=== PATIENT | male | born 1950 | race African-American/Black ===

== ENCOUNTER 2019-12-07 06:40 | Inpatient (IN) | payer OTHER ==
[2019-12-07] MEDS ORDERED: METOPROLOL TARTRATE 5 MG/5 ML INJ IV ONE ×2 (07:28→07:39)
[2019-12-07] MEDS ORDERED: NA CHLORIDE 0.9% 1,000 ML ONE (07:28)
[2019-12-07 07:43] LABS: Protime INR 1.02
[2019-12-07 07:48] LABS: Absolute Lymphocytes (CBC) 2.4 K/uL (0.7-4.9); Basophils % 1.2 % (0-1.3); Hematocrit 48.4 % (39.6-49.0); Lymphocytes % 32.2 % (15.3-44.8); MPV 10.1 fL (7.6-11.3); RBC Red Blood Cell Count 5.68 M/uL (4.33-5.43)
[2019-12-07] MEDS ORDERED: METOPROLOL TAR 50 MG TAB ONE (07:56)
[2019-12-07] MEDS ORDERED: ONDANSETRON 4 MG/2 ML VIAL ONE (07:57)
[2019-12-07] MEDS ORDERED: FENTANYL CITR 100 MCG/2 ML ONE (07:57)
[2019-12-07 08:00] LABS: Albumin 3.4 g/dL (3.4-5.0); Bilirubin Direct 0.1 mg/dL (0-0.2); Bilirubin Total 0.3 mg/dL (0.2-1.0); Magnesium 1.9 mg/dL (1.8-2.4); Potassium 3.7 mmol/L (3.5-5.1); Protein, Total 8.7 g/dL (6.4-8.2); Troponin (Emerg Dept Use Only) 0.26 ng/mL (0.0-0.045)
--- NOTE | 2019-12-07 08:48 | ER ---
Nurse's Notes [facility] Name: Julianna Kearns Age: 69 yrs Sex: Male : 1950 Arrival Date: 12/07/2019 Time: 06:43 Bed 6 Private MD: Bassam Donis E Diagnosis: Atrial fibrillation and flutter-atrial fibrilation with rapid ventricular response;Elevated troponin Presentation: 12/06 06:51 Chief complaint: Patient states: on and off, dull chest pain 10/10, since 3am with rv sweating. denies SOB, headache. took two adult Aspirins. Coronavirus screen: The patient has NOT traveled to a country currently being monitored by the [facility] within the last 14 days. Proceed with normal triage procedures. The patient has NOT had contact with any known and/or suspected case of coronavirus. Proceed with normal triage procedures. Ebola Screen: No symptoms or risks identified at this time. Initial Sepsis Screen: Does the patient meet any 2 criteria? No. Patient's initial sepsis screen is negative. Does the patient have a suspected source of infection? No. Patient's initial sepsis screen is negative. Risk Assessment: Do you want to hurt yourself or someone else? Patient reports no desire to harm self or others. 06:51 Method Of Arrival: Ambulatory rv 06:51 Acuity: VERONICA 3 rv 07:07 Onset of symptoms was December 06, 2019. rb1 Triage Assessment: 07:00 General: Appears in no apparent distress. comfortable, Behavior is calm, cooperative, bp appropriate for age. Pain: Denies pain. EENT: No deficits noted. Neuro: No deficits noted. Cardiovascular: Rhythm is atrial fibrillation with rapid ventricular response. Respiratory: No deficits noted. GI: No signs and/or symptoms were reported involving the gastrointestinal system. : No signs and/or symptoms were reported regarding the genitourinary system. Derm: No deficits noted. Musculoskeletal: No deficits noted. Historical: - Allergies: 06:54 PENICILLINS; rv - Home Meds: 07:42 carvedilol 25 mg oral tab 1 tab 2 times per day [Active]; empagliflozin oral 25 MG oral bp 0.5 tab once daily [Active]; glipizide 10 mg Oral tab 1 tab 2 times per day [Active]; Insulin Glargine 100 UNIT/ML Sub-Q 70 UNIT twice a day [Active]; losartan 50 mg oral tab 1 tab once daily [Active]; spironolactone 50 mg Oral tab 1 tab once daily [Active]; alprazolam 1 mg Oral Tb24 1 tab once daily [Active]; hydrochlorothiazide 25 mg Oral tab 1 tab once daily [Active]; rivaroxaban oral 20 MG oral 1 tab once daily [Active]; rosuvastatin 20 mg oral tab 0.5 tab once daily [Active]; - PMHx: 06:54 Hypertension; Atrial Fib; Diabetes - NIDDM; rv - PSHx: 06:54 None; rv - Immunization history:: Adult Immunizations up to date. - Social history:: Smoking status: Patient/guardian denies using tobacco, the patient reports quitting approximately 15 years ago. Screenin:00 Abuse screen: Denies threats or abuse. Denies injuries from another. Nutritional bp screening: No deficits noted. Tuberculosis screening: No symptoms or risk factors identified. Fall Risk None identified. Assessment: 07:00 General: SEE TRIAGE NOTE. Pain: Complains of pain in chest Pain does not radiate. Pain bp currently is 8 out of 10 on a pain scale. Pain began 1 day ago. 07:07 General: Appears in no apparent distress. comfortable, Behavior is calm, cooperative. rb1 Pain: Complains of pain in mid-sternal area Pain does not radiate. Pain currently is 8 out of 10 on a pain scale. Quality of pain is described as dull, Pain began 1 day ago. Neuro: Level of Consciousness is awake, alert, obeys commands, Oriented to person, place, time, situation. Neuro: Denies blurred vision dizziness, headache. Cardiovascular: Capillary refill < 3 seconds is brisk in bilateral fingers Rhythm is atrial fibrillation with rapid ventricular response. Respiratory: Airway is patent Respiratory effort is even, unlabored, Respiratory pattern is regular, symmetrical, Denies cough, shortness of breath. GI: No signs and/or symptoms were reported involving the gastrointestinal system. : No signs and/or symptoms were reported regarding the genitourinary system. Derm: Skin is dry, Skin is normal, Skin temperature is warm. 08:00 Reassessment: Patient appears in no apparent distress at this time. No changes from rb1 previously documented assessment. Family at the bedside. 09:00 Reassessment: Patient appears in no apparent distress at this time. Patient and/or rb1 family updated on plan of care and expected duration. Pain level reassessed. Patient is alert, oriented x 3, equal unlabored respirations, skin warm/dry/pink. Patient states feeling better. Patient states symptoms have improved. 09:08 Reassessment: Dr. Huston is at the pt. bedside. rb1 10:20 Reassessment: Tried to call report but was unable to at this time. They will call back rb1 for report when they find out what nurse is getting the pt. 10:50 Reassessment: Patient appears in no apparent distress at this time. Patient and/or rb1 family updated on plan of care and expected duration. Pain level reassessed. Patient is alert, oriented x 3, equal unlabored respirations, skin warm/dry/pink. Vital Signs: 06:55 BP 158 / 114; Pulse 140; Resp 19; Temp 97; Pulse Ox 100% ; Weight 96.16 kg; Height 6 rv ft. (182.88 cm); Pain 10/10; 07:30 BP 156 / 111; Pulse 141; Resp 20; Pulse Ox 99% ; bp 07:42 BP 154 / 94; Pulse 133; Resp 21; Pulse Ox 99% on R/A; rb1 08:00 BP 162 / 111; Pulse 130; Resp 20; Pulse Ox 99% on R/A; Pain 8/10; rb1 08:30 BP 126 / 90; Pulse 123; Resp 13; Pulse Ox 95% on R/A; rb1 09:00 BP 110 / 77; Pulse 128; Resp 18; Pulse Ox 96% on R/A; rb1 10:00 BP 133 / 94; Pulse 133; Resp 18; Pulse Ox 95% on R/A; rb1 10:43 BP 132 / 98; Pulse 130; Resp 18; Pulse Ox 95% on R/A; rb1 06:55 Body Mass Index 28.75 (96.16 kg, 182.88 cm) rv ED Course: 06:43 Patient arrived in ED. es 06:43 Bassam Donis MD is Private Physician. es 06:49 [facility] pm1 06:49 Teodoro Sommer MD is Attending Physician. pm1 06:53 Triage completed. rv 06:55 Arm band placed on Patient placed in the treatment room, on a stretcher, on cardiac rv monitor, on pulse oximetry, Patient notified of wait time. 06:56 EKG done, by ED staff, reviewed by Berry Almaraz NP. rv 07:00 Patient has correct armband on for positive identification. Bed in low position. Call bp light in reach. Side rails up X2. Adult w/ patient. quality assurance monitor final on. Pulse ox on. NIBP on. 07:21 Lydia Harding, RN is Primary Nurse. rb1 07:30 Inserted saline lock: 20 gauge in right forearm, using aseptic technique. Patient bp maintains SpO2 saturation greater than 95% on room air. 07:43 XRAY Chest (1 view) In Process Unspecified. EDMS 08:44 Inocencio Parkinson MD is Hospitalizing Provider. pm1 10:58 No provider procedures requiring assistance completed. Patient admitted, IV remains in rb1 place. Administered Medications: 07:31 Drug: NS 0.9% 1000 ml Route: IV; Rate: 1000 ml; Site: right wrist; rb1 08:43 Follow up: IV Status: Completed infusion rb1 07:31 Drug: Metoprolol 5 mg Route: IVP; Site: right wrist; rb1 07:36 Drug: Metoprolol 5 mg Route: IVP; Site: right wrist; rb1 07:42 Drug: Metoprolol 5 mg Route: IVP; Site: right wrist; rb1 08:24 Follow up: Response: No adverse reaction; decreased [id number]'s -140's rb1 07:55 Drug: Zofran (Ondansetron) 4 mg Route: IVP; Site: right wrist; rb1 08:10 Follow up: Response: No adverse reaction rb1 07:55 Drug: Metoprolol TARTRATE (Lopressor) 50 mg Route: PO; rb1 08:23 Follow up: Response: No adverse reaction rb1 08:00 Drug: fentaNYL (PF) 25 mcg Route: IVP; Site: right wrist; rb1 08:15 Follow up: Response: No adverse reaction; Pain is decreased; Pain 01/09 rb1 08:02 Not Given (provider changed order): fentaNYL (PF) 50 mcg IVP once; RASS on ADMIN: rb1 Combtv4, Very Agttd3, Agttd2, Rstlss1, AlertClm0, Drwsy-1, Lt Sdtn-2, Mod Sdtn-3, Dp Sdtn-4, UnArsble-5 08:22 Drug: fentaNYL (PF) 25 mcg Route: IVP; Site: right wrist; rb1 08:36 Follow up: Response: No adverse reaction; Pain is decreased rb1 Intake: Outcome: 08:48 Decision to Hospitalize by Provider. pm1 10:58 Patient left the ED. rb1 10:58 Admitted to Tele accompanied by tech, via stretcher, room 413, with chart, Report rb1 called to ERICA Acosta 10:58 Condition: stable 10:58 Instructed on the need for admit. Signatures: Dispatcher [employer] EDMS Alysia Delcid Rebecca, RN RN rb1 Berry Almaraz NP [employer] pm1 Stephen Silva RN RN bp Linden Rajan, RN RN rv Corrections: (The following items were deleted from the chart) 10:34 10:20 Reassessment: Tried to call report but was unable to at this time. rb1 rb1 11:16 11:13 Patient left the ED. rb1 rb1
--- NOTE | 2019-12-07 08:48 | EDPHYS ---
Physician Documentation [facility] Name: Julianna Kearns Age: 69 yrs Sex: Male : 1950 Arrival Date: 12/07/2019 Time: 06:43 Bed 6 Private MD: Bassam Donis E ED Physician Teodoro Sommer HPI: 12/06 07:44 This 69 yrs old Black Male presents to ER via Ambulatory with complaints of Chest Pain. pm1 07:44 The patient or guardian reports chest pain that is located primarily in the mid-sternal pm1 area. Onset: this morning, at 03:00. The pain radiates to back. Associated signs and symptoms: Pertinent positives: diaphoresis, Pertinent negatives: abdominal pain, cough, dizziness, nausea, palpitations, shortness of breath, vomiting. The chest pain is described as dull. Duration: The patient or guardian reports a single episode, that is still ongoing. Modifying factors: the symptoms are aggravated by exertion. Severity of pain: in the emergency department the pain is a 8 / 10. The patient has experienced similar episodes in the past, reports a history of "angina" that he attributes to cold weather and exertion that typically resolves with rest. His symptoms feel like his "angina" but it did not go away. Historical: - Allergies: 06:54 PENICILLINS; rv - Home Meds: 07:42 carvedilol 25 mg oral tab 1 tab 2 times per day [Active]; empagliflozin oral 25 MG oral bp 0.5 tab once daily [Active]; glipizide 10 mg Oral tab 1 tab 2 times per day [Active]; Insulin Glargine 100 UNIT/ML Sub-Q 70 UNIT twice a day [Active]; losartan 50 mg oral tab 1 tab once daily [Active]; spironolactone 50 mg Oral tab 1 tab once daily [Active]; alprazolam 1 mg Oral Tb24 1 tab once daily [Active]; hydrochlorothiazide 25 mg Oral tab 1 tab once daily [Active]; rivaroxaban oral 20 MG oral 1 tab once daily [Active]; rosuvastatin 20 mg oral tab 0.5 tab once daily [Active]; - PMHx: 06:54 Hypertension; Atrial Fib; Diabetes - NIDDM; rv - PSHx: 06:54 None; rv - Immunization history:: Adult Immunizations up to date. - Social history:: Smoking status: Patient/guardian denies using tobacco, the patient reports quitting approximately 15 years ago. ROS: 07:44 Constitutional: Negative for fever, chills, and weight loss. pm1 07:44 Respiratory: Negative for shortness of breath, cough, wheezing, and pleuritic chest pain, Abdomen/GI: Negative for abdominal pain, nausea, vomiting, diarrhea, and constipation. 07:44 MS/Extremity: Negative for injury and deformity, Skin: Negative for injury, rash, and discoloration. 07:44 Cardiovascular: Positive for chest pain, Negative for edema, palpitations. 07:44 Back: Positive for prior back pain that has resolved. 07:44 Neuro: Positive for headache, Negative for numbness, tingling, weakness. Exam: 07:44 Constitutional: This is a well developed, well nourished patient who is awake, alert, pm1 and in no acute distress. Head/Face: Normocephalic, atraumatic. Chest/axilla: Normal chest wall appearance and motion. Nontender with no deformity. No lesions are appreciated. Cardiovascular: Regular rate and rhythm with a normal S1 and S2. No gallops, murmurs, or rubs. No pulse deficits. Respiratory: Lungs have equal breath sounds bilaterally, clear to auscultation and percussion. No rales, rhonchi or wheezes noted. No increased work of breathing, no retractions or nasal flaring. Abdomen/GI: Soft, non-tender, with normal bowel sounds. No distension or tympany. No guarding or rebound. No evidence of tenderness throughout. Back: No spinal tenderness. No costovertebral tenderness. Full range of motion. Skin: Warm, dry with normal turgor. Normal color with no rashes, no lesions, and no evidence of cellulitis. MS/ Extremity: Pulses equal, no cyanosis. Neurovascular intact. Full, normal range of motion. 07:44 Neuro: Orientation: is normal, Mentation: is normal, Motor: is normal, moves all fours. Vital Signs: 06:55 BP 158 / 114; Pulse 140; Resp 19; Temp 97; Pulse Ox 100% ; Weight 96.16 kg; Height 6 rv ft. (182.88 cm); Pain 10/10; 07:30 BP 156 / 111; Pulse 141; Resp 20; Pulse Ox 99% ; bp 07:42 BP 154 / 94; Pulse 133; Resp 21; Pulse Ox 99% on R/A; rb1 08:00 BP 162 / 111; Pulse 130; Resp 20; Pulse Ox 99% on R/A; Pain 8/10; rb1 08:30 BP 126 / 90; Pulse 123; Resp 13; Pulse Ox 95% on R/A; rb1 09:00 BP 110 / 77; Pulse 128; Resp 18; Pulse Ox 96% on R/A; rb1 10:00 BP 133 / 94; Pulse 133; Resp 18; Pulse Ox 95% on R/A; rb1 10:43 BP 132 / 98; Pulse 130; Resp 18; Pulse Ox 95% on R/A; rb1 06:55 Body Mass Index 28.75 (96.16 kg, 182.88 cm) rv MDM: 06:49 Patient medically screened. pm1 07:49 Data reviewed: vital signs. pm1 07:49 ED course: Patient was not given ASA in the ER because he took it at home prior to pm1 arrival. Patient took 325 mg PO x 2. Patient forgot his night medications yesterday. 07:49 ED course: Patient took his own Xarelto 20 mg PO. pm1 08:09 ED course: Patient chest pain free after fentanyl. pm1 08:32 ED course: Patient currently chest pain free 0/10 after metoprolol and fentanyl given pm1 in the ER. Patient heart rate 110s to 120s with systolic blood pressure in the 130s. 08:37 Physician consultation: Inocencio Parkinson MD was called at 08:37, was contacted at 08:38, pm1 regarding admission, patient's condition, and will see patient. 08:40 Counseling: I had a detailed discussion with the patient and/or guardian regarding: the pm1 historical points, exam findings, and any diagnostic results supporting the discharge/admit diagnosis, lab results, radiology results, the need for further work-up and treatment in the hospital. 09:05 Physician consultation: Stas Huston MD in the emergency department to see patient at pm1 09:05. 12/06 06:50 Order name: Basic Metabolic Panel; Complete Time: 08:17 pm1 12/06 06:50 Order name: CBC with Diff; Complete Time: 08:17 pm1 03/07 06:50 Order name: LFT's; Complete Time: 08:17 pm1 12/06 06:50 Order name: Magnesium; Complete Time: 08:17 pm1 12/06 06:50 Order name: NT PRO-BNP; Complete Time: 08:17 pm1 12/06 06:50 Order name: PT-INR; Complete Time: 08:17 pm1 12/06 06:50 Order name: Troponin (emerg Dept Use Only); Complete Time: 08:17 pm1 12/06 06:50 Order name: XRAY Chest (1 view); Complete Time: 08:59 pm1 12/06 06:50 Order name: EKG; Complete Time: 06:51 pm1 12/06 06:50 Order name: Cardiac monitoring; Complete Time: 07:42 pm1 12/06 06:50 Order name: EKG - Nurse/Tech; Complete Time: 07:43 pm1 12/06 06:50 Order name: IV Saline Lock; Complete Time: 07:42 pm1 12/06 06:50 Order name: Labs collected and sent; Complete Time: 07:42 pm1 12/06 06:50 Order name: O2 Per Protocol; Complete Time: 07:42 pm1 12/06 06:50 Order name: O2 Sat Monitoring; Complete Time: 07:42 pm1 Administered Medications: 07:31 Drug: NS 0.9% 1000 ml Route: IV; Rate: 1000 ml; Site: right wrist; rb1 08:43 Follow up: IV Status: Completed infusion rb1 07:31 Drug: Metoprolol 5 mg Route: IVP; Site: right wrist; rb1 07:36 Drug: Metoprolol 5 mg Route: IVP; Site: right wrist; rb1 07:42 Drug: Metoprolol 5 mg Route: IVP; Site: right wrist; rb1 08:24 Follow up: Response: No adverse reaction; decreased [id number]'s -140's rb1 07:55 Drug: Zofran (Ondansetron) 4 mg Route: IVP; Site: right wrist; rb1 08:10 Follow up: Response: No adverse reaction rb1 07:55 Drug: Metoprolol TARTRATE (Lopressor) 50 mg Route: PO; rb1 08:23 Follow up: Response: No adverse reaction rb1 08:00 Drug: fentaNYL (PF) 25 mcg Route: IVP; Site: right wrist; rb1 08:15 Follow up: Response: No adverse reaction; Pain is decreased; Pain 01/09 rb1 08:02 Not Given (provider changed order): fentaNYL (PF) 50 mcg IVP once; RASS on ADMIN: rb1 Combtv4, Very Agttd3, Agttd2, Rstlss1, AlertClm0, Drwsy-1, Lt Sdtn-2, Mod Sdtn-3, Dp Sdtn-4, UnArsble-5 08:22 Drug: fentaNYL (PF) 25 mcg Route: IVP; Site: right wrist; rb1 08:36 Follow up: Response: No adverse reaction; Pain is decreased rb1 Disposition: 12/07/19 08:48 Hospitalization ordered by Inocencio Parkinson for Inpatient Admission. Preliminary diagnosis are Atrial fibrillation and flutter - atrial fibrilation with rapid ventricular response, Elevated troponin. - Bed requested for Telemetry/MedSurg (Inpatient). - Status is Inpatient Admission. rb1 - Condition is Fair. - Problem is new. - Symptoms have improved. Addendum: 12/22/2019 18:46 Co-signature as Attending Physician, Teodoro Sommer MD. p twan Signatures: Dispatcher [employer] EDMS Teodoro Sommer MD MD pkl Barber, Rebecca, ERICA RN rb1 Berry Almaraz, LUCIA MEDICAL EDITOR pm1 Stephen Silva, RN RN Brandy Elise Ronaldo, RN RN rv Corrections: (The following items were deleted from the chart) 12/06 10:00 08:48 Hospitalization Ordered by Inocencio Parkinson MD for Inpatient Admission. Preliminary eb diagnosis is Atrial fibrillation and flutter - atrial fibrilation with rapid ventricular response; Elevated troponin. Bed requested for Telemetry/MedSurg (Inpatient). Status is Inpatient Admission. Condition is Fair. Problem is new. Symptoms have improved. pm1 11:13 10:00 12/07/2019 08:48 Hospitalization Ordered by Inocencio Parkinson MD for Inpatient rb1 Admission. Preliminary diagnosis is Atrial fibrillation and flutter - atrial fibrilation with rapid ventricular response; Elevated troponin. Bed requested for Telemetry/MedSurg (Inpatient). Status is Inpatient Admission. Condition is Fair. Problem is new. Symptoms have improved. eb
--- NOTE | 2019-12-07 08:53 | RAD REPORT ---
EXAM DESCRIPTION: Laurynt Single View12/07/2019 7:44 am CLINICAL HISTORY: Chest pain COMPARISON: none FINDINGS: 15 millimeter nodular opacity overlies the left upper lobe. Remainder lungs appear clear. Heart is upper limits normal size. IMPRESSION: 15 millimeter nodular opacity overlying the left upper lobe probably calcified costal c artilage. However, pulmonary nodule has a similar appearance. It is recommended that the patient have an apical lordotic view for confirmation
[2019-12-07] MEDS ORDERED: SOTALOL HCL 80 MG TAB PO ONE (09:18)
[2019-12-07] MEDS ORDERED: NITROGLYCERIN 0.4 MG/TAB SL PRN (11:23)
[2019-12-07] MEDS ORDERED: D50W 25 GM/50 ML SYRINGE/VIAL IV PRN (11:23)
[2019-12-07] MEDS ORDERED: GLUCAGON 1 MG/VIAL IM PRN (11:23)
[2019-12-07] MEDS ORDERED: ACETAMINOPHEN 500 MG TAB PO PRN (11:23)
[2019-12-07] MEDS ORDERED: MORPHINE 4 MG/ML SYR IV PRN (11:23)
[2019-12-07 11:34] VITALS: BMI 28.7
[2019-12-07 12:30] LABS: Troponin I 2.94 ng/mL (0.0-0.045)
[2019-12-07] MEDS: INSULIN -REGULAR HUMAN 50 UNIT/0.5 ML ML SQ SCH ×3 (12:53→21:03)
--- NOTE | 2019-12-07 12:57 | CON ---
History Of Present Illness: Mr. Kearns is 69. This morning, he started to feel a pressure-like sens ation in his chest along with sweating and shortness of breath. He came to the ER and he has been fo und to be in AFib. He has been in AFib before, but maintained sinus rhythm most of the time. He nev er required a cardioversion. He was in AFib briefly and has been anticoagulated since it was discove red. Outpatient Medications: Coreg 25 b.i.d., empagliflozin 12.5 mg once daily, glipizide 10 mg twice a d ay, glargine insulin, losartan 50, spironolactone 50, alprazolam, hydrochlorothiazide, Xarelto 20 mg per day, and Crestor 10 mg a day. He has underlying diabetes, hypertension, dyslipidemia, and paroxysmal AFib. Physical Examination: General: He is alert, oriented, pleasant. He is not in distress. Vital Signs: Heart rate about 130, irregularly irregular. The QRS is wide, looks like it is probabl y a right bundle-branch block on the telemetry and EKG isn't available at the time of the exam. Bloo d pressure 158/114, heart rate 140, 96 kg, height 6 feet tall. He has received metoprolol. His pain is resolved. Impression: The patient's symptoms are due to atrial fibrillation. I am not certain yet if there is an acute coronary syndrome as well but looking at the EKG, I am not very suspicious. His initial tr oponin is 0.26. He may require a stress test or cardiac cath at some point in the near future that w e should continue the rivaroxaban, stop the Coreg and start giving him Betapace, I will recommend 120 mg twice a day and we will see if we can reestablish normal rhythm tomorrow, perhaps he can do an outpatient str ess test. BEBO/LORNE Voice ID: [id number] Report ID: [id number]
--- NOTE | 2019-12-07 14:06 | RAD REPORT ---
EXAM DESCRIPTION: RADChest Single View12/07/2019 12:57 pm CLINICAL HISTORY: Pulmonary nodule COMPARISON: Chest film earlier on the same date FINDINGS: Apical lordotic view of the chest obtained. Additionally frontal views obtained in inspira tion and expiration performed Previously described nodular opacity represents calcified costal cartilage
[2019-12-07] MEDS ORDERED: RIVAROXABAN 20 MG TABLET PO SCH (17:00)
[2019-12-07] MEDS: SOTALOL HCL 80 MG TAB PO SCH (17:46)
[2019-12-07] MEDS: HOME MED 1 EA UNK (Glipizide [Glipizide Er] 10 MG) PO SCH (21:00)
[2019-12-07] MEDS: INSULIN GLARGINE 100 UNITS/ML SQ SCH (21:03)
[2019-12-07] MEDS: ATORVASTATIN 40 MG TAB PO SCH (21:03)
--- NOTE | 2019-12-07 21:58 | HP ---
Date of Admission: 12/07/2019 Primary Care Physician: Dr. Donis. Consultants: Dr. Huston, Cardiology. Chief Complaint: Chest pain, palpitations. History Of Present Illness: Patient is a 69-year-old male with past medical history of hypertension; hyperlipidemia; diabetes; atrial fibrillation, on Xarelto, comes in with chest pain and palpitations since last night. Patient is unable to sleep, reported some nausea and diaphoresis along with his symptoms. His symptoms are constant, moderate, progressively worsening. Patient skipped his medications last night due to his acute illness. Otherwise , denies any fevers, chills, vomiting, or ill contacts. No cough or sputum production. In the ER, his heart rate was in the 140s. He was given metoprolol x3 and referred for admission. Aggravating symptoms include cold weather; however, at this time, did not improve with warming up. Patient's workup revealed elevated troponin level 0.26. His kidney function was elevated at 1.39. Chest x-ray was negative. He was then referred for admission. When seen in the ER, he was awake, alert, and oriented x3, not in any acute distress. Past Medical History: Hypertension; hyperlipidemia; diabetes mellitus type 2; non-insulin requiring; atrial fibrillation, on anticoagulation. Past Surgical History: None. Allergies: PENICILLIN CAUSES RASH AND HIVES. Social History: Patient denies any tobacco use. Does drink 3 cocktails a week. No illicit drug use. Patient is , has children, independent in his activities of daily living. He quit smoking about 15 years ago. Family History: Positive for MD, diabetes, and hypertension. Review of Systems: Ten-point system reviewed, negative except as per HPI. Physical Examination: Vital Signs: Blood pressure 158/114, pulse 140, respirations 19, temperature 97 , O2 100% on room air. GENERAL: Awake, alert, oriented x3. Some mild distress, ill-appearing elderly male. HEENT: Normocephalic, atraumatic. PERRLA. EOMI. Dry mucous membranes. Oropharynx is clear. Poor dentition. Conjunctivae anicteric. Neck: Supple. No JVD. Trachea midline. CV: S1, S2, irregularly irregular. Rapid rate. Peripheral pulses present. Respiratory: Moving air well bilaterally. No wheezing or stridor. No use of accessory muscles. Gastrointestinal: Abdomen is soft, nontender, nondistended. Positive bowel sounds. No guarding or rigidity. Extremities: No clubbing, cyanosis. Patient does have pedal edema. No calf tenderness. Neurologic: Cranial nerves 2 through 12 intact grossly. No focal neurological deficits. Speech is normal. Skin: No rashes. Normal skin turgor. Psychiatric: Mood is okay. Affect is full. Insight and judgment are good. Laboratory Data: INR 1.02. Sodium 138, potassium 3.7, chloride 103, CO2 of 25 , BUN 15, creatinine 1.39, glucose 245, calcium 9.5, magnesium 1.9. Troponin 0.26. WBC 7.4, H and H 15.4 48.4, platelets 216, neutrophils 54%. Chest x-ray shows 15 mm nodular opacity overlying the left upper lobe, probably calcified costal cartilage. However, pulmonary nodule has similar appearance. It was recommended patient has an apical lordotic view for confirmation. Assessment And Plan: 69-year-old male with: 1. Atrial fibrillation with rapid ventricular response. We will check TSH. Magnesium level is normal. Dr. Huston with Cardiology has been consulted. He recommends sotalol. We will continue anticoagulation with Xarelto. 2. Elevated troponin level, likely secondary to demand mismatch from atrial fibrillation with rapid ventricular response. Chest pain has subsided. Appreciate Cardiology input. We will continue home medications. 3. Essential hypertension. We will resume home medications as appropriate. 4. Mixed hyperlipidemia. Continue statin. 5. Diabetes mellitus type 2, non-insulin requiring. We will continue with sliding scale insulin and monitor blood glucose level. Plan: Admit patient to Med/Surg, place as observation. ADDENDUM: A/P: NSTEMI. SA/MODL Voice ID: [id number] SHANTANU
[2019-12-08] MEDS: SOTALOL HCL 80 MG TAB PO SCH ×2 (05:29→17:44)
[2019-12-08 05:40] LABS: Potassium 4.1 mmol/L (3.5-5.1); Thyroid Stimulating Hormone 1.57 uIU/mL (0.360-3.740)
[2019-12-08 05:49] LABS: Absolute Lymphocytes (CBC) 2.7 K/uL (0.7-4.9); Basophils % 0.8 % (0-1.3); Hematocrit 42.4 % (39.6-49.0); Lymphocytes % 34.1 % (15.3-44.8); MPV 10.5 fL (7.6-11.3); RBC Red Blood Cell Count 4.97 M/uL (4.33-5.43)
--- NOTE | 2019-12-08 06:29 | EKG ---
Test Date: 2019-12-07 Test Time: 06:56:03 Network Project Manager: NICOLA MEASUREMENT RESULTS: Intervals: Rate: 142 AL: QRSD: 94 QT: 286 QTc: 439 [place]: P: AL: QRS: -45 T: 122 INTERPRETIVE STATEMENTS: Atrial fibrillation with rapid ventricular response Left axis deviation Marked ST abnormality, possible lateral subendocardial injury Abnormal ECG Compared to ECG 01/26/2003 02:00:00 Left-axis deviation now present ST (T wave) deviation now present Sinus bradycardia no longer present T-wave abnormality no longer present Electronically Signed On 12-08-19 06:28:31 CDT by Stas Huston
[2019-12-08] MEDS: INSULIN -REGULAR HUMAN 50 UNIT/0.5 ML ML SQ SCH ×4 (07:30→21:00)
[2019-12-08] MEDS: EMPAGLIFLOZIN 12.5 MG PO SCH (08:50)
[2019-12-08] MEDS ORDERED: ALPRAZOLAM 1 MG PO SCH (09:00)
[2019-12-08] MEDS ORDERED: SPIRONOLACTONE 25 MG TABLET PO SCH (09:00)
[2019-12-08] MEDS ORDERED: HOME MED 1 EA UNK (Spironolactone [Spironolactone] 50 MG) PO SCH (09:00)
[2019-12-08] MEDS ORDERED: hydroCHLOROthiazide 25 MG TAB PO SCH (09:00)
[2019-12-08] MEDS: HOME MED 1 EA UNK (Glipizide [Glipizide Er] 10 MG) PO SCH ×2 (09:00→21:00)
[2019-12-08] MEDS ORDERED: LOSARTAN POTASSIUM 50 MG TABLET PO SCH (09:00)
[2019-12-08] MEDS: ASPIRIN EC 81 MG TAB PO SCH (09:06)
[2019-12-08] MEDS: INSULIN GLARGINE 100 UNITS/ML SQ SCH ×2 (09:08→22:18)
[2019-12-08] MEDS ORDERED: ENOXAPARIN 100 MG/ML SYR SQ SCH (10:12)
--- NOTE | 2019-12-08 12:49 | EKG ---
Test Date: 2019-12-07 Test Time: 21:44:01 Junior Database Administrator: RT MEASUREMENT RESULTS: Intervals: Rate: 63 RI: 176 QRSD: 88 QT: 456 QTc: 466 [place]: P: 58 RI: 176 QRS: -39 T: 125 INTERPRETIVE STATEMENTS: Normal sinus rhythm Possible Left atrial enlargement Left axis deviation T wave abnormality, consider lateral ischemia Prolonged QT Abnormal ECG Compared to ECG 12/07/2019 08:43:38 T-wave abnormality now present Prolonged QT interval now present Atrial fibrillation no longer present ST (T wave) deviation no longer present Possible ischemia still present Electronically Signed On 12-08-19 12:48:21 CDT by Stas Huston
--- NOTE | 2019-12-08 12:49 | EKG ---
Test Date: 2019-12-07 Test Time: 08:43:38 Baccarat Manager: CESAR MEASUREMENT RESULTS: Intervals: Rate: 118 ND: QRSD: 90 QT: 354 QTc: 496 [place]: P: ND: QRS: -40 T: 136 INTERPRETIVE STATEMENTS: Atrial fibrillation with rapid ventricular response Left axis deviation ST & T wave abnormality, consider lateral ischemia or digitalis effect Abnormal ECG Compared to ECG 12/07/2019 06:56:03 Possible ischemia now present ST (T wave) deviation still present Electronically Signed On 12-08-19 12:48:34 CDT by Stas Huston
--- NOTE | 2019-12-08 14:44 | PN ---
Date of Progress Note: 12/08/2019 Subjective: Patient seen and examined. Chart reviewed and case discussed with RN and Dr. Huston. Patient denies any chest pain. Heart rate is better controlled, back in sinus rhythm. Medications: List reviewed. Physical Examination: Vital Signs: Temperature 96.9, heart rate 64, blood pressure 161/90, respirations 17, O2 of 92% on room air. General: Awake, alert, oriented x3. Not in any acute distress. Elderly male, ill-appearing. CV: S1, S2. Normal sinus rhythm. Peripheral pulses present. Respiratory: Moving air well bilaterally. No wheezing or stridor. No use of accessory muscles. Gastrointestinal: Abdomen is soft, nontender, nondistended. Positive bowel sounds. Extremities: No clubbing, cyanosis. No edema. Neurologic: Cranial nerves 2 through 12 intact grossly. No focal neurological deficit. Laboratory Data: Sodium 139, potassium 4.1, chloride 108, CO2 of 26, BUN 20, creatinine 1.45, glucose 160, calcium 8.4. Troponin 18. TSH 1.57. WBC 7.8, H and H 13.5 and 42.4, platelets 182, neutrophils 50%. Assessment: 69-year-old male with: 1. Atrial fibrillation with rapid ventricular response. TSH is normal. Magnesium level checked. Patient is started on sotalol by Cardiology. Appreciate Dr. Huston' input. We will continue anticoagulation. Switch over to Lovenox. 2. Pdz-AJ-ktgfzvvca myocardial infarction. Plan is for cardiac catheterization in a.m. Continue with Lovenox for now. No chest pain. We will repeat EKG this morning. 3. Essential hypertension. We will adjust medications, somewhat uncontrolled in the 160s. 4. Mixed hyperlipidemia. Continue statin. 5. Diabetes mellitus type 2, non-insulin requiring. We will continue sliding scale insulin and monitor blood glucose levels. 6. Deep vein thrombosis prophylaxis addressed. Plan: Anticipate heart catheterization. /LORNE Voice ID: [id number] Report ID: [id number] SHANTANU
[2019-12-08] MEDS: NA CHLORIDE 0.9% 1,000 ML IV SCH (15:06)
[2019-12-08] MEDS: HYDRALAZINE HCL 10 MG TABLET PO SCH ×2 (15:06→21:25)
--- NOTE | 2019-12-08 17:17 | PN ---
Mr. Kearns no longer has any chest pain. He is in sinus rhythm. His troponins have gone up dramatic ally in the past. He has refused to have a cardiac cath. I recommended doing a cardiac cath and he agrees to proceed. He has definitely had a myocardial infarction, may be mostly a situation where th e lesion that does not bother him very much, was capable of causing myocardial necrosis because of he art rate being so high during atrial fib, not expected to find a totally occluded artery. I have rec ommended cardiac cath, possible stent. We will get no more Xarelto this hospitalization. He will ge t one most dose of Lovenox today at 6 a.m., late morning, noon to early afternoon tomorrow, will be o ff any anticoagulation long enough that we feel safe to do a cardiac cath and possible stent. We kush l give him Mucomyst because of his creatinine being 1.45. We will do an echocardiogram tomorrow. Av oid giving the large bolus of dye that we give when we do a left ventriculogram. BEBO/LORNE Voice ID: [id number] Report ID: [id number]
[2019-12-08] MEDS ORDERED: ENOXAPARIN 100 MG/ML SYR SQ ONE (18:00)
--- NOTE | 2019-12-08 18:35 | CON ---
Date of Consultation: 12/08/2019 Reason For Consultation: Elevated BUN and creatinine. 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 Primary workup showed elevation in BUN an d creatinine. For that reason, we have been consulted. Also primary workup showed elevation on the troponin. Patient planned for cardiac cath tomorrow. Patient denied taking any nonsteroidal, recent change in his blood pressure medication. According to him, no recent exposure for IV contrast. His medications at home include losartan and spironolactone with hydrochlorothiazide. Past Medical History: Includes: 1.Hypertension. 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 3.Atrial fibrillation. Surgical History: Negative. Allergies: PENICILLIN. Social History: Active drinking. Denies smoking. Denies drug abuse. Family History: Positive for coronary artery disease and diabetes. Review of Systems: Head and Neck: No red eye. No ear pain. GI: No nausea. No vomiting. : No polyuria, no dysuria, no hematuria. Neonatologist: Not applicable. Respiratory: No shortness of breath. Cardiovascular: Has palpitation. Has chest tightness. Endocrine: No polydipsia. Skin: No rash. Neuro: Has neuropathy. Musculoskeletal: No joint pain. Home Medications: Include rosuvastatin, Xarelto, hydrochlorothiazide, alprazolam, spironolactone, lo sartan, insulin, glipizide, Jardiance, and carvedilol. Current Medications In The Hospital: Include hydrochlorothiazide, insulin, losartan, spironolactone. Physical Examination: Vital Signs: When I saw the patient blood pressure 154/87, pulse of 62, afebrile. Chest: Clear to auscultation. Heart: S1, S2, irregular, tachy, Abdomen: Soft, nontender. Extremities: No edema. Neuro: Alert, oriented. No focal. Laboratory Data: WBC 7.8, H and H 13.5/42.4, platelet 182. Sodium 139, potassium 4.1, bicarb 26, BU N 20, creatinine 1.4. GFR of 85. Troponin 18. TSH 1.5. Assessment And Plan: 1.Acute kidney injury, unknown baseline. His creatinine back in 2016 was within normal limit. Poss ible secondary to cardiorenal superimposed with losartan, spironolactone, and prerenals with hydrochl orothiazide. Plan for cardiac cath. I had long discussion with the patient about risk, benefit, alt ernative with contrast exposure, especially with the presence of acute kidney injury. I explained to him unfortunately he needs given the troponin leak. Patient agreed on the plan. We will start the patient on IV hydration and we will monitor the patient closely. I am going to go ahead and disconti nue losartan, discontinue spironolactone and hydrochlorothiazide and we will monitor the patient. I am going to go ahead and send for protein creatinine, basic workup, and we will follow up the patient closely. 2.Hypertension with the presence of acute kidney injury and possible exposure to contrast. I am goi ng to discontinue ARB, spironolactone, and hydrochlorothiazide. Start the patient on hydration. I g oing to go ahead and continue beta abbey. Add hydralazine for better blood pressure control and we will follow up the patient. 3.Coronary artery disease, non-ST elevation myocardial infarction. Follow up with Cardiology. Tresa ent planned for cardiac cath as above. I do not see the need for Mucomyst as there is no data to sup port it. We will continue with normal saline hydration. OSVALDO Voice ID: [id number] Report ID: [id number]
--- NOTE | 2019-12-08 20:46 | RAD REPORT ---
EXAM DESCRIPTION: US - Renal Ultrasound-Complete - 12/08/2019 8:30 pm CLINICAL HISTORY: KAITLIN Flank pain COMPARISON: No comparisons FINDINGS: Both kidneys are normal in size, shape and echotexture. The right kidney measures 11.0 x 5.6 x 4.6 cm. No hydronephrosis, focal mass or perinephric fluid. The left kidney measures 10.4 x 5.7 x 5.3 cm. No hydronephrosis, focal mass or perinephric fluid. The urinary bladder is incompletely distended without gross abnormality seen. IMPRESSION: Unremarkable renal sonogram.
[2019-12-08] MEDS: ACETYLCYST 20% 800 MG/4 ML VIAL PO SCH (21:00)
[2019-12-08] MEDS: ATORVASTATIN 40 MG TAB PO SCH (21:25)
[2019-12-09] MEDS: SOTALOL HCL 80 MG TAB PO SCH ×2 (05:26→18:00)
[2019-12-09 05:41] LABS: Absolute Lymphocytes (CBC) 2.3 K/uL (0.7-4.9); Hematocrit 45.3 % (39.6-49.0); Lymphocytes % 22.1 % (15.3-44.8); MPV 9.8 fL (7.6-11.3); RBC Red Blood Cell Count 5.29 M/uL (4.33-5.43)
[2019-12-09 06:00] LABS: Albumin 3.3 g/dL (3.4-5.0); Magnesium 2.1 mg/dL (1.8-2.4); Phosphorus 2.9 mg/dL (2.5-4.9); Potassium 4.5 mmol/L (3.5-5.1)
[2019-12-09] MEDS: HYDRALAZINE HCL 20 MG/ML VIAL IV PRN ×2 (06:38→18:55)
[2019-12-09 07:20] LABS: Urine Appearance CLEAR; Urine Bilirubin NEGATIVE (NEG); Urine Blood NEGATIVE (NEG); Urine Color YELLOW; Urine Glucose 3+ (NEG); Urine Protein 2+ (NEG); Urine Specific Gravity 1.015 (1.005-1.030); Urine Urobilinogen 0.2 mg/dL (0.2-1.0)
[2019-12-09 07:22] LABS: Urine Microscopic Reflex ORDER UMIC
[2019-12-09 07:29] LABS: Urine Protein/Creatinine Ratio 1.94 ratio (<0.15)
[2019-12-09] MEDS: INSULIN -REGULAR HUMAN 50 UNIT/0.5 ML ML SQ SCH ×4 (07:30→21:00)
[2019-12-09 07:35] LABS: Urine Bacteria NONE SEEN /HPF (NONE SEEN); Urine Culture Reflex Order NOT NEEDED; Urine RBC <5 /HPF (NONE SEEN)
[2019-12-09] MEDS: ALPRAZOLAM 1 MG TABLET PO SCH (08:27)
[2019-12-09] MEDS: ASPIRIN EC 81 MG TAB PO SCH (08:28)
[2019-12-09] MEDS: INSULIN GLARGINE 100 UNITS/ML SQ SCH ×2 (08:28→21:00)
[2019-12-09] MEDS: HYDRALAZINE HCL 10 MG TABLET PO SCH ×3 (08:28→21:00)
[2019-12-09] MEDS: EMPAGLIFLOZIN 12.5 MG PO SCH (09:00)
[2019-12-09] MEDS: NA CHLORIDE 0.9% 1,000 ML IV SCH (10:00)
--- NOTE | 2019-12-09 10:42 | ECHO ---
HEIGHT: 6 ft 0 in WEIGHT: 213 lb 8 oz DATE OF STUDY: 12/09/[address]: Inocencio Parkinson MD 2-DIMENSIONAL: YES M.MODE: YES DOPPLER: YES COLOR FLOW: YES TDS: NO PORTABLE: NO DEFINITY: NO BUBBLE STUDY: NO DIAGNOSIS: CHEST PAIN CARDIAC HISTORY: CATHERIZATION: NO SURGERY: NO PROSTHETIC VALVE: NO PACEMAKER: NO MEASUREMENTS (cm) DIASTOLIC (NORMALS) SYSTOLIC (NORMALS) IVSd 1.2 (0.6-1.2) LA Diam 3.9 (1.9-4.0) LVEF 70% LVIDd 3.8 (3.5-5.7) LVIDs 2.4 (2.0-3.5) %FS 39% LVPWd 1.2 (0.6-1.2) Ao Diam 3.0 (2.0-3.7) 2 DIMENSIONAL ASSESSMENT: RIGHT ATRIUM: NORMAL LEFT ATRIUM: NORMAL RIGHT VENTRICLE: NORMAL LEFT VENTRICLE: LEFT VENTRICULAR HYPERTROPHY TRICUSPID VALVE: NORMAL MITRAL VALVE: MITRAL ANNULAR CALCIFICATION PULMONIC VALVE: NORMAL AORTIC VALVE: STENOSIS PERICARDIAL EFFUSION: NONE AORTIC ROOT: NORMAL LEFT VENTRICULAR WALL MOTION: NORMAL DOPPLER/COLOR FLOW: IMPAIRED LEFT VENTRICULAR RELAXATION. MILD AORTIC STENOSIS. PEAK/ MEAN GRADIENT 24/12. ESTIMATED AORTIC VALVE AREA 1.6 CENTIMETERS SQUARED. NO AORTIC REGURGITATION. COMMENTS: NORMAL LEFT VENTRICULAR EJECTION FRACTION. LEFT VENTRICULAR HYPERTROPHY. MITRAL ANNULAR CALCIFICATION. MILD AORTIC STENOSIS. TECHNOLOGIST: Joaquina MARQUEZ
[2019-12-09] MEDS: ACETYLCYST 20% 800 MG/4 ML VIAL PO SCH ×2 (11:39→21:00)
[2019-12-09] MEDS ORDERED: HEPA 1000U/500MLS 2,000 UNIT/1,000 ML BAG IV ONE (12:16)
[2019-12-09] MEDS ORDERED: MORPHINE 2 MG/ML SYR IV PRN (15:00)
[2019-12-09] MEDS ORDERED: HEPARIN 5000 UNIT/ML 1 ML VIAL ONE (15:16)
[2019-12-09] MEDS ORDERED: NA CHLORIDE 0.9% 50 ML ONE ×2 (15:17→16:34)
[2019-12-09] MEDS ORDERED: MIDAZOLAM HCL 2 MG/2 ML INJ ONE (15:17)
[2019-12-09] MEDS ORDERED: NICARDIPINE HCL 25 MG/10 ML IV ONE (15:17)
[2019-12-09] MEDS ORDERED: ATROPINE SULF 1 MG/10 ML SYR IV ONE (15:17)
[2019-12-09] MEDS ORDERED: NITROGLYCERIN 100 MCG/ML SYR (for cath lab use only) IV ONE (15:17)
[2019-12-09] MEDS ORDERED: FENTANYL CITR 100 MCG/2 ML ONE (15:17)
[2019-12-09] MEDS ORDERED: HYDRALAZINE HCL 20 MG/ML VIAL ONE ×3 (15:37→18:59)
[2019-12-09] MEDS ORDERED: ASPIRIN 81 MG CHEWABLE TABLET ONE (16:48)
[2019-12-09] MEDS ORDERED: PRASUGREL (EFFIENT) 10 MG TAB ONE (16:49)
[2019-12-09] MEDS: GLIPIZIDE S.A. 5 MG TAB PO SCH (17:00)
[2019-12-09] MEDS ORDERED: D50W 25 GM/50 ML SYRINGE/VIAL IV ONE (18:43)
[2019-12-09] MEDS ORDERED: ONDANSETRON 4 MG/2 ML VIAL ONE (18:46)
[2019-12-09] MEDS ORDERED: ATORVASTATIN 40 MG TAB PO SCH (21:00)
--- NOTE | 2019-12-09 21:47 | PN ---
Date of Progress Note: 12/09/2019 Subjective: Patient is seen and examined. Chart reviewed and case discussed with RN and Dr. Huston. Patient had cardiac catheterization today with 2 stents placed. Medications: List reviewed. Physical Examination: Vital Signs: Temperature 98.4, heart rate 72, blood pressure 179/90, respirations 18, O2 90% on room air. General: Awake, alert, oriented x3, not in any acute distress, elderly male. CV: S1, S2. Regular rate and rhythm. Peripheral pulses present. Respiratory: Moving air well bilaterally. No wheezing or stridor. Gastrointestinal: Abdomen is soft, nontender, nondistended. Positive bowel sounds. Extremities: No clubbing, cyanosis, or edema. Neurologic: Nonfocal. Laboratory Data: Sodium 138, potassium 4.5, chloride 105, CO2 of 31, BUN 18, creatinine 1.29, glucose 100, calcium 9.3, phosphorus 2.9, magnesium 2.1, albumin 3.3. WBC 10.2, H and H 14.6 and 45.3, platelets 209. Echocardiogram shows EF of 70%, left ventricular hypertrophy. Renal ultrasound shows unremarkable renal sonogram. Assessment: 69-year-old male with: 1. Non-ST segment elevation myocardial infarction, status post cardiac catheterization with stent x2. We will continue with chest pain guidelines, aspirin, statin, beta-abbey. Appreciate Dr. Huston' input. 2. Atrial fibrillation with rapid ventricular response, now back in sinus rhythm. Continue with Betapace and will resume anticoagulation with Xarelto. 3. Essential hypertension, stable. Medications adjusted. Use hydralazine p.r.n. 4. Mixed hyperlipidemia. Continue statin. 5. Diabetes mellitus type 2, non-insulin requiring. Continue sliding scale insulin. Monitor blood glucose levels. 6. Deep venous thrombosis prophylaxis addressed. 7. Hypertensive heart disease. 8. COPD chronic bronchitis. Patient was a long time smoker. Has never had PFTs before and no official diagnosis. Will need out pt pulmonology follow up. Will cont nebs. Plan: Likely discharged in a.m. if continues to improve and chest pain-free. SA/MODL Voice ID: [id number] Report ID: [id number] [facility]PITALMarbella
[2019-12-09] MEDS ORDERED: ACETYLCYST 6,000 MG/30 ML VIAL ONE (22:06)
[2019-12-09] MEDS ORDERED: SOTALOL HCL 80 MG TAB PO ONE (22:18)
--- NOTE | 2019-12-10 02:39 | PN ---
Date of Progress Note: 12/08/2019 Chief Complaint: Elevated BUN and creatinine. History Of Present Illness: Patient was found to have acute on chronic kidney injury. He has multiple medical problems including hypertension, questionable retinopathy, neuropathy, history of diabetes mellitus since 2009, atrial fibrillation, coronary artery disease. Patient was complaining of shortness of breath and palpitation history. He was found to have atrial fibrillation with rapid ventricular response. Patient was found to have elevated BUN and creatinine level. Patient has significant coronary artery disease. He underwent stent placement, angiogram for coronary artery disease. Patient will continue Mucomyst. Patient has history of acute kidney injury. Creatinine was 1.4 and BUN is 20. There is no previous records on files to assess previous baseline. Patient is on Losartan, spironolactone for history of hypokalemia and congestive heart failure, although he is also taking hydrochlorothiazide. Review of Systems: Denies PND or orthopnea. Physical Examination: Lungs: Clear to auscultation bilaterally. Heart: S1, S2. Abdomen: Soft, benign. Extremities: Minimal edema. Laboratory Data: BUN 28, creatinine is 1.4, potassium 4.1, sodium 139. Impression And Plan: 1. Hypertension. Angiotensin receptor abbey and spironolactone, hydrochlorothiazide are on hold due to acute kidney injury. Patient is undergoing cardiac workup. He will need Mucomyst and mild hydration. 2. Patient was found to have non-ST elevation myocardial infarction, is undergoing cardiac catheterization. Further recommendation from primary team and cardiology. I spent total 36 min including 25 min to coordinate care plan. STEPHANIE/LORNE Voice ID: [id number] Report ID: [id number] SHANTANU
--- NOTE | 2019-12-10 03:54 | OP ---
Surgeon: Stas Huston MD Identification: A 69-year-old man. Procedure: Left heart catheterization with coronary angiography. No left ventriculogram was done to reduce the dye load. As a result of the procedure, he received over 350 mL of contrast material. W e did percutaneous coronary intervention stents of the proximal circumflex, 90% lesion was reduced to 10%, in the proximal part of large OM, it had less than 10% residual stenosis. Procedure Findings: The patient has diffuse CAD. In the mid right coronary, there is a 60% to 70% s mooth stenosis, rather small vessel and we did not treat it because we spent so much time and used so much contrast to treat the other 2. It can be staged. The LAD and left main had calcification and plaquing, but no significant stenosis. The proximal circumflex had a 90% stenosis and the proximal o btuse marginal also had a 90% stenosis and after treatment, these had less than 10% residual stenosis . Procedure In Detail: The patient had evidence of a non-ST elevation [place] associated with atrial fibril lation. He came to the cath lab manager in sinus rhythm, fasting, sedated with Versed and fentanyl, prepared and draped in usual sterile fashion. Right radial approach was used. We anesthetized the skin over the right radial artery with lidocaine. Inserted a 21-gauge needle into the right radial artery, ca nnulated the artery with a 0.021 inch diameter guidewire and then placed a 5/6-Yoruba Terumo sheath. We flushed the sheath and gave a radial cocktail consisting of heparin, nitroglycerin, and nicardipi ne. A TIG catheter was guided into the ascending aorta and we did angiography with the TIG catheter, we avoided doing a left ventriculogram in order to minimize contrast. After this decision was made to stent the circumflex and OM, we used an exchange wire and exchanged for an XB 3.5 with side holes. This cannulated the ostium adequately. We crossed the lesion with a [place] wire and several times, the wire became dislodged and had to be replaced, but this was done without complications. A stent would not cross either lesion, so we pre-dilated the lesion in the circumflex trunk with 3.5 x 8 Rachael ge balloon in the more distal lesion in the obtuse marginal. We pre-dilated with a 3.0 x 12 Emerge b alloon, both to 14 atmospheres. We were then able to place a 3.0 x 12 Synergy stent, inflated to 14 atmospheres in the obtuse marginal and a 3.0 x 16 Synergy inflated to 16 atmospheres in the proximal circumflex, good stent apposition, good angiographic result. At the end of the procedure, we took a picture with wire removed. A very good angiographic result was obtained. There were no complication s. Estimated Blood Loss: 60 mL. Contrast Used: Over 350 mL. Poultry Barn Manager: Forest Kumar. BEBO/LORNE Voice ID: [id number] Report ID: [id number]
[2019-12-10 05:40] LABS: Absolute Lymphocytes (CBC) 2.1 K/uL (0.7-4.9); Basophils % 0.7 % (0-1.3); Hematocrit 42.8 % (39.6-49.0); MPV 9.7 fL (7.6-11.3); RBC Red Blood Cell Count 4.95 M/uL (4.33-5.43)
[2019-12-10] MEDS: SOTALOL HCL 80 MG TAB PO SCH ×2 (05:49→17:34)
[2019-12-10 05:54] LABS: Albumin 2.7 g/dL (3.4-5.0); Magnesium 2.4 mg/dL (1.8-2.4); Phosphorus 3.3 mg/dL (2.5-4.9); Potassium 3.9 mmol/L (3.5-5.1)
[2019-12-10] MEDS: INSULIN -REGULAR HUMAN 50 UNIT/0.5 ML ML SQ SCH ×3 (07:30→16:12)
[2019-12-10] MEDS: ASPIRIN EC 81 MG TAB PO SCH (08:22)
[2019-12-10] MEDS: ALPRAZOLAM 1 MG TABLET PO SCH (08:23)
[2019-12-10] MEDS: HYDRALAZINE HCL 10 MG TABLET PO SCH ×2 (08:23→13:38)
[2019-12-10] MEDS: EMPAGLIFLOZIN 12.5 MG PO SCH (08:25)
[2019-12-10] MEDS: INSULIN GLARGINE 100 UNITS/ML SQ SCH (08:25)
--- NOTE | 2019-12-10 08:55 | EKG ---
Test Date: 2019-12-08 Test Time: 08:19:14 Summer Sessions Director: WHITNEY Day MEASUREMENT RESULTS: Intervals: Rate: 66 [place]: 160 QRSD: 98 QT: 462 QTc: 484 [place]: P: 68 [place]: 160 QRS: -27 T: 139 INTERPRETIVE STATEMENTS: Normal sinus rhythm Possible Left atrial enlargement ST & T wave abnormality, consider lateral ischemia Prolonged QT Abnormal ECG Compared to ECG 12/07/2019 21:44:01 ST (T wave) deviation now present Left-axis deviation no longer present T-wave abnormality no longer present Possible ischemia still present Electronically Signed On 12-10-19 08:53:18 CDT by Raghav Muñoz
[2019-12-10] MEDS ORDERED: CLOPIDOGREL 75 MG TABLET PO SCH (09:00)
[2019-12-10] MEDS ORDERED: ACETYLCYST 6,000 MG/30 ML VIAL PO SCH (09:00)
[2019-12-10] MEDS ORDERED: LOSARTAN POTASSIUM 50 MG TABLET PO SCH (09:00)
[2019-12-10] MEDS ORDERED: ACETYLCYST 20% 800 MG/4 ML VIAL PO SCH (09:00)
[2019-12-10] MEDS: GLIPIZIDE S.A. 5 MG TAB PO SCH ×2 (09:44→17:34)
--- NOTE | 2019-12-10 10:27 | P.PN ---
Date of Service: 12/10/19 ADDENDUM COPD Patient requiring supplemental O2. Given recent cardiac stents, afib he will need continued O2 supplementation at home which can be titrated. Will have social media analyst set up for home oxygen prior to discharge
[2019-12-10] MEDS: NA CHLORIDE 0.9% 1,000 ML IV SCH (13:38)
--- NOTE | 2019-12-10 14:30 | PN ---
Date of Progress Note: 12/10/2019 Subjective: Mr. Kearns is a 69-year-old, who was admitted with non-ST elevation myocardial infarctio n, acute kidney injury, hypertension, atrial fibrillation. He is on Betapace 120 b.i.d. and in sinus rhythm. Remains hypertensive. Remains slightly hypoxic. There is a plan for him to go home on brant e oxygen. An echocardiogram showed mild aortic stenosis, left ventricular hypertrophy, decreased lef t ventricular compliance with normal ejection fraction. Yesterday, he had a circumflex stent by Dr. Huston. Plan: For him is to be on aspirin and Plavix for about 3 months, then get off the Plavix, and then g et him back on Xarelto. Continue the Betapace. Hopefully arrange for home oxygen. Consider further therapy for his blood pressure. He can go home today and we will see him in the office in the next 2 to 4 weeks. PRESLEY/LORNE Voice ID: [id number] Report ID: [id number]
[2019-12-10] MEDS ORDERED: FUROSEMIDE 20 MG/ 2ML VIAL IV ONE (15:00)
--- NOTE | 2019-12-10 15:08 | P.PN ---
Subjective Date of Service: 12/10/19 Chief Complaint: NSTEMI Subjective: Improving (Patient seen and examined. Chart reviewed and case discussed w RN and Dr. Muñoz. No acute events overnight.) Review of Systems 10-point ROS is otherwise unremarkable Physical Examination - Vital Signs Temperature: 97.8 F Blood Pressure: 122/68 Pulse: 55 Respirations: 14 Pulse Ox (%): 95 - Physical Exam General: Alert, In no apparent distress, Oriented x3 HEENT: Atraumatic, PERRLA, EOMI Neck: Supple Respiratory: Clear to auscultation bilaterally, Normal air movement Cardiovascular: Regular rate/rhythm, Normal S1 S2 Gastrointestinal: Normal bowel sounds, Soft and benign, Non-distended, No tenderness Musculoskeletal: No tenderness Integumentary: No rashes Neurological: Normal speech, Normal tone, Normal affect - Studies Medications List Reviewed: Yes Assessment And Plan - Plan Assessment: 69-year-old male with: 1. Non-ST segment elevation myocardial infarction, status post cardiac catheterization with stent x2. We will continue with chest pain guidelines, aspirin, statin, beta-abbey. Appreciate Dr. Huston' input. 2. Atrial fibrillation with rapid ventricular response, now back in sinus rhythm. Continue with Betapace and will resume anticoagulation with Xarelto. 3. Essential hypertension, stable. Medications adjusted. Use hydralazine p.r.n. 4. Mixed hyperlipidemia. Continue statin. 5. Diabetes mellitus type 2, non-insulin requiring. Continue sliding scale insulin. Monitor blood glucose levels. 6. Deep venous thrombosis prophylaxis addressed. 7. Hypertensive heart disease. 8. COPD chronic bronchitis. Patient requiring supplemental O2. Will need to continue home O2. Room air sat <88%. Patient was a long time smoker. Has never had PFTs. Will need out pt pulmonology follow up. Will cont nebs. Discharge Plan: Home - Code Status/Comfort Care Code Status Assessed: Yes
[2019-12-10 16:18] VITALS: O2SAT 98
[2019-12-10 16:21] VITALS: BP 143/72; TEMP 97.3
--- NOTE | 2019-12-10 23:01 | DS ---
Date of Discharge: 12/10/2019 Consultants: 1.Dr. Costa and Dr. Mitchell with Nephrology. 2.Dr. Huston with Cardiology. Procedures: Cardiac catheterization on 12/09/2019, with stents in the proximal circumflex and proxim al obtuse marginal. Admitting Diagnoses: 1.Atrial fibrillation with rapid ventricular response. 2.Non-ST segment elevation myocardial infarction. 3.Essential hypertension. 4.Mixed hyperlipidemia. 5.Diabetes mellitus type 2 [id number]-lulynhscm. Discharge Diagnoses: 1.Non-ST segment elevation myocardial infarction status post stent x2. 2.Atrial fibrillation with rapid ventricular response, improved. 3.Essential hypertension, stable. 4.Hyperlipidemia, on statin. 5.Diabetes mellitus type 2 dgj-xybsdjj-kfyewvoxg, stable. 6.Hypertensive heart disease. 7.Chronic obstructive pulmonary disease, chronic bronchitis. Hospital Course: Patient is a 69-year-old male with past medical history of hypertension, hyperlipid emia, diabetes, atrial fibrillation on Xarelto, came in with chest pain and palpitations. The patien t found to be in atrial fibrillation with RVR rate in the 140s. Metoprolol was given, however, did n ot improve. He did have cardiac enzyme leak of 0.26 and subsequent levels went up and he was thought to have NSTEMI. He was started on chest pain guidelines. Xarelto was held and he switched over to therapeutic Lovenox. He was taken for cardiac catheterization by Dr. Huston, who placed 2 stents as mentioned above. Patient's echocardiogram showed an ejection fraction of 70% and left ventricular hy pertrophy, mitral annular calcification, and mild aortic stenosis. Patient did have some elevation i n his kidney function especially secondary to contrast. His kidney function had to be monitored. He was seen by Nephrology, was given IV fluids. Kidney function remained stable around 1.44. Patient has been a long-term smoker. He likely has COPD, which has never been officially diagnosed. We genna mmend PFTs as an outpatient. Patient was requiring oxygen and will continue to need oxygen at home, especially given his recent cardiac stents. Patient will be set up with home O2 prior to discharge. Condition: Stable. Activity: As tolerated. Medications: As per medication reconciliation list. The patient to stop his Xarelto for the next 3 months. He is on aspirin and Plavix with his recent stents. Sotalol was increased to 120. Diet: Heart healthy diabetic diet. Activity: As tolerated. Followup: Follow up with the primary care physician in 2-3 days. Follow up with press supervisor, Dr. Alexandra fall in 2 weeks. Follow up with manager intensive care unit to establish care and have PFTs done, raulito Lott 2 weeks. Return to ER for worsening condition. Physical Examination: General: Awake, alert, and oriented x3, not in any acute distress. CV: S1, S2. Respiratory: Moving air well bilaterally. Abdomen: Abdomen is soft, nontender, nondistended. Positive bowel sounds. Extremities: No clubbing, cyanosis, or edema. Neurologic: Nonfocal. Total time spent discharging patient was 41 minutes. /LORNE Voice ID: [id number] Report ID: [id number]
--- NOTE | 2019-12-11 02:52 | PN ---
Date of Progress Note: 12/10/2019 Subjective: Patient was admitted with acute kidney injury, sepsis. Patient underwent also cardiac cath because of non-ST elevation CO. Physical Examination: Vital Signs: When I saw the patient, blood pressure 143/72, pulse of 59. Chest: Clear to auscultation. Heart: S1, S2. Regular. Abdomen: Soft, nontender. Extremities: No edema. Laboratory Data: Sodium 138, potassium 3.9, bicarb 29, BUN 18, creatinine 1.4, calcium 8.4, phosphorus 3.3, magnesium 2.4. Renal ultrasound showing normal size kidney, 08/11.4, P/C ratio 1.9. Assessment And Plan: 1. Chronic kidney disease with acute kidney injury secondary to cardiorenal : Status post cardiac cath in past 48 hours. Kidney function stabilized. Patient will discontinue IV fluid and we will give the patient single dose of Lasix and we will monitor. Patient cleared from the renal standpoint for discharge planning. To follow up in the office in 2 to 3 weeks. 2. Chronic kidney disease stage 3 secondary to cardiorenal normal volume, renal vascular disease, normal-sized kidney, proteinuric, nonnephrotic. I again discontinued IV fluid and we will continue to monitor the kidney function . 3. Diabetes as by primary. 4. Non-ST elevation myocardial infarction, status post cardiac cath. No effect on the kidney. We will follow up with Cardiology and primary. 5. Hypertension, controlled, optimal. Keep holding TESSA inhibitor for the time being. Patient is going to need to be challenged with TESSA inhibitor as out patient given the kidney disease and the proteinuria with presence of the diabetes. ROBERT/LORNE Voice ID: [id number] Report ID: [id number] SHANTANU
[2019-12-13 22:36] LABS: Vitamin D 1,25-Dihydroxy Total 54 pg/mL (18-72); Vitamin D,1,25-OH2, D2 21 pg/mL
== END 2019-12-10 18:09 | disposition home or self-care (01) | DRG 247 ==
LOC: ER 06:40 → ERHOLD 08:41 → OBSVTOIN 08:41 → INTOOBSV 08:41 → 4TH 10:46 → OBSVTOIN 15:24
PROVIDERS: ADMIT Family Medicine; ATTEND Family Medicine
PROC: 027034Z Dilation of Coronary Artery, One Artery with Drug-eluting Intraluminal Device, Percutaneous Approach (ICD-10-PCS; principal; 2019-12-09)
PROC: 4A023N7 Measurement of Cardiac Sampling and Pressure, Left Heart, Percutaneous Approach (ICD-10-PCS; 2019-12-09)
PROC: B215YZZ Fluoroscopy of Left Heart using Other Contrast (ICD-10-PCS; 2019-12-09)
DX: I21.4 Non-ST elevation (NSTEMI) myocardial infarction (principal); N17.9 Acute kidney failure, unspecified; I48.91 Unspecified atrial fibrillation; I25.10 Atherosclerotic heart disease of native coronary artery without angina pectoris; I13.10 Hypertensive heart and chronic kidney disease without heart failure, with stage 1 through stage 4 chronic kidney disease, or unspecified chronic kidney disease; E11.40 Type 2 diabetes mellitus with diabetic neuropathy, unspecified; E11.319 Type 2 diabetes mellitus with unspecified diabetic retinopathy without macular edema; E11.22 Type 2 diabetes mellitus with diabetic chronic kidney disease; N18.3 Chronic kidney disease, stage 3 (moderate); J42 Unspecified chronic bronchitis; E78.2 Mixed hyperlipidemia; I35.0 Nonrheumatic aortic (valve) stenosis
CPT/HCPCS: 36415; 71045; 76770; 80048; 80061; 80069; 80076; 81003; 81015; 82570; 82652; 82947; 83735; 83880; 83970; 84156; 84443; 84484; 85025; 85610; 93005; 93306; 93454; 94760; 96361; 96374; 96375; 99285; C1725; C1893; C9600; C9601; G0378; J0360; J0583; J1644; J1650; J1815; J1940; J2250; J2405; J3010; J7030

== ENCOUNTER 2020-03-19 12:04 | Observation (INO) | payer OTHER ==
[2020-03-17 17:06] LABS: Absolute Lymphocytes (CBC) 2.2 K/uL (0.7-4.9); Basophils % 1.3 % (0-1.3); MPV 9.8 fL (7.6-11.3); RBC Red Blood Cell Count 5.18 M/uL (4.33-5.43)
[2020-03-17 17:19] LABS: Protime INR 1.01
[2020-03-17 17:28] LABS: Potassium 4.3 mmol/L (3.5-5.1)
[2020-03-19] MEDS ORDERED: NA CHLORIDE 0.9% 500 ML ONE (12:30)
[2020-03-19] MEDS ORDERED: HEPA 1000U/500MLS 2,000 UNIT/1,000 ML BAG IV ONE (13:20)
[2020-03-19] MEDS ORDERED: HEPARIN 5000 UNIT/ML 1 ML VIAL ONE ×2 (14:55→14:56)
[2020-03-19] MEDS ORDERED: FENTANYL CITR 100 MCG/2 ML ONE (14:55)
[2020-03-19] MEDS ORDERED: MIDAZOLAM HCL 2 MG/2 ML INJ ONE (14:55)
[2020-03-19] MEDS ORDERED: NICARDIPINE HCL 25 MG/10 ML IV ONE (14:56)
[2020-03-19] MEDS ORDERED: ATROPINE SULF 1 MG/10 ML SYR IV ONE (14:56)
[2020-03-19] MEDS ORDERED: TICAGRELOR 90 MG TABLET PO ONE (15:36)
[2020-03-19] MEDS ORDERED: ONDANSETRON 4 MG/2 ML VIAL ONE (16:20)
[2020-03-19] MEDS ORDERED: ALBUTEROL INHALER 60 PUFF/8 GM IH PRN (19:23)
[2020-03-19] MEDS ORDERED: ONDANSETRON 4 MG/2 ML VIAL IV PRN (19:23)
[2020-03-19] MEDS ORDERED: ACETAMINOPHEN 500 MG TAB PO PRN (19:23)
[2020-03-19] MEDS ORDERED: NITROGLYCERIN 0.4 MG/TAB SL PRN (19:38)
[2020-03-19] MEDS ORDERED: D50W 25 GM/50 ML SYRINGE/VIAL IV PRN (19:41)
[2020-03-19] MEDS ORDERED: GLUCAGON 1 MG/VIAL IM PRN (19:41)
[2020-03-19 20:56] VITALS: BMI 27.8
[2020-03-19] MEDS: INSULIN -REGULAR HUMAN 50 UNIT/0.5 ML ML SQ SCH (21:00)
[2020-03-19] MEDS ORDERED: ATORVASTATIN 80 MG TAB PO SCH (21:00)
[2020-03-19] MEDS: SOTALOL HCL 80 MG TAB PO SCH (21:46)
[2020-03-19] MEDS: HYDRALAZINE HCL 10 MG TABLET PO SCH (21:46)
[2020-03-19] MEDS: TICAGRELOR 90 MG TABLET PO SCH (21:46)
--- NOTE | 2020-03-19 22:58 | OP ---
Date of Procedure: 03/19/2020 Surgeon: ASHLEY MONTESINOS Procedure Performed: 1.Selective coronary angiogram. 2.Percutaneous coronary intervention of severe first OM branch stenosis, lesion length is 25 mm, 95% stenosis. JAGJIT-3 flow before percutaneous coronary intervention . We used 2.75 x 28 mm Synergy drug -eluting stent, post dilated using 3.0 x 12 mm NC balloon, 0% residual stenosis, and JAGJIT-3 flow post percutaneous coronary intervention. 3.Percutaneous coronary intervention of severe 99% mid right coronary artery stenosis using a 2.5 x 60 mm Synergy drug-eluting stent, post dilated using 2.75 x 12 mm NC balloon. JAGJIT-3 flow before and after percutaneous coronary intervention and lesion length is 14 mm and 0% residual stenosis post pe rcutaneous coronary intervention. Complications: None. Access: Right radial artery 6-Albanian closed with TR band. Complications: None. Bleeding: Less than 5 mL. Sedation: The total sedation time was 55 minutes. Description Of Procedure: After risks, benefits, and alternatives were explained to the patient, he agreed to the procedure and signed the consent. Then, he was brought into the cardiac catheterizatio n laboratory, prepped and draped in usual sterile fashion and then we used a pediatric micropuncture kit to access right radial artery and then 6-Albanian slender sheath was inserted. Then we took a Tige r catheter into the aortic root over a J-wire and engaged the right coronary artery and the left main coronary artery and took standard views and found severe OM stenosis and severe mid RCA stenosis and decided for intervention. Intervention Details: We gave systemic heparin to assure ACT level above 250 throughout the procedur e and then we took a 6-Albanian 3.5 EBU guide into the aortic root over a J-wire, engaged the left main coronary artery and then we took a short run-through wire across the severe stenosis of the first OM branch and then we pre-dilated the lesion using a 2.5 NC balloon and then we took a 2.75 x 28 mm Syn ergy drug-eluting stent and inflated across the stenosis and this bed of the vessel. Then we took a 3.0 x 12 NC balloon post dilated the whole stent before the distal edge and the overlap si te with the old previous stent with 0% restenosis and JAGJIT-3 flow, and then we exchanged the EBU 3.5 to 6-Albanian JR4 guide, engaged the right coronary artery, took short run-through wire across the mid RCA stenosis and deployed a 2.5 x 60 mm Synergy drug-eluting stent, post dilated using 2.75 x 12 mm N C balloon with excellent results. Final picture showed good flow. No complications. No dissection. Findings: 1.Severe and long lesion of the first OM branch, status post PCI as above. 2.Severe mid RCA stenosis, 99%, status post PCI as above, successful PCIs. 3.Patent left circumflex stent and normal LAD artery. Indication For The Procedure: Unstable angina. Recommendations: 1.Patient was loaded with 180 mg of Brilinta on the table. Continue 90 mg q.12 hours along with asp irin 81 mg and high-dose statin. 2.We will admit the patient overnight in the hospital for observation and if no complications by daja chapman, patient will be released for followup in the office in 4 weeks. SR/MODL Voice ID: [id number] Report ID: [id number]
[2020-03-20] MEDS: SOTALOL HCL 80 MG TAB PO SCH (05:45)
[2020-03-20 06:40] LABS: Absolute Lymphocytes (CBC) 1.8 K/uL (0.7-4.9); Basophils % 0.6 % (0-1.3); Hematocrit 41.9 % (39.6-49.0); Lymphocytes % 22.2 % (15.3-44.8); MPV 9.2 fL (7.6-11.3); RBC Red Blood Cell Count 4.88 M/uL (4.33-5.43)
[2020-03-20 06:44] LABS: Potassium 4.2 mmol/L (3.5-5.1)
[2020-03-20] MEDS: HYDRALAZINE HCL 10 MG TABLET PO SCH (07:26)
[2020-03-20] MEDS: INSULIN -REGULAR HUMAN 50 UNIT/0.5 ML ML SQ SCH (07:30)
[2020-03-20 07:33] VITALS: O2SAT 97
--- NOTE | 2020-03-20 07:54 | DS ---
Date of Discharge: 03/20/2020 Reason For Admission: Coronary artery disease. Discharge Diagnosis: Coronary artery disease. He is status post heart catheterization by Dr. Alvarez on 03/19/2020. The patient underwent angioplasty of the OM and RCA, both successful. He had normal circumflex stent and normal LAD. His initial diagnosis for admission was unstable angina. Discharge Medications: Aspirin 81 mg daily, Lipitor 80 mg daily, Plavix 75 mg daily. He is on glipi zide 10 mg b.i.d., hydralazine 20 b.i.d., losartan 100 daily, metformin at 1000 daily, sotalol 120 b. i.d. and spironolactone 50 mg daily. Discharge Instructions: Resume normal activities in 48 hours. Follow an 1800-calorie diabetic diet and see us in the office in the next 2 weeks. Brief Hospital Course: Mr. Kearns is 70, has had a history of CAD, status post stents. He has diabe valentina. He has hypertension, dyslipidemia, atrial fibrillation that has been controlled on sotalol. He takes aspirin and Plavix for blood thinners, was admitted as an outpatient for unstable angina. Und erwent catheterization with intervention in the OM and RCA, did well overnight. No complaint. His r ight wrist entry site for the catheterization was intact without any hematoma. His telemetry reveale d sinus rhythm. We will send him home with the above-mentioned instructions. We will see him in the office in the next 2 to 4 weeks. PRESLEY/LORNE Voice ID: [id number] Report ID: [id number]
[2020-03-20] MEDS ORDERED: GLIMEPIRIDE 2 MG TABLET PO SCH (08:00)
[2020-03-20] MEDS ORDERED: INSULIN GLARGINE 100 UNITS/ML SQ SCH ×2 (08:00→17:00)
[2020-03-20] MEDS: TICAGRELOR 90 MG TABLET PO SCH (08:03)
[2020-03-20 08:31] VITALS: TEMP 97.6
[2020-03-20 08:42] VITALS: BP 155/76
[2020-03-20] MEDS ORDERED: ASPIRIN EC 81 MG TAB PO SCH (09:00)
[2020-03-20] MEDS ORDERED: DOCOSAHEXANOIC AC/EPA 1000 MG PO SCH (09:00)
[2020-03-20] MEDS ORDERED: ENOXAPARIN 40 MG/0.4 ML SQ SCH (09:00)
--- NOTE | 2020-03-20 09:00 | RAD REPORT ---
EXAM DESCRIPTION: RAD - Chest Single View - 03/20/2020 8:37 am CLINICAL HISTORY: Dyspnea COMPARISON: December 07, 2019 TECHNIQUE: AP portable chest image was obtained 03/20/2020 8:37 am . FINDINGS: No focal infiltrate, mass or failure finding. Lung markings are similar to comparison. Hea rt and vasculature are normal. No measurable pleural effusion and no pneumothorax. No acute bony abno rmality seen. No acute aortic findings suspected. IMPRESSION: No acute cardiopulmonary process. No significant interval change.
--- NOTE | 2020-03-20 09:12 | P.HP ---
Certification for Inpatient Patient admitted to: Observation With expected LOS: <2 Midnights Patient will require the following post-hospital care: None Practitioner: I am a practitioner with admitting privileges, knowledge of patient current condition, hospital course, and medical plan of care. Services: Services provided to patient in accordance with Admission requirements found in Title 42 Section 412.3 of the Code of Federal Regulations Patient History Date of Service: 03/19/20 Reason for admission: Status post cardiac catheterization with stent placement History of Present Illness: Patient is a 70-year-old gentleman who came to the hospital for cardiac catheterization. Patient required stent placement. Patient was admitted to the hospital for overnight stay. Clinically patient is doing well with no complaints. He did notice that whenever he went to the bathroom he felt a little short of breath. I'll go ahead and do a chest x-ray to make sure there is no abnormalities. Allergies Penicillins Adverse Reaction (Verified 03/17/20 15:42) Hives Home Medications: Empagliflozin [Jardiance] 12.5 mg PO DAILY 12/07/19 Glipizide [Glipizide ER] 10 mg PO BID 12/07/19 Spironolactone 50 mg PO DAILY 12/07/19 Atorvastatin Calcium [Lipitor] 80 mg PO BEDTIME #30 tab 12/10/19 Losartan Potassium [Cozaar*] 100 mg PO DAILY #30 tablet 12/10/19 Nitroglycerin [Nitrostat*] 0.4 mg SL UD PRN 30 Days #1 bottle 12/10/19 Sotalol HCl [Betapace*] 120 mg PO BID 6AM 6PM #60 tab 12/10/19 Docosahexanoic AC/Epa [Fish Oil 1,000 MG*] 1,000 mg PO DAILY 03/19/20 Hydralazine [Apresoline*] 20 mg PO BID 03/19/20 Metformin HCl 1,000 mg PO DAILY 03/19/20 Ticagrelor [Brilinta*] 90 mg PO BID #60 tablet 03/20/20 - Past Medical/Surgical History Has patient received pneumonia vaccine in the past: Yes Diabetic: Yes -: hypertension -: hyperlipidemia -: Atrial fibrillation -: IDDM -: [place] -: heart stents - Family History Brother Medical History: Heart disease, Hypertension - Social History Smoking Status: Former smoker Alcohol use: Yes CD- Drugs: No Caffeine use: Yes Place of Residence: Home Review of Systems 10-point ROS is otherwise unremarkable Physical Examination - Vital Signs Temperature: 97.6 F Blood Pressure: 155/76 Pulse: 47 Respirations: 16 Pulse Ox (%): 97 - Physical Exam General: Alert, In no apparent distress, Oriented x3 HEENT: Atraumatic, PERRLA, Mucous membr. moist/pink, EOMI, Sclerae nonicteric Neck: Supple, 2+ carotid pulse no bruit, No LAD, Without JVD or thyroid abnormality Respiratory: Clear to auscultation bilaterally, Normal air movement Cardiovascular: Regular rate/rhythm, Normal S1 S2, No murmurs Gastrointestinal: Normal bowel sounds, Soft and benign, Non-distended, No tenderness Musculoskeletal: No clubbing, No swelling, No tenderness Integumentary: No rashes Neurological: Normal gait, Normal speech, Normal strength at 5/5 x4 extr, Normal tone, Sensation intact, Cranial nerves 3-12 intact, Normal affect Lymphatics: No axilla or inguinal lymphadenopathy - Studies Laboratory Data (last 24 hrs) 03/20/20 05:42: Sodium 140, Potassium 4.2, BUN 13, Creatinine 1.17, Glucose 155 H 03/20/20 05:42: WBC 8.0 D, Hgb 13.3 L, Hct 41.9, Plt Count 278 Assessment & Plan - Problems (Diagnosis) (1) Coronary artery disease Current Visit: Yes Status: Acute (2) Afib Current Visit: No Status: Acute (3) Stented coronary artery Current Visit: No Status: Acute - Plan Plan: 1. Chest x-ray 2. EKG 3. Discharge in the morning when okay with Cardiology 4. Continue with cardiac medications Discharge Plan: Home Plan to discharge in: 24 Hours - Advance Directives Does patient have a Living Will: No Does patient have a Durable POA for Healthcare: No - Code Status/Comfort Care Code Status Assessed: Yes Code Status: Full Code Critical Care: No Time Spent Managing PTS Care (In Minutes): 45
--- NOTE | 2020-03-20 09:13 | P.DS ---
Discharge Date: 03/20/20 Disposition: ROUTINE DISCHARGE Discharge Condition: GOOD Reason for Admission: Status post cardiac catheterization with stent placement Consultations: Pony Worker - Problems (1) Coronary artery disease Current Visit: Yes Status: Acute (2) Afib Current Visit: No Status: Acute (3) Stented coronary artery Current Visit: No Status: Acute Brief History of Present Illness: Patient is a 70-year-old gentleman who came to the hospital for cardiac catheterization. Patient required stent placement. Patient was admitted to the hospital for overnight stay. Clinically patient is doing well with no complaints. He did notice that whenever he went to the bathroom he felt a little short of breath. I'll go ahead and do a chest x-ray to make sure there is no abnormalities. Hospital Course: Patient did well during hospital stay. EKG and chest x-ray are negative. Patient will discharge with outpatient follow-up Cardiology. Vital Signs/Physical Exam: Temp Pulse Resp BP Pulse Ox 97.6 F 47 L 16 155/76 H 97 03/20/20 09:12 03/20/20 09:12 03/20/20 09:12 03/20/20 09:12 03/20/20 09:12 General: Alert, In no apparent distress, Oriented x3 Laboratory Data at Discharge: WBC 8.0 K/uL (4.3-10.9) D 03/20/20 05:42 Hgb 13.3 g/dL (13.6-17.9) L 03/20/20 05:42 Hct 41.9 % (39.6-49.0) 03/20/20 05:42 Plt Count 278 K/uL (152-406) 03/20/20 05:42 PT 11.9 SECONDS (9.5-12.5) 03/17/20 16:24 INR 1.01 03/17/20 16:24 APTT 36.7 SECONDS (24.3-36.9) 03/17/20 16:24 Sodium 140 mmol/L (136-145) 03/20/20 05:42 Potassium 4.2 mmol/L (3.5-5.1) 03/20/20 05:42 BUN 13 mg/dL (7-18) 03/20/20 05:42 Creatinine 1.17 mg/dL (0.55-1.3) 03/20/20 05:42 Glucose 155 mg/dL (74-106) H 03/20/20 05:42 Home Medications: Empagliflozin [Jardiance] 12.5 mg PO DAILY 12/07/19 Glipizide [Glipizide ER] 10 mg PO BID 12/07/19 Spironolactone 50 mg PO DAILY 12/07/19 Atorvastatin Calcium [Lipitor] 80 mg PO BEDTIME #30 tab 12/10/19 Losartan Potassium [Cozaar*] 100 mg PO DAILY #30 tablet 12/10/19 Nitroglycerin [Nitrostat*] 0.4 mg SL UD PRN 30 Days #1 bottle 12/10/19 Sotalol HCl [Betapace*] 120 mg PO BID 6AM 6PM #60 tab 12/10/19 Docosahexanoic AC/Epa [Fish Oil 1,000 MG*] 1,000 mg PO DAILY 03/19/20 Hydralazine [Apresoline*] 20 mg PO BID 03/19/20 Metformin HCl 1,000 mg PO DAILY 03/19/20 Ticagrelor [Brilinta*] 90 mg PO BID #60 tablet 03/20/20 New Medications: Ticagrelor [Brilinta*] 90 mg PO BID #60 tablet Patient Discharge Instructions: Follow up with Cardiology as directed. Hold Metformin for one day. DC Plavix. New medication to replace Plavix will be Brilinta 90 mg BID. Diet: ADA Activity: Ad brian Followup: Raghav Muñoz MD [ACTIVE - CAN ADMIT] - (surfboard maker- follow up in 2-4 weeks. call to schedule an appointment ) Bassam Donis MD [Primary Care Provider] - 1-2 Weeks (call to schedule an appointment ) Time spent managing pt's care (in minutes): 20
== END 2020-03-20 09:15 | disposition home or self-care (01) ==
LOC: CCL 12:04 → 4TH 18:45
PROVIDERS: ADMIT Family Medicine; ATTEND Family Medicine
DX: I25.110 Atherosclerotic heart disease of native coronary artery with unstable angina pectoris (principal); E11.9 Type 2 diabetes mellitus without complications; E78.2 Mixed hyperlipidemia; I10 Essential (primary) hypertension; I48.91 Unspecified atrial fibrillation; I35.0 Nonrheumatic aortic (valve) stenosis; I25.2 Old myocardial infarction; Z11.59 Encounter for screening for other viral diseases; Z79.84 Long term (current) use of oral hypoglycemic drugs; Z79.82 Long term (current) use of aspirin; Z79.02 Long term (current) use of antithrombotics/antiplatelets; Z79.899 Other long term (current) drug therapy; Z95.5 Presence of coronary angioplasty implant and graft; Z87.891 Personal history of nicotine dependence
CPT/HCPCS: 85025 ×2; 80048 ×2; 36415 ×2; 85610; 82947 ×4; 85347 ×2; 85730; 71045; 93454; U0002; G0379; C1893; C1725; C9601; C9600; J1644 ×2; J1650; J2250; J3010; J7040; J2405; G0378 ×3; J1815

== ENCOUNTER 2020-07-22 17:04 | Emergency (ER) | payer OTHER ==
[2020-07-22 18:26] LABS: Absolute Lymphocytes (CBC) 2.5 K/uL (0.7-4.9); Hematocrit 40.9 % (39.6-49.0); Lymphocytes % 31.1 % (15.3-44.8); MPV 8.9 fL (7.6-11.3); RBC Red Blood Cell Count 4.89 M/uL (4.33-5.43)
[2020-07-22 18:45] LABS: ALT/SGPT 30 U/L (12-78); AST/SGOT 19 U/L (15-37); Albumin 3.4 g/dL (3.4-5.0); Alkaline Phosphatase 74 U/L (45-117); BUN Blood Urea Nitrogen 17 mg/dL (7-18); Bicarbonate 32 mmol/L (21-32); Bilirubin Direct < 0.1 mg/dL (0-0.2); Bilirubin Total 0.3 mg/dL (0.2-1.0); Glucose Level 151 mg/dL (74-106); Lipase 282 U/L (73-393); Potassium 3.8 mmol/L (3.5-5.1); Protein, Total 8.2 g/dL (6.4-8.2); Sodium Level 139 mmol/L (136-145)
--- NOTE | 2020-07-22 19:03 | RAD REPORT ---
EXAM DESCRIPTION: CT - Abdomen Pelvis W Contrast - 07/22/2020 6:41 pm CLINICAL HISTORY: Abdominal pain COMPARISON: none. TECHNIQUE: Computed axial tomography of the abdomen pelvis was obtained. 100 cc Isovue-300 was admin istered intravenously. Oral contrast was not requested which limits evaluation of bowel. All CT scans are performed using dose optimization technique as appropriate and may include automated exposure control or mA/KV adjustment according to patient size. FINDINGS: Several tiny low-density lesions are present within the liver which are too small to markus cterize by CT criteria. Spleen, pancreas, adrenal and kidneys appear unremarkable. There is no evidence of diverticulitis. Normal appendix. Prostate gland is mildly enlarged. Small umbilical hernia contains fat. Atherosclerosis. Small hiatal hernia IMPRESSION: Small umbilical hernia contains fat
--- NOTE | 2020-07-22 19:10 | EDPHYS ---
Physician Documentation [facility] Name: Julianna Kearns Age: 70 yrs Sex: Male : 1950 Arrival Date: 07/22/2020 Time: 17:06 Bed 4 Private MD: NORA Physician Porter Ramos HPI: 07/22 17:33 This 70 yrs old Black Male presents to ER via Ambulatory with complaints of Abdominal jmm Pain, Diarrhea. 17:33 The patient presents with abdominal pain in the right upper quadrant, right lower jmm quadrant. Onset: The symptoms/episode began/occurred today. The symptoms radiate to. Associated signs and symptoms: Pertinent positives: diarrhea. The symptoms are described as achy. Modifying factors: The symptoms are alleviated by nothing, the symptoms are aggravated by nothing. The patient has not experienced similar symptoms in the past. Historical: - Allergies: 17:40 PENICILLINS; iw - Home Meds: 17:40 alprazolam 1 mg Oral Tb24 1 tab once daily [Active]; carvedilol 25 mg Oral tab 1 tab 2 iw times per day [Active]; empagliflozin 25 mg Oral 0.5 tab once daily [Active]; glipizide 10 mg Oral tab 1 tab 2 times per day [Active]; hydrochlorothiazide 25 mg Oral tab 1 tab once daily [Active]; Insulin Glargine 100 unit/mL Sub-Q 70 unit twice a day [Active]; losartan 50 mg Oral tab 1 tab once daily [Active]; rivaroxaban 20 mg Oral 1 tab once daily [Active]; rosuvastatin 20 mg Oral tab 0.5 tab once daily [Active]; spironolactone 50 mg Oral tab 1 tab once daily [Active]; - PMHx: 17:40 Atrial Fib; Diabetes - NIDDM; Hypertension; iw - PSHx: 17:40 Heart stents; iw - Immunization history:: Adult Immunizations not up to date. - Social history:: Smoking status: Patient/guardian denies using tobacco, the patient reports quitting approximately 20 years ago. ROS: 17:33 Constitutional: Negative for fever, chills, and weight loss, Cardiovascular: Negative jmm for chest pain, palpitations, and edema, Respiratory: Negative for shortness of breath, cough, wheezing, and pleuritic chest pain. 17:33 Abdomen/GI: Positive for abdominal pain, diarrhea. 17:33 All other systems are negative. Exam: 17:33 Constitutional: This is a well developed, well nourished patient who is awake, alert, jmm and in no acute distress. Head/Face: atraumatic. Eyes: EOMI, no conjunctival erythema appreciated ENT: Moist Mucus Membranes Neck: Trachea midline, Supple Chest/axilla: Normal chest wall appearance and motion. Cardiovascular: Regular rate and rhythm. No edema appreciated Respiratory: Normal respirations, no respiratory distress appreciated 17:33 Abdomen/GI: Inspection: abdomen appears normal, Bowel sounds: normal, Palpation: soft, mild abdominal tenderness, in the right upper quadrant and right lower quadrant. 17:33 Back: ROM is normal. 17:33 Musculoskeletal/extremity: ROM: intact in all extremities. 17:33 Skin: Appearance: Color: normal in color. 17:33 Neuro: Orientation: is normal, Mentation: is normal, Memory: is normal. 17:33 Psych: Behavior/mood is pleasant, cooperative. Vital Signs: 17:36 BP 167 / 71; Pulse 57; Resp 16; Temp 97.8; Pulse Ox 97% on R/A; Weight 88.45 kg; Height iw 6 ft. 0 in. (182.88 cm); Pain 5/10; 18:15 BP 165 / 71; Pulse 56; Resp 16 S; Pulse Ox 100% on R/A; aa5 19:21 BP 136 / 81; Pulse 60; Resp 16; Temp 98; Pulse Ox 100% on R/A; rv 17:36 Body Mass Index 26.45 (88.45 kg, 182.88 cm) iw MDM: 17:33 Patient medically screened. elie 19:08 Data reviewed: vital signs, nurses notes. Counseling: I had a detailed discussion with lzi the patient and/or guardian regarding: the historical points, exam findings, and any diagnostic results supporting the discharge/admit diagnosis, lab results, radiology results, the need for outpatient follow up, to return to the emergency department if symptoms worsen or persist or if there are any questions or concerns that arise at home. ED course: Patient is alert and non toxic in appearance in the ED. Patient is advised to follow up with pcp and otherwise given strict return precautions. patient understood and agrees with the plan of care. . 07/22 17:34 Order name: Basic Metabolic Panel; Complete Time: 18:49 [facility] 07/22 17:34 Order name: CBC with Diff; Complete Time: 18:49 [facility] 07/22 17:34 Order name: Hepatic Function; Complete Time: 18:49 [facility] 07/22 17:34 Order name: Lipase; Complete Time: 18:49 [facility] 07/22 17:46 Order name: CT Abd/Pelvis - IV Contrast Only; Complete Time: 19:06 [facility] 07/22 19:05 Order name: CREATININE WHOLE BLOOD; Complete Time: 19:06 [facility] 07/22 17:34 Order name: IV Saline Lock; Complete Time: 18:17 [facility] 07/22 17:34 Order name: Labs collected and sent; Complete Time: 18:17 [facility] Administered Medications: No medications were administered Disposition: 07/23 10:53 Co-signature as Attending Physician, Porter Ramos MD I agree with the assessment and elie plan of care. Disposition: 07/22/20 19:09 Discharged to Home. Impression: Generalized abdominal pain, Diarrhea, unspecified. - Condition is Stable. - Discharge Instructions: Abdominal Pain, Adult, Food Choices to Help Relieve Diarrhea, Adult. - Medication Reconciliation Form, Thank You Letter, Antibiotic Education, Prescription Opioid Use form. - Follow up: Private Physician; When: 2 - 3 days; Reason: Recheck today's complaints, Continuance of care, Re-evaluation by your physician. Signatures: Dispatcher [employer] Porter Richey MD MD cha Mickail, Joel, PA PA [facility] Leslie Arvizu, ERICA MALDONADO iw Linden Rajan RN RN rv Corrections: (The following items were deleted from the chart) 07/22 19:06 19:06 The patient presents with abdominal pain [facility] 19:06 19:06 This 70 yrs old Black Male presents to ER via Ambulatory with complaints of [facility] Abdominal Pain, Diarrhea. [facility] : 19:09 07/22/2020 19:09 Discharged to Home. Impression: Generalized abdominal pain; rv Diarrhea, unspecified. Condition is Stable. Forms are Medication Reconciliation Form, Thank You Letter, Antibiotic Education, Prescription Opioid Use. Follow up: Private Physician; When: 2 - 3 days; Reason: Recheck today's complaints, Continuance of care, Re-evaluation by your physician. [facility]
--- NOTE | 2020-07-22 19:10 | ER ---
Nurse's Notes [facility] Name: Julianna Kearns Age: 70 yrs Sex: Male : 1950 Arrival Date: 07/22/2020 Time: 17:06 Bed 4 Private MD: Diagnosis: Generalized abdominal pain;Diarrhea, unspecified Presentation: 07/22 17:36 Chief complaint: Patient states: upper abd pain today and diarrhea X 1 week, was sent iw by Dr. Donis, wanted him to have a CT and blood work done. Coronavirus screen: At this time, the client does not indicate any symptoms associated with coronavirus-19. Ebola Screen: Patient negative for fever greater than or equal to 101.5 degrees Fahrenheit, and additional compatible Ebola Virus Disease symptoms Patient denies exposure to infectious person. Patient denies travel to an Ebola-affected area in the 21 days before illness onset. No symptoms or risks identified at this time. Initial Sepsis Screen: Does the patient meet any 2 criteria? No. Patient's initial sepsis screen is negative. Does the patient have a suspected source of infection? No. Patient's initial sepsis screen is negative. Risk Assessment: Do you want to hurt yourself or someone else? Patient reports no desire to harm self or others. Onset of symptoms was July 16, 2020. 17:36 Method Of Arrival: Ambulatory iw 17:36 Acuity: VERONICA 3 iw Historical: - Allergies: 17:40 PENICILLINS; iw - Home Meds: 17:40 alprazolam 1 mg Oral Tb24 1 tab once daily [Active]; carvedilol 25 mg Oral tab 1 tab 2 iw times per day [Active]; empagliflozin 25 mg Oral 0.5 tab once daily [Active]; glipizide 10 mg Oral tab 1 tab 2 times per day [Active]; hydrochlorothiazide 25 mg Oral tab 1 tab once daily [Active]; Insulin Glargine 100 unit/mL Sub-Q 70 unit twice a day [Active]; losartan 50 mg Oral tab 1 tab once daily [Active]; rivaroxaban 20 mg Oral 1 tab once daily [Active]; rosuvastatin 20 mg Oral tab 0.5 tab once daily [Active]; spironolactone 50 mg Oral tab 1 tab once daily [Active]; - PMHx: 17:40 Atrial Fib; Diabetes - NIDDM; Hypertension; iw - PSHx: 17:40 Heart stents; iw - Immunization history:: Adult Immunizations not up to date. - Social history:: Smoking status: Patient/guardian denies using tobacco, the patient reports quitting approximately 20 years ago. Screenin:45 Abuse screen: Denies threats or abuse. Nutritional screening: No deficits noted. aa5 Tuberculosis screening: No symptoms or risk factors identified. Fall Risk None identified. Assessment: 17:45 General: Appears comfortable, Behavior is calm, cooperative. Pain: Complains of pain in aa5 umbilical area, right upper quadrant and left upper quadrant Pain currently is 5 out of 10 on a pain scale. Quality of pain is described as sharp. Neuro: Level of Consciousness is awake, alert, obeys commands, Oriented to person, place, time, situation. Cardiovascular: Patient's skin is warm and dry. Respiratory: Airway is patent Respiratory effort is even, unlabored, Respiratory pattern is regular, symmetrical. GI: Abdomen is round Bowel sounds present X 4 quads. Abd is soft and non tender X 4 quads. Reports diarrhea, Patient currently denies bloody stool. : No signs and/or symptoms were reported regarding the genitourinary system. EENT: No signs and/or symptoms were reported regarding the EENT system. Derm: Skin is dry, Skin is normal, Skin temperature is warm. Musculoskeletal: Range of motion: intact in all extremities. 18:47 Reassessment: Pt back from CT scan. . Neuro: Level of Consciousness is awake, alert, aa5 obeys commands, Oriented to person, place, time, situation. Respiratory: Airway is patent Respiratory effort is even, unlabored, Respiratory pattern is regular, symmetrical. Derm: Skin is dry, Skin is normal, Skin temperature is warm. Vital Signs: 17:36 BP 167 / 71; Pulse 57; Resp 16; Temp 97.8; Pulse Ox 97% on R/A; Weight 88.45 kg; Height iw 6 ft. 0 in. (182.88 cm); Pain 5/10; 18:15 BP 165 / 71; Pulse 56; Resp 16 S; Pulse Ox 100% on R/A; aa5 19:21 BP 136 / 81; Pulse 60; Resp 16; Temp 98; Pulse Ox 100% on R/A; rv 17:36 Body Mass Index 26.45 (88.45 kg, 182.88 cm) ED Course: 17:06 Patient arrived in ED. as 17:30 Adrián Javier PA is PHCP. [facility] 17:30 Porter Ramos MD is Attending Physician. [facility] 17:37 Angelita Galeana, RN is Primary Nurse. aa5 17:38 Triage completed. iw 17:40 Arm band placed on. iw 17:45 Patient has correct armband on for positive identification. Placed in gown. Bed in low aa5 position. Call light in reach. Side rails up X2. 18:15 Initial lab(s) drawn, by me, sent to lab. Inserted saline lock: 20 gauge in right aa5 antecubital area, using aseptic technique. Blood collected. 18:42 CT Abd/Pelvis - IV Contrast Only In Process Unspecified. EDMS 18:58 Report given to ERICA Cheatham. aa5 19:21 No provider procedures requiring assistance completed. IV discontinued, intact, rv bleeding controlled, No redness/swelling at site. Pressure dressing applied. Administered Medications: No medications were administered Outcome: 19:09 Discharge ordered by . [facility] 19:21 Discharged to home ambulatory. rv 19:21 Condition: good 19:21 Discharge instructions given to patient, Instructed on discharge instructions, follow up and referral plans. Demonstrated understanding of instructions, follow-up care. 19:22 Patient left the ED. rv Signatures: Dispatcher [employer] EDMS Adrián Javier PA PA jmm Martinez, Amelia as Williams, Irene, RN RN Angelita Galeana, RN RN aa5 Linden Rajan RN RN rv
[2020-07-22 20:20] VITALS: O2SAT 100
[2020-07-22 20:23] VITALS: BP 136/81; TEMP 98
== END 2020-07-22 19:22 | disposition home or self-care (01) ==
LOC: ER 17:04
DX: R19.7 Diarrhea, unspecified (principal); I10 Essential (primary) hypertension; E11.9 Type 2 diabetes mellitus without complications; I48.91 Unspecified atrial fibrillation; Z79.4 Long term (current) use of insulin; Z88.0 Allergy status to penicillin; Z95.818 Presence of other cardiac implants and grafts
CPT/HCPCS: 85025; 80048; 36415; 82565; 80076; 83690; 74177; Q9967

== ENCOUNTER 2022-03-17 13:09 | Inpatient (IN) | payer OTHER ==
--- OUTSIDE RECORDS SUMMARY | 2022-03-17 13:12 | XMS REPORT | Continuity of Care Document ---
:1950 Author Organization [facility] t Address [address] [place] [address] [address] [place] [address] Care Team Providers Name Role Phone Bassam Donis Attending Clinician Unavailable Problems This patient has no known problems. Allergies, Adverse Reactions, Alerts This patient has no known allergies or adverse reactions. Medications This patient has no known medications. Procedures This patient has no known procedures. Encounters Start End Encounter Admission Attending Care Care Encounter Source Date/Time Date/Time Type Type Clinicians Facility Department ID 2021-10-27 Outpatient Donis, STLMLC STLMLC [id number] Common 12:15:25 Bassam [id number] [facility] 2021-10-27 Outpatient STLMLC STLMLC [id number] Common 12:07:45 [id number] [facility] 2020-12-03 2020-12-03 Outpatient STLMLC STLMLC [id number] Common 00:00:00 00:00:00 [facility] 2020-08-24 2020-08-24 Outpatient STLMLC STLMLC [id number] Common 00:00:00 00:00:00 [facility] Results This patient has no known results.
[2022-03-17] MEDS ORDERED: HYDRALAZINE HCL 20 MG/ML VIAL ONE ×2 (13:21→16:37)
[2022-03-17] MEDS ORDERED: FUROSEMIDE 40 MG/4 ML VIAL ONE (13:21)
[2022-03-17 13:51] LABS: Absolute Lymphocytes (CBC) 1.8 K/uL (0.7-4.9); Hematocrit 47.9 % (39.6-49.0); Lymphocytes % 34.4 % (15.3-44.8); MCV 84.9 fL (80-100); RBC Red Blood Cell Count 5.65 M/uL (4.33-5.43)
[2022-03-17 14:01] LABS: Protime INR 1.09
[2022-03-17 14:11] LABS: Albumin 2.6 g/dL (3.4-5.0); Bilirubin Direct 0.1 mg/dL (0-0.2); Bilirubin Total 0.4 mg/dL (0.2-1.0); Potassium 3.6 mmol/L (3.5-5.1); Protein, Total 6.8 g/dL (6.4-8.2)
[2022-03-17 14:18] LABS: Troponin High Sensitivity 119.4 pg/mL (<58.9)
--- NOTE | 2022-03-17 14:36 | RAD REPORT ---
EXAM DESCRIPTION: RAD - Chest Single View - 03/17/2022 2:09 pm CLINICAL HISTORY: SOB COMPARISON: Chest Single View dated 03/20/2020; Chest Single View dated 12/07/2019; Chest Single View d ated 12/07/2019 FINDINGS: Lines: None. Lungs: No evidence of edema or pneumonia. Pleural: No significant pleural effusions or pneumothorax. Cardiac: The heart size is within normal limits. Bones: No acute fractures. Other: IMPRESSION: No acute cardiopulmonary disease.
--- NOTE | 2022-03-17 15:03 | ER ---
Nurse's Notes [facility] Name: Julianna Kearns Age: 72 yrs Sex: Male : 1950 Arrival Date: 03/17/2022 Time: 13:13 Bed 4 Private MD: Diagnosis: Acute on chronic combined systolic (congestive) and diastolic (congestive) heart failure Presentation: 03/17 13:10 Chief complaint: EMS states: Toned out by [facility] faculty for high BP 200/100 and abnormal jl7 EKG, BP 214/120 on arrival, inverted P and T waves on EKG. Pt reports SOB x 2 weeks, stopped taking meds at that time and reports symptoms improved, leena lower extremity edema noted, 90% on RA, 94% on 2 lpm. 13:10 Method Of Arrival: EMS: [facility] 7 13:10 Coronavirus screen: At this time, the client does not indicate any symptoms associated jl7 with coronavirus-19. Ebola Screen: No symptoms or risks identified at this time. Initial Sepsis Screen: Does the patient meet any 2 criteria? No. Patient's initial sepsis screen is negative. Does the patient have a suspected source of infection? No. Patient's initial sepsis screen is negative. Risk Assessment: Do you want to hurt yourself or someone else? Patient reports no desire to harm self or others. Onset of symptoms was March 02, 2022. Care prior to arrival: Oxygen administered. via nasal cannula. 13:10 Acuity: VERONICA 3 jl7 Historical: - Allergies: 13:45 PENICILLINS; jl7 - Home Meds: 14:33 amlodipine 10 mg tab [Active]; atorvastatin 80 mg oral tab [Active]; clopidogrel 75 mg jl7 oral tab [Active]; empagliflozin 25 mg Oral 0.5 tab once daily [Active]; hydralazine 10 mg Oral tab [Active]; Insulin Glargine 100 unit/mL Sub-Q 70 unit twice a day [Active]; Victoza 2-Alex subcutaneous [Active]; losartan 100 mg oral tab 1 tab once daily [Active]; metformin 1,000 mg Oral tab [Active]; sotalol 120 mg Oral tab [Active]; furosemide 40 mg Oral tab [Active]; ticagrelor 90 mg oral tab [Active]; - PMHx: 13:45 Atrial Fib; Diabetes - NIDDM; Hypertension; jl7 14:33 Hypercholesterolemia; jl7 - Immunization history:: Adult Immunizations unknown. - Social history:: Smoking status: unknown. Screenin:30 Abuse screen: Denies threats or abuse. Denies injuries from another. Nutritional jl7 screening: No deficits noted. Tuberculosis screening: No symptoms or risk factors identified. Fall Risk IV access (20 points). Total Patel Fall Scale indicates No Risk (0-24 pts). Assessment: 13:30 General: Appears in no apparent distress. uncomfortable, Behavior is calm, cooperative, jl7 appropriate for age. Pain: Denies pain. Neuro: Level of Consciousness is awake, alert, obeys commands, Oriented to person, place, time, situation. Cardiovascular: Heart tones S1 S2 present Patient's skin is warm and dry. Rhythm is regular. Respiratory: Airway is patent Respiratory effort is even, unlabored, Respiratory pattern is regular, symmetrical. Derm: Skin is pink, warm \T\ dry. 14:30 Reassessment: Patient appears in no apparent distress at this time. No changes from jl7 previously documented assessment. Patient and/or family updated on plan of care and expected duration. Pain level reassessed. Patient is alert, oriented x 3, equal unlabored respirations, skin warm/dry/pink. 15:30 Reassessment: Patient appears in no apparent distress at this time. No changes from jl7 previously documented assessment. Patient and/or family updated on plan of care and expected duration. Pain level reassessed. Patient is alert, oriented x 3, equal unlabored respirations, skin warm/dry/pink. 16:30 Reassessment: Patient appears in no apparent distress at this time. No changes from jl7 previously documented assessment. Patient and/or family updated on plan of care and expected duration. Pain level reassessed. Patient is alert, oriented x 3, equal unlabored respirations, skin warm/dry/pink. Vital Signs: 13:10 BP 220 / 115; Pulse 76; Resp 20; Temp 97.9; Pulse Ox 94% on 2 lpm NC; jl7 14:40 BP 186 / 94; Pulse 73; Resp 15; Pulse Ox 96% ; jl7 15:00 BP 195 / 101; Pulse 76; Resp 20; Pulse Ox 95% ; jl7 16:39 BP 211 / 91; Pulse 75; Resp 19; Pulse Ox 93% ; jl7 17:00 BP 190 / 89; Pulse 91; Resp 18; Pulse Ox 93% on 2 lpm NC; jl7 17:30 BP 180 / 86; Pulse 90; Resp 15; Pulse Ox 92% on 2 lpm NC; jl7 18:05 BP 165 / 74; Pulse 90; Resp 19; Pulse Ox 92% on 2 lpm NC; jl7 ED Course: 13:13 Patient arrived in ED. em1 13:14 Adrián Javier PA is PHCP. jmm 13:14 Tayo Wade DO is Attending Physician. jmm 13:30 Patient has correct armband on for positive identification. Placed in gown. Bed in low jl7 position. Call light in reach. Side rails up X2. Client placed on continuous cardiac and pulse oximetry monitoring. NIBP monitoring applied. 13:30 Initial lab(s) drawn, by me, sent to lab. EKG done, by ED staff, reviewed by Adrián jl7 Yaya DIAZ COVID swab sent to lab. Inserted saline lock: 22 gauge in left hand, using aseptic technique. 13:31 Dell Vega, RN is Primary Nurse. jl7 13:45 Triage completed. jl7 14:12 XRAY Chest (1 view) In Process Unspecified. EDMS 14:40 Arm band placed on right wrist. jl7 15:01 Wilner Zhang is Hospitalizing Provider. jmm 18:05 No provider procedures requiring assistance completed. Patient admitted, IV remains in jl7 place. intact, No redness/swelling at site. Administered Medications: 13:25 Drug: hydrALAZINE 5 mg Route: IVP; Site: left hand; jl7 14:00 Follow up: Response: No adverse reaction; Blood pressure is lowered jl7 13:28 Drug: Lasix (furosemide) 40 mg Route: IVP; Site: left hand; jl7 18:06 Follow up: Response: No adverse reaction jl7 16:39 Drug: amLODIPine 10 mg Route: PO; jl7 18:06 Follow up: Response: No adverse reaction; Blood pressure is lowered jl7 16:39 Drug: hydrALAZINE 10 mg Route: IVP; Site: left hand; jl7 18:06 Follow up: Response: No adverse reaction; Blood pressure is lowered jl7 Medication: 16:30 VIS not applicable for this client. jl7 Intake: 16:47 PO: 0ml; IV: 0ml; Tubes: 0ml (); Total: 0ml. jl7 Output: 16:47 Urine: 4000ml (Voided); Total: 4000ml. jl7 Outcome: 15:02 Decision to Hospitalize by Provider. liz 18:05 Admitted to Tele accompanied by tech, via wheelchair, room 404, with oxygen, with jere7 chart, Report called to ERICA Carlos 18:05 Condition: stable 18:05 Discharge instructions given to patient, Instructed on the need for admit, Demonstrated understanding of instructions. 18:16 Patient left the ED. jl7 Signatures: Dispatcher [employer] EDMS Adrián Javier PA PA jmm Martinez, Eric em1 Dell Vega, RN RN jl7
--- NOTE | 2022-03-17 15:03 | EDPHYS ---
Physician Documentation [facility] Name: Julianna Kearns Age: 72 yrs Sex: Male : 1950 Arrival Date: 03/17/2022 Time: 13:13 Bed 4 Private MD: ED Physician Tayo Wade HPI: 03/17 13:14 This 72 yrs old Black Male presents to ER via EMS with complaints of sob. jmm 13:14 The patient has shortness of breath at rest. Onset: The symptoms/episode began/occurred jmm gradually. Duration: The symptoms are continuous, and are steadily getting worse. The patient's shortness of breath is aggravated by nothing, is alleviated by nothing. Associated signs and symptoms: Pertinent negatives: chest pain. Krista is a 72 year old male with a history of atrial fibrillation, dm, htn that presents to the ED with complaints of progressively worsening shortness of breath over the past 2 weeks. Patient states his medications were causing shortness of breath. Patient was sating around 90-91%% on RA according to EMS. . Historical: - Allergies: 13:45 PENICILLINS; jl7 - Home Meds: 14:33 amlodipine 10 mg tab [Active]; atorvastatin 80 mg oral tab [Active]; clopidogrel 75 mg jl7 oral tab [Active]; empagliflozin 25 mg Oral 0.5 tab once daily [Active]; hydralazine 10 mg Oral tab [Active]; Insulin Glargine 100 unit/mL Sub-Q 70 unit twice a day [Active]; Victoza 2-Alex subcutaneous [Active]; losartan 100 mg oral tab 1 tab once daily [Active]; metformin 1,000 mg Oral tab [Active]; sotalol 120 mg Oral tab [Active]; furosemide 40 mg Oral tab [Active]; ticagrelor 90 mg oral tab [Active]; - PMHx: 13:45 Atrial Fib; Diabetes - NIDDM; Hypertension; jl7 14:33 Hypercholesterolemia; jl7 - Immunization history:: Adult Immunizations unknown. - Social history:: Smoking status: unknown. ROS: 13:14 Constitutional: Negative for fever, chills, and weight loss, Cardiovascular: Negative jmm for chest pain, palpitations, and edema. 13:14 Abdomen/GI: Negative for abdominal pain, nausea, vomiting, diarrhea, and constipation, Back: Negative for injury and pain. 13:14 Respiratory: Positive for shortness of breath. 13:14 All other systems are negative. Exam: 13:14 Constitutional: This is a well developed, well nourished patient who is awake, alert, jmm and in no acute distress. Head/Face: atraumatic. Eyes: EOMI, no conjunctival erythema appreciated ENT: Moist Mucus Membranes Neck: Trachea midline, Supple Chest/axilla: Normal chest wall appearance and motion. 13:14 Abdomen/GI: Non distended, soft Back: Normal ROM Skin: General appearance color normal 13:14 Cardiovascular: Rate: normal, Rhythm: regular. 13:14 Respiratory: the patient does not display signs of respiratory distress, Respirations: normal, Breath sounds: are clear throughout. 13:14 Musculoskeletal/extremity: edema noted bilaterally. 13:14 Skin: Appearance: Color: normal in color. 13:14 Neuro: Orientation: is normal, Mentation: is normal, Memory: is normal. 13:14 Psych: Behavior/mood is pleasant, cooperative. Vital Signs: 13:10 BP 220 / 115; Pulse 76; Resp 20; Temp 97.9; Pulse Ox 94% on 2 lpm NC; jl7 14:40 BP 186 / 94; Pulse 73; Resp 15; Pulse Ox 96% ; jl7 15:00 BP 195 / 101; Pulse 76; Resp 20; Pulse Ox 95% ; jl7 16:39 BP 211 / 91; Pulse 75; Resp 19; Pulse Ox 93% ; jl7 17:00 BP 190 / 89; Pulse 91; Resp 18; Pulse Ox 93% on 2 lpm NC; jl7 17:30 BP 180 / 86; Pulse 90; Resp 15; Pulse Ox 92% on 2 lpm NC; jl7 18:05 BP 165 / 74; Pulse 90; Resp 19; Pulse Ox 92% on 2 lpm NC; 7 MDM: 13:14 Patient medically screened. [facility] 15:00 Data reviewed: vital signs, nurses notes. Counseling: I had a detailed discussion with [facility] the patient and/or guardian regarding: the historical points, exam findings, and any diagnostic results supporting the discharge/admit diagnosis, lab results, radiology results, the need for further work-up and treatment in the hospital. 03/17 13:16 Order name: Basic Metabolic Panel; Complete Time: 14:22 [facility] 03/17 13:16 Order name: CBC with Diff; Complete Time: 13:58 [facility] 03/17 13:16 Order name: LFT's; Complete Time: 14:22 [facility] 03/17 13:16 Order name: Magnesium; Complete Time: 14:22 [facility] 03/17 13:16 Order name: NT PRO-BNP; Complete Time: 14:22 [facility] 03/17 13:16 Order name: PT-INR; Complete Time: 14:02 [facility] 03/17 13:16 Order name: Troponin HS; Complete Time: 14:22 [facility] 03/17 13:16 Order name: XRAY Chest (1 view); Complete Time: 14:38 [facility] 03/17 13:16 Order name: EKG; Complete Time: 13:17 [facility] 03/17 13:18 Order name: SARS-COV-2 RT PCR (Document "Date of Onset" if Symptomatic); Complete Time: [facility] 15:02 03/17 13:16 Order name: Cardiac monitoring; Complete Time: 13:53 [facility] 03/17 13:16 Order name: EKG - Nurse/Tech; Complete Time: 13:53 [facility] 03/17 13:16 Order name: IV Saline Lock; Complete Time: 13:53 [facility] 03/17 13:16 Order name: Labs collected and sent; Complete Time: 13:53 [facility] 03/17 13:16 Order name: O2 Per Protocol; Complete Time: 13:53 [facility] 03/17 13:16 Order name: O2 Sat Monitoring; Complete Time: 13:52 jmm Administered Medications: 13:25 Drug: hydrALAZINE 5 mg Route: IVP; Site: left hand; jl7 14:00 Follow up: Response: No adverse reaction; Blood pressure is lowered jl7 13:28 Drug: Lasix (furosemide) 40 mg Route: IVP; Site: left hand; jl7 18:06 Follow up: Response: No adverse reaction jl7 16:39 Drug: amLODIPine 10 mg Route: PO; jl7 18:06 Follow up: Response: No adverse reaction; Blood pressure is lowered jl7 16:39 Drug: hydrALAZINE 10 mg Route: IVP; Site: left hand; jl7 18:06 Follow up: Response: No adverse reaction; Blood pressure is lowered jl7 Disposition: 19:55 Co-signature as Attending Physician, Tayo MAY was immediately available on-site ms3 in the Emergency Department for consultation in the care of the patient.. 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 liz hill 17:53 15:02 [facility] iw
[2022-03-17] MEDS ORDERED: AMLODIPINE 10 MG TAB ONE (16:37)
--- NOTE | 2022-03-17 16:56 | P.HP ---
Certification for Inpatient Patient admitted to: Inpatient With expected LOS: >2 Midnights Practitioner: I am a practitioner with admitting privileges, knowledge of patient current condition, hospital course, and medical plan of care. Services: Services provided to patient in accordance with Admission requirements found in Title 42 Section 412.3 of the Code of Federal Regulations Patient History Date of Service: 03/17/22 Reason for admission: Shortness of breath History of Present Illness: 72-year-old -Filipino gentleman with a history of coronary artery disease, congestive heart failure, diabetes mellitus type 2 presented to the emergency department due to progressive shortness of breath. Patient reported shortness of breath which has been present over the past 2-week. He stopped taking his home medications because he felt the medications were causing him his symptoms. He went to see his PCP today where patient was noted to be hypertensive and EKG demonstrating nonspecific ST-T changes. Patient was referred to the emergency department for evaluation. Here in the ED systolic blood pressure up to 220 recorded. Patient noted to be dyspneic at rest. Chest x-ray demonstrated no acute pulmonary disease. He has significant peripheral edema. Patient given IV hydralazine and IV Lasix in the ED. he diuresed well with the IV Lasix and states he feels better. Systolic blood pressure still in the 200s during my examination. Patient diagnosed with acute CHF and admitted for further management. Allergies Penicillins Adverse Reaction (Verified 03/17/20 15:42) Hives Home Medications: Empagliflozin [Jardiance] 12.5 mg PO DAILY 12/07/19 Glipizide [Glipizide ER] 10 mg PO BID 12/07/19 Spironolactone 50 mg PO DAILY 12/07/19 Atorvastatin Calcium [Lipitor] 80 mg PO BEDTIME #30 tab 12/10/19 Losartan Potassium [Cozaar*] 100 mg PO DAILY #30 tablet 12/10/19 Nitroglycerin [Nitrostat*] 0.4 mg SL UD PRN 30 Days #1 bottle 12/10/19 Sotalol HCl [Betapace*] 120 mg PO BID 6AM 6PM #60 tab 12/10/19 Docosahexanoic AC/Epa [Fish Oil 1,000 MG*] 1,000 mg PO DAILY 03/19/20 Hydralazine [Apresoline*] 20 mg PO BID 03/19/20 Metformin HCl 1,000 mg PO DAILY 03/19/20 Ticagrelor [Brilinta*] 90 mg PO BID #60 tablet 03/20/20 - Past Medical/Surgical History Diabetic: Yes -: hypertension -: hyperlipidemia -: Atrial fibrillation -: IDDM -: [place] -: heart stents - Family History Brother -: Heart disease, Hypertension - Social History Smoking Status: Former smoker Alcohol use: Yes CD- Drugs: No Caffeine use: Yes Review of Systems Other: Patient endorsed cough productive of whitish sputum. He also reported orthopnea and has to sleep in a sitting position. He denied any chest pain or palpitation. He denied any fever. Except as documented, all other systems reviewed and negative. Physical Examination - Physical Exam General: Alert, In no apparent distress, Oriented x3 HEENT: Mucous membr. moist/pink, Sclerae nonicteric Neck: Supple, JVD not distended Respiratory: Normal air movement, Crackles/rales (Mild bibasilar Rales) Cardiovascular: Regular rate/rhythm, Normal S1 S2, Edema (Bilateral lower extremities) Gastrointestinal: Normal bowel sounds, Soft and benign, Non-distended, No tenderness Musculoskeletal: No tenderness, Swelling (Bilateral legs) Integumentary: No rashes, No erythema, No cyanosis Neurological: Normal speech, Normal strength at 5/5 x4 extr, Cranial nerves 3-12 intact Lymphatics: No axilla or inguinal lymphadenopathy - Studies Laboratory Data (last 24 hrs) 03/17/22 13:26: PT 12.0, INR 1.09 03/17/22 13:26: WBC 5.1, Hgb 15.2, Hct 47.9, Plt Count 236 03/17/22 13:26: Sodium 139, Potassium 3.6, BUN 21 H, Creatinine 1.79 H, Glucose 118 H, Magnesium 2.0, Total Bilirubin 0.4, AST 15, ALT 43, Alkaline Phosphatase 66 Assessment and Plan - Problems (Diagnosis) (1) Acute CHF Current Visit: Yes Status: Acute (2) Malignant hypertension Current Visit: Yes Status: Acute (3) Abnormal EKG Current Visit: Yes Status: Acute (4) Afib Current Visit: No Status: Acute (5) Coronary artery disease Current Visit: No Status: Acute - Plan Patient with uncontrolled BP likely secondary to noncompliance. Abnormal EKG with nonspecific ST-T changes. Admit to the medical floor. Aggressively treat blood pressure. We will resume his home dose amlodipine, hydralazine IV as needed. IV Lasix for diuresis Obtain echocardiogram. Last echocardiogram on file was in 2019. Trend troponin. Aspirin Monitor intake and output. Insulin sliding scale for glucose management. Check lipid profile, hemoglobin A1c. Reconcile and continue other home medications. - Advance Directives Does patient have a Living Will: No Does patient have a Durable POA for Healthcare: No
[2022-03-17] MEDS ORDERED: ALBUTEROL 2.5 MG/3 ML NEB SOL NEB PRN (18:38)
[2022-03-17] MEDS: HEPARIN 5000 UNIT/ML 1 ML VIAL SQ SCH (19:15)
[2022-03-17] MEDS: HYDRALAZINE HCL 20 MG/ML VIAL IV PRN (19:52)
[2022-03-17] MEDS: INSULIN -REGULAR HUMAN 50 UNIT/0.5 ML ML SQ SCH (20:36)
[2022-03-18 01:03] VITALS: BMI 27.2
[2022-03-18] MEDS: HEPARIN 5000 UNIT/ML 1 ML VIAL SQ SCH ×3 (01:47→16:35)
[2022-03-18 04:34] LABS: Absolute Lymphocytes (CBC) 1.4 K/uL (0.7-4.9); Hematocrit 49.5 % (39.6-49.0); Lymphocytes % 17.4 % (15.3-44.8); MCV 85.9 fL (80-100); RBC Red Blood Cell Count 5.77 M/uL (4.33-5.43)
[2022-03-18 04:44] LABS: Magnesium 1.8 mg/dL (1.8-2.4); Phosphorus 2.7 mg/dL (2.5-4.9); Potassium 3.8 mmol/L (3.5-5.1)
[2022-03-18] MEDS ORDERED: MAGNESIUM SULFATE 1 gm IVPB 1 GM/100 ML BAG IV ONE (04:58)
[2022-03-18] MEDS ORDERED: POTASSIUM CL SA 10 MEQ TAB PO ONE (04:59)
[2022-03-18] MEDS: INSULIN -REGULAR HUMAN 50 UNIT/0.5 ML ML SQ SCH ×4 (07:30→21:00)
[2022-03-18] MEDS: FUROSEMIDE 40 MG/4 ML VIAL IV SCH ×3 (08:08→17:00)
[2022-03-18] MEDS: HYDRALAZINE HCL 20 MG/ML VIAL IV PRN ×2 (08:09→16:35)
[2022-03-18] MEDS: ASPIRIN EC 81 MG TAB PO SCH (08:09)
[2022-03-18] MEDS: cloNIDine HCL 0.1 MG TAB PO ONE ×2 (17:46→17:52)
[2022-03-18] MEDS: FUROSEMIDE 40 MG TABLET PO ONE ×2 (17:46→17:53)
--- NOTE | 2022-03-18 19:01 | P.PN ---
Subjective Date of Service: 03/18/22 Chief Complaint: Shortness of breath Patient states he feels much better today. Currently tolerating room air. He is also ambulating without shortness of breath. Physical Examination - Vital Signs Temperature: 97 F Blood Pressure: 198/95 Pulse: 91 Respirations: 18 Pulse Ox (%): 92 - Physical Exam General: Alert, In no apparent distress, Oriented x3 HEENT: Mucous membr. moist/pink Neck: JVD not distended Respiratory: Crackles/rales (Mild bibasilar crackles) Cardiovascular: Regular rate/rhythm, Normal S1 S2, Edema (Bilateral lower extremity edema improved.) Gastrointestinal: Normal bowel sounds, Soft and benign, Non-distended, No tenderness Musculoskeletal: No swelling, No tenderness Integumentary: No rashes, No erythema, No cyanosis Neurological: Normal strength at 5/5 x4 extr Assessment And Plan - Current Problems (Diagnosis) (1) Acute CHF Current Visit: Yes Status: Acute (2) Malignant hypertension Current Visit: Yes Status: Acute (3) Abnormal EKG Current Visit: Yes Status: Acute (4) Afib Current Visit: No Status: Acute (5) Coronary artery disease Current Visit: No Status: Acute (6) Chronic kidney disease, stage III (moderate) Current Visit: Yes Status: Acute (7) History of [place] (myocardial infarction) Current Visit: Yes Status: Acute - Plan Patient with uncontrolled BP likely secondary to noncompliance. Abnormal EKG with nonspecific ST-T changes. Troponin mildly elevated but trended up. Shortness of breath improved Continue IV Lasix for diuresis Continue home antihypertensives. IV hydralazine as needed for BP spikes Cardiology consult Continue medication for CAD-aspirin, Brilinta, Lipitor Monitor intake and output. Insulin sliding scale for glucose management.
[2022-03-18] MEDS ORDERED: INSULIN GLARGINE 100 UNIT/ML SQ SCH (21:00)
[2022-03-18] MEDS ORDERED: ATORVASTATIN 40 MG TAB PO SCH (21:00)
[2022-03-18] MEDS: LOSARTAN POTASSIUM 50 MG TABLET PO SCH (21:41)
[2022-03-18] MEDS: SOTALOL HCL 80 MG TAB PO SCH (21:42)
[2022-03-18] MEDS: FUROSEMIDE 40 MG TABLET PO SCH (21:43)
[2022-03-18] MEDS: HYDRALAZINE HCL 10 MG TABLET PO SCH (21:43)
[2022-03-18] MEDS: TICAGRELOR 90 MG TABLET PO SCH (21:51)
[2022-03-19] MEDS: HEPARIN 5000 UNIT/ML 1 ML VIAL SQ SCH ×2 (01:21→09:12)
[2022-03-19 01:24] VITALS: O2SAT 98
[2022-03-19 04:36] LABS: Magnesium 1.9 mg/dL (1.8-2.4); Potassium 3.3 mmol/L (3.5-5.1)
[2022-03-19] MEDS: SOTALOL HCL 80 MG TAB PO SCH (06:00)
[2022-03-19] MEDS: INSULIN -REGULAR HUMAN 50 UNIT/0.5 ML ML SQ SCH ×2 (07:30→11:30)
[2022-03-19] MEDS: FUROSEMIDE 40 MG/4 ML VIAL IV SCH (08:17)
[2022-03-19 08:26] VITALS: BP 152/82; TEMP 97
--- NOTE | 2022-03-19 08:59 | EKG ---
Test Date: 2022-03-17 Test Time: 13:18:31 Audio Visual Equipment Rental Clerk: ATUL MEASUREMENT RESULTS: Intervals: Rate: 75 WA: 160 QRSD: 98 QT: 448 QTc: 500 [place]: P: 70 WA: 160 QRS: -42 T: 76 INTERPRETIVE STATEMENTS: Normal sinus rhythm Possible Left atrial enlargement Left axis deviation T wave abnormality, consider anterior ischemia Prolonged QT Abnormal ECG Compared to ECG 12/08/2019 08:19:14 Left-axis deviation now present T-wave abnormality now present ST (T wave) deviation no longer present Possible ischemia still present Electronically Signed On 03-19-22 08:55:38 CDT by Raghav Muñoz
[2022-03-19] MEDS ORDERED: MULTIVITAMIN TAB PO SCH (09:00)
[2022-03-19] MEDS ORDERED: HOME MED 1 EA UNK (Empagliflozin [Jardiance] 25 MG Tablet) PO SCH (09:00)
[2022-03-19] MEDS ORDERED: AMLODIPINE 10 MG TAB PO SCH (09:00)
[2022-03-19] MEDS ORDERED: POTASSIUM 25 MEQ EFFERV TAB PO ONE (09:00)
[2022-03-19] MEDS ORDERED: VITAMIN D 1000 UNIT TAB PO SCH (09:00)
[2022-03-19] MEDS ORDERED: INSULIN GLARGINE 100 UNIT/ML SQ SCH (09:00)
[2022-03-19] MEDS ORDERED: DOCOSAHEXANOIC AC/EPA 1000 MG PO SCH (09:00)
[2022-03-19] MEDS: HYDRALAZINE HCL 10 MG TABLET PO SCH (09:11)
[2022-03-19] MEDS: ASPIRIN EC 81 MG TAB PO SCH (09:11)
[2022-03-19] MEDS: LOSARTAN POTASSIUM 50 MG TABLET PO SCH (09:12)
[2022-03-19] MEDS: FUROSEMIDE 40 MG TABLET PO SCH (09:12)
[2022-03-19] MEDS: TICAGRELOR 90 MG TABLET PO SCH (09:18)
--- NOTE | 2022-03-19 11:00 | CON ---
Date of Consultation: 03/19/2022 Reason For Consultation: Congestive heart failure and elevated troponin. History Of Present Illness: Mr. Kearns is a 72-year-old black male with history of coronary artery d isease. He underwent a stent of his OM and RCA [place] [address] Alvarez. He has a history of mild aort ic stenosis, atrial fibrillation, diabetes, hypertension, and dyslipidemia. Has not really followed up in the clinic and they appeared to be rather noncompliant. He comes in with shortness of breath. A chest x-ray showed mild congestive heart failure. BNP was 9443. He denied any chest pain, but a troponin of 152. His creatinine is 1.63. His potassium was 3.3. He denied nausea, vomiting, diapho resis, PND, orthopnea, but did have pedal edema shortness of breath. Denied any fever or chills. He is feeling much better today after diuresis. Past Medical History: As stated above. Allergies: TO PENICILLIN. Review of Systems: Negative. Social History: Negative. Family History: Negative. Medications: At home include Norvasc, Lipitor, Plavix, insulin, Jardiance, Lasix, hydralazine, Victo za, losartan, metformin, and sotalol. Physical Examination: General: He was in sinus bradycardia. HEENT: Negative. Neck: Supple. No bruit, lymphadenopathy, JVD, or thyromegaly. Chest: Clear to auscultation and percussion. Cardiac exam: Revealed a regular rhythm and rate with an aortic stenosis murmur. Abdomen: Benign. Extremities: Revealed no clubbing, cyanosis, or edema. Diagnostic Data: As stated earlier. Impression And Plan: 1.Acute on chronic diastolic congestive heart failure. 2.Mild aortic stenosis. 3.Coronary artery disease, status post stent of the OM and RCA in 2019. 4.Diabetes. 5.Atrial fibrillation, rate controlled in sinus rhythm, on sotalol. 6.Diabetes. 7.Dyslipidemia. 8.Hypertension, well controlled. 9.Hypokalemia, needs to be addressed. 10.Insufficiency. 11.Elevated troponin secondary to demand ischemia. I think Mr. Kearns is on very appropriate medication as far as his illnesses are concerned. He has d iuresed well. He feels well. He needs to go home, but we will make sure we will call him soon and h ave him come to the office in the near future. He needs to have an outpatient Lexiscan, repeat echoc ardiogram, and a carotid Doppler down the road. PRESLEY/LORNE Voice ID: [id number] Report ID: [id number]
--- NOTE | 2022-03-19 11:21 | P.DS ---
Admission Date: 03/17/22 Discharge Date: 03/19/22 Disposition: ROUTINE DISCHARGE Reason for Admission: Shortness of breath - Problems (1) Acute CHF Status: Acute (2) Malignant hypertension Status: Acute (3) Abnormal EKG Status: Acute (4) Afib Status: Acute (5) Coronary artery disease Status: Acute (6) Chronic kidney disease, stage III (moderate) Status: Acute (7) History of [place] (myocardial infarction) Status: Acute Brief History of Present Illness: 72-year-old -[place] Islander gentleman with a history of coronary artery disease, congestive heart failure, diabetes mellitus type 2 presented to the emergency department due to progressive shortness of breath. Patient reported shortness of breath which has been present over the past 2-week. He stopped taking his home medications because he felt the medications were causing him his symptoms. He went to see his PCP today where patient was noted to be hypertensive and EKG demonstrating nonspecific ST-T changes. Patient was referred to the emergency department for evaluation. Here in the ED systolic blood pressure up to 220 recorded. Patient noted to be dyspneic at rest. Chest x-ray demonstrated no acute pulmonary disease. He has significant peripheral edema. Patient given IV hydralazine and IV Lasix in the ED. He diuresed well with the IV Lasix and stated he was feeling better. Systolic blood pressure still in the 200s during my examination. Patient diagnosed with acute CHF and admitted for further management. Hospital Course: Patient admitted to the medical floor and treated with IV Lasix for CHF exacerbation. His blood pressure was severely elevated with systolic in the 200s. His home antihypertensives were resumed. Patient treated with IV hy dralazine as needed for BP spikes. His blood pressure improved, his shortness of breath resolved and lower extremity edema also improved. His troponin was mildly elevated. He has history of significant coronary to disease status post cardiac stents. His home medications which includes dual antiplatelet therapy were continued during the hospital stay. Patient seen by cardiology-Dr. Muñoz and deemed stable for discharge. Of note, patient was noncompliant with his home medications including Lasix. His home medications are prescribed on discharge. Vital Signs/Physical Exam: Temp Pulse Resp BP Pulse Ox 97.0 F 48 L 16 152/82 H 96 03/19/22 08:00 03/19/22 08:00 03/19/22 08:00 03/19/22 08:00 03/19/22 08:00 General: Alert, In no apparent distress, Oriented x3 HEENT: Mucous membr. moist/pink Neck: JVD not distended Respiratory: Clear to auscultation bilaterally, Normal air movement Cardiovascular: Regular rate/rhythm, Normal S1 S2, Edema (Lower extremity edema significantly improved.) Gastrointestinal: Normal bowel sounds, Soft and benign, Non-distended, No tenderness Integumentary: No rashes, No cyanosis Neurological: Normal strength at 5/5 x4 extr Laboratory Data at Discharge: WBC 8.2 K/uL (4.3-10.9) D 03/18/22 04:11 Hgb 16.1 g/dL (13.6-17.9) 03/18/22 04:11 Hct 49.5 % (39.6-49.0) H 03/18/22 04:11 Plt Count 231 K/uL (152-406) 03/18/22 04:11 PT 12.0 SECONDS (9.5-12.5) 03/17/22 13:26 INR 1.09 03/17/22 13:26 Sodium 137 mmol/L (136-145) 03/19/22 04:02 Potassium 3.3 mmol/L (3.5-5.1) L 03/19/22 04:02 BUN 17 mg/dL (7-18) 03/19/22 04:02 Creatinine 1.63 mg/dL (0.55-1.3) H 03/19/22 04:02 Glucose 143 mg/dL (74-106) H 03/19/22 04:02 Phosphorus 2.7 mg/dL (2.5-4.9) 03/18/22 04:11 Magnesium 1.9 mg/dL (1.8-2.4) 03/19/22 04:02 Total Bilirubin 0.4 mg/dL (0.2-1.0) 03/17/22 13:26 AST 15 U/L (15-37) 03/17/22 13:26 ALT 43 U/L (12-78) 03/17/22 13:26 Alkaline Phosphatase 66 U/L (45-117) 03/17/22 13:26 Home Medications: Clopidogrel Bisulfate [Plavix*] 75 mg PO DAILY 03/18/22 Amlodipine [Norvasc*] 10 mg PO DAILY #30 tab 03/19/22 Aspirin [Aspirin EC 81 MG] 81 mg PO DAILY #30 tablet. 03/19/22 Atorvastatin Calcium [Lipitor] 80 mg PO BEDTIME #30 tab 03/19/22 Cholecalciferol (Vitamin D3) [Vitamin D3] 50 mcg PO DAILY 30 Days #30 capsule 03/19/22 Docosahexanoic AC/Epa [Fish Oil 1,000 MG*] 1,000 mg PO DAILY #30 cap 03/19/22 Empagliflozin [Jardiance] 25 mg PO DAILY 30 Days #30 tablet 03/19/22 Folic Acid/Multivit-Min/Lutein [Multi-Vitamin Gummies] 1 each PO DAILY #30 tab.chew 03/19/22 Furosemide [Lasix*] 40 mg PO BIDL 30 Days #60 tab 03/19/22 Hydralazine [Apresoline*] 20 mg PO TID #90 tab 03/19/22 Insulin Glargine,Hum.rec.anlog [Lantus] 25 unit SQ BEDTIME #10 ml 03/19/22 Insulin Glargine,Hum.rec.anlog [Lantus] 70 unit SQ DAILY #10 ml 03/19/22 Losartan Potassium [Cozaar*] 100 mg PO DAILY #60 tablet 03/19/22 Metformin HCl 1,000 mg PO DAILY 30 Days #30 tablet 03/19/22 Sotalol HCl [Betapace*] 120 mg PO BID 6AM 6PM #60 tab 03/19/22 New Medications: Hydralazine [Apresoline*] 20 mg PO TID #90 tab Aspirin [Aspirin EC 81 MG] 81 mg PO DAILY #30 tablet. Sotalol HCl [Betapace*] 120 mg PO BID 6AM 6PM #60 tab Losartan Potassium [Cozaar*] 100 mg PO DAILY #60 tablet Docosahexanoic AC/Epa [Fish Oil 1,000 MG*] 1,000 mg PO DAILY #30 cap Empagliflozin [Jardiance] 25 mg PO DAILY 30 Days #30 tablet Insulin Glargine,Hum.rec.anlog [Lantus] 70 unit SQ DAILY #10 ml Insulin Glargine,Hum.rec.anlog [Lantus] 25 unit SQ BEDTIME #10 ml Furosemide [Lasix*] 40 mg PO BIDL 30 Days #60 tab Atorvastatin Calcium [Lipitor] 80 mg PO BEDTIME #30 tab Metformin HCl 1,000 mg PO DAILY 30 Days #30 tablet Folic Acid/Multivit-Min/Lutein [Multi-Vitamin Gummies] 1 each PO DAILY #30 tab.chew Amlodipine [Norvasc*] 10 mg PO DAILY #30 tab Cholecalciferol (Vitamin D3) [Vitamin D3] 50 mcg PO DAILY 30 Days #30 capsule Diet: ADA Activity: Ad brian Followup: Bassam Donis MD [Primary Care Provider] - Raghav Muñoz MD [ACTIVE - CAN ADMIT] - 1 Week Time spent managing pt's care (in minutes): 38
== END 2022-03-19 12:03 | disposition home or self-care (01) | DRG 291 ==
LOC: ER 13:09 → ERHOLD 16:44 → 4TH 18:13
PROVIDERS: ADMIT Internal Medicine; ATTEND Internal Medicine
DX: I13.0 Hypertensive heart and chronic kidney disease with heart failure and stage 1 through stage 4 chronic kidney disease, or unspecified chronic kidney disease (principal); I50.33 Acute on chronic diastolic (congestive) heart failure; I16.1 Hypertensive emergency; I24.8 Other forms of acute ischemic heart disease; N18.30 Chronic kidney disease, stage 3 unspecified; I25.10 Atherosclerotic heart disease of native coronary artery without angina pectoris; E78.5 Hyperlipidemia, unspecified; E87.6 Hypokalemia; E11.22 Type 2 diabetes mellitus with diabetic chronic kidney disease; R94.31 Abnormal electrocardiogram [ECG] [EKG]; I25.2 Old myocardial infarction; Z91.14 Patient's other noncompliance with medication regimen; Z88.0 Allergy status to penicillin; Z95.5 Presence of coronary angioplasty implant and graft; Z20.822 Contact with and (suspected) exposure to COVID-19
CPT/HCPCS: 36415; 71045; 80048; 80076; 82947; 83735; 83880; 84100; 84484; 85025; 85610; 93005; 94760; 96374; 96375; 99285; J0360; J1644; J1815; J1940; J3475; U0003

== ENCOUNTER 2022-04-26 08:12 | Day surgery (SDC) | payer OTHER ==
[2022-04-22 09:38] LABS: Absolute Lymphocytes (CBC) 1.2 K/uL (0.7-4.9); Hematocrit 45.5 % (39.6-49.0); Lymphocytes % 22.6 % (15.3-44.8); MPV 8.4 fL (7.6-11.3); RBC Red Blood Cell Count 5.48 M/uL (4.33-5.43)
[2022-04-22 09:42] LABS: Protime INR 1.04
[2022-04-22 09:45] LABS: SARS-CoV-2 Antigen Rapid Res Negative (Negative)
[2022-04-22 09:50] LABS: Potassium 3.9 mmol/L (3.5-5.1)
[2022-04-26] MEDS ORDERED: NA CHLORIDE 0.9% 500 ML ONE (08:42)
[2022-04-26] MEDS ORDERED: HYDRALAZINE HCL 20 MG/ML VIAL ONE ×2 (08:42→08:50)
[2022-04-26] MEDS ORDERED: FENTANYL CITR 100 MCG/2 ML ONE (08:49)
[2022-04-26] MEDS ORDERED: ATROPINE SULF 1 MG/10 ML SYR IV ONE (08:50)
[2022-04-26] MEDS ORDERED: NA CHLORIDE 0.9% 0 ML IV ONE (08:50)
[2022-04-26] MEDS ORDERED: MIDAZOLAM HCL 2 MG/2 ML INJ ONE (08:50)
[2022-04-26] MEDS ORDERED: LIDOCAINE 1% MPF 5 ML VIAL ONE (09:19)
[2022-04-26] MEDS ORDERED: NA CHLORIDE 0.9% 100 ML IV ONE (09:36)
[2022-04-26 11:55] VITALS: BP 171/76; O2SAT 91
--- NOTE | 2022-04-26 17:11 | OP ---
Surgeon: Raghav Muñoz MD Inspector General: Ms. Salma Shook. Admitted on today, 04/26/2022 to the paint laboratory technician as an outpatient. He underwent left heart catheterizat ion, right heart catheterization, cardiac output measurement, oxygen saturation measurement, selectiv e coronary artery injection, and common femoral artery injection. Indication: Pulmonary hypertension, aortic stenosis, coronary artery disease, abnormal stress test. Mr. Mayfield is 72. Procedure In Detail: He was brought to the paint laboratory technician as an outpatient, prepped and draped in sterile fashion. Given Versed and fentanyl for sedation. A 6-Malian sheath was introduced in the right comm on femoral artery. A 7-Malian sheath introduced in the right common femoral vein using Seldinger vickie hnique and 10 cc of Xylocaine. Left heart catheterization was performed using Vasyl catheter. He had mild RCA plaquing. The circumflex was patent. He had some LAD stent open with some minimal plaq uing throughout. The left main was normal. Common femoral artery angiogram was normal. Angio-Seal was used to close the case. Following the left heart catheterization, a [place]-Abdiaziz catheter was intro duced in the right common femoral vein via common femoral vein sheath. The [place]-Abdiaziz catheter was ad vanced in the right atrium, right ventricle. Pulmonary artery pressures, RV pressure, and right atri um were measured. His PA pressure and RV pressure were over 200 systolic. His right atrial pressure was about 20. Cardiac output averaged about 6 L a minute. O2 saturations are pending. I would lik e to note I tried to cross the valve with a Warner catheter and JR4 catheter, but I was unable to cros s the valve. The patient tolerated the procedure well. There were no complications. Blood loss was 5 cc. Total conscious sedation was 60 minutes. Final Impression: Severe pulmonary hypertension, mild coronary artery disease, diastolic congestive heart failure, aortic stenosis. The patient will need the pulmonary hypertension treated, probably with sildenafil. I will refer him to Pulmonology and he will need a transesophageal echo to evaluate the aortic valve better. He can go home after 2 hours of bedrest today and I will see him in about 2 weeks. PRESLEY/LORNE Voice ID: [id number] Report ID: [id number]
== END 2022-04-26 12:00 | disposition home or self-care (01) ==
LOC: CCL 08:12
DX: I35.0 Nonrheumatic aortic (valve) stenosis (principal); I27.20 Pulmonary hypertension, unspecified; I25.10 Atherosclerotic heart disease of native coronary artery without angina pectoris; I11.0 Hypertensive heart disease with heart failure; I50.30 Unspecified diastolic (congestive) heart failure; I48.0 Paroxysmal atrial fibrillation; I65.23 Occlusion and stenosis of bilateral carotid arteries; E78.2 Mixed hyperlipidemia; E11.9 Type 2 diabetes mellitus without complications; Z95.5 Presence of coronary angioplasty implant and graft; Z79.02 Long term (current) use of antithrombotics/antiplatelets; Z79.82 Long term (current) use of aspirin; Z79.84 Long term (current) use of oral hypoglycemic drugs; Z79.899 Other long term (current) drug therapy; Z88.0 Allergy status to penicillin; Z20.822 Contact with and (suspected) exposure to COVID-19
CPT/HCPCS: 85025; 80048; 36415; 85610; 82947 ×2; 85730; 93456; 87811; C1893; C1760; G0269; J0360 ×2; J2250; J3010; J7040; J0583

== ENCOUNTER 2022-06-08 21:29 | Inpatient (IN) | payer OTHER ==
--- OUTSIDE RECORDS SUMMARY | 2022-06-08 21:32 | XMS REPORT | Continuity of Care Document ---
:1950 Author Organization [facility] t Address [address] [place] [address] Care Team Providers Name Role Phone Bassam Donis Attending Clinician Unavailable Jose Reinoso Attending Clinician Unavailable Chad Alvarez Attending Clinician Unavailable Physician, No Primary or Family Admitting Clinician Unavaila [facility] Payers Payer Name Policy Type Policy Number Effective Date Expiration Date S ource Problems This patient has no known problems. Allergies, Adverse Reactions, Alerts Allergy Allergy Status Severity Reaction(s) Onset Inactive Treating Comm ents Source Name Type Date Date Clinician Penicill DA Active SV HIVES [facility] ins 8 Clear 00:00: Jeronimo [address] [place] [address] Medications This patient has no known medications. Procedures This patient has no known procedures. Encounters Start End Encounter Admission Attending Care Care Encounter Source Date/Time Date/Time Type Type Clinicians Facility Department ID 2021-10-27 [facility] [id number] Common 12:15:25 Bassam [id number] [facility] 2021-10-27 [facility] [id number] Common 12:07:45 [id number] [facility] 2022-05-31 2022-05-31 Outpatient SPEEDY Dial [facility] [id number] [facility] 08:52:00 08:52:00 Jose 47 [facility] 2022-05-112022-05-11 Outpatient SPEEDY Rae [facility] [id number] [facility] 10:11:00 10:11:00 Chad 67 [facility] 2022-05-11 2022-05-11 Outpatient SPEEDY Rae [id number] [facility] 10:11:00 10:11:00 Chad [id number] [facility] 2020-12-03 2020-12-03 [facility] [id number] Common 00:00:00 00:00:00 [facility] 2020-08-24 2020-08-24 Outpatient [facility]C [facility] [id number] Common 00:00:00 00:00:00 [facility] Results Test Description Test Time Test Comments Results Result Comments Source COVID 19 Asymptomatic [facility] AG 2022-05-31 10:17:00 Test Item Value Reference Range Interpretation Comme nts COVID 19 Asymptomatic IH AG Negative Negative A negative result is presumptive and (test code = COVNONPUIAG) sh ould be confirmedwith an FDA authorized mole cular assay, if necessary forpa tient management.A positive result does not rule out co-infections w ithother pathogens.This test detects both viable (live) a nd non-viable,SARS -CoV, and SARS-CoV-2. Test performanc e depends on theamount of vi michael (antigen) in the sample.This valentina t has not been FDA cleared or appr pao; the test hasbeen authori zed by FDA under an Emergency Use A uthorization(EUA) for use by laborato raheem certified under the CLIA thatme et the requirements to perform mode rate, high or waivedcomplexit y tests. 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 Standard prospective cardiac- gated CAC scoring protocol was used for image acquisition. Following intravenous contrast administration, ECGgated CTA was performed. 3D rendering (Not supervised by radiologist): MIP and/or 3D reconstructed images were created by the technologist. Radiation optimization: All CT scans at this facility use at l east one of these dose optimization techniques: automated exposure control; mA and/or kV adjustmentper patient size (includes targeted exams where dose is matched to clinical indication); or iterative reconstruction. Contrast material: ISOVUE 370; Contrast volume: 100 ml; Contrast route: INTRAVENOUS(IV); Pharmacological intervention: None. COMPARISON: No relevant prior studies available. FINDINGS:CARDIAC CTA/THORACIC CTA: AORTIC VALVE: There is a trileaflet aortic valve. There is severe calcification involving the aortic valve leaflets. The total calcium score of the aortic valve is 1658. THORACIC AORTA: There is mild atherosclerosis of the thoracic aorta. There is a left sided aortic arch. There is no evidence of aortic dissection. Aortic arch vessels are patent. THORACIC AORTIC MEASUREMENTS: Thoracic aortic measurements are obtained at 30 percent phase of the R-R interval. Aortic annulus 26.6 x 21 mm, area of 4.18 cm2 and perimeter of 73.9 mm. SOV 34.5 x 36.1 x 32.6 mm STJ 28.8 x 28.9 mm At the level of the pulmonary artery bifurcation, the ascending aorta measures 31.8 x 33.6 mm. The distance from the annulus to the RCA ostium is 22.9 mm. The distance from the annulus to the LM ostium is 15.1 mm. CORONARY ARTERIES: Normal origin of the coronary arteries. There is coronary atherosclerosis however the study was not tailored for the assessment of the coronaries. CARDIAC CHAMBERS: Mild cardiomegaly. No LA or LV thrombus. Mild PAGE 1 Signed Report (CONTINUED) Name: ALBERT SANCHEZ [facility] : 1950 Age/S: 72 / M [address] [place] [address] Unit #: [id number] Loc: [place] [address] Phys: Jose Reinoso [facility] Acct: [id number] Dis Date: Status: REG CLI PHONE #: [phone] Exam Date: 05/31/2022 1012 FAX #: [phone] Reason: EXAMS: CPT CODE: [id number] CTA HEART W CN ART/GRAFTS 06111 (Continued) mitral annular calcification. PERICARDIUM: No evidence of pericardial effusion.MEDIASTINUM: Mild enlargement of mediastinal lymph nodes in the right paratracheal region, left paratracheal region, left AP window, bilateral hilar and infracarinal stations, the largest in the rightparatracheal region measuring up to 18 mm. LUNGS AND PLEURA: There are small bilateral pleural effusions with mild adjacent atelectasis. There is mild interlobular septal thickening bilaterally with mild ground-glass changes consistent with mild edema. BONES AND SOFT TISSUES: There are no bony lytic or blastic lesions. IMPRESSION: Severe calcification of the aortic valve compatible with aortic stenosis. The total calcium score of the aortic valve is 1658. Aortic annulus 26.6 x 21 mm, area of 4.18 cm2 and perimeter of 73.9 mm. Mild pulmonary edema and small bilateral pleural effusions with mild adjacent atelectasis. Mild enlargement mediastinal lymph nodes, measuring up to 18 mm in the right paratracheal region. In the presence of edema, these are most likely congestive in nature . Follow-up CT chest with IV contrast is suggested in 6 months to reassess. CTA ABDOMEN AND PELVIS ABDOMINAL AORTA: There is mild atherosclerosis involving the abdominal aorta and moderate atherosclerosis involving theiliofemoral branches. The celiac artery, superior mesenteric artery, and inferior mesenteric artery are patent. There is 1 right and 1 left renal arteries. MINIMAL LUMINAL DIAMETERS OF ABDOMINAL AORTA AND BRANCHES: The minimal luminal diameter of the aorta is 18 x 17 mm in the infrarenal segment. The RIGHT common iliac, external iliac and common femoral arteries are patent, measuring 6 mm or greater.The LEFT common iliac, external iliac and common femoral arteries are patent, measuring 6 mm or greater. ABDOMEN and PELVIS: The liver, gallbladder, biliary ducts, pancreas, spleen, kidneys are unremarkable. Mild thickening of the bilateral adrenal glands, consistent with mild hyperplasia. The stomach, small bowel and colon are unremarkable. The appendix is normal. There is no intra-abdominal or retroperitoneal adenopathy. Mild wall thickening of the underdistended bladder. Prostate gland and seminal vesicles within normal limits. BONES AND SOFT TISSUES: There are no bony lytic or blastic lesions. PAGE 2 Signed Report (CONTINUED) Name: ALBERT SANCHEZ [facility] : 1950 Age/S: 72 / M [address] [place] [address] Blvd Unit #: [id number] Loc: [place] [address] Phys: Jose Reinoso Acct: [id number] Dis Date: Status: REG CLI PHONE #: [phone] Exam Date: 05/31/2022 1012 FAX #: [phone] Reason: EXAMS: CPT CODE: [id number] CTA HEART W CN ART/GRAFTS 06806 (Continued) Small uncomplicated fat containing umbilical hernia. IMPRESSION: Mild atherosclerosis of the abdominal aorta which is widely patent with a minimal luminal diameter of 18 x 17 mm in the infrarenal segment. Moderate atherosclerosis of the bilateral iliofemoral branches. The bilateral common iliac, external iliac and common femoral arteries are patent, measuring 6 mm or greater. Mild wall thickening of the underdistended bladder. This could simply be the result of underdistention however a mild cystitis is not excluded. Clinical correlation and correlation with urinalysis recommended. at 1723 Reported and signed by: Wood Duran M.D. CC: Jose Reinoso Technologist:Berry Hearn RT(R)(CT) CTDI: DLP: Trnscb Date/Time: 05/31/2022 (1722) [email or web address] Orig Print D/T: S: 05/31/2022 (1722) PAGE 3 Signed Report- CTA ABD PEL W [id number] 00:00:00[facility] : 1950 Sex: M Name: ALBERT SANCHEZ [facility] : 1950 Age/S: 72 / M [address] [place] [address] Blvd Unit #: [id number] Loc: [place] [address] Phys: Jose Reinoso Acct: [id number] Dis Date: Status: REG CLI PHONE #: [phone] Exam Date: 05/31/2022 1012 FAX #: [phone] Reason: 135.0, SEVERE AORTIC STENOSIS. EXAMS: CPT CODE: [id number] CTA ABD PEL W CONT 21872 PROCEDURE INFORMATION: Exam: CTA Heart And Coronary Arteries With Contrast Exam date and time: 05/31/2022 10:09 AM Age: 72 years old Clinical indication: Other: Aortic stenosis TECHNIQUE: Imaging protocol: CT angiography of the heart, coronary arteries, and bypass grafts (when present) with contrast including 3D image postprocessing. Standard prospective cardiac-gated CAC scoring protocol was used for image acquisition. Following intravenous contrast administration, ECG gated CTA was performed. 3D rendering (Not supervised by radiologist): MIP and/or 3D reconstructed images were created by the technologist. Radiation optimization: All CT scansat this facility use at least one of these dose optimization techniques: automated exposure control;mA and/or kV adjustment per patient size (includes targeted exams where dose is matched to clinical indication); or iterative reconstruction. Contrast material: ISOVUE 370; Contrast volume: 100 ml; Contrast route: INTRAVENOUS (IV); Pharmacological intervention: None. COMPARISON: No relevant prior studies available. FINDINGS: CARDIAC CTA/THORACIC CTA: AORTIC VALVE: There is a trileaflet aortic valve.There is severe calcification involving the aortic valve leaflets. The total calcium score of the aortic valve is 1658. THORACIC AORTA: There is mild atherosclerosis of the thoracic aorta. There is a left sided aortic arch. There is no evidence of aortic dissection. Aortic arch vessels are patent. THORACIC AORTIC MEASUREMENTS: Thoracic aortic measurements are obtained at 30 percent phase of the R-R in terval. Aortic annulus 26.6 x 21 mm, area of 4.18 cm2 and perimeter of 73.9 mm. SOV 34.5 x 36.1 x 32.6 mm STJ 28.8 x 28.9 mm At the level of the pulmonary artery bifurcation, the ascending aorta measures 31.8 x 33.6 mm. The distance from the annulus to the RCA ostium is 22.9 mm. The distance from the annulus to the LM ostium is 15.1 mm. CORONARY ARTERIES: Normal origin of the coronary arteries. Thereis coronary atherosclerosis however the study was not tailored for the assessment of the coronaries.CARDIAC CHAMBERS: Mild cardiomegaly. No LA or LV thrombus. Mild PAGE 1 Signed Report (CONTINUED) Name: ALBERT SANCHEZ [facility] : 1950 Age/S: 72 / M [address] [place] [address] Unit #: [id number] Loc: [place] [address] Phys: Jose Reinoso [facility] Acct: [id number] Dis Date: Status: REG CLI PHONE #: [phone] Exam Date: 05/31/2022 1012 FAX #: [phone] Reason: 135.0, SEVERE AORTIC STENOSIS. EXAMS: CPT CODE: [id number] CTA ABD PEL W CONT 03081 (Continued) mitral annular calcification.PERICARDIUM: No evidence of pericardial effusion. MEDIASTINUM: Mild enlargement of mediastinal lymphnodes in the right paratracheal region, left paratracheal region, left AP window, bilateral hilar and infracarinal stations, the largest in the right paratracheal region measuring up to 18 mm. LUNGS AND PLEURA: There are small bilateral pleural effusions with mild adjacent atelectasis. There is mild interlobular septal thickening bilaterally with mild ground-glass changes consistent with mild edema. BONES AND SOFT TISSUES: There are no bony lytic or blastic lesions. IMPRESSION: Severe calcification of the aortic valve compatible with aortic stenosis. The total calcium score of the aortic valve is 1658. Aortic annulus 26.6 x 21 mm, area of 4.18 cm2 and perimeter of 73.9 mm. Mild pulmonary edema andsmall bilateral pleural effusions with mild adjacent atelectasis. Mild enlargement mediastinal lymphnodes, measuring up to 18 mm in the right paratracheal region. In the presence of edema, these are most likely congestive in nature . Follow-up CT chest with IV contrast is suggested in 6 months to reassess. CTA ABDOMEN AND PELVIS ABDOMINAL AORTA: There is mild atherosclerosis involving the abdominal aorta and moderate atherosclerosis involving the iliofemoral branches. The celiac artery, superior mesenteric artery, and inferior mesenteric artery are patent. There is 1 right and 1 left renal arteries. MINIMAL LUMINAL DIAMETERS OF ABDOMINAL AORTA AND BRANCHES: The minimal luminal diameter of the aorta is 18 x 17 mm in the infrarenal segment. The RIGHT common iliac, external iliac and common femoralarteries are patent, measuring 6 mm or greater. The LEFT common iliac, external iliac and common femo ral arteries are patent, measuring 6 mm or greater. ABDOMEN and PELVIS: The liver, gallbladder, biliary ducts, pancreas, spleen, kidneys are unremarkable. Mild thickening of the bilateral adrenal glands, consistent with mild hyperplasia. The stomach, small bowel and colon are unremarkable. The appendix is normal. There is no intra-abdominal or retroperitoneal adenopathy. Mild wall thickening of the underdistended bladder. Prostate gland and seminal vesicles within normal limits. BONES AND SOFT TISSUES: There are no bony lytic or blastic lesions. PAGE 2 Signed Report (CONTINUED) Name: ALBERT SANCHEZ [facility] : 1950 Age/S: 72 / M [address] [place] [address] Blvd Unit #: [id number] Loc: [place] [address] Phys: Jose Reinoso REGENERATOR OPERATOR Acct: [id number] Dis Date: Status: REG CLI PHONE #: [phone] Exam Date: 05/31/2022 1012 FAX #: [phone] Reason: 135.0, SEVERE AORTIC STENOSIS. EXAMS: CPT CODE: [id number] CTA ABD PEL W CONT 55395 (Continued) Small uncomplicated fat containing umbilical hernia. IMPRESSION: Mild atherosclerosis of the abdominal aorta which is widely patent with a minimal luminal diameter of 18 x 17 mm in the infrarenal segment. Moderate atherosclerosis of the bilateral iliofemoral branches. The bilateral common iliac, external iliac and common femoral arteries are patent, measuring 6 mm or greater. Mild wall thickening of the underdistended bladder. This could simply be the result of underdistention however a mild cystitis is not excluded. Clinical correlation and correlation with urinalysis recommended. at 1723 Reported and signed by: Wood Duran M.D. CC: Jose Reinoso Technologist:Berry Hearn RT(R)(CT) CTDI: DLP: Trnscb Date/Time: 05/31/2022 (172) [email or web address] Orig Print D/T: S: 05/31/2022 (1794) PAGE 3 Signed Report- CT ANGIO [id number] 00:00:00[facility] : 1950 Sex: M Name: ALBERT SANCHEZ [facility] [employer] : 1950 Age/S: 72 / M [address] [place] [address] Unit #: [id number] Loc: [place] [address] Phys: Jose Reinoso [facility] Acct: [id number] Dis Date: Status: REG CLI PHONE #: [phone] Exam Date: 05/31/2022 1012 FAX #: [phone] Reason: 135.0 , SEVERE AORTIC STENOSIS. EXAMS: CPT CODE: [id number] CT ANGIO CHEST 41074 PROCEDURE INFORMATION: Exam: CTA Heart And Coronary Arteries With Contrast Exam date and time: 05/31/2022 10:09 AM Age: 72 years old Clinical indication: Other: Aortic stenosis TECHNIQUE: Imaging protocol: CT angiography of the heart, coronary arteries, and bypass grafts (when present) with contrast including 3D image postprocessing. Standard prospec tive cardiac-gated CAC scoring protocol was used for image acquisition. Following intravenous contrast administration, ECG gated CTA was performed. 3D rendering (Not supervised by radiologist): MIP and/or 3D reconstructed images were created by the technologist. Radiation optimization: [facility] use at least one of these dose optimization techniques: automated exposure control; mAand/or kV adjustment per patient size (includes targeted exams where dose is matched to clinical indication); or iterative reconstruction. Contrast material: ISOVUE 370; Contrast volume: 100 ml; Contra st route: INTRAVENOUS (IV); Pharmacological intervention: None. COMPARISON: No relevant prior studies available. FINDINGS: CARDIAC CTA/THORACIC CTA: AORTIC VALVE: There is a trileaflet aortic valve. There is severe calcification involving the aortic valve leaflets. The total calcium score of the aortic valve is 1658. THORACIC AORTA: There is mild atherosclerosis of the thoracic aorta. There is a leftsided aortic arch. There is no evidence of aortic dissection. Aortic arch vessels are patent. THORACIC AORTIC MEASUREMENTS: Thoracic aortic measurements are obtained at 30 percent phase of the R-R interval. Aortic annulus 26.6 x 21 mm, area of 4.18 cm2 and perimeter of 73.9 mm. SOV 34.5 x 36.1 x 32.6mm STJ 28.8 x 28.9 mm At the level of the pulmonary artery bifurcation, the ascending aorta wjmsetni13.8 x 33.6 mm. The distance from the annulus to the RCA ostium is 22.9 mm. The distance from the annulus to the LM ostium is 15.1 mm. CORONARY ARTERIES: Normal origin of the coronary arteries. There is coronary atherosclerosis however the study was not tailored for the assessment of the coronaries. CARDIAC CHAMBERS: Mild cardiomegaly. No LA or LV thrombus. Mild PAGE 1 Signed Report (CONTINUED) Name:ALBERT SANCHEZ [facility] Dagmar Jeronimo : 1950 Age/S: 72 / M [address] [place] [address] Blvd Unit #: [id number] Loc: [place] [address] Phys: Jose Reinoso REGENERATOR OPERATOR Acct: [id number] Dis Date: Status: REG CLI PHONE #: [phone] Exam Date: 05/31/2022 1012 FAX #: [phone] Reason: 135.0 , SEVERE AORTIC STENOSIS. EXAMS: CPT CODE: [id number] CT ANGIO CHEST 27496 (Continued) mitral annular calcification. PERICARDIUM: No evidence of pericardial effusion. MEDIASTINUM: Mild enlargement of mediastinal lymph nodesin the right paratracheal region, left paratracheal region, left AP window, bilateral hilar and infracarinal stations, the largest in the right paratracheal region measuring up to 18 mm. LUNGS AND PLEURA: There are small bilateral pleural effusions with mild adjacent atelectasis. There is mild interlobular septal thickening bilaterally with mild ground-glass changes consistent with mild edema. BONES AND SOFT TISSUES: There are no bony lytic or blastic lesions. IMPRESSION: Severe calcification of theaortic valve compatible with aortic stenosis. The total calcium score of the aortic valve is 1658. Aortic annulus 26.6 x 21 mm, area of 4.18 cm2 and perimeter of 73.9 mm. Mild pulmonary edema and smallbilateral pleural effusions with mild adjacent atelectasis. Mild enlargement mediastinal lymph nodes, measuring up to 18 mm in the right paratracheal region. In the presence of edema, these are most likely congestive in nature . Follow-up CT chest with IV contrast is suggested in 6 months to reassess.CTA ABDOMEN AND PELVIS ABDOMINAL AORTA: There is mild atherosclerosis involving the abdominal aorta and moderate atherosclerosis involving the iliofemoral branches. The celiac artery, superior mesenteric artery, and inferior mesenteric artery are patent. There is 1 right and 1 left renal arteries. MINIMAL LUMINAL DIAMETERS OF ABDOMINAL AORTA AND BRANCHES: The minimal luminal diameter of the aorta is 18 x 17 mm in the infrarenal segment. The RIGHT common iliac, external iliac and common femoral arteries are patent, measuring 6 mm or greater. The LEFT common iliac, external iliac and common femoral arteries are patent, measuring 6 mm or greater. ABDOMEN and PELVIS: The liver, gallbladder, biliary ducts, pancreas, spleen, kidneys are unremarkable. Mild thickening of the bilateral adrenal glands, consistent with mild hyperplasia. The stomach, small bowel and colon are unremarkable. The appendix is normal. There is no intra-abdominal or retroperitoneal adenopathy. Mild wall thickening of the underdistended bladder. Prostate gland and seminal vesicles within normal limits. BONES AND SOFT TISSUES: There are no bony lytic or blastic lesions. PAGE 2 Signed Report (CONTINUED) Name: ALBERT SANCHEZ [facility] : 1950 Age/S: 72 / [place] [address] [place] [address] Unit #: [id number] Loc: [place] [address] Phys: Jose Reinoso Acct: [id number] Dis Date: Status: REG CLI PHONE #: [phone] Exam Date: 05/31/2022 1012 FAX #: [phone] Reason: 135.0 , SEVERE AORTIC STENOSIS. EXAMS: CPT CODE:[id number] CT ANGIO CHEST 70778 (Continued) Small uncomplicated fat containing umbilical hernia. IMPRESSION: Mild atherosclerosis of the abdominal aorta which is widely patent with a minimal luminal diameter of 18 x 17 mm in the infrarenal segment. Moderate atherosclerosis of the bilateral iliofemoral branches. The bilateral common iliac, external iliac and common femoral arteries are patent, measuring 6 mm or greater. Mild wall thickening of the underdistended bladder. This could simply be the result of underdistention however a mild cystitis is not excluded. Clinical correlation and correlation with urinalysis recommended. at 1723 Reported and signed by: Wood Duran M.D. 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 [facility] BASIC METABOLIC [id number] 16:24:00 Test Item Value Reference Range Interpretation Comments SODIUM (test code = NA) 138 mEq/L 134-147 N POTASSIUM (test code = 3.6 mEq/L 3.4-5.0 N K) CHLORIDE (test code = 105 mEq/L 100-108 N CL) CARBON DIOXIDE (test 27 mEq/l 21-33 N code = CO2) ANION GAP (test code = 10 0-20 N GAP) GLUCOSE (test code = 177 mg/dL 70-110 H GLU) BLOOD UREA NITROGEN 14 mg/dL 7-18 N (test code = BUN) GLOMERULAR FILTRATION 39.6 70-80 L Units of measure = RATE (test code = GFR) ml/mi n/1.73 m2 CREATININE (test code = 1.7 mg/dL 0.6-1.3 H CREAT) CALCIUM (test code = 8.9 mg/dL 8.0-10.5 N CA) PROTHROMBIN [id number] 16:19:00 Test Item Value Reference Range Interpretation Comments PROTHROMBIN TIME 13.0 SECONDS 9.3-12.9 H PATIENT (test code = PTP) INTERNATIONAL NORMAL 1.2 0.8-1.2 N TARGET INR BY RATIO (test code = INDICATIO N Indication INR) INR1. Prophylax is of venous thrombos is 2.0 - 3.0 (orthoped ic surgery), Proph ylaxis of venous throm bosis (other than hig h-risk surgery), Treat ment of Deep Vein Thrombosis/Pulm onary Embolism, Preve ntion of systemic emb olism - Tissue heart va lves, Acute Myocardia l Infarction (to prevent systemic emboli sm), Valvular heart disease, Atrial Fibrillation, Bileaflet mecha nical valve in aortic position.2. Mec hanical prosthetic valv es (high risk), 2. 5 - 3.5 Presence of Lup us Anticoagulant o r Antiphospholipi d Antibodies, Pre vention of systemic emb olism - Acute Myocardia l Infarction (to prevent recurrent infar ct). CBC W/AUTO [id number] 16:09:00 Test Item Value Reference Range Interpretation Comments WHITE BLOOD CELL (test code = 6.3 x10 3/uL 4.5-11.0 N WBC) RED BLOOD CELL (test code = 5.98 x10 6/uL 4.00-5.60 H RBC) HEMOGLOBIN (test code = HGB) 16.0 g/dL 12.5-16.9 N HEMATOCRIT (test code = HCT) 50.7 % 37.5-50.7 N MEAN CELL VOLUME (test code = 84.8 fL 81.0-99.0 N MCV) MEAN CELL HGB (test code = MCH) 26.8 pg 27.0-33.0 L MEAN CELL HGB CONCETRATION 31.6 g/dL 33.0-37.0 L (test code = MCHC) RED CELL DISTRIBUTION WIDTH CV 16.5 % 11.5-14.5 H (test code = RDW) RED CELL DISTRIBUTION WIDTH SD 49.6 fL 37.0-54.0 N (test code = RDW-SD) PLATELET COUNT (test code = 347 x10 3/uL 150-400 N PLT) MEAN PLATELET VOLUME (test code 11.0 fL 7.0-9.0 H = MPV) NEUTROPHIL % (test code = NT%) 63.5 % 56.0-77.0 N IMMATURE GRANULOCYTE % (test 0.2 % 0.0-2.0 N code = IG%) LYMPHOCYTE % (test code = LY%) 25.9 % 14.0-32.0 N MONOCYTE % (test code = MO%) 7.7 % 4.8-9.0 N EOSINOPHIL % (test code = EO%) 1.6 % 0.3-3.7 N BASOPHIL % (test code = BA%) 1.1 % 0.0-2.0 N NUCLEATED RBC % (test code = 0.0 % 0-0 N NRBC%) NEUTROPHIL # (test code = NT#) 3.98 x10 3/uL 2.0-7.6 N IMMATURE GRANULOCYTE # (test 0.01 x10 3/uL 0.00-0.03 N code = IG#) LYMPHOCYTE # (test code = LY#) 1.62 x10 3/uL 1.0-3.8 N MONOCYTE # (test code = MO#) 0.48 x10 3/uL 0.1-0.8 N EOSINOPHIL # (test code = EO#) 0.10 x10 3/uL 0.0-0.2 N BASOPHIL # (test code = BA#) 0.07 x10 3/uL 0.0-0.2 N NUCLEATED RBC # (test code = 0.00 x10 3/uL 0.0-0.1 N NRBC#) MANUAL DIFF REQUIRED (test code NO = MDIFF)
--- NOTE | 2022-06-08 22:21 | RAD REPORT ---
EXAM DESCRIPTION: RAD - Chest Single View - 06/08/2022 10:13 pm CLINICAL HISTORY: DYSPNEA Chest pain. COMPARISON: Chest Single View dated 03/17/2022; Chest Single View dated 03/20/2020; Chest Single View dated 12/07/2019; Chest Single View dated 12/07/2019 FINDINGS: Portable technique limits examination quality. Moderate bilateral pulmonary opacities are present likely representing pulmonary edema. The heart is moderately enlarged in size. Small bilateral pleural effusions. IMPRESSION: Moderate CHF versus volume overload pattern.
--- NOTE | 2022-06-08 22:30 | EDPHYS ---
Physician Documentation [facility] Name: Julianna Kearns Age: 72 yrs Sex: Male : 1950 Arrival Date: 06/08/2022 Time: 21:32 Bed 17 Private MD: Bassam Donis E ED Physician Edouard Farley HPI: 06/08 22:04 This 72 yrs old Black Male presents to ER via Wheelchair with complaints of sob. rn 22:04 The patient has shortness of breath at rest, with light activity. Onset: The rn symptoms/episode began/occurred today. Duration: The symptoms are continuous. The patient's shortness of breath is aggravated by exertion, light activity, talking, walking, is alleviated by rest. Associated signs and symptoms: Pertinent negatives: chest pain, non-productive cough, fever, hemoptysis. Severity of symptoms: At their worst the symptoms were moderate in the emergency department the symptoms are unchanged. The patient has experienced similar episodes in the past. The patient has been recently seen by a physician:. Pt reports sob, over last week, worse tonight, no chest pain, + swelling of lower extremities, does not feel ill. states not compliant with diuretics as he should be. Sees Dr. Muñoz. . Historical: - Allergies: 21:44 PENICILLINS; ha1 - Home Meds: 06/09 00:00 alprazolam 1 mg Oral Tb24 1 tab once daily [Active]; carvedilol 25 mg Oral tab 1 tab 2 kd3 times per day [Active]; clopidogrel 75 mg Oral tab [Active]; furosemide 40 mg Oral tab [Active]; hydralazine 10 mg Oral tab [Active]; empagliflozin 25 mg Oral 0.5 tab once daily [Active]; Insulin Glargine 100 unit/mL Sub-Q 70 unit twice a day [Active]; glipizide 10 mg Oral tab 1 tab 2 times per day [Active]; losartan 100 mg Oral tab 1 tab once daily [Active]; atorvastatin 80 mg Oral tab [Active]; hydrochlorothiazide 25 mg Oral tab 1 tab once daily [Active]; metformin 1,000 mg Oral tab [Active]; rivaroxaban 20 mg Oral 1 tab once daily [Active]; sotalol 120 mg Oral tab [Active]; spironolactone 50 mg Oral tab 1 tab once daily [Active]; rosuvastatin 20 mg Oral tab 0.5 tab once daily [Active]; amlodipine 10 mg tab [Active]; ticagrelor 90 mg Oral tab [Active]; Victoza 2-Alex subcutaneous [Active]; - PMHx: 06/08 21:44 Atrial Fib; Diabetes - NIDDM; Hypercholesterolemia; Hypertension; ha1 - Immunization history:: Adult Immunizations up to date. - Social history:: Smoking status: Patient/guardian denies using tobacco, but has a distant history of tobacco abuse. - Family history:: not pertinent. - Hospitalizations: : The patient was recently seen at [facility]. ROS: 22:04 Constitutional: Negative for fever, chills, and weight loss, Eyes: Negative for injury, rn pain, redness, and discharge, Neck: Negative for injury, pain, and swelling, Cardiovascular: + edema, negative for chest pain Respiratory: + dyspnea Abdomen/GI: Negative for abdominal pain, nausea, vomiting, diarrhea, and constipation, MS/Extremity: Negative for injury and deformity, Skin: Negative for injury, rash, and discoloration, Neuro: Negative for headache, weakness, numbness, tingling, and seizure. Exam: 22:04 Constitutional: This is a well developed, well nourished patient who is awake, alert, rn + mild tachypnea Head/Face: Normocephalic, atraumatic. Cardiovascular: Regular rate and rhythm. Respiratory: + mild tachypnea, no wheezing, + diminished breath sounds at bilateral bases. Abdomen/GI: Soft, non-tender Skin: Warm, dry, no cyanosis MS/ Extremity: Pulses equal, no cyanosis. 2+ pitting edema bilateral lower ext. Neuro: Awake and alert, GCS 15 23:48 ECG was reviewed by the Attending Physician. rn Vital Signs: 21:38 BP 199 / 136; Pulse 95; Resp 21; Pulse Ox 96% on R/A; ha1 21:48 Weight 93.89 kg; ha1 21:48 Temp 98.7(O); ha1 22:15 BP 230 / 116; Pulse 88; Resp 24 S; Pulse Ox 95% on R/A; ha1 23:16 BP 215 / 126; Pulse 94; Resp 30; Pulse Ox 96% ; kd3 23:59 BP 201 / 106; Pulse 95; Resp 26; Pulse Ox 97% on R/A; kd3 06/09 00:44 BP 190 / 90; Pulse 83; Pulse Ox 100% on BiPAP; kd3 00:46 Pulse Ox 100% on BiPAP; kd3 00:46 BP 216 / 105; Pulse 95; Pulse Ox 100% on BiPAP; kd3 01:17 BP 212 / 110; ha1 01:27 BP 196 / 106; kd3 02:08 BP 191 / 100; ha1 03:21 BP 185 / 98; Pulse 80; Resp 26 A; Pulse Ox 100% on BiPAP; ha1 MDM: 06/08 21:34 Patient medically screened. rn 22:28 Differential diagnosis: CHF exacerbation, Myocardial Infarction pneumonia, rn Pneumothorax. Data reviewed: vital signs, nurses notes, old medical records, lab test result(s), EKG, radiologic studies, plain films, and as a result, I will admit patient. Counseling: I had a detailed discussion with the patient and/or guardian regarding: the historical points, exam findings, and any diagnostic results supporting the discharge/admit diagnosis, lab results, radiology results, the need for further work-up and treatment in the hospital. Response to treatment: the patient's symptoms have mildly improved after treatment, and as a result, I will admit patient. Admission orders: after a detailed discussion of the patient's condition and case, the admit orders are written by me. 06/08 21:34 Order name: BMP; Complete Time: 00:06/08 21:34 Order name: Blood Culture Adult (2) rn 06/08 21:34 Order name: CBC with Diff; Complete Time: 00:06/08 21:34 Order name: Hepatic Function; Complete Time: 00:12 06/08 21:34 Order name: Magnesium; Complete Time: 00:06/08 21:34 Order name: NT PRO-BNP; Complete Time: 00:06/08 21:34 Order name: PT-INR; Complete Time: 00:06/08 21:34 Order name: Ptt, Activated; Complete Time: 00:12 06/08 21:34 Order name: Troponin HS; Complete Time: 00:12 06/08 21:34 Order name: SARS RAPID; Complete Time: 00:12 06/08 23:53 Order name: ABG; Complete Time: 00:12 kd3 06/09 04:34 Order name: Urinalysis; Complete Time: 05:18 EDMS 06/09 05:35 Order name: Creatine Phosphokinase EDMS 06/09 05:35 Order name: CKMB Creatine Kinase MB EDMS 06/08 21:34 Order name: XRAY CXR (1 view); Complete Time: 22:24 rn 06/08 21:34 Order name: EKG; Complete Time: 21:35 rn 06/08 21:34 Order name: Cardiac monitoring; Complete Time: 22:35 rn 06/08 21:34 Order name: EKG - Nurse/Tech; Complete Time: 23:05 rn 06/08 21:34 Order name: IV Saline Lock; Complete Time: 23:05 rn 06/08 21:34 Order name: Labs collected and sent; Complete Time: 23:05 rn 06/08 21:34 Order name: O2 Per Protocol; Complete Time: 22:35 rn 06/08 23:46 Order name: BIPAP rn 06/09 05:35 Order name: Troponin High Sensitivity EDMS 06/09 08:31 Order name: Glucose, Ancillary Testing EDMS 06/09 10:16 Order name: Glucose, Ancillary Testing EDMS 06/09 12:40 Order name: Glucose, Ancillary Testing EDMS 06/08 21:34 Order name: O2 Sat Monitoring; Complete Time: 22:35 rn EC:48 Rate is 87 beats/min. Rhythm is regular. QRS [place] is Normal. TN interval is normal. QRS rn interval is normal. QT interval is prolonged at 500 msec. No Q waves. T waves are Normal. No ST changes noted. Clinical impression: NSR w/ Non-specific ST/T Changes. Interpreted by me. Reviewed by me. Administered Medications: 23:24 Drug: Lasix (furosemide) 60 mg Route: IVP; Site: right antecubital; 06/09 00:45 Follow up: Response: No adverse reaction kd3 06/08 23:24 Drug: hydrALAZINE 10 mg Route: IVP; Site: right antecubital; ha1 06/09 00:45 Follow up: Response: No adverse reaction; Blood pressure is lowered kd3 00:46 CANCELLED (Physician Discretion): Labetalol 10 mg IV at bolus once sb3 01:16 Drug: Labetalol 20 mg Route: IV; Rate: 10 mg/min; Infused Over: 2 mins; Site: right ha1 antecubital; 02:08 Follow up: BP 191 / 100; Response: No adverse reaction; Blood pressure is lowered; IV ha1 Status: Completed infusion; IV Intake: 50ml Disposition Summary: 06/08/22 22:29 Hospitalization Ordered Hospitalization Status: Inpatient Admission rn Provider: Joel Garrett rn Condition: Stable rn Problem: an acute exacerbation rn Symptoms: have improved rn Bed/Room Type: Standard rn Location: Telemetry/MedSurg (Inpatient)(06/09/22 12:00) bd Room Assignment: [facility](06/09/22 12:00) bd Diagnosis - Unspecified combined systolic (congestive) and diastolic (congestive) heart failure rn - Acute pulmonary edema rn - Hypoxemia rn Forms: - Medication Reconciliation Form rn - SBAR form rn Signatures: Dispatcher [employer] EDMS Destinee Sy Roman, MD MD rn Garcia, Cindy, RN RN cg Doucette, Kyli RN RN Kirsten Flores PA PA sb3 Kasia Price RN RN ha1 Corrections: (The following items were deleted from the chart) 00:46 00:46 Labetalol 10 mg IV at bolus once ordered. sb3 sb3 01:06/08 22:29 Telemetry/MedSurg (Inpatient) rn cg 06/09 01:01 06/08 22:29 rn cg 06/09 12:00 01:01 [facility] ER HOLD cg bd 12:00 01:01 ERHOLD- cg bd
--- NOTE | 2022-06-08 22:30 | ER ---
Nurse's Notes [facility] Name: Julianna Kearns Age: 72 yrs Sex: Male : 1950 Arrival Date: 06/08/2022 Time: 21:32 Bed 17 Private MD: Bassam Donis E Diagnosis: Unspecified combined systolic (congestive) and diastolic (congestive) heart failure;Acute pulmonary edema;Hypoxemia Presentation: 06/08 21:38 Chief complaint: Patient states: i have been feeling short of breath and my oxygen is ha1 low. I was trying to wait until i went to the doctor but i just cant breath tonight. I have an issue with my heart valve that is scheduled to be fixed. Ebola Screen: No symptoms or risks identified at this time. Initial Sepsis Screen: Does the patient meet any 2 criteria? No. Patient's initial sepsis screen is negative. Does the patient have a suspected source of infection? No. Patient's initial sepsis screen is negative. Risk Assessment: Do you want to hurt yourself or someone else? Patient reports no desire to harm self or others. Onset of symptoms was June 08, 2022. 21:38 Method Of Arrival: Wheelchair ha1 21:38 Acuity: VERONICA 3 ha1 21:42 Coronavirus screen: Vaccine status: Patient reports receiving the 2nd dose of the covid ha1 vaccine. Triage Assessment: 21:44 General: Appears uncomfortable, Behavior is calm, cooperative. Pain: Denies pain. ha1 Historical: - Allergies: 21:44 PENICILLINS; ha1 - Home Meds: 06/09 00:00 alprazolam 1 mg Oral Tb24 1 tab once daily [Active]; carvedilol 25 mg Oral tab 1 tab 2 kd3 times per day [Active]; clopidogrel 75 mg Oral tab [Active]; furosemide 40 mg Oral tab [Active]; hydralazine 10 mg Oral tab [Active]; empagliflozin 25 mg Oral 0.5 tab once daily [Active]; Insulin Glargine 100 unit/mL Sub-Q 70 unit twice a day [Active]; glipizide 10 mg Oral tab 1 tab 2 times per day [Active]; losartan 100 mg Oral tab 1 tab once daily [Active]; atorvastatin 80 mg Oral tab [Active]; hydrochlorothiazide 25 mg Oral tab 1 tab once daily [Active]; metformin 1,000 mg Oral tab [Active]; rivaroxaban 20 mg Oral 1 tab once daily [Active]; sotalol 120 mg Oral tab [Active]; spironolactone 50 mg Oral tab 1 tab once daily [Active]; rosuvastatin 20 mg Oral tab 0.5 tab once daily [Active]; amlodipine 10 mg tab [Active]; ticagrelor 90 mg Oral tab [Active]; Victoza 2-Alex subcutaneous [Active]; - PMHx: 06/08 21:44 Atrial Fib; Diabetes - NIDDM; Hypercholesterolemia; Hypertension; ha1 - Immunization history:: Adult Immunizations up to date. - Social history:: Smoking status: Patient/guardian denies using tobacco, but has a distant history of tobacco abuse. - Family history:: not pertinent. - Hospitalizations: : The patient was recently seen at [facility]. Screenin:48 Abuse screen: Denies threats or abuse. Denies injuries from another. Nutritional ha1 screening: No deficits noted. Tuberculosis screening: No symptoms or risk factors identified. 23:59 Fall Risk None identified. kd3 Assessment: 21:44 General: Appears uncomfortable. Neuro: Level of Consciousness is awake, alert, obeys kd3 commands, Oriented to person, place, time, situation. Respiratory: Airway is patent Trachea midline Respiratory effort is labored. 21:46 Respiratory: Airway is patent Trachea midline Respiratory effort is shallow. ha1 22:10 General: Appears uncomfortable, Behavior is calm, cooperative. kd3 23:56 Reassessment: No changes from previously documented assessment. Patient and/or family kd3 updated on plan of care and expected duration. Pain level reassessed. pt continuing to have increased work of breathing. marinating sat around 95. RT called to bedside for assessment and placement on bipap. 06/09 00:13 General: Mrs. Kearns phone number. [phone]. kd3 02:10 Reassessment: Patient and/or family updated on plan of care and expected duration. Pain ha1 level reassessed. watching TV. 03:00 Reassessment: No changes from previously documented assessment. Patient and/or family ha1 updated on plan of care and expected duration. Pain level reassessed. Patient is alert, oriented x 3, equal unlabored respirations, skin warm/dry/pink. Vital Signs: 06/08 21:38 BP 199 / 136; Pulse 95; Resp 21; Pulse Ox 96% on R/A; ha1 21:48 Weight 93.89 kg; ha1 21:48 Temp 98.7(O); ha1 22:15 BP 230 / 116; Pulse 88; Resp 24 S; Pulse Ox 95% on R/A; ha1 23:16 BP 215 / 126; Pulse 94; Resp 30; Pulse Ox 96% ; kd3 23:59 BP 201 / 106; Pulse 95; Resp 26; Pulse Ox 97% on R/A; kd3 06/09 00:44 BP 190 / 90; Pulse 83; Pulse Ox 100% on BiPAP; kd3 00:46 Pulse Ox 100% on BiPAP; kd3 00:46 BP 216 / 105; Pulse 95; Pulse Ox 100% on BiPAP; kd3 01:17 BP 212 / 110; ha1 01:27 BP 196 / 106; kd3 02:08 BP 191 / 100; ha1 03:21 BP 185 / 98; Pulse 80; Resp 26 A; Pulse Ox 100% on BiPAP; ha1 ED Course: 06/08 21:32 Patient arrived in ED. mr 21:32 Bsasam Donis MD is Private Physician. mr 21:34 Edouard Farley MD is Attending Physician. rn 21:42 Triage completed. ha1 21:44 Arm band placed on left wrist. ha1 21:47 Kasia Price RN is Primary Nurse. ha1 22:15 XRAY CXR (1 view) In Process Unspecified. EDMS 22:28 Joel Garrett MD is Hospitalizing Provider. rn 22:50 Inserted saline lock: 20 gauge in right antecubital area, using aseptic technique. ha1 23:04 SARS RAPID Sent. ha1 23:05 BMP Sent. ha1 23:05 CBC with Diff Sent. ha1 23:05 Blood Culture Adult (2) Sent. ha1 23:05 Hepatic Function Sent. ha1 23:05 Magnesium Sent. ha1 23:06 NT PRO-BNP Sent. ha1 23:06 PT-INR Sent. ha1 23:06 Ptt, Activated Sent. ha1 23:06 Troponin HS Sent. ha1 23:59 No provider procedures requiring assistance completed. kd3 06/09 03:49 Patient has correct armband on for positive identification. kd3 03:49 Patient admitted, IV remains in place. kd3 Administered Medications: 06/08 23:24 Drug: Lasix (furosemide) 60 mg Route: IVP; Site: right antecubital; ha1 06/09 00:45 Follow up: Response: No adverse reaction kd3 06/08 23:24 Drug: hydrALAZINE 10 mg Route: IVP; Site: right antecubital; ha1 06/09 00:45 Follow up: Response: No adverse reaction; Blood pressure is lowered kd3 00:46 CANCELLED (Physician Discretion): Labetalol 10 mg IV at bolus once sb3 01:16 Drug: Labetalol 20 mg Route: IV; Rate: 10 mg/min; Infused Over: 2 mins; Site: right ha1 antecubital; 02:08 Follow up: BP 191 / 100; Response: No adverse reaction; Blood pressure is lowered; IV ha1 Status: Completed infusion; IV Intake: 50ml Medication: 00:00 VIS not applicable for this client. kd3 Intake: 02:08 IV: 50ml; Total: 50ml. ha1 Output: 00:53 Urine: 1500ml (Voided); Total: 1500ml. ha1 02:45 Urine: 650ml (Voided); Total: 2150ml. ha1 Outcome: 06/08 22:29 Decision to Hospitalize by Provider. rn 06/09 03:48 Admitted to ER Hold. Please see [facility] for further documentation. kd3 Condition: stable Discharge instructions given to patient, Instructed on follow up and referral plans. the need for admit, Demonstrated understanding of instructions. 15:00 Patient left the ED. iw Signatures: Dispatcher [employer] Marva Christie Irene, Edouard Yancey RN, MD MD rn Doucette, Kyli, RN RN kd3 Kasia Price RN RN ha1 Brown, Sophia PA sb3
[2022-06-08] MEDS ORDERED: FUROSEMIDE 20 MG/ 2ML VIAL ONE (23:20)
[2022-06-08] MEDS ORDERED: FUROSEMIDE 40 MG/4 ML VIAL ONE (23:20)
[2022-06-08] MEDS ORDERED: HYDRALAZINE HCL 20 MG/ML VIAL ONE (23:20)
[2022-06-08 23:46] LABS: Absolute Lymphocytes (CBC) 1.5 K/uL (0.7-4.9); Hematocrit 47.7 % (39.6-49.0); Lymphocytes % 27.2 % (15.3-44.8); MCV 83.6 fL (80-100); MPV 8.6 fL (7.6-11.3)
[2022-06-08 23:57] LABS: Albumin 2.1 g/dL (3.4-5.0); Bilirubin Direct 0.1 mg/dL (0-0.2); Bilirubin Total 0.3 mg/dL (0.2-1.0); Magnesium 1.8 mg/dL (1.8-2.4); Potassium 3.4 mmol/L (3.5-5.1); Protein, Total 6.7 g/dL (6.4-8.2)
[2022-06-09 00:03] LABS: Troponin High Sensitivity 96.3 pg/mL (<58.9)
[2022-06-09 00:03] LABS: SARS-CoV-2 Antigen Rapid Res Negative (Negative)
[2022-06-09 00:08] LABS: Protime INR 1.09
[2022-06-09 00:11] LABS: Arterial Blood Carboxyhemoglob 1.5 % (0-1.5); Blood Gas Oxyhemoglobin 94.6 % (94-97); Blood O2 Saturation 97.1 % (92-98.5)
--- NOTE | 2022-06-09 00:44 | P.HP ---
Certification for Inpatient Patient admitted to: Inpatient With expected LOS: >2 Midnights Patient will require the following post-hospital care: None Practitioner: I am a practitioner with admitting privileges, knowledge of patient current condition, hospital course, and medical plan of care. Services: Services provided to patient in accordance with Admission requirements found in Title 42 Section 412.3 of the Code of Federal Regulations Patient History Date of Service: 06/09/22 Primary Care Provider: Jewels Reason for admission: CHF Exacerbation History of Present Illness: Patient is a 72-year-old male with history of CAD, CHF, and insulin dependent diabetes who presented to the ED with complaints of worsening shortness of breath x 1 week. He reports that he has been taking his medications as prescribed, but states he is not good about taking his lasix. In the ED, systolic blood pressure up to 220 recorded. Patient noted to be dyspneic at rest. Chest x-ray demonstrated moderate CHF vs volume overload. Labs significant for Cr 1.8, trop HS 96.3, BNP 68593. Patient given IV hydralazine, IV Lasix, and put on bipap in the ED. He diuresed well with the IV Lasix and stated he was feeling better with bipap. Systolic blood pressure still running high. Patient admitted for management of CHF exacerbation. Allergies Penicillins Adverse Reaction (Verified 03/17/20 15:42) Hives Home medications list reviewed: Yes Home Medications: Clopidogrel Bisulfate [Plavix*] 75 mg PO DAILY 03/18/22 Amlodipine [Norvasc*] 10 mg PO DAILY #30 tab 03/19/22 Aspirin [Aspirin EC 81 MG] 81 mg PO DAILY #30 tablet. 03/19/22 Atorvastatin Calcium [Lipitor] 80 mg PO BEDTIME #30 tab 03/19/22 Cholecalciferol (Vitamin D3) [Vitamin D3] 50 mcg PO DAILY 30 Days #30 capsule 03/19/22 Docosahexanoic AC/Epa [Fish Oil 1,000 MG*] 1,000 mg PO DAILY #30 cap 03/19/22 Empagliflozin [Jardiance] 25 mg PO DAILY 30 Days #30 tablet 03/19/22 Folic Acid/Multivit-Min/Lutein [Multi-Vitamin Gummies] 1 each PO DAILY #30 tab.chew 03/19/22 Furosemide [Lasix*] 40 mg PO BIDL 30 Days #60 tab 03/19/22 Hydralazine [Apresoline*] 20 mg PO TID #90 tab 03/19/22 Insulin Glargine,Hum.rec.anlog [Lantus] 25 unit SQ BEDTIME #10 ml 03/19/22 Insulin Glargine,Hum.rec.anlog [Lantus] 70 unit SQ DAILY #10 ml 03/19/22 Losartan Potassium [Cozaar*] 100 mg PO DAILY #60 tablet 03/19/22 Metformin HCl 1,000 mg PO DAILY 30 Days #30 tablet 03/19/22 Sotalol HCl [Betapace*] 120 mg PO BID 6AM 6PM #60 tab 03/19/22 - Past Medical/Surgical History Diabetic: Yes -: hypertension -: hyperlipidemia -: Atrial fibrillation -: IDDM -: NH -: heart stents Psychosocial/ Personal History: Patient is . - Family History Brother -: Heart disease, Hypertension - Social History Smoking Status: Former smoker Alcohol use: Yes CD- Drugs: No Caffeine use: No Place of Residence: Home Review of Systems Respiratory: Shortness of Breath Cardiovascular: Orthopnea, Edema Physical Examination - Physical Exam General: Alert, In no apparent distress HEENT: Atraumatic, PERRLA, EOMI, Sclerae nonicteric Neck: Supple, 2+ carotid pulse no bruit, No LAD, Without JVD or thyroid abnormality Respiratory: Crackles/rales Cardiovascular: Regular rate/rhythm, Normal S1 S2, Edema Gastrointestinal: Normal bowel sounds, No tenderness Musculoskeletal: No tenderness Integumentary: No rashes Neurological: Normal speech, Normal strength at 5/5 x4 extr, Normal tone, Normal affect - Studies Laboratory Data (last 24 hrs) 06/08/22 22:56: PT 12.0, INR 1.09, APTT 36.2 06/08/22 22:56: WBC 5.70, Hgb 15.6, Hct 47.7, Plt Count 260 06/08/22 22:56: Sodium 141, Potassium 3.4 L, BUN 19 H, Creatinine 1.80 H, Glucose 188 H, Magnesium 1.8, Total Bilirubin 0.3, AST 11 L, ALT 17, Alkaline Phosphatase 66 Assessment and Plan - Problems (Diagnosis) (1) CHF (congestive heart failure) Current Visit: Yes Status: Acute Qualifiers: Heart failure type: diastolic Heart failure chronicity: acute on chronic Qualified Code(s): I50.33 - Acute on chronic diastolic (congestive) heart failure (2) Malignant hypertension Current Visit: Yes Status: Acute (3) Type 2 diabetes mellitus Current Visit: Yes Status: Chronic Qualifiers: Diabetes mellitus termite control representative insulin use: with termite control representative use Diabetes mellitus complication status: with hyperglycemia Qualified Code(s): E11.65 - Type 2 diabetes mellitus with hyperglycemia; Z79.4 - 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 vs. transplanted heart: [place] heart Associated angina: without angina Qualified Code(s): I25.10 - Atherosclerotic heart disease of [place] coronary artery without angina pectoris - Plan -Patient with uncontrolled BP likely secondary to noncompliance -Bipap as needed -Aggressively treat blood pressure. Hydralazine IV as needed. -Patient had cardiac cath on 04/26/22 with a recommendation of echo to evaluate the aortic valve better. Do not see any recent echo on file. Ordered. -Cardiology consult. IV Lasix for diuresis -Initial troponin elevated, but has been higher on previous admissions. Will trend -Aspirin daily -Monitor intake and output. daily weight. fluid restriction -Insulin sliding scale for glucose management. -Check lipid profile, hemoglobin A1c. -Reconcile and continue other home medications -Lovenox for VTE prophylaxis -Full code Discharge Plan: Home Plan to discharge in: Greater than 2 days - Advance Directives Does patient have a Living Will: No Does patient have a Durable POA for Healthcare: Yes - Code Status/Comfort Care Code Status Assessed: Yes (Full) Critical Care: No Time Spent Managing Pts Care (In Minutes): 50
[2022-06-09] MEDS ORDERED: LABETALOL 20 MG/4ML SYRINGE IV ONE (01:06)
[2022-06-09] MEDS ORDERED: NA CHLORIDE 0.9% 50 ML ONE (01:10)
[2022-06-09] MEDS ORDERED: ALBUTEROL 2.5 MG/3 ML NEB SOL NEB PRN (03:52)
[2022-06-09] MEDS ORDERED: ONDANSETRON 4 MG/2 ML VIAL IV PRN (03:52)
[2022-06-09] MEDS ORDERED: ACETAMINOPHEN 500 MG TAB PO PRN (03:52)
[2022-06-09 04:02] VITALS: BMI 33.4
[2022-06-09] MEDS: HYDRALAZINE HCL 20 MG/ML VIAL IV PRN ×2 (04:16→15:16)
[2022-06-09] MEDS ORDERED: HYDRALAZINE HCL 20 MG/ML VIAL ONE ×2 (04:30→08:56)
[2022-06-09 04:34] LABS: Specific Gravity < 1.005 (1.005-1.030); Urine Bacteria <20 /HPF (<20); Urine Bilirubin NEGATIVE (Negative); Urine Blood Negative (Negative); Urine Clarity Clear (Clear); Urine Color Colorless (Yellow); Urine Glucose NEGATIVE (Negative); Urine Protein 2+ (Negative); Urine RBC <5 /HPF (None Seen); Urine Urobilinogen Normal (Normal)
[2022-06-09 05:33] LABS: CKMB Creatine Kinase MB 2.9 ng/mL (1.0-3.6)
[2022-06-09 05:35] LABS: Troponin High Sensitivity 95.4 pg/mL (<58.9)
[2022-06-09] MEDS ORDERED: FUROSEMIDE 20 MG/ 2ML VIAL ONE (08:56)
[2022-06-09] MEDS ORDERED: INSULIN -REGULAR HUMAN 50 UNIT/0.5 ML ML ONE ×2 (08:57→13:15)
[2022-06-09] MEDS ORDERED: ENOXAPARIN 40 MG/0.4 ML SQ ONE (08:58)
[2022-06-09] MEDS: INSULIN -REGULAR HUMAN 50 UNIT/0.5 ML ML SQ SCH ×4 (09:00→20:23)
[2022-06-09] MEDS: ENOXAPARIN 40 MG/0.4 ML SQ SCH (09:02)
[2022-06-09] MEDS: FUROSEMIDE 40 MG/4 ML VIAL IV SCH ×2 (09:09→15:16)
[2022-06-09] MEDS ORDERED: FUROSEMIDE 40 MG/4 ML VIAL ONE (09:16)
--- NOTE | 2022-06-09 10:51 | EKG ---
Test Date: 2022-06-08 Test Time: 22:58:03 Director Of Catering: KEMAL MEASUREMENT RESULTS: Intervals: Rate: 87 MS: 164 QRSD: 100 QT: 416 QTc: 500 [place]: P: 69 MS: 164 QRS: -21 T: 24 INTERPRETIVE STATEMENTS: Normal sinus rhythm Possible Left atrial enlargement Prolonged QT Abnormal ECG Compared to ECG 03/17/2022 13:18:31 Left-axis deviation no longer present T-wave abnormality no longer present Possible ischemia no longer present Electronically Signed On 06-09-22 10:49:55 CDT by Raghav Muñoz
[2022-06-09] MEDS ORDERED: PNEUMOCOCCAL VACCINE 0.5 ML IMVAC ONE (11:00)
--- NOTE | 2022-06-09 12:54 | CON ---
Date of Consultation: 06/09/2022 Reason For Consultation: Congestive heart failure. History Of Present Illness: Mr. Kearns is 72. He is very well known to us from previous office visi ts and admissions. He has a history of coronary artery disease, severe aortic stenosis paroxysmal at rial fibrillation, cerebrovascular disease, pulmonary hypertension, diabetes, hypertension, dyslipide luli, tobacco use. He recently had a heart catheterization in April 2022 showing patent left main, pat ent circumflex, patent LAD with a patent LAD stent. He had severe aortic stenosis with severe pulmon yessica hypertension, greater than 100 mmHg. He does have an ejection fraction of 35% to 40%. There was a plan for him to have a TAVR, this is still in progress. He came in with congestive heart failure. Past Medical History: As stated above. Allergies: PENICILLIN. Review of Systems: Negative. Social History: Negative. Family History: Negative. Medications At Home: Supposed to be aspirin, Lipitor, Avapro, Brilinta, Fish Oil, hydralazine Jardia nce, Lasix, losartan, sotalol, spironolactone, Victoza. Physical Examination: Vital Signs: Stable. He was in a sinus rhythm. Blood pressure was 150/80. He was afebrile. O2 sa turation was 99% on CPAP and BiPAP. His pO2 was 89, pCO2 of 36, pH 7.47. HEENT: Negative. Neck: Supple with no bruit, lymphadenopathy, JVD, or thyromegaly. Chest: Reveals rales in both bases. Cardiac: Revealed aortic stenosis. Positive S4 gallops. Regular rhythm and rate. His abdomen was benign. Extremities: Revealed 2+ edema to the knee. Skin: Dry and intact. Neurologic: He was nonfocal. Pulses were present distally bilaterally. Diagnostic Data: ABG is listed earlier. His creatinine is 1.80. His white count is normal. Hemogl obin is normal. His troponin is 95.4. Glucose is 188. His BNP was 12,000. Impression And Plan: 1.Acute on chronic systolic congestive heart failure. 2.Severe aortic stenosis. 3.Coronary artery disease. Recent catheterization showed patent stent in the left anterior descendi ng with minimal disease otherwise. 4.Severe pulmonary hypertension. 5.Paroxysmal atrial fibrillation. 6.Cerebrovascular disease. 7.Diabetes. 8.Renal insufficiency. 9.Hypertension. 10.Dyslipidemia. 11.Tobacco use. 12.Chronic obstructive pulmonary disease. I think we need to continue his home medication, increase his Lasix dose, and make arrangements for h is valve to be fixed in the very near future as an outpatient. We will continue to follow him. PRESLEY/LORNE Voice ID: [id number] Report ID: [id number]
[2022-06-09] MEDS ORDERED: HYDRALAZINE HCL 25 MG TABLET ONE (13:08)
[2022-06-09] MEDS ORDERED: AMLODIPINE 10 MG TAB ONE (13:08)
[2022-06-09] MEDS: AMLODIPINE 10 MG TAB PO SCH (13:23)
[2022-06-09] MEDS ORDERED: HYDRALAZINE HCL 25 MG TABLET PO SCH ×2 (14:00→16:00)
--- NOTE | 2022-06-09 14:45 | ECHO ---
HEIGHT: 5 ft 6 in WEIGHT: 206 lb 15.872 oz DATE OF STUDY: 06/09/[address]: Kirsten Briggs 2-DIMENSIONAL: YES M.MODE: YES DOPPLER: YES COLOR FLOW: YES TDS: NO PORTABLE: YES DEFINITY: NO BUBBLE STUDY: NO DIAGNOSIS: CONGESTIVE HEART FAILURE CARDIAC HISTORY: CATHERIZATION:YES SURGERY: NO PROSTHETIC VALVE: NO PACEMAKER: NO MEASUREMENTS (cm) DIASTOLIC (NORMALS) SYSTOLIC (NORMALS) IVSd 1.4 (0.6-1.2) LA Diam 4.1 (1.9-4.0) LVEF 4% LVIDd 4.3 (3.5-5.7) LVIDs 3.7 (2.0-3.5) %FS 15% LVPWd 1.4 (0.6-1.2) Ao Diam 2.7 (2.0-3.7) 2 DIMENSIONAL ASSESSMENT: RIGHT ATRIUM: NORMAL LEFT ATRIUM: ENLARGED RIGHT VENTRICLE: NORMAL LEFT VENTRICLE: MODERATE LEFT VENTRICULAR HYPERTROPHY TRICUSPID VALVE: MITRAL VALVE: PULMONIC VALVE: NORMAL AORTIC VALVE: CALCIFIED PERICARDIAL EFFUSION: NONE AORTIC ROOT: NORMAL LEFT VENTRICULAR WALL MOTION: MILD GLOBAL HYPOKINESIS. DOPPLER/COLOR FLOW: SEE ABOVE. COMMENTS: MILDLY DEPRESSED LEFT VENTRICULAR EJECTION FRACTION 40-45%. MILD GLOBAL HYPOKINESIS. HEAVILY CALCIFIED AORTIC VALVE WITH LIKELY SEVERE AORTIC STENOSIS AND MILD AORTIC REGURGITATION NEEDS FURTHER EVALUATION. SEVERE PULMONARY HYPERTENSION WITH RIGHT VENTRICULAR SYSTOLIC PRESSURE OF 60-65 mmHg. MODERATE TRICUSPID REGURGITATION. MILD MITRAL REGURGITATION. TECHNOLOGIST: Joaquina MARQUEZ
--- NOTE | 2022-06-09 15:32 | P.PN ---
Date of Service: 06/09/22 Patient seen and examined. He states his shortness of breath is much better. Blood pressure remains severely elevated. He denies any chest pain. He has marked leg edema. Diagnosis: Malignant hypertension Acute on chronic systolic heart failure Severe pulmonary hypertension. Plan: Continue IV Lasix. Aggressive blood pressure control. Hydralazine increased to 50 mg 3 times daily, added amlodipine. Will consider transfer to ICU for nicardipine drip if systolic blood pressure remain elevated above 200 with these measures. Cardiology input appreciated. Monitor intake and output.
[2022-06-09] MEDS: HYDRALAZINE HCL 25 MG TABLET PO SCH (20:07)
[2022-06-09] MEDS ORDERED: POTASSIUM 25 MEQ EFFERV TAB PO ONE (21:48)
[2022-06-10] MEDS: HYDRALAZINE HCL 20 MG/ML VIAL IV PRN ×2 (01:48→04:51)
[2022-06-10 05:49] LABS: Hematocrit 53.8 % (39.6-49.0); RBC Red Blood Cell Count 6.32 M/uL (4.33-5.43)
[2022-06-10 05:50] LABS: Absolute Lymphocytes (CBC) 1.2 K/uL (0.7-4.9); Lymphocytes % 15.1 % (15.3-44.8); MPV 8.9 fL (7.6-11.3)
[2022-06-10 06:02] LABS: Magnesium 1.8 mg/dL (1.8-2.4); Potassium 3.5 mmol/L (3.5-5.1)
[2022-06-10] MEDS ORDERED: MAGNESIUM SULFATE 1 gm IVPB 1 GM/100 ML BAG IV ONE ×2 (06:19→09:00)
[2022-06-10] MEDS ORDERED: POTASSIUM 25 MEQ EFFERV TAB PO ONE ×2 (06:19→09:00)
[2022-06-10] MEDS: ENOXAPARIN 40 MG/0.4 ML SQ SCH (08:40)
[2022-06-10] MEDS: FUROSEMIDE 40 MG/4 ML VIAL IV SCH ×2 (08:40→17:00)
[2022-06-10] MEDS: HYDRALAZINE HCL 25 MG TABLET PO SCH ×2 (08:40→15:44)
[2022-06-10] MEDS: INSULIN -REGULAR HUMAN 50 UNIT/0.5 ML ML SQ SCH ×3 (08:40→16:30)
[2022-06-10] MEDS: AMLODIPINE 10 MG TAB PO SCH (08:40)
[2022-06-10] MEDS ORDERED: DOXAZOSIN 2 MG TAB PO SCH (09:00)
[2022-06-10 09:23] VITALS: O2SAT 94
--- NOTE | 2022-06-10 13:37 | P.DS ---
Admission Date: 06/09/22 Discharge Date: 06/10/22 Primary Care Provider: Jewels Disposition: DC HOME/HOME HEALTH CARE Discharge Condition: FAIR Reason for Admission: CHF Exacerbation - Problems (1) Malignant hypertension Current Visit: Yes Status: Acute (2) Afib Current Visit: Yes Status: Chronic Qualifiers: Atrial fibrillation type: unspecified Qualified Code(s): I48.91 - Unspecified atrial fibrillation (3) Chronic kidney disease, stage III (moderate) Current Visit: Yes Status: Chronic Qualifiers: Chronic kidney disease stage 3 subtype: stage 3b (GFR 30-44) Qualified Code(s): N18.32 - Chronic kidney disease, stage 3b (4) Acute on chronic systolic heart failure Current Visit: Yes Status: Acute (5) Aortic stenosis Current Visit: Yes Status: Acute Brief History of Present Illness: Patient is a 72-year-old male with history of CAD, CHF, and insulin dependent diabetes who presented to the ED with complaints of worsening shortness of breath x 1 week. He reports that he has been taking his medications as prescribed, but states he is not good about taking his lasix. In the ED, systolic blood pressure up to 220 recorded. Patient noted to be dyspneic at rest. Chest x-ray demonstrated moderate CHF vs volume overload. Labs significant for Cr 1.8, trop HS 96.3, BNP 16388. Patient given IV hydralazine, IV Lasix, and put on bipap in the ED. He diuresed well with the IV Lasix and stated he was feeling better with bipap. Systolic blood pressure still running high. Patient admitted for management of CHF exacerbation. Hospital Course: Patient admitted to the medical floor and treated with IV Lasix. He was subsequently weaned off BiPAP and tolerated room air. His blood pressure was elevated with systolic in the 200s. His hydralazine dose was increased to 50 mg 3 times daily, continue the amlodipine 10 mg daily and added Cardura. Blood pressure improved with these measures. Patient is currently asymptomatic. He has significant lower extremity edema likely related to pulmonary hypertension. Vitals are currently stable, patient requesting to go home. He is discharged with a refill for his Lasix and other antihypertensives. He reported that he sometimes skips his medications. I explained and emphasized the need for him to be compliant with his Lasix and the antihypertensives to keep his blood pressure under control. Troponin was mildly elevated but trended flat. This is likely secondary to demand ischemia. Patient seen in consultation by cardiology who is assisting with arrangement for TAVR as outpatient. Vital Signs/Physical Exam: Temp Pulse Resp BP Pulse Ox 97.1 F 89 16 125/63 90 L 06/10/22 12:00 06/10/22 12:00 06/10/22 12:00 06/10/22 12:00 06/10/22 12:00 General: Alert, In no apparent distress, Oriented x3 HEENT: Mucous membr. moist/pink Neck: JVD not distended Respiratory: Clear to auscultation bilaterally, Normal air movement Cardiovascular: Regular rate/rhythm, Normal S1 S2, Edema (Bilateral legs) Gastrointestinal: Soft and benign, Non-distended, No tenderness Musculoskeletal: Swelling (Bilateral feet) Integumentary: No rashes, No cyanosis Neurological: Normal strength at 5/5 x4 extr Laboratory Data at Discharge: WBC 8.20 K/uL (4.3-10.9) D 06/10/22 05:13 Hgb 17.4 g/dL (13.6-17.9) 06/10/22 05:13 Hct 53.8 % (39.6-49.0) H 06/10/22 05:13 Plt Count 304 K/uL (152-406) 06/10/22 05:13 PT 12.0 SECONDS (9.5-12.5) 06/08/22 22:56 INR 1.09 06/08/22 22:56 APTT 36.2 SECONDS (24.3-36.9) 06/08/22 22:56 Sodium 140 mmol/L (136-145) 06/10/22 05:13 Potassium 3.5 mmol/L (3.5-5.1) 06/10/22 05:13 BUN 19 mg/dL (7-18) H 06/10/22 05:13 Creatinine 1.72 mg/dL (0.55-1.3) H 06/10/22 05:13 Glucose 162 mg/dL (74-106) H 06/10/22 05:13 Magnesium 1.8 mg/dL (1.8-2.4) 06/10/22 05:13 Total Bilirubin 0.3 mg/dL (0.2-1.0) 06/08/22 22:56 AST 11 U/L (15-37) L 06/08/22 22:56 ALT 17 U/L (12-78) 06/08/22 22:56 Alkaline Phosphatase 66 U/L (45-117) 06/08/22 22:56 Triglycerides 101 mg/dL (<150) 06/10/22 05:13 Cholesterol 237 mg/dL (<200) H 06/10/22 05:13 HDL Cholesterol 76 mg/dL (40-60) H 06/10/22 05:13 Cholesterol/HDL Ratio 3.12 06/10/22 05:13 Home Medications: Docosahexanoic AC/Epa [Fish Oil 1,000 MG*] 1,000 mg PO DAILY #30 cap 03/19/22 Amlodipine [Norvasc*] 10 mg PO DAILY #30 tab 06/10/22 Aspirin [Aspirin EC 81 MG] 81 mg PO DAILY #30 tablet. 06/10/22 Atorvastatin Calcium [Lipitor] 80 mg PO BEDTIME #30 tab 06/10/22 Clopidogrel Bisulfate [Plavix*] 75 mg PO DAILY #30 tab 06/10/22 Empagliflozin [Jardiance] 25 mg PO DAILY 30 Days #30 tablet 06/10/22 Furosemide [Lasix*] 40 mg PO BIDL 30 Days #60 tab 06/10/22 Hydralazine [Apresoline*] 25 mg PO TID #90 tab 06/10/22 Insulin Glargine,Hum.rec.anlog [Lantus] 25 unit SQ BEDTIME #10 ml 06/10/22 Insulin Glargine,Hum.rec.anlog [Lantus] 70 unit SQ DAILY #10 ml 06/10/22 Losartan Potassium [Cozaar*] 100 mg PO DAILY #60 tablet 06/10/22 Metformin HCl 1,000 mg PO DAILY 30 Days #30 tablet 06/10/22 Sotalol HCl [Betapace*] 120 mg PO BID 6AM 6PM #60 tab 06/10/22 New Medications: Hydralazine [Apresoline*] 25 mg PO TID #90 tab Aspirin [Aspirin EC 81 MG] 81 mg PO DAILY #30 tablet. Sotalol HCl [Betapace*] 120 mg PO BID 6AM 6PM #60 tab Losartan Potassium [Cozaar*] 100 mg PO DAILY #60 tablet Empagliflozin [Jardiance] 25 mg PO DAILY 30 Days #30 tablet Insulin Glargine,Hum.rec.anlog [Lantus] 70 unit SQ DAILY #10 ml Insulin Glargine,Hum.rec.anlog [Lantus] 25 unit SQ BEDTIME #10 ml Furosemide [Lasix*] 40 mg PO BIDL 30 Days #60 tab Atorvastatin Calcium [Lipitor] 80 mg PO BEDTIME #30 tab Metformin HCl 1,000 mg PO DAILY 30 Days #30 tablet Amlodipine [Norvasc*] 10 mg PO DAILY #30 tab Clopidogrel Bisulfate [Plavix*] 75 mg PO DAILY #30 tab Diet: ADA Activity: Ad brian Followup: Bassam Donis MD [Primary Care Provider] - 1 Week Time spent managing pt's care (in minutes): 38
--- NOTE | 2022-06-10 15:00 | P.CNS ---
Date of Consult: 06/10/22 Reason for Consult: Renal failure Primary Care Provider: Jewels Chief Complaint: CHF Exacerbation History of Present Illness: 72AAM w/ PMHx of CKD3a, baseline SCr 1.3 (GFR 57) as of September 2020, CHF, CAD, & DM2 who p/w 1 wk hx of progressive SOB, found to be in accelerated Htn w/ initial SBP 220 mmHg, admitted for acute on chronic CHF, & referred to Nephrology for renal failure. SCr was 1.8 on adm, at 1.72 today. Urinalysis showed 2+ proteinuria but no hematuria or pyuria. The rest of urine studies are pending. Allergies Penicillins Adverse Reaction (Verified 03/17/20 15:42) Hives Home Medications: Docosahexanoic AC/Epa [Fish Oil 1,000 MG*] 1,000 mg PO DAILY #30 cap 03/19/22 Amlodipine [Norvasc*] 10 mg PO DAILY #30 tab 06/10/22 Aspirin [Aspirin EC 81 MG] 81 mg PO DAILY #30 tablet.dr 06/10/22 Atorvastatin Calcium [Lipitor] 80 mg PO BEDTIME #30 tab 06/10/22 Clopidogrel Bisulfate [Plavix*] 75 mg PO DAILY #30 tab 06/10/22 Empagliflozin [Jardiance] 25 mg PO DAILY 30 Days #30 tablet 06/10/22 Furosemide [Lasix*] 40 mg PO BIDL 30 Days #60 tab 06/10/22 Hydralazine [Apresoline*] 25 mg PO TID #90 tab 06/10/22 Insulin Glargine,Hum.rec.anlog [Lantus] 25 unit SQ BEDTIME #10 ml 06/10/22 Insulin Glargine,Hum.rec.anlog [Lantus] 70 unit SQ DAILY #10 ml 06/10/22 Losartan Potassium [Cozaar*] 100 mg PO DAILY #60 tablet 06/10/22 Metformin HCl 1,000 mg PO DAILY 30 Days #30 tablet 06/10/22 Sotalol HCl [Betapace*] 120 mg PO BID 6AM 6PM #60 tab 06/10/22 - Past Medical/Surgical History Diabetic: Yes -: hypertension -: hyperlipidemia -: Atrial fibrillation -: IDDM -: ID -: heart stents Psychosocial/ Personal History: Patient is . - Family History Brother Medical History: Heart disease, Hypertension - Social History Smoking Status: Former smoker Alcohol use: Yes CD- Drugs: No Caffeine use: No Place of Residence: Home Review of Systems General: Unremarkable Eyes: Unremarkable ENT: Unremarkable Respiratory: Shortness of Breath, SOB with Excertion Cardiovascular: Unremarkable Gastrointestinal: Unremarkable Genitourinary: Unremarkable Musculoskeletal: Pedal edema Integumentary: Unremarkable Neurological: Unremarkable Lymphatics: Unremarkable Physical Examination Temp Pulse Resp BP Pulse Ox 97.1 F 89 16 125/63 90 L 06/10/22 12:00 06/10/22 12:00 06/10/22 12:00 06/10/22 12:00 06/10/22 12:00 General: Other (Appears as his stated age) HEENT: Atraumatic, Normocephalic Neck: Supple, JVD not distended Respiratory: Other (Symmetric chest expansion) Cardiovascular: No rubs, No murmurs Gastrointestinal: Soft and benign, No rebound Musculoskeletal: Swelling Integumentary: No warmth Neurological: Normal speech, Normal tone Lymphatics: No axilla or inguinal lymphadenopathy Urinary: Other (No bladder distention) External genitalia: Deferred Rectal: Deferred Conclusions/Impression: # KAITLIN vs KAITLIN on CKD 2/2 accelerated Htn +/- diuretic use SCr 1.8 on adm, at 1.7 today Urinalysis showed 2+ proteinuria but no hematuria or pyuria F/u random urine chem, UPCR, CPK, iPTH, 25OHD, renal US [place] po fluid intake Monitor renal panel # Proteinuric CKD3a likely 2/2 DM/Htn Baseline SCr 1.3 (GFR 57) as of September 2020 Monitor renal panel, f/u random UPCR # Accelerated Htn BP now better controlled Cont current med regimen # Acute on chronic CHF Hx of CAD, afib, aortic stenosis Cont Lasix 40 mg IV bid, transition to po in 1-2 days Cont other cardioprudent meds Strictly low Na diet Do NOT limit free water intake unless he develops hypoNa < 130 meq/L For TAVR at some point # DM2 Mngt per primary team
[2022-06-10 16:03] VITALS: BP 166/85; TEMP 96.8
--- NOTE | 2022-06-10 23:37 | PN ---
Date of Progress Note: 06/10/2022 Subjective: Seen by bedside. Feeling better. Continues to have some shortness of breath on exertio n and lower extremity edema. Review of Systems: No chest pain. No resting shortness of breath. Has dyspnea on exertion and lower extremity edema. No nausea, vomiting, or diarrhea. No abdominal pain. No dysuria, polyuria, or urinary urgency. No skin rash. All other systems reviewed and are negative. Physical Examination: Vital Signs: Temperature is 97.1, pulse 81, breathing at 16, blood pressure 125/63, saturating 94% r oom air. General: Pleasant elderly male, in no distress. Head and Neck: Pupils are equal and reactive to light. Intact eye movements. No JVD. No cervical lymphadenopathy. Neck is supple. Thyroid is not enlarged. Lungs: There are faint crackles at the bases. No accessory muscle use. Heart: Irregular. No extra sounds. Abdomen: Soft, nontender. Bowel sounds positive. No organomegaly. No masses or hernia. No rigidi ty or rebound. Extremities: No clubbing or cyanosis. Intact pulses, but there is a 2+ pitting edema. Neurologic: Alert, awake, oriented x3. No acute focal deficits appreciated. Investigation: Increased creatinine of 1.72, BUN is 19; it is improving compared to yesterday. Trop onin levels are 96 and 95. Assessment And Recommendation: 1.Acute on chronic systolic heart failure exacerbation. I agree with diuresis. Carefully monitor B UN and creatinine. 2.Elevated troponin. The patient noted to have normal coronary arteries, has heart catheterization done recently. This is demand ischemia. 3.Aortic valve stenosis is likely to be severe. We will plan for dobutamine echocardiogram on him n ext week, which will be done as an outpatient to further assess the need for aortic valve replacement. SR/MODL Voice ID: [id number] Report ID: [id number]
== END 2022-06-10 19:26 | disposition home health service (06) | DRG 291 ==
LOC: ER 21:29 → ERHOLD 06-09 00:37 → 4TH 06-09 14:02
PROVIDERS: ADMIT Internal Medicine; ATTEND Internal Medicine
PROC: 5A09357 Assistance with Respiratory Ventilation, Less than 24 Consecutive Hours, Continuous Positive Airway Pressure (ICD-10-PCS; principal; 2022-06-09)
DX: I13.0 Hypertensive heart and chronic kidney disease with heart failure and stage 1 through stage 4 chronic kidney disease, or unspecified chronic kidney disease (principal); J96.01 Acute respiratory failure with hypoxia; I50.23 Acute on chronic systolic (congestive) heart failure; I24.8 Other forms of acute ischemic heart disease; N17.9 Acute kidney failure, unspecified; N18.32 Chronic kidney disease, stage 3b; E11.22 Type 2 diabetes mellitus with diabetic chronic kidney disease; E11.65 Type 2 diabetes mellitus with hyperglycemia; I27.20 Pulmonary hypertension, unspecified; I35.0 Nonrheumatic aortic (valve) stenosis; I48.0 Paroxysmal atrial fibrillation; I25.10 Atherosclerotic heart disease of native coronary artery without angina pectoris; E78.5 Hyperlipidemia, unspecified; J44.9 Chronic obstructive pulmonary disease, unspecified; I67.9 Cerebrovascular disease, unspecified; I25.2 Old myocardial infarction; Z91.14 Patient's other noncompliance with medication regimen; Z20.822 Contact with and (suspected) exposure to COVID-19; Z87.891 Personal history of nicotine dependence; Z88.0 Allergy status to penicillin; Z79.02 Long term (current) use of antithrombotics/antiplatelets; Z79.82 Long term (current) use of aspirin; Z79.4 Long term (current) use of insulin; Z79.84 Long term (current) use of oral hypoglycemic drugs; Z95.5 Presence of coronary angioplasty implant and graft; Z79.899 Other long term (current) drug therapy; Z82.49 Family history of ischemic heart disease and other diseases of the circulatory system
CPT/HCPCS: 36415; 71045; 80048; 80061; 80076; 81001; 82550; 82553; 82805; 82947; 83036; 83735; 83880; 84132; 84484; 85025; 85610; 85730; 87040; 87811; 93005; 93306; 94003; 94660; 94760; 96365; 96375; 99285; J0360; J1650; J1815; J1940; J3475

== ENCOUNTER 2022-07-17 17:48 | Inpatient (IN) | payer OTHER ==
--- OUTSIDE RECORDS SUMMARY | 2022-07-17 17:57 | XMS REPORT | Continuity of Care Document ---
:1950 Author Organization [facility] t Address [facility] [address] [place] [address] Care Team Providers Name Role Phone Bassam Donis Attending Clinician Unavailable Jose Reinoso Attending Clinician Unavailable Chad Alvarez Attending Clinician Unavailable Physician, No Primary or Family Admitting Clinician Unavaila ble Payers Payer Name Policy Type Policy Number Effective Date Expiration Date S ource UNITED [id number] Common HEALTHCARE [facility] Problems Condition Condition Condition Status Onset Resolution Last Treating Co mments Source Name Details Category Date Date Treatment Clinician Date [id number] 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 - [facility] n) of [facility] [id number] Prostate Problem Active Com mon nodule [facility] [id number] Urge Problem Active Common incontinen Spirit ce [facility] [id number] Lower Problem Active Common urinary [facility] tract - CH[facility] symptoms [facility] Allergies, Adverse Reactions, Alerts Allergy Allergy Status Severity Reaction(s) Onset Inactive Treating Comm ents Source Name Type Date Date Clinician Penicill DA Active SV HIVES [facility] ins 05 Clear 00:00: Gonsales 00 [facility] Social History Social Habit Start Date Stop Date Quantity Comments Source Sex Assigned At Com mon [facility] History of Tobacco Use Co mmon [facility] Medications Ordered Filled Start Stop Current Ordering Indication Dosage Frequency Signature Comments Components Source Medication Medication Date Date Medication? Clinician (SIG) Name Name Castillore 5 VESIcare 5 2019-10- No 1{table QD VESIcare 5 MG MG 10-24 t} MG 00:00: 00:00 00 :00 VESIcare 5 VESIcare 5 2019-10- No 1{table QD VESIcare 5 MG MG 10-24 t} MG 00:00: 00:00 00 :00 Sotalol HCl Sotalol HCl No 1{table BID Sotalol 120 MG 120 MG t} HCl 120 MG Metformin Metformin No 1{table BID Metformin HCl 1000 MG HCl 1000 MG t_with_ HCl 1000 meals} MG Lasix 40 MG Lasix 40 MG No 1{table QD Lasix 40 t} MG glipizide glipizide No glipizide Loratadine Loratadine No 1{table QD Loratadine 10 MG 10 MG t} 10 MG Losartan Losartan No 1{table QD Losartan Potassium Potassium t} Potassium 100 MG 100 MG 100 MG HydrALAZINE HydrALAZINE No 1{table QID HydrALAZIN HCl 10 MG HCl 10 MG t_with_ E HCl 10 food} MG Plavix 75 Plavix 75 No 1{table QD Plavix 75 MG MG t} MG Lipitor 80 Lipitor 80 No 1{table QD Lipitor 80 MG MG t} MG Fish Oil Fish Oil No 1{capsu QD Fish Oil 1000 MG 1000 MG le} 1000 MG Sotalol HCl Sotalol HCl No 1{table BID Sotalol 120 MG 120 MG t} HCl 120 MG glipizide glipizide No glipizide Lasix 40 MG Lasix 40 MG No 1{table QD Lasix 40 t} MG Loratadine Loratadine No 1{table QD Loratadine 10 MG 10 MG t} 10 MG Lipitor 80 Lipitor 80 No 1{table QD Lipitor 80 MG MG t} MG Metformin Metformin No 1{table BID Metformin HCl 1000 MG HCl 1000 MG t_with_ HCl 1000 meals} MG HydrALAZINE HydrALAZINE No 1{table QID HydrALAZIN HCl 10 MG HCl 10 MG t_with_ E HCl 10 food} MG Plavix 75 Plavix 75 No 1{table QD Plavix 75 MG MG t} MG Losartan Losartan No 1{table QD Losartan Potassium Potassium t} Potassium 100 MG 100 MG 100 MG Fish Oil Fish Oil No 1{capsu QD Fish Oil 1000 MG 1000 MG le} 1000 MG Vital Signs Vital Name Observation Time Observation Value Comments Source height 2020-12-03 11:15:00 70 [in_i] Common [facility] weight 2020-12-03 11:15:00 197 [lb_av] [facility] temperature 2020-12-03 11:15:00 97.6 [degF] Common [facility] bmi 2020-12-03 11:15:00 28.26 kg/m2 [facility] oximetry 2020-12-03 11:15:00 97 % [facility] blood pressure 2020-12-03 11:15:00 139 mm[Hg] Common [facility] - systolic [facility] blood pressure 2020-12-03 11:15:00 64 mm[Hg] Common [facility] - diastolic [facility] height 2020-08-24 14:00:00 70 [in_i] Common [facility] weight 2020-08-24 14:00:00 199.6 [lb_av] [facility] temperature 2020-08-24 14:00:00 98.4 [degF] [facility] bmi 2020-08-24 14:00:00 28.64 kg/m2 [facility] oximetry 2020-08-24 14:00:00 96 % [facility] blood pressure 2020-08-24 14:00:00 197 mm[Hg] Common [facility] - systolic [facility] blood pressure 2020-08-24 14:00:00 86 mm[Hg] Common [facility] - diastolic [facility] Procedures This patient has no known procedures. Encounters Start End Encounter Admission Attending Care Care Encounter Source Date/Time Date/Time Type Type Clinicians Facility Department ID 2021-10-27 Outpatient Donis, [facility] [id number] Common 12:15:25 Bassam Fischer [facility] 2021-10-27 Outpatient [facility] [id number] Common 12:07:45 [id number] Spirit - [facility] 2022-05-31 2022-05-31 Outpatient SPEEDY Dial [facility] [id number] [facility] 08:52:00 08:52:00 Olanike 47 [facility] 2022-05-11 2022-05-11 Outpatient SPEEDY Rae [facility] [id number] [facility] 10:11:00 10:11:00 Chad 67 [facility] 2022-05-11 2022-05-11 Outpatient SPEEDY Rae [facility] [id number] [facility] 10:11:00 10:11:00 Chad [id number] [facility] 2020-12-03 2020-12-03 OFFICE [facility] [id number] Co mmon 00:00:00 00:00:00 VISIT [facility] PT - CHI LEVEL 2 [facility] 2020-08-24 2020-08-24 OFFICE [facility] [id number] Co mmon 00:00:00 00:00:00 VISIT NEW [facility] it PT LEVEL 4 - [facility] Results Test Description Test Time Test Comments [...] y tests. - CTA HEART W CN [id number] 00:00:00 [facility] GONSALESName: ALBERT SANCHEZ : 1950 Sex: M Name: ALBERT SANCHEZ [facility] Dagmar Gonsales : 1950 Age/S: 72 / M [address] [place] [address] Blvd Unit #: [id number] Loc: [place] [address] Phys: Jose Reinoso [employer] Acct: [id number] Dis Date: Status: REG CLI PHONE #: [phone] Exam Date: 05/31/2022 1012 FAX #: [phone] Reason: EXAMS: CPT CODE: [id number] HEART W CN ART/GRAFTS 15414 PROCEDURE INFORMATION: Exam: CTA Heart And Coronary [...] (Not supervised by radiologist): MIP and/or 3D reconstructedimages were created by the technologist. Radiation optimization: All CT scans at this facility use at least one of these dose optimization techniques: automated exposure control; mA and/or kV adjustment per patient size (includes [...] x 32.6 mm STJ 28.8 x 28.9 mmAt the level of the pulmonary artery bifurcation, the ascending aorta measures 31.8 x 33.6 mm. The distance from the annulus to the RCA ostium is 22.9 mm. The distance from the annulus to the LM ostiumis 15.1 mm. CORONARY ARTERIES: Normal origin of the coronary arteries. There is coronary atherosclero sis however the study was not tailored for the assessment of the coronaries. CARDIAC CHAMBERS: Mildcardiomegaly. No LA or LV thrombus. Mild PAGE 1 Signed Report (CONTINUED) Name: ALBERT SANCHEZ [facility] : 1950 Age/S: 72 / M [address] [place] [address] Blvd Unit #: [id number] Loc: [place] [address] Phys: Jose Reinoso [facility] Acct: [id number] Dis Date: Status: REG CLI PHONE #: [phone] Exam Date: 05/31/2022 1012 FAX #: [phone] Reason: EXAMS: CPT CODE: [id number] CTA HEART W CN ART/GRAFTS 19249 (Continued) mitral annular calcification. PERICARDIUM: No evidence [...] SOFT TISSUES: There are no bony lytic orblastic lesions. IMPRESSION: Severe calcification of the aortic valve compatible with aortic stenosis. The total calcium score of the aortic valve is 1658. Aortic annulus 26.6 x 21 mm, area of 4.18 cm2and perimeter of 73.9 mm. Mild pulmonary edema [...] adrenal glands, consistent with mild hyperplasia. The stomach,small bowel and colon are unremarkable. The appendix is normal. There is no intra-abdominal or retroperitoneal adenopathy. Mild wall thickening of the underdistended bladder. Prostate gland and seminal vesicles within normal limits. BONES AND SOFT TISSUES: There are no bony lytic or blastic lesions. PAGE 2 Signed Report (CONTINUED) Name: ALBERT SANCHEZ [facility] : 1950 Age/S: 72 / M [address] [place] [address] Unit #: [id number] Loc: [place] [address] Phys: Jose Reinoso [facility] Acct: [id number] Dis Date: Status: REG CLI PHONE #: [phone] Exam Date: 05/31/2022 1012 FAX #: [phone]: EXAMS: CPT CODE: [id number] CTA HEART W CN ART/GRAFTS 98164 (Continued) Small uncomplicated fat containing umbilical hernia. [...] Hearn, RT(R)(CT) CTDI: DLP: Trnscb Date/Time: 05/31/2022 (1722) [email or web address] Orig Print D/T: S: 05/31/2022 (1722) PAGE 3 Signed Report- CTA ABD PEL W CONT 2022-05-31 00:00:00 [facility] 1950 Sex: M Name: ALBERT SANCHEZ [facility] : 1950 Age/S: 72 / M [address] [place] [address] Blvd Unit #: [id number] Loc: [place] [address] Phys: Jose Reinoso Acct: [id number] Dis Date: Status: REG CLI PHONE #: [phone] Exam Date: 05/31/2022 1012 FAX #: [phone] Reason: 135.0, SEVERE AORTIC STENOSIS. EXAMS: CPT CODE: [id number] CTA ABD PEL W CONT 48459 PROCEDURE INFORMATION: Exam: CTA Heart And Coronary [...] performed. 3D rendering (Not supervised by radiologist): MIPand/or 3D reconstructed images were created by the technologist. Radiation optimization: All CT scans at this facility use at least one of these dose optimization techniques: automated exposure control; mA and/or kV adjustment per patient size (includes targeted exams where dose is matched to clinicalindication); or iterative reconstruction. Contrast material: ISOVUE 370; [...] at 30 percent phase of the R-R i nterval. Aortic annulus 26.6 x 21 mm, area [...] 1 Signed Report (CONTINUED) Name: ALBERT SANCHEZ [facility] [place] : 1950 Age/S: 72 / M [address] [place] [address] Unit #: [id number] Loc: [facility] [place] [address] Phys: Jose Reinoso [facility] Acct: [id number] Dis Date: Status: MITZY PRUITT #: [phone] Exam Date: 05/31/2022 1012 FAX #: [phone] Reason: 135.0, SEVERE AORTIC STENOSIS. EXAMS: CPT CODE: [id number] CTA ABD PEL W CONT 43436 (Continued) mitral annular calcification. PERICARDIUM: No evidence of pericardial effusion. MEDIASTINUM: Mild enlargement of mediastinal lymph nodes in [...] total calcium score of the aortic valve [id number]. Aortic annulus 26.6 x 21 mm, area [...] involving the iliofemoral branches. The celiac artery, superiormesenteric artery, and inferior mesenteric artery are patent. [...] LEFT common iliac, external iliac and common f emoral arteries are patent, measuring 6 mm or [...] 2 Signed Report (CONTINUED) Name: ALBERT SANCHEZ [facility] Dagmar Gonsales : 1950 Age/S: 72 / M [address] [place] [address] Blvd Unit #: [id number] Loc: [place] [address] Phys: Jose Reinoso Acct: [id number] Dis Date: Status: REG CLI PHONE #: [phone] Exam Date: 05/31/2022 1012 FAX #: [phone] Reason: 135.0, SEVERE AORTIC STENOSIS. EXAMS: CPT CODE: [id number] CTA ABD PEL W CONT 97896 (Continued) Small uncomplicated fat containing umbilical hernia. IMPRESSION: Mild atherosclerosis of the abdominal aorta which is widely patent with a minimal luminal diameter of 18 x 17 mm in the infrarenal segment. Moderate atherosclerosis of the bilateraliliofemoral branches. The bilateral common iliac, external iliac and common femoral arteries are patent, measuring 6 mm or greater. Mild wall thickening of the underdistended bladder. This could simplybe the result of underdistention however a mild cystitis is not excluded. Clinical correlation and correlation with urinalysis recommended. [id number] Reported and signed by: Wood Duran M.D. CC: Jose Reinoso Technologist:RT Tripp(R)(CT) CTDI: DLP: Trnscb Date/Time: 05/31/2022 (172) [email or web address] Orig Print D/T: S: 05/31/2022(6129) PAGE 3 Signed Report- CT ANGIO [id number] 00:00:00[facility] ALBERT [facility]ANC[facility] : 1950 Sex: M Name: ALBERT SANCHEZ [facility] Dagmar Gonsales : 1950 Age/S: 72 / M [address] [place] [address] Blvd Unit #: [id number] Loc: [place] [address] Phys: Jose Reinoso [employer] Acct: [id number] Dis Date: Status: REG CLI PHONE #: [phone] Exam Date: 05/31/2022 1012 FAX #: [phone] Reason: 135.0 , SEVERE AORTIC STENOSIS. EXAMS: CPT CODE: [id number] CT ANGIO CHEST 24609 PROCEDURE INFORMATION: Exam: CTA Heart And Coronary [...] CT scans at this facility use at least one of these dose optimization techniques: automated exposure control; mA and/or kV adjustment per patient size (includes [...] at 30 percent phase of the R-R inter silvino. Aortic annulus 26.6 x 21 mm, area [...] Normal origin of the coronary arteries. There iscoronary atherosclerosis however the study was not tailored for the assessment of the coronaries. CARDIAC CHAMBERS: Mild cardiomegaly. No LA or LV thrombus. Mild PAGE 1 Signed Report (CONTINUED) Name: ALBERT SANCHEZ [facility] : 1950 Age/S: 72 / M [address] [place] [address] Unit #: [id number] Loc: [place] [address] Phys: Jose Reinoso [facility] Acct: [id number] Dis Date: Status: REG CLI PHONE#: [phone] Exam Date: 05/31/2022 1012 FAX #: [phone] Reason: 135.0 , SEVERE AORTIC STENOSIS. EXAMS: CPT CODE: [id number] CT ANGIO CHEST 18569 (Continued) mitral annular calcification. PERICARDIUM: No evidence of pericardial effusion. MEDIASTINUM: Mild enlargement of mediastinal lymph nodes in [...] score of the aortic valve is 1658. Ao rtic annulus 26.6 x 21 mm, area of [...] 2 Signed Report (CONTINUED) Name: ALBERT SANCHEZ [facility] : 1950 Age/S: 72 / M [address] [place] [address] Blvd Unit #: [id number] Loc: [place] [id number] Phys: Jose Reinoso [facility] Acct: [id number] Dis Date: Status: REG CLI PHONE #: [phone] Exam Date: 05/31/2022 1012 FAX #: [phone] Reason: 135.0 , SEVERE AORTIC STENOSIS. EXAMS: CPT CODE: [id number] CT ANGIO CHEST 64279 (Continued) Small uncomplicated fat containing umbilical hernia. 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 CBC W/AUTO [id number] 16:09:00 Test Item Value Reference Range Interpretation [...]
[2022-07-17 18:31] LABS: Arterial Blood Carboxyhemoglob 1.5 % (0-1.5); Blood Gas Oxyhemoglobin 94.6 % (94-97)
[2022-07-17 18:39] LABS: Absolute Lymphocytes (CBC) 0.8 K/uL (0.7-4.9); Hematocrit 45.9 % (39.6-49.0); Lymphocytes % 10.1 % (15.3-44.8); MCV 84.9 fL (80-100); MPV 8.3 fL (7.6-11.3); RBC Red Blood Cell Count 5.41 M/uL (4.33-5.43)
[2022-07-17] MEDS ORDERED: FUROSEMIDE 20 MG/ 2ML VIAL ONE ×2 (18:39→19:48)
[2022-07-17 18:40] LABS: Protime INR 1.2
[2022-07-17 18:53] LABS: Albumin 2.6 g/dL (3.4-5.0); Bilirubin Direct 0.3 mg/dL (0-0.2); Bilirubin Total 0.6 mg/dL (0.2-1.0); Potassium 4.3 mmol/L (3.5-5.1); Protein, Total 8.2 g/dL (6.4-8.2); Troponin High Sensitivity 36.4 pg/mL (<58.9)
--- NOTE | 2022-07-17 19:46 | P.HP ---
Certification for Inpatient Patient admitted to: Inpatient With expected LOS: >2 Midnights Patient will require the following post-hospital care: None Practitioner: I am a practitioner with admitting privileges, knowledge of patient current condition, hospital course, and medical plan of care. Services: Services provided to patient in accordance with Admission requirements found in Title 42 Section 412.3 of the Code of Federal Regulations Patient History Date of Service: 07/17/22 Reason for admission: Shortness of Breath History of Present Illness: Mr. Julianna Kearns is a pleasant 72 year old male who has a past medical history of coronary artery disease s/p PCI, chronic atrial fibrillation not on anticoagulation, chronic congestive heart failure, type II diabetes mellitus, and hypertension who presents to the [facility] Emergency Department for shortness of breath. He reports that, earlier today, he has been experiencing progressively worsening shortness of breath. He denies any associated chest pain or palpitations, but has been experiencing a dry cough. He reports that his symptoms are worse with exertion and improve with rest. He denies any recent changes in his medications. He has not tried taking anything for his symptoms. On review of systems, he denies any fevers, chills, headaches, dizziness, syncope, weakness, chest pain, palpitations, wheezing, abdominal pain, nausea/vomiting, diarrhea, constipation, hematochezia, melena, dysuria, hematuria, myalgia, or any other symptoms. He presented to the Emergency Department for further evaluation. Upon presentation, his vital signs were notable for a respiratory rate of 28 breaths/min and an SpO2 of 64% on room air. His laboratory studies were notable for a creatinine of 1.83, a glucose of 219, and an NT-Pro BNP of 10,716. Blood cultures x 2 were obtained. Chest x-ray revealed, "multifocal interstitial airspace opacities most likely representing edema rather than pneumonia." In the Emergency Department, he was given furosemide. He was admitted to the General Internal Medicine service for further evaluation. Allergies Penicillins Adverse Reaction (Verified 03/17/20 15:42) Hives Home medications list reviewed: Yes (He was able to verify all medications except diabetes meds.) Home Medications: Amlodipine [Norvasc*] 10 mg PO DAILY #30 tab 06/10/22 Aspirin [Aspirin EC 81 MG] 81 mg PO DAILY #30 tablet. 06/10/22 Atorvastatin Calcium [Lipitor] 80 mg PO BEDTIME #30 tab 06/10/22 Clopidogrel Bisulfate [Plavix*] 75 mg PO DAILY #30 tab 06/10/22 Empagliflozin [Jardiance] 25 mg PO DAILY 30 Days #30 tablet 06/10/22 Furosemide [Lasix*] 40 mg PO BIDL 30 Days #60 tab 06/10/22 Hydralazine [Apresoline*] 25 mg PO TID #90 tab 06/10/22 Insulin Glargine,Hum.rec.anlog [Lantus] 25 unit SQ BEDTIME #10 ml 06/10/22 Insulin Glargine,Hum.rec.anlog [Lantus] 70 unit SQ DAILY #10 ml 06/10/22 Losartan Potassium [Cozaar*] 100 mg PO DAILY #60 tablet 06/10/22 Metformin HCl 1,000 mg PO DAILY 30 Days #30 tablet 06/10/22 Sotalol HCl [Betapace*] 120 mg PO BID 6AM 6PM #60 tab 06/10/22 Doxazosin [Cardura] 2 mg PO BEDTIME 07/17/22 Ferrous Sulfate [Iron] 325 mg PO DAILY 07/17/22 Pantoprazole Sodium [Protonix] 40 mg PO DAILY 07/17/22 - Past Medical/Surgical History Diabetic: Yes -: hypertension -: hyperlipidemia -: Atrial fibrillation -: IDDM -: NV -: heart stents Psychosocial/ Personal History: Patient is . - Family History Brother -: Heart disease, Hypertension - Social History Alcohol use: Yes CD- Drugs: No Caffeine use: No Review of Systems General: Malaise Eyes: Unremarkable ENT: Unremarkable Respiratory: Cough, Dry, Shortness of Breath Cardiovascular: Unremarkable Gastrointestinal: Unremarkable Genitourinary: Unremarkable Musculoskeletal: Unremarkable Integumentary: Unremarkable Neurological: Unremarkable Lymphatics: Unremarkable Physical Examination - Vital Signs Temperature: 99.3 F Blood Pressure: 179/99 Pulse: 82 Respirations: 28 Pulse Ox (%): 94 (BiPAP) - Physical Exam General: Alert, Oriented x3, Mild distress HEENT: Atraumatic, PERRLA, Mucous membr. moist/pink, EOMI, Sclerae nonicteric Neck: Supple, JVD distended Respiratory: Diminished, Crackles/rales (on BiPAP), Other Cardiovascular: Regular rate/rhythm, Normal S1 S2, No gallops, No rubs, Edema (2-3+ pitting edema), Systolic murmur Gastrointestinal: Normal bowel sounds, Soft and benign, Non-distended, No tenderness, No rebound, No guarding Musculoskeletal: No clubbing Integumentary: No rashes Neurological: Normal speech, Cranial nerves 3-12 intact, Normal affect - Studies Laboratory Data (last 24 hrs) 07/17/22 18:21: PT 13.2 H, INR 1.20, APTT 37.2 H 07/17/22 18:21: WBC 7.60, Hgb 14.4, Hct 45.9, Plt Count 340 07/17/22 18:21: Sodium 137, Potassium 4.3, BUN 23 H, Creatinine 1.83 H, Glucose 219 H, Magnesium 2.0, Total Bilirubin 0.6, AST 12 L, ALT 20, Alkaline Phosphatase 75 Microbiology Data (last 24 hrs): 07/17/22 18:19 Nasopharnyx Influenza Type A Antigen Screen - Final 07/17/22 18:19 Nasopharnyx Influenza Type B Antigen Screen - Final Assessment and Plan - Plan # Acute Hypoxic Respiratory Failure - likely secondary to Pulmonary Edema and Influenza A Infection On arrival, his SpO2 was 64 % on room air. Currently, he is on BiPAP, with improvement of his SpO2 readings to 94 %. - Evaluation thus far: - D-Dimer = pending - If positive, obtain V/Q scan to evaluate for pulmonary embolism - Procalcitonin = pending - Influenza Swab = positive for Influenza A - ABG = pH 7.33, PCO2 46.8, PO2 106.0 (on BiPAP) - Chest x-ray = "multifocal interstitial airspace opacities most likely representing edema rather than pneumonia" - Management plan: - Consulted Pulmonary Medicine - recommendations appreciated - Consulted Respiratory Therapy - Supplemental oxygen to maintain SpO2 > 92% - Currently on BiPAP - Started renally-dosed oseltamivir - PRN benzonatate, guaifenesin # Acute on Chronic Decompensated Systolic Congestive Heart Failure # Moderate Aortic Stenosis - Consult Cardiology - recommendations appreciated - Ordered transthoracic echocardiogram - Diuresis with IV furosemide - Daily weights - Strict I/O # Severe Viral Sepsis likely secondary to Influenza A Infection He meets sepsis criteria based on HR > 90 bpm and RR > 20 breaths/min, and the suspected source is viral. Severe sepsis is suspected due to concern for tissue hypoperfusion/organ dysfunction based on acute respiratory failure requiring BiPAP. - Sepsis order set was initiated - Initial Lactate was 1.3 - Blood cultures drawn before - Broad spectrum antibiotics not started due to no source of bacterial infection: no leukocytosis, procalcitonin pending - In regards to fluids: - 30 mL/kg of IV fluids was not administered given SBP > 90, MAP > 65, lactic acid < 4 # Chronic Atrial Fibrillation with Rapid Ventricular Response His [id number] = 5 (CHF=1, HTN=1, DM=1, CAD=1, Age 65-74=1), which warrants anticoagulation. Unclear why he is not on anticoagulation - appreciate Cardiology recommendations. - Continue home sotalol - Start enoxaparin 1 mg/kg q12hr # Hyperglycemia in Type II Diabetes Mellitus - Hgb A1c ordered - Resume home medications once verified # Coronary Artery Disease s/p PCI - Continue home aspirin, clopidogrel, atorvastatin, sotalol, losartan # Hypertension - Continue home losartan, hydralazine, amlodipine, sotalol, doxazosin # Chronic Kidney Disease Stage III - Creatinine = 1.83 (near baseline) - IV diuretics as mentioned above - Monitor creatinine and urine output - Renally dose medications Modesto Gotti M.D. Discharge Plan: Home Plan to discharge in: Greater than 2 days - Advance Directives Does patient have a Living Will: No Does patient have a Durable POA for Healthcare: Yes - Code Status/Comfort Care Code Status Assessed: Yes Code Status: Full Code
--- NOTE | 2022-07-17 19:54 | ER ---
Nurse's Notes [facility] Name: Julianna Kearns Age: 72 yrs Sex: Male : 1950 Arrival Date: 07/17/2022 Time: 17:49 Bed 4 Private MD: Bassam Donis E Diagnosis: Influenza due to identified novel influenza A virus;Unspecified combined systolic (congestive) and diastolic (congestive) heart failure;Hypoxia Presentation: 07/17 17:56 Chief complaint: Patient states: short of breath all damn day. i started using my tw2 oxygen today. my feet are swelling. Coronavirus screen: At this time, the client does not indicate any symptoms associated with coronavirus-19. Ebola Screen: Patient denies travel to an Ebola-affected area in the 21 days before illness onset. Initial Sepsis Screen: Does the patient meet any 2 criteria? RR > 20 per min. No. Patient's initial sepsis screen is negative. Does the patient have a suspected source of infection? No. Patient's initial sepsis screen is negative. Risk Assessment: Do you want to hurt yourself or someone else? Patient reports no desire to harm self or others. Note provider Samantha Easton<LOCKSTITCH SHOULDER JOINER in triage at this time. Note pt 64% on RA, pt placed on o2 at 6L nc. up to 88%. Onset of symptoms was July 17, 2022. 17:56 Acuity: VERONICA 2 tw2 17:56 Method Of Arrival: Wheelchair tw2 Triage Assessment: 17:59 General: Appears ill, Behavior is calm, cooperative, appropriate for age. Pain: Denies tw2 pain. Respiratory: Reports shortness of breath at rest on exertion since this morning Onset: The symptoms/episode began/occurred this morning, the patient has severe shortness of breath. Historical: - Allergies: 17:59 PENICILLINS; tw2 - PMHx: 17:59 Atrial Fib; Diabetes - NIDDM; Hypercholesterolemia; Hypertension; tw2 - Immunization history:: Client reports receiving the 2nd dose of the Covid vaccine. - Social history:: Smoking status: . Screenin:37 Abuse screen: Denies threats or abuse. Denies injuries from another. Nutritional mb8 screening: No deficits noted. Tuberculosis screening: No symptoms or risk factors identified. Fall Risk None identified. Assessment: 18:37 Cardiovascular: Rhythm is sinus rhythm. Respiratory: Reports shortness of breath mb8 labored breathing Airway is patent Respiratory effort is labored, 19:02 General: OUTREACH COUNSELOR Rustam reports to hold drawing 2nd blood culture at this time. mb8 19:52 General: Appears unkempt, Behavior is calm, cooperative, appropriate for age, patient tw5 was unable to get to urinal, urinated on self. Nursing staff cleaned up patient. Patient states " I am just feeling really weak.". Neuro: Level of Consciousness is awake, alert, obeys commands, Oriented to person, place, time, situation. Vital Signs: 17:56 BP 98 / 81; Pulse 87; Resp 17; Temp 99.3(TE); Pulse Ox 64% on R/A; Weight 102.97 kg tw2 (R); Height 6 ft. 0 in. (182.88 cm); 18:48 BP 178 / 78; Pulse 86; Resp 23; Pulse Ox 96% on BiPAP; mb8 19:52 BP 179 / 99; Pulse 82; Resp 28; Pulse Ox 96% on 50% BiPAP; tw5 17:56 Body Mass Index 30.79 (102.97 kg, 182.88 cm) tw2 17:56 pt placed on 6L NC up to 87% tw2 ED Course: 16:22 No provider procedures requiring assistance completed. Inserted saline lock: 20 gauge mb8 in right antecubital area, using aseptic technique. Blood collected. O2 via bipap 14/7. 17:49 Patient arrived in ED. am2 17:49 Bassam Donis MD is Private Physician. am2 17:50 Malika Easton FNP-Barb [facility]. kb 17:50 Porter Ramos MD is Attending Physician. kb 17:59 Triage completed. tw2 17:59 Arm band placed on. tw2 18:01 Andrew Acharya, ERICA is Primary Nurse. mb8 18:23 XRAY Chest (1 view) In Process Unspecified. EDMS 18:37 Patient has correct armband on for positive identification. Placed in gown. Bed in low mb8 position. Call light in reach. Side rails up X2. Client placed on continuous cardiac and pulse oximetry monitoring. NIBP monitoring applied. traffic monitor specialist on. 19:04 BIPAP Sent. tw5 19:52 Mayorga cath inserted, using sterile technique, 18 Fr., by id, balloon inflated, urine tw5 specimen collected. 19:53 Modesto Gotti MD is Hospitalizing Provider. kb 20:07 Blood Culture Adult (2) Sent. tw5 Administered Medications: 18:41 Drug: Lasix (furosemide) 20 mg Route: IVP; Site: right antecubital; mb8 19:48 Not Given (Physician Discretion): Tamiflu (oseltamivir) Suspension 30 mg PO once tw5 20:07 Drug: Lasix (furosemide) 20 mg Route: IVP; Site: right antecubital; tw5 Medication: 18:37 VIS not applicable for this client. mb8 Outcome: 19:53 Decision to Hospitalize by Provider. kb 20:38 Admitted to Med/surg Report called to Attempted to call report. was told that the tw5 patient didn't have orders. Called house sup they stated the patient does in fact have order and let the floor know. They should be ready to accept report now. 20:46 Admitted to Med/surg Report called to Attempted to call report. Placed on hold for 6 tw5 min. 21:11 Condition: improved tw5 21:11 Instructed on the need for admit. 21:12 Admitted to Med/surg Report called to Attempted to call report to Ivory at the tw5 extension provided 1432, no answer 21:25 Admitted to Med/surg Report called to Unable to reach nurse. Called floor and let them tw5 know I would be giving bedside report 21:32 Patient left the ED. tw5 Signatures: Dispatcher [employer] EDPR Malika Easton, BRIE-C LOCKSTITCH SHOULDER JOINER-Yudith Cam RN RN tw2 Emerald Han [facility] Elisabeth Westfall tw5 Andrew Acharya RN RN mb8 Corrections: (The following items were deleted from the chart) 20:47 20:38 Admitted to Med/surg tw5 tw5
--- NOTE | 2022-07-17 19:54 | EDPHYS ---
Physician Documentation [facility] Name: Julianna Kearns Age: 72 yrs Sex: Male : 1950 Arrival Date: 07/17/2022 Time: 17:49 Bed 4 Private MD: Bassam Donis E ED Physician Porter Ramos HPI: 07/17 20:11 This 72 yrs old Black Male presents to ER via Wheelchair with complaints of Breathing kb Difficulty. 20:11 The patient has shortness of breath at rest, and the patient has a history of CHF. kb Onset: The symptoms/episode began/occurred this morning. Duration: The symptoms are continuous. The patient's shortness of breath is aggravated by exertion, light activity. Associated signs and symptoms: Pertinent positives: non-productive cough. Severity of symptoms: At their worst the symptoms were moderate in the emergency department the symptoms are unchanged. The patient has experienced similar episodes in the past, a few times. The patient has not recently seen a physician. Historical: - Allergies: 17:59 PENICILLINS; tw2 - PMHx: 17:59 Atrial Fib; Diabetes - NIDDM; Hypercholesterolemia; Hypertension; tw2 - Immunization history:: Client reports receiving the 2nd dose of the Covid vaccine. - Social history:: Smoking status: . ROS: 20:10 Constitutional: Negative for fever, chills, and weight loss. kb 20:10 Respiratory: Positive for cough, dyspnea on exertion, shortness of breath. 20:10 All other systems are negative. Exam: 20:10 Constitutional: This is a well developed, well nourished patient who is awake, alert, kb and in no acute distress. Head/Face: Normocephalic, atraumatic. ENT: Moist Mucous membranes Abdomen/GI: Soft, non-tender. No distention Skin: Warm, dry with normal turgor. Normal color. MS/ Extremity: Pulses equal, no cyanosis. Neurovascular intact. Full, normal range of motion. Neuro: Awake and alert, GCS 15, oriented to person, place, time, and situation. Moves all extremities. Normal gait. 20:10 Cardiovascular: Rate: normal, Edema: 2+ edema to level of left foot and right foot. 20:10 Respiratory: moderate respiratory distress is noted, Respirations: labored breathing, that is moderate, Breath sounds: decreased breath sounds, that are mild, that are moderate, are located in both bases. 20:16 ECG was reviewed by the Attending Physician. kb Vital Signs: 17:56 BP 98 / 81; Pulse 87; Resp 17; Temp 99.3(TE); Pulse Ox 64% on R/A; Weight 102.97 kg tw2 (R); Height 6 ft. 0 in. (182.88 cm); 18:48 BP 178 / 78; Pulse 86; Resp 23; Pulse Ox 96% on BiPAP; mb8 19:52 BP 179 / 99; Pulse 82; Resp 28; Pulse Ox 96% on 50% BiPAP; tw5 17:56 Body Mass Index 30.79 (102.97 kg, 182.88 cm) tw2 17:56 pt placed on 6L NC up to 87% tw2 MDM: 17:58 Patient medically screened. kb 19:22 Data reviewed: vital signs, nurses notes. Data interpreted: Pulse oximetry: on room air kb is 63 %. Interpretation: hypoxia. Plan: O2 by Mask applied. ED course: Pt 97% on bipap and comfortable . 19:22 Counseling: I had a detailed discussion with the patient and/or guardian regarding: the kb historical points, exam findings, and any diagnostic results supporting the discharge/admit diagnosis, lab results, radiology results, the need for further work-up and treatment in the hospital. Physician consultation: Modesto Gotti MD was contacted at 19:23, regarding admission, to the telemetry unit. patient's condition, and will see patient in ED. 07/17 17:58 Order name: Basic Metabolic Panel; Complete Time: 19:00 kb 07/17 17:58 Order name: CBC with Diff; Complete Time: 18:44 kb 07/17 17:58 Order name: LFT's; Complete Time: 19:00 kb 07/17 17:58 Order name: Magnesium; Complete Time: 19:00 kb 07/17 17:58 Order name: NT PRO-BNP; Complete Time: 19:00 kb 07/17 17:58 Order name: Troponin HS; Complete Time: 19:00 kb 07/17 17:58 Order name: ABG; Complete Time: 18:32 kb 07/17 18:15 Order name: Blood Culture Adult (2) kb 07/17 18:15 Order name: Lactate; Complete Time: 19:00 kb 07/17 18:15 Order name: Protime (+inr); Complete Time: 18:44 kb 07/17 18:15 Order name: Ptt, Activated; Complete Time: 18:44 kb 07/17 18:15 Order name: Flu; Complete Time: 19:00 kb 07/17 18:15 Order name: COVID-19 SARS RT PCR (Document "Date of Onset" if Symptomatic); Complete kb Time: 19:05 07/17 19:47 Order name: CBC with Automated Diff EDMS 07/17 17:58 Order name: XRAY Chest (1 view); Complete Time: 21:17 kb 07/17 17:58 Order name: BIPAP kb 07/17 19:47 Order name: CBC with Automated Diff EDMS 07/17 19:47 Order name: CBC with Automated Diff EDMS 07/17 19:47 Order name: CBC with Automated Diff EDMS 07/17 19:47 Order name: Comprehensive Metabolic Panel EDMS 07/17 19:47 Order name: Comprehensive Metabolic Panel EDMS 07/17 19:47 Order name: Comprehensive Metabolic Panel EDMS 07/17 19:47 Order name: Comprehensive Metabolic Panel EDMS 07/17 19:47 Order name: Magnesium EDMS 07/17 19:47 Order name: Magnesium EDMS 07/17 19:47 Order name: Phosphorus EDMS 07/17 19:47 Order name: Phosphorus EDMS 07/17 19:54 Order name: Urine Culture tw5 07/17 17:58 Order name: EKG; Complete Time: 17:59 kb 07/17 17:58 Order name: Cardiac monitoring; Complete Time: 18:36 kb 07/17 17:58 Order name: EKG - Nurse/Tech; Complete Time: 18:36 kb 07/17 17:58 Order name: IV Saline Lock; Complete Time: 18:36 kb 07/17 17:58 Order name: Labs collected and sent; Complete Time: 18:36 kb 07/17 17:58 Order name: O2 Per Protocol; Complete Time: 18:36 kb 07/17 17:58 Order name: O2 Sat Monitoring; Complete Time: 18:36 kb 07/17 18:15 Order name: IV Saline Lock - Large Bore; Complete Time: 18:36 kb 07/17 18:15 Order name: Vital Signs; Complete Time: 18:36 kb 07/17 19:47 Order name: CONS Physician Consult EDMS 07/17 19:47 Order name: NPO EDMS EC:16 Rate is 86 beats/min. Rhythm is regular. Right axis deviation noted. GA interval is kb normal at 180 msec. QRS interval is normal at 88 msec. QT interval is normal at 471 msec. Administered Medications: 18:41 Drug: Lasix (furosemide) 20 mg Route: IVP; Site: right antecubital; mb8 19:48 Not Given (Physician Discretion): Tamiflu (oseltamivir) Suspension 30 mg PO once tw5 20:07 Drug: Lasix (furosemide) 20 mg Route: IVP; Site: right antecubital; tw5 Disposition Summary: 07/17/22 19:53 Hospitalization Ordered Hospitalization Status: Inpatient Admission kb Provider: Modesto Gotti Location: Telemetry/MedSurg (Inpatient) kb Condition: Fair kb Problem: an acute exacerbation kb Symptoms: are unchanged kb Bed/Room Type: Standard Room Assignment: 418(07/17/22 20:02) Diagnosis - Influenza due to identified novel influenza A virus kb - Unspecified combined systolic (congestive) and diastolic (congestive) heart failure kb - Hypoxia kb Forms: - Medication Reconciliation Form kb - SBAR form kb Signatures: Dispatcher [employer] EDMA Malika Easton FNP-C FNP-Mary Small RN RN Yudith Salas RN RN tw2 Elisabeth Westfall tw5 Andrew Acharya RN RN mb8 Corrections: (The following items were deleted from the chart) 18:48 18:15 Accucheck ordered. kb mb8 20:02 19:53 kb
--- NOTE | 2022-07-17 21:00 | RAD REPORT ---
EXAM DESCRIPTION: RAD - Chest Single View - 07/17/2022 8:49 pm CLINICAL HISTORY: DYSPNEA COMPARISON: Chest Single View dated 06/08/2022; Chest Single View dated 03/17/2022; Chest Single View d ated 03/20/2020; Chest Single View dated 12/07/2019 FINDINGS: Lines: None. Lungs: Bilateral multifocal interstitial and airspace disease. Pleural: No significant pleural effusions or pneumothorax. Cardiac: Cardiomegaly. Mediastinum: Within normal limits. Bones: No acute fractures. Other: None IMPRESSION: Multifocal interstitial airspace opacities most likely representing edema rather than pn eumonia.
[2022-07-17] MEDS ORDERED: BENZONATATE 100 MG CAP PO PRN (22:59)
[2022-07-17] MEDS ORDERED: guaiFENesin 100 MG/5 ML UCUP PO PRN (22:59)
[2022-07-17] MEDS: OSELTAMIVIR 30 MG CAP PO SCH (23:00)
[2022-07-17] MEDS: HYDRALAZINE HCL 25 MG TABLET PO SCH (23:15)
[2022-07-17] MEDS: ATORVASTATIN 40 MG TAB PO SCH (23:15)
[2022-07-18] MEDS: ENOXAPARIN 100 MG/ML SYR SQ SCH ×3 (00:53→21:37)
[2022-07-18] MEDS ORDERED: HYDRALAZINE HCL 20 MG/ML VIAL IV ONE (01:27)
[2022-07-18 05:06] LABS: Absolute Lymphocytes (CBC) 0.6 K/uL (0.7-4.9); Lymphocytes % 6.6 % (15.3-44.8); MCV 84.5 fL (80-100); MPV 8.2 fL (7.6-11.3); RBC Red Blood Cell Count 5.09 M/uL (4.33-5.43)
[2022-07-18 05:18] LABS: Albumin 2.4 g/dL (3.4-5.0); Magnesium 2.1 mg/dL (1.8-2.4); Phosphorus 2.9 mg/dL (2.5-4.9); Potassium 4.2 mmol/L (3.5-5.1); Protein, Total 7.8 g/dL (6.4-8.2)
[2022-07-18] MEDS: SOTALOL HCL 80 MG TAB PO SCH ×2 (06:00→17:00)
[2022-07-18] MEDS: CLOPIDOGREL 75 MG TABLET PO SCH (09:00)
[2022-07-18] MEDS ORDERED: FUROSEMIDE 40 MG/4 ML VIAL IV SCH (09:00)
[2022-07-18] MEDS: AMLODIPINE 10 MG TAB PO SCH (09:00)
[2022-07-18] MEDS: LOSARTAN POTASSIUM 50 MG TABLET PO SCH (09:00)
[2022-07-18] MEDS: OSELTAMIVIR 30 MG CAP PO SCH ×2 (09:00→21:37)
[2022-07-18] MEDS: ASPIRIN EC 81 MG TAB PO SCH (09:00)
[2022-07-18] MEDS ORDERED: HEPARIN 5000 UNIT/ML 1 ML VIAL SQ SCH (09:00)
[2022-07-18] MEDS: HYDRALAZINE HCL 25 MG TABLET PO SCH ×3 (09:00→21:37)
--- NOTE | 2022-07-18 12:22 | P.CNS ---
Date of Consult: 07/18/22 Reason for Consult: Respiratory failure Chief Complaint: Shortness of Breath History of Present Illness: Patient is 72 years of age history of coronary artery disease congestive heart failure diabetes hypertension presented to the emergency room complaining of acute on chronic shortness of breath he has been short of breath for quite a number of weeks lower extremity edema denies any fever or chills interstitial changes on chest x-ray he is quite short of breath requiring BiPAP Allergies Penicillins Adverse Reaction (Verified 03/17/20 15:42) Hives Home Medications: Amlodipine [Norvasc*] 10 mg PO DAILY #30 tab 06/10/22 Aspirin [Aspirin EC 81 MG] 81 mg PO DAILY #30 tablet.dr 06/10/22 Atorvastatin Calcium [Lipitor] 80 mg PO BEDTIME #30 tab 06/10/22 Clopidogrel Bisulfate [Plavix*] 75 mg PO DAILY #30 tab 06/10/22 Empagliflozin [Jardiance] 25 mg PO DAILY 30 Days #30 tablet 06/10/22 Furosemide [Lasix*] 40 mg PO BIDL 30 Days #60 tab 06/10/22 Hydralazine [Apresoline*] 25 mg PO TID #90 tab 06/10/22 Insulin Glargine,Hum.rec.anlog [Lantus] 25 unit SQ BEDTIME #10 ml 06/10/22 Insulin Glargine,Hum.rec.anlog [Lantus] 70 unit SQ DAILY #10 ml 06/10/22 Losartan Potassium [Cozaar*] 100 mg PO DAILY #60 tablet 06/10/22 Metformin HCl 1,000 mg PO DAILY 30 Days #30 tablet 06/10/22 Sotalol HCl [Betapace*] 120 mg PO BID 6AM 6PM #60 tab 06/10/22 Doxazosin [Cardura] 2 mg PO BEDTIME 07/17/22 Ferrous Sulfate [Iron] 325 mg PO DAILY 07/17/22 Pantoprazole Sodium [Protonix] 40 mg PO DAILY 07/17/22 - Past Medical/Surgical History Diabetic: Yes -: hypertension -: hyperlipidemia -: Atrial fibrillation -: IDDM -: ID -: heart stents Psychosocial/ Personal History: Patient is . - Family History Brother Medical History: Heart disease, Hypertension - Social History Smoking Status: Former smoker Alcohol use: Yes CD- Drugs: No Caffeine use: No Place of Residence: Home Review of Systems 10-point ROS is otherwise unremarkable General: Weakness Respiratory: Shortness of Breath Physical Examination Temp Pulse Resp BP Pulse Ox 98.2 F 79 18 162/89 H 96 07/18/22 08:00 07/18/22 09:09 07/18/22 08:00 07/18/22 09:09 07/18/22 08:00 General: Alert, Oriented x3, Moderate distress Respiratory: Crackles/rales Cardiovascular: Regular rate/rhythm, Normal S1 S2, Edema (3+) Gastrointestinal: Normal bowel sounds, Soft and benign Integumentary: No rashes, No breakdown Laboratory Data (last 24 hrs) 07/17/22 18:21: PT 13.2 H, INR 1.20, APTT 37.2 H 07/17/22 18:21: WBC 7.60, Hgb 14.4, Hct 45.9, Plt Count 340 07/17/22 18:21: Sodium 137, Potassium 4.3, BUN 23 H, Creatinine 1.83 H, Glucose 219 H, Magnesium 2.0, Total Bilirubin 0.6, AST 12 L, ALT 20, Alkaline Phosphata se 75 - Problems (1) Acute CHF Current Visit: No Status: Acute Plan: Patient is 72 years of age admitted with acute on chronic dyspnea he is a history of CHF coronary artery disease. Agree with IV Lasix may need higher doses to 20 mg 3 times a day check urinary sodium to assess adequacy of diuresis doubt pulmonary embolism although his D-dimer was elevated patient has a history of A. fib is not on any anticoagulation continue with anticoagulation right now is not stable to undergo VQ scan positive for influenza A blood gases show hypoxemia with mild hypercarbia Qualifiers: Heart failure type: systolic Qualified Code(s): I50.21 - Acute systolic (congestive) heart failure
[2022-07-18] MEDS: METOLAZONE 2.5 MG TABLET PO SCH (13:35)
[2022-07-18] MEDS: FUROSEMIDE 40 MG/4 ML VIAL IV SCH ×2 (13:37→21:37)
--- NOTE | 2022-07-18 16:08 | EKG ---
Test Date: 2022-07-17 Test Time: 18:29:28 Packaging Coordinator: MEASUREMENT RESULTS: Intervals: Rate: 86 RI: 180 QRSD: 88 QT: 394 QTc: 471 [place]: P: 72 RI: 180 QRS: 113 T: 34 INTERPRETIVE STATEMENTS: Sinus rhythm with premature ventricular complexes or fusion complexes Possible Left atrial enlargement Right axis deviation Abnormal ECG Compared to ECG 06/08/2022 22:58:03 Fusion complex(es) now present Ventricular premature complex(es) now present Right-axis deviation now present Prolonged QT interval no longer present Electronically Signed On 07-18-22 16:07:13 CDT by Chad Alvarez
--- NOTE | 2022-07-18 18:55 | CON ---
Date of Consultation: 07/18/2022 Reason For Consultation: Shortness of breath. History Of Present Illness: This is a 72-year-old male with past medical history of moderate aortic valve stenosis, hypertension, dyslipidemia, and chronic systolic heart failure, diabetes, atrial fibr illation, presented to the emergency room with shortness of breath. He has history of coronary arter y disease, status post PCI in the past. Shortness of breath has been progressive along with some ort hopnea. He has been experiencing cough and low energy level, and he has also some body aches and was tested positive for influenza. The patient at the time of evaluation was stable, in no distress. Past Medical History: As outlined above in HPI. Medications: Refer to reconciliation sheet for detailed list. Allergies: PENICILLIN. Family History: No premature coronary artery disease or cancer. Social History: Does not smoke or drink. Does not use any drugs. Review of Systems: All systems reviewed and they were negative except for what mentioned in HPI. Physical Examination: Vital Signs: Reviewed. Head and Neck: Pupils are equal, reactive to light. Intact eye movements. No JVD. No cervical lym phadenopathy. Neck is supple. Thyroid is not enlarged. Lungs: Decreased breathing sounds with rhonchi bilaterally. No accessory muscle use or muscle retra ction. Heart: Irregular. No extra sounds. Abdomen: Soft, nontender. Bowel sounds positive. No organomegaly. No masses or hernia. No rigidi ty or rebound. Extremities: No clubbing or cyanosis. Intact pulses. Skin: No rash. Neurologic: Alert, awake. No acute focal deficits appreciated. Investigations: Labs were reviewed. Assessment And Recommendations: 1.Acute hypoxic respiratory failure likely due to influenza A and component of congestive heart fail ure. Continue current management with oxygen therapy and BiPAP as needed and IV diuretics. See zena hennessy. 2.Acute on chronic systolic heart failure exacerbation. Continue IV Lasix. Monitor BUN, creatinine , electrolytes. Troponin trend was negative. 3.Acute on chronic kidney failure, probably due to fluid overload. Continue Lasix at 40 mg IV t.i.d . and monitor BUN, creatinine, electrolytes. 4.Influenza A, management as per hospitalist. 5.Atrial fibrillation. Rate is controlled. Continue sotalol. This patient will need some form of anticoagulation; however, due to the fact that he has taken Plavix, might consider the appendage clos ure on him in the near future. /LORNE Voice ID: [id number] Report ID: [id number]
[2022-07-18] MEDS: ATORVASTATIN 40 MG TAB PO SCH (21:37)
--- NOTE | 2022-07-18 23:05 | P.PN ---
Date of Service: 07/18/22 Subjective: no acute events overnight feels slightly improved on BIPAP no new symptoms ROS: 10 point ROS as noted above, otherwise negative Physical Exam: Gen: NAD, AOx3 HEENT: normal conjunctiva, sclera anicteric CV: regular rate & rhythm, 2+ edema Pulm: mildly labored on BIPAP, diminished, b/l rales Abd: soft, non-tender, non-distended Skin: no rashes, no lesions Neuro: normal speech, normal affect, moves all extremities vitals reviewed Problem List Acute Hypoxic Respiratory Failure - likely secondary to Pulmonary Edema and Influenza A Infection 64% on RA on arrival to ED, placed on BIPAP elevated d-dimer, no CTA due to renal function, VQ scan ordered requiring too much O2 support to perform VQ scan at this time pulm edema on CXR flu+ pulm consulted wean O2 tamiflu, tessalon perles Acute on Chronic Decompensated Systolic Congestive Heart Failure Moderate Aortic Stenosis cardiology consulted continue IV lasix echo ordered Severe Viral Sepsis likely secondary to Influenza A Infection on presentation, documented to have severe sepsis improving f/u cultures antibiotics held Chronic Atrial Fibrillation with RVR CHADSVASc 5 started on therapeutic lovenox on admission continue home sotalol IDDM2 - f/u A1c, confirm home meds, accucheks, SSI Coronary Artery Disease s/p PCI - Continue home aspirin, clopidogrel, atorvastatin, sotalol, losartan Hypertension - Continue home losartan, hydralazine, amlodipine, sotalol, doxazosin CKD3 -Cr: 1.83, ~baseline -IV lasix -monitor I/Os VTE: lovenox 1mg/kg BID Code: full Dispo: home, few days Time Spent Managing Pts Care (In Minutes): 35
[2022-07-19 04:50] LABS: Absolute Lymphocytes (CBC) 0.8 K/uL (0.7-4.9); Hematocrit 41.4 % (39.6-49.0); Lymphocytes % 7.6 % (15.3-44.8); MCV 84.7 fL (80-100); MPV 8.5 fL (7.6-11.3); RBC Red Blood Cell Count 4.89 M/uL (4.33-5.43)
[2022-07-19 05:07] LABS: Albumin 2.2 g/dL (3.4-5.0); Bilirubin Total 1.7 mg/dL (0.2-1.0); Potassium 3.8 mmol/L (3.5-5.1); Protein, Total 7.3 g/dL (6.4-8.2)
[2022-07-19] MEDS: SOTALOL HCL 80 MG TAB PO SCH ×2 (05:36→17:07)
[2022-07-19] MEDS ORDERED: HYDRALAZINE HCL 20 MG/ML VIAL IV PRN (08:03)
[2022-07-19] MEDS: ENOXAPARIN 100 MG/ML SYR SQ SCH (08:45)
[2022-07-19] MEDS: METOLAZONE 2.5 MG TABLET PO SCH (08:45)
[2022-07-19] MEDS: FUROSEMIDE 40 MG/4 ML VIAL IV SCH ×3 (08:46→21:53)
[2022-07-19] MEDS: HYDRALAZINE HCL 25 MG TABLET PO SCH ×3 (08:46→21:53)
[2022-07-19] MEDS: CLOPIDOGREL 75 MG TABLET PO SCH (08:46)
[2022-07-19] MEDS: LOSARTAN POTASSIUM 50 MG TABLET PO SCH (08:46)
[2022-07-19] MEDS: ASPIRIN EC 81 MG TAB PO SCH (08:46)
[2022-07-19] MEDS: AMLODIPINE 10 MG TAB PO SCH (08:46)
[2022-07-19] MEDS: OSELTAMIVIR 30 MG CAP PO SCH ×2 (08:46→21:00)
--- NOTE | 2022-07-19 08:50 | RAD REPORT ---
EXAM DESCRIPTION: RAD - Chest Single View - 07/19/2022 6:35 am CLINICAL HISTORY: CHF Chest pain. COMPARISON: Chest Single View dated 07/17/2022; Chest Single View dated 06/08/2022; Chest Single View dated 03/17/2022; Chest Single View dated 03/20/2020 FINDINGS: Portable technique limits examination quality. Moderate bilateral pulmonary opacities are present, unchanged. Heart is moderately enlarged in size. Or small pleural effusion present on the right. No displaced fractures.Aortic atherosclerosis. IMPRESSION: Moderate CHF versus volume overload pattern without significant change.
--- NOTE | 2022-07-19 12:18 | P.PN ---
Subjective Date of Service: 07/19/22 Chief Complaint: Respiratory failure Subjective: Improving (Improving despite being in negative fluid balance is still very short of breath requiring BiPAP lower extremity edema) Review of Systems General: Weakness Respiratory: Cough, Shortness of Breath Physical Examination - Vital Signs Temperature: 97.2 F Blood Pressure: 169/81 Pulse: 66 Respirations: 17 Pulse Ox (%): 92 - Physical Exam General: Alert, Oriented x3, Moderate distress Respiratory: Clear to auscultation bilaterally, Diminished Cardiovascular: Regular rate/rhythm, Normal S1 S2, Edema (3+ edema) Gastrointestinal: Normal bowel sounds, Soft and benign - Studies Microbiology Data (last 24 hrs): 07/17/22 19:30 Blood - Blood Anaerobic Blood Culture - Final Assessment And Plan - Current Problems (Diagnosis) (1) Acute CHF Current Visit: No Status: Acute Plan: Patient admitted with respiratory failure continue with aggressive diuresis echocardiogram is pending renal function is slightly worse has had about -4 L so far is at risk for thromboembolism continue with empiric anticoagulation with Eliquis DC Lovenox oxygenation satisfactory Qualifiers: Heart failure type: systolic Qualified Code(s): I50.21 - Acute systolic (congestive) heart failure
--- NOTE | 2022-07-19 17:24 | P.PN ---
Subjective Date of Service: 07/19/22 Chief Complaint: Respiratory failure Patient was seen on BiPAP. No recorded fever. Physical Examination - Vital Signs Temperature: 98.4 F Blood Pressure: 172/81 Pulse: 73 Respirations: 18 Pulse Ox (%): 94 - Studies Microbiology Data (last 24 hrs): 07/17/22 19:30 Blood - Blood Anaerobic Blood Culture - Final Assessment And Plan - Plan Physical Exam: Gen: Mild respiratory distress, AOx3 HEENT: BiPAP. CV: regular rate & rhythm, 2+ edema Pulm: mildly labored on BIPAP, b/l rales Abd: soft, non-tender, non-distended Skin: no rashes, no lesions Neuro: No focal motor deficit. Diagnosis Acute Hypoxic Respiratory Failure - likely secondary to Pulmonary Edema and Influenza A Infection Patient is tolerating BiPAP and high flow oxygen. elevated d-dimer, no CTA due to renal function, VQ scan ordered but patient unstable to do the test. Continue IV Lasix Pulmonary input appreciated wean O2 Acute on Chronic systolic heart failure/Moderate Aortic Stenosis continue IV lasix echo ordered Severe Viral Sepsis likely secondary to Influenza A Infection on presentation, documented to have severe sepsis Blood cultures; no growth to date Continue Tamiflu. Oral Levaquin. Chronic Atrial Fibrillation with RVR CHADSVASc 5 started on therapeutic lovenox on admission. Therapeutic Lovenox should also cover possible PE until ruled out by VQ scan continue home sotalol. IDDM2 - accucheks, SSI Coronary Artery Disease s/p PCI - Continue home aspirin, clopidogrel, atorvastatin, sotalol, losartan Hypertension - Continue home losartan, hydralazine, amlodipine, sotalol, doxazosin CKD3 -Cr: 1.83, stable at baseline -Continue IV lasix
[2022-07-19] MEDS: ATORVASTATIN 40 MG TAB PO SCH (21:53)
[2022-07-19] MEDS: APIXABAN 5 MG TABLET PO SCH (21:53)
--- NOTE | 2022-07-19 22:19 | PN ---
Date of Progress Note: 07/19/2022 Subjective: Seen at bedside. Continues to be short of breath, but with improvement. Review of Systems: Positive for shortness of breath and cough, low-grade fever. No nausea, vomiting, diarrhea. No abdo carmelo pain. No dysuria, polyuria, or urinary urgency. All other systems reviewed are negative. Physical Examination: Vital Signs: Reviewed. Head and Neck: Pupils are equal, reactive to light. Intact eye movements. No JVD. No cervical dulce nopathy. Neck: Supple. Thyroid is not enlarged. Lungs: Clear to auscultation bilaterally. No rhonchi, wheezing, or crackles. No accessory muscle u se. Heart: Regular. No extra sounds. Abdomen: Soft, nontender. Bowel sounds positive. No organomegaly. No masses or hernia. No rigidi ty or rebound. Extremities: No clubbing or cyanosis. Intact pulses. Edema, it is a 2 to 3+. Neuro: Alert, awake, oriented x3. No acute focal deficits appreciated. Investigations: BUN is 29, creatinine 1.8. Hemoglobin is 13.2. Assessment And Recommendation: 1.Acute on chronic systolic congestive heart failure exacerbation. Patient is being diuresed with L asix. I recommend to decrease the frequency to twice a day and carefully monitor BUN, creatinine, el ectrolytes. 2.Atrial fibrillation is controlled. Continue current management including Eliquis. 3.Hypertension. Blood pressure is elevated. Should improve further with diuresis. 4.Aortic valve stenosis, moderate in severity, and this is being monitored. SR/MODL Voice ID: [id number] Report ID: [id number]
[2022-07-20 03:50] LABS: Hematocrit 39.3 % (39.6-49.0); Lymphocytes % 11.4 % (15.3-44.8); MCV 83.5 fL (80-100); MPV 8.4 fL (7.6-11.3); RBC Red Blood Cell Count 4.71 M/uL (4.33-5.43)
[2022-07-20 04:09] LABS: Bilirubin Total 1.3 mg/dL (0.2-1.0); Potassium 3.1 mmol/L (3.5-5.1)
[2022-07-20] MEDS: SOTALOL HCL 80 MG TAB PO SCH ×2 (05:14→17:26)
[2022-07-20] MEDS ORDERED: POTASSIUM 25 MEQ EFFERV TAB PO ONE (06:00)
[2022-07-20] MEDS: METOLAZONE 2.5 MG TABLET PO SCH (08:33)
[2022-07-20] MEDS: AMLODIPINE 10 MG TAB PO SCH (08:34)
[2022-07-20] MEDS: OSELTAMIVIR 30 MG CAP PO SCH ×2 (08:34→22:29)
[2022-07-20] MEDS: HYDRALAZINE HCL 25 MG TABLET PO SCH ×3 (08:34→22:30)
[2022-07-20] MEDS: LOSARTAN POTASSIUM 50 MG TABLET PO SCH (08:34)
[2022-07-20] MEDS: CLOPIDOGREL 75 MG TABLET PO SCH (08:34)
[2022-07-20] MEDS: APIXABAN 5 MG TABLET PO SCH ×2 (08:34→22:30)
[2022-07-20] MEDS: ASPIRIN EC 81 MG TAB PO SCH (08:35)
[2022-07-20] MEDS: FUROSEMIDE 40 MG/4 ML VIAL IV SCH ×3 (08:35→22:30)
[2022-07-20] MEDS ORDERED: DIPHENOX/ATROP SULF 1 TAB PO PRN (10:16)
--- NOTE | 2022-07-20 15:10 | PN ---
Date of Progress Note: 07/20/2022 Subjective: Seen by bedside, clinically is better. Review of Systems: No chest pain. Has shortness of breath and mild orthopnea and cough. Lower extremity edema. No maritza sea, vomiting, diarrhea. No abdominal pain. No dysuria, polyuria, or urinary urgency. No skin rash . All other systems reviewed are negative. Physical Examination: Vital Signs: Reviewed. Head and Neck: Pupils are equal, reactive to light. Intact eye movements. Mild JVD elevation. Lungs: Clear to auscultation bilaterally. No rhonchi, wheezing, or crackles. No accessory muscle u se. Heart: Irregularly irregular with aortic systolic murmur. Abdomen: Soft, nontender. Bowel sounds positive. No organomegaly. No masses or hernia. No rigidi ty or rebound. Extremities: 1 to 2+ pedal edema bilaterally. No clubbing, cyanosis. Intact pulses. Skin: No rashes. Neurologic: Alert, awake. No acute focal deficits appreciated. Investigations: BUN is 32, creatinine is 1.75. Hemoglobin is 12.8. Assessment And Recommendations: 1.Acute on chronic systolic heart failure exacerbation, improving very well. Decrease Lasix to twic e a day and carefully monitor BUN, creatinine, electrolytes. Patient will require more diuresis on a slower pace. 2.Acute on chronic kidney failure, probably in part due to the fluid overload condition. He is improving with diuresis. 3.Influenza A possible pneumonia, clinically improving. SR/MODL Voice ID: [id number] Report ID: [id number]
--- NOTE | 2022-07-20 15:15 | P.PN ---
Subjective Date of Service: 07/20/22 Chief Complaint: Respiratory failure Patient states he feels better today. He is currently tolerating oxygen by nasal cannula. Lower extremity edema has improved. Physical Examination - Vital Signs Temperature: 97.0 F Blood Pressure: 147/67 Pulse: 107 Respirations: 16 Pulse Ox (%): 96 Assessment And Plan - Plan Physical Exam: Gen: NAD, AOx3 HEENT: BiPAP. CV: regular rate & rhythm, 2+ edema Pulm: mildly labored on BIPAP, b/l rales Abd: soft, non-tender, non-distended Skin: no rashes, no lesions Neuro: No focal motor deficit. Diagnosis Acute Hypoxic Respiratory Failure - likely secondary to Pulmonary Edema and Influenza A Infection Patient is tolerating oxygen by nasal cannula today. elevated d-dimer, no CTA due to renal function, VQ scan ordered but patient was unstable to do the test. We will attempt VQ scan tomorrow as his respiratory status continues to improve Continue IV Lasix Pulmonary is following. wean O2 Acute on Chronic systolic heart failure/Moderate Aortic Stenosis continue IV lasix echo ordered Severe Viral Sepsis likely secondary to Influenza A Infection on presentation, documented to have severe sepsis Blood cultures; no growth to date Continue Tamiflu. Oral Levaquin. Chronic Atrial Fibrillation with RVR CHADSVASc 5 started on therapeutic lovenox on admission. Therapeutic Lovenox should also cover possible PE until ruled out by VQ scan continue home sotalol. IDDM2 - accucheks, SSI Coronary Artery Disease s/p PCI - Continue home aspirin, clopidogrel, atorvastatin, sotalol, losartan Hypertension - Continue home losartan, hydralazine, amlodipine, sotalol, doxazosin CKD3 -Cr: 1.83, stable at baseline -Continue IV lasix
[2022-07-20] MEDS ORDERED: POTASSIUM CL SA 10 MEQ TAB PO ONE (21:00)
[2022-07-20] MEDS: ATORVASTATIN 40 MG TAB PO SCH (22:30)
[2022-07-21] MEDS: SOTALOL HCL 80 MG TAB PO SCH ×2 (05:15→16:59)
[2022-07-21 06:12] LABS: Absolute Lymphocytes (CBC) 0.8 K/uL (0.7-4.9); Hematocrit 42.1 % (39.6-49.0); MCV 83.8 fL (80-100); MPV 8.5 fL (7.6-11.3); RBC Red Blood Cell Count 5.03 M/uL (4.33-5.43)
[2022-07-21 06:31] LABS: Potassium 3.4 mmol/L (3.5-5.1)
[2022-07-21] MEDS ORDERED: POTASSIUM CL SA 10 MEQ TAB PO ONE (08:00)
[2022-07-21] MEDS: APIXABAN 5 MG TABLET PO SCH (09:06)
[2022-07-21] MEDS: HYDRALAZINE HCL 25 MG TABLET PO SCH ×3 (09:06→21:53)
[2022-07-21] MEDS: LOSARTAN POTASSIUM 50 MG TABLET PO SCH (09:07)
[2022-07-21] MEDS: AMLODIPINE 10 MG TAB PO SCH (09:07)
[2022-07-21] MEDS: CLOPIDOGREL 75 MG TABLET PO SCH (09:08)
[2022-07-21] MEDS: ASPIRIN EC 81 MG TAB PO SCH (09:08)
[2022-07-21] MEDS: FUROSEMIDE 40 MG/4 ML VIAL IV SCH ×3 (09:08→21:53)
[2022-07-21] MEDS: OSELTAMIVIR 30 MG CAP PO SCH ×2 (09:09→21:53)
[2022-07-21] MEDS: METOLAZONE 2.5 MG TABLET PO SCH (09:09)
--- NOTE | 2022-07-21 14:24 | RAD REPORT ---
EXAM DESCRIPTION: NM - Vent Perfusion VQ Scan - 07/21/2022 1:53 pm CLINICAL HISTORY: Shortness of breath COMPARISON: Chest x-ray July 21, 2022 TECHNIQUE: Ventilation sequences were not performed as the patient is on high flow oxygen. 7.1 millicuries Technetium-99 MAA was administered intravenously. Anterior, posterior, lateral and ob lique views of the lungs were taken. FINDINGS: Lungs demonstrate mildly inhomogeneous radiotracer activity. No significant peripheral areas diminished radiotracer activity visualized within the lungs. IMPRESSION: The patient has a low probability for a pulmonary embolus
--- NOTE | 2022-07-21 14:35 | RAD REPORT ---
EXAM DESCRIPTION: Mary Single View07/21/2022 1:55 pm CLINICAL HISTORY: Shortness of breath COMPARISON: July 19, 2022 FINDINGS: Bilateral pulmonary opacities have partially resolved. Heart remains enlarged. There may be small pleural effusions
--- NOTE | 2022-07-21 17:02 | P.PN ---
Subjective Date of Service: 07/21/22 Chief Complaint: Respiratory failure Patient currently tolerating 9 Liters of oxygen by nasal cannula. He has no new complaint. Physical Examination - Vital Signs Temperature: 97.6 F Blood Pressure: 156/68 Pulse: 67 Respirations: 16 Pulse Ox (%): 98 Assessment And Plan - Plan Physical Exam: Gen: NAD, AOx3 CV: regular rate & rhythm, 2+ edema Pulm: mildly labored on BIPAP, b/l rales Abd: soft, non-tender, non-distended Skin: no rashes, no lesions Neuro: No focal motor deficit. Diagnosis Acute Hypoxic Respiratory Failure - likely secondary to Pulmonary Edema and Influenza A Infection Patient is tolerating oxygen by nasal cannula today. elevated d-dimer, no CTA due to renal function. VQ scan reported low probability for PE Continue IV Lasix Pulmonary is following. wean O2 Acute on Chronic systolic heart failure/Moderate Aortic Stenosis continue IV lasix echo ordered Severe Viral Sepsis likely secondary to Influenza A Infection on presentation, documented to have severe sepsis Blood cultures; no growth to date Continue Tamiflu. Oral Levaquin. Chronic Atrial Fibrillation with RVR CHADSVASc 5 Transition therapeutic Lovenox to oral Eliquis. continue home sotalol. IDDM2 - accucheks, SSI Coronary Artery Disease s/p PCI - Continue home aspirin, clopidogrel, atorvast atin, sotalol, losartan Hypertension - Continue home dose losartan, hydralazine, amlodipine, sotalol, doxazosin CKD3 -Cr: 1.83, stable at baseline -Continue IV lasix and monitor renal function.
[2022-07-21] MEDS: ATORVASTATIN 40 MG TAB PO SCH (21:53)
[2022-07-21] MEDS: APIXABAN 2.5 MG TABLET PO SCH (21:54)
--- NOTE | 2022-07-21 23:21 | PN ---
Date of Progress Note: 07/21/2022 Subjective: Seen by bedside. He continues to improve. Review of Systems: No chest pain, shortness of breath, orthopnea, or cough. No nausea, vomiting, or diarrhea. No abdom inal pain. No dysuria, polyuria, or urgency. All other systems reviewed and are negative. Objective: Vital Signs: Temperature is 97.6, pulse 67, breathing at 16, blood pressure is 158/60, s aturating 98%. General: A pleasant elderly male, in no distress. Head And Neck: Pupils are equal and reactive to light. Intact eye movements. No JVD. No cervical lymphadenopathy. Neck: Supple. Thyroid is not enlarged. Lungs: Clear to auscultation bilaterally. No rhonchi, wheezing, or crackles. No accessory muscle u se. Heart: Irregular. No extra sounds. Abdomen: Soft, nontender. Bowel sounds positive. No organomegaly. No masses or hernia. No rigidi ty or rebound. Extremities: No clubbing or cyanosis. Intact pulses. Skin: No rash. Neurologic: Alert, awake, and oriented x3. No acute focal deficits appreciated. Lymph Nodes: No cervical or axillary adenopathy. Investigations: BUN is 37 and creatinine 1.84. Assessment And Recommendations: 1.[id number]-vowifzq systolic heart failure exacerbation. I will switch to Lasix to twice a day; howev er, we will use 80 mg as his creatinine is elevated and continue metolazone and carefully monitor BUN , creatinine, and electrolytes for another day of IV diuresis and monitor clinically. 2.Chronic kidney disease. Recommend to consult Nephrology. 3.Influenza A. Clinically stable from that perspective. SR/MODL Voice ID: [id number] Report ID: [id number]
[2022-07-22 05:54] LABS: Albumin 2.4 g/dL (3.4-5.0); Phosphorus 2.8 mg/dL (2.5-4.9); Potassium 3.5 mmol/L (3.5-5.1)
[2022-07-22] MEDS: SOTALOL HCL 80 MG TAB PO SCH ×2 (06:38→18:05)
[2022-07-22] MEDS ORDERED: POTASSIUM CL SA 10 MEQ TAB PO ONE ×2 (07:02→17:26)
[2022-07-22] MEDS: APIXABAN 2.5 MG TABLET PO SCH ×2 (10:01→21:52)
[2022-07-22] MEDS: HYDRALAZINE HCL 25 MG TABLET PO SCH ×3 (10:01→21:52)
[2022-07-22] MEDS: ASPIRIN EC 81 MG TAB PO SCH (10:01)
[2022-07-22] MEDS: LOSARTAN POTASSIUM 50 MG TABLET PO SCH (10:01)
[2022-07-22] MEDS: CLOPIDOGREL 75 MG TABLET PO SCH (10:02)
[2022-07-22] MEDS: FUROSEMIDE 40 MG/4 ML VIAL IV SCH ×2 (10:02→15:00)
[2022-07-22] MEDS: AMLODIPINE 10 MG TAB PO SCH (10:02)
[2022-07-22] MEDS: METOLAZONE 2.5 MG TABLET PO SCH (10:03)
[2022-07-22] MEDS: OSELTAMIVIR 30 MG CAP PO SCH ×2 (10:03→21:52)
--- NOTE | 2022-07-22 16:53 | P.PN ---
Subjective Date of Service: 07/22/22 Chief Complaint: Respiratory failure Patient is requiring 10 L oxygen by nasal cannula Per report patient slid from his bed and fell, landing on his buttocks. No injuries sustained. Physical Examination - Vital Signs Temperature: 97.2 F Blood Pressure: 188/84 Pulse: 67 Respirations: 18 Pulse Ox (%): 94 Assessment And Plan - Plan Physical Exam: Gen: NAD, AOx3 CV: regular rate & rhythm, 2+ edema Pulm: mildly labored on BIPAP, b/l rales Abd: soft, non-tender, non-distended Skin: no rashes, no lesions Neuro: No focal motor deficit. Diagnosis Acute Hypoxic Respiratory Failure - likely secondary to Pulmonary Edema and I nfluenza A Infection Patient is tolerating 10 L oxygen by nasal cannula. elevated d-dimer, no CTA due to renal function. VQ scan reported low probability for PE Continue IV Lasix Pulmonary seen patient and following wean O2 as tolerated. Acute on Chronic systolic heart failure/Moderate Aortic Stenosis continue IV lasix Severe Viral Sepsis likely secondary to Influenza A Infection on presentation, documented to have severe sepsis Blood cultures; no growth to date Continue Tamiflu. Oral Levaquin. Chronic Atrial Fibrillation with RVR CHADSVASc 5 Continue oral Eliquis continue home dose sotalol. IDDM2 - accucheks, SSI Coronary Artery Disease s/p PCI - Continue home aspirin, clopidogrel, atorvastatin, sotalol, losartan Hypertension - Continue home dose losartan, hydralazine, amlodipine, sotalol, doxazosin CKD3 -Serum creatinine is trending up -Continue IV lasix and monitor renal function. -Nephrology consult. Fall -No injuries sustained. -PT evaluation.
--- NOTE | 2022-07-22 17:49 | P.CNS ---
Date of Consult: 07/22/22 Reason for Consult: CKD, diuretic management Requesting Physician: keith lambert Chief Complaint: Respiratory failure History of Present Illness: Pt is a 72 yo AAM who has a past medical history of CAD, chronic unspecified atrial fibrillation, chronic unspecified congestive heart failure per the records, moderate , type II diabetes mellitus, chronic hypertension and CKD Stage III who presented several days for shortness of breath which had been progressively worsening. Symptoms were worse with exertion. He was found to have positive influenza status, the interstitial infiltrates were felt to reflect PNA and cardiogenic pulm edema and he has been on IV lasix and metolazone diuresis for the past few days. Pt reports improvement in dyspnea and swelling. He however has been mostly in bed or at the side of the bed and has not been moving around much. Renal service has been consulted for assessment of his renal insufficiency in the context of diuretic escalation. Allergies Penicillins Adverse Reaction (Verified 03/17/20 15:42) Hives Home Medications: Amlodipine [Norvasc*] 10 mg PO DAILY #30 tab 06/10/22 Aspirin [Aspirin EC 81 MG] 81 mg PO DAILY #30 tablet. 06/10/22 Atorvastatin Calcium [Lipitor] 80 mg PO BEDTIME #30 tab 06/10/22 Clopidogrel Bisulfate [Plavix*] 75 mg PO DAILY #30 tab 06/10/22 Empagliflozin [Jardiance] 25 mg PO DAILY 30 Days #30 tablet 06/10/22 Furosemide [Lasix*] 40 mg PO BIDL 30 Days #60 tab 06/10/22 Hydralazine [Apresoline*] 25 mg PO TID #90 tab 06/10/22 Insulin Glargine,Hum.rec.anlog [Lantus] 25 unit SQ BEDTIME #10 ml 06/10/22 Insulin Glargine,Hum.rec.anlog [Lantus] 70 unit SQ DAILY #10 ml 06/10/22 Losartan Potassium [Cozaar*] 100 mg PO DAILY #60 tablet 06/10/22 Metformin HCl 1,000 mg PO DAILY 30 Days #30 tablet 06/10/22 Sotalol HCl [Betapace*] 120 mg PO BID 6AM 6PM #60 tab 06/10/22 Doxazosin [Cardura] 2 mg PO BEDTIME 07/17/22 Ferrous Sulfate [Iron] 325 mg PO DAILY 07/17/22 Pantoprazole Sodium [Protonix] 40 mg PO DAILY 07/17/22 - Past Medical/Surgical History Diabetic: Yes -: hypertension -: hyperlipidemia -: Atrial fibrillation -: IDDM -: IN -: heart stents Psychosocial/ Personal History: Patient is . - Family History Brother Medical History: Heart disease, Hypertension - Social History Smoking Status: Former smoker Alcohol use: Yes CD- Drugs: No Caffeine use: No Place of Residence: Home Review of Systems General: Weakness Eyes: Unremarkable ENT: Unremarkable Respiratory: Cough, Shortness of Breath, SOB with Excertion Cardiovascular: As per HPI Gastrointestinal: Unremarkable Genitourinary: Other ([place] present) Musculoskeletal: Pedal edema Integumentary: Unremarkable Neurological: Weakness, Unremarkable Physical Examination Temp Pulse Resp BP Pulse Ox 97.2 F 67 18 188/84 H 94 07/22/22 16:56 07/22/22 16:56 07/22/22 16:56 07/22/22 16:56 07/22/22 16:56 General: Alert, In no apparent distress, Cooperative HEENT: Atraumatic, Normocephalic, EOMI Neck: Supple Respiratory: Other (B/l air entry, no rhonchi or wheezes) Cardiovascular: Other (Non tachy, systolic cardiac murmur, irregular) Gastrointestinal: Soft and benign, No tenderness Musculoskeletal: Other (Peripheral edema improved, shins are non tender) Integumentary: Other (Wrinking of skin, xerosis) Neurological: Normal tone, Normal affect Conclusions/Impression: 1. Abnormal results of kidney functions studies 2. Stage 1 KAITLIN 3. CKD Stage III underlying 4. Acute on chronic systolic CHF 5. Influenza pneumonia 6. Acute pulm edema 7. , non rheumatic 8. Accelerated HTN -Cr level has trended up mildly from baseline levels, pt has been on IV Lasix with Metolazone for several days with clinical and radiographic improvement, recommend de-escalating diuretics and switching back to PO lasix and monitoring for any further pre-renal signs developing reginald if Metolazone continued. -BP remains accelerated, titrate hydralazine for continued afterload reduction, may also benefit from addition of nitrate for combined benefits. -Continue ARB at this time. -Monitor lytes closely, will dose additional PO KCl, check Mg level. -Check UA and spot urine study, prior remote studies revealed macroalbuminuria then. Thank you for this referral, Ryan Maloney MD, [facility]
[2022-07-22 19:46] LABS: Specific Gravity < 1.005 (1.005-1.030); Urine Bacteria <20 /HPF (<20); Urine Bilirubin NEGATIVE (Negative); Urine Blood Negative (Negative); Urine Clarity Clear (Clear); Urine Color Colorless (Yellow); Urine Glucose NEGATIVE (Negative); Urine Protein NEGATIVE (Negative); Urine Urobilinogen Normal (Normal); Urine pH 6.5 (5.0-7.0)
[2022-07-22 19:57] LABS: UR CREAT < 18.0 mg/dL (20-370); UR MICROALBUMIN < 0.5 mg/dL (< 1.9)
--- NOTE | 2022-07-22 20:50 | PN ---
Date of Progress Note: 07/22/2022 Subjective: Seen by bedside, clinically improving. His lower extremity edema is significantly seamus r. His breathing is better. Review of Systems: No chest pain, shortness of breath, orthopnea, or cough. No nausea, vomiting, or diarrhea. All othe r systems reviewed and are negative. Physical Examination: Vital Signs: Reviewed. Temperature 97.9, pulse 65, breathing at 18, blood pressure 153/72, saturati ng 94% on room air. General: Pleasant elderly male, in no apparent distress. Head and Neck: Pupils are equal and reactive to light. Intact eye movements. No JVD. No cervical lymphadenopathy. Neck: Supple. Thyroid is not enlarged. Lungs: Clear to auscultation bilaterally. No rhonchi, wheezing, or crackles. No accessory muscle u se. Heart: Irregular with the aortic systolic ejection murmur. Abdomen: Soft, nontender. Bowel sounds positive. No organomegaly. No masses or hernia. No rigidi ty or rebound. Extremities: The edema is significantly better, but still 1+. Neurologic: Alert, awake, oriented x3. No acute focal deficits appreciated. Investigations: BUN is 38, creatinine 1.99. Assessment And Recommendations: 1.Acute on chronic systolic heart failure exacerbation, improving with diuresis. Continue one more IV diuretics and switch to oral and plan for discharge within next 24 hours. Carefully monitor BUN, creatinine and electrolytes. 2.Influenza A. Patient is improving. 3.Atrial fibrillation, on Betapace. Continue current management. His heart rate is controlled and continue apixaban 2.5 mg twice a day. SR/MODL Voice ID: [id number] Report ID: [id number]
[2022-07-22] MEDS: ATORVASTATIN 40 MG TAB PO SCH (21:52)
[2022-07-23 04:59] LABS: Albumin 2.3 g/dL (3.4-5.0); Potassium 3.3 mmol/L (3.5-5.1)
[2022-07-23 05:33] LABS: Magnesium 1.8 mg/dL (1.8-2.4); Phosphorus 2.7 mg/dL (2.5-4.9)
[2022-07-23] MEDS: SOTALOL HCL 80 MG TAB PO SCH ×2 (06:06→16:50)
[2022-07-23] MEDS: APIXABAN 2.5 MG TABLET PO SCH ×2 (08:17→21:07)
[2022-07-23] MEDS: ASPIRIN EC 81 MG TAB PO SCH (08:17)
[2022-07-23] MEDS: CLOPIDOGREL 75 MG TABLET PO SCH (08:17)
[2022-07-23] MEDS: LOSARTAN POTASSIUM 50 MG TABLET PO SCH (08:17)
[2022-07-23] MEDS: FUROSEMIDE 40 MG TABLET PO SCH ×2 (08:18→16:49)
[2022-07-23] MEDS: HYDRALAZINE HCL 25 MG TABLET PO SCH ×3 (08:18→21:06)
[2022-07-23] MEDS: AMLODIPINE 10 MG TAB PO SCH (08:18)
[2022-07-23] MEDS: METOLAZONE 2.5 MG TABLET PO SCH (08:19)
[2022-07-23] MEDS ORDERED: FUROSEMIDE 40 MG/4 ML VIAL IV SCH (09:00)
[2022-07-23] MEDS ORDERED: POTASSIUM 25 MEQ EFFERV TAB PO ONE (09:00)
[2022-07-23] MEDS ORDERED: POTASSIUM CL SA 10 MEQ TAB PO ONE (09:24)
[2022-07-23] MEDS: SPIRONOLACTONE 25 MG TABLET PO SCH (13:23)
--- NOTE | 2022-07-23 16:12 | P.PN ---
Subjective Date of Service: 07/23/22 Chief Complaint: Respiratory failure Patient has no new complaints Patient is requiring up to 9 L oxygen by nasal cannula. Its been difficulty to wean down the oxygen. Physical Examination - Vital Signs Temperature: 97.6 F Blood Pressure: 152/72 Pulse: 58 Respirations: 18 Pulse Ox (%): 94 - Studies Microbiology Data (last 24 hrs): 07/17/22 19:30 Blood - Blood Aerobic Blood Culture - Final No growth in 5 days. 07/17/22 19:30 Blood - Blood Anaerobic Blood Culture - Final 07/17/22 18:21 Blood - Blood Aerobic Blood Culture - Final No growth in 5 days. 07/17/22 18:21 Blood - Blood Anaerobic Blood Culture - Final No growth in 5 days. Assessment And Plan - Plan Physical Exam: Gen: NAD, AOx3 CV: regular rate & rhythm, bilateral lower extremity edema improved. Pulm: Mild bibasilar rales. Abd: soft, non-tender, non-distended Skin: no rashes, no lesions Neuro: No focal motor deficit. Diagnosis Acute Hypoxic Respiratory Failure - likely secondary to Pulmonary Edema and Influenza A Infection Patient is currently on 9 L oxygen by nasal cannula. It's been difficult to wean down to oxygen elevated d-dimer, no CTA due to renal function. VQ scan reported low probability for PE Continue IV Lasix Pulmonary seen patient and following Continue to wean O2 as tolerated. Acute on Chronic systolic heart failure/Moderate Aortic Stenosis continue IV lasix Severe Viral Sepsis likely secondary to Influenza A Infection on presentation, documented to have severe sepsis Blood cultures; no growth to date Continue Tamiflu. Oral Levaquin. Chronic Atrial Fibrillation with RVR CHADSVASc 5 Continue oral Eliquis continue home dose sotalol. IDDM2 - accucheks, SSI Coronary Artery Disease s/p PCI - Continue home aspirin, clopidogrel, ator vastatin, sotalol, losartan Hypertension - Continue home dose losartan, hydralazine, amlodipine, sotalol, doxazosin CKD3 -Serum creatinine has been stable -Continue IV lasix and monitor renal function. -Nephrology input appreciated Fall -No injuries sustained. -PT evaluation. Disposition: Home once we are able to wean oxygen to 4 L or less.
--- NOTE | 2022-07-23 16:59 | PN ---
Date of Progress Note: 07/23/2022 Subjective: Seen by bedside. Clinically doing much better. His fluid status is significantly impro angie. Review of Systems: No chest pain. No shortness of breath, orthopnea, cough. No nausea, vomiting, diarrhea. His lower extremity edema is much better. All other systems reviewed and they were negative. Physical Examination: Vital Signs: Temperature is 97.6, pulse 58, breathing at 18, blood pressure is 152/72, saturating 94 % on room air. General: Pleasant elderly male, no apparent distress. Head and Neck: Pupils are equal, reactive to light. Intact eye movements. No JVD. No cervical lym phadenopathy. Neck is supple. Thyroid is not enlarged. Lungs: Clear to auscultation bilaterally. No rhonchi, wheezing, or crackles. No accessory muscle u se. Heart: Irregular with aortic systolic ejection murmur. Abdomen: Soft, nontender. Bowel sounds positive. No organomegaly. No masses or hernia. No rigidi ty or rebound. Extremities: No clubbing or cyanosis. Intact pulses. There is mild edema. Skin: No rash. Neurologic: Alert, awake. No acute focal deficits appreciated. Investigations: Labs were reviewed. Assessment And Recommendations: 1.Acute on chronic systolic heart failure exacerbation. Doing much better. Switching Lasix to oral . From Cardiology standpoint, this patient appears to be euvolemic. Continue current management wit h low salt diet. 2.Moderate aortic valve stenosis. This issue will be monitored with echo periodically. 3.Acute on chronic renal failure and that has improved with diuresis. Cardiology will sign off on this patient and will follow him up as an outpatient. SR/MODL Voice ID: [id number] Report ID: [id number]
[2022-07-23] MEDS: ATORVASTATIN 40 MG TAB PO SCH (21:06)
[2022-07-24 04:05] LABS: Albumin 2.2 g/dL (3.4-5.0); Phosphorus 2.9 mg/dL (2.5-4.9); Potassium 3.3 mmol/L (3.5-5.1)
[2022-07-24] MEDS: SOTALOL HCL 80 MG TAB PO SCH ×2 (06:52→17:41)
[2022-07-24] MEDS: METOLAZONE 2.5 MG TABLET PO SCH (08:56)
[2022-07-24] MEDS: LOSARTAN POTASSIUM 50 MG TABLET PO SCH (08:56)
[2022-07-24] MEDS: SPIRONOLACTONE 25 MG TABLET PO SCH (08:56)
[2022-07-24] MEDS: APIXABAN 2.5 MG TABLET PO SCH ×2 (08:57→21:06)
[2022-07-24] MEDS: HYDRALAZINE HCL 25 MG TABLET PO SCH ×3 (08:57→21:06)
[2022-07-24] MEDS: CLOPIDOGREL 75 MG TABLET PO SCH (08:57)
[2022-07-24] MEDS: ASPIRIN EC 81 MG TAB PO SCH (08:57)
[2022-07-24] MEDS: AMLODIPINE 10 MG TAB PO SCH (08:57)
[2022-07-24] MEDS: FUROSEMIDE 40 MG TABLET PO SCH ×2 (08:57→17:41)
[2022-07-24] MEDS ORDERED: POTASSIUM CL SA 10 MEQ TAB PO ONE (09:00)
--- NOTE | 2022-07-24 13:37 | P.PN ---
Subjective Date of Service: 07/24/22 Chief Complaint: Respiratory failure Patient denies any new His oxygen has been weaned down to 4 L with SaO2 greater than 90% Physical Examination - Vital Signs Temperature: 97.6 F Blood Pressure: 143/68 Pulse: 58 Respirations: 16 Pulse Ox (%): 92 Assessment And Plan - Plan Physical Exam: Gen: NAD, AOx3 CV: regular rate & rhythm, bilateral lower extremity edema improved. Pulm: Mild bibasilar rales. Abd: soft, non-tender, non-distended Skin: no rashes, no lesions Neuro: No focal motor deficit. Diagnosis Acute Hypoxic Respiratory Failure - likely secondary to Pulmonary Edema and Influenza A Infection Patient is currently on 4 L oxygen by nasal cannula. elevated d-dimer, no CTA due to renal function. VQ scan reported low probability for PE IV Lasix transitioned to oral Pulmonary seen patient and following Continue to wean O2 as tolerated. Acute on Chronic systolic heart failure/Moderate Aortic Stenosis continue lasix Severe Viral Sepsis likely secondary to Influenza A Infection on presentation, documented to have severe sepsis Blood cultures; no growth to date Completed Tamiflu. Completed antibiotic Chronic Atrial Fibrillation with RVR CHADSVASc 5 Continue oral Eliquis continue home dose sotalol. IDDM2 - accucheks, SSI Coronary Artery Disease s/p PCI - Continue home aspirin, clopidogrel, atorvastatin, sotalol, losartan Hypertension - Continue home dose losartan, hydralazine, amlodipine, sotalol, doxazosin CKD3 -Serum creatinine has been stable -Continue to monitor renal function. -Nephrology is following Fall -No injuries sustained. -PT evaluation. Disposition: Home with home health.
[2022-07-24] MEDS: ATORVASTATIN 40 MG TAB PO SCH (21:06)
--- NOTE | 2022-07-24 22:11 | PN ---
Date of Progress Note: 07/24/2022 Subjective: Seen by bedside, doing well. No orthopnea. No shortness of breath. No nausea, vomitin g, or diarrhea. All other systems reviewed and are negative. Physical Examination: Vital Signs: Reviewed. Head And Neck: Pupils are equal and reactive to light. Intact eye movements. No JVD. No cervical lymphadenopathy. Neck: Supple. Thyroid is not enlarged. Lungs: Clear to auscultation bilaterally. No rhonchi, wheezing, or crackles. No accessory muscle u se. Heart: Regular. No extra sound with aortic systolic ejection murmur. Abdomen: Soft, nontender. Bowel sounds positive. No organomegaly. No masses or hernia. No rigidi ty or rebound. Extremities: No clubbing or cyanosis. Intact pulses. No edema. Neurologic: Alert, awake, and oriented x3. No acute focal deficits appreciated. Investigations: Reviewed. Assessment And Recommendation: 1.Ukxri-mp-tysbpcq systolic heart failure exacerbation. He appears to be euvolemic now, on oral Las ix. Continue current management. 2.Gcbgqcba-wf-khzxcg aortic stenosis and this is being monitored closely with echo. 3.Chronic kidney disease and he is around his baseline. From Cardiology standpoint, patient can be released and follow up as an outpatient. SR/MODL Voice ID: [id number] Report ID: [id number]
[2022-07-25 04:28] LABS: Potassium 3.6 mmol/L (3.5-5.1)
[2022-07-25 05:37] VITALS: BMI 26.4
[2022-07-25] MEDS: SOTALOL HCL 80 MG TAB PO SCH ×2 (06:00→06:36)
[2022-07-25] MEDS: FUROSEMIDE 40 MG TABLET PO SCH (08:21)
[2022-07-25] MEDS: ASPIRIN EC 81 MG TAB PO SCH (08:21)
[2022-07-25] MEDS: CLOPIDOGREL 75 MG TABLET PO SCH (08:21)
[2022-07-25] MEDS: METOLAZONE 2.5 MG TABLET PO SCH (08:21)
[2022-07-25] MEDS: AMLODIPINE 10 MG TAB PO SCH (08:21)
[2022-07-25] MEDS: SPIRONOLACTONE 25 MG TABLET PO SCH (08:22)
[2022-07-25] MEDS: HYDRALAZINE HCL 25 MG TABLET PO SCH (08:22)
[2022-07-25] MEDS: APIXABAN 2.5 MG TABLET PO SCH (08:22)
[2022-07-25] MEDS: LOSARTAN POTASSIUM 50 MG TABLET PO SCH (08:22)
[2022-07-25 08:23] VITALS: BP 145/70
[2022-07-25 08:27] VITALS: O2SAT 90
[2022-07-25 08:29] VITALS: TEMP 98.4
[2022-07-25] MEDS ORDERED: POTASSIUM CL SA 10 MEQ TAB PO ONE ×2 (08:44→09:00)
--- NOTE | 2022-07-25 08:52 | P.PN ---
Date of Service: 07/25/22 Vital Signs Temp Pulse Resp BP Pulse Ox 98.4 F 56 16 145/70 H 90 L 07/25/22 08:00 07/25/22 08:21 07/25/22 08:00 07/25/22 08:21 07/25/22 08:00 Medications Amlodipine Besylate (Amlodipine 10 Mg Tab) 10 mg PO DAILY [facility] Last Admin: 07/25/22 08:21 Dose: 10 mg Apixaban (Apixaban 2.5 Mg Tablet) 2.5 mg PO BID [facility] Last Admin: 07/25/22 08:22 Dose: 2.5 mg Aspirin (Aspirin Ec 81 Mg Tab) 81 mg PO DAILY [facility] Last Admin: 07/25/22 08:21 Dose: 81 mg Atorvastatin Calcium (Atorvastatin 40 Mg Tab) 80 mg PO BEDTIME [facility] Last Admin: 07/24/22 21:06 Dose: 80 mg Benzonatate (Benzonatate 100 Mg Cap) 100 mg PO TID PRN PRN Reason: COUGH Clopidogrel Bisulfate (Clopidogrel 75 Mg Tablet) 75 mg PO DAILY [facility] Last Admin: 07/25/22 08:21 Dose: 75 mg Diphenoxylate HCl/Atropine (Diphenox/Atrop Sulf 1 Tab) 1 tab PO QID PRN PRN Reason: DIARRHEA Last Admin: 07/20/22 11:46 Dose: 1 tab Furosemide (Furosemide 40 Mg Tablet) 40 mg PO BIDL [facility] Last Admin: 07/25/22 08:21 Dose: 40 mg Guaifenesin (Guaifenesin 100 Mg/5 Ml Ucup) 100 mg PO QID PRN PRN Reason: COUGH Last Admin: 07/21/22 21:56 Dose: 100 mg Hydralazine HCl (Hydralazine Hcl 20 Mg/Ml Vial) 10 mg IV Q6HP PRN PRN Reason: SBP>160 MMHG OR DBP>100 MMHG Hydralazine HCl (Hydralazine Hcl 25 Mg Tablet) 100 mg PO TID [facility] Last Admin: 07/25/22 08:22 Dose: 100 mg Losartan Potassium (Losartan Potassium 50 Mg Tablet) 100 mg PO DAILY [facility] Last Admin: 07/25/22 08:22 Dose: 100 mg Metolazone (Metolazone 2.5 Mg Tablet) 2.5 mg PO DAILY [facility] Last Admin: 07/25/22 08:21 Dose: 2.5 mg Potassium Chloride (Potassium Cl Sa 10 Meq Tab) 20 meq PO 1X ONE Stop: 07/25/22 09:01 Last Admin: 07/25/22 08:22 Dose: 20 meq Sodium Chloride (Flush Normal Saline 10 Ml) 10 ml IV BID [facility] Last Admin: 07/25/22 08:22 Dose: 10 ml Sotalol HCl (Sotalol Hcl 80 Mg Tab) 120 mg PO BID 6AM 6PM [facility] Last Admin: 07/25/22 06:00 Dose: Not Given Spironolactone (Spironolactone 25 Mg Tablet) 25 mg PO DAILY [facility] Last Admin: 07/25/22 08:22 Dose: 25 mg Microbiology Results 07/17/22 19:30 Blood - Blood Aerobic Blood Culture - Final No growth in 5 days. 07/17/22 19:30 Blood - Blood Anaerobic Blood Culture - Final 07/17/22 18:21 Blood - Blood Aerobic Blood Culture - Final No growth in 5 days. 07/17/22 18:21 Blood - Blood Anaerobic Blood Culture - Final No growth in 5 days. 07/17/22 18:19 Nasopharnyx Influenza Type A Antigen Screen - Final 07/17/22 18:19 Nasopharnyx Influenza Type B Antigen Screen - Final Assessment/ Plan: Nephrology Feeling better and wants to go home No dyspnea at rest but on Oxygen No chest pain No acute events overnight Vitals, medications, blood work and imaging reviewed in the chart. NAD. NCAT. MMM. Neck supple. CTA. RRR. Abd ND. No C/C/E. No rash. AAO. Normal speech. Stage I KAITLIN due to diuresis, improved CKD IIIb -No NSAIDs Hyponatremia, improving -Maintain nutrition -Continue Lasix Hypokalemia -Replete as ordered -Continue spironolactone HTN with CKD/ CHF -Continue Losartan & Amlodipine -Continue Hydralazine Systolic CHF, A/C Aortic stenosis -Continue Lasix and Spironolactone -Follow up with cardiology -Daily weight Hypoalbuminemia -Encourage nutrition -Consider protein supplementation Case reviewed with Dr. Zhang
--- NOTE | 2022-07-25 19:00 | P.DS ---
Admission Date: 07/17/22 Discharge Date: 07/25/22 Disposition: DC HOME/HOME HEALTH CARE Discharge Condition: FAIR Reason for Admission: Respiratory failure Brief History of Present Illness: Mr. Julianna Kearns is a 72 year old male who has a past medical history of coronary artery disease s/p PCI, chronic atrial fibrillation not on anticoagulation, chronic congestive heart failure, type II diabetes mellitus, and hypertension who presented to the [facility] Emergency Department for shortness of breath. He reports he was experiencing progressively worsening shortness of breath. He denied any associated chest pain or palpitations. He denied any recent changes in his medications. Upon presentation, his vital signs were notable for a respiratory rate of 28 breaths/min and an SpO2 of 64% on room air. His laboratory studies were notable for a creatinine of 1.83, a glucose of 219, and an NT-Pro BNP of 10,716. Blood cultures x 2 were obtained. Chest x-ray revealed multifocal interstitial airspace opacities most likely representing edema rather than pneumonia. Patient tested positive for influenza A. He was given IV Lasix and admitted for further management. Hospital Course: Patient admitted to the medical floor and the following medical problems were addressed: Acute Hypoxic Respiratory Failure - likely secondary to Pulmonary Edema and Influenza A Infection He was initially requiring BiPAP therapy and later transitioned to 10 L oxygen by nasal cannula. Patient was treated with IV Lasix for the pulmonary edema, Tamiflu for influenza A. He clinically improved with treatment and oxygen weaned down to 4 L. elevated d-dimer, CTA thorax not done due to impaired renal function. VQ scan reported low probability for PE IV Lasix was transitioned to oral Lasix progressive improvement in his edema Pulmonary saw patient and assisted with management Acute on Chronic systolic heart failure/Moderate Aortic Stenosis Treated with Lasix Severe Viral Sepsis likely secondary to Influenza A Infection Patient documented to have severe sepsis on presentation. Blood cultures; no growth to date He completed Tamiflu. He also completed antibiotic therapy for possible pneumonia. Chronic Atrial Fibrillation with RVR CHADSVASc 5 Patient started on oral Ofacvyn-kqb-nkvo given his impaired renal function continued home dose sotalol. IDDM2 - accucheks, SSI Coronary Artery Disease s/p PCI - Continued home aspirin, clopidogrel, atorvastatin, sotalol, losartan Hypertension - Continued home dose losartan, hydralazine, amlodipine, sotalol, doxazosin CKD3 -Serum creatinine was stable with diuresis -Nephrology saw patient and assisted with management. Fall -Patient had a fall, slid from the edge of the bed. -No injuries sustained. -PT evaluated patient, patient is needing assistance with ambulation. -Home health for PT. Vital Signs/Physical Exam: Temp Pulse Resp BP Pulse Ox 98.4 F 56 16 145/70 H 90 L 07/25/22 08:00 07/25/22 08:21 07/25/22 08:00 07/25/22 08:21 07/25/22 08:00 General: Alert, In no apparent distress, Oriented x3 HEENT: Mucous membr. moist/pink Neck: JVD not distended Respiratory: Clear to auscultation bilaterally, Normal air movement Cardiovascular: Edema (Trace pedal edema), Irregular heart rate/rhythm Gastrointestinal: Soft and benign, Non-distended, No tenderness Neurological: Other (No focal motor deficit) Laboratory Data at Discharge: WBC 7.00 K/uL (4.3-10.9) 07/21/22 05:27 Hgb 13.4 g/dL (13.6-17.9) L 07/21/22 05:27 Hct 42.1 % (39.6-49.0) 07/21/22 05:27 Plt Count 337 K/uL (152-406) 07/21/22 05:27 PT 13.2 SECONDS (9.5-12.5) H 07/17/22 18:21 INR 1.20 07/17/22 18:21 APTT 37.2 SECONDS (24.3-36.9) H 07/17/22 18:21 Sodium 134 mmol/L (136-145) L 07/25/22 03:36 Potassium 3.6 mmol/L (3.5-5.1) 07/25/22 03:36 BUN 29 mg/dL (7-18) H 07/25/22 03:36 Creatinine 1.65 mg/dL (0.55-1.3) H 07/25/22 03:36 Glucose 196 mg/dL (74-106) H 07/25/22 03:36 Phosphorus 2.9 mg/dL (2.5-4.9) 07/24/22 03:07 Magnesium 1.8 mg/dL (1.8-2.4) 07/23/22 03:09 Total Bilirubin 1.3 mg/dL (0.2-1.0) H 07/20/22 03:36 AST 9 U/L (15-37) L 07/20/22 03:36 ALT 12 U/L (12-78) 07/20/22 03:36 Alkaline Phosphatase 54 U/L (45-117) 07/20/22 03:36 Home Medications: Amlodipine [Norvasc*] 10 mg PO DAILY #30 tab 06/10/22 Atorvastatin Calcium [Lipitor] 80 mg PO BEDTIME #30 tab 06/10/22 Clopidogrel Bisulfate [Plavix*] 75 mg PO DAILY #30 tab 06/10/22 Empagliflozin [Jardiance] 25 mg PO DAILY 30 Days #30 tablet 06/10/22 Hydralazine [Apresoline*] 25 mg PO TID #90 tab 06/10/22 Losartan Potassium [Cozaar*] 100 mg PO DAILY #60 tablet 06/10/22 Sotalol HCl [Betapace*] 120 mg PO BID 6AM 6PM #60 tab 06/10/22 Ferrous Sulfate [Iron] 325 mg PO DAILY 07/17/22 Pantoprazole Sodium [Protonix] 40 mg PO DAILY 07/17/22 Apixaban [Eliquis *] 2.5 mg PO BID #60 tab 07/24/22 Benzonatate [Tessalon Perle*] 100 mg PO TID PRN #30 cap 07/24/22 Furosemide [Lasix*] 40 mg PO BIDL 30 Days #60 tab 07/24/22 Insulin Glargine,Hum.rec.anlog [Lantus Solostar] 25 unit SQ DAILY #15 ml 07/24/22 Spironolactone [Aldactone*] 25 mg PO DAILY #30 tab 07/24/22 guaiFENesin [Robitussin 100MG/5ML*] 5 ml PO QID PRN #237 ml 07/24/22 metOLazone [Zaroxolyn*] 2.5 mg PO DAILY #30 tab 07/24/22 New Medications: Spironolactone [Aldactone*] 25 mg PO DAILY #30 tab Apixaban [Eliquis *] 2.5 mg PO BID #60 tab Insulin Glargine,Hum.rec.anlog [Lantus Solostar] 25 unit SQ DAILY #15 ml Furosemide [Lasix*] 40 mg PO BIDL 30 Days #60 tab guaiFENesin [Robitussin 100MG/5ML*] 5 ml PO QID PRN #237 ml PRN Reason: Cough Benzonatate [Tessalon Perle*] 100 mg PO TID PRN #30 cap PRN Reason: Cough metOLazone [Zaroxolyn*] 2.5 mg PO DAILY #30 tab Diet: ADA Activity: Fall precautions Followup: Michael Christine DO [ACTIVE - CAN ADMIT] - 1-2 Weeks (Call for appointment.) Bassam Donis MD [Primary Care Provider] - 1-2 Weeks (Call for appointment. ) Chad Alvarez MD [ACTIVE - CAN ADMIT] - 1 Week (Call for appointment.) Time spent managing pt's care (in minutes): 38
== END 2022-07-25 11:34 | disposition home health service (06) | DRG 871 ==
LOC: ER 17:48 → ERHOLD 19:41 → 4TH 20:12
PROVIDERS: ADMIT Internal Medicine; ATTEND Internal Medicine
PROC: 5A09557 Assistance with Respiratory Ventilation, Greater than 96 Consecutive Hours, Continuous Positive Airway Pressure (ICD-10-PCS; principal; 2022-07-18)
DX: A41.89 Other specified sepsis (principal); I50.23 Acute on chronic systolic (congestive) heart failure; J96.01 Acute respiratory failure with hypoxia; J18.9 Pneumonia, unspecified organism; I48.20 Chronic atrial fibrillation, unspecified; I13.0 Hypertensive heart and chronic kidney disease with heart failure and stage 1 through stage 4 chronic kidney disease, or unspecified chronic kidney disease; N17.9 Acute kidney failure, unspecified; E87.1 Hypo-osmolality and hyponatremia; J09.X2 Influenza due to identified novel influenza A virus with other respiratory manifestations; N18.32 Chronic kidney disease, stage 3b; E11.22 Type 2 diabetes mellitus with diabetic chronic kidney disease; E11.65 Type 2 diabetes mellitus with hyperglycemia; I35.0 Nonrheumatic aortic (valve) stenosis; E88.09 Other disorders of plasma-protein metabolism, not elsewhere classified; E87.6 Hypokalemia; I25.10 Atherosclerotic heart disease of native coronary artery without angina pectoris; I25.2 Old myocardial infarction; R65.20 Severe sepsis without septic shock; Z88.0 Allergy status to penicillin; Z79.4 Long term (current) use of insulin; Z79.02 Long term (current) use of antithrombotics/antiplatelets; Z98.61 Coronary angioplasty status; Z79.84 Long term (current) use of oral hypoglycemic drugs; Z79.82 Long term (current) use of aspirin; Z87.891 Personal history of nicotine dependence; Z79.899 Other long term (current) drug therapy; Z20.822 Contact with and (suspected) exposure to COVID-19
CPT/HCPCS: 36415; 51702; 71045; 78582; 80048; 80053; 80061; 80069; 80076; 81001; 82043; 82570; 82607; 82746; 82805; 83036; 83540; 83605; 83735; 83880; 84100; 84132; 84145; 84153; 84154; 84300; 84439; 84443; 84466; 84480; 84484; 85025; 85379; 85610; 85730; 87040; 87086; 87088; 87804; 93005; 94660; 94760; 96374; 97161; 99285; A9540; J0360; J1650; J1940; U0003

== ENCOUNTER 2022-11-18 17:13 | Emergency (ER) | payer OTHER ==
--- OUTSIDE RECORDS SUMMARY | 2022-11-18 17:17 | XMS REPORT | Continuity of Care Document ---
:1950 Author Organization [facility] t Address [facility] [place] [address] Care Team Providers Name Role Phone Bassam Donis Attending Clinician Unavailable Jose Reinoso Attending Clinician Unavailable Chad Alvarez Attending Clinician Unavailable Physician, No Primary or Family Admitting Clinician Unavaila ble Payers Payer Name Policy Type Policy Number Effective Date Expiration Date S ource UNITED [id number] Common HEALTHCARE [facility] Problems Condition Condition Condition Status Onset Resolution Last Treating Co mments Source Name Details Category Date Date Treatment Clinician Date [id number] 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 - [facility] n) of [facility] [id number] Prostate Problem Active Com mon nodule [facility] [id number] Urge Problem Active Common incontinen Spirit ce [facility] [id number] Lower Problem Active Common urinary [facility] tract - [facility] symptoms [facility] Allergies, Adverse Reactions, Alerts Allergy Allergy Status Severity Reaction(s) Onset Inactive Treating Comm ents Source Name Type Date Date Clinician Penicill DA Active SV HIVES [facility] ins 05-06 Clear 00:00: Gonsales 00 [facility] Social History Social Habit Start Date Stop Date Quantity Comments Source Sex Assigned At Com mon [facility] History of Tobacco Use Co mmon [facility] Medications Ordered Filled Start Stop Current Ordering [...] height 2020-12-03 11:15:00 70 [in_i] Common [facility] weight 2020-12-03 11:15:00 197 [lb_av] [facility] temperature 2020-12-03 11:15:00 97.6 [degF] Common [facility] bmi 2020-12-03 11:15:00 28.26 kg/m2 [facility] oximetry 2020-12-03 11:15:00 97 % [facility] blood pressure 2020-12-03 11:15:00 139 mm[Hg] Common [facility] - systolic [facility] blood pressure 2020-12-03 11:15:00 64 mm[Hg] Common [facility] - diastolic [facility] height 2020-08-24 14:00:00 70 [in_i] Common [facility] weight 2020-08-24 14:00:00 199.6 [lb_av] [facility] temperature 2020-08-24 14:00:00 98.4 [degF] [facility] bmi 2020-08-24 14:00:00 28.64 kg/m2 [facility] oximetry 2020-08-24 14:00:00 96 % [facility] blood pressure 2020-08-24 14:00:00 197 mm[Hg] Common [facility] - systolic [facility] blood pressure 2020-08-24 14:00:00 86 mm[Hg] Common [facility] - diastolic [facility] Procedures This patient has no known procedures. Encounters Start End Encounter Admission Attending Care Care Encounter Source Date/Time Date/Time Type Type Clinicians Facility Department ID 2021-10-27 Outpatient Donis, STLMLC [facility] [id number] Common 12:15:25 Bassam Fischer [facility] 2021-10-27 Outpatient STLMLC [facility] [id number] Common 12:07:45 [id number] Spirit - [facility] 2022-05-31 2022-05-31 Outpatient SPEEDY Dial [facility] [id number] [facility] 08:52:00 08:52:00 Olanike 47 [facility] 2022-05-11 2022-05-11 Outpatient SPEEDY Rae [facility] [id number] [facility] 10:11:00 10:11:00 Chad 67 [facility] 2022-05-11 2022-05-11 Outpatient SPEEDY Rae [facility] [id number] [facility] 10:11:00 10:11:00 Chad [id number] [facility] 2020-12-03 2020-12-03 OFFICE [facility] [id number] Co mmon 00:00:00 00:00:00 VISIT [facility] PT - CHI LEVEL 2 [facility] 2020-08-24 2020-08-24 OFFICE [facility] [id number] Co mmon 00:00:00 00:00:00 VISIT NEW [facility] it PT LEVEL 4 - [facility] Results Test Description Test Time Test Comments [...] y tests. - CTA HEART W CN ART/[id number] 00:00:00 [facility] [place] GONSALESName: ALBERT SANCHEZ : 1950 Sex: M Name: ALBERT SANCHEZ [facility] Dagmar Gonsales : 1950 Age/S: 72 / M [address] [place] [address] Blvd Unit #: [id number] Loc: [place] [address] Phys: Jose Reinoso RATOPRINTER Acct: [id number] Dis Date: Status: REG CLI PHONE #: [phone] Exam Date: 05/31/2022 1012 FAX #: [phone] Reason: EXAMS: CPT CODE: [id number] HEART W CN ART/GRAFTS 48253 PROCEDURE INFORMATION: Exam: CTA Heart And Coronary [...] 1 Signed Report (CONTINUED) Name: ALBERT SANCHEZ [facility] : 1950 Age/S: 72 / M [address] [place] [address] Blvd Unit #: [id number] Loc: [place] [address] Phys: Jose Reinoso [facility] Acct: [id number] Dis Date: Status: REG CLI PHONE #: [phone] Exam Date: 05/31/2022 1012 FAX #: [phone] Reason: EXAMS: CPT CODE: [id number] CTA HEART W CN ART/GRAFTS 81031 (Continued) mitral annular calcification. PERICARDIUM: No evidence [...] 2 Signed Report (CONTINUED) Name: ALBERT SANCHEZ [facility] : 1950 Age/S: 72 / M [address] [place] [address] Unit #: [id number] Loc: [place] [address] Phys: Jose Reinoso [facility] Acct: [id number] Dis Date: Status: REG CLI PHONE #: [phone] Exam Date: 05/31/2022 1012 FAX #: [phone]: EXAMS: CPT CODE: [id number] CTA HEART W CN ART/GRAFTS 01107 (Continued) Small uncomplicated fat containing umbilical hernia. [...] CTA ABD PEL W CONT 2022-05-31 00:00:00 [facility] : 1950 Sex: M Name: ALBERT SANCHEZ [facility] : 1950 Age/S: 72 / M [address] [place] [address] Blvd Unit #: [id number] Loc: [place] [address] Phys: Jose Reinoso Acct: [id number] Dis Date: Status: REG CLI PHONE #: [phone] Exam Date: 05/31/2022 1012 FAX #: [phone] Reason: 135.0, SEVERE AORTIC STENOSIS. EXAMS: CPT CODE: [id number] CTA ABD PEL W CONT 42049 PROCEDURE INFORMATION: Exam: CTA Heart And Coronary [...] 1 Signed Report (CONTINUED) Name: ALBERT SANCHEZ [facility] [place] : 1950 Age/S: 72 / M [address] [place] [address] Unit #: [id number] Loc: [facility] MARCEL [address] Phys: Jose Reinoso [facility] Acct: [id number] Dis Date: Status: MITZY PRUITT #: [phone] Exam Date: 05/31/2022 1012 FAX #: [phone] Reason: 135.0, SEVERE AORTIC STENOSIS. EXAMS: CPT CODE: [id number] CTA ABD PEL W CONT 08771 (Continued) mitral annular calcification. PERICARDIUM: No evidence [...] total calcium score of the aortic valve [id number]. Aortic annulus 26.6 x 21 mm, area [...] 2 Signed Report (CONTINUED) Name: ALBERT SANCHEZ [facility] Dagmar Gonsales : 1950 Age/S: 72 / M [address] [place] [address] Blvd Unit #: [id number] Loc: [place] [address] Phys: Jose Reinoso Acct: [id number] Dis Date: Status: REG CLI PHONE #: [phone] Exam Date: 05/31/2022 1012 FAX #: [phone] Reason: 135.0, SEVERE AORTIC STENOSIS. EXAMS: CPT CODE: [id number] CTA ABD PEL W CONT 91596 (Continued) Small uncomplicated fat containing umbilical hernia. [...] Clinical correlation and correlation with urinalysis recommended. [id number] Reported and signed by: Wood Duran M.D. CC: Jose Reinoso Technologist:RT Tripp(R)(CT) CTDI: DLP: Trnscb Date/Time: 05/31/2022 (172) [email or web address] Orig Print D/T: S: 05/31/2022(7447) PAGE 3 Signed Report- CT ANGIO [id number] 00:00:00[facility] DRUName: ALBERT SANCHEZ : 1950 Sex: M Name: ALBERT SANCHEZ [facility] Dagmar Gonsales : 1950 Age/S: 72 / M [address] [place] [address] Blvd Unit #: [id number] Loc: [place] [address] Phys: Jose Reinoso RATOPRINTER Acct: [id number] Dis Date: Status: REG CLI PHONE #: [phone] Exam Date: 05/31/2022 1012 FAX #: [phone] Reason: 135.0 , SEVERE AORTIC STENOSIS. EXAMS: CPT CODE: [id number] CT ANGIO CHEST 27449 PROCEDURE INFORMATION: Exam: CTA Heart And Coronary [...] 1 Signed Report (CONTINUED) Name: ALBERT SANCHEZ [facility] : 1950 Age/S: 72 / M [address] [place] [address] Unit #: [id number] Loc: [place] [address] Phys: Jose Reinoso [facility] Acct: [id number] Dis Date: Status: REG CLI PHONE#: [phone] Exam Date: 05/31/2022 1012 FAX #: [phone] Reason: 135.0 , SEVERE AORTIC STENOSIS. EXAMS: CPT CODE: [id number] CT ANGIO CHEST 42431 (Continued) mitral annular calcification. PERICARDIUM: No evidence [...] 2 Signed Report (CONTINUED) Name: ALBERT SANCHEZ [facility] : 1950 Age/S: 72 / M [address] [place] [address] Blvd Unit #: [id number] Loc: Dennis [id number] Phys: Jose Reinoso [facility] Acct: [id number] Dis Date: Status: REG CLI PHONE #: [phone] Exam Date: 05/31/2022 1012 FAX #: [phone] Reason: 135.0 , SEVERE AORTIC STENOSIS. EXAMS: CPT CODE: [id number] CT ANGIO CHEST 03032 (Continued) Small uncomplicated fat containing umbilical hernia. 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 CBC W/AUTO [id number] 16:09:00 Test Item Value Reference Range Interpretation [...]
[2022-11-18] MEDS ORDERED: HYDRALAZINE HCL 20 MG/ML VIAL ONE (17:42)
[2022-11-18] MEDS ORDERED: HYDRALAZINE HCL 10 MG TABLET ONE (18:15)
--- NOTE | 2022-11-18 19:16 | ER ---
Nurse's Notes [facility] Name: Julianna Kearns Age: 72 yrs Sex: Male : 1950 Arrival Date: 11/18/2022 Time: 17:14 Bed 19 Private MD: Diagnosis: Essential (primary) hypertension Presentation: 11/18 17:16 Chief complaint: EMS states: patient is coming from [place], he was seen there and his blood kr3 pressure was high. Our most recent BP 227/110. The patient has no complaints at this time. Patient is prescribed amlodipine, hydralazine and losartan but was only taking hydralazine due to confusion of what he was supposed to take. Coronavirus screen: Vaccine status: Patient reports receiving the 2nd dose of the covid vaccine. Ebola Screen: Patient denies travel to an Ebola-affected area in the 21 days before illness onset. Initial Sepsis Screen: Does the patient meet any 2 criteria? No. Patient's initial sepsis screen is negative. Does the patient have a suspected source of infection? No. Patient's initial sepsis screen is negative. Risk Assessment: Do you want to hurt yourself or someone else? Patient reports no desire to harm self or others. Onset of symptoms was November 18, 2022. 17:16 Method Of Arrival: EMS kr3 17:16 Acuity: VERONICA 3 kr3 Triage Assessment: 17:23 General: Appears in no apparent distress. comfortable, Behavior is calm, cooperative, kr3 appropriate for age. Pain: Denies pain. Historical: - Allergies: 17:22 PENICILLINS; kr3 - PMHx: 17:22 Atrial Fib; Diabetes - NIDDM; Hypercholesterolemia; Hypertension; kr3 - Social history:: Smoking status: Patient/guardian denies using tobacco, the patient reports quitting approximately 20 years ago. Screenin:30 [facility] ED Fall Risk Assessment (Adult) History of falling in the last 3 months, kr3 including since admission No falls in past 3 months (0 pts) Confusion or Disorientation No (0 pts) Intoxicated or Sedated No (0 pts) Impaired Gait No (0 pts) Mobility Assist Device Used No (0 pt) Altered Elimination No (0 pt) Score/Fall Risk Level 0 - 2 = Low Risk Oriented to surroundings, Maintained a safe environment, Educated pt \T\ family on fall prevention, incl call for assistance when getting out of bed, Assessed \T\ reinforced patient's understanding of fall precautions, Hourly rounding (assess needs \T\ fall precautionary measures) done. 19:30 Abuse screen: Denies threats or abuse. Nutritional screening: No deficits noted. kr3 Tuberculosis screening: No symptoms or risk factors identified. Assessment: 18:15 Reassessment: Patient appears in no apparent distress at this time. Patient and/or kr3 family updated on plan of care and expected duration. Pain level reassessed. Patient is alert, oriented x 3, equal unlabored respirations, skin warm/dry/pink. 19:15 Reassessment: Patient appears in no apparent distress at this time. Patient and/or kr3 family updated on plan of care and expected duration. Pain level reassessed. Patient is alert, oriented x 3, equal unlabored respirations, skin warm/dry/pink. Vital Signs: 17:16 BP 204 / 123; Pulse 94; Resp 22; Temp 97.7(TE); Pulse Ox 94% on R/A; Weight 97.52 kg; kr3 Height 6 ft. 0 in. (182.88 cm); Pain 0/10; 18:15 BP 222 / 116; Pulse 92; Resp 22; Pulse Ox 94% on R/A; kr3 19:27 BP 184 / 112; Pulse 92; Resp 20; Pulse Ox 95% on R/A; kr3 17:16 Body Mass Index 29.16 (97.52 kg, 182.88 cm) kr3 ED Course: 17:14 Patient arrived in ED. kb 17:14 [facility] East[facility]C [facility]. kb 17:14 Shakir Crouch MD is Attending Physician. kb 17:15 Emma Tate, ERICA is Primary Nurse. kr3 17:22 Triage completed. kr3 17:24 Arm band placed on right wrist. Patient placed in an exam room, on a stretcher. kr3 17:30 Bed in low position. Call light in reach. Side rails up X 1. kr3 18:25 Missed attempt(s): 22 gauge in left antecubital area. kr3 18:25 Missed attempt(s): 22 gauge in right antecubital area. kr3 19:30 Patient did not have IV access during this emergency room visit. kr3 21:31 No provider procedures requiring assistance completed. kr3 Administered Medications: 18:05 Drug: hydrALAZINE 20 mg Route: PO; kr3 21:32 Follow up: Response: No adverse reaction kr3 18:09 Not Given (Other Intervention Used): hydrALAZINE 10 mg IVP once kb Medication: 21:32 VIS not applicable for this client. kr3 Outcome: 19:15 Discharge ordered by . kb 19:30 Discharged to home via wheelchair. kr3 19:30 Discharge instructions given to patient, Instructed on discharge instructions, follow up and referral plans. medication usage, Demonstrated understanding of instructions, follow-up care, medications, Prescriptions given X 2. 19:33 Patient left the ED. kr3 21:31 Condition: stable kr3 Signatures: Malika Easton, PROCESS MECHANIC-C PROCESS MECHANIC-Emma La, RN RN kr3
--- NOTE | 2022-11-18 19:16 | EDPHYS ---
Physician Documentation [facility] Name: Julianna Kearns Age: 72 yrs Sex: Male : 1950 Arrival Date: 11/18/2022 Time: 17:14 Bed 19 Private MD: ED Physician Shakir Crouch HPI: 11/18 18:11 This 72 yrs old Black Male presents to ER via EMS with complaints of hypertension. kb 18:11 The patient has elevated blood pressure and discovered this at a physician's office, kb and sent to the emergency department for evaluation. Onset: The symptoms/episode began/occurred today. Modifying factors: The symptoms are aggravated by discontinuation of meds, The symptoms are alleviated by prescription meds. Associated signs and symptoms: The patient has no apparent associated signs or symptoms, Pertinent negatives: chest pain, dizziness, dyspnea, headache, lightheadedness, nausea, visual changes, vomiting, weakness. Severity of symptoms: At its worst the blood pressure was 214 mm Hg, in the emergency department the blood pressure is unchanged. The patient has experienced similar episodes in the past, chronically. The patient has been recently seen by a physician:. Historical: - Allergies: 17:22 PENICILLINS; kr3 - PMHx: 17:22 Atrial Fib; Diabetes - NIDDM; Hypercholesterolemia; Hypertension; kr3 - Social history:: Smoking status: Patient/guardian denies using tobacco, the patient reports quitting approximately 20 years ago. ROS: 18:01 Constitutional: Negative for fever, chills, and weight loss. kb 18:01 All other systems are negative. Exam: 18:01 Constitutional: This is a well developed, well nourished patient who is awake, alert, kb and in no acute distress. Head/Face: Normocephalic, atraumatic. ENT: Moist Mucous membranes Cardiovascular: Regular rate and rhythm with a normal S1 and S2. No gallops, murmurs, or rubs. No pulse deficits. Respiratory: Respirations even and unlabored. No increased work of breathing. Talking in full sentences Abdomen/GI: Soft, non-tender. No distention Skin: Warm, dry with normal turgor. Normal color. MS/ Extremity: Pulses equal, no cyanosis. Neurovascular intact. Full, normal range of motion. Neuro: Awake and alert, GCS 15, oriented to person, place, time, and situation. Moves all extremities. Normal gait. Psych: Awake, alert, with orientation to person, place and time. Behavior, mood, and affect are within normal limits. 19:16 ECG was reviewed by the Attending Physician. roni Vital Signs: 17:16 BP 204 / 123; Pulse 94; Resp 22; Temp 97.7(TE); Pulse Ox 94% on R/A; Weight 97.52 kg; kr3 Height 6 ft. 0 in. (182.88 cm); Pain 0/10; 18:15 BP 222 / 116; Pulse 92; Resp 22; Pulse Ox 94% on R/A; kr3 19:27 BP 184 / 112; Pulse 92; Resp 20; Pulse Ox 95% on R/A; kr3 17:16 Body Mass Index 29.16 (97.52 kg, 182.88 cm) kr3 MDM: 17:14 Patient medically screened. kb 18:01 Differential diagnosis: hypertensive crisis, Uncontrolled hypertension. Data reviewed: kb vital signs, nurses notes. Consideration of Admission/Observation Escalation of care including admission/observation considered. Historians other than the Patient: EMS: [facility]. Care significantly affected by the following chronic conditions: Diabetes, Hypertension, Chronic Obstructive Pulmonary Disease. ED course: Patient is a 72-year-old male with a history of A-fib, diabetes, hypertension, COPD, high cholesterol who presents with hypertension that was discovered at the [facility]. Patient states he went to the [facility] to have some forms filled out and they checked his blood pressure and found it to be high. Patient denies any symptoms including chest pain, headache, dizziness, visual disturbances. Patient states he feels just fine. With Hx EMS reports oxygen saturation of 88% on room air upon their arrival to the [facility]. Patient denies any shortness of breath and reports normal oxygen saturation to be around 94%. Oxygen saturation here is 92 to 94% on room air, respirations even and unlabored, lungs clear throughout. Patient reports he takes hydralazine 20 mg 3 times a day as prescribed but has been out of his Norvasc and losartan for some time.. 18:09 ED course: IV attempted x2 by nursing staff that were unsuccessful. Patient would like to try his normal oral dose of hydralazine before being stuck again.. 19:13 Counseling: I had a detailed discussion with the patient and/or guardian regarding: the kb historical points, exam findings, and any diagnostic results supporting the discharge/admit diagnosis, the need for outpatient follow up, a family practitioner, to return to the emergency department if symptoms worsen or persist or if there are any questions or concerns that arise at home. ED course: Discussed case with Dr. Crouch who agrees with giving patient his oral antihypertensives and refilling the medications the patient is out of. Patient has asymptomatic hypertension and can be discharged home.. 11/18 17:17 Order name: EKG; Complete Time: 17:18 kb 11/18 17:17 Order name: EKG - Nurse/Tech; Complete Time: 18:25 kb EC:16 Rate is 92 beats/min. Rhythm is regular. QRS [place] is Normal. OR interval is normal at kb 162 msec. QRS interval is normal at 96 msec. QT interval is prolonged at 516 msec. Administered Medications: 18:05 Drug: hydrALAZINE 20 mg Route: PO; kr3 21:32 Follow up: Response: No adverse reaction kr3 18:09 Not Given (Other Intervention Used): hydrALAZINE 10 mg IVP once kb Disposition: 11/19 14:33 Co-signature as Attending Physician, Shkair Crouch MD I reviewed the patient's care rt provided by the Advanced Practice Provider and agree with the diagnosis and treatment plan. Disposition Summary: 11/18/22 19:15 Discharge Ordered Location: Home kb Condition: Stable kb Diagnosis - Essential (primary) hypertension kb Followup: kb - With: Emergency Department - When: As needed - Reason: Worsening of condition Followup: kb - With: Private Physician - When: 2 - 3 days - Reason: Recheck today's complaints, Continuance of care, Re-evaluation by your physician Discharge Instructions: - Discharge Summary Sheet kb - Hypertension, Adult, [id number] kb - Managing Your Hypertension kb Forms: - Medication Reconciliation Form kb - Thank You Letter kb - Antibiotic Education kb - Prescription Opioid Use kb Prescriptions: - losartan 100 mg Oral tablet - take 1 tablet by ORAL route once daily; 30 tablet; Refills: 0, Product kb Selection Permitted - Norvasc 10 mg Oral Tablet - take 1 tablet by ORAL route once daily; 30 tablet; Refills: 0, Product kb Selection Permitted Signatures: Dispatcher [employer] Malika Smith FNP-C FNP-Emma La, RN RN kr3 Shakir Crouch MD MD rt Corrections: (The following items were deleted from the chart) 11/18 18:25 17:17 IV Saline Lock ordered. kb kr3
[2022-11-18 19:38] VITALS: TEMP 97.7
[2022-11-18 19:41] VITALS: BP 184/112; O2SAT 95
--- NOTE | 2022-11-21 12:44 | EKG ---
Test Date: 2022-11-18 Test Time: 18:19:55 Grinding Supervisor: LENORA MEASUREMENT RESULTS: Intervals: Rate: 92 RI: 162 QRSD: 96 QT: 418 QTc: 516 [place]: P: 75 RI: 162 QRS: -52 T: 96 INTERPRETIVE STATEMENTS: Normal sinus rhythm Possible Left atrial enlargement Left anterior fascicular block Nonspecific ST and T wave abnormality Prolonged QT Abnormal ECG Compared to ECG 11/18/2022 18:19:17 Ventricular premature complex(es) no longer present Possible ischemia no longer present ST (T wave) deviation still present Electronically Signed On 11-21-22 12:38:10 TEXTILE STYLIST by Chad Alvarez
--- NOTE | 2022-11-21 12:45 | EKG ---
Test Date: 2022-11-18 Test Time: 18:19:17 Mobile Qa Tester: LENORA MEASUREMENT RESULTS: Intervals: Rate: 92 MT: 156 QRSD: 98 QT: 420 QTc: 519 [place]: P: 74 MT: 156 QRS: -52 T: 121 INTERPRETIVE STATEMENTS: Sinus rhythm with occasional premature ventricular complexes Possible Left atrial enlargement Left anterior fascicular block ST & T wave abnormality, consider lateral ischemia Prolonged QT Abnormal ECG Compared to ECG 07/17/2022 18:29:28 Left anterior fascicular block now present ST (T wave) deviation now present Possible ischemia now present Prolonged QT interval now present Fusion complex(es) no longer present Right-axis deviation no longer present Electronically Signed On 11-21-22 12:38:13 SERVICE LINE LAYER by Chad Alvarez
== END 2022-11-18 19:33 | disposition home or self-care (01) ==
LOC: ER 17:13
DX: I10 Essential (primary) hypertension (principal); E11.9 Type 2 diabetes mellitus without complications; I48.91 Unspecified atrial fibrillation; Z88.0 Allergy status to penicillin
CPT/HCPCS: 99283; J0360; 93005

== ENCOUNTER 2022-11-28 11:22 | Emergency (ER) | payer OTHER ==
--- OUTSIDE RECORDS SUMMARY | 2022-11-28 11:26 | XMS REPORT | Continuity of Care Document ---
:1950 Author Organization [facility] t Address [address] [facility] [address] [place] [address] Care Team Providers Name Role Phone Bassam Donis Attending Clinician Unavailable Jose Reinoso Attending Clinician Unavailable Chad Alvarez Attending Clinician Unavailable Physician, No Primary or Family Admitting Clinician Unavaila ble Payers Payer Name Policy Type Policy Number Effective Date Expiration Date S ource [place] [id number] Common HEALTHCARE [facility] Problems Condition Condition Condition Status Onset Resolution Last Treating Co mments Source Name Details Category Date Date Treatment Clinician Date [id number] 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 - [facility] n) of [facility] [id number] Prostate Problem Active Com mon nodule [facility] [id number] Urge Problem Active Common incontinen Spirit ce [facility] [id number] Lower Problem Active Common urinary [facility] Allergies, Adverse Reactions, Alerts Allergy Allergy Status Severity Reaction(s) Onset Inactive Treating Comm ents Source Name Type Date Date Clinician Penicill DA Active SV HIVES [facility] ins 05-06 Clear 00:00: Gonsales [address] [facility] Social History Social Habit Start Date Stop Date Quantity Comments Source Sex Assigned At Com mon [facility] History of Tobacco Use Co mmon [facility] Medications Ordered Filled Start Stop Current Ordering Indication Dosage Frequency Signature Comments Components Source Medication Medication Date Date Medication? Clinician (SIG) Name Name Jacqueline OLIVEROSIcare 5 2019-10- No 1{table QD VESIcare 5 [...] Source height 2020-12-03 11:15:00 70 [in_i] Common [facility] weight 2020-12-03 11:15:00 197 [lb_av] [facility] temperature 2020-12-03 11:15:00 97.6 [degF] [facility] bmi 2020-12-03 11:15:00 28.26 kg/m2 [facility] oximetry 2020-12-03 11:15:00 97 % [facility] blood pressure 2020-12-03 11:15:00 139 mm[Hg] Common [facility] - systolic [facility] blood pressure 2020-12-03 11:15:00 64 mm[Hg] Common [facility] - diastolic [facility] height 2020-08-24 14:00:00 70 [in_i] Common [facility] weight 2020-08-24 14:00:00 199.6 [lb_av] [facility] temperature 2020-08-24 14:00:00 98.4 [degF] [facility] bmi 2020-08-24 14:00:00 28.64 kg/m2 [facility] oximetry 2020-08-24 14:00:00 96 % [facility] blood pressure 2020-08-24 14:00:00 197 mm[Hg] Common [facility] - systolic [facility] blood pressure 2020-08-24 14:00:00 86 mm[Hg] Common [facility] - diastolic [facility] Procedures This patient has no known procedures. Encounters Start End Encounter Admission Attending Care Care Encounter Source Date/Time Date/Time Type Type Clinicians Facility Department ID 2021-10-27 Outpatient Donis, STLMLC [facility] [id number] Common 12:15:25 Bassam [id number] [facility] 2021-10-27 Outpatient STLMLC [facility] [id number] Common 12:07:45 [id number] [facility] - [facility] 2022-05-31 2022-05-31 Outpatient SPEEDY Dial [facility] [id number] [facility] 08:52:00 08:52:00 Olanijill 47 [facility] 2022-05-11 2022-05-11 Outpatient SPEEDY Rae [facility] [id number] [facility] 10:11:00 10:11:00 Chad 67 [facility] 2022-05-11 2022-05-11 Outpatient SPEEDY Rae [facility] [id number] [facility] 10:11:00 10:11:00 Chad [id number] [facility] 2020-12-03 2020-12-03 OFFICE STLC [facility] [id number] Co mmon 00:00:00 00:00:00 VISIT Spirit ESTAB PT - CHI LEVEL 2 [facility] 2020-08-24 2020-08-24 OFFICE STLC STLC [id number] Co mmon 00:00:00 00:00:00 VISIT NEW [facility] it PT LEVEL 4 - CHI [facility] Results Test Description Test Time [...] y tests. - CTA HEART W CN ART/[id number] 00:00:00 [facility] GONSALESName: ALBERT SANCHEZ : 1950 Sex: M Name: ALEBRT SANCHEZ [facility] Dagmar Gonsales : 1950 Age/S: 72 / M [address] [place] [address] Blvd Unit #: [id number] Loc: [place] [address] Phys: ChrisstephanieJose brennan [facility] Acct: [id number] Dis Date: Status: REG CLI PHONE #: [phone] Exam Date: 05/31/2022 1012 FAX #: [phone] Reason: EXAMS: CPT CODE: [id number] CTA HEART W CN ART/GRAFTS 70352 PROCEDURE INFORMATION: Exam: CTA Heart And Coronary [...] percent phase of the R-R interval. Aortic ytufgxc18.6 x 21 mm, area of 4.18 cm2 [...] of the coronary arteries. There is coronary atheroscler osis however the study was not tailored for the assessment of the coronaries. CARDIAC CHAMBERS: Mildcardiomegaly. No LA or LV thrombus. Mild PAGE 1 Signed Report (CONTINUED) Name: ALBERT SANCHEZ [facility] : 1950 Age/S: 72 / M [address] [place] [address] Blvd Unit #: [id number] Loc: [place] [address] Phys: Jose Reinoso [facility] Acct: [id number] Dis Date: Status: REG CLI PHONE #: [phone] Exam Date: 05/31/2022 1012 FAX #: [phone] Reason: EXAMS: CPT CODE: [id number] CTA HEART W CN ART/GRAFTS 83189 (Continued) mitral annular calcification. PERICARDIUM: No evidence [...] AND SOFT TISSUES: There are no bony lyticor blastic lesions. IMPRESSION: Severe calcification of the [...] artery, superior mesenteric artery, and inferior mesenteric arteryare patent. There is 1 right and 1 left renal arteries. MINIMAL LUMINAL DIAMETERS OF ABDOMINAL AORTAAND BRANCHES: The minimal luminal diameter of the aorta is 18 x 17 mm in the infrarenal segment. TheRIGHT common iliac, external iliac and common femoral [...] 2 Signed Report (CONTINUED) Name: ALBERT SANCHEZ [facility] : 1950 Age/S: 72 / M [address] [place] [address] Unit #: [id number] Loc: [place] [address] Phys: Jose Reinoso [facility] Acct: [id number] Dis Date: Status: REG CLI PHONE #: [phone] Exam Date: 05/31/2022 1012 FAX #: [phone] Reason: EXAMS: CPT CODE: [id number] CTA HEART W CN ART/GRAFTS 88971 (Continued) Small uncomplicatedfat containing umbilical hernia. IMPRESSION: Mild atherosclerosis of [...] RT(R)(CT) CTDI: DLP: Trnscb Date/Time: 05/31/2022 (1722) [email or web address] Orig Print D/T: S: 05/31/2022 (1722) PAGE 3 Signed Report- CTA ABD PEL W CONT 2022-05-31 [facility]:00[facility] 1950 Sex: M Name: ALBERT SANCHEZ [facility] : 1950 Age/S: 72 / M [address] [place] [address] Blvd Unit #: [id number] Loc: [place] [address] Phys: Jose Reinoso Acct: [id number] Dis Date: Status: REG CLI PHONE #: [phone] Exam Date: 05/31/2022 1012 FAX #: [phone] Reason: 135.0, SEVERE AORTIC STENOSIS. EXAMS: CPT CODE: [id number] CTA ABD PEL W CONT 59363 PROCEDURE INFORMATION: Exam: CTA Heart And Coronary [...] ostium is 22.9 mm. The distance from theannulus to the LM ostium is 15.1 mm. CORONARY ARTERIES: Normal origin of the coronary arteries. There is coronary atherosclerosis however the study was not tailored for the assessment of the coronaries. CARDIAC CHAMBERS: Mild cardiomegaly. No LA or LV thrombus. Mild PAGE 1 Signed Report (CONTINUED) Name: ALBERT SANCHEZ [facility] [place] : 1950 Age/S: 72 / M [address] [place] [address] Unit #: [id number] Loc: [place] [address] Phys: Jose Reinoso [facility] Acct: [id number] Dis Date: Status: REG CLIPHONE #: [phone] Exam Date: 05/31/2022 1012 FAX #: [phone] Reason: 135.0, SEVERE AORTIC STENOSIS. EXAMS: CPT CODE: [id number] CTA ABD PEL W CONT 74213 (Continued) mitral annular calcification. PERICARDIUM: No evidence [...] with mild ground-glass changes consistent with mild edema.BONES AND SOFT TISSUES: There are no bony lytic or blastic lesions. IMPRESSION: Severe calcificationof the aortic valve compatible with aortic stenosis. [...] AORTA: There is mild atherosclerosis involving the abdominalaorta and moderate atherosclerosis involving the iliofemoral branches. [...] LEFT common iliac, external iliac and common fem oral arteries are patent, measuring 6 mm or [...] lesions. PAGE 2 Signed Report (CONTINUED) Name: QUIN SANCHEZ : 1950 Age/S: 72 / M [address] [place] [address] Blvd Unit #: [id number] Loc: [place] [address] Phys: Jose Reinoso Acct: [id number] Dis Date: Status: REG CLI PHONE #: [phone] Exam Date: 05/31/2022 1012 FAX #: [phone] Reason: 135.0, SEVERE AORTIC STENOSIS. EXAMS: CPT CODE: [id number] CTA ABD PEL W CONT 13193 (Continued) Small uncomplicated fat containing umbilical hernia. [...] 05/31/2022 (172) [email or web address] Orig Print D/T: S: 05/31/2022 (172) PAGE 3 Signed Report- CT ANGIO [id number] 00:00:00[facility] DRU[facility] ALBERT SANCHE[facility] : 1950 Sex: M Name: ALBERT SANCHEZ [facility] Dagmar Gonsales : 1950 Age/S: 72 / M [address] [place] [address] Blvd Unit #: [id number] Loc: [place] [address] Phys: Jose Reinoso [facility] Acct: [id number] Dis Date: Status: REG CLI PHONE #: [phone] Exam Date: 05/31/2022 1012 FAX #: [phone] Reason: 135.0 , SEVERE AORTIC STENOSIS. EXAMS: CPT CODE: [id number] CT ANGIO CHEST 82294 PROCEDURE INFORMATION: Exam: CTA Heart And Coronary [...] leaflets. The total calcium score of the aorticvalve is 1658. THORACIC AORTA: There is mild [...] 1 Signed Report (CONTINUED) Name: ALBERT SANCHEZ [facility] : 1950 Age/S: 72 / M [address] [place] [address] Unit #: [id number] Loc: [place] [address] Phys: Jose Reinoso [facility] Acct: [id number] Dis Date: Status: REG CLI PHONE #: [phone] Exam Date: 05/31/2022 1012 FAX #: [phone] Reason: 135.0 , SEVERE AORTIC STENOSIS. EXAMS: CPT CODE: [id number] CT ANGIO CHEST 93693 (Continued) mitral annular calcification. PERICARDIUM: No evidence [...] score of the aortic valve is 1658. Aor tic annulus 26.6 x 21 mm, area of 4.18 cm2 and perimeter of 73.9 mm. Mild pulmonary edema and small bilateral pleural effusions with mild adjacent atelectasis. Mild enlargement mediastinal lymph nodes,measuring up to 18 mm in the right [...] 2 Signed Report (CONTINUED) Name: ALBERT SANCHEZ [facility] : 1950 Age/S: 72 / M [address] [place] [address] Blvd Unit #: [id number] Loc: Dennis [id number] Phys: ChrisstephaniemikaJose [facility] Acct: [id number] Dis Date: Status: REG CLI PHONE #: [phone] Exam Date: 05/31/2022 1012 FAX #: [phone] Reason: 135.0 , SEVERE AORTIC STENOSIS. EXAMS: CPT CODE: [id number] CT ANGIO CHEST 51311 (Continued) Small uncomplicated fat containing umbilical hernia. IMPRESSION: Mild atherosclerosis of the abdominal aorta which is widely patent with a minimal luminal diameter of 18 x 17 mm in the infrarenal segment. Moderate atherosclerosis of the bilateral iliofemoralbranches. 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 CBC W/AUTO [id number] 16:09:00 Test Item Value Reference Range Interpretation [...]
--- NOTE | 2022-11-28 13:28 | ER ---
Nurse's Notes [facility] Name: Julianna Kearns Age: 72 yrs Sex: Male : 1950 Arrival Date: 11/28/2022 Time: 11:29 Bed 25 Private MD: Shawn Granados Diagnosis: Chronic venous hypertension (idiopathic) with ulcer of bilateral lower extremity;Type 2 diabetes mellitus with hyperglycemia;Edema, unspecified Presentation: 11/28 12:04 Chief complaint: Patient states: has a chronic wound on RLE ,came back this weekend. iw Coronavirus screen: At this time, the client does not indicate any symptoms associated with coronavirus-19. Ebola Screen: Patient negative for fever greater than or equal to 101.5 degrees Fahrenheit, and additional compatible Ebola Virus Disease symptoms Patient denies exposure to infectious person. Patient denies travel to an Ebola-affected area in the 21 days before illness onset. No symptoms or risks identified at this time. Initial Sepsis Screen: Does the patient meet any 2 criteria? No. Patient's initial sepsis screen is negative. Does the patient have a suspected source of infection? No. Patient's initial sepsis screen is negative. Risk Assessment: Do you want to hurt yourself or someone else? Patient reports no desire to harm self or others. Onset of symptoms was November 28, 2022. 12:04 Method Of Arrival: Ambulatory iw 12:04 Acuity: VERONICA 3 iw Historical: - Allergies: 12:05 PENICILLINS; iw - PMHx: 12:05 Atrial Fib; Hypercholesterolemia; Diabetes - NIDDM; Hypertension; iw 12:29 caridac stent; iw - Immunization history:: Client reports receiving the 2nd dose of the Covid vaccine. - Social history:: Smoking status: Patient denies any tobacco usage or history of. Screenin:30 [facility] ED Fall Risk Assessment (Adult) History of falling in the last 3 months, mb9 including since admission No falls in past 3 months (0 pts) Confusion or Disorientation No (0 pts) Intoxicated or Sedated No (0 pts) Impaired Gait No (0 pts) Mobility Assist Device Used No (0 pt) Altered Elimination No (0 pt) Score/Fall Risk Level 0 - 2 = Low Risk Oriented to surroundings, Maintained a safe environment, Educated pt \T\ family on fall prevention, incl call for assistance when getting out of bed. Abuse screen: Denies threats or abuse. Nutritional screening: No deficits noted. Tuberculosis screening: No symptoms or risk factors identified. Assessment: 12:03 Reassessment: pt brought back to ER room. mb9 12:29 General: Appears in no apparent distress. Pain: Complains of pain in right leg Quality mb9 of pain is described as throbbing, Aggravated by increased activity, repositioning, weight bearing. Neuro: Level of Consciousness is awake, alert, obeys commands, Oriented to person, place, time, situation, Appropriate for age. Cardiovascular: Capillary refill < 3 seconds is brisk. Respiratory: Airway is patent Respiratory effort is even, unlabored, Respiratory pattern is regular, symmetrical. GI: No signs and/or symptoms were reported involving the gastrointestinal system. : No signs and/or symptoms were reported regarding the genitourinary system. EENT: No signs and/or symptoms were reported regarding the EENT system. Derm:. Derm: Skin has lesions on RLE and LLE. clear drainage from lesions noted. Musculoskeletal: Range of motion: intact in all extremities. 13:22 Reassessment: Wound care nurse at bedside. mb9 Vital Signs: 12:05 BP 174 / 93; Pulse 89; Resp 16; Temp 98.1(O); Pulse Ox 98% ; Weight 97.07 kg; Height 6 iw ft. 0 in. (182.88 cm); 13:30 BP 168 / 92; Pulse 78; Resp 20; Pulse Ox 100% on R/A; mb9 12:05 Body Mass Index 29.02 (97.07 kg, 182.88 cm) ED Course: 11:29 Patient arrived in ED. am2 11:29 Shawn Granados MD is Private Physician. am2 11:31 Porter Ramos MD is Attending Physician. elie 12:03 Marva Byers, ERICA is Primary Nurse. mb9 12:05 Triage completed. iw 12:05 Arm band placed on. iw 12:31 Placed in gown. Bed in low position. Call light in reach. Side rails up X 1. Client mb9 placed on continuous cardiac and pulse oximetry monitoring. NIBP monitoring applied. hall monitor on. 12:31 No provider procedures requiring assistance completed. mb9 13:25 Shawn Granados MD is Referral Physician. elie 13:31 Patient did not have IV access during this emergency room visit. mb9 Administered Medications: 13:28 Not Given (Duplicate Order): Santyl (collagenase) Ointment 250 unit/g 1 application [facility] Topical once 13:30 Drug: Bactroban (mupirocin) Ointment 2 % 1 application Route: Topical; Site: affected mb9 area; 13:30 Follow up: Response: No adverse reaction mb9 Medication: 12:31 VIS not applicable for this client. mb9 Outcome: 13:27 Discharge ordered by . elie 13:43 Discharged to home ambulatory. mb9 13:43 Condition: stable 13:43 Discharge instructions given to patient, Instructed on discharge instructions, follow up and referral plans. Demonstrated understanding of instructions, follow-up care, medications, Prescriptions given X 1. 13:43 Patient left the ED. mb9 Signatures: Porter Ramos MD MD cha Williams, Irene, RN Emerald White Mary Beth RN RN mb9 Corrections: (The following items were deleted from the chart) 13:30 12:29 Derm: Skin has lesions on RLE. clear drainage from lesions noted mb9 mb9
--- NOTE | 2022-11-28 13:28 | EDPHYS ---
Physician Documentation [facility] Name: Julianna Kearns Age: 72 yrs Sex: Male : 1950 Arrival Date: 11/28/2022 Time: 11:29 Bed 25 Private MD: Shawn Granados ED Physician Porter Ramos HPI: 11/28 13:07 This 72 yrs old Black Male presents to ER via Ambulatory with complaints of Wound Check elie - on legs. 13:07 Patient presents to ED for recheck of: cellulitis. The affected area is on the right elie leg and left leg. Previous treatment: Previous recheck: the patient's last recheck was 7 day(s) ago. Progress: The patient reports decreased drainage, pain. The patient has experienced a previous episode, last month. Historical: - Allergies: 12:05 PENICILLINS; iw - PMHx: 12:05 Atrial Fib; Hypercholesterolemia; Diabetes - NIDDM; Hypertension; iw 12:29 caridac stent; iw - Immunization history:: Client reports receiving the 2nd dose of the Covid vaccine. - Social history:: Smoking status: Patient denies any tobacco usage or history of. ROS: 13:08 Constitutional: Negative for fever, chills, and weight loss, Eyes: Negative for injury, elie pain, redness, and discharge, ENT: Negative for injury, pain, and discharge, Neck: Negative for injury, pain, and swelling, Cardiovascular: Negative for chest pain, palpitations, and edema, Respiratory: Negative for shortness of breath, cough, wheezing, and pleuritic chest pain, Abdomen/GI: Negative for abdominal pain, nausea, vomiting, diarrhea, and constipation, Back: Negative for injury and pain, : Negative for injury, bleeding, discharge, and swelling, Skin: Negative for injury, rash, and discoloration, Neuro: Negative for headache, weakness, numbness, tingling, and seizure, Psych: Negative for depression, anxiety, suicide ideation, homicidal ideation, and hallucinations, Allergy/Immunology: Negative for hives, rash, and allergies, Endocrine: Negative for neck swelling, polydipsia, polyuria, polyphagia, and marked weight changes, Hematologic/Lymphatic: Negative for swollen nodes, abnormal bleeding, and unusual bruising. 13:08 MS/extremity: Positive for erythema, pain, swelling, of the right leg and left leg. Exam: 13:08 Constitutional: This is a well developed, well nourished patient who is awake, alert, elie and in no acute distress. Head/Face: Normocephalic, atraumatic. Eyes: Pupils equal round and reactive to light, extra-ocular motions intact. Lids and lashes normal. Conjunctiva and sclera are non-icteric and not injected. Cornea within normal limits. Periorbital areas with no swelling, redness, or edema. ENT: Nares patent. No nasal discharge, no septal abnormalities noted. Tympanic membranes are normal and external auditory canals are clear. Oropharynx with no redness, swelling, or masses, exudates, or evidence of obstruction, uvula midline. Mucous membranes moist. Neck: Trachea midline, no thyromegaly or masses palpated, and no cervical lymphadenopathy. Supple, full range of motion without nuchal rigidity, or vertebral point tenderness. No Meningismus. Chest/axilla: Normal chest wall appearance and motion. Nontender with no deformity. No lesions are appreciated. Cardiovascular: Regular rate and rhythm with a normal S1 and S2. No gallops, murmurs, or rubs. Normal PMI, no JVD. No pulse deficits. Respiratory: Lungs have equal breath sounds bilaterally, clear to auscultation and percussion. No rales, rhonchi or wheezes noted. No increased work of breathing, no retractions or nasal flaring. Abdomen/GI: Soft, non-tender, with normal bowel sounds. No distension or tympany. No guarding or rebound. No evidence of tenderness throughout. Back: No spinal tenderness. No costovertebral tenderness. Full range of motion. Male : Normal genitalia with no discharge or lesions. Skin: Warm, dry with normal turgor. Normal color with no rashes, no lesions, and no evidence of cellulitis. Neuro: Awake and alert, GCS 15, oriented to person, place, time, and situation. Cranial nerves II-XII grossly intact. Motor strength 5/5 in all extremities. Sensory grossly intact. Cerebellar exam normal. Normal gait. Psych: Awake, alert, with orientation to person, place and time. Behavior, mood, and affect are within normal limits. 13:08 Musculoskeletal/extremity: Extremities: grossly normal except: noted in the left leg and right leg: pain, swelling, tenderness, ROM: full active range of motion, full passive range of motion, Circulation is intact in all extremities. Sensation intact. Compartment Syndrome exam of affected extremity: is normal. Weight bearing: able to fully bear weight, without difficulty, DVT Exam: negative Homans' sign noted on exam, no appreciated bluish discoloration, no erythema, pain, swelling, tenderness, increased warmth. Vital Signs: 12:05 BP 174 / 93; Pulse 89; Resp 16; Temp 98.1(O); Pulse Ox 98% ; Weight 97.07 kg; Height 6 iw ft. 0 in. (182.88 cm); 13:30 BP 168 / 92; Pulse 78; Resp 20; Pulse Ox 100% on R/A; mb9 12:05 Body Mass Index 29.02 (97.07 kg, 182.88 cm) iw MDM: 11:31 Patient medically screened. [facility] 13:10 Differential diagnosis: cellulitis, contusion, abrasion, tendonitis. Data reviewed: [facility] vital signs, nurses notes. Consideration of Admission/Observation Escalation of care including admission/observation considered. Test considered but Not performed: Labs: NO LABS,NO CBC, NO COMP . Care significantly affected by the following chronic conditions: Diabetes, Hypertension, Obesity, ATRIAL FIB. 13:24 I considered the following discharge prescriptions or medication management in the [facility] emergency department Medications were administered in the Emergency Department. See MAR. Historians other than the Patient: Spouse/Significant Other: , INFORMED. 11/28 13:07 Order name: [facility]. Order: WOUND CARE; Complete Time: 13:22 [facility] 11/28 13:09 Order name: [facility] EDMS Administered Medications: 13:28 Not Given (Duplicate Order): Santyl (collagenase) Ointment 250 unit/g 1 application elie Topical once 13:30 Drug: Bactroban (mupirocin) Ointment 2 % 1 application Route: Topical; Site: affected mb9 area; 13:30 Follow up: Response: No adverse reaction mb9 Disposition Summary: 11/28/22 13:27 Discharge Ordered Location: Home elie Problem: new elie Symptoms: have improved elie Condition: Stable elie Diagnosis - Chronic venous hypertension (idiopathic) with ulcer of bilateral lower extremity elie - Type 2 diabetes mellitus with hyperglycemia elie - Edema, unspecified elie Followup: elie - With: Shawn Granados MD - When: 1 - 2 days - Reason: Recheck today's complaints, Continuance of care, Re-evaluation by your physician Discharge Instructions: - Discharge Summary Sheet elie - Type 2 Diabetes Mellitus, Diagnosis, Adult elie - Hyperglycemia elie - Diabetes Mellitus and Nutrition, Adult elie - Hyperglycemia, [id number] elie Forms: - Medication Reconciliation Form elie - Thank You Letter elie - Antibiotic Education elie - Prescription Opioid Use elie Prescriptions: - Centany 2 % Topical ointment - apply 1 application by TOPICAL route 3 times per day; 60 gram; Refills: 0, elie Product Selection Permitted Signatures: Dispatcher [employer] Porter Richey MD MD cha Williams, Irene, RN Marva Fierro RN RN mb9
[2022-11-28] MEDS ORDERED: MUPIROCIN 2% OINT 22GM TUBE TOP ONE (13:33)
[2022-11-28 13:47] VITALS: TEMP 98.1
[2022-11-28 13:48] VITALS: BP 168/92; O2SAT 100
== END 2022-11-28 13:43 | disposition home or self-care (01) ==
LOC: ER 11:22
DX: I87.313 Chronic venous hypertension (idiopathic) with ulcer of bilateral lower extremity (principal); E11.65 Type 2 diabetes mellitus with hyperglycemia; R60.9 Edema, unspecified; I10 Essential (primary) hypertension; I48.91 Unspecified atrial fibrillation; Z95.818 Presence of other cardiac implants and grafts; Z88.5 Allergy status to narcotic agent
CPT/HCPCS: 99284

== ENCOUNTER 2023-01-24 08:50 | Inpatient (IN) | payer OTHER ==
--- OUTSIDE RECORDS SUMMARY | 2023-01-24 08:53 | XMS REPORT | Continuity of Care Document ---
:1950 Author Organization [facility] t Address [address] [facility] [address] [place] [address] Care Team Providers Name Role Phone Bassam Donis Attending Clinician Unavailable Jose Reinoso Attending Clinician Unavailable Chad Alvarez Attending Clinician Unavailable Physician, No Primary or Family Admitting Clinician Unavaila ble Payers Payer Name Policy Type Policy Number Effective Date Expiration Date S [place] [id number] [facility] Problems Condition Condition Condition Status Onset Resolution Last Treating Co mments Source Name Details Category Date Date Treatment Clinician Date [id number] 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 - [facility] n) of [facility] [id number] Prostate Problem Active Com mon nodule [facility] [id number] Urge Problem Active Common incontinen Spirit ce [facility] [id number] Lower Problem Active Common urinary [facility] tract - [facility] symptoms [facility] Allergies, Adverse Reactions, Alerts Allergy Allergy Status Severity Reaction(s) Onset Inactive Treating Comm ents Source Name Type Date Date Clinician Penicill DA Active SV HIVES [facility] ins 05-06 Clear 00:00: Gonsales 00 [facility] Social History Social Habit Start Date Stop Date Quantity Comments Source Sex Assigned At Com mon [facility] History of Tobacco Use Co mmon [facility] Medications Ordered Filled Start Stop Current [...] Source height 2020-12-03 11:15:00 70 [in_i] Common [facility] weight 2020-12-03 11:15:00 197 [lb_av] [facility] temperature 2020-12-03 11:15:00 97.6 [degF] [facility] bmi 2020-12-03 11:15:00 28.26 kg/m2 [facility] oximetry 2020-12-03 11:15:00 97 % [facility] blood pressure 2020-12-03 11:15:00 139 mm[Hg] Common [facility] - systolic [facility] blood pressure 2020-12-03 11:15:00 64 mm[Hg] Common [facility] - diastolic [facility] height 2020-08-24 14:00:00 70 [in_i] Common [facility] weight 2020-08-24 14:00:00 199.6 [lb_av] [facility] temperature 2020-08-24 14:00:00 98.4 [degF] [facility] bmi 2020-08-24 14:00:00 28.64 kg/m2 [facility] oximetry 2020-08-24 14:00:00 96 % [facility] blood pressure 2020-08-24 14:00:00 197 mm[Hg] Common [facility] - systolic [facility] blood pressure 2020-08-24 14:00:00 86 mm[Hg] Common [facility] - diastolic [facility] Procedures This patient has no known procedures. Encounters Start End Encounter Admission Attending Care Care Encounter Source Date/Time Date/Time Type Type Clinicians Facility Department ID 2021-10-27 Outpatient Donis, [facility] [id number] Common 12:15:[id number] [facility] 2021-10-27 Outpatient STLMLC [facility] [id number] Common 12:07:45 [id number] Spirit - [facility] 2022-05-31 2022-05-31 Outpatient SPEEDY Dial [facility] [id number] [facility] 08:52:00 08:52:00 Olanijill 47 [facility] 2022-05-11 2022-05-11 Outpatient SPEEDY Rae [facility] [id number] [facility] 10:11:00 10:11:00 Chad 67 [facility] 2022-05-11 2022-05-[address] [facility] [id number] [facility] 10:11:00 10:11:00 Chad [id number] [facility] 2020-12-03 2020-12-03 OFFICE [facility] [id number] Co mmon 00:00:00 00:00:00 VISIT Spirit ESTAB PT - CHI LEVEL 2 [facility] 2020-08-24 2020-08-24 OFFICE [facility] [id number] Co mmon 00:00:00 00:00:00 VISIT NEW [facility] it PT LEVEL 4 - CHI [facility] Results Test Description Test Time Test Comments [...] y tests. 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 Aortic mgtwecj06.6 x 21 mm, area of 4.18 cm2 [...] 1 Signed Report (CONTINUED) Name: ALBERT SANCHEZ [facility] : 1950 Age/S: 72 / M [address] [place] [address] Blvd Unit #: [id number] Loc: [place] [address] Phys: Jose Reinoso [facility] Acct: [id number] Dis Date: Status: REG CLI PHONE #: [phone] Exam Date: 05/31/2022 1012 FAX #: [phone] Reason: EXAMS: CPT CODE: [id number] CTA HEART W CN ART/GRAFTS 50599 (Continued) mitral annular calcification. PERICARDIUM: No evidence [...] 2 Signed Report (CONTINUED) Name: ALBERT SANCHEZ [facility] : 1950 Age/S: 72 / M [address] [place] [address] Unit #: [id number] Loc: [place] [address] Phys: Jose Reinoso [facility] Acct: [id number] Dis Date: Status: REG CLI PHONE #: [phone] Exam Date: 05/31/2022 1012 FAX #: [phone] Reason: EXAMS: CPT CODE: [id number] CTA HEART W CN ART/GRAFTS 63260 (Continued) Small uncomplicatedfat containing umbilical hernia. IMPRESSION: [...] CTA ABD PEL W CONT 2022-05-31 00:00:00 [facility] : 1950 Sex: M Name: ALBERT SANCHEZ [facility] : 1950 Age/S: 72 / M [address] [place] [address] Blvd Unit #: [id number] Loc: [place] [address] Phys: Jose Reinoso Acct: [id number] Dis Date: Status: REG CLI PHONE #: [phone] Exam Date: 05/31/2022 1012 FAX #: [phone] Reason: 135.0, SEVERE AORTIC STENOSIS. EXAMS: CPT CODE: [id number] CTA ABD PEL W CONT 33832 PROCEDURE INFORMATION: Exam: CTA Heart And Coronary [...] 1 Signed Report (CONTINUED) Name: ALBERT SANCHEZ [facility] [place] : 1950 Age/S: 72 / M [address] [place] [address] Unit #: [id number] Loc: [place] [address] Phys: Jose Reinoso [facility] Acct: [id number] Dis Date: Status: REG CLIPHONE #: [phone] Exam Date: 05/31/2022 1012 FAX #: [phone] Reason: 135.0, SEVERE AORTIC STENOSIS. EXAMS: CPT CODE: [id number] CTA ABD PEL W CONT 50937 (Continued) mitral annular calcification. PERICARDIUM: No evidence [...] SANCHEZ : 1950 Age/S: 72 / M [address] [place] [address] Blvd Unit #: [id number] Loc: [place] [address] Phys: Jose Reinoso Acct: [id number] Dis Date: Status: REG CLI PHONE #: [phone] Exam Date: 05/31/2022 1012 FAX #: [phone] Reason: 135.0, SEVERE AORTIC STENOSIS. EXAMS: CPT CODE: [id number] CTA ABD PEL W CONT 12142 (Continued) Small uncomplicated fat containing umbilical hernia. [...] (172) PAGE 3 Signed Report- CT ANGIO [id number] 00:00[facility]00[facility] : 1950 Sex: M Name: ALBERT SANCHEZ [facility] Dagmar Gonsales : 1950 Age/S: 72 / M [address] [place] [address] Blvd Unit #: [id number] Loc: [place] [address] Phys: Jose Reinoso [facility] Acct: [id number] Dis Date: Status: REG CLI PHONE #: [phone] Exam Date: 05/31/2022 1012 FAX #: [phone] Reason: 135.0 , SEVERE AORTIC STENOSIS. EXAMS: CPT CODE: [id number] CT ANGIO CHEST 31406 PROCEDURE INFORMATION: Exam: CTA Heart And Coronary [...] 1 Signed Report (CONTINUED) Name: ALBERT SANCHEZ [facility] : 1950 Age/S: 72 / M [address] [place] [address] Unit #: [id number] Loc: [place] [address] Phys: Jose Reinoso [facility] Acct: [id number] Dis Date: Status: REG CLI PHONE #: [phone] Exam Date: 05/31/2022 1012 FAX #: [phone] Reason: 135.0 , SEVERE AORTIC STENOSIS. EXAMS: CPT CODE: [id number] CT ANGIO CHEST 29335 (Continued) mitral annular calcification. PERICARDIUM: No evidence [...] 2 Signed Report (CONTINUED) Name: ALBERT SANCHEZ [facility] : 1950 Age/S: 72 / M [address] [place] [address] Blvd Unit #: [id number] Loc: Dennis [id number] Phys: ChrisstephaniemikaJose [facility] Acct: [id number] Dis Date: Status: REG CLI PHONE #: [phone] Exam Date: 05/31/2022 1012 FAX #: [phone] Reason: 135.0 , SEVERE AORTIC STENOSIS. EXAMS: CPT CODE: [id number] CT ANGIO CHEST 59276 (Continued) Small uncomplicated fat containing umbilical hernia. 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 CBC W/AUTO [id number] 16:09:00 Test Item Value Reference Range Interpretation [...]
[2023-01-24] MEDS ORDERED: IPRATROPIUM BROM 0.5MG/2.5ML ONE ×2 (09:17→19:55)
[2023-01-24] MEDS ORDERED: ALBUTEROL 2.5 MG/3 ML NEB SOL ONE ×2 (09:17→19:54)
[2023-01-24] MEDS ORDERED: FUROSEMIDE 40 MG/4 ML VIAL ONE (09:17)
--- NOTE | 2023-01-24 10:08 | RAD REPORT ---
[facility]57 [facility] CLINICAL HISTORY: Cough;Dyspnea COMPARISON: Chest Single View dated 07/21/2022; Chest Single View dated 07/19/2022; Chest Single Vie w dated 07/17/2022; Chest Single View dated 06/08/2022 TECHNIQUE: Portable AP view of the chest. FINDINGS: Patchy bilateral airspace opacities most pronounced in the left lung base are stable. Decr eased inspiratory effort limits evaluation. No pneumothorax or effusion. Stable cardiomegaly. Mediast inal contours are unchanged. IMPRESSION: Stable bilateral patchy airspace opacities. Stable cardiomegaly.
[2023-01-24 10:38] LABS: SARS-CoV-2 Antigen Rapid Res Negative (Negative)
[2023-01-24] MEDS ORDERED: NA CHLORIDE 0.9% 250 ML ONE (10:42)
[2023-01-24] MEDS ORDERED: AZITHROMYCIN 500 MG INJ IVPB ONE (10:42)
[2023-01-24] MEDS ORDERED: CEFTRIAXONE 1000 MG/VIAL ONE (11:02)
[2023-01-24 11:11] LABS: Absolute Lymphocytes (CBC) 1.4 K/uL (0.7-4.9); Hematocrit 50.6 % (39.6-49.0); Lymphocytes % 20.8 % (15.3-44.8); MCV 85.1 fL (80-100); RBC Red Blood Cell Count 5.95 M/uL (4.33-5.43)
[2023-01-24] MEDS ORDERED: HYDRALAZINE HCL 20 MG/ML VIAL ONE (11:30)
[2023-01-24 12:15] LABS: Protime INR 1.15
[2023-01-24] MEDS ORDERED: cloNIDine HCL 0.1 MG TAB ONE (12:29)
[2023-01-24 13:27] LABS: Magnesium 1.6 mg/dL (1.6-2.4); Potassium 2.8 mEq/L (3.5-5.1)
[2023-01-24 13:31] LABS: Troponin High Sensitivity 143.7 pg/mL (<58.9)
--- NOTE | 2023-01-24 13:38 | ER ---
Nurse's Notes [facility] Name: Julianna Kearns Age: 72 yrs Sex: Male : 1950 Arrival Date: 01/24/2023 Time: 08:50 Bed 2 Private MD: Diagnosis: Other pneumonia, unspecified organism;Elevated Troponin;Influenza due to identified novel influenza A virus with pneumonia Presentation: 01/24 08:52 Chief complaint: sent here by Dr. Donis office, accompanied by PURIFYING PLANT OPERATOR, with O2 via 2 L NC. aa5 PURIFYING PLANT OPERATOR states "he has a history of COPD and CHF and his O2 sat was 86% RA up to 90% via 2 L NC now, he is fluid overloaded". Pt reports SOB on exertion, leg swelling noted. 08:52 Coronavirus screen: shortness of breath. Ebola Screen: Patient denies travel to an [facility] Ebola-affected area in the 21 days before illness onset. Risk Assessment: Do you want to hurt yourself or someone else? Patient reports no desire to harm self or others. Onset of symptoms was December 2022. 08:52 Acuity: VERONICA 2 aa5 08:52 Method Of Arrival: Wheelchair aa Historical: - Allergies: 08:54 PENICILLINS; ld1 - Home Meds: 09:01 Lasix 20 mg Oral tablet 2 times per day [Active]; Xarelto oral [Active]; ld1 - PMHx: 08:54 Atrial Fib; Diabetes - NIDDM; Hypertension; caridac stent; Hypercholesterolemia; ld1 - Immunization history:: Adult Immunizations up to date. - Social history:: Smoking status: Patient denies any tobacco usage or history of. Patient/guardian denies using alcohol. Screenin:01 [facility] ED Fall Risk Assessment (Adult) History of falling in the last 3 months, ld1 including since admission No falls in past 3 months (0 pts). Abuse screen: Denies threats or abuse. Denies injuries from another. Nutritional screening: No deficits noted. Tuberculosis screening: No symptoms or risk factors identified. Assessment: 08:59 General: Appears in no apparent distress. comfortable, Behavior is calm, cooperative, ld1 appropriate for age. Pain: Denies pain. Neuro: Level of Consciousness is awake, alert, obeys commands, Oriented to person, place, time, situation. Cardiovascular: Capillary refill < 3 seconds Patient's skin is warm and dry. Cardiovascular: Reports shortness of breath. Respiratory: Reports shortness of breath at rest on exertion Airway is patent Respiratory effort is even, unlabored, Breath sounds are clear bilaterally. GI: Abdomen is round non-distended. : No signs and/or symptoms were reported regarding the genitourinary system. EENT: No signs and/or symptoms were reported regarding the EENT system. Derm: No signs and/or symptoms reported regarding the dermatologic system. Musculoskeletal: No signs and/or symptoms reported regarding the musculoskeletal system. 11:07 Reassessment: Patient appears in no apparent distress at this time. No changes from ld1 previously documented assessment. Patient and/or family updated on plan of care and expected duration. Pain level reassessed. 11:34 Reassessment: notified lab for recollect of green top. iw 12:30 Reassessment: Patient appears in no apparent distress at this time. No changes from ld1 previously documented assessment. Patient and/or family updated on plan of care and expected duration. Pain level reassessed. 14:00 Reassessment: Patient appears in no apparent distress at this time. No changes from ld1 previously documented assessment. Patient and/or family updated on plan of care and expected duration. Pain level reassessed. 16:00 Reassessment: Patient appears in no apparent distress at this time. No changes from ld1 previously documented assessment. Patient denies pain at this time. 18:05 Reassessment: Pt transported to [facility]. ld1 18:55 Reassessment: Unsuccessful attempt to call report, nurse unavailable "shift change", nj1 recommended to call back in 15-20 min. 19:30 Reassessment: Unsuccessful attempt to call report at this time, "nurse unavailable, nj1 doing shift report", will all back for report. Vital Signs: 08:52 Pulse 93; Resp 20 S; Pulse Ox 93% on 2 lpm NC; aa5 09:01 BP 196 / 111; Pulse 88; Resp 19; Temp 98.5(O); Pulse Ox 96% on 3 lpm NC; Weight 100 kg; ld1 Height 5 ft. 10 in. ; Pain 0/10; 10:26 BP 194 / 93; Pulse 88; Resp 21; Pulse Ox 95% on 3 lpm NC; ld1 11:48 BP 179 / 127; Pulse 103; Resp 23; cm9 12:19 BP 185 / 94; Pulse 105; Resp 18; Pulse Ox 94% on R/A; ld1 16:28 BP 175 / 97; Pulse 89; Resp 20; Temp 98.2; Pulse Ox 100% on 4 lpm NC; cm9 16:40 BP 174 / 92; Pulse 84; Resp 18; Pulse Ox 95% on 4 lpm NC; ld1 18:04 BP 179 / 86; Pulse 88; Resp 18; Pulse Ox 95% on 4 lpm NC; ld1 19:30 BP 173 / 92; Pulse 87; Resp 18; Pulse Ox 99% on 4 lpm NC; nj1 20:42 BP 173 / 87; Pulse 97; Resp 19; Temp 99(O); Pulse Ox 93% on 4 lpm NC; nj1 09:01 Body Mass Index 31.63 (100.00 kg, 177.8 cm) ld1 09:01 Pain Scale: Adult ld1 ED Course: 08:52 Patient arrived in ED. ld1 08:52 Arm band placed on Patient placed in an exam room, on a stretcher. aa5 08:56 Tayo Wade DO is Attending Physician. ms3 08:59 Triage completed. aa5 08:59 Ritika Canales FNP is PHCP. jh7 08:59 Margarita Wade, RN is Primary Nurse. ld1 09:01 Patient has correct armband on for positive identification. Placed in gown. Bed in low ld1 position. Call light in reach. Side rails up X2. children's attendant on. Pulse ox on. NIBP on. Door closed. Noise minimized. Warm blanket given. 09:01 No provider procedures requiring assistance completed. ld1 09:40 Flu Sent. ld1 09:40 SARS RAPID Sent. ld1 09:58 XRAY Chest (1 view) In Process Unspecified. EDMS 10:25 Missed attempt(s): 20 gauge in left antecubital area. ld1 10:56 Inserted saline lock: 24 gauge in left hand, using aseptic technique. iw 10:59 Basic Metabolic Panel Sent. iw 10:59 CBC with Diff Sent. iw 10:59 Magnesium Sent. iw 10:59 NT PRO-BNP Sent. iw 10:59 Lactate w/ 2H reflex if indic. Sent. iw 13:36 Modesto Gotti MD is Hospitalizing Provider. 7 14:00 Bath given. Cleaned of incontinence. Linen changed. cm9 Administered Medications: 09:40 Drug: DuoNeb Nebulize (3:1) (2.5 mg - 0.5 mg) 3 ml Route: Nebulizer; ld1 10:02 Follow up: Response: No adverse reaction ld1 11:40 Drug: AZITHromycin IVPB 500 mg Route: IVPB; Infused Over: 1 hrs; Site: left hand; cm9 12:55 Follow up: IV Status: Completed infusion cm9 11:40 Drug: Rocephin IV 1 grams Route: IV; Rate: 1 calculated rate; Site: left hand; cm9 11:42 Drug: Furosemide IVP 40 mg Route: IVP; Site: left hand; cm9 11:42 Drug: hydrALAZINE IVP 10 mg Route: IVP; Site: left hand; cm9 12:36 Drug: cloNIDine PO 0.1 mg Route: PO; cm9 13:39 Drug: Potassium PO Effervescent Tablet 50 mEq Route: PO; ld1 Outcome: 13:37 Decision to Hospitalize by Provider. [facility] 20:45 Admitted to Tele accompanied by tech, via stretcher, room 232, Report called to nurse lexi Aparicio 20:45 Condition: stable 20:45 Instructed on the need for admit. 21:23 Patient left the ED. lexi Signatures: Dispatcher [employer] Leslie Bolton, RN Angelita Mann RN RN aa5 Tayo Wade, DO DO ms3 Margarita Wade RN RN ld1 Ritika Canales, SLUMBER ROOM ATTENDANT SLUMBER ROOM ATTENDANT 7 Marcy Leos RN ERICA nj1 Nicole Shepherd, ERICA RN cm9
--- NOTE | 2023-01-24 13:38 | EDPHYS ---
Physician Documentation [facility] Name: Julianna Kearns Age: 72 yrs Sex: Male : 1950 Arrival Date: 01/24/2023 Time: 08:50 Bed 2 Private MD: ED Physician Tayo Wade HPI: 01/24 08:54 This 72 yrs old Black Male presents to ER via Wheelchair with complaints of Cough, jh7 Shortness Of Breath. 08:54 The patient has shortness of breath at rest. Onset: The symptoms/episode began/occurred jh7 5 day(s) ago. Associated signs and symptoms: Pertinent positives: non-productive cough, Pertinent negatives: chest pain, dizziness, fever, nausea, vomiting. 72-year-old male sent from Dr. Donis office for low oxygen saturation. The patient's PA states that the patient presented to her office for a progressive cough over the past 5 days. She reports that he was 86% on room air. He has a history of COPD, CHF, atrial fibrillation, and diabetes. Reports that he has been admitted multiple times for pneumonia. His reports that he is on Lasix 40 mg twice daily but often skips his medication, because he does not like the urinary frequency.. Historical: - Allergies: 08:54 PENICILLINS; ld1 - Home Meds: 09:01 Lasix 20 mg Oral tablet 2 times per day [Active]; Xarelto oral [Active]; ld1 - PMHx: 08:54 Atrial Fib; Diabetes - NIDDM; Hypertension; caridac stent; Hypercholesterolemia; ld1 - Immunization history:: Adult Immunizations up to date. - Social history:: Smoking status: Patient denies any tobacco usage or history of. Patient/guardian denies using alcohol. ROS: 08:54 Eyes: Negative for injury, pain, redness, and discharge, Neck: Negative for injury, jh7 pain, and swelling, Abdomen/GI: Negative for abdominal pain, nausea, vomiting, diarrhea, and constipation, Back: Negative for injury and pain, MS/Extremity: Negative for injury and deformity, Skin: Negative for injury, rash, and discoloration, Neuro: Negative for headache, weakness, numbness, tingling, and seizure. 08:54 Cardiovascular: Positive for edema, Negative for chest pain, palpitations. 08:54 Respiratory: Positive for cough, shortness of breath. 08:54 All other systems are negative. Exam: 08:54 Constitutional: This is a well developed, well nourished patient who is awake, alert, jh7 and in no acute distress. Head/Face: Normocephalic, atraumatic. 08:54 Neck: Trachea midline, no thyromegaly or masses palpated, and no cervical lymphadenopathy. Supple, full range of motion without nuchal rigidity, or vertebral point tenderness. No Meningismus. Abdomen/GI: Soft, non-tender, with normal bowel sounds. No distension or tympany. No guarding or rebound. No evidence of tenderness throughout. Back: No spinal tenderness. No costovertebral tenderness. Full range of motion. MS/ Extremity: Pulses equal, no cyanosis. Neurovascular intact. Full, normal range of motion. Neuro: Awake and alert, GCS 15, oriented to person, place, time, and situation. Motor function and sensation intact. 08:54 Cardiovascular: Edema: 3+ edema to level of left midcalf, left ankle, right midcalf and right ankle. 08:54 Respiratory: the patient does not display signs of respiratory distress, mild respiratory distress is noted, Respirations: normal, Breath sounds: decreased breath sounds, that are mild, are scattered. Vital Signs: 08:52 Pulse 93; Resp 20 S; Pulse Ox 93% on 2 lpm NC; aa5 09:01 BP 196 / 111; Pulse 88; Resp 19; Temp 98.5(O); Pulse Ox 96% on 3 lpm NC; Weight 100 kg; ld1 Height 5 ft. 10 in. ; Pain 0/10; 10:26 BP 194 / 93; Pulse 88; Resp 21; Pulse Ox 95% on 3 lpm NC; ld1 11:48 BP 179 / 127; Pulse 103; Resp 23; cm9 12:19 BP 185 / 94; Pulse 105; Resp 18; Pulse Ox 94% on R/A; ld1 16:28 BP 175 / 97; Pulse 89; Resp 20; Temp 98.2; Pulse Ox 100% on 4 lpm NC; cm9 16:40 BP 174 / 92; Pulse 84; Resp 18; Pulse Ox 95% on 4 lpm NC; ld1 18:04 BP 179 / 86; Pulse 88; Resp 18; Pulse Ox 95% on 4 lpm NC; ld1 19:30 BP 173 / 92; Pulse 87; Resp 18; Pulse Ox 99% on 4 lpm NC; nj1 20:42 BP 173 / 87; Pulse 97; Resp 19; Temp 99(O); Pulse Ox 93% on 4 lpm NC; nj1 09:01 Body Mass Index 31.63 (100.00 kg, 177.8 cm) ld1 09:01 Pain Scale: Adult ld1 MDM: 08:59 Patient medically screened. [facility] 11:31 ED course: Called lab to inquire about delayed results of the lab work. Labs states [facility] that the CBC will not be resulted, but they called for recollect on green top at 1114.. 13:35 Differential diagnosis: Bronchitis CHF exacerbation, Chronic Obstructive Pulmonary 7 Disease pneumonia, pulmonary edema, Sepsis. Antibiotic administration: Rocephin and Zithromax given. Data interpreted: research compliance specialist: Pulse oximetry: on 3L(s) per nasal canula, is 94 %. Interpretation: acceptable. Data reviewed: vital signs, nurses notes, lab test result(s), EKG, radiologic studies, plain films. Consideration of Admission/Observation Patient was admitted/placed on observation. Management of patient was discussed with the following: Hospitalist: LUCIA Loja for Dr. Gotti. I considered the following discharge prescriptions or medication management in the emergency department Medications were administered in the Emergency Department. See MAR. Independent interpretation of the following test(s) in the Emergency Department EKG: See my EKG interpretation above. Historians other than the Patient: Spouse/Significant Other: . Care significantly affected by the following chronic conditions: Diabetes, Hypertension. Counseling: I had a detailed discussion with the patient and/or guardian regarding: the historical points, exam findings, and any diagnostic results supporting the discharge/admit diagnosis, the need for further work-up and treatment in the hospital. Response to treatment: the patient's symptoms have markedly improved after treatment. 01/24 09:00 Order name: Basic Metabolic Panel; Complete Time: 13:32 [facility] 01/24 09:00 Order name: CBC with Diff; Complete Time: 11:31 [facility] 01/24 09:00 Order name: Magnesium; Complete Time: 13:32 [facility] 01/24 09:00 Order name: NT PRO-BNP; Complete Time: 13:32 [facility] 01/24 09:00 Order name: PT-INR; Complete Time: 12:28 [facility] 01/24 09:00 Order name: Troponin HS; Complete Time: 13:32 [facility] 01/24 09:00 Order name: SARS RAPID; Complete Time: 10:41 [facility] 01/24 09:00 Order name: Flu; Complete Time: 10:48 [facility] 01/24 09:00 Order name: Lactate w/ 2H reflex if indic.; Complete Time: 11:40 [facility] 01/24 17:55 Order name: Troponin High Sensitivity [facility] 01/24 17:55 Order name: Troponin High Sensitivity [facility] 01/24 17:55 Order name: Troponin High Sensitivity [facility] 01/24 19:46 Order name: Creatine Phosphokinase [facility] 01/24 19:46 Order name: T4 Free [facility] 01/24 19:46 Order name: Magnesium [facility] 01/24 19:46 Order name: Thyroid Stimulating Hormone [facility] 01/24 20:08 Order name: Lactate Sepsis 2 HR Follow-up [facility] 01/24 09:00 Order name: XRAY Chest (1 view); Complete Time: 10:12 [facility] 01/24 15:44 Order name: VQ scan (Nuclear Medicine) [facility] 01/24 18:46 Order name: NM; Complete Time: 19:15 [facility] 01/24 09:00 Order name: EKG; Complete Time: 09:01 [facility] 01/24 09:00 Order name: Cardiac monitoring; Complete Time: 09:04 [facility] 01/24 09:00 Order name: EKG - Nurse/Tech; Complete Time: 09:04 [facility] 01/24 09:00 Order name: IV Saline Lock; Complete Time: 10:59 [facility] 01/24 09:00 Order name: Labs collected and sent; Complete Time: 10:59 [facility] 01/24 09:00 Order name: O2 Per Protocol; Complete Time: 09:04 [facility] 01/24 09:00 Order name: O2 Sat Monitoring; Complete Time: 09:04 [facility] EC:14 Rate is 88 beats/min. Rhythm is regular. VT interval is normal at 156 msec. QRS jh7 interval is normal at 98 msec. QT interval is normal at 404 msec. No Q waves. Clinical impression: NSR w/ Non-specific ST/T Changes. Administered Medications: 09:40 Drug: DuoNeb Nebulize (3:1) (2.5 mg - 0.5 mg) 3 ml Route: Nebulizer; ld1 10:02 Follow up: Response: No adverse reaction ld1 11:40 Drug: AZITHromycin IVPB 500 mg Route: IVPB; Infused Over: 1 hrs; Site: left hand; cm9 12:55 Follow up: IV Status: Completed infusion cm9 11:40 Drug: Rocephin IV 1 grams Route: IV; Rate: 1 calculated rate; Site: left hand; cm9 11:42 Drug: Furosemide IVP 40 mg Route: IVP; Site: left hand; cm9 11:42 Drug: hydrALAZINE IVP 10 mg Route: IVP; Site: left hand; cm9 12:36 Drug: cloNIDine PO 0.1 mg Route: PO; cm9 13:39 Drug: Potassium PO Effervescent Tablet 50 mEq Route: PO; ld1 Disposition: 08:59 PA/TERRAZZO INSTALLER's history reviewed, patient interviewed, and examined. HPI: 72-year-old male with ms3 atrial fibrillation, diabetes, hypertension, coronary artery disease presents from Dr. Euceda's office for hypoxia and shortness of breath. Patient states he has not been taking his Lasix as prescribed due to the fact that his hips hurt and he does not want to have to get up to go to the bathroom. My personal exam of patient reveals: On exam patient is alert, no apparent distress, nontoxic-appearing. Heart rate is regular, rhythm is regular. Lungs are clear to auscultation bilaterally. Pedal edema is present bilateral lower extremities. Skin is dry and without rashes. 14:58 Co-signature as Attending Physician, Tayo Wade DO. ms3 Disposition Summary: 01/24/23 13:37 Hospitalization Ordered Hospitalization Status: Inpatient Admission [facility] Provider: Modesto Gotti [facility] Location: Telemetry/MedSurg (Inpatient) [facility] Condition: Stable [facility] Problem: new [facility] Symptoms: are unchanged [facility] Bed/Room Type: Standard [facility] Room Assignment: 232(01/24/23 18:41) kj1 Diagnosis - Other pneumonia, unspecified organism [facility] - Elevated Troponin [facility] - Influenza due to identified novel influenza A virus with pneumonia [facility] Forms: - Medication Reconciliation Form [facility] - SBAR form [facility] Signatures: Dispatcher [employer] EDKarlos Moe, BRIE-C CHIEF CONSTRUCTION INSPECTOR-Cla1 Shwetha Easton kj1 Tayo Wade, DO BELLA ms3 Margarita Wade RN RN ld1 Ritika Canaels FNP [facility] Nicole Shepherd RN RN cm9 Corrections: (The following items were deleted from the chart) 18:41 13:37 delmi kj1
[2023-01-24] MEDS ORDERED: POTASSIUM 25 MEQ EFFERV TAB ONE (13:42)
[2023-01-24] MEDS ORDERED: ACETAMINOPHEN 325 MG TABLET PO PRN (17:59)
[2023-01-24] MEDS ORDERED: ONDANSETRON 4 MG/2 ML VIAL IV PRN (18:01)
[2023-01-24] MEDS ORDERED: ENOXAPARIN 40 MG/0.4 ML SQ SCH (18:04)
--- NOTE | 2023-01-24 18:24 | P.HP ---
Certification for Inpatient Patient admitted to: Inpatient With expected LOS: >2 Midnights Patient will require the following post-hospital care: None Practitioner: I am a practitioner with admitting privileges, knowledge of patient current condition, hospital course, and medical plan of care. Services: Services provided to patient in accordance with Admission requirements found in Title 42 Section 412.3 of the Code of Federal Regulations Patient History Date of Service: 01/24/23 Reason for admission: SOB, Cough History of Present Illness: Patient is a 72-year-old male with a past medical history significant for DM 2, hypertension, CHF, COPD, atrial fibrillation, CAD with stent, hyperlipidemia who presents with complaint of shortness of breath and cough that has been ongoing for the past 1 week. Patient reported associated signs and symptoms of sore throat, fatigue, weakness, chest tightness, generalized edema and generalized malaise. Patient has not been fully compliant with his home Lasix medication. Patient denies any other signs and symptoms. Symptoms are aggravated by exertion and relieved by nothing. Patient followed up with his PCP who referred him to the hospital due to hypoxia. Patient was brought to the hospital for medical evaluation. Of note, patient is noted to with bilateral lower extremity wounds. Allergies Penicillins Adverse Reaction (Verified 03/17/20 15:42) Hives Home Medications: Amlodipine [Norvasc*] 10 mg PO DAILY #30 tab 06/10/22 Atorvastatin Calcium [Lipitor] 80 mg PO BEDTIME #30 tab 06/10/22 Clopidogrel Bisulfate [Plavix*] 75 mg PO DAILY #30 tab 06/10/22 Empagliflozin [Jardiance] 25 mg PO DAILY 30 Days #30 tablet 06/10/22 Hydralazine [Apresoline*] 25 mg PO TID #90 tab 06/10/22 Losartan Potassium [Cozaar*] 100 mg PO DAILY #60 tablet 06/10/22 Sotalol HCl [Betapace*] 120 mg PO BID 6AM 6PM #60 tab 06/10/22 Ferrous Sulfate [Iron] 325 mg PO DAILY 07/17/22 Pantoprazole Sodium [Protonix] 40 mg PO DAILY 07/17/22 Apixaban [Eliquis *] 2.5 mg PO BID #60 tab 07/24/22 Benzonatate [Tessalon Perle*] 100 mg PO TID PRN #30 cap 07/24/22 Furosemide [Lasix*] 40 mg PO BIDL 30 Days #60 tab 07/24/22 Insulin Glargine,Hum.rec.anlog [Lantus Solostar] 25 unit SQ DAILY #15 ml 07/24/22 Spironolactone [Aldactone*] 25 mg PO DAILY #30 tab 07/24/22 guaiFENesin [Robitussin 100MG/5ML*] 5 ml PO QID PRN #237 ml 07/24/22 metOLazone [Zaroxolyn*] 2.5 mg PO DAILY #30 tab 07/24/22 - Past Medical/Surgical History Diabetic: Yes -: hypertension -: hyperlipidemia -: Atrial fibrillation -: IDDM -: AR -: heart stents Psychosocial/ Personal History: Patient is . - Family History Brother -: Heart disease, Hypertension - Social History Smoking Status: Former smoker Alcohol use: Yes CD- Drugs: No Caffeine use: No Place of Residence: Home Review of Systems General: Weakness, Malaise Eyes: Unremarkable ENT: Throat Pain Respiratory: Cough, Shortness of Breath, SOB with Excertion, Other (Chest tightness) Cardiovascular: Edema Gastrointestinal: Distention Genitourinary: Unremarkable Musculoskeletal: Pedal edema, Other (Generalized edema) Integumentary: Other (Bilateral lower extremity wounds) Neurological: Weakness Lymphatics: Unremarkable Physical Examination - Physical Exam General: Alert, Oriented x3, Cooperative, Mild distress HEENT: Atraumatic, PERRLA, Mucous membr. moist/pink, EOMI, Sclerae nonicteric Neck: Supple, 2+ carotid pulse no bruit, No LAD, Without JVD or thyroid abnormality Respiratory: Diminished, Expiratory wheezes Cardiovascular: Edema, Irregular heart rate/rhythm Capillary refill: <2 Seconds Gastrointestinal: Normal bowel sounds, No tenderness, Distended Musculoskeletal: No tenderness, Swelling Integumentary: Other (Bilateral extremity wounds) Neurological: Normal speech, Normal tone, Normal affect Lymphatics: No axilla or inguinal lymphadenopathy - Studies Laboratory Data (last 24 hrs) 01/24/23 12:47: Sodium 139, Potassium 2.8 L, BUN 26 H, Creatinine 1.96 H, Glucose 94, Magnesium 1.6 01/24/23 10:54: PT 12.7 H, INR 1.15 01/24/23 10:54: WBC 6.60, Hgb 15.9, Hct 50.6 H, Plt Count 315 Microbiology Data (last 24 hrs): 01/24/23 09:25 Nasopharnyx Influenza Type A Antigen Screen - Final 01/24/23 09:25 Nasopharnyx Influenza Type B Antigen Screen - Final Assessment and Plan - Plan --Pneumonia. Patient placed on antibiotics, neb treatment with albuterol\Atrovent. Continue O2 therapy. --Influenza A. Patient placed on Tamiflu. Continue droplet and contact precautions. --Acute on chronic COPD exacerbation. Continue current treatment regimen. --Acute respiratory failure. Likely secondary to pneumonia, COPD exacerbation and influenza A. Patient's O2 sat was 86% on room air at PCPs office. Continue current treatment regimen. --Acute on chronic systolic CHF exacerbation. Continue diuresis with Lasix. Daily weight. Cardiology consulted. Continue home medications. Further m anagement per job training supervisor. DM2. BS monitoring with sliding scale insulin. --Elevated troponin. Likely secondary to demand ischemia. Cardiology on board. Telemetry to monitor for any significant arrhythmia. We await further recommendation from job training supervisor. --Atrial fibrillation. Continue Eliquis. Telemetry to monitor for any malignant arrhythmia. --Hyperlipidemia. Continue statin. --History of AR\CAD with stent. Continue aspirin, Plavix, Eliquis and statin --GERD. Continue Protonix --ANNEMARIE. Continue ferrous sulfate -- Hypertension. Poorly controlled. Continue home medications and labetalol as needed. --Hypokalemia. Replete as needed. --KAITLIN on CKD 3B. Likely secondary to cardiorenal syndrome. We will continue IV Lasix. We will continue to monitor renal functions. --Bilateral lower extremity wound. Wound care consult initiated. Continue supportive care. ---DVT prophylaxis with Eliquis. Discharge Plan: Home Plan to discharge in: Greater than 2 days - Advance Directives Does patient have a Living Will: No Does patient have a Durable POA for Healthcare: Yes - Code Status/Comfort Care Code Status Assessed: Yes Physician Review: Patient Assessed, Agree with Above Assessment and Plan Critical Care: No
--- NOTE | 2023-01-24 18:45 | RAD REPORT ---
EXAM DESCRIPTION: NM - Vent Perfusion VQ Scan - 01/24/2023 6:37 pm CLINICAL HISTORY: DYSPNEA COMPARISON: Vent Perfusion VQ Scan dated 07/21/2022 TECHNIQUE: 16.7mCi Xe-133 gas inhaled and 6.5mCi Tc-MAA IV. Planar ventilation scan was performed in posterior projection after Xe-133 gas inhalation (wash-in, e quilibrium, and wash-out phases) followed by perfusion scan with Tc-MAA IV in multiple projections. Examination is correlated with recent chest radiograph. FINDINGS: Normal ventilation with appropriate wash-out and no significant air-trapping. No mismatched segmental perfusion defect. IMPRESSION: Low probability of acute pulmonary embolism.
[2023-01-24 19:45] LABS: Magnesium 1.6 mg/dL (1.6-2.4); Thyroid Stimulating Hormone 1.99 uIU/mL (0.358-3.740)
[2023-01-24] MEDS: ALBUTEROL 2.5 MG/3 ML NEB SOL NEB SCH (19:50)
[2023-01-24] MEDS: IPRATROPIUM BROM 0.5MG/2.5ML NEB SCH (19:50)
[2023-01-24] MEDS: OSELTAMIVIR 30 MG CAP PO SCH (21:00)
[2023-01-24] MEDS ORDERED: OSELTAMIVIR 30 MG CAP PO SCH (21:00)
[2023-01-24] MEDS ORDERED: GLUCAGON 1 MG/VIAL IM PRN (21:42)
[2023-01-24] MEDS ORDERED: D50W 25 GM/50 ML SYRINGE IV PRN (21:42)
[2023-01-24] MEDS ORDERED: D10W 125 ML IV PRN (21:49)
[2023-01-24 22:04] VITALS: BMI 28.3
[2023-01-24] MEDS: APIXABAN 2.5 MG TABLET PO SCH (22:42)
[2023-01-25] MEDS: IPRATROPIUM BROM 0.5MG/2.5ML NEB SCH ×4 (01:45→20:00)
[2023-01-25] MEDS: ALBUTEROL 2.5 MG/3 ML NEB SOL NEB SCH ×4 (01:45→20:30)
[2023-01-25 03:29] LABS: Absolute Lymphocytes (CBC) 1.4 K/uL (0.7-4.9); Hematocrit 45.6 % (39.6-49.0); Lymphocytes % 16.9 % (15.3-44.8); MCV 84.5 fL (80-100); MPV 8.2 fL (7.6-11.3)
[2023-01-25 04:05] LABS: Potassium 3.5 mEq/L (3.5-5.1)
[2023-01-25] MEDS: LABETALOL 20 MG/4ML SYRINGE IV PRN (06:08)
[2023-01-25] MEDS: INSULIN -REGULAR HUMAN 50 UNIT/0.5 ML ML SQ SCH ×4 (07:30→21:00)
[2023-01-25 07:36] LABS: Specific Gravity 1.017 (1.005-1.030); Urine Bilirubin NEGATIVE (Negative); Urine Blood 1+ (Negative); Urine Clarity Clear (Clear); Urine Color Light-Yellow (Yellow); Urine Glucose NEGATIVE (Negative); Urine Protein 4+ (Over) (Negative); Urine Urobilinogen Normal (Normal)
[2023-01-25] MEDS ORDERED: POTASSIUM 25 MEQ EFFERV TAB PO ONE (09:00)
[2023-01-25] MEDS: ASPIRIN 81 MG CHEWABLE TABLET PO SCH (09:14)
[2023-01-25] MEDS: OSELTAMIVIR 30 MG CAP PO SCH ×2 (09:14→22:13)
[2023-01-25] MEDS: APIXABAN 2.5 MG TABLET PO SCH ×2 (09:14→22:13)
[2023-01-25] MEDS: CEFTRIAXONE 1,000 MG in NA CHLORIDE 0.9% 50 ML IVPB SCH (09:15)
[2023-01-25] MEDS: AZITHROMYCIN IV 500 MG in NA CHLORIDE 0.9% 250 ML IVPB SCH (09:15)
[2023-01-25] MEDS: FUROSEMIDE 40 MG/4 ML VIAL IV SCH ×2 (09:15→17:04)
--- NOTE | 2023-01-25 11:55 | CON ---
Date of Consultation: 01/25/2023 Reason For Consultation: Elevated BUN and creatinine, fluid management. 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 The patient started to have increased leg swelling and shortness of breath. For that reason, reported to the primary care. Primary care sent him to the hospital. The patient also complaining from fatigue and weakness. The patient has orthopnea, 2 pillows. According to the patient, the patient has been taking his Lasix, but not as he should and he does not remember the dosage. Upon arrival to the hospital, the patient found to have over volume, hypoxemic with anasarca and elevation in BUN and creatinine. For that reason, we have been consulted. Past Medical History: Includes; 1. Diabetes complicated with neuropathy, nephropathy, and retinopathy. 2. Hypertension. 3. Hyperlipidemia. 4. AFib. 5. CAD. 6. Status post PTCA complicated with congestive heart failure. Past Surgical History: Includes PTCA. Family History: Positive for CAD and hypertension. Social History: Ex-smoker. Occasional alcohol. Denied drugs abuse. Home Medications: Include; 1. Amlodipine. 2. Atorvastatin. 3. Plavix. 4. Jardiance. 5. Hydralazine. 6. Losartan. 7. Sotalol. 8. Pantoprazole. 9. Eliquis. 10. Lasix b.i.d. 40. 11. Spironolactone. Review of Systems: Head and Neck: No red eye. No ear pain. GI: No nausea. No vomiting. : No polyuria. No dysuria. No hematuria. Form Maker Plaster: Not applicable. Respiratory: Has shortness of breath. Has leg swelling. Cardiovascular: Has leg swelling. Has orthopnea. Endocrine: No polydipsia. Skin: No rash. Neuro: Has neuropathy. Musculoskeletal: Has generalized fatigue. Physical Examination: Vital Signs: When I saw the patient; blood pressure of 181/98, pulse of 93, afebrile. Chest: Crackles bilateral base. Heart: S1, S2. Regular. Systolic murmur. Abdomen: Soft, nontender. Extremity: +1 edema. Neuro: Alert. No focality. Laboratory Data: Chest x-ray, cardiomegaly with congestion bilateral compared to old chest x-ray looked worsen. The patient had V/Q scan pending. Echocardiogram shows aortic valve stenosis. WBC 8.1, H and H 14.3/45.6. Sodium 142, potassium 3.5, bicarb 31, BUN 25, creatinine 2, GFR of 33, calcium of 9. BNP 14,422. Troponin elevated. Reviewing the record for the patient back in November 2022; creatinine 1.9 and GFR of 37. Assessment And Plan: 1. Acute kidney injury on chronic kidney disease, mostly secondary to cardiorenal, over volume. I am going to go ahead and increase his Lasix to b.i.d. 40 mg and we will monitor the patient, hold losartan. I am going to go ahead and send for basic workup and we will follow up the patient. 2. Hypertension, poorly controlled. We will utilize blood pressure for more diuresis. I am going to go ahead and start the patient on carvedilol, nitroglycerin. Continue Lasix. Keep holding losartan. 3. Bronchitis, chronic obstructive pulmonary disease exacerbation. Continue current treatment. Follow up with primary. 4. Congestive heart failure exacerbation. We will optimize fluid status of the patient. Time spent examining the patient [id number], reviewing data, lab and radiology, placing order, discussing the case with the patient, discussing the case with the prepared foods production team member including hospitalist more than 65 minutes. OSVALDO Voice ID: [id number] Report ID: [id number] SHANTANU
[2023-01-25] MEDS: NITROGLYCERIN 0.2 MG/HR (5 MG) PATCH TD SCH (12:17)
--- NOTE | 2023-01-25 13:36 | RAD REPORT ---
EXAM DESCRIPTION: US - Renal Ultrasound-Complete - 01/25/2023 1:30 pm CLINICAL HISTORY: KAITLIN COMPARISON: Abdomen Exam Complete dated 07/29/2020 FINDINGS: Both kidneys are normal in size, shape and echotexture. The right kidney measures 9.8 cm. No hydronephrosis, focal mass or perinephric fluid. The left kidney measures 10.3 cm. 16 mm anechoic lesion in the lower pole left kidney consistent with a small either renal cortical renal sinus cyst. This is of no clinical significance. The urinary bladder is incompletely distended without gross abnormality seen. IMPRESSION: No evidence of hydronephrosis. Simple left renal cyst.
--- NOTE | 2023-01-25 14:43 | P.PN ---
Subjective Date of Service: 01/25/23 Chief Complaint: SOB, Cough No acute events overnight. He reports that his shortness of breath is slightly better today compared to yesterday. He remains on 3.5 L of oxygen. He denies any chest pain or palpitations. Review of Systems 10-point ROS is otherwise unremarkable Respiratory: Cough, Shortness of Breath Physical Examination - Vital Signs Temperature: 98.1 F Blood Pressure: 175/99 Pulse: 80 Respirations: 17 Pulse Ox (%): 90 - Physical Exam General: Alert, In no apparent distress, Oriented x3 HEENT: Atraumatic, Mucous membr. moist/pink, Sclerae nonicteric Neck: JVD not distended Respiratory: Diminished, Rhonchi/gurgles (faint, scattered) Cardiovascular: No edema, Regular rate/rhythm, No gallops, No rubs, No murmurs Gastrointestinal: Normal bowel sounds, Soft and benign, Non-distended, No tenderness, No rebound, No guarding Musculoskeletal: No clubbing Integumentary: No rashes Neurological: Normal speech, Normal affect - Studies Microbiology Data (last 24 hrs): 01/24/23 09:25 Nasopharnyx Influenza Type A Antigen Screen - Final 01/24/23 09:25 Nasopharnyx Influenza Type B Antigen Screen - Final Assessment And Plan - Plan # Acute Hypoxic Respiratory Failure - likely secondary to Acute on Chronic Congestive Heart Failure with Unknown Ejection Fraction and Influenza A Infection # Hypertensive Urgency # Moderate-Severe Aortic Stenosis At PCP's office, SpO2 was 86 % on room air. - Evaluation thus far: - Procalcitonin = <0.05 - unlikely to be bacterial pneumonia - will obtain CT chest - NT-Pro BNP = 14,183 - Influenza A = positive - VBG = pending - Chest x-ray = "stable bilateral patchy airspace opacities. Stable cardiomegaly." - V/Q scan = "low probability of acute pulmonary embolism." - Management plan: - Consulted Cardiology and spoke with Dr. Muñoz - recommendations appreciated - Ordered transthoracic echocardiogram - Diuresis with IV furosemide - Continue oseltamivir - Continue home carvedilol, hydralazine - Consulted Respiratory Therapy - Supplemental oxygen to maintain SpO2 > 92% - Continue ceftriaxone + azithromycin pending CT chest - Encouraged incentive spirometry - Daily weights - Strict I/O - Cardiac diet, 1.5 L fluid restriction, 2 g Na restriction # Severe Viral Sepsis likely secondary to Influenza A Infection - POA He met sepsis criteria based on HR > 90 bpm and RR > 20 breaths/min, and the suspected source is influenza A. Severe sepsis is suspected due to concern for tissue hypoperfusion/organ dysfunction based on lactic acid > 2 mmol/L. - Sepsis order set was initiated - Lactate trend: 2.2 -> 1.8 - Blood cultures drawn before antibiotics were given - Broad spectrum antimicrobials started: Ceftriaxone + Azithromycin + Oseltamivir - In regards to fluids: - 30 mL/kg of IV fluids was not administered given SBP > 90, MAP > 65, lactic acid < 4 # Suspected Type II Non-ST Segment Elevation Myocardial Infarction (Demand Ischemia) due to above # Coronary Artery Disease s/p PCI # Dyslipidemia - Evaluation thus far: - EKG: without reported STEMI criteria, trend - Serial troponin: 143.7 -> 155.0 -> 126.6 - Ordered transthoracic echocardiogram - Management plan: - Consulted Cardiology and spoke with Dr. Muñoz - recommendations appreciated - He believes troponin leak is secondary to demand ischemia - Continue home aspirin, carvedilol - Started atorvastatin - Hold TESSA-inhibitor/ARB given decreased renal function # KDIGO Stage I Acute Kidney Injury on Chronic Kidney Disease Stage III # Simple Left Renal Cyst - Consulted Nephrology - recommendations appreciated - Creatinine =1.96 -> 2.08 (baseline creatinine ~1.6-1.7) - Renal US = "no evidence of hydronephrosis. Simple left renal cyst." - Urinalysis = 4+ protein - IV diuretics as mentioned above - Monitor creatinine and urine output - Renally dose medications # Chronic Atrial Fibrillation - Continue home carvedilol, apixaban # Bilateral Lower Extremity Wounds - Consulted wound care # Gastroesophageal Reflux Disease - Continue home pantoprazole Modesto Gotti M.D.
--- NOTE | 2023-01-25 16:18 | RAD REPORT ---
EXAM DESCRIPTION: CT - Thorax Wo Con - 01/25/2023 3:33 pm CLINICAL HISTORY: Cough/abnormal chest x-ray COMPARISON: January 24, 2023 chest x-ray TECHNIQUE: Computed axial tomography of the chest was obtained. Contrast was not requested. All CT scans are performed using dose optimization technique as appropriate and may include automated exposure control or mA/KV adjustment according to patient size. FINDINGS: The evaluation of mediastinum, chase and vessels is limited secondary to lack of IV contras t administration. Mild bilateral interstitial lung opacities Mild bilateral hilar and mediastinal lymphadenopathy. Small bilateral pleural effusions. No pericardial effusion Cardiomegaly. Coronary arterial calcifications IMPRESSION: These findings probably indicate mild CHF Mild bilateral hilar mediastinal lymphadenopathy nonspecific but probably reactive in nature. Follow up CT in 3 months recommended for re-evaluation
--- NOTE | 2023-01-25 16:49 | EKG ---
Test Date: 2023-01-24 Test Time: 09:09:03 Bottle Caser: AKIKO MEASUREMENT RESULTS: Intervals: Rate: 86 WY: 162 QRSD: 92 QT: 408 QTc: 488 [place]: P: 74 WY: 162 QRS: -62 T: 78 INTERPRETIVE STATEMENTS: Sinus rhythm with occasional premature ventricular complexes Left axis deviation Nonspecific ST and T wave abnormality Prolonged QT Abnormal ECG Compared to ECG 01/24/2023 09:07:22 No significant changes Electronically Signed On 01-25-23 16:47:27 CDT by Chad Alvarez
--- NOTE | 2023-01-25 16:49 | EKG ---
Test Date: 2023-01-24 Test Time: 09:07:22 Medical Office Manager: AKIKO MEASUREMENT RESULTS: Intervals: Rate: 88 NM: 156 QRSD: 98 QT: 404 QTc: 488 [place]: P: 69 NM: 156 QRS: -48 T: 110 INTERPRETIVE STATEMENTS: Sinus rhythm with occasional premature ventricular complexes Left axis deviation Nonspecific ST and T wave abnormality Prolonged QT Abnormal ECG Compared to ECG 11/18/2022 18:19:55 Ventricular premature complex(es) now present Left-axis deviation now present Left anterior fascicular block no longer present ST (T wave) deviation still present Electronically Signed On 01-25-23 16:47:30 CDT by Chad Alvarez
--- NOTE | 2023-01-25 20:04 | CON ---
Date of Consultation: 01/25/2023 Reason For Consultation: Elevated troponin and congestive heart failure. History Of Present Illness: Mr. Kearns is a 72-year-old black male, very well known to us from [facility] office visits and admissions. He has wmhwduwm-qk-mrurwy aortic stenosis. He has pulmonary hyper tension. He has renal insufficiency. Catheterization in April of last year showed minimal coronary a rtery disease. He has diastolic dysfunction. He has a history of wound infection, paroxysmal atrial fibrillation, COPD, dyslipidemia, hypertension, diabetes. Came in with congestive heart failure, PN D, orthopnea, pedal edema. Denied any palpitation or syncope. Denied any fever or chills. His trop onin was 126. His creatinine is 2.08. His BNP was 14,000. Past Medical History: As stated above. Allergies: HE IS ALLERGIC TO PENICILLIN. Medications: His present medications include Lasix, Eliquis, inhalers, antibiotics, insulin, and Las ix. Review of Systems: Negative. Social History: Negative. Family History: Negative. Physical Examination: Vital Signs: Stable. He was in atrial fibrillation, rate controlled. HEENT: Negative. Neck: Supple with no bruit. Chest: Reveals rales both bases. Cardiac: Revealed aortic stenosis, murmur with S4 gallop. Abdomen: Benign. Extremities: Revealed no clubbing, cyanosis, or edema. Diagnostic Data: As stated earlier. Impression And Plan: 1.Acute on chronic diastolic congestive heart failure. 2.Qklihezk-lq-gihesh aortic stenosis. 3.Chronic obstructive pulmonary disease. 4.Paroxysmal atrial fibrillation, on Eliquis. 5.Diabetes, well controlled. 6.Wound infection secondary to diabetes. 7.Dyslipidemia, well controlled. 8.Hypertension, well controlled. 9.Diabetes. I will for now continue aggressive diuresis at home. We should consider a low-dose bet a-abbey. He is not a good candidate for TESSA inhibitor or ARBs. Nephrology consultation may be jody sonable. We will continue to follow. PRESLEY/LORNE Voice ID: [id number] Report ID: [id number]
[2023-01-25] MEDS: HYDRALAZINE HCL 25 MG TABLET PO SCH (22:13)
[2023-01-25] MEDS: carvediloL 6.25 MG TAB PO SCH (22:13)
[2023-01-25] MEDS: ATORVASTATIN 40 MG TAB PO SCH (22:13)
[2023-01-26] MEDS: IPRATROPIUM BROM 0.5MG/2.5ML NEB SCH ×4 (02:00→19:50)
[2023-01-26] MEDS: ALBUTEROL 2.5 MG/3 ML NEB SOL NEB SCH ×4 (02:20→19:50)
[2023-01-26 03:59] LABS: Albumin 1.6 g/dL (3.4-5.0); Magnesium 1.8 mg/dL (1.6-2.4); Uric Acid 9.9 mg/dL (3.5-7.2)
[2023-01-26 04:14] LABS: Thyroid Stimulating Hormone 4.69 uIU/mL (0.358-3.740)
[2023-01-26] MEDS: INSULIN -REGULAR HUMAN 50 UNIT/0.5 ML ML SQ SCH ×4 (07:30→20:16)
[2023-01-26] MEDS: ASPIRIN 81 MG CHEWABLE TABLET PO SCH (09:09)
[2023-01-26] MEDS: APIXABAN 2.5 MG TABLET PO SCH ×2 (09:09→20:07)
[2023-01-26] MEDS: OSELTAMIVIR 30 MG CAP PO SCH (09:09)
[2023-01-26] MEDS: HYDRALAZINE HCL 25 MG TABLET PO SCH ×3 (09:09→20:08)
[2023-01-26] MEDS: carvediloL 6.25 MG TAB PO SCH (09:09)
[2023-01-26] MEDS: FUROSEMIDE 40 MG/4 ML VIAL IV SCH ×3 (09:10→20:08)
[2023-01-26] MEDS: CEFTRIAXONE 1,000 MG in NA CHLORIDE 0.9% 50 ML IVPB SCH (09:11)
[2023-01-26] MEDS: AZITHROMYCIN IV 500 MG in NA CHLORIDE 0.9% 250 ML IVPB SCH (09:12)
[2023-01-26] MEDS: NITROGLYCERIN 0.2 MG/HR (5 MG) PATCH TD SCH (10:27)
--- NOTE | 2023-01-26 11:34 | RAD REPORT ---
EXAM DESCRIPTION: RAD - Chest Single View - 01/26/2023 11:26 am CLINICAL HISTORY: overload Chest pain. COMPARISON: Chest Single View dated 01/24/2023; Chest Single View dated 07/21/2022; Chest Single View dated 07/19/2022; Chest Single View dated 07/17/2022; Thorax Wo Con dated 01/25/2023 FINDINGS: Portable technique limits examination quality. Mild interstitial pulmonary edema seen. The heart is moderately enlarged. Trace pleural fluid. IMPRESSION: Mild CHF versus volume overload.
--- NOTE | 2023-01-26 13:34 | PN ---
Date of Progress Note: 01/26/2023 Subjective: The patient came to the hospital with acute kidney injury and anasarca. With shortness of breath, the patient was started on aggressive diuresis. The patient's kidney function has decline d. Physical Examination: Vital Signs: When I saw the patient; blood pressure 172/92, pulse of 72, afebrile. The patient had good urine output of 500. Chest: Cardiomegaly with congestion, bilateral, looked to me slightly better than before. Heart: S1, S2. Systolic murmur. Abdomen: Soft, nontender. Extremity: +2 edema, more prominent on the left side. Neurological: Alert, oriented x3. No focal. Laboratory Data: Chest x-ray; cardiomegaly with congestion, bilateral, more prominent on the right, looked slightly better. Hemoglobin 14.3. Sodium 135, potassium 4, bicarb 29, BUN 38, creatinine ivania nding up 2.5, calcium 8.2, phosphorus 4, magnesium 1.8. Uric acid 9.9. TSH 4.6. PTH 458. Renal ul trasound; 9.8/10.3, no hydronephrosis, simple renal cyst on the left side. Assessment And Plan: 1.Acute kidney injury on chronic kidney disease, still on the over volume side, worsening on the kid mauricio function. I am going to go ahead and increase the Lasix to t.i.d. to establish better volume con trol for the patient and we will continue to monitor the patient. 2.Hypertension, poorly controlled. We will try to utilize blood pressure, increase Lasix to t.i.d., increase carvedilol to 12.5 to establish better volume control, and we will go ahead and increase hy dralazine to t.i.d. and we will follow up. 3.Anasarca secondary to cardiorenal. Hypothyroidism has been ruled out. We still waiting for PC ra ethan. Given the worsening in kidney function, I am going to go ahead and send for full serology as th e patient not used to have nephrotic range proteinuria even though that he has diabetes which can exp yue it. 4.Congestive heart failure with exacerbation. We will try to optimize the fluid status for the patient. 5.Secondary hyperparathyroidism. Start the patient on calcitriol. MA/JENIL Voice ID: [id number] Report ID: [id number]
[2023-01-26] MEDS: levoFLOXacin 750 MG TAB PO SCH (13:49)
[2023-01-26] MEDS: CALCITROL 0.25 MCG CAP PO SCH (13:50)
[2023-01-26] MEDS: carvediloL 12.5 MG TAB PO SCH (20:07)
[2023-01-26] MEDS: ATORVASTATIN 40 MG TAB PO SCH (20:07)
--- NOTE | 2023-01-26 20:11 | P.PN ---
Subjective Date of Service: 01/26/23 Chief Complaint: SOB, Cough No acute events overnight. He reports that his shortness of breath is much improved. Despite improvement in his respiratory symptoms, his creatinine continues to up-trend. He denies any chest pain or palpitations. Review of Systems 10-point ROS is otherwise unremarkable Physical Examination - Vital Signs Temperature: 97.4 F Blood Pressure: 171/94 Pulse: 80 Respirations: 16 Pulse Ox (%): 92 Assessment And Plan - Plan - Physical Exam General: Alert, In no apparent distress, Oriented x3 HEENT: Atraumatic, Mucous membr. moist/pink, Sclerae nonicteric Neck: JVD not distended Respiratory: Diminished, Rhonchi/gurgles (faint, scattered) Cardiovascular: No edema, Regular rate/rhythm, systolic murmur Gastrointestinal: Normal bowel sounds, Soft, Non-distended, No tenderness Musculoskeletal: No clubbing Integumentary: No rashes Neurological: Normal speech, Normal affect # Acute Hypoxic Respiratory Failure - likely secondary to Acute on Chronic Congestive Heart Failure with Unknown Ejection Fraction and Influenza A Infection # Hypertensive Urgency # Moderate-Severe Aortic Stenosis At PCP's office, SpO2 was 86 % on room air. - Evaluation thus far: - Procalcitonin = <0.05 - unlikely to be bacterial pneumonia - CT chest = "these findings probably indicate mild CHF. Mild bilateral hilar mediastinal lymphadenopathy nonspecific but probably reactive in nature. Follow up CT in 3 months recommended for re-evaluation" - NT-Pro BNP = 14,183 - Influenza A = positive - VBG = pending - Chest x-ray = "stable bilateral patchy airspace opacities. Stable cardiomegaly." - V/Q scan = "low probability of acute pulmonary embolism." - Management plan: - Consulted Cardiology and spoke with Dr. Muñoz - recommendations appreciated - Transthoracic echocardiogram pending - Diuresis with IV furosemide - Continue oseltamivir - Continue home carvedilol, hydralazine - Consulted Respiratory Therapy - Supplemental oxygen to maintain SpO2 > 92% - Continue ceftriaxone + azithromycin pending CT chest - Encouraged incentive spirometry - Daily weights - Strict I/O - Cardiac diet, 1.5 L fluid restriction, 2 g Na restriction # Severe Viral Sepsis likely secondary to Influenza A Infection - POA He met sepsis criteria based on HR > 90 bpm and RR > 20 breaths/min, and the suspected source is influenza A. Severe sepsis is suspected due to concern for tissue hypoperfusion/organ dysfunction based on lactic acid > 2 mmol/L. - Sepsis order set was initiated - Lactate trend: 2.2 -> 1.8 - Blood cultures drawn before antibiotics were given - Broad spectrum antimicrobials started: Ceftriaxone + Azithromycin + Oseltamivir - In regards to fluids: - 30 mL/kg of IV fluids was not administered given SBP > 90, MAP > 65, lactic acid < 4 # Suspected Type II Non-ST Segment Elevation Myocardial Infarction (Demand Ischemia) due to above # Coronary Artery Disease s/p PCI # Dyslipidemia - Evaluation thus far: - EKG: without reported STEMI criteria, trend - Serial troponin: 143.7 -> 155.0 -> 126.6 - Ordered transthoracic echocardiogram - Management plan: - Consulted Cardiology and spoke with Dr. Muñoz - recommendations appreciated - He believes troponin leak is secondary to demand ischemia - Continue home aspirin, carvedilol - Started atorvastatin - Hold TESSA-inhibitor/ARB given decreased renal function # KDIGO Stage I Acute Kidney Injury on Chronic Kidney Disease Stage III # Simple Left Renal Cyst - Consulted Nephrology and spoke with Dr. Mitchell - recommendations appreciated - Creatinine = 1.96 -> 2.08 -> 2.57 (baseline creatinine ~1.6-1.7) - Renal US = "no evidence of hydronephrosis. Simple left renal cyst." - Urinalysis = 4+ protein - IV diuretics as mentioned above - Monitor creatinine and urine output - Renally dose medications # Chronic Atrial Fibrillation - Continue home carvedilol, apixaban # Bilateral Lower Extremity Wounds - Consulted wound care # Gastroesophageal Reflux Disease - Continue home pantoprazole Modesto Gotti M.D.
--- NOTE | 2023-01-26 21:40 | PN ---
Date of Progress Note: 01/26/2023 Patient came in with the acute on chronic diastolic congestive heart failure, moderate to severe aort ic stenosis. Patient had been receiving Lasix. He is on Eliquis, aspirin, inhalers, antibiotics. C reatinine has gone up to 2.57. We will need to keep an eye on that. Nephrology consultation is genna mmended. We will watch his I's and O's, creatinine, and weight. He is definitely feeling better, re gardless. Case to be discussed further with Dr. Gotti. No change in therapy for now. NB/MODL Voice ID: [id number] Report ID: [id number]
[2023-01-27] MEDS: IPRATROPIUM BROM 0.5MG/2.5ML NEB SCH ×4 (01:45→21:00)
[2023-01-27] MEDS: ALBUTEROL 2.5 MG/3 ML NEB SOL NEB SCH ×4 (01:45→21:00)
[2023-01-27] MEDS: LABETALOL 20 MG/4ML SYRINGE IV PRN ×2 (05:08→22:25)
[2023-01-27 07:21] LABS: Albumin 1.8 g/dL (3.4-5.0); Magnesium 1.9 mg/dL (1.6-2.4); Potassium 3.9 mEq/L (3.5-5.1)
[2023-01-27 08:36] LABS: Rheumatoid Factor POS (NEG); Rheumatoid Factor Titer 1:4 (32 RF IU/mL)
[2023-01-27] MEDS: ASPIRIN 81 MG CHEWABLE TABLET PO SCH (08:39)
[2023-01-27] MEDS: INSULIN -REGULAR HUMAN 50 UNIT/0.5 ML ML SQ SCH ×4 (08:39→21:00)
[2023-01-27] MEDS: HYDRALAZINE HCL 25 MG TABLET PO SCH ×3 (08:39→21:23)
[2023-01-27] MEDS: carvediloL 12.5 MG TAB PO SCH ×2 (08:39→21:23)
[2023-01-27] MEDS: OSELTAMIVIR 30 MG CAP PO SCH (08:40)
[2023-01-27] MEDS: NITROGLYCERIN 0.2 MG/HR (5 MG) PATCH TD SCH (08:40)
[2023-01-27] MEDS: MUPIROCIN 2% OINT 22GM TUBE TOP SCH (08:40)
[2023-01-27] MEDS: FUROSEMIDE 40 MG/4 ML VIAL IV SCH ×3 (08:41→21:23)
[2023-01-27] MEDS: APIXABAN 2.5 MG TABLET PO SCH ×2 (10:57→21:23)
--- NOTE | 2023-01-27 12:40 | P.PN ---
Subjective Date of Service: 01/27/23 Chief Complaint: SOB, Cough Subjective: No new changes Physical Examination - Vital Signs Temperature: 98.0 F Blood Pressure: 175/91 Pulse: 74 Respirations: 18 Pulse Ox (%): 92 - Physical Exam General: Other (appears as his stated age) HEENT: Atraumatic, Normocephalic Neck: Supple, JVD not distended Respiratory: Other (symmetric chest expansion) Cardiovascular: No rubs, No murmurs Gastrointestinal: Soft and benign, No guarding Musculoskeletal: No clubbing Integumentary: No warmth Neurological: Normal tone Urinary: Other (no bladder distention) External genitalia: Deferred Rectal: Deferred Assessment And Plan - Plan 1. Acute kidney injury 2/2 CRS1, on chronic kidney disease. SCr improved to 2.4. Cont lasix. monitor input and output and renal panel. 2. Hypertension. BP above goal. BP meds adjusted. 3. Anasarca secondary to cardiorenal. continue Lasix. Follow up random UPCR. Follow-up proteinuria workup. 4. Aortic stenosis. TTE on and showed moderate to severe aortic stenosis. 5. Secondary hyperparathyroidism. On calcitriol. Physician Review: Patient Assessed, Agree with Above Assessment and Plan
--- NOTE | 2023-01-27 19:54 | P.PN ---
Subjective Date of Service: 01/27/23 Chief Complaint: SOB, Cough No acute events overnight. He reports that he feels well and would like to be discharged home. His creatinine is stable, but remains elevated. Per Nephrology, he would likely benefit from additional diuresis prior to discharge. Mr. Kearns is in agreement with this plan. He denies any chest pain, shortness of breath, or palpitations. Review of Systems 10-point ROS is otherwise unremarkable Cardiovascular: Edema Physical Examination - Vital Signs Temperature: 98.1 F Blood Pressure: 174/94 Pulse: 72 Respirations: 20 Pulse Ox (%): 92 Assessment And Plan - Plan - Physical Exam General: Alert, In no apparent distress, Oriented x3 HEENT: Atraumatic, Mucous membr. moist/pink, Sclerae nonicteric Neck: JVD not distended Respiratory: Diminished, Rales (faint, scattered) Cardiovascular: 1+ bilateral lower extremity edema, Regular rate/rhythm, syst olic murmur Gastrointestinal: Normal bowel sounds, Soft, Non-distended, No tenderness Musculoskeletal: No clubbing Integumentary: No rashes Neurological: Normal speech, Normal affect # Acute Hypoxic Respiratory Failure - likely secondary to Acute on Chronic Congestive Heart Failure with Unknown Ejection Fraction and Influenza A Infection # Hypertensive Urgency # Moderate-Severe Aortic Stenosis At PCP's office, SpO2 was 86 % on room air. - Evaluation thus far: - Procalcitonin = <0.05 - unlikely to be bacterial pneumonia - CT chest = "these findings probably indicate mild CHF. Mild bilateral hilar mediastinal lymphadenopathy nonspecific but probably reactive in nature. Follow up CT in 3 months recommended for re-evaluation" - NT-Pro BNP = 14,183 - Influenza A = positive - VBG = pending - Chest x-ray = "stable bilateral patchy airspace opacities. Stable c ardiomegaly." - V/Q scan = "low probability of acute pulmonary embolism." - Management plan: - Consulted Cardiology and spoke with Dr. Muñoz - recommendations appreciated - Transthoracic echocardiogram pending - Diuresis with IV furosemide - Continue oseltamivir - Continue home carvedilol, hydralazine - Consulted Respiratory Therapy - Supplemental oxygen to maintain SpO2 > 92% - Continue ceftriaxone + azithromycin pending CT chest - Encouraged incentive spirometry - Daily weights - Strict I/O - Cardiac diet, 1.5 L fluid restriction, 2 g Na restriction # Severe Viral Sepsis likely secondary to Influenza A Infection - POA He met sepsis criteria based on HR > 90 bpm and RR > 20 breaths/min, and the suspected source is influenza A. Severe sepsis is suspected due to concern for tissue hypoperfusion/organ dysfunction based on lactic acid > 2 mmol/L. - Sepsis order set was initiated - Lactate trend: 2.2 -> 1.8 - Blood cultures drawn before antibiotics were given - Broad spectrum antimicrobials started: Ceftriaxone + Azithromycin + Oseltamivir - In regards to fluids: - 30 mL/kg of IV fluids was not administered given SBP > 90, MAP > 65, lactic acid < 4 # Suspected Type II Non-ST Segment Elevation Myocardial Infarction (Demand Ischemia) due to above # Coronary Artery Disease s/p PCI # Dyslipidemia - Evaluation thus far: - EKG: without reported STEMI criteria, trend - Serial troponin: 143.7 -> 155.0 -> 126.6 - Ordered transthoracic echocardiogram - Management plan: - Consulted Cardiology and spoke with Dr. Muñoz - recommendations appreciated - He believes troponin leak is secondary to demand ischemia - Continue home aspirin, carvedilol - Started atorvastatin - Hold TESSA-inhibitor/ARB given decreased renal function # KDIGO Stage I Acute Kidney Injury on Chronic Kidney Disease Stage III # Simple Left Renal Cyst - Consulted Nephrology - recommendations appreciated - Creatinine = 1.96 -> 2.08 -> 2.57 -> 2.41 (baseline creatinine ~1.6-1.7) - Renal US = "no evidence of hydronephrosis. Simple left renal cyst." - Urinalysis = 4+ protein - IV diuretics as mentioned above - Monitor creatinine and urine output - Renally dose medications # Chronic Atrial Fibrillation - Continue home carvedilol, apixaban # Bilateral Lower Extremity Wounds - Consulted wound care # Gastroesophageal Reflux Disease - Continue home pantoprazole Modesto Gotti M.D.
[2023-01-27] MEDS: ATORVASTATIN 40 MG TAB PO SCH (21:23)
--- NOTE | 2023-01-28 00:01 | PN ---
Date of Progress Note: 01/27/2023 Mr. Kearns has a very slow progress as far as his CHF is concerned. He has diastolic congestive hear t failure. He has [id number] aortic stenosis, normal ejection fraction. The problem is mil ncing his kidney function and his cardiac function and his compliance with medication. He should be on Lasix. He should be on a low-dose beta-abbey, avoiding TESSA inhibitors and ARB. case was discussed with Dr. Gotti. We will continue to follow him peripherally. PRESLEY/LORNE Voice ID: [id number] Report ID: [id number]
[2023-01-28] MEDS: ALBUTEROL 2.5 MG/3 ML NEB SOL NEB SCH ×4 (02:00→20:31)
[2023-01-28] MEDS: IPRATROPIUM BROM 0.5MG/2.5ML NEB SCH ×4 (02:00→20:31)
[2023-01-28] MEDS: LABETALOL 20 MG/4ML SYRINGE IV PRN (04:26)
[2023-01-28 07:12] LABS: Albumin 1.7 g/dL (3.4-5.0); Magnesium 1.8 mg/dL (1.6-2.4); Phosphorus 4.2 mg/dL (2.5-4.9); Potassium 3.8 mEq/L (3.5-5.1)
[2023-01-28] MEDS ORDERED: MAGNESIUM SULFATE 1 gm IVPB 1 GM/100 ML BAG IV ONE (08:38)
[2023-01-28] MEDS ORDERED: POTASSIUM 25 MEQ EFFERV TAB PO ONE (08:39)
[2023-01-28] MEDS: OSELTAMIVIR 30 MG CAP PO SCH (09:05)
[2023-01-28] MEDS: NITROGLYCERIN 0.2 MG/HR (5 MG) PATCH TD SCH (09:05)
[2023-01-28] MEDS: INSULIN -REGULAR HUMAN 50 UNIT/0.5 ML ML SQ SCH ×4 (09:06→22:12)
[2023-01-28] MEDS: FUROSEMIDE 40 MG/4 ML VIAL IV SCH ×3 (09:08→22:11)
[2023-01-28] MEDS: ASPIRIN 81 MG CHEWABLE TABLET PO SCH (09:08)
[2023-01-28] MEDS: HYDRALAZINE HCL 25 MG TABLET PO SCH ×3 (09:08→22:09)
[2023-01-28] MEDS: carvediloL 12.5 MG TAB PO SCH ×2 (09:08→22:10)
[2023-01-28] MEDS: APIXABAN 2.5 MG TABLET PO SCH ×2 (09:08→22:10)
[2023-01-28] MEDS: MUPIROCIN 2% OINT 22GM TUBE TOP SCH (09:09)
[2023-01-28] MEDS: CALCITROL 0.25 MCG CAP PO SCH (13:55)
[2023-01-28] MEDS: levoFLOXacin 750 MG TAB PO SCH (13:55)
[2023-01-28] MEDS ORDERED: BENZONATATE 100 MG CAP PO PRN (14:08)
--- NOTE | 2023-01-28 14:08 | P.PN ---
Subjective Date of Service: 01/29/23 Chief Complaint: SOB, Cough Subjective Pt with CKD basline cr 1.9, CHF , DM , admitted for SOB , treated for influenza today Bp elevated , will increase hydralazine cr stable wll consider to reduce lasix and add aldactone Physical exam General: Awake, NAD HEENT: Atraumatic, Normocephalic Neck: Supple, no elevated JVD Respiratory: CTAB Cardiovascular: No rubs, No murmurs Gastrointestinal: Soft and benign, Non-distended Musculoskeletal: No clubbing Integumentary: No warmth # Acute kidney injury on CKD 2/2 CRS1, SCr improved to 2.4. Cont lasix. monitor input and output and renal panel. US : no hydronephosis F/U serology W/U #hypokalemia will add aldactone #Diabetic CKD baseline cr 1.9 # Hypertension. BP above goal. will increase hydralazine # Anasarca secondary to cardiorenal. continue Lasix. Follow up random UPCR. Follow-up proteinuria workup. will add aldactone # Aortic stenosis. TTE on and showed moderate to severe aortic stenosis. 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 #Infleunza on Tamiflu Physical Examination - Vital Signs Temperature: 98.1 F Blood Pressure: 163/87 Pulse: 75 Respirations: 20 Pulse Ox (%): 90 Assessment And Plan Physician Review: Patient Assessed, Agree with Above Assessment and Plan
--- NOTE | 2023-01-28 19:19 | PN ---
Date of Progress Note: 01/28/2023 Subjective: Seen by bedside. Continues to cough and has shortness of breath, but with improvement. No fever. No palpitations. No orthopnea. All other systems were reviewed and they were negative. Physical Examination: Vital Signs: Reviewed. Head and Neck: Pupils are equal, reactive to light. Intact eye movements. No JVD. No cervical lym phadenopathy. Neck is supple. Thyroid is not enlarged. Lungs: Decreased breathing sounds with rhonchi bilaterally. No accessory muscle use or muscle retra ction. Heart: Irregular. No extra sounds. On the cardiac exam, there is aortic systolic ejection murmur s uggestive of aortic valve stenosis. Abdomen: Soft, nontender. Bowel sounds positive. No organomegaly. No masses or hernia. No rigidi ty or rebound. Extremities: Edema bilaterally. No clubbing or cyanosis. Intact pulses. Skin: No rash. Neurologic: Alert, awake, oriented x3. No acute focal deficits appreciated. Lymph Nodes: No cervical or axillary lymphadenopathy. Investigations: BUN 44, creatinine is 2.39. Assessment And Recommendations: 1.Acute hypoxic respiratory failure likely due to congestive heart failure exacerbation triggered by influenza and pneumonia. Continue supportive care. From the heart failure perspective, he appears to be stable. The ejection fraction is borderline at 45%. So, at this moment, I would agree with Tea arreaga. Carefully monitor BUN, creatinine, electrolytes and patient is being followed by Nephrology as well. 2.Moderate to severe aortic valve stenosis. By echo criteria, the aortic valve is not severe yet. This is being monitored on an outpatient basis. I will monitor the patient with you. /LORNE Voice ID: [id number] Report ID: [id number]
--- NOTE | 2023-01-28 21:05 | P.PN ---
Subjective Date of Service: 01/28/23 Chief Complaint: SOB, Cough No acute events overnight. He appears to be well clinically and he remains eager for discharge. His creatinine remains relatively unchanged. Per Nephrology, would like to monitor his creatinine for one additional day prior to discharge. Otherwise, he reports no concerns this morning. He denies any chest pain, shortness of breath, or palpitations. Review of Systems 10-point ROS is otherwise unremarkable Physical Examination - Vital Signs Temperature: 97.4 F Blood Pressure: 175/90 Pulse: 76 Respirations: 18 Pulse Ox (%): 94 Assessment And Plan - Plan - Physical Exam General: Alert, In no apparent distress, Oriented x3 HEENT: Atraumatic, Mucous membr. moist/pink, Sclerae nonicteric Neck: JVD not distended Respiratory: Diminished, Clear to auscultation bilaterally Cardiovascular: 1+ bilateral lower extremity edema, Regular rate/rhythm, systolic murmur Gastrointestinal: Normal bowel sounds, Soft, Non-distended, No tenderness Musculoskeletal: No clubbing Integumentary: No rashes Neurological: Normal speech, Normal affect # Acute Hypoxic Respiratory Failure - likely secondary to Acute on Chronic Congestive Heart Failure with Unknown Ejection Fraction and Influenza A Infection # Hypertensive Urgency # Moderate-Severe Aortic Stenosis At PCP's office, SpO2 was 86 % on room air. - Evaluation thus far: - Procalcitonin = <0.05 - unlikely to be bacterial pneumonia - CT chest = "these findings probably indicate mild CHF. Mild bilateral hilar mediastinal lymphadenopathy nonspecific but probably reactive in nature. Follow up CT in 3 months recommended for re-evaluation" - NT-Pro BNP = 14,183 - Influenza A = positive - VBG = pending - Chest x-ray = "stable bilateral patchy airspace opacities. Stable cardiomegaly." - V/Q scan = "low probability of acute pulmonary embolism." - CT chest = "These findings probably indicate mild CHF. Mild bilateral hilar mediastinal lymphadenopathy nonspecific but probably reactive in nature. Follow up CT in 3 months recommended for re-evaluation" - Management plan: - Consulted Cardiology and spoke with Dr. Muñoz - recommendations appreciated - Transthoracic echocardiogram pending - Diuresis with IV furosemide - Continue oseltamivir - Continue home carvedilol, hydralazine - Consulted Respiratory Therapy - Supplemental oxygen to maintain SpO2 > 92% - Continue ceftriaxone + azithromycin pending CT chest - Encouraged incentive spirometry - Daily weights - Strict I/O - Cardiac diet, 1.5 L fluid restriction, 2 g Na restriction # Severe Viral Sepsis likely secondary to Influenza A Infection - POA He met sepsis criteria based on HR > 90 bpm and RR > 20 breaths/min, and the suspected source is influenza A. Severe sepsis is suspected due to concern for tissue hypoperfusion/organ dysfunction based on lactic acid > 2 mmol/L. - Sepsis order set was initiated - Lactate trend: 2.2 -> 1.8 - Blood cultures drawn before antibiotics were given - Broad spectrum antimicrobials started: Ceftriaxone + Azithromycin + Oseltamivir - In regards to fluids: - 30 mL/kg of IV fluids was not administered given SBP > 90, MAP > 65, lactic acid < 4 # Suspected Type II Non-ST Segment Elevation Myocardial Infarction (Demand Ischemia) due to above # Coronary Artery Disease s/p PCI # Dyslipidemia - Evaluation thus far: - EKG: without reported STEMI criteria, trend - Serial troponin: 143.7 -> 155.0 -> 126.6 - Ordered transthoracic echocardiogram - Management plan: - Consulted Cardiology and spoke with Dr. Muñoz - recommendations appreciated - He believes troponin leak is secondary to demand ischemia - Continue home aspirin, carvedilol - Started atorvastatin - Hold TESSA-inhibitor/ARB given decreased renal function # KDIGO Stage I Acute Kidney Injury on Chronic Kidney Disease Stage III # Simple Left Renal Cyst - Consulted Nephrology - recommendations appreciated - Creatinine = 1.96 -> 2.08 -> 2.57 -> 2.41 -> 2.39 (baseline creatinine ~1.6- 1.7) - Renal US = "no evidence of hydronephrosis. Simple left renal cyst." - Urinalysis = 4+ protein - IV diuretics as mentioned above - Monitor creatinine and urine output - Renally dose medications # Chronic Atrial Fibrillation - Continue home carvedilol, apixaban # Bilateral Lower Extremity Wounds - Consulted wound care # Gastroesophageal Reflux Disease - Continue home pantoprazole # Bilateral Hilar Mediastinal Lymphadenopathy - Noted on CT chest - Follow-up with PCP for surveillance imaging and further evaluation Modesto Gotti M.D.
[2023-01-28] MEDS: ATORVASTATIN 40 MG TAB PO SCH (22:12)
[2023-01-28] MEDS: SPIRONOLACTONE 25 MG TABLET PO SCH (22:13)
[2023-01-28 23:08] LABS: UR PROTEIN 437.9 mg/dL (<11.9); Urine Protein/Creatinine Ratio 8.94 ratio (<0.15)
[2023-01-29] MEDS: LABETALOL 20 MG/4ML SYRINGE IV PRN (00:57)
[2023-01-29] MEDS: IPRATROPIUM BROM 0.5MG/2.5ML NEB SCH (02:00)
[2023-01-29] MEDS: ALBUTEROL 2.5 MG/3 ML NEB SOL NEB SCH (02:05)
[2023-01-29 06:31] LABS: Albumin 1.9 g/dL (3.4-5.0); Phosphorus 4.2 mg/dL (2.5-4.9); Potassium 3.9 mEq/L (3.5-5.1)
[2023-01-29] MEDS: INSULIN -REGULAR HUMAN 50 UNIT/0.5 ML ML SQ SCH (07:30)
--- NOTE | 2023-01-29 07:34 | P.DS ---
Admission Date: 01/24/23 Discharge Date: 01/29/23 Disposition: DC HOME/HOME HEALTH CARE Discharge Condition: GOOD Reason for Admission: SOB, Cough Consultations: 1. Cardiology 2. Nephrology Hospital Course: DIAGNOSES: # Acute Hypoxic Respiratory Failure - likely secondary to Acute on Chronic Congestive Heart Failure with Unknown Ejection Fraction and Influenza A Infection # Severe Viral Sepsis likely secondary to Influenza A Infection - POA # KDIGO Stage I Acute Kidney Injury on Chronic Kidney Disease Stage III # Suspected Type II Non-ST Segment Elevation Myocardial Infarction (Demand Ischemia) due to above # Hypertensive Urgency # Moderate-Severe Aortic Stenosis # Coronary Artery Disease s/p PCI # Dyslipidemia # Chronic Atrial Fibrillation # Bilateral Lower Extremity Wounds # Gastroesophageal Reflux Disease # Bilateral Hilar Mediastinal Lymphadenopathy # Simple Left Renal Cyst HOSPITAL COURSE: Mr. Julianna Kearns is a pleasant 72-year-old male with a past medical history significant for coronary artery disease s/p PCI, moderatesevere aortic stenosis, dyslipidemia, chronic atrial fibrillation, gastroesophageal reflux disease, and hypertension who was admitted to the [facility] on 01/24/2023 for cough and shortness of breath. He was admitted to the Medicine service. Upon further evaluation, he was found to have an SpO2 of 86 % on room air. He tested positive for Influenza A. His chest x-ray revealed, "stable bilateral patchy airspace opacities. Stable cardiomegaly." His V/Q scan revealed, "low probability of acute pulmonary embolism." His CT chest revealed, "these findings probably indicate mild CHF. Mild bilateral hilar mediastinal lymphadenopathy nonspecific but probably reactive in nature. Follow up CT in 3 months recommended for re-evaluation." He was treated with renally-dosed oseltamivir and IV diuretics. Over the course of his hospitalization, his symptoms improved significantly. He maintained adequate SpO2 readings on room air, but he mentions that he does have home oxygen set up already to be used as needed. He stated that he felt well this morning and would like to be discharged home. His hospitalization was complicated by an acute kidney injury on chronic kidney disease. Nephrology was consulted and he was evaluated by Dr. Mixon. His creatinine has stabilized and Dr. Mixon has cleared him for discharge with furosemide 80 mg PO BID and spironolactone 25 mg PO BID. He will have him follow-up in clinic for further evaluation. His troponin trend was 143.7 -> 155.0 -> 126.6. Cardiology was consulted and he was evaluated by Dr. Muñoz. He felt that this was secondary to demand ischemia. He has cleared him for discharge with outpatient follow-up from a cardiac standpoint. For his chronic bilateral lower extremity wounds, he states that this is followed by [facility]. On 01/29/2023, he was seen on morning rounds and deemed medically stable for discharge. He was discharged with instructions to schedule follow-up appointments with his PCP (Dr. Donis), with Cardiology (Dr. Muñoz), and with Nephrology (Dr. Mixon). He was provided prescriptions for atorvastatin, benzonatate, nitroglycerin patch, carvedilol, apixaban, hydralazine, furosemide, and spironolactone. He was given the opportunity to ask questions and reported no further questions. Furthermore, all questions were answered to the best of my ability. A copy of this discharge summary will be sent to the above providers to facilitate continuity of care. Today, I personally spent 35 minutes on his case, of which greater than 50% of the time was spent in patient education, counseling, and coordination of care as described above. - Physical Exam General: Alert, In no apparent distress, Oriented x3 HEENT: Atraumatic, Mucous membr. moist/pink, Sclerae nonicteric Neck: JVD not distended Respiratory: Diminished, Clear to auscultation bilaterally Cardiovascular: 1+ bilateral lower extremity edema, Regular rate/rhythm, sys tolic murmur Gastrointestinal: Normal bowel sounds, Soft, Non-distended, No tenderness Musculoskeletal: No clubbing Integumentary: No rashes Neurological: Normal speech, Normal affect Vital Signs/Physical Exam: Temp Pulse Resp BP Pulse Ox 98.1 F 73 18 160/95 H 92 01/29/23 04:00 01/29/23 04:00 01/29/23 04:00 01/29/23 04:00 01/29/23 04:00 Laboratory Data at Discharge: WBC 8.10 thou/uL (4.3-10.9) 01/25/23 03:09 Hgb 14.3 g/dL (13.6-17.9) D 01/25/23 03:09 Hct 45.6 % (39.6-49.0) 01/25/23 03:09 Plt Count 285 thou/uL (152-406) 01/25/23 03:09 PT 12.7 SECONDS (9.5-12.5) H 01/24/23 10:54 INR 1.15 01/24/23 10:54 Sodium 133 mEq/L (136-145) L 01/29/23 05:47 Potassium 3.9 mEq/L (3.5-5.1) 01/29/23 05:47 BUN 46 mg/dL (7-18) H 01/29/23 05:47 Creatinine 2.46 mg/dL (0.70-1.30) H 01/29/23 05:47 Glucose 170 mg/dL (74-106) H 01/29/23 05:47 Uric Acid 9.9 mg/dL (3.5-7.2) H 01/26/23 02:33 Phosphorus 4.2 mg/dL (2.5-4.9) 01/29/23 05:47 Magnesium 2.0 mg/dL (1.6-2.4) 01/29/23 05:47 Home Medications: Apixaban [Eliquis *] 2.5 mg PO BID #60 tab 01/29/23 Aspirin Chewable [Aspirin Chewable*] 81 mg PO DAILY tab.chew 01/29/23 Atorvastatin Calcium [Lipitor] 40 mg PO BEDTIME #30 tab 01/29/23 Benzonatate [Tessalon Perle*] 100 mg PO TID PRN 7 Days #20 cap 01/29/23 Furosemide [Lasix] 80 mg PO BIDL #60 tab 01/29/23 Hydralazine HCl 50 mg PO TID #90 tab 01/29/23 Nitroglycerin Patch [Transderm-Nitro 0.2MG/Hr Patch*] 5 mg TD DAILY #30 patch 01/29/23 Spironolactone [Aldactone*] 25 mg PO BID #60 tab 01/29/23 carvediloL [Coreg*] 12.5 mg PO BID #60 tab 01/29/23 New Medications: Spironolactone [Aldactone*] 25 mg PO BID #60 tab carvediloL [Coreg*] 12.5 mg PO BID #60 tab Apixaban [Eliquis *] 2.5 mg PO BID #60 tab Hydralazine HCl 50 mg PO TID #90 tab Furosemide [Lasix] 80 mg PO BIDL #60 tab Atorvastatin Calcium [Lipitor] 40 mg PO BEDTIME #30 tab Benzonatate [Tessalon Perle*] 100 mg PO TID PRN 7 Days #20 cap PRN Reason: Cough Nitroglycerin Patch [Transderm-Nitro 0.2MG/Hr Patch*] 5 mg TD DAILY #30 patch Physician Discharge Instructions: 1. Please call and schedule a follow-up appointment with your PCP (Dr. Donis) in 3-5 days - Please have him repeat a CT scan of your chest in about 3 months to re-evaluate the swollen lymph nodes in your chest 2. Please call and schedule a follow-up appointment with Nephrology (Dr. Mixon) in 3-5 days - You have a cyst on your kidney - please discuss at your next appointment - Please have him adjust your medication doses and refill them as needed 3. Please call and schedule a follow-up appointment with Cardiology (Dr. Muñoz) in 5-7 days Diet: AHA Activity: Ad brian Followup: Raghav Muñoz MD [ACTIVE - CAN ADMIT] - Bassam Donis MD [Primary Care Provider] - Álvaro Mixon MD [ACTIVE - CAN ADMIT] - Time spent managing pt's care (in minutes): 35
[2023-01-29] MEDS ORDERED: ALBUTEROL 2.5 MG/3 ML NEB SOL NEB PRN (08:00)
[2023-01-29] MEDS ORDERED: IPRATROPIUM BROM 0.5MG/2.5ML NEB PRN (08:00)
[2023-01-29] MEDS ORDERED: POTASSIUM CL SA 10 MEQ TAB PO ONE (09:00)
[2023-01-29] MEDS: FUROSEMIDE 40 MG/4 ML VIAL IV SCH (09:19)
[2023-01-29] MEDS: SPIRONOLACTONE 25 MG TABLET PO SCH (09:19)
[2023-01-29] MEDS: HYDRALAZINE HCL 25 MG TABLET PO SCH (09:19)
[2023-01-29] MEDS: ASPIRIN 81 MG CHEWABLE TABLET PO SCH (09:19)
[2023-01-29] MEDS: carvediloL 12.5 MG TAB PO SCH (09:20)
[2023-01-29] MEDS: NITROGLYCERIN 0.2 MG/HR (5 MG) PATCH TD SCH (09:20)
[2023-01-29] MEDS: OSELTAMIVIR 30 MG CAP PO SCH (09:20)
[2023-01-29] MEDS: APIXABAN 2.5 MG TABLET PO SCH (09:20)
[2023-01-29] MEDS: MUPIROCIN 2% OINT 22GM TUBE TOP SCH (09:21)
[2023-01-29 11:41] VITALS: O2SAT 90
[2023-01-29 13:08] VITALS: BP 163/87; TEMP 98.1
[2023-02-01 14:35] LABS: Albumin, (SPE) 2.1 g/dL (3.8-4.8); Alpha-1-Globulins 0.4 g/dL (0.2-0.3); Gamma Globulins 1.4 g/dL (0.8-1.7); INTERPRETATION REPORT
== END 2023-01-29 11:41 | disposition home health service (06) | DRG 871 ==
LOC: ER 08:50 → ERHOLD 17:57 → 2ND 20:07
PROVIDERS: ADMIT Internal Medicine; ATTEND Internal Medicine
DX: A41.89 Other specified sepsis (principal); I21.A1 Myocardial infarction type 2; I50.23 Acute on chronic systolic (congestive) heart failure; J09.X1 Influenza due to identified novel influenza A virus with pneumonia; J96.01 Acute respiratory failure with hypoxia; I13.0 Hypertensive heart and chronic kidney disease with heart failure and stage 1 through stage 4 chronic kidney disease, or unspecified chronic kidney disease; J44.0 Chronic obstructive pulmonary disease with (acute) lower respiratory infection; J44.1 Chronic obstructive pulmonary disease with (acute) exacerbation; N17.9 Acute kidney failure, unspecified; N25.81 Secondary hyperparathyroidism of renal origin; R65.20 Severe sepsis without septic shock; N18.32 Chronic kidney disease, stage 3b; E11.22 Type 2 diabetes mellitus with diabetic chronic kidney disease; E11.40 Type 2 diabetes mellitus with diabetic neuropathy, unspecified; D63.1 Anemia in chronic kidney disease; D50.9 Iron deficiency anemia, unspecified; K21.9 Gastro-esophageal reflux disease without esophagitis; I16.0 Hypertensive urgency; I35.0 Nonrheumatic aortic (valve) stenosis; I48.0 Paroxysmal atrial fibrillation; N28.1 Cyst of kidney, acquired; E87.6 Hypokalemia; I27.20 Pulmonary hypertension, unspecified; E78.00 Pure hypercholesterolemia, unspecified; I25.10 Atherosclerotic heart disease of native coronary artery without angina pectoris; T50.1X6A Underdosing of loop [high-ceiling] diuretics, initial encounter; I25.2 Old myocardial infarction; R59.1 Generalized enlarged lymph nodes; R77.8 Other specified abnormalities of plasma proteins; Z88.0 Allergy status to penicillin; Z95.5 Presence of coronary angioplasty implant and graft; Z79.4 Long term (current) use of insulin; Z79.02 Long term (current) use of antithrombotics/antiplatelets; Z79.01 Long term (current) use of anticoagulants; Z91.128 Patient's intentional underdosing of medication regimen for other reason; Z79.899 Other long term (current) drug therapy; Z87.891 Personal history of nicotine dependence; Z91.148 Patient's other noncompliance with medication regimen for other reason; Z20.822 Contact with and (suspected) exposure to COVID-19
CPT/HCPCS: 36415; 71045; 71250; 76770; 78582; 80048; 80069; 81003; 82550; 82570; 82947; 83520; 83605; 83735; 83880; 83935; 83970; 84132; 84145; 84156; 84165; 84300; 84439; 84443; 84484; 84550; 85025; 85610; 86021; 86038; 86160; 86225; 86430; 87070; 87077; 87186; 87205; 87804; 87811; 93005; 94010; 94640; 96365; 96375; 99285; A9540; A9558; J0360; J0696; J1815; J1940; J3475; J7050; J7613; J7644

== ENCOUNTER 2023-03-16 10:54 | Inpatient (IN) | payer OTHER ==
--- OUTSIDE RECORDS SUMMARY | 2023-03-16 11:02 | XMS REPORT | Continuity of Care Document ---
:[address] [facility] t Address [address] [place] [id number] Care Team Providers Name Role Phone BASSAM DONIS Primary Care Physician Unavailable Bassam Donis Attending Clinician Unavailable Carlyn MALDONADO, Jose Lazo Attending Clinician Unavailable Romel Yu Attending Clinician Starla Tafoya MD Attending Clinician Kenia Yin MD Attending Clinician KENIA YIN Attending Clinician Unavailable Jose Reinoso Attending Clinician Unavailable Chad Valadez Attending Clinician Unavailable Starla Tafoya MD Admitting Clinician STARLA TAFOYA Admitting Clinician Unavailable Physician, No Primary or Family Admitting Clinician Unavaila ble Payers Payer Name Policy Type Policy Number Effective Date Expiration Date [place] [address] [id number] [facility] Problems Condition Condition Condition Status Onset Resolution Last Treating Co mments Source Name Details Category Date Date Treatment Clinician Date Nausea and Nausea and Disease Active U nivers vomiting vomiting 6-07 ity of in adult in adult 00:00: [address] MULLER MULLER Disease Active Univers (dyspnea (dyspnea 07 ity of on on 00:00: [place] exertion) exertion) 00 Medi rafael Branch Coronary Coronary Disease Active Unive rs artery artery 6 ity of disease disease 00:00: [place] involving involving 00 Medi rafael [place] Branch coronary coronary artery of artery of [place] heart with heart with angina angina pectoris pectoris Dyslipidem Dyslipidem Disease Active U ronald ia ia 6 ity of 00:00: [place] [facility] Uncontroll Uncontroll Disease Active U ronald ed ed 607 ity of hypertensi hypertensi 00:[place] 00 [place] Chronic Chronic Disease Active Univers heart heart 03-08 ity of failure failure 00:00: [place] with with 00 Medical preserved preserved Bran ch ejection ejection fraction fraction PAF PAF Disease Active Univers (paroxysma (paroxysma 03-08 it y of l atrial l atrial 00:00: [place] fibrillati fibrillati 00 Me dical on) on) Branch Type 2 Type 2 Disease Active Univers diabetes diabetes 03-08 ity of mellitus mellitus 00:00: [place] with other with other 00 Me dical specified specified Bran ch complicati complicati on on Elevated Elevated Disease Active Unive rs troponin I troponin I 03-08 it y of level level 00:00: [place] 00 Medical Branch Angina of Angina of Disease Active Uni vers effort effort 5-19 ity of 00:00: [place] 00 Medical Branch [id number] 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 - [facility] n) of [facility] [id number] Prostate Problem Active Com mon nodule Spirit - [facility] [id number] Urge Problem Active Common incontinen Spirit ce - [facility] [id number] Lower Problem Active Common urinary Spirit tract - [facility] symptoms [facility] Allergies, Adverse Reactions, Alerts Allergy Allergy Status Severity Reaction(s) Onset Inactive Treating Comm ents Source Name Type Date Date Clinician Penicill DA Active SV HIVES [facility] ins 8-05 Clear 00:00: [address] Penicill Propensi Active Rash Univer s ins ty to 5-19 ity of adverse 00:00: [place] reaction 00 Medical s Branch PENICILL Drug Active Rash 2016-0 Univers INS Class 5-19 ity of 00:00: [place] 00 Medical Branch Social History Social Habit Start Date Stop Date Quantity Comments Source History of tobacco Passive smoker Un iversity of use [place] [facility] History SDOH University o f Alcohol Std Drinks [place] [facility] History SDOH University o f Alcohol Binge [place] Medic al Branch History SDOH Social Unive rsity of Connections Get [place] Med ical Together Branch History SDOH Social Unive rsity of Connections Tenriism [place] [facility] History SDOH Social Unive rsity of Connections [place] [facility] Membership Branch History SDOH Social Unive rsity of Connections [place] Medical Meetings Branch Tobacco use and 2023-03-08 2023-03-08 Smokeless Universit y of exposure 00:00:00 00:00:00 tobacco non-user [facility] dical Branch Alcohol intake 2023-03-08 2023-03-08 3 /d University of 00:00:00 00:00:00 [place] [facility] History SDOH 2023-03-08 2023-03-08 1 University o f Alcohol Frequency 00:00:00 00:00:00 [place] M edical Branch History SDOH Social 2023-03-08 2023-03-08 5 Unive rsity of Connections Phone 00:00:00 00:00:00 [facility] edical Branch History SDOH Social 2023-03-08 2023-03-08 3 Unive rsity of Connections Living 00:00:00 00:00:00 [place] [facility] History SDOH 2023-03-08 2023-03-08 5 University o f Financial 00:00:00 00:00:00 [place] [facility] History SDOH Food 2023-03-08 2023-03-08 1 Univers ity of Worry 00:00:00 00:00:00 [place] [facility] History SDOH Food 2023-03-08 2023-03-08 1 Univers ity of Scarcity 00:00:00 00:00:00 [place] [facility] History SDOH 2023-03-08 2023-03-08 2 University o f Transport Med 00:00:00 00:00:00 [place] Medic al Branch History SDOH 2023-03-08 2023-03-08 2 University o f Transport Non-Med 00:00:00 00:00:00 [place] M edical Branch History SDOH 2023-03-08 2023-03-08 2 University o f Housing Unable to 00:00:00 00:00:00 [place] M edical Pay Branch History SDOH 2023-03-08 2023-03-08 1 University o f Housing Places 00:00:00 00:00:00 [facility] rafael Lived Branch History SDOH 2023-03-08 2023-03-08 2 University o f Housing Homeless 00:00:00 00:00:00 [place] dical Last Year Branch Tobacco Comment 2023-03-08 2023-03-08 quit smoking 20 Univ ersity of 00:00:00 00:00:00 yrs ago [place] [facility] Sex Ass[birth year] At [birth year] Universit y of 00:00:00 00:00:00 [place] [facility] Smoking Status Start Date Stop Date Source Ex-smoker 2023-03-08 00:00:00 2023-03-08 00:00:00 [facility] of [place] [facility] Medications Ordered Filled Start Stop Current Ordering Indication Dosage Frequency Signature Comments Components Source Medication Medication Date Date Medication? Clinician (SIG) Name Name insulin Yes [id number] 15U inject 15 U nivers glargine 6-09 Units ity of 100 unit/mL 00:00: [place] injection 00 skin in [facility] morning. insulin Yes [id number] 15U inject 15 U nivers glargine 6-09 Units ity of 100 unit/mL 00:00: [place] the [place] injection 00 skin in [facility] morning. amLODIPine 2022- Yes [id number] 10mg Take 1 Univers 10 mg 03-1010 tablet by ity of tablet 00:00: 04:59 mouth in [place] 00 :00 the [facility] Branch for 30 days. metoprolol 2022- Yes [id number] 50mg Take 1 Univers succinate 03-10-10 tablet by ity of XL 50 mg 24 00:00: 04:59 [place] hr tablet 00 :00 the [facility] Branch for 30 days. amLODIPine 2022- Yes [id number] 10mg Take 1 Univers 10 mg 6-09 07-10 tablet by ity of tablet 00:00: 04:59 mouth in [place] 00 :00 the Medical morning Branch for 30 days. metoprolol 2022-0 2022- Yes [id number] 50mg Take 1 Univers succinate 6 07-10 tablet by ity of XL 50 mg 24 00:00: 04:59 mouth in [place] hr tablet 00 :00 the Medical morning Branch for 30 days. glimepiride 2022-0 Yes 4mg Take 4 mg U nivers (AMARYL) 4 6-08 by mouth ity o f mg tablet 19:56: daily with [place] 26 breakfast. Medical Branch ALPRAZolam 0 Yes 1mg Take 1 mg Un tono (XANAX) 1 6-08 by mouth 3 ity of mg tablet 19:56: (three) [place] 26 times Medical daily. Branch omega-3 0 Yes 1g Take 1 g Univer s fatty 6-08 by mouth ity of acids-vitam 19:56: daily. [place] in E (FISH 26 Medical OIL) 1,000 Branch mg capsule glimepiride 0 Yes 4mg Take 4 mg U nivers (AMARYL) 4 6-08 by mouth ity o f mg tablet 19:56: daily [place] 26 breakfast. Medical Branch ALPRAZolam 0 Yes 1mg Take 1 mg Un tono (XANAX) 1 6-08 by mouth 3 ity of mg tablet 19:56: (three) [place] 26 times Medical daily. Branch omega-3 0 Yes 1g Take 1 g Univer s fatty 6-08 by mouth ity of acids-vitam 19:56: daily. [place] in E (FISH 26 Medical OIL) 1,000 Branch mg capsule rosuvastati 0 2022- No 10mg Take 10 mg Univers n (CRESTOR) 03-09-08 by mouth ity of 10 mg 15:36: 00:00 at [place] tablet 42 :00 bedtime. Medical Branch metoprolol 2022-0 2022- No 50mg Take 50 mg Univers succinate 03-09 06-08 by mouth ity o f XL (TOPROL 15:36: 00:00 daily. [place] XL) 50 mg 42 :00 Medical 24 hr Branch tablet hydrochloro 2022-0 2022- No 25mg Take 25 mg Univers thiazide 03-09 by mouth ity of (ESIDRIX) 15:36: 00:00 daily. [place] 25 mg 42 :00 Medical tablet Branch canaglifloz 2022- No Take by [place] tono in 03-09 mouth. ity of (INVOKANA) 15:36: 00:00 [place] 300 mg 42 :00 Medical tablet Branch metFORMIN 2022- No 1000mg Take 1,000 Univers (GLUCOPHAGE 03-09 mg by ity of ) 1,000 mg 15:36: 00:00 mouth 2 [place] as tablet 42 :00 (two) Medical times Branch daily with meals. Amlodipine- 2022- No Take by [place] power Olmesartan 03-09 mouth. ity of (SKYLAR) 15:36: 00:00 [place] 10-40 mg 42 :00 Medical per tablet Branch INSULIN 2022- No inject Univers DETEMIR 03-09 under the ity of (LEVEMIR 15:36: 00:00 skin. [place] FLEXTOUCH 42 :00 Medical SC) Branch aspirin 81 2022- No 81mg Take 81 mg Univers mg EC 03-09 by mouth ity of tablet 15:36: 00:00 daily. [place] 42 :00 Medical Branch rosuvastati Yes 10mg 10 mg, Univ ers n (CRESTOR) 03-09 Oral, QHS, it y of tablet 10 02:00: [place] dose [place] mg 00 on Mon03/08/23 at Branch 2100, Until Discontinu ed, Routine aspirin 81 2022- Yes [id number] 81mg Take 1 Univers mg EC 03-09 tablet by ity of tablet 00:00: 04:59 mouth in [place] 00 :00 the Medical morning Branch for 30 days. hydroCHLORO 2022- Yes [id number] 25mg Take 1 Univers thiazide 25 03-09 tablet by it y of mg tablet 00:00: 04:59 mouth in [place] 00 :00 the Medical morning Branch for 30 days. metFORMIN 2022- Yes [id number] 1000mg Take 1 Univers 1,000 mg 03-09 tablet by ity o f tablet 00:00: 04:59 mouth in [place] 00 :00 the Medical morning Branch and 1 tablet in the evening. Take with meals. Do all this for 30 days. rosuvastati 2022- Yes [id number] 10mg Take 1 Univers n 10 mg 03-09 tablet by ity of tablet 00:00: 04:59 mouth at [place] 00 :00 bedtime Medical for 30 Branch days. aspirin 81 2022- Yes [id number] 81mg Take 1 Univers mg EC 03-09 tablet by ity of tablet 00:00: 04:59 mouth in [place] 00 :00 the Medical morning Branch for 30 days. hydroCHLORO 2022- Yes [id number] 25mg Take 1 Univers thiazide 25 03-09 tablet by it y of mg tablet 00:00: 04:59 mouth in [place] 00 :00 the Medical morning Branch for 30 days. metFORMIN 2022- Yes [id number] 1000mg Take 1 Univers 1,000 mg 03-09 tablet by ity o f tablet 00:00: 04:59 mouth in [place] 00 :00 the Medical morning Branch and 1 tablet in the evening. Take with meals. Do all this for 30 days. rosuvastati 2022- Yes [id number] 10mg Take 1 Univers n 10 mg 03-09 tablet by ity of tablet 00:00: 04:59 mouth at [place] 00 :00 bedtime Medical for 30 Branch days. sulfur 2022- No [id number] 5mL 5 mL, Unive rs hexafluorid 03-08 Intravenou i ty of e microsphr 15:45: 15:45 s, ONCE, 1 [place] (LUMASON) 00 :00 dose, On Medica l injection 5 Mon03/08/23 Br anch mL at 1045, Routine
produce service team member approving Restricted medication : RONALD AVILA Saline Yes [id number] 6mL 6 mL, Univer s Bubble 03-08 Injection, ity of Study 15:41: SEE-INSTRU [place] 23 CTIONS, Medical Starting Branch on Mon03/08/23 at 1041, Until Discontinu ed, Routine insulin 2023-0 Yes 15U 15 Units, Unive rs glargine 03-08 Subcutaneo ity o f (LANTUS 14:15: us, DAILY, [place] U-100) 00 First dose Medical injection on Mon Branch 15 Units 03/08/23 at 0915, Until Discontinu ed, Routine amLODIPine Yes 10mg 10 mg, Unive rs (NORVASC) 03-08 Oral, ity of tablet 10 14:15: DAILY, [place] mg 00 First dose Medical on Mon03/08/23 at 0915, Until Discontinu ed, Routine metoprolol Yes 50mg 50 mg, Unive rs succinate 03-08 Oral, ity of XL (TOPROL 14:15: DAILY, [place] XL) tablet 00 First dose Med ical 50 mg on Mon03/08/23 at 0915, Until Discontinu ed, Routine hydroCHLORO Yes 25mg 25 mg, Univ ers thiazide 03-08 Oral, ity of (ESIDRIX) 14:15: DAILY, [place] tablet 25 00 First dose Medi rafael mg on Mon03/08/23 at 0915, Until Discontinu ed, Routine aspirin EC Yes 81mg 81 mg, Unive rs tablet 81 03-08 Oral, ity of mg 14:15: DAILY, [place] 00 First dose Medical on Mon03/08/23 at 0915, Until Discontinu ed, Routine ALPRAZolam Yes 1mg 1 mg, Univer s (XANAX) 03-08 Oral, ity of tablet 1 mg 14:04: TIDPRN, [place] 36 Starting Medical on Mon03/08/23 at 0904, Until Discontinu ed, Routine, Anxiety Sliding 0 Yes Subcutaneo Univ ers Scale 6-07 us, TID ity of Insulin - 13:00: MEALS+HS, [place] Lispro 00 First dose Medical (HumaLOG) on Mon03/08/23 at 0800, Until Discontinu ed, Routine heparin 2022-0 Yes 5000U 5,000 Univers (porcine) 03-08 Units, ity of injection 11:00: Subcutaneo [place] 5,000 Units 00 us, Q8H, Medi rafael First dose Branch on Mon03/08/23 at 0600, Until Discontinu ed, Routine hydralAZINE 2022-0 Yes 10mg 10 mg, Univ ers (APRESOLINE 03-08 Slow IV ity o f ) injection 09:38: Push, [place] 10 mg 44 Q4HPRN, Medical Starting Branch on Mon03/08/23 at 0438, Until Discontinu ed, Routine, DBP=>10 0; SBP=>180 glucagon 2022-0 Yes 1mg 1 mg, Univers (GLUCAGEN 03-08 Intramuscu ity of DIAGNOSTIC 09:36: lar, PRN, [place] KIT) 45 Starting Medical injection 1 on Mon Branch mg 03/08/23 at 0436, Until Discontinu ed, RENETTA, Blood Glucose < or = 70 mg/dL and patient is NPO, unable to swallow or has mental changes. dextrose 50 2022-0 Yes 25mL 25 mL, Univ ers % in water 03-08 Slow IV ity of (D50W) 09:36: Push, PRN, [place] injection 45 Starting Medica l 25 mL on Mon Branch 03/08/23 at 0436, Until Discontinu ed, RENETTA, Blood Glucose < or = 70 mg/dL and patient is NPO, unable to swallow or has mental status changes. ondansetron 2022-0 Yes 4mg 4 mg, Slow Univers (ZOFRAN 03-08 IV Push, ity of (PF)) 09:36: Q6HPRN, [place] injection 4 24 Starting Medi rafael mg on Mon Branch 03/08/23 at 0436, Until Discontinu ed, Routine, Nausea and Vomiting (N/V) HYDROcodone 2022-0 2022- Yes 1{tbl} 1 tablet, Univers -acetaminop 03-08 06-09 Oral, ity of hen (NORCO 09:36: 09:35 Q6HPRN, [place] 5) 5-325 mg 16 :16 Starting Medi rafael tablet 1 on Mon Branch tablet 03/08/23 at 0436, Until 03/10/23 at 0435, Routine, Pain (scale 4-6) acetaminoph 2022-0 Yes 650mg 650 mg, Un tono en 03-08 Oral, ity of (TYLENOL) 09:36: Q6HPRN, [place] tablet 650 10 Starting Medic al mg on Mon Branch 03/08/23 at 0436, Until Discontinu ed, Routine, Pain (scale 1-3), Temp > 38 C ondansetron 2022- No 4mg 4 mg, Slow Univers (ZOFRAN 03-08 06- IV Push, ity of (PF)) 05:45: 05:40 ONCE, 1 [place] injection 4 00 :00 dose, On Medi rafael mg Mon03/08/23 Branch at 0045, RENETTA VESIcare 5 VESIcare 5 2019-10- No 1{table [...] Name Observation Time Observation Value Comments Source Systolic blood 2023-03-10 00:08:00 163 mm[Hg] Univer sity of [facility] Diastolic blood 2023-03-10 00:08:00 90 mm[Hg] Unive rsity [facility] Heart rate 2023-03-10 00:08:00 70 /min [facility] Body temperature 2023-03-10 00:08:00 35.17 Teresa [facility] Respiratory rate 2023-03-10 00:08:00 16 /min [facility] Oxygen saturation in 2023-03-10 00:08:00 90 /min [facility] blood by [facility] Pulse oximetry Branch Body weight 2023-03-09 08:37:00 102.967 kg [facility] BMI 2023-03-09 08:37:00 30.79 kg/m2 [facility] Body height 2023-03-08 09:35:00 182.9 cm [facility] height 2020-12-03 11:15:00 70 [in_i] [facility] weight 2020-12-03 11:15:00 197 [lb_av] [facility] temperature 2020-12-03 11:15:00 97.6 [degF] [facility] bmi 2020-12-03 11:15:00 28.26 kg/m2 [facility] oximetry 2020-12-03 11:15:00 97 % [facility] blood pressure 2020-12-03 11:15:00 139 mm[Hg] [facility] - systolic [facility] blood pressure 2020-12-03 11:15:00 64 mm[Hg] Common [facility] - diastolic [facility] height 2020-08-24 14:00:00 70 [in_i] [facility] weight 2020-08-24 14:00:00 199.6 [lb_av] Common [facility] temperature 2020-08-24 14:00:00 98.4 [degF] Common [facility] bmi 2020-08-24 14:00:00 28.64 kg/m2 [facility] oximetry 2020-08-24 14:00:00 96 % [facility] blood pressure 2020-08-24 14:00:00 197 mm[Hg] Common [facility] - systolic [facility] blood pressure 2020-08-24 14:00:00 86 mm[Hg] Common [facility] - diastolic [facility] Procedures Procedure Date / Time Performing Clinician Source Performed POCT GLUCOSE (AUTOMATED) 2023-03-09 21:33:00 Starla Tafoya [facility] POCT GLUCOSE (AUTOMATED) 2023-03-09 16:39:00 [facility] POCT GLUCOSE (AUTOMATED) 2023-03-09 12:45:00 Starla Tafoya [facility] PHOSPHORUS 2023-03-09 09:02:00 Kenia Yin [facility] MAGNESIUM 2023-03-09 09:02:00 Michelet [facility] TROPONIN I 2023-03-09 09:02:00 [facility]EL 2023-03-09 09:02:00 Kenia Yin [facility] ([id number]) (ALB,T.PRO,BILI Medical Branch T,BU/BC,ALT,AST,ALK PHOS) BASIC METABOLIC PANEL 2023-03-09 09:02:00 [facility] ([facility], K, CL, CO2, Medical Branch GLUCOSE, BUN, CREATININE, CA) CBC WITH DIFF 2023-03-09 09:02:00 Jagdish Martin [facility] N-TERMINAL PRO-BNP 2023-03-09 09:02:00 Kenia Yin [facility] POCT GLUCOSE (AUTOMATED) 2023-03-09 02:08:00 [facility] 2023-03-08 22:51:00 Mic[facility]let [facility] GLYCOSYLATED HEMOGLOBIN 2023-03-08 22:51:00 Jagdish Martin [facility] (A1C) [facility] POCT GLUCOSE (AUTOMATED) 2023-03-08 21:22:00 Mic[facility] POCT GLUCOSE (AUTOMATED) 2023-03-08 16:16:00 [facility] TRANSTHORACIC ECHO (TTE) 2023-03-08 14:29:00 Starla Tafoya [facility] COMPLETE W/ CONTRAST Medical [facility] POCT GLUCOSE (AUTOMATED) 2023-03-08 12:39:00 Mic[facility] PHOSPHORUS 2023-03-08 11:24:00 Mic[facility]let [facility] TROPONIN I 2023-03-08 11:24:00 [facility] N-TERMINAL PRO-BNP 2023-03-08 11:24:00 Candi Patel [facility] XR CHEST 1 VW 2023-03-08 06:27:00 Temi Holloway [facility] HB ECG ROUTINE & RHYTHM 2023-03-08 05:39:37 Temi Holloway [facility] LIPASE 2023-03-08 05:39:00 Temi Holloway [facility] TROPONIN I 2023-03-08 05:39:00 Temi Holloway [facility] THYROID STIMULATING 2023-03-08 05:39:00 Starla Tafoya [facility] HORMONE [facility] Branch COMP. METABOLIC PANEL 2023-03-08 05:39:00 Temi Holloway [facility] ([id number]) Medical Branch LIPID PANEL 2023-03-08 05:39:00 Starla Tafoya [facility] ([id number])(TOTAL Medical Branch CHOLESTEROL, TRIGLYCERIDES, HDL) CBC WITH DIFF 2023-03-08 05:39:00 Temi Holloway [facility] GLYCOSYLATED HEMOGLOBIN 2023-03-08 05:39:00 Starla Tafoya [facility] (A1C) Medical Branch Encounters Start End Encounter Admission Attending Care Care Encounter Source Date/Time Date/Time Type Type Clinicians Facility Department ID 2021-10-27 Outpatient Donis, STLMLC [facility] [id number] Common 12:15:25 Bassam [id number] [facility] 2021-10-27 Outpatient [facility] [id number] Common 12:07:45 [id number] [facility] 2023-03-10 2023-03-10 Transition CHRISTOPHER Alcocer [id number] Univers 00:00:00 00:00:00 of Care Jose WHITE [id number] ity of MIHIR [id number] [facility] [id number] [facility] 403 Branch 2023-03-08 2023-03-09 Emergency Romel Montez [facility] [id number] Univers 00:29:00 19:46:00 Starla Tafoya [id number] ity of Kenia Yin 4.2.7.2.686 [facility] [id number] [facility] 081 Branch 2023-03-08 2023-03-09 Outpatient Inocente YIN NDROBERTO LEONEL [id number] Univers 00:29:00 19:46:00 KENIA loyola [facility] 2022-05-31 2022-05-31 Outpatient SPEEDY Dial [facility] [id number] [facility] 08:52:00 08:52:00 Jose Reyes [facility] 2022-05-11 2022-05-11 Outpatient MAGDALENE Valadez, SPEEDY [facility] [id number] [facility] 10:11:00 10:11:00 Chad 67 [facility] 2022-05-11 2022-05-11 Outpatient MAGDALENE Valadez, SPEEDY HEBERTCL [id number] [facility] 10:11:00 10:11:00 Chad [id number] [facility] 2020-12-03 2020-12-03 OFFICE STLMLC STLMLC [id number] Co mmon 00:00:00 00:00:00 VISIT Spirit ESTAB PT - CHI LEVEL 2 [facility] 2020-08-24 2020-08-24 OFFICE STLMLC STLMLC [id number] Co mmon 00:00:00 00:00:00 VISIT VISHNU Borges it PT LEVEL 4 - [facility] Results Test Description Test Time Test Comments Results Result Comments Source POCT GLUCOSE (AUTOMATED) 2023-03-09 21:35:08 Test Item Value Reference Range Interpretation Comme nts POCT GLU (test code = 0420752386) 149 mg/dL 70-110 H Lab Interpretation (test code = 08782-3) Abnormal [facility] GLUCOSE (AUTOMATED)2023-03-09 16:43:52 Test Item Value Reference Range Interpretation Comments POCT GLU (test code = 0332134856) 138 mg/dL 70-110 H Lab Interpretation (test code = Abnormal 61252-5) [facility] GLUCOSE (AUTOMATED)2023-03-09 12:55:44 Test Item Value Reference Range Interpretation Comments POCT GLU (test code = 3865414861) 126 mg/dL 70-110 H Lab Interpretation (test code = Abnormal 54627-3) [facility] GLUCOSE (AUTOMATED)2023-03-09 02:09:42 Test Item Value Reference Range Interpretation Comments POCT GLU (test code = 9589327317) 115 mg/dL 70-110 H Lab Interpretation (test code = Abnormal 60048-9) [facility] GLUCOSE (AUTOMATED)2023-03-08 21:32:42 Test Item Value Reference Range Interpretation Comments POCT GLU (test code = 5905889838) 266 mg/dL 70-110 H Lab Interpretation (test code = Abnormal 29168-8) [facility] GLUCOSE (AUTOMATED)2023-03-08 16:26:44 Test Item Value Reference Range Interpretation Comments POCT GLU (test code = 1419699437) 195 mg/dL 70-110 H Lab Interpretation (test code = Abnormal 73300-4) [facility] GLUCOSE (AUTOMATED)2023-03-08 12:40:58 Test Item Value Reference Range Interpretation Comments POCT GLU (test code = 6752502943) 179 mg/dL 70-110 H Lab Interpretation (test code = Abnormal 50435-2) [facility]SH)2023-03-08 11:56:52 Test Item Value Reference Range Interpretation Comments TSH (test code = 5.09 See_Comment H Biotin has been [id number]) reported to cau se a negative bias, interpret resul ts relative to vinh tee's use of biotin. [Automated mess age] The system GetPromotd generated this result transmitted ref erence range: 0.45 - 4 .70 mIU/L. The refe rence range was not u sed to interpret this result as normal/abnor mal. Lab Interpretation (test Abnormal code = 01586-3) [facility] Center[facility] Hemoglobin (A1C)2023-03-08 11:27:39 Test Item Value Reference Range Interpretation Comments HGB A1C (test code = 9.3 % 4.0-5.7 H 4548-4) TRINIDAD (test code = TRINIDAD) Reference RangesNormal: <5.7%Prediabetes: 5.7 - 6.4%Diabetes: > 6.5% Lab Interpretation (test Abnormal code = 82855-5) [facility] (Total Cholesterol, Triglycerides, HDL)2023-03-08 11:14:15 Test Item Value Reference Range Interpretation Comments CHOL (test code = 8473197822) 166 mg/dL 120-200 HDL (test code = 5467365403) 51 mg/dL >=40 HDLC RATIO (test code = 9803398891) 3.3 <=5.0 TRIG (test code = 3814756622) 83 mg/dL 30-170 LDL CHOL (test code = 05778-5) 98 mg/dL <=160 VLDL (test code = 6792633112) 17 mg/dL 5-60 Lab Interpretation (test code = Normal 89719-4) [facility] [id number] 06:21:21 Test Item Value Reference Range Interpretation Comments TROPONIN I (test code = 0.075 ng/mL <=0.034 H 7624685103) TRINIDAD (test code = TRINIDAD) Reference (Normal) Range (defined by the 99th percentile reference limit): <= 0.034 ng/mL Note: Cardiac troponin begins to rise 3-4 hours after the onset of ischemia. Repeat in 4-6 hours if the sample was drawn within 3-4 hours of the onset of the symptom and found normal. Diagnosis of myocardial injury is made with acute changes in cTn concentrations with at least one serial sample above the 99th percentile upper reference limit (URL), taken together with the patient's clinical presentation. Biotin has been reported to cause a negative bias, interpret results relative to patient's use of biotin. Lab Interpretation Abnormal (test code = 20784-1) [facility] CenterCOMP. METABOLIC PANEL (08441)2023-03-08 06:10:20 Test Item Value Reference Range Interpretation Comments NA (test code = 135 mmol/L 135-145 7896285224) K (test code = 4.3 mmol/L 3.5-5.0 0620210353) CL (test code = 104 mmol/L 98-108 8588946729) CO2 TOTAL (test code = 26 mmol/L 23-31 7053401888) AGAP (test code = 5 2-16 4318520610) BUN (test code = 27 mg/dL 7-23 H 3305598345) GLUCOSE (test code = 243 mg/dL 70-110 H 7355677320) CREATININE (test code = 2.15 mg/dL 0.60-1.25 H 9358807860) TOTAL BILI (test code = 0.8 mg/dL 0.1-1.1 5089556531) CALCIUM (test code = 8.2 mg/dL 8.6-10.6 L 5322894666) T PROTEIN (test code = 6.0 g/dL 6.3-8.2 L 1273134166) ALBUMIN (test code = 2.5 g/dL 3.5-5.0 L 2062708074) ALK PHOS (test code = 60 U/L 34-122 4919383822) ALTv (test code = 17 U/L 5-50 1742-6) AST(SGOT) (test code = 26 U/L 13-40 8424854394) eGFR (test code = 30.1 mL/min/1.73m2 0789211145) TRINIDAD (test code = TRINIDAD) Association of Glomerular Filtration Rate (GFR) and Staging of Kidney Disease* + --+ --+ ------+| GFR (mL/min/1.73 m2) ?| With Kidney Damage ?| ?Without Kidney Damage+ --------+ --------+ +| ?>90 ?| ?Stage one ?| ? Normal ?+ ---+ ---+ -------+| ?60-89 ?| ?Stage two ?| ? Decreased GFR ? + --+ --+ ------+| ?30-59 ?| ?Stage three ?| ? Stage three ? + --+ --+ ------+| ?15-29 ?| ?Stage four ? | ? Stage four ?+ ---+ ---+ -------+| ?<15 (or dialysis) ? ?| ?Stage five ? | ? Stage five ?+ ---+ ---+ -------+ *Each stage assumes the associated GFR level has been in effect for at least three months. ?Stages 1 to 5, with or without kidney disease, indicate chronic kidney disease. Notes: Determination of stages one and two (with eGFR >59mL/min/1.73 m2) requires estimation of kidney damage for at least three months as defined by structural or functional abnormalities of the kidney, manifested by either:Pathological abnormalities or Markers of kidney damage (including abnormalities in the composition of the blood or urine or abnormalities in imaging tests). Lab Interpretation Abnormal (test code = 30838-1) [facility] CenterLIPASE, [id number] 06:09:44 Test Item Value Reference Range Interpretation Comments LIPASE (test code = 2147810221) 101 U/L 0-220 Lab Interpretation (test code = Normal 95132-7) [facility] CenterCB WITH [id number] 05:51:59 Test Item Value Reference Range Interpretation Comments WBC (test code = 5.65 See_Comment [Automated 6607-2) message] The sy stem which generated this result transmitted reference range : 4.20 - 10.70 10*3/?L. The reference range was not used to interpret this result as normal/abnormal . RBC (test code = 5.73 See_Comment H [Automated 789-8) message] The sy stem which generated this result transmitted reference range : 4.26 - 5.52 10*6/?L. The reference range was not used to interpret this result as normal/abnormal . HGB (test code = 15.5 g/dL 12.2-16.4 718-7) HCT (test code = 48.6 % 38.4-49.3 4544-3) MCV (test code = 84.8 fL 81.7-95.6 787-2) MCH (test code = 27.1 pg 26.1-32.7 785-6) MCHC (test code = 31.9 g/dL 31.2-35.0 786-4) RDW-SD (test code = 56.7 fL 38.5-51.6 H 59576-1) RDW-CV (test code = 19.4 % 12.1-15.4 H 788-0) PLT (test code = 232 See_Comment [Automated 777-3) message] The sy stem which generated this result transmitted reference range : 150 - 328 10*3/ ?L. The reference r michael was not used to interpret this result as normal/abnormal . MPV (test code = 10.5 fL 9.8-13.0 20075-7) NRBC/100 WBC (test 0.0 See_Comment [Automat ed code = 9360766020) message] The system which generated this result transmitted reference range : 0.0 - 10.0 /100 WBCs. The refer ence range was not u sed to interpret th is result as normal/abnormal . NRBC x10^3 (test code See_Comment [Auto mated = 3486778858) message] The s ystem which generated this result transmitted reference range : 10*3/?L. The reference range was not used to interpret this result as normal/abnormal . GRAN MAT (NEUT) % 68.1 % (test code = 770-8) IMM GRAN % (test code 0.20 % = 6334780528) LYMPH % (test code = 20.0 % 736-9) MONO % (test code = 9.2 % 5905-5) EOS % (test code = 1.6 % 713-8) BASO % (test code = 0.9 % 706-2) GRAN MAT x10^3(ANC) 3.85 10*3/uL 1.99-6.95 (test code = 7313454646) IMM GRAN x10^3 (test 0.00-0.06 code = 0144647183) LYMPH x10^3 (test code 1.13 10*3/uL 1.09-3.23 = 731-0) MONO x10^3 (test code 0.52 10*3/uL 0.36-1.02 = 742-7) EOS x10^3 (test code = 0.09 10*3/uL 0.06-0.53 711-2) BASO x10^3 (test code 0.05 10*3/uL 0.01-0.09 = 704-7) Lab Interpretation Abnormal (test code = 85595-0) [facility] CenterCOVID 19 Asymptomatic IH [id number] 10:17:00 Test Item Value Reference Range Interpretation Comments COVID 19 Asymptomatic Negative Negative A nega tive result is IH AG (test code = presumpti ve and should COVNONPUIAG) be confirmedwit h an FDA authorized mole cular assay, if neces jeramy forpatient susana gement.A positive result does not rule out co-inf ections withother patho gens.This test detects lesley th viable (live) and non-viable,SARS -CoV, and SARS-CoV-2. Valentina t performance dep ends on theamount of vi michael (antigen) in th e sample.This valentina t has not been FDA cleare d or approved; the t est hasbeen authori zed by FDA under an Em ergency Use Authorizati on(EUA) for use by labo ratories certified under the CLIA thatmeet the requirements to perform moderate, high or waivedcomplexit y tests. - CTA HEART W CN ART/[id number] 00:00:00 [facility] KADIE GONSALESName: ALBERT MARQUEZ : 1950 Sex: M Name: ALBERT MARQUEZ [facility] Kadie Gonsales : 1950 Age/S: 72 / M [address] [place] [address] Blvd Unit #: [id number] Loc: [place] [address] Phys: Jose Reinoso Acct: [id number] Dis Date: Status: REG CLI PHONE #: [phone] Exam Date: 05/31/2022 1012 FAX #: [phone] Reason: EXAMS: CPT CODE: [id number] HEART W CN ART/GRAFTS 57811 PROCEDURE INFORMATION: Exam: CTA Heart And Coronary Arteries With Contrast Exam date and time: 05/31/2022 10:09 AM Age: 72 years old Clinical indication: Other: Aortic stenosis TECHNIQUE: Imaging protocol: CT angiography of the heart, coronary arteries, and bypass grafts (when present) with contrast including 3D image postprocessing. Standard prospective cardiac-gatedCAC scoring protocol was used for image acquisition. Following intravenous contrast administration, ECG gated CTA was performed. 3D rendering (Not supervised by radiologist): MIP and/or 3D reconstructed images were created by the technologist. Radiation optimization: All CT scans at this facility use a t least one of these dose optimization techniques: [...] aorta. There is a left sided aortic arch.There is no evidence of aortic dissection. Aortic [...] ascending aorta measures 31.8 x 33.6 mm. Thedistance from the annulus to the RCA ostium is 22.9 mm. The distance from the annulus to the LM ostium is 15.1 mm. CORONARY ARTERIES: Normal origin of the coronary arteries. There is coronary atheroscle rosis however the study was not tailored for the assessment of the coronaries. CARDIAC CHAMBERS: Mild cardiomegaly. No LA or LV thrombus. Mild PAGE 1 Signed Report (CONTINUED) Name: ALBERT MARQUEZ [facility] : 1950 Age/S: 72 / M [address] [place] [address] Blvd Unit #: [id number] Loc: [place] [address] Phys: Jose Reinoso [facility] Acct: [id number] Dis Date: Status: REG CLI PHONE #: [phone] Exam Date: 05/31/2022 1012 FAX #: [phone] Reason: EXAMS: CPT CODE: [id number] CTA HEART W CN ART/GRAFTS 64281 (Continued) mitral annular calcification. PERICARDIUM: No evidence [...] is normal. There is no intra-abdominal or retro peritoneal adenopathy. Mild wall thickening of the underdistended bladder. Prostate gland and seminal vesicles within normal limits. BONES AND SOFT TISSUES: There are no bony lytic or blastic lesions. PAGE 2 Signed Report (CONTINUED) Name: ALBERT MARQUEZ [facility] : 1950 Age/S: 72 / M 48 [address] [facility] [address] Unit #: [id number] Loc: [place] [address] Phys: Jose Reinoso [facility] Acct: [id number] Dis Date: Status: REG CLI PHONE #: [phone] Exam Date: 05/31/2022 1012 FAX #: [phone] Reason: EXAMS: CPT CODE: [id number] CTA HEART W CN ART/GRAFTS 19241 (Continued) Small uncomplicated fat containing umbilical hernia. IMPRESSION: Mild atherosclerosis of the abdominal aorta which is widely patent with a minimal luminal diameter of 18 x 17 mm in the infrarenal segment. Moderate atherosclerosis of the bilateral iliofemoral branches. The bilateral common iliac, external iliac and common femoral arteries are patent, measuring 6 mm or greater. Mild wall thickening of the underdistendedbladder. This could simply be the result of underdistention however a mild cystitis is not excluded.Clinical correlation and correlation with urinalysis recommended. at 1723 Reported and signed by: Wood Duran M.D. CC: Jose BAIRD AgbaleTechnologist:Berry Hearn, RT(R)(CT) CTDI: DLP: Trnscb Date/Time: 05/31/2022 (1722) [email or web address] Orig Print D/T: S: 05/31/2022 (1722) PAGE 3 Signed Report- CTA ABD PEL W [id number] 00:00:00 [facility] 1950 Sex: M Name: ALBERT MARQUEZ [facility] : 1950 Age/S: 72 / M [address] [place] [address] Bl Unit #: [id number] Loc: [place] [address] Phys: Jose Reinoso Acct: [id number] Dis Date: Status: REG CLI PHONE #: [phone] Exam Date: 05/31/2022 1012 FAX #: [phone] Reason: 135.0, SEVERE AORTIC STENOSIS. EXAMS: CPT CODE: [id number] CTA ABD PEL W CONT 27096 PROCEDURE INFORMATION: Exam: CTA Heart And Coronary [...] atherosclerosis of the thoracic aorta. There is aleft sided aortic arch. There is no evidence [...] PAGE 1 Signed Report (CONTINUED) Name: ALBERT MARQUEZ [facility] : 1950 Age/S: 72 / M [address] [place] [address] Blvd Unit #: [id number] Loc: [place] [address] Phys: Jose Reinoso [facility] Acct: [id number] Dis Date: Status: REG RAMESHHONE #: [phone] Exam Date: 05/31/2022 1012 FAX #: [phone] Reason: 135.0, SEVERE AORTIC STENOSIS. EXAMS: CPT CODE: [id number] CTA ABD PEL W CONT 82314 (Continued) mitral annular calcification. PERICARDIUM: No evidence [...] LEFT common iliac, external iliac and common fe moral arteries are patent, measuring 6 mm or [...] PAGE 2 Signed Report (CONTINUED) Name: [facility] : 1950 Age/S: 72 / M [address] [place] [address] Unit #: [id number] Loc: [place] [address] Phys: Jose Reinoso Acct: [id number] Dis Date: Status: REG CLI PHONE #: [phone] Exam Date: 05/31/2022 1012 FAX #: [phone] Reason: 135.0, SEVERE AORTIC STENOSIS. EXAMS: CPT CODE: [id number] CTA ABD PEL W CONT 65935 (Continued) Small uncomplicated fat containing umbilical hernia. [...] RT(R)(CT) CTDI: DLP: Trnscb Date/Time: 05/31/2022 (172) Whitney.[email or web address] Orig Print D/T: S: 05/31/2022 (1728) PAGE 3 Signed Report- CT ANGIO [id number] 00:00:00[facility] KADIE GONSALESName: ALBERT MARQUEZ : 1950 Sex: M Name: ALBERT MARQUEZ [facility] [place] : 1950 Age/S: 72 / M [address] [place] [address] Blvd Unit #: [id number] Loc: [place] [address] Phys: Jose Reinoso [employer] Acct: [id number] Dis Date: Status: REG CLI PHONE #: [phone] Exam Date: 05/31/2022 1012 FAX #: [phone] Reason: 135.0 , SEVERE AORTIC STENOSIS. EXAMS: CPT CODE: [id number] CT ANGIO CHEST 15957 PROCEDURE INFORMATION: Exam: CTA Heart And Coronary [...] Pharmacological intervention: None. COMPARISON: No relevant prior studiesavailable. FINDINGS: CARDIAC CTA/THORACIC CTA: AORTIC VALVE: There [...] origin of the coronary arteries. There is c oronary atherosclerosis however the study was not tailored for the assessment of the coronaries. CARDIAC CHAMBERS: Mild cardiomegaly. No LA or LV thrombus. Mild PAGE 1 Signed Report (CONTINUED) Name: ALBERT MARQUEZ [facility] : 1950 Age/S: 72 / M [address] [place] [address] Blvd Unit #: [id number] Loc: [place] [address] Phys: ChrisstephaniemikaJose INTERNATIONAL MARKETING MANAGER Acct: [id number] Dis Date: Status: REG CLI PHONE #: [phone] Exam Date: 05/31/2022 1012 FAX #: [phone] Reason: 135.0 , SEVERE AORTIC STENOSIS. EXAMS: CPT CODE: [id number] CT ANGIO CHEST 28670 (Continued) mitral annular calcification. PERICARDIUM: No evidence [...] score of the aortic valve is 1658. A ortic annulus 26.6 x 21 mm, area of [...] LEFT common iliac, external iliac and common femoralarteries are patent, measuring 6 mm or greater. ABDOMEN and PELVIS: The liver, gallbladder, biliary ducts, pancreas, spleen, kidneys are unremarkable. Mild thickening of the bilateral adrenal glands, consistent with mild hyperplasia. The stomach, small bowel and colon are unremarkable. The appendix isnormal. There is no intra-abdominal or retroperitoneal adenopathy. Mild wall thickening of the underdistended bladder. Prostate gland and seminal vesicles within normal limits. BONES AND SOFT TISSUES:There are no bony lytic or blastic lesions. PAGE 2 Signed Report (CONTINUED) Name: ALBERT MARQUEZ [facility] : 1950 Age/S: 72 / M [address] [place] [address] Blvd Unit #: [id number] Loc: [place] [address] Phys: Jose Reinoso [facility] Acct: [id number] Dis Date: Status: REG CLI PHONE #: [phone] Exam Date: 05/31/2022 1012 FAX #: [phone] Reason: 135.0 , SEVERE AORTIC STENOSIS. EXAMS: CPT CODE: [id number] CT ANGIO CHEST 77779 (Continued) Small uncomplicated fat containing umbilical hernia. IM PRESSION: Mild atherosclerosis of the abdominal aorta which [...] (1722) [email or web address] Orig Print D/T: S: 05/31/2022 (4135) PAGE 3 Signed ReportGLUCOSE [id number] 09:36:00 Test Item Value Reference Range Interpretation Comments GLUCOSE BEDSIDE (test 137 MG/DL 70-110 H Perfor med by certified code = GLUBED) hydrotel operator at [facility] BASIC METABOLIC [id number] 16:24:00 Test Item Value Reference Range Interpretation [...] = 8.9 mg/dL 8.0-10.5 N CA) PROTHROMBIN [id number] 16:19:00 Test Item Value Reference Range Interpretation [...] (to prevent recurrent infar ct). CBC W/AUTO [id number] 16:09:00 Test Item Value Reference Range Interpretation [...] DIFF REQUIRED (test code NO = MDIFF) Notes Date/Time Note Provider Source 2022-06-02 08:57:00-00:00 [id number] [place] [address] patient name: albert marquez admit date: 05/31/22 account no: [id number] room no: age: 72 report type: pulmonary function report sex: m admitting physician: attending physician:jose reinoso study date: full pulmonary function test interpretation spirometry: fvc is 41% of predicted. fev1 is 33% of predicted, no response to bronchodilator. ratio is 59. total lung capacity 77%. rv is 129%. diffusion c apacity is 19%. full pulmonary function test: severe copd, gold stage iii. dictated by: dorothy baer md wt: pft:jacques/carol/nts dd: 06/02/2022 08:57:29 dt: 06/02/2022 09:52:31 conf#: [id number]/did#: [id number] authenticated by dorothy baer md on 06/06/2022 08:17:48 am electronically signed by dorothy baer md on 02/20 at 0817 patient name: albert marquez 147 2022-05-11 15:06:00-00:00 [facility] ([facility]) clinical note report#:[id number] report status: signed date:05/11/22 time: 1506 patient: albert marquez unit #: [id number] room/bed: : 48 age: 72 sex: m attend: jerod valadez md adm dt: 05/11/22 author: emma coates p * all edits or amendments must be made on the [employer] document * clinical note note: 72-year-old -[place] male with past [facility] history of hypertension, hyperlipidemia, diabetes (on insulin), cad statu s post pci/stenting, atrial fibrillation, who has been experiencing worsenin g shortness of breath and dizziness. he has been admit arelis to the hospital today for chris and found to have severe aortic stenosis. i am making arrangements for mr. marquez to see dr molina in clinic next week as dr molina is in the or and patient does not want to wait. electronically signed by emma coates on 05/12/22 at 1522 electronically signed by juan miguel molina md on 05/24/22 at 0953 rpt #:[id number] end of report 2022-05-11 15:06:00-00:00 [facility] ([facility]) Clinical Note REPORT#:[id number] REPORT STATUS: Signed DATE:05/11/22 TIME: 1506 PATIENT: ALBERT MARQUEZ UNIT #: [id number] ROOM/BED: : 48 AGE: 72 SEX: M ATTEND: Jerod Valadez MD ADM AUTHOR: Emma Coates P * ALL edits or amendments must be made on the [employer] document * Clinical Note Note: 72-year-old -[place]ien male with past [facility] history of hypertension, hyperlipidemia, diabetes (on insulin), CAD statu s post PCI/stenting, atrial fibrillation, who has been experiencing worsenin g shortness of breath and dizziness. He has been admit arelis to the hospital today for CHRIS and found to have severe aortic stenosis. I am making arrangements for Albert Urmila to see Dr Molina in clinic next week as Dr Molina is in the OR and patient does not want to wait. at 1522 RPT #:[id number] END OF REPORT"
[2023-03-16 12:21] LABS: Absolute Lymphocytes (CBC) 1.2 K/uL (0.7-4.9); Hematocrit 48.4 % (39.6-49.0); MPV 8.4 fL (7.6-11.3)
--- NOTE | 2023-03-16 12:29 | RAD REPORT ---
EXAM DESCRIPTION: RADChest Single View03/16/2023 11:54 am CLINICAL HISTORY: DYSPNEA COMPARISON: Chest Single View dated 01/26/2023; Chest Single View dated 01/24/2023; Chest Single View dated 07/21/2022; Chest Single View dated 07/19/2022 TECHNIQUE: Portable AP view of the chest. FINDINGS: Patchy central lung opacities, progressive since the prior exam, particularly at the left mid lung and right lower lungs. No pneumothorax or effusion. The heart is again mildly enlarged. Med iastinal contours are unchanged. IMPRESSION: Progressive patchy opacities, could reflect developing edema or pneumonia.
[2023-03-16 12:32] LABS: Protime INR 1.13
[2023-03-16 12:38] LABS: ALT/SGPT 17 U/L (16-61); AST/SGOT 17 U/L (15-37); Albumin 1.9 g/dL (3.4-5.0); Alkaline Phosphatase 68 U/L (45-117); BUN Blood Urea Nitrogen 28 mg/dL (7-18); Bicarbonate 29 mEq/L (21-32); Bilirubin Total 0.2 mg/dL (0.2-1.0); Glomerular Filtration Rate 29 ml/min (=/>90); Glucose Level 182 mg/dL (74-106); NT PRO-BNP 16473 pg/mL (<450); Potassium 4.7 mEq/L (3.5-5.1); Protein, Total 6.9 g/dL (6.4-8.2); Sodium Level 136 mEq/L (136-145)
[2023-03-16 12:41] LABS: Bilirubin Direct < 0.1 mg/dL (0-0.2); Bilirubin Indirect, Calculated ND mg/dL (0.2-0.8)
[2023-03-16 12:42] LABS: Troponin High Sensitivity 88.6 pg/mL (<58.9)
[2023-03-16] MEDS ORDERED: FUROSEMIDE 40 MG/4 ML VIAL ONE ×2 (13:01→17:21)
--- NOTE | 2023-03-16 13:05 | EDPHYS ---
Physician Documentation [facility] Name: Julianna Kearns Age: 73 yrs Sex: Male : 1950 Arrival Date: 03/16/2023 Time: 10:54 Bed 17 Private MD: ED Physician Kei Cantrell HPI: 03/16 11:18 This 73 yrs old Black Male presents to ER via Wheelchair with complaints of Heart sp3 failure. 11:18 73-year-old male with history of atrial fibrillation, congestive heart failure status sp3 post multiple cardiac stents, diabetes, hyperlipidemia, presents to the ED referred from Dr. Donis office for admission for CHF exacerbation. Patient has been noncompliant on his medications and therefore is in a fluid overloaded state. He denies any chest pain, headache, fever, URI symptoms, abdominal pain, nausea, vomiting, diarrhea, back pain, unilateral swelling, or any other signs or symptoms on ROS at this time.. Historical: - Allergies: 11:00 PENICILLINS; cm10 - PMHx: 11:00 Atrial Fib; caridac stent; Diabetes - NIDDM; Hypercholesterolemia; Hypertension; cm10 - Immunization history:: Client reports receiving the 2nd dose of the Covid vaccine. - Social history:: Smoking status: Patient denies any tobacco usage or history of. ROS: 11:22 Constitutional: Negative for fever, chills, and weight loss, Eyes: Negative for injury, sp3 pain, redness, and discharge, ENT: Negative for injury, pain, and discharge, Neck: Negative for injury, pain, and swelling, Abdomen/GI: Negative for abdominal pain, nausea, vomiting, diarrhea, and constipation, Back: Negative for injury and pain, MS/Extremity: Negative for injury and deformity, Skin: Negative for injury, rash, and discoloration, Neuro: Negative for headache, weakness, numbness, tingling, and seizure, Psych: Negative for depression, anxiety, suicide ideation, homicidal ideation, and hallucinations, Allergy/Immunology: Negative for hives, rash, and allergies. 11:22 All other systems are negative. Exam: 11:22 Constitutional: This is a well developed, well nourished patient who is awake, alert, sp3 and in no acute distress. Head/Face: Normocephalic, atraumatic. Eyes: Pupils equal round and reactive to light, extra-ocular motions intact. Lids and lashes normal. Conjunctiva and sclera are non-icteric and not injected. Cornea within normal limits. Periorbital areas with no swelling, redness, or edema. Neck: Trachea midline, no thyromegaly or masses palpated, and no cervical lymphadenopathy. Supple, full range of motion without nuchal rigidity, or vertebral point tenderness. No Meningismus. Chest/axilla: Normal chest wall appearance and motion. Nontender with no deformity. No lesions are appreciated. Cardiovascular: Regular rate and rhythm with a normal S1 and S2. No gallops, murmurs, or rubs. Normal PMI, no JVD. No pulse deficits. Abdomen/GI: Soft, non-tender, with normal bowel sounds. No distension or tympany. No guarding or rebound. No evidence of tenderness throughout. Back: No spinal tenderness. No costovertebral tenderness. Full range of motion. Neuro: Awake and alert, GCS 15, oriented to person, place, time, and situation. Cranial nerves II-XII grossly intact. Motor strength 5/5 in all extremities. Sensory grossly intact. Cerebellar exam normal. Normal gait. Psych: Awake, alert, with orientation to person, place and time. Behavior, mood, and affect are within normal limits. 11:22 Respiratory: Patient with bibasilar Rales and pitting edema bilaterally.. 11:23 ECG was reviewed by the Attending Physician. sp3 12:38 ECG was reviewed by the Attending Physician. EKG demonstrates normal sinus rhythm at 77 sp3 bpm with normal intervals, normal QRS, normal axis, nonspecific ST/T changes without evidence of acute ischemia. Vital Signs: 11:00 BP 116 / 80; Pulse 74; Resp 24; Temp 97.2; Pulse Ox 92% on R/A; Weight 97.98 kg; Height cm10 6 ft. 0 in. ; 12:23 BP 153 / 90; Pulse 76; Resp 18; Temp 98.2; Pulse Ox 92% on R/A; ml4 14:23 BP 149 / 84; Pulse 92; Resp 18; Pulse Ox 100% on R/A; ld1 14:38 BP 149 / 84; Pulse 81; Resp 18; Pulse Ox 99% on R/A; Pain 0/10; ml4 15:23 BP 159 / 95; Pulse 85; Resp 18; Pulse Ox 100% on R/A; ld1 11:00 Body Mass Index 29.29 (97.98 kg, 182.88 cm) cm10 14:38 Pain Scale: Adult ml4 Edith Coma Score: 12:12 Eye Response: spontaneous(4). Motor Response: obeys commands(6). Verbal Response: ml4 oriented(5). Total: 15. MDM: 11:08 Patient medically screened. sp3 11:23 Data reviewed: vital signs, nurses notes, old medical records, lab test result(s), EKG, sp3 radiologic studies. 11:23 ED course: 73-year-old male with multiple medical problems and prior CHF exacerbation sp3 now presents again for fluid overload status referred by PCP. We will start Lasix and obtain initial work-up in the ED and admit patient to hospitalist service for continued care and CHF resolution. Etiology of his CHF is noncompliance of medications and I do not believe patient is having an acute cardiac event that is contributing to this as a primary factor.. 13:03 ED course: BNP at 16,000 and troponin at 88.6 mild elevation however creatinine is at sp3 2.3. Lasix has been given and we will admit to hospitalist service with cardiology consultation at their discretion.. 03/16 11:07 Order name: Basic Metabolic Panel; Complete Time: 12:44 sp3 03/16 11:07 Order name: CBC with Diff sp3 03/16 11:07 Order name: LFT's; Complete Time: 12:44 sp3 03/16 11:07 Order name: Magnesium; Complete Time: 12:44 sp3 03/16 11:07 Order name: NT PRO-BNP; Complete Time: 12:44 sp3 03/16 11:07 Order name: PT-INR; Complete Time: 12:39 sp3 03/16 11:07 Order name: Troponin HS; Complete Time: 12:44 sp3 03/16 13:08 Order name: CBC Smear Scan EDMS 03/16 16:44 Order name: CBC with Automated Diff EDMS 03/16 16:44 Order name: CBC with Automated Diff EDMS 03/16 16:44 Order name: Comprehensive Metabolic Panel EDMS 03/16 16:44 Order name: Comprehensive Metabolic Panel EDMS 03/16 16:44 Order name: Magnesium EDMS 03/16 16:44 Order name: Magnesium EDMS 03/16 16:44 Order name: NT PRO-BNP EDMS 03/16 16:44 Order name: NT PRO-BNP EDMS 03/16 16:44 Order name: Phosphorus EDMS 03/16 16:44 Order name: Phosphorus EDMS 03/16 16:44 Order name: Troponin High Sensitivity EDMS 03/16 16:44 Order name: Troponin High Sensitivity EDMS 03/16 16:44 Order name: Troponin High Sensitivity EDMS 03/16 16:44 Order name: Troponin High Sensitivity EDMS 03/16 11:07 Order name: XRAY Chest (1 view); Complete Time: 12:39 sp3 03/16 16:44 Order name: Echo with Doppler EDMS 03/16 16:44 Order name: Echo with Doppler EDMS 03/16 11:07 Order name: EKG; Complete Time: 11:08 sp3 03/16 13:25 Order name: Diet Heart Healthy; Complete Time: 13:26 ml4 03/16 16:44 Order name: CONS Physician Consult EDMS 03/16 11:07 Order name: Cardiac monitoring; Complete Time: 12:12 sp3 03/16 11:07 Order name: EKG - Nurse/Tech; Complete Time: 12:12 sp3 03/16 11:07 Order name: IV Saline Lock; Complete Time: 12:12 sp3 03/16 11:07 Order name: Labs collected and sent; Complete Time: 12:12 sp3 03/16 11:07 Order name: O2 Per Protocol; Complete Time: 11:36 sp3 03/16 11:07 Order name: O2 Sat Monitoring; Complete Time: 11:36 sp3 Administered Medications: 12:54 Drug: Furosemide IVP 40 mg Route: IVP; Site: right forearm; ml4 Disposition Summary: 03/16/23 13:04 Hospitalization Ordered Hospitalization Status: Inpatient Admission sp3 Provider: Joel Garrett3 [facility] sp3 Condition: Stable sp3 Problem: an acute exacerbation sp3 Symptoms: have worsened sp3 Bed/Room Type: Standard sp3 Room Assignment: 430(03/16/23 17:34) aa5 Diagnosis - CHF exacerbation, dyspnea, pedal edema sp3 Forms: - Medication Reconciliation Form sp3 - SBAR form sp3 Signatures: Dispatcher [employer] EDMS Ange Kebede, VETERINARY MEAT INSPECTOR-C VETERINARY MEAT INSPECTOR-Csnw Angelita Galeana, RN RN aa5 Kei Cantrell MD MD sp3 Charmaine Olmedo RN RN cm10 ERICA EldridgeIII, ERICA Medrano RN ml4 Corrections: (The following items were deleted from the chart) 17:34 13:04 sp3 aa5
--- NOTE | 2023-03-16 13:05 | ER ---
Nurse's Notes [facility] Name: Julianna Kearns Age: 73 yrs Sex: Male : 1950 Arrival Date: 03/16/2023 Time: 10:54 Bed 17 Private MD: Diagnosis: CHF exacerbation, dyspnea, pedal edema Presentation: 03/16 11:00 Chief complaint: Patient states: Came straight from Dr. Donis office for heart failure. cm10 SOB, CP, weaker than normal L side for past few months. Coronavirus screen: Vaccine status: Patient reports receiving the 2nd dose of the covid vaccine. Client denies travel out of the [place] in the last 14 days. difficulty breathing, fatigue, shortness of breath. Ebola Screen: Patient denies travel to an Ebola-affected area in the 21 days before illness onset. Initial Sepsis Screen: Does the patient meet any 2 criteria? RR > 20 per min. No. Patient's initial sepsis screen is negative. Does the patient have a suspected source of infection? Yes: Productive cough/pneumonia. Risk Assessment: Do you want to hurt yourself or someone else? Patient reports no desire to harm self or others. Onset of symptoms was December 31, 2022. 11:00 Method Of Arrival: Wheelchair cm10 11:00 Acuity: VERONICA 2 cm10 Triage Assessment: 11:02 General: Appears uncomfortable, ill, Behavior is calm, cooperative, appropriate for cm10 age. Pain: Complains of pain in legs Quality of pain is described as aching, pressure. Neuro: Reports weakness. Cardiovascular: Reports chest pain, fatigue, shortness of breath. Respiratory: Reports shortness of breath on exertion labored breathing. Musculoskeletal: Reports B leg swelling. Historical: - Allergies: 11:00 PENICILLINS; cm10 - PMHx: 11:00 Atrial Fib; caridac stent; Diabetes - NIDDM; Hypercholesterolemia; Hypertension; cm10 - Immunization history:: Client reports receiving the 2nd dose of the Covid vaccine. - Social history:: Smoking status: Patient denies any tobacco usage or history of. Screenin:22 [facility] ED Fall Risk Assessment (Adult) History of falling in the last 3 months, ml4 including since admission. [facility] ED Fall Risk Assessment (Adult) Confusion or Disorientation No (0 pts) Intoxicated or Sedated No (0 pts) Impaired Gait No (0 pts) Mobility Assist Device Used No (0 pt) Altered Elimination No (0 pt) Score/Fall Risk Level 0 - 2 = Low Risk Oriented to surroundings, Maintained a safe environment, Educated pt \T\ family on fall prevention, incl call for assistance when getting out of bed. Abuse screen: Denies threats or abuse. Nutritional screening: No deficits noted. Tuberculosis screening: No symptoms or risk factors identified. Assessment: 12:10 General: Appears in no apparent distress. comfortable, Behavior is calm, cooperative, ml4 appropriate for age, Reports fatigue for Denies fever, feeling ill, chills. Pain: Denies pain. Neuro: Reports weakness generalized Denies blurred vision dizziness, numbness headache. Cardiovascular: Reports fatigue, Denies chest pain. Respiratory: No deficits noted. 14:40 Reassessment: Patient appears in no apparent distress at this time. Patient denies pain ml4 at this time. 16:34 Reassessment: Patient appears in no apparent distress at this time. No changes from ml4 previously documented assessment. Vital Signs: 11:00 BP 116 / 80; Pulse 74; Resp 24; Temp 97.2; Pulse Ox 92% on R/A; Weight 97.98 kg; Height cm10 6 ft. 0 in. ; 12:23 BP 153 / 90; Pulse 76; Resp 18; Temp 98.2; Pulse Ox 92% on R/A; ml4 14:23 BP 149 / 84; Pulse 92; Resp 18; Pulse Ox 100% on R/A; ld1 14:38 BP 149 / 84; Pulse 81; Resp 18; Pulse Ox 99% on R/A; Pain 0/10; ml4 15:23 BP 159 / 95; Pulse 85; Resp 18; Pulse Ox 100% on R/A; ld1 11:00 Body Mass Index 29.29 (97.98 kg, 182.88 cm) cm10 14:38 Pain Scale: Adult ml4 Edith Coma Score: 12:12 Eye Response: spontaneous(4). Motor Response: obeys commands(6). Verbal Response: ml4 oriented(5). Total: 15. ED Course: 10:55 Arm band placed on Patient placed in an exam room, on a stretcher. cm10 10:58 Patient arrived in ED. im 11:02 Triage completed. cm10 11:04 Margarita Wade, ERICA is Primary Nurse. ld1 11:06 Kei Cantrell MD is Attending Physician. sp3 11:56 XRAY Chest (1 view) In Process Unspecified. EDMS 12:10 No provider procedures requiring assistance completed. Inserted saline lock: 20 gauge ml4 in right forearm, using aseptic technique. 12:13 LFT's Sent. ml4 12:13 CBC with Diff Sent. ml4 12:13 Basic Metabolic Panel Sent. ml4 12:13 Magnesium Sent. ml4 12:13 NT PRO-BNP Sent. ml4 12:13 PT-INR Sent. ml4 12:13 Troponin HS Sent. ml4 12:22 No apparent distress. Awaiting lab results. ml4 12:22 Patient has correct armband on for positive identification. Bed in low position. Call ml4 light in reach. Side rails up X2. Adult w/ patient. 12:22 Flushed. ml4 13:04 Joel Garrett MD is Hospitalizing Provider. sp3 16:34 Client placed on continuous cardiac and pulse oximetry monitoring. NIBP monitoring ml4 applied. compliance monitor on. Lights dimmed. PO fluids given. Patient is placed in psych hold. 16:36 No apparent distress. Resting quietly. Awaiting bed assignment. Patient requests ml4 liquids. 17:30 Patient has correct armband on for positive identification. Placed in gown. Bed in low ml4 position. Call light in reach. Side rails up X2. Client placed on continuous cardiac and pulse oximetry monitoring. NIBP monitoring applied. compliance monitor on. Door closed. Diet tray given. Diet: Patient given a heart healthy meal tray. 18:01 Patient admitted, IV remains in place. ld1 Administered Medications: 12:54 Drug: Furosemide IVP 40 mg Route: IVP; Site: right forearm; ml4 Medication: 12:22 VIS not applicable for this client. ml4 Output: 16:33 Urine: 500ml (Voided); Total: 500ml. ml4 Outcome: 13:04 Decision to Hospitalize by Provider. sp3 18:00 Admitted to Med/surg accompanied by cinda, via wheelchair, room 430, with chart, Report ld1 called to ERICA Jasso 18:00 Condition: stable 18:00 Instructed on the need for admit. 18:49 Patient left the ED. ld1 Signatures: Dispatcher [employer] EDMS Margarita Wade RN RN ld1 Kei Cantrell MD MD sp3 Reena Lopez Clarissa, RN RN cm10 ERICA EldridgeIII, Mitchell, RN RN ml4 Corrections: (The following items were deleted from the chart) 12:16 12:10 Inserted saline lock: 20 gauge in right forearm, using aseptic technique. ml4 cm10
[2023-03-16 13:25] LABS: Blood Morphology Comment NOTED (NOT SEEN); Platelet Estimate ADEQ; White Blood Cell Scan OK (OK)
[2023-03-16 13:26] LABS: Anisocytosis SLIGHT
[2023-03-16] MEDS ORDERED: ONDANSETRON 4 MG/2 ML VIAL IV PRN (16:39)
[2023-03-16] MEDS ORDERED: ACETAMINOPHEN 500 MG TAB PO PRN (16:39)
[2023-03-16] MEDS: ENOXAPARIN 40 MG/0.4 ML SQ SCH (17:00)
[2023-03-16] MEDS: FUROSEMIDE 40 MG/4 ML VIAL IV SCH (17:00)
[2023-03-16 17:08] VITALS: BMI 30.1
[2023-03-16] MEDS ORDERED: HYDRALAZINE HCL 20 MG/ML VIAL ONE (17:20)
[2023-03-16] MEDS ORDERED: ENOXAPARIN 40 MG/0.4 ML SQ ONE (17:21)
[2023-03-16] MEDS: HYDRALAZINE HCL 20 MG/ML VIAL IV PRN (17:27)
--- NOTE | 2023-03-16 18:00 | P.HP ---
Certification for Inpatient Patient admitted to: Inpatient With expected LOS: >2 Midnights Patient will require the following post-hospital care: None Practitioner: I am a practitioner with admitting privileges, knowledge of patient current condition, hospital course, and medical plan of care. Services: Services provided to patient in accordance with Admission requirements found in Title 42 Section 412.3 of the Code of Federal Regulations Patient History Date of Service: 03/16/23 Reason for admission: Acute CHF exacerbation History of Present Illness: Patient is a 73-year-old gentleman who came to the hospital with difficulty breathing. Patient has a history of congestive heart failure and was recently found to have moderate to severe aortic stenosis. Patient states that he has had some respiratory distress over the last couple of months. He was in the hospital 2 months ago and treated aggressively with IV Lasix. He said his symptoms got better but his blood pressure has been labile. He comes into the emergency room with elevated blood pressure. Patient was given IV hydralazine. Patient will also be diuresed. We will gently diurese in the setting of his aortic stenosis. Get cardiology consultation. Placed him on nitro and low-dose beta-abbey therapy. At this time, patient will be admitted to the hospital for further treatment. Patient does have elevated JVP. We will continue to monitor patient closely over the next 24 to 48 hours. Hopefully we can get patient diuresed extensively and he should be able to go home in 2 to 3 days. Patient will need inpatient hospitalization. Allergies Penicillins Adverse Reaction (Verified 01/24/23 22:00) Hives Home Medications: Apixaban [Eliquis *] 2.5 mg PO BID #60 tab 01/29/23 Aspirin Chewable [Aspirin Chewable*] 81 mg PO DAILY tab.chew 01/29/23 Atorvastatin Calcium [Lipitor] 40 mg PO BEDTIME #30 tab 01/29/23 Benzonatate [Tessalon Perle*] 100 mg PO TID PRN 7 Days #20 cap 01/29/23 Furosemide [Lasix] 80 mg PO BIDL #60 tab 01/29/23 Hydralazine HCl 50 mg PO TID #90 tab 01/29/23 Nitroglycerin Patch [Transderm-Nitro 0.2MG/Hr Patch*] 5 mg TD DAILY #30 patch 01/29/23 Spironolactone [Aldactone*] 25 mg PO BID #60 tab 01/29/23 carvediloL [Coreg*] 12.5 mg PO BID #60 tab 01/29/23 levoFLOXacin [Levaquin*] 500 mg PO Q48H 14 Days #7 tab 02/07/23 - Past Medical/Surgical History Has patient received pneumonia vaccine in the past: Yes Diabetic: Yes -: hypertension -: hyperlipidemia -: Atrial fibrillation -: IDDM -: Coronary artery disease -: Aortic stenosis -: Cardiac Catheterization with stent placement -: Right leg surgery Psychosocial/ Personal History: Patient is . - Family History Brother Medical History: Heart disease, Hypertension - Social History Smoking Status: Never smoker Alcohol use: No CD- Drugs: No Review of Systems 10-point ROS is otherwise unremarkable Physical Examination - Vital Signs Temperature: 98 F Blood Pressure: 196/100 Pulse: 89 Respirations: 18 Pulse Ox (%): 94 - Physical Exam General: Alert, In no apparent distress, Oriented x3 HEENT: Atraumatic, PERRLA, Mucous membr. moist/pink, EOMI, Sclerae nonicteric Neck: Supple, 2+ carotid pulse no bruit, JVD distended Respiratory: Diminished, Crackles/rales Cardiovascular: Regular rate/rhythm, Normal S1 S2, Systolic murmur Gastrointestinal: Normal bowel sounds, Soft and benign, Non-distended, No tenderness Musculoskeletal: No clubbing, No tenderness, Swelling Integumentary: No rashes, Tenderness/swelling Neurological: Normal gait, Normal speech, Normal tone, Sensation intact, Cranial nerves 3-12 intact, Normal affect, Abnormal strength Lymphatics: No axilla or inguinal lymphadenopathy - Studies Laboratory Data (last 24 hrs) 03/16/23 12:10: PT 12.4, INR 1.13 03/16/23 12:10: WBC 6.00, Hgb 14.8, Hct 48.4, Plt Count 278 03/16/23 12:10: Sodium 136, Potassium 4.7, BUN 28 H, Creatinine 2.32 H, Glucose 182 H, Magnesium 2.0, Total Bilirubin 0.2, AST 17, ALT 17, Alkaline Phosphatase 68 Assessment & Plan - Problems (Diagnosis) (1) Acute on chronic diastolic heart failure Current Visit: No Status: Acute (2) Acute on chronic systolic heart failure Current Visit: No Status: Acute (3) Aortic stenosis Current Visit: No Status: Acute (4) CHF (congestive heart failure) Current Visit: No Status: Acute Qualifiers: (5) Malignant hypertension Current Visit: No Status: Acute (6) Stented coronary artery Current Visit: No Status: Acute (7) Afib Current Visit: No Status: Chronic Qualifiers: (8) Chronic kidney disease, stage III (moderate) Current Visit: No Status: Chronic Qualifiers: (9) Coronary artery disease Current Visit: No Status: Chronic Qualifiers: - Plan PLAN: 1. Echocardiogram 2. Continue with physical therapy 3. Continue with beta-abbey therapy 4. Cardiology and nephrology consultation 5. Gentle diuresis/hydralazine + nitro 6. Strict I's and O's 7. Repeat CXR 8. Daily weights 9. Education regarding diet and treatment of congestive heart failure Discharge Plan: Home Plan to discharge in: Greater than 2 days - Advance Directives Does patient have a Living Will: No Does patient have a Durable POA for Healthcare: No - Code Status/Comfort Care Code Status Assessed: Yes Code Status: Full Code Critical Care: No Time Spent Managing PTS Care (In Minutes): 45
[2023-03-16] MEDS ORDERED: FUROSEMIDE 20 MG/ 2ML VIAL IV ONE (20:00)
[2023-03-16] MEDS: ENSURE HIGH PROTEIN 237 ML CAN PO SCH (21:00)
[2023-03-16] MEDS ORDERED: HOME MED 1 EA UNK (Hydralazine Hcl [Hydralazine Hcl] 50 MG Tablet) PO SCH ×2 (21:00)
[2023-03-16] MEDS: carvediloL 12.5 MG TAB PO SCH (21:15)
[2023-03-16] MEDS: HYDRALAZINE HCL 25 MG TABLET PO SCH (21:15)
[2023-03-16] MEDS: POTASSIUM 25 MEQ EFFERV TAB PO SCH (21:15)
[2023-03-16] MEDS: ISOSORBIDE DINIT 20 MG TAB PO SCH (21:15)
[2023-03-16] MEDS: ATORVASTATIN 40 MG TAB PO SCH (21:15)
[2023-03-16] MEDS: SPIRONOLACTONE 25 MG TABLET PO SCH (21:20)
[2023-03-17 06:15] LABS: Absolute Lymphocytes (CBC) 1.3 K/uL (0.7-4.9); Hematocrit 45.7 % (39.6-49.0); Lymphocytes % 22.4 % (15.3-44.8); MCV 85.3 fL (80-100); MPV 8.3 fL (7.6-11.3); RBC Red Blood Cell Count 5.36 M/uL (4.33-5.43)
[2023-03-17] MEDS ORDERED: ALBUMIN HUMAN 25% 100 ML IV ONE (07:29)
[2023-03-17 07:50] LABS: Albumin 1.8 g/dL (3.4-5.0); Bilirubin Total 0.5 mg/dL (0.2-1.0); Magnesium 1.9 mg/dL (1.6-2.4); Protein, Total 6.2 g/dL (6.4-8.2)
[2023-03-17 07:56] LABS: Troponin High Sensitivity 81.4 pg/mL (<58.9)
[2023-03-17] MEDS: ENOXAPARIN 40 MG/0.4 ML SQ SCH (08:57)
[2023-03-17] MEDS: FUROSEMIDE 40 MG/4 ML VIAL IV SCH ×2 (08:57→17:11)
[2023-03-17] MEDS: ISOSORBIDE DINIT 20 MG TAB PO SCH ×3 (08:57→20:14)
[2023-03-17] MEDS: SPIRONOLACTONE 25 MG TABLET PO SCH ×2 (08:58→20:14)
[2023-03-17] MEDS: HYDRALAZINE HCL 25 MG TABLET PO SCH ×3 (08:58→20:14)
[2023-03-17] MEDS: ENSURE HIGH PROTEIN 237 ML CAN PO SCH ×3 (08:58→20:14)
[2023-03-17] MEDS: ASPIRIN 81 MG CHEWABLE TABLET PO SCH (08:58)
[2023-03-17] MEDS: carvediloL 12.5 MG TAB PO SCH ×2 (08:58→20:14)
[2023-03-17] MEDS: POTASSIUM 25 MEQ EFFERV TAB PO SCH ×2 (08:58→20:14)
[2023-03-17] MEDS ORDERED: VALSARTAN 80 MG TAB PO SCH (09:00)
--- NOTE | 2023-03-17 19:50 | P.CNS ---
Date of Consult: 03/17/23 Reason for Consult: failure Requesting Physician: oJel Garrett Chief Complaint: Acute CHF exacerbation History of Present Illness: 73M w/ PMHx of CKD3b presumed to be 2/2 Htn nephrosclerosis, baseline serum creatinine 1.7-2.0 (GFR 35-42) as of December 2022, Htn, HLD, afib, congestive heart failure, moderate to severe aortic stenosis, & DM2, who p/w progressive SOB, admitted for CHF exacerbation & accelerated hypertension. patient is receiving antidepressant medications and diuretics. he is referred to nephrology for KAITLIN. Serum creatinine 2.3 on admission, today at 2.2. Urine studies pending. Renal ultrasound in December 2022 unremarkable. Allergies Penicillins Adverse Reaction (Verified 01/24/23 22:00) Hives Home Medications: Apixaban [Eliquis *] 2.5 mg PO BID #60 tab 01/29/23 Aspirin Chewable [Aspirin Chewable*] 81 mg PO DAILY tab.chew 01/29/23 Atorvastatin Calcium [Lipitor] 40 mg PO BEDTIME #30 tab 01/29/23 Benzonatate [Tessalon Perle*] 100 mg PO TID PRN 7 Days #20 cap 01/29/23 Furosemide [Lasix] 80 mg PO BIDL #60 tab 01/29/23 Hydralazine HCl 50 mg PO TID #90 tab 01/29/23 Nitroglycerin Patch [Transderm-Nitro 0.2MG/Hr Patch*] 5 mg TD DAILY #30 patch 01/29/23 Spironolactone [Aldactone*] 25 mg PO BID #60 tab 01/29/23 carvediloL [Coreg*] 12.5 mg PO BID #60 tab 01/29/23 levoFLOXacin [Levaquin*] 500 mg PO Q48H 14 Days #7 tab 02/07/23 - Past Medical/Surgical History Diabetic: Yes -: hypertension -: hyperlipidemia -: Atrial fibrillation -: IDDM -: Coronary artery disease -: Aortic stenosis -: Cardiac Catheterization with stent placement -: Right leg surgery Psychosocial/ Personal History: Patient is . - Family History Brother Medical History: Heart disease, Hypertension - Social History Smoking Status: Former smoker Alcohol use: No CD- Drugs: No Caffeine use: Yes Review of Systems General: Weakness Eyes: Unremarkable ENT: Unremarkable Respiratory: Shortness of Breath, SOB with Excertion Cardiovascular: Unremarkable Gastrointestinal: Unremarkable Genitourinary: Unremarkable Musculoskeletal: Unremarkable Integumentary: Unremarkable Neurological: Unremarkable Lymphatics: Unremarkable Physical Examination Temp Pulse Resp BP Pulse Ox 97.5 F 81 14 155/86 H 94 03/17/23 16:00 03/17/23 17:11 03/17/23 16:00 03/17/23 17:11 03/17/23 16:00 General: Other (appears as his stated age) HEENT: Atraumatic, Normocephalic Neck: Supple, JVD distended Respiratory: Other (symmetric chest expansion) Cardiovascular: No rubs, No murmurs Gastrointestinal: Soft and benign, No guarding Musculoskeletal: No clubbing Integumentary: No warmth Neurological: Normal tone Lymphatics: No axilla or inguinal lymphadenopathy Urinary: Other (no bladder distention) External genitalia: Deferred Rectal: Deferred Conclusions/Impression: # KAITLIN 2/2 accelerated Htn +/- prerenal state Serum creatinine 2.3 on admission, today at 2.2 Urine studies pending. Renal ultrasound in December 2022 unremarkable. [place] by mouth fluid intake BP control # CKD3b presumed to be 2/2 Htn nephrosclerosis Baseline serum creatinine 1.7-2.0 (GFR 35-42) as of December 2022 monitor renal panel # Acute on chronic diastolic heart failure, moderate to severe aortic stenosis Hx of afib, CAD TTE on 12/2022 showed moderate to severe aortic stenosis Continue Lasix 40 mg IV twice a day Continue other cardioprudent medications Do not limit by mouth fluid intake unless he develops hyponatremia less than 130 meq per liter Strict low-sodium diet less than 2 g per day Weigh daily accurately # Accelerated Htn BP meds adjusted # HLD Statin # DM 2 Management per primary team # Secondary hyperparathyroidism Previously taking calcitriol Follow-up serum intact PTH and 25 hydroxy vitamin D level
[2023-03-17] MEDS: ATORVASTATIN 40 MG TAB PO SCH (20:14)
[2023-03-17] MEDS ORDERED: METOPROLOL TAR 50 MG TAB PO SCH (21:00)
[2023-03-18 00:46] VITALS: O2SAT 90
[2023-03-18] MEDS: HYDRALAZINE HCL 20 MG/ML VIAL IV PRN (04:46)
[2023-03-18] MEDS: POTASSIUM 25 MEQ EFFERV TAB PO SCH (08:28)
[2023-03-18] MEDS: HYDRALAZINE HCL 25 MG TABLET PO SCH (08:29)
[2023-03-18] MEDS: ENSURE HIGH PROTEIN 237 ML CAN PO SCH (08:29)
[2023-03-18] MEDS: SPIRONOLACTONE 25 MG TABLET PO SCH (08:30)
[2023-03-18] MEDS: ISOSORBIDE DINIT 20 MG TAB PO SCH (08:30)
[2023-03-18] MEDS: FUROSEMIDE 40 MG/4 ML VIAL IV SCH (08:31)
[2023-03-18] MEDS: ASPIRIN 81 MG CHEWABLE TABLET PO SCH (08:31)
[2023-03-18] MEDS: carvediloL 12.5 MG TAB PO SCH (08:31)
[2023-03-18] MEDS: ENOXAPARIN 40 MG/0.4 ML SQ SCH (08:32)
[2023-03-18 12:28] VITALS: BP 166/86; TEMP 97.1
[2023-03-18 13:30] LABS: Specific Gravity 1.008 (1.005-1.030); Urine Bacteria None Seen /HPF (<20); Urine Bilirubin NEGATIVE (Negative); Urine Blood Negative (Negative); Urine Clarity Clear (Clear); Urine Color Colorless (Yellow); Urine Glucose 1+ (Negative); Urine Protein 2+ (Negative); Urine RBC <5 /HPF (None Seen); Urine Urobilinogen Normal (Normal)
[2023-03-18 14:18] LABS: UR PROTEIN 185.6 mg/dL (<11.9); Urine Protein/Creatinine Ratio 5.8 ratio (<0.15)
--- NOTE | 2023-03-18 22:05 | PN ---
Date of Progress Note: 03/18/2023 Chief Complaint: Acute congestive heart failure exacerbation, cardiorenal syndrome. History Of Present Illness: The patient is a 73-year-old man with history of underlying CKD 3B, pres umed to be secondary to hypertension and hypertensive kidney disease with nephrosclerosis. Baseline serum creatinine level was previously ranging from 1.7 to 2.0 and GFR from 35 to 42. The patient has history of hypertension, hyperlipidemia, atrial fibrillation, congestive heart failure, moderate-to- severe aortic stenosis, diabetes mellitus, and he presented with progressively worse shortness of angy ath. He is admitted for CHF exacerbation and accelerated hypertension. Patient is receiving antidep ressant medication and diuretic. He is referred to safety and health manager for acute kidney injury. Serum crea tinine level on admission was 2.3 and was slightly improved yesterday to 2.2. Review of Systems: Denies chest pain, palpitation. Physical Examination: Lungs: Clear to auscultation bilaterally. Heart: S1, S2. Abdomen: Soft. Extremities: Edema present in both legs, overall improved. Impression And Plan: 1.Acute kidney injury secondary to accelerated hypertension, prerenal state cardiorenal syndrome. S yaquelin creatinine on admission was 2.3, elevated from previous baseline. Chronic kidney disease stage 3B due to hypertensive kidney disease with nephrosclerosis. Monitor electrolytes daily when patient is on diuretic for heart failure, acute on chronic diastolic heart failure, [id number] aortic stenosis, history of atrial fibrillation, coronary artery disease. Patient will follow up with Card iology for aortic stenosis. Continue to monitor blood pressure closely and adjust medication. 2.Diabetes mellitus per primary team. Patient will continue insulin. 3.Secondary hyperparathyroidism. Followup intact PTH and 25-hydroxy vitamin D level is pending. EB/MODL Voice ID: [id number] Report ID: [id number]
--- NOTE | 2023-03-20 17:59 | EKG ---
Test Date: 2023-03-16 Test Time: 12:18:53 Pattern Assembler: Diane DIEZ MEASUREMENT RESULTS: Intervals: Rate: 77 MO: 170 QRSD: 90 QT: 394 QTc: 445 [place]: P: 84 MO: 170 QRS: 128 T: 24 INTERPRETIVE STATEMENTS: Normal sinus rhythm Biatrial enlargement Abnormal ECG Compared to ECG 01/24/2023 09:09:03 Atrial abnormality now present Ventricular premature complex(es) no longer present Left-axis deviation no longer present ST (T wave) deviation no longer present Prolonged QT interval no longer present Electronically Signed On 03-20-23 17:53:08 CDT by Chad Alvarez
== END 2023-03-18 14:06 | disposition home or self-care (01) | DRG 291 ==
LOC: ER 10:54 → ERHOLD 16:40 → 4TH 17:36
PROVIDERS: ADMIT Hospitalist; ATTEND Hospitalist
DX: I13.0 Hypertensive heart and chronic kidney disease with heart failure and stage 1 through stage 4 chronic kidney disease, or unspecified chronic kidney disease (principal); I50.33 Acute on chronic diastolic (congestive) heart failure; N17.9 Acute kidney failure, unspecified; N25.81 Secondary hyperparathyroidism of renal origin; N18.32 Chronic kidney disease, stage 3b; E11.22 Type 2 diabetes mellitus with diabetic chronic kidney disease; E78.5 Hyperlipidemia, unspecified; I48.91 Unspecified atrial fibrillation; I35.0 Nonrheumatic aortic (valve) stenosis; I25.10 Atherosclerotic heart disease of native coronary artery without angina pectoris; Z79.01 Long term (current) use of anticoagulants; Z79.82 Long term (current) use of aspirin; Z79.899 Other long term (current) drug therapy; Z88.0 Allergy status to penicillin; Z95.5 Presence of coronary angioplasty implant and graft; Z87.891 Personal history of nicotine dependence; Z82.49 Family history of ischemic heart disease and other diseases of the circulatory system
CPT/HCPCS: 36415; 71045; 80048; 80053; 80076; 81001; 82043; 82570; 83735; 83880; 83935; 84100; 84132; 84156; 84300; 84484; 85025; 85610; 93005; 96374; 99285; J0360; J1650; J1940; P9047

== ENCOUNTER 2023-04-22 11:21 | Inpatient (IN) | payer OTHER ==
--- OUTSIDE RECORDS SUMMARY | 2023-04-22 11:25 | XMS REPORT | Continuity of Care Document ---
:[address] [facility] [place], [place] t Address [address] [place] [id number] Care Team Providers Name Role Phone KAPIL DONIS Primary Care Physician Unavailable Kapil Donis Attending Clinician Unavailable Carlyn RN, Jose Lazo Attending Clinician Unavailable Romel Yu Attending Clinician Starla Tafoya MD Attending Clinician Kel Yin MD Attending Clinician KEL YIN Attending Clinician Unavailable Brissa Reinoso Attending Clinician Unavailable Chad Valadez Attending Clinician Unavailable Starla Tafoya MD Admitting Clinician STARLA TAFOYA Admitting Clinician Unavailable Physician, No Primary or Family Admitting Clinician Unavaila ble Payers Payer Name Policy Type Policy Number Effective Date Expiration Date S ource UNITED [id number] [facility] Problems Condition Condition Condition Status Onset Resolution Last Treating Co mments Source Name Details Category Date Date Treatment Clinician Date Nausea and Nausea and Disease Active U nivers vomiting vomiting 6-07 ity of in adult in adult 00:00: [place] 00 Medical Branch MULLER MULLER Disease Active Univers (dyspnea (dyspnea 607 ity of on on 00:00: [place] exertion) exertion) 00 Medi rafael Branch Coronary Coronary Disease Active Unive rs artery artery 6 ity of disease disease 00:00: [place] involving involving 00 Medi rafael [place] Branch coronary coronary artery of artery of [place] heart with heart with angina angina pectoris pectoris Dyslipidem Dyslipidem Disease Active U nivers ia ia 6 ity of 00:00: [place] 00 Medical Branch 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 6 ity of hypertensi hypertensi [place] Chronic Chronic Disease Active Univers heart heart 6 ity of failure failure 00:00: [place] with with 00 Medical preserved preserved Bran ch ejection ejection fraction fraction PAF PAF Disease Active Univers (paroxysma (paroxysma 03-08 it y of l atrial l atrial 00:00: [place] fibrillati fibrillati 00 Me dical on) on) Branch Type 2 Type 2 Disease Active Univers diabetes diabetes 03-08 ity of mellitus mellitus 00:00: [place] with other with other 00 Me dical specified specified Bran ch complicati complicati on on Elevated Elevated Disease Active Unive rs troponin I troponin I 607 it y of level level 00:00: [place] Medical Branch Angina of Angina of Disease Active Uni vers effort effort 5-19 ity of 00:00: [place] 00 Medical Branch [id number] 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..] History SDOH Social Unive rsity of Connections [facility] Med ical Together Branch History SDOH Social Unive rsity of Connections [facility] [place] [facility] History SDOH Social Unive rsity of Connections [place] [facility] Membership Branch History SDOH Social Unive rsity of Connections [place] Medical Meetings Branch Tobacco use and 2023-03-08 2023-03-08 Smokeless Universit y of exposure 00:00:00 00:00:00 tobacco non-user [facility] dical Branch Alcohol intake 2023-03-08 2023-03-08 3 /d University of 00:00:00 00:00:00 [place] [facility] History SDOH 2023-03-08 2023-03-08 1 University o f Alcohol Frequency 00:00:00 00:00:00 [place] M edical Branch History SDOH Social 2023-03-08 2023-03-08 5 Unive rsity of Connections Phone 00:00:00 00:00:00 [place] M edical Branch History SDOH Social 2023-03-08 2023-03-08 3 Unive rsity of Connections Living 00:00:00 00:00:00 [place] [facility] History SDOH 2023-03-08 2023-03-08 5 [...] University o f Transport Non-Med 00:00:00 00:00:00 [place] M edical Branch History SDOH 2023-03-08 2023-03-08 2 University o f Housing Unable to 00:00:00 00:00:00 [place] M edical Pay Branch History SDOH 2023-03-08 2023-03-08 1 University o f Housing Places 00:00:00 00:00:00 [facility] rafael Lived Branch History SDOH 2023-03-08 2023-03-08 2 University o f Housing Homeless 00:00:00 00:00:00 [facility] dical Last Year Branch Tobacco Comment 2023-03-08 2023-03-08 quit smoking 20 Univ ersity of 00:00:00 00:00:00 yrs ago [facility] Sex Ass[birth year] At [birth year] Universit y of 00:00:00 00:00:00 [facility] Smoking Status Start Date Stop Date Source Ex-smoker 2023-03-08 00:00:00 2023-03-08 00:00:00 Universi ty of [facility] Medications Ordered Filled Start Stop Current Ordering Indication Dosage Frequency Signature Comments Components Source Medication Medication Date Date Medication? Clinician (SIG) Name Name insulin Yes [id number] 15U inject 15 U nivers glargine 6-09 Units ity of 100 unit/mL 00:00: [place] injection 00 skin in [facility] morning. insulin Yes [id number] 15U inject 15 U nivers glargine 6-09 Units ity of 100 unit/mL 00:00: [place] injection 00 skin in [facility] morning. amLODIPine 2022- Yes [id number] 10mg Take 1 Univers 10 mg 03-1010 tablet by ity of tablet 00:00: 04:59 mouth in [place] 00 :00 the [facility] Branch for 30 days. metoprolol 2022- Yes [id number] 50mg Take 1 Univers succinate 03-1010 tablet by ity of XL 50 mg 24 00:00: 04:59 [place] hr tablet 00 :00 the [facility] Branch for 30 days. amLODIPine 2022- Yes [id number] 10mg Take 1 Univers 10 mg 03-10-10 tablet by ity of tablet 00:00: 04:59 mouth in [place] 00 :00 the Medical morning Branch for 30 days. metoprolol 2022- Yes [id number] 50mg Take 1 Univers succinate 03-10-10 tablet by ity of XL 50 mg 24 00:00: 04:59 mouth in [place] hr tablet 00 :00 the Medical morning Branch for 30 days. glimepiride 0 Yes 4mg Take 4 mg [...] Medical OIL) 1,000 Branch mg capsule rosuvastati 2022- No 10mg Take 10 mg Univers n (CRESTOR) 03-09-08 by mouth ity of 10 mg 15:36: 00:00 at [place] tablet 42 :00 bedtime. Medical Branch metoprolol 0 2022- No 50mg Take 50 mg Univers succinate 03-09-08 by mouth ity o f XL (TOPROL 15:36: 00:00 daily. [place] XL) 50 mg 42 :00 Medical 24 hr Branch tablet hydrochloro 2022- No 25mg Take 25 mg Univers thiazide 03-09 by mouth ity of (ESIDRIX) 15:36: 00:00 daily. [place] 25 mg 42 :00 Medical tablet Branch canaglifloz 2022- No Take by Un tono in 03-09 mouth. ity of (INVOKANA) 15:36: 00:00 [place] 300 mg 42 :00 Medical tablet Branch metFORMIN 2022- No 1000mg Take 1,000 Univers (GLUCOPHAGE 03-09 mg by ity of ) 1,000 mg 15:36: 00:00 mouth 2 [place] tablet 42 :00 (two) Medical times Branch daily with meals. Amlodipine- 2022- No Take by Un tono Olmesartan 03-09 mouth. ity of (SKYLAR) 15:36: 00:00 [place] 10-40 mg 42 :00 Medical per tablet Branch INSULIN 2022- No inject Univers DETEMIR 03-09 under the ity of (LEVEMIR 15:36: 00:00 skin. [place] FLEXTOUCH 42 :00 Medical SC) Branch aspirin 81 2022- No 81mg Take 81 mg Univers mg EC 03-09 by mouth ity of tablet 15:36: 00:00 daily. [place] 42 :00 Medical Branch rosuvastati Yes 10mg 10 mg, Univ ers n (CRESTOR) 03-09 Oral, QHS, it y of tablet 10 02:00: [place] mg 00 on Mon03/08/23 at Branch 2100, Until Discontinu ed, Routine aspirin 81 2022- Yes [id number] 81mg Take 1 Univers mg EC 03-09 tablet by ity of tablet 00:00: 04:59 mouth in [place] 00 :00 the Medical morning Branch for 30 days. hydroCHLORO 2022- Yes [id number] 25mg Take 1 Univers thiazide 25 03-09 tablet by it y of mg tablet 00:00: 04:59 mouth in [place] 00 :00 the Medical morning Branch for 30 days. metFORMIN 2022- Yes [id number] 1000mg Take 1 Univers 1,000 mg 03-09 tablet by ity o f tablet 00:00: 04:59 mouth in [place] 00 :00 the Medical morning Branch and 1 tablet in the evening. Take with meals. Do all this for 30 days. rosuvastati 2022- Yes [id number] 10mg Take 1 Univers n 10 mg 03-09 tablet by ity of tablet 00:00: 04:59 mouth at [place] 00 :00 bedtime Medical for 30 Branch days. aspirin 81 2022- Yes [id number] 81mg Take 1 Univers mg EC 03-09 tablet by ity of tablet 00:00: 04:59 mouth in [place] 00 :00 the Medical morning Branch for 30 days. hydroCHLORO 2022- Yes [id number] 25mg Take 1 Univers thiazide 25 03-09 tablet by it y of mg tablet 00:00: 04:59 mouth in [place] 00 :00 the Medical morning Branch for 30 days. metFORMIN 2022- Yes [id number] 1000mg Take 1 Univers 1,000 mg 03-09 tablet by ity o f tablet 00:00: 04:59 mouth in [place] 00 :00 the Medical morning Branch and 1 tablet in the evening. Take with meals. Do all this for 30 days. rosuvastati 2022- Yes [id number] 10mg Take 1 Univers n 10 mg 03-09 tablet by ity of tablet 00:00: 04:59 mouth at [place] 00 :00 bedtime Medical for 30 Branch days. sulfur 2022- No [id number] 5mL 5 mL, Unive rs hexafluorid 03-08 Intravenou i ty of e microsphr 15:45: 15:45 s, ONCE, 1 [place] (LUMASON) 00 :00 dose, On Medica l injection 5 Mon03/08/23 Br anch mL at 1045, Routine
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 member approving Restricted medication : RONALD AVILA Saline Yes [id number] 6mL 6 mL, Univer s Bubble 03-08 Injection, ity of Study 15:41: SEE-INSTRU [place] 23 CTIONS, Medical Starting Branch on Mon03/08/23 at 1041, Until Discontinu ed, Routine insulin 2022-0 Yes 15U 15 Units, Unive rs glargine 03-08 Subcutaneo ity o f (LANTUS 14:15: us, DAILY, [place] U-100) 00 First dose Medical injection on Mon Branch 15 Units 03/08/23 at 0915, Until Discontinu ed, Routine amLODIPine 2022-0 Yes 10mg 10 mg, Unive rs (NORVASC) 03-08 Oral, ity of tablet 10 14:15: DAILY, [place] mg 00 First dose Medical on Mon Branch 03/08/23 at 0915, Until Discontinu ed, Routine metoprolol 0 Yes 50mg 50 mg, Unive rs succinate 03-08 Oral, ity of XL (TOPROL 14:15: DAILY, [place] XL) tablet 00 First dose Med ical 50 mg on Mon Branch 03/08/23 at 0915, Until Discontinu ed, Routine hydroCHLORO 0 Yes 25mg 25 mg, Univ ers thiazide 03-08 Oral, ity of (ESIDRIX) 14:15: DAILY, [place] tablet 25 00 First dose Medi rafael mg on Mon Branch 03/08/23 at 0915, Until Discontinu ed, Routine aspirin EC 0 Yes 81mg 81 mg, Unive rs tablet 81 03-08 Oral, ity of mg 14:15: DAILY, [place] 00 First dose Medical on Mon Branch 03/08/23 at 0915, Until Discontinu ed, Routine ALPRAZolam 0 Yes 1mg 1 mg, Univer s (XANAX) 03-08 Oral, ity of tablet 1 mg 14:04: TIDPRN, [place] 36 Starting Medical on Mon Branch 03/08/23 at 0904, Until Discontinu ed, Routine, Anxiety Sliding 2022-0 Yes Subcutaneo Univ ers Scale 03-08 us, TID ity of Insulin - 13:00: MEALS+HS, [place] Lispro 00 First dose Medical (HumaLOG) on Mon Branch 03/08/23 at 0800, Until Discontinu ed, Routine heparin 2022-0 Yes 5000U 5,000 Univers (porcine) 03-08 Units, ity of injection 11:00: Subcutaneo [place] 5,000 Units 00 us, Q8H, Medi rafael First dose Branch on Mon03/08/23 at 0600, Until Discontinu ed, Routine hydralAZINE 0 Yes 10mg 10 mg, Univ ers (APRESOLINE [...] swallow or has mental changes. dextrose 50 0 Yes 25mL 25 mL, Univ ers % in water 03-08 Slow IV ity of (D50W) 09:36: Push, PRN, [place] injection 45 Starting Medica l 25 mL on Mon Branch 03/08/23 at 0436, Until Discontinu ed, RENETTA, Blood Glucose < or = 70 mg/dL and patient is NPO, unable to swallow or has mental status changes. ondansetron Yes 4mg 4 mg, Slow Univers (ZOFRAN 03-08 IV Push, ity of (PF)) 09:36: Q6HPRN, [place] injection 4 24 Starting Medi rafael mg on Mon Branch 03/08/23 at 0436, Until Discontinu ed, Routine, Nausea and Vomiting (N/V) HYDROcodone 2022-0 202- Yes 1{tbl} 1 tablet, Univers -acetaminop 03-08 06-09 Oral, ity of hen (NORCO 09:36: 09:35 Q6HPRN, [place] 5) 5-325 mg 16 :16 Starting Medi rafael tablet 1 on Mon Branch tablet 03/08/23 at 0436, Until Mon03/10/23 at 0435, Routine, Pain (scale 4-6) acetaminoph 2022-0 Yes 650mg 650 mg, Un tono en 03-08 Oral, ity of (TYLENOL) 09:36: Q6HPRN, [place] tablet 650 10 Starting Medic al mg on Wed Branch 03/08/23 at 0436, Until Discontinu ed, Routine, Pain (scale 1-3), Temp > 38 C ondansetron 2022- No 4mg 4 mg, Slow Univers (ZOFRAN 03-08- IV Push, ity of (PF)) 05:45: 05:40 [...] blood 2023-03-10 00:08:00 163 mm[Hg] Univer sity [facility] Diastolic blood 2023-03-10 00:08:00 90 [facility]Hg[facility] 2023-03-10 00:08:00 70 /min [facility] Body temperature 2023-03-10 00:08:00 35.17 Teresa [facility] Respiratory rate 2023-03-10 00:08:00 16 /min [facility] Oxygen saturation in 2023-03-10 00:08:00 90 /min [facility] blood by [facility] Pulse oximetry [place] Body weight 2023-03-09 08:37:00 102.967 kg [facility] BMI 2023-03-09 08:37:00 30.79 kg/m2 [facility] Body height 2023-03-08 09:35:00 182.9 cm [facility] height 2020-12-03 11:15:00 70 [in_i] Common [facility] weight 2020-12-03 11:15:00 197 [lb_av] [facility] temperature 2020-12-03 11:15:00 97.6 [degF] Common [facility] bmi 2020-12-03 11:15:00 28.26 kg/m2 [facility] oximetry 2020-12-03 11:15:00 97 % Common [facility] blood pressure 2020-12-03 11:15:00 139 mm[Hg] Common [facility] - systolic [facility] blood pressure 2020-12-03 11:15:00 64 mm[Hg] [facility] - diastolic [facility] height 2020-08-24 14:00:00 70 [in_i] [facility] weight 2020-08-24 14:00:00 199.6 [lb_av] [facility] temperature 2020-08-24 14:00:00 98.4 [degF] [facility] bmi 2020-08-24 14:00:00 28.64 kg/m2 [facility] oximetry 2020-08-24 14:00:00 96 % [facility] blood pressure 2020-08-24 14:00:00 197 mm[Hg] [facility] - systolic [facility] blood pressure 2020-08-24 14:00:00 86 mm[Hg] Common [facility] diastolic [facility] Procedures Procedure Date / Time Performing Clinician Source Performed POCT GLUCOSE (AUTOMATED) 2023-03-09 21:33:00 Starla Tafoya [facility] POCT GLUCOSE (AUTOMATED) 2023-03-09 16:39:00 Starla Tafoya [facility] POCT GLUCOSE (AUTOMATED) 2023-03-09 12:45:00 Starla Tafoya [facility] PHOSPHORUS 2023-03-09 09:02:00 Kel Yin [facility] MAGNESIUM 2023-03-09 09:02:00 [facility] 2023-03-09 09:02:00 Marito [facility] HEPATIC FUNCTION PANEL 2023-03-09 09:02:00 Kel Yin [facility] ([id number]) (ALB,T.PRO,BILI Medical Branch T,BU/BC,ALT,AST,ALK PHOS) BASIC METABOLIC PANEL 2023-03-09 09:02:00 Starla Tafoya [facility] (NA, K, CL, CO2, Medical Branch GLUCOSE, BUN, CREATININE, CA) CBC WITH DIFF 2023-03-09 09:02:00 aJgdish Martin [facility] N-TERMINAL PRO-BNP 2023-03-09 09:02:00 Kel Yin [facility] POCT GLUCOSE (AUTOMATED) 2023-03-09 02:08:00 Starla Tafoya [facility] TROPONIN I 2023-03-08 22:51:00 Michelet [facility] GLYCOSYLATED HEMOGLOBIN 2023-03-08 22:51:00 Jagdish Martin [facility] (A1C) [facility] POCT GLUCOSE (AUTOMATED) 2023-03-08 21:22:00 Starla Tafoya [facility] POCT GLUCOSE (AUTOMATED) 2023-03-08 16:16:00 Starla Tafoya [facility] TRANSTHORACIC ECHO (TTE) 2023-03-08 14:29:00 Starla Tafoya [facility] COMPLETE W/ CONTRAST Medical [facility] POCT GLUCOSE (AUTOMATED) 2023-03-08 12:39:00 Starla Tafoya [facility] PHOSPHORUS 2023-03-08 11:24:00 Michelet [facility] TROPONIN I 2023-03-08 11:24:00 Michelet [facility] N-TERMINAL PRO-BNP 2023-03-08 11:24:00 Candi Patel [facility] XR CHEST 1 VW 2023-03-08 06:27:00 Temi Holloway [facility] HB ECG ROUTINE & RHYTHM 2023-03-08 05:39:37 Temi Holloway [facility] LIPASE 2023-03-08 05:39:00 Temi Holloway [facility] TROPONIN I 2023-03-08 05:39:00 Temi Holloway [facility] THYROID STIMULATING 2023-03-08 05:39:00 Starla Tafoya [facility] HORMONE [facility] Branch COMP. METABOLIC PANEL 2023-03-08 05:39:00 Temi Holloway [facility] ([id number]) Medical [place] LIPID PANEL 2023-03-08 05:39:00 Starla Tafoya [facility] ([id number])(TOTAL Medical Branch CHOLESTEROL, TRIGLYCERIDES, HDL) CBC WITH DIFF 2023-03-08 05:39:00 Temi Holloway [facility] GLYCOSYLATED HEMOGLOBIN 2023-03-08 05:39:00 [facility] (A1C) Medical [place] Encounters Start End Encounter Admission Attending Care Care Encounter Source Date/Time Date/Time Type Type Clinicians Facility Department ID 2021-10-27 [facility] [id number] Common 12:15:25 Kapil [id number] [facility] 2021-10-27 Outpatient [facility] [id number] Common 12:07:45 [id number] [facility] 2023-03-10 2023-03-10 Transition CHRISTOPHER Alcocer [id number] Univers 00:00:00 00:00:00 of Care Jose WHITE 350.1.13.10 ity of MIHIR 4.2.7.2.686 [facility] [id number] [facility] 403 Branch 2023-03-08 2023-03-09 Emergency Romel Montez [facility] [id number] Univers 00:29:00 19:46:00 Starla Tafoya 350.1.13.10 ity of Kel Yin 4.2.7.2.686 [facility] [id number] [facility] 081 Branch 2023-03-08 2023-03-09 Outpatient Inocente YIN NMROBERTO [facility] [id number] Univers 00:29:00 19:46:00 KEL [facility] 2022-05-31 2022-05-31 Outpatient SPEEDY Dial [facility] [id number] [facility] 08:52:00 08:52:00 Brissa Reyes [facility] 2022-05-11 2022-05-11 Outpatient SPEEDY Rae [facility] [id number] [facility] 10:11:00 10:11:00 Chad 67 [facility] 2022-05-11 2022-05-11 Outpatient SPEEDY RaeCL [id number] [facility] 10:11:00 10:11:00 Chad [id number] [facility] 2020-12-03 2020-12-03 OFFICE STLMLC STLMLC [id number] Co mmon 00:00:00 00:00:00 VISIT Spirit ESTAB PT - [facility]I LEVEL 2 [facility] 2020-08-24 2020-08-24 OFFICE STLMLC STLMLC [id number] Co mmon 00:00:00 00:00:00 VISIT NEW Spir it PT LEVEL 4 - [facility] Results Test Description Test Time Test Comments Results Result Comments Source POCT GLUCOSE (AUTOMATED) 2023-03-09 21:35:08 Test Item Value Reference Range Interpretation Comme nts POCT GLU (test code = 3664459317) 149 mg/dL 70-110 H Lab Interpretation (test code = 88654-0) Abnormal [facility] GLUCOSE (AUTOMATED)2023-03-09 16:43:52 Test Item Value Reference Range Interpretation Comments POCT GLU (test code = 3269346087) 138 mg/dL 70-110 H Lab Interpretation (test code = Abnormal 23169-0) [facility] GLUCOSE (AUTOMATED)2023-03-09 12:55:44 Test Item Value Reference Range Interpretation Comments POCT GLU (test code = 3673313143) 126 mg/dL 70-110 H Lab Interpretation (test code = Abnormal 01298-6) [facility] GLUCOSE (AUTOMATED)2023-03-09 02:09:42 Test Item Value Reference Range Interpretation Comments POCT GLU (test code = 2425376131) 115 mg/dL 70-110 H Lab Interpretation (test code = Abnormal 64930-7) [facility] GLUCOSE (AUTOMATED)2023-03-08 21:32:42 Test Item Value Reference Range Interpretation Comments POCT GLU (test code = 4980524377) 266 mg/dL 70-110 H Lab Interpretation (test code = Abnormal 54614-0) [facility] GLUCOSE (AUTOMATED)2023-03-08 16:26:44 Test Item Value Reference Range Interpretation Comments POCT GLU (test code = 9772616555) 195 mg/dL 70-110 H Lab Interpretation (test code = Abnormal 34853-1) [facility] GLUCOSE (AUTOMATED)2023-03-08 12:40:58 Test Item Value Reference Range Interpretation Comments POCT GLU (test code = 6717798511) 179 mg/dL 70-110 H Lab Interpretation (test code = Abnormal 43266-5) [facility] Stimulating Hormone (TSH)2023-03-08 11:56:52 Test Item Value Reference Range Interpretation Comments TSH (test code = 5.09 See_Comment H Biotin has been [id number]) reported to cau se a negative bias, interpret resul ts relative to pat randal's use of biotin. [Automated mess age] The system WeShow generated this result transmitted ref erence range: 0.45 - 4 .70 mIU/L. The refe rence range was not u sed to interpret this result as normal/abnor mal. Lab Interpretation (test Abnormal code = 03524-5) [facility]cosylated Hemoglobin (A1C)2023-03-08 11:27:39 Test Item Value Reference Range Interpretation Comments HGB A1C (test code = 9.3 % 4.0-5.7 H 4548-4) TRINIDAD (test code = TRINIDAD) Reference RangesNormal: <5.7%Prediabetes: 5.7 - 6.4%Diabetes: > 6.5% Lab Interpretation (test Abnormal code = 36510-1) [facility] (Total Cholesterol, Triglycerides, HDL)2023-03-08 11:14:15 Test Item Value Reference Range Interpretation Comments CHOL (test code = 6105633018) 166 mg/dL 120-200 HDL (test code = 7069841755) 51 mg/dL >=40 HDLC RATIO (test code = 6805762948) 3.3 <=5.0 TRIG (test code = 1528873209) 83 mg/dL 30-170 LDL CHOL (test code = 15869-9) 98 mg/dL <=160 VLDL (test code = 3538117004) 17 mg/dL 5-60 Lab Interpretation (test code = Normal 20719-9) [facility] [id number] 06:21:21 Test Item Value Reference Range Interpretation Comments TROPONIN I (test code = 0.075 ng/mL <=0.034 H 4980521484) TRINIDAD (test code = TRINIDAD) Reference (Normal) [...] biotin. Lab Interpretation Abnormal (test code = 60209-4) [facility]ney[facility]. METABOLIC PANEL (36934)2023-03-08 06:10:20 Test Item Value Reference Range Interpretation Comments NA (test code = 135 mmol/L 135-145 9757352424) K (test code = 4.3 mmol/L 3.5-5.0 6885491266) CL (test code = 104 mmol/L 98-108 0655884337) CO2 TOTAL (test code = 26 mmol/L 23-31 6470206313) AGAP (test code = 5 2-16 1109611860) BUN (test code = 27 mg/dL 7-23 H 5313160798) GLUCOSE (test code = 243 mg/dL 70-110 H 2270047726) CREATININE (test code = 2.15 mg/dL 0.60-1.25 H 5597613225) TOTAL BILI (test code = 0.8 mg/dL 0.1-1.9 4438652595) CALCIUM (test code = 8.2 mg/dL 8.6-10.6 L 1249425182) T PROTEIN (test code = 6.0 g/dL 6.3-8.2 L 6887238707) ALBUMIN (test code = 2.5 g/dL 3.5-5.0 L 2785161399) ALK PHOS (test code = 60 U/L 34-122 8124484317) ALTv (test code = 17 U/L 5-50 1742-6) AST(SGOT) (test code = 26 U/L 13-40 4534066996) eGFR (test code = 30.1 mL/min/1.73m2 4975996214) TRINIDAD (test code = TRINIDAD) Association of [...] tests). Lab Interpretation Abnormal (test code = 55418-8) [facility]neyLIP[facility], [id number] 06:09:44 Test Item Value Reference Range Interpretation Comments LIPASE (test code = 4178390833) 101 U/L 0-220 Lab Interpretation (test code = Normal 79836-3) [facility] WITH [id number] 05:51:59 Test Item Value Reference Range Interpretation Comments WBC (test code = 5.65 See_Comment [Automated 6690-2) message] The sy stem which generated this [...] (test code = 56.7 fL 38.5-51.6 H 89014-3) RDW-CV (test code = 19.4 % 12.1-15.4 H 788-0) PLT (test code = 232 See_Comment [Automated 777-3) message] The sy stem which generated this result transmitted reference range : 150 - 328 10*3/ ?L. The reference r michael was not used to interpret this result as normal/abnormal . MPV (test code = 10.5 fL 9.8-13.0 23333-2) NRBC/100 WBC (test 0.0 See_Comment [Automat ed code = [id number]) message] The system which generated this result transmitted reference range : 0.0 - 10.0 /100 WBCs. The refer ence range was not u sed to interpret th is result as normal/abnormal . NRBC x10^3 (test code See_Comment [Auto mated = [id number]) message] The s ystem which generated this result transmitted reference range : 10*3/?L. The reference range was not used to interpret this result as normal/abnormal . GRAN MAT (NEUT) % 68.1 % (test code = 770-8) IMM GRAN % (test code 0.20 % = 2538417090) LYMPH % (test code = 20.0 % 736-9) MONO % (test code = 9.2 % 5905-5) EOS % (test code = 1.6 % 713-8) BASO % (test code = 0.9 % 706-2) GRAN MAT x10^3(ANC) 3.85 10*3/uL 1.99-6.95 (test code = 4131221137) IMM GRAN x10^3 (test 0.00-0.06 code = 0987193391) LYMPH x10^3 (test code 1.13 10*3/uL 1.09-3.23 = 731-0) MONO x10^3 (test code 0.52 10*3/uL 0.36-1.02 = 742-7) EOS x10^3 (test code = 0.09 10*3/uL 0.06-0.53 711-2) BASO x10^3 (test code 0.05 10*3/uL 0.01-0.09 = 704-7) Lab Interpretation Abnormal (test code = 80251-1) [facility] [id number] 10:17:00 Test Item Value Reference Range Interpretation [...] y tests. - CTA HEART W CN ART/[id number] 00:00:00 [facility] DAGMAR GONSALESName: ALBERT MARQUEZ : 1950 Sex: M Name: ALBERT MARQUEZ [facility] Dagmar Gonsales : 1950 Age/S: 72 / M [address] [place] [address] Blvd Unit #: [id number] Loc: [place] [address] Phys: Brissa Reinoso [employer] Acct: [id number] Dis Date: Status: REG CLI PHONE #: [phone] Exam Date: 05/31/2022 1012 FAX #: [phone] Reason: EXAMS: CPT CODE: [id number] HEART W CN ART/GRAFTS 72138 PROCEDURE INFORMATION: Exam: CTA Heart And Coronary [...] percent phase of the R-R interval. Aortic eerlbju12.6 x 21 mm, area of 4.18 cm2 [...] 1 Signed Report (CONTINUED) Name: ALBERT MARQUEZ [facility] : 1950 Age/S: 72 / M [address] [place] [address] Blvd Unit #: [id number] Loc: Dennis [id number] Phys: Brissa Reinoso [facility] Acct: [id number] Dis Date: Status: REG CLI PHONE #: [phone] Exam Date: 05/31/2022 1012 FAX #: [phone] Reason: EXAMS: CPT CODE: [id number] CTA HEART W CN ART/GRAFTS 38497 (Continued) mitral annular calcification. PERICARDIUM: No evidence [...] 2 Signed Report (CONTINUED) Name: ALBERT MARQUEZ [facility] : 1950 Age/S: 72 / M[address] [facility] [address] Unit #: [id number] Loc: [place] [address] Phys: Brissa Reinoso [employer] Acct: [id number] Dis Date: Status: REG CLI PHONE #: [phone] Exam Date: 05/31/2022 1012 FAX #: [phone] Reason: EXAMS: CPT CODE: [id number] CTA HEART W CN ART/GRAFTS 66865 (Continued) Small uncomplicated fat containing umbilical hernia. [...] and signed by: Wood Duran M.D. CC: Brissa Reinoso Technologist:Berry Hearn, RT(R)(CT) CTDI: DLP: Trnscb Date/Time: 05/31/2022 (1722) [email or web address] O rig Print D/T: S: 05/31/2022 (1722) PAGE 3 Signed Report- CTA ABD PEL W CONT 2022-05-31 00:00:00 [facility] : 1950 Sex: M Name: ALBERT MARQUEZ [facility] : 1950 Age/S: 72 / M [address] [place] [address] Unit #: [id number] Loc: [place] [address] Phys: Brissa Reinoso Acct: [id number] Dis Date: Status: REG CLI PHONE #: [phone] Exam Date: 05/31/2022 1012 FAX #: [phone] Reason: 135.0, SEVERE AORTIC STENOSIS. EXAMS: CPT CODE: [id number] CTA ABD PEL W CONT 96157 PROCEDURE INFORMATION: Exam: CTA Heart And Coronary [...] at 30 percent phase of the R-R int erval. Aortic annulus 26.6 x 21 mm, area [...] 1 Signed Report (CONTINUED) Name: ALBERT MARQUEZ [facility] : 1950 Age/S: 72 / M [address] [place] [address] Blvd Unit #: [id number] Loc: MARCEL [place] [address] Phys: Brissa Reinoso [facility] Acct: [id number] Dis Date: Status: REG CLI PHONE #: [phone] Exam Date: 05/31/2022 1012 FAX #: [phone] Reason: 135.0, SEVERE AORTIC STENOSIS. EXAMS: CPT CODE: [id number] CTA ABD PEL W CONT 65338 (Continued) mitral annular calcification. PERICARDIUM: No evidence [...] lytic or blastic lesions. IMPRESSION: Severe calcification ofthe aortic valve compatible with aortic stenosis. The [...] is 1 right and 1 left renal arteries.MINIMAL LUMINAL DIAMETERS OF ABDOMINAL AORTA AND BRANCHES: The minimal luminal diameter of the aortais 18 x 17 mm in the infrarenal [...] small bowel and colon are unremarkable. The appendixis normal. There is no intra-abdominal or retroperitoneal adenopathy. Mild wall thickening of the underdistended bladder. Prostate gland and seminal vesicles within normal limits. BONES AND SOFT TISSUES: There are no bony lytic or blastic lesions. PAGE 2 Signed Report (CONTINUED) Name: ALBERT MARQUEZ [facility] Dagmar Gonsales : 1950 Age/S: 72 / M [address] [place] [address] Unit #: [id number] Loc: MARCEL [place] [address] Phys: Brissa Reinoso Acct: [id number] Dis Date: Status: REG CLI PHONE #: [phone] Exam Date: 05/31/2022 1012 FAX #: [phone] Reason: 135.0, SEVERE AORTIC STENOSIS. EXAMS: CPT CODE: [id number] CTA ABD PEL W CONT 72054 (Continued) Small uncomplicated fat containing umbilical hernia. [...] and signed by: Wood Duran M.D. CC: Brissa Reinoso Technologist:Berry Hearn,RT(R)(CT) CTDI: DLP: Trnscb Date/Time: 05/31/2022 (1723) Whitney.[email or web address] Orig Print D/T: S: 05/31/2022 (1724) PAGE 3 Signed Report- CT ANGIO [id number] 00:00:00[facility] DAGMAR GONSALESName: ALBERT MARQUEZ : 1950 Sex: M Name: LABERT MARQUEZ [facility] [place] : 1950 Age/S: 72 / M [address] [place] [address] Blvd Unit #: [id number] Loc: MARCEL [place] [address] Phys: Brissa Reinoso [employer] Acct: [id number] Dis Date: Status: REG CLI PHONE #: [phone] Exam Date: 05/31/2022 1012 FAX #: [phone] Reason: 135.0 , SEVERE AORTIC STENOSIS. EXAMS: CPT CODE: [id number] CT ANGIO CHEST 03990 PROCEDURE INFORMATION: Exam: CTA Heart And Coronary [...] the technologist. Radiation optimization: [facility] [...] at 30 percent phase of the R-R interv al. Aortic annulus 26.6 x 21 mm, area [...] Mild PAGE 1 Signed Report (CONTINUED) Name:ALBERT MARQUEZ [facility] : 1950 Age/S: 72 / M [address] [place] [address] Blvd Unit #: [id number] Loc: [place] [address] Phys: Brissa Reinoso [employer] Acct: [id number] Dis Date: Status: REG CLI PHONE #: [phone] Exam Date: 05/31/2022 1012 FAX #: [phone] Reason: 135.0 , SEVERE AORTIC STENOSIS. EXAMS: CPT CODE: [id number] CT ANGIO CHEST 74467 (Continued) mitral annular calcification. PERICARDIUM: No evidence [...] score of the aortic valve is 1658. Aort ic annulus 26.6 x 21 mm, area of [...] 2 Signed Report (CONTINUED) Name: ALBERT MARQUEZ [facility] : 1950 Age/S: 72 / M [address] [place] [address] Blvd Unit #: [id number] Loc: [place] [address] Phys: Brissa Reinoso Acct: [id number] Dis Date: Status: REG CLI PHONE #: [phone] Exam Date: 05/31/2022 1012 FAX #: [phone] Reason: 135.0 , SEVERE AORTIC STENOSIS. EXAMS: CPT CODE:[id number] CT ANGIO CHEST 20216 (Continued) Small uncomplicated fat containing umbilical hernia. IMPR ESSION: Mild atherosclerosis of the abdominal aorta which [...] and signed by: Wood Duran M.D. 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 CBC W/AUTO [id number] 16:09:00 Test Item Value Reference Range Interpretation [...] Notes Date/Time Note Provider Source 2022-06-02 08:57:00-00:00 [id number] [place] [address] patient name: albert marquez admit date: 05/31/22 account no: [id number] room no: age: 72 report type: pulmonary function report sex: m admitting physician: attending physician:brissa reinoso study date: full pulmonary function test interpretation spirometry: fvc is 41% of predicted. fev1 is 33% of predicted, no response to bronchodilator. ratio is 59. total lung capacity 77%. rv is 129%. diffusion c apacity is 19%. full pulmonary function test: severe copd, gold stage iii. dictated by: dorothy baer md wt: pft:jacques/carol/nts dd: 06/02/2022 08:57:29 dt: 06/02/2022 09:52:31 conf#: [id number]/did#: [id number] authenticated by dorothy baer md on 06/06/2022 08:17:48 am electronically signed by dorothy baer md on 02/20 at 0817 patient name: albert marquez 147 2022-05-11 15:06:00-00:00 [facility] ([facility]) clinical note report#:[id number] report status: signed date:05/11/22 time: 1506 patient: albert marquez unit #: [id number] room/bed: : 48 age: 72 sex: m attend: jerod valadez md adm dt: 05/11/22 author: ian coates p * all edits or amendments must be made on the [employer] document * clinical note note: 72-year-old -[place] male with past [facility] history of hypertension, hyperlipidemia, diabetes (on insulin), [...] not want to wait. electronically signed by ian coates on 05/12/22 at 1522 electronically signed by juan miguel molina md on 05/24/22 at 0953 rpt #:[id number] end of report 2022-05-11 15:[facility] REPORT#:[id number] REPORT STATUS: Signed DATE:05/11/22 TIME: 1506 PATIENT: ALBERT MARQUEZ UNIT #: [id number] ROOM/BED: : 48 AGE: 72 SEX: M ATTEND: Jerod Valadez MD ADM AUTHOR: Ian Coates P * ALL edits or amendments must be made on the [employer] document * Clinical Note Note: 72-year-old -[place] male with past [facility] history of hypertension, hyperlipidemia, diabetes (on insulin), [...] not want to wait. at 1522 RPT #:[id number] END OF REPORT"
--- NOTE | 2023-04-22 12:41 | RAD REPORT ---
EXAM DESCRIPTION: CT - Head Brain Wo Cont - 04/22/2023 12:29 pm CLINICAL HISTORY: Syncope COMPARISON: None TECHNIQUE: Computed axial tomography of the head was obtained. IV contrast was not requested. All CT scans are performed using dose optimization technique as appropriate and may include automated exposure control or mA/KV adjustment according to patient size. FINDINGS: An intracranial bleed is not seen Mild to moderate prominence of ventricles probably secondary to cerebral atrophy No extra-axial fluid collection is noted. Moderate low-density areas within periventricular, deep and subcortical white matter likely represent ischemic changes secondary to small vessel disease. Fluid within the sinuses/ mastoids is not seen. IMPRESSION: No acute intracranial abnormality is seen If patient's symptoms persist MRI of the brain would be recommended
--- NOTE | 2023-04-22 13:23 | RAD REPORT ---
EXAM DESCRIPTION: USExtrem Venous W Compress Bil04/22/2023 12:45 pm CLINICAL HISTORY: Leg swelling COMPARISON: none FINDINGS: The common femoral, superficial femoral, greater saphenous, popliteal and posterior tibial veins bilaterally are compressible and demonstrate augmentation. Doppler demonstrates good flow. Grayscale, color and spectral analysis performed on all vessels IMPRESSION: No evidence of deep venous thrombosis involving either lower extremity.
--- NOTE | 2023-04-22 13:27 | RAD REPORT ---
EXAM DESCRIPTION: Mary Single View04/22/2023 12:47 pm CLINICAL HISTORY: Syncope COMPARISON: March 2023 FINDINGS: Mild bilateral pulmonary opacities. Heart is mildly to moderately enlarged IMPRESSION: These findings may indicate mild CHF
[2023-04-22 14:58] LABS: Lymphocytes % 18.3 % (15.3-44.8)
[2023-04-22 15:17] LABS: Albumin 2.8 g/dL (3.4-5.0); Bilirubin Total 0.5 mg/dL (0.2-1.0); Protein, Total 8.7 g/dL (6.4-8.2)
[2023-04-22 15:20] LABS: Absolute Lymphocytes (CBC) 1.4 K/uL (0.7-4.9); Hematocrit 55.2 % (39.6-49.0); MCV 85.1 fL (80-100); MPV 8.5 fL (7.6-11.3); Potassium 4.6 mEq/L (3.5-5.1); RBC Red Blood Cell Count 6.49 M/uL (4.33-5.43)
[2023-04-22 15:22] LABS: Troponin High Sensitivity 217.3 pg/mL (<58.9)
[2023-04-22] MEDS ORDERED: HYDRALAZINE HCL 20 MG/ML VIAL ONE (16:15)
[2023-04-22] MEDS ORDERED: ASPIRIN 325 MG TAB ONE (16:15)
[2023-04-22 17:33] LABS: Specific Gravity 1.009 (1.005-1.030); Urine Bacteria None Seen /HPF (<20); Urine Bilirubin NEGATIVE (Negative); Urine Blood Negative (Negative); Urine Clarity Clear (Clear); Urine Color Colorless (Yellow); Urine Glucose NEGATIVE (Negative); Urine Protein 3+ (Negative); Urine RBC <5 /HPF (None Seen); Urine Urobilinogen Normal (Normal)
--- NOTE | 2023-04-22 17:38 | ER ---
Nurse's Notes [facility] Name: Julianna Kearns Age: 73 yrs Sex: Male : 1950 Arrival Date: 04/22/2023 Time: 11:21 Bed 14 Private MD: Diagnosis: Syncope;Hypertensive urgency Presentation: 04/22 11:44 Chief complaint: Patient states: EMS toned out to patient home for syncopal episode - ld1 sitting outside in chair. called EMS. Upon arrival to pt home, ems reports patient "coming around and alert.". Coronavirus screen: At this time, the client does not indicate any symptoms associated with coronavirus-19. Ebola Screen: No symptoms or risks identified at this time. Initial Sepsis Screen: Does the patient meet any 2 criteria? No. Patient's initial sepsis screen is negative. Does the patient have a suspected source of infection? No. Patient's initial sepsis screen is negative. Risk Assessment: Do you want to hurt yourself or someone else? Patient reports no desire to harm self or others. Onset of symptoms was April 22, 2023. 11:44 Method Of Arrival: EMS: [facility] ld1 11:44 Acuity: VERONICA 3 ld1 Triage Assessment: 11:52 General: Appears in no apparent distress. comfortable, Behavior is calm, cooperative, ld1 appropriate for age. Pain: Complains of pain in right leg and left leg Pain does not radiate. Pain currently is 8 out of 10 on a pain scale. Quality of pain is described as throbbing. EENT: No signs and/or symptoms were reported regarding the EENT system. Neuro: Level of Consciousness is awake, alert, obeys commands, Oriented to person, place, time, situation, Reports a syncopal episode weakness. Cardiovascular: Capillary refill < 3 seconds Patient's skin is warm and dry. Rhythm is sinus rhythm. Respiratory: Airway is patent Respiratory effort is even, unlabored. GI: Abdomen is flat, non-distended. : No signs and/or symptoms were reported regarding the genitourinary system. Derm: No signs and/or symptoms reported regarding the dermatologic system. Musculoskeletal: No signs and/or symptoms reported regarding the musculoskeletal system. Historical: - Allergies: 11:48 PENICILLINS; ld1 - Home Meds: 11:48 furosemide 40 mg Oral tablet 2 times per day [Active]; isosorbide dinitrate 20 mg Oral ld1 tablet 3 times per day [Active]; metformin 1,000 mg Oral Tablet, ER Gastric Retention 24 hr every evening [Active]; losartan 50 mg oral tablet 2 times per day [Active]; atorvastatin 40 mg oral tablet once [Active]; ferrous sulfate 325 mg (65 mg iron) Oral tablet once [Active]; - PMHx: 11:48 caridac stent; Atrial Fib; Diabetes - NIDDM; Hypercholesterolemia; Hypertension; ld1 - Immunization history:: Adult Immunizations up to date, Client reports receiving the 2nd dose of the Covid vaccine. - Social history:: Smoking status: Patient denies any tobacco usage or history of. Screenin:53 [facility] ED Fall Risk Assessment (Adult) History of falling in the last 3 months, ld1 including since admission No falls in past 3 months (0 pts). Abuse screen: Denies threats or abuse. Denies injuries from another. Nutritional screening: No deficits noted. Tuberculosis screening: No symptoms or risk factors identified. Assessment: 11:53 Reassessment: See triage assessment. Neuro: Level of Consciousness is awake, alert, ld1 obeys commands, Oriented to person, place, time, situation. Cardiovascular: Capillary refill < 3 seconds Patient's skin is warm and dry. Rhythm is sinus rhythm. 14:31 Reassessment: Patient appears in no apparent distress at this time. No changes from ld1 previously documented assessment. Patient and/or family updated on plan of care and expected duration. Pain level reassessed. Patient is alert, oriented x 3, equal unlabored respirations, skin warm/dry/pink. 15:46 Reassessment: Changed pt of soiled linens. Son at bedside. ss 15:48 Reassessment: Notified ERP of VS. See [facility] for orders. ld1 16:12 Reassessment: Patient appears in no apparent distress at this time. No changes from ld1 previously documented assessment. Patient and/or family updated on plan of care and expected duration. Pain level reassessed. Patient is alert, oriented x 3, equal unlabored respirations, skin warm/dry/pink. Patient denies pain at this time. 19:36 Reassessment: attempted to call report - Nursing staff not ready. ld1 Vital Signs: 11:44 BP 175 / 91; Pulse 84; Resp 13; Temp 97.8(O); Pulse Ox 95% ; Weight 90 kg; Height 5 ft. ld1 10 in. ; Pain 0/10; 11:53 BP 176 / 91; Pulse 85; Resp 19; Pulse Ox 94% on R/A; ld1 14:36 BP 192 / 102; Pulse 113; Resp 18; Pulse Ox 94% on R/A; ld1 15:47 BP 202 / 117; Pulse 117; Resp 18; Pulse Ox 91% on R/A; ld1 17:24 BP 116 / 103; Pulse 122; Resp 18; Pulse Ox 94% on R/A; ld1 11:44 Body Mass Index 28.47 (90.00 kg, 177.8 cm) ld1 11:44 Pain Scale: Adult ld1 ED Course: 11:30 Patient arrived in ED. eb 11:40 Krystin Garrett is Attending Physician. sk4 11:44 Margarita Wade, ERICA is Primary Nurse. ld1 11:45 Patient has correct armband on for positive identification. Bed in low position. Call mm9 light in reach. Side rails up X2. Warm blanket given. Client placed on continuous cardiac and pulse oximetry monitoring. NIBP monitoring applied. compliance monitor on. Pulse ox on. NIBP on. 11:45 Initial lab(s) drawn, by me, sent to lab. Maintain EMS IV. Dressing intact. Good blood mm9 return noted. Site clean \\T\\ dry. 11:48 Triage completed. ld1 11:52 Arm band placed on right wrist. ld1 11:53 No provider procedures requiring assistance completed. ld1 12:31 CT Head Brain wo Cont In Process Unspecified. EDMS 12:46 US Extremity Venous W Compression Mac In Process Unspecified. EDMS 12:49 Chest Single View XRAY In Process Unspecified. EDMS 14:44 Lab(s) recollected, by me, sent to lab. zm 17:35 Quentin Farley MD is Hospitalizing Provider. sk4 18:45 UAM Sent. zm 18:45 UDS Sent. zm 18:51 FALL PRECAUTION. zm 20:16 Patient admitted, IV remains in place. ld1 21:02 Provided Education on: need for admission. sg5 Administered Medications: 16:11 Drug: Aspirin PO 325 mg Route: PO; ld1 16:11 Drug: hydrALAZINE IVP 10 mg Route: IVP; Site: left hand; ld1 18:40 Drug: Metoprolol IVP 5 mg Route: IVP; Site: left hand; sg5 Medication: 20:16 VIS not applicable for this client. ld1 Outcome: 17:37 Decision to Hospitalize by Provider. sk4 20:15 Admitted to Med/surg accompanied by tech, room 402, Report called to ERICA English ld1 20:15 Condition: stable 20:15 Instructed on the need for admit. 21:03 Patient left the ED. sg5 Signatures: Dispatcher [employer] EDMS Yaa Johns, RN RN Brandy Marinelli Lauren RN RN ld1 Honorio, Sue Garsia Sajid 4 Deena Malone RN RN sg5
--- NOTE | 2023-04-22 17:38 | EDPHYS ---
Physician Documentation [facility] Name: Julianna Kearns Age: 73 yrs Sex: Male : 1950 Arrival Date: 04/22/2023 Time: 11:21 Bed 14 Private MD: ED Physician Krystin Garrett HPI: 04/22 12:09 This 73 yrs old Black Male presents to ER via EMS with complaints of Syncope. sk4 12:09 PER EMS PT WAS ACTING FINE THIS MORNING PER FAMILY .THEY GAVE HIM HIS BP MED. NOTICED sk4 HE HAD PASSED OUT. BP WAS 80S UPON ARRIVAL. EMS GAVE APPROX 200CC FLUID, BP UP TO AROUND 120 NOW AND PT AWAKE. PT DENIES CHEST PAIN, SOA, MELENDEZ, ABD PAIN, VOMITING, DIARRHEA, DYSURIA. DOES HAVE BILAT LEG SWELLING AND HE SAYS THIS IS WORSE THAN NORMAL, MORE SWOLLEN/PAINFUL. . Historical: - Allergies: 11:48 PENICILLINS; ld1 - Home Meds: 11:48 furosemide 40 mg Oral tablet 2 times per day [Active]; isosorbide dinitrate 20 mg Oral ld1 tablet 3 times per day [Active]; metformin 1,000 mg Oral Tablet, ER Gastric Retention 24 hr every evening [Active]; losartan 50 mg oral tablet 2 times per day [Active]; atorvastatin 40 mg oral tablet once [Active]; ferrous sulfate 325 mg (65 mg iron) Oral tablet once [Active]; - PMHx: 11:48 caridac stent; Atrial Fib; Diabetes - NIDDM; Hypercholesterolemia; Hypertension; ld1 - Immunization history:: Adult Immunizations up to date, Client reports receiving the 2nd dose of the Covid vaccine. - Social history:: Smoking status: Patient denies any tobacco usage or history of. ROS: 12:09 Constitutional: Negative for fever, chills, and weight loss. sk4 Exam: 12:09 Constitutional: This is a well developed, well nourished patient who is awake, alert, sk4 and in no acute distress. Head/Face: Normocephalic, atraumatic. Chest/axilla: Normal chest wall appearance and motion. Nontender with no deformity. No lesions are appreciated. Cardiovascular: Regular rate and rhythm with a normal S1 and S2. No gallops, murmurs, or rubs. Normal PMI, no JVD. No pulse deficits. Respiratory: Lungs have equal breath sounds bilaterally, clear to auscultation and percussion. No rales, rhonchi or wheezes noted. No increased work of breathing, no retractions or nasal flaring. Abdomen/GI: Soft, non-tender, with normal bowel sounds. No distension or tympany. No guarding or rebound. No evidence of tenderness throughout. MS/ Extremity: Pulses equal, no cyanosis. Neurovascular intact. BILAT SWELLING/WARMTH. SOME OPEN WOUNDS. NO DRAINAGE. NO BLISTERS/FLUCTUANCE. Vital Signs: 11:44 BP 175 / 91; Pulse 84; Resp 13; Temp 97.8(O); Pulse Ox 95% ; Weight 90 kg; Height 5 ft. ld1 10 in. ; Pain 0/10; 11:53 BP 176 / 91; Pulse 85; Resp 19; Pulse Ox 94% on R/A; ld1 14:36 BP 192 / 102; Pulse 113; Resp 18; Pulse Ox 94% on R/A; ld1 15:47 BP 202 / 117; Pulse 117; Resp 18; Pulse Ox 91% on R/A; ld1 17:24 BP 116 / 103; Pulse 122; Resp 18; Pulse Ox 94% on R/A; ld1 11:44 Body Mass Index 28.47 (90.00 kg, 177.8 cm) ld1 11:44 Pain Scale: Adult ld1 MDM: 11:40 Patient medically screened. 4 12:09 Data reviewed: vital signs, nurses notes, lab test result(s), EKG, radiologic studies. 4 17:38 Differential Diagnosis: cerebrovascular accident, transient ischemic attack. [facility] Consideration of Admission/Observation Patient was admitted/placed on observation. Management of patient was discussed with the following: Hospitalist: admission. Response to treatment: the patient's symptoms have markedly improved after treatment. ED course: bp went up to 220 systolic. hydralazine 10mg iv given. bp improved to 180 systolic. admitted to hospitalist. no chest pain, soa, melendez, vision change. family adn pt updated: State overall legs are significantly better than normal. pt has no complaints. asa given on bASIS OF elevated cardiac enzyme. . 04/22 11:58 Order name: CBC with Diff; Complete Time: 15: [facility] 04/22 11:58 Order name: CMP; Complete Time: 15:51 04/22 11:58 Order name: Lactate w/ 2H reflex if indic.; Complete Time: 15:22 [facility] 04/22 11:58 Order name: Urinalysis w/ reflexes; Complete Time: 17:38 04/22 11:58 Order name: Troponin High Sensitivity; Complete Time: 15:51 04/22 18:21 Order name: BNP 04/22 18:21 Order name: Magnesium 04/22 18:21 Order name: AMMONIA 04/22 18:21 Order name: UDS; Complete Time: 19:52 md04/22 18:21 Order name: ETOH Level; Complete Time: 19:52 md04/22 18:22 Order name: CPK 04/22 18:23 Order name: UAM; Complete Time: 19:08 md04/22 11:59 Order name: CT Head Brain wo Cont; Complete Time: 14:28 [facility] 04/22 11:59 Order name: Chest Single View XRAY; Complete Time: 14:28 [facility] 04/22 12:00 Order name: US Extremity Venous W Compression Mac; Complete Time: 14:28 04/22 11:59 Order name: EKG; Complete Time: 12:00 [facility] 04/22 16:11 Order name: Diet Heart Healthy; Complete Time: 16:12 04/22 11:58 Order name: IV Saline Lock; Complete Time: 12:04 [facility] 04/22 11:58 Order name: Labs collected and sent; Complete Time: 12:04 [facility] 04/22 12:25 Order name: Labs - recollect needed: recollect labs hemolyzed; Complete Time: 14:45 eb 04/22 18:22 Order name: Misc. Order: fall precautions; Complete Time: 18:34 md04/22 19:19 Order name: Misc. Order: RECOLLECT LIGHT GREEN TOP; Complete Time: 19:51 eb Administered Medications: 16:11 Drug: Aspirin PO 325 mg Route: PO; ld1 16:11 Drug: hydrALAZINE IVP 10 mg Route: IVP; Site: left hand; ld1 18:40 Drug: Metoprolol IVP 5 mg Route: IVP; Site: left hand; sg5 Disposition Summary: 04/22/23 17:37 Hospitalization Ordered Hospitalization Status: Observation sk4 Provider: Quentin Farley 4 Location: Telemetry/MedSurg (observation) sk4 Condition: Stable sk4 Problem: new sk4 Symptoms: have improved sk4 Bed/Room Type: Standard [facility] Room Assignment: 402(04/22/23 19:39) eb1 Diagnosis - Syncope sk4 - Hypertensive urgency sk4 Forms: - Medication Reconciliation Form sk4 - SBAR form sk4 Signatures: Dispatcher [employer] EDMS Karlos Khan, SALESPERSON [employer]ACH[employer]-C SALESPERSON [employer]-Cla1 Mary Márquze, RN RN Brandy Marinelli Emily, RN RN eb1 Margarita Wade RN RN 1 Krystin Garrett 4 Deena Malone RN RN sg5 Corrections: (The following items were deleted from the chart) 19:31 17:37 sk4 19:39 19:31 423 eb1
[2023-04-22] MEDS ORDERED: METOPROLOL TARTRATE 5 MG/5 ML INJ IV ONE (18:46)
[2023-04-22 19:06] LABS: Specific Gravity 1.009 (1.005-1.030); Urine Bacteria None Seen /HPF (<20); Urine Bilirubin NEGATIVE (Negative); Urine Blood Negative (Negative); Urine Clarity Clear (Clear); Urine Color Colorless (Yellow); Urine Glucose NEGATIVE (Negative); Urine Protein 3+ (Negative); Urine RBC None Seen /HPF (None Seen); Urine Urobilinogen Normal (Normal)
[2023-04-22 19:12] LABS: Barbiturates NEGATIVE (NEGATIVE); Benzodiazepines NEGATIVE (NEGATIVE); Cocaine NEGATIVE (NEGATIVE); METHAMPHETAM NEGATIVE (NEGATIVE); Methadone NEGATIVE (NEGATIVE); Opiates NEGATIVE (NEGATIVE); Phencyclidine NEGATIVE (NEGATIVE); THC Cannibis NEGATIVE (NEGATIVE)
--- NOTE | 2023-04-22 20:10 | P.HP ---
Certification for Inpatient Patient admitted to: Inpatient With expected LOS: >2 Midnights Patient will require the following post-hospital care: None Practitioner: I am a practitioner with admitting privileges, knowledge of patient current condition, hospital course, and medical plan of care. Services: Services provided to patient in accordance with Admission requirements found in Title 42 Section 412.3 of the Code of Federal Regulations Patient History Date of Service: 04/22/23 Reason for admission: Syncope, NSTEMI History of Present Illness: 73-year-old male with history of CKD 3, atrial fibrillation on chronic anticoagulation, chronic diastolic congestive heart failure, hypertension, hyperlipidemia, insulin-dependent diabetes presents to the emergency department for near syncope, hypotension. His reports that after receiving his daily medications he went outside to sit in a chair, she was having difficulty arousing him and when he did respond his eyes were glassy and he was slow to respond, she says it looks like he was about to pass out. EMS was called patient was found to be hypotensive the blood pressure in the 70s systolic he was given a small bout of IV fluids, his blood pressure improved and he was brought to the hospital. His reports ever since he was in the hospital last month discharged on 03/18/2023 he has had intermittent issues with cognition, confusion. They both relate this to one of his medications but they are not sure which one I think is causing it. He was evaluated in the emergency department and his labs were significant for initial high-sensitivity troponin 217.3 creatinine 2.12 GFR 32 glucose 137 sodium 135 UDS EtOH screen negative CT head was negative for acute findings no DVTs bilateral lower extremities chest x-ray shows mild CHF he does have edema of the lower extremities, he does report being compliant with his home medications it appears that he is on Lasix 80 mg p.o. twice daily at home as well as spironolactone 25 mg twice daily and Eliquis 2.5 mg twice daily. ED provider wishes to admit for near syncope, NSTEMI. Allergies Penicillins Adverse Reaction (Verified 01/24/23 22:00) Hives Home Medications: Apixaban [Eliquis *] 2.5 mg PO BID #60 tab 01/29/23 Aspirin Chewable [Aspirin Chewable*] 81 mg PO DAILY tab.chew 01/29/23 Atorvastatin Calcium [Lipitor] 40 mg PO BEDTIME #30 tab 01/29/23 Benzonatate [Tessalon Perle*] 100 mg PO TID PRN 7 Days #20 cap 01/29/23 Furosemide [Lasix*] 80 mg PO BIDL #60 tab 01/29/23 Hydralazine HCl 50 mg PO TID #90 tab 01/29/23 Nitroglycerin Patch [Transderm-Nitro 0.2MG/Hr Patch*] 5 mg TD DAILY #30 patch 01/29/23 Spironolactone [Aldactone*] 25 mg PO BID #60 tab 01/29/23 carvediloL [Coreg*] 12.5 mg PO BID #60 tab 01/29/23 levoFLOXacin [Levaquin*] 500 mg PO Q48H 14 Days #7 tab 02/07/23 Ensure High Protein 273 ml PO TID #90 can 03/18/23 Isosorbide Dinit [Isordil*] 20 mg PO TID #90 tab 03/18/23 - Past Medical/Surgical History Diabetic: Yes -: hypertension -: hyperlipidemia -: Atrial fibrillation -: IDDM -: Coronary artery disease -: Aortic stenosis -: CHF -: Cardiac Catheterization with stent placement -: Right leg surgery Psychosocial/ Personal History: Patient is . - Family History Brother -: Heart disease, Hypertension - Social History Alcohol use: No CD- Drugs: No Caffeine use: Yes Place of Residence: Home Review of Systems 10-point ROS is otherwise unremarkable Respiratory: Shortness of Breath Cardiovascular: Edema Physical Examination - Physical Exam General: Alert, In no apparent distress, Other (Oriented x2-3, initially did not know the year but was able to get a right on second attempt) HEENT: Atraumatic, PERRLA, Mucous membr. moist/pink, EOMI, Sclerae nonicteric Neck: Supple, 2+ carotid pulse no bruit, No LAD, Without JVD or thyroid abnormality Respiratory: Clear to auscultation bilaterally, Normal air movement Cardiovascular: Normal S1 S2, Edema (2+ pitting edema bilateral lower extremities), Irregular heart rate/rhythm (A-fib, rate controlled) Capillary refill: <2 Seconds Gastrointestinal: Normal bowel sounds, No tenderness Musculoskeletal: No tenderness Integumentary: No rashes Neurological: Normal speech, Normal strength at 5/5 x4 extr, Normal tone, Normal affect - Studies Laboratory Data (last 24 hrs) 04/22/23 14:40: Sodium 135 L, Potassium 4.6, BUN 37 H, Creatinine 2.12 H, Glucose 137 H, Total Bilirubin 0.5, AST 28, ALT 25, Alkaline Phosphatase 59 04/22/23 14:40: WBC 7.60, Hgb 17.1, Hct 55.2 H, Plt Count 213 Assessment and Plan - Plan Assessment: Near syncope Acute on chronic diastolic congestive heart failure Atrial fibrillation on chronic anticoagulation Diabetes mellitus type 2insulin-dependent CKD 3 hypertension Hyperlipidemia CAD with previous PCI Bilateral lower extremity wounds Plan: Near syncope Unclear etiology, family and patient believe this is medication related. Will perform med rec. Patient did not have loss of consciousness CT head was negative for acute findings he does appear to be overloaded at this time, in the field patient was reportedly hypotensive with initial pressure in the 70s, this resolved after small amount of IV fluids. Will order orthostatic vital signs, obtain echocardiogram, cardiology consult. Trend troponins. Acute on chronic diastolic congestive heart failure Continue with IV diuresis, echocardiogram, cardiology consult. Continue other home medications. Atrial fibrillation on chronic anticoagulation Continue carvedilol, Eliquis, monitor on telemetry. Diabetes mellitus type 2insulin-dependent ACHS Accu-Chek, sliding scale insulin. CKD 3 Continue diuresis, consult nephrology if there is significant worsening. hypertension Hyperlipidemia CAD with previous PCI Continue home medications Bilateral lower extremity wounds Wound healing consult. DVT PPX: Continue Eliquis Code status: Full code Discharge Plan: Home Plan to discharge in: Greater than 2 days - Advance Directives Does patient have a Living Will: No Does patient have a Durable POA for Healthcare: No - Code Status/Comfort Care Code Status Assessed: Yes (Full code) Critical Care: No Time Spent Managing Pts Care (In Minutes): 70
[2023-04-22 20:30] LABS: Magnesium 1.6 mg/dL (1.6-2.4)
[2023-04-22] MEDS ORDERED: ACETAMINOPHEN 500 MG TAB PO PRN (21:23)
[2023-04-22] MEDS: INSULIN -REGULAR HUMAN 50 UNIT/0.5 ML ML SQ SCH (21:23)
[2023-04-22] MEDS: APIXABAN 2.5 MG TABLET PO SCH (21:56)
[2023-04-22 22:53] VITALS: BMI 28.4
[2023-04-23 04:34] LABS: Absolute Lymphocytes (CBC) 1.3 K/uL (0.7-4.9); Lymphocytes % 19.4 % (15.3-44.8); MPV 8.4 fL (7.6-11.3); RBC Red Blood Cell Count 5.42 M/uL (4.33-5.43)
[2023-04-23] MEDS: carvediloL 12.5 MG TAB PO SCH ×2 (04:42→18:22)
[2023-04-23 04:59] LABS: Potassium 4.1 mEq/L (3.5-5.1); Thyroid Stimulating Hormone 1.09 uIU/mL (0.358-3.740)
--- NOTE | 2023-04-23 06:56 | P.PN ---
Date of Service: 04/23/23 Subjective: Feeling better today, back to usual self Doesn't recall events prior to loss of consciousness no new / worsening problems denies any other symptoms ROS: 10 point ROS as noted above, otherwise negative Physical Exam: GEN: Alert, orientedx2, NAD HEENT: Normal conjunctiva, sclera anicteric CV: Regular rate and rhythm, trace edema Pulm: Nonlabored respirations on room air ABD: Soft, nontender, nondistended Integumentary: b/l superfical wounds to legs Neuro: Normal speech, normal affect vitals reviewed Problem List: Near syncope Acute on chronic diastolic CHF Atrial fibrillation on chronic anticoagulation IDDM2 CKD 3 Hypertension Hyperlipidemia CAD with previous PCI Bilateral lower extremity wounds Near syncope Unclear etiology, family and patient believe this is medication related. Patient did not have loss of consciousness in the field patient was reportedly hypotensive with initial pressure in the 70s, resolved with some IVF CT head(04/22): negative for acute findings he does appear to be overloaded at this time Venous Doppler (04/22): no DVT troponins elevated x3, BNP elevated monitor on telemetry cardiology consulted - no further cardiac ischemic workup while inpatient; had recent echo in office as well check orthostatic vitals Acute on chronic diastolic CHF CKD 3 in ED, reportedly over-volume, on floor does not appear overloaded monitor closely Cardiology consulted Continue other home medications. Atrial fibrillation on chronic anticoagulation Continue carvedilol, Eliquis IDDM2 ACHS Accu-Chek, SSI Hypertension Hyperlipidemia CAD with previous PCI Continue home medications Bilateral lower extremity wounds Wound healing consult - sees Dr. Granados 04/23 - Patient feels they look better today compared to the past VTE: Home Eliquis Code: Full Dispo: Home 1-2 days
[2023-04-23] MEDS: INSULIN -REGULAR HUMAN 50 UNIT/0.5 ML ML SQ SCH ×4 (07:30→21:00)
[2023-04-23] MEDS: ISOSORBIDE DINIT 20 MG TAB PO SCH ×3 (10:30→22:00)
[2023-04-23] MEDS: SPIRONOLACTONE 25 MG TABLET PO SCH ×2 (10:30→18:21)
[2023-04-23] MEDS: ASPIRIN 81 MG CHEWABLE TABLET PO SCH (10:30)
[2023-04-23] MEDS: BENZONATATE 100 MG CAP PO SCH ×3 (10:31→22:00)
[2023-04-23] MEDS: APIXABAN 2.5 MG TABLET PO SCH ×2 (10:31→22:00)
[2023-04-23] MEDS: HYDRALAZINE HCL 25 MG TABLET PO SCH ×3 (10:31→22:00)
[2023-04-23] MEDS: FUROSEMIDE 40 MG/4 ML VIAL IV SCH ×2 (10:31→18:22)
[2023-04-23] MEDS: ENSURE HIGH PROTEIN 237 ML CAN PO SCH ×3 (10:33→21:00)
[2023-04-23] MEDS: ATORVASTATIN 40 MG TAB PO SCH (22:00)
[2023-04-24 04:20] VITALS: O2SAT 98
[2023-04-24] MEDS: carvediloL 12.5 MG TAB PO SCH ×2 (05:57→17:07)
--- NOTE | 2023-04-24 06:57 | P.PN ---
Date of Service: 04/24/23 Subjective: feeling back to normal self, mild confusion no new / worsening problems denies any other symptoms BP improving ROS: 10 point ROS as noted above, otherwise negative Physical Exam: GEN: Alert, orientedx3, NAD HEENT: Normal conjunctiva, sclera anicteric CV: Regular rate and rhythm, trace edema Pulm: Nonlabored respirations on room air ABD: Soft, nontender, nondistended Integumentary: b/l superfical wounds to legs Neuro: Normal speech, normal affect vitals reviewed Problem List: Near syncope Acute on chronic diastolic CHF Atrial fibrillation on chronic anticoagulation IDDM2 CKD 3 Hypertension Hyperlipidemia CAD with previous PCI Bilateral lower extremity wounds Near syncope Unclear etiology, family and patient believe this is medication related. Patient did not have loss of consciousness in the field patient was reportedly hypotensive with initial pressure in the 70s, resolved with some IVF CT head(04/22): negative for acute findings he does appear to be overloaded at this time Venous Doppler (04/22): no DVT troponins elevated x3, BNP elevated monitor on telemetry cardiology consulted - no further cardiac ischemic workup while inpatient; had recent echo in office as well check orthostatic vitals PT consult adjust anti-hypertensives, monitor Acute on chronic diastolic CHF CKD 3 in ED, reportedly over-volume, on floor does not appear overloaded monitor closely Cardiology consulted Continue other home medications. cont PO lasix Atrial fibrillation on chronic anticoagulation Continue carvedilol, Eliquis IDDM2 ACHS Accu-Chek, SSI Hypertension Hyperlipidemia CAD with previous PCI Continue home medications Bilateral lower extremity wounds Wound healing consult - sees Dr. Granados - goes to clinic once/week on wednesdays - Patient feels they look better today compared to the past VTE: Home Eliquis Code: Full Dispo: Home ~1 day pending further improvement
[2023-04-24 07:10] LABS: Absolute Lymphocytes (CBC) 1.3 K/uL (0.7-4.9); Hematocrit 46.6 % (39.6-49.0); Lymphocytes % 17.6 % (15.3-44.8); MPV 8.3 fL (7.6-11.3); RBC Red Blood Cell Count 5.48 M/uL (4.33-5.43)
[2023-04-24 07:27] LABS: Potassium 4.5 mEq/L (3.5-5.1)
[2023-04-24] MEDS: INSULIN -REGULAR HUMAN 50 UNIT/0.5 ML ML SQ SCH ×4 (07:30→21:00)
[2023-04-24] MEDS: HYDRALAZINE HCL 25 MG TABLET PO SCH ×3 (09:23→21:13)
[2023-04-24] MEDS: SPIRONOLACTONE 25 MG TABLET PO SCH ×2 (09:23→17:07)
[2023-04-24] MEDS: FUROSEMIDE 40 MG TABLET PO SCH ×2 (09:23→17:07)
[2023-04-24] MEDS: ISOSORBIDE DINIT 20 MG TAB PO SCH ×3 (09:23→21:13)
[2023-04-24] MEDS: BENZONATATE 100 MG CAP PO SCH ×3 (09:23→21:00)
[2023-04-24] MEDS: APIXABAN 2.5 MG TABLET PO SCH ×2 (09:23→21:12)
[2023-04-24] MEDS: ASPIRIN 81 MG CHEWABLE TABLET PO SCH (09:23)
[2023-04-24] MEDS: ENSURE HIGH PROTEIN 237 ML CAN PO SCH ×3 (09:24→21:00)
[2023-04-24] MEDS: ATORVASTATIN 40 MG TAB PO SCH (21:12)
[2023-04-25] MEDS: carvediloL 12.5 MG TAB PO SCH (06:00)
[2023-04-25] MEDS: INSULIN -REGULAR HUMAN 50 UNIT/0.5 ML ML SQ SCH ×2 (07:30→12:29)
[2023-04-25] MEDS: HYDRALAZINE HCL 25 MG TABLET PO SCH (08:46)
[2023-04-25] MEDS: ENSURE HIGH PROTEIN 237 ML CAN PO SCH (08:46)
[2023-04-25] MEDS: BENZONATATE 100 MG CAP PO SCH (08:47)
[2023-04-25] MEDS: ASPIRIN 81 MG CHEWABLE TABLET PO SCH (08:47)
[2023-04-25] MEDS: ISOSORBIDE DINIT 20 MG TAB PO SCH (08:47)
[2023-04-25] MEDS: FUROSEMIDE 40 MG TABLET PO SCH (08:47)
[2023-04-25] MEDS: SPIRONOLACTONE 25 MG TABLET PO SCH (08:47)
[2023-04-25] MEDS: APIXABAN 2.5 MG TABLET PO SCH (08:47)
[2023-04-25] MEDS ORDERED: MUPIROCIN 2% OINT 22GM TUBE TOP SCH (09:00)
[2023-04-25 11:56] LABS: Absolute Lymphocytes (CBC) 1.2 K/uL (0.7-4.9); Hematocrit 47.2 % (39.6-49.0); Lymphocytes % 18.6 % (15.3-44.8); MPV 8.5 fL (7.6-11.3); RBC Red Blood Cell Count 5.55 M/uL (4.33-5.43)
[2023-04-25 12:06] LABS: Potassium 4.4 mEq/L (3.5-5.1)
[2023-04-25 12:20] VITALS: BP 133/67; TEMP 97.4
--- NOTE | 2023-04-25 13:10 | P.DS ---
Admission Date: 04/22/23 Discharge Date: 04/25/23 Disposition: DC HOME/HOME HEALTH CARE Discharge Condition: FAIR Reason for Admission: Syncope, NSTEMI Brief History of Present Illness: 73-year-old male with history of CKD 3, atrial fibrillation on chronic anticoagulation, chronic diastolic congestive heart failure, hypertension, hyperlipidemia, insulin-dependent diabetes presents to the emergency department for near syncope, hypotension. His reports that after receiving his daily medications he went outside to sit in a chair, she was having difficulty arousing him and when he did respond his eyes were glassy and he was slow to respond, she says it looks like he was about to pass out. EMS was called patient was found to be hypotensive the blood pressure in the 70s systolic he was given a small bout of IV fluids, his blood pressure improved and he was brought to the hospital. He was evaluated in the emergency department and his labs were significant for initial high-sensitivity troponin 217.3 creatinine 2.12 GFR 32 glucose 137 sodium 135 UDS EtOH screen negative CT head was negative for acute findings. Chest x-ray shows mild CHF he does have edema of the lower extremities. Patient was admitted for further management. Hospital Course: Diagnosis Near syncope Acute on chronic diastolic CHF Atrial fibrillation on chronic anticoagulation IDDM2 CKD 3 Hypertension Hyperlipidemia CAD with previous PCI Bilateral lower extremity wounds Aortic stenosis Near syncope/Aortic stenosis Unclear etiology, family and patient believe this is medication related-likely diuretics. Patient did not have loss of consciousness in the field patient was reportedly hypotensive with initial pressure in the 70s. Patient was hypertensive on arrival to the ED after IV normal saline administration. CT head(04/22): negative for acute findings. Venous Doppler (04/22): no DVT troponins elevated x3 mildly elevated but trended flat. Elevated troponin likely secondary to demand ischemia. BNP was elevated cardiology consulted - no further cardiac ischemic workup while inpatient; had recent echo in office as well Patient was evaluated by PT. He ambulated with PT. Patient was mostly hypertensive during the hospital stay. Current systolic blood pressure prior to discharge was 133. Follow up with cardiology as outpatient. Acute on chronic diastolic CHF CKD 3 in ED, reportedly over-volume. He currently appears compensated for CHF. Continued home medications including Lasix. Atrial fibrillation on chronic anticoagulation Continued carvedilol, Eliquis IDDM2 Managed with insulin sliding scale. Hypertension Hyperlipidemia CAD with previous PCI Continued home medications Bilateral lower extremity wounds He sees Dr. Granados - goes to clinic once/week on wednesdays. Vital Signs/Physical Exam: Temp Pulse Resp BP Pulse Ox 97.4 F 72 26 H 133/67 96 04/25/23 12:00 04/25/23 12:00 04/25/23 12:00 04/25/23 12:00 04/25/23 12:00 General: Alert, In no apparent distress, Oriented x3 HEENT: Mucous membr. moist/pink Neck: Supple, JVD not distended Respiratory: Clear to auscultation bilaterally, Normal air movement Cardiovascular: Normal S1 S2, Edema, Irregular heart rate/rhythm Gastrointestinal: Soft and benign, Non-distended, No tenderness Musculoskeletal: No swelling Integumentary: No cyanosis Neurological: Normal strength at 5/5 x4 extr Laboratory Data at Discharge: WBC 6.30 thou/uL (4.3-10.9) 04/25/23 11:45 Hgb 14.7 g/dL (13.6-17.9) 04/25/23 11:45 Hct 47.2 % (39.6-49.0) 04/25/23 11:45 Plt Count 268 thou/uL (152-406) 04/25/23 11:45 Sodium 137 mEq/L (136-145) 04/25/23 11:45 Potassium 4.4 mEq/L (3.5-5.1) 04/25/23 11:45 BUN 41 mg/dL (7-18) H 04/25/23 11:45 Creatinine 1.94 mg/dL (0.70-1.30) H 04/25/23 11:45 Glucose 199 mg/dL (74-106) H 04/25/23 11:45 Magnesium 1.6 mg/dL (1.6-2.4) 04/22/23 19:55 Total Bilirubin 0.5 mg/dL (0.2-1.0) 04/22/23 14:40 AST 28 U/L (15-37) 04/22/23 14:40 ALT 25 U/L (16-61) 04/22/23 14:40 Alkaline Phosphatase 59 U/L (45-117) 04/22/23 14:40 Home Medications: Apixaban [Eliquis *] 2.5 mg PO BID #60 tab 01/29/23 Aspirin Chewable [Aspirin Chewable*] 81 mg PO DAILY tab.chew 01/29/23 Atorvastatin Calcium [Lipitor] 40 mg PO BEDTIME #30 tab 01/29/23 Furosemide [Lasix*] 80 mg PO BIDL #60 tab 01/29/23 Hydralazine HCl 50 mg PO TID #90 tab 01/29/23 Spironolactone [Aldactone*] 25 mg PO BID #60 tab 01/29/23 carvediloL [Coreg*] 12.5 mg PO BID #60 tab 01/29/23 Ensure High Protein 273 ml PO TID #90 can 03/18/23 Isosorbide Dinit [Isordil*] 20 mg PO TID #90 tab 03/18/23 Benzonatate [Tessalon Perle*] 100 mg PO TID 04/22/23 Mupirocin Oint [Bactroban 2% Ointment*] 1 appl TOP DAILY #1 tube 04/25/23 New Medications: Mupirocin Oint [Bactroban 2% Ointment*] 1 appl TOP DAILY #1 tube Physician Discharge Instructions: Please check your blood pressure every day and keep a log to be reviewed by Dr. Mitchell. Diet: AHA Activity: Fall precautions Followup: NONE,NONE [Primary Care Provider] - Selena Mitchell MD [ACTIVE - CAN ADMIT] - 1 Week (Please follow up with Dr. Mitchell next week in the office.) Time spent managing pt's care (in minutes): 35
--- NOTE | 2023-04-25 15:02 | EKG ---
Test Date: 2023-04-22 Test Time: 12:02:13 Shift Leader: Jim DAVIS MEASUREMENT RESULTS: Intervals: Rate: 87 [place]: 168 QRSD: 90 QT: 396 QTc: 476 [place]: P: 75 [place]: 168 QRS: -51 T: 25 INTERPRETIVE STATEMENTS: Normal sinus rhythm Left anterior fascicular block Abnormal ECG Compared to ECG 03/16/2023 12:18:53 Left anterior fascicular block now present Atrial abnormality no longer present Electronically Signed On 04-25-23 14:57:46 CDT by Chad Alvarez
--- NOTE | 2023-04-26 18:45 | CON ---
Date of Consultation: 04/24/2023 Reason For Consultation: Near syncope. History Of Present Illness: A 73-year-old male with history of chronic heart failure, systolic and d iastolic. Has atrial fibrillation, chronic kidney disease, moderate aortic valve stenosis, hypertens ion, dyslipidemia, and diabetes. He has been on aggressive diuresis as an outpatient basis and he is maintaining good euvolemic condition; however, he stood up suddenly and felt dizzy and collapsed for a brief time, few seconds. His blood pressure was in the low 70s and he had a small bolus of IV flu ids and blood pressure went back up and he is feeling well. No other complaints. Past Medical History: As outlined above in the HPI. Medications: Refer to reconciliation sheet for detailed list. Allergies: PENICILLIN. Family History: No premature coronary artery disease or cancer. Social History: He does not smoke or drink. Does not use any drugs. Review of Systems: All systems reviewed and they were negative except what mentioned in HPI. Physical Examination: Vital Signs: Reviewed. Head and Neck: Pupils are equal, reactive to light. Intact eye movements. No JVD. No cervical lym phadenopathy. Neck is supple. Thyroid is not enlarged. Lungs: Clear to auscultation bilaterally. No rhonchi, wheezing, or crackles. No accessory muscle u se. Heart: Irregularly irregular with aortic ejection systolic murmur. Abdomen: Soft, nontender. Bowel sounds positive. No organomegaly. No masses or hernia. No rigidi ty or rebound. Extremities: Trace edema bilaterally. No clubbing or cyanosis. Intact pulses. Skin: No rash. Neurologic: Alert, awake, oriented x3. No acute focal deficits appreciated. Investigations: BUN 39, creatinine is 1.86, and his hemoglobin was 14.8. Assessment And Recommendations: 1.Near syncope likely due to hypotension from over diuresis. Hold off on the diuretics for 1 day an d then resume at a lower dose for the next 24 hours and monitor on telemetry. No need for echo as he had 1 done recently on outpatient basis. 2.Elevated troponin. He had coronary angiogram recently that did not show any significant stenosis. Likely, this is demand. Monitor. No further cardiac workup or testing is needed. 3.Aortic valve stenosis. It is moderate per recent echo and was checked. We will continue to monit or. 4.Chronic kidney disease and this is stable. SR/MODL Voice ID: [id number] Report ID: [id number]
--- NOTE | 2023-04-26 19:21 | PN ---
Date of Progress Note: 04/25/2023 Subjective: Seen by bedside. Doing clinically well. No dizziness. He is active, moving around. N o shortness of breath. Review of Systems: No chest pain, shortness of breath, orthopnea, cough. No nausea, vomiting, diarrhea. All other syst ems reviewed and they were negative. Physical Examination: Vital Signs: Reviewed. Head and Neck: Pupils are equal, reactive to light. Intact eye movements. No JVD. No cervical lym phadenopathy. Neck is supple. Thyroid is not enlarged. Lungs: Clear to auscultation bilaterally. No rhonchi, wheezing, or crackles. No accessory muscle u se. Heart: Irregular with aortic systolic ejection murmur. Abdomen: Soft, nontender. Bowel sounds positive. No organomegaly. No masses or hernia. No rigidi ty or rebound. Extremities: Trace edema bilaterally. No clubbing or cyanosis. Intact pulses. Skin: No rash. Neurologic: Alert, awake, oriented x3. No acute focal deficits appreciated. Investigations: BUN 41, creatinine 1.94. Assessment And Recommendations: 1.Near syncope due to hypotension, now blood pressure is stable. No further adjustment of medicatio ns. From Cardiology standpoint, he can be released to follow up as an outpatient. 2.Congestive heart failure. He is euvolemic, NYHA Class II at this moment. Continue current manage ment. Strict low-salt diet is encouraged. 3.Aortic valve stenosis. It is moderate and is being monitored on an outpatient basis. SR/MODL Voice ID: [id number] Report ID: [id number]
== END 2023-04-25 14:45 | disposition home health service (06) | DRG 306 ==
LOC: ER 11:21 → ERHOLD 18:41 → 4TH 19:39
PROVIDERS: ADMIT Hospitalist; ATTEND Internal Medicine
DX: I35.0 Nonrheumatic aortic (valve) stenosis (principal); I50.33 Acute on chronic diastolic (congestive) heart failure; I13.0 Hypertensive heart and chronic kidney disease with heart failure and stage 1 through stage 4 chronic kidney disease, or unspecified chronic kidney disease; I24.8 Other forms of acute ischemic heart disease; I16.0 Hypertensive urgency; N18.30 Chronic kidney disease, stage 3 unspecified; E11.22 Type 2 diabetes mellitus with diabetic chronic kidney disease; I48.91 Unspecified atrial fibrillation; E78.00 Pure hypercholesterolemia, unspecified; I25.10 Atherosclerotic heart disease of native coronary artery without angina pectoris; Z79.4 Long term (current) use of insulin; Z88.0 Allergy status to penicillin; Z95.5 Presence of coronary angioplasty implant and graft; Z79.01 Long term (current) use of anticoagulants; Z79.84 Long term (current) use of oral hypoglycemic drugs; Z79.82 Long term (current) use of aspirin; Z79.899 Other long term (current) drug therapy
CPT/HCPCS: 36415; 70450; 71045; 80048; 80053; 80307; 81001; 82077; 82140; 82550; 82947; 83036; 83605; 83735; 83880; 84439; 84443; 84484; 85025; 93005; 93970; 96374; 96375; 97116; 97161; 97530; 99285; J0360; J1815; J1940

== ENCOUNTER 2023-05-06 11:50 | Emergency (ER) | payer OTHER ==
--- OUTSIDE RECORDS SUMMARY | 2023-05-06 11:54 | XMS REPORT | Continuity of Care Document ---
:1950 Author Organization [facility] t Address [address] [facility] [place] [address] Care Team Providers Name Role Phone KAPIL DONIS Primary Care Physician Unavailable Kapil Donis Attending Clinician Unavailable Carlyn MALDONADO, Jose [...] Policy Number Effective Date Expiration Date [place] [address] [id number] [facility] Problems Condition Condition Condition Status Onset Resolution Last Treating Co mments Source Name Details Category Date Date Treatment Clinician Date Nausea and Nausea and Disease Active U nivers vomiting vomiting 6-07 ity of in adult in adult 00:00: [address] MULLER MULLER Disease Active Univers (dyspnea (dyspnea 07 ity of on on 00:00: [place] exertion) exertion) 00 Medi rafael Branch Coronary Coronary Disease Active Unive rs artery artery 03-08 ity of disease disease 00:00: [place] involving involving 00 Medi [place] coronary coronary artery of artery of [place] heart with heart with angina angina pectoris pectoris Dyslipidem Dyslipidem Disease Active U sergioers ia ia 6 ity of 00:00: [place] [...] ity of 00:00: [place] 00 Medical Branch [id number] 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 - [facility]I n) of [facility] [id number] Prostate Problem Active Com mon nodule Spirit - [facility] [id number] Urge Problem Active Common incontinen Spirit ce - [facility] [id number] Lower Problem Active Common urinary Spirit tract - CHI symptoms (LUTS) [facility] Allergies, Adverse Reactions, Alerts Allergy Allergy Status Severity Reaction(s) Onset Inactive Treating Comm ents Source Name Type Date Date Clinician Penicill DA Active SV HIVES [facility] ins 8-05 Clear 00:00: Gonsales [address] [place] [address] Penicill Propensi Active Rash Univer s ins [...] SDOH Social Unive rsity of Connections Get [place] Med ical Together Branch History SDOH Social Unive rsity of Connections Zoroastrian [place] [facility] History SDOH Social Unive rsity of Connections [place] [facility] Membership Branch History SDOH Social Unive rsity of Connections [place] [facility] Meetings Branch Tobacco use and 2023-03-08 2023-03-08 Smokeless Universit y of exposure 00:00:00 00:00:00 tobacco non-user [facility] dical Branch Alcohol intake 2023-03-08 2023-03-08 3 /d University of 00:00:00 00:00:00 [place] [facility] History SDOH 2023-03-08 2023-03-08 1 University o f Alcohol Frequency 00:00:00 00:00:00 [facility] edical Branch History SDOH Social 2023-03-08 2023-03-08 5 Unive rsity of Connections Phone 00:00:00 00:00:00 [facility] edical Branch History SDOH Social 2023-03-08 2023-03-08 3 Unive rsity of Connections Living 00:00:00 00:00:00 [place] [facility] History SDOH 2023-03-08 2023-03-08 5 [...] University o f Transport Non-Med 00:00:00 00:00:00 [place] M edical Branch History SDOH 2023-03-08 2023-03-08 2 University o f Housing Unable to 00:00:00 00:00:00 [place] M edical Pay Branch History SDOH 2023-03-08 2023-03-08 1 University o f Housing Places 00:00:00 00:00:00 [facility] rafael Lived Branch History SDOH 2023-03-08 2023-03-08 2 University o f Housing Homeless 00:00:00 00:00:00 [place] dical Last Year Branch Tobacco Comment 2023-03-08 2023-03-08 quit smoking 20 Univ ersity of 00:00:00 00:00:00 yrs ago [facility] Sex Ass[birth year] At [birth year] [facility] y of 00:00:00 00:00:00 [facility] Smoking Status Start Date Stop Date Source Ex-smoker 2023-03-08 00:00:00 2023-03-08 00:00:00 [facility] Medications Ordered Filled Start Stop Current Ordering Indication Dosage Frequency Signature Comments Components Source Medication Medication Date Date Medication? Clinician (SIG) Name Name insulin Yes [id number] 15U inject 15 U nivers glargine 6-09 Units ity of 100 unit/mL 00:00: [place] injection 00 skin in [facility] morning. insulin Yes [id number] 15U inject 15 U nivers glargine 6-09 Units ity of 100 unit/mL 00:00: [place] injection 00 skin in [facility] morning. amLODIPine 2022- Yes [id number] 10mg Take 1 Univers 10 mg 03-1010 tablet by ity of tablet 00:00: 04:59 mouth in [place] 00 :00 the [facility] for 30 days. metoprolol 2022- Yes [id number] 50mg Take 1 Univers succinate 03-10-10 tablet by ity of XL 50 mg 24 00:00: 04:59 mouth in [place] hr tablet 00 :00 the [facility] for 30 days. amLODIPine 2022- Yes [id number] 10mg Take 1 Univers 10 mg 03-10 tablet by ity of tablet 00:00: 04:59 mouth in [place] 00 :00 the Medical morning Branch for 30 days. metoprolol 2022-0 2022- Yes [id number] 50mg Take 1 Univers succinate 6 07-10 [...] mouth ity of (ESIDRIX) 15:36: 00:00 daily. [place] 25 mg 42 :00 Medical tablet Branch [...] 03-09 mouth. ity of (SKYLAR) 15:36: 00:00 [place] 10-40 mg 42 :00 Medical per tablet Branch INSULIN 2022- No inject Univers DETEMIR 03-09 under the ity of (LEVEMIR 15:36: 00:00 skin. [place] FLEXTOUCH 42 :00 Medical SC) Branch aspirin 81 2022- No 81mg Take 81 mg Univers mg EC 03-09 by mouth ity of tablet 15:36: 00:00 daily. [place] 42 :00 Medical Branch rosuvastati Yes 10mg 10 mg, Univ ers n (CRESTOR) 03-09 Oral, QHS, it y of tablet 10 02:00: [place] mg 00 on Mon03/08/23 at Branch 2100, Until Discontinu ed, Routine aspirin 81 2022- Yes [id number] 81mg Take 1 Univers mg EC 03-09 tablet by ity of tablet 00:00: 04:59 mouth in [place] 00 :00 the Medical morning Branch for 30 days. hydroCHLORO 2022- Yes [id number] 25mg Take 1 Univers thiazide 25 03-09 tablet by it y of mg tablet 00:00: 04:59 mouth in [place] 00 :00 the Medical morning Branch for 30 days. metFORMIN 2022- Yes [id number] 1000mg Take 1 Univers 1,000 mg 03-09 tablet by ity o f tablet 00:00: 04:59 mouth in [place] 00 :00 the Medical morning Branch and 1 tablet in the evening. Take with meals. Do all this for 30 days. rosuvastati 2022- Yes [id number] 10mg Take 1 Univers n 10 mg 03-09 tablet by ity of tablet 00:00: 04:59 mouth at [place] 00 :00 bedtime Medical for 30 Branch days. aspirin 81 2022- Yes [id number] 81mg Take 1 Univers mg EC 03-09 tablet by ity of tablet 00:00: 04:59 mouth in [place] 00 :00 the Medical morning Branch for 30 days. hydroCHLORO 2022- Yes [id number] 25mg Take 1 Univers thiazide 25 03-09 tablet by it y of mg tablet 00:00: 04:59 mouth in [place] 00 :00 the Medical morning Branch for 30 days. metFORMIN 2022- Yes [id number] 1000mg Take 1 Univers 1,000 mg 03-09 tablet by ity o f tablet 00:00: 04:59 mouth in [place] 00 :00 the Medical morning Branch and 1 tablet in the evening. Take with meals. Do all this for 30 days. rosuvastati 2022- Yes [id number] 10mg Take 1 Univers n 10 mg 03-09 tablet by ity of tablet 00:00: 04:59 mouth at [place] 00 :00 bedtime Medical for 30 Branch days. sulfur 2022- No [id number] 5mL 5 mL, Unive rs hexafluorid 03-08 Intravenou i ty of e microsphr 15:45: 15:45 s, ONCE, 1 [place] (LUMASON) 00 :00 dose, On Medica l injection 5 Mon03/08/23 Br anch mL at 1045, Routine
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 approving Restricted medication : RONALD AVILA Saline Yes [id number] 6mL 6 mL, Univer s Bubble 03-08 Injection, ity of Study 15:41: SEE-INSTRU [place] [address] CTIONS, Medical Starting Branch on Mon03/08/23 at 1041, Until Discontinu ed, Routine insulin 2023-0 Yes 15U 15 Units, Unive rs glargine 07 Subcutaneo ity o f (LANTUS 14:15: us, [...] Oral, ity of XL (TOPROL 14:15: DAILY, [place] XL) tablet 00 First dose Med ical 50 mg on Mon03/08/23 at 0915, Until Discontinu ed, Routine hydroCHLORO Yes 25mg 25 mg, Univ ers thiazide 03-08 Oral, ity of (ESIDRIX) 14:15: DAILY, [place] tablet 25 00 First dose Medi rafael [...] 0904, Until Discontinu ed, Routine, Anxiety Sliding Yes Subcutaneo Univ ers Scale 07 us, TID ity of Insulin - 13:00: MEALS+HS, [place] as Lispro 00 First dose Medical (HumaLOG) on Mon03/08/23 at 0800, Until Discontinu ed, Routine heparin 2022-0 Yes 5000U 5,000 Univers (porcine) 03-08 Units, ity of injection 11:00: Subcutaneo [place] 5,000 Units 00 us, Q8H, Medi rafael First dose Branch on 6/7/23 at 0600, Until Discontinu ed, Routine hydralAZINE [...] IV Push, ity of (PF)) 09:36: Q6HPRN, [place] injection 4 24 Starting Medi rafael mg on Mon Branch 03/08/23 at 0436, Until Discontinu ed, Routine, Nausea and Vomiting (N/V) HYDROcodone 2022-0 2022- Yes 1{tbl} 1 tablet, Univers -acetaminop 03-08-09 Oral, ity of hen (NORCO 09:36: 09:35 Q6HPRN, [place] as 5) 5-325 mg 16 :16 Starting Medi rafael tablet 1 on Mon Branch tablet 03/08/23 at 0436, Until 03/10/23 at 0435, Routine, Pain (scale 4-6) acetaminoph 2022-0 Yes 650mg 650 mg, Un tono en 03-08 Oral, ity of (TYLENOL) 09:36: Q6HPRN, [place] tablet 650 10 Starting Medic al mg on Mon Branch 03/08/23 at 0436, Until Discontinu ed, Routine, Pain (scale 1-3), Temp > 38 C ondansetron 2022- No 4mg 4 mg, Slow Univers (ZOFRAN 03-08 06 IV Push, ity of (PF)) 05:45: 05:40 [...] blood 2023-03-10 00:08:00 163 mm[Hg] Univer sity [facility] Diastolic blood 2023-03-10 00:08:00 90 [facility]Hg[facility] 2023-03-10 00:08:00 70 /min [facility] Body temperature 2023-03-10 00:08:00 35.17 Teresa [facility] Respiratory rate 2023-03-10 00:08:00 16 /min [facility] Oxygen saturation in 2023-03-10 00:08:00 90 /min [facility] blood by [facility] Pulse oximetry Branch Body weight 2023-03-09 08:37:00 102.967 kg [facility] BMI 2023-03-09 08:37:00 30.79 kg/m2 [facility] Body height 2023-03-08 09:35:00 182.9 cm [facility] height 2020-12-03 11:15:00 70 [in_i] [facility] weight 2020-12-03 11:15:00 197 [lb_av] [facility] temperature 2020-12-03 11:15:00 97.6 [degF] [facility] bmi 2020-12-03 11:15:00 28.26 kg/m2 [facility] oximetry 2020-12-03 11:15:00 97 % [facility] blood pressure 2020-12-03 11:15:00 139 mm[Hg] Common [facility] - systolic [facility] blood pressure 2020-12-03 11:15:00 64 mm[Hg] Common [facility] - diastolic [facility] height 2020-08-24 14:00:00 70 [in_i] [facility] weight 2020-08-24 14:00:00 199.6 [lb_av] Common [facility] temperature 2020-08-24 14:00:00 98.4 [degF] Common S [facility] bmi 2020-08-24 14:00:00 28.64 kg/m2 [facility] oximetry 2020-08-24 14:00:00 96 % [facility] blood pressure 2020-08-24 14:00:00 197 mm[Hg] Common [facility] - systolic [facility] blood pressure 2020-08-24 14:00:00 86 mm[Hg] Common [facility] - diastolic [facility] Procedures Procedure Date / Time Performing Clinician Source Performed POCT GLUCOSE (AUTOMATED) 2023-03-09 21:33:00 Starla Tafoya [facility] POCT GLUCOSE (AUTOMATED) 2023-03-09 16:39:00 Michelet [facility] [place] [facility] POCT GLUCOSE (AUTOMATED) 2023-03-09 12:45:00 Starla Tafoya [facility] PHOSPHORUS 2023-03-09 09:02:00 Kel Yin [facility] MAGNESIUM 2023-03-09 09:02:00 Michelet [facility] TROPONIN I 2023-03-09 09:02:00 [facility] HE[facility] FUNCTION PANEL 2023-03-09 09:02:00 Kel Yin [facility] ([id number]) (ALB,T.PRO,BILI Medical Branch T,BU/BC,ALT,AST,ALK PHOS) BASIC METABOLIC PANEL 2023-03-09 09:02:00 [facility] ([facility], K, CL, CO2, Medical Branch GLUCOSE, BUN, CREATININE, CA) CBC WITH DIFF 2023-03-09 09:02:00 Jagdish Martin [facility] N-TERMINAL PRO-BNP 2023-03-09 09:02:00 Kel Yin [facility] POCT GLUCOSE (AUTOMATED) 2023-03-09 02:08:00 Starla Tafoya [facility] TROPONIN I 2023-03-08 22:51:00 Michelet [facility] GLYCOSYLATED HEMOGLOBIN 2023-03-08 22:51:00 Jagdish mckeon [facility] (A1C) [facility] POCT GLUCOSE (AUTOMATED) 2023-03-08 21:22:00 Michelet [facility] [place] [facility] POCT GLUCOSE (AUTOMATED) 2023-03-08 16:16:00 Michelet [facility] [place] [facility] TRANSTHORACIC ECHO (TTE) 2023-03-08 14:29:00 Starla Tafoya [facility] COMPLETE W/ CONTRAST Medical [facility] POCT GLUCOSE (AUTOMATED) 2023-03-08 12:39:00 Micehlet [facility] [place] [facility] PHOSPHORUS 2023-03-08 11:24:00 Michelet [facility] TROPONIN I 2023-03-08 11:24:00 Michelet [facility] N-TERMINAL PRO-BNP 2023-03-08 11:24:[address] [facility] XR CHEST 1 VW 2023-03-08 06:27:00 Temi Holloway [facility] HB ECG ROUTINE & RHYTHM 2023-03-08 05:39:37 Temi Holloway [facility] LIPASE 2023-03-08 05:39:00 Temi Holloway [facility] TROPONIN I 2023-03-08 05:39:00 Temi Holloway [facility] THYROID STIMULATING 2023-03-08 05:39:00 Starla Tafoya [facility] HORMONE [facility] Branch COMP. METABOLIC PANEL 2023-03-08 05:39:00 Temi Holloway [facility] ([id number]) Medical Branch LIPID PANEL 2023-03-08 05:39:00 Starla Tafoya [facility] ([id number])(TOTAL Medical Branch CHOLESTEROL, TRIGLYCERIDES, HDL) CBC WITH DIFF 2023-03-08 05:39:00 Temi Holloway [facility] GLYCOSYLATED HEMOGLOBIN 2023-03-08 05:39:00 Starla Tafoya [facility] (A1C) Medical Branch Encounters Start End Encounter Admission Attending Care Care Encounter Source Date/Time Date/Time Type Type Clinicians Facility Department ID 2021-10-27 Outpatient Donis, STLMLC [facility] [id number] Common 12:15:25 Kapil [id number] [facility] 2021-10-27 Outpatient [facility] [id number] Common 12:07:45 [id number] [facility] 2023-03-10 2023-03-10 Transition CHRISTOPHER Alcocer [id number] Univers 00:00:00 00:00:00 of Care Jose WHITE 350.1.13.10 ity of CHRIS 4.2.7.2.686 [facility] [id number] [facility] 403 Branch 2023-03-08 2023-03-09 Emergency Romel Montez [facility] 1.2. [id number] Univers 00:29:00 19:46:00 Starla Tafoya 350.1.13.10 ity of Kel Yin 4.2.7.2.686 [facility] [id number] [facility] 081 Branch 2023-03-08 2023-03-09 Outpatient Inocente YIN WVROBERTO LEONEL [id number] Univers 00:29:00 19:46:00 KEL [facility] 2022-05-31 2022-05-31 Outpatient SPEEDY Dial [facility] [id number] [facility] 08:52:00 08:52:00 Brissa Reyes [facility] 2022-05-11 2022-05-11 Outpatient MAGDALENE Valadez, SPEEDY [facility] [id number] [facility] 10:11:00 10:11:00 Chad 67 [facility] 2022-05-11 2022-05-11 Outpatient SPEEDY RaeCL [id number] [facility] 10:11:00 10:11:00 Chad [id number] [facility] 2020-12-03 2020-12-03 OFFICE STLMLC STLMLC [id number] Co mmon 00:00:00 00:00:00 VISIT Spirit ESTAB PT - CHI LEVEL 2 [facility] 2020-08-24 2020-08-24 OFFICE STLMLC STLMLC [id number] Co mmon 00:00:00 00:00:00 VISIT VISHNU Borges it PT LEVEL 4 - [facility] Results Test Description Test Time Test Comments Results Result Comments Source POCT GLUCOSE (AUTOMATED) 2023-03-09 21:35:08 Test Item Value Reference Range Interpretation Comme nts POCT GLU (test code = 8213432778) 149 mg/dL 70-110 H Lab Interpretation (test code = 17796-6) Abnormal [facility] GLUCOSE (AUTOMATED)2023-03-09 16:43:52 Test Item Value Reference Range Interpretation Comments POCT GLU (test code = 3303576928) 138 mg/dL 70-110 H Lab Interpretation (test code = Abnormal 70711-4) [facility] GLUCOSE (AUTOMATED)2023-03-09 12:55:44 Test Item Value Reference Range Interpretation Comments POCT GLU (test code = 5506524314) 126 mg/dL 70-110 H Lab Interpretation (test code = Abnormal 75436-3) [facility] GLUCOSE (AUTOMATED)2023-03-09 02:09:42 Test Item Value Reference Range Interpretation Comments POCT GLU (test code = 9596191398) 115 mg/dL 70-110 H Lab Interpretation (test code = Abnormal 06957-4) [facility] GLUCOSE (AUTOMATED)2023-03-08 21:32:42 Test Item Value Reference Range Interpretation Comments POCT GLU (test code = 1151802305) 266 mg/dL 70-110 H Lab Interpretation (test code = Abnormal 84639-4) [facility] GLUCOSE (AUTOMATED)2023-03-08 16:26:44 Test Item Value Reference Range Interpretation Comments POCT GLU (test code = 3602928618) 195 mg/dL 70-110 H Lab Interpretation (test code = Abnormal 02164-0) [facility] GLUCOSE (AUTOMATED)2023-03-08 12:40:58 Test Item Value Reference Range Interpretation Comments POCT GLU (test code = 0014067757) 179 mg/dL 70-110 H Lab Interpretation (test code = Abnormal 40795-7) [facility] (TSH)2023-03-08 11:56:52 Test Item Value Reference Range Interpretation Comments TSH (test code = 5.09 See_Comment H Biotin has been 9376607584) reported to cau se a negative bias, interpret resul ts relative to vinh tee's use of biotin. [Automated mess age] The system [employer] generated this result transmitted ref erence range: 0.45 - 4 .70 mIU/L. The refe rence range was not u sed to interpret this result as normal/abnor mal. Lab Interpretation (test Abnormal code = 82715-4) [facility] Hemoglobin (A1C)2023-03-08 11:27:39 Test Item Value Reference Range Interpretation Comments HGB A1C (test code = 9.3 % 4.0-5.7 H 4548-4) TRINIDAD (test code = TRINIDAD) Reference RangesNormal: <5.7%Prediabetes: 5.7 - 6.4%Diabetes: > 6.5% Lab Interpretation (test Abnormal code = 30334-6) [facility] Center[facility] (Total Cholesterol, Triglycerides, HDL)2023-03-08 11:14:15 Test Item Value Reference Range Interpretation Comments CHOL (test code = 2464962154) 166 mg/dL 120-200 HDL (test code = 4915576202) 51 mg/dL >=40 HDLC RATIO (test code = 8052635081) 3.3 <=5.0 TRIG (test code = 8865427768) 83 mg/dL 30-170 LDL CHOL (test code = 45652-4) 98 mg/dL <=160 VLDL (test code = 8596175975) 17 mg/dL 5-60 Lab Interpretation (test code = Normal 58834-8) [facility] [id number] 06:21:21 Test Item Value Reference Range Interpretation Comments TROPONIN I (test code = 0.075 ng/mL <=0.034 H 1057204064) TRINIDAD (test code = TRINIDAD) Reference (Normal) [...] biotin. Lab Interpretation Abnormal (test code = 14206-2) [facility]OLIC PANEL (52481)2023-03-08 06:10:20 Test Item Value Reference Range Interpretation Comments NA (test code = 135 mmol/L 135-145 4835848760) K (test code = 4.3 mmol/L 3.5-5.0 5641612687) CL (test code = 104 mmol/L 98-108 4180364646) CO2 TOTAL (test code = 26 mmol/L 23-31 7347505746) AGAP (test code = 5 2-16 5675188595) BUN (test code = 27 mg/dL 7-23 H 6203328692) GLUCOSE (test code = 243 mg/dL 70-110 H 9040507965) CREATININE (test code = 2.15 mg/dL 0.60-1.25 H 2663882181) TOTAL BILI (test code = 0.8 mg/dL 0.1-1.3 8300405726) CALCIUM (test code = 8.2 mg/dL 8.6-10.6 L 1187732406) T PROTEIN (test code = 6.0 g/dL 6.3-8.2 L 5545435851) ALBUMIN (test code = 2.5 g/dL 3.5-5.0 L 7556987780) ALK PHOS (test code = 60 U/L 34-122 0945805204) ALTv (test code = 17 U/L 5-50 1742-6) AST(SGOT) (test code = 26 U/L 13-40 2627017934) eGFR (test code = 30.1 mL/min/1.73m2 0613243423) TRINIDAD (test code = TRINIDAD) Association of [...] tests). Lab Interpretation Abnormal (test code = 85337-3) [facility] CenterLIP[facility], [id number] 06:09:44 Test Item Value Reference Range Interpretation Comments LIPASE (test code = 5391310573) 101 U/L 0-220 Lab Interpretation (test code = Normal 72146-1) [facility] CenterCB WITH [id number] 05:51:59 Test Item Value Reference Range Interpretation Comments WBC (test code = 5.65 See_Comment [Automated 8703-2) message] The sy stem which generated this [...] (test code = 56.7 fL 38.5-51.6 H 67242-5) RDW-CV (test code = 19.4 % 12.1-15.4 H 788-0) PLT (test code = 232 See_Comment [Automated 777-3) message] The sy stem which generated this result transmitted reference range : 150 - 328 10*3/ ?L. The reference r michael was not used to interpret this result as normal/abnormal . MPV (test code = 10.5 fL 9.8-13.0 95745-2) NRBC/100 WBC (test 0.0 See_Comment [Automat ed code = 4327859811) message] The system which generated this result transmitted reference range : 0.0 - 10.0 /100 WBCs. The refer ence range was not u sed to interpret th is result as normal/abnormal . NRBC x10^3 (test code See_Comment [Auto mated = 3666018189) message] The s ystem which generated this result transmitted reference range : 10*3/?L. The reference range was not used to interpret this result as normal/abnormal . GRAN MAT (NEUT) % 68.1 % (test code = 770-8) IMM GRAN % (test code 0.20 % = 6232497439) LYMPH % (test code = 20.0 % 736-9) MONO % (test code = 9.2 % 5905-5) EOS % (test code = 1.6 % 713-8) BASO % (test code = 0.9 % 706-2) GRAN MAT x10^3(ANC) 3.85 10*3/uL 1.99-6.95 (test code = 5053552882) IMM GRAN x10^3 (test 0.00-0.06 code = 6667669726) LYMPH x10^3 (test code 1.13 10*3/uL 1.09-3.23 = 731-0) MONO x10^3 (test code 0.52 10*3/uL 0.36-1.02 = 742-7) EOS x10^3 (test code = 0.09 10*3/uL 0.06-0.53 711-2) BASO x10^3 (test code 0.05 10*3/uL 0.01-0.09 = 704-7) Lab Interpretation Abnormal (test code = 87687-3) [facility] CenterCOVID [facility] Asymptomatic IH [id number] 10:17:00 Test Item Value Reference Range Interpretation [...] y tests. - CTA HEART W CN ART/[id number] 00:00:00 [facility] DAGMAR GONSALESName: ALBERT MARQUEZ : 1950 Sex: M Name: ALBERT MARQUEZ [facility] Dagmar Gonsales : 1950 Age/S: 72 / M [address] [place] [address] Blvd Unit #: [id number] Loc: [facility] AMRCEL [address] Phys: Brissa Reinoso Acct: [id number] Dis Date: Status: REG CLI PHONE #: [phone] Exam Date: 05/31/2022 1012 FAX #: [phone] Reason: EXAMS: CPT CODE: [id number] CTA HEART W CN ART/GRAFTS 26852 PROCEDURE INFORMATION: Exam: CTA Heart And Coronary Arteries With Contrast Exam date and time: 05/31/2022 10:09 AM Age: 72 years old Clinical indication: Other: Aortic stenosis TECHNIQUE: Imaging protocol: CT angiography of the heart, coronary arteries, and bypass grafts(when present) with contrast including 3D image postprocessing. [...] 1 Signed Report (CONTINUED) Name: ALBERT MARQUEZ [facility] : 1950 Age/S: 72 / M [address] [place] [address] Blvd Unit #: [id number] Loc: [place] [address] Phys: Brissa Reinoso [facility] Acct: [id number] Dis Date: Status: REG CLI PHONE #: [phone] Exam Date: 05/31/2022 1012 FAX #: [phone] Reason: EXAMS: CPT CODE: [id number] CTA HEART W CN ART/GRAFTS 03561 (Continued) mitral annular calcification. PERICARDIUM: No evidence [...] of the underdistended bladder. Prostate gland and seminalvesicles within normal limits. BONES AND SOFT TISSUES: There are no bony lytic or blastic lesions. PAGE 2 Signed Report (CONTINUED) Name: ALBERT MARQUEZ [facility] : 1950 Age/S: 72 / M [address] [place] [address] Unit #: [id number] Loc: [place] [address] Phys: Brissa Reinoso [employer]IE [employer] TECHNICIAN Acct: [id number] Dis Date: Status: REG CLI PHONE #: [phone] Exam Date: 05/31/2022 1012 FAX #: [phone] Reason: EXAMS: CPT CODE: [id number] CTA HEART W CN ART/GRAFTS 34672 (Continued) Small uncomplicatedfat containing umbilical hernia. IMPRESSION: Mild atherosclerosis of the abdominal aorta which is widely patent with a minimal luminal diameter of 18 x 17 mm in the infrarenal segment. Moderate atheros clerosis of the bilateral iliofemoral branches. The bilateral common iliac, external iliac and common femoral arteries are patent, measuring 6 mm or greater. Mild wall thickening of the underdistendedbladder. This could simply be the result of underdistention however a mild cystitis is not excluded. Clinical correlation and correlation with urinalysis recommended. at 1723 Reported and signed by: Wood Duran M.D. CC: Brissa BAIRD AgbaleTechnologist:Berry Hearn, RT(R)(CT) CTDI: DLP: Trnscb Date/Time: 05/31/2022 (1722) [email or web address] Orig Print D/T: S: 05/31/2022 (1722) PAGE 3 Signed Report- CTA ABD PEL W [id number] 00:00:00[facility] : 1950 Sex: M Name: ALEBRT MARQUEZ [facility] : 1950 Age/S: 72 / M [address] [place] [address] Unit #: [id number] Loc: [place] [address] Phys: Brissa Reinoso Acct: [id number] Dis Date: Status: REG CLI PHONE #: [phone] Exam Date: 05/31/2022 1012 FAX #: [phone] Reason: 135.0, SEVERE AORTIC STENOSIS. 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 EXAMS: CPT CODE: [id number] CTA ABD PEL W CONT 56874 (Continued) mitral annular calcification. PERICARDIUM: No evidence [...] unremarkable. Mild thickening of the bilateral adrenal glands,consistent with mild hyperplasia. The stomach, small bowel and colon are unremarkable. The appendix i s normal. There is no intra-abdominal or retroperitoneal adenopathy. Mild wall thickening of the underdistended bladder. Prostate gland and seminal vesicles within normal limits. BONES AND SOFT TISSUES: There are no bony lytic or blastic lesions. PAGE 2 Signed Report (CONTINUED) Name: ALBERT MARQUEZ [facility] Dagmar Gonsales : 1950 Age/S: 72 / M [address] [place] [address] Blvd Unit #: [id number] Loc: [place] [address] Phys: Brissa Reinoso Acct: [id number] Dis Date: Status: REG CLI PHONE #: [phone] Exam Date: 05/31/2022 1012 FAX #: [phone] Reason: 135.0, SEVERE AORTIC STENOSIS. EXAMS: CPT CODE: [id number] CTA ABD PEL W CONT 52669 (Continued) Small uncomplicated fat containing umbilical hernia. IMPRESSION: Mild atherosclerosis of the abdominal aorta which is widely patent with a minimal luminal diameter of 18 x 17 mm in the infrarenal segment. Moderate atherosclerosis of the bilateral iliofemoral branches. The bilateral common iliac, external iliac and common femoral arteries are patent,measuring 6 mm or greater. Mild wall thickening of the underdistended bladder. This could simply be the result of underdistention however a mild cystitis is not excluded. Clinical correlation and correlation with urinalysis recommended. at 1723 Reported and signed by: Wood Duran M.D. CC: Brissa Reinoso Technologist:Berry Hearn RT(R)(CT) CTDI: DLP: Trnscb Date/Time: 05/31/2022 (1723) [email or web address] Orig Print D/T: S: 05/31/2022 (9351) PAGE 3 Signed Report- CT ANGIO [id number] 00:00:00[facility] DAGMAR GONSALESName: ALBERT MARQUEZ : 1950 Sex: M Name: ALBERT MARQUEZ [facility] [place] : 1950 Age/S: 72 / M [address] [place] [address] Blvd Unit #: [id number] Loc: [place] [address] Phys: Brissa Reinoso DIE CAST TECHNICIAN Acct: [id number] Dis Date: Status: REG CLI PHONE #: [phone] Exam Date: 05/31/2022 1012 FAX #: [phone] Reason: 135.0 , SEVERE AORTIC STENOSIS. EXAMS: CPT CODE: [id number] CT ANGIO CHEST 35068 PROCEDURE INFORMATION: Exam: CTA Heart And Coronary [...] 1 Signed Report (CONTINUED) Name: ALBERT MARQUEZ [facility] : 1950 Age/S: 72 / M [address] [place] [address] Blvd Unit #: [id number] Loc: [place] [address] Phys: Liu Reinosofayjill [facility] Acct: [id number] Dis Date: Status: REG CLI PHONE #: [phone] Exam Date: 05/31/2022 1012 FAX #: [phone] Reason: 135.0 , SEVERE AORTIC STENOSIS. EXAMS: CPT CODE: [id number] CT ANGIO CHEST 05294 (Continued) mitral annular calcification. PERICARDIUM: No evidence [...] mild ground-glass changes consistent with mild edema. BONESAND SOFT TISSUES: There are no bony lytic [...] There is mild atherosclerosis involving the abdominal aortaand moderate atherosclerosis involving the iliofemoral branches. The celiac artery, superior mesenteric artery, and inferior mesenteric artery are patent. There is 1 right and 1 left renal arteries. MINIMAL LUMINAL DIAMETERS OF ABDOMINAL AORTA AND BRANCHES: The minimal luminal diameter of the aorta is18 x 17 mm in the infrarenal segment. [...] 2 Signed Report (CONTINUED) Name: ALBERT MARQUEZ [facility] : 1950 Age/S: 72 / M [address] [place] [address] Blvd Unit #: [id number] Loc: [place] Phys: Brissa Reinoso Acct: [id number] Dis Date: Status: REG CLI PHONE #: [phone] Exam Date: 05/31/2022 1012 FAX #: [phone] Reason: 135.0 , SEVERE AORTIC STENOSIS. EXAMS: CPT CODE: [id number] CT ANGIO CHEST 76215 (Continued) Small uncomplicated fat containing umbilical hernia. 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 CBC W/AUTO [id number] 16:09:00 Test Item Value Reference Range Interpretation [...] Notes Date/Time Note Provider Source 2022-06-02 08:57:00-00:00 [id number] [place] [address] patient name: albert marquez admit date: 05/31/22 account no: [id number] room no: age: 72 report type: pulmonary [...] dd: 06/02/2022 08:57:29 dt: 06/02/2022 09:52:31 conf#: [id number]/did#: [id number] authenticated by dorothy baer md on 06/06/2022 08:17:48 am electronically signed by dorothy baer md on 02/20 at 0817 patient name: albert marquez 147 2022-05-11 15:06:00-00:00 [facility] ([facility]) clinical note report#:[id number] report status: signed date:05/11/22 time: 1506 patient: albert marquez unit #: [id number] room/bed: : 48 age: 72 sex: m attend: fazal valadez md adm dt: 05/11/22 author: ian coates p * all edits or amendments must be made on the [employer] document * clinical note note: 72-year-old -cymro male with past [facility] history of hypertension, hyperlipidemia, diabetes (on insulin), [...] molina md on 05/24/22 at 0953 rpt #:[id number] end of report 2022-05-11 15:06:00-00:00 [facility] Clinical [facility] REPORT#:[id number] REPORT STATUS: Signed DATE:05/11/22 TIME: 1506 PATIENT: ALBERT MARQUEZ UNIT #: [id number] ROOM/BED: : 48 AGE: 72 SEX: M ATTEND: Pillo Valadez MD ADM AUTHOR: Ian Coates P * ALL edits or amendments must be made on the [employer] document * Clinical Note Note: 72-year-old -[place] male with past [facility] history of hypertension, hyperlipidemia, diabetes (on insulin), CAD statu s post PCI/stenting, atrial fibrillation, who has been experiencing worsenin g shortness of breath and dizziness. He has been admit arelis to the hospital today for CHRIS and found to have severe aortic stenosis. I am making arrangements for Mr. Marquez to see Dr Molina in clinic next week as Dr Molina is in the OR and patient does not want to wait. at 1522 RPT #:[id number] END OF REPORT"
--- NOTE | 2023-05-06 12:38 | RAD REPORT ---
EXAM DESCRIPTION: CT - Head Brain Wo Cont - 05/06/2023 12:20 pm CLINICAL HISTORY: CONFUSED Headache, drowsiness COMPARISON: <Comparisons> TECHNIQUE: All CT scans are performed using dose optimization technique as appropriate and may inclu de automated exposure control or mA/KV adjustment according to patient size. FINDINGS: No intracranial hemorrhage, hydrocephalus or extra-axial fluid collection.Moderate general ized brain atrophy is present with moderate periventricular and deep white matter chronic microvascul ar ischemic changes.No areas of brain edema or evidence of midline shift. The paranasal sinuses and mastoids are essentially clear. The calvarium is intact. IMPRESSION: No acute intracranial abnormality.
--- NOTE | 2023-05-06 12:44 | RAD REPORT ---
EXAM DESCRIPTION: RAD - Chest Single View - 05/06/2023 12:36 pm CLINICAL HISTORY: SOB Chest pain. COMPARISON: <Comparisons> FINDINGS: Portable technique limits examination quality. Mild pulmonary edema suspected. The heart is mildly enlarged. No displaced fractures. IMPRESSION: Mild CHF.
[2023-05-06 13:00] LABS: Absolute Lymphocytes (CBC) 1.1 K/uL (0.7-4.9); Hematocrit 47.1 % (39.6-49.0); Lymphocytes % 19.4 % (15.3-44.8); MCV 84.2 fL (80-100); MPV 8.2 fL (7.6-11.3); RBC Red Blood Cell Count 5.59 M/uL (4.33-5.43)
[2023-05-06 13:06] LABS: Protime INR 1.05
[2023-05-06 13:18] LABS: Albumin 2.9 g/dL (3.4-5.0); Bilirubin Direct 0.1 mg/dL (0-0.2); Bilirubin Indirect, Calculated 0.3 mg/dL (0.2-0.8); Bilirubin Total 0.4 mg/dL (0.2-1.0); Magnesium 1.9 mg/dL (1.6-2.4); Potassium 4.4 mEq/L (3.5-5.1); Protein, Total 8.4 g/dL (6.4-8.2); Troponin High Sensitivity 45.4 pg/mL (<58.9)
--- NOTE | 2023-05-06 13:28 | EDPHYS ---
Physician Documentation [facility] Name: Julianna Kearns Age: 73 yrs Sex: Male : 1950 Arrival Date: 05/06/2023 Time: 11:50 Bed 6 Private MD: ED Physician Braulio Ritchie HPI: 05/06 13:32 This 73 yrs old Black Male presents to ER via EMS with complaints of Blood Pressure cp3 Problem. 13:16 The patient is a 73-year-old male with a history of A-fib, diabetes, cp3 hypercholesterolemia, hypertension, lymphedema, chronic lower extremity wounds who presents to the ED after becoming confused while sitting out on the patio for an hour or so. The patient endorses he did take his blood pressure medicine between 7 AM and 10 AM. The patient's noted the patient to be a little bit disoriented. The patient endorses he was outside for less than 1 hour and feels back to baseline. The patient denies fever, chills, nausea, vomiting, chest pain, shortness of breath.. Historical: - Allergies: 11:55 PENICILLINS; aa5 - Home Meds: 12:26 atorvastatin 40 mg Oral tablet once [Active]; ferrous sulfate 325 mg (65 mg iron) Oral aa5 tablet once [Active]; benzonatate 100 mg oral capsule [Active]; metformin 1,000 mg Oral Tablet, ER Gastric Retention 24 hr every evening [Active]; isosorbide dinitrate 20 mg Oral tablet 3 times per day [Active]; furosemide 40 mg Oral tablet 2 times per day [Active]; hydralazine 100 mg Oral tablet [Active]; carvedilol 25 mg oral tablet [Active]; Aspirin Oral [Active]; - PMHx: 11:55 Atrial Fib; Diabetes - NIDDM; Hypercholesterolemia; Hypertension; CHF; aa5 - PSHx: 11:55 Cardiac stent; aa5 - Immunization history:: Adult Immunizations unknown. - Social history:: Smoking status: Patient denies any tobacco usage or history of. - Family history:: not pertinent. ROS: 13:20 Constitutional: Negative for fever, chills, and weight loss, Eyes: Negative for injury, cp3 pain, redness, and discharge, ENT: Negative for injury, pain, and discharge, Neck: Negative for injury, pain, and swelling, Cardiovascular: Negative for chest pain, palpitations, and edema, Respiratory: Negative for shortness of breath, cough, wheezing, and pleuritic chest pain, Abdomen/GI: Negative for abdominal pain, nausea, vomiting, diarrhea, and constipation, Back: Negative for injury and pain, : Negative for injury, bleeding, discharge, and swelling, MS/Extremity: Negative for injury and deformity. 13:20 Neuro: Negative for headache, weakness, numbness, tingling, and seizure, Psych: Negative for depression, anxiety, suicide ideation, homicidal ideation, and hallucinations, Allergy/Immunology: Negative for hives, rash, and allergies, Endocrine: Negative for neck swelling, polydipsia, polyuria, polyphagia, and marked weight changes, Hematologic/Lymphatic: Negative for swollen nodes, abnormal bleeding, and unusual bruising. 13:20 Skin: Positive for Chronic lower extremity wounds that are at baseline per patient. Exam: 13:20 Constitutional: This is a well developed, well nourished patient who is awake, alert, cp3 and in no acute distress. Head/Face: Normocephalic, atraumatic. Eyes: Pupils equal round and reactive to light, extra-ocular motions intact. Lids and lashes normal. Conjunctiva and sclera are non-icteric and not injected. Cornea within normal limits. Periorbital areas with no swelling, redness, or edema. ENT: Nares patent. No nasal discharge, no septal abnormalities noted. Tympanic membranes are normal and external auditory canals are clear. Oropharynx with no redness, swelling, or masses, exudates, or evidence of obstruction, uvula midline. Mucous membranes moist. Neck: Trachea midline, no thyromegaly or masses palpated, and no cervical lymphadenopathy. Supple, full range of motion without nuchal rigidity, or vertebral point tenderness. No Meningismus. Chest/axilla: Normal chest wall appearance and motion. Nontender with no deformity. No lesions are appreciated. Cardiovascular: Regular rate and rhythm with a normal S1 and S2. No gallops, murmurs, or rubs. Normal PMI, no JVD. No pulse deficits. Respiratory: Lungs have equal breath sounds bilaterally, clear to auscultation and percussion. No rales, rhonchi or wheezes noted. No increased work of breathing, no retractions or nasal flaring. Abdomen/GI: Soft, non-tender, with normal bowel sounds. No distension or tympany. No guarding or rebound. No evidence of tenderness throughout. Back: No spinal tenderness. No costovertebral tenderness. Full range of motion. 13:20 MS/ Extremity: Pulses equal, no cyanosis. Neurovascular intact. Full, normal range of motion. Neuro: Awake and alert, GCS 15, oriented to person, place, time, and situation. Cranial nerves II-XII grossly intact. Motor strength 5/5 in all extremities. Sensory grossly intact. Cerebellar exam normal. Normal gait. Psych: Awake, alert, with orientation to person, place and time. Behavior, mood, and affect are within normal limits. 13:20 Skin: Patient with chronic venous stasis to bilateral lower extremities with 2+ edema. Patient endorses the skin excoriations on bilateral anterior lower extremities are at baseline. No evidence of acute cellulitis, erythema, redness, abscess. Distal pulses intact and limbs warm cap refill less than 2. Vital Signs: 11:50 BP 126 / 64; Pulse 67; Resp 18 S; Temp 98.3(O); Pulse Ox 97% on R/A; Weight 86.64 kg aa5 (M); 12:53 BP 126 / 62; Pulse 70; Resp 14 S; Pulse Ox 97% on R/A; Pain 0/10; aa5 14:00 BP 155 / 84; Pulse 72; Resp 18 S; Pulse Ox 99% on R/A; aa5 15:00 BP 158 / 67; Pulse 72; Resp 18 S; Pulse Ox 98% on R/A; aa5 12:53 Pain Scale: Adult aa5 MDM: 12:38 Patient medically screened. cp3 13:20 Differential Diagnosis altered mental status, The differential diagnosis includes cp3 syncope, vasovagal sympathy syncope, dehydration, acute coronary syndrome, NSTEMI, electrolyte abnormality, infection. Data reviewed: vital signs, nurses notes, EMS record, EKG, radiologic studies. Consideration of Admission/Observation Escalation of care including admission/observation considered. Hospitalization considered. Patient with resolution and hypotension since arrival in the ED and is without complaint at this time and feels back to baseline.. Independent interpretation of the following test(s) in the Emergency Department X-Ray: My interpretation is Chest x-ray interpreted by me-mild interstitial edema otherwise negative. Historians other than the Patient: EMS: Advised patient on patio and given 250 cc of normal saline with resolution of hypotension. External Records Reviewed: PDMP reviewed. Care significantly affected by the following chronic conditions: Diabetes, Hypertension, A-fib. Special discussion: I have referred the patient to see his PCP for further evaluation of high blood pressure. I discussed with the patient/guardian in detail that at this point there is no indication for admission to the hospital. It is understood, however, that if the symptoms persist or worsen the patient needs to return immediately for re-evaluation. ED course: EKG interpreted by me: At 12:06 PM patient with normal sinus rhythm, left axis deviation, QT of 500 QTc of 524 she will need to be monitored. 13:30 ED course: External records reviewed: Patient with elevated BUN and creatinine with a cp3 baseline creatinine around 2-2.5 on previous lab reports. 13:31 Counseling: I had a detailed discussion with the patient and/or guardian regarding: the cp3 historical points, exam findings, and any diagnostic results supporting the discharge/admit diagnosis, lab results, radiology results, the need for outpatient follow up. 05/06 11:55 Order name: Basic Metabolic Panel; Complete Time: 13:29 cp3 05/06 11:55 Order name: CBC with Diff; Complete Time: 13:12 cp3 05/06 11:55 Order name: Hepatic Function; Complete Time: 13:29 cp3 05/06 11:55 Order name: Magnesium; Complete Time: 13:29 cp3 05/06 11:55 Order name: Protime (+inr); Complete Time: 13:29 cp3 05/06 11:55 Order name: Ptt, Activated; Complete Time: 13:29 cp3 05/06 11:55 Order name: Troponin High Sensitivity; Complete Time: 13:29 cp3 05/06 11:55 Order name: CT Head Brain wo Cont; Complete Time: 12:49 cp3 05/06 11:55 Order name: Chest Single View XRAY; Complete Time: 12:49 cp3 05/06 11:55 Order name: EKG; Complete Time: 11:56 cp3 05/06 11:55 Order name: Cardiac monitoring; Complete Time: 12:18 cp3 05/06 11:55 Order name: EKG - Nurse/Tech; Complete Time: 12:14 cp3 05/06 11:55 Order name: IV Saline Lock; Complete Time: 12:18 cp3 05/06 11:55 Order name: Labs collected and sent; Complete Time: 12:53 cp3 05/06 11:55 Order name: NPO; Complete Time: 12:18 cp3 05/06 11:55 Order name: O2 Per Protocol; Complete Time: 12:18 cp3 05/06 11:55 Order name: O2 Sat Monitoring; Complete Time: 12:18 cp3 Administered Medications: No medications were administered Disposition Summary: 05/06/23 13:28 Discharge Ordered Location: Home cp3 Condition: Stable cp3 Diagnosis - Orthostatic hypotension cp3 - Chronic systolic (congestive) heart failure cp3 Followup: cp3 - With: Private Physician - When: - Reason: If symptoms return Discharge Instructions: - Discharge Summary Sheet cp3 - Near-Syncope cp3 - Orthostatic Hypotension cp3 - Heart Failure, Self-Care cp3 Forms: - Medication Reconciliation Form cp3 - Thank You Letter cp3 - Antibiotic Education cp3 - Prescription Opioid Use cp3 - Patient Portal Instructions cp3 Signatures: Dispatcher [employer] Braulio Christie MD MD cp3 Angelita Galeana RN RN aa5 Corrections: (The following items were deleted from the chart) 14:30 11:55 Orthostatics ordered. cp3 aa5
--- NOTE | 2023-05-06 13:28 | ER ---
Nurse's Notes [facility] Name: Julianna Kearns Age: 73 yrs Sex: Male : 1950 Arrival Date: 05/06/2023 Time: 11:50 Bed 6 Private MD: Diagnosis: Orthostatic hypotension;Chronic systolic (congestive) heart failure Presentation: 05/06 11:50 Chief complaint: EMS states: received 911 from pt's for "pt not acting right", aa5 report pt has had similar episodes and cause was low blood pressure. EMS reports initial BP was 88/43, O2 sat 92% RA, O2 via 2 L NC administered and 100 cc NS bolus administered en route. 11:50 Coronavirus screen: At this time, the client does not indicate any symptoms associated aa5 with coronavirus-19. Ebola Screen: Patient denies travel to an Ebola-affected area in the 21 days before illness onset. Initial Sepsis Screen: Does the patient meet any 2 criteria? No. Patient's initial sepsis screen is negative. Does the patient have a suspected source of infection? Yes:. Risk Assessment: Do you want to hurt yourself or someone else? Patient reports no desire to harm self or others. Onset of symptoms was May 2023. 11:50 Acuity: VERONICA 3 aa5 11:50 Method Of Arrival: EMS: [facility] aa5 11:50 Care prior to arrival: IV initiated. Glucose check: 201. aa5 Historical: - Allergies: 11:55 PENICILLINS; aa5 - Home Meds: 12:26 atorvastatin 40 mg Oral tablet once [Active]; ferrous sulfate 325 mg (65 mg iron) Oral aa5 tablet once [Active]; benzonatate 100 mg oral capsule [Active]; metformin 1,000 mg Oral Tablet, ER Gastric Retention 24 hr every evening [Active]; isosorbide dinitrate 20 mg Oral tablet 3 times per day [Active]; furosemide 40 mg Oral tablet 2 times per day [Active]; hydralazine 100 mg Oral tablet [Active]; carvedilol 25 mg oral tablet [Active]; Aspirin Oral [Active]; - PMHx: 11:55 Atrial Fib; Diabetes - NIDDM; Hypercholesterolemia; Hypertension; CHF; aa5 - PSHx: 11:55 Cardiac stent; aa5 - Immunization history:: Adult Immunizations unknown. - Social history:: Smoking status: Patient denies any tobacco usage or history of. - Family history:: not pertinent. Screenin:53 [facility] ED Fall Risk Assessment (Adult) History of falling in the last 3 months, aa5 including since admission No falls in past 3 months (0 pts) Confusion or Disorientation Yes (5 pts) Intoxicated or Sedated No (0 pts) Impaired Gait No (0 pts) Mobility Assist Device Used No (0 pt) Altered Elimination No (0 pt) Score/Fall Risk Level 3 or more points = High Risk Oriented to surroundings, Maintained a safe environment, Educated pt \\T\\ family on fall prevention, incl call for assistance when getting out of bed. Abuse screen: Denies threats or abuse. Nutritional screening: No deficits noted. Tuberculosis screening: No symptoms or risk factors identified. Assessment: 11:50 General: Appears comfortable, Behavior is calm, cooperative. Pain: Denies pain. Neuro: aa5 Level of Consciousness is awake, alert, obeys commands, Oriented to person, place, situation. Cardiovascular: Heart tones S1 S2 present Rhythm is regular. Respiratory: Airway is patent Respiratory effort is even, unlabored, Respiratory pattern is regular, symmetrical, Breath sounds are diminished bilaterally. GI: Abdomen is round non-distended, Bowel sounds present X 4 quads. Abd is soft and non tender X 4 quads. : No signs and/or symptoms were reported regarding the genitourinary system. EENT: No signs and/or symptoms were reported regarding the EENT system. Derm: Skin is dry, Skin is normal, Skin temperature is warm. Musculoskeletal: multiple small open wounds noted to leena lower extremities, leena lower extremity swelling noted, pt reports is baseline. 12:30 Reassessment: Pt back from radiology. . aa5 13:00 Reassessment: Pt sleeping, equal and unlabored respirations. . aa5 14:30 Reassessment: Pt states to call his for ride home. Attempted to reach pt's aa5 via phone and left voice mail at this time. . 15:19 Reassessment: Attempted to contact pt's again, left 2nd voice mail. No other [facility] emergency contacts listed on demographics and pt does not know daughter's phone number. . 16:00 Reassessment: Pt's brother and [id number]-rxa at bedside. . aa5 16:00 Neuro: Level of Consciousness is awake, alert, obeys commands, Oriented to person, aa5 place, situation. Respiratory: Airway is patent Respiratory effort is even, unlabored, Respiratory pattern is regular, symmetrical. Derm: Skin is dry, Skin is normal, Skin temperature is warm. Vital Signs: 11:50 BP 126 / 64; Pulse 67; Resp 18 S; Temp 98.3(O); Pulse Ox 97% on R/A; Weight 86.64 kg aa5 (M); 12:53 BP 126 / 62; Pulse 70; Resp 14 S; Pulse Ox 97% on R/A; Pain 0/10; aa5 14:00 BP 155 / 84; Pulse 72; Resp 18 S; Pulse Ox 99% on R/A; aa5 15:00 BP 158 / 67; Pulse 72; Resp 18 S; Pulse Ox 98% on R/A; aa5 12:53 Pain Scale: Adult aa5 ED Course: 11:50 Arm band placed on. aa5 11:53 Patient arrived in ED. eb 11:54 Braulio Ritchie MD is Attending Physician. cp3 11:54 Angelita Galeana, ERICA is Primary Nurse. aa5 11:59 Triage completed. aa5 12:14 Patient has correct armband on for positive identification. Placed in gown. Bed in low mm9 position. Call light in reach. Side rails up X2. Warm blanket given. Client placed on continuous cardiac and pulse oximetry monitoring. NIBP monitoring applied. pvc monitor on. Pulse ox on. NIBP on. 12:14 EKG done, by ED staff, reviewed by Braulio Ritchie MD. mm9 12:22 CT Head Brain wo Cont In Process Unspecified. EDMS 12:38 Chest Single View XRAY In Process Unspecified. EDMS 12:45 Initial lab(s) drawn, by me, sent to lab. aa5 16:00 IV discontinued, intact, bleeding controlled, No redness/swelling at site. Pressure aa5 dressing applied. 16:00 No provider procedures requiring assistance completed. aa5 Administered Medications: No medications were administered Medication: 16:00 VIS not applicable for this client. aa5 Outcome: 13:28 Discharge ordered by . cp3 16:00 Discharged to home via wheelchair, with family. aa5 16:00 Condition: stable 16:00 Discharge instructions given to patient, family, Instructed on discharge instructions, follow up and referral plans. Demonstrated understanding of instructions, follow-up care. 16:16 Patient left the ED. aa5 Signatures: Dispatcher [employer] Braulio Christie MD MD cp3 Angelita Galeana RN RN aa5 Brandy Marinelli Maria mm9 Corrections: (The following items were deleted from the chart) 12:00 11:50 BP 126 / 64; Pulse 67bpm; Resp 18bpm; Spontaneous; Pulse Ox 97% RA; Temp 98.3F aa5 Oral; aa5 14:09 11:50 Respiratory: Airway is patent Respiratory effort is even, unlabored, Respiratory aa5 pattern is regular, symmetrical, Breath sounds are clear bilaterally. aa5 15:34 15:19 Reassessment: Attempted to contact pt's again, left 2nd voice mail. No other aa5 emergency contacts listed on demographics and pt does not know daughter's phone number. . aa5
[2023-05-06 16:20] VITALS: TEMP 98.3
[2023-05-06 16:24] VITALS: BP 158/67; O2SAT 98
--- NOTE | 2023-05-08 13:06 | EKG ---
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
== END 2023-05-06 16:16 | disposition home or self-care (01) ==
LOC: ER 11:50
DX: I95.1 Orthostatic hypotension (principal); I50.22 Chronic systolic (congestive) heart failure; I48.91 Unspecified atrial fibrillation; E11.9 Type 2 diabetes mellitus without complications; I10 Essential (primary) hypertension; Z95.818 Presence of other cardiac implants and grafts; Z79.82 Long term (current) use of aspirin; Z88.0 Allergy status to penicillin
CPT/HCPCS: 36415; 70450; 71045; 80048; 80076; 83735; 84484; 85025; 85610; 85730; 93005; 99284

== ENCOUNTER 2023-07-08 11:46 | Emergency (ER) | payer OTHER ==
--- OUTSIDE RECORDS SUMMARY | 2023-07-08 11:49 | XMS REPORT | Continuity of Care Document ---
:1950 Author Organization [facility] t Address [address] [place] [id number] Care Team Providers Name Role Phone KAPIL DONIS Primary Care Physician Unavailable Kapil Donis Attending Clinician Unavailable Carlyn RN, Jose Lazo Attending Clinician Unavailable Romel Yu Attending Clinician Starla Tafoya MD Attending Clinician Kel Yin MD Attending Clinician KEL YIN Attending Clinician Unavailable Jose Reinoso Attending Clinician Unavailable Chad Alvarez Attending Clinician Unavailable Starla Tafoya MD Admitting Clinician STARLA TAFOYA Admitting Clinician Unavailable Physician, No Primary or Family Admitting Clinician Unavaila ble Payers Payer Name Policy Type Policy Number Effective Date Expiration Date S ource UNITED [id number] [facility] Problems Condition Condition Condition Status [...] 00:00: [place] involving involving 00 Medi [place]ael [place] [facility] 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 [...] diabetes 03-08 ity of mellitus mellitus 00:00: [place] with other with other 00 Me dical specified specified Bran ch complicati complicati on on Elevated Elevated Disease Active Unive rs troponin I troponin I 607 it y of level level 00:00: [place] [facility] Angina of Angina of Disease Active Uni vers effort effort 5-19 ity of 00:00: [place] 00 Medical Branch [id number] 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 - [facility]I n) of [facility] [id number] Prostate Problem Active Com mon nodule Spirit - [facility] [id number] Urge Problem Active Common incontinen Spirit ce - [facility] [id number] Lower Problem Active Common urinary Spirit tract - CHI symptoms St (LUTS) [facility] Allergies, Adverse Reactions, Alerts Allergy Allergy Status Severity Reaction(s) Onset Inactive Treating Comm ents Source Name Type Date Date Clinician Penicill DA Active SV HIVES [facility] ins 8-05 Clear 00:00: [address] Penicill Propensi Active Rash 2016-0 Univer [...] History SDOH Social Unive rsity of Connections [facility] Med ical Together Branch History SDOH Social Unive rsity of Connections [facility] [place] [facility] History SDOH Social Unive rsity of Connections [place] [facility] Membership Branch History SDOH Social Unive rsity of Connections [place] [facility] Meetings Branch Tobacco use and 2023-03-08 2023-03-08 Smokeless Universit y of exposure 00:00:00 00:00:00 tobacco non-user [facility] dical Branch Alcohol intake 2023-03-08 2023-03-08 [...] University o f Transport Non-Med 00:00:00 00:00:00 [place] M edical Branch History SDOH 2023-03-08 2023-03-08 2 University o f Housing Unable to 00:00:00 00:00:00 [place] M edical Pay Branch History SDOH 2023-03-08 2023-03-08 1 University o f Housing Places 00:00:00 00:00:00 [facility] rafael Lived Branch History SDOH 2023-03-08 2023-03-08 2 University o f Housing Homeless 00:00:00 00:00:00 [facility] dical Last Year Branch Tobacco Comment 2023-03-08 2023-03-08 quit smoking 20 Univ ersity of 00:00:00 00:00:00 yrs ago [facility] Sex Assigned At [birth year] Universit y of 00:00:00 00:00:00 [facility] Smoking Status Start Date Stop Date Source Ex-smoker 2023-03-08 00:00:00 2023-03-08 00:00:00 Universi ty of [facility] Medications Ordered Filled Start Stop Current Ordering Indication Dosage Frequency Signature Comments Components Source Medication Medication Date Date Medication? Clinician (SIG) Name Name insulin Yes [id number] 15U inject 15 U nivers glargine 6-09 Units ity of 100 unit/mL 00:00: [place] injection 00 skin in [facility] morning. insulin Yes [id number] 15U inject 15 U nivers glargine 6-09 Units ity of 100 unit/mL 00:00: [place] injection 00 skin in [facility] morning. amLODIPine 2022- No [id number] 10mg Take 1 Univers 10 mg 03-1010 tablet by ity of tablet 00:00: 04:59 mouth in [place] 00 :00 the [facility] Branch for 30 days. metoprolol 2022- No [id number] 50mg Take 1 Univers succinate 03-1010 tablet by ity of XL 50 mg 24 00:00: 04:59 [place] hr tablet 00 :00 the [facility] Branch for 30 days. amLODIPine 2022- No [id number] 10mg Take 1 Univers 10 mg 03-10-10 tablet by ity of tablet 00:00: 04:59 mouth in [place] 00 :00 the Medical morning Branch for 30 days. metoprolol 2022- No [id number] 50mg Take 1 Univers succinate 03-10-10 tablet [...] tablet 42 :00 bedtime. Medical Branch metoprolol 2022- No 50mg Take 50 mg Univers succinate 03-09-08 by mouth ity o f XL (TOPROL 15:36: 00:00 daily. [place] XL) 50 mg 42 :00 Medical 24 hr Branch tablet hydrochloro 2022- No 25mg Take 25 mg Univers thiazide 03-09 by mouth ity of (ESIDRIX) 15:36: 00:00 daily. [place] 25 mg 42 :00 Medical tablet Branch canaglifloz 2022- No Take by Un tono in 03-09 mouth. ity of (INVOKANA) 15:36: 00:00 [place] 300 mg 42 :00 Medical tablet Branch metFORMIN 2022- No 1000mg Take 1,000 Univers (GLUCOPHAGE 03-09 mg by ity of ) 1,000 mg 15:36: 00:00 mouth 2 [place] tablet 42 :00 (two) Medical times [place] daily with meals. Amlodipine- 2022- No Take by Un tono Olmesartan 03-09 mouth. ity of (SKYLAR) 15:36: 00:00 [place] 10-40 mg 42 :00 Medical per tablet Branch INSULIN 2022- No inject Univers DETEMIR 03-09 under the ity of (LEVEMIR 15:36: 00:00 skin. [place] FLEXTOUCH 42 :00 Medical SC) Branch aspirin 81 2022- No 81mg Take 81 mg Univers mg EC 03-09 by mouth ity of tablet 15:36: 00:00 daily. [place] 42 :00 Medical Branch rosuvastati Yes 10mg 10 mg, Univ ers n (CRESTOR) 03-09 Oral, QHS, it y of tablet 10 02:00: [place] mg 00 on Mon03/08/23 at Branch 2100, Until Discontinu ed, Routine aspirin 81 2022- No [id number] 81mg Take 1 Univers mg EC 03-09 tablet by ity of tablet 00:00: 04:59 mouth in [place] 00 :00 the Medical morning Branch for 30 days. hydroCHLORO 2022- No [id number] 25mg Take 1 Univers thiazide 25 03-09 tablet by it y of mg tablet 00:00: 04:59 mouth in [place] 00 :00 the Medical morning Branch for 30 days. metFORMIN 2022- No [id number] 1000mg Take 1 Univers 1,000 mg 03-09 tablet by ity o f tablet 00:00: 04:59 mouth in [place] 00 :00 the Medical morning Branch and 1 tablet in the evening. Take with meals. Do all this for 30 days. rosuvastati 2022- No [id number] 10mg Take 1 Univers n 10 mg 03-09 tablet by ity of tablet 00:00: 04:59 mouth at [place] 00 :00 bedtime Medical for 30 Branch days. aspirin 81 2022- No [id number] 81mg Take 1 Univers mg EC 03-09 tablet by ity of tablet 00:00: 04:59 mouth in [place] 00 :00 the Medical morning Branch for 30 days. hydroCHLORO 2022- No [id number] 25mg Take 1 Univers thiazide 25 03-09 tablet by it y of mg tablet 00:00: 04:59 mouth in [place] 00 :00 the Medical morning Branch for 30 days. metFORMIN 2022- No [id number] 1000mg Take 1 Univers 1,000 mg 03-09 tablet by ity o f tablet 00:00: 04:59 mouth in [place] 00 :00 the Medical morning Branch and 1 tablet in the evening. Take with meals. Do all this for 30 days. rosuvastati 2022- No [id number] 10mg Take 1 Univers n 10 mg 03-09 tablet by ity of tablet 00:00: 04:59 mouth at [place] 00 :00 bedtime Medical for 30 Branch days. sulfur 2022- No [id number] 5mL 5 mL, Unive rs hexafluorid 03-08 Intravenou i ty of e microsphr 15:45: 15:45 s, ONCE, 1 [place] (LUMASON) 00 :00 dose, On Medica l injection 5 Mon03/08/23 Br anch mL at 1045, Routine
vulcan crewmember approving Restricted medication : RONALD AVILA Saline Yes [id number] 6mL 6 mL, Univer s Bubble 03-08 Injection, ity of Study 15:41: SEE-INSTRU [place] 23 CTIONS, Medical Starting Branch on Mon03/08/23 [...] Oral, ity of XL (TOPROL 14:15: DAILY, [place] XL) tablet 00 First dose Med ical [...] swallow or has mental status changes. ondansetron 0 Yes 4mg 4 mg, Slow Univers (ZOFRAN 03-08 IV Push, ity of (PF)) 09:36: Q6HPRN, [place] injection 4 24 Starting Medi rafael mg on Mon Branch 03/08/23 at 0436, Until Discontinu ed, Routine, Nausea and Vomiting (N/V) HYDROcodone 2022-0 202- No 1{tbl} 1 tablet, Univers -acetaminop 03-08 06-09 [...] blood 2023-03-10 00:08:00 163 mm[Hg] Univer sity [facility] Diastolic blood 2023-03-10 00:08:00 90 mm[facility]Hg[facility] 2023-03-10 00:08:00 70 /min [facility] Body temperature 2023-03-10 00:08:00 35.17 Teresa [facility] Respiratory rate 2023-03-10 00:08:00 16 /min [facility] Oxygen saturation in 2023-03-10 00:08:00 90 /min [facility] blood by [facility] Pulse oximetry [place] Body weight 2023-03-09 08:37:00 102.967 kg [facility] BMI 2023-03-09 08:37:00 30.79 kg/m2 [facility] Body height 2023-03-08 09:35:00 182.9 cm [facility] height 2020-12-03 11:15:00 70 [in_i] Common [facility] weight 2020-12-03 11:15:00 197 [lb_av] [facility] temperature 2020-12-03 11:15:00 97.6 [degF] Common [facility] bmi 2020-12-03 11:15:00 28.26 kg/m2 [facility] oximetry 2020-12-03 11:15:00 97 % Common [facility] blood pressure 2020-12-03 11:15:00 139 mm[Hg] Common Spirit - systolic [facility] blood pressure 2020-12-03 11:15:00 64 mm[Hg] [facility] - diastolic [facility] height 2020-08-24 14:00:00 70 [in_i] [facility] weight 2020-08-24 14:00:00 199.6 [lb_av] [facility] temperature 2020-08-24 14:00:00 98.4 [degF] [facility] bmi 2020-08-24 14:00:00 28.64 kg/m2 [facility] oximetry 2020-08-24 14:00:00 96 % [facility] blood pressure 2020-08-24 14:00:00 197 mm[Hg] [facility] - systolic [facility] blood pressure 2020-08-24 14:00:00 86 mm[Hg] Common [facility] diastolic [facility] Procedures Procedure Date / Time Performing Clinician Source Performed POCT GLUCOSE (AUTOMATED) 2023-03-09 21:33:00 Starla Tafoya [facility] POCT GLUCOSE (AUTOMATED) 2023-03-09 16:39:00 Starla Tafoya [facility] POCT GLUCOSE (AUTOMATED) 2023-03-09 12:45:00 Starla Tafoya [facility] PHOSPHORUS 2023-03-09 09:02:00 Kel Yin [facility] MAGNESIUM 2023-03-09 09:02:00 [facility] 2023-03-09 09:02:00 Marito [facility] HEPATIC FUNCTION PANEL 2023-03-09 09:02:00 Kel Yin [facility] ([id number]) (ALB,T.PRO,BILI Medical Branch T,BU/BC,ALT,AST,ALK PHOS) BASIC METABOLIC PANEL 2023-03-09 09:02:00 Starla Tafoya [facility] (NA, K, CL, CO2, Medical Branch GLUCOSE, BUN, CREATININE, CA) CBC WITH DIFF 2023-03-09 09:02:00 Jagdish Martin [facility] N-TERMINAL PRO-BNP 2023-03-09 09:02:00 Kel Yin [facility] POCT GLUCOSE (AUTOMATED) 2023-03-09 02:08:00 Starla Tafoya [facility] TROPONIN I 2023-03-08 22:51:00 Michelet [facility] GLYCOSYLATED HEMOGLOBIN 2023-03-08 22:51:00 Jagdish Martin [facility] (A1C) [facility] POCT GLUCOSE (AUTOMATED) 2023-03-08 21:22:00 Starla Tafoya [facility] POCT GLUCOSE (AUTOMATED) 2023-03-08 16:16:00 Starla Tafoya [facility] TRANSTHORACIC ECHO (TTE) 2023-03-08 14:29:00 Starla Tafoya [facility] COMPLETE W/ CONTRAST Medical [facility] POCT GLUCOSE (AUTOMATED) 2023-03-08 12:39:00 Starla Tafoya [facility] PHOSPHORUS 2023-03-08 11:24:00 Michelet [facility] TROPONIN I 2023-03-08 11:24:00 Michelet [facility] N-TERMINAL PRO-BNP 2023-03-08 11:24:00 Candi Patel [facility] XR CHEST 1 VW 2023-03-08 06:27:00 Temi Holloway [facility] HB ECG ROUTINE & RHYTHM 2023-03-08 05:39:37 Temi Holloway [facility] LIPASE 2023-03-08 05:39:00 Temi Holloway [facility] TROPONIN I 2023-03-08 05:39:00 Temi Holloway [facility] THYROID STIMULATING 2023-03-08 05:39:00 Starla Tafoya [facility] HORMONE [facility] Branch COMP. METABOLIC PANEL 2023-03-08 05:39:00 Temi Holloway [facility] ([id number]) Medical [place] LIPID PANEL 2023-03-08 05:39:00 Starla Tafoya [facility] ([id number])(TOTAL Medical Branch CHOLESTEROL, TRIGLYCERIDES, HDL) CBC WITH DIFF 2023-03-08 05:39:00 Temi Holloway [facility] [place] [facility] GLYCOSYLATED HEMOGLOBIN 2023-03-08 05:39:00 [facility] (A1C) Medical [place] Encounters Start End Encounter Admission Attending Care Care Encounter Source Date/Time Date/Time Type Type Clinicians Facility Department ID 2021-10-27 [facility] [id number] Common 12:15:25 Kapil [id number] [facility] 2021-10-27 Outpatient [facility] [id number] Common 12:07:45 [id number] [facility] 2023-03-10 2023-03-10 Transition CHRISTOPHER Alcocer [id number] Univers 00:00:00 00:00:00 of Care Jose WHITE 350.1.13.10 ity of MIHIR 4.2.7.2.686 [facility] [id number] [facility] 403 Branch 2023-03-08 2023-03-09 Emergency Romel Montez [facility] 1.2. [id number] Univers 00:29:00 19:46:00 Starla Tafoya 350.1.13.10 ity of Kel Yin 4.2.7.2.686 [facility] [id number] [facility] 081 Branch 2023-03-08 2023-03-09 Outpatient Inocente YIN [facility] [id number] Univers 00:29:00 19:46:00 KEL loyola [facility] 2022-05-31 2022-05-31 Outpatient SPEEDY Dial [facility] [id number] [facility] 08:52:00 08:52:00 Jose Reyes [facility] 2022-05-11 2022-05-11 Outpatient SPEEDY Rae [facility] [id number] [facility] 10:11:00 10:11:00 Chad 67 [facility] 2022-05-11 2022-05-11 Outpatient SPEEDY RaeCL [id number] [facility] 10:11:00 10:11:00 Chad [id number] [facility] 2020-12-03 2020-12-03 OFFICE STLMLC STLMLC [id number] Co mmon 00:00:00 00:00:00 VISIT Spirit ESTAB PT - CHI LEVEL 2 [facility] 2020-08-24 2020-08-24 OFFICE STLMLC STLMLC [id number] Co mmon 00:00:00 00:00:00 VISIT NEW Spir it PT LEVEL 4 - CHI [facility] Results Test Description Test Time Test Comments Results Result Comments Source POCT GLUCOSE (AUTOMATED) 2023-03-09 21:35:08 Test Item Value Reference Range Interpretation Comme nts POCT GLU (test code = 5670602337) 149 mg/dL 70-110 H Lab Interpretation (test code = 79572-3) Abnormal [facility] GLUCOSE (AUTOMATED)2023-03-09 16:43:52 Test Item Value Reference Range Interpretation Comments POCT GLU (test code = 5272827649) 138 mg/dL 70-110 H Lab Interpretation (test code = Abnormal 39241-7) [facility] GLUCOSE (AUTOMATED)2023-03-09 12:55:44 Test Item Value Reference Range Interpretation Comments POCT GLU (test code = 0375097743) 126 mg/dL 70-110 H Lab Interpretation (test code = Abnormal 89045-2) [facility] GLUCOSE (AUTOMATED)2023-03-09 02:09:42 Test Item Value Reference Range Interpretation Comments POCT GLU (test code = 5495547329) 115 mg/dL 70-110 H Lab Interpretation (test code = Abnormal 66321-1) [facility] GLUCOSE (AUTOMATED)2023-03-08 21:32:42 Test Item Value Reference Range Interpretation Comments POCT GLU (test code = 6248701057) 266 mg/dL 70-110 H Lab Interpretation (test code = Abnormal 35926-2) [facility] GLUCOSE (AUTOMATED)2023-03-08 16:26:44 Test Item Value Reference Range Interpretation Comments POCT GLU (test code = 3169876099) 195 mg/dL 70-110 H Lab Interpretation (test code = Abnormal 19407-4) [facility] GLUCOSE (AUTOMATED)2023-03-08 12:40:58 Test Item Value Reference Range Interpretation Comments POCT GLU (test code = 6651175174) 179 mg/dL 70-110 H Lab Interpretation (test code = Abnormal 43750-9) [facility] Hospital[facility] Stimulating Hormone (TSH)2023-03-08 11:56:52 Test Item Value Reference Range Interpretation Comments TSH (test code = 5.09 See_Comment H Biotin has been 4237198966) reported to cau se a negative bias, interpret resul ts relative to pat randal's use of biotin. [Automated mess age] The system PSafe generated this result transmitted ref erence range: 0.45 - 4 .70 mIU/L. The refe rence range was not u sed to interpret this result as normal/abnor mal. Lab Interpretation (test Abnormal code = 67679-7) [facility] Hospital[facility]cosylated Hemoglobin (A1C)2023-03-08 11:27:39 Test Item Value Reference Range Interpretation Comments HGB A1C (test code = 9.3 % 4.0-5.7 H 4548-4) TRINIDAD (test code = TRINIDAD) Reference RangesNormal: <5.7%Prediabetes: 5.7 - 6.4%Diabetes: > 6.5% Lab Interpretation (test Abnormal code = 56301-3) [facility] [place] [facility] (Total Cholesterol, Triglycerides, HDL)2023-03-08 11:14:15 Test Item Value Reference Range Interpretation Comments CHOL (test code = 6677456229) 166 mg/dL 120-200 HDL (test code = 4092718806) 51 mg/dL >=40 HDLC RATIO (test code = 4256543518) 3.3 <=5.0 TRIG (test code = 7684881809) 83 mg/dL 30-170 LDL CHOL (test code = 53761-7) 98 mg/dL <=160 VLDL (test code = 6055478959) 17 mg/dL 5-60 Lab Interpretation (test code = Normal 85308-4) [facility] [place] [facility] Hospital[facility] [id number] 06:21:21 Test Item Value Reference Range Interpretation Comments TROPONIN I (test code = 0.075 ng/mL <=0.034 H 0463872538) TRINIDAD (test code = TRINIDAD) Reference (Normal) [...] biotin. Lab Interpretation Abnormal (test code = 78488-2) [facility] Hospital[facility]. METABOLIC PANEL (67886)2023-03-08 06:10:20 Test Item Value Reference Range Interpretation Comments NA (test code = 135 mmol/L 135-145 0789052842) K (test code = 4.3 mmol/L 3.5-5.0 2223695499) CL (test code = 104 mmol/L 98-108 4991733664) CO2 TOTAL (test code = 26 mmol/L 23-31 3783813339) AGAP (test code = 5 2-16 6017861259) BUN (test code = 27 mg/dL 7-23 H 4526056535) GLUCOSE (test code = 243 mg/dL 70-110 H 4023022549) CREATININE (test code = 2.15 mg/dL 0.60-1.25 H 3832886728) TOTAL BILI (test code = 0.8 mg/dL 0.1-1.4 4198041367) CALCIUM (test code = 8.2 mg/dL 8.6-10.6 L 3889279252) T PROTEIN (test code = 6.0 g/dL 6.3-8.2 L 6816506597) ALBUMIN (test code = 2.5 g/dL 3.5-5.0 L 0554370601) ALK PHOS (test code = 60 U/L 34-122 4520221181) ALTv (test code = 17 U/L 5-50 1742-6) AST(SGOT) (test code = 26 U/L 13-40 3531240682) eGFR (test code = 30.1 mL/min/1.73m2 1365569160) TRINIDAD (test code = TRINIDAD) Association of [...] tests). Lab Interpretation Abnormal (test code = 24169-8) [facility] [place] [facility] HospitalLIP[facility], [id number] 06:09:44 Test Item Value Reference Range Interpretation Comments LIPASE (test code = 7417575635) 101 U/L 0-220 Lab Interpretation (test code = Normal 55176-1) [facility] HospitalCB WITH [id number] 05:51:59 Test Item Value Reference Range Interpretation [...] (test code = 56.7 fL 38.5-51.6 H 50910-0) RDW-CV (test code = 19.4 % 12.1-15.4 H 788-0) PLT (test code = 232 See_Comment [Automated 777-3) message] The sy stem which generated this result transmitted reference range : 150 - 328 10*3/ ?L. The reference r michael was not used to interpret this result as normal/abnormal . MPV (test code = 10.5 fL 9.8-13.0 71755-3) NRBC/100 WBC (test 0.0 See_Comment [Automat ed code = 9237060037) message] The system which generated this result transmitted reference range : 0.0 - 10.0 /100 WBCs. The refer ence range was not u sed to interpret th is result as normal/abnormal . NRBC x10^3 (test code See_Comment [Auto mated = 3660493753) message] The s ystem which generated this result transmitted reference range : 10*3/?L. The reference range was not used to interpret this result as normal/abnormal . GRAN MAT (NEUT) % 68.1 % (test code = 770-8) IMM GRAN % (test code 0.20 % = 9934723754) LYMPH % (test code = 20.0 % 736-9) MONO % (test code = 9.2 % 5905-5) EOS % (test code = 1.6 % 713-8) BASO % (test code = 0.9 % 706-2) GRAN MAT x10^3(ANC) 3.85 10*3/uL 1.99-6.95 (test code = 1815196864) IMM GRAN x10^3 (test 0.00-0.06 code = 9036503688) LYMPH x10^3 (test code 1.13 10*3/uL 1.09-3.23 = 731-0) MONO x10^3 (test code 0.52 10*3/uL 0.36-1.02 = 742-7) EOS x10^3 (test code = 0.09 10*3/uL 0.06-0.53 711-2) BASO x10^3 (test code 0.05 10*3/uL 0.01-0.09 = 704-7) Lab Interpretation Abnormal (test code = 89020-6) [facility] [place] [facility] HospitalCOVID [facility] Asymptomatic IH [id number] 10:17:00 Test Item Value Reference Range Interpretation [...] y tests. - CTA HEART W CN [id number] 00:00:00 [facility] DAGMAR GONSALESName: ALBERT SANCHEZ : 1950 Sex: M Name: ALBERT SANCHEZ [facility] Dagmar Gonsales : 1950 Age/S: 72 / M [address] [place] [address] Blvd Unit #: [id number] Loc: [place] [address] Phys: Jose Reinoso [employer]ING TRAIN[employer] Acct: [id number] Dis Date: Status: REG CLI PHONE #: [phone] Exam Date: 05/31/2022 1012 FAX #: [phone] Reason: EXAMS: CPT CODE: [id number] CTA HEART W CN ART/GRAFTS 94438 PROCEDURE INFORMATION: Exam: CTA Heart And Coronary [...] 1 Signed Report (CONTINUED) Name: ALBERT SANCHEZ [facility] : 1950 Age/S: 72 / M [address] [place] [address] Blvd Unit #: [id number] Loc: [place] [address] Phys: Jose Reinoso [facility] Acct: [id number] Dis Date: Status: REG CLI PHONE #: [phone] Exam Date: 05/31/2022 1012 FAX #: [phone] Reason: EXAMS: CPT CODE: [id number] CTA HEART W CN ART/GRAFTS 45348 (Continued) mitral annular calcification. PERICARDIUM: No evidence [...] 2 Signed Report (CONTINUED) Name: ALBERT SANCHEZ [facility] : 1950 Age/S: 72 / M [address] [place] [address] Unit #: [id number] Loc: [place] [address] Phys: Jose Reinoso [employer]OXING TRAINER Acct: [id number] Dis Date: Status: REG CLI PHONE #: [phone] Exam Date: 05/31/2022 1012 FAX #: [phone] R riky: EXAMS: CPT CODE: [id number] CTA HEART W CN ART/GRAFTS 06715 (Continued) Small uncomplicated fat containing umbilical hernia. IMPRESSION: Mild atherosclerosis of the abdominal aorta which is widely patent with a minimal luminal diameter of 18 x 17 mm in the infrarenal segment. Moderate atheroscle rosis of the bilateral iliofemoral branches. The bilateral common iliac, external iliac and common femoral arteries are patent, measuring 6 mm or greater. Mild wall thickening of the underdistended bladder. This could simply be the result of underdistention however a mild cystitis is not excluded. Clin ical correlation and correlation with urinalysis recommended. at 1723 Reported and signed by: Wood Duran M.D. CC: Jose Reinoso Technologist:Berry Hearn, RT(R)(CT) CTDI: DLP: Trnscb Date/Time: 05/31/2022 (1722) t.[email or web address] Orig Print D/T: S: 05/31/2022 (1722) PAGE 3 Signed Report- CTA ABD PEL W [id number] 00:00:00 [facility] : 1950 Sex: M Name: ALBERT SANCHEZ [facility] : 1950 Age/S: 72 / M [address] [place] [address] Blvd Unit #: [id number] Loc: [place] [address] Phys: Jose Reinoso Acct: [id number] Dis Date: Status: REG CLI PHONE #: [phone] Exam Date: 05/31/2022 1012 FAX #: [phone] Reason: 135.0, SEVERE AORTIC STENOSIS. EXAMS: CPT CODE: [id number] CTA ABD PEL W CONT 26996 PROCEDURE INFORMATION: Exam: CTA Heart And Coronary [...] Mild PAGE 1 Signed Report (CONTINUED) Name: ABLERT SANCHEZ [facility] : 1950 Age/S: 72 / M [address] [place] [address] Blvd Unit #: [id number] Loc: [place] [address] Phys: Jose Reinoso BOXING TRAINER Acct: [id number] Dis Date: Status: REG CLI PHONE #: [phone] Exam Date: 05/31/2022 1012 FAX #: [phone] Reason: 135.0, SEVERE AORTIC STENOSIS. EXAMS: CPT CODE: [id number] CTA ABD PEL W CONT 30493 (Continued) mitral annular calcification. PERICARDIUM: No evidence [...] 2 Signed Report (CONTINUED) Name: ALBERT SANCHEZ [facility] Dagmar [place]ons[place] : 1950 Age/S: 72 / M [address] [place] [address] Unit #: [id number] Loc: [place] [address] Phys: Jose Reinoso Acct: [id number] Dis Date: Status: REG CLI PHONE #: [phone] Exam Date: 05/31/2022 1012 FAX #: [phone] Reason: 135.0, SEVERE AORTIC STENOSIS. EXAMS: CPT CODE: [id number] CTA ABD PEL W CONT 34057 (Continued) Small uncomplicated fat containing umbilical hernia. [...] (1724) PAGE 3 Signed Report- CT ANGIO [id number] 00:00:00[facility] DAGMAR GONSALESName: ALBERT SANCHEZ : 1950 Sex: M Name: ALBERT SANCHEZ [facility] [place] : 1950 Age/S: 72 / M [address] [place] [address] Blvd Unit #: [id number] Loc: [place] [address] Phys: Jose Reinoso BOXING TRAINER Acct: [id number] Dis Date: Status: REG CLI PHONE #: [phone] Exam Date: 05/31/2022 1012 FAX #: [phone] Reason: 135.0 , SEVERE AORTIC STENOSIS. EXAMS: CPT CODE: [id number] CT ANGIO CHEST 33713 PROCEDURE INFORMATION: Exam: CTA Heart And Coronary [...] 1 Signed Report (CONTINUED) Name: ALBERT SANCHEZ [facility] : 1950 Age/S: 72 / M [address] [place] [address] Blvd Unit #: [id number] Loc: [place] [address] Phys: Jose Reinoso [facility] Acct: [id number] Dis Date: Status: REG CLI PHONE#: [phone] Exam Date: 05/31/2022 1012 FAX #: [phone] Reason: 135.0 , SEVERE AORTIC STENOSIS. EXAMS: CPT CODE: [id number] CT ANGIO CHEST 93776 (Continued) mitral annular calcification. PERICARDIUM: No evidence of pericardial effusion. MEDIASTINUM: Mild enlargement of mediastinal lymph nodes inthe right paratracheal region, left paratracheal region, left AP window, bilateral hilar and infracarinal stations, the largest in the right paratracheal region measuring up to 18 mm. LUNGS AND PLEURA:There are small bilateral pleural effusions with mild adjacent atelectasis. There is mild interlobular septal thickening bilaterally with mild ground-glass changes consistent with mild edema. BONES ANDSOFT TISSUES: There are no bony lytic or blastic lesions. IMPRESSION: Severe calcification of the aortic valve compatible with aortic stenosis. The total calcium score of the aortic valve is 1658. Aortic annulus 26.6 x 21 mm, area of 4.18 cm2 and perimeter of 73.9 mm. Mild pulmonary edema and small bilateral pleural effusions with mild adjacent atelectasis. Mild enlargement mediastinal lymph nodes, me asuring up to 18 mm in the right paratracheal region. In the presence of edema, these are most likely congestive in nature . Follow-up CT chest with IV contrast is suggested in 6 months to reassess. CTA ABDOMEN AND PELVIS ABDOMINAL AORTA: There is mild atherosclerosis involving the abdominal aorta andmoderate atherosclerosis involving the iliofemoral branches. The celiac [...] PAGE 2 Signed Report (CONTINUED) Name: ALBERT SANCHZE [facility] : 1950 Age/S: 72 / M [address] [place] [address] Blvd Unit #: [id number] Loc: [place] [address] Phys: Jose Reinoso [facility] Acct: [id number] Dis Date: Status: REG CLI PHONE #: [phone] ExamDate: 05/31/2022 1012 FAX #: [phone] Reason: 135.0 , SEVERE AORTIC STENOSIS. EXAMS: CPT CODE: [id number] CT ANGIO CHEST 17254 (Continued) Small uncomplicated fat containing umbilical hernia. 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 CBC W/AUTO [id number] 16:09:00 Test Item Value Reference Range Interpretation [...] MANUAL DIFF REQUIRED (test code NO = MDIFF)"
--- NOTE | 2023-07-08 12:14 | RAD REPORT ---
EXAM DESCRIPTION: RAD - Chest Single View - 07/08/2023 12:09 pm CLINICAL HISTORY: hypotension Chest pain. COMPARISON: Chest Single View dated 06/07/2023; Chest Single View dated 05/06/2023; Chest Single View da arelis 04/22/2023; Chest Single View dated 03/16/2023 FINDINGS: Portable technique limits examination quality. The lungs are grossly clear. The heart is mildly enlarged in size. No displaced fractures. IMPRESSION: No acute intrathoracic process suspected.
[2023-07-08 14:11] LABS: Absolute Lymphocytes (CBC) 1.4 K/uL (0.7-4.9); Hematocrit 46.5 % (39.6-49.0); Lymphocytes % 21.5 % (15.3-44.8); MCV 85.5 fL (80-100); MPV 8.8 fL (7.6-11.3); Platelets 187 thou/uL (152-406); RBC Red Blood Cell Count 5.44 M/uL (4.33-5.43)
[2023-07-08 14:12] LABS: Albumin 2.7 g/dL (3.4-5.0); Bilirubin Direct 0.1 mg/dL (0-0.2); Bilirubin Indirect, Calculated 0.4 mg/dL (0.2-0.8); Bilirubin Total 0.5 mg/dL (0.2-1.0); Potassium 4.5 mEq/L (3.5-5.1); Protein, Total 7.4 g/dL (6.4-8.2); Troponin High Sensitivity 53.3 pg/mL (<58.9)
--- NOTE | 2023-07-08 14:24 | ER ---
Nurse's Notes [facility] Name: Julianna Kearns Age: 73 yrs Sex: Male : 1950 Arrival Date: 07/08/2023 Time: 11:46 Bed 4 Private MD: Diagnosis: Hypotension, resolved Presentation: 07/08 11:52 Chief complaint: EMS states: EMS called by pt's , upon EMS arrival pt was found to ph be slow to respond, initial BP 78 systolic, after placed in supine position BP improved to 170s systolic and pt became more responsive, hx of HTN, states that he may have taken an extra hydralazine on accident. Coronavirus screen: Vaccine status: Patient reports being unvaccinated. Ebola Screen: No symptoms or risks identified at this time. Initial Sepsis Screen: Does the patient meet any 2 criteria? No. Patient's initial sepsis screen is negative. Does the patient have a suspected source of infection? No. Patient's initial sepsis screen is negative. Risk Assessment: Do you want to hurt yourself or someone else? Patient reports no desire to harm self or others. Onset of symptoms was July 08, 2023. 11:52 Method Of Arrival: EMS: [facility] 11:52 Acuity: VERONICA 3 ph Triage Assessment: 11:59 General: Appears in no apparent distress. Behavior is calm, cooperative. Pain: ph Complains of pain in left upper quadrant and left lower quadrant. Neuro: Level of Consciousness is awake, alert, obeys commands, Oriented to person, place, time, situation. Cardiovascular: Capillary refill < 3 seconds in bilateral fingers Patient's skin is warm and dry. Edema is 4+ to left midcalf, left ankle, left foot, right midcalf, right ankle and right foot pitting to left midcalf, left ankle, left foot, right midcalf, right ankle and right foot. Respiratory: Airway is patent Respiratory effort is even, unlabored. GI:. Derm: Wound noted medial aspect of left calf Wound is quarter sized, bright red, ulcer. Historical: - Allergies: 11:58 PENICILLINS; ph - PMHx: 11:58 Atrial Fib; caridac stent; CHF; Diabetes - NIDDM; Hypercholesterolemia; Hypertension; ph - PSHx: 11:58 cardiac stent; ph - Immunization history:: Adult Immunizations unknown. - Social history:: Smoking status: unknown. - Family history:: not pertinent. Screenin:01 [facility] ED Fall Risk Assessment (Adult) History of falling in the last 3 months, ph including since admission No falls in past 3 months (0 pts) Confusion or Disorientation No (0 pts) Intoxicated or Sedated No (0 pts) Impaired Gait Yes (1 pt) Mobility Assist Device Used Yes (1 pt) Altered Elimination No (0 pt) Score/Fall Risk Level 0 - 2 = Low Risk Oriented to surroundings, Maintained a safe environment, Provided non-skid footwear, Hourly rounding (assess needs \T\ fall precautionary measures) done. Abuse screen: Denies threats or abuse. Denies injuries from another. Nutritional screening: No deficits noted. Tuberculosis screening: No symptoms or risk factors identified. Assessment: 12:20 Reassessment: No changes from previously documented assessment. Patient and/or family ll1 updated on plan of care and expected duration. Pain level reassessed. Patient is alert, oriented x 3, equal unlabored respirations, skin warm/dry/pink. 12:50 Reassessment: No changes from previously documented assessment. Charge Nurse at BS ll1 trying to get blood. 14:09 Reassessment: No changes from previously documented assessment. Patient and/or family ll1 updated on plan of care and expected duration. Pain level reassessed. Patient is alert, oriented x 3, equal unlabored respirations, skin warm/dry/pink. Vital Signs: 11:52 BP 175 / 78; Pulse 63; Resp 18; Temp 97; Pulse Ox 95% on R/A; ph 14:09 BP 189 / 89; Pulse 68; Pulse Ox 97% ; ll1 15:04 BP 189 / 87; Pulse 69; Resp 17; Temp 97.5; Pulse Ox 98% ; ph ED Course: 11:52 Patient arrived in ED. ph 11:52 Shakir Crouch MD is Attending Physician. rt 11:57 Triage completed. 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 12:02 Patient has correct armband on for positive identification. Bed in low position. Call ph light in reach. Side rails up X2. Client placed on continuous cardiac and pulse oximetry monitoring. NIBP monitoring applied. Door closed. Noise minimized. Warm blanket given. Pillow given. 12:11 XRAY Chest (1 view) In Process Unspecified. EDMS 12:20 Adelso Jasso, RN is Primary Nurse. ll1 12:20 Missed attempt(s): 22 gauge in right antecubital area. Bleeding controlled, band aid ll1 applied, catheter tip intact. 12:20 EKG done, by ED staff, reviewed by Shakir Crouch MD. em1 12:37 Inserted saline lock: 22 gauge in left antecubital area, using aseptic technique. ph 15:05 No provider procedures requiring assistance completed. IV discontinued, intact, ph bleeding controlled, No redness/swelling at site. Pressure dressing applied. Administered Medications: No medications were administered Medication: 12:01 VIS not applicable for this client. ph Outcome: 14:24 Discharge ordered by . rt 15:05 Discharged to home via wheelchair, with significant other, ph 15:05 Condition: good 15:05 Discharge instructions given to patient, Instructed on discharge instructions, follow up and referral plans. Demonstrated understanding of instructions, follow-up care, 15:05 Patient left the ED. ph Signatures: Dispatcher [employer] EDMS Steve Olmedo em1 Tova Donald RN RN ph Adelso Jasso, ERICA RN ll1 Shakir Crouch MD MD rt
--- NOTE | 2023-07-08 14:24 | EDPHYS ---
Physician Documentation [facility] Name: Julianna Kearns Age: 73 yrs Sex: Male : 1950 Arrival Date: 07/08/2023 Time: 11:46 Bed 4 Private MD: ED Physician Shakir Crouch HPI: 07/08 14:02 This 73 yrs old Black Male presents to ER via EMS with complaints of Blood Pressure rt Problem - low. 14:02 Patient presents to the ED with reported hypotension. Patient reportedly had a blood rt pressure in the 70s. Patient states that he may have taken an extra hydralazine pill. He denies other acute complaints, other symptoms. Symptoms are moderate severity, no other aggravating or alleviating factors. Historical: - Allergies: 11:58 PENICILLINS; ph - PMHx: 11:58 Atrial Fib; caridac stent; CHF; Diabetes - NIDDM; Hypercholesterolemia; Hypertension; ph - PSHx: 11:58 cardiac stent; ph - Immunization history:: Adult Immunizations unknown. - Social history:: Smoking status: unknown. - Family history:: not pertinent. ROS: 14:02 Constitutional: Negative for fever, chills, and weight loss, Cardiovascular: Negative rt for chest pain, palpitations, and edema, Respiratory: Negative for shortness of breath, cough, wheezing, and pleuritic chest pain, Abdomen/GI: Negative for abdominal pain, nausea, vomiting, diarrhea, and constipation, MS/Extremity: Negative for injury and deformity, Skin: Negative for injury, rash, and discoloration, Neuro: Negative for headache, weakness, numbness, tingling, and seizure, Psych: Negative for depression, anxiety, suicide ideation, homicidal ideation, and hallucinations, Exam: 14:02 Constitutional: This is a well developed, well nourished patient who is awake, alert, rt and in no acute distress. Head/Face: Normocephalic, atraumatic. Neck: Trachea midline, no thyromegaly or masses palpated, and no cervical lymphadenopathy. Supple, full range of motion without nuchal rigidity, or vertebral point tenderness. No Meningismus. Chest/axilla: Normal chest wall appearance and motion. Nontender with no deformity. No lesions are appreciated. Cardiovascular: Regular rate and rhythm with a normal S1 and S2. No gallops, murmurs, or rubs. Normal PMI, no JVD. No pulse deficits. Respiratory: Lungs have equal breath sounds bilaterally, clear to auscultation and percussion. No rales, rhonchi or wheezes noted. No increased work of breathing, no retractions or nasal flaring. Abdomen/GI: Soft, non-tender, with normal bowel sounds. No distension or tympany. No guarding or rebound. No evidence of tenderness throughout. Skin: Warm, dry with normal turgor. Normal color with no rashes, no lesions, and no evidence of cellulitis. MS/ Extremity: Pulses equal, no cyanosis. Neurovascular intact. Full, normal range of motion. Neuro: Awake and alert, GCS 15, oriented to person, place, time, and situation. Cranial nerves II-XII grossly intact. Motor strength 5/5 in all extremities. Sensory grossly intact. Cerebellar exam normal. Normal gait. Psych: Awake, alert, with orientation to person, place and time. Behavior, mood, and affect are within normal limits. 14:02 ECG was reviewed by the Attending Physician. Vital Signs: 11:52 BP 175 / 78; Pulse 63; Resp 18; Temp 97; Pulse Ox 95% on R/A; ph 14:09 BP 189 / 89; Pulse 68; Pulse Ox 97% ; ll1 15:04 BP 189 / 87; Pulse 69; Resp 17; Temp 97.5; Pulse Ox 98% ; ph MDM: 11:53 Patient medically screened. rt 14:24 Differential Diagnosis Accidental overdose, electrolyte disturbance, acute coronary rt syndrome, dehydration. Data reviewed: vital signs, nurses notes, lab test result(s), EKG, radiologic studies. Consideration of Admission/Observation Escalation of care including admission/observation considered. Patient normotensive, asymptomatic in the ED, symptoms of hypotension previously likely due to extra antihypertensive, was observed for period of time in the ED, shows no hypotension. Labs are baseline for the patient, EKG is benign. Stable for outpatient care, return precautions discussed.. Independent interpretation of the following test(s) in the Emergency Department X-Ray: My interpretation is No consolidation seen on interpretation of x-ray images. Counseling: I had a detailed discussion with the patient and/or guardian regarding the historical points, exam findings, and any diagnostic results supporting the discharge/admit diagnosis, lab results, radiology results, the need for outpatient follow up, to return to the emergency department if symptoms worsen or persist or if there are any questions or concerns that arise at home. 07/08 11:53 Order name: Basic Metabolic Panel; Complete Time: 14:16 rt 07/08 11:53 Order name: CBC with Diff; Complete Time: 14:18 rt 07/08 11:53 Order name: LFT's; Complete Time: 14:16 rt 07/08 11:53 Order name: Magnesium; Complete Time: 14:16 rt 07/08 11:53 Order name: NT PRO-BNP; Complete Time: 14:16 rt 07/08 11:53 Order name: Troponin HS; Complete Time: 14:16 rt 07/08 11:53 Order name: XRAY Chest (1 view); Complete Time: 12:17 rt 07/08 11:53 Order name: EKG; Complete Time: 11:54 rt 07/08 11:53 Order name: Cardiac monitoring; Complete Time: 12:27 rt 07/08 11:53 Order name: EKG - Nurse/Tech; Complete Time: 12:20 rt 07/08 11:53 Order name: IV Saline Lock; Complete Time: 13:28 rt 07/08 11:53 Order name: Labs collected and sent; Complete Time: 14:16 rt 07/08 11:53 Order name: O2 Per Protocol; Complete Time: 12:02 rt 07/08 11:53 Order name: O2 Sat Monitoring; Complete Time: 12:02 rt EC:02 Rate is 62 beats/min. Rhythm is regular, Normal Sinus Rhythm with No ectopy. Left axis rt deviation noted. NM interval is normal. QRS interval is normal. QT interval is normal. No Q waves. T waves are Normal. No ST changes noted. Interpreted by me. Administered Medications: No medications were administered Disposition Summary: 07/08/23 14:24 Discharge Ordered Notes: Location: Home rt Problem: new rt Symptoms: have improved rt Condition: Stable rt Diagnosis - Hypotension, resolved rt Followup: rt - With: Private Physician - When: 2 - 3 days - Reason: Discharge Instructions: - Discharge Summary Sheet rt - Hypotension rt Forms: - Medication Reconciliation Form rt - Thank You Letter rt - Antibiotic Education rt - Prescription Opioid Use rt - Patient Portal Instructions rt - Leadership Thank You Letter rt Signatures: Dispatcher [employer] Tova Carnes, ERICA RN ph Shakir Crouch MD MD rt
[2023-07-08 15:31] VITALS: BP 189/87; TEMP 97.5; O2SAT 98
--- NOTE | 2023-07-10 12:20 | EKG ---
Test Date: 2023-07-08 Test Time: 12:08:32 Pipe Inspector: GRISELDA MEASUREMENT RESULTS: Intervals: Rate: 62 MT: 176 QRSD: 92 QT: 472 QTc: 479 [place]: P: 75 MT: 176 QRS: -46 T: -55 INTERPRETIVE STATEMENTS: Normal sinus rhythm Left axis deviation Nonspecific ST and T wave abnormality Prolonged QT Abnormal ECG Compared to ECG 06/07/2023 13:48:12 Sinus bradycardia no longer present ST (T wave) deviation still present Electronically Signed On 07-10-23 12:15:56 CDT by Chad Alvarez
== END 2023-07-08 15:05 | disposition home or self-care (01) ==
LOC: ER 11:46
DX: I95.9 Hypotension, unspecified (principal); E11.9 Type 2 diabetes mellitus without complications; E78.00 Pure hypercholesterolemia, unspecified; I48.91 Unspecified atrial fibrillation; I50.9 Heart failure, unspecified; Z95.5 Presence of coronary angioplasty implant and graft; Z88.0 Allergy status to penicillin
CPT/HCPCS: 36415; 71045; 80048; 80076; 83735; 83880; 84484; 85025; 93005; 99284

== ENCOUNTER 2023-07-12 14:50 | Emergency (ER) | payer OTHER ==
--- OUTSIDE RECORDS SUMMARY | 2023-07-12 14:54 | XMS REPORT | Continuity of Care Document ---
:1950 Author Organization [facility] t Address [address] [place] [address] Care Team Providers Name Role Phone Bassam Donis Attending Clinician Unavailable Jose Reinoso Attending Clinician Unavailable Chad Alvarez Attending Clinician Unavailable Physician, No Primary or Family Admitting Clinician Unavaila ble Payers Payer Name Policy Type Policy Number Effective Date Expiration Date S [place]ce [place] [address] [id number] Common [facility] Problems Condition Condition Condition Status Onset Resolution Last Treating Co mments Source Name Details Category Date Date Treatment Clinician Date [id number] 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 - [facility] n) of [facility] [id number] Prostate Problem Active Com mon nodule [facility] [id number] Urge Problem Active Common incontinen Spirit ce [facility] [id number] Lower Problem Active Common urinary [facility] Allergies, Adverse Reactions, Alerts Allergy Allergy Status Severity Reaction(s) Onset Inactive Treating Comm ents Source Name Type Date Date Clinician Penicill DA Active SV HIVES [facility] ins 05-06 Clear 00:00: Gonsales 00 [facility] Social History Social Habit Start Date Stop Date Quantity Comments Source Sex Assigned At Com mon [facility] History of Tobacco Use Co mmon [facility] Medications Ordered Filled Start Stop Current [...] Source height 2020-12-03 11:15:00 70 [in_i] Common [facility] weight 2020-12-03 11:15:00 197 [lb_av] [facility] temperature 2020-12-03 11:15:00 97.6 [degF] [facility] bmi 2020-12-03 11:15:00 28.26 kg/m2 [facility] oximetry 2020-12-03 11:15:00 97 % [facility] blood pressure 2020-12-03 11:15:00 139 mm[Hg] Common [facility] - systolic [facility] blood pressure 2020-12-03 11:15:00 64 mm[Hg] Common Spirit - diastolic [facility] height 2020-08-24 14:00:00 70 [in_i] Common [facility] weight 2020-08-24 14:00:00 199.6 [lb_av] [facility] temperature 2020-08-24 14:00:00 98.4 [degF] [facility] bmi 2020-08-24 14:00:00 28.64 kg/m2 [facility] oximetry 2020-08-24 14:00:00 96 % [facility] blood pressure 2020-08-24 14:00:00 197 mm[Hg] Common Spirit - systolic [facility] blood pressure 2020-08-24 14:00:00 86 mm[Hg] Common [facility] - diastolic [facility] Procedures This patient has no known procedures. Encounters Start End Encounter Admission Attending Care Care Encounter Source Date/Time Date/Time Type Type Clinicians Facility Department ID 2021-10-27 Outpatient Donis, [facility] [id number] Common 12:15:25 Bassam [id number] [facility] 2021-10-27 Outpatient STLMLC [facility] [id number] Common 12:07:45 [id number] Spirit - CHI [facility] 2022-05-31 2022-05-31 Outpatient SPEEDY Dial [facility] [id number] [facility] 08:52:00 08:52:00 Olanijill 47 [facility] 2022-05-11 2022-05-11 [facility] [id number] [facility] 10:11:00 10:11:00 Chad 67 [facility] 2022-05-11 2022-05-11 Outpatient SPEEDY Rae [facility] [id number] [facility] 10:11:00 10:11:00 Chad [id number] [facility] 2020-12-03 2020-12-03 OFFICE STLC [facility] [id number] Co mmon 00:00:00 00:00:00 VISIT Spirit ESTAB PT - CHI LEVEL 2 [facility] 2020-08-24 2020-08-24 OFFICE STLC [facility] [id number] Co mmon 00:00:00 00:00:[address] [facility] it PT LEVEL 4 - CHI [facility] Results Test Description Test Time Test [...] y tests. - CTA HEART W CN ART/[id number] 00:00:00 [facility] GONSALESName: ALBERT SANCHEZ : 1950 Sex: M Name: ALBERT SANCHEZ [facility] Dagmar Gonsales : 1950 Age/S: 72 / M [address] [place] [address] Blvd Unit #: [id number] Loc: [place] [address] Phys: ChrisstephanieJose brennan [employer] Acct: [id number] Dis Date: Status: REG CLI PHONE #: [phone] Exam Date: 05/31/2022 1012 FAX #: [phone] Reason: EXAMS: CPT CODE: [id number] CTA HEART W CN ART/GRAFTS 07434 PROCEDURE INFORMATION: Exam: CTA Heart And Coronary [...] percent phase of the R-R interval. Aortic zfoukhu08.6 x 21 mm, area of 4.18 cm2 [...] 1 Signed Report (CONTINUED) Name: ALBERT SANCHEZ [facility] : 1950 Age/S: 72 / M [address] [place] [address] Blvd Unit #: [id number] Loc: [place] [address] Phys: Jose Reinoso [facility] Acct: [id number] Dis Date: Status: REG CLI PHONE #: [phone] Exam Date: 05/31/2022 1012 FAX #: [phone] Reason: EXAMS: CPT CODE: [id number] CTA HEART W CN ART/GRAFTS 97952 (Continued) mitral annular calcification. PERICARDIUM: No evidence [...] 2 Signed Report (CONTINUED) Name: ALBERT SANCHEZ [facility] : 1950 Age/S: 72 / M [address] [place] [address] Unit #: [id number] Loc: [place] [address] Phys: Jose Reinoso [facility] Acct: [id number] Dis Date: Status: REG CLI PHONE #: [phone] Exam Date: 05/31/2022 1012 FAX #: [phone] Reason: EXAMS: CPT CODE: [id number] CTA HEART W CN ART/GRAFTS 24025 (Continued) Small uncomplicatedfat containing umbilical hernia. IMPRESSION: [...] CTA ABD PEL W CONT 2022-05-31 00:00:00 [facility] 1950 Sex: M Name: ALBERT SANCHEZ [facility] : 1950 Age/S: 72 / M [address] [place] [address] Blvd Unit #: [id number] Loc: [place] [address] Phys: Jose Reinoso Acct: [id number] Dis Date: Status: REG CLI PHONE #: [phone] Exam Date: 05/31/2022 1012 FAX #: [phone] Reason: 135.0, SEVERE AORTIC STENOSIS. EXAMS: CPT CODE: [id number] CTA ABD PEL W CONT 69830 PROCEDURE INFORMATION: Exam: CTA Heart And Coronary [...] 1 Signed Report (CONTINUED) Name: ALBERT SANCHEZ [facility] [place] : 1950 Age/S: 72 / M [address] [place] [address] Unit #: [id number] Loc: [place] [address] Phys: Jose Reinoso [facility] Acct: [id number] Dis Date: Status: REG CLIPHONE #: [phone] Exam Date: 05/31/2022 1012 FAX #: [phone] Reason: 135.0, SEVERE AORTIC STENOSIS. EXAMS: CPT CODE: [id number] CTA ABD PEL W CONT 98273 (Continued) mitral annular calcification. PERICARDIUM: No evidence [...] SANCHEZ : 1950 Age/S: 72 / M [address] [place] [address] Blvd Unit #: [id number] Loc: [place] [address] Phys: Jose Reinoso Acct: [id number] Dis Date: Status: REG CLI PHONE #: [phone] Exam Date: 05/31/2022 1012 FAX #: [phone] Reason: 135.0, SEVERE AORTIC STENOSIS. EXAMS: CPT CODE: [id number] CTA ABD PEL W CONT 44278 (Continued) Small uncomplicated fat containing umbilical hernia. [...] (172) PAGE 3 Signed Report- CT ANGIO [id number] 00:00:00[facility] DRUName: ALBERT SANCHEZ : 1950 Sex: M Name: ALBERT SANCHEZ [facility] Dagmar Gonsales : 1950 Age/S: 72 / M [address] [place] [address] Blvd Unit #: [id number] Loc: [place] [address] Phys: Jose Reinoso [facility] Acct: [id number] Dis Date: Status: REG CLI PHONE #: [phone] Exam Date: 05/31/2022 1012 FAX #: [phone] Reason: 135.0 , SEVERE AORTIC STENOSIS. EXAMS: CPT CODE: [id number] CT ANGIO CHEST 71803 PROCEDURE INFORMATION: Exam: CTA Heart And Coronary [...] 1 Signed Report (CONTINUED) Name: ALBERT SANCHEZ [facility] : 1950 Age/S: 72 / M [address] [place] [address] Unit #: [id number] Loc: [place] [address] Phys: Jose Reinoso [facility] Acct: [id number] Dis Date: Status: REG CLI PHONE #: [phone] Exam Date: 05/31/2022 1012 FAX #: [phone] Reason: 135.0 , SEVERE AORTIC STENOSIS. EXAMS: CPT CODE: [id number] CT ANGIO CHEST 23045 (Continued) mitral annular calcification. PERICARDIUM: No evidence [...] 2 Signed Report (CONTINUED) Name: ALBERT SANCHEZ [facility] : 1950 Age/S: 72 / M [address] [place] [address] Blvd Unit #: [id number] Loc: Dennis [id number] Phys: ChrisstephaniemikaJose [facility] Acct: [id number] Dis Date: Status: REG CLI PHONE #: [phone] Exam Date: 05/31/2022 1012 FAX #: [phone] Reason: 135.0 , SEVERE AORTIC STENOSIS. EXAMS: CPT CODE: [id number] CT ANGIO CHEST 47405 (Continued) Small uncomplicated fat containing umbilical hernia. 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 CBC W/AUTO [id number] 16:09:00 Test Item Value Reference Range Interpretation [...]
[2023-07-12] MEDS ORDERED: HYDRALAZINE HCL 20 MG/ML VIAL ONE (15:42)
--- NOTE | 2023-07-12 16:06 | RAD REPORT ---
EXAM DESCRIPTION: RAD - Chest Single View - 07/12/2023 3:53 pm CLINICAL HISTORY: HTN Chest pain. COMPARISON: Chest Single View dated 07/08/2023; Chest Single View dated 06/07/2023; Chest Single View d ated 05/06/2023; Chest Single View dated 04/22/2023 FINDINGS: Portable technique limits examination quality. The lungs are grossly clear. The heart is moderately enlarged in size. No displaced fractures. IMPRESSION: No acute intrathoracic process suspected.
[2023-07-12 16:49] LABS: Lymphocytes % 31.2 % (15.3-44.8); MCV 84.8 fL (80-100); MPV 8.7 fL (7.6-11.3); Platelets 219 thou/uL (152-406); RBC Red Blood Cell Count 5.67 M/uL (4.33-5.43)
[2023-07-12 16:59] LABS: Magnesium 1.9 mg/dL (1.6-2.4); Potassium 4.5 mEq/L (3.5-5.1); Troponin High Sensitivity 44.7 pg/mL (<58.9)
--- NOTE | 2023-07-12 17:16 | EDPHYS ---
Physician Documentation [facility] Name: Julianna Kearns Age: 73 yrs Sex: Male : 1950 Arrival Date: 07/12/2023 Time: 14:50 Bed 6 Private MD: ED Physician Tayo Wade HPI: 07/12 15:25 This 73 yrs old Black Male presents to ER via Wheelchair with complaints of High Blood ms3 Pressure. 15:25 73-year-old male with past medical history of atrial fibrillation, cardiac stent, ms3 congestive heart failure, diabetes, hyperlipidemia, hypertension presents from Dr. Granados's office for high blood pressure. Patient states his blood pressure was low over the weekend. Patient states he has taken his blood pressure medications losartan and carvedilol. Patient denies pain at this time. Patient denies any alleviating or inciting factors. Historical: - Allergies: 15:11 PENICILLINS; ap3 - PMHx: 15:11 Atrial Fib; caridac stent; CHF; CHF; Diabetes - NIDDM; Hypercholesterolemia; ap3 Hypertension; - PSHx: 15:11 cardiac stent; ap3 - Immunization history:: Client reports having NOT received the Covid vaccine. - Social history:: Smoking status: Patient denies any tobacco usage or history of. ROS: 15:25 Constitutional: Negative for fever, and chills. ENT: Negative for injury, pain, and ms3 discharge, Neck: Negative for injury, pain, and swelling, Cardiovascular: Negative for chest pain, and palpitations. Respiratory: Negative for shortness of breath, cough, wheezing, and pleuritic chest pain, Abdomen/GI: Negative for abdominal pain, nausea, vomiting, diarrhea, and constipation, MS/Extremity: Negative for injury and deformity, Skin: Negative for injury, rash, and discoloration, 15:25 All other systems are negative, Exam: 15:25 Constitutional: This is a well developed, well nourished patient who is awake, alert, ms3 and in no acute distress. Head/Face: Normocephalic, atraumatic. Neck: Trachea midline, no cervical lymphadenopathy. Supple, full range of motion without nuchal rigidity, or vertebral point tenderness. No Meningismus. Chest/axilla: Normal chest wall appearance and motion. Nontender with no deformity. Cardiovascular: Regular rate and rhythm with a normal S1 and S2. No gallops, murmurs, or rubs. Normal PMI, no JVD. No pulse deficits. Respiratory: Lungs have equal breath sounds bilaterally, clear to auscultation and percussion. No rales, rhonchi or wheezes noted. No increased work of breathing, no retractions or nasal flaring. Abdomen/GI: Soft, non-tender, with normal bowel sounds. No distension or tympany. No guarding or rebound. No evidence of tenderness throughout. Skin: Warm, dry with normal turgor. Normal color with no rashes, no lesions, and no evidence of cellulitis. MS/ Extremity: Pulses equal, no cyanosis. Neurovascular intact. Full, normal range of motion. 16:57 ECG was reviewed by the Attending Physician. ms3 Vital Signs: 15:09 BP 210 / 92; Pulse 73; Resp 19; Temp 98.7; Pulse Ox 93% on R/A; Weight 85.73 kg; Pain ap3 3/10; 15:48 BP 235 / 70; Pulse 80; Resp 19; Pulse Ox 95% on R/A; tm6 16:32 BP 233 / 121; Pulse 82; Resp 17; Pulse Ox 94% on R/A; tm6 17:00 BP 176 / 76; Pulse 90; Pulse Ox 96% on R/A; tm6 17:03 BP 184 / 82; tm6 15:09 Pain Scale: Adult ap3 MDM: 15:25 Differential diagnosis: hypertensive crisis, [place] vs [place]. ms3 15:27 Patient medically screened. ms3 17:17 Data reviewed: vital signs, nurses notes, lab test result(s), EKG, radiologic studies, ms3 and as a result, I will discharge patient. I considered the following discharge prescriptions or medication management in the emergency department Medications were administered in the Emergency Department. See MAR. Independent interpretation of the following test(s) in the Emergency Department EKG: See my EKG interpretation above X-Ray: My interpretation is CXR Image reviewed by me does not reveal pulmonary edema. Historians other than the Patient: Spouse/Significant Other: Patient's . Counseling: I had a detailed discussion with the patient and/or guardian regarding the historical points, exam findings, and any diagnostic results supporting the discharge/admit diagnosis, lab results, radiology results, the need for outpatient follow up, to return to the emergency department if symptoms worsen or persist or if there are any questions or concerns that arise at home. Counseling: I had a detailed discussion with the patient and/or guardian regarding. Special discussion: I discussed with the patient/guardian in detail that at this point there is no indication for admission to the hospital. It is understood, however, that if the symptoms persist or worsen the patient needs to return immediately for re-evaluation. ED course: Discussed labs, chest x-ray, EKG findings with patient. Patient to follow-up with his primary care physician in 2 to 3 days for blood pressure medication readjustment. Patient understands and agrees with plan. All questions were answered. Return precautions discussed include headache, shortness of breath, chest pain, worsening symptoms, or any other concerns. On reevaluation patient is alert and oriented x4, no apparent distress, nontoxic-appearing, ambulatory in emergency department, speaking full sentences. 07/12 15:27 Order name: Basic Metabolic Panel; Complete Time: 17:10 ms3 07/12 15:27 Order name: CBC with Diff; Complete Time: 16:58 ms3 07/12 15:27 Order name: Magnesium; Complete Time: 17:10 ms3 07/12 15:27 Order name: Troponin HS; Complete Time: 17:10 ms3 07/12 15:27 Order name: XRAY Chest (1 view); Complete Time: 16:23 ms3 07/12 15:27 Order name: EKG; Complete Time: 15:27 ms3 07/12 15:27 Order name: Cardiac monitoring; Complete Time: 15:46 ms3 07/12 15:27 Order name: EKG - Nurse/Tech; Complete Time: 15:46 ms3 07/12 15:27 Order name: IV Saline Lock; Complete Time: 16:36 ms3 07/12 15:27 Order name: Labs collected and sent; Complete Time: 16:36 ms3 07/12 15:27 Order name: O2 Per Protocol; Complete Time: 15:29 ms3 07/12 15:27 Order name: O2 Sat Monitoring; Complete Time: 15:29 ms3 EC:57 Rate is 78 beats/min. Rhythm is irregularly irregular. Right axis deviation noted. QRS ms3 interval is normal. Clinical impression: Atrial Flutter. Interpreted by me. Reviewed by me. Administered Medications: 16:35 Drug: hydrALAZINE IVP 10 mg IVP once Route: IVP; Site: left upper arm; ld1 17:03 Follow up: BP 184 / 82 tm6 Disposition Summary: 07/12/23 17:16 Discharge Ordered Notes: Location: Home ms3 Condition: Stable ms3 Diagnosis - Essential (primary) hypertension ms3 - Chronic kidney disease, unspecified ms3 Followup: ms3 - With: Shawn Granados MD - When: 1 - 2 days - Reason: Recheck today's complaints Discharge Instructions: - Discharge Summary Sheet ms3 - Hypertension, Adult ms3 Forms: - Medication Reconciliation Form ms3 - Thank You Letter ms3 - Antibiotic Education ms3 - Prescription Opioid Use ms3 - Patient Portal Instructions ms3 - Leadership Thank You Letter ms3 Signatures: Dispatcher [employer] Emerald Gaitan RN RN ap3 Tayo Wade DO DO ms3 Margarita Wade RN RN ld1 Iman Krueger RN tm6
--- NOTE | 2023-07-12 17:16 | ER ---
Nurse's Notes [facility] Name: Julianna Kearns Age: 73 yrs Sex: Male : 1950 Arrival Date: 07/12/2023 Time: 14:50 Bed 6 Private MD: Diagnosis: Essential (primary) hypertension;Chronic kidney disease, unspecified Presentation: 07/12 15:09 Chief complaint: Spouse and/or significant other states: the patient was sent by Dr. christa Granados for high blood pressure during his check up today. Patient reports a mild headache at this time, but no other symptoms. Coronavirus screen: At this time, the client does not indicate any symptoms associated with coronavirus-19. Ebola Screen: No symptoms or risks identified at this time. Initial Sepsis Screen: Does the patient meet any 2 criteria? No. Patient's initial sepsis screen is negative. Does the patient have a suspected source of infection? No. Patient's initial sepsis screen is negative. Risk Assessment: Do you want to hurt yourself or someone else? Patient reports no desire to harm self or others. Onset of symptoms was July 12, 2023. 15:09 Method Of Arrival: Wheelchair ap3 15:09 Acuity: VERONICA 2 ap3 Triage Assessment: 15:11 General: Appears in no apparent distress. Behavior is calm, cooperative, appropriate ap3 for age. Pain: Complains of pain in headache Pain currently is 3 out of 10 on a pain scale. Pain began gradually. Neuro: Level of Consciousness is awake, alert, obeys commands, Oriented to person, place, time, situation, Appropriate for age Reports headache. Cardiovascular: Patient's skin is warm and dry. Respiratory: Airway is patent Respiratory effort is even, unlabored, Respiratory pattern is regular, symmetrical. Historical: - Allergies: 15:11 PENICILLINS; ap3 - PMHx: 15:11 Atrial Fib; caridac stent; CHF; CHF; Diabetes - NIDDM; Hypercholesterolemia; ap3 Hypertension; - PSHx: 15:11 cardiac stent; ap3 - Immunization history:: Client reports having NOT received the Covid vaccine. - Social history:: Smoking status: Patient denies any tobacco usage or history of. Screenin:12 Abuse screen: Denies threats or abuse. Nutritional screening: No deficits noted. ap3 Tuberculosis screening: No symptoms or risk factors identified. 15:48 [facility] ED Fall Risk Assessment (Adult) History of falling in the last 3 months, tm6 including since admission No falls in past 3 months (0 pts). Assessment: 15:47 General: Appears in no apparent distress. comfortable, Behavior is calm, cooperative, tm6 appropriate for age. Pain: Denies pain. Neuro: Level of Consciousness is awake, alert, obeys commands, Oriented to person, place, time, situation, Appropriate for age. Cardiovascular: Capillary refill < 3 seconds. Respiratory: Airway is patent Respiratory effort is even, unlabored, Respiratory pattern is regular. 15:48 GI: No signs and/or symptoms were reported involving the gastrointestinal system. : tm6 No signs and/or symptoms were reported regarding the genitourinary system. EENT: No signs and/or symptoms were reported regarding the EENT system. Derm: No signs and/or symptoms reported regarding the dermatologic system. Musculoskeletal: No signs and/or symptoms reported regarding the musculoskeletal system. 17:24 Reassessment: Patient appears in no apparent distress at this time. No changes from ld1 previously documented assessment. Patient and/or family updated on plan of care and expected duration. Pain level reassessed. Patient is alert, oriented x 3, equal unlabored respirations, skin warm/dry/pink. Vital Signs: 15:09 BP 210 / 92; Pulse 73; Resp 19; Temp 98.7; Pulse Ox 93% on R/A; Weight 85.73 kg; Pain ap3 3/10; 15:48 BP 235 / 70; Pulse 80; Resp 19; Pulse Ox 95% on R/A; tm6 16:32 BP 233 / 121; Pulse 82; Resp 17; Pulse Ox 94% on R/A; tm6 17:00 BP 176 / 76; Pulse 90; Pulse Ox 96% on R/A; tm6 17:03 BP 184 / 82; tm6 15:09 Pain Scale: Adult ap3 ED Course: 14:52 Patient arrived in ED. rg4 15:11 Triage completed. ap3 15:12 Arm band placed on right wrist. ap3 15:20 Tayo Wade DO is Attending Physician. ms3 15:48 No apparent distress. tm6 15:48 Patient has correct armband on for positive identification. Bed in low position. Call tm6 light in reach. Side rails up X2. Provided Education on: . 15:55 XRAY Chest (1 view) In Process Unspecified. EDMS 16:30 Inserted saline lock: 20 gauge in left antecubital area, using aseptic technique. nj1 ,using aseptic technique. Ultrasound guided. Catheter tip well visualized within vasculature during placement. Blood collected. 17:15 Shawn Granados MD is Referral Physician. ms3 17:46 IV discontinued, intact, bleeding controlled. ld1 17:46 No provider procedures requiring assistance completed. ld1 Administered Medications: 16:35 Drug: hydrALAZINE IVP 10 mg IVP once Route: IVP; Site: left upper arm; ld1 17:03 Follow up: BP 184 / 82 tm6 Medication: 17:47 VIS not applicable for this client. ld1 Outcome: 17:16 Discharge ordered by . ms3 17:45 Discharged to home via wheelchair, ld1 17:45 Condition: stable 17:45 Discharge instructions given to patient, Instructed on discharge instructions, follow up and referral plans. medication usage, Demonstrated understanding of instructions, follow-up care, medications, 17:47 Patient left the ED. ld1 Signatures: Dispatcher [employer] EDMS Madelin Márquez rg4 Emerald Newman RN RN ap3 Tayo Wade, DO ms3 Margarita Wade RN RN ld1 Marcy Leos, RN ERICA nj1 Iman Krueger RN RN tm6 Corrections: (The following items were deleted from the chart) 16:38 16:30 Inserted saline lock: 20 gauge in left antecubital area, using aseptic technique. nj1 ,using aseptic technique. Ultrasound guided. Catheter tip well visualized within vasculature during placement. nj1
[2023-07-12 18:31] VITALS: TEMP 98.7
[2023-07-12 18:43] VITALS: O2SAT 96
[2023-07-12 18:44] VITALS: BP 184/82
--- NOTE | 2023-07-13 12:28 | EKG ---
Test Date: 2023-07-12 Test Time: 15:29:40 Salesperson Furniture: CHANDA MEASUREMENT RESULTS: Intervals: Rate: 78 DE: QRSD: 88 QT: 376 QTc: 428 Leland: P: 95 DE: QRS: 230 T: 34 INTERPRETIVE STATEMENTS: Sinus rhythm with premature ventricular or aberrantly conducted complexes Right superior axis deviation ST & T wave abnormality, consider inferior ischemia Abnormal ECG Compared to ECG 07/08/2023 12:08:32 Ventricular premature complex(es) now present Right superior axis now present Possible ischemia now present Left-axis deviation no longer present Prolonged QT interval no longer present ST (T wave) deviation still present Electronically Signed On 07-13-23 12:27:48 CDT by Chad Alvarez
== END 2023-07-12 17:47 | disposition home or self-care (01) ==
LOC: ER 14:50
DX: I13.0 Hypertensive heart and chronic kidney disease with heart failure and stage 1 through stage 4 chronic kidney disease, or unspecified chronic kidney disease (principal); I48.91 Unspecified atrial fibrillation; Z88.0 Allergy status to penicillin; Z95.818 Presence of other cardiac implants and grafts
CPT/HCPCS: 85025; 80048; 36415; 83735; 84484; 71045; J0360; 93005

== ENCOUNTER 2023-07-19 13:58 | Emergency (ER) | payer OTHER ==
--- OUTSIDE RECORDS SUMMARY | 2023-07-19 14:02 | XMS REPORT | Continuity of Care Document ---
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 [...] diabetes 03-08 ity of mellitus mellitus 00:00: [place] with other with other 00 Me dical specified specified Bran ch complicati complicati on on Elevated Elevated Disease Active Unive rs troponin I troponin I 607 it y of level level 00:00: [place] Medical Branch Angina of Angina of Disease Active Uni vers effort effort 5-19 ity of 00:00: [place] 00 Medical Branch [id number] 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] SDOH Social Unive rsity of Connections [facility] Med ical Together Branch History SDOH Social Unive rsity of Connections [facility] [place] [facility] History SDOH Social Unive rsity of Connections [place] Medical Membership Branch History SDOH Social Unive rsity of Connections [place] Medical Meetings Branch Tobacco use and 2023-03-08 2023-03-08 Smokeless Universit y of exposure 00:00:00 00:00:00 tobacco non-user [facility] dical Branch Alcohol intake 2023-03-08 2023-03-08 3 [...] University o f Housing Places 00:00:00 00:00:00 [facility] rafael Lived Branch History SDOH 2023-03-08 2023-03-08 2 University o f Housing Homeless 00:00:00 00:00:00 [facility] dical Last Year Branch Tobacco Comment 2023-03-08 2023-03-08 quit smoking 20 Univ ersity of 00:00:00 00:00:00 yrs ago [facility] Sex Assigned At [birth year] Universit y of 00:00:00 00:00:00 [facility] Smoking Status Start Date Stop Date Source Ex-smoker 2023-03-08 00:00:00 2023-03-08 00:00:00 Universi ty of [facility] Medications Ordered Filled Start Stop Current Ordering Indication Dosage Frequency Signature Comments Components Source Medication Medication Date Date Medication? Clinician (SIG) Name Name insulin Yes [id number] 15U inject 15 U nivers glargine 6-09 Units ity of 100 unit/mL 00:00[place] skin [place] [facility] morning. insulin Yes [id number] 15U inject 15 U nivers glargine 6-09 Units ity of 100 unit/mL 00:00: [place] injection 00 skin in [facility] morning. amLODIPine 2022- No [id number] 10mg Take 1 Univers 10 mg 03-1010 tablet by ity of tablet 00:00: 04:59 mouth in [place] 00 :00 the [facility] Branch for 30 days. metoprolol 2022- No [id number] 50mg Take 1 Univers succinate 03-1010 tablet by ity of XL 50 mg 24 00:00: 04:59 [place] hr tablet 00 :00 the [facility] for 30 days. amLODIPine 2022- No [id number] 10mg Take 1 Univers 10 mg 03-10-10 tablet by ity of tablet 00:00: 04:59 mouth in [place] 00 :00 the Medical morning Branch for 30 days. metoprolol 2022- No [id number] 50mg Take 1 Univers succinate 03-10-10 tablet [...] as tablet 42 :00 (two) Medical times [place] daily with meals. Amlodipine- 2022- No Take [...] Discontinu ed, Routine aspirin 81 2022- No [id number] 81mg Take 1 Univers mg EC 03-09 tablet by ity of tablet 00:00: 04:59 mouth in [place] 00 :00 the Medical morning Branch for 30 days. hydroCHLORO 2022- No [id number] 25mg Take 1 Univers thiazide 25 03-09 tablet by it y of mg tablet 00:00: 04:59 mouth in [place] 00 :00 the Medical morning Branch for 30 days. metFORMIN 2022- No [id number] 1000mg Take 1 Univers 1,000 mg 03-09 tablet by ity o f tablet 00:00: 04:59 mouth in [place] 00 :00 the Medical morning Branch and 1 tablet in the evening. Take with meals. Do all this for 30 days. rosuvastati 2022- No [id number] 10mg Take 1 Univers n 10 mg 03-09 tablet by ity of tablet 00:00: 04:59 mouth at [place] 00 :00 bedtime Medical for 30 Branch days. aspirin 81 2022- No [id number] 81mg Take 1 Univers mg EC 03-09 tablet by ity of tablet 00:00: 04:59 mouth in [place] 00 :00 the Medical morning Branch for 30 days. hydroCHLORO 2022- No [id number] 25mg Take 1 Univers thiazide 25 03-09 tablet by it y of mg tablet 00:00: 04:59 mouth in [place] 00 :00 the Medical morning Branch for 30 days. metFORMIN 2022- No [id number] 1000mg Take 1 Univers 1,000 mg 03-09 tablet by ity o f tablet 00:00: 04:59 mouth in [place] 00 :00 the Medical morning Branch and 1 tablet in the evening. Take with meals. Do all this for 30 days. rosuvastati 2022- No [id number] 10mg Take 1 Univers n 10 mg 03-09 tablet by ity of tablet 00:00: 04:59 mouth at [place] 00 :00 bedtime Medical for 30 Branch days. sulfur 2022- No [id number] 5mL 5 mL, Unive rs hexafluorid 03-08 Intravenou i ty of e microsphr 15:45: 15:45 s, ONCE, 1 [place] (LUMASON) 00 :00 dose, On Medica l injection 5 Mon03/08/23 Br anch mL at 1045, Routine
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 Pulse oximetry [place] Body weight 2023-03-09 08:37:00 102.967 kg [facility] BMI 2023-03-09 08:37:00 30.79 kg/m2 [facility] Body height 2023-03-08 09:35:00 182.9 cm [facility] height 2020-12-03 11:15:00 70 [in_i] [facility] weight 2020-12-03 11:15:00 197 [lb_av] [facility] temperature 2020-12-03 11:15:00 97.6 [degF] [facility] bmi 2020-12-03 11:15:00 28.26 kg/m2 [facility] oximetry 2020-12-03 11:15:00 97 % [facility] blood pressure 2020-12-03 11:15:00 139 mm[Hg] Common Spirit - systolic [facility] blood pressure 2020-12-03 11:15:00 64 mm[Hg] [facility] - diastolic [facility] height 2020-08-24 14:00:00 70 [in_i] [facility] weight 2020-08-24 14:00:00 199.6 [lb_av] [facility] temperature 2020-08-24 14:00:00 98.4 [degF] [facility] bmi 2020-08-24 14:00:00 28.64 kg/m2 [facility] oximetry 2020-08-24 14:00:00 96 % [facility] blood pressure 2020-08-24 14:00:00 197 mm[Hg] [facility] - systolic [facility] blood pressure 2020-08-24 14:00:00 86 mm[Hg] Common [facility] diastolic [facility] Procedures Procedure Date / Time Performing Clinician Source Performed POCT GLUCOSE (AUTOMATED) 2023-03-09 21:33:00 Starla [facility] POCT GLUCOSE (AUTOMATED) 2023-03-09 16:39:00 Starla [facility] POCT GLUCOSE (AUTOMATED) 2023-03-09 12:45:00 Starla [facility] PHOSPHORUS 2023-03-09 09:02:00 Kel Yin [facility] MAGNESIUM 2023-03-09 09:02:00 [facility] 2023-03-09 09:02:00 [facility] HEPATIC FUNCTION PANEL 2023-03-09 09:02:00 Kel Yin [facility] ([id number]) (ALB,T.PRO,BILI Medical Branch T,BU/BC,ALT,AST,ALK PHOS) BASIC METABOLIC PANEL 2023-03-09 09:02:00 Starla Tafoya [facility] (NA, K, CL, CO2, Medical Branch GLUCOSE, BUN, CREATININE, CA) CBC WITH DIFF 2023-03-09 09:02:00 Jagdish Martin [facility] N-TERMINAL PRO-BNP 2023-03-09 09:02:00 Kel Yin [facility] POCT GLUCOSE (AUTOMATED) 2023-03-09 02:08:00 Starla [facility] TROPONIN I 2023-03-08 22:51:[address] [facility] GLYCOSYLATED HEMOGLOBIN 2023-03-08 22:51:00 Jagdish Martin [facility] (A1C) [facility] POCT GLUCOSE (AUTOMATED) 2023-03-08 21:22:00 Starla [facility] POCT GLUCOSE (AUTOMATED) 2023-03-08 16:16:00 Starla [facility] TRANSTHORACIC ECHO (TTE) 2023-03-08 14:29:00 Starla Tafoya [facility] COMPLETE W/ CONTRAST Medical [facility] POCT GLUCOSE (AUTOMATED) 2023-03-08 12:39:00 Starla [facility] PHOSPHORUS 2023-03-08 11:24:[address] [facility] TROPONIN I 2023-03-08 11:24:[address] [facility] N-TERMINAL PRO-BNP 2023-03-08 11:24:00 Candi Patel [facility] XR CHEST 1 VW 2023-03-08 06:27:00 Temi Holloway [facility] [place] HB ECG ROUTINE & RHYTHM 2023-03-08 05:39:37 Temi Holloway [facility] LIPASE 2023-03-08 05:39:00 Temi Holloway [facility] [place] TROPONIN I 2023-03-08 05:39:00 Temi Holloway [facility] [place] THYROID STIMULATING 2023-03-08 05:39:00 Starla Tafoya [facility] HORMONE [facility] Branch COMP. METABOLIC PANEL 2023-03-08 05:39:00 Temi Holloway [facility] ([id number]) Medical [place] LIPID PANEL 2023-03-08 05:39:00 Starla Tafoya [facility] ([id number])(TOTAL Medical Branch CHOLESTEROL, TRIGLYCERIDES, HDL) CBC WITH DIFF 2023-03-08 05:39:00 Temi Holloway [facility] [place] GLYCOSYLATED HEMOGLOBIN 2023-03-08 05:39:00 [facility] (A1C) Medical [place] Encounters Start End Encounter Admission Attending Care Care Encounter Source Date/Time Date/Time Type Type Clinicians Facility Department ID 2021-10-27 [facility] [id number] Common 12:15:25 Kapil [id number] 2021-10-27 Outpatient [facility] [id number] Common 12:07:45 15231 [facility] 2023-03-10 2023-03-10 Transition CHRISTOPHER Alcocer [id number] Univers 00:00:00 00:00:00 of Care Jose WHITE 350.1.13.10 ity of MIHIR 4.2.7.2.686 [facility] [id number] [facility] 403 Branch 2023-03-08 2023-03-09 Emergency Romel Montez [facility] 1.2. 840.114 [id number] Univers 00:29:00 19:46:00 Starla Tafoya 350.1.13.10 ity of Kel Yin 4.2.7.2.686 [facility] [id number] [facility] 081 Branch 2023-03-08 2023-03-09 Outpatient [facility] [id number] Univers 00:29:00 19:46:00 KEL [facility] 2022-05-31 2022-05-31 Outpatient SPEEDY Dial [facility] [id number] [facility] 08:52:00 08:52:00 Jose Reyes [facility] 2022-05-11 2022-05-11 Outpatient SPEEDY Rae [facility] [id number] [facility] 10:11:00 10:11:00 Chad 67 [facility] 2022-05-11 2022-05-11 Outpatient SPEEDY RaeCL [id number] 0-2 [facility] 10:11:00 10:11:00 Chad [id number] [facility] 2020-12-03 2020-12-03 OFFICE STLMLC STLMLC [id number] Co mmon 00:00:00 00:00:00 VISIT Spirit ESTAB PT - CHI LEVEL 2 [facility] 2020-08-24 2020-08-24 OFFICE STLMLC STLMLC [id number] Co mmon 00:00:00 00:00:00 VISIT NEW Spir it PT LEVEL 4 - [facility] Results Test Description Test Time Test Comments Results Result Comments Source POCT GLUCOSE (AUTOMATED) 2023-03-09 21:35:08 Test Item Value Reference Range Interpretation Comme nts POCT GLU (test code = 7430659921) 149 mg/dL 70-110 H Lab Interpretation (test code = 19285-6) Abnormal [facility] GLUCOSE (AUTOMATED)2023-03-09 16:43:52 Test Item Value Reference Range Interpretation Comments POCT GLU (test code = 6315388765) 138 mg/dL 70-110 H Lab Interpretation (test code = Abnormal 24255-6) [facility] GLUCOSE (AUTOMATED)2023-03-09 12:55:44 Test Item Value Reference Range Interpretation Comments POCT GLU (test code = 7867200291) 126 mg/dL 70-110 H Lab Interpretation (test code = Abnormal 59997-9) [facility] GLUCOSE (AUTOMATED)2023-03-09 02:09:42 Test Item Value Reference Range Interpretation Comments POCT GLU (test code = 7469400586) 115 mg/dL 70-110 H Lab Interpretation (test code = Abnormal 85765-0) [facility] GLUCOSE (AUTOMATED)2023-03-08 21:32:42 Test Item Value Reference Range Interpretation Comments POCT GLU (test code = 2670622109) 266 mg/dL 70-110 H Lab Interpretation (test code = Abnormal 98420-5) [facility] GLUCOSE (AUTOMATED)2023-03-08 16:26:44 Test Item Value Reference Range Interpretation Comments POCT GLU (test code = 9067908584) 195 mg/dL 70-110 H Lab Interpretation (test code = Abnormal 18168-6) [facility] GLUCOSE (AUTOMATED)2023-03-08 12:40:58 Test Item Value Reference Range Interpretation Comments POCT GLU (test code = 1488992157) 179 mg/dL 70-110 H Lab Interpretation (test code = Abnormal 41871-2) [facility]TSH)2023-03-08 11:56:52 Test Item Value Reference Range Interpretation Comments TSH (test code = 5.09 See_Comment H Biotin has been 8769348928) reported to cau se a negative bias, interpret resul ts relative to pat randal's use of biotin. [Automated mess age] The system POLYBONA generated this result transmitted ref erence range: 0.45 - 4 .70 mIU/L. The refe rence range was not u sed to interpret this result as normal/abnor mal. Lab Interpretation (test Abnormal code = 71957-6) [facility] Hem[facility] (A1C)2023-03-08 11:27:39 Test Item Value Reference Range Interpretation Comments HGB A1C (test code = 9.3 % 4.0-5.7 H 4548-4) TRINIDAD (test code = TRINIDAD) Reference RangesNormal: <5.7%Prediabetes: 5.7 - 6.4%Diabetes: > 6.5% Lab Interpretation (test Abnormal code = 35052-5) [facility] (Total Cholesterol, Triglycerides, HDL)2023-03-08 11:14:15 Test Item Value Reference Range Interpretation Comments CHOL (test code = 7506230129) 166 mg/dL 120-200 HDL (test code = 1708790206) 51 mg/dL >=40 HDLC RATIO (test code = 4743233892) 3.3 <=5.0 TRIG (test code = 6138935189) 83 mg/dL 30-170 LDL CHOL (test code = 52643-1) 98 mg/dL <=160 VLDL (test code = 0132020802) 17 mg/dL 5-60 Lab Interpretation (test code = Normal 15540-2) [facility] [id number] 06:21:21 Test Item Value Reference Range Interpretation Comments TROPONIN I (test code = 0.075 ng/mL <=0.034 H 4470238889) TRINIDAD (test code = TRINIDAD) Reference (Normal) [...] biotin. Lab Interpretation Abnormal (test code = 54119-3) [facility] METABOLIC PANEL (04691)2023-03-08 06:10:20 Test Item Value Reference Range Interpretation Comments NA (test code = 135 mmol/L 135-145 8968275066) K (test code = 4.3 mmol/L 3.5-5.0 5568025158) CL (test code = 104 mmol/L 98-108 1387431403) CO2 TOTAL (test code = 26 mmol/L 23-31 0574930306) AGAP (test code = 5 2-16 8106766340) BUN (test code = 27 mg/dL 7-23 H 6619591543) GLUCOSE (test code = 243 mg/dL 70-110 H 1029650656) CREATININE (test code = 2.15 mg/dL 0.60-1.25 H 5772045993) TOTAL BILI (test code = 0.8 mg/dL 0.1-1.7 9450466735) CALCIUM (test code = 8.2 mg/dL 8.6-10.6 L 0173198444) T PROTEIN (test code = 6.0 g/dL 6.3-8.2 L 9053800792) ALBUMIN (test code = 2.5 g/dL 3.5-5.0 L 2571276734) ALK PHOS (test code = 60 U/L 34-122 5789706588) ALTv (test code = 17 U/L 5-50 1742-6) AST(SGOT) (test code = 26 U/L 13-40 7791130464) eGFR (test code = 30.1 mL/min/1.73m2 2345140377) TRINIDAD (test code = TRINIDAD) Association of [...] tests). Lab Interpretation Abnormal (test code = 33401-5) [facility], [id number] 06:09:44 Test Item Value Reference Range Interpretation Comments LIPASE (test code = 4736382319) 101 U/L 0-220 Lab Interpretation (test code = Normal 63757-0) [facility] WITH [id number] 05:51:59 Test Item Value Reference Range Interpretation [...] (test code = 56.7 fL 38.5-51.6 H 23943-2) RDW-CV (test code = 19.4 % 12.1-15.4 H 788-0) PLT (test code = 232 See_Comment [Automated 777-3) message] The sy stem which generated this result transmitted reference range : 150 - 328 10*3/ ?L. The reference r michael was not used to interpret this result as normal/abnormal . MPV (test code = 10.5 fL 9.8-13.0 10460-6) NRBC/100 WBC (test 0.0 See_Comment [Automat ed code = 7084723057) message] The system which generated this result transmitted reference range : 0.0 - 10.0 /100 WBCs. The refer ence range was not u sed to interpret th is result as normal/abnormal . NRBC x10^3 (test code See_Comment [Auto mated = 9313048071) message] The s ystem which generated this result transmitted reference range : 10*3/?L. The reference range was not used to interpret this result as normal/abnormal . GRAN MAT (NEUT) % 68.1 % (test code = 770-8) IMM GRAN % (test code 0.20 % = 9456463595) LYMPH % (test code = 20.0 % 736-9) MONO % (test code = 9.2 % 5905-5) EOS % (test code = 1.6 % 713-8) BASO % (test code = 0.9 % 706-2) GRAN MAT x10^3(ANC) 3.85 10*3/uL 1.99-6.95 (test code = 7106934918) IMM GRAN x10^3 (test 0.00-0.06 code = 5198137899) LYMPH x10^3 (test code 1.13 10*3/uL 1.09-3.23 = 731-0) MONO x10^3 (test code 0.52 10*3/uL 0.36-1.02 = 742-7) EOS x10^3 (test code = 0.09 10*3/uL 0.06-0.53 711-2) BASO x10^3 (test code 0.05 10*3/uL 0.01-0.09 = 704-7) Lab Interpretation Abnormal (test code = 21824-2) [facility] Asymptomatic IH [id number] 10:17:00 Test Item Value Reference Range Interpretation [...] y tests. - CTA HEART W CN [id number] 00:00:00 [facility] DAGMAR GONSALESName: ALBERT SANCHEZ : 1950 Sex: M Name: ALBERT SANCHEZ [facility] Dagmar Gonsales : 1950 Age/S: 72 / M [address] [place] [address] Blvd Unit #: [id number] Loc: [place] [address] Phys: Jose Reinoso HEEL SORTER Acct: [id number] Dis Date: Status: REG CLI PHONE #: [phone] Exam Date: 05/31/2022 1012 FAX #: [phone] Reason: EXAMS: CPT CODE: [id number] CTA HEART W CN ART/GRAFTS 85879 PROCEDURE INFORMATION: Exam: CTA Heart And Coronary [...] 1 Signed Report (CONTINUED) Name: ALBERT SANCHEZ [facility] : 1950 Age/S: 72 / M [address] [place] [address] Blvd Unit #: [id number] Loc: [place] [address] Phys: Jose Reinoso [facility] Acct: [id number] Dis Date: Status: REG CLI PHONE #: [phone] Exam Date: 05/31/2022 1012 FAX #: [phone] Reason: EXAMS: CPT CODE: [id number] CTA HEART W CN ART/GRAFTS 57454 (Continued) mitral annular calcification. PERICARDIUM: No evidence [...] 2 Signed Report (CONTINUED) Name: ALBERT SANCHEZ [facility] : 1950 Age/S: 72 / M [address] [place] [address] Unit #: [id number] Loc: [place] [address] Phys: Jose Reinoso HEEL SORTER Acct: [id number] Dis Date: Status: REG CLI PHONE #: [phone] Exam Date: 05/31/2022 1012 FAX #: [phone] R riky: EXAMS: CPT CODE: [id number] CTA HEART W CN ART/GRAFTS 18502 (Continued) Small uncomplicated fat containing umbilical hernia. [...] 3 Signed Report- CTA ABD PEL W [id number] 00:00:00 [facility] : 1950 Sex: M Name: ALBERT SANCHEZ [facility] : 1950 Age/S: 72 / M [address] [place] [address] Blvd Unit #: [id number] Loc: [place] [address] Phys: Jose Reinoso Acct: [id number] Dis Date: Status: REG CLI PHONE #: [phone] Exam Date: 05/31/2022 1012 FAX #: [phone] Reason: 135.0, SEVERE AORTIC STENOSIS. EXAMS: CPT CODE: [id number] CTA ABD PEL W CONT 65085 PROCEDURE INFORMATION: Exam: CTA Heart And Coronary [...] 1 Signed Report (CONTINUED) Name: ALBERT SANCHEZ [facility] : 1950 Age/S: 72 / M [address] [place] [address] Blvd Unit #: [id number] Loc: [place] [address] Phys: Jose Reinoso HEEL SORTER Acct: [id number] Dis Date: Status: REG CLI PHONE #: [phone] Exam Date: 05/31/2022 1012 FAX #: [phone] Reason: 135.0, SEVERE AORTIC STENOSIS. EXAMS: CPT CODE: [id number] CTA ABD PEL W CONT 66907 (Continued) mitral annular calcification. PERICARDIUM: No evidence [...] 2 Signed Report (CONTINUED) Name: ALBERT SANCHEZ [facility] Dagmar Gonsales : 1950 Age/S: 72 / M [address] [place] [address] Unit #: [id number] Loc: [place] [address] Phys: Jose Reinoso Acct: [id number] Dis Date: Status: REG CLI PHONE #: [phone] Exam Date: 05/31/2022 1012 FAX #: [phone] Reason: 135.0, SEVERE AORTIC STENOSIS. EXAMS: CPT CODE: [id number] CTA ABD PEL W CONT 67082 (Continued) Small uncomplicated fat containing umbilical hernia. [...] (1724) PAGE 3 Signed Report- CT ANGIO [id number] 00:00:00[facility] DAGMAR GONSALESName: ALBERT SANCHEZ : 1950 Sex: M Name: ALBERT SANCHEZ [facility] [place] : 1950 Age/S: 72 / M [address] [place] [address] Blvd Unit #: [id number] Loc: [place] [address] Phys: Jose Reinoso HEEL SORTER Acct: [id number] Dis Date: Status: REG CLI PHONE #: [phone] Exam Date: 05/31/2022 1012 FAX #: [phone] Reason: 135.0 , SEVERE AORTIC STENOSIS. EXAMS: CPT CODE: [id number] CT ANGIO CHEST 73787 PROCEDURE INFORMATION: Exam: CTA Heart And Coronary [...] 1 Signed Report (CONTINUED) Name: ALBERT SANCHEZ [facility] : 1950 Age/S: 72 / M [address] [place] [address] Blvd Unit #: [id number] Loc: [place] [address] Phys: Jose Reinoso [facility] Acct: [id number] Dis Date: Status: REG CLI PHONE#: [phone] Exam Date: 05/31/2022 1012 FAX #: [phone] Reason: 135.0 , SEVERE AORTIC STENOSIS. EXAMS: CPT CODE: [id number] CT ANGIO CHEST 49186 (Continued) mitral annular calcification. PERICARDIUM: No evidence [...] 2 Signed Report (CONTINUED) Name: ALBERT SANCHEZ [facility] : 1950 Age/S: 72 / M [address] [place] [address] Blvd Unit #: [id number] Loc: [place] [address] Phys: Jose Reinoso [facility] Acct: [id number] Dis Date: Status: REG CLI PHONE #: [phone] ExamDate: 05/31/2022 1012 FAX #: [phone] Reason: 135.0 , SEVERE AORTIC STENOSIS. EXAMS: CPT CODE: [id number] CT ANGIO CHEST 07775 (Continued) Small uncomplicated fat containing umbilical hernia. 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 CBC W/AUTO [id number] 16:09:00 Test Item Value Reference Range Interpretation [...]
[2023-07-19] MEDS ORDERED: cloNIDine HCL 0.1 MG TAB ONE (14:49)
--- NOTE | 2023-07-19 15:59 | EDPHYS ---
Physician Documentation [facility] Name: Julianna Kearns Age: 73 yrs Sex: Male : 1950 Arrival Date: 07/19/2023 Time: 13:58 Bed 5 Private MD: ED Physician Kei Cantrell HPI: 07/19 15:01 73-year-old male with history of atrial fibrillation, CHF, diabetes, CAD including sp3 stent placement, hypertension now presents to the ED referred from wound care clinic by Dr. Granados for incidental finding of hypertension. Patient is completely asymptomatic denies headache, chest pain, shortness of breath, back pain, or any other signs or symptoms related to his hypertension at this time. He states that his blood pressure at home has been running in the 200 range. 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 Alvarez. He states he would not of come to the ER had not been referred by the wound care clinic. He denies any other symptoms at this time and ROS is otherwise negative.. Historical: - Allergies: 14:17 PENICILLINS; mb9 - PMHx: 14:17 Atrial Fib; caridac stent; CHF; Diabetes - NIDDM; Hypercholesterolemia; Hypertension; mb9 - PSHx: 14:17 cardiac stent; mb9 - Immunization history:: Adult Immunizations up to date. - Social history:: Smoking status: Patient denies any tobacco usage or history of. ROS: 15:02 Constitutional: Negative for fever, chills, and weight loss, Eyes: Negative for injury, sp3 pain, redness, and discharge, ENT: Negative for injury, pain, and discharge, Neck: Negative for injury, pain, and swelling, Cardiovascular: Negative for chest pain, palpitations, and edema, Respiratory: Negative for shortness of breath, cough, wheezing, and pleuritic chest pain, Abdomen/GI: Negative for abdominal pain, nausea, vomiting, diarrhea, and constipation, Back: Negative for injury and pain, MS/Extremity: Negative for injury and deformity, Skin: Negative for injury, rash, and discoloration, Neuro: Negative for headache, weakness, numbness, tingling, and seizure, Psych: Negative for depression, anxiety, suicide ideation, homicidal ideation, and hallucinations, Allergy/Immunology: Negative for hives, rash, and allergies, Endocrine: Negative for neck swelling, polydipsia, polyuria, polyphagia, and marked weight changes, Hematologic/Lymphatic: Negative for swollen nodes, abnormal bleeding, and unusual bruising, 15:02 All other systems are negative, Exam: 15:02 Constitutional: This is a well developed, well nourished patient who is awake, alert, sp3 and in no acute distress. Head/Face: Normocephalic, atraumatic. Eyes: Pupils equal round and reactive to light, extra-ocular motions intact. Lids and lashes normal. Conjunctiva and sclera are non-icteric and not injected. Cornea within normal limits. Periorbital areas with no swelling, redness, or edema. Neck: Trachea midline, no thyromegaly or masses palpated, and no cervical lymphadenopathy. Supple, full range of motion without nuchal rigidity, or vertebral point tenderness. No Meningismus. Chest/axilla: Normal chest wall appearance and motion. Nontender with no deformity. No lesions are appreciated. Cardiovascular: Regular rate and rhythm with a normal S1 and S2. No gallops, murmurs, or rubs. Normal PMI, no JVD. No pulse deficits. Respiratory: Lungs have equal breath sounds bilaterally, clear to auscultation and percussion. No rales, rhonchi or wheezes noted. No increased work of breathing, no retractions or nasal flaring. Abdomen/GI: Soft, non-tender, with normal bowel sounds. No distension or tympany. No guarding or rebound. No evidence of tenderness throughout. Back: No spinal tenderness. No costovertebral tenderness. Full range of motion. Skin: Warm, dry with normal turgor. Normal color with no rashes, no lesions, and no evidence of cellulitis. MS/ Extremity: Pulses equal, no cyanosis. Neurovascular intact. Full, normal range of motion. Neuro: Awake and alert, GCS 15, oriented to person, place, time, and situation. Cranial nerves II-XII grossly intact. Motor strength 5/5 in all extremities. Sensory grossly intact. Cerebellar exam normal. Normal gait. Psych: Awake, alert, with orientation to person, place and time. Behavior, mood, and affect are within normal limits. 15:03 ECG was reviewed by the Attending Physician. EKG demonstrates normal sinus rhythm at 74 sp3 bpm with normal intervals, normal QRS, leftward axis, nonspecific diffuse ST/T changes without evidence of acute ischemia. Vital Signs: 14:16 BP 217 / 84; Pulse 73; Resp 16; Temp 97.5; Pulse Ox 96% ; Weight 85.73 kg; Height 6 ft. mb9 0 in. ; Pain 0/10; 14:20 BP 216 / 99; Pulse 80; Resp 18; Pulse Ox 97% ; ko1 14:21 BP 208 / 77; mb9 14:30 BP 211 / 91; Pulse 71; Resp 18; Temp 98; Pulse Ox 97% on R/A; ko1 15:23 BP 220 / 95; Pulse 75; Resp 16; Pulse Ox 97% ; ko1 15:37 BP 219 / 100; Pulse 74; Resp 18; Pulse Ox 99% ; ko1 14:16 Body Mass Index 25.63 (85.73 kg, 182.88 cm) mb9 14:16 Pain Scale: Adult mb9 MDM: 14:18 Patient medically screened. sp3 15:02 Data reviewed: vital signs, nurses notes, old medical records, EKG. sp3 15:04 ED course: 73-year-old male with incidental hypertension finding. Patient has no other sp3 signs of hypertensive urgency and we will administer clonidine p.o. and recheck blood pressure with subsequent discharge home to his cardiology and primary care follow-up for further control.. 15:58 ED course: Blood pressure remains in the 200 range. We will discharge him home at this sp3 time as per patient request. Patient remains asymptomatic with no evidence of hypertensive urgency including no headache, no chest pain, no shortness of breath, anginal equivalent or other symptoms at this time.. 07/19 14:34 Order name: EKG; Complete Time: 14:34 sp3 07/19 14:34 Order name: EKG - Nurse/Tech; Complete Time: 14:48 sp3 07/19 14:34 Order name: Recheck Blood Pressure; Complete Time: 14:49 sp3 Administered Medications: 14:35 Drug: cloNIDine PO 0.2 mg PO once Route: PO; ko1 Disposition Summary: 07/19/23 15:59 Discharge Ordered Notes: Location: Home sp3 Condition: Stable sp3 Diagnosis - Hypertension, asymptomatic sp3 Followup: sp3 - With: Private Physician - When: Upon discharge from the Emergency Department - Reason: Recheck today's complaints, Continuance of care Discharge Instructions: - Discharge Summary Sheet sp3 - Hypertension, Adult sp3 Forms: - Medication Reconciliation Form sp3 - Thank You Letter sp3 - Antibiotic Education sp3 - Prescription Opioid Use sp3 - Patient Portal Instructions sp3 - Leadership Thank You Letter sp3 Signatures: Kei Cantrell MD MD sp3 Olivia Catherine RN RN ko1 Marva Byers RN RN mb9
--- NOTE | 2023-07-19 15:59 | ER ---
Nurse's Notes [facility] Name: Julianna Kearns Age: 73 yrs Sex: Male : 1950 Arrival Date: 07/19/2023 Time: 13:58 Bed 5 Private MD: Diagnosis: Hypertension, asymptomatic Presentation: 07/19 14:16 Chief complaint: Patient states: "I was at Dr. Cervantes office today and my BP was mb9 235/107. He sent me here. I don't have any pain or symptoms. I've been taking my BP medication as prescribed but don't know the name of it. They usually give me Hydralazine when it's high and it will bring it down". Coronavirus screen: At this time, the client does not indicate any symptoms associated with coronavirus-19. Ebola Screen: No symptoms or risks identified at this time. Initial Sepsis Screen: Does the patient meet any 2 criteria? No. Patient's initial sepsis screen is negative. Does the patient have a suspected source of infection? No. Patient's initial sepsis screen is negative. Risk Assessment: Do you want to hurt yourself or someone else? Patient reports no desire to harm self or others. Onset of symptoms was July 19, 2023. 14:16 Method Of Arrival: Wheelchair mb9 14:16 Acuity: VERONICA 3 mb9 Triage Assessment: 14:19 General: Appears in no apparent distress. Behavior is calm, cooperative. Pain: Denies mb9 pain. EENT: No signs and/or symptoms were reported regarding the EENT system. Neuro: Galdamez Agitation-Sedation Scale (RASS): 0 - Alert and Calm Level of Consciousness is awake, alert, obeys commands, Oriented to person, place, time, situation, Appropriate for age. Cardiovascular: Denies chest pain, Patient's skin is warm and dry. Respiratory: Airway is patent Respiratory effort is even, unlabored, Respiratory pattern is regular, symmetrical. GI: No signs and/or symptoms were reported involving the gastrointestinal system. : No signs and/or symptoms were reported regarding the genitourinary system. Derm: Skin is pink, warm \\T\\ dry. Musculoskeletal: Range of motion: intact in all extremities. Historical: - Allergies: 14:17 PENICILLINS; mb9 - PMHx: 14:17 Atrial Fib; caridac stent; CHF; Diabetes - NIDDM; Hypercholesterolemia; Hypertension; mb9 - PSHx: 14:17 cardiac stent; mb9 - Immunization history:: Adult Immunizations up to date. - Social history:: Smoking status: Patient denies any tobacco usage or history of. Screenin:30 [facility] ED Fall Risk Assessment (Adult) History of falling in the last 3 months, ko1 including since admission No falls in past 3 months (0 pts) Confusion or Disorientation No (0 pts) Intoxicated or Sedated No (0 pts) Impaired Gait Yes (1 pt) Mobility Assist Device Used Yes (1 pt) Altered Elimination No (0 pt) Score/Fall Risk Level 0 - 2 = Low Risk Oriented to surroundings, Maintained a safe environment, Educated pt \\T\\ family on fall prevention, incl call for assistance when getting out of bed, Assessed \\T\\ reinforced patient's understanding of fall precautions, Provided non-skid footwear, Hourly rounding (assess needs \\T\\ fall precautionary measures) done, Used ambulatory aids as needed (educated on \\T\\ assisted with), Used gait belt as appropriate. Abuse screen: Denies threats or abuse. Denies injuries from another. Nutritional screening: No deficits noted. Tuberculosis screening: No symptoms or risk factors identified. Assessment: 14:20 Neuro: No deficits noted. Cardiovascular: high blood pressure. Respiratory: No deficits ko1 noted. GI: No deficits noted. : No deficits noted. EENT: No deficits noted. Derm: No deficits noted. Musculoskeletal: No deficits noted. Vital Signs: 14:16 BP 217 / 84; Pulse 73; Resp 16; Temp 97.5; Pulse Ox 96% ; Weight 85.73 kg; Height 6 ft. mb9 0 in. ; Pain 0/10; 14:20 BP 216 / 99; Pulse 80; Resp 18; Pulse Ox 97% ; ko1 14:21 BP 208 / 77; mb9 14:30 BP 211 / 91; Pulse 71; Resp 18; Temp 98; Pulse Ox 97% on R/A; ko1 15:23 BP 220 / 95; Pulse 75; Resp 16; Pulse Ox 97% ; ko1 15:37 BP 219 / 100; Pulse 74; Resp 18; Pulse Ox 99% ; ko1 14:16 Body Mass Index 25.63 (85.73 kg, 182.88 cm) mb9 14:16 Pain Scale: Adult mb9 ED Course: 14:01 Patient arrived in ED. mg5 14:05 Kei Cantrell MD is Attending Physician. sp3 14:17 Triage completed. mb9 14:19 Arm band placed on. mb9 14:24 Olivia Catherine, RN is Primary Nurse. ko1 14:30 Patient has correct armband on for positive identification. Bed in low position. Call ko1 light in reach. Side rails up X2. Pulse ox on. NIBP on. Door closed. Noise minimized. Lights dimmed. Warm blanket given. 16:10 Provided Education on: na. ko1 16:10 No provider procedures requiring assistance completed. Patient did not have IV access ko1 during this emergency room visit. Administered Medications: 14:35 Drug: cloNIDine PO 0.2 mg PO once Route: PO; ko1 Medication: 16:10 VIS not applicable for this client. ko1 Outcome: 15:59 Discharge ordered by . sp3 16:10 Discharged to home via wheelchair, with family, ko1 16:10 Condition: improved 16:10 Discharge instructions given to patient, family, Instructed on discharge instructions, follow up and referral plans. medication usage, Demonstrated understanding of instructions, follow-up care, 16:19 Patient left the ED. ko1 Signatures: Kei Cantrell MD MD sp3 Olivia Catherine, RN RN ko1 Marva Byers RN RN mb9 Gisela Calles mg5 Corrections: (The following items were deleted from the chart) 14:20 14:16 Chief complaint: Patient states: "I was at Dr. Cervantes office today and my BP was mb9 235/107. He sent me here. I don't have any pain or symptoms. I've been taking my BP medication as prescribed." mb9 14:21 14:16 Acuity: VERONICA 2 mb9 mb9
[2023-07-19 18:54] VITALS: TEMP 98
[2023-07-19 18:57] VITALS: BP 219/100; O2SAT 99
--- NOTE | 2023-07-20 13:38 | EKG ---
Test Date: 2023-07-19 Test Time: 14:44:21 Progressive Care Manager: GERMÁN MEASUREMENT RESULTS: Intervals: Rate: 74 GA: 166 QRSD: 88 QT: 384 QTc: 426 [place]: P: 76 GA: 166 QRS: -34 T: 124 INTERPRETIVE STATEMENTS: Normal sinus rhythm Possible Left atrial enlargement Left axis deviation Abnormal QRS-T angle, consider primary T wave abnormality Abnormal ECG Compared to ECG 07/12/2023 15:29:40 Left-axis deviation now present T-wave abnormality now present Ventricular premature complex(es) no longer present Right superior axis no longer present ST (T wave) deviation no longer present Possible ischemia no longer present Electronically Signed On 07-20-23 13:36:50 CDT by Chad Alvarez
== END 2023-07-19 16:19 | disposition home or self-care (01) ==
LOC: ER 13:58
DX: I10 Essential (primary) hypertension (principal); I50.9 Heart failure, unspecified; I48.91 Unspecified atrial fibrillation; E11.9 Type 2 diabetes mellitus without complications; Z88.0 Allergy status to penicillin; Z95.818 Presence of other cardiac implants and grafts
CPT/HCPCS: 93005

== ENCOUNTER → 2023-11-20 | Emergency (ER) | payer OTHER ==
[~2023-11-20] MED LIST: ALBUTEROL 2.5 MG/3 ML NEB SOL ONE; ASPIRIN 81 MG CHEWABLE TABLET ONE; INSULIN REGULAR (HUMAN) 100 UNIT/ML ONE; NA CHLORIDE 0.9% 250 ML ONE; SOD POLYSTYREN SUL 15 GM/60 ML UCUP ONE
--- OUTSIDE RECORDS SUMMARY | 2023-11-20 09:12 | XMS REPORT | Continuity of Care Document ---
Author Name Unknown Address [address] [facility] [place] [address] [facility] Address [address] [facility] [address] [place] [address] Care Team Providers Care Marketing Systems Manager Name Role Phone KAPIL DONIS Primary Care Physician UnavailKapil Landaverde Attending Clinician Unavailable Michael Orozco Attending Clinician Loc Alcocer RN, Jose Lzao Attending Clinician Unavail able Romel Yu Attending Clinician [phone] Starla Tafoya MD Attending Clinician [phone] Kel Yin MD Attending Clinician [phone] KEL YIN Attending Clinician Unavailable Brissa Reinoso Attending Clinician Unavaila Chad Ospina Attending Clinician Unavailable Physician, No Primary or Family Admitting Clinic joe Unavailable Starla Tafoya MD Admitting Clinician [phone] STARLA TAFOYA Admitting Clinician Unavailable Payers Payer Name Policy Type Policy Number Effective Date Expirati on Date Source [place] [id number] [facility] Problems Condition Name Condition Details Condition Category Status Onset Date Resolution Date Last Treatment Date Treating Clinician Comments Source Nausea and vomiting in adult Nausea and vomiting in adult Disease Active 03-08 00:00: 00 [facility] MULLER (dyspnea on exertion) MULLER (dyspnea on exertion) Disease Active 03-08 00:00: 00 [facility] Coronary artery disease involving [place] coronary artery of [place] heart with angina pectoris Coronary artery disease involving [place] coronary artery of [place] heart with angina pectoris Disease Active 03-08 00:00: 00 [facility] Dyslipidem ia Dyslipidem ia Disease Active 03-08 00:00: 00 [facility] Uncontroll ed hypertensi on Uncontroll ed hypertensi on Disease Active 03-08 00:00: 00 [facility] Chronic heart failure with preserved ejection fraction Chronic heart failure with preserved ejection fraction Disease Active 03-08 00:00: 00 [facility] PAF (paroxysma l atrial fibrillati on) PAF (paroxysma l atrial fibrillati on) Disease Active 03-08 00:00: 00 [facility] Type 2 diabetes mellitus with other specified complicati on Type 2 diabetes mellitus with other specified complicati on Disease Active 03-08 00:00: 00 [facility] Elevated troponin I level Elevated troponin I level Disease Active 03-08 00:00: 00 [facility] Angina of effort Angina of effort Disease Active 02-17 00:00: 00 [facility] [id number] ED (erectile dysfunctio n) of organic origin Problem Active [facility] [id number] Prostate nodule Problem Active [facility] [id number] Urge incontinen ce Problem Active [facility] [id number] Lower urinary tract symptoms (LUTS) Problem Active [facility] Allergies, Adverse Reactions, Alerts Allergy Name Allergy Type Status Severity Reaction(s) Onset Date Inactive Date Treating Clinician Comments Source Penicill ins DA Active SV HIVES 05-06 00:00: 00 [facility] Penicill ins Propensi ty to adverse reaction s Active Rash 2015-0 - 00:00: 00 [facility] PENICILL INS Drug Class Active Rash 0 -19 00:00: 00 [facility] Social History Social Habit Start Date Stop Date Quantity Comments Source History of tobacco use Passive smoker [facility] History SDOH Alcohol Std Drinks [facility] History SDOH Alcohol Binge [facility] History SDOH Social Connections Get Together [facility] History SDOH Social Connections Jainism [facility] History SDOH Social Connections Membership [facility] History SDOH Social Connections Meetings [facility] Tobacco use and exposure 2023-03-08 00:00:00 2023-03-08 00:00:00 Smokeless tobacco non-user [facility] Alcohol intake 2023-03-08 00:00:00 2023-03-08 00:00:00 3 /d [facility] History SDOH Alcohol Frequency 2023-03-08 00:00:00 2023-03-08 00:00:00 1 [facility] History SDOH Social Connections Phone 2023-03-08 00:00:00 2023-03-08 00:00:00 5 [facility] History SDOH Social Connections Living 2023-03-08 00:00:00 2023-03-08 00:00:00 3 [facility] History SDOH Financial 2023-03-08 00:00:00 2023-03-08 00:00:00 5 [facility] History SDOH Food Worry 2023-03-08 00:00:00 2023-03-08 00:00:00 1 [facility] History SDOH Food Scarcity 2023-03-08 00:00:00 2023-03-08 00:00:00 1 [facility] History SDOH Transport Med 2023-03-08 00:00:00 2023-03-08 00:00:00 2 [facility] History SDOH Transport Non-Med 2023-03-08 00:00:00 2023-03-08 00:00:00 2 [facility] History SDOH Housing Unable to Pay 2023-03-08 00:00:2023-03-08 00:00:00 2 [facility] History SDOH Housing Places Lived 2023-03-08 00:00:00 2023-03-08 00:00:00 1 [facility] History SDOH Housing Homeless Last Year 2023-03-08 00:00:00 2023-03-08 00:00:00 2 [facility] Tobacco Comment 2023-03-08 00:00:00 2023-03-08 00:00:00 quit smoking 20 yrs ago [facility] Sex Assigned At 1950 00:00:00 1950 00:00:00 [facility] Smoking Status Start Date Stop Date Source Ex-smoker 2023-03-08 00:00:00 2023-03-08 00:00:00 [facility] Medications Ordered Medication Name Filled Medication Name Start Date Stop Date Current Medication? Ordering Clinician Indication Dosage Frequency Signature (SIG) Comments Components Source insulin glargine 100 unit/mL injection 03-10 00:00: 00 Yes [id number] 15U inject 15 Units under the skin in the morning. [facility] insulin glargine 100 unit/mL injection 03-10 00:00: 00 Yes [id number] 15U inject 15 Units under the skin in the morning. [facility] amLODIPine 10 mg tablet 03-10 00:00: 00 04-10 04:59 :00 No [id number] 10mg Take 1 tablet by mouth in the morning for 30 days. [facility] metoprolol succinate XL 50 mg 24 hr tablet 03-10 00:00: 00 04-10 04:59 :00 No [id number] 50mg Take 1 tablet by mouth in the morning for 30 days. [facility] amLODIPine 10 mg tablet 03-10 00:00: 00 04-10 04:59 :00 No [id number] 10mg Take 1 tablet by mouth in the morning for 30 days. [facility] metoprolol succinate XL 50 mg 24 hr tablet 03-10 00:00: 00 04-10 04:59 :00 No [id number] 50mg Take 1 tablet by mouth in the morning for 30 days. [facility] glimepiride (AMARYL) 4 mg tablet 03-09 19:56: 26 Yes 4mg Take 4 mg by mouth daily with breakfast. [facility] ALPRAZolam (XANAX) 1 mg tablet 03-09 19:56: 26 Yes 1mg Take 1 mg by mouth 3 (three) times daily. [facility] omega-3 fatty acids-vitam in E (FISH OIL) 1,000 mg capsule 03-09 19:56: 26 Yes 1g Take 1 g by mouth daily. [facility] glimepiride (AMARYL) 4 mg tablet 03-09 19:56: 26 Yes 4mg Take 4 mg by mouth daily with breakfast. [facility] ALPRAZolam (XANAX) 1 mg tablet 03-09 19:56: 26 Yes 1mg Take 1 mg by mouth 3 (three) times daily. [facility] omega-3 fatty acids-vitam in E (FISH OIL) 1,000 mg capsule 03-09 19:56: 26 Yes 1g Take 1 g by mouth daily. [facility] rosuvastati n (CRESTOR) 10 mg tablet 03-09 15:36: 42 03-09 00:00 :00 No 10mg Take 10 mg by mouth at bedtime. [facility] metoprolol succinate XL (TOPROL XL) 50 mg 24 hr tablet 03-09 15:36: 42 03-09 00:00 :00 No 50mg Take 50 mg by mouth daily. [facility] hydrochloro thiazide (ESIDRIX) 25 mg tablet 03-09 15:36: 42 03-09 00:00 :00 No 25mg Take 25 mg by mouth daily. [facility] canaglifloz in (INVOKANA) 300 mg tablet 03-09 15:36: 42 03-09 00:00 :00 No Take by mouth. [facility] metFORMIN (GLUCOPHAGE ) 1,000 mg tablet 03-09 15:36: 42 03-09 00:00 :00 No 1000mg Take 1,000 mg by mouth 2 (two) times daily with meals. [facility] Amlodipine- Olmesartan (SKYLAR) 10-40 mg per tablet 03-09 15:36: 42 03-09 00:00 :00 No Take by mouth. [facility] INSULIN DETEMIR (LEVEMIR FLEXTOUCH SC) 03-09 15:36: 42 03-09 00:00 :00 No inject under the skin. [facility] aspirin 81 mg EC tablet 03-09 15:36: 42 03-09 00:00 :00 No 81mg Take 81 mg by mouth daily. [facility] rosuvastati n (CRESTOR) tablet 10 mg 03-09 02:00: 00 Yes 10mg 10 mg, Oral, QHS, First dose on Mon03/08/23 at 2100, Until Discontinu ed, Routine [facility] aspirin 81 mg EC tablet 03-09 00:00: 00 04-09 04:59 :00 No [id number] 81mg Take 1 tablet by mouth in the morning for 30 days. [facility] hydroCHLORO thiazide 25 mg tablet 03-09 00:00: 00 04-09 04:59 :00 No [id number] 25mg Take 1 tablet by mouth in the morning for 30 days. [facility] metFORMIN 1,000 mg tablet 03-09 00:00: 00 04-09 04:59 :00 No [id number] 1000mg Take 1 tablet by mouth in the morning and 1 tablet in the evening. Take with meals. Do all this for 30 days. [facility] rosuvastati n 10 mg tablet 03-09 00:00: 00 04-09 04:59 :00 No [id number] 10mg Take 1 tablet by mouth at bedtime for 30 days. [facility] aspirin 81 mg EC tablet 03-09 00:00: 00 04-09 04:59 :00 No [id number] 81mg Take 1 tablet by mouth in the morning for 30 days. [facility] hydroCHLORO thiazide 25 mg tablet 03-09 00:00: 00 04-09 04:59 :00 No [id number] 25mg Take 1 tablet by mouth in the morning for 30 days. [facility] metFORMIN 1,000 mg tablet 03-09 00:00: 00 04-09 04:59 :00 No [id number] 1000mg Take 1 tablet by mouth in the morning and 1 tablet in the evening. Take with meals. Do all this for 30 days. [facility] rosuvastati n 10 mg tablet 03-09 00:00: 00 04-09 04:59 :00 No [id number] 10mg Take 1 tablet by mouth at bedtime for 30 days. [facility] sulfur hexafluorid e microsphr (LUMASON) injection 5 mL 03-08 15:45: 00 03-08 15:45 :00 No [id number] 5mL 5 mL, Intravenou s, ONCE, 1 dose, On Mon03/08/23 at 1045, Routine
grocery team member approving Restricted medication : RONALD AVILA [facility] Saline Bubble Study 03-08 15:41: 23 Yes [id number] 6mL 6 mL, Injection, SEE-INSTRU CTIONS, Starting on Mon03/08/23 at 1041, Until Discontinu ed, Routine [facility] insulin glargine (LANTUS U-100) injection 15 Units 03-08 14:15: 00 Yes 15U 15 Units, Subcutaneo us, DAILY, First dose on Mon03/08/23 at 0915, Until Discontinu ed, Routine [facility] amLODIPine (NORVASC) tablet 10 mg 03-08 14:15: 00 Yes 10mg 10 mg, Oral, DAILY, First dose on Mon03/08/23 at 0915, Until Discontinu ed, Routine [facility] metoprolol succinate XL (TOPROL XL) tablet 50 mg 03-08 14:15: 00 Yes 50mg 50 mg, Oral, DAILY, First dose on Mon03/08/23 at 0915, Until Discontinu ed, Routine [facility] hydroCHLORO thiazide (ESIDRIX) tablet 25 mg 03-08 14:15: 00 Yes 25mg 25 mg, Oral, DAILY, First dose on Mon03/08/23 at 0915, Until Discontinu ed, Routine [facility] aspirin EC tablet 81 mg 03-08 14:15: 00 Yes 81mg 81 mg, Oral, DAILY, First dose on Mon03/08/23 at 0915, Until Discontinu ed, Routine [facility] ALPRAZolam (XANAX) tablet 1 mg 03-08 14:04: 36 Yes 1mg 1 mg, Oral, TIDPRN, Starting on Mon03/08/23 at 0904, Until Discontinu ed, Routine, Anxiety [facility] Sliding Scale Insulin - Lispro (HumaLOG) 03-08 13:00: 00 Yes Subcutaneo us, TID MEALS+HS, First dose on Mon03/08/23 at 0800, Until Discontinu ed, Routine [facility] heparin (porcine) injection 5,000 Units 03-08 11:00: 00 Yes 5000U 5,000 Units, Subcutaneo us, Q8H, First dose on Mon03/08/23 at 0600, Until Discontinu ed, Routine [facility] hydralAZINE (APRESOLINE ) injection 10 mg 03-08 09:38: 44 Yes 10mg 10 mg, Slow IV Push, Q4HPRN, Starting on Mon03/08/23 at 0438, Until Discontinu ed, Routine, DBP=>100; SBP=>180 [facility] glucagon (GLUCAGEN DIAGNOSTIC KIT) injection 1 mg 03-08 09:36: 45 Yes 1mg 1 mg, Intramuscu lar, PRN, Starting on Mon03/08/23 at 0436, Until Discontinu ed, RENETTA, Blood Glucose < or = 70 mg/dL and patient is NPO, unable to swallow or has mental changes. [facility] dextrose 50 % in water (D50W) injection 25 mL 03-08 09:36: 45 Yes 25mL 25 mL, Slow IV Push, PRN, Starting on Mon03/08/23 at 0436, Until Discontinu ed, RENETTA, Blood Glucose < or = 70 mg/dL and patient is NPO, unable to swallow or has mental status changes. [facility] ondansetron (ZOFRAN (PF)) injection 4 mg 03-08 09:36: 24 Yes 4mg 4 mg, Slow IV Push, Q6HPRN, Starting on Mon03/08/23 at 0436, Until Discontinu ed, Routine, Nausea and Vomiting (N/V) [facility] HYDROcodone -acetaminop hen (NORCO 5) 5-325 mg tablet 1 tablet 03-08 09:36: 16 03-10 09:35 :16 No 1{tbl} 1 tablet, Oral, Q6HPRN, Starting on Mon03/08/23 at 0436, Until Mon03/10/23 at 0435, Routine, Pain (scale 4-6) [facility] acetaminoph en (TYLENOL) tablet 650 mg 03-08 09:36: 10 Yes 650mg 650 mg, Oral, Q6HPRN, Starting on Mon03/08/23 at 0436, Until Discontinu ed, Routine, Pain (scale 1-3), Temp > 38 C [facility] ondansetron (ZOFRAN (PF)) injection 4 mg 03-08 05:45: 00 03-08 05:40 :00 No 4mg 4 mg, Slow IV Push, ONCE, 1 dose, On Mon03/08/23 at 0045, RENETTA [facility] VESIcare 5 MG VESIcare 5 MG 2019-10 00:00: 00 11-28 00:00 :00 No 1{table t} QD VESIcare 5 MG VESIcare 5 MG VESIcare 5 MG 2019-10 00:00: 00 12-22 00:00 :00 No 1{table t} QD VESIcare 5 MG Sotalol HCl 120 MG Sotalol HCl 120 MG No 1{table t} BID Sotalol HCl 120 MG Metformin HCl 1000 MG Metformin HCl 1000 MG No 1{table t_with_ meals} BID Metformin HCl 1000 MG Lasix 40 MG Lasix 40 MG No 1{table t} QD Lasix 40 MG glipizide glipizide No glipizide Loratadine 10 MG Loratadine 10 MG No 1{table t} QD Loratadine 10 MG Losartan Potassium 100 MG Losartan Potassium 100 MG No 1{table t} QD Losartan Potassium 100 MG HydrALAZINE HCl 10 MG HydrALAZINE HCl 10 MG No 1{table t_with_ food} QID HydrALAZIN E HCl 10 MG Plavix 75 MG Plavix 75 MG No 1{table t} QD Plavix 75 MG Lipitor 80 MG Lipitor 80 MG No 1{table t} QD Lipitor 80 MG Fish Oil 1000 MG Fish Oil 1000 MG No 1{capsu le} QD Fish Oil 1000 MG Sotalol HCl 120 MG Sotalol HCl 120 MG No 1{table t} BID Sotalol HCl 120 MG glipizide glipizide No glipizide Lasix 40 MG Lasix 40 MG No 1{table t} QD Lasix 40 MG Loratadine 10 MG Loratadine 10 MG No 1{table t} QD Loratadine 10 MG Lipitor 80 MG Lipitor 80 MG No 1{table t} QD Lipitor 80 MG Metformin HCl 1000 MG Metformin HCl 1000 MG No 1{table t_with_ meals} BID Metformin HCl 1000 MG HydrALAZINE HCl 10 MG HydrALAZINE HCl 10 MG No 1{table t_with_ food} QID HydrALAZIN E HCl 10 MG Plavix 75 MG Plavix 75 MG No 1{table t} QD Plavix 75 MG Losartan Potassium 100 MG Losartan Potassium 100 MG No 1{table t} QD Losartan Potassium 100 MG Fish Oil 1000 MG Fish Oil 1000 MG No 1{capsu le} QD Fish Oil 1000 MG Vital Signs Vital Name Observation Time Observation Value Comments S ource Systolic blood pressure 2023-03-10 00:08:00 163 mm[Hg] [facility] Diastolic blood pressure 2023-03-10 00:08:00 90 mm[Hg] [facility] hospital Heart rate 2023-03-10 00:08:00 70 /min [facility] Body temperature 2023-03-10 00:08:00 35.17 Teresa [facility] Respiratory rate 2023-03-10 00:08:00 16 /min [facility] Oxygen saturation in Arterial blood by Pulse oximetry 2023-03-10 00:08:00 90 /min [facility] Body weight 2023-03-09 08:37:00 102.967 kg [facility] BMI 2023-03-09 08:37:00 30.79 kg/m2 [facility] Body height 2023-03-08 09:35:00 182.9 cm [facility] height 2020-12-03 11:15:00 70 [in_i] [facility] weight 2020-12-03 11:15:00 197 [lb_av] [facility] temperature 2020-12-03 11:15:00 97.6 [degF] [facility] bmi 2020-12-03 11:15:00 28.26 kg/m2 [facility] oximetry 2020-12-03 11:15:00 97 % [facility] blood pressure systolic 2020-12-03 11:15:00 139 mm[Hg] [facility] blood pressure diastolic 2020-12-03 11:15:00 64 mm[Hg] [facility] height 2020-08-24 14:00:00 70 [in_i] [facility] weight 2020-08-24 14:00:00 199.6 [lb_av] Co mmon [facility] temperature 2020-08-24 14:00:00 98.4 [degF] Com mon [facility] bmi 2020-08-24 14:00:00 28.64 kg/m2 [facility] oximetry 2020-08-24 14:00:00 96 % [facility] blood pressure systolic 2020-08-24 14:00:00 197 mm[Hg] [facility] blood pressure diastolic 2020-08-24 14:00:00 86 mm[Hg] [facility] Procedures Procedure Date / Time Performed Performing Clinician Source POCT GLUCOSE (AUTOMATED) 2023-03-09 21:33:00 Janiya Tafoya [facility] POCT GLUCOSE (AUTOMATED) 2023-03-09 16:39:00 Janiya Tafoya [facility] POCT GLUCOSE (AUTOMATED) 2023-03-09 12:45:00 Janiya Tafoya [facility] PHOSPHORUS 2023-03-09 09:02:00 [facility] MAGNESIUM 2023-03-09 09:02:00 Starla Tafoya [facility] TROPONIN I 2023-03-09 09:02:00 Kel Yin [facility] HEPATIC FUNCTION PANEL ([id number]) (ALB,T.PRO,BILI T,BU/BC,ALT,AST,ALK PHOS) 2023-03-09 09:02:00 Kel Yin [facility] BASIC METABOLIC PANEL (NA, K, CL, CO2, GLUCOSE, BUN, CREATININE, CA) 2023-03-09 09:02:00 tSarla Tafoya [facility] CBC WITH DIFF 2023-03-09 09:02:00 Jagdish Martin [facility] N-TERMINAL PRO-BNP 2023-03-09 09:02:00 Kel Yin [facility] POCT GLUCOSE (AUTOMATED) 2023-03-09 02:08:00 Janiya Tafoya [facility] TROPONIN I 2023-03-08 22:51:00 Starla Tafoya [facility] GLYCOSYLATED HEMOGLOBIN (A1C) 2023-03-08 22:51:00 Jagdish Martin [facility] POCT GLUCOSE (AUTOMATED) 2023-03-08 21:22:00 Janiya Tafoya [facility] POCT GLUCOSE (AUTOMATED) 2023-03-08 16:16:00 Janiya Tafoya [facility] TRANSTHORACIC ECHO (TTE) COMPLETE W/ CONTRAST 2023-03-08 14:29:00 Starla Tafoya [facility] POCT GLUCOSE (AUTOMATED) 2023-03-08 12:39:00 Janiya Tafoya [facility] PHOSPHORUS 2023-03-08 11:24:00 Starla Tafoya [facility] TROPONIN I 2023-03-08 11:24:00 Michelet [facility] N-TERMINAL PRO-BNP 2023-03-08 11:24:00 Candi Patel [facility] XR CHEST 1 VW 2023-03-08 06:27:00 Temi Holloway [facility] HB ECG ROUTINE & RHYTHM STRIP 2023-03-08 05:39:37 Temi Holloway [facility] LIPASE 2023-03-08 05:39:00 Temi Holloway [facility] TROPONIN I 2023-03-08 05:39:00 [facility] 2023-03-08 05:39:00 Starla Tafoya [facility] COMP. METABOLIC PANEL ([id number]) 2023-03-08 05:39:00 Temi Holloway [facility] LIPID PANEL ([id number])(TOTAL CHOLESTEROL, TRIGLYCERIDES, HDL) 2023-03-08 05:39:00 Starla Tafoya [facility] CBC WITH DIFF 2023-03-08 05:39:00 Temi Holloway [facility] GLYCOSYLATED HEMOGLOBIN (A1C) 2023-03-08 05:39:00 [facility] Start Date/Time End Date/Time Encounter Type Admission Type Attending [facility] Care Facility Care Department Encounter ID Source 2021-10-27 12:15:25 Outpatient Kapil Donis [facility] [id number] [facility] 2021-10-27 12:07:45 [facility] [id number] [facility] 2023-08-08 10:16:00 2023-08-08 10:16:00 Outpatient MAGDALENE PittMichael johnson [facility] EKG [id number] [facility] 2023-03-10 00:00:00 2023-03-10 00:00:00 Transition of Care Jose Alcocer [facility] [id number] [facility] 2023-03-08 00:29:00 2023-03-09 19:46:00 Emergency Romel Montez Jelani Abdullah, [place] [facility] [id number] [facility] 2023-03-08 00:29:00 2023-03-09 19:46:00 Outpatient KEL ALVAREZ [facility] [id number] [facility] 2022-05-31 08:52:00 2022-05-31 08:52:00 Outpatient Brissa Dial [facility] [id number] [facility] 2022-05-11 10:11:00 2022-05-11 10:11:00 Outpatient Chad Rae [facility] [id number] [facility] 2022-05-11 10:11:00 2022-05-11 10:11:00 Outpatient Chad Rae [facility] [id number] [facility] 2020-12-03 00:00:00 2020-12-03 00:00:00 OFFICE VISIT ESTAB PT LEVEL 2 [facility] [id number] [facility] 2020-08-24 00:00:00 2020-08-24 00:00:00 OFFICE VISIT NEW PT LEVEL 4 [facility] [id number] [facility] Results Test Description Test Time Test Comments Results Result Co mments Source [facility] GLUCOSE (AUTOMATED)2023-03-09 16:43:52* Test Item Value Reference Range Interpretation Comme nts POCT GLU (test code = 1405559587) 138 mg/dL 70-110 H Lab Interpretation (test cod e = 40989-5) Abnormal [facility] GLUCOSE (AUTOMATED)2023-03-09 12:55:44* Test Item Value Reference Range Interpretation Comme nts POCT GLU (test code = 4481517522) 126 mg/dL 70-110 H Lab Interpretation (test cod e = 05758-1) Abnormal [facility] GLUCOSE (AUTOMATED)2023-03-09 02:09:42* Test Item Value Reference Range Interpretation Comme nts POCT GLU (test code = 9437683420) 115 mg/dL 70-110 H Lab Interpretation (test cod e = 30347-5) Abnormal [facility] GLUCOSE (AUTOMATED)2023-03-08 21:32:42* Test Item Value Reference Range Interpretation Comme nts POCT GLU (test code = 3696499211) 266 mg/dL 70-110 H Lab Interpretation (test cod e = 40574-8) Abnormal [facility] GLUCOSE (AUTOMATED)2023-03-08 16:26:44* Test Item Value Reference Range Interpretation Comme nts POCT GLU (test code = 7585097863) 195 mg/dL 70-110 H Lab Interpretation (test cod e = 96830-1) Abnormal [facility] GLUCOSE (AUTOMATED)2023-03-08 12:40:58* Test Item Value Reference Range Interpretation Comme nts POCT GLU (test code = 9056542555) 179 mg/dL 70-110 H Lab Interpretation (test cod e = 45125-7) [facility]2023-03-08 11:56:52* Test Item Value Reference Range Interpretation Comme nts TSH (test code = 3853646134) 5.09 See_Comment H Biotin has been reported to cause a negative bias, interpret results relative to patient's use of biotin. [Automated message] The system which generated this result transmitted reference range: 0.45 - 4.70 mIU/L. The reference range was not used to interpret this result as normal/abnormal. Lab Interpretation (test code = 17338-1) [facility]normal [facility]2023-03-08 11:27:39* Test Item Value Reference Range Interpretation Comme nts HGB A1C (test code = 4548-4) 9.3 % 4.0-5.7 H TRINIDAD (test code = TRINIDAD) Reference RangesNormal: <5.7%Prediabetes: 5.7 - 6.4%Diabetes: > 6.5% Lab Interpretation (test code = 05138-8) Abnormal [facility] (Total Cholesterol, Triglycerides, HDL)2023-03-08 11:14:15* Test Item Value Reference Range Interpretation Comme nts CHOL (test code = 8736397251) 166 mg/dL 120-200 HDL (test code = 0035665097) 51 mg/dL >=40 HDLC RATIO (test code = 1978203966) 3.3 <=5.0 TRIG (test code = 9701930226) 83 mg/dL 30-170 LDL CHOL (test code = 00327-5) 98 mg/dL <=160 VLDL (test code = 5267237209) 17 mg/dL 5-60 Lab Interpretation (test cod e = 51958-0) [id number] 06:21:21* Test Item Value Reference Range Interpretation Comme nts TROPONIN I (test code = 6402141091) 0.075 ng/mL <=0.034 H TRINIDAD (test code = TRINIDAD) Reference (Normal) [...] to patient's use of biotin. Lab Interpretation (test code = 66706-6) [facility]normal [facility]OL[facility] PANEL (33943)2023-03-08 06:10:20* Test Item Value Reference Range Interpretation Comme nts NA (test code = 9950954109) 135 mmol/L 135-145 K (test code = 1079473881) 4.3 mmol/L 3.5-5.0 CL (test code = 6062712603) 104 mmol/L 98-108 CO2 TOTAL (test code = 3126650645) 26 mmol/L 23-31 AGAP (test code = 6932753470) 5 2-16 BUN (test code = 4542370866) 27 mg/dL 7-23 H GLUCOSE (test code = 6155713009) 243 mg/dL 70-110 H CREATININE (test code = 4596328637) 2.15 mg/dL 0.60-1.25 H TOTAL BILI (test code = 4442336930) 0.8 mg/dL 0.1-1.1 CALCIUM (test code = 6913664630) 8.2 mg/dL 8.6-10.6 L T PROTEIN (test code = 1475105851) 6.0 g/dL 6.3-8.2 L ALBUMIN (test code = 0794111174) 2.5 g/dL 3.5-5.0 L ALK PHOS (test code = 1408751208) 60 U/L 34-122 ALTv (test code = 1742-6) 17 U/L 5-50 AST(SGOT) (test code = 9115266626) 26 U/L 13-40 eGFR (test code = 5849815414) 30.1 mL/min/1.73m2 TRINIDAD (test code = TRINIDAD) Association of [...] or abnormalities in imaging tests). Lab Interpretation (test code = 90399-6) [facility]normal [facility] CenterLIPASE, [id number] 06:09:44* Test Item Value Reference Range Interpretation Comme nts LIPASE (test code = 8757376896) 101 U/L 0-220 Lab Interpretation (test cod e = 69540-4) Normal [facility] CenterCB WITH RMGE0818-06-96 05:51:59* Test Item Value Reference Range Interpretation Comme nts WBC (test code = 6690-2) 5.65 See_Comment [Automated [employer]] The system which generated this result transmitted reference range: 4.20 - 10.70 10*3/?L. The reference range was not used to interpret this result as normal/abnormal. RBC (test code = 789-8) 5.73 See_Comment H [Automated [facility] [employer]] The system which generated this result transmitted reference range: 4.26 - 5.52 10*6/?L. The reference range was not used to interpret this result as normal/abnormal. HGB (test code = 718-7) 15.5 g/dL 12.2-16.4 HCT (test code = 4544-3) 48.6 % 38.4-49.3 MCV (test code = 787-2) 84.8 fL 81.7-95.6 MCH (test code = 785-6) 27.1 pg 26.1-32.7 MCHC (test code = 786-4) 31.9 g/dL 31.2-35.0 RDW-SD (test code = 24432-8) 56.7 fL 38.5-51.6 H RDW-CV (test code = 788-0) 19.4 % 12.1-15.4 H PLT (test code = 777-3) 232 See_Comment [Automated messa ge] The system which generated this result transmitted reference range: 150 - 328 10*3/?L. The reference range was not used to interpret this result as normal/abnormal. MPV (test code = 10571-8) 10.5 fL 9.8-13.0 NRBC/100 WBC (test code = 4566014513) 0.0 See_Comment [Automated [employer]] The system which generated this result transmitted reference range: 0.0 - 10.0 /100 WBCs. The reference range was not used to interpret this result as normal/abnormal. NRBC x10^3 (test code = 6960788023) See_Comment [Automated messa ge] The system which generated this result transmitted reference range: 10*3/?L. The reference range was not used to interpret this result as normal/abnormal. GRAN MAT (NEUT) % (test code = 770-8) 68.1 % IMM GRAN % (test code = 9735308000) 0.20 % LYMPH % (test code = 736-9) 20.0 % MONO % (test code = 5905-5) 9.2 % EOS % (test code = 713-8) 1.6 % BASO % (test code = 706-2) 0.9 % GRAN MAT x10^3(ANC) (test code = 6201778909) 3.85 10*3/uL 1.99-6.95 IMM GRAN x10^3 (test code = 4851017518) 0.00-0.06 LYMPH x10^3 (test code = 731-0) 1.13 10*3/uL 1.09-3.23 MONO x10^3 (test code = 742-7) 0.52 10*3/uL 0.36-1.02 EOS x10^3 (test code = 711-2) 0.09 10*3/uL 0.06-0.53 BASO x10^3 (test code = 704-7) 0.05 10*3/uL 0.01-0.09 Lab Interpretation (test code = 10966-2) [facility]normal [facility] CenterCOVID [facility] Asymptomatic I[facility] [id number] 10:17:00 * Test Item Value Reference Range Interpretation Comme nts COVID 19 Asymptomatic IH AG (test code = COVNONPUIAG) Negative Negative A negative resul t is presumptive and should be confirmedwith an FDA authorized molecular assay, if necessary forpatient management.A positive result does not rule out co-infections withother pathogens.This test detects both viable (live) and non-viable,SARS-CoV, and SARS-CoV-2. Test performance depends on theamount of virus (antigen) in the sample.This test has not been FDA cleared or approved; the test hasbeen authorized by FDA under an Emergency Use Authorization(EUA) for use by laboratories certified under the CLIA thatmeet the requirements to perform moderate, high or waivedcomplexity tests. - CTA HEART W CN ART/VCNEXU7997-57-99 00:00:[address] [facility] KADIE TACOMAName: ALBERT MARQUEZ : 1950 Sex: M Name: ALBERT MARQUEZ [facility] [place] : 1950 Age/S: 72 / M [address] [place] [address] Unit #: [id number] Loc: [place] [address] Phys: Brissa Reinoso [facility] Acct: [id number] Dis Date: Status: REG CLIPHONE #: [phone] Exam Date: 05/31/2022 1012 FAX #: [phone] Reason: EXAMS: CPT CODE: [id number] CTA HEART W CN ART/GRAFTS 69281 PROCEDURE INFORMATION: Exam: CTA Heart And Coronary [...] dose optimization techniques: automated exposure control; mA and/orkV adjustment per patient size (includes targeted exams where dose is matched to clinical indication); or iterative reconstruction. Contrast material: ISOVUE 370; Contrast volume: 100 ml; Contrast route: INTRAVENOUS (IV); Pharmacological intervention: None. COMPARISON: No relevant prior studies katie ilable. FINDINGS: CARDIAC CTA/THORACIC CTA: AORTIC VALVE: There is a trileaflet aortic valve. Thereis severe calcification involving the aortic valve leaflets. [...] 1 Signed Report (CONTINUED) Name: ALBERT MARQUEZ [facility] [place] : 1950 Age/S: 72 / M [address] [place] [address] Blvd Unit #: [id number] Loc: [place] [address] Phys: Brissa Reinoso [employer] Acct: [id number] Dis Date: Status: REG CLI PHONE #: [phone] Exam Date: 05/31/2022 1012 FAX #: [phone] Reason: EXAMS: CPT CODE: [id number] CTA HEART W CN ART/GRAFTS 44366 (Continued) mitral annular calcification. PERICARDIUM: No evidence of pericardial effusion. MEDIASTINUM: Mild enlargement of mediastinal lymph nodes in the right paratracheal region, left paratracheal region, left AP window, bilateral hilar and infracarinal stations, the largest in the right paratracheal region measuring up to 18 mm. LUNGS AND PLEURA: There are small bilateral pleural effusions with mild adjacent atelectasis. There is mild interlobularseptal thickening bilaterally with mild ground-glass changes consistent [...] 2 Signed Report (CONTINUED) Name: ALBERT MARQUEZ [facility] : 1950 Age/S: 72 / M [address] [place] [address] Blvd Unit #: [id number] Loc: [place] [address] Phys: Brissa Reinoso Acct: [id number] Dis Date: Status: REG CLI PHONE #:[phone] Exam Date: 05/31/2022 1012 FAX #: [phone] Reason: EXAMS: CPT CODE: [id number] CTAHEART W CN ART/GRAFTS 10438 (Continued) Small uncomplicated fat containing umbilical hernia. [...] (1722) YassineKS43 Orig Print D/T: S: 05/31/2022 (172) PAGE 3 Signed Report- CTA ABD PEL W CONT 2022-05-31 00:00:00 EMILEE CANTON KISHAN GONSALESName: ALBERT MARQUEZ : 1950 Sex: M Name: [facility] G[facility] : 1950 Age/S: 72 / M [address] [place] [address] Blvd Unit #: [id number] Loc: [place]ARCEL [address] Phys: Brissa Reinoso [facility] Acct: [id number] Dis Date: Status: REG CLIPHONE #: [phone] Exam Date: 05/31/2022 1012 FAX #: [phone] Reason: 135.0, SEVERE AORTIC STENOSIS. EXAMS: CPT CODE: [id number] CTA ABD PEL W CONT 75843 PROCEDURE INFORMATION: Exam: CTA HeartAnd Coronary Arteries With Contrast Exam date and [...] were created by the technologist. Radiation optimization: A ll CT scans at this facility use at [...] of 4.18 cm2 and perimeter of 73.9 mm.SOV 34.5 x 36.1 x 32.6 mm STJ 28.8 x 28.9 mm At the level of the pulmonary artery bifurcation, the ascending aorta measures 31.8 x 33.6 mm. The distance from the annulus to the RCA ostium is 22.9 mm.The distance from the annulus to the LM ostium is 15.1 mm. CORONARY ARTERIES: Normal origin of the coronary arteries. There is coronary atherosclerosis however the study was not tailored for the assessment of the coronaries. CARDIAC CHAMBERS: Mild cardiomegaly. No LA or LV thrombus. Mild PAGE 1 Signed Report (CONTINUED) Name: ALBERT MARQUEZ [facility] : 1950 Age/S: 72 / M [address] [place] [address] Blvd Unit #: [id number] Loc: [place] [address] Phys: Brissa Reinoso [facility] Acct: [id number] D is Date: Status: REG CLI PHONE #: [phone] Exam Date: 05/31/2022 1012 FAX #: [phone] Reason: 135.0, SEVERE AORTIC STENOSIS. EXAMS: CPT CODE: [id number] CTA ABD PEL W CONT 55033 (Continued) mitral annular calcification. PERICARDIUM: No evidence [...] There are no bony lytic or blastic lesions.IMPRESSION: Severe calcification of the aortic valve compatible with aortic stenosis. The total calcium score of the aortic valve is 1658. Aortic annulus 26.6 x 21 mm, area of 4.18 cm2 and perimeterof 73.9 mm. Mild pulmonary edema and small [...] 2 Signed Report (CONTINUED) Name: ALBERT MARQUEZ [facility] : 1950 Age/S: 72 / M [address] [place] [address] Unit #: [id number] Loc: [place] [address] Phys: Brissa Reinoso [facility] Acct: [id number] Dis Date: Status: REG CLI PHONE #: [phone] Exam Date: 05/31/2022 1012 FAX #: [phone] Reason: 135.0, SEVERE AORTIC STENOSIS. EXAMS: CPT CODE: [id number] CTA ABD PEL W CONT 86831 (Continued) Small uncomplicated fat containing umbilical hernia. IMPRESSION: Mild atherosclerosis of the abdominal aorta which is widely patent with a minimal luminal diameter of 18 x 17 mm in the infrarenal segment. Moderate atherosclerosis of the bilateral iliofemoral branches. The bilateral commoniliac, external iliac and common femoral arteries are patent, measuring 6 mm or greater. Mild wallthickening of the underdistended bladder. This could simply be the result of underdistention however a mild cystitis is not excluded. Clinical correlation and correlation with urinalysis recommended. at 1723 Reported and signed by: Wood Duran M.D. CC: Brissa Reinoso Technologist:Berry Hearn, RT(R)(CT) CTDI: DLP: Trnscb Date/Time: 05/31/2022 (1723) [id number] Orig Print D/T: S: 05/31/2022 (696) PAGE 3 Signed Report- CT ANGIO [id number] 00:00[facility]00[facility] : 1950 Sex: M Name: ALBERT MARQUEZ [facility] : 1950 Age/S: 72 / M [address] [place] [address] Blvd Unit #: [id number] Loc: [place] [address] Phys: Brissa Reinoso Acct: [id number] Dis Date: Status: REG FRANCHESKANE #: [phone] Exam Date: 05/31/2022 1012 FAX #: [phone] Reason: 135.0 , SEVERE AORTIC STENOSIS. EXAMS: CPT CODE: [id number] CT ANGIO CHEST 97002 PROCEDURE INFORMATION: Exam: CTA Heart And Coronary Arteries With Contrast Exam date and time: 05/31/2022 10:09 AM Age: 72 years old Clinicalindication: Other: Aortic stenosis TECHNIQUE: Imaging protocol: CT [...] CTA/THORACIC CTA: AORTIC VALVE: There is a trileafletaortic valve. There is severe calcification involving the [...] 1 Signed Report (CONTINUED) Name: ALBERT MARQUEZ [facility] : 1950 Age/S: 72 / M [address] Unit #: [id number] Loc: [place] [address] Phys: Brissa Reinoso [employer] Acct: [id number] Dis Date: Status: REG CLI PHONE #: [phone] Exam Date: 05/31/2022 1012 FAX #: [phone] Reason: 135.0 , SEVERE AORTIC STENOSIS. EXAMS: CPT CODE: [id number] CT ANGIO CHEST 06789 (Continued) mitral annular calcification. PERICARDIUM: No evidence [...] interlobular septal thickening bilaterally with mild ground-glass changesconsistent with mild edema. BONES AND SOFT TISSUES: There are no bony lytic or blastic lesions. IMPR ESSION: Severe calcification of the aortic valve compatible with aortic stenosis. The total calciumscore of the aortic valve is 1658. Aortic [...] MINIMAL LUMINAL DIAMETERS OF ABDOMINAL AORTA AND BRANCHES:The minimal luminal diameter of the aorta is 18 x 17 mm in the infrarenal segment. The RIGHT commoniliac, external iliac and common femoral arteries are [...] 2 Signed Report (CONTINUED) Name: ALBERT MARQUEZ [facility] : 1950 Age/S: 72 / M [address] [place] [address] Blvd Unit #: [id number] Loc: [place] [address] Phys: Brissa Reinoso Acct: [id number] Dis Date: Status: REG CLI PHONE #: [phone] Exam Date: 05/31/2022 1012 FAX #: [phone] Reason: 135.0 , SEVERE AORTIC STENOSIS. EXAMS: CPT CODE: [id number] CT ANGIO CHEST 75539 (Continued) Small uncomplicated fat containing umbilical hernia. [...] Clinical correlation and correlation with urinalysis recommended. Electr onically Signed by April Duran on 05/31/2022 at 1723 Reported and signed by: Wood Duran M.D. CC: Brissa Reinoso Technologist:Berry Hearn RT(R)(CT) CTDI: DLP: Trnscb Date/Time: 05/31/2022 (172) [email or web address] Orig Print D/T: S: 05/31/2022 (1724) PAGE 3 Signed ReportGLUCOSE NEDTMQC8531-25-87 09:36:00 * Test Item Value Reference Range Interpretation Comme nts GLUCOSE BEDSIDE (test code = GLUBED) 137 MG/DL 70-110 H Performed by cer lisa handle machine operator at [facility] BASIC METABOLIC [id number] 16:24:00* Test Item Value Reference Range Interpretation Comme nts SODIUM (test code = NA) 138 mEq/L 134-147 N POTASSIUM (test code = K) 3.6 mEq/L 3.4-5.0 N CHLORIDE (test code = CL) 105 mEq/L 100-108 N CARBON DIOXIDE (test code = CO2) 27 mEq/l 21-33 N ANION GAP (test code = GAP) 10 0-20 N GLUCOSE (test code = GLU) 177 mg/dL 70-110 H BLOOD UREA NITROGEN (test code = BUN) 14 mg/dL 7-18 N GLOMERULAR FILTRATION RATE (test code = GFR) 39.6 70-80 L Units of measure = ml/min/1.73 m2 CREATININE (test code = CREAT) 1.7 mg/dL 0.6-1.3 H CALCIUM (test code = CA) 8.9 mg/dL 8.0-10.5 N PROTHROMBIN [id number] 16:19:00* Test Item Value Reference Range Interpretation Comme nts PROTHROMBIN TIME PATIENT (test code = PTP) 13.0 SECONDS 9.3-12.9 H INTERNATIONAL NORMAL RATIO (test code = INR) 1.2 0.8-1.2 N TARGET INR BY INDICATION Indication INR1. Prophylaxis of venous thrombosis 2.0 - 3.0 (orthopedic surgery), Prophylaxis of venous thrombosis (other than high-risk surgery), Treatment of Deep Vein Thrombosis/Pulmonary Embolism, Prevention of systemic embolism - Tissue heart valves, Acute Myocardial Infarction (to prevent systemic embolism), Valvular heart disease, Atrial Fibrillation, Bileaflet mechanical valve in aortic position.2. Mechanical prosthetic valves (high risk), 2.5 - 3.5 Presence of Lupus Anticoagulant or Antiphospholipid Antibodies, Prevention of systemic embolism - Acute Myocardial Infarction (to prevent recurrent infarct). CBC W/AUTO [id number] 16:09:00* Test Item Value Reference Range Interpretation Comme nts WHITE BLOOD CELL (test code = WBC) 6.3 x10 3/uL 4.5-11.0 N RED BLOOD CELL (test code = RBC) 5.98 x10 6/uL 4.00-5.60 H HEMOGLOBIN (test code = HGB) 16.0 g/dL 12.5-16.9 N HEMATOCRIT (test code = HCT) 50.7 % 37.5-50.7 N MEAN CELL VOLUME (test code = MCV) 84.8 fL 81.0-99.0 N MEAN CELL HGB (test code = MCH) 26.8 pg 27.0-33.0 L MEAN CELL HGB CONCETRATION (test code = MCHC) 31.6 g/dL 33.0-37.0 L RED CELL DISTRIBUTION WIDTH CV (test code = RDW) 16.5 % 11.5-14.5 H RED CELL DISTRIBUTION WIDTH SD (test code = RDW-SD) 49.6 fL 37.0-54.0 N PLATELET COUNT (test code = PLT) 347 x10 3/uL 150-400 N MEAN PLATELET VOLUME (test c ode = MPV) 11.0 fL 7.0-9.0 H NEUTROPHIL % (test code = NT%) 63.5 % 56.0-77.0 N IMMATURE GRANULOCYTE % (test code = IG%) 0.2 % 0.0-2.0 N LYMPHOCYTE % (test code = LY%) 25.9 % 14.0-32.0 N MONOCYTE % (test code = MO%) 7.7 % 4.8-9.0 N EOSINOPHIL % (test code = EO%) 1.6 % 0.3-3.7 N BASOPHIL % (test code = BA%) 1.1 % 0.0-2.0 N NUCLEATED RBC % (test code = NRBC%) 0.0 % 0-0 N NEUTROPHIL # (test code = NT#) 3.98 x10 3/uL 2.0-7.6 N IMMATURE GRANULOCYTE # (test code = IG#) 0.01 x10 3/uL 0.00-0.03 N LYMPHOCYTE # (test code = LY#) 1.62 x10 3/uL 1.0-3.8 N MONOCYTE # (test code = MO#) 0.48 x10 3/uL 0.1-0.8 N EOSINOPHIL # (test code = EO#) 0.10 x10 3/uL 0.0-0.2 N BASOPHIL # (test code = BA#) 0.07 x10 3/uL 0.0-0.2 N NUCLEATED RBC # (test code = NRBC#) 0.00 x10 3/uL 0.0-0.1 N MANUAL DIFF REQUIRED (test c ode = MDIFF) NO Notes Date/Time Note Provider Source 2023-08-08 15:06:00 [id number] Nq2toG1DHFnbBQdjxfHIwx/UzZp2e adnxje/IJI7JW3u0JqutWqT+ad67630-60-78O32:06:41202 7-0003 [facility] [address] [place] [address] PATIENT NAME: ALBERT MARQUEZ ADMIT DATE: 08/08/23ACCOUNT NO: [id number] ROOM NO: AGE: 73 REPORT TYPE: eECHOCARDIOGRAM REPORT SEX: M ADMITTING PHYSICIAN: ATTENDING PHYSICIAN: Michael Orozco DO *[facility] [place], [place] [address]Kzcjt Transthoracic Echocardiogram Patient: Maurisio Marqueztudy Date: 08/08/2023 BP: [id number] 1950 Age: 73 Height: 72 in / 182.9 cmAccession#: [id number] Gender: M Weight: 188.6 lb / 85.7 kgBMI/BSA: 25.6 kg/m 2 / 2.08 m 2 *Ordering Physician: * Michael Orozco *Interpreting Physician: * Osmany Griffith MD*Magazine Repairer: * Rachael Melo Indications: CAD. Atrial Fibrillation. Study data: Transthoracic echocardiogram. Procedure: Transthoracicechocardiography was performed. Image quality was adequate. Vngfeyul1J, complete spectral Doppler, and color Doppler. Location: Echolaboratory. Patient status: Outpatient. Study status: Routine. Findings Left ventricle: The cavity size is normal. Wall thickness is mildly tomoderately increased. Systolic function is normal. The estimatedejection fraction is 60-64%. Wall motion is normal; there are noregional wall motion abnormalities. Doppler parameters are consistentwith abnormal left ventricular relaxation (grade 1 diastolicdysfunction).Right ventricle: The cavity size is normal. Systolic function is PATIENT NAME: ALBERT MARQUEZ normal.Left atrium: The atrium is normal in size.Right atrium: The atrium is normal in size.Aorta: Aortic root: The aortic root is normal in size.Aortic valve: The valve is trileaflet. The leaflets are moderatelycalcified. The findings are consistent with moderate stenosis. Thereis moderate regurgitation.Mitral valve: The annulus is calcified. The leaflets are mildlythickened. The findings are consistent with mild stenosis. There istrivial regurgitation.Tricuspid valve: The valve is structurally normal. There is mildregurgitation.Pulmonic valve: The valve is structurally normal. There is trivialregurgitation.Pericardium: There is no pericardial effusion.Pulmonary arteries:The main pulmonary artery is normal-sized.Systemic veins:Inferior vena cava: The vessel is normal in size. Measurements Left ventricle Value 05/11/2022 Ref VENESSA, LAX 4.9 cm 4.2 - 5.8 ESD, LAX 3.3 cm 2.5 - 4.0 ESD/bsa, LAX 1.6 cm/m 2 1.3 - 2.1 FS, LAX 33 % 25 - 43 PW, ED 1.3 cm 0.6 - 1.0 IVS/PW, ED 0.95 ----- EF 61 % 52 - 72 IVRT 117 ms ----- LVOT Value 05/11/2022 Ref Diam, S 2.02 cm ----- Area 3.2 cm 2 ----- Peak kiana, S 1.19 m/sec ----- Mean kiana, S 0.69 m/sec ----- VTI, S 25.3 cm ----- Peak grad, S 6 mm Hg ----- Mean grad, S 2 mm Hg ----- SV 81 ml ----- SV/bsa 39 ml/m 2 ----- Ventricular septum Value 05/11/2022 Ref IVS, ED 1.3 cm 0.6 - 1.0 PATIENT NAME: RANDA MARQUEZAngela Right ventricle Value 05/11/2022 Ref TAPSE, MM 2.6 cm 1.7 - 3.1 Pressure, S 38 mm Hg ----- Left atrium Value 05/11/2022 Ref Vol/bsa, ES, 30 ml/m 2 12 - 1-p A4C 37 Vol/bsa, ES, 32 ml/m 2 16 - A/L 34 AP dim, ES 3.8 cm 3.0 - MM 4.0 LA/Ao root 1.18 ----- ratio, MM Aortic valve Value 05/11/2022 Ref KATIE, plan 0.95 cm 2 0.84 ----- KATIE/bsa, 0.46 cm 2/m 2 0.39 ----- plan Leaflet sep, 1.08 cm ----- MM Peak v, S 2.73 m/sec ----- Mean v, S 1.68 m/sec ----- VTI, S 58.6 cm ----- Mean grad, S 13.1 mm Hg ----- Peak grad, S 29.8 mm Hg ----- LVOT/AV, VTI 0.43 ----- ratio KATIE, VTI 1.39 cm 2 ----- LVOT/AV, 0.43 ----- Vpeak ratio KATIE, Vmax 1.40 cm 2 ----- AR peak v 4.42 m/sec ----- AR decel 256 cm/s 2 ----- AR decel 1726 ms ----- time AR PHT 500 ms ----- AR peak grad 78 mm Hg ----- Mitral valve Value 05/11/2022 Ref Peak E 1.12 m/sec ----- Peak A 1.34 m/sec ----- Mean v, D 0.7 m/sec ----- VTI leaflet 39.7 cm ----- coapt Decel time 261 ms ----- PHT 66 ms ----- Mean grad, D 2.5 mm Hg ----- Peak grad, D 10.6 mm Hg ----- Peak E/A 0.83 ----- ratio MVA, PHT 3.3 cm 2 ----- Pulmonic valve Value 05/11/2022 Ref PATIENT NAME: ALBERT MARQUEZ AZ peak v 0.99 m/sec ----- AZ peak grad 4 mm Hg ----- Tricuspid valve Value 05/11/2022 Ref TR peak v 2.87 m/sec <=2.8 Peak RV-RA 33 mm Hg ----- grad, S Aortic root Value 05/11/2022 Ref Root diam, 3.21 cm ----- ED MM Pulmonary artery Value 05/11/2022 Ref Pressure, S 35.6 mm Hg ----- Systemic veins Value 05/11/2022 Ref Estimated 5 mm Hg ----- CVP Pulmonary veins Value 05/11/2022 Ref A rev 114 ms ----- duration Conclusions Summary: 1. Left ventricle: The cavity size is normal. Wall thickness is mildly to moderately increased. Systolic function is normal. The estimated ejection fraction is 60-64%. Wall motion is normal; there are no regional wall motion abnormalities. Doppler parameters are consistent with abnormal left ventricular relaxation (grade 1 diastolic dysfunction).2. Right ventricle: The RV pressure during systole by Doppler is 38 mm Hg.3. Aortic valve: The findings are consistent with moderate stenosis. There is moderate regurgitation. The mean systolic gradient is 13.1 mm Hg. The peak systolic gradient is 29.8 mm Hg. The regurgitation pressure half-time is 500 ms.4. Mitral valve: The annulus is calcified. The leaflets are mildly thickened. The findings are consistent with mild stenosis. Prepared and electronically signed by Osmany Griffith MD08/08/2023 15:05 at 1506 PATIENT NAME: ALBERT MARQUEZ :06:0 0L.[id number] for patient hwuwULIZWVAMOKPRVB4905-94-01V95:06:40 [facility] 2022-06-02 08:57:00 [id number] WiLZ2SYBQ4DiU8XRilxl3eV7s8B5e NXxYuLJBVdESTj52El84Lal4TaJ4685-69-85F60:57:35488 1-0026 [place] [address] patient name: albert marquez admit date: 05/31/22account no: [id number] room no: age: 72 report type: pulmonary function report sex: m admitting physician: attending physician:brissa reinoso study date: full pulmonary function test interpretation spirometry: fvc is 41% of predicted. fev1 is 33% of predicted, no response tobronchodilator. ratio is 59. total lung capacity 77%. rv is 129%. diffusion capacity is 19%. full pulmonary function test: severe copd, gold stage iii. dictated by: dorothy baer md wt: pft:g.cps/dahma/ntsdd: 06/02/2022 08:57:29dt: 06/02/2022 09:52:31conf#: [id number]/did#: [id number] authenticated by dorothy baer md on 06/06/2022 08:17:48 am electronically signed by dorothy baer md on 06/06/22 at 0817 patient name: albert marquez xlqz1262-19-55Q41:52:00G.[id number] ble for patient xcujTBYATICTDTRQLV9923-55-95B93:18:29 [facility] 2022-05-11 15:06:00 [id number] 0rsUx6pxiLdPEOPk6cQdpcElfuc0H 3Es6MujWXFJyRF++9eGsMT7CUES1210-64-70P07:06:00 [facility])clinical notereport#:[id number] report status: signeddate:05/11/22 time: 1506 patient: albert marquez unit #: [id number]#: [id number] room/bed:: 48 age: 72 sex: m attend: [facility] dt: 05/11/22 author: ian coates traveling buyer * all edits or amendments must be made on the electronic/computer document * clinical notenote:72-year-old -kyrgyz male with past medical history of hypertension, hyperlipidemia, diabetes (on insulin), cad status post pci/stenting, atrial fibrillation, who has been experiencing worsening shortness of breath and dizziness. he has been admitted to the hospital today for chris and found to havesevere aortic stenosis. i am making arrangements for mr. marquez to see dr molina in clinic next week as dr molina is in the or and patient does not wantto wait. electronically signed by ian coates np on 05/12/22 at 1522electronically signed by juan miguel molina md on 05/24/22 at 0953 rpt #:[id number] of reportCLClinical [id number]:06:[id number] able for patient [id number]:53:35 HCACL 2022-05-11 15:06:00 [id number]:06: 00 [facility] ([facility])Clinical NoteREPORT#:[id number] REPORT STATUS: SignedDATE:05/11/22 TIME: 1506 PATIENT: ALBERT MARQUEZ UNIT #: [id number]#: [id number] ROOM/BED:: 48 AGE: 72 SEX: M ATTEND: Chad Valadez MDADM AUTHOR: Ian Coates MILL CRANE OPERATOR * ALL edits or amendments must be made on the electronic/computer document * Clinical NoteNote:72-year-old -[place] male with past medical history of hypertension, hyperlipidemia, diabetes (on insulin), CAD status post PCI/stenting, atrial fibrillation, who has been experiencing worsening shortness of breath and dizziness. He has been admitted to the hospital today for CHRIS and found to havesevere aortic stenosis. I am making arrangements for Mr. Marquez to see Dr Molina in clinic next week as Dr Molina is in the OR and patient does not wantto wait. at 1522 RPT #:[id number] OF REPORTCLClinical [id number]:[id number] able for patient [id number]:23:17 [facility]"
--- NOTE | 2023-11-20 09:46 | RAD REPORT ---
EXAM DESCRIPTION: CT - Head Brain Wo Cont - 11/20/2023 9:32 am CLINICAL HISTORY: Fall with head injury. Weakness COMPARISON: 2022 TECHNIQUE: Computed axial tomography of the head was obtained. IV contrast was not requested. All CT scans are performed using dose optimization technique as appropriate and may include automated exposure control or mA/KV adjustment according to patient size. FINDINGS: An intracranial bleed is not seen The ventricles are normal in caliber No extra-axial fluid collection is noted. Moderate low-density areas within periventricular, deep and subcortical white matter likely represent ischemic changes secondary to small vessel disease. Right maxillary sinusitis IMPRESSION: No acute intracranial abnormality is seen If patient's symptoms persist MRI of the brain would be recommended
--- NOTE | 2023-11-20 10:07 | RAD REPORT ---
EXAM DESCRIPTION: Mary Single View11/20/2023 9:52 am CLINICAL HISTORY: Chest pain COMPARISON: 2022 FINDINGS: The lungs appear clear of acute infiltrate. The heart is mildly to moderately enlarged IMPRESSION: No acute abnormalities displayed
--- NOTE | 2023-11-20 10:48 | RAD REPORT ---
EXAM DESCRIPTION: USExtrem Venous W Compress Bil11/20/2023 10:32 am CLINICAL HISTORY: Leg swelling COMPARISON: none FINDINGS: The common femoral, superficial femoral, greater saphenous, popliteal and posterior tibial veins bilaterally are compressible and demonstrate augmentation. Doppler demonstrates good flow. Grayscale, color and spectral analysis performed on all vessels IMPRESSION: No evidence of deep venous thrombosis involving either lower extremity.
[2023-11-20 11:38] LABS: Absolute Lymphocytes (CBC) 0.6 K/uL (0.7-4.9); Hematocrit 49.9 % (39.6-49.0); Lymphocytes % 5.8 % (15.3-44.8); MCV 86.9 fL (80-100); Platelets 405 thou/uL (152-406); RBC Red Blood Cell Count 5.75 M/uL (4.33-5.43)
[2023-11-20 11:44] LABS: Protime INR 1.22
[2023-11-20 11:59] LABS: Albumin 2.6 g/dL (3.4-5.0); Bilirubin Direct 0.2 mg/dL (0-0.2); Bilirubin Indirect, Calculated 0.3 mg/dL (0.2-0.8); Bilirubin Total 0.5 mg/dL (0.2-1.0); Magnesium 2.8 mg/dL (1.6-2.4); Potassium 5.3 mEq/L (3.5-5.1); Protein, Total 9.5 g/dL (6.4-8.2)
[2023-11-20 12:20] LABS: Blood Morphology Comment NOT SEEN (NOT SEEN); Platelet Estimate ADEQ; White Blood Cell Scan OK (OK)
--- NOTE | 2023-11-20 12:40 | ER ---
Nurse's Notes [facility] [place] Name: Julianna Kearns Age: 73 yrs Sex: Male : 1950 Arrival Date: 11/20/2023 Time: 09:07 Bed 2 Private MD: Diagnosis: Weakness;Unspecified kidney failure;Hyperkalemia;Unspecified combined systolic (congestive) and diastolic (congestive) heart failure Presentation: 11/20 09:06 Chief complaint: EMS states: BILAT WOUNDS TO LOWER LEGS ON ANTIBIOTICS, CIPRO X 2 DAYS, db PT PICKING AT WOUNDS. NON COMPLIANT WITH MEDICATIONS. GOES TO WOUND CARE EVERY WEEK. GLUCOSE 260. FELL TWICE TODAY EMS CALLED TO PT RESIDENCE FOR LIFT ASSIST. Coronavirus screen: Client denies travel out of the [place] in the last 14 days. At this time, the client does not indicate any symptoms associated with coronavirus-19. Ebola Screen: Patient negative for fever greater than or equal to 101.5 degrees Fahrenheit, and additional compatible Ebola Virus Disease symptoms Patient denies exposure to infectious person. Patient denies travel to an Ebola-affected area in the 21 days before illness onset. No symptoms or risks identified at this time. Initial Sepsis Screen: Does the patient meet any 2 criteria? HR > 90 bpm. Does the patient have a suspected source of infection? No. Patient's initial sepsis screen is negative. Risk Assessment: Do you want to hurt yourself or someone else? Patient reports no desire to harm self or others. Onset of symptoms was November 20, 2023. Care prior to arrival: Glucose check: 260. 09:06 Method Of Arrival: EMS: [facility] db 09:06 Acuity: VERONICA 2 db Triage Assessment: 09:06 General: Appears in no apparent distress. comfortable, Behavior is calm, cooperative. db Pain: Complains of pain in right leg and left leg. Neuro: Level of Consciousness is awake, alert, obeys commands, Oriented to person, place. Respiratory: Airway is patent Respiratory effort is even, unlabored, Respiratory pattern is regular. Derm: Skin SWOLLEN Skin is red, Wound noted right leg and left leg Reports pain. Historical: - Allergies: 09:11 PENICILLINS; ph - PMHx: 09:11 Atrial Fib; caridac stent; CHF; Diabetes - NIDDM; Hypercholesterolemia; Hypertension; ph - PSHx: 09:11 cardiac stent; ph - Immunization history:: Adult Immunizations unknown. - Social history:: Smoking status: Patient denies any tobacco usage or history of. Screenin:12 [facility] ED Fall Risk Assessment (Adult) History of falling in the last 3 months, ph including since admission Yes- fall prone (multiple falls) (3 pts) Confusion or Disorientation No (0 pts) Intoxicated or Sedated No (0 pts) Impaired Gait Yes (1 pt) Mobility Assist Device Used Yes (1 pt) Altered Elimination No (0 pt) Score/Fall Risk Level 3 or more points = High Risk Oriented to surroundings, Maintained a safe environment, Provided non-skid footwear, Hourly rounding (assess needs \T\ fall precautionary measures) done, Used ambulatory aids as needed (educated on \T\ assisted with). Abuse screen: Denies threats or abuse. Denies injuries from another. Nutritional screening: No deficits noted. Tuberculosis screening: No symptoms or risk factors identified. Assessment: 09:16 Reassessment: SEE TRIAGE OR INITIAL ASSESSMENT. db 10:15 Reassessment: Patient appears in no apparent distress at this time. Patient and/or db family updated on plan of care and expected duration. Pain level reassessed. Patient is alert, oriented x 3, equal unlabored respirations, skin warm/dry/pink. FAMILY AT BEDSIDE. 11:15 Reassessment: Patient appears in no apparent distress at this time. Patient and/or db family updated on plan of care and expected duration. Pain level reassessed. Patient is alert, oriented x 3, equal unlabored respirations, skin warm/dry/pink. WOUND CARE TO BILATERAL LOWER LEGS PER PROVIDER ORDER. General: Appears in no apparent distress. comfortable, Behavior is calm, cooperative. 13:55 Reassessment: No changes from previously documented assessment. Patient and/or family ll1 updated on plan of care and expected duration. Pain level reassessed. 14:00 Reassessment: Patient appears in no apparent distress at this time. Patient and/or db family updated on plan of care and expected duration. Pain level reassessed. Patient is alert, oriented x 3, equal unlabored respirations, skin warm/dry/pink. 15:56 Reassessment: Patient appears in no apparent distress at this time. Patient and/or db family updated on plan of care and expected duration. Pain level reassessed. Patient is alert, oriented x 3, equal unlabored respirations, skin warm/dry/pink. REPORT GIVEN TO [facility] RECEIVING FACILITY RN. Neuro: Level of Consciousness is awake, alert, obeys commands, Oriented to person, place, time. 17:44 Reassessment: Patient appears in no apparent distress at this time. Patient and/or db family updated on plan of care and expected duration. Pain level reassessed. Patient is alert, oriented x 3, equal unlabored respirations, skin warm/dry/pink. AT BEDSIDE. 18:05 Reassessment: Patient appears in no apparent distress at this time. Patient and/or db family updated on plan of care and expected duration. Pain level reassessed. Patient is alert, oriented x 3, equal unlabored respirations, skin warm/dry/pink. EMS ARRIVED FOR PATIENT TRANSPORT. Vital Signs: 09:06 BP 179 / 88; Pulse 101; Resp 18; Temp 97.3(TE); Pulse Ox 95% on R/A; Weight 78.02 kg; db Height 6 ft. 0 in. ; 10:00 BP 156 / 84; Pulse 94; Resp 18; Pulse Ox 96% on R/A; db 11:00 BP 99 / 86; Pulse 96; Resp 16; Pulse Ox 96% on R/A; db 13:00 BP 153 / 81; Pulse 102; Resp 19; Pulse Ox 95% on R/A; ll1 14:30 BP 156 / 112; Pulse 113; Resp 20; Pulse Ox 95% ; db 15:30 BP 112 / 80; Pulse 112; Resp 16; Pulse Ox 97% ; db 16:30 BP 167 / 95; Pulse 113; Resp 18; Pulse Ox 95% ; db 18:00 BP 148 / 85; Pulse 112; Resp 20; Pulse Ox 95% on 2 lpm NC; db 09:06 Body Mass Index 23.33 (78.02 kg, 182.88 cm) db ED Course: 09:09 Patient arrived in ED. ph 09:09 Porter Anand PA is PHCP. cp 09:09 Shakir Crouch MD is Attending Physician. cp 09:11 Poonam Felix, RN is Primary Nurse. db 09:11 Arm band placed on Patient placed in an exam room, in a wheelchair, on pulse oximetry. ph 09:13 Porter Ramos MD is Attending Physician. cp 09:15 Triage completed. db 09:34 CT Head Brain wo Cont In Process Unspecified. EDMS 09:50 Inserted Missed attempt(s): 22 gauge in left hand. Bleeding controlled, band aid db applied, catheter tip intact. 09:54 XRAY Chest (1 view) In Process Unspecified. EDMS 09:56 EKG done, by ED staff, reviewed by Porter DIAZ. em1 10:34 US Extremity Venous W Compression Mac In Process Unspecified. EDMS 11:05 Dressings: Kerlix 4X4s. db 11:30 Inserted saline lock: 22 gauge in left forearm, using aseptic technique. Blood db collected. 12:55 initiated transfer to [facility], faxed chart to transfer center as requested by chantel Rodriguez. 13:10 Bed in low position. Call light in reach. Side rails up X2. as6 13:10 Mayorga cath inserted, using sterile technique, 16 Fr., by sc, balloon inflated, to as6 gravity drainage, returned clear yellow urine. Patient tolerated well. 13:34 US Rp Exam Complete In Process Unspecified. EDMS 14:00 Urinalysis W/Microscopic Sent. ll1 15:30 pt accepted in transfer to [facility] to ER by dr Polk admin approval given by Mary Pitts. 18:05 Provided Education on: TRANSFER. Client placed on continuous cardiac and pulse oximetry db monitoring. NIBP monitoring applied. Warm blanket given. 18:05 No provider procedures requiring assistance completed. Patient transferred, IV remains db in place. Administered Medications: 13:50 Drug: NS 0.9% IV 250 ml IV at 250 ml/hr once Route: IV; Rate: 250 ml/hr; Site: left ll1 antecubital; 18:10 Follow up: Response: No adverse reaction db 13:51 Drug: Albuterol Inhalation 2.5 mg Inhalation every 20 minutes x3 Route: Inhalation; ll1 13:51 Drug: Insulin Regular Human Sub-Q 10 units Sub-Q once {Co-Signature: bp (Stephen Silva ll1 RN).} Route: Sub-Q; Site: right upper abdomen; 18:10 Follow up: Response: No adverse reaction db 13:55 Drug: Albuterol Inhalation 2.5 mg Inhalation every 20 minutes x3 Route: Inhalation; ll1 14:00 Drug: Albuterol Inhalation 2.5 mg Inhalation every 20 minutes x3 Route: Inhalation; ll1 15:18 Drug: Kayexalate PO 30 grams PO once Route: PO; db 18:10 Follow up: Response: No adverse reaction db 15:18 Drug: Aspirin PO Chewable Tablet 324 mg PO once; 81 mg tablets x 4 Route: PO; db 18:10 Follow up: Response: No adverse reaction db Medication: 12:53 VIS not applicable for this client. db Point of Care Testing: Blood Glucose: 18:09 Blood Glucose: 232 mg/dL; db Ranges: Outcome: 12:39 ER care complete, transfer ordered by . cp 18:05 Transferred by ground EMS to [facility] Transfer form completed. db 18:05 Condition: stable 18:05 Instructed on the need for transfer, 18:18 Patient left the ED. ll1 Signatures: Dispatcher [employer] EDMS Destinee Sy Eric em1 Tova Donald RN RN ph Porter Anand PA PA Adelso Mendoza RN RN ll1 Danny Mei RN RN as6 Poonam Felix RN RN db Stephen Silva RN bp
--- NOTE | 2023-11-20 12:40 | EDPHYS ---
Physician Documentation [facility] Name: Julianna Kearns Age: 73 yrs Sex: Male : 1950 Arrival Date: 11/20/2023 Time: 09:07 Bed 2 Private MD: ED Physician Porter Ramos HPI: 11/20 09:20 This 73 yrs old Black Male presents to ER via EMS with complaints of Wound Check - cp Repeated Falls. 09:20 Details of fall: The patient fell from a supine position, out of bed. cp 09:20 Onset: The symptoms/episode began/occurred this morning. Associated injuries: The cp patient sustained no obvious injury. Patient brought to ED by EMS after they were called to home for lift assist. Patient reports falling from bed this morning and being unable to get up from ground due to increasing weakness. EMS observed chronic wounds to lower legs that were actively bleeding and so recommended transport to ED for evaluation. Historical: - Allergies: 09:11 PENICILLINS; ph - PMHx: :11 Atrial Fib; caridac stent; CHF; Diabetes - NIDDM; Hypercholesterolemia; Hypertension; ph - PSHx: 09:11 cardiac stent; ph - Immunization history:: Adult Immunizations unknown. - Social history:: Smoking status: Patient denies any tobacco usage or history of. ROS: 09:25 Constitutional: Negative for body aches, chills, fever, poor PO intake, cp 09:25 Eyes: Negative for injury, pain, redness, and discharge, cp 09:25 ENT: Negative for ear pain, sore throat, difficulty swallowing, difficulty handling secretions, :25 Neck: Negative for pain with movement, pain at rest, stiffness, :25 Cardiovascular: Positive for edema, Negative for chest pain, :25 Respiratory: Negative for cough, shortness of breath, wheezing, 09:25 Abdomen/GI: Negative for abdominal pain, vomiting, diarrhea, constipation, black/tarry stool, rectal bleeding, 09:25 Back: Negative for pain at rest, pain with movement, :25 Skin: Positive for chronic wounds to lower legs, :25 Neuro: Positive for weakness, Negative for altered mental status, headache, loss of consciousness, syncope, 09:25 All other systems are negative, Exam: :30 Constitutional: The patient appears in no acute distress, alert, awake, cp non-diaphoretic, non-toxic, well developed, well nourished, 09:30 Head/Face: Normocephalic, atraumatic. cp 09:30 Eyes: Periorbital structures: appear normal, Pupils: equal, round, and reactive to light and accomodation, Extraocular movements: intact throughout, Conjunctiva: normal, no exudate, no injection, Sclera: no appreciated abnormality, Lids and lashes: appear normal, bilaterally, 09:30 ENT: External ear(s): are unremarkable, Nose: is normal, Mouth: Lips: dry, Oral mucosa: moist, Posterior pharynx: Airway: no evidence of obstruction, patent, 09:30 Neck: C-spine: vertebral tenderness, is not appreciated, crepitus, is not appreciated, ROM/movement: is normal, is supple, without pain, no range of motions limitations, 09:30 Chest/axilla: Inspection: normal, Palpation: is normal, no crepitus, no tenderness, 09:30 Cardiovascular: Rate: tachycardic, Rhythm: regular, Edema: pedal edema, that is moderate, ankle edema, that is moderate, JVD: is not appreciated, 09:30 Respiratory: the patient does not display signs of respiratory distress, Respirations: normal, no use of accessory muscles, no retractions, labored breathing, is not present, Breath sounds: decreased breath sounds, that are mild, throughout, stridor, is not appreciated, 09:30 Abdomen/GI: Inspection: abdomen appears normal, Palpation: abdomen is soft and non-tender, in all quadrants, 09:30 Back: pain, is absent, ROM is normal, vertebral tenderness, is not appreciated, 09:30 Skin: multiple large superficial wounds noted to lower legs with mild active bleeding. 09:30 Neuro: Orientation: to person, place \T\ time. Mentation: able to follow commands, slow to respond, Motor: no focal deficits, Sensation: no obvious gross deficits, :52 ECG was reviewed by the Attending Physician. cp Vital Signs: 09:06 BP 179 / 88; Pulse 101; Resp 18; Temp 97.3(TE); Pulse Ox 95% on R/A; Weight 78.02 kg; db Height 6 ft. 0 in. ; 10:00 BP 156 / 84; Pulse 94; Resp 18; Pulse Ox 96% on R/A; db 11:00 BP 99 / 86; Pulse 96; Resp 16; Pulse Ox 96% on R/A; db 13:00 BP 153 / 81; Pulse 102; Resp 19; Pulse Ox 95% on R/A; ll1 14:30 BP 156 / 112; Pulse 113; Resp 20; Pulse Ox 95% ; db 15:30 BP 112 / 80; Pulse 112; Resp 16; Pulse Ox 97% ; db 16:30 BP 167 / 95; Pulse 113; Resp 18; Pulse Ox 95% ; db 18:00 BP 148 / 85; Pulse 112; Resp 20; Pulse Ox 95% on 2 lpm NC; db 09:06 Body Mass Index 23.33 (78.02 kg, 182.88 cm) db MDM: 09:09 Patient medically screened. cp 11:00 Differential diagnosis: sepsis, acute CO, acute kidney failure. cp 13:00 Data reviewed: vital signs, nurses notes, lab test result(s), EKG, radiologic studies, cp CT scan, plain films, and as a result, I will transfer patient. 13:00 Care significantly affected by the following chronic conditions: Diabetes, cp Hypertension, Congestive Heart Failure. Counseling: I had a detailed discussion with the patient and/or guardian regarding the historical points, exam findings, and any diagnostic results supporting the discharge/admit diagnosis, lab results, radiology results, patient and family request transfer to [facility] for care. 16:15 ED course: patient accepted to [facility] without physician consult. cp 11/20 09:17 Order name: Basic Metabolic Panel; Complete Time: 12:27 cp 11/20 12:27 Interpretation: Normal except: K 5.3; CL 108; GLUC 277; BUN 64; CRE 4.04; GFR 15; CA cp 10.3. 11/20 09:17 Order name: CBC with Diff; Complete Time: 12:27 cp 11/20 12:27 Interpretation: Normal except: RBC 5.75; HCT 49.9; RDW 17.4; SHADIA% 85.1; LYM% 5.8; NEUT cp A 8.9; LYMA 0.6. 11/20 09:17 Order name: LFT's; Complete Time: 12:27 cp 11/20 12:28 Interpretation: Normal except: AST 12; TP 9.5; ALB 2.6; GLOB 6.9; A/G 0.4. 11/20 09:17 Order name: Magnesium; Complete Time: 12:27 11/20 16:07 Interpretation: Reviewed. 11/20 09:17 Order name: NT PRO-BNP; Complete Time: 12:27 11/20 12:28 Interpretation: Normal except: NT PRO-BNP 6861. 11/20 09:17 Order name: PT-INR; Complete Time: 12:27 11/20 09:17 Order name: Troponin HS; Complete Time: 12:27 11/20 09:17 Order name: Lactate w/ 2H reflex if indic.; Complete Time: 12:27 11/20 09:17 Order name: Urinalysis W/Microscopic; Complete Time: 16:06 11/20 16:07 Interpretation: Normal except: [facility] Extremely Turbid; UGLUC 4+ (Over); UBLD 1+; UPROT cp 2+; URBC 5-10. 11/20 12:21 Order name: CBC Smear Scan; Complete Time: 12:27 EDND 11/20 13:55 Order name: Glucose, Ancillary Testing; Complete Time: 14:05 EDND 11/20 09:17 Order name: XRAY Chest (1 view); Complete Time: 10:41 11/20 10:41 Interpretation: Report review. 11/20 09:17 Order name: US Extremity Venous W Compression Mac; Complete Time: 11:37 11/20 11:37 Interpretation: Report reviewed. 11/20 09:21 Order name: CT Head Brain wo Cont; Complete Time: 10:41 11/20 10:41 Interpretation: Report reviewed. 11/20 12:40 Order name: US Rp Exam Complete; Complete Time: 16:06 11/20 16:07 Interpretation: Report reviewed. 11/20 09:17 Order name: EKG; Complete Time: 09:18 11/20 09:17 Order name: Cardiac monitoring; Complete Time: 11:11 11/20 09:17 Order name: EKG - Nurse/Tech; Complete Time: 09:56 11/20 09:17 Order name: IV Saline Lock; Complete Time: 11:30 11/20 09:17 Order name: Labs collected and sent; Complete Time: 11:30 11/20 09:17 Order name: O2 Per Protocol; Complete Time: 11:12 cp 11/20 09:17 Order name: O2 Sat Monitoring; Complete Time: 11:12 cp 11/20 10:46 Order name: Wound dressing: please clean and dress wounds; Complete Time: 12:49 cp 11/20 12:40 Order name: Mayorga; Complete Time: 13:10 cp EC:52 Rate is 96 beats/min. Rhythm is regular. ID interval is normal. QRS interval is normal. cp QT interval is normal. Interpreted by me. Reviewed by me. Administered Medications: 13:50 Drug: NS 0.9% IV 250 ml IV at 250 ml/hr once Route: IV; Rate: 250 ml/hr; Site: left ll1 antecubital; 18:10 Follow up: Response: No adverse reaction db 13:51 Drug: Albuterol Inhalation 2.5 mg Inhalation every 20 minutes x3 Route: Inhalation; 1 13:51 Drug: Insulin Regular Human Sub-Q 10 units Sub-Q once {Co-Signature: bp (Stephen Silva ll1 RN).} Route: Sub-Q; Site: right upper abdomen; 18:10 Follow up: Response: No adverse reaction db 13:55 Drug: Albuterol Inhalation 2.5 mg Inhalation every 20 minutes x3 Route: Inhalation; ll1 14:00 Drug: Albuterol Inhalation 2.5 mg Inhalation every 20 minutes x3 Route: Inhalation; ll1 15:18 Drug: Kayexalate PO 30 grams PO once Route: PO; db 18:10 Follow up: Response: No adverse reaction db 15:18 Drug: Aspirin PO Chewable Tablet 324 mg PO once; 81 mg tablets x 4 Route: PO; db 18:10 Follow up: Response: No adverse reaction db Point of Care Testing: Blood Glucose: 18:09 Blood Glucose: 232 mg/dL; db Ranges: Critical Glucose Levels:Adult <50 mg/dl or >400 mg/dl <40 mg/dl or >180 mg/dl Disposition Summary: 11/20/23 12:39 Transfer Ordered Notes: Transfer Location: [facility] cp Reason: Higher level of care cp Condition: Stable cp Problem: new cp Symptoms: have improved cp Accepting Physician: DR Bruce Roberts(11/20/23 18:18) ll1 Diagnosis - Weakness cp - Unspecified kidney failure cp - Hyperkalemia cp - Unspecified combined systolic (congestive) and diastolic (congestive) heart failure cp Forms: - Medication Reconciliation Form cp - SBAR form cp Signatures: Dispatcher [employer] Tova Carnes RN RN Porter Henry PA PA cp Adelso Jasso RN RN ll1 Poonam Felix RN RN db Stephen Silva RN bp Corrections: (The following items were deleted from the chart) 15:17 12:39 Doctor cp cp 18:18 15:17 DR Bruce Roberts cp ll1 11/21 12:52 11/20 13:00 Counseling: I had a detailed discussion with the patient and/or guardian cp regarding the historical points, exam findings, and any diagnostic results supporting the discharge/admit diagnosis, lab results, radiology results, cp
--- NOTE | 2023-11-20 14:24 | RAD REPORT ---
EXAM DESCRIPTION: US - Renal Ultrasound-Complete - 11/20/2023 1:36 pm CLINICAL HISTORY: kidney failure COMPARISON: Renal Ultrasound-Complete dated 01/25/2023 TECHNIQUE: Sonographic grayscale and color flow images of the kidneys and bladder were obtained. FINDINGS: Both kidneys are normal in size, shape, and echotexture. The right kidney measures 9.7 cm in length. No hydronephrosis, or focal mass. Echogenic focus near th e renal pelvis measuring up to 1 cm. Evaluation is limited due to over shadowing ribs. The left kidney measures 8.1 cm in length. No hydro nephrosis, focal mass, or echogenic calculi. The urinary bladder is without gross abnormality seen. IMPRESSION: Suspected right renal pelvis nonobstructed 1 cm calculus. No other acute findings.
[2023-11-20 14:38] LABS: Specific Gravity 1.021 (1.005-1.030); Urine Bilirubin NEGATIVE (Negative); Urine Blood 1+ (Negative); Urine Clarity Extremely Turbid (Clear); Urine Color Light-Yellow (Yellow); Urine Glucose 4+ (Over) (Negative); Urine Protein 2+ (Negative); Urine Urobilinogen Normal (Normal); Urine pH 5.5 (5.0-7.0)
[2023-11-20 14:43] LABS: Urine Bacteria None Seen /HPF (<20); Urine Mucus Slight /HPF (None Seen)
[2023-11-20 18:39] VITALS: BP 167/95; O2SAT 95
== END ==
LOC: ER 09:07
DX: R53.1 Weakness (principal); N19 Unspecified kidney failure; E87.5 Hyperkalemia; I50.40 Unspecified combined systolic (congestive) and diastolic (congestive) heart failure; E11.9 Type 2 diabetes mellitus without complications; I10 Essential (primary) hypertension; I48.91 Unspecified atrial fibrillation; Z95.818 Presence of other cardiac implants and grafts
CPT/HCPCS: 85025; 81001; 80048; 36415; 83735; 85610; 82947 ×2; 80076; 83605; 84484; 83880; 70450; 71045; 93970; 76770; J1815; J7613; J7050; 93005

== ENCOUNTER 2024-01-09 13:35 | Inpatient (IN) | payer OTHER ==
--- OUTSIDE RECORDS SUMMARY | 2024-01-09 13:40 | XMS REPORT | Continuity of Care Document ---
Author Name Unknown Address [address] [facility]. [address] [facility] Address [address] [facility]. 1 495 [place] [address] Care Team Providers Care Chief Radiology Name Role Phone KAPIL DONIS Primary Care Physician UnavailKapil Landaverde Attending Clinician Unavailable Michael Orozco Attending Clinician Loc Alcocer RN, Jose Lazo Attending Clinician Unavail able Romel Yu Attending Clinician [phone] Starla Tafoya MD Attending Clinician [phone] Kel Yin MD Attending Clinician [phone] KEL YIN Attending Clinician Unavailable Brissa Reinoso Attending Clinician Unavaila Chad Ospina Attending Clinician Unavailable Physician, No Primary or Family Admitting Clinic joe Unavailable Starla Tafoya MD Admitting Clinician [phone] STARLA TAFOYA Admitting Clinician Unavailable Payers Payer Name Policy Type Policy Number Effective Date Expirati on Date Source [place] [address] [id number] [facility] Problems Condition Name Condition Details Condition Category Status Onset Date Resolution Date Last Treatment Date Treating Clinician Comments Source Nausea and vomiting in adult Nausea and vomiting in adult Disease Active 03-08 00:00: 00 [facility] MULLER (dyspnea on exertion) MULLER (dyspnea on exertion) Disease Active 03-08 00:00: 00 [facility] 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 Disease Active 03-08 00:00: 00 [facility] Dyslipidem ia Dyslipidem ia Disease Active 03-08 00:00: 00 [facility] Uncontroll ed hypertensi on Uncontroll ed hypertensi on Disease Active 03-08 00:00: 00 [facility] Chronic heart failure with preserved ejection fraction Chronic heart failure with preserved ejection fraction Disease Active 03-08 00:00: 00 [facility] PAF (paroxysma l atrial fibrillati on) PAF (paroxysma l atrial fibrillati on) Disease Active 03-08 00:00: 00 [facility] Type 2 diabetes mellitus with other specified complicati on Type 2 diabetes mellitus with other specified complicati on Disease Active 03-08 00:00: 00 [facility] Elevated troponin I level Elevated troponin I level Disease Active 03-08 00:00: 00 [facility] Angina of effort Angina of effort Disease Active 02-17 00:00: 00 [facility] [id number] ED (erectile dysfunctio n) of organic origin Problem Active [facility] [id number] Prostate nodule Problem Active [facility] [id number] Urge incontinen ce Problem Active [facility] [id number] Lower urinary tract symptoms (LUTS) Problem Active [facility] Allergies, Adverse Reactions, Alerts Allergy Name Allergy Type Status Severity Reaction(s) Onset Date Inactive Date Treating Clinician Comments Source Penicill ins DA Active SV HIVES 8-05 00:00: 00 EMILEE miller [facility] Penicill ins Propensi ty to adverse reaction s Active Rash 02-17 00:00: 00 [facility] PENICILL INS Drug Class Active Rash 02-17 00:00: 00 [facility] Social History Social Habit Start Date Stop Date Quantity Comments Source History of tobacco use Passive smoker [facility] History SDOH Alcohol Std Drinks [facility] History SDOH Alcohol Binge [facility] History SDOH Social Connections Get Together [facility] History SDOH Social Connections Yazidism [facility] History SDOH Social Connections Membership [facility] History SDNM Social Connections Meetings [facility] Tobacco use and exposure 2023-03-08 00:00:00 2023-03-08 00:00:00 Smokeless tobacco non-user [facility] Alcohol intake 2023-03-08 00:00:00 2023-03-08 00:00:00 3 /d [facility] History SDOH Alcohol Frequency 2023-03-08 00:00:00 2023-03-08 00:00:00 1 [facility] History SDOH Social Connections Phone 2023-03-08 00:00:00 2023-03-08 00:00:00 5 [facility] History SDOH Social Connections Living 2023-03-08 00:00:00 2023-03-08 00:00:00 3 [facility] History SDOH Financial 2023-03-08 00:00:00 2023-03-08 00:00:00 5 [facility] History SDOH Food Worry 2023-03-08 00:00:00 2023-03-08 00:00:00 1 [facility] History SDOH Food Scarcity 2023-03-08 00:00:00 2023-03-08 00:00:00 1 [facility] History SDOH Transport Med 2023-03-08 00:00:00 2023-03-08 00:00:00 2 [facility] History SDOH Transport Non-Med 2023-03-08 00:00:00 2023-03-08 00:00:00 2 [facility] History SDOH Housing Unable to Pay 2023-03-08 00:00:00 2023-03-08 00:00:00 2 [facility] History SDOH Housing Places Lived 2023-03-08 00:00:00 2023-03-08 00:00:00 1 [facility] History SDOH Housing Homeless Last Year 2023-03-08 00:00:00 2023-03-08 00:00:00 2 [facility] Tobacco Comment 2023-03-08 00:00:00 2023-03-08 00:00:00 quit smoking 20 yrs ago [facility] Sex Assigned At 1950 00:00:00 1950 00:00:00 [facility] Smoking Status Start Date Stop Date Source Ex-smoker 2023-03-08 00:00:00 2023-03-08 [facility] Ordered Medication Name Filled Medication Name Start Date Stop Date Current Medication? Ordering Clinician Indication Dosage Frequency Signature (SIG) Comments Components Source insulin glargine 100 unit/mL injection 03-10 00:00: 00 Yes [id number] 15U inject 15 Units under the skin in the morning. [facility] amLODIPine 10 mg tablet 03-10 00:00: 00 04-10 04:59 :00 No [id number] 10mg Take 1 tablet by mouth in the morning for 30 days. [facility] metoprolol succinate XL 50 mg 24 hr tablet 03-10 00:00: 00 04-10 04:59 :00 No [id number] 50mg Take 1 tablet by mouth in the morning for 30 days. [facility] glimepiride (AMARYL) 4 mg tablet 03-09 19:56: 26 Yes 4mg Take 4 mg by mouth daily with breakfast. [facility] ALPRAZolam (XANAX) 1 mg tablet 03-09 19:56: 26 Yes 1mg Take 1 mg by mouth 3 (three) times daily. [facility] omega-3 fatty acids-vitam in E (FISH OIL) 1,000 mg capsule 03-09 19:56: 26 Yes 1g Take 1 g by mouth daily. [facility] rosuvastati n (CRESTOR) 10 mg tablet 03-09 15:36: 42 03-09 00:00 :00 No 10mg Take 10 mg by mouth at bedtime. [facility] metoprolol succinate XL (TOPROL XL) 50 mg 24 hr tablet 03-09 15:36: 42 03-09 00:00 :00 No 50mg Take 50 mg by mouth daily. [facility] hydrochloro thiazide (ESIDRIX) 25 mg tablet 03-09 15:36: 42 03-09 00:00 :00 No 25mg Take 25 mg by mouth daily. [facility] canaglifloz in (INVOKANA) 300 mg tablet 03-09 15:36: 42 03-09 00:00 :00 No Take by mouth. [facility] metFORMIN (GLUCOPHAGE ) 1,000 mg tablet 03-09 15:36: 42 03-09 00:00 :00 No 1000mg Take 1,000 mg by mouth 2 (two) times daily with meals. [facility] Amlodipine- Olmesartan (SKYLAR) 10-40 mg per tablet 03-09 15:36: 42 03-09 00:00 :00 No Take by mouth. [facility] INSULIN DETEMIR (LEVEMIR FLEXTOUCH SC) 03-09 15:36: 42 03-09 00:00 :00 No inject under the skin. [facility] aspirin 81 mg EC tablet 03-09 15:36: 42 03-09 00:00 :00 No 81mg Take 81 mg by mouth daily. [facility] rosuvastati n (CRESTOR) tablet 10 mg 03-09 02:00: 00 Yes 10mg 10 mg, Oral, QHS, First dose on Mon03/08/23 at 2100, Until Discontinu ed, Routine [facility] aspirin 81 mg EC tablet 03-09 00:00: 00 04-09 04:59 :00 No [id number] 81mg Take 1 tablet by mouth in the morning for 30 days. [facility] hydroCHLORO thiazide 25 mg tablet 03-09 00:00: 00 04-09 04:59 :00 No [id number] 25mg Take 1 tablet by mouth in the morning for 30 days. [facility] metFORMIN 1,000 mg tablet 03-09 00:00: 00 04-09 04:59 :00 No [id number] 1000mg Take 1 tablet by mouth in the morning and 1 tablet in the evening. Take with meals. Do all this for 30 days. [facility] rosuvastati n 10 mg tablet 03-09 00:00: 00 04-09 04:59 :00 No [id number] 10mg Take 1 tablet by mouth at bedtime for 30 days. [facility] sulfur hexafluorid e microsphr (LUMASON) injection 5 mL 03-08 15:45: 00 03-08 15:45 :00 No [id number] 5mL 5 mL, Intravenou s, ONCE, 1 dose, On Mon03/08/23 at 1045, Routine
city council member approving Restricted medication : RONALD AVILA [facility] Saline Bubble Study 03-08 15:41: 23 Yes [id number] 6mL 6 mL, Injection, SEE-INSTRU CTIONS, Starting on Mon03/08/23 at 1041, Until Discontinu ed, Routine [facility] insulin glargine (LANTUS U-100) injection 15 Units 03-08 14:15: 00 Yes 15U 15 Units, Subcutaneo us, DAILY, First dose on Mon03/08/23 at 0915, Until Discontinu ed, Routine [facility] amLODIPine (NORVASC) tablet 10 mg 03-08 14:15: 00 Yes 10mg 10 mg, Oral, DAILY, First dose on Mon03/08/23 at 0915, Until Discontinu ed, Routine [facility] metoprolol succinate XL (TOPROL XL) tablet 50 mg 03-08 14:15: 00 Yes 50mg 50 mg, Oral, DAILY, First dose on Mon03/08/23 at 0915, Until Discontinu ed, Routine [facility] hydroCHLORO thiazide (ESIDRIX) tablet 25 mg 03-08 14:15: 00 Yes 25mg 25 mg, Oral, DAILY, First dose on Mon03/08/23 at 0915, Until Discontinu ed, Routine [facility] aspirin EC tablet 81 mg 03-08 14:15: 00 Yes 81mg 81 mg, Oral, DAILY, First dose on Mon03/08/23 at 0915, Until Discontinu ed, Routine [facility] ALPRAZolam (XANAX) tablet 1 mg 03-08 14:04: 36 Yes 1mg 1 mg, Oral, TIDPRN, Starting on Mon03/08/23 at 0904, Until Discontinu ed, Routine, Anxiety [facility] Sliding Scale Insulin - Lispro (HumaLOG) 03-08 13:00: 00 Yes Subcutaneo us, TID MEALS+HS, First dose on Mon03/08/23 at 0800, Until Discontinu ed, Routine [facility] heparin (porcine) injection 5,000 Units 03-08 11:00: 00 Yes 5000U 5,000 Units, Subcutaneo us, Q8H, First dose on Mon03/08/23 at 0600, Until Discontinu ed, Routine [facility] hydralAZINE (APRESOLINE ) injection 10 mg 03-08 09:38: 44 Yes 10mg 10 mg, Slow IV Push, Q4HPRN, Starting on Mon03/08/23 at 0438, Until Discontinu ed, Routine, DBP=>100; SBP=>180 [facility] glucagon (GLUCAGEN DIAGNOSTIC KIT) injection 1 mg 03-08 09:36: 45 Yes 1mg 1 mg, Intramuscu lar, PRN, Starting on Mon03/08/23 at 0436, Until Discontinu ed, RENETTA, Blood Glucose < or = 70 mg/dL and patient is NPO, unable to swallow or has mental changes. [facility] dextrose 50 % in water (D50W) injection 25 mL 03-08 09:36: 45 Yes 25mL 25 mL, Slow IV Push, PRN, Starting on Mon03/08/23 at 0436, Until Discontinu ed, RENETTA, Blood Glucose < or = 70 mg/dL and patient is NPO, unable to swallow or has mental status changes. [facility] ondansetron (ZOFRAN (PF)) injection 4 mg 03-08 09:36: 24 Yes 4mg 4 mg, Slow IV Push, Q6HPRN, Starting on Mon03/08/23 at 0436, Until Discontinu ed, Routine, Nausea and Vomiting (N/V) [facility] HYDROcodone -acetaminop hen (NORCO 5) 5-325 mg tablet 1 tablet 03-08 09:36: 16 03-10 09:35 :16 No 1{tbl} 1 tablet, Oral, Q6HPRN, Starting on Mon03/08/23 at 0436, Until Mon03/10/23 at 0435, Routine, Pain (scale 4-6) [facility] acetaminoph en (TYLENOL) tablet 650 mg 03-08 09:36: 10 Yes 650mg 650 mg, Oral, Q6HPRN, Starting on Mon03/08/23 at 0436, Until Discontinu ed, Routine, Pain (scale 1-3), Temp > 38 C [facility] ondansetron (ZOFRAN (PF)) injection 4 mg 03-08 05:45: 00 03-08 05:40 :00 No 4mg 4 mg, Slow IV Push, ONCE, 1 dose, On Mon03/08/23 at 0045, RENETAT [facility] VESIcare 5 MG VESIcare 5 MG [...] Systolic blood pressure 2023-03-10 00:08:00 163 mm[Hg] [facility] Diastolic blood pressure 2023-03-10 00:08:00 90 mm[Hg] [facility] Heart rate 2023-03-10 00:08:00 70 /min [facility] Body temperature 2023-03-10 00:08:00 35.17 Teresa [facility] Respiratory rate 2023-03-10 00:08:00 16 /min [facility] Oxygen saturation in Arterial blood by Pulse oximetry 2023-03-10 00:08:00 90 /min [facility] Body weight 2023-03-09 08:37:00 102.967 kg [facility] BMI 2023-03-09 08:37:00 30.79 kg/m2 [facility] Body height 2023-03-08 09:35:00 182.9 cm [facility] height 2020-12-03 11:15:00 70 [in_i] Commo n [facility] weight 2020-12-03 11:15:00 197 [lb_av] Comm on [facility] temperature 2020-12-03 11:15:00 97.6 [degF] Com mon [facility] bmi 2020-12-03 11:15:00 28.26 kg/m2 Comm on [facility] oximetry 2020-12-03 11:15:00 97 % Commo n [facility] blood pressure systolic 2020-12-03 11:15:00 139 mm[Hg] [facility] blood pressure diastolic 2020-12-03 11:15:00 64 mm[Hg] Common [facility] height 2020-08-24 14:00:00 70 [in_i] Commo n [facility] weight 2020-08-24 14:00:00 199.6 [lb_av] Co mmon [facility] temperature 2020-08-24 14:00:00 98.4 [degF] Com mon [facility] bmi 2020-08-24 14:00:00 28.64 kg/m2 Comm on [facility] oximetry 2020-08-24 14:00:00 96 % Commo n [facility] blood pressure systolic 2020-08-24 14:00:00 197 mm[Hg] Common [facility] blood pressure diastolic 2020-08-24 14:00:00 86 mm[Hg] [facility] Procedures Procedure Date / Time Performed Performing Clinician Source POCT GLUCOSE (AUTOMATED) 2023-03-09 21:33:00 Janiya Tafoya [facility] POCT GLUCOSE (AUTOMATED) 2023-03-09 16:39:00 Janiya Tafoya [facility] POCT GLUCOSE (AUTOMATED) 2023-03-09 12:45:00 Janiya Tafoya [facility] PHOSPHORUS 2023-03-09 09:02:00 Kel Yin [facility] MAGNESIUM 2023-03-09 09:02:00 Starla Tafoya [facility] TROPONIN I 2023-03-09 09:02:00 Kel Yin [facility] HEPATIC FUNCTION PANEL ([id number]) (ALB,T.PRO,BILI T,BU/BC,ALT,AST,ALK PHOS) 2023-03-09 09:02:00 Kel Yin [facility] BASIC METABOLIC PANEL (NA, K, CL, CO2, GLUCOSE, BUN, CREATININE, CA) 2023-03-09 09:02:00 Starla Tafoya [facility] CBC WITH DIFF 2023-03-09 09:02:00 Jagdish Martin [facility] N-TERMINAL PRO-BNP 2023-03-09 09:02:00 Kel Yin [facility] POCT GLUCOSE (AUTOMATED) 2023-03-09 02:08:00 Janiya Tafoya fay [facility] TROPONIN I 2023-03-08 22:51:00 Michelet [facility] GLYCOSYLATED HEMOGLOBIN (A1C) 2023-03-08 22:51:00 Jagdish Martin [facility] POCT GLUCOSE (AUTOMATED) 2023-03-08 21:22:00 Janiya Tafoya [facility] POCT GLUCOSE (AUTOMATED) 2023-03-08 16:16:00 Janiya Tafoya fay [facility] TRANSTHORACIC ECHO (TTE) COMPLETE W/ CONTRAST 2023-03-08 14:29:[facility] 2023-03-08 12:39:00 Janiya Tafoya [facility] PHOSPHORUS 2023-03-08 11:24:[facility] 2023-03-08 11:24:00 Michelet [facility] N-TERMINAL PRO-BNP 2023-03-08 11:24:00 Candi Patel [facility] XR CHEST 1 VW 2023-03-08 06:27:00 Temi Holloway [facility] HB ECG ROUTINE & RHYTHM STRIP 2023-03-08 05:39:37 Temi Holloway [facility] LIPASE 2023-03-08 05:39:00 Temi Holloway [facility] TROPONIN I 2023-03-08 05:39:00 Temi Holloway [facility] THYROID STIMULATING HORMONE 2023-03-08 05:39:00 Starla Tafoya [facility] COMP. METABOLIC PANEL (78422) 2023-03-08 05:39:00 Temi Holloway [facility] LIPID PANEL (78663)(TOTAL CHOLESTEROL, TRIGLYCERIDES, HDL) 2023-03-08 05:39:00 Starla Tafoya [facility] CBC WITH DIFF 2023-03-08 05:39:00 Temi Holloway [facility] GLYCOSYLATED HEMOGLOBIN (A1C) 2023-03-08 05:39:00 Michelet [facility] Encounters Start Date/Time End Date/Time Encounter Type Admission Type Attending [facility] Care Facility Care Department Encounter ID Source 2021-10-27 12:15:25 Outpatient Donis, Kapil [facility] [id number] [facility] 2021-10-27 12:07:45 Outpatient [facility] [id number] [facility] 2023-08-08 10:16:00 2023-08-08 10:16:00 Outpatient MAGDALENE Pittelizabeth Michael [facility] EKG [id number] [facility] 2023-03-10 00:00:00 2023-03-10 00:00:00 Transition of Care Jose Alcocer [id number] [facility] 2023-03-08 00:29:00 2023-03-09 19:46:00 Emergency Romel Montez Jelani Abdullah, Yaman [facility] [id number] [facility] 2023-03-08 00:29:00 2023-03-09 19:46:00 Outpatient KEL ALVAREZ [facility] [id number] [facility] 2022-05-31 08:52:00 2022-05-31 08:52:00 Outpatient Brissa Dial [facility] [id number] [facility] 2022-05-11 10:11:00 2022-05-11 10:11:00 [facility] [id number] [facility] 2022-05-11 10:11:00 2022-05-11 10:11:00 Outpatient Chad Rae [facility] [id number] [facility] 2020-12-03 00:00:00 2020-12-03 00:00:00 OFFICE VISIT ESTAB PT LEVEL 2 [facility] [id number] [facility] 2020-08-24 00:00:00 2020-08-24 00:00:00 OFFICE VISIT NEW PT LEVEL 4 [facility] ST[facility] [id number] [facility] Results Test Description Test Time Test Comments Results Result Co mments Source [facility] GLUCOSE (AUTOMATED)2023-03-09 16:43:52* Test Item Value Reference Range Interpretation Comme nts POCT GLU (test code = 8170306239) 138 mg/dL 70-110 H Lab Interpretation (test cod e = 90518-6) Abnormal [facility] GLUCOSE (AUTOMATED)2023-03-09 12:55:44* Test Item Value Reference Range Interpretation Comme nts POCT GLU (test code = 3467949147) 126 mg/dL 70-110 H Lab Interpretation (test cod e = 71739-2) Abnormal [facility] GLUCOSE (AUTOMATED)2023-03-09 02:09:42* Test Item Value Reference Range Interpretation Comme nts POCT GLU (test code = 4334325861) 115 mg/dL 70-110 H Lab Interpretation (test cod e = 65015-3) Abnormal [facility] GLUCOSE (AUTOMATED)2023-03-08 21:32:42* Test Item Value Reference Range Interpretation Comme [facility] POCT GLU (test code = 5844632018) 266 mg/dL 70-110 H Lab Interpretation (test cod e = 34323-4) Abnormal [facility] GLUCOSE (AUTOMATED)2023-03-08 16:26:44* Test Item Value Reference Range Interpretation Comme [facility] POCT GLU (test code = 7517345782) 195 mg/dL 70-110 H Lab Interpretation (test cod e = 21775-8) Abnormal [facility] GLUCOSE (AUTOMATED)2023-03-08 12:40:58* Test Item Value Reference Range Interpretation Comme [facility] POCT GLU (test code = 8880175962) 179 mg/dL 70-110 H Lab Interpretation (test cod e = 07396-3) Abnormal [facility]TSH)2023-03-08 11:56:52* Test Item Value Reference Range Interpretation Comme [facility] TSH (test code = 2460469414) 5.09 See_Comment H Biotin has been reported to cause a negative bias, interpret results relative to patient's use of biotin. [Automated message] The system which generated this result transmitted reference range: 0.45 - 4.70 mIU/L. The reference range was not used to interpret this result as normal/abnormal. Lab Interpretation (test code = 96041-2) Abnormal [facility] (A1C)2023-03-08 11:27:39* Test Item Value Reference Range Interpretation Comme [facility] HGB A1C (test code = 4548-4) 9.3 % 4.0-5.7 H TRINIDAD (test code = TRINIDAD) Reference RangesNormal: <5.7%Prediabetes: 5.7 - 6.4%Diabetes: > 6.5% Lab Interpretation (test code = 76366-9) Abnormal [facility] (Total Cholesterol, Triglycerides, HDL)2023-03-08 11:14:15* Test Item Value Reference Range Interpretation Comme nts CHOL (test code = 3180427404) 166 mg/dL 120-200 HDL (test code = 3874068381) 51 mg/dL >=40 HDLC RATIO (test code = 4042533635) 3.3 <=5.0 TRIG (test code = 0349588060) 83 mg/dL 30-170 LDL CHOL (test code = 21221-3) 98 mg/dL <=160 VLDL (test code = 6703708880) 17 mg/dL 5-60 Lab Interpretation (test cod e = 56591-1) Normal [facility] [id number] 06:21:21* Test Item Value Reference Range Interpretation Comme nts TROPONIN I (test code = 5165753142) 0.075 ng/mL <=0.034 H TRINIDAD (test code [...] of biotin. Lab Interpretation (test code = 40775-2) Abnormal [facility]. METABOLIC PANEL (80948)2023-03-08 06:10:20* Test Item Value Reference Range Interpretation Comme nts NA (test code = 6132745898) 135 mmol/L 135-145 K (test code = 0055225029) 4.3 mmol/L 3.5-5.0 CL (test code = 2734383550) 104 mmol/L 98-108 CO2 TOTAL (test code = 1621998114) 26 mmol/L 23-31 AGAP (test code = 2357629229) 5 2-16 BUN (test code = 9375984624) 27 mg/dL 7-23 H GLUCOSE (test code = 0964999737) 243 mg/dL 70-110 H CREATININE (test code = 5556426889) 2.15 mg/dL 0.60-1.25 H TOTAL BILI (test code = 5445022815) 0.8 mg/dL 0.1-1.1 CALCIUM (test code = 9992477584) 8.2 mg/dL 8.6-10.6 L T PROTEIN (test code = 6079330784) 6.0 g/dL 6.3-8.2 L ALBUMIN (test code = 5946326413) 2.5 g/dL 3.5-5.0 L ALK PHOS (test code = 2026226572) 60 U/L 34-122 ALTv (test code = 1742-6) 17 U/L 5-50 AST(SGOT) (test code = 2066887227) 26 U/L 13-40 eGFR (test code = 4852102274) 30.1 mL/min/1.73m2 TRINIDAD (test code = TRINIDAD) [...] imaging tests). Lab Interpretation (test code = 37947-8) Abnormal [facility] [id number] 06:09:44* Test Item Value Reference Range Interpretation Comme nts LIPASE (test code = 1165885598) 101 U/L 0-220 Lab Interpretation (test cod e = 75632-6) Normal [facility] WITH [id number] 05:51:59* Test Item Value Reference Range Interpretation Comme nts WBC (test code = 6690-2) 5.65 See_Comment [Automated messa ge] The system which generated this result transmitted reference range: 4.20 - 10.70 10*3/?L. The reference range was not used to interpret this result as normal/abnormal. RBC (test code = 789-8) 5.73 See_Comment H [Automated messa ge] The system which generated [...] 31.9 g/dL 31.2-35.0 RDW-SD (test code = 01220-4) 56.7 fL 38.5-51.6 H RDW-CV (test code = 788-0) 19.4 % 12.1-15.4 H PLT (test code = 777-3) 232 See_Comment [Automated messa ge] The system which generated this result transmitted reference range: 150 - 328 10*3/?L. The reference range was not used to interpret this result as normal/abnormal. MPV (test code = 54206-2) 10.5 fL 9.8-13.0 NRBC/100 WBC (test code = 9333477682) 0.0 See_Comment [Automated [employer] ssage] The system which generated this result transmitted reference range: 0.0 - 10.0 /100 WBCs. The reference range was not used to interpret this result as normal/abnormal. NRBC x10^3 (test code = 9278511096) See_Comment [Automated messa ge] The system which generated this result transmitted reference range: 10*3/?L. The reference range was not used to interpret this result as normal/abnormal. GRAN MAT (NEUT) % (test code = 770-8) 68.1 % IMM GRAN % (test code = 1427844444) 0.20 % LYMPH % (test code = 736-9) 20.0 % MONO % (test code = 5905-5) 9.2 % EOS % (test code = 713-8) 1.6 % BASO % (test code = 706-2) 0.9 % GRAN MAT x10^3(ANC) (test code = 3524632964) 3.85 10*3/uL 1.99-6.95 IMM GRAN x10^3 (test code = 7364443964) 0.00-0.06 LYMPH x10^3 (test code = 731-0) 1.13 10*3/uL 1.09-3.23 MONO x10^3 (test code = 742-7) 0.52 10*3/uL 0.36-1.02 EOS x10^3 (test code = 711-2) 0.09 10*3/uL 0.06-0.53 BASO x10^3 (test code = 704-7) 0.05 10*3/uL 0.01-0.09 Lab Interpretation (test code = 54258-8) [facility] [id number] 10:17:00 * Test Item Value Reference Range [...] waivedcomplexity tests. - CTA HEART W CN ART/BHPMRG2564-58-38 00:00:00 [facility] : 1950 Sex: M Name: ALBERT MARQUEZ [facility] Dagmar Jeronimo : 1950 Age/S: 72 / M [address] [place] [address] Blvd Unit #: [id number] Loc: MARCEL [place] [address] Phys: Brissa Reinoso [facility] Acct: [id number] Dis Date: Status: REG CLIPHONE #: [phone] Exam Date: 05/31/2022 1012 FAX #: [phone] Reason: EXAMS: CPT CODE: [id number] CTA HEART W CN ART/GRAFTS 41941 PROCEDURE INFORMATION: Exam: CTA Heart And Coronary [...] intervention: None. COMPARISON: No relevant prior studies avail able. FINDINGS: CARDIAC CTA/THORACIC CTA: AORTIC VALVE: There is a trileaflet aortic valve. There is severe calcification involving the aortic valve leaflets. The total calcium score of the aortic valve is 1658. THORACIC AORTA: There is mild atherosclerosis of the thoracic aorta. There is a left sided aortic arch. There is no evidence of aortic dissection. Aortic arch vessels are patent. THORACICAORTIC MEASUREMENTS: Thoracic aortic measurements are obtained at [...] Report (CONTINUED) Name: ALBERT MARQUEZ [facility] : 1950 Age/S: 72 / M [address] [place], [place] [address]vd Unit #: [id number] Loc: M[place]EL [place] [address] Phys: Brissa Reinoso [facility] Acct: [id number] Dis Date: Status: REG CLI PHONE #: [phone] Exam Date: 05/31/2022 1012 FAX #: [phone] Reason: EXAMS: CPT CODE: [id number] CTA HEART W CN ART/GRAFTS 01280 (Continued) mitral annular calcification. PERICARDIUM: No evidence [...] changes consistent with mild edema. BONES AND SOFTTISSUES: There are no bony lytic or blastic lesions. IMPRESSION: Severe calcification of the aorticvalve compatible with aortic stenosis. The total calcium [...] Report (CONTINUED) Name: ALBERT MARQUEZ [facility] : 1950 Age/S: 72 / M [address] [place] [address] Blvd Unit #: [id number] Loc: MARCEL [place] [address] Phys: Brissa Reinoso [facility] Acct: [id number] Dis Date: Status: REG CLI PHONE #: [phone] Exam Date: 05/31/2022 1012 FAX #: [phone] Reason: EXAMS: CPT CODE: [id number] CTA HEART W CN ART/GRAFTS 24563 (Continued) Small uncomplicated fat containing umbilical hernia. IMPRESSION: Mild atherosclerosis of the abdominal aorta which is widely patent with a minimal luminal diameterof 18 x 17 mm in the infrarenal segment. Moderate atherosclerosis of the bilateral iliofemoral branches. The bilateral common iliac, external iliac and common femoral arteries are patent, measuring 6 mm or greater. Mild wall thickening of the underdistended bladder. This could simply be the resultof underdistention however a mild cystitis is not excluded. Clinical correlation and correlation with urinalysis recommended. at 1723 Reported and signed by: Wood Duran M.D. CC: Brissa Reinoso Technologist:Berry Hearn, RT(R)(CT) CTDI: DLP: Trnscb Date/Time: 05/31/2022 (1722) YassineKS43 Orig Print D/T: S: 05/31/2022 (1722) PAGE 3 Signed Report- CTA ABD PEL W CONT 2022-05-31 00:00:00 [facility] : 1950 Sex: M Name: ALBERT MARQUEZ [facility] [place] : 1950 Age/S: 72 / M [address] [place] [address] Blvd Unit #: [id number] Loc: MARCEL [place] [address] Phys: Brissa Reinoso Acct: [id number] Dis Date: Status: MITZY RAMESHJESSICA #: [phone] Exam Date: 05/31/2022 1012 FAX #: [phone] Reason: 135.0, SEVERE AORTIC STENOSIS. EXAMS: CPT CODE: [id number] CTA ABD PEL W CONT 81461 PROCEDURE INFORMATION: Exam: CTA Heart And Coronary [...] Report (CONTINUED) Name: ALBERT MARQUEZ [facility] : 1950 Age/S: 72 / M [address] [facility] Unit #: [id number] Loc: MARCEL [place] [address] Phys: Brissa Reinoso [facility] Acct: [id number] D is Date: Status: REG CLI PHONE #: [phone] Exam Date: 05/31/2022 1012 FAX #: [phone] Reason: 135.0, SEVERE AORTIC STENOSIS. EXAMS: CPT CODE: [id number] CTA ABD PEL W CONT 41811 (Continued) mitral annular calcification. PERICARDIUM: No evidence of pericardial effusion. MEDIASTINUM: Mild enlargement of mediastinal lymph nodes in the right paratracheal region, left paratracheal region, left AP window, bilateral hilar and infracarinal stations, the largest in the right paratracheal regionmeasuring up to 18 mm. LUNGS AND PLEURA: [...] in nature . Follow-up CT chest with IVcontrast is suggested in 6 months to reassess. [...] 2 Signed Report (CONTINUED) Name: ALBERT MARQUEZ [facility] Dagmar Jeronimo : 1950 Age/S: 72 / M [address] [place] [address] Blvd Unit #: [id number] Loc: [place] [address] Phys: Brissa Reinoso Acct: [id number] Dis Date: Status: REG CLI PHONE #: [phone] Exam Date: 05/31/2022 1012 FAX #: [phone] Reason: 135.0, SEVERE AORTIC STENOSIS. EXAMS: CPT CODE: [id number] CTA ABD PEL W CONT 83583 (Continued) Small uncomplicated fat containing umbilical hernia. IMPRESSION: Mild atherosclerosis of theabdominal aorta which is widely patent with a [...] Clinical correlation and correlation with urinalysis recommended. E lectronically Signed by April Duran on 05/31/2022 at 1723 Reported and signed by: Wood Duran M.D. CC: Brissa Reinoso Technologist:Berry Hearn RT(R)(CT) CTDI: DLP: Trnscb Date/Time: 05/31/2022 (172) tMORALES.KS43 Orig Print D/T: S: 05/31/2022 (1724) PAGE 3 Signed Report- CT ANGIO [id number] 00:00[facility]00[facility] : 1950 Sex: M Name: ALBERT MARQUEZ [facility] [place] : 1950 Age/S: 72 / M [address] [place] [address] Blvd Unit #: [id number] Loc: MARCEL [place] [address] Phys: Brissa Reinoso [facility] Acct: [id number] Dis Date: Status: REG CLIPHONE #: [phone] Exam Date: 05/31/2022 1012 FAX #: [phone] Reason: 135.0 , SEVERE AORTICSTENOSIS. EXAMS: CPT CODE: [id number] CT ANGIO CHEST 04636 PROCEDURE INFORMATION: Exam: CTA Heart And Coronary [...] were created by the technologist. Radiation optimization: AllCT scans at this facility use at least one of these dose optimization techniques: automated exposure control; mA and/or kV adjustment per patient size (includes targeted exams where dose is matched to clinical indication); or iterative reconstruction. Contrast material: ISOVUE 370; Contrast volume:100 ml; Contrast route: INTRAVENOUS (IV); Pharmacological intervention: [...] Report (CONTINUED) Name: ALBERT MARQUEZ [facility] : 1950 Age/S: 72 / M [address] [place] [address] Blvd Unit #: [id number] Loc: [place] [address] Phys: Brissa Reinoso [facility] Acct: [id number] Dis Date: Status: REG CLI PHONE #: [phone] Exam Date: 05/31/2022 1012 FAX #: [phone] Reason: 135.0 , SEVERE AORTIC STENOSIS. EXAMS: CPT CODE: [id number] CT ANGIO CHEST 28396 (Continued) mitral annular calcification. PERICARDIUM: No evidence of pericardial effusion. MEDIASTINUM: Mild enlargement of mediastinal lymph nodes in the right paratracheal region, left paratracheal region, left APwindow, bilateral hilar and infracarinal stations, the largest in the right paratracheal region measuring up to 18 mm. LUNGS AND PLEURA: There are small bilateral pleural effusions with mild adjacentatelectasis. There is mild interlobular septal thickening bilaterally [...] 18 mm in the right paratracheal region. Inthe presence of edema, these are most likely [...] Report (CONTINUED) Name: ALBERT MARQUEZ [facility] : 1950 Age/S: 72 / M [address] [place] [address] Unit #: [id number] Loc: [place] [address] Phys: KemarLiufayjill [facility] Acct: [id number] Dis Date: Status: REG CLI PHONE #: [phone] Exam Date: 05/31/2022 1012 FAX #: [phone] Reason: 135.0 , SEVERE AORTIC STENOSIS. EXAMS: CPT CODE: [id number] CT ANGIO CHEST 47354 (Continued) Small uncomplicated fat containing umbilical hernia. [...] Clinical correlation and correlation with urinalysis recommended. Electroni morelia Signed by April Duran on 05/31/2022 at 1723 Reported and signed by: Wood Duran M.D. CC: Brissa Reinoso Technologist:Berry Hearn, RT(R)(CT) CTDI: DLP: Trnscb Date/Time: 05/31/2022 (1723) [email or web address] Orig Print D/T: S: 05/31/2022 (6624) PAGE 3 Signed ReportGLUCOSE [id number] 09:36:00 * Test Item Value Reference Range Interpretation Comme nts GLUCOSE BEDSIDE (test code = GLUBED) 137 MG/DL 70-110 H Performed by cer lisa joggle press operator at [facility] BASIC METABOLIC [id number] 16:24:00* Test Item Value Reference Range Interpretation [...] = CA) 8.9 mg/dL 8.0-10.5 N PROTHROMBIN [id number] 16:19:00* Test Item Value Reference Range Interpretation [...] Infarction (to prevent recurrent infarct). CBC W/AUTO LJSY3065-64-63 16:09:00* Test Item Value Reference Range Interpretation [...] Notes Date/Time Note Provider Source 2023-08-08 15:06:00 [id number] Of8yjG3EHUipYWmbgcJOma/UzZp2e adnxje/NZE8HG7c7HadkFuF+kf32633-97-73Q22:06:01849 7-[address] [address] PATIENT NAME: ALBERT MARQUEZ ADMIT DATE: 08/08/23ACCOUNT NO: [id number] ROOM NO: AGE: 73 REPORT TYPE: eECHOCARDIOGRAM REPORT SEX: M ADMITTING PHYSICIAN: ATTENDING PHYSICIAN: Michael Orozco DO *[facility]*[address] [place] [address]Qsjqa Transthoracic Echocardiogram Patient: Mauirsio Marqueztudy Date: 08/08/2023 BP: [id number] 1950 Age: 73 Height: 72 in / 182.9 cmAccession#: [id number] Gender: M Weight: 188.6 lb / 85.7 kgBMI/BSA: 25.6 kg/m 2 / 2.08 m 2 *Ordering Physician: * Michael OrozcoInterpreting Physician: * Osmany Griffith MD*Platform Software Engineer: * Rachael Melo Indications: CAD. Atrial Fibrillation. Study data: Transthoracic echocardiogram. Procedure: Transthoracicechocardiography was performed. Image quality was adequate. Itwgkegy2O, complete spectral Doppler, and color Doppler. Location: [...] 1.3 cm 0.6 - 1.0 PATIENT NAME: ALBETR MARQUEZ Right ventricle Value 05/11/2022 Ref TAPSE, MM [...] Hg ----- LVOT/AV, VTI 0.43 ----- ratio KAITE, VTI 1.39 cm 2 ----- LVOT/AV, 0.43 [...] Value 05/11/2022 Ref PATIENT NAME: ALBERT MARQUEZ CA peak v 0.99 m/sec ----- CA peak grad 4 mm Hg ----- Tricuspid [...] at 1506 PATIENT NAME: ALBERT MARQUEZ :06:0 0L.[id number] for patient wayoTAFJAMYIFACZVJ3258-64-20U47:06:40 [facility] 2022-06-02 08:57:00 [id number] YvMM0GJFU5AdD5JVnkli1wU3g5T2w KOdUzKDRAqPPVv93Jp98Lck6ObI9420-45-47T25:57:35584 1-0026 [place] [address] patient name: albert marquez admit date: 05/31/22account no: [id number] room no: age: 72 report type: pulmonary [...] iii. dictated by: dorothy baer md wt: pft:gfermin/arianaa/ntsdd: 06/02/2022 08:57:29dt: 06/02/2022 09:52:31conf#: [id number]/did#: [id number] authenticated by dorothy baer md on 06/06/2022 08:17:48 am electronically signed by dorothy baer md on 06/06/22 at 0817 patient name: albert marquez emrz9106-72-84Y32:52:00G.HCV19007817-5817WNVwqhtf ble for patient kwxuBPTOITBVVITARF3805-67-00Z92:18:29 [facility] 2022-05-11 15:06:00 [id number] 3kbEi7mphXwJVAAo9bHaezIoqvz2F 1Ps3RwdBSQJgZL++6zItKR2OEQN6427-58-85G51:06:00 [facility] ([facility])clinical notereport#:[id number] report status: signeddate:05/11/22 time: 1506 patient: albert marquez unit #: [id number]#: [id number] room/bed:: 48 age: 72 sex: m attend: chad valadez erin dt: 05/11/22 author: ian coates interior surface insulation worker * all edits or amendments must be made on the electronic/computer document * clinical notenote:72-year-old -azerbaijani male with past medical history of hypertension, [...] molina md on 05/24/22 at 0953 rpt #:[id number] of reportCLClinical vmdn3712-31-69T78:06:00G.TAJU21811383-7994DJRhdoa able for patient mlweICFJOYRBENEGVS1005-69-65G49:53:35 [facility] 2022-05-11 15:06:00 [id number] YgkgbE26Fg7S9UBuW5gaQqok1Skz8 FwiVr2ytbh4JTfxVTo6nrVnAbwHd6OfO8201-64-51O55:06: 00 [facility] ([facility])Clinical NoteREPORT#:[id number] REPORT STATUS: SignedDATE:05/11/22 TIME: 1506 PATIENT: ALBERT MARQUEZ UNIT #: [id number]#: [id number] ROOM/BED:: 48 AGE: 72 SEX: M ATTEND: Chad Valadez [facility] AUTHOR: Ian Coates NP * ALL edits or amendments must be made on the electronic/computer document * Clinical NoteNote:72-year-old -Djib[place]ian male with past medical history of hypertension, [...] does not wantto wait. at 1522 RPT #:[id number] OF REPORTCLClinical uian7236-85-35P84:06:00G.BGXO58983211-6596ITSwaab able for patient thlmOAIIFIXNGJCDIQ0778-16-64I38:23:17 HCACL"
[2024-01-09 14:14] LABS: Absolute Basophils 0.1 K/uL (0-0.5); Absolute Eosinophils 0.4 K/uL (0-0.5); Absolute Lymphocytes (CBC) 1.5 K/uL (0.7-4.9); Absolute Monocytes 0.8 K/uL (0.1-1.3); Absolute Neutrophil 5.2 K/uL (1.8-8.0); Basophils % 1.1 % (0-1.3); Eosinophils % 5.3 % (0-4.4); Hematocrit 43.8 % (39.6-49.0); Hemoglobin 13.8 g/dL (13.6-17.9); Lymphocytes % 18.9 % (15.3-44.8); MCH 27.1 pg (27.0-35.0); MCHC 31.5 g/dL (32.0-36.0); MCV 85.9 fL (80-100); MPV 8.1 fL (7.6-11.3); Monocytes % 9.5 % (3.3-12.3); Neutrophils % 65.2 % (41.7-73.7); Platelets 289 thou/uL (152-406); Red Cell Distribution Width 18.5 % (12.1-15.2)
--- NOTE | 2024-01-09 14:17 | RAD REPORT ---
EXAM DESCRIPTION: RAD - Chest Single View - 01/09/2024 2:09 pm CLINICAL HISTORY: MALAISE Chest pain. COMPARISON: <Comparisons> FINDINGS: Portable technique limits examination quality. Mild bilateral pulmonary opacities are present which may represent pulmonary edema or pneumonia/ atyp ical infection. The heart is mildly enlarged size. No displaced fractures.
--- NOTE | 2024-01-09 14:26 | RAD REPORT ---
EXAM DESCRIPTION: CT - Head Brain Wo Cont - 01/09/2024 2:15 pm CLINICAL HISTORY: DIZZINESS Headache, drowsiness COMPARISON: <Comparisons> TECHNIQUE: All CT scans are performed using dose optimization technique as appropriate and may inclu de automated exposure control or mA/KV adjustment according to patient size. FINDINGS: No intracranial hemorrhage, hydrocephalus or extra-axial fluid collection.Moderate general ized brain atrophy is present with moderate periventricular and deep white matter chronic microvascul ar ischemic changes.No areas of brain edema or evidence of midline shift. Mild mucosal thickening inferior right maxillary antrum. The paranasal sinuses and mastoids are other stewart clear. The calvarium is intact. IMPRESSION: No acute intracranial abnormality.
[2024-01-09 14:38] LABS: Albumin 2.7 g/dL (3.4-5.0); Albumin/Globulin Ratio 0.5 (1.1-1.8); Anion Gap 9.2 mEq/L (5.0-15.0); Bilirubin Total 0.4 mg/dL (0.2-1.0); Globulin 5.7 g/dL (2.3-3.5); Potassium 5.2 mEq/L (3.5-5.1); Protein, Total 8.4 g/dL (6.4-8.2)
[2024-01-09 14:39] LABS: PT Prothrombin Time 11.9 SECONDS (9.5-12.5); PTT, Activated Partial Thromb 37.9 SECONDS (24.3-36.9); Protime INR 1.08
[2024-01-09] MEDS ORDERED: VANCOMYCIN 1 GM/VIAL ONE (15:20)
[2024-01-09] MEDS ORDERED: NA CHLORIDE 0.9% 250 ML ONE (15:21)
[2024-01-09] MEDS ORDERED: HYDRALAZINE HCL 20 MG/ML VIAL ONE (16:05)
[2024-01-09 16:41] LABS: Specific Gravity 1.011 (1.005-1.030); Sqamous Epithelial None Seen /HPF (None Seen); Urine Bacteria None Seen /HPF (<20); Urine Bilirubin NEGATIVE (Negative); Urine Blood Negative (Negative); Urine Clarity Clear (Clear); Urine Color Colorless (Yellow); Urine Culture Reflex Order NOT NEEDED; Urine Glucose 4+ (Over) (Negative); Urine Ketones NEGATIVE (Negative); Urine Microscopic Reflex YN ORDER UMIC; Urine Nitrite NEGATIVE (Negative); Urine Protein 2+ (Negative); Urine RBC <5 /HPF (None Seen); Urine Urobilinogen Normal (Normal); Urine WBC <5 /HPF (<5); Urine pH 6.5 (5.0-7.0)
[2024-01-09] MEDS ORDERED: DOXYCYCLINE 100 MG CAP PO ONE (17:11)
[2024-01-09] MEDS ORDERED: HYDRALAZINE HCL 25 MG TABLET ONE (17:11)
[2024-01-09 17:54] LABS: Albumin 2.7 g/dL (3.4-5.0); Albumin/Globulin Ratio 0.5 (1.1-1.8); Bilirubin Direct 0.1 mg/dL (0-0.2); Bilirubin Indirect, Calculated 0.3 mg/dL (0.2-0.8); Bilirubin Total 0.4 mg/dL (0.2-1.0); Globulin 5.6 g/dL (2.3-3.5); Protein, Total 8.3 g/dL (6.4-8.2); Troponin High Sensitivity 48.9 pg/mL (<58.9)
--- NOTE | 2024-01-09 18:40 | EDPHYS ---
Physician Documentation [facility] Name: Julianna Kearns Age: 73 yrs Sex: Male : 1950 Arrival Date: 01/09/2024 Time: 13:35 Bed 6 Private MD: ED Physician Salvador Blanchard HPI: 01/08 15:58 This 73 yrs old Black Male presents to ER via EMS with complaints of General Weakness. ci 15:58 Patient is a 73-year-old male with PMH A-fib, CAD s/p PCI, CHF, diabetes, hypertension ci who presents to the ED with generalized weakness. Patient was going to make a sandwich and got very weak and dizzy and sat down. Upon EMS arrival patient was minimally responsive, BP 70/40 received 600 mL IV fluids, BP improved on arrival.. Historical: - Allergies: 14:19 PENICILLINS; ko1 - PMHx: 14:19 Atrial Fib; caridac stent; CHF; Hypercholesterolemia; Diabetes - NIDDM; Hypertension; ko1 - PSHx: 14:19 cardiac stent; ko1 - Immunization history:: Adult Immunizations unknown. - Infectious Disease History:: Denies. - Social history:: Smoking status: Patient denies any tobacco usage or history of. - History obtained from: EMS. ROS: 15:58 Constitutional: Positive for fatigue, ci 15:58 Neuro: Positive for dizziness, Exam: 15:58 Constitutional: This is a well developed, well nourished patient who is awake, alert, ci and in no acute distress. Head/Face: Normocephalic, atraumatic. Eyes: Pupils equal round and reactive to light, extra-ocular motions intact. Lids and lashes normal. Conjunctiva and sclera are non-icteric and not injected. Cornea within normal limits. Periorbital areas with no swelling, redness, or edema. ENT: Nares patent. No nasal discharge, no septal abnormalities noted. Tympanic membranes are normal and external auditory canals are clear. Oropharynx with no redness, swelling, or masses, exudates, or evidence of obstruction, uvula midline. Mucous membranes moist. Neck: Trachea midline, no thyromegaly or masses palpated, and no cervical lymphadenopathy. Supple, full range of motion without nuchal rigidity, or vertebral point tenderness. No Meningismus. Chest/axilla: Normal chest wall appearance and motion. Nontender with no deformity. No lesions are appreciated. Cardiovascular: Regular rate and rhythm with a normal S1 and S2. No gallops, murmurs, or rubs. Normal PMI, no JVD. No pulse deficits. Respiratory: Lungs have equal breath sounds bilaterally, clear to auscultation and percussion. No rales, rhonchi or wheezes noted. No increased work of breathing, no retractions or nasal flaring. Abdomen/GI: Soft, non-tender, with normal bowel sounds. No distension or tympany. No guarding or rebound. No evidence of tenderness throughout. Back: No spinal tenderness. No costovertebral tenderness. Full range of motion. Skin: Warm, dry with normal turgor. Normal color with no rashes, no lesions. Bilateral lower extremity wounds MS/ Extremity: Pulses equal, no cyanosis. Neurovascular intact. Full, normal range of motion. Neuro: Awake and alert, GCS 15, oriented to person, place, time, and situation. Cranial nerves II-XII grossly intact. Motor strength 5/5 in all extremities. Sensory grossly intact. Cerebellar exam normal. Normal gait. Vital Signs: 13:40 BP 184 / 84; Pulse 88; Resp 16; Temp 98; Pulse Ox 99% on R/A; ko1 14:00 BP 192 / 90; Pulse 89; Resp 16; Pulse Ox 96% on R/A; ko1 15:00 BP 172 / 73; Pulse 87; Resp 15; Pulse Ox 98% ; ko1 16:00 BP 142 / 84; Pulse 101; Resp 16; Pulse Ox 97% ; ko1 17:13 BP 147 / 73; Pulse 93; Resp 16; Pulse Ox 98% ; ko1 18:20 BP 150 / 76; Pulse 98; Resp 15; Pulse Ox 97% ; ko1 19:00 BP 143 / 97; Pulse 114; Resp 17 S; Pulse Ox 96% on R/A; jw7 20:00 BP 142 / 93; Pulse 114; Resp 16 S; Pulse Ox 96% on R/A; jw7 20:28 Weight 82.1 kg; Height 6 ft. 0 in. ; vc1 21:00 BP 162 / 81; Pulse 108; Resp 16 S; Pulse Ox 95% on R/A; jw7 20:28 Body Mass Index 24.55 (82.10 kg, 182.88 cm) vc1 MDM: 13:40 Patient medically screened. ci 18:40 Differential Diagnosis Syncope, sepsis, ACS, CHF exacerbation, pneumonia, UTI. Data ci reviewed: vital signs, nurses notes, old medical records, Patient was seen in the ED on 11/20/2023. proBNP at that time was 6861, creatinine 4.04. 18:42 Historians other than the Patient: Spouse/Significant Other: Patient is noncompliant ci with his 80 mg of Lasix and his hydralazine. Care significantly affected by the following chronic conditions: Diabetes, Hypertension, Congestive Heart Failure. 01/08 13:43 Order name: CBC with Diff; Complete Time: 14:42 ci 01/08 13:43 Order name: CMP; Complete Time: 14:42 ci 01/08 13:43 Order name: Lactate w/ 2H reflex if indic.; Complete Time: 14:42 ci 01/08 13:43 Order name: Protime (+inr); Complete Time: 14:42 ci 01/08 13:43 Order name: Ptt, Activated; Complete Time: 14:42 ci 01/08 13:43 Order name: Urinalysis w/ reflexes; Complete Time: 16:48 ci 01/08 13:43 Order name: Blood Culture Adult (2) ci 01/08 17:17 Order name: LFT's; Complete Time: 17:59 ci 01/08 17:17 Order name: NT PRO-BNP; Complete Time: 17:59 ci 01/08 17:59 Interpretation: Abnormal: NT PRO-BNP 2408. ci 01/08 17:17 Order name: Troponin HS; Complete Time: 17:59 ci 01/08 17:20 Order name: Add On-Lab ci 01/08 17:53 Order name: Lactate Sepsis 2 HR Follow-up; Complete Time: 17:59 EDMS 01/08 19:27 Order name: CBC with Automated Diff EDMS 01/08 19:27 Order name: CBC with Automated Diff EDMS 01/08 19:27 Order name: Comprehensive Metabolic Panel EDMS 01/08 19:27 Order name: Comprehensive Metabolic Panel EDMS 01/08 19:37 Order name: Magnesium EDMS 01/08 19:37 Order name: Magnesium EDMS 01/08 19:37 Order name: Magnesium EDMS 01/08 19:37 Order name: Magnesium EDMS 01/08 13:43 Order name: Chest Single View XRAY; Complete Time: 14:42 ci 01/08 13:43 Order name: CT Head Brain wo Cont; Complete Time: 14:42 ci 01/08 19:27 Order name: CONS Physician Consult EDMS 01/08 19:27 Order name: CONS Physician Consult EDMS 01/08 13:43 Order name: Accucheck; Complete Time: 14:07 ci 01/08 13:43 Order name: Cardiac monitoring; Complete Time: 13:57 ci 01/08 13:43 Order name: EKG - Nurse/Tech; Complete Time: 13:57 ci 01/08 13:43 Order name: IV Saline Lock - Large Bore; Complete Time: 14:07 ci 01/08 13:43 Order name: Labs collected and sent; Complete Time: 14:07 ci 01/08 13:43 Order name: O2 Per Protocol; Complete Time: 13:57 ci 01/08 13:43 Order name: O2 Sat Monitoring; Complete Time: 13:57 ci 01/08 13:43 Order name: Vital Signs; Complete Time: 13:57 ci Administered Medications: 15:03 Drug: vancoMYCIN IVPB 1 grams IVPB once over 2 hrs Route: IVPB; Infused Over: 2 hrs; ko1 Site: right antecubital; 17:05 Follow up: Response: No adverse reaction; IV Status: Completed infusion; IV Intake: ko1 250ml 16:13 Drug: hydrALAZINE IVP 10 mg IVP once Route: IVP; Site: right antecubital; kc6 16:45 Follow up: Response: No adverse reaction; Blood pressure is lowered ko1 17:13 Drug: Doxycycline PO 100 mg PO once Route: PO; ko1 01/09 01:42 Follow up: Response: No adverse reaction jw7 01/08 17:13 Drug: HydrALAZINE PO 25 mg PO once Route: PO; ko1 01/09 01:42 Follow up: Response: No adverse reaction; Marked relief of symptoms; Blood pressure is jw7 lowered Disposition Summary: 01/09/24 18:40 Hospitalization Ordered Notes: Hospitalization Status: Inpatient Admission ci Provider: Manasa Albarado Location: Telemetry/MedSurg (Inpatient) ci Condition: Stable ci Problem: an acute exacerbation ci Symptoms: are unchanged ci Bed/Room Type: Standard ci Room Assignment: 423(01/09/24 19:43) ty Diagnosis - Acute systolic (congestive) heart failure ci - Muscle weakness (generalized) ci - Syncope Near ci Forms: - Medication Reconciliation Form ci - SBAR form ci - Leadership Thank You Letter ci Signatures: Dispatcher [employer] EDAngela Stallings RN RN kc6 Olivia Catherine RN RN ko1 Salvador Blanchard ci Audi Davalos Jodi RN jw7 Corrections: (The following items were deleted from the chart) 01/08 13:44 13:44 Head Brain Wo Cont+CT.RAD.BRZ ordered. EDMS EDMS 17:18 17:18 HEPATIC FUNCTION+C.LAB.BRZ ordered. EDMS EDMS 17:18 17:18 PROBNP+C.LAB.BRZ ordered. EDMS EDMS 17:18 17:18 Troponin High Sensitivity+C.LAB.BRZ ordered. EDMS EDMS 18:43 18:40 Data reviewed: vital signs, nurses notes, old medical records, ci ci 19:43 18:40 ci ty
--- NOTE | 2024-01-09 18:40 | ER ---
Nurse's Notes [facility] Name: Julianna Kearns Age: 73 yrs Sex: Male : 1950 Arrival Date: 01/09/2024 Time: 13:35 Bed 6 Private MD: Diagnosis: Acute systolic (congestive) heart failure;Muscle weakness (generalized);Syncope Near Presentation: 01/08 13:40 Chief complaint: EMS states: patients called due to patient feeling weak. EMS ko1 stated SBP 70's. Gave 650 NS, now bp is 170's/70's. Coronavirus screen: At this time, the client does not indicate any symptoms associated with coronavirus-19. Ebola Screen: No symptoms or risks identified at this time. Initial Sepsis Screen: Does the patient meet any 2 criteria? No. Patient's initial sepsis screen is negative. Does the patient have a suspected source of infection? No. Patient's initial sepsis screen is negative. Risk Assessment: Do you want to hurt yourself or someone else? Patient reports no desire to harm self or others. Onset of symptoms was January 09, 2024. Care prior to arrival: IV initiated. 20 GA, in the right antecubital area. 13:40 Method Of Arrival: EMS: [facility] ko1 13:40 Acuity: VERONICA 3 ko1 Triage Assessment: 14:19 General: Appears in no apparent distress. Behavior is calm, cooperative, appropriate ko1 for age. Pain: Complains of pain in bilateral feet. Historical: - Allergies: 14:19 PENICILLINS; ko1 - PMHx: 14:19 Atrial Fib; caridac stent; CHF; Hypercholesterolemia; Diabetes - NIDDM; Hypertension; ko1 - PSHx: 14:19 cardiac stent; ko1 - Immunization history:: Adult Immunizations unknown. - Infectious Disease History:: Denies. - Social history:: Smoking status: Patient denies any tobacco usage or history of. - History obtained from: EMS. Screenin:00 [facility] ED Fall Risk Assessment (Adult) History of falling in the last 3 months, ko1 including since admission No falls in past 3 months (0 pts). Abuse screen: Denies threats or abuse. Denies injuries from another. Nutritional screening: No deficits noted. Tuberculosis screening: No symptoms or risk factors identified. Assessment: 14:00 General: Appears in no apparent distress. ill, Behavior is calm, cooperative, ko1 appropriate for age. Pain: Complains of pain in right foot and left foot. Neuro: No deficits noted. Cardiovascular: No deficits noted. Respiratory: No deficits noted. GI: No deficits noted. : No deficits noted. EENT: No deficits noted. Derm: No deficits noted. Musculoskeletal: No deficits noted. 19:00 General: Appears in no apparent distress. uncomfortable, Behavior is calm, cooperative. jw7 19:00 Pain: Denies pain. Neuro: Level of Consciousness is awake, alert, obeys commands, jw7 Oriented to person, place, time, situation. Cardiovascular: Capillary refill < 3 seconds Clubbing of nail beds is absent JVD is absent Patient's skin is warm and dry. Respiratory: Airway is patent Trachea midline Respiratory effort is even, unlabored, Respiratory pattern is regular, symmetrical, Breath sounds are clear bilaterally. GI: Abdomen is round non-distended, Bowel sounds present X 4 quads. Abd is soft and non tender X 4 quads. : No deficits noted. No signs and/or symptoms were reported regarding the genitourinary system. EENT: No deficits noted. No signs and/or symptoms were reported regarding the EENT system. Derm: Skin Skin is dry, Skin is normal, Skin temperature is warm. Musculoskeletal: Circulation, motion, and sensation intact. Range of motion: limited in left ankle and right ankle. 20:00 Reassessment: Patient appears in no apparent distress at this time. No changes from jw7 previously documented assessment. Patient and/or family updated on plan of care and expected duration. Pain level reassessed. Patient is alert, oriented x 3, equal unlabored respirations, skin warm/dry/pink. 21:00 Reassessment: Patient appears in no apparent distress at this time. No changes from jw7 previously documented assessment. Patient and/or family updated on plan of care and expected duration. Pain level reassessed. Patient is alert, oriented x 3, equal unlabored respirations, skin warm/dry/pink. Vital Signs: 13:40 BP 184 / 84; Pulse 88; Resp 16; Temp 98; Pulse Ox 99% on R/A; ko1 14:00 BP 192 / 90; Pulse 89; Resp 16; Pulse Ox 96% on R/A; ko1 15:00 BP 172 / 73; Pulse 87; Resp 15; Pulse Ox 98% ; ko1 16:00 BP 142 / 84; Pulse 101; Resp 16; Pulse Ox 97% ; ko1 17:13 BP 147 / 73; Pulse 93; Resp 16; Pulse Ox 98% ; ko1 18:20 BP 150 / 76; Pulse 98; Resp 15; Pulse Ox 97% ; ko1 19:00 BP 143 / 97; Pulse 114; Resp 17 S; Pulse Ox 96% on R/A; jw7 20:00 BP 142 / 93; Pulse 114; Resp 16 S; Pulse Ox 96% on R/A; jw7 20:28 Weight 82.1 kg; Height 6 ft. 0 in. ; vc1 21:00 BP 162 / 81; Pulse 108; Resp 16 S; Pulse Ox 95% on R/A; jw7 20:28 Body Mass Index 24.55 (82.10 kg, 182.88 cm) vc1 ED Course: 13:36 Patient arrived in ED. ko1 13:36 Salvador Blanchard is Attending Physician. ec2 13:46 Olivia Catherine, RN is Primary Nurse. ko1 14:00 Initial lab(s) drawn, by me, sent to lab. Maintain EMS IV. Dressing intact. Good blood ko1 return noted. Site clean \T\ dry. Gauge \T\ site: 20 right AC. 14:00 Patient has correct armband on for positive identification. Allergy band placed. Bed in ko1 low position. Call light in reach. Side rails up X2. Client placed on continuous cardiac and pulse oximetry monitoring. NIBP monitoring applied. software validation engineer on. Door closed. Noise minimized. Lights dimmed. Warm blanket given. Pillow given. 14:07 CBC with Diff Sent. ko1 14:07 CMP Sent. ko1 14:07 Lactate w/ 2H reflex if indic. Sent. ko1 14:07 Protime (+inr) Sent. ko1 14:07 Ptt, Activated Sent. ko1 14:11 Chest Single View XRAY In Process Unspecified. EDMS 14:15 CT Head Brain wo Cont In Process Unspecified. EDMS 14:19 Triage completed. ko1 14:19 Arm band placed on right wrist. Patient placed in an exam room, on a stretcher, on ko1 systems software designer, on pulse oximetry, Patient notified of wait time. 14:46 Blood Culture Adult (2) Sent. ko1 17:27 Add On-Lab Sent. ko1 18:20 Diet tray given. PO fluids given. Assisted with urinal. ko1 18:37 Manasa Albarado MD is Hospitalizing Provider. ci 19:00 Report received from ERICA Baker. jw7 19:00 Provided Education on: Use of Call Light. jw7 19:45 Door closed. Noise minimized. Lights dimmed. Warm blanket given. jw7 19:45 Diet: Patient given snack. Tolerated well. jw7 19:46 Primary Nurse role handed off by Olivia Catherine RN as6 20:45 Wound care: to cellulitis located on left foot and right foot was cleaned with soap and jw7 water, irrigated with normal saline, dressed with Kerlix, ABD pads, TESSA Bandage, Patient tolerated well. 20:45 Cleaned of incontinence. Linen changed. jw7 20:45 One-on-one care X 15 minutes. jw7 20:50 Report faxed to 4th floor. Deena confirmed that fax was received at [phone]. cm10 21:30 No provider procedures requiring assistance completed. jw7 21:30 Patient admitted, IV remains in place. jw7 Administered Medications: 15:03 Drug: vancoMYCIN IVPB 1 grams IVPB once over 2 hrs Route: IVPB; Infused Over: 2 hrs; ko1 Site: right antecubital; 17:05 Follow up: Response: No adverse reaction; IV Status: Completed infusion; IV Intake: ko1 250ml 16:13 Drug: hydrALAZINE IVP 10 mg IVP once Route: IVP; Site: right antecubital; kc6 16:45 Follow up: Response: No adverse reaction; Blood pressure is lowered ko1 17:13 Drug: Doxycycline PO 100 mg PO once Route: PO; ko1 01/09 01:42 Follow up: Response: No adverse reaction jw7 01/08 17:13 Drug: HydrALAZINE PO 25 mg PO once Route: PO; ko1 01/09 01:42 Follow up: Response: No adverse reaction; Marked relief of symptoms; Blood pressure is jw7 lowered Medication: 01/08 14:00 VIS not applicable for this client. ko1 Intake: 17:05 IV: 250ml; Total: 250ml. ko1 Outcome: 18:40 Decision to Hospitalize by Provider. ci 21:20 Admitted to Tele accompanied by tech, via stretcher, raquel 21:20 Condition: stable 21:20 Instructed on the need for admit, Demonstrated understanding of instructions, 21:31 Patient left the ED. vc1 Signatures: Dispatcher [employer] Danny Reyna RN RN as6 Shaylee New RN RN vc1 Sue Merino RN RN jw7 Angela Garcia RN RN [id number] Olivai Catherine RN RN ko1 Charmaine Olmedo RN RN cm10 Kelvin Kumar MD MD ec2 Salvador Blanchard ci
[2024-01-09] MEDS ORDERED: MORPHINE 2 MG/ML SYR IV PRN (19:21)
[2024-01-09] MEDS ORDERED: ACETAMINOPHEN 500 MG TAB PO PRN (19:21)
[2024-01-09] MEDS ORDERED: ONDANSETRON 4 MG/2 ML VIAL IV PRN (19:21)
[2024-01-09] MEDS ORDERED: ALBUTEROL 2.5 MG/3 ML NEB SOL NEB PRN (19:21)
--- NOTE | 2024-01-09 19:31 | P.HP ---
Certification for Inpatient With expected LOS: >2 Midnights Patient will require the following post-hospital care: Home Health Services Practitioner: I am a practitioner with admitting privileges, knowledge of patient current condition, hospital course, and medical plan of care. Services: Services provided to patient in accordance with Admission requirements found in Title 42 Section 412.3 of the Code of Federal Regulations Patient History Date of Service: 01/09/24 Reason for admission: Near syncope History of Present Illness: 73-year-old male with past medical history of HTN/DM/CAD status post PCI/systolic CHF/A-fib on chronic anticoagulation/chronic lymphedema with multiple advised bilateral lower extremity woundsfollow-up with wound clinic, developed sudden onset feeling of dizziness while ambulating today to the kitchen to get something to eat. Patient states he felt sudden weakness and has Safe to the floor. He is not sure if he actually passed out. On arrival of EMS patient was noted with low blood pressure with systolic in the 70s over 40s, he received 1 L bolus with improvement in his blood pressure. On arrival in the ED he was rather hypertensive with blood pressure 9180s systolic requiring dose of IV hydralazine as well as IV Lasix. His blood pressures in the 140s now. Patient denies any nausea vomiting or diarrhea. He denies any recent medication changes. He denies any fever or chills. Workup in the ED shows normal WBC and hemoglobin, BMP shows creatinine of 2.3 about baseline, potassium of 5.0. Lactic acid was mildly elevated at 2.3. Head CT was negative. proBNP was elevated at greater than 2100. EKG shows normal normal sinus rhythm with no ST segment changes Chest x-ray shows pulmonary edema versus pneumonia. Patient has been admitted for presumed pneumonia/lower extremity cellulitis with near syncope. Allergies Penicillins Adverse Reaction (Verified 01/24/23 22:00) Hives Home Medications: Apixaban [Eliquis *] 2.5 mg PO BID #60 tab 01/29/23 Aspirin Chewable [Aspirin Chewable*] 81 mg PO DAILY tab.chew 01/29/23 Atorvastatin Calcium [Lipitor] 40 mg PO BEDTIME #30 tab 01/29/23 Furosemide [Lasix*] 80 mg PO BIDL #60 tab 01/29/23 Hydralazine HCl 50 mg PO TID #90 tab 01/29/23 Spironolactone [Aldactone*] 25 mg PO BID #60 tab 01/29/23 carvediloL [Coreg*] 12.5 mg PO BID #60 tab 01/29/23 Ensure High Protein 273 ml PO TID #90 can 03/18/23 Isosorbide Dinit [Isordil*] 20 mg PO TID #90 tab 03/18/23 Benzonatate [Tessalon Perle*] 100 mg PO TID 04/22/23 Mupirocin Oint [Bactroban 2% Ointment*] 1 appl TOP DAILY #1 tube 04/25/23 - Past Medical/Surgical History Diabetic: Yes -: hypertension -: hyperlipidemia -: Atrial fibrillation -: IDDM -: Coronary artery disease -: Aortic stenosis -: CHF -: Cardiac Catheterization with stent placement -: Right leg surgery Psychosocial/ Personal History: Patient is . - Family History Brother -: Heart disease, Hypertension - Social History Smoking Status: Never smoker Alcohol use: No CD- Drugs: No Caffeine use: Yes Review of Systems 10-point ROS is otherwise unremarkable Physical Examination - Physical Exam General: Alert, In no apparent distress, Oriented x3, Cooperative HEENT: Atraumatic, Normocephalic Neck: Supple, 2+ carotid pulse no bruit, JVD not distended Respiratory: Clear to auscultation bilaterally, Normal air movement Cardiovascular: Regular rate/rhythm, Normal S1 S2, Other (AICD insitu), Edema Gastrointestinal: Normal bowel sounds, Soft and benign, Non-distended, No rebound, No guarding Musculoskeletal: Swelling (lymphedema b/l with dsg over multiple superficial ulcers, no erythema ) Integumentary: Diabetic ulcer, Pressure ulcer Neurological: Normal speech, Normal strength at 5/5 x4 extr, Sensation intact, Cranial nerves 3-12 intact - Studies Laboratory Data (last 24 hrs) 01/09/24 01/09/24 01/09/24 14:05 14:05 14:05 WBC Hgb Hct Plt Count PT 11.9 INR 1.08 APTT 37.9 H Sodium 135 L Potassium 5.2 H BUN 36 H Creatinine 2.37 H Glucose 186 H Total Bilirubin 0.4 0.4 AST 21 17 ALT 15 L 16 Alkaline Phosphatase 76 75 01/09/24 14:05 WBC 8.00 Hgb 13.8 Hct 43.8 Plt Count 289 PT INR APTT Sodium Potassium BUN Creatinine Glucose Total Bilirubin AST ALT Alkaline Phosphatase Assessment and Plan - Plan Impression Near syncopemay be due to infectious etiology, rule out cardiac arrhythmia History of A-fib Hypertension DM Acute pulmonary edema versus bilateral pneumonia Extremity ulcers with possible superimposed cellulitis Chronic anticoagulation History of CAD Plan Will admit to inpatient Place in child monitor for arrhythmia Given elevated proBNP, start low-dose Lasix Avoid overdiuresis Creatinine elevated but stable, follow with nephrology Started empirical antibiotics with cefepime for both presumed pneumonia as well as lower extremity cellulitis Insulin sliding scale with Accu-Cheks Continue Eliquis Will consult wound care/ID following extremity wounds Advance directive full code Dispositionpossible hospital stay for 48 to 72 hours - Advance Directives Does patient have a Living Will: No Does patient have a Durable POA for Healthcare: No
[2024-01-09] MEDS ORDERED: HYDRALAZINE HCL 20 MG/ML VIAL IV PRN (19:34)
[2024-01-09] MEDS: INSULIN REGULAR (HUMAN) 100 UNIT/ML SQ SCH (21:00)
[2024-01-09] MEDS: ENSURE HIGH PROTEIN 237 ML CAN PO SCH (21:00)
[2024-01-09] MEDS: FUROSEMIDE 40 MG/4 ML VIAL ONE (22:36)
[2024-01-09] MEDS: ATORVASTATIN 40 MG TAB PO SCH (23:04)
[2024-01-09] MEDS: SPIRONOLACTONE 25 MG TABLET PO SCH (23:04)
[2024-01-09] MEDS: APIXABAN 2.5 MG TABLET PO SCH (23:05)
[2024-01-09] MEDS: HYDRALAZINE HCL 25 MG TABLET PO SCH (23:05)
[2024-01-09] MEDS: carvediloL 12.5 MG TAB PO SCH (23:05)
[2024-01-09] MEDS: ISOSORBIDE DINIT 20 MG TAB PO SCH (23:05)
[2024-01-09] MEDS: FAMOTIDINE 20 MG TAB PO ONE (23:05)
[2024-01-09] MEDS: FUROSEMIDE 40 MG/4 ML VIAL IV ONE (23:06)
[2024-01-09] MEDS: CEFEPIME 1 GM in NA CHLORIDE 0.9% 100 ML IV SCH (23:06)
[2024-01-10 00:50] VITALS: BMI 24.5
[2024-01-10 04:56] LABS: Absolute Basophils 0.1 K/uL (0-0.5); Absolute Eosinophils 0.2 K/uL (0-0.5); Absolute Monocytes 1.1 K/uL (0.1-1.3); Absolute Neutrophil 11.1 K/uL (1.8-8.0); Basophils % 0.6 % (0-1.3); Eosinophils % 1.3 % (0-4.4); Hematocrit 40.4 % (39.6-49.0); Hemoglobin 12.9 g/dL (13.6-17.9); Lymphocytes % 7.6 % (15.3-44.8); MCH 26.9 pg (27.0-35.0); MCHC 31.9 g/dL (32.0-36.0); MCV 84.4 fL (80-100); MPV 8.4 fL (7.6-11.3); Monocytes % 7.9 % (3.3-12.3); Neutrophils % 82.6 % (41.7-73.7); Nucleated Red Blood Cells % 0.1 % (0-0); Platelets 314 thou/uL (152-406); RBC Red Blood Cell Count 4.79 M/uL (4.33-5.43); Red Cell Distribution Width 18.3 % (12.1-15.2)
[2024-01-10 05:11] LABS: Albumin 2.5 g/dL (3.4-5.0); Albumin/Globulin Ratio 0.5 (1.1-1.8); Bilirubin Total 0.6 mg/dL (0.2-1.0); Protein, Total 7.5 g/dL (6.4-8.2)
[2024-01-10] MEDS: FUROSEMIDE 40 MG TABLET PO SCH (09:01)
[2024-01-10] MEDS: ASPIRIN 81 MG CHEWABLE TABLET PO SCH (09:02)
--- NOTE | 2024-01-10 09:24 | P.CNS ---
Date of Consult: 01/10/24 Reason for Consult: Lower extremity cellulitis Chief Complaint: Near syncope History of Present Illness: Patient is a 73 yo male with a PMH as listed below who presented to the ED following a syncopal episode. CT head negative for acute findings. Lactic acid 2.3, WBC elevated. Blood cultures obtained, started on empiric antibiotics. Infectious disease consulted for bilateral lower extremity cellulitis. Allergies Penicillins Adverse Reaction (Verified 01/24/23 22:00) Hives Home medications list reviewed: Yes Home Medications: Apixaban [Eliquis *] 2.5 mg PO BID #60 tab 01/29/23 Aspirin Chewable [Aspirin Chewable*] 81 mg PO DAILY tab.chew 01/29/23 Atorvastatin Calcium [Lipitor] 40 mg PO BEDTIME #30 tab 01/29/23 Furosemide [Lasix*] 80 mg PO BIDL #60 tab 01/29/23 Hydralazine HCl 50 mg PO TID #90 tab 01/29/23 Spironolactone [Aldactone*] 25 mg PO BID #60 tab 01/29/23 carvediloL [Coreg*] 12.5 mg PO BID #60 tab 01/29/23 Ensure High Protein 273 ml PO TID #90 can 03/18/23 Isosorbide Dinit [Isordil*] 20 mg PO TID #90 tab 03/18/23 Benzonatate [Tessalon Perle*] 100 mg PO TID 04/22/23 Mupirocin Oint [Bactroban 2% Ointment*] 1 appl TOP DAILY #1 tube 04/25/23 - Past Medical/Surgical History Diabetic: Yes -: hypertension -: hyperlipidemia -: Atrial fibrillation -: IDDM -: Coronary artery disease -: Aortic stenosis -: CHF -: Cardiac Catheterization with stent placement -: Right leg surgery Psychosocial/ Personal History: Patient is . - Family History Brother Medical History: Heart disease, Hypertension - Social History Smoking Status: Unknown if ever smoked Alcohol use: No CD- Drugs: No Caffeine use: Yes Place of Residence: Home Review of Systems 10-point ROS is otherwise unremarkable Integumentary: As per HPI Physical Examination Temp Pulse Resp BP Pulse Ox 98.2 F 81 16 140/66 91 01/10/24 08:00 01/10/24 09:01 01/10/24 08:00 01/10/24 09:01 01/10/24 08:00 General: Alert, In no apparent distress, Oriented x3 HEENT: Atraumatic, Normocephalic Respiratory: Clear to auscultation bilaterally, Normal air movement Cardiovascular: Regular rate/rhythm Gastrointestinal: Normal bowel sounds, Soft and benign, Non-distended Integumentary: Venous stasis ulcer (BLE) Neurological: Normal speech Laboratory Data -Reviewed Microbiology data -Reviewed Imagings Data: - Reviewed Conclusions/Impression: Problem list Cellulitis, bilateral lower extremities venous stasis ulcers CKD CAD s/p PCI Systolic CHF Atrial Fibrillation Cellulitis, bilateral lower extremities venous stasis ulcers -WBC 13.4 -lactic acid 2.3 on admission, now 1.8 -Blood cultures 01/08: Pending -Currently on cefepime. Received dose of vancomycin in ED - patient was recently prescribed ciprofloxacin PO and topical mupirocin ointment on 11/09 for lower extremity cellulitis. Recommendations -Cellulitis: continue cefepime and vancomycin for now. -Follow-up with blood culture results -Continue wound care per wound care team. Patient was seeing Dr. Granados as outpatient in wound care clinic. -Monitor CBC, BMP Vanco troughs -Nutritional supplementation Case discussed with Daniel Abreu
[2024-01-10] MEDS ORDERED: PNEUMOCOCCAL VACCINE 0.5 ML IMVAC ONE (12:00)
--- NOTE | 2024-01-10 12:36 | EKG ---
Test Date: 2024-01-09 Test Time: 13:55:33 Senior [employer] So[employer] Developer: CADY MEASUREMENT RESULTS: Intervals: Rate: 84 [place]: 160 QRSD: 84 QT: 408 QTc: 482 [place]: P: 73 NJ: 160 QRS: -25 T: 31 INTERPRETIVE STATEMENTS: Normal sinus rhythm Possible Left atrial enlargement Prolonged QT Abnormal ECG Compared to ECG 11/20/2023 09:46:19 Prolonged QT interval now present Left anterior fascicular block no longer present ST (T wave) deviation no longer present Electronically Signed On 01-10-24 12:33:34 CDT by Chad Alvarez
--- NOTE | 2024-01-10 14:00 | P.PN ---
Date of Service: 01/10/24 Subjective: Reports episode of syncope before coming to hospital No acute events overnight Denies any complaints currently ROS: 10 point ROS as noted above, otherwise negative Physical exam GEN: Alert, oriented, NAD HEENT: Normal conjunctiva, sclera anicteric CV: Regular rate and rhythm, no edema Pulm: Nonlabored respirations on room air ABD: Soft, nontender, nondistended MSK: No joint tenderness Integumentary: No rashes, chronic appearing wounds to lower extremities with questionable surrounding cellulitis Neuro: Normal speech, normal affect Vitals reviewed Problem List Syncope History of atrial fibrillation on chronic anticoagulation CKD 3 Hypertension Diabetes mellitus type 2insulin-dependent Chronic diastolic congestive heart failure Chronic ulceration of bilateral lower extremities History of CAD Plan Syncope Monitor on telemetry, trend troponins Echocardiogram 01/19/2023 shows moderate to severe aortic valve stenosis Repeat echocardiogram, cardiology consult ordered Denies chest pain, palpitations. Had not recently changed positions prior to syncope Chronic diastolic congestive heart failure Does not appear grossly overloaded Chest x-ray with pulmonary edema versus pneumonia Given additional dose of IV Lasix in ED, continue oral Lasix Continue empiric antibiotics for possible pneumonia versus cellulitis with vancomycin/cefepime per ID History of atrial fibrillation on chronic anticoagulation Home medications continued including Eliquis CKD 3 Nephrology consulted giving underlying CKD Hypertension Continue home medications Diabetes mellitus type 2insulin-dependent ACHS Accu-Chek, sliding scale insulin Chronic ulceration of bilateral lower extremities ID consulted Continue antibiotics Wound to the consult Follows outpatient wound healing center with Dr. Granados History of CAD Home medications continued VTE: Continue Eliquis Code: Full code Dispo: 1 to 2 days Time Spent Managing Pts Care (In Minutes): 35
--- NOTE | 2024-01-10 21:06 | CON ---
Date of Consultation: 01/10/2024 Reason For Consultation: Syncope. History Of Present Illness: A 73-year-old male, history of diabetes, hypertension, coronary artery d isease, CHF, aortic valve stenosis, atrial fibrillation, lymphedema, presented with sudden feeling of dizziness and collapsed. checked his blood pressure, was in the 70s systolic. Blood pressure improved after pulses and he is asymptomatic. Denies having any chest pain or shortness of breath. Past Medical History: As outlined above in HPI. Medications: Refer reconciliation sheet for detailed list. Allergies: PENICILLIN. Family History: No premature coronary artery disease or cancer. Social History: Does not smoke or drink. Does not use any drugs. Review of Systems: All systems reviewed and they were negative except as mentioned in the HPI. Physical Examination: Vital Signs: Reviewed. Head and Neck: Pupils are equal, reactive to light. Intact eye movements. No JVD. No cervical lym phadenopathy. Neck is supple. Thyroid is not enlarged. Lungs: Clear to auscultation bilaterally. No rhonchi, wheezing, or crackles. No accessory muscle u se. Heart: Regular with aortic ejection systolic murmur. Abdomen: Soft, nontender. Bowel sounds positive. No organomegaly. No masses or hernia. No rigidi ty or rebound. Extremities: No clubbing, cyanosis. Positive edema. Neurologic: Alert, awake, oriented x3. No acute focal deficits appreciated. Lymph Nodes: No cervical or axillary lymphadenopathy. Investigations: Chest x-ray showed infiltrates bilaterally, could be pneumonia. White blood cell co unt is 13.4 and hemoglobin is 12.9. Troponin 70 and the creatinine is 2.29. His creatinine normally is around 1.8. Assessment/recommendation: 1.Syncope due to hypotension. I believe it is overmedication and polypharmacy. I would definitely discontinue the isosorbide dinitrate and also monitor. If his blood pressure continues to be low, th en I will discontinue the hydralazine. 2.Bilateral infiltrates of lungs, possible pneumonia, on antibiotics. I do not see signs of congest jose r heart failure clinically. 3.Dyslipidemia. Denies statin. 4.Atrial fibrillation. If condition is controlled, continue carvedilol and Eliquis. SR/MODL Voice ID: [id number] Report ID: [id number]
[2024-01-10] MEDS: FAMOTIDINE 20 MG TAB PO SCH (21:14)
[2024-01-11 07:28] LABS: Hematocrit 44.4 % (39.6-49.0); MCHC 31.5 g/dL (32.0-36.0); MCV 85.7 fL (80-100); MPV 8.6 fL (7.6-11.3); Platelets 339 thou/uL (152-406); RBC Red Blood Cell Count 5.18 M/uL (4.33-5.43); Red Cell Distribution Width 18.9 % (12.1-15.2)
[2024-01-11 07:40] LABS: Anion Gap 9.8 mEq/L (5.0-15.0); Magnesium 2.4 mg/dL (1.6-2.4); Potassium 4.8 mEq/L (3.5-5.1)
--- NOTE | 2024-01-11 08:22 | CON ---
Date of Consultation: 01/10/2024 Chief Complaint: Abnormal renal function test. History Of Present Illness: The patient presented to the hospital after he sustained syncope. He is a 73-year-old man with history of diabetes mellitus, diabetic kidney disease, chronic kidney stage 3 , baseline creatinine level 2. The patient follows up with his finished carpet inspector at [facility] in [place]. Recently, he was seen by his finished carpet inspector and had blood work done to assess kidney function and was told the kidney function was stable. The patient has history of congestive heart failure, aortic va lve stenosis, coronary artery disease, atrial fibrillation, history of lymphedema. [facility] he was not feeling well and was complaining of dizziness and collapse. checke d his blood pressure and systolic blood pressure was in the 70s. Blood pressure improved and he curr ently is asymptomatic. He denies chest pain and he denies palpitation, shortness of breath. Past Medical History: Diabetes mellitus, hypertension, coronary artery disease, congestive heart mirna lure, aortic valve stenosis, atrial fibrillation, Past Surgical History: Cardiac catheterization with . Social History: Denies tobacco, alcohol, illicit drugs. Physical Examination: General: The patient is awake, alert, follows commands. Eyes: Anicteric sclerae. EOMI. Ears, Nose, Mouth, and Throat: Oral mucosa moist. No pallor. Neck: Supple. No bruits. Lungs: Diminished breath sounds at bases. Heart: S1, S2. Abdomen: Soft. Extremities: . Vital Signs: Blood pressure , respiratory rate 16. Impression And Plan: 1.Chronic kidney disease dropping. The patient currently is clinically stable. He is un dergoing workup for sepsis. The patient received 1 dose of vancomycin in the emergency ro om, prior the culture was taken. The patient was seen by Infectious Disease and . Recomme nd to check renal ultrasound in this particular patient. The patient has history of BPH, although he denies lower urinary tract . 2.Hypertension. Continue blood pressure medication and monitor blood pressure log. the patient to avoid high potassium diet. The patient is taking furosemide for volume control and conges tive heart failure. hydralazine and Lasix. Monitor electrolytes. EB/MODL Voice ID: [id number] Report ID: [id number]
--- NOTE | 2024-01-11 08:48 | P.PN ---
Infectious Disease Progress Note Chief Complaint: Near syncope Subjective: In no apparent distress. Denies any new or worsening complaints. No cough, shortness of breath, congestion, chest pain. Physical Examination Temp Pulse Resp BP Pulse Ox 97.4 F 98 H 20 170/80 H 92 01/11/24 04:00 01/11/24 04:00 01/11/24 04:00 01/11/24 04:00 01/11/24 04:00 General: Alert, In no apparent distress, Oriented x3 HEENT: Atraumatic, Normocephalic Respiratory: Clear to auscultation bilaterally, Normal air movement. Unlabored respirations on room air. Cardiovascular: Regular rate/rhythm. Gastrointestinal: Normal bowel sounds, Soft and benign, Non-distended Integumentary: Venous stasis ulcer BLE, chronic. Neurological: Normal speech Laboratory Data -Reviewed Microbiology data -Reviewed Imagings Data: - Reviewed Medications List: Reviewed Assessment and Plan Problem list Syncope venous stasis ulcers CKD CAD s/p PCI Systolic CHF Atrial Fibrillation BLE Venous Stasis Ulcers, chronic - patient was recently prescribed ciprofloxacin PO and topical mupirocin ointment on 11/09 for lower extremity cellulitis. -Blood cultures 01/08: no growth to date -Currently on cefepime. Received dose of vancomycin in ED - afebrile Recommendations -venous stasis ulcers: apply silvadene topical BID, wrap with kerlix then apply TESSA wrap. - pneumonia/possible cellulitis: Consider switch to Cefpodoxime PO and Doxycycline PO BID. complete a total of 7 days antibiotic therapy. - Patient was seeing Dr. Granados as outpatient in wound care clinic. Follow up in wound care clinic as outpatient. -Monitor CBC, BMP -Nutritional supplementation Case discussed with Daniel Abreu
[2024-01-11] MEDS: HYDRALAZINE HCL 25 MG TABLET PO SCH (09:03)
[2024-01-11] MEDS: FUROSEMIDE 40 MG TABLET PO SCH (09:04)
[2024-01-11] MEDS: SPIRONOLACTONE 25 MG TABLET PO SCH (09:04)
[2024-01-11] MEDS: carvediloL 25 MG TAB PO SCH (09:04)
--- NOTE | 2024-01-11 09:36 | RAD REPORT ---
EXAM DESCRIPTION: US - Abdomen Pelvis Scan US - 01/11/2024 9:08 am CLINICAL HISTORY: eval renal artery stenosis, rell/ckd COMPARISON: Chest Abd Pelvis Wo Con dated 06/07/2023 FINDINGS: The bilateral kidneys are normal in size, the right measuring 8.2 cm and the left measurin g 9.3 cm Aortic velocity: 64 cm/second Right proximal renal artery: 69 cm/second Right mid renal artery: 59 cm/second Right distal renal artery: 57 cm/second Right renal arcuate artery resistive index: 1.1 Right renal artery / aorta ratio: 0.9 Left proximal renal artery: 83 cm/second Left mid renal artery: 94 cm/second Left distal renal artery: 60 cm/second Left renal arcuate artery resistive index: 1.5 Left renal artery/aorta ratio: 1.0 Normal waveforms demonstrated within the bilateral renal arteries. IMPRESSION: No evidence of hemodynamically significant stenosis within the bilateral renal arteries.
[2024-01-11] MEDS: SILVER SULFADIAZINE 1% 50 GM TOP SCH (10:22)
[2024-01-11] MEDS ORDERED: ALBUTEROL 2.5 MG/3 ML NEB SOL NEB PRN (11:57)
[2024-01-11 12:01] VITALS: O2SAT 98
[2024-01-11] MEDS: NA CHLORIDE 0.9% 1,000 ML IV SCH (12:21)
--- NOTE | 2024-01-11 13:38 | P.PN ---
Date of Service: 01/11/24 Subjective: Feeling good today no acute events overnight Anxious to get home ROS: 10 point ROS as noted above, otherwise negative Physical exam GEN: Alert, oriented, NAD HEENT: Normal conjunctiva, sclera anicteric CV: Regular rate and rhythm, no edema Pulm: Nonlabored respirations on room air ABD: Soft, nontender, nondistended MSK: No joint tenderness Integumentary: No rashes, chronic appearing wounds to lower extremities with questionable surrounding cellulitis Neuro: Normal speech, normal affect Vitals reviewed Problem List Syncope History of atrial fibrillation on chronic anticoagulation KAITLIN on CKD 3 Hypertension Diabetes mellitus type 2insulin-dependent Chronic diastolic congestive heart failure Chronic ulceration of bilateral lower extremities History of CAD Plan Syncope Monitor on telemetry, trend troponins Echocardiogram 01/19/2023 shows moderate to severe aortic valve stenosis Cardiology evaluated patient rec. DC isorbide, avoid hypotension Denies chest pain, palpitations. Had not recently changed positions prior to syncope Chronic diastolic congestive heart failure Does not appear grossly overloaded Chest x-ray with pulmonary edema versus pneumonia Continue empiric antibiotics for possible pneumonia versus cellulitis with vancomycin/cefepime per ID Nephrology DC'd lasix given kaitlin, on gentle IVF for today History of atrial fibrillation on chronic anticoagulation Home medications continued including Eliquis KAITLIN on CKD 3 Nephrology consulted giving underlying CKD CR elevated today 2.78 Nephrology adjusted meds/fluids Repeat chemistry in the AM Renal artery US performed 01/10 negative for JESSICA Hypertension Continue home medications Diabetes mellitus type 2insulin-dependent ACHS Accu-Chek, sliding scale insulin Chronic ulceration of bilateral lower extremities ID consulted Continue antibiotics Wound to the consult Follows outpatient wound healing center with Dr. Granados History of CAD Home medications continued VTE: Continue Eliquis Code: Full code Dispo: 1 to 2 days Time Spent Managing Pts Care (In Minutes): 35
--- NOTE | 2024-01-11 16:17 | PN ---
Date of Progress Note: 01/11/2024 Subjective: The patient was admitted to the hospital with acute kidney injury. The patient has ruma estive heart failure and lymphoma. The patient upon arrival to the hospital, blood pressure was on t he lower side on the 70. The patient currently on room air. Patient was placed on spironolactone an d Lasix. Objective: Vital Signs: When I saw the patient, blood pressure 124/64, pulse of 79, afebrile. The patient had good urine output of 1800. Chest: Clear to auscultation. Heart: S1, S2. Systolic murmur. Abdomen: Soft, nontender. Extremity: Trace edema. Neurologic: Alert. No focality. Imaging: Renal ultrasound, no obstruction, with small size kidney, bilateral. Patient known to have advanced chronic kidney disease with creatinine around the 2. Laboratory Data: Hemoglobin 14.0, sodium 134, potassium 4.8, bicarb 25, BUN 48, creatinine 1.8, calc ium 9.5, magnesium 2.4. Urinalysis: +2 protein. Current Medications: Include Lasix b.i.d. 40, carvedilol 25, hydralazine 100 t.i.d., Tylenol, Pepcid , spironolactone. Assessment And Plan: 1.Acute kidney injury secondary to prerenal, poor perfusion, acute tubular necrosis, looked to me sl ightly on the dry side. Patient is still on room air. I am going to go ahead and discontinue Lasix, discontinue spironolactone, and we will follow up the patient. Start the patient on gentle hydratio n and we will follow up the patient. I am going to go ahead and send for uric acid and CK and PTH to confirm the chronicity of the disease. 2.Hypertension, controlled, optimal with the presence of acute kidney injury. I am going to hold La six and spironolactone. Avoid TESSA inhibitor or ARB and we will continue to monitor. 3.Congestive heart failure, currently patient on room air. Discontinue diuresis. We will monitor. 4.Edema, mostly secondary to cardiorenal. Again patient at room air. Discontinue diuresis. With t he presence of acute kidney injury, I am going to send for PC ratio and TSH and we will follow up. ROBERT/LORNE Voice ID: [id number] Report ID: [id number]
--- NOTE | 2024-01-11 21:42 | PN ---
Date of Progress Note: 01/11/2024 Subjective: Seen by bedside. No new complaints. Review of Systems: No chest pain, shortness of breath, orthopnea, or cough. No nausea, vomiting, or diarrhea. All othe r systems were reviewed and they were negative. Objective: Vital Signs: Reviewed. Head and Neck: Pupils are equal, reactive to light. Intact eye movements. No JVD. No cervical lym phadenopathy. Neck is supple. Thyroid is not enlarged. Lungs: Clear to auscultation bilaterally. No rhonchi, wheezing, or crackles. No accessory muscle u se. Heart: Irregular. No extra sounds. Abdomen: Soft, nontender. Bowel sounds positive. No organomegaly. No masses or hernia. No rigidi ty or rebound. Extremities: No clubbing or cyanosis. Neurologic: Alert, awake, oriented x3. No acute focal deficits appreciated. Investigations: BUN 48, creatinine 2.78, and hemoglobin is 14. Assessment And Recommendations: 1.Acute renal failure due to dehydration. Lasix was discontinued and gentle hydration is being done and monitor carefully BUN, creatinine, electrolytes and the patient is being evaluated by Nephrology . 2.Syncope due to hypotension due to multiple medications that lowers the blood pressure and probably was dehydrated. Symptoms have resolved. 3.Atrial fibrillation. This condition is controlled. Continue current management. Cardiology will sign off on this case. SR/MODL Voice ID: [id number] Report ID: [id number]
[2024-01-12 07:25] LABS: Hemoglobin 13.2 g/dL (13.6-17.9); MCH 26.7 pg (27.0-35.0); MCHC 31.4 g/dL (32.0-36.0); MPV 8.4 fL (7.6-11.3); Platelets 322 thou/uL (152-406); RBC Red Blood Cell Count 4.94 M/uL (4.33-5.43); Red Cell Distribution Width 18.3 % (12.1-15.2)
[2024-01-12 07:53] LABS: Albumin 2.4 g/dL (3.4-5.0); Anion Gap 8.8 mEq/L (5.0-15.0); Magnesium 2.3 mg/dL (1.6-2.4); Phosphorus 3.4 mg/dL (2.5-4.9); Potassium 4.8 mEq/L (3.5-5.1); Thyroid Stimulating Hormone 3.32 uIU/mL (0.358-3.740); Uric Acid 8.8 mg/dL (3.5-7.2)
[2024-01-12] MEDS: DOXYCYCLINE 100 MG CAP PO SCH (09:34)
[2024-01-12 11:55] VITALS: BP 138/63; TEMP 98.3
--- NOTE | 2024-01-12 13:31 | P.DS ---
Admission Date: 01/09/24 Discharge Date: 01/12/24 Disposition: DC HOME/HOME HEALTH CARE Discharge Condition: GOOD Reason for Admission: Near syncope Consultations: NephrologyDr. Mitchell CardiologyDr. Alvarez Brief History of Present Illness: 73-year-old male with past medical history of HTN/DM/CAD status post PCI/systolic CHF/A-fib on chronic anticoagulation/chronic lymphedema with multiple advised bilateral lower extremity woundsfollow-up with wound clinic, developed sudden onset feeling of dizziness while ambulating today to the kitchen to get something to eat. Patient states he felt sudden weakness and has Safe to the floor. He is not sure if he actually passed out. On arrival of EMS patient was noted with low blood pressure with systolic in the 70s over 40s, he received 1 L bolus with improvement in his blood pressure. On arrival in the ED he was rather hypertensive with blood pressure 9180s systolic requiring dose of IV hydralazine as well as IV Lasix. His blood pressures in the 140s now. Patient denies any nausea vomiting or diarrhea. He denies any recent medication changes. He denies any fever or chills. Workup in the ED shows normal WBC and hemoglobin, BMP shows creatinine of 2.3 about baseline, potassium of 5.0. Lactic acid was mildly elevated at 2.3. Head CT was negative. proBNP was elevated at greater than 2100. EKG shows normal normal sinus rhythm with no ST segment changes Chest x-ray shows pulmonary edema versus pneumonia. Patient has been admitted for presumed pneumonia/lower extremity cellulitis with near syncope. Hospital Course: Problem List Syncope History of atrial fibrillation on chronic anticoagulation KAITLIN on CKD 3 Hypertension Diabetes mellitus type 2insulin-dependent Chronic diastolic congestive heart failure Chronic ulceration of bilateral lower extremities History of CAD Patient was admitted to the hospital for a syncopal episode at home. He was found to have low blood pressure in the field which responded to IV fluids. On his chest x-ray there is some concern for possible pneumonia and he does have a chronic wounds to his lower extremities so there was some concern for infection. Patient was admitted his troponin was mildly elevated peaking at 70.4. Patient was seen by cardiology who believes his episode is related to hypotension and medication related, he had no further episodes of syncope/near syncope, he denied any chest pain at any point in time and had no arrhythmias noted on telemetry during his hospitalization .His creatinine did trend up initially to 2.78 but is stable/slightly decreased today at 2.67-day of discharge. Baseline creatinine is around 2.3 At discharge he should continue taking the following medications as prescribed previously: Carvedilol 25 mg by mouth twice daily Hydralazine 100 mg p.o. 3 times daily Eliquis 2.5 mg by mouth twice daily Rosuvastatin 10 mg at bedtime Your Lasix/furosemide which you currently take 40 mg by mouth twice daily you should reduce to 40 mg mouth once daily for now. If you notice any increased swelling in your lower extremities, significant weight gain or increasing shortness of breath please go back to taking it twice daily and contact your primary care doctor. You should discontinue/stop your blood pressure medications losartan and spironolactone given your current kidney function as well as isosorbide dinitrate if you are still taking this medication. You will also be getting a prescription sent to your pharmacy for antibiotics for the possible pneumonia/cellulitis lower extremity Cefpodoxime 200 mg mouth daily for 5 days Doxycycline 100 mg by mouth twice daily for 5 days Please follow-up with your primary care doctor and other consultants for further adjustment of your medications Please follow-up with your primary care doctor 1 to 2 weeks Please follow-up with nephrologyDr. Mitchell in 1 to 2 weeks Follow-up with cardiologyDr. Alvarez in 1 to 2 weeks Vital Signs/Physical Exam: Temp Pulse Resp BP Pulse Ox 98.3 F 71 15 138/63 91 01/12/24 11:43 01/12/24 11:43 01/12/24 11:43 01/12/24 11:43 01/12/24 11:43 General: Alert, In no apparent distress, Oriented x3 HEENT: Atraumatic, PERRLA Neck: Supple, JVD not distended Respiratory: Clear to auscultation bilaterally, Normal air movement Cardiovascular: Regular rate/rhythm, Normal S1 S2 Gastrointestinal: Normal bowel sounds Musculoskeletal: No tenderness Integumentary: No rashes Neurological: Normal speech, Normal tone Laboratory Data at Discharge: WBC 8.60 thou/uL (4.3-10.9) 01/12/24 07:09 Hgb 13.2 g/dL (13.6-17.9) L 01/12/24 07:09 Hct 42.0 % (39.6-49.0) 01/12/24 07:09 Plt Count 322 thou/uL (152-406) 01/12/24 07:09 PT 11.9 SECONDS (9.5-12.5) 01/09/24 14:05 INR 1.08 01/09/24 14:05 APTT 37.9 SECONDS (24.3-36.9) H 01/09/24 14:05 Sodium 136 mEq/L (136-145) 01/12/24 07:09 Potassium 4.8 mEq/L (3.5-5.1) 01/12/24 07:09 BUN 56 mg/dL (7-18) H 01/12/24 07:09 Creatinine 2.67 mg/dL (0.70-1.30) H 01/12/24 07:09 Glucose 159 mg/dL (74-106) H 01/12/24 07:09 Uric Acid 8.8 mg/dL (3.5-7.2) H 01/12/24 07:09 Phosphorus 3.4 mg/dL (2.5-4.9) 01/12/24 07:09 Magnesium 2.3 mg/dL (1.6-2.4) 01/12/24 07:09 Total Bilirubin 0.6 mg/dL (0.2-1.0) 01/10/24 04:06 AST 11 U/L (15-37) L 01/10/24 04:06 ALT 13 U/L (16-61) L 01/10/24 04:06 Alkaline Phosphatase 73 U/L (45-117) 01/10/24 04:06 Home Medications: Apixaban [Eliquis *] 2.5 mg PO BID #60 tab 01/29/23 Aspirin Chewable [Aspirin Chewable*] 81 mg PO DAILY tab.chew 01/29/23 Atorvastatin Calcium [Lipitor] 40 mg PO BEDTIME #30 tab 01/29/23 Ensure High Protein 273 ml PO TID #90 can 03/18/23 Benzonatate [Tessalon Perle*] 100 mg PO TID 04/22/23 Mupirocin Oint [Bactroban 2% Ointment*] 1 appl TOP DAILY #1 tube 04/25/23 Cefpodoxime Proxetil [Vantin] 200 mg PO DAILY #5 tab 01/12/24 Doxycycline Hyclate 100 mg PO BID #10 cap 01/12/24 Famotidine [Pepcid*] 20 mg PO BEDTIME tab 01/12/24 Hydralazine [Apresoline*] 100 mg PO TID tab 01/12/24 carvediloL [Coreg*] 25 mg PO BIDWM tab 01/12/24 New Medications: Doxycycline Hyclate 100 mg PO BID #10 cap Cefpodoxime Proxetil [Vantin] 200 mg PO DAILY #5 tab Physician Discharge Instructions: Patient was admitted to the hospital for a syncopal episode at home. He was found to have low blood pressure in the field which responded to IV fluids. On his chest x-ray there is some concern for possible pneumonia and he does have a chronic wounds to his lower extremities so there was some concern for infection. Patient was admitted his troponin was mildly elevated peaking at 70.4. Patient was seen by cardiology who believes his episode is related to hypotension and medication related, he had no further episodes of syncope/near syncope, he denied any chest pain at any point in time and had no arrhythmias noted on telemetry during his hospitalization .His creatinine did trend up initially to 2.78 but is stable/slightly decreased today at 2.67-day of discharge. Baseline creatinine is around 2.3 At discharge he should continue taking the following medications as prescribed previously: Carvedilol 25 mg by mouth twice daily Hydralazine 100 mg p.o. 3 times daily Eliquis 2.5 mg by mouth twice daily Rosuvastatin 10 mg at bedtime Your Lasix/furosemide which you currently take 40 mg by mouth twice daily you should reduce to 40 mg mouth once daily for now. If you notice any increased swelling in your lower extremities, significant weight gain or increasing shortness of breath please go back to taking it twice daily and contact your primary care doctor. You should discontinue/stop your blood pressure medications losartan and spironolactone given your current kidney function as well as isosorbide dinitrate if you are still taking this medication. You will also be getting a prescription sent to your pharmacy for antibiotics for the possible pneumonia/cellulitis lower extremity Cefpodoxime 200 mg mouth daily for 5 days Doxycycline 100 mg by mouth twice daily for 5 days Please follow-up with your primary care doctor and other consultants for further adjustment of your medications Please follow-up with your primary care doctor 1 to 2 weeks Please follow-up with nephrologyDrAlbert Mitchell in 1 to 2 weeks Follow-up with cardiologyDrAlbert Alvarez in 1 to 2 weeks Diet: Renal Activity: Fall precautions Followup: Selena Mitchell MD [ACTIVE - CAN ADMIT] - 1-2 Weeks Bassam Donis MD [Primary Care Provider] - 1-2 Weeks Chad Alvarez MD [ACTIVE - CAN ADMIT] - 1-2 Weeks Time spent managing pt's care (in minutes): 30
== END 2024-01-12 12:44 | disposition home health service (06) | DRG 193 ==
LOC: ER 13:35 → ERHOLD 19:21 → 4TH 21:24
PROVIDERS: ADMIT Internal Medicine; ATTEND Hospitalist
DX: J18.9 Pneumonia, unspecified organism (principal); N17.0 Acute kidney failure with tubular necrosis; L03.116 Cellulitis of left lower limb; I13.0 Hypertensive heart and chronic kidney disease with heart failure and stage 1 through stage 4 chronic kidney disease, or unspecified chronic kidney disease; I50.32 Chronic diastolic (congestive) heart failure; L97.919 Non-pressure chronic ulcer of unspecified part of right lower leg with unspecified severity; L97.929 Non-pressure chronic ulcer of unspecified part of left lower leg with unspecified severity; L03.115 Cellulitis of right lower limb; N18.30 Chronic kidney disease, stage 3 unspecified; E11.22 Type 2 diabetes mellitus with diabetic chronic kidney disease; I95.2 Hypotension due to drugs; T50.915A Adverse effect of multiple unspecified drugs, medicaments and biological substances, initial encounter; I35.0 Nonrheumatic aortic (valve) stenosis; E86.0 Dehydration; I48.91 Unspecified atrial fibrillation; I87.8 Other specified disorders of veins; E78.00 Pure hypercholesterolemia, unspecified; I83.009 Varicose veins of unspecified lower extremity with ulcer of unspecified site; I25.10 Atherosclerotic heart disease of native coronary artery without angina pectoris; Z88.0 Allergy status to penicillin; Z95.5 Presence of coronary angioplasty implant and graft; Z79.01 Long term (current) use of anticoagulants; Z79.82 Long term (current) use of aspirin; Z79.899 Other long term (current) drug therapy; Z91.148 Patient's other noncompliance with medication regimen for other reason
CPT/HCPCS: 36415; 70450; 71045; 80048; 80053; 80069; 80076; 81001; 82947; 83605; 83735; 83880; 83970; 84443; 84484; 84550; 85025; 85027; 85610; 85730; 87040; 93005; 93975; 96365; 96366; 96375; 99285; J0360; J0692; J1815; J1940; J7030; J7050

== ENCOUNTER 2024-01-30 08:36 | Observation (INO) | payer OTHER ==
--- OUTSIDE RECORDS SUMMARY | 2024-01-30 08:40 | XMS REPORT | Continuity of Care Document ---
Author Name Unknown Address [address] [facility]. [address] [facility] Address [address] [facility] 1 [address] [place] [address] Care Team Providers Care Appellate Court Clerk Name Role Phone KAPIL DONIS Primary Care Physician UnavailKapil Landaverde Attending Clinician Unavailable Michael Orozco Attending Clinician Loc Alcocer RN, Jose Lazo Attending Clinician Unavail Romel Martinez Attending Clinician [phone] Starla Tafoya MD Attending Clinician [phone] Kel Yin MD Attending Clinician [phone] KEL YIN Attending Clinician Unavailable Brissa Reinoso Attending Clinician Unavaila Chad Ospina Attending Clinician Unavailable Physician, No Primary or Family Admitting Clinic joe Unavailable Starla Tafoya MD Admitting Clinician [phone] STARLA TAFOYA Admitting Clinician Unavailable Payers Payer Name Policy Type Policy Number Effective Date Expirati on Date Source [place] [id number] [facility] Problems Condition Name Condition Details Condition Category Status Onset Date Resolution Date Last Treatment Date Treating Clinician Comments Source Nausea and vomiting in adult Nausea and vomiting in adult Disease Active 03-08 00:00: 00 [facility] MULLER (dyspnea on exertion) MULLER (dyspnea on exertion) Disease Active 03-08 00:00: 00 [facility] Coronary artery disease involving [place] coronary artery of [place] heart with angina pectoris Coronary artery disease involving [place] coronary artery of [place] heart with angina pectoris Disease Active 03-08 00:00: 00 [facility] Dyslipidem ia Dyslipidem ia Disease Active 03-08 00:00: 00 [facility] Uncontroll ed hypertensi on Uncontroll ed hypertensi on Disease Active 03-08 00:00: 00 [facility] Chronic heart failure with preserved ejection fraction Chronic heart failure with preserved ejection fraction Disease Active 03-08 00:00: 00 [facility] PAF (paroxysma l atrial fibrillati on) PAF (paroxysma l atrial fibrillati on) Disease Active 03-08 00:00: 00 [facility] Type 2 diabetes mellitus with other specified complicati on Type 2 diabetes mellitus with other specified complicati on Disease Active 03-08 00:00: 00 [facility] Elevated troponin I level Elevated troponin I level Disease Active 03-08 00:00: 00 [facility] Angina of effort Angina of effort Disease Active 02-17 00:00: 00 [facility] [id number] ED (erectile dysfunctio n) of organic origin Problem Active [facility] [id number] Prostate nodule Problem Active [facility] [id number] Urge incontinen ce Problem Active [facility] [id number] Lower urinary tract symptoms (LUTS) Problem Active [facility] Allergies, Adverse Reactions, Alerts Allergy Name Allergy Type Status Severity Reaction(s) Onset Date Inactive Date Treating Clinician Comments Source Penicill ins DA Active SV HIVES 8-05 00:00: 00 EMILEE miller [facility] Penicill ins Propensi ty to adverse reaction s Active Rash 02-17 00:00: 00 [facility] PENICILL INS Drug Class Active Rash 02-17 00:00: 00 [facility] Social History Social Habit Start Date Stop Date Quantity Comments Source History of tobacco use Passive smoker [facility] History SDOH Alcohol Std Drinks [facility] History SDOH Alcohol Binge [facility] History SDOH Social Connections Get Together [facility] History SDOH Social Connections Zoroastrianism [facility] History SDOH Social Connections Membership [facility] History SDOH Social Connections Meetings [facility] Tobacco use and exposure 2023-03-08 00:00:00 2023-03-08 00:00:00 Smokeless tobacco non-user [facility] Alcohol intake 2023-03-08 00:00:00 2023-03-08 00:00:00 3 /d [facility] History SDOH Alcohol Frequency 2023-03-08 00:00:00 2023-03-08 00:00:00 1 [facility] History SDOH Social Connections Phone 2023-03-08 00:00:00 2023-03-08 00:00:00 5 [facility] History SDOH Social Connections Living 2023-03-08 00:00:00 2023-03-08 00:00:00 3 [facility] History SDOH Financial 2023-03-08 00:00:00 2023-03-08 00:00:00 5 [facility] History SDOH Food Worry 2023-03-08 00:00:00 2023-03-08 00:00:00 1 [facility] History SDOH Food Scarcity 2023-03-08 00:00:00 2023-03-08 00:00:00 1 [facility] History SDOH Transport Med 2023-03-08 00:00:00 2023-03-08 00:00:00 2 [facility] History SDOH Transport Non-Med 2023-03-08 00:00:00 2023-03-08 00:00:00 2 [facility] History SDOH Housing Unable to Pay 2023-03-08 00:00:00 2023-03-08 00:00:00 2 [facility] History SDOH Housing Places Lived 2023-03-08 00:00:00 2023-03-08 00:00:00 1 [facility] History SDOH Housing Homeless Last Year 2023-03-08 00:00:00 2023-03-08 00:00:00 2 [facility] Tobacco Comment 2023-03-08 00:00:00 2023-03-08 00:00:00 quit smoking 20 yrs ago [facility] Sex Assigned At 1950 00:00:00 1950 00:00:00 [facility] Smoking Status Start Date Stop Date Source Ex-smoker 2023-03-08 00:00:00 2023-03-08 [facility] Ordered Medication Name Filled Medication Name Start Date Stop Date Current Medication? Ordering Clinician Indication Dosage Frequency Signature (SIG) Comments Components Source insulin glargine 100 unit/mL injection 03-10 00:00: 00 Yes [id number] 15U inject 15 Units under the skin in the morning. [facility] amLODIPine 10 mg tablet 03-10 00:00: 00 04-10 04:59 :00 No [id number] 10mg Take 1 tablet by mouth in the morning for 30 days. [facility] metoprolol succinate XL 50 mg 24 hr tablet 03-10 00:00: 00 04-10 04:59 :00 No [id number] 50mg Take 1 tablet by mouth in the morning for 30 days. [facility] glimepiride (AMARYL) 4 mg tablet 03-09 19:56: 26 Yes 4mg Take 4 mg by mouth daily with breakfast. [facility] ALPRAZolam (XANAX) 1 mg tablet 03-09 19:56: 26 Yes 1mg Take 1 mg by mouth 3 (three) times daily. [facility] omega-3 fatty acids-vitam in E (FISH OIL) 1,000 mg capsule 03-09 19:56: 26 Yes 1g Take 1 g by mouth daily. [facility] rosuvastati n (CRESTOR) 10 mg tablet 03-09 15:36: 42 03-09 00:00 :00 No 10mg Take 10 mg by mouth at bedtime. [facility] metoprolol succinate XL (TOPROL XL) 50 mg 24 hr tablet 03-09 15:36: 42 03-09 00:00 :00 No 50mg Take 50 mg by mouth daily. [facility] hydrochloro thiazide (ESIDRIX) 25 mg tablet 03-09 15:36: 42 03-09 00:00 :00 No 25mg Take 25 mg by mouth daily. [facility] canaglifloz in (INVOKANA) 300 mg tablet 03-09 15:36: 42 03-09 00:00 :00 No Take by mouth. [facility] metFORMIN (GLUCOPHAGE ) 1,000 mg tablet 03-09 15:36: 42 03-09 00:00 :00 No 1000mg Take 1,000 mg by mouth 2 (two) times daily with meals. [facility] Amlodipine- Olmesartan (SKYLAR) 10-40 mg per tablet 03-09 15:36: 42 03-09 00:00 :00 No Take by mouth. [facility] INSULIN DETEMIR (LEVEMIR FLEXTOUCH SC) 03-09 15:36: 42 03-09 00:00 :00 No inject under the skin. [facility] aspirin 81 mg EC tablet 03-09 15:36: 42 03-09 00:00 :00 No 81mg Take 81 mg by mouth daily. [facility] rosuvastati n (CRESTOR) tablet 10 mg 03-09 02:00: 00 Yes 10mg 10 mg, Oral, QHS, First dose on Mon03/08/23 at 2100, Until Discontinu ed, Routine [facility] aspirin 81 mg EC tablet 03-09 00:00: 00 04-09 04:59 :00 No [id number] 81mg Take 1 tablet by mouth in the morning for 30 days. [facility] hydroCHLORO thiazide 25 mg tablet 03-09 00:00: 00 04-09 04:59 :00 No [id number] 25mg Take 1 tablet by mouth in the morning for 30 days. [facility] metFORMIN 1,000 mg tablet 03-09 00:00: 00 04-09 04:59 :00 No [id number] 1000mg Take 1 tablet by mouth in the morning and 1 tablet in the evening. Take with meals. Do all this for 30 days. [facility] rosuvastati n 10 mg tablet 03-09 00:00: 00 04-09 04:59 :00 No [id number] 10mg Take 1 tablet by mouth at bedtime for 30 days. [facility] sulfur hexafluorid e microsphr (LUMASON) injection 5 mL 03-08 15:45: 00 03-08 15:45 :00 No [id number] 5mL 5 mL, Intravenou s, ONCE, 1 dose, On Mon03/08/23 at 1045, Routine
member of technical staff approving Restricted medication : RONALD AVILA [facility] Saline Bubble Study 03-08 15:41: 23 Yes [id number] 6mL 6 mL, Injection, SEE-INSTRU CTIONS, Starting on Mon03/08/23 at 1041, Until Discontinu ed, Routine [facility] insulin glargine (LANTUS U-100) injection 15 Units 03-08 14:15: 00 Yes 15U 15 Units, Subcutaneo us, DAILY, First dose on Mon03/08/23 at 0915, Until Discontinu ed, Routine [facility] amLODIPine (NORVASC) tablet 10 mg 03-08 14:15: 00 Yes 10mg 10 mg, Oral, DAILY, First dose on Mon03/08/23 at 0915, Until Discontinu ed, Routine [facility] metoprolol succinate XL (TOPROL XL) tablet 50 mg 03-08 14:15: 00 Yes 50mg 50 mg, Oral, DAILY, First dose on Mon03/08/23 at 0915, Until Discontinu ed, Routine [facility] hydroCHLORO thiazide (ESIDRIX) tablet 25 mg 03-08 14:15: 00 Yes 25mg 25 mg, Oral, DAILY, First dose on Mon03/08/23 at 0915, Until Discontinu ed, Routine [facility] aspirin EC tablet 81 mg 03-08 14:15: 00 Yes 81mg 81 mg, Oral, DAILY, First dose on Mon03/08/23 at 0915, Until Discontinu ed, Routine [facility] ALPRAZolam (XANAX) tablet 1 mg 03-08 14:04: 36 Yes 1mg 1 mg, Oral, TIDPRN, Starting on Mon03/08/23 at 0904, Until Discontinu ed, Routine, Anxiety [facility] Sliding Scale Insulin - Lispro (HumaLOG) 03-08 13:00: 00 Yes Subcutaneo us, TID MEALS+HS, First dose on Mon03/08/23 at 0800, Until Discontinu ed, Routine [facility] heparin (porcine) injection 5,000 Units 03-08 11:00: 00 Yes 5000U 5,000 Units, Subcutaneo us, Q8H, First dose on Mon03/08/23 at 0600, Until Discontinu ed, Routine [facility] hydralAZINE (APRESOLINE ) injection 10 mg 03-08 09:38: 44 Yes 10mg 10 mg, Slow IV Push, Q4HPRN, Starting on Mon03/08/23 at 0438, Until Discontinu ed, Routine, DBP=>100; SBP=>180 [facility] glucagon (GLUCAGEN DIAGNOSTIC KIT) injection 1 mg 03-08 09:36: 45 Yes 1mg 1 mg, Intramuscu lar, PRN, Starting on Mon03/08/23 at 0436, Until Discontinu ed, RENETTA, Blood Glucose < or = 70 mg/dL and patient is NPO, unable to swallow or has mental changes. [facility] dextrose 50 % in water (D50W) injection 25 mL 03-08 09:36: 45 Yes 25mL 25 mL, Slow IV Push, PRN, Starting on Mon03/08/23 at 0436, Until Discontinu ed, RENETTA, Blood Glucose < or = 70 mg/dL and patient is NPO, unable to swallow or has mental status changes. [facility] ondansetron (ZOFRAN (PF)) injection 4 mg 03-08 09:36: 24 Yes 4mg 4 mg, Slow IV Push, Q6HPRN, Starting on Mon03/08/23 at 0436, Until Discontinu ed, Routine, Nausea and Vomiting (N/V) [facility] HYDROcodone -acetaminop hen (NORCO 5) 5-325 mg tablet 1 tablet 03-08 09:36: 16 03-10 09:35 :16 No 1{tbl} 1 tablet, Oral, Q6HPRN, Starting on Mon03/08/23 at 0436, Until Mon03/10/23 at 0435, Routine, Pain (scale 4-6) [facility] acetaminoph en (TYLENOL) tablet 650 mg 03-08 09:36: 10 Yes 650mg 650 mg, Oral, Q6HPRN, Starting on Mon03/08/23 at 0436, Until Discontinu ed, Routine, Pain (scale 1-3), Temp > 38 C [facility] ondansetron (ZOFRAN (PF)) injection 4 mg 03-08 05:45: 00 03-08 05:40 :00 No 4mg 4 mg, Slow IV Push, ONCE, 1 dose, On Mon03/08/23 at 0045, RENETTA [facility] VESIcare 5 MG VESIcare 5 MG [...] Systolic blood pressure 2023-03-10 00:08:00 163 mm[Hg] [facility] Diastolic blood pressure 2023-03-10 00:08:00 90 mm[Hg] [facility] Heart rate 2023-03-10 00:08:00 70 /min [facility] Body temperature 2023-03-10 00:08:00 35.17 Teresa [facility] Respiratory rate 2023-03-10 00:08:00 16 /min [facility] Oxygen saturation in Arterial blood by Pulse oximetry 2023-03-10 00:08:00 90 /min [facility] Body weight 2023-03-09 08:37:00 102.967 kg [facility] BMI 2023-03-09 08:37:00 30.79 kg/m2 [facility] Body height 2023-03-08 09:35:00 182.9 cm [facility] height 2020-12-03 11:15:00 70 [in_i] Commo n [facility] weight 2020-12-03 11:15:00 197 [lb_av] Comm on [facility] temperature 2020-12-03 11:15:00 97.6 [degF] Com mon [facility] bmi 2020-12-03 11:15:00 28.26 kg/m2 Comm on [facility] oximetry 2020-12-03 11:15:00 97 % Commo n [facility] blood pressure systolic 2020-12-03 11:15:00 139 mm[Hg] [facility] blood pressure diastolic 2020-12-03 11:15:00 64 mm[Hg] Common [facility] height 2020-08-24 14:00:00 70 [in_i] Commo n [facility] weight 2020-08-24 14:00:00 199.6 [lb_av] Co mmon [facility] temperature 2020-08-24 14:00:00 98.4 [degF] Com mon [facility] bmi 2020-08-24 14:00:00 28.64 kg/m2 Comm on [facility] oximetry 2020-08-24 14:00:00 96 % Commo n [facility] blood pressure systolic 2020-08-24 14:00:00 197 mm[Hg] Common [facility] blood pressure diastolic 2020-08-24 14:00:00 86 mm[Hg] [facility] Procedures Procedure Date / Time Performed Performing Clinician Source POCT GLUCOSE (AUTOMATED) 2023-03-09 21:33:00 Janiya Tafoya [facility] POCT GLUCOSE (AUTOMATED) 2023-03-09 16:39:00 Janiya Tafoya [facility] POCT GLUCOSE (AUTOMATED) 2023-03-09 12:45:00 Janiya Tafoya [facility] PHOSPHORUS 2023-03-09 09:02:00 [facility] MAGNESIUM 2023-03-09 09:02:00 Starla Tafoya [facility] TROPONIN I 2023-03-09 09:02:00 Kel Yin [facility] HEPATIC FUNCTION PANEL ([id number]) (ALB,T.PRO,BILI T,BU/BC,ALT,AST,ALK PHOS) 2023-03-09 09:02:00 Kel Yin [facility] BASIC METABOLIC PANEL (NA, K, CL, CO2, GLUCOSE, BUN, CREATININE, CA) 2023-03-09 09:02:00 Starla Tafoya [facility] CBC WITH DIFF 2023-03-09 09:02:00 Jagdish Martin [facility] N-TERMINAL PRO-BNP 2023-03-09 09:02:00 Kel Yin [facility] POCT GLUCOSE (AUTOMATED) 2023-03-09 02:08:00 Janiya Tafoya fay [facility] TROPONIN I 2023-03-08 22:51:00 Michelet [facility] GLYCOSYLATED HEMOGLOBIN (A1C) 2023-03-08 22:51:00 Jagdish Martin [facility] POCT GLUCOSE (AUTOMATED) 2023-03-08 21:22:00 Janiya Tafoya [facility] POCT GLUCOSE (AUTOMATED) 2023-03-08 16:16:00 Janiya Tafoya fay [facility] TRANSTHORACIC ECHO (TTE) COMPLETE W/ CONTRAST 2023-03-08 14:29:00 [facility] 2023-03-08 12:39:00 Janiya Tafoya [facility] PHOSPHORUS 2023-03-08 11:24:[address] [facility] TROPONIN I 2023-03-08 11:24:00 Michelet [facility] N-TERMINAL PRO-BNP 2023-03-08 11:24:00 Candi Patel [facility] XR CHEST 1 VW 2023-03-08 06:27:00 Temi Holloway [facility] HB ECG ROUTINE & RHYTHM STRIP 2023-03-08 05:39:37 Temi Holloway [facility] LIPASE 2023-03-08 05:39:00 Temi Holloway [facility] TROPONIN I 2023-03-08 05:39:00 Temi Holloway [facility] THYROID STIMULATING HORMONE 2023-03-08 05:39:00 Starla Tafoya [facility] COMP. METABOLIC PANEL (09082) 2023-03-08 05:39:00 Temi Holloway [facility] LIPID PANEL (14380)(TOTAL CHOLESTEROL, TRIGLYCERIDES, HDL) 2023-03-08 05:39:00 Starla Tafoya [facility] CBC WITH DIFF 2023-03-08 05:39:00 Temi Holloway [facility] GLYCOSYLATED HEMOGLOBIN (A1C) 2023-03-08 05:39:00 [facility] Start Date/Time End Date/Time Encounter Type Admission Type Attending [facility] Care Facility Care Department Encounter ID Source 2021-10-27 12:15:25 Outpatient Donis, Kapil [facility] [id number] [facility] 2021-10-27 12:07:45 Outpatient [facility] [id number] Common [facility] 2023-08-08 10:16:00 2023-08-08 10:16:00 Outpatient MAGDALENE Pittelizabeth Michael [facility] EKG [id number] [facility] 2023-03-10 00:00:00 2023-03-10 00:00:00 Transition of Care Jose Alcocer [address] 1..[id number] [facility] 2023-03-08 00:29:00 2023-03-09 19:46:00 Emergency Romel Montez Jelani Abdullah, Yaman [facility] ..[id number] [facility] 2023-03-08 00:29:00 2023-03-09 19:46:00 Outpatient KEL ALVAREZ [facility] [id number] [facility] 2022-05-31 08:52:00 2022-05-31 08:52:00 Outpatient Brissa Dial [facility] [id number] [facility] 2022-05-11 10:11:00 2022-05-11 10:11:00 Outpatient Chad Rae [facility] [id number] [facility] 2022-05-11 10:11:00 2022-05-11 10:11:00 Outpatient Chad Rae [facility] [id number] [facility] 2020-12-03 00:00:00 2020-12-03 00:00:00 OFFICE VISIT ESTAB PT LEVEL 2 [facility] [id number] [facility] 2020-08-24 00:00:00 2020-08-24 00:00:00 OFFICE VISIT NEW PT LEVEL 4 [facility]LMLC STLMLC [id number] [facility] Results Test Description Test Time Test Comments Results Result Co mments Source [facility] GLUCOSE (AUTOMATED)2023-03-09 16:43:52* Test Item Value Reference Range Interpretation Comme nts POCT GLU (test code = 2022398073) 138 mg/dL 70-110 H Lab Interpretation (test cod e = 20977-0) Abnormal [facility] GLUCOSE (AUTOMATED)2023-03-09 12:55:44* Test Item Value Reference Range Interpretation Comme nts POCT GLU (test code = 7188214569) 126 mg/dL 70-110 H Lab Interpretation (test cod e = 57716-2) Abnormal [facility] GLUCOSE (AUTOMATED)2023-03-09 02:09:42* Test Item Value Reference Range Interpretation Comme nts POCT GLU (test code = 2523142019) 115 mg/dL 70-110 H Lab Interpretation (test cod e = 63746-0) Abnormal [facility] GLUCOSE (AUTOMATED)2023-03-08 21:32:42* Test Item Value Reference Range Interpretation Comme nts POCT GLU (test code = 5161914144) 266 mg/dL 70-110 H Lab Interpretation (test cod e = 11550-8) Abnormal [facility] GLUCOSE (AUTOMATED)2023-03-08 16:26:44* Test Item Value Reference Range Interpretation Comme nts POCT GLU (test code = 6454115211) 195 mg/dL 70-110 H Lab Interpretation (test cod e = 60326-2) Abnormal [facility] GLUCOSE (AUTOMATED)2023-03-08 12:40:58* Test Item Value Reference Range Interpretation [facility]me [facility]U (test code = 8324033045) 179 mg/dL 70-110 H Lab Interpretation (test cod e = 66275-3) [facility]normal [facility]TSH)2023-03-08 11:56:52* Test Item Value Reference Range Interpretation Comme nts TSH (test code = 5672676168) 5.09 See_Comment H Biotin has been reported to cause a negative bias, interpret results relative to patient's use of biotin. [Automated message] The system which generated this result transmitted reference range: 0.45 - 4.70 mIU/L. The reference range was not used to interpret this result as normal/abnormal. Lab Interpretation (test code = 27321-6) [facility]normal [facility]A1C)2023-03-08 11:27:39* Test Item Value Reference Range Interpretation Comme [facility] HGB A1C (test code = 4548-4) 9.3 % 4.0-5.7 H TRINIDAD (test code = TRINIDAD) Reference RangesNormal: <5.7%Prediabetes: 5.7 - 6.4%Diabetes: > 6.5% Lab Interpretation (test code = 47074-7) Abnormal [facility] (Total Cholesterol, Triglycerides, HDL)2023-03-08 11:14:15* Test Item Value Reference Range Interpretation Comme nts CHOL (test code = 9243964973) 166 mg/dL 120-200 HDL (test code = 1812853809) 51 mg/dL >=40 HDLC RATIO (test code = 1049301990) 3.3 <=5.0 TRIG (test code = 5219925869) 83 mg/dL 30-170 LDL CHOL (test code = 30019-5) 98 mg/dL <=160 VLDL (test code = 2970338634) 17 mg/dL 5-60 Lab Interpretation (test cod e = 63526-5) Normal [facility] [id number] 06:21:21* Test Item Value Reference Range Interpretation Comme nts TROPONIN I (test code = 7792671216) 0.075 ng/mL <=0.034 H TRINIDAD (test code [...] of biotin. Lab Interpretation (test code = 38265-5) Abnormal [facility]. METABOLIC PANEL (29538)2023-03-08 06:10:20* Test Item Value Reference Range Interpretation Comme nts NA (test code = 8867674876) 135 mmol/L 135-145 K (test code = 6246617930) 4.3 mmol/L 3.5-5.0 CL (test code = 4421286505) 104 mmol/L 98-108 CO2 TOTAL (test code = 1316945854) 26 mmol/L 23-31 AGAP (test code = 3176320829) 5 2-16 BUN (test code = 3004784869) 27 mg/dL 7-23 H GLUCOSE (test code = 1110072324) 243 mg/dL 70-110 H CREATININE (test code = 3307163484) 2.15 mg/dL 0.60-1.25 H TOTAL BILI (test code = 0567711537) 0.8 mg/dL 0.1-1.1 CALCIUM (test code = 0342475407) 8.2 mg/dL 8.6-10.6 L T PROTEIN (test code = 1723482096) 6.0 g/dL 6.3-8.2 L ALBUMIN (test code = 7214299797) 2.5 g/dL 3.5-5.0 L ALK PHOS (test code = 8626447285) 60 U/L 34-122 ALTv (test code = 1742-6) 17 U/L 5-50 AST(SGOT) (test code = 5840656939) 26 U/L 13-40 eGFR (test code = 4263032664) 30.1 mL/min/1.73m2 TRINIDAD (test code = TRINIDAD) [...] imaging tests). Lab Interpretation (test code = 44157-4) [facility]normal [facility] [id number] 06:09:44* Test Item Value Reference Range Interpretation Comme nts LIPASE (test code = 7573239367) 101 U/L 0-220 Lab Interpretation (test cod e = 78537-7) Normal [facility] WITH [id number] 05:51:59* Test Item Value Reference Range Interpretation [...] 31.9 g/dL 31.2-35.0 RDW-SD (test code = 11336-6) 56.7 fL 38.5-51.6 H RDW-CV (test code = 788-0) 19.4 % 12.1-15.4 H PLT (test code = 777-3) 232 See_Comment [Automated messa ge] The system which generated this result transmitted reference range: 150 - 328 10*3/?L. The reference range was not used to interpret this result as normal/abnormal. MPV (test code = 87803-4) 10.5 fL 9.8-13.0 NRBC/100 WBC (test code = 2855840714) 0.0 See_Comment [Automated [email or web address] ssage] The system which generated this result transmitted reference range: 0.0 - 10.0 /100 WBCs. The reference range was not used to interpret this result as normal/abnormal. NRBC x10^3 (test code = 8464341747) See_Comment [Automated messa ge] The system which generated this result transmitted reference range: 10*3/?L. The reference range was not used to interpret this result as normal/abnormal. GRAN MAT (NEUT) % (test code = 770-8) 68.1 % IMM GRAN % (test code = 1278709933) 0.20 % LYMPH % (test code = 736-9) 20.0 % MONO % (test code = 5905-5) 9.2 % EOS % (test code = 713-8) 1.6 % BASO % (test code = 706-2) 0.9 % GRAN MAT x10^3(ANC) (test code = 2680891592) 3.85 10*3/uL 1.99-6.95 IMM GRAN x10^3 (test code = 3601404092) 0.00-0.06 LYMPH x10^3 (test code = 731-0) 1.13 10*3/uL 1.09-3.23 MONO x10^3 (test code = 742-7) 0.52 10*3/uL 0.36-1.02 EOS x10^3 (test code = 711-2) 0.09 10*3/uL 0.06-0.53 BASO x10^3 (test code = 704-7) 0.05 10*3/uL 0.01-0.09 Lab Interpretation (test code = 22390-7) [facility] [id number] 10:17:00 * Test Item Value Reference Range [...] waivedcomplexity tests. - CTA HEART W CN ART/EBLSUI8200-79-07 00:00:00 [facility] : 1950 Sex: M Name: ALBERT MARQUEZ [facility] Dagmar Jeronimo : 1950 Age/S: 72 / M [address] [place] [address] Blvd Unit #: [id number] Loc: [place] [address] Phys: Brissa Reinoso [facility] Acct: [id number] Dis Date: Status: REG [place] #: [phone] Exam Date: 05/31/2022 1012 FAX #: [phone] Reason: EXAMS: CPT CODE: [id number] CTA HEART W CN ART/GRAFTS 18803 PROCEDURE INFORMATION: Exam: CTA Heart And Coronary [...] 1 Signed Report (CONTINUED) Name: ALBERT MARQUEZ [facility] : 1950 Age/S: 72 / M [address] [place] [address] Unit #: [id number] Loc: [place] [address] Phys: Brissa Reinoso [facility] Acct: [id number] Dis Date: Status: REG CLI PHONE #: [phone] Exam Date: 05/31/2022 1012 FAX #: [phone] Reason: EXAMS: CPT CODE: [id number] CTA HEART W CN ART/GRAFTS 33805 (Continued) mitral annular calcification. PERICARDIUM: No evidence [...] 2 Signed Report (CONTINUED) Name: ALBERT MARQUEZ [facility] : 1950 Age/S: 72 / M [address] [place] [address] Blvd Unit #: [id number] Loc: [place] [address] Phys: Brissa Reinoso [employer] Acct: [id number] Dis Date: Status: REG CLI PHONE #: [phone] Exam Date: 05/31/2022 1012 FAX #: [phone] Reason: EXAMS: CPT CODE: [id number] CTA HEART W CN ART/GRAFTS 41625 (Continued) Small uncomplicated fat containing umbilical hernia. [...] CTA ABD PEL W CONT 2022-05-31 00:00:00 [facility] : 1950 Sex: M Name: ALBERT MARQUEZ [facility] [place] : 1950 Age/S: 72 / M [address] [place] [address] Blvd Unit #: [id number] Loc: [place] [address] Phys: Brissa Reinoso Acct: [id number] Dis Date: Status: MITZY PRUITT #: [phone] Exam Date: 05/31/2022 1012 FAX #: [phone] Reason: 135.0, SEVERE AORTIC STENOSIS. EXAMS: CPT CODE: [id number] CTA ABD PEL W CONT 84030 PROCEDURE INFORMATION: Exam: CTA Heart And Coronary [...] 1 Signed Report (CONTINUED) Name: ALBERT MARQUEZ [facility] : 1950 Age/S: 72 / M [address] [facility] Unit #: [id number] Loc: [place] [address] Phys: Brissa Reinoso [facility] Acct: [id number] D is Date: Status: REG CLI PHONE #: [phone] Exam Date: 05/31/2022 1012 FAX #: [phone] Reason: 135.0, SEVERE AORTIC STENOSIS. EXAMS: CPT CODE: [id number] CTA ABD PEL W CONT 75679 (Continued) mitral annular calcification. PERICARDIUM: No evidence [...] 2 Signed Report (CONTINUED) Name: ALBERT MARQUEZ [facility] Dagmar Jeronimo : 1950 Age/S: 72 / M [address] [place] [address] Bl Unit #: [id number] Loc: [place] [address] Phys: Brissa Reinoso Acct: [id number] Dis Date: Status: REG CLI PHONE #: [phone] Exam Date: 05/31/2022 1012 FAX #: [phone] Reason: 135.0, SEVERE AORTIC STENOSIS. EXAMS: CPT CODE: [id number] CTA ABD PEL W CONT 44081 (Continued) Small uncomplicated fat containing umbilical hernia. [...] RT(R)(CT) CTDI: DLP: Trnscb Date/Time: 05/31/2022 (1723) tMORALES.KS43 Orig Print D/T: S: 05/31/2022 (1724) PAGE 3 Signed Report- CT ANGIO [id number] 00:00:00[facility] : 1950 Sex: M Name: ALBERT MARQUEZ [facility] Dagmar Jeronimo : 1950 Age/S: 72 / M [address] [place] [address] Blvd Unit #: [id number] Loc: [place] [address] Phys: Brissa Reinoso [employer] Acct: [id number] Dis Date: Status: REG CLIPHONE #: [phone] Exam Date: 05/31/2022 1012 FAX #: [phone] Reason: 135.0 , SEVERE AORTICSTENOSIS. EXAMS: CPT CODE: [id number] CT ANGIO CHEST 69351 PROCEDURE INFORMATION: Exam: CTA Heart And Coronary [...] 1 Signed Report (CONTINUED) Name: ALBERT MARQUEZ [facility] : 1950 Age/S: 72 / M [address] [place] [address] Blvd Unit #: [id number] Loc: [place] [address] Phys: Brissa Reinoso [facility] Acct: [id number] Dis Date: Status: REG CLI PHONE #: [phone] Exam Date: 05/31/2022 1012 FAX #: [phone] Reason: 135.0 , SEVERE AORTIC STENOSIS. EXAMS: CPT CODE: [id number] CT ANGIO CHEST 70644 (Continued) mitral annular calcification. PERICARDIUM: No evidence [...] 2 Signed Report (CONTINUED) Name: ALBERT MARQUEZ [facility] : 1950 Age/S: 72 / M [address] [place] [address] Unit #: [id number] Loc: [place] [address] Phys: ChrisstephaniemikaBrissa [employer] SALESPERSON Acct: [id number] Dis Date: Status: REG CLI PHONE #: [phone] Exam Date: 05/31/2022 1012 FAX #: [phone] Reason: 135.0 , SEVERE AORTIC STENOSIS. EXAMS: CPT CODE: [id number] CT ANGIO CHEST 90780 (Continued) Small uncomplicated fat containing umbilical hernia. [...] (1723) tAMARJITRAlbertKS43 Orig Print D/T: S: 05/31/2022 (8944) PAGE 3 Signed ReportGLUCOSE XJBILJF7915-44-52 09:36:00 * Test Item Value Reference Range Interpretation Comme nts GLUCOSE BEDSIDE (test code = GLUBED) 137 MG/DL 70-110 H Performed by cer lisa washroom operator at [facility] BASIC METABOLIC HNRHN8033-00-18 16:24:00* Test Item Value Reference Range Interpretation [...] = CA) 8.9 mg/dL 8.0-10.5 N PROTHROMBIN YMFJ3679-37-05 16:19:00* Test Item Value Reference Range Interpretation [...] Infarction (to prevent recurrent infarct). CBC W/AUTO [id number] 16:09:00* Test Item Value Reference Range Interpretation [...] Notes Date/Time Note Provider Source 2023-08-08 15:06:00 [id number] Nf0tdQ9SBBecRXfvhoFEcc/UzZp2e adnxje/IUA6SJ6i4UchcPmV+jt05324-64-81V21:06:88659 7-[address] [address] PATIENT NAME: ALBERT MARQUEZ ADMIT DATE: 08/08/23ACCOUNT NO: [id number] ROOM NO: AGE: 73 REPORT TYPE: eECHOCARDIOGRAM REPORT SEX: M ADMITTING PHYSICIAN: ATTENDING PHYSICIAN: Michael Orozco DO *[facility]*[address] [place] [address]Ccloo Transthoracic Echocardiogram Patient: Maurisio Marqueztudy Date: 08/08/2023 BP: [id number] 1950 Age: 73 Height: 72 in / 182.9 cmAccession#: [id number] Gender: M Weight: 188.6 lb / 85.7 kgBMI/BSA: 25.6 kg/m 2 / 2.08 m 2 *Ordering Physician: * Michael OrozcoInterpreting Physician: * Osmany Griffith MD*Case Consultant: * Rachael Melo Indications: CAD. Atrial Fibrillation. Study data: Transthoracic echocardiogram. Procedure: Transthoracicechocardiography was performed. Image quality was adequate. Ffgnyafr8N, complete spectral Doppler, and color Doppler. Location: [...] 1.3 cm 0.6 - 1.0 PATIENT NAME: ALBERT MARQUEZ Right ventricle Value 05/11/2022 Ref TAPSE, [...] Value 05/11/2022 Ref PATIENT NAME: ALBERT MARQUEZ LA peak v 0.99 m/sec ----- LA peak grad 4 mm Hg ----- Tricuspid [...] at 1506 PATIENT NAME: ALBERT MARQUEZ :06:0 0L.[id number] for patient ztzrEGADSGNGXTOVPA1801-36-88Z85:06:40 [facility] 2022-06-02 08:57:00 [id number] ZdQY5ETVF6VvY9RBoomh9oY5w8E0i ZDeSrBAIVnLQSd18Yy53Uan9RvY5884-15-23Q44:57:16815 1-[address] [address] patient name: alebrt marquez admit date: 05/31/22account no: [id number] room no: age: 72 report type: pulmonary [...] md wt: pft:gfermin/arianaa/ntsdd: 06/02/2022 08:57:29dt: 06/02/2022 09:52:31conf#: [id number]/did#: [id number] authenticated by dorothy baer md on 06/06/2022 08:17:48 am electronically signed by dorothy baer md on 06/06/22 at 0817 patient name: albert marquez pgll6219-87-79L15:52:00G.AIH63013964-2756UPNzzfkm ble for patient apwzKBDLDKGITQTWDQ0088-94-95K30:18:29 [facility] 2022-05-11 15:06:00 [id number] 5chWz6iqeSrWXLXr4gLhyhQuxst2M 8Di1YydLNJKpPE++7yMsZP8XIFU1797-89-12S14:06:00 [facility] ([facility])clinical notereport#:[id number] report status: signeddate:05/11/22 time: 1506 patient: albert marquez unit #: [id number]#: [id number] room/bed:: 48 age: 72 sex: m attend: chad valadez erin dt: 05/11/22 author: ian coates chemical preparer * all edits or amendments must be made on the electronic/computer document * clinical notenote:72-year-old -bolivian male with past medical history of hypertension, [...] molina md on 05/24/22 at 0953 rpt #:[id number] of reportCLClinical iqmp3671-83-13N57:06:00G.JZZG31401030-2092YOBishu able for patient nslkIEUMOMLRQNGKHJ2116-33-31Z04:53:35 [facility] 2022-05-11 15:06:00 [id number] ItvevM28Lz7Y6FOgL4oqGbdr3Dab1 PfxEx8imxb7QDylEAh8hlEhKwqWq3LpS0606-80-72O60:06: 00 [facility] ([facility])Clinical NoteREPORT#:[id number] REPORT STATUS: SignedDATE:05/11/22 TIME: 1506 PATIENT: ALBERT MARQUEZ UNIT #: [id number]#: [id number] ROOM/BED:: 48 AGE: 72 SEX: M ATTEND: Chad Valadez [facility] AUTHOR: Ian Coates NP * ALL edits or amendments must be made on the electronic/computer document * Clinical NoteNote:72-year-old -Lao male with past medical history of hypertension, [...] does not wantto wait. at 1522 RPT #:[id number] OF REPORTCLClinical xobp4828-53-78I60:06:00G.[id number] able for patient twxxUHLXKFWFJYCZOY5579-56-48A24:23:17 HCACL"
--- NOTE | 2024-01-30 09:22 | RAD REPORT ---
EXAM DESCRIPTION: Mary Single View01/30/2024 9:11 am CLINICAL HISTORY: Hypotension COMPARISON: January 09, 2024 FINDINGS: The lungs appear clear of acute infiltrate. The heart is borderline enlarged IMPRESSION: No acute abnormalities displayed
[2024-01-30 09:25] LABS: Absolute Basophils 0.1 K/uL (0-0.5); Absolute Neutrophil 7.1 K/uL (1.8-8.0); MCV 84.5 fL (80-100); MPV 8.3 fL (7.6-11.3); Nucleated Red Blood Cells % 0.1 % (0-0)
[2024-01-30 09:30] LABS: PT Prothrombin Time 12.5 SECONDS (9.5-12.5); PTT, Activated Partial Thromb 41.3 SECONDS (24.3-36.9); Protime INR 1.14
[2024-01-30 10:04] LABS: Absolute Eosinophils 0.9 K/uL (0-0.5); Absolute Monocytes 0.8 K/uL (0.1-1.3); Basophils % 0.9 % (0-1.3); Hematocrit 48.9 % (39.6-49.0); Hemoglobin 15.4 g/dL (13.6-17.9); Lymphocytes % 10.5 % (15.3-44.8); MCH 26.5 pg (27.0-35.0); MCHC 31.4 g/dL (32.0-36.0); Monocytes % 7.6 % (3.3-12.3); Platelets 408 thou/uL (152-406); RBC Red Blood Cell Count 5.79 M/uL (4.33-5.43); Red Cell Distribution Width 17.9 % (12.1-15.2)
[2024-01-30 10:24] LABS: Albumin/Globulin Ratio 0.4 (1.1-1.8); Anion Gap 10.6 mEq/L (5.0-15.0); Bilirubin Total 0.4 mg/dL (0.2-1.0); Globulin 6.8 g/dL (2.3-3.5); Potassium 5.6 mEq/L (3.5-5.1); Protein, Total 9.8 g/dL (6.4-8.2)
[2024-01-30 10:26] LABS: Troponin High Sensitivity 63.1 pg/mL (<58.9)
[2024-01-30 12:35] LABS: Specific Gravity 1.017 (1.005-1.030); Sqamous Epithelial <5 /HPF (None Seen); Urine Bacteria None Seen /HPF (<20); Urine Bilirubin NEGATIVE (Negative); Urine Blood Negative (Negative); Urine Clarity Clear (Clear); Urine Color Light-Yellow (Yellow); Urine Culture Reflex Order NOT NEEDED; Urine Glucose 4+ (Over) (Negative); Urine Ketones NEGATIVE (Negative); Urine Microscopic Reflex YN ORDER UMIC; Urine Mucus Slight /HPF (None Seen); Urine Nitrite NEGATIVE (Negative); Urine Protein 2+ (Negative); Urine RBC <5 /HPF (None Seen); Urine Urobilinogen Normal (Normal); Urine WBC <5 /HPF (<5); Urine Yeast (Budding) Trace /HPF (None Seen); Urine pH 5.5 (5.0-7.0)
--- NOTE | 2024-01-30 12:54 | EDPHYS ---
Physician Documentation [facility] Name: Julianna Kearns Age: 73 yrs Sex: Male : 1950 Arrival Date: 01/30/2024 Time: 08:36 Bed 7 Private MD: ED Physician Edouard Farley HPI: 01/29 08:46 This 73 yrs old Black Male presents to ER via Unassigned with complaints of low blood rn pressure. 08:46 EMS reports called out to the house, patient was slumped over in chair with rn hypotension, blood pressure was 80s systolic. No intervention by EMS and blood pressure improved. No syncope. Patient reports woke up feeling fine, went to go get coffee and felt lightheaded. Denies chest pain or shortness of breath. Patient does report recently admitted for similar problem last week. Denies changes in lower extremity wounds. Onset: The symptoms/episode began/occurred just prior to arrival. Severity of symptoms: At their worst the symptoms were moderate in the emergency department the symptoms have improved. The patient has experienced a previous episode. The patient has not recently seen a physician. Historical: - Allergies: 08:46 PENICILLINS; ld1 - PMHx: 08:46 Atrial Fib; caridac stent; CHF; Diabetes - NIDDM; Hypercholesterolemia; Hypertension; ld1 - PSHx: 08:46 cardiac stent; ld1 - Immunization history:: Adult Immunizations up to date. - Infectious Disease History:: Denies. - Social history:: Smoking status: Patient denies any tobacco usage or history of. Patient/guardian denies using alcohol. - Family history:: not pertinent. - Hospitalizations: : No recent hospitalization is reported. ROS: 08:46 Constitutional: Negative for fever, chills, and weight loss, Cardiovascular: Negative rn for chest pain, palpitations, and edema, Respiratory: Negative for shortness of breath, cough, wheezing, and pleuritic chest pain, Abdomen/GI: Negative for abdominal pain, nausea, vomiting, diarrhea, and constipation, MS/Extremity: Negative for injury and deformity, Skin: Positive for chronic wounds bilateral lower extremities Neuro: Positive for generalized weakness and malaise Exam: 08:46 Constitutional: This is a well developed, well nourished patient who is awake, alert, rn and in no acute distress. Head/Face: Normocephalic, atraumatic. ENT: Dry mucous membranes Cardiovascular: Regular rate, irregular rhythm. No pulse deficits. Respiratory: No increased work of breathing, no retractions or nasal flaring. Abdomen/GI: Soft, nontender MS/ Extremity: No cyanosis. Equal circumference. 1+ edema bilateral lower extremities. Chronic wounds to lower extremities that do not appear infected Neuro: Awake and alert, GCS 15, oriented to person, place, time, and situation. Cranial nerves II-XII grossly intact. Motor strength 4/5 in all extremities. Sensory grossly intact. 10:26 ECG was reviewed by the Attending Physician. rn Vital Signs: 08:45 BP 154 / 87; Pulse 89; Resp 18; Temp 97.8(TE); Pulse Ox 96% on R/A; Weight 82.1 kg; ld1 Height 5 ft. 11 in. ; Pain 0/10; 09:40 Pulse 86; Resp 18; Pulse Ox 97% on R/A; ld1 11:01 Pulse 98; Resp 18; Pulse Ox 96% on R/A; ld1 13:00 BP 172 / 77; Pulse 104; Resp 16; Pulse Ox 99% on R/A; me1 14:00 BP 167 / 74; Pulse 99; Resp 16; Pulse Ox 99% on R/A; me1 08:45 Body Mass Index 25.24 (82.10 kg, 180.34 cm) ld1 08:45 Pain Scale: Adult ld1 MDM: 08:42 Patient medically screened. rn 12:52 Differential Diagnosis Hypotension, dehydration, acute on chronic renal failure, lead burner helper side effect, infection. Data reviewed: vital signs, nurses notes, lab test result(s), EKG, radiologic studies, plain films, and as a result, I will admit patient. Consideration of Admission/Observation Patient was admitted/placed on observation. Escalation of care including admission/observation considered. Counseling: I had a detailed discussion with the patient and/or guardian regarding the historical points, exam findings, and any diagnostic results supporting the discharge/admit diagnosis, lab results, radiology results, the need for further work-up and treatment in the hospital. Response to treatment: the patient's symptoms have mildly improved after treatment, and as a result, I will admit patient. ED course: Patient with elevated BNP and troponin, likely secondary to CHF. Elevated lactic acid, no source of infection identified. Patient does not meet severe sepsis criteria. Repeat lactic acid improved. No indications for antibiotics at this time. Mild elevation of potassium as well as creatinine. Admitted to hospitalist service for further care. Patient feels better and blood pressure has improved as well as lactic acid trending in right direction. 01/29 08:43 Order name: Blood Culture Adult (2) rn 01/29 08:43 Order name: CBC with Diff; Complete Time: 10:26 rn 01/29 08:43 Order name: CMP; Complete Time: 10:54 rn 01/29 08:43 Order name: Lactate w/ 2H reflex if indic.; Complete Time: 10: rn 01/29 08:43 Order name: Protime (+inr); Complete Time: 09:33 rn 01/29 08:43 Order name: Ptt, Activated; Complete Time: 09:33 rn 01/29 08:43 Order name: Urinalysis w/ reflexes; Complete Time: 12:42 rn 01/29 08:43 Order name: BNP; Complete Time: 10:54 rn 01/29 08:44 Order name: Troponin High Sensitivity; Complete Time: 10:54 rn 01/29 09:41 Order name: Lactate w/ 2H reflex if indic.; Complete Time: 12:49 ld1 01/29 08:43 Order name: Chest Single View XRAY; Complete Time: 09:33 rn 01/29 13:22 Order name: CONS Physician Consult EDMS 01/29 08:43 Order name: Accucheck; Complete Time: 09: rn 01/29 08:43 Order name: Cardiac monitoring; Complete Time: 09: rn 01/29 08:43 Order name: EKG - Nurse/Tech; Complete Time: 09: rn 01/29 08:43 Order name: IV Saline Lock - Large Bore; Complete Time: 09: rn 01/29 08:43 Order name: Labs collected and sent; Complete Time: 09: rn 01/29 08:43 Order name: O2 Per Protocol; Complete Time: 08:45 rn 01/29 08:43 Order name: O2 Sat Monitoring; Complete Time: 08:45 rn 01/29 08:43 Order name: Vital Signs; Complete Time: 08:45 rn 01/29 09:32 Order name: Labs - recollect needed: recollect green and lavender; Complete Time: 09:55 bd EC:26 Rate is 86 beats/min. Rhythm is regular. QRS [place] is Normal. OR interval is normal. QRS rn interval is normal. No Q waves. T waves are Normal. No ST changes noted. Clinical impression: NSR w/ Non-specific ST/T Changes. Interpreted by me. Reviewed by me. Administered Medications: No medications were administered Disposition Summary: 01/30/24 12:54 Hospitalization Ordered Notes: Hospitalization Status: Observation rn Provider: Joel Garrett rn Condition: Stable rn Problem: new rn Symptoms: have improved rn Bed/Room Type: Standard rn Location: Telemetry/MedSurg (observation)(01/30/24 15:26) bd Room Assignment: 224(01/30/24 15:26) bd Diagnosis - Hypotension, unspecified rn - Unspecified combined systolic (congestive) and diastolic (congestive) heart failure rn - Hyperkalemia rn - Dehydration rn Forms: - Medication Reconciliation Form rn - SBAR form rn - Leadership Thank You Letter rn Signatures: Dispatcher [employer] EDAK Destinee Sy Edouard Farley MD MD rn Sims, Lauren, RN RN ld1 Corrections: (The following items were deleted from the chart) 08:44 08:44 BLOOD CULTURE*+BA.LAB.BRZ ordered. EDAK EDMS 08:44 08:44 CBC+H.LAB.BRZ ordered. EDAK EDMS 08:44 08:44 COMPREHENSIVE METABOLIC PANEL+C.LAB.BRZ ordered. EDAK EDMS 08:44 08:44 LACTATE+C.LAB.BRZ ordered. EDAK EDMS 08:44 08:44 PROTIME (+INR)+COAG.LAB.BRZ ordered. EDAK EDMS 08:44 08:44 PTT, ACTIVATED+COAG.LAB.BRZ ordered. EDAK EDMS 08:44 08:44 Urinalysis+U.LAB.BRZ ordered. EDAK EDMS 08:44 08:44 PROBNP+C.LAB.BRZ ordered. EDAK EDMS 08:44 08:44 Chest Single View+RAD.RAD.BRZ ordered. EDAK EDMS 08:44 08:44 Troponin High Sensitivity+C.LAB.BRZ ordered. EDAK EDAK 13:52 12:54 Telemetry/MedSurg (observation) rn bd 13:52 12:54 rn bd 15: 13:52 BR ER HOLD bd bd 15 13:52 ERHOLD- bd bd
--- NOTE | 2024-01-30 12:54 | ER ---
Nurse's Notes [facility] Name: Julianna Kearns Age: 73 yrs Sex: Male : 1950 Arrival Date: 01/30/2024 Time: 08:36 Bed 7 Private MD: Diagnosis: Hypotension, unspecified;Unspecified combined systolic (congestive) and diastolic (congestive) heart failure;Hyperkalemia;Dehydration Presentation: 01/29 08:45 Chief complaint: EMS states: Toned out to patient home for low BP. Upon arrival to ER ld1 pt BP 154/87. Coronavirus screen: At this time, the client does not indicate any symptoms associated with coronavirus-19. Ebola Screen: No symptoms or risks identified at this time. Initial Sepsis Screen: Does the patient meet any 2 criteria? No. Patient's initial sepsis screen is negative. Does the patient have a suspected source of infection? No. Patient's initial sepsis screen is negative. Risk Assessment: Do you want to hurt yourself or someone else? Patient reports no desire to harm self or others. Onset of symptoms was January 30, 2024. 08:45 Method Of Arrival: EMS: [facility] ld1 08:45 Acuity: VERONICA 3 ld1 Triage Assessment: 08:46 General: Appears in no apparent distress. comfortable, Behavior is calm, cooperative, ld1 appropriate for age. Pain: Denies pain. EENT: No signs and/or symptoms were reported regarding the EENT system. Neuro: Level of Consciousness is awake, alert, obeys commands, Oriented to person, place, time, situation, Appropriate for age. Cardiovascular: Capillary refill < 3 seconds Patient's skin is warm and dry. Respiratory: Airway is patent Respiratory effort is even, unlabored. GI: Abdomen is round non-distended. : No signs and/or symptoms were reported regarding the genitourinary system. Derm: No signs and/or symptoms reported regarding the dermatologic system. Musculoskeletal: No signs and/or symptoms reported regarding the musculoskeletal system. Historical: - Allergies: 08:46 PENICILLINS; ld1 - PMHx: 08:46 Atrial Fib; caridac stent; CHF; Diabetes - NIDDM; Hypercholesterolemia; Hypertension; ld1 - PSHx: 08:46 cardiac stent; ld1 - Immunization history:: Adult Immunizations up to date. - Infectious Disease History:: Denies. - Social history:: Smoking status: Patient denies any tobacco usage or history of. Patient/guardian denies using alcohol. - Family history:: not pertinent. - Hospitalizations: : No recent hospitalization is reported. Screenin:47 [facility] ED Fall Risk Assessment (Adult) History of falling in the last 3 months, ld1 including since admission No falls in past 3 months (0 pts). Abuse screen: Denies threats or abuse. Denies injuries from another. Nutritional screening: No deficits noted. Tuberculosis screening: No symptoms or risk factors identified. Assessment: 08:47 Reassessment: See triage assessment. ld1 Vital Signs: 08:45 BP 154 / 87; Pulse 89; Resp 18; Temp 97.8(TE); Pulse Ox 96% on R/A; Weight 82.1 kg; ld1 Height 5 ft. 11 in. ; Pain 0/10; 09:40 Pulse 86; Resp 18; Pulse Ox 97% on R/A; ld1 11:01 Pulse 98; Resp 18; Pulse Ox 96% on R/A; ld1 13:00 BP 172 / 77; Pulse 104; Resp 16; Pulse Ox 99% on R/A; me1 14:00 BP 167 / 74; Pulse 99; Resp 16; Pulse Ox 99% on R/A; me1 08:45 Body Mass Index 25.24 (82.10 kg, 180.34 cm) ld1 08:45 Pain Scale: Adult ld1 ED Course: 08:42 Patient arrived in ED. rn 08:42 Edouard Farley MD is Attending Physician. rn 08:46 Triage completed. ld1 08:46 Arm band placed on right wrist. ld1 08:47 Patient has correct armband on for positive identification. Placed in gown. Bed in low ld1 position. Call light in reach. Side rails up X2. nuclear monitoring technician on. Pulse ox on. NIBP on. Door closed. Noise minimized. Warm blanket given. 08:47 No provider procedures requiring assistance completed. Missed attempt(s): 20 gauge in ld1 right antecubital area. 09:01 Margarita aWde, RN is Primary Nurse. ld1 09:01 Blood Culture Adult (2) Sent. ld1 09:01 Lactate w/ 2H reflex if indic. Sent. ld1 09:13 Chest Single View XRAY In Process Unspecified. EDMS 12:53 Joel Garrett MD is Hospitalizing Provider. rn 16:16 IV discontinued, intact, bleeding controlled, No redness/swelling at site. Pressure me1 dressing applied. 16:17 Provided Education on: POC. Verbalized understanding. . me1 Administered Medications: No medications were administered Medication: 08:47 VIS not applicable for this client. ld1 Outcome: 12:54 Decision to Hospitalize by Provider. rn 16:17 Condition: stable me1 16:17 Admitted to Med/surg accompanied by tech, via stretcher, room 224, with chart, Report me1 called to faxed to second floor. 16:17 Instructed on the need for admit, 16:18 Patient left the ED. me1 Signatures: Dispatcher [employer] EDMS Edouard Farley MD MD rn Sims, Lauren, RN RN ld1 Hayley Jacobo RN RN me1
--- NOTE | 2024-01-30 13:02 | P.HP ---
Patient History Date of Service: 01/30/24 Allergies Penicillins Adverse Reaction (Verified 01/24/23 22:00) Hives Home Medications: Apixaban [Eliquis *] 2.5 mg PO BID #60 tab 01/29/23 Aspirin Chewable [Aspirin Chewable*] 81 mg PO DAILY tab.chew 01/29/23 Atorvastatin Calcium [Lipitor] 40 mg PO BEDTIME #30 tab 01/29/23 Ensure High Protein 273 ml PO TID #90 can 03/18/23 Benzonatate [Tessalon Perle*] 100 mg PO TID 04/22/23 Mupirocin Oint [Bactroban 2% Ointment*] 1 appl TOP DAILY #1 tube 04/25/23 Cefpodoxime Proxetil [Vantin] 200 mg PO DAILY #5 tab 01/12/24 Doxycycline Hyclate 100 mg PO BID #10 cap 01/12/24 Famotidine [Pepcid*] 20 mg PO BEDTIME tab 01/12/24 Hydralazine [Apresoline*] 100 mg PO TID tab 01/12/24 carvediloL [Coreg*] 25 mg PO BIDWM tab 01/12/24 - Past Medical/Surgical History Diabetic: Yes -: hypertension -: hyperlipidemia -: Atrial fibrillation -: IDDM -: Coronary artery disease -: Aortic stenosis -: CHF -: Cardiac Catheterization with stent placement -: Right leg surgery Psychosocial/ Personal History: Patient is . - Family History Brother -: Heart disease, Hypertension - Social History Alcohol use: No CD- Drugs: No Caffeine use: Yes Physical Examination - Studies Laboratory Data (last 24 hrs) 01/30/24 01/30/24 01/30/24 09:55 09:55 09:10 WBC 9.90 Hgb 15.4 Hct 48.9 Plt Count 408 H PT 12.5 INR 1.14 APTT 41.3 H Sodium 132 L Potassium 5.6 H BUN 51 H Creatinine 2.88 H Glucose 187 H Total Bilirubin 0.4 AST 14 L ALT 17 Alkaline Phosphatase 84 Assessment and Plan - Advance Directives Does patient have a Living Will: No Does patient have a Durable POA for Healthcare: No
--- NOTE | 2024-01-30 13:11 | P.HP ---
Certification for Inpatient Patient admitted to: Inpatient Practitioner: I am a practitioner with admitting privileges, knowledge of patient current condition, hospital course, and medical plan of care. Services: Services provided to patient in accordance with Admission requirements found in Title 42 Section 412.3 of the Code of Federal Regulations Patient History Date of Service: 01/30/24 Reason for admission: Hypotension, History of Present Illness: 73-year-old black male with past medical history dementia, Atrial Fib; caridac stent; CHF; Diabetes - NIDDM; Hypercholesterolemia; Hypertension presented to the emergency room with decreased responsiveness. HPI reports patient was slumped in chair. Systolic blood pressure in the 80s, patient reports associated lightheadedness, no reported shortness of breath or chest pain. Symptoms began prior to arrival. He reports similar episodes. Blood pressure stable on arrival to the ER 5 BP 154 / 87; Pulse 89; Resp 18; Temp 97.8(TE); Pulse Ox 96% on R/A; Weight 82.1 kg; Height 5 ft. 11 in laboratory evaluation lactic acidosis, lactic 2.1, hyperkalemia potassium 5.6, CKD with KAITLIN, elevated creatinine 2.88 BUN 51, elevated troponin 63.1, elevated BNP 1856, chest x-ray FINDINGS: The lungs appear clear of acute infiltrate. The heart is borderline enlarged IMPRESSION: No acute abnormalities displayed plan to admit for acute on chronic heart failure, elevated troponin, hypotension, acute kidney injury with CKD, hyperkalemia plan to admit for acute on chronic heart failure, NSTEMI, elevated troponin, acute kidney injury, CKD, hypotension, Allergies Penicillins Adverse Reaction (Verified 01/24/23 22:00) Hives Home Medications: Apixaban [Eliquis *] 2.5 mg PO BID #60 tab 01/29/23 Aspirin Chewable [Aspirin Chewable*] 81 mg PO DAILY tab.chew 01/29/23 Atorvastatin Calcium [Lipitor] 40 mg PO BEDTIME #30 tab 01/29/23 Ensure High Protein 273 ml PO TID #90 can 03/18/23 Benzonatate [Tessalon Perle*] 100 mg PO TID 04/22/23 Mupirocin Oint [Bactroban 2% Ointment*] 1 appl TOP DAILY #1 tube 04/25/23 Cefpodoxime Proxetil [Vantin] 200 mg PO DAILY #5 tab 01/12/24 Doxycycline Hyclate 100 mg PO BID #10 cap 01/12/24 Famotidine [Pepcid*] 20 mg PO BEDTIME tab 01/12/24 Hydralazine [Apresoline*] 100 mg PO TID tab 01/12/24 carvediloL [Coreg*] 25 mg PO BIDWM tab 01/12/24 - Past Medical/Surgical History Diabetic: Yes -: hypertension -: hyperlipidemia -: Atrial fibrillation -: IDDM -: Coronary artery disease -: Aortic stenosis -: CHF -: Cardiac Catheterization with stent placement -: Right leg surgery Psychosocial/ Personal History: Patient is . - Family History Brother -: Heart disease, Hypertension - Social History Alcohol use: No CD- Drugs: No Caffeine use: Yes Review of Systems Per HPI Physical Examination - Physical Exam General: Alert, In no apparent distress, Oriented x3 HEENT: Atraumatic, Normocephalic Neck: Supple, JVD not distended Respiratory: Normal air movement, Crackles/rales Cardiovascular: Normal pulses, Regular rate/rhythm Capillary refill: <2 Seconds Gastrointestinal: Normal bowel sounds, Soft and benign Musculoskeletal: Other (Generalized weakness) Integumentary: No erythema, No warmth, Other (Dry skin) Neurological: Normal speech, Normal strength at 5/5 x4 extr - Studies Laboratory Data (last 24 hrs) 01/30/24 01/30/24 01/30/24 09:55 09:55 09:10 WBC 9.90 Hgb 15.4 Hct 48.9 Plt Count 408 H PT 12.5 INR 1.14 APTT 41.3 H Sodium 132 L Potassium 5.6 H BUN 51 H Creatinine 2.88 H Glucose 187 H Total Bilirubin 0.4 AST 14 L ALT 17 Alkaline Phosphatase 84 Assessment and Plan - Plan Assessment plan Acute on chronic heart failure Elevated troponin A-fib RVR Hypotension Cardiology consult, telemetry Trend troponin, trend BNP evated troponin 63.1, elevated BNP 1856, chest x-ray FINDINGS: The lungs appear clear of acute infiltrate. The heart is borderline enlarged IMPRESSION: No acute abnormalities displayed EKG 86 beats/min. Rhythm is regular. QRS [place] is Normal. [place] interval is normal. QRS rn interval is normal. No Q waves. T waves abnormality. No ST changes noted. Clinical impression: NSR w/ Non-specific ST/T Changes Lactic acidosis Trend lactic acidosis, lactic 2.1 repeat 1.7 Hyperkalemia amp of bicarb x 1 Amp D50 x 1, with 10 units of insulin Neph consulted Acute kidney injury unknown baseline Avoid nephrotoxic's, hyperkalemia potassium 5.6 elevated creatinine 2.88 BUN 51 Nephrology consult dementia CAD with history of PCI caridac stent Diabetes - NIDDM; Sliding scale insulin, Accu-Cheks Code full code DVT heparin subcu Diet cardiac Disposition Home independent prior Discharge Plan: Home - Advance Directives Does patient have a Living Will: No Does patient have a Durable POA for Healthcare: No - Code Status/Comfort Care Code Status: Full Code Critical Care: No Time Spent Managing Pts Care (In Minutes): 55
[2024-01-30] MEDS ORDERED: ACETAMINOPHEN 500 MG TAB PO PRN (13:20)
[2024-01-30] MEDS ORDERED: ONDANSETRON 4 MG/2 ML VIAL IV PRN (13:20)
[2024-01-30 15:44] VITALS: BMI 24.4
[2024-01-30] MEDS ORDERED: GLUCAGON 1 MG/VIAL IM PRN (16:13)
[2024-01-30] MEDS ORDERED: D10W 250 ML BAG IV PRN (16:21)
[2024-01-30] MEDS: HEPARIN 5000 UNIT/ML 1 ML VIAL SQ SCH (16:46)
[2024-01-30] MEDS: INSULIN REGULAR (HUMAN) 100 UNIT/ML IV ONE (16:50)
[2024-01-30] MEDS: D10W 250 ML BAG IV ONE (16:50)
[2024-01-30] MEDS: SODIUM BICARB 50 MEQ/50ML VIAL IV ONE (16:50)
[2024-01-30] MEDS: INSULIN REGULAR (HUMAN) 100 UNIT/ML SQ SCH (18:11)
--- NOTE | 2024-01-30 19:27 | CON ---
Date of Consultation: 01/30/2024 Reason For Consultation: Hypotension and history of heart failure. History Of Present Illness: A 73-year-old male, history of dementia, atrial fibrillation, coronary a rtery disease, CHF, diabetes, aortic valve stenosis, dyslipidemia, and hypertension, presented to [facility] room with decreased level of consciousness. Systolic blood pressure was in the low 80s and he was lightheaded. Denies having any chest pain or shortness of breath. Upon evaluation in the [facility] room, his vitals were better, heart rate is normal and blood pressure is normal and the patient wants to go home, has no symptoms. Past Medical History: As outlined above in the HPI. Medications: Refer to reconciliation sheet for detailed list. Allergies: PENICILLIN. Family History: No premature coronary artery disease or cancer. Social History: Does not smoke or drink. Does not use any drugs. Review of Systems: All systems reviewed and they were negative except as mentioned in the HPI. Physical Examination: Vital Signs: Reviewed. Head and Neck: Pupils are equal, reactive to light. Intact eye movements. No JVD. No cervical lym phadenopathy. Neck is supple. Thyroid is not enlarged. Lungs: Clear to auscultation bilaterally. No rhonchi, wheezing, or crackles. No accessory muscle u se. Heart: Irregular. No extra sounds. Abdomen: Soft, nontender. Bowel sounds positive. No organomegaly. No masses or hernia. No rigidi ty or rebound. Extremities: No edema, clubbing, cyanosis. Intact pulses. Skin: No rash or nodule. Neurologic: Alert, awake, oriented x3. No acute focal deficits appreciated. Lymph Nodes: No cervical or axillary lymphadenopathy. Investigations: His urinalysis is negative. Hemoglobin is 15.4 and his BUN is 51, creatinine 2.88, and troponin 63 and his creatinine is higher than his baseline. Assessment/recommendation: 1.Hypertension, is probably over-diuresis. The blood pressure is back up. Recommend to decrease th e dose of diuretics slightly and monitor. If continues to be stable, then he can be released to [facility] up as an outpatient. 2.Congestive heart failure. He appears to be euvolemic. Continue current therapy. 3.Coronary artery disease. No chest pain. Continue current therapy. SR/MODL Voice ID: [id number] Report ID: [id number]
--- NOTE | 2024-01-31 06:26 | P.PN ---
Subjective Date of Service: 01/31/24 Chief Complaint: Hypotension, No reported chest pain overnight, confused overnight O2 room air 94% - Physical Exam General: Alert, In no apparent distress, Oriented x3 HEENT: Atraumatic, Normocephalic Neck: Supple, JVD not distended Respiratory: Normal air movement, Crackles/rales Cardiovascular: Normal pulses, Regular rate/rhythm Capillary refill: <2 Seconds Gastrointestinal: Normal bowel sounds, Soft and benign Musculoskeletal: Other (Generalized weakness) Integumentary: No erythema, No warmth, Other (Dry skin) Neurological: Normal speech, Normal strength at 5/5 x4 extr Review of Systems per HPI Physical Examination - Vital Signs Temperature: 97.1 F Blood Pressure: 151/70 Pulse: 95 Respirations: 18 Pulse Ox (%): 94 - Studies Laboratory Data (last 24 hrs) 01/30/24 01/30/24 01/30/24 09:55 09:55 09:10 WBC 9.90 Hgb 15.4 Hct 48.9 Plt Count 408 H PT 12.5 INR 1.14 APTT 41.3 H Sodium 132 L Potassium 5.6 H BUN 51 H Creatinine 2.88 H Glucose 187 H Total Bilirubin 0.4 AST 14 L ALT 17 Alkaline Phosphatase 84 Assessment And Plan - Plan Assessment plan Acute on chronic heart failure Elevated troponin A-fib RVR Hypotension Cardiology consult, telemetry Trend troponin, trend BNP evated troponin 63.1, 82.8 elevated BNP 1856, chest x-ray FINDINGS: The lungs appear clear of acute infiltrate. The heart is borderline enlarged IMPRESSION: No acute abnormalities displayed EKG 86 beats/min. Rhythm is regular. QRS [place] is Normal. [place] interval is normal. QRS rn interval is normal. No Q waves. T waves abnormality. No ST changes noted. Clinical impression: NSR w/ Non-specific ST/T Changes Lactic acidosis Trend lactic acidosis, lactic 2.1 repeat 1.7 Hyperkalemia amp of bicarb x 1 Amp D50 x 1, with 10 units of insulin Neph consulted Acute kidney injury unknown baseline Avoid nephrotoxic's, hyperkalemia potassium 5.6 elevated creatinine 2.88 BUN 51 Nephrology consult dementia CAD with history of PCI caridac stent Diabetes - NIDDM; Sliding scale insulin, Accu-Cheks Code full code DVT heparin subcu Diet cardiac Disposition Home independent prior Discharge Plan: Home - Code Status/Comfort Care Code Status: Full Code Critical Care: No Time Spent Managing PTS Care (In Minutes): 35
[2024-01-31 09:45] VITALS: O2SAT 94
--- NOTE | 2024-01-31 11:03 | P.PN ---
Subjective Date of Service: 01/31/24 Chief Complaint: Hypotension, Subjective: No new changes Review of Systems 10-point ROS is otherwise unremarkable Physical Examination - Vital Signs Temperature: 97.5 F Blood Pressure: 157/83 Pulse: 91 Respirations: 15 Pulse Ox (%): 94 - Physical Exam General: Alert, Oriented x3 HEENT: Atraumatic Neck: Supple Respiratory: Clear to auscultation bilaterally Cardiovascular: Normal S1 S2, Edema Gastrointestinal: Normal bowel sounds - Studies Microbiology Data (last 24 hrs): 01/30/24 09:10 Blood - Blood Anaerobic Blood Culture - Final 01/30/24 12:13 Blood - Blood Anaerobic Blood Culture - Final Assessment And Plan - Current Problems (Diagnosis) (1) CHF (congestive heart failure) Current Visit: No Status: Acute Plan: Patient looks euvolemic on exam Continue Coreg 25 mg po BID Continue Hydralazine 100 mg po BID Continue home Bumex of 2 mg daily D/C Metoprolol Qualifiers: (2) Afib Current Visit: No Status: Chronic Plan: Continue Eliquis and Coreg. Qualifiers: (3) Coronary artery disease Current Visit: No Status: Chronic Plan: stable, troponin negative Continue medication as above Continue Lipitor. Qualifiers:
--- NOTE | 2024-01-31 13:11 | EKG ---
Test Date: 2024-01-30 Test Time: 08:57:26 Drug Counselor: Jim DAVIS MEASUREMENT RESULTS: Intervals: Rate: 86 NH: 126 QRSD: 86 QT: 388 QTc: 464 [place]: P: NH: 126 QRS: -18 T: 110 INTERPRETIVE STATEMENTS: Normal sinus rhythm T wave abnormality, consider lateral ischemia Prolonged QT Abnormal ECG Compared to ECG 01/09/2024 13:55:33 T-wave abnormality now present Possible ischemia now present Electronically Signed On 01-31-24 13:06:33 CDT by Chad Alvarez
[2024-01-31 13:31] VITALS: BP 156/77; TEMP 97.4
--- NOTE | 2024-01-31 14:26 | P.DS ---
Admission Date: 01/30/24 Discharge Date: 02/01/24 Disposition: DC HOME/HOME HEALTH CARE Discharge Condition: GOOD Reason for Admission: Hypotension, Brief History of Present Illness: 73-year-old black male with past medical history dementia, Atrial Fib; caridac stent; CHF; Diabetes - NIDDM; Hypercholesterolemia; Hypertension presented to the emergency room with decreased responsiveness. HPI reports patient was slumped in chair. Systolic blood pressure in the 80s, patient reports associated lightheadedness, no reported shortness of breath or chest pain. Symptoms began prior to arrival. He reports similar episodes. Blood pressure stable on arrival to the ER 5 BP 154 / 87; Pulse 89; Resp 18; Temp 97.8(TE); Pulse Ox 96% on R/A; Weight 82.1 kg; Height 5 ft. 11 in laboratory evaluation lactic acidosis, lactic 2.1, hyperkalemia potassium 5.6, CKD with KAITLIN, elevated creatinine 2.88 BUN 51, elevated troponin 63.1, elevated BNP 1856, chest x-ray FINDINGS: The lungs appear clear of acute infiltrate. The heart is borderline en larged IMPRESSION: No acute abnormalities displayed plan to admit for acute on chronic heart failure, elevated troponin, hypotension, acute kidney injury with CKD, hyperkalemia plan to admit for acute on chronic heart failure, NSTEMI, elevated troponin, acute kidney injury, CKD, hypotension, - Physical Exam General: Alert, In no apparent distress, Oriented x3 HEENT: Atraumatic, Normocephalic Neck: Supple, JVD not distended Respiratory: Normal air movement, Crackles/rales Cardiovascular: Normal pulses, Regular rate/rhythm Capillary refill: <2 Seconds Gastrointestinal: Normal bowel sounds, Soft and benign Musculoskeletal: Other (Generalized weakness) Integumentary: No erythema, No warmth, Other (Dry skin) Neurological: Normal speech, Normal strength at 5/5 x4 extr Hospital Course: 73-year-old black male with past medical history dementia, Atrial Fib; caridac stent; CHF; Diabetes - NIDDM; Hypercholesterolemia; Hypertension presented to the emergency room with decreased responsiveness. Was more responsive in the emergency room. Was noted to have hypotensive, shortness of breath, Was noted to have acute on chronic heart failure, A-fib. Hyperkalemia. Dementia. He was evaluated by cardiology. Condition improved with diuretics. Oxygen, antihypertensives were adjusted by cardiology Patient tolerating diet, stable for discharge to home with follow-up appointment with primary care physician. Follow-up with cardiology after discharge PROBLEM: Hypotension-hypertensive medications were adjusted by [id number] with cardiology after discharge Shortness of breath-diuretics administered for acute heart failure Atrial fibrillation continue Coreg and Eliquis per cardiology Lactic acidosis-blood cultures were negative Dementia, fall precaution Rad/Lab/Micro: Serial troponins negative chest x-ray FINDINGS: The lungs appear clear of acute infiltrate. The heart is borderline enlarged IMPRESSION: No acute abnormalities displayed EKG 86 beats/min. Rhythm is regular. QRS [place] is Normal. [place] interval is normal. QRS rn interval is normal. No Q waves. T waves abnormality. No ST changes noted. Clinical impression: NSR w/ Non-specific ST/T Changes Follow-up with cardiology after discharge Continue home medicines as previously prescribed GOAL: Clear understanding of disease process INSTRUCTIONS: Physician Discharge Instructions: -Follow-up with PCP in 1 to 2 weeks -Please call Dr. Garrett at [phone] if any questions regarding hospital stay -Please call nursing station at [phone] if any nursing or medication questions -Return to the emergency room if symptoms worsen Diet: ADA, low sodium Activity: Fall precautions Vital Signs/Physical Exam: Temp Pulse Resp BP Pulse Ox 97.4 F 97 H 16 156/77 H 95 01/31/24 12:00 01/31/24 12:00 01/31/24 12:00 01/31/24 12:00 01/31/24 12:00 Laboratory Data at Discharge: WBC Cancelled 01/31/24 05:00 Hgb Cancelled 01/31/24 05:00 Hct Cancelled 01/31/24 05:00 Plt Count Cancelled 01/31/24 05:00 PT 12.5 SECONDS (9.5-12.5) 01/30/24 09:10 INR 1.14 01/30/24 09:10 APTT 41.3 SECONDS (24.3-36.9) H 01/30/24 09:10 Sodium Cancelled 01/31/24 05:00 Potassium Cancelled 01/31/24 05:00 BUN Cancelled 01/31/24 05:00 Creatinine Cancelled 01/31/24 05:00 Glucose Cancelled 01/31/24 05:00 Magnesium Cancelled 01/31/24 05:00 Total Bilirubin 0.4 mg/dL (0.2-1.0) 01/30/24 09:55 AST 14 U/L (15-37) L 01/30/24 09:55 ALT 17 U/L (16-61) 01/30/24 09:55 Alkaline Phosphatase 84 U/L (45-117) 01/30/24 09:55 Home Medications: carvediloL [Coreg*] 25 mg PO BIDWM tab 01/12/24 Apixaban [Eliquis *] 2.5 mg PO BID 01/30/24 Ascorbic Acid [Vitamin C] 500 mg PO DAILY 01/30/24 Aspirin [Aspirin EC] 81 mg PO DAILY 01/30/24 Atorvastatin Calcium [Lipitor*] 40 mg PO BEDTIME 01/30/24 Cyanocobalamin (Vitamin B-12) [Vitamin B12] 1,000 mcg PO DAILY 01/30/24 Empagliflozin [Jardiance] 10 mg PO DAILY 01/30/24 Ensure High Protein 273 ml PO BID 01/30/24 Ferrous Sulfate 325 mg PO DAILY 01/30/24 Hydralazine [Apresoline*] 100 mg PO BID 01/30/24 Sennosides [Senna] 8.6 mg PO DAILY 01/30/24 Bumetanide [Bumex*] See Rx Instructions .ROUTE .COMPLEX #90 tab 01/31/24 Na Bicarb Tab [Sodium Bicarb 325 MG] 650 mg PO BID #120 tab 01/31/24 New Medications: Bumetanide [Bumex*] See Rx Instructions .ROUTE .COMPLEX #90 tab Na Bicarb Tab [Sodium Bicarb 325 MG] 650 mg PO BID #120 tab Physician Discharge Instructions: -DC IV and DC home -Follow-up with PCP in 1 to 2 weeks -Follow-up with Cardiology and NEPHROLOGY in 1 to 2 weeks -Please call Dr. Garrett at [phone] if any questions regarding hospital stay -Please call nursing station at [phone] if any nursing or medication questions -Return to the emergency room if symptoms worsen Diet: AHA Activity: Fall precautions Followup: Selena Mitchell MD [ACTIVE - CAN ADMIT] - Bassam Donis MD [Primary Care Provider] - Faraz Duque MD [ACTIVE - CAN ADMIT] - Time spent managing pt's care (in minutes): 55
--- NOTE | 2024-01-31 17:01 | CON ---
Date of Consultation: 01/31/2024 Consulting Physician: Dr. Duncan. Reason For Consultation: Elevated BUN and creatinine, fluid management. 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 The patient's baseline creatinine 2.6, GFR of 24 as early January 2024. The patient came to the hospital feeling dizzy and light headed. Upon ar [facility] to the hospital, the patient found to have hyperkalemia with potassium 5.6 and elevation in BUN and creatinine, creatinine 2.9 and low blood pressure. Blood pressure down to the 80 for that reaso n, was admitted. The patient was started on IV hydration. Kidney function has been improved. The p atient feeling better. Past Medical History: 1.Hypertension. 2.Hyperlipidemia. 3.Diabetes complicated with neuropathy, retinopathy and nephropathy. 4.Chronic kidney disease stage 4, baseline creatinine 2.6, GFR 24. 5.CAD with congestive heart failure. 6.Atrial fibrillation, on anticoagulation. Home Medications: Include Eliquis, aspirin, atorvastatin, Ensure, mupirocin, doxycycline, Pepcid, hy dralazine, Bumex 2 mg daily. Past Surgical History: Include cardiac cath, right leg surgery. Family History: Positive for CAD and hypertension. Social History: Denied smoking. Denied drinking. Denied drugs abuse. Review of Systems: Head and Neck: No red eye. No ear pain. GI: No nausea, no vomiting. : No polyuria, no dysuria, no hematuria. Nuclear Medicine Pet Ct Technologist: Not applicable respiratory, no shortness of breath. The patient lying flat. Cardiovascular: Has presyncope. Neuro: Has neuropathy, has presyncope. Musculoskeletal: Generalized fatigue. Physical Examination: General: When I saw the patient the patient lying in bed, flat. Vital Signs: Blood pressure 157/83, pulse of 91, afebrile. Chest: Clear to auscultation. Heart: S1, S2 regular. Abdomen: Soft, nontender. Extremities: No edema. Neuro: Alert, no focality. Laboratory Data: Hemoglobin 15.4. Sodium 132, potassium 5.6, bicarb 21, BUN 51, creatinine 2.8. Ca lcium 9.6, GFR 22. BNP 1800. Urinalysis specific gravity 1017. Current Medications: The patient on include heparin, Tylenol, Zofran, insulin. Assessment And Plan: Acute kidney injury on advanced chronic kidney disease secondary to prerenal, d ehydration. 1.I agree with holding metoprolol. I agree with holding Lasix. We will resume the Bumex on lower d ose alternating 2 and 1 of the Bumex and we will follow up. The patient cleared from the Renal stand point for discharge planning. 2.Hyperkalemia secondary to renal failure. We will follow up lab today. 3.Hypertension with low blood pressure. Agree with holding metoprolol to avoid . Decreas ed Bumex and we will follow up with Cardiology. 4.Coronary artery disease with congestive heart failure, currently on the dry side. We will follow up with Cardiology. 5.Congestive heart failure, currently on the dry side. We will decrease Bumex. ROBERT/LORNE Voice ID: [id number] Report ID: [id number]
== END 2024-01-31 13:57 | disposition home health service (06) ==
LOC: ER 08:36 → ERHOLD 13:19 → INTOOBSV 13:19 → 2ND 15:27
PROVIDERS: ADMIT Hospitalist; ATTEND Hospitalist
DX: I50.43 Acute on chronic combined systolic (congestive) and diastolic (congestive) heart failure (principal); I48.11 Longstanding persistent atrial fibrillation; I25.10 Atherosclerotic heart disease of native coronary artery without angina pectoris; N17.9 Acute kidney failure, unspecified; E87.20 Acidosis, unspecified; R79.89 Other specified abnormal findings of blood chemistry; E87.5 Hyperkalemia; E86.0 Dehydration; F03.90 Unspecified dementia, unspecified severity, without behavioral disturbance, psychotic disturbance, mood disturbance, and anxiety; E11.9 Type 2 diabetes mellitus without complications; E78.00 Pure hypercholesterolemia, unspecified; I10 Essential (primary) hypertension; Z95.5 Presence of coronary angioplasty implant and graft; Z79.01 Long term (current) use of anticoagulants
CPT/HCPCS: 93005; 87040 ×2; 85025; 81001; 36415; 85610; 82947 ×5; 83605 ×2; 85730; 84484 ×3; 80053; 83880; 71045; 94760 ×3; 99285; J1815 ×3; J1644 ×3; G0378 ×4

== ENCOUNTER 2024-05-07 11:59 | Inpatient (IN) | payer OTHER ==
--- OUTSIDE RECORDS SUMMARY | 2024-05-07 12:02 | XMS REPORT | Continuity of Care Document ---
Author Name Unknown Address [address] [facility]. [address] [facility] Address [address] [facility] 1 495 [place] [address] Care Team Providers Care Rehabilitation Aide/Scheduler Name Role Phone KAPIL DONIS Primary Care Physician UnavailKapil Landaverde Attending Clinician Unavailable Michael Orozco Attending Clinician Loc Alcocer RN, Jose Lazo Attending Clinician Unavail Romel Martinez Attending Clinician [phone] Starla Tafoya MD Attending Clinician [phone] Kel Yin MD Attending Clinician [phone] KEL YIN Attending Clinician Unavailable Brissa Reinoso Attending Clinician Unavaila Chad Ospina Attending Clinician Unavailable Physician, No Primary or Family Admitting Clinic joe Unavailable Starla Tafoya MD Admitting Clinician [phone] STARLA TAFOYA Admitting Clinician Unavailable Payers Payer Name Policy Type Policy Number Effective Date Expirati on Date Source [place] [id number] [facility] Problems Condition Name Condition Details Condition Category Status Onset Date Resolution Date Last Treatment Date Treating Clinician Comments Source Nausea and vomiting in adult Nausea and vomiting in adult Disease Active 03-08 00:00: 00 [facility] MULLER (dyspnea on exertion) MULLER (dyspnea on exertion) Disease Active 03-08 00:00: 00 [facility] Coronary artery disease involving [place] coronary artery of [place] heart with angina pectoris Coronary artery disease involving [place] coronary artery of [place] heart with angina pectoris Disease Active 03-08 00:00: 00 [facility] Dyslipidem ia Dyslipidem ia Disease Active 03-08 00:00: 00 [facility] Uncontroll ed hypertensi on Uncontroll ed hypertensi on Disease Active 03-08 00:00: 00 [facility] Chronic heart failure with preserved ejection fraction Chronic heart failure with preserved ejection fraction Disease Active 03-08 00:00: 00 [facility] PAF (paroxysma l atrial fibrillati on) PAF (paroxysma l atrial fibrillati on) Disease Active 03-08 00:00: 00 [facility] Type 2 diabetes mellitus with other specified complicati on Type 2 diabetes mellitus with other specified complicati on Disease Active 03-08 00:00: 00 [facility] Elevated troponin I level Elevated troponin I level Disease Active 03-08 00:00: 00 [facility] Angina of effort Angina of effort Disease Active 02-17 00:00: 00 [facility] [id number] ED (erectile dysfunctio n) of organic origin Problem Active [facility] [id number] Prostate nodule Problem Active [facility] [id number] Urge incontinen ce Problem Active [facility] [id number] Lower urinary tract symptoms (LUTS) Problem Active [facility] Allergies, Adverse Reactions, Alerts Allergy Name Allergy Type Status Severity Reaction(s) Onset Date Inactive Date Treating Clinician Comments Source Penicill ins DA Active SV HIVES 8-05 00:00: 00 EMILEE miller [facility] Penicill ins Propensi ty to adverse reaction s Active Rash 02-17 00:00: 00 [facility] PENICILL INS Drug Class Active Rash 02-17 00:00: 00 [facility] Social History Social Habit Start Date Stop Date Quantity Comments Source History of tobacco use Passive smoker [facility] History SDOH Alcohol Std Drinks [facility] History SDOH Alcohol Binge [facility] History SDOH Social Connections Get Together [facility] History SDOH Social Connections Hinduism [facility] History SDOH Social Connections Membership [facility] History SDOH Social Connections Meetings [facility] Tobacco use and exposure 2023-03-08 00:00:00 2023-03-08 00:00:00 Smokeless tobacco non-user [facility] Alcohol intake 2023-03-08 00:00:00 2023-03-08 00:00:00 3 /d [facility] History SDOH Alcohol Frequency 2023-03-08 00:00:00 2023-03-08 00:00:00 1 [facility] History SDOH Social Connections Phone 2023-03-08 00:00:00 2023-03-08 00:00:00 5 [facility] History SDOH Social Connections Living 2023-03-08 00:00:00 2023-03-08 00:00:00 3 [facility] History SDOH Financial 2023-03-08 00:00:00 2023-03-08 00:00:00 5 [facility] History SDOH Food Worry 2023-03-08 00:00:00 2023-03-08 00:00:00 1 [facility] History SDOH Food Scarcity 2023-03-08 00:00:00 2023-03-08 00:00:00 1 [facility] History SDOH Transport Med 2023-03-08 00:00:00 2023-03-08 00:00:00 2 [facility] History SDOH Transport Non-Med 2023-03-08 00:00:00 2023-03-08 00:00:00 2 [facility] History SDOH Housing Unable to Pay 2023-03-08 00:00:00 2023-03-08 00:00:00 2 [facility] History SDOH Housing Places Lived 2023-03-08 00:00:00 2023-03-08 00:00:00 1 [facility] History SDOH Housing Homeless Last Year 2023-03-08 00:00:00 2023-03-08 00:00:00 2 [facility] Tobacco Comment 2023-03-08 00:00:00 2023-03-08 00:00:00 quit smoking 20 yrs ago [facility] Sex Assigned At 1950 00:00:00 1950 00:00:00 [facility] Smoking Status Start Date Stop Date Source Ex-smoker 2023-03-08 00:00:00 2023-03-08 [facility] Ordered Medication Name Filled Medication Name Start Date Stop Date Current Medication? Ordering Clinician Indication Dosage Frequency Signature (SIG) Comments Components Source insulin glargine 100 unit/mL injection 03-10 00:00: 00 Yes [id number] 15U inject 15 Units under the skin in the morning. [facility] amLODIPine 10 mg tablet 03-10 00:00: 00 04-10 04:59 :00 No [id number] 10mg Take 1 tablet by mouth in the morning for 30 days. [facility] metoprolol succinate XL 50 mg 24 hr tablet 03-10 00:00: 00 04-10 04:59 :00 No [id number] 50mg Take 1 tablet by mouth in the morning for 30 days. [facility] glimepiride (AMARYL) 4 mg tablet 03-09 19:56: 26 Yes 4mg Take 4 mg by mouth daily with breakfast. [facility] ALPRAZolam (XANAX) 1 mg tablet 03-09 19:56: 26 Yes 1mg Take 1 mg by mouth 3 (three) times daily. [facility] omega-3 fatty acids-vitam in E (FISH OIL) 1,000 mg capsule 03-09 19:56: 26 Yes 1g Take 1 g by mouth daily. [facility] rosuvastati n (CRESTOR) 10 mg tablet 03-09 15:36: 42 03-09 00:00 :00 No 10mg Take 10 mg by mouth at bedtime. [facility] metoprolol succinate XL (TOPROL XL) 50 mg 24 hr tablet 03-09 15:36: 42 03-09 00:00 :00 No 50mg Take 50 mg by mouth daily. [facility] hydrochloro thiazide (ESIDRIX) 25 mg tablet 03-09 15:36: 42 03-09 00:00 :00 No 25mg Take 25 mg by mouth daily. [facility] canaglifloz in (INVOKANA) 300 mg tablet 03-09 15:36: 42 03-09 00:00 :00 No Take by mouth. [facility] metFORMIN (GLUCOPHAGE ) 1,000 mg tablet 03-09 15:36: 42 03-09 00:00 :00 No 1000mg Take 1,000 mg by mouth 2 (two) times daily with meals. [facility] Amlodipine- Olmesartan (SKYLAR) 10-40 mg per tablet 03-09 15:36: 42 03-09 00:00 :00 No Take by mouth. [facility] INSULIN DETEMIR (LEVEMIR FLEXTOUCH SC) 03-09 15:36: 42 03-09 00:00 :00 No inject under the skin. [facility] aspirin 81 mg EC tablet 03-09 15:36: 42 03-09 00:00 :00 No 81mg Take 81 mg by mouth daily. [facility] rosuvastati n (CRESTOR) tablet 10 mg 03-09 02:00: 00 Yes 10mg 10 mg, Oral, QHS, First dose on Mon03/08/23 at 2100, Until Discontinu ed, Routine [facility] aspirin 81 mg EC tablet 03-09 00:00: 00 04-09 04:59 :00 No [id number] 81mg Take 1 tablet by mouth in the morning for 30 days. [facility] hydroCHLORO thiazide 25 mg tablet 03-09 00:00: 00 04-09 04:59 :00 No [id number] 25mg Take 1 tablet by mouth in the morning for 30 days. [facility] metFORMIN 1,000 mg tablet 03-09 00:00: 00 04-09 04:59 :00 No [id number] 1000mg Take 1 tablet by mouth in the morning and 1 tablet in the evening. Take with meals. Do all this for 30 days. [facility] rosuvastati n 10 mg tablet 03-09 00:00: 00 04-09 04:59 :00 No [id number] 10mg Take 1 tablet by mouth at bedtime for 30 days. [facility] sulfur hexafluorid e microsphr (LUMASON) injection 5 mL 03-08 15:45: 00 03-08 15:45 :00 No [id number] 5mL 5 mL, Intravenou s, ONCE, 1 dose, On Mon03/08/23 at 1045, Routine
produce team member approving Restricted medication : RONALD AVILA [facility] Saline Bubble Study 03-08 15:41: 23 Yes [id number] 6mL 6 mL, Injection, SEE-INSTRU CTIONS, Starting on Mon03/08/23 at 1041, Until Discontinu ed, Routine [facility] insulin glargine (LANTUS U-100) injection 15 Units 03-08 14:15: 00 Yes 15U 15 Units, Subcutaneo us, DAILY, First dose on Mon03/08/23 at 0915, Until Discontinu ed, Routine [facility] amLODIPine (NORVASC) tablet 10 mg 03-08 14:15: 00 Yes 10mg 10 mg, Oral, DAILY, First dose on Mon03/08/23 at 0915, Until Discontinu ed, Routine [facility] metoprolol succinate XL (TOPROL XL) tablet 50 mg 03-08 14:15: 00 Yes 50mg 50 mg, Oral, DAILY, First dose on Mon03/08/23 at 0915, Until Discontinu ed, Routine [facility] hydroCHLORO thiazide (ESIDRIX) tablet 25 mg 03-08 14:15: 00 Yes 25mg 25 mg, Oral, DAILY, First dose on Mon03/08/23 at 0915, Until Discontinu ed, Routine [facility] aspirin EC tablet 81 mg 03-08 14:15: 00 Yes 81mg 81 mg, Oral, DAILY, First dose on Mon03/08/23 at 0915, Until Discontinu ed, Routine [facility] ALPRAZolam (XANAX) tablet 1 mg 03-08 14:04: 36 Yes 1mg 1 mg, Oral, TIDPRN, Starting on Mon03/08/23 at 0904, Until Discontinu ed, Routine, Anxiety [facility] Sliding Scale Insulin - Lispro (HumaLOG) 03-08 13:00: 00 Yes Subcutaneo us, TID MEALS+HS, First dose on Mon03/08/23 at 0800, Until Discontinu ed, Routine [facility] heparin (porcine) injection 5,000 Units 03-08 11:00: 00 Yes 5000U 5,000 Units, Subcutaneo us, Q8H, First dose on Mon03/08/23 at 0600, Until Discontinu ed, Routine [facility] hydralAZINE (APRESOLINE ) injection 10 mg 03-08 09:38: 44 Yes 10mg 10 mg, Slow IV Push, Q4HPRN, Starting on Mon03/08/23 at 0438, Until Discontinu ed, Routine, DBP=>100; SBP=>180 [facility] glucagon (GLUCAGEN DIAGNOSTIC KIT) injection 1 mg 03-08 09:36: 45 Yes 1mg 1 mg, Intramuscu lar, PRN, Starting on Mon03/08/23 at 0436, Until Discontinu ed, RENETTA, Blood Glucose < or = 70 mg/dL and patient is NPO, unable to swallow or has mental changes. [facility] dextrose 50 % in water (D50W) injection 25 mL 03-08 09:36: 45 Yes 25mL 25 mL, Slow IV Push, PRN, Starting on Mon03/08/23 at 0436, Until Discontinu ed, RENETTA, Blood Glucose < or = 70 mg/dL and patient is NPO, unable to swallow or has mental status changes. [facility] ondansetron (ZOFRAN (PF)) injection 4 mg 03-08 09:36: 24 Yes 4mg 4 mg, Slow IV Push, Q6HPRN, Starting on Mon03/08/23 at 0436, Until Discontinu ed, Routine, Nausea and Vomiting (N/V) [facility] HYDROcodone -acetaminop hen (NORCO 5) 5-325 mg tablet 1 tablet 03-08 09:36: 16 03-10 09:35 :16 No 1{tbl} 1 tablet, Oral, Q6HPRN, Starting on Mon03/08/23 at 0436, Until Mon03/10/23 at 0435, Routine, Pain (scale 4-6) [facility] acetaminoph en (TYLENOL) tablet 650 mg 03-08 09:36: 10 Yes 650mg 650 mg, Oral, Q6HPRN, Starting on Mon03/08/23 at 0436, Until Discontinu ed, Routine, Pain (scale 1-3), Temp > 38 C [facility] ondansetron (ZOFRAN (PF)) injection 4 mg 03-08 05:45: 00 03-08 05:40 :00 No 4mg 4 mg, Slow IV Push, ONCE, 1 dose, On Mon03/08/23 at 0045, RENETTA [facility] VESIcare 5 MG VESIcare 5 MG 2019-10 [...] Systolic blood pressure 2023-03-10 00:08:00 163 mm[Hg] [facility] Diastolic blood pressure 2023-03-10 00:08:00 90 mm[Hg] [facility] Heart rate 2023-03-10 00:08:00 70 /min [facility] Body temperature 2023-03-10 00:08:00 35.17 Teresa [facility] Respiratory rate 2023-03-10 00:08:00 16 /min [facility] Oxygen saturation in Arterial blood by Pulse oximetry 2023-03-10 00:08:00 90 /min [facility] Body weight 2023-03-09 08:37:00 102.967 kg [facility] BMI 2023-03-09 08:37:00 30.79 kg/m2 [facility] Body height 2023-03-08 09:35:00 182.9 cm [facility] height 2020-12-03 11:15:00 70 [in_i] Commo n [facility] weight 2020-12-03 11:15:00 197 [lb_av] Comm on [facility] temperature 2020-12-03 11:15:00 97.6 [degF] Com mon [facility] bmi 2020-12-03 11:15:00 28.26 kg/m2 Comm on [facility] oximetry 2020-12-03 11:15:00 97 % Commo n [facility] blood pressure systolic 2020-12-03 11:15:00 139 mm[Hg] Common [facility] blood pressure diastolic 2020-12-03 11:15:00 64 mm[Hg] Common [facility] height 2020-08-24 14:00:00 70 [in_i] Commo n [facility] weight 2020-08-24 14:00:00 199.6 [lb_av] Co mmon [facility] temperature 2020-08-24 14:00:00 98.4 [degF] Com mon [facility] bmi 2020-08-24 14:00:00 28.64 kg/m2 Comm on [facility] oximetry 2020-08-24 14:00:00 96 % Commo n [facility] blood pressure systolic 2020-08-24 14:00:00 197 mm[Hg] Common [facility] blood pressure diastolic 2020-08-24 14:00:00 86 mm[Hg] [facility] Procedures Procedure Date / Time Performed Performing Clinician Source POCT GLUCOSE (AUTOMATED) 2023-03-09 21:33:00 Janiya Tafoya [facility] POCT GLUCOSE (AUTOMATED) 2023-03-09 16:39:00 Janiya Tafoya [facility] POCT GLUCOSE (AUTOMATED) 2023-03-09 12:45:00 Janiya Tafoya [facility] PHOSPHORUS 2023-03-09 09:02:00 Kel [facility]in [facility] MAGNESIUM 2023-03-09 09:02:00 Starla Taf[facility] TROPONIN I 2023-03-09 09:02:00 Kel Yin [facility] HEPATIC FUNCTION PANEL (55863) (ALB,T.PRO,BILI T,BU/BC,ALT,AST,ALK PHOS) 2023-03-09 09:02:00 Kel Yin [facility] BASIC METABOLIC PANEL (NA, K, CL, CO2, GLUCOSE, BUN, CREATININE, CA) 2023-03-09 09:02:00 Starla Tafoya [facility] CBC WITH DIFF 2023-03-09 09:02:00 Jagdish [facility] N-TERMINAL PRO-BNP 2023-03-09 09:02:00 Kel Yin [facility] POCT GLUCOSE (AUTOMATED) 2023-03-09 02:08:00 Janiya Tafoya fay [facility] TROPONIN I 2023-03-08 22:51:00 Michelet [facility] GLYCOSYLATED HEMOGLOBIN (A1C) 2023-03-08 22:51:00 Jagdish Martin [facility] POCT GLUCOSE (AUTOMATED) 2023-03-08 21:22:00 Janiya Tafoya [facility] POCT GLUCOSE (AUTOMATED) 2023-03-08 16:16:00 Janiya Tafoya fay [facility] TRANSTHORACIC ECHO (TTE) COMPLETE W/ CONTRAST 2023-03-08 14:29:00 [facility]) 2023-03-08 12:39:00 Janiya Tafoya [facility] PHOSPHORUS 2023-03-08 11:24:00 Starla Tafoya [facility] TROPONIN I 2023-03-08 11:24:00 Michelet [facility] N-TERMINAL PRO-BNP 2023-03-08 11:24:00 Candi Patel [facility] XR CHEST 1 VW 2023-03-08 06:27:00 Temi Holloway [facility] HB ECG ROUTINE & RHYTHM STRIP 2023-03-08 05:39:37 Temi Holloway [facility] LIPASE 2023-03-08 05:39:00 Temi Holloway [facility] TROPONIN I 2023-03-08 05:39:00 Temi Holloway [facility] THYROID STIMULATING HORMONE 2023-03-08 05:39:00 Starla Tafoya [facility] COMP. METABOLIC PANEL (19405) 2023-03-08 05:39:00 Temi Holloway [facility] LIPID PANEL (61547)(TOTAL CHOLESTEROL, TRIGLYCERIDES, HDL) 2023-03-08 05:39:00 Starla Tafoya [facility] CBC WITH DIFF 2023-03-08 05:39:00 Temi Holloway [facility] GLYCOSYLATED HEMOGLOBIN (A1C) 2023-03-08 05:39:00 [facility] Start Date/Time End Date/Time Encounter Type Admission Type Attending [facility] Care Facility Care Department Encounter ID Source 2021-10-27 12:15:25 Outpatient Donis, Kapil [facility] [id number] [facility] 2021-10-27 12:07:45 Outpatient [facility] [id number] [facility] 2023-08-08 10:16:00 2023-08-08 10:16:00 Outpatient MAGDALENE Pittelizabeth Michael [facility] EKG [id number] [facility] 2023-03-10 00:00:00 2023-03-10 00:00:00 Transition of Care Jose Alcocer [address] 1..[id number] [facility] 2023-03-08 00:29:00 2023-03-09 19:46:00 Emergency Romel Montez Jelani Abdullah, Yaman [facility] ..[id number] [facility] 2023-03-08 00:29:00 2023-03-09 19:46:00 Outpatient KEL ALVAREZ [facility] [id number] [facility] 2022-05-31 08:52:00 2022-05-31 08:52:00 Outpatient Brissa Dial [facility] [id number] [facility] 2022-05-11 10:11:00 2022-05-11 10:11:00 Outpatient Chad Rae [facility] [id number] [facility] 2022-05-11 10:11:00 2022-05-11 10:11:00 Outpatient Chad Rae [facility] [id number] [facility] 2020-12-03 00:00:00 2020-12-03 00:00:00 OFFICE VISIT ESTAB PT LEVEL 2 STLMLC STLMLC [id number] [facility] 2020-08-24 00:00:00 2020-08-24 00:00:00 OFFICE VISIT NEW PT LEVEL 4 STLMLC STLMLC [id number] [facility] Results Test Description Test Time Test Comments Results Result Co mments Source [facility] GLU[facility]SE (AUTOMATED)2023-03-09 16:43:52* Test Item Value Reference Range Interpretation Comme nts POCT GLU (test code = 7269959965) 138 mg/dL 70-110 H Lab Interpretation (test cod e = 63413-0) [facility] GLUCOSE (AUTOMATED)2023-03-09 12:55:44* Test Item Value Reference Range Interpretation Comme nts POCT GLU (test code = 3204972481) 126 mg/dL 70-110 H Lab Interpretation (test cod e = 50462-8) [facility]normal [facility] GLUCOSE (AUTOMATED)2023-03-09 02:09:42* Test Item Value Reference Range Interpretation Comme nts POCT GLU (test code = 9360744312) 115 mg/dL 70-110 H Lab Interpretation (test cod e = 42709-5) Abnormal [facility] GLUCOSE (AUTOMATED)2023-03-08 21:32:42* Test Item Value Reference Range Interpretation Comme nts POCT GLU (test code = 1476704908) 266 mg/dL 70-110 H Lab Interpretation (test cod e = 37266-1) Abnormal [facility] GLUCOSE (AUTOMATED)2023-03-08 16:26:44* Test Item Value Reference Range Interpretation Comme nts POCT GLU (test code = 9389193801) 195 mg/dL 70-110 H Lab Interpretation (test cod e = 38291-5) Abnormal [facility] GLUCOSE (AUTOMATED)2023-03-08 12:40:58* Test Item Value Reference Range Interpretation Comme [facility] POCT GLU (test code = 0301578212) 179 mg/dL 70-110 H Lab Interpretation (test cod e = 87617-9) Abnormal [facility] (TSH)2023-03-08 11:56:52* Test Item Value Reference Range Interpretation Comme nts TSH (test code = 1218333720) 5.09 See_Comment H Biotin has been reported to cause a negative bias, interpret results relative to patient's use of biotin. [Automated message] The system which generated this result transmitted reference range: 0.45 - 4.70 mIU/L. The reference range was not used to interpret this result as normal/abnormal. Lab Interpretation (test code = 45597-1) Abnormal [facility] Hem[facility] (A1C)2023-03-08 11:27:39* Test Item Value Reference Range Interpretation Comme [facility] HGB A1C (test code = 4548-4) 9.3 % 4.0-5.7 H TRINIDAD (test code = TRINIDAD) Reference RangesNormal: <5.7%Prediabetes: 5.7 - 6.4%Diabetes: > 6.5% Lab Interpretation (test code = 91285-2) Abnormal [facility] (Total Cholesterol, Triglycerides, HDL)2023-03-08 11:14:15* Test Item Value Reference Range Interpretation Comme nts CHOL (test code = 6592760367) 166 mg/dL 120-200 HDL (test code = 1927926206) 51 mg/dL >=40 HDLC RATIO (test code = 0896862224) 3.3 <=5.0 TRIG (test code = 0074496314) 83 mg/dL 30-170 LDL CHOL (test code = 61125-0) 98 mg/dL <=160 VLDL (test code = 3203885059) 17 mg/dL 5-60 Lab Interpretation (test cod e = 36196-3) Normal [facility] [id number] 06:21:21* Test Item Value Reference Range Interpretation Comme nts TROPONIN I (test code = 8746406159) 0.075 ng/mL <=0.034 H TRINIDAD (test code [...] of biotin. Lab Interpretation (test code = 92208-0) Abnormal [facility]. METABOLIC PANEL (16660)2023-03-08 06:10:20* Test Item Value Reference Range Interpretation Comme nts NA (test code = 7410685225) 135 mmol/L 135-145 K (test code = 7499554844) 4.3 mmol/L 3.5-5.0 CL (test code = 5857706497) 104 mmol/L 98-108 CO2 TOTAL (test code = 6462294131) 26 mmol/L 23-31 AGAP (test code = 8849209165) 5 2-16 BUN (test code = 6243476898) 27 mg/dL 7-23 H GLUCOSE (test code = 2946408864) 243 mg/dL 70-110 H CREATININE (test code = 9460156568) 2.15 mg/dL 0.60-1.25 H TOTAL BILI (test code = 6476169990) 0.8 mg/dL 0.1-1.1 CALCIUM (test code = 9381258434) 8.2 mg/dL 8.6-10.6 L T PROTEIN (test code = 2974925712) 6.0 g/dL 6.3-8.2 L ALBUMIN (test code = 0632696851) 2.5 g/dL 3.5-5.0 L ALK PHOS (test code = 2643270338) 60 U/L 34-122 ALTv (test code = 1742-6) 17 U/L 5-50 AST(SGOT) (test code = 0327630914) 26 U/L 13-40 eGFR (test code = 8299683377) 30.1 mL/min/1.73m2 TRINIDAD (test code = TRINIDAD) [...] imaging tests). Lab Interpretation (test code = 48194-9) Abnormal [facility], [id number] 06:09:44* Test Item Value Reference Range Interpretation Comme nts LIPASE (test code = 8452592428) 101 U/L 0-220 Lab Interpretation (test cod e = 69624-8) Normal [facility] WITH [id number] 05:51:59* Test Item Value Reference Range Interpretation [...] 31.9 g/dL 31.2-35.0 RDW-SD (test code = 93223-7) 56.7 fL 38.5-51.6 H RDW-CV (test code = 788-0) 19.4 % 12.1-15.4 H PLT (test code = 777-3) 232 See_Comment [Automated messa ge] The system which generated this result transmitted reference range: 150 - 328 10*3/?L. The reference range was not used to interpret this result as normal/abnormal. MPV (test code = 39266-9) 10.5 fL 9.8-13.0 NRBC/100 WBC (test code = [id number]) 0.0 See_Comment [Automated [employer] ssage] The system which generated this result transmitted reference range: 0.0 - 10.0 /100 WBCs. The reference range was not used to interpret this result as normal/abnormal. NRBC x10^3 (test code = 8655680872) See_Comment [Automated messa ge] The system which generated this result transmitted reference range: 10*3/?L. The reference range was not used to interpret this result as normal/abnormal. GRAN MAT (NEUT) % (test code = 770-8) 68.1 % IMM GRAN % (test code = 2154128317) 0.20 % LYMPH % (test code = 736-9) 20.0 % MONO % (test code = 5905-5) 9.2 % EOS % (test code = 713-8) 1.6 % BASO % (test code = 706-2) 0.9 % GRAN MAT x10^3(ANC) (test code = 0746849924) 3.85 10*3/uL 1.99-6.95 IMM GRAN x10^3 (test code = 2094013974) 0.00-0.06 LYMPH x10^3 (test code = 731-0) 1.13 10*3/uL 1.09-3.23 MONO x10^3 (test code = 742-7) 0.52 10*3/uL 0.36-1.02 EOS x10^3 (test code = 711-2) 0.09 10*3/uL 0.06-0.53 BASO x10^3 (test code = 704-7) 0.05 10*3/uL 0.01-0.09 Lab Interpretation (test code = 99124-9) [facility]normal [facility] As[facility] IH [id number] 10:17:00 * Test Item Value Reference Range [...] waivedcomplexity tests. - CTA HEART W CN ART/[id number] 00:00:00 [facility] : 1950 Sex: M Name: ALBERT MARQUEZ [facility] Dagmar Jeronimo : 1950 Age/S: 72 / M [address] [place] [address] Blvd Unit #: [id number] Loc: [place] [address] Phys: Brissa Reinoso [facility] Acct: [id number] Dis Date: Status: REG [place] #: [phone] Exam Date: 05/31/2022 1012 FAX #: [phone] Reason: EXAMS: CPT CODE: [id number] CTA HEART W CN ART/GRAFTS 19735 PROCEDURE INFORMATION: Exam: CTA Heart And Coronary [...] 1 Signed Report (CONTINUED) Name: ALBERT MARQUEZ [facility] : 1950 Age/S: 72 / M [address] [place] [address] Unit #: [id number] Loc: [place] [address] Phys: Brissa Reinoso [facility] Acct: [id number] Dis Date: Status: REG CLI PHONE #: [phone] Exam Date: 05/31/2022 1012 FAX #: [phone] Reason: EXAMS: CPT CODE: [id number] CTA HEART W CN ART/GRAFTS 89419 (Continued) mitral annular calcification. 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 [...] PEL W CONT 2022-05-31 00:00:00 [facility] : 1950 Sex: M Name: ALBERT MARQUEZ [facility] [place] : 1950 Age/S: 72 / M [address] [place] [address] Blvd Unit #: [id number] Loc: [place] [address] Phys: Brissa Reinoso Acct: [id number] Dis Date: Status: MITZY PRUITT #: [phone] Exam Date: 05/31/2022 1012 FAX #: [phone] Reason: 135.0, SEVERE AORTIC STENOSIS. EXAMS: CPT CODE: [id number] CTA ABD PEL W CONT 26624 PROCEDURE INFORMATION: Exam: CTA Heart And Coronary [...] 1 Signed Report (CONTINUED) Name: ALBERT MARQUEZ [facility] : 1950 Age/S: 72 / M [address] [facility] Unit #: [id number] Loc: [place] [address] Phys: Brissa Reinoso [facility] Acct: [id number] D is Date: Status: REG CLI PHONE #: [phone] Exam Date: 05/31/2022 1012 FAX #: [phone] Reason: 135.0, SEVERE AORTIC STENOSIS. EXAMS: CPT CODE: [id number] CTA ABD PEL W CONT 94577 (Continued) mitral annular calcification. PERICARDIUM: No evidence [...] Report (CONTINUED) Name: ALBERT MARQUEZ [facility] Dagmar Jeronimo : 1950 Age/S: 72 / M [address] [place] [address] Bl Unit #: [id number] Loc: [place] [address] Phys: Brissa Reinoso Acct: [id number] Dis Date: Status: REG CLI PHONE #: [phone] Exam Date: 05/31/2022 1012 FAX #: [phone] Reason: 135.0, SEVERE AORTIC STENOSIS. EXAMS: CPT CODE: [id number] CTA ABD PEL W CONT 68424 (Continued) Small uncomplicated fat containing umbilical hernia. [...] (1724) PAGE 3 Signed Report- CT ANGIO [id number] 00:00:00[facility] : 1950 Sex: M Name: ALBERT MARQUEZ [facility] Dagmar Jeronimo : 1950 Age/S: 72 / M [address] [place] [address] Blvd Unit #: [id number] Loc: [place] [address] Phys: Brissa Reinoso POULTRY SERVICE TECHNICIAN Acct: [id number] Dis Date: Status: REG [place] #: [phone] Exam Date: 05/31/2022 1012 FAX #: [phone] Reason: 135.0 , SEVERE AORTICSTENOSIS. EXAMS: CPT CODE: [id number] CT ANGIO CHEST 38808 PROCEDURE INFORMATION: Exam: CTA Heart And Coronary [...] 1 Signed Report (CONTINUED) Name: ALBERT MARQUEZ [facility] : 1950 Age/S: 72 / M [address] [place] [address] Blvd Unit #: [id number] Loc: [place] [address] Phys: Brissa Reinoso [facility] Acct: [id number] Dis Date: Status: REG CLI PHONE #: [phone] Exam Date: 05/31/2022 1012 FAX #: [phone] Reason: 135.0 , SEVERE AORTIC STENOSIS. EXAMS: CPT CODE: [id number] CT ANGIO CHEST 88228 (Continued) mitral annular calcification. PERICARDIUM: No evidence [...] 2 Signed Report (CONTINUED) Name: ALBERT MARQUEZ [facility] : 1950 Age/S: 72 / M [address] [place] [address] Unit #: [id number] Loc: [place] [address] Phys: ChrisstephaniemikaBrissa POULTRY SERVICE TECHNICIAN Acct: [id number] Dis Date: Status: REG CLI PHONE #: [phone] Exam Date: 05/31/2022 1012 FAX #: [phone] Reason: 135.0 , SEVERE AORTIC STENOSIS. EXAMS: CPT CODE: [id number] CT ANGIO CHEST 52192 (Continued) Small uncomplicated fat containing umbilical hernia. [...] (1723) [id number] Orig Print D/T: S: 05/31/2022 (2872) PAGE 3 Signed ReportGLUCOSE [id number] 09:36:00 * Test Item Value Reference Range Interpretation Comme nts GLUCOSE BEDSIDE (test code = GLUBED) 137 MG/DL 70-110 H Performed by cer lisa gas welding machine operator at [facility] BASIC METABOLIC [id number] 16:24:00* Test Item Value Reference Range Interpretation [...] = CA) 8.9 mg/dL 8.0-10.5 N PROTHROMBIN [id number] 16:19:00* Test Item Value Reference Range Interpretation [...] Infarction (to prevent recurrent infarct). CBC W/AUTO [id number] 16:09:00* Test Item Value Reference Range Interpretation [...] Notes Date/Time Note Provider Source 2023-08-08 15:06:00 [id number] [facility] [id number] [place] [address] PATIENT NAME: ALBERT MARQUEZ ADMIT DATE: 08/08/23 ACCOUNT NO: [id number] ROOM NO: AGE: 73 REPORT TYPE: eECHOCARDIOGRAM REPORT SEX: M ADMITTING PHYSICIAN: ATTENDING PHYSICIAN: DO [facility] [address] [place] [address] Transthoracic Echocardiogram Patient: Albert Marquez Study Date: 08/08/2023 BP: Location: [facility] URN: [id number] : 1950 Age: 73 Height: 72 in / 182.9 cm Gender: M Weight: 188.6 lb / 85.7 kg BMI/BSA: 25.6 kg/m 2 / 2.08 m 2 *Ordering Physician: * Michael Orozco *Interpreting Physician: * Osmany Griffith MD *Supplier Quality Manager: * Rachael Melo Indications: CAD. Atrial Fibrillation. Study data: Transthoracic echocardiogram. Procedure: Transthoracic echocardiography was performed. Image quality was adequate. Complete 2D, complete spectral Doppler, and color Doppler. Location: Echo laboratory. Patient status: Outpatient. Study status: Routine. Findings Left ventricle: The cavity size is normal. Wall thickness is mildly to moderately increased. Systolic function is normal. The estimated ejection fraction is 60-64%. Wall motion is normal; there are no regional wall motion abnormalities. Doppler parameters are consistent with abnormal left ventricular relaxation (grade 1 diastolic dysfunction). Right ventricle: The cavity size is normal. Systolic function is PATIENT NAME: ALBERT MARQUEZ normal. Left atrium: The atrium is normal in size. Right atrium: The atrium is normal in size. Aorta: Aortic root: The aortic root is normal in size. Aortic valve: The valve is trileaflet. The leaflets are moderately calcified. The findings are consistent with moderate stenosis. There is moderate regurgitation. Mitral valve: The annulus is calcified. The leaflets are mildly thickened. The findings are consistent with mild stenosis. There is trivial regurgitation. Tricuspid valve: The valve is structurally normal. There is mild regurgitation. Pulmonic valve: The valve is structurally normal. There is trivial regurgitation. Pericardium: There is no pericardial effusion. Pulmonary arteries: The main pulmonary artery is normal-sized. Systemic veins: Inferior vena cava: The vessel is normal in [...] Value 05/11/2022 Ref PATIENT NAME: ALBERT MARQUEZ [place] peak v 0.99 m/sec ----- NJ peak grad 4 mm Hg ----- Tricuspid [...] abnormal left ventricular relaxation (grade 1 diastolic dysfunction). 2. Right ventricle: The RV pressure during systole by Doppler is 38 mm Hg. 3. Aortic valve: The findings are consistent with moderate stenosis. There is moderate regurgitation. The mean systolic gradient is 13.1 mm Hg. The peak systolic gradient is 29.8 mm Hg. The regurgitation pressure half-time is 500 ms. 4. Mitral valve: The annulus is calcified. The leaflets are mildly thickened. The findings are consistent with mild stenosis. Prepared and electronically signed by Osmany Griffith MD 08/08/2023 15:05 at 1506 PATIENT NAME: ALBERT MARQUEZ [facility] 2022-06-02 08:57:00 [id number] [place] [address] patient name: albert marquez admit date: 05/31/22 account no: [id number] room no: age: 72 report type: pulmonary [...] iii. dictated by: dorothy baer md wt: pft:jacques/arianaa/nts dd: 06/02/2022 08:57:29 dt: 06/02/2022 09:52:31 conf#: [id number]/did#: [id number] authenticated by dorothy baer md on 06/06/2022 08:17:48 am electronically signed by dorothy baer md on 06/06/22 at 0817 patient name: albert marquez [facility] 2022-05-11 15:06:00 [facility] clinical note report#:[id number] report status: signed date:05/11/22 time: 1506 patient: albert marquez unit #: [id number] room/bed: : 48 age: 72 sex: m attend: chad valadez md adm dt: 05/11/22 author: ian coates nnps * all edits or amendments must be made on the electronic/computer document * clinical note note: 72-year-old -sammarinese male with past medical history of hypertension, [...] to wait. electronically signed by ian coates np on 05/12/22 at 1522 electronically signed by juan miguel molina md on 05/24/22 at 0953 rpt #:[id number] end of report [facility] 2022-05-11 15:06:00 [facility] ([facility]) Clinical Note REPORT#:[id number] REPORT STATUS: Signed DATE:05/11/22 TIME: 1506 PATIENT: ALBERT MARQUEZ UNIT #: [id number] ROOM/BED: : 48 AGE: 72 SEX: M ATTEND: Chad Valadez MD ADM AUTHOR: Ian Coates NP * ALL edits or amendments must be made on the electronic/computer document * Clinical Note Note: 72-year-old -Moroccan male with past medical history of hypertension, [...] not want to wait. at 1522 RPT #:[id number] END OF REPORT [facility]"
--- NOTE | 2024-05-07 14:34 | RAD REPORT ---
EXAM DESCRIPTION: US - Extrem Venous W Compress Mac - 05/07/2024 1:56 pm CLINICAL HISTORY: fall COMPARISON: Extrem Venous W Compress Mac dated 11/20/2023 TECHNIQUE: Real-time sonographic evaluation of the lower extremity deep venous systems was performed using color Doppler, grayscale, and compression. FINDINGS: Bilateral lower extremities. Normal compressibility, flow augmentation, phasic flow and spontaneous flow is identified in both the left and right lower extremity deep venous systems. No intraluminal filling defects seen. IMPRESSION: No DVT in either lower extremity.
--- NOTE | 2024-05-07 14:46 | RAD REPORT ---
EXAM DESCRIPTION: CT - Head Brain Wo Cont - 05/07/2024 2:35 pm CLINICAL HISTORY: fall COMPARISON: Head Brain Wo Cont dated 01/09/2024; Head Brain Wo Cont dated 11/20/2023 TECHNIQUE: All CT scans are performed using dose optimization technique as appropriate and may inclu de automated exposure control or mA/KV adjustment according to patient size. FINDINGS: No intracranial hemorrhage, hydrocephalus or extra-axial fluid collection.No areas of brai n edema or evidence of midline shift. Moderate chronic small vessel ischemic changes. Cerebral atroph y. The right maxillary sinus is nearly completely opacified. The calvarium is intact. IMPRESSION: No acute intracranial abnormality.
--- NOTE | 2024-05-07 15:04 | RAD REPORT ---
EXAM DESCRIPTION: RAD - Chest Single View - 05/07/2024 2:52 pm CLINICAL HISTORY: fall COMPARISON: Chest Single View dated 01/30/2024; Chest Single View dated 01/09/2024; Chest Single View d ated 11/20/2023; Chest Single View dated 07/12/2023 FINDINGS: Lines: None. Lungs: No evidence of edema or pneumonia. Pleural: No significant pleural effusions or pneumothorax. Cardiac: The heart size is within normal limits. Mediastinum: Within normal limits. Bones: No acute fractures. Other: None IMPRESSION: No acute cardiopulmonary disease.
[2024-05-07 15:06] LABS: Absolute Basophils 0.1 K/uL (0-0.5); Absolute Eosinophils 0.3 K/uL (0-0.5); Absolute Lymphocytes (CBC) 1.2 K/uL (0.7-4.9); Absolute Monocytes 0.8 K/uL (0.1-1.3); Absolute Neutrophil 6.7 K/uL (1.8-8.0); Basophils % 0.8 % (0-1.3); Eosinophils % 3.7 % (0-4.4); Hematocrit 50.9 % (39.6-49.0); Hemoglobin 15.6 g/dL (13.6-17.9); Lymphocytes % 13.1 % (15.3-44.8); MCH 26.1 pg (27.0-35.0); MCHC 30.6 g/dL (32.0-36.0); MCV 85.3 fL (80-100); MPV 8.6 fL (7.6-11.3); Monocytes % 8.3 % (3.3-12.3); Neutrophils % 74.1 % (41.7-73.7); Nucleated Red Blood Cells % 0.1 % (0-0); Platelets 282 thou/uL (152-406); RBC Red Blood Cell Count 5.97 M/uL (4.33-5.43)
--- NOTE | 2024-05-07 15:28 | RAD REPORT ---
EXAM DESCRIPTION: US - Lower Extremity Arterial Bilat - 05/07/2024 2:13 pm CLINICAL HISTORY: Pain and swelling COMPARISON: 10/14/2022 ultrasound, MRA peripheral 12/08/2022 FINDINGS: The common femoral, superficial femoral and popliteal arteries bilaterally demonstrate mon ophasic waveforms The posterior tibial and dorsalis pedis arteries demonstrate monophasic waveforms bilaterally. Popliteal fossa cyst on the right measuring 1.8 x 1.7 cm. IMPRESSION: Monophasic waveforms throughout the bilateral lower extremity arteries. This would sugge st inflow stenosis, possibly at the aortoiliac level.
[2024-05-07 15:34] LABS: PTT, Activated Partial Thromb 57.9 SECONDS (24.3-36.9); Protime INR 1.35
[2024-05-07] MEDS ORDERED: MORPHINE 2 MG/ML SYR IV PRN (16:22)
[2024-05-07] MEDS ORDERED: ONDANSETRON 4 MG/2 ML VIAL IV PRN (16:22)
--- NOTE | 2024-05-07 17:04 | EKG ---
Test Date: 2024-05-07 Test Time: 12:32:37 Mapping Pilot: MB MEASUREMENT RESULTS: Intervals: Rate: 70 TX: 150 QRSD: 84 QT: 426 QTc: 460 Thorpe: P: 94 TX: 150 QRS: 265 T: 18 INTERPRETIVE STATEMENTS: Suspect arm lead reversal, interpretation assumes no reversal Sinus rhythm with premature atrial complexes with aberrant conduction Right superior axis deviation Pulmonary disease pattern Abnormal ECG Compared to ECG 01/30/2024 08:57:26 Atrial premature complex(es) now present Aberrant conduction of supraventricular beat(s) now present Right superior axis now present T-wave abnormality no longer present Possible ischemia no longer present Prolonged QT interval no longer present Electronically Signed On 05-07-24 17:04:17 CDT by Chad Alvarez
--- NOTE | 2024-05-07 17:15 | EDPHYS ---
Physician Documentation [facility] Name: Julianna Kearns Age: 74 yrs Sex: Male : 1950 Arrival Date: 05/07/2024 Time: 11:59 Bed 17 Private MD: ED Physician Edouard Farley HPI: 05/07 12:34 This 74 yrs old Black Male presents to ER via EMS with complaints of left leg problem. rn 12:34 The patient presents to the emergency department with weakness of the left lower rn extremity. Onset: The symptoms/episode began/occurred 2 day(s) ago. Severity of symptoms: At their worst the symptoms were moderate in the emergency department the symptoms are unchanged. The patient has not experienced similar symptoms in the past. Patient reports initially called EMS full. Patient reports has been having trouble with left leg weakness for the last 2 days. States the left leg gives out when trying to use walker. Today left leg gave out, denies injury or direct trauma to the leg. Patient reports feels weak on the left leg. Denies pain. Reports swelling to bilateral lower extremities. No fever.. Historical: - Allergies: 12:25 PENICILLINS; mb9 12:25 PENICILLINS; kj2 - PMHx: 12:25 Atrial Fib; caridac stent; CHF; Diabetes - NIDDM; Hypercholesterolemia; Hypertension; mb9 12:25 Atrial Fib; caridac stent; CHF; Diabetes - NIDDM; Hypercholesterolemia; Hypertension; kj2 - PSHx: 12:25 cardiac stent; mb9 12:25 cardiac stent; kj2 - Immunization history:: Adult Immunizations up to date, Adult Immunizations unknown. - Infectious Disease History:: Denies. Denies. - Social history:: Smoking status: Patient denies any tobacco usage or history of. Smoking status: Patient denies any tobacco usage or history of. - Family history:: not pertinent. - Hospitalizations: : No recent hospitalization is reported. ROS: 12:34 Constitutional: Negative for fever, chills, and weight loss, Cardiovascular: Negative rn for chest pain, palpitations Respiratory: Negative for shortness of breath, cough, wheezing, and pleuritic chest pain, Abdomen/GI: Negative for abdominal pain, nausea, vomiting, diarrhea, and constipation, MS/Extremity: Negative for injury, positive for left lower extremity weakness Neuro: Negative for headache, numbness, tingling, and seizure, Exam: 12:34 Constitutional: This is a well developed, well nourished patient who is awake, alert, rn and in no acute distress. Cardiovascular: Irregular rhythm. Regular rate Respiratory: No increased work of breathing, no retractions or nasal flaring. Abdomen/GI: Soft, nontender MS/ Extremity: No cyanosis. Signs of chronic lymphedema bilateral lower extremities with open wounds, no purulence. Neuro: Awake and alert, GCS 15, unable to lift left leg off of bed, falls immediately when lifted. 3 other extremities with 4 out of 5 strength. Normal sensation. 16:46 ECG was reviewed by the Attending Physician. rn Vital Signs: 12:11 BP 185 / 70; Pulse 78; Resp 18; Temp 98.3; Pulse Ox 98% on R/A; kj2 12:21 BP 185 / 70; Pulse 78; Resp 20; Temp 98.3; Pulse Ox 98% on R/A; kj2 14:59 BP 186 / 74; Pulse 88; Resp 18; Pulse Ox 99% on R/A; mb9 17:02 BP 182 / 78; Pulse 90; Resp 18; kj2 MDM: 12:01 Patient medically screened. rn 15:52 Data reviewed: vital signs, nurses notes, lab test result(s), EKG, radiologic studies, rn CT scan, ultrasound, and as a result, I will admit patient. Consideration of Admission/Observation Patient was admitted/placed on observation. Escalation of care including admission/observation considered. Care significantly affected by the following chronic conditions: Diabetes, Hypertension, afib, CHF. Counseling: I had a detailed discussion with the patient and/or guardian regarding the historical points, exam findings, and any diagnostic results supporting the discharge/admit diagnosis, lab results, radiology results, the need for further work-up and treatment in the hospital. ED course: No acute findings and workup. Still cannot lift left leg off of stretcher. Weakness out of proportion to swelling as both legs are swollen and can lift right leg. Will admit for possible stroke workup to hospitalist service.. 05/07 15:03 Order name: Basic Metabolic Panel; Complete Time: 15:32 EDMS 05/07 15:03 Order name: NT PRO-BNP; Complete Time: 15:32 EDMS 05/07 15:03 Order name: CBC with Automated Diff; Complete Time: 15:32 EDMS 08 15:03 Order name: Protime (+INR); Complete Time: 15:44 EDMS 05/07 15:03 Order name: PTT, Activated Partial Thromb; Complete Time: 15:44 EDMS 08 16:29 Order name: CBC with Automated Diff EDMS 05/07 16:29 Order name: CBC with Automated Diff EDMS 05/07 16:29 Order name: Comprehensive Metabolic Panel EDMS 05/07 16:29 Order name: Comprehensive Metabolic Panel EDMS 05/07 16:29 Order name: Iron EDMS 05/07 16:29 Order name: Iron EDMS 05/07 16:29 Order name: Vitamin B12 Level EDMS 05/07 16:29 Order name: Vitamin B12 Level EDMS 05/07 16:31 Order name: Cortisol EDMS 05/07 16:31 Order name: Magnesium EDMS 05/07 16:31 Order name: NT PRO-BNP EDMS 05/07 16:31 Order name: T4 Free EDMS 05/07 16:31 Order name: Thyroid Stimulating Hormone EDMS 05/07 12:49 Order name: Chest Single View; Complete Time: 15:32 EDMS 08 12:49 Order name: Lower Extremity Arterial Bilat; Complete Time: 15:32 EDMS 08 12:50 Order name: Head Brain Wo Cont; Complete Time: 15:32 EDMS 05/07 12:51 Order name: Extrem Venous W Compress Mac; Complete Time: 15:32 EDMS 05/07 16:23 Order name: Lumbar Spine Wo Con EDMS 05/07 16:24 Order name: Brain Wo Cont EDMS 05/07 16:29 Order name: CONS Physician Consult EDMS 05/07 12:03 Order name: IV Start; Complete Time: 15:00 rn 05/07 12:26 Order name: EKG - Nurse/Tech; Complete Time: 12:38 rn EC:46 Rate is 70 beats/min. Rhythm is regular. [place] interval is normal. QRS interval is normal. rn QT interval is normal. No Q waves. T waves are Normal. No ST changes noted. Clinical impression: NSR w/ Non-specific ST/T Changes. Interpreted by me. Reviewed by me. Administered Medications: No medications were administered Disposition Summary: 05/07/24 15:55 Hospitalization Ordered Notes: Hospitalization Status: Observation rn Provider: Joel Garrett rn Location: Telemetry/MedSurg (observation) rn Condition: Stable rn Problem: new rn Symptoms: are unchanged rn Bed/Room Type: Standard rn Room Assignment: 202(05/07/24 16:47) eb Diagnosis - Weakness rn - Unspecified combined systolic (congestive) and diastolic (congestive) heart failure rn - Edema, unspecified rn Forms: - Medication Reconciliation Form rn - SBAR form rn - Leadership Thank You Letter rn Signatures: Dispatcher [employer] EDMS Edouard Farley MD MD rn Brandy Marinelli, Marva Acevedo, RN RN mb9 Anya Estrella, RN RN kj2 Corrections: (The following items were deleted from the chart) 12:49 12:49 Extremity Venous Uni Ltd ordered. EDMS EDMS 16:47 15:55 rn eb 16:59 16:59 Head Brain Wo Cont+CT.RAD.BRZ ordered. EDMS EDMS 16:59 16:59 CBC+H.LAB.BRZ ordered. EDMS EDMS 16:59 16:59 BASIC METABOLIC PANEL+C.LAB.BRZ ordered. EDMS EDMS 16:59 16:59 PROTIME (+INR)+COAG.LAB.BRZ ordered. EDMS EDMS 16:59 16:59 PTT, ACTIVATED+COAG.LAB.BRZ ordered. EDMS EDMS 16:59 16:59 PROBNP+C.LAB.BRZ ordered. EDMS EDMS 16:59 16:59 Extrem Venous W Compression Mac+US.RAD.BRZ ordered. EDMS EDMS 16:59 16:59 Lower Extremity Arterial Bilat+US.RAD.BRZ ordered. EDMS EDMS 16:59 16:59 Chest Single View+RAD.RAD.BRZ ordered. EDMS EDMS
--- NOTE | 2024-05-07 17:15 | ER ---
Nurse's Notes [facility] Name: Julianna Kearns Age: 74 yrs Sex: Male : 1950 Arrival Date: 05/07/2024 Time: 11:59 Bed 17 Private MD: Diagnosis: Weakness;Unspecified combined systolic (congestive) and diastolic (congestive) heart failure;Edema, unspecified Presentation: 05/07 12:11 Chief complaint: EMS states: patient fell unable to get him off the floor, left kj2 leg hurts. Coronavirus screen: Client denies travel out of the [place] in the last 14 days. Ebola Screen: No symptoms or risks identified at this time. Initial Sepsis Screen: Does the patient meet any 2 criteria? No. Patient's initial sepsis screen is negative. Does the patient have a suspected source of infection? No. Patient's initial sepsis screen is negative. Risk Assessment: Do you want to hurt yourself or someone else? Patient reports no desire to harm self or others. Onset of symptoms was May 07, 2024 at 12:17. 12:11 Method Of Arrival: EMS: [facility] kj2 12:11 Acuity: VERONICA 3 kj2 Triage Assessment: 12:17 General: Appears in no apparent distress. Behavior is calm, cooperative. Pain: kj2 Complains of pain in left leg Pain currently is 4 out of 10 on a pain scale. Neuro: Level of Consciousness is awake, alert, obeys commands, Oriented to person, place, time. Cardiovascular: Capillary refill < 3 seconds . Respiratory: Airway is patent Respiratory effort is even, unlabored. GI: No deficits noted. :. Derm: dryness and peeling on lower extremities. Musculoskeletal: Range of motion: limited in limited in left leg/knee. Historical: - Allergies: 12:25 PENICILLINS; mb9 12:25 PENICILLINS; kj2 - PMHx: 12:25 Atrial Fib; caridac stent; CHF; Diabetes - NIDDM; Hypercholesterolemia; Hypertension; mb9 12:25 Atrial Fib; caridac stent; CHF; Diabetes - NIDDM; Hypercholesterolemia; Hypertension; kj2 - PSHx: 12:25 cardiac stent; mb9 12:25 cardiac stent; kj2 - Immunization history:: Adult Immunizations up to date, Adult Immunizations unknown. - Infectious Disease History:: Denies. Denies. - Social history:: Smoking status: Patient denies any tobacco usage or history of. Smoking status: Patient denies any tobacco usage or history of. - Family history:: not pertinent. - Hospitalizations: : No recent hospitalization is reported. Screenin:22 [facility] ED Fall Risk Assessment (Adult) History of falling in the last 3 months, kj2 including since admission No falls in past 3 months (0 pts) Confusion or Disorientation No (0 pts) Intoxicated or Sedated No (0 pts) Impaired Gait No (0 pts). [facility] ED Fall Risk Assessment (Adult) Mobility Assist Device Used No (0 pt) Altered Elimination No (0 pt) Score/Fall Risk Level 0 - 2 = Low Risk. Abuse screen: Denies threats or abuse. Denies injuries from another. Nutritional screening: No deficits noted. Tuberculosis screening: No symptoms or risk factors identified. Assessment: 12:24 General: see triage assessment. kj2 14:01 Reassessment: No changes from previously documented assessment. Patient and/or family mb9 updated on plan of care and expected duration. Pain level reassessed. Patient is alert, oriented x 3, equal unlabored respirations, skin warm/dry/pink. 17:04 Reassessment: Patient appears in no apparent distress at this time. Patient is alert, kj2 oriented x 3, equal unlabored respirations, skin warm/dry/pink. Patient denies pain at this time. Vital Signs: 12:11 BP 185 / 70; Pulse 78; Resp 18; Temp 98.3; Pulse Ox 98% on R/A; kj2 12:21 BP 185 / 70; Pulse 78; Resp 20; Temp 98.3; Pulse Ox 98% on R/A; kj2 14:59 BP 186 / 74; Pulse 88; Resp 18; Pulse Ox 99% on R/A; mb9 17:02 BP 182 / 78; Pulse 90; Resp 18; kj2 ED Course: 12:01 Patient arrived in ED. mb9 12:01 Edouard Farley MD is Attending Physician. rn 12:11 Anya Estrella RN is Primary Nurse. kj2 12:17 Triage completed. kj2 12:26 Patient has correct armband on for positive identification. Bed in low position. Call kj2 light in reach. Provided Education on: call light, fall precautions. 12:28 No provider procedures requiring assistance completed. kj2 12:38 EKG done, by ED staff, reviewed by Edouard Farley MD. mb9 12:48 Missed attempt(s): 22 gauge in right antecubital area. bc6 12:54 Missed attempt(s): 22 gauge Bleeding controlled, band aid applied, catheter tip intact. bc6 12:56 Patient taken to ultrasound. via stretcher. mb9 13:58 Extrem Venous W Compress Mac In Process Unspecified. EDMS 14:14 Lower Extremity Arterial Bilat In Process Unspecified. EDMS 14:37 Head Brain Wo Cont In Process Unspecified. EDMS 14:54 Chest Single View In Process Unspecified. EDMS 14:59 Accessed peripheral vein via ultrasound, utilizing dynamic ultrasound technique using mb9 ,sterile technique, per hospital protocol. Clean \T\ dry. Dressing intact. Good blood return. Flushes easily. 20 g left AC. 15:00 Arm band placed on. mb9 15:00 Initial lab(s) drawn, by me, sent to lab. mb9 15:54 Joel Garrett MD is Hospitalizing Provider. rn 17:39 placed patient on a clean diaper. kj2 18:34 Patient admitted, IV remains in place. kj2 Administered Medications: No medications were administered Medication: 12:24 VIS not applicable for this client. kj2 Outcome: 15:55 Decision to Hospitalize by Provider. rn 18:33 Admitted to Med/surg accompanied by tech, via stretcher, kj2 18:33 Condition: stable 18:33 Instructed on the need for admit, 18:34 Patient left the ED. kj2 Signatures: Dispatcher [employer] EDEdouard Maddox MD MD rn Wilkerson, Marva Acevedo RN RN mb9 Mary Urrutia bc6 Anya Estrella, RN RN kj2 Corrections: (The following items were deleted from the chart) 15:15 14:59 BP 170 / 107; Pulse 88bpm; Resp 18bpm; kj2 mb9
[2024-05-07 19:49] VITALS: BMI 24.4
[2024-05-07] MEDS: ACETAMINOPHEN 500 MG TAB PO PRN (20:30)
[2024-05-07] MEDS: NA CHLORIDE 0.9% 1,000 ML IV SCH (20:31)
[2024-05-07 20:41] LABS: Specific Gravity 1.011 (1.005-1.030); Sqamous Epithelial <5 /HPF (None Seen); Urine Bacteria None Seen /HPF (<20); Urine Bilirubin NEGATIVE (Negative); Urine Blood Trace (Negative); Urine Clarity Clear (Clear); Urine Color Light-Yellow (Yellow); Urine Culture Reflex Order NOT NEEDED; Urine Glucose 4+ (Negative); Urine Ketones NEGATIVE (Negative); Urine Microscopic Reflex YN ORDER UMIC; Urine Nitrite NEGATIVE (Negative); Urine Protein 2+ (Negative); Urine RBC <5 /HPF (None Seen); Urine Urobilinogen Normal (Normal); Urine WBC <5 /HPF (<5)
--- NOTE | 2024-05-08 05:04 | P.HP ---
Certification for Inpatient Patient admitted to: Inpatient With expected LOS: >2 Midnights Patient will require the following post-hospital care: Prison Practitioner: I am a practitioner with admitting privileges, knowledge of patient current condition, hospital course, and medical plan of care. Services: Services provided to patient in accordance with Admission requirements found in Title 42 Section 412.3 of the Code of Federal Regulations Patient History Date of Service: 05/07/24 Reason for admission: Left lower extremity weakness History of Present Illness: Patient is a 74-year-old gentleman who came to the hospital with weakness of the left leg. Patient states she was not able to move the left leg. He normally gets around with a walker or a cane. Patient has bilateral lower extremity edema. Patient also has wounds on the lower extremities which she has cared for at wound healing center. Patient had a couple of falls over the last couple of days and since then he has noticed that his left leg is gotten weaker. He is not able to really move that left leg that well. Imaging studies did not reveal any significant abnormality. Patient does not have any radiculopathy. Patient denies any back pain. However, patient's lower extremities are significantly edematous. Patient is not really able to lift the leg out of the bed really well nor is able to bend his knees. He is able to move his foot [id number] as well as wiggle his toes. Patient is not able to ambulate at this time either. Will go ahead and get further imaging studies with an MRI of the brain and the lumbar spine. Patient be admitted to the hospital for further evaluation. Will get physical therapy evaluation as soon as MRI is completed. Allergies Penicillins Adverse Reaction (Verified 01/24/23 22:00) Hives Home Medications: carvediloL [Coreg*] 25 mg PO BIDWM tab 01/12/24 Apixaban [Eliquis *] 2.5 mg PO BID 01/30/24 Ascorbic Acid [Vitamin C] 500 mg PO DAILY 01/30/24 Aspirin [Aspirin EC] 81 mg PO DAILY 01/30/24 Atorvastatin Calcium [Lipitor*] 40 mg PO BEDTIME 01/30/24 Cyanocobalamin (Vitamin B-12) [Vitamin B-12] 1,000 mcg PO DAILY 01/30/24 Empagliflozin [Jardiance] 10 mg PO DAILY 01/30/24 Ensure High Protein 273 ml PO BID 01/30/24 Ferrous Sulfate 325 mg PO DAILY 01/30/24 Hydralazine [Apresoline*] 100 mg PO BID 01/30/24 Sennosides [Senna] 8.6 mg PO DAILY 01/30/24 Bumetanide [Bumex*] See Rx Instructions .ROUTE .COMPLEX #90 tab 01/31/24 Na Bicarb Tab [Sodium Bicarb 325 MG] 650 mg PO BID #120 tab 01/31/24 - Past Medical/Surgical History Has patient received pneumonia vaccine in the past: Yes Diabetic: Yes -: hypertension -: hyperlipidemia -: Atrial fibrillation -: IDDM -: Coronary artery disease -: Aortic stenosis -: CHF -: Cardiac Catheterization with stent placement -: Right leg surgery Psychosocial/ Personal History: Patient is . - Family History Brother Medical History: Heart disease, Hypertension - Social History Smoking Status: Former smoker Alcohol use: Yes CD- Drugs: No Caffeine use: Yes Place of Residence: Home Review of Systems 10-point ROS is otherwise unremarkable Physical Examination - Vital Signs Temperature: 97.8 F Blood Pressure: 175/79 Pulse: 85 Respirations: 18 Pulse Ox (%): 94 - Physical Exam General: Alert, In no apparent distress, Oriented x3 HEENT: Atraumatic, PERRLA, Mucous membr. moist/pink, EOMI, Sclerae nonicteric Neck: Supple, 2+ carotid pulse no bruit, No LAD, Without JVD or thyroid abnormality Respiratory: Diminished Cardiovascular: Regular rate/rhythm, Normal S1 S2, Systolic murmur Gastrointestinal: Normal bowel sounds, Soft and benign, Non-distended, No tenderness Musculoskeletal: No clubbing, No swelling, No tenderness Integumentary: No rashes Neurological: Normal speech, Normal tone, Sensation intact, Cranial nerves 3-12 intact, Normal affect, Abnormal gait, Abnormal strength Lymphatics: No axilla or inguinal lymphadenopathy - Studies Laboratory Data (last 24 hrs) 05/07/24 05/07/24 05/07/24 14:54 14:54 14:54 WBC 9.00 Hgb 15.6 Hct 50.9 H Plt Count 282 PT 15.0 H INR 1.35 APTT 57.9 H Sodium 137 Potassium 5.0 BUN 43 H Creatinine 2.57 H Glucose 139 H 05/07/24 05/07/24 05/07/24 12:03 12:03 12:03 WBC Cancelled Hgb Cancelled Hct Cancelled Plt Count Cancelled PT Cancelled INR Cancelled APTT Cancelled Sodium Cancelled Potassium Cancelled BUN Cancelled Creatinine Cancelled Glucose Cancelled Assessment & Plan - Problems (Diagnosis) (1) Left leg weakness Current Visit: Yes Status: Acute (2) Bilateral lower extremity edema Current Visit: Yes Status: Acute (3) Aortic stenosis Current Visit: No Status: Acute (4) CHF (congestive heart failure) Current Visit: No Status: Acute Qualifiers: (5) Stented coronary artery Current Visit: No Status: Acute (6) Afib Current Visit: No Status: Chronic Qualifiers: (7) Chronic kidney disease, stage III (moderate) Current Visit: No Status: Chronic Qualifiers: (8) Coronary artery disease Current Visit: No Status: Chronic Qualifiers: (9) Type 2 diabetes mellitus Current Visit: No Status: Chronic Qualifiers: Diabetes mellitus penitentiary insulin use: with long lines operator use Diabetes mellitus complication status: with hyperglycemia Qualified Code(s): E11.65 - Type 2 diabetes mellitus with hyperglycemia; 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 Patient with left leg weakness; MRI of the lumbar spine as well as MRI of the brain to further evaluate the left leg weakness. Patient has had some falls because of the significant weakness in the legs but he is not having any back pain or radiculopathy symptoms. Will continue with current friendly conservative measures and get physical therapy evaluation. Patient and his are refusing transfer for any surgical intervention that may be necessary. They state he is not a surgical candidate because he has severe aortic stenosis. My plan is to put him on some steroids and to continue with physical therapy for further evaluation. 2. Bilateral lower extremity edema; continue with diuresing. Echocardiogram pending. Wound care for the wounds on the lower extremity. 3. PAD which possibly is around the iliac region. Patient may need further angiogram; however, renal function were not tolerated and so we will hold off on this and figure out how to further evaluate as an outpatient 4. History of atrial fibrillation/CAD; continue with cardiac meds. Continue with medication for rate control. 5. Venous stasis wounds to the lower extremity; continue with wound care to both legs. Wound care consultation pending 6. Chronic kidney disease stage IV; patient most likely with diabetic nephropathy. Patient may have nephrotic syndrome. Will check urine protein/creatinine ratio 7. Type 2 diabetes; strict blood sugar control 8. GI and DVT phylaxis Discharge Plan: Home Plan to discharge in: Greater than 2 days - Advance Directives Does patient have a Living Will: No Does patient have a Durable POA for Healthcare: Yes - Code Status/Comfort Care Code Status Assessed: Yes Code Status: Full Code Critical Care: No Time Spent Managing PTS Care (In Minutes): 45
[2024-05-08 05:44] LABS: Absolute Eosinophils 0.4 K/uL (0-0.5); Absolute Lymphocytes (CBC) 0.9 K/uL (0.7-4.9); Absolute Monocytes 0.7 K/uL (0.1-1.3); Absolute Neutrophil 5.1 K/uL (1.8-8.0); Basophils % 0.6 % (0-1.3); Eosinophils % 5.4 % (0-4.4); Hemoglobin 13.4 g/dL (13.6-17.9); Lymphocytes % 12.9 % (15.3-44.8); MCH 26.3 pg (27.0-35.0); MCHC 31.1 g/dL (32.0-36.0); MCV 84.7 fL (80-100); MPV 8.4 fL (7.6-11.3); Monocytes % 9.6 % (3.3-12.3); Neutrophils % 71.5 % (41.7-73.7); Platelets 233 thou/uL (152-406); RBC Red Blood Cell Count 5.07 M/uL (4.33-5.43); Red Cell Distribution Width 18.6 % (12.1-15.2)
[2024-05-08 06:11] LABS: Magnesium 2.3 mg/dL (1.6-2.4)
--- NOTE | 2024-05-08 06:25 | P.PN ---
Date of Service: 05/08/24 Subjective reports left lower extremity, generalized weakness, PT to eval Fall precautions Review of Systems 10-point ROS is otherwise unremarkable Physical Examination - Vital Signs reviewed - Physical Exam General: Alert, In no apparent distress, Oriented x3 HEENT: Atraumatic, PERRLA, Mucous membr. moist/pink, EOMI, Sclerae nonicteric Neck: Supple, 2+ carotid pulse no bruit, No LAD, Without JVD or thyroid abnormality Respiratory: Diminished Cardiovascular: Regular rate/rhythm, Normal S1 S2, Systolic murmur, lower extremity edema Gastrointestinal: Normal bowel sounds, Soft and benign, Non-distended, No tenderness Musculoskeletal: No clubbing, No swelling, No tenderness, left lower extremity weakness Integumentary: No rashes Neurological: Normal speech, Normal tone, Sensation intact, Cranial nerves 3-12 intact, Normal affect, Abnormal gait, Abnormal strength Lymphatics: No axilla or inguinal lymphadenopathy Assessment & Plan - Problems (Diagnosis) Left leg weakness Peripheral arterial disease History of falls Current Visit: Yes Status: Acute Bilateral lower extremity edema Current Visit: Yes Status: Acute Aortic stenosis Current Visit: No Status: Acute CHF (congestive heart failure) Current Visit: No Status: Acute Qualifiers: Stented coronary artery Current Visit: No Status: Acute Afib Current Visit: No Status: Chronic Qualifiers: Chronic kidney disease, stage III (moderate) Current Visit: No Status: Chronic Qualifiers: Coronary artery disease Current Visit: No Status: Chronic Qualifiers: Type 2 diabetes mellitus Current Visit: No Status: Chronic Qualifiers: Diabetes mellitus residential insulin use: with residential use Diabetes mellitus complication status: with hyperglycemia Qualified Code(s): E11.65 - Type 2 diabetes mellitus with hyperglycemia; Z79.4 - 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 Patient with left leg weakness; MRI of the lumbar spine as well as MRI of the brain to further evaluate the left leg weakness. Patient has had some falls because of the significant weakness in the legs but he is not having any back pain or radiculopathy symptoms. Will continue with current friendly conservative measures and get physical therapy evaluation. Patient and his are refusing transfer for any surgical intervention that may be necessary. They state he is not a surgical candidate because he has severe aortic stenosis. My plan is to put him on some steroids and to continue with physical therapy for further evaluation. 2. Bilateral lower extremity edema; continue with diuresing. Echocardiogram pending. Wound care for the wounds on the lower extremity. 3. PAD which possibly is around the iliac region. Patient may need further angiogram; however, renal function were not tolerated and so we will hold off on this and figure out how to further evaluate as an outpatient 4. History of atrial fibrillation/CAD; continue with cardiac meds. Continue with medication for rate control. 5. Venous stasis wounds to the lower extremity; continue with wound care to both legs. Wound care consultation pending 6. Chronic kidney disease stage IV; patient most likely with diabetic nephropathy. Patient may have nephrotic syndrome. Will check urine protein/creatinine ratio 7. Type 2 diabetes; strict blood sugar control 8. GI and DVT phylaxis 9. Cardiology consult for peripheral artery disease follow-up outpatient 10. History of falls, fall precaution Discharge Plan: Home Plan to discharge in: Greater than 2 days - Advance Directives Does patient have a Living Will: No Does patient have a Durable POA for Healthcare: Yes - Code Status/Comfort Care Code Status Assessed: Yes Code Status: Full Code Critical Care: No Time Spent Managing PTS Care (In Minutes): 35
[2024-05-08 06:27] LABS: Albumin 2.3 g/dL (3.4-5.0); Albumin/Globulin Ratio 0.5 (1.1-1.8); Anion Gap 9.5 mEq/L (5.0-15.0); Bilirubin Total 0.3 mg/dL (0.2-1.0); Globulin 4.6 g/dL (2.3-3.5); Potassium 4.5 mEq/L (3.5-5.1); Protein, Total 6.9 g/dL (6.4-8.2)
[2024-05-08] MEDS: dexAMETHasone 4 MG/ML VIAL IV SCH (06:47)
--- NOTE | 2024-05-08 11:02 | RAD REPORT ---
EXAM DESCRIPTION: MRI - Brain Wo Cont - 05/08/2024 10:35 am CLINICAL HISTORY: CVA Headache, drowsiness COMPARISON: Head Brain Wo Cont dated 05/07/2024 TECHNIQUE: Multi-sequence, multiplanar MR imaging of the brain was performed without contrast. FINDINGS: No intracranial hemorrhage, hydrocephalus or extra-axial fluid collections.Advanced conflu ent T2/FLAIR hyperintensity in the periventricular and deep white matter is present compatible with c hronic microvascular ischemic changes. No edema or shift of midline structures. No findings to suspec t brain mass. DWI is negative for acute CVA. Midline structures are normally formed. Opacification right maxillary antrum. Paranasal sinuses/ mastoids otherwise clear. IMPRESSION: Negative for acute CVA or other acute intracranial process.
--- NOTE | 2024-05-08 11:05 | RAD REPORT ---
EXAM DESCRIPTION: MRI - Lumbar Spine Gregg Fuller- 05/08/2024 10:35 am CLINICAL HISTORY: Left leg weakness COMPARISON: No comparisons FINDINGS: Mild anterior wedge compression deformity affects L2. This appears slightly edematous brijesh g the superior endplate which could indicate subacute time frame. No aggressive marrow pattern is observed. The conus medullaris terminates at a normal level. No thickening of the cauda equina or clumping of n erve roots seen. L1-2 level: No significant findings. L2-3 level: Posterior disc bulge asymmetric to the left is present with mild facet and ligament flavu m hypertrophy. No canal or foraminal stenosis of significance. L3-4 level: Mild facet hypertrophy. L4-5 level: Mild posterior disc bulge with mild facet and ligamentum flavum hypertrophy. No significa nt canal or foraminal stenosis. L5-S1 level: Mild posterior disc bulge with mild facet and ligamentum flavum hypertrophy, greater on the right mild narrowing both exit foramina seen. IMPRESSION: Mild L2 compression deformity is present. This is probably subacute in timeframe and los s of vertebral body height is estimated at 10%. No canal compromise. Mild lumbar spondylosis is present elsewhere. No severe canal or foraminal stenosis seen.
[2024-05-08] MEDS: LABETALOL 20 MG/4ML SYRINGE IV PRN (21:57)
--- NOTE | 2024-05-09 06:38 | P.DS ---
Admission Date: 05/07/24 Discharge Date: 05/10/24 Disposition: TRANSFER TO SNF - REHAB Discharge Condition: GOOD Reason for Admission: Left lower extremity weakness Brief History of Present Illness: Patient is a 74-year-old gentleman who came to the hospital with weakness of the left leg. Patient states she was not able to move the left leg. He normally gets around with a walker or a cane. Patient has bilateral lower extremity e fidel. Patient also has wounds on the lower extremities which she has cared [facility] at [facility]. Patient had a couple of falls over the last couple of days and since then he has noticed that his left leg is gotten weaker. He is not able to really move that left leg that well. Imaging studies did not reveal any significant abnormality. Patient does not have any radiculopathy. Patient denies any back pain. However, patient's lower extremities are significantly edematous. Patient is not really able to lift the leg out of the bed really well nor is able to bend his knees. He is able to move his foot [id number] as well as wiggle his toes. Patient is not able to ambulate at this time either. Will go ahead and get further imaging studies with an MRI of the brain and the lumbar spine. Patient be admitted to the hospital for further evaluation. Will get physical therapy evaluation as soon as MRI is completed. - Physical Exam General: Alert, In no apparent distress, Oriented x3 HEENT: Atraumatic, PERRLA, Mucous membr. moist/pink, EOMI, Sclerae nonicteric Neck: Supple, 2+ carotid pulse no bruit, No LAD, Without JVD or thyroid abnormality Respiratory: Diminished Cardiovascular: Regular rate/rhythm, Normal S1 S2, Systolic murmur Gastrointestinal: Normal bowel sounds, Soft and benign, Non-distended, No tenderness Musculoskeletal: No clubbing, No swelling, No tenderness Integumentary: No rashes Neurological: Normal speech, Normal tone, Sensation intact, Cranial nerves 3-12 intact, Normal affect, Abnormal gait, Abnormal strength Lymphatics: No axilla or inguinal lymphadenopathy Hospital Course: 74-year-old gentleman who came to the hospital with weakness of the left leg. Patient states she was not able to move the left leg. He normally gets around with a walker or a cane. Patient has bilateral lower extremity edema. Patient also has wounds on the lower extremities which [facility] Patient had a couple of falls over the last couple of days and since then he has noticed that his left leg is gotten weaker. MRI shows Mild lumbar spondylosis. Brain MRI negative for acute CVA. Doppler of the bilateral lower extremity showed negative for DVT, PAD will need angiogram with close renal monitoring after discharge.. He will need to follow-up with cardiology after discharge. He was evaluated by physical therapy and patient, tolerating diet, stable to [facility] to [facility]. Prescription medications at discharge dexamethasone 2 mg p.o. twice daily for 6 days Neurontin 100 mg 1 p.o. 3 times daily 30 days Norvasc 10 mg Protonix 40 p.o. daily Assessment Left leg weakness Peripheral arterial [id number] with cardiology after discharge-Patient may need further angiogram; however, renal function were not tolerated - discharged on Neurontin-on Eliquis MRI lumbar spine IMPRESSION: Mild L2 compression deformity is present. This is probably subacute in timeframe and loss of vertebral body height is estimated at 10%. No canal compromise.Mild lumbar spondylosis is present elsewhere. No severe canal or foraminal stenosis seen. Brain MRI negative for acute CVA History of atrial fibrillation CAD, resume meds-resume home Eliquis at discharge CKD stage IV follow-up with nephrology after discharge GOAL: Clear understanding of disease process INSTRUCTIONS: Physician Discharge Instructions: -[facility] to [facility] -Follow-up with cardiology after discharge for PAD -Follow-up with nephrology after discharge for CKD stage III-IV -Follow-up with PCP in 1 to 2 weeks -Please call Dr. Garrett at [phone] if any questions regarding hospital stay -Please call nursing station at [phone] if any nursing or medication questions -Return to the emergency room if symptoms worsen Diet: ADA, low sodium Activity: Fall precautions Vital Signs/Physical Exam: Temp Pulse Resp BP Pulse Ox 98.0 F 69 16 181/75 H 98 05/09/24 04:00 05/09/24 05:34 05/09/24 04:00 05/09/24 05:34 05/09/24 04:00 Laboratory Data at Discharge: WBC 7.20 thou/uL (4.3-10.9) 05/08/24 05:15 Hgb 13.4 g/dL (13.6-17.9) L D 05/08/24 05:15 Hct 43.0 % (39.6-49.0) 05/08/24 05:15 Plt Count 233 thou/uL (152-406) 05/08/24 05:15 PT 15.0 SECONDS (9.4-12.5) H 05/07/24 14:54 INR 1.35 05/07/24 14:54 APTT 57.9 SECONDS (24.3-36.9) H 05/07/24 14:54 Sodium 139 mEq/L (136-145) 05/08/24 05:27 Potassium 4.5 mEq/L (3.5-5.1) 05/08/24 05:27 BUN 38 mg/dL (7-18) H 05/08/24 05:27 Creatinine 2.22 mg/dL (0.70-1.30) H 05/08/24 05:27 Glucose 131 mg/dL (74-106) H 05/08/24 05:27 Magnesium 2.3 mg/dL (1.6-2.4) 05/08/24 05:27 Total Bilirubin 0.3 mg/dL (0.2-1.0) 05/08/24 05:27 AST 21 U/L (15-37) 05/08/24 05:27 ALT 15 U/L (16-61) L 05/08/24 05:27 Alkaline Phosphatase 64 U/L (45-117) 05/08/24 05:27 Home Medications: Apixaban [Eliquis *] 5 mg PO BID 01/30/24 Ascorbic Acid [Vitamin C] 500 mg PO DAILY 01/30/24 Aspirin [Aspirin EC] 81 mg PO DAILY 01/30/24 Atorvastatin Calcium [Lipitor*] 80 mg PO BEDTIME 01/30/24 Cyanocobalamin (Vitamin B-12) [Vitamin B-12] 1,000 mcg PO DAILY 01/30/24 Empagliflozin [Jardiance] 25 mg PO DAILY 01/30/24 Ferrous Sulfate 324 mg PO DAILY 01/30/24 Sennosides [Senna] 8.6 mg PO DAILY 01/30/24 Bumetanide [Bumex*] 1 mg PO DAILY 05/09/24 Ergocalciferol (Vitamin D2) [Vitamin D2] 50,000 unit PO EVERY 7TH DAY 05/09/24 Insulin Glargine-Yfgn 10 unit SQ DAILY 05/09/24 Melatonin 5 mg PO BEDTIME 05/09/24 Metoprolol Succinate [Toprol Xl*] 50 mg PO BEDTIME 05/09/24 Amlodipine [Norvasc*] 10 mg PO DAILY #30 tab 05/10/24 Gabapentin [Neurontin*] 100 mg PO TID #90 cap 05/10/24 Hydralazine [Apresoline*] 50 mg PO TID tab 05/10/24 Pantoprazole [Protonix Tab] 40 mg PO DAILY #30 tab 05/10/24 Vits A and D/White Pet/Lanolin [A and D Ointment] 1 laquita TP BID #1 tube 05/10/24 dexAMETHasone [Dexamethasone] 2 mg PO BID #12 tab 05/10/24 New Medications: Vits A and D/White Pet/Lanolin [A and D Ointment] 1 laquita TP BID #1 tube dexAMETHasone [Dexamethasone] 2 mg PO BID #12 tab Gabapentin [Neurontin*] 100 mg PO TID #90 cap Amlodipine [Norvasc*] 10 mg PO DAILY #30 tab Pantoprazole [Protonix Tab] 40 mg PO DAILY #30 tab Physician Discharge Instructions: -DC IV and DC to custodial -Follow-up with PCP in 1 to 2 weeks -Follow-up with Neurology in 1 to 2 weeks -Follow-up with [facility] in 1-2 weeks -Please call Dr. Garrett at [phone] if any questions regarding hospital stay -Please call nursing station at [phone] if any nursing or medication questions -Return to the emergency room if symptoms worsen Followup: Bassam Donis MD [Primary Care Provider] - Time spent managing pt's care (in minutes): 45
[2024-05-09] MEDS: GABAPENTIN 100 MG CAP PO SCH (11:46)
[2024-05-09] MEDS ORDERED: GABAPENTIN 100 MG CAP PO SCH (14:00)
[2024-05-09] MEDS: METOPROLOL XL 50 MG TAB PO SCH (20:19)
[2024-05-09] MEDS: HYDRALAZINE HCL 25 MG TABLET PO SCH (20:19)
[2024-05-09] MEDS: MELATONIN 5 MG TABLET PO SCH (20:20)
--- NOTE | 2024-05-10 05:51 | P.PN ---
Date of Service: 05/09/24 Subjective No overnight complaints, Ambulating with physical therapy, Review of Systems 10-point ROS is otherwise unremarkable Physical Examination - Vital Signs reviewed - Physical Exam General: Alert, In no apparent distress, Oriented x3, afebrile HEENT: Atraumatic, PERRLA, Mucous membr. moist/pink, EOMI, Sclerae nonicteric Neck: Supple, 2+ carotid pulse no bruit, No LAD, Without JVD or thyroid abnormality Respiratory: Diminished Cardiovascular: Regular rate/rhythm, Normal S1 S2, Systolic murmur, edema Gastrointestinal: Normal bowel sounds, Soft and benign, Non-distended, No tenderness Musculoskeletal: No clubbing, No swelling, No tenderness, left lower extremity weakness Integumentary: No rashes Neurological: Normal speech, Normal tone, Sensation intact, Cranial nerves 3-12 intact, Normal affect, Abnormal gait, Abnormal strength Lymphatics: No axilla or inguinal lymphadenopathy Assessment & Plan - Problems (Diagnosis) Left leg weakness Peripheral arterial disease History of falls Current Visit: Yes Status: Acute Bilateral lower extremity edema Current Visit: Yes Status: Acute Aortic stenosis Current Visit: No Status: Acute CHF (congestive heart failure) Current Visit: No Status: Acute Qualifiers: Stented coronary artery Current Visit: No Status: Acute Afib Chronic anticoagulation Current Visit: No Status: Chronic Qualifiers: Chronic kidney disease, stage III (moderate) Current Visit: No Status: Chronic Qualifiers: Coronary artery disease Current Visit: No Status: Chronic Qualifiers: Type 2 diabetes mellitus Current Visit: No Status: Chronic Qualifiers: Diabetes mellitus fdc insulin use: with machine long goods helper use Diabetes mellitus complication status: with hyperglycemia Qualified Code(s): E11.65 - Type 2 diabetes mellitus with hyperglycemia; 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 Patient with left leg weakness; MRI of the lumbar spine as well as MRI of the brain to further evaluate the left leg weakness. Patient has had some falls because of the significant weakness in the legs but he is not having any back pain or radiculopathy symptoms. Will continue with current friendly conservative measures and get physical therapy evaluation. Patient and his are refusing transfer for any surgical intervention that may be necessary. They state he is not a surgical candidate because he has severe aortic stenosis. My plan is to put him on some steroids and to continue with physical therapy for further evaluation. 2. Bilateral lower extremity edema; continue with diuresing. Echocardiogram pending. Wound care for the wounds on the lower extremity. 3. PAD which possibly is around the iliac region. Patient may need further angiogram; however, renal function were not tolerated and so we will hold off on this and figure out how to further evaluate as an outpatient 4. History of atrial fibrillation/CAD; continue with cardiac meds. Continue with medication for rate control. Eliquis 5. Venous stasis wounds to the lower extremity; continue with wound care to both legs. Wound care consultation pending 6. Chronic kidney disease stage IV; patient most likely with diabetic nephropathy. Patient may have nephrotic syndrome. Will check urine protein/creatinine ratio 7. Type 2 diabetes; strict blood sugar control 8. GI and DVT phylaxis 9. Cardiology consult for peripheral artery disease follow-up outpatient angiogram Discharge Plan: Home Plan to discharge in: Greater than 2 days - Advance Directives Does patient have a Living Will: No Does patient have a Durable POA for Healthcare: Yes - Code Status/Comfort Care Code Status Assessed: Yes Code Status: Full Code Critical Care: No Time Spent Managing PTS Care (In Minutes): 35
[2024-05-10] MEDS: INSULIN GLARGINE 100 UNIT/ML SQ SCH (08:38)
[2024-05-10] MEDS: BUMETANIDE 1 MG TABLET PO SCH (08:38)
[2024-05-10 09:20] VITALS: O2SAT 95
[2024-05-10 12:46] VITALS: TEMP 97.7
[2024-05-10] MEDS: HYDRALAZINE HCL 20 MG/ML VIAL IV ONE (14:16)
[2024-05-10] MEDS: HYDRALAZINE HCL 25 MG TABLET PO SCH (14:17)
[2024-05-10 15:08] VITALS: BP 140/65
== END 2024-05-10 16:05 | DRG 300 ==
LOC: ER 11:59 → 2ND 16:22
PROVIDERS: ADMIT Hospitalist; ATTEND Hospitalist
DX: E11.51 Type 2 diabetes mellitus with diabetic peripheral angiopathy without gangrene (principal); I13.0 Hypertensive heart and chronic kidney disease with heart failure and stage 1 through stage 4 chronic kidney disease, or unspecified chronic kidney disease; I48.20 Chronic atrial fibrillation, unspecified; N18.4 Chronic kidney disease, stage 4 (severe); M47.816 Spondylosis without myelopathy or radiculopathy, lumbar region; I50.9 Heart failure, unspecified; E11.22 Type 2 diabetes mellitus with diabetic chronic kidney disease; E11.65 Type 2 diabetes mellitus with hyperglycemia; I35.0 Nonrheumatic aortic (valve) stenosis; I87.8 Other specified disorders of veins; E78.00 Pure hypercholesterolemia, unspecified; I25.10 Atherosclerotic heart disease of native coronary artery without angina pectoris; R60.0 Localized edema; R29.6 Repeated falls; Z79.4 Long term (current) use of insulin; Z88.0 Allergy status to penicillin; Z95.5 Presence of coronary angioplasty implant and graft; Z91.81 History of falling; Z79.82 Long term (current) use of aspirin; Z79.01 Long term (current) use of anticoagulants; Z79.899 Other long term (current) drug therapy; Z87.891 Personal history of nicotine dependence; W19.XXXA Unspecified fall, initial encounter; Y93.9 Activity, unspecified; Y92.9 Unspecified place or not applicable; Y99.9 Unspecified external cause status
CPT/HCPCS: 36415; 70450; 70551; 71045; 72148; 80048; 80053; 81001; 82533; 82607; 82947; 83540; 83735; 83880; 84439; 84443; 85025; 85610; 85730; 93005; 93925; 93970; 97110; 97116; 97161; 97530; 99285; J0360; J1100; J7030

== ENCOUNTER 2024-06-13 13:41 | Inpatient (IN) | payer OTHER ==
--- OUTSIDE RECORDS SUMMARY | 2024-06-13 13:44 | XMS REPORT | Continuity of Care Document ---
Author Name Unknown Address [address] [facility]. [address] [facility] Address [address] [facility] 1 495 [place] [address] Care Team Providers Care Director Of Manufacturing Name Role Phone KAPIL DONIS Primary Care Physician UnavailKapil Landaverde Attending Clinician Unavailable Michael Orozco Attending Clinician Loc Alcocer RN, Jose Lazo Attending Clinician Unavail Romel Martinez Attending Clinician [phone] Starla Tafoya MD Attending Clinician [phone] Kel Yin MD Attending Clinician [phone] KEL YIN Attending Clinician Unavailable Brissa Reinoso Attending Clinician Unavaila Chad Ospina Attending Clinician Unavailable Physician, No Primary or Family Admitting Clinic joe Unavailable Starla Tafoya MD Admitting Clinician [phone] STARLA TAFOYA Admitting Clinician Unavailable Payers Payer Name Policy Type Policy Number Effective Date Expirati on Date Source [place] [id number] [facility] Problems Condition Name Condition Details Condition Category Status Onset Date Resolution Date Last Treatment Date Treating Clinician Comments Source Nausea and vomiting in adult Nausea and vomiting in adult Disease Active 03-08 00:00: 00 [facility] MULLER (dyspnea on exertion) MULLER (dyspnea on exertion) Disease Active 03-08 00:00: 00 [facility] 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[place] heart with angina pectoris Disease Active 03-08 00:00: 00 [facility] Dyslipidem ia Dyslipidem ia Disease Active 03-08 00:00: 00 [facility] Uncontroll ed hypertensi on Uncontroll ed hypertensi on Disease Active 03-08 00:00: 00 [facility] Chronic heart failure with preserved ejection fraction Chronic heart failure with preserved ejection fraction Disease Active 03-08 00:00: 00 [facility] PAF (paroxysma l atrial fibrillati on) PAF (paroxysma l atrial fibrillati on) Disease Active 03-08 00:00: 00 [facility] Type 2 diabetes mellitus with other specified complicati on Type 2 diabetes mellitus with other specified complicati on Disease Active 03-08 00:00: 00 [facility] Elevated troponin I level Elevated troponin I level Disease Active 03-08 00:00: 00 [facility] Angina of effort Angina of effort Disease Active 02-17 00:00: 00 [facility] [id number] ED (erectile dysfunctio n) of organic origin Problem Active [facility] [id number] Prostate nodule Problem Active [facility] [id number] Urge incontinen ce Problem Active [facility] [id number] Lower urinary tract symptoms (LUTS) Problem Active [facility] Allergies, Adverse Reactions, Alerts Allergy Name Allergy Type Status Severity Reaction(s) Onset Date Inactive Date Treating Clinician Comments Source Penicill ins DA Active SV HIVES 8-05 00:00: 00 EMILEE miller [facility] Penicill ins Propensi ty to adverse reaction s Active Rash 02-17 00:00: 00 [facility] PENICILL INS Drug Class Active Rash 02-17 00:00: 00 [facility] Social History Social Habit Start Date Stop Date Quantity Comments Source History of tobacco use Passive smoker [facility] History SDOH [facility]OH Alcohol Binge [facility] History SDOH Social Connections Get Together [facility] History SDOH Social Connections [facility] History SDOH Social Connections Membership [facility] History SDOH Social Connections Meetings [facility] Tobacco use and exposure 2023-03-08 00:00:00 2023-03-08 00:00:00 Smokeless tobacco non-user [facility] Alcohol intake 2023-03-08 00:00:00 2023-03-08 00:00:00 3 /d [facility] History SDOH Alcohol Frequency 2023-03-08 00:00:00 2023-03-08 00:00:00 1 [facility] History SDOH Social Connections Phone 2023-03-08 00:00:00 2023-03-08 00:00:00 5 [facility] History SDOH Social Connections Living 2023-03-08 00:00:00 2023-03-08 00:00:00 3 [facility] History SDOH Financial 2023-03-08 00:00:00 2023-03-08 00:00:00 5 [facility] History SDOH Food Worry 2023-03-08 00:00:00 2023-03-08 00:00:00 1 [facility] History SDOH Food Scarcity 2023-03-08 00:00:00 2023-03-08 00:00:00 1 [facility] History SDOH Transport Med 2023-03-08 00:00:00 2023-03-08 00:00:00 2 [facility] History SDOH Transport Non-Med 2023-03-08 00:00:00 2023-03-08 00:00:00 2 [facility] History SDOH Housing Unable to Pay 2023-03-08 00:00:00 2023-03-08 00:00:00 2 [facility] History SDOH Housing Places Lived 2023-03-08 00:00:00 2023-03-08 00:00:00 1 [facility] History SDOH Housing Homeless Last Year 2023-03-08 00:00:00 2023-03-08 00:00:00 2 [facility] Tobacco Comment 2023-03-08 00:00:00 2023-03-08 00:00:00 quit smoking 20 yrs ago [facility] Sex Assigned At 1950 00:00:00 1950 00:00:00 [facility] Smoking Status Start Date Stop Date Source Ex-smoker 2023-03-08 00:00:00 2023-03-08 [facility] Ordered Medication Name Filled Medication Name Start Date Stop Date Current Medication? Ordering Clinician Indication Dosage Frequency Signature (SIG) Comments Components Source insulin glargine 100 unit/mL injection 03-10 00:00: 00 Yes [id number] 15U inject 15 Units under the skin in the morning. [facility] amLODIPine 10 mg tablet 03-10 00:00: 00 04-10 04:59 :00 No [id number] 10mg Take 1 tablet by mouth in the morning for 30 days. [facility] metoprolol succinate XL 50 mg 24 hr tablet 03-10 00:00: 00 04-10 04:59 :00 No [id number] 50mg Take 1 tablet by mouth in the morning for 30 days. [facility] glimepiride (AMARYL) 4 mg tablet 03-09 19:56: 26 Yes 4mg Take 4 mg by mouth daily with breakfast. [facility] ALPRAZolam (XANAX) 1 mg tablet 03-09 19:56: 26 Yes 1mg Take 1 mg by mouth 3 (three) times daily. [facility] omega-3 fatty acids-vitam in E (FISH OIL) 1,000 mg capsule 03-09 19:56: 26 Yes 1g Take 1 g by mouth daily. [facility] rosuvastati n (CRESTOR) 10 mg tablet 03-09 15:36: 42 03-09 00:00 :00 No 10mg Take 10 mg by mouth at bedtime. [facility] metoprolol succinate XL (TOPROL XL) 50 mg 24 hr tablet 03-09 15:36: 42 03-09 00:00 :00 No 50mg Take 50 mg by mouth daily. [facility] hydrochloro thiazide (ESIDRIX) 25 mg tablet 03-09 15:36: 42 03-09 00:00 :00 No 25mg Take 25 mg by mouth daily. [facility] canaglifloz in (INVOKANA) 300 mg tablet 03-09 15:36: 42 03-09 00:00 :00 No Take by mouth. [facility] metFORMIN (GLUCOPHAGE ) 1,000 mg tablet 03-09 15:36: 42 03-09 00:00 :00 No 1000mg Take 1,000 mg by mouth 2 (two) times daily with meals. [facility] Amlodipine- Olmesartan (SKYLAR) 10-40 mg per tablet 03-09 15:36: 42 03-09 00:00 :00 No Take by mouth. [facility] INSULIN DETEMIR (LEVEMIR FLEXTOUCH SC) 03-09 15:36: 42 03-09 00:00 :00 No inject under the skin. [facility] aspirin 81 mg EC tablet 03-09 15:36: 42 03-09 00:00 :00 No 81mg Take 81 mg by mouth daily. [facility] rosuvastati n (CRESTOR) tablet 10 mg 03-09 02:00: 00 Yes 10mg 10 mg, Oral, QHS, First dose on Mon03/08/23 at 2100, Until Discontinu ed, Routine [facility] aspirin 81 mg EC tablet 03-09 00:00: 00 04-09 04:59 :00 No [id number] 81mg Take 1 tablet by mouth in the morning for 30 days. [facility] hydroCHLORO thiazide 25 mg tablet 03-09 00:00: 00 04-09 04:59 :00 No [id number] 25mg Take 1 tablet by mouth in the morning for 30 days. [facility] metFORMIN 1,000 mg tablet 03-09 00:00: 00 04-09 04:59 :00 No [id number] 1000mg Take 1 tablet by mouth in the morning and 1 tablet in the evening. Take with meals. Do all this for 30 days. [facility] rosuvastati n 10 mg tablet 03-09 00:00: 00 04-09 04:59 :00 No [id number] 10mg Take 1 tablet by mouth at bedtime for 30 days. [facility] sulfur hexafluorid e microsphr (LUMASON) injection 5 mL 03-08 15:45: 00 03-08 15:45 :00 No [id number] 5mL 5 mL, Intravenou s, ONCE, 1 dose, On Mon03/08/23 at 1045, Routine
manager membership approving Restricted medication : RONALD AVILA [facility] Saline Bubble Study 03-08 15:41: 23 Yes [id number] 6mL 6 mL, Injection, SEE-INSTRU CTIONS, Starting on Mon03/08/23 at 1041, Until Discontinu ed, Routine [facility] insulin glargine (LANTUS U-100) injection 15 Units 03-08 14:15: 00 Yes 15U 15 Units, Subcutaneo us, DAILY, First dose on Mon03/08/23 at 0915, Until Discontinu ed, Routine [facility] amLODIPine (NORVASC) tablet 10 mg 03-08 14:15: 00 Yes 10mg 10 mg, Oral, DAILY, First dose on Mon03/08/23 at 0915, Until Discontinu ed, Routine [facility] metoprolol succinate XL (TOPROL XL) tablet 50 mg 03-08 14:15: 00 Yes 50mg 50 mg, Oral, DAILY, First dose on Mon03/08/23 at 0915, Until Discontinu ed, Routine [facility] hydroCHLORO thiazide (ESIDRIX) tablet 25 mg 03-08 14:15: 00 Yes 25mg 25 mg, Oral, DAILY, First dose on Mon03/08/23 at 0915, Until Discontinu ed, Routine [facility] aspirin EC tablet 81 mg 03-08 14:15: 00 Yes 81mg 81 mg, Oral, DAILY, First dose on Mon03/08/23 at 0915, Until Discontinu ed, Routine [facility] ALPRAZolam (XANAX) tablet 1 mg 03-08 14:04: 36 Yes 1mg 1 mg, Oral, TIDPRN, Starting on Mon03/08/23 at 0904, Until Discontinu ed, Routine, Anxiety [facility] Sliding Scale Insulin - Lispro (HumaLOG) 03-08 13:00: 00 Yes Subcutaneo us, TID MEALS+HS, First dose on Mon03/08/23 at 0800, Until Discontinu ed, Routine [facility] heparin (porcine) injection 5,000 Units 03-08 11:00: 00 Yes 5000U 5,000 Units, Subcutaneo us, Q8H, First dose on Mon03/08/23 at 0600, Until Discontinu ed, Routine [facility] hydralAZINE (APRESOLINE ) injection 10 mg 03-08 09:38: 44 Yes 10mg 10 mg, Slow IV Push, Q4HPRN, Starting on Mon03/08/23 at 0438, Until Discontinu ed, Routine, DBP=>100; SBP=>180 [facility] glucagon (GLUCAGEN DIAGNOSTIC KIT) injection 1 mg 03-08 09:36: 45 Yes 1mg 1 mg, Intramuscu lar, PRN, Starting on Mon03/08/23 at 0436, Until Discontinu ed, RENETTA, Blood Glucose < or = 70 mg/dL and patient is NPO, unable to swallow or has mental changes. [facility] dextrose 50 % in water (D50W) injection 25 mL 03-08 09:36: 45 Yes 25mL 25 mL, Slow IV Push, PRN, Starting on Mon03/08/23 at 0436, Until Discontinu ed, RENETTA, Blood Glucose < or = 70 mg/dL and patient is NPO, unable to swallow or has mental status changes. [facility] ondansetron (ZOFRAN (PF)) injection 4 mg 03-08 09:36: 24 Yes 4mg 4 mg, Slow IV Push, Q6HPRN, Starting on Mon03/08/23 at 0436, Until Discontinu ed, Routine, Nausea and Vomiting (N/V) [facility] HYDROcodone -acetaminop hen (NORCO 5) 5-325 mg tablet 1 tablet 03-08 09:36: 16 03-10 09:35 :16 No 1{tbl} 1 tablet, Oral, Q6HPRN, Starting on Mon03/08/23 at 0436, Until Mon03/10/23 at 0435, Routine, Pain (scale 4-6) [facility] acetaminoph en (TYLENOL) tablet 650 mg 03-08 09:36: 10 Yes 650mg 650 mg, Oral, Q6HPRN, Starting on Mon03/08/23 at 0436, Until Discontinu ed, Routine, Pain (scale 1-3), Temp > 38 C [facility] ondansetron (ZOFRAN (PF)) injection 4 mg 03-08 05:45: 00 03-08 05:40 :00 No 4mg 4 mg, Slow IV Push, ONCE, 1 dose, On Mon03/08/23 at 0045, RENETTA [facility] VESIcare 5 MG VESIcare 5 MG [...] Systolic blood pressure 2023-03-10 00:08:00 163 mm[Hg] [facility] Diastolic blood pressure 2023-03-10 00:08:00 90 mm[Hg] [facility] Heart rate 2023-03-10 00:08:00 70 /min [facility] Body temperature 2023-03-10 00:08:00 35.17 Teresa [facility] Respiratory rate 2023-03-10 00:08:00 16 /min [facility] Oxygen saturation in Arterial blood by Pulse oximetry 2023-03-10 00:08:00 90 /min [facility] Body weight 2023-03-09 08:37:00 102.967 kg [facility] BMI 2023-03-09 08:37:00 30.79 kg/m2 [facility] Body height 2023-03-08 09:35:00 182.9 cm [facility] height 2020-12-03 11:15:00 70 [in_i] Commo n [facility] weight 2020-12-03 11:15:00 197 [lb_av] Comm on [facility] temperature 2020-12-03 11:15:00 97.6 [degF] Com mon [facility] bmi 2020-12-03 11:15:00 28.26 kg/m2 Comm on [facility] oximetry 2020-12-03 11:15:00 97 % Commo n [facility] blood pressure systolic 2020-12-03 11:15:00 139 mm[Hg[facility] blood pressure diastolic 2020-12-03 11:15:00 64 mm[Hg] Common [facility] height 2020-08-24 14:00:00 70 [in_i] Commo n [facility] weight 2020-08-24 14:00:00 199.6 [lb_av] Co mmon [facility] temperature 2020-08-24 14:00:00 98.4 [degF] Com mon [facility] bmi 2020-08-24 14:00:00 28.64 kg/m2 Comm on [facility] oximetry 2020-08-24 14:00:00 96 % Commo n [facility] blood pressure systolic 2020-08-24 14:00:00 197 mm[Hg] Common [facility] blood pressure diastolic 2020-08-24 14:00:00 86 mm[Hg] [facility] Procedures Procedure Date / Time Performed Performing Clinician Source POCT GLUCOSE (AUTOMATED) 2023-03-09 21:33:00 Janiya Tafoya [facility] POCT GLUCOSE (AUTOMATED) 2023-03-09 16:39:00 Janiya Tafoya [facility] POCT GLUCOSE (AUTOMATED) 2023-03-09 12:45:00 Janiya Tafoya [facility] PHOSPHORUS 2023-03-09 09:02:00 [facility] MAGNESIUM 2023-03-09 09:02:00 Starla Tafoya [facility] TROPONIN I 2023-03-09 09:02:00 Kel Yin [facility] HEPATIC FUNCTION PANEL ([id number]) (ALB,T.PRO,BILI T,BU/BC,ALT,AST,ALK PHOS) 2023-03-09 09:02:00 Kel Yin [facility] BASIC METABOLIC PANEL (NA, K, CL, CO2, GLUCOSE, BUN, CREATININE, CA) 2023-03-09 09:02:00 Starla Tafoya [facility] CBC WITH DIFF 2023-03-09 09:02:00 Jagdish Martin [facility] N-TERMINAL PRO-BNP 2023-03-09 09:02:00 Kel Yin [facility] POCT GLUCOSE (AUTOMATED) 2023-03-09 02:08:00 Janiya Tafoya fay [facility] TROPONIN I 2023-03-08 22:51:[address] [facility] GLYCOSYLATED HEMOGLOBIN (A1C) 2023-03-08 22:51:00 Jagdish Martin [facility] POCT GLUCOSE (AUTOMATED) 2023-03-08 21:22:00 Janiya Tafoya [facility] POCT GLUCOSE (AUTOMATED) 2023-03-08 16:16:00 Janiya Tafoya fay [facility] TRANSTHORACIC ECHO (TTE) COMPLETE W/ CONTRAST 2023-03-08 14:29[facility] 2023-03-08 12:39:00 Janiya Tafoya [facility] PHOSPHORUS 2023-03-08 11:24:00 Starla Tafoya [facility] TROPONIN I 2023-03-08 11:24:[address] [facility] N-TERMINAL PRO-BNP 2023-03-08 11:24:00 Candi Patel [facility] XR CHEST 1 VW 2023-03-08 06:27:00 Temi Holloway [facility] HB ECG ROUTINE & RHYTHM STRIP 2023-03-08 05:39:37 Temi Holloway [facility] LIPASE 2023-03-08 05:39:00 Temi Holloway [facility] TROPONIN I 2023-03-08 05:39:00 Temi Holloway [facility] THYROID STIMULATING HORMONE 2023-03-08 05:39:00 Starla Tafoya [facility] COMP. METABOLIC PANEL (11316) 2023-03-08 05:39:00 Temi Holloway [facility] LIPID PANEL (10067)(TOTAL CHOLESTEROL, TRIGLYCERIDES, HDL) 2023-03-08 05:39:00 Starla Tafoya [facility] CBC WITH DIFF 2023-03-08 05:39:00 Temi Holloway [facility] GLYCOSYLATED HEMOGLOBIN (A1C) 2023-03-08 05:39:00 [facility] Start Date/Time End Date/Time Encounter Type Admission Type Attending [facility] Care Facility Care Department Encounter ID Source 2021-10-27 12:15:25 Outpatient Donis, Kapil [facility] [id number] [facility] 2021-10-27 12:07:45 Outpatient [facility] [id number] Common [facility] 2023-08-08 10:16:00 2023-08-08 10:16:00 Outpatient MAGDALENE Pittelizabeth Michael [facility] EKG [id number] 03 [facility] 2023-03-10 00:00:00 2023-03-10 00:00:00 Transition of Care Jose Alcocer [address] 1..[id number] [facility] 2023-03-08 00:29:00 2023-03-09 19:46:00 Emergency Romel Montez Jelani Abdullah, Yaman [facility] ..[id number] [facility] 2023-03-08 00:29:00 2023-03-09 19:46:00 Outpatient KEL ALVAREZ [facility] [id number] [facility] 2022-05-31 08:52:00 2022-05-31 08:52:00 Outpatient Brissa Dial [facility] [id number] 47 [facility] 2022-05-11 10:11:00 2022-05-11 10:11:00 Outpatient Chad Rae [facility] [id number] [facility] 2022-05-11 10:11:00 2022-05-11 10:11:00 Outpatient Chad Rae [facility] [id number] 67 [facility] 2020-12-03 00:00:00 2020-12-03 00:00:00 OFFICE VISIT ESTAB PT LEVEL 2 [facility] [id number] [facility] 2020-08-24 00:00:00 2020-08-24 00:00:00 OFFICE VISIT NEW PT LEVEL 4 [facility]LMLC STLMLC [id number] [facility] Results Test Description Test Time Test Comments Results Result Co mments Source [facility] GLUCOSE (AUTOMATED)2023-03-09 16:43:52* Test Item Value Reference Range Interpretation Comme nts POCT GLU (test code = 2963911939) 138 mg/dL 70-110 H Lab Interpretation (test cod e = 09985-0) Abnormal [facility] GLUCOSE (AUTOMATED)2023-03-09 12:55:44* Test Item Value Reference Range Interpretation Comme nts POCT GLU (test code = 8123349017) 126 mg/dL 70-110 H Lab Interpretation (test cod e = 49264-4) Abnormal [facility] GLUCOSE (AUTOMATED)2023-03-09 02:09:42* Test Item Value Reference Range Interpretation Comme nts POCT GLU (test code = 9119637216) 115 mg/dL 70-110 H Lab Interpretation (test cod e = 07401-7) Abnormal [facility] GLUCOSE (AUTOMATED)2023-03-08 21:32:42* Test Item Value Reference Range Interpretation Comme nts POCT GLU (test code = 8255849530) 266 mg/dL 70-110 H Lab Interpretation (test cod e = 94373-9) Abnormal [facility] GLUCOSE (AUTOMATED)2023-03-08 16:26:44* Test Item Value Reference Range Interpretation Comme nts POCT GLU (test code = 9960789308) 195 mg/dL 70-110 H Lab Interpretation (test cod e = 00636-8) Abnormal [facility] GLUCOSE (AUTOMATED)2023-03-08 12:40:58* Test Item Value Reference Range Interpretation Comme [facility] POCT GLU (test code = 9268220553) 179 mg/dL 70-110 H Lab Interpretation (test cod e = 72665-9) [facility]normal [facility]2023-03-08 11:56:52* Test Item Value Reference Range Interpretation Comme nts TSH (test code = 1369825392) 5.09 See_Comment H Biotin has been reported to cause a negative bias, interpret results relative to patient's use of biotin. [Automated message] The system which generated this result transmitted reference range: 0.45 - 4.70 mIU/L. The reference range was not used to interpret this result as normal/abnormal. Lab Interpretation (test code = 48068-0) [facility]normal [facility]2023-03-08 11:27:39* Test Item Value Reference Range Interpretation Comme [facility] HGB A1C (test code = 4548-4) 9.3 % 4.0-5.7 H TRINIDAD (test code = TRINIDAD) Reference RangesNormal: <5.7%Prediabetes: 5.7 - 6.4%Diabetes: > 6.5% Lab Interpretation (test code = 91072-3) Abnormal [facility] (Total Cholesterol, Triglycerides, HDL)2023-03-08 11:14:15* Test Item Value Reference Range Interpretation Comme nts CHOL (test code = 3462315856) 166 mg/dL 120-200 HDL (test code = 4023660620) 51 mg/dL >=40 HDLC RATIO (test code = 5906965876) 3.3 <=5.0 TRIG (test code = 2238646279) 83 mg/dL 30-170 LDL CHOL (test code = 13022-9) 98 mg/dL <=160 VLDL (test code = 8108496768) 17 mg/dL 5-60 Lab Interpretation (test cod e = 34080-2) [facility] [id number] 06:21:21* Test Item Value Reference Range Interpretation Comme nts TROPONIN I (test code = 0592129955) 0.075 ng/mL <=0.034 H TRINIDAD (test code [...] of biotin. Lab Interpretation (test code = 23555-0) Abnormal [facility]. METABOLIC PANEL (85508)2023-03-08 06:10:20* Test Item Value Reference Range Interpretation Comme nts NA (test code = 1941838793) 135 mmol/L 135-145 K (test code = 9080357238) 4.3 mmol/L 3.5-5.0 CL (test code = 7296027857) 104 mmol/L 98-108 CO2 TOTAL (test code = 3604106041) 26 mmol/L 23-31 AGAP (test code = 7617271106) 5 2-16 BUN (test code = 3582520572) 27 mg/dL 7-23 H GLUCOSE (test code = 6790966451) 243 mg/dL 70-110 H CREATININE (test code = 5010137532) 2.15 mg/dL 0.60-1.25 H TOTAL BILI (test code = 3435830487) 0.8 mg/dL 0.1-1.1 CALCIUM (test code = 7516888313) 8.2 mg/dL 8.6-10.6 L T PROTEIN (test code = 9789543760) 6.0 g/dL 6.3-8.2 L ALBUMIN (test code = 0324770307) 2.5 g/dL 3.5-5.0 L ALK PHOS (test code = 9787831033) 60 U/L 34-122 ALTv (test code = 1742-6) 17 U/L 5-50 AST(SGOT) (test code = 8010351472) 26 U/L 13-40 eGFR (test code = 1898775209) 30.1 mL/min/1.73m2 TRINIDAD (test code = TRINIDAD) [...] imaging tests). Lab Interpretation (test code = 61263-2) [facility] [id number] 06:09:44* Test Item Value Reference Range Interpretation Comme nts LIPASE (test code = 0300711531) 101 U/L 0-220 Lab Interpretation (test cod e = 54560-1) Normal [facility] WITH [id number] 05:51:59* Test Item Value Reference Range Interpretation [...] 31.9 g/dL 31.2-35.0 RDW-SD (test code = 25787-3) 56.7 fL 38.5-51.6 H RDW-CV (test code = 788-0) 19.4 % 12.1-15.4 H PLT (test code = 777-3) 232 See_Comment [Automated messa ge] The system which generated this result transmitted reference range: 150 - 328 10*3/?L. The reference range was not used to interpret this result as normal/abnormal. MPV (test code = 69205-1) 10.5 fL 9.8-13.0 NRBC/100 WBC (test code = 4281669962) 0.0 See_Comment [Automated Transerv ssage] The system which generated this result transmitted reference range: 0.0 - 10.0 /100 WBCs. The reference range was not used to interpret this result as normal/abnormal. NRBC x10^3 (test code = 2115518245) See_Comment [Automated messa ge] The system which generated this result transmitted reference range: 10*3/?L. The reference range was not used to interpret this result as normal/abnormal. GRAN MAT (NEUT) % (test code = 770-8) 68.1 % IMM GRAN % (test code = 0880424202) 0.20 % LYMPH % (test code = 736-9) 20.0 % MONO % (test code = 5905-5) 9.2 % EOS % (test code = 713-8) 1.6 % BASO % (test code = 706-2) 0.9 % GRAN MAT x10^3(ANC) (test code = 8947367430) 3.85 10*3/uL 1.99-6.95 IMM GRAN x10^3 (test code = 2174180878) 0.00-0.06 LYMPH x10^3 (test code = 731-0) 1.13 10*3/uL 1.09-3.23 MONO x10^3 (test code = 742-7) 0.52 10*3/uL 0.36-1.02 EOS x10^3 (test code = 711-2) 0.09 10*3/uL 0.06-0.53 BASO x10^3 (test code = 704-7) 0.05 10*3/uL 0.01-0.09 Lab Interpretation (test code = 86124-8) [facility] [id number] 10:17:00 * Test Item Value Reference Range [...] waivedcomplexity tests. - CTA HEART W CN ART/[id number] 00:00:00 [facility] 1950 Sex: M Name: ALBERT MARQUEZ [facility] Dagmar Jeronimo : 1950 Age/S: 72 / M [address] [place] [address] Blvd Unit #: [id number] Loc: [place] [address] Phys: Brissa Reinoso [facility] Acct: [id number] Dis Date: Status: REG [place] #: [phone] Exam Date: 05/31/2022 1012 FAX #: [phone] Reason: EXAMS: CPT CODE: [id number] CTA HEART W CN ART/GRAFTS 82348 PROCEDURE INFORMATION: Exam: CTA Heart And Coronary [...] 1 Signed Report (CONTINUED) Name: ALBERT MARQUEZ [facility] : 1950 Age/S: 72 / M [address] [place] [address] Unit #: [id number] Loc: [place] [address] Phys: Brissa Reinoso [facility] Acct: [id number] Dis Date: Status: REG CLI PHONE #: [phone] Exam Date: 05/31/2022 1012 FAX #: [phone] Reason: EXAMS: CPT CODE: [id number] CTA HEART W CN ART/GRAFTS 77144 (Continued) mitral annular calcification. PERICARDIUM: No evidence [...] 2 Signed Report (CONTINUED) Name: ALBERT MARQUEZ [facility] : 1950 Age/S: 72 / M [address] [place] [address] Blvd Unit #: [id number] Loc: [place] [address] Phys: Brissa Reinoso [employer] Acct: [id number] Dis Date: Status: REG CLI PHONE #: [phone] Exam Date: 05/31/2022 1012 FAX #: [phone] Reason: EXAMS: CPT CODE: [id number] CTA HEART W CN ART/GRAFTS 78890 (Continued) Small uncomplicated fat containing umbilical hernia. [...] CTA ABD PEL W CONT 2022-05-31 00:00:00 [facility] : 1950 Sex: M Name: ALBERT MARQUEZ [facility] [place] : 1950 Age/S: 72 / M [address] [place] [address] Blvd Unit #: [id number] Loc: M[place]EL [place] [address] Phys: Brissa Reinoso Acct: [id number] Dis Date: Status: MITZY PRUITT #: [phone] Exam Date: 05/31/2022 1012 FAX #: [phone] Reason: 135.0, SEVERE AORTIC STENOSIS. EXAMS: CPT CODE: [id number] CTA ABD PEL W CONT 26174 PROCEDURE INFORMATION: Exam: CTA Heart And Coronary [...] 1 Signed Report (CONTINUED) Name: ALBERT MARQUEZ [facility] : 1950 Age/S: 72 / M [address] [facility] Unit #: [id number] Loc: [place] [address] Phys: Brissa Reinoso [employer] Acct: [id number] D is Date: Status: REG CLI PHONE #: [phone] Exam Date: 05/31/2022 1012 FAX #: [phone] Reason: 135.0, SEVERE AORTIC STENOSIS. EXAMS: CPT CODE: [id number] CTA ABD PEL W CONT 29010 (Continued) mitral annular calcification. PERICARDIUM: No evidence [...] Jeronimo : 1950 Age/S: 72 / M [address] [place] [address] Bl Unit #: [id number] Loc: [place] [address] Phys: Brissa Reinoso Acct: [id number] Dis Date: Status: REG CLI PHONE #: [phone] Exam Date: 05/31/2022 1012 FAX #: [phone] Reason: 135.0, SEVERE AORTIC STENOSIS. EXAMS: CPT CODE: [id number] CTA ABD PEL W CONT 35820 (Continued) Small uncomplicated fat containing umbilical hernia. [...] (1724) PAGE 3 Signed Report- CT ANGIO [id number] 00:00:00[facility] : 1950 Sex: M Name: ALBERT MARQUEZ [facility] Dagmar Jeronimo : 1950 Age/S: 72 / M [address] [place] [address] Blvd Unit #: [id number] Loc: [place] [address] Phys: Brissa Reinoso [employer] Acct: [id number] Dis Date: Status: REG [place] #: [phone] Exam Date: 05/31/2022 1012 FAX #: [phone] Reason: 135.0 , SEVERE AORTICSTENOSIS. EXAMS: CPT CODE: [id number] CT ANGIO CHEST 00179 PROCEDURE INFORMATION: Exam: CTA Heart And Coronary [...] 1 Signed Report (CONTINUED) Name: ALBERT MARQUEZ [facility] : 1950 Age/S: 72 / M [address] [place] [address] Blvd Unit #: [id number] Loc: [place] [address] Phys: Brissa Reinoso [facility] Acct: [id number] Dis Date: Status: REG CLI PHONE #: [phone] Exam Date: 05/31/2022 1012 FAX #: [phone] Reason: 135.0 , SEVERE AORTIC STENOSIS. EXAMS: CPT CODE: [id number] CT ANGIO CHEST 65942 (Continued) mitral annular calcification. PERICARDIUM: No evidence [...] 2 Signed Report (CONTINUED) Name: ALBERT MARQUEZ [facility] : 1950 Age/S: 72 / M [address] [place] [address] Unit #: [id number] Loc: [place] [address] Phys: ChrisstephaniemikaBrissa [employer] Acct: [id number] Dis Date: Status: REG CLI PHONE #: [phone] Exam Date: 05/31/2022 1012 FAX #: [phone] Reason: 135.0 , SEVERE AORTIC STENOSIS. EXAMS: CPT CODE: [id number] CT ANGIO CHEST 16445 (Continued) Small uncomplicated fat containing umbilical hernia. [...] (1723) [id number] Orig Print D/T: S: 05/31/2022 (0779) PAGE 3 Signed ReportGLUCOSE [id number] 09:36:00 * Test Item Value Reference Range Interpretation Comme nts GLUCOSE BEDSIDE (test code = GLUBED) 137 MG/DL 70-110 H Performed by cer lisa glue drier operator at [facility] BASIC METABOLIC [id number] 16:24:00* Test Item Value Reference Range Interpretation [...] = CA) 8.9 mg/dL 8.0-10.5 N PROTHROMBIN [id number] 16:19:00* Test Item Value Reference Range Interpretation [...] Infarction (to prevent recurrent infarct). CBC W/AUTO [id number] 16:09:00* Test Item Value Reference Range Interpretation [...] Notes Date/Time Note Provider Source 2023-08-08 15:06:00 [id number] [facility] [address] [place] [address] PATIENT NAME: ALBERT MARQUEZ ADMIT DATE: 08/08/23 ACCOUNT NO: [id number] ROOM NO: AGE: 73 REPORT TYPE: eECHOCARDIOGRAM REPORT SEX: M ADMITTING PHYSICIAN: ATTENDING PHYSICIAN: DO Alicia [facility]* [address] [place] [address] Transthoracic Echocardiogram Patient: Albert Marquez Study Date: 08/08/2023 BP: Location: [facility] URN: [id number] : 1950 Age: 73 Height: 72 in / 182.9 cm Gender: M Weight: 188.6 lb / 85.7 kg BMI/BSA: 25.6 kg/m 2 / 2.08 m 2 *Ordering Physician: * Michael Orozco *Interpreting Physician: * Osmany Griffith MD *Appeals Writer: * Rachael Melo Indications: CAD. Atrial Fibrillation. [...] Value 05/11/2022 Ref PATIENT NAME: ALBERT MARQUEZ [place] peak v 0.99 m/sec ----- IL peak grad 4 mm Hg ----- Tricuspid [...] 15:05 at 1506 PATIENT NAME: ALBERT MARQUEZ [facility] 2022-06-02 08:57:00 [id number] [place] [address] patient name: albert marquez admit date: 05/31/22 account no: [id number] room no: age: 72 report type: pulmonary function report sex: m admitting physician: attending physician:brissa erinoso study date: full pulmonary function test interpretation spirometry: fvc is 41% of predicted. fev1 is 33% of predicted, no response to bronchodilator. ratio is 59. total lung capacity 77%. rv is 129%. diffusion capacity is 19%. full pulmonary function test: severe copd, gold stage iii. dictated by: dorothy baer md wt: pft:jacques/arianaa/nts dd: 06/02/2022 08:57:29 dt: 06/02/2022 09:52:31 conf#: [id number]/did#: [id number] authenticated by dorothy baer md on 06/06/2022 08:17:48 am electronically signed by dorothy baer md on 06/06/22 at 0817 patient name: albert marquez [facility] 2022-05-11 15:06:00 [facility] ([facility]) clinical note report#:[id number] report status: signed date:05/11/22 time: 1506 patient: albert marquez unit #: [id number] room/bed: : 48 age: 72 sex: m attend: chad valadez md adm dt: 05/11/22 author: ian coates [facility] account manager * all edits or amendments must be made on the electronic/computer document * clinical note note: 72-year-old -djiboutian male with past medical history of hypertension, [...] molina md on 05/24/22 at 0953 rpt #:[id number] end of report [facility] 2022-05-11 15:06:00 [facility] ([facility]) Clinical Note REPORT#:[id number] REPORT STATUS: Signed DATE:05/11/22 TIME: 1506 PATIENT: ALBERT MARQUEZ UNIT #: [id number] ROOM/BED: : 48 AGE: 72 SEX: M ATTEND: Chad Valadez MD ADM AUTHOR: Ian Coates NP * ALL edits or amendments must be made on the electronic/computer document * Clinical Note Note: 72-year-old -Kenyan male with past medical history of hypertension, [...] not want to wait. at 1522 RPT #:[id number] END OF REPORT [facility]"
--- NOTE | 2024-06-13 14:29 | RAD REPORT ---
EXAM: CT brain without contrast HISTORY: Headache, syncope COMPARISON: 05/07/2024 TECHNIQUE: Multiple contiguous axial images were obtained and a CT of the brain without contrast. Sag ittal and coronal reformats were performed. FINDINGS: Moderate brain atrophy with moderate chronic periventricular deep white matter ischemic elie nges. There is no evidence of hydrocephalus, intracranial hemorrhage, or extra-axial fluid collection. The calvarium and overlying soft tissues are unremarkable. Chronic right maxillary sinus opacificatio n.. IMPRESSION: No evidence of acute intracranial abnormality
[2024-06-13 14:41] LABS: Absolute Basophils 0.1 K/uL (0-0.5); Absolute Eosinophils 0.2 K/uL (0-0.5); Absolute Lymphocytes (CBC) 1.2 K/uL (0.7-4.9); Absolute Monocytes 0.7 K/uL (0.1-1.3); Absolute Neutrophil 5.1 K/uL (1.8-8.0); Eosinophils % 2.1 % (0-4.4); Hematocrit 45.7 % (39.6-49.0); Hemoglobin 13.8 g/dL (13.6-17.9); Lymphocytes % 16.6 % (15.3-44.8); MCH 25.7 pg (27.0-35.0); MCHC 30.3 g/dL (32.0-36.0); MCV 84.9 fL (80-100); MPV 7.9 fL (7.6-11.3); Neutrophils % 71.3 % (41.7-73.7); Nucleated Red Blood Cells % 0.1 % (0-0); Platelets 364 thou/uL (152-406); RBC Red Blood Cell Count 5.38 M/uL (4.33-5.43); Red Cell Distribution Width 19.2 % (12.1-15.2)
[2024-06-13 15:01] LABS: ALT/SGPT 47 U/L (16-61); AST/SGOT 35 U/L (15-37); Albumin 2.6 g/dL (3.4-5.0); Albumin/Globulin Ratio 0.5 (1.1-1.8); Alkaline Phosphatase 82 U/L (45-117); BUN Blood Urea Nitrogen 31 mg/dL (7-18); Bicarbonate 28 mEq/L (21-32); Bilirubin Total 0.3 mg/dL (0.2-1.0); Globulin 5.1 g/dL (2.3-3.5); Glomerular Filtration Rate 24 ml/min (=/>90); Glucose Level 186 mg/dL (74-106); Magnesium 2.3 mg/dL (1.6-2.4); NT PRO-BNP 18105 pg/mL (<450); Protein, Total 7.7 g/dL (6.4-8.2); Sodium Level 142 mEq/L (136-145)
[2024-06-13 15:03] LABS: Bilirubin Direct < 0.2 mg/dL (0-0.2); Bilirubin Indirect, Calculated 0.1 mg/dL (0.2-0.8)
[2024-06-13 15:05] LABS: Troponin High Sensitivity 79.2 pg/mL (<58.9)
--- NOTE | 2024-06-13 15:13 | RAD REPORT ---
EXAMINATION: ONE VIEW CHEST XR CLINICAL INDICATION: Male, 74 years old. COPD. TECHNIQUE: 1 View, AP supine, X-ray of the chest was performed. [id number]. COMPARISON: 05/07/2024, 01/30/2024 FINDINGS: Ktjv-jf-wrtxfnlr pulmonary edema is noted. The heart is moderately enlarged in size. Aortic atheroscl erosis. IMPRESSION: Mild to moderate CHF pattern.
--- NOTE | 2024-06-13 15:35 | ER ---
Nurse's Notes [facility] [place] Name: Julianna Kearns Age: 74 yrs Sex: Male : 1950 Arrival Date: 06/13/2024 Time: 13:41 Bed 17 Private MD: Diagnosis: Syncope;CHF exacerbation;Elevated troponin Presentation: 06/13 13:47 Chief complaint: EMS states: Home health nurse toned out EMS for sudden syncopal rs5 episode while laying on recliner. Pt complained of abdominal pain and SOB on scene but symptoms resolved prior to arrival. 13:47 Coronavirus screen: At this time, the client does not indicate any symptoms associated rs5 with coronavirus-19. Ebola Screen: No symptoms or risks identified at this time. Initial Sepsis Screen: Does the patient meet any 2 criteria? No. Patient's initial sepsis screen is negative. Does the patient have a suspected source of infection? No. Patient's initial sepsis screen is negative. Risk Assessment: Do you want to hurt yourself or someone else? Patient reports no desire to harm self or others. Onset of symptoms was June 13, 2024. Care prior to arrival: IV initiated. 20 GA, in the right wrist. 13:47 Method Of Arrival: EMS: [facility] rs5 13:47 Acuity: VERONICA 3 rs5 Historical: - Allergies: 14:22 PENICILLINS; rs5 - PMHx: 14:22 Atrial Fib; caridac stent; CHF; Diabetes - NIDDM; Hypercholesterolemia; Hypertension; rs5 - PSHx: 14:22 cardiac stent; rs5 - Immunization history:: Adult Immunizations up to date. - Infectious Disease History:: Denies. - Social history:: Smoking status: Patient/guardian denies using tobacco, but has a distant history of tobacco abuse. - Family history:: not pertinent. Screenin:50 [facility] ED Fall Risk Assessment (Adult) History of falling in the last 3 months, rs5 including since admission No falls in past 3 months (0 pts) Confusion or Disorientation No (0 pts) Intoxicated or Sedated No (0 pts) Impaired Gait Yes (1 pt) Mobility Assist Device Used Yes (1 pt) Altered Elimination No (0 pt) Score/Fall Risk Level 0 - 2 = Low Risk Oriented to surroundings, Maintained a safe environment. Abuse screen: Denies threats or abuse. Nutritional screening: No deficits noted. Tuberculosis screening: No symptoms or risk factors identified. Assessment: 13:50 General: Appears in no apparent distress. comfortable, Behavior is calm, cooperative. rs5 Pain: Denies pain. Neuro: Level of Consciousness is awake, alert, obeys commands, Oriented to person, place, time, situation. Cardiovascular: Patient's skin is warm and dry. Respiratory: Airway is patent Respiratory effort is even, unlabored, Respiratory pattern is regular, symmetrical. GI: Abdomen is round non-distended, Abd is soft and non tender X 4 quads. : No signs and/or symptoms were reported regarding the genitourinary system. EENT: No signs and/or symptoms were reported regarding the EENT system. Derm: Skin is intact, Skin is pink, warm \T\ dry. Musculoskeletal: Range of motion: limited in lower extremitities bilat Swelling present in lower extremitities bilat. 15:01 Reassessment: Patient and/or family updated on plan of care and expected duration. Pain rs5 level reassessed. Patient is alert, oriented x 3, equal unlabored respirations, skin warm/dry/pink. Patient states feeling better. Patient states symptoms have improved. 16:10 Reassessment: No changes from previously documented assessment. rs5 16:59 Reassessment: Patient and/or family updated on plan of care and expected duration. Pain rs5 level reassessed. Patient is alert, oriented x 3, equal unlabored respirations, skin warm/dry/pink. Vital Signs: 13:47 BP 181 / 84; Pulse 81; Resp 18; Temp 98; Pulse Ox 95% on 3 lpm NC; rs5 16:26 BP 187 / 83; Pulse 77; Resp 17; Pulse Ox 97% on R/A; rs5 16:59 BP 188 / 85; Pulse 71; Resp 17; Pulse Ox 96% on 3 lpm NC; rs5 ED Course: 13:46 Patient arrived in ED. iw 13:46 Shakir Crouch MD is Attending Physician. rt 13:50 Patient has correct armband on for positive identification. Placed in gown. Bed in low rs5 position. Call light in reach. Side rails up X2. 13:50 No provider procedures requiring assistance completed. rs5 13:54 Michele Lewis, RN is Primary Nurse. rs5 14:04 CT Head Brain wo Cont In Process Unspecified. EDMS 14:22 Triage completed. rs5 14:31 XRAY Chest (1 view) In Process Unspecified. EDMS 15:34 Ayush Bishop MD is Hospitalizing Provider. rt 16:33 1633 CM met with patient at the bedside in the ED exam room. Patient identified by name ane and . Demographic sheet confirmed. reports he lives with his [employer] in a 2 story home. DME in the household includes a cane, walker, shower chair,rollator, portable oxygen machine and a CPAP machine. states prior to admission he performs ADLS independently using his walker and only using the oxygen when he feels he needs it. MPOA is in place. Patient states he is unsure of which company he has, but believes it is [facility]. He states a nurse and a PT visit 3 times a week. His preferred discharge plan is to return home and states [employer] will transport him home.CM team will continue to follow and coordinate care. 1747 CM confirmed with Lyudmila from [facility] via [employer] that Mr. Kearns is a current patient. . 17:01 Patient admitted, IV remains in place. rs5 Administered Medications: 15:30 Drug: Furosemide IVP 40 mg IVP once; give over 2 minutes Route: IVP; Site: left rs5 antecubital; 16:01 Follow up: Response: No adverse reaction rs5 Medication: 16:26 VIS not applicable for this client. rs5 Outcome: 15:35 Decision to Hospitalize by Provider. rt 17:00 Admitted to Med/surg rs5 17:00 Condition: stable 17:00 Instructed on the need for admit, Demonstrated understanding of instructions, 17:31 Patient left the ED. rs5 Signatures: Dispatcher [employer] EDMS Leslie Arvizu RN RN iw [place], Ryan, MD MD rt Michele Lewis, RN ERICA rs5 Alma Culp RN RN ane Corrections: (The following items were deleted from the chart) 14:22 14:14 Chief complaint: EMS states: Home health nurse toned out EMS for sudden syncopal rs5 episode while laying on recliner. Pt complains of abdominal pain and SOB but symptoms re rs5
--- NOTE | 2024-06-13 15:35 | EDPHYS ---
Physician Documentation [facility] Name: Julianna Kearns Age: 74 yrs Sex: Male : 1950 Arrival Date: 06/13/2024 Time: 13:41 Bed 17 Private MD: ED Physician Shakir Crouch HPI: 06/13 14:46 This 74 yrs old Black Male presents to ER via EMS with complaints of syncope. rt 14:46 Patient presents to the ED with a syncopal event. Patient was reportedly unconscious rt for 5 minutes. Did have chest pain, shortness of breath preceding that. Patient continues to have some shortness of breath, however, it was improving after a DuoNeb treatment. Patient had brief episode abdominal pain that is since resolved. He denies other acute complaints at this time, symptoms are moderate severity, no other aggravating or elevating factors.. Historical: - Allergies: 14:22 PENICILLINS; rs5 - PMHx: 14:22 Atrial Fib; caridac stent; CHF; Diabetes - NIDDM; Hypercholesterolemia; Hypertension; rs5 - PSHx: 14:22 cardiac stent; rs5 - Immunization history:: Adult Immunizations up to date. - Infectious Disease History:: Denies. - Social history:: Smoking status: Patient/guardian denies using tobacco, but has a distant history of tobacco abuse. - Family history:: not pertinent. ROS: 14:46 Constitutional: Negative for fever, chills, and weight loss, MS/Extremity: Negative for rt injury and deformity, 14:46 Cardiovascular: Positive for chest pain, Negative for edema, 14:46 Respiratory: Positive for shortness of breath, Negative for cough, 14:46 Abdomen/GI: Positive for abdominal pain, Negative for diarrhea, 14:46 Neuro: Positive for loss of consciousness, syncope, Exam: 14:46 Constitutional: This is a well developed, well nourished patient who is awake, alert, rt and in no acute distress. Head/Face: Normocephalic, atraumatic. Chest/axilla: Normal chest wall appearance and motion. Nontender with no deformity. No lesions are appreciated. Cardiovascular: Regular rate and rhythm with a normal S1 and S2. No gallops, murmurs, or rubs. Normal PMI, no JVD. No pulse deficits. Respiratory: Lungs have equal breath sounds bilaterally, clear to auscultation and percussion. No rales, rhonchi or wheezes noted. No increased work of breathing, no retractions or nasal flaring. Abdomen/GI: Soft, non-tender, with normal bowel sounds. No distension or tympany. No guarding or rebound. No evidence of tenderness throughout. Skin: Warm, dry with normal turgor. Normal color with no rashes, no lesions, and no evidence of cellulitis. MS/ Extremity: Pulses equal, no cyanosis. Neurovascular intact. Full, normal range of motion. Neuro: Awake and alert, GCS 15, oriented to person, place, time, and situation. Cranial nerves II-XII grossly intact. Motor strength 5/5 in all extremities. Sensory grossly intact. Cerebellar exam normal. Normal gait. 14:46 ECG was reviewed by the Attending Physician. Vital Signs: 13:47 BP 181 / 84; Pulse 81; Resp 18; Temp 98; Pulse Ox 95% on 3 lpm NC; rs5 16:26 BP 187 / 83; Pulse 77; Resp 17; Pulse Ox 97% on R/A; rs5 16:59 BP 188 / 85; Pulse 71; Resp 17; Pulse Ox 96% on 3 lpm NC; rs5 MDM: 13:46 Patient medically screened. rt 15:35 Differential Diagnosis CHF, ACS, dysrhythmia, intracranial hemorrhage. Data reviewed: rt vital signs, nurses notes, lab test result(s), EKG, radiologic studies. Consideration of Admission/Observation Patient was admitted/placed on observation. Management of patient was discussed with the following: Hospitalist: Agrees to admit. I considered the following discharge prescriptions or medication management in the emergency department Medications were administered in the Emergency Department. See MAR. Independent interpretation of the following test(s) in the Emergency Department X-Ray: My interpretation is Pulmonary edema seen on my interpretation of x-ray images. Care significantly affected by the following chronic conditions: Congestive Heart Failure. Counseling: I had a detailed discussion with the patient and/or guardian regarding the historical points, exam findings, and any diagnostic results supporting the discharge/admit diagnosis, lab results, radiology results, the need for further work-up and treatment in the hospital. Response to treatment: the patient's symptoms have mildly improved after treatment. 06/13 13:47 Order name: Basic Metabolic Panel; Complete Time: 15:07 rt 06/13 13:47 Order name: CBC with Diff; Complete Time: 15:07 rt 06/13 13:47 Order name: LFT's; Complete Time: 15:07 rt 06/13 13:47 Order name: Magnesium; Complete Time: 15:07 rt 06/13 13:47 Order name: NT PRO-BNP; Complete Time: 15:07 rt 06/13 13:47 Order name: Troponin HS; Complete Time: 15:07 rt 06/13 16:16 Order name: Basic Metabolic Panel EDMS 06/13 16:16 Order name: Basic Metabolic Panel EDMS 06/13 16:16 Order name: Basic Metabolic Panel EDMS 06/13 16:16 Order name: Basic Metabolic Panel EDMS 06/13 16:16 Order name: CBC with Automated Diff EDMS 06/13 16:16 Order name: CBC with Automated Diff EDMS 06/13 16:16 Order name: CBC with Automated Diff EDMS 06/13 16:16 Order name: CBC with Automated Diff EDMS 06/13 16:16 Order name: Lipid Profile EDMS 06/13 16:16 Order name: Lipid Profile EDMS 06/13 16:16 Order name: Troponin High Sensitivity EDMS 06/13 16:16 Order name: Troponin High Sensitivity EDMS 06/13 16:16 Order name: Troponin High Sensitivity EDMS 06/13 16:16 Order name: Troponin High Sensitivity EDCT 06/13 13:47 Order name: XRAY Chest (1 view); Complete Time: 15:14 rt 06/13 13:47 Order name: CT Head Brain wo Cont; Complete Time: 14:42 rt 06/13 16:16 Order name: CONS Physician Consult EDCT 06/13 13:47 Order name: Cardiac monitoring; Complete Time: 15:55 rt 06/13 13:47 Order name: EKG - Nurse/Tech; Complete Time: 15:55 rt 06/13 13:47 Order name: IV Saline Lock; Complete Time: 15:55 rt 06/13 13:47 Order name: Labs collected and sent; Complete Time: 15:55 rt 06/13 13:47 Order name: O2 Per Protocol; Complete Time: 15:55 rt 06/13 13:47 Order name: O2 Sat Monitoring; Complete Time: 15:55 rt EC:46 Rate is 81 beats/min. Rhythm is regular, Sinus Rhythm with No ectopy. Left axis rt deviation noted. MO interval is normal. QRS interval is normal. QT interval is normal. No Q waves. Clinical impression: NSR w/ Non-specific ST/T Changes. Administered Medications: 15:30 Drug: Furosemide IVP 40 mg IVP once; give over 2 minutes Route: IVP; Site: left rs5 antecubital; 16:01 Follow up: Response: No adverse reaction rs5 Disposition Summary: 06/13/24 15:35 Hospitalization Ordered Notes: Hospitalization Status: Inpatient Admission rt Provider: Ayush Bishop rt Location: Telemetry/MedSurg (Inpatient) rt Condition: Stable rt Problem: new rt Symptoms: have improved rt Bed/Room Type: Standard rt Room Assignment: 205(06/13/24 16:28) lynn1 Diagnosis - Syncope rt - CHF exacerbation rt - Elevated troponin rt Forms: - Medication Reconciliation Form rt - SBAR form rt - Leadership Thank You Letter rt Signatures: Dispatcher [employer] EDRj Carrillo RN RN ja1 Shakir Crouch MD MD rt Michele Lewis RN RN rs5 Corrections: (The following items were deleted from the chart) 13:48 13:48 Head Brain Wo Cont+CT.RAD.BRZ ordered. EDCT EDMS 16:28 15:35 rt ja1
[2024-06-13] MEDS ORDERED: FUROSEMIDE 40 MG/4 ML VIAL ONE (16:09)
[2024-06-13] MEDS ORDERED: MORPHINE 4 MG/ML SYR IV PRN (16:10)
--- NOTE | 2024-06-13 16:26 | P.HP ---
Certification for Inpatient Patient admitted to: Inpatient With expected LOS: >2 Midnights <Ange Kebede Cl - Last Filed: 06/13/24 16:16> Patient History Date of Service: 06/13/24 History of Present Illness: Mr. Kearns is a 74-year-old with a past medical history of Atrial Fib; caridac stent; CHF; Diabetes - NIDDM; Hypercholesterolemia; Hypertension; and CKD. Mr. Kearns apparently had a syncopal episode and was said to be unconscious x 5 minutes. At present he is alert, oriented, conversant. He did apparently have some shortness of breath, chest pain, and brief abdominal pain prior to the syncopal event. He denies any of those symptoms at bedside. EKG with normal sinus rhythm with nonspecific ST-T changes. His troponin is mildly elevated so he will be admitted for CHF exacerbation, syncope, elevated troponin with consultation to cardiology. Labs: CBC unremarkable, Chem-7 with a creatinine of 2.63 with a GFR of 24 which is similar to patient's recent history. LFTs normal, albumin 2.6, BNP 18,105, troponin 79.2 Imaging: Chest x-ray impression: "Mild to moderate CHF pattern." CT head findings "moderate brain atrophy with moderate chronic periventricular deep white matter ischemic changes... No evidence of acute intracranial abnormality Home medications list reviewed: Yes - Past Medical/Surgical History Has patient received pneumonia vaccine in the past: Yes Diabetic: Yes -: hypertension -: hyperlipidemia -: Atrial fibrillation -: IDDM -: Coronary artery disease -: Aortic stenosis -: CHF -: Cardiac Catheterization with stent placement -: Right leg surgery Psychosocial/ Personal History: Patient is . - Family History Brother -: Heart disease, Hypertension - Social History Smoking Status: Former smoker Alcohol use: Yes CD- Drugs: No Caffeine use: Yes Place of Residence: Home <Callie Kebedechayito Smallwood - Last Filed: 06/13/24 16:16> Date of Service: 06/13/24 <Ayush Bishop - Last Filed: 06/13/24 18:35> Allergies Penicillins Adverse Reaction (Verified 01/24/23 22:00) Hives Home Medications: Apixaban [Eliquis *] 5 mg PO BID 01/30/24 Ascorbic Acid [Vitamin C] 500 mg PO DAILY 01/30/24 Aspirin [Aspirin EC] 81 mg PO DAILY 01/30/24 Atorvastatin Calcium [Lipitor*] 80 mg PO BEDTIME 01/30/24 Cyanocobalamin (Vitamin B-12) [Vitamin B-12] 1,000 mcg PO DAILY 01/30/24 Empagliflozin [Jardiance] 25 mg PO DAILY 01/30/24 Ferrous Sulfate 324 mg PO DAILY 01/30/24 Sennosides [Senna] 8.6 mg PO DAILY 01/30/24 Bumetanide [Bumex*] 1 mg PO DAILY 05/09/24 Ergocalciferol (Vitamin D2) [Vitamin D2] 50,000 unit PO EVERY 7TH DAY 05/09/24 Insulin Glargine-Yfgn 10 unit SQ DAILY 05/09/24 Melatonin 5 mg PO BEDTIME 05/09/24 Metoprolol Succinate [Toprol Xl*] 50 mg PO BEDTIME 05/09/24 Amlodipine [Norvasc*] 10 mg PO DAILY #30 tab 05/10/24 Gabapentin [Neurontin*] 100 mg PO TID #90 cap 05/10/24 Hydralazine [Apresoline*] 50 mg PO TID tab 05/10/24 Pantoprazole [Protonix Tab] 40 mg PO DAILY #30 tab 05/10/24 Vits A and D/White Pet/Lanolin [A and D Ointment] 1 laquita TP BID #1 tube 05/10/24 dexAMETHasone [Dexamethasone] 2 mg PO BID #12 tab 05/10/24 Review of Systems 10-point ROS is otherwise unremarkable General: Weakness Respiratory: Cough, Shortness of Breath Gastrointestinal: Abdominal Pain Neurological: As per HPI <Ange Kebede Cl - Last Filed: 06/13/24 16:16> Physical Examination - Physical Exam General: Alert, In no apparent distress, Oriented x3 HEENT: Atraumatic, Normocephalic Neck: Supple Respiratory: Diminished Cardiovascular: Regular rate/rhythm, Normal S1 S2, Edema (Significant lower extremity) Capillary refill: <2 Seconds Gastrointestinal: Soft and benign, Rigidity, Distended Musculoskeletal: Other (Significant lower extremity/feet swelling) Integumentary: No rashes Neurological: Normal speech, Normal tone, Normal affect Lymphatics: No axilla or inguinal lymphadenopathy External genitalia: Deferred Rectal: Deferred - Studies Laboratory Data (last 24 hrs) 06/13/24 06/13/24 14:35 14:35 WBC 7.20 Hgb 13.8 Hct 45.7 Plt Count 364 Sodium 142 Potassium 4.0 BUN 31 H Creatinine 2.63 H Glucose 186 H Magnesium 2.3 Total Bilirubin 0.3 AST 35 ALT 47 Alkaline Phosphatase 82 <Ange Kebede - Last Filed: 06/13/24 16:16> - Studies Laboratory Data (last 24 hrs) 06/13/24 06/13/24 14:35 14:35 WBC 7.20 Hgb 13.8 Hct 45.7 Plt Count 364 Sodium 142 Potassium 4.0 BUN 31 H Creatinine 2.63 H Glucose 186 H Magnesium 2.3 Total Bilirubin 0.3 AST 35 ALT 47 Alkaline Phosphatase 82 <Ayush Bishop - Last Filed: 06/13/24 18:35> Assessment and Plan - Plan CHF exacerbation with troponin leak Syncope Hypertension Diabetes Hyperlipidemia Plan: Echocardiogram if no recent 1 available TESSA inhibitor/ARB Beta-abbey Cardiology consultation Aggressive diuresis Strict Is & Os Repeat chest x-ray Daily weight Anticoagulation GI and DVT prophylaxis Plan to discharge in: Greater than 2 days - Advance Directives Does patient have a Living Will: No Does patient have a Durable POA for Healthcare: Yes Critical Care: No <Ange Kebede - Last Filed: 06/13/24 16:16> - Plan Pt seen and examined. I agree with the note by the [facility]. Pt is a 74 yo male with past medical history of Atrial Fib; cardiac stent, CHF, Diabetes - NIDDM, Hy percholesterolemia, Hypertension, and CKD who presents with syncope. His family members report that he had multiple episodes of syncope where he was unconscious in about 5 incidents. On admission, Pt is alert and oriented. He denies any prodrome or chest pain. On admission, lab studies show wbc 7.2, Hgb 13..8, K 4, Cr 2.63, BNP 07146, troponin 79.2. EKG with normal sinus rhythm with nonspecific ST-T changes. CT head is negative for acute findings. CXR is unremarkable. At bedside, pt is in NAD. A/P: Acute CHF exacerbation: [place] [address]. Will continue bumex 1mg iv daily, strict I/O and daily weight. Will f/u Echo NSTEMI: troponin is 79.2. Likely due to troponin leak due to CHF. Will trend troponin and consult Cardiology. KAITLIN: cr is 2.63. Will avoid nephrotoxins and monitor renal function. Syncope: Will f/u orthostatic vital sign, echo and carotid ultrasound. CT head is unremarkable. Hx of A. fib: Will continue telemetry, Beta abbey and Eliquis 2.5mg po BID Hypertensive urgency: Will continue metoprolol, hydralazine and prn iv labetalol. DM II: Continue accuchek, SSI and ADA diet. HLD: statin DVT ppx: SCD Code: full <Ayush Bishop - Last Filed: 06/13/24 18:35>
[2024-06-13] MEDS ORDERED: DOCUSATE NA/SENNA CONC 1 TAB PO PRN (16:33)
[2024-06-13] MEDS ORDERED: NITROGLYCERIN 1 GM PKT TD ONE (16:54)
[2024-06-13] MEDS ORDERED: HEPARIN 5000 UNIT/ML 1 ML VIAL SQ SCH (17:00)
[2024-06-13 17:56] VITALS: BMI 26.6
[2024-06-13] MEDS: LABETALOL 20 MG/4ML SYRINGE IV PRN (18:32)
[2024-06-13] MEDS: HYDRALAZINE HCL 25 MG TABLET PO SCH (20:34)
[2024-06-13] MEDS: METOPROLOL XL 25 MG TAB PO SCH (20:34)
[2024-06-13] MEDS: APIXABAN 5 MG TABLET PO SCH (20:34)
[2024-06-13] MEDS: ATORVASTATIN 80 MG TAB PO SCH (20:34)
[2024-06-13] MEDS: GABAPENTIN 100 MG CAP PO SCH (20:35)
[2024-06-13] MEDS: INSULIN REGULAR (HUMAN) 100 UNIT/ML SQ SCH (20:35)
[2024-06-13 21:37] LABS: Troponin High Sensitivity 95.4 pg/mL (<58.9)
[2024-06-14] MEDS: PANTOPRAZOLE 40MG TABLET PO SCH (06:10)
[2024-06-14 06:23] LABS: Absolute Basophils 0.1 K/uL (0-0.5); Absolute Eosinophils 0.1 K/uL (0-0.5); Absolute Lymphocytes (CBC) 1.2 K/uL (0.7-4.9); Absolute Monocytes 0.8 K/uL (0.1-1.3); Absolute Neutrophil 4.3 K/uL (1.8-8.0); Basophils % 1.1 % (0-1.3); Eosinophils % 2.3 % (0-4.4); Hematocrit 40.5 % (39.6-49.0); Hemoglobin 12.6 g/dL (13.6-17.9); Lymphocytes % 18.2 % (15.3-44.8); MCH 26.2 pg (27.0-35.0); MCHC 31.2 g/dL (32.0-36.0); MCV 83.9 fL (80-100); MPV 8.3 fL (7.6-11.3); Monocytes % 11.9 % (3.3-12.3); Neutrophils % 66.5 % (41.7-73.7); Platelets 362 thou/uL (152-406); RBC Red Blood Cell Count 4.83 M/uL (4.33-5.43)
[2024-06-14 06:39] LABS: Anion Gap 8.2 mEq/L (5.0-15.0); Potassium 4.2 mEq/L (3.5-5.1)
[2024-06-14 06:40] LABS: Troponin High Sensitivity 86.8 pg/mL (<58.9)
--- NOTE | 2024-06-14 08:14 | P.PN ---
Subjective Date of Service: 06/14/24 Subjective: Improving (continues on 3L N/C, Spo2 94%) <Ange Kebedelen - Last Filed: 06/14/24 08:11> Date of Service: 06/14/24 <Ayush Bishop - Last Filed: 06/14/24 13:53> Review of Systems 10-point ROS is otherwise unremarkable Cardiovascular: Other (edema improved), Unremarkable <Ange Kebedelen - Last Filed: 06/14/24 08:11> Physical Examination - Vital Signs Temperature: 97.0 F Blood Pressure: 172/77 Pulse: 65 Respirations: 16 Pulse Ox (%): 97 - Physical Exam General: Alert, In no apparent distress, Oriented x3 HEENT: Atraumatic, Normocephalic Neck: Supple Respiratory: Normal air movement Cardiovascular: Regular rate/rhythm, Other (significantly improved fluid status, lower ext down and abd less distended) Capillary refill: <2 Seconds Gastrointestinal: Normal bowel sounds, Non-distended Musculoskeletal: No clubbing Integumentary: Other (significantly improved fluid state of lower extremities) Neurological: Normal speech, Normal tone, Normal affect Lymphatics: No axilla or inguinal lymphadenopathy External genitalia: Deferred Rectal: Deferred - Studies Laboratory Data (last 24 hrs) 06/13/24 06/13/24 14:35 14:35 WBC 7.20 Hgb 13.8 Hct 45.7 Plt Count 364 Sodium 142 Potassium 4.0 BUN 31 H Creatinine 2.63 H Glucose 186 H Magnesium 2.3 Total Bilirubin 0.3 AST 35 ALT 47 Alkaline Phosphatase 82 <Ange Kebedelen - Last Filed: 06/14/24 08:11> - Studies Laboratory Data (last 24 hrs) 06/13/24 06/13/24 14:35 14:35 WBC 7.20 Hgb 13.8 Hct 45.7 Plt Count 364 Sodium 142 Potassium 4.0 BUN 31 H Creatinine 2.63 H Glucose 186 H Magnesium 2.3 Total Bilirubin 0.3 AST 35 ALT 47 Alkaline Phosphatase 82 <Ayush Bishop - Last Filed: 06/14/24 13:53> Assessment And Plan - Plan CHF exacerbation with troponin leak Syncope Hypertension Diabetes Hyperlipidemia Plan: Echocardiogram if no recent 1 available TESSA inhibitor/ARB Beta-abbey Cardiology consultation Aggressive diuresis 06/14/24 fluid status significantly improved Strict Is & Os Repeat chest x-ray Daily weight Anticoagulation GI and DVT prophylaxis Time Spent Managing PTS Care (In Minutes): 25 <Ange Kebede - Last Filed: 06/14/24 08:11> - Plan Pt seen and examined. I agree with the note by the [employer]. Will continue lasix, strict I/O and daily weight. Continue prn duoneb. <Ayush Bishop - Last Filed: 06/14/24 13:53>
[2024-06-14] MEDS ORDERED: ASPIRIN EC 81 MG TAB PO SCH (09:00)
[2024-06-14] MEDS: CYANOCOBALAMIN 1,000 MCG TAB PO SCH (09:19)
[2024-06-14] MEDS: INSULIN GLARGINE 100 UNIT/ML SQ SCH (09:19)
[2024-06-14] MEDS: BUMETANIDE 1 MG/4 ML VIAL IV SCH (09:38)
[2024-06-14 11:16] VITALS: O2SAT 97
[2024-06-14] MEDS: cloNIDine HCL 0.1 MG TAB PO ONE (16:44)
--- NOTE | 2024-06-14 16:47 | P.CNS ---
Date of Consult: 06/14/24 Chief Complaint: SOB History of Present Illness: Patient with PMH of AF, systolic heart failure, CAD with PCI, moderate to severe aortic stenosis, CKD presented with worsening SOB, bilateral lower extremities swelling, associated with chest pressure. Allergies Penicillins Adverse Reaction (Verified 01/24/23 22:00) Hives Home medications list reviewed: Yes Home Medications: Apixaban [Eliquis *] 5 mg PO BID 01/30/24 Ascorbic Acid [Vitamin C] 500 mg PO DAILY 01/30/24 Aspirin [Aspirin EC] 81 mg PO DAILY 01/30/24 Atorvastatin Calcium [Lipitor*] 80 mg PO BEDTIME 01/30/24 Cyanocobalamin (Vitamin B-12) [Vitamin B-12] 1,000 mcg PO DAILY 01/30/24 Empagliflozin [Jardiance] 25 mg PO DAILY 01/30/24 Ferrous Sulfate 324 mg PO DAILY 01/30/24 Sennosides [Senna] 8.6 mg PO DAILY 01/30/24 Bumetanide [Bumex*] 1 mg PO DAILY 05/09/24 Ergocalciferol (Vitamin D2) [Vitamin D2] 50,000 unit PO EVERY 7TH DAY 05/09/24 Insulin Glargine-Yfgn 10 unit SQ DAILY 05/09/24 Melatonin 5 mg PO BEDTIME 05/09/24 Metoprolol Succinate [Toprol Xl*] 50 mg PO BEDTIME 05/09/24 Amlodipine [Norvasc*] 10 mg PO DAILY #30 tab 05/10/24 Gabapentin [Neurontin*] 100 mg PO TID #90 cap 05/10/24 Hydralazine [Apresoline*] 50 mg PO TID tab 05/10/24 Pantoprazole [Protonix Tab] 40 mg PO DAILY #30 tab 05/10/24 Vits A and D/White Pet/Lanolin [A and D Ointment] 1 laquita TP BID #1 tube 05/10/24 dexAMETHasone [Dexamethasone] 2 mg PO BID #12 tab 05/10/24 - Past Medical/Surgical History Diabetic: Yes -: hypertension -: hyperlipidemia -: Atrial fibrillation -: IDDM -: Coronary artery disease -: Aortic stenosis -: CHF -: Cardiac Catheterization with stent placement -: Right leg surgery Psychosocial/ Personal History: Patient is . - Family History Brother Medical History: Heart disease, Hypertension - Social History Smoking Status: Former smoker Alcohol use: Yes CD- Drugs: No Caffeine use: Yes Place of Residence: Home Review of Systems 10-point ROS is otherwise unremarkable Physical Examination Temp Pulse Resp BP Pulse Ox 97.5 F 63 16 183/91 H 98 06/14/24 16:00 06/14/24 16:00 06/14/24 16:00 06/14/24 16:00 06/14/24 16:00 General: Alert, In no apparent distress HEENT: Atraumatic, PERRLA, Mucous membr. moist/pink, EOMI, Sclerae nonicteric Neck: Supple, 2+ carotid pulse no bruit, No LAD, Without JVD or thyroid abnormality Respiratory: Clear to auscultation bilaterally, Normal air movement Cardiovascular: Edema, Irregular heart rate/rhythm Gastrointestinal: Normal bowel sounds, No tenderness Musculoskeletal: No tenderness Integumentary: No rashes Neurological: Normal gait, Normal speech, Normal tone, Normal affect Lymphatics: No axilla or inguinal lymphadenopathy - Problems (1) Acute on chronic combined systolic (congestive) and diastolic (congestive) heart failure Current Visit: Yes Status: Acute Plan: recommend increasing Bumex to 1 mg IV BID Continue to monitor input and output Continue to monitor and correct electrolytes. (2) Afib Current Visit: No Status: Chronic Plan: Continue Toprol XL 50 mg daily Continue Eliquis 5 mg po BID Qualifiers: (3) Coronary artery disease Current Visit: No Status: Chronic Plan: Patient had normal coronaries back in heart cath in 2021, continue medical management. Qualifiers: (4) HTN (hypertension) Current Visit: Yes Status: Acute Plan: Patient BP si rome resume Norvasc 10 mg daily continue Hydralazine 50 mg TID
[2024-06-14] MEDS: cloNIDine HCL 0.1 MG TAB PO SCH (20:59)
[2024-06-15 04:24] LABS: Specific Gravity 1.019 (1.005-1.030); Sqamous Epithelial None Seen /HPF (None Seen); Urine Bacteria <20 /HPF (<20); Urine Bilirubin NEGATIVE (Negative); Urine Blood Negative (Negative); Urine Clarity Turbid (Clear); Urine Color Light-Yellow (Yellow); Urine Culture Reflex Order NOT NEEDED; Urine Glucose 4+ (Over) (Negative); Urine Ketones NEGATIVE (Negative); Urine Microscopic Reflex YN ORDER UMIC; Urine Nitrite NEGATIVE (Negative); Urine Protein 3+ (Negative); Urine RBC <5 /HPF (None Seen); Urine Sperm Present (None Seen); Urine Urobilinogen Normal (Normal); Urine WBC <5 /HPF (<5); Urine Yeast (Budding) Trace /HPF (None Seen); Urine pH 5.5 (5.0-7.0)
[2024-06-15 05:28] LABS: Absolute Basophils 0.1 K/uL (0-0.5); Absolute Eosinophils 0.3 K/uL (0-0.5); Absolute Monocytes 0.9 K/uL (0.1-1.3); Absolute Neutrophil 4.5 K/uL (1.8-8.0); Eosinophils % 3.8 % (0-4.4); Hematocrit 39.8 % (39.6-49.0); Hemoglobin 12.5 g/dL (13.6-17.9); Lymphocytes % 15.5 % (15.3-44.8); MCH 26.8 pg (27.0-35.0); MCHC 31.3 g/dL (32.0-36.0); MCV 85.5 fL (80-100); MPV 8.2 fL (7.6-11.3); Monocytes % 12.8 % (3.3-12.3); Neutrophils % 66.9 % (41.7-73.7); Nucleated Red Blood Cells % 0.1 % (0-0); Platelets 357 thou/uL (152-406); RBC Red Blood Cell Count 4.65 M/uL (4.33-5.43); Red Cell Distribution Width 19.1 % (12.1-15.2)
[2024-06-15 05:36] LABS: Anion Gap 10.4 mEq/L (5.0-15.0); Potassium 4.4 mEq/L (3.5-5.1)
[2024-06-15] MEDS: BUMETANIDE 1 MG/4 ML VIAL IV SCH (08:12)
[2024-06-15] MEDS: cloNIDine HCL 0.1 MG TAB PO SCH (08:38)
--- NOTE | 2024-06-15 11:54 | P.PN ---
Date of Service: 06/15/24 Subjective Date of Service: 06/15/24 Subjective: Improving, bumex to 1mg BID IV per cardiology Review of Systems 10-point ROS is otherwise unremarkable Cardiovascular: Other (edema improved), Unremarkable Physical Examination - Vital Signs reviewed - bp improved, now afib, rate controlled - Physical Exam General: Alert, In no apparent distress, Oriented x3 HEENT: Atraumatic, Normocephalic Neck: Supple Respiratory: Normal air movement Cardiovascular: irregular rate/rhythm, Other (significantly improved fluid status, lower ext down and abd less distended) Capillary refill: <2 Seconds Gastrointestinal: Normal bowel sounds, Non-distended Musculoskeletal: No clubbing Integumentary: Other (significantly improved fluid state of lower extremities) Neurological: Normal speech, Normal tone, Normal affect Lymphatics: No axilla or inguinal lymphadenopathy External genitalia: Deferred Rectal: Deferred Assessment And Plan - Plan CHF exacerbation with troponin leak, no trending down Syncope Hypertension Diabetes Hyperlipidemia Plan: Echocardiogram if no recent 1 available TESSA inhibitor/ARB Beta-abbey Cardiology consultation, Dr. Duque following, will increase Bumex IV to BID, restart Norvasc Aggressive diuresis 06/14/24 fluid status significantly improved Strict Is & Os Repeat chest x-ray Daily weight Anticoagulation GI and DVT prophylaxis Time Spent Managing PTS Care (In Minutes): 25 <Ange Kebede - Last Filed: 06/15/24 11:54> Pt seen and examined. I agree with the note by the [employer]. Will continue bumex 1mg po BID, strict I/O and daily weight. Continue prn duoneb. Will dc pt to soon. <Ayush Bishop - Last Filed: 06/15/24 13:05>
[2024-06-15] MEDS: AMLODIPINE 10 MG TAB PO SCH (13:38)
--- NOTE | 2024-06-15 13:53 | P.DS ---
Admission Date: 06/13/24 Discharge Date: 06/15/24 Reason for Admission: SOB Consultations: Dr. Duque Brief History of Present Illness: Mr. Kearns is a 74-year-old with a past medical history of Atrial Fib; caridac stent; CHF; Diabetes - NIDDM; Hypercholesterolemia; Hypertension; and CKD. Mr. Kearns apparently had a syncopal episode and was said to be unconscious x 5 minutes. At present he is alert, oriented, conversant. He did apparently have some shortness of breath, chest pain, and brief abdominal pain prior to the syncopal event. He denies any of those symptoms at bedside. EKG with normal sinus rhythm with nonspecific ST-T changes. His troponin is mildly elevated so he will be admitted for CHF exacerbation, syncope, elevated troponin with consultation to cardiology. Labs: CBC unremarkable, Chem-7 with a creatinine of 2.63 with a GFR of 24 which is similar to patient's recent history. LFTs normal, albumin 2.6, BNP 18,105, troponin 79.2 Imaging: Chest x-ray impression: "Mild to moderate CHF pattern." CT head findings "moderate brain atrophy with moderate chronic periventricular deep white matter ischemic changes... No evidence of acute intracranial abnormality Hospital Course: Mr. Kearns diuresed well over the course of his admission. He was seen by Dr. Duque and diuretics increased. Patient had a cath recently and medical management is recommended. Troponin has trended down as has the patient's edema. He should follow-up with his PCP in 1 week and with cardiology in 1 to 2 weeks. <Ange Kebede - Last Filed: 06/15/24 13:49> Admission Date: 06/13/24 Discharge Date: 06/15/24 <Ayush Bishop - Last Filed: 06/15/24 14:32> Disposition: ROUTINE DISCHARGE Discharge Condition: GOOD Vital Signs/Physical Exam: Temp Pulse Resp BP Pulse Ox 97.5 F 53 16 161/70 H 98 06/15/24 12:00 06/15/24 13:38 06/15/24 12:00 06/15/24 13:38 06/15/24 12:00 General: Alert, In no apparent distress, Oriented x3 HEENT: Atraumatic, Normocephalic Neck: Supple Respiratory: Normal air movement, Diminished Cardiovascular: Normal pulses, Other (Edema much improved to bilateral lower extremities and abdomen), Irregular heart rate/rhythm Capillary refill: <2 Seconds Gastrointestinal: Normal bowel sounds Musculoskeletal: No clubbing Integumentary: No rashes Neurological: Normal speech, Normal tone, Normal affect Lymphatics: No axilla or inguinal lymphadenopathy External genitalia: Deferred Rectal: Deferred Laboratory Data at Discharge: WBC 6.70 thou/uL (4.3-10.9) 06/15/24 04:44 Hgb 12.5 g/dL (13.6-17.9) L 06/15/24 04:44 Hct 39.8 % (39.6-49.0) 06/15/24 04:44 Plt Count 357 thou/uL (152-406) 06/15/24 04:44 Sodium 139 mEq/L (136-145) 06/15/24 04:44 Potassium 4.4 mEq/L (3.5-5.1) 06/15/24 04:44 BUN 34 mg/dL (7-18) H 06/15/24 04:44 Creatinine 2.64 mg/dL (0.70-1.30) H 06/15/24 04:44 Glucose 187 mg/dL (74-106) H 06/15/24 04:44 Magnesium 2.3 mg/dL (1.6-2.4) 06/13/24 14:35 Total Bilirubin 0.3 mg/dL (0.2-1.0) 06/13/24 14:35 AST 35 U/L (15-37) 06/13/24 14:35 ALT 47 U/L (16-61) 06/13/24 14:35 Alkaline Phosphatase 82 U/L (45-117) 06/13/24 14:35 Triglycerides 64 mg/dL (<150) 06/13/24 20:50 Cholesterol 109 mg/dL (<200) 06/13/24 20:50 HDL Cholesterol 50 mg/dL (40-60) 06/13/24 20:50 Cholesterol/HDL Ratio 2.18 06/13/24 20:50 <Kebede,Ange Cl - Last Filed: 06/15/24 13:49> Vital Signs/Physical Exam: Temp Pulse Resp BP Pulse Ox 97.5 F 53 16 161/70 H 98 06/15/24 12:00 06/15/24 13:38 06/15/24 12:00 06/15/24 13:38 06/15/24 12:00 Laboratory Data at Discharge: WBC 6.70 thou/uL (4.3-10.9) 06/15/24 04:44 Hgb 12.5 g/dL (13.6-17.9) L 06/15/24 04:44 Hct 39.8 % (39.6-49.0) 06/15/24 04:44 Plt Count 357 thou/uL (152-406) 06/15/24 04:44 Sodium 139 mEq/L (136-145) 06/15/24 04:44 Potassium 4.4 mEq/L (3.5-5.1) 06/15/24 04:44 BUN 34 mg/dL (7-18) H 06/15/24 04:44 Creatinine 2.64 mg/dL (0.70-1.30) H 06/15/24 04:44 Glucose 187 mg/dL (74-106) H 06/15/24 04:44 Magnesium 2.3 mg/dL (1.6-2.4) 06/13/24 14:35 Total Bilirubin 0.3 mg/dL (0.2-1.0) 06/13/24 14:35 AST 35 U/L (15-37) 06/13/24 14:35 ALT 47 U/L (16-61) 06/13/24 14:35 Alkaline Phosphatase 82 U/L (45-117) 06/13/24 14:35 Triglycerides 64 mg/dL (<150) 06/13/24 20:50 Cholesterol 109 mg/dL (<200) 06/13/24 20:50 HDL Cholesterol 50 mg/dL (40-60) 06/13/24 20:50 Cholesterol/HDL Ratio 2.18 06/13/24 20:50 <Ayush Bishop - Last Filed: 06/15/24 14:32> Diet: AHA Activity: Ad brian <Kebede,Ange Cl - Last Filed: 06/15/24 13:49> <Ayush Bishop - Last Filed: 06/15/24 14:32> Home Medications: Apixaban [Eliquis *] 5 mg PO BID 01/30/24 Ascorbic Acid [Vitamin C] 500 mg PO DAILY 01/30/24 Aspirin [Aspirin EC] 81 mg PO DAILY 01/30/24 Atorvastatin Calcium [Lipitor*] 80 mg PO BEDTIME 01/30/24 Cyanocobalamin (Vitamin B-12) [Vitamin B-12] 1,000 mcg PO DAILY 01/30/24 Empagliflozin [Jardiance] 25 mg PO DAILY 01/30/24 Ferrous Sulfate 324 mg PO DAILY 01/30/24 Sennosides [Senna] 8.6 mg PO DAILY 01/30/24 Ergocalciferol (Vitamin D2) [Vitamin D2] 50,000 unit PO EVERY 7TH DAY 05/09/24 Insulin Glargine-Yfgn 10 unit SQ DAILY 05/09/24 Melatonin 5 mg PO BEDTIME 05/09/24 Metoprolol Succinate [Toprol Xl*] 50 mg PO BEDTIME 05/09/24 Amlodipine [Norvasc*] 10 mg PO DAILY #30 tab 05/10/24 Gabapentin [Neurontin*] 100 mg PO TID #90 cap 05/10/24 Hydralazine [Apresoline*] 50 mg PO TID tab 05/10/24 Pantoprazole [Protonix Tab*] 40 mg PO DAILY #30 tab 05/10/24 Vits A and D/White Pet/Lanolin [A and D Ointment] 1 laquita TP BID #1 tube 05/10/24 dexAMETHasone [Dexamethasone] 2 mg PO BID #12 tab 05/10/24 Bumetanide [Bumex*] 1 mg PO BID 30 Days #60 tab 06/15/24 New Medications: Bumetanide [Bumex*] 1 mg PO BID 30 Days #60 tab Physician Discharge Instructions: Continue ad brian activity as tolerated. Take bumex 1mg po BID and continue other home meds. Follow up with PCP and Cardiology within 1 - 2 weeks. Followup: Faraz Duque MD [ACTIVE - CAN ADMIT] - Chad Alvarez MD [ACTIVE - CAN ADMIT] - 1-2 Weeks Vanessa Mendoza NP [Primary Care Provider] - 1-2 Weeks
[2024-06-15 16:36] VITALS: BP 160/76; TEMP 97.3
--- NOTE | 2024-06-17 13:04 | EKG ---
Test Date: 2024-06-13 Test Time: 14:28:21 Mailing Machine Operator: [place] MEASUREMENT RESULTS: Intervals: Rate: 81 VT: 164 QRSD: 92 QT: 416 QTc: 483 [place]: P: 75 VT: 164 QRS: -79 T: -3 INTERPRETIVE STATEMENTS: Sinus rhythm with marked sinus arrhythmia Left axis deviation ST & T wave abnormality, consider anterior ischemia Prolonged QT Abnormal ECG Compared to ECG 05/07/2024 12:32:37 Left-axis deviation now present ST (T wave) deviation now present Possible ischemia now present Prolonged QT interval now present Atrial premature complex(es) no longer present Aberrant conduction of supraventricular beat(s) no longer present Right superior axis no longer present Electronically Signed On 06-17-24 12:51:34 CDT by Chad Alvarez
== END 2024-06-15 16:58 | disposition home health service (06) | DRG 280 ==
LOC: ER 13:41 → ERHOLD 16:10 → 2ND 16:46
PROVIDERS: ADMIT Hospitalist; ATTEND Hospitalist
DX: I13.0 Hypertensive heart and chronic kidney disease with heart failure and stage 1 through stage 4 chronic kidney disease, or unspecified chronic kidney disease (principal); I50.43 Acute on chronic combined systolic (congestive) and diastolic (congestive) heart failure; I21.A1 Myocardial infarction type 2; N17.9 Acute kidney failure, unspecified; I48.20 Chronic atrial fibrillation, unspecified; N18.9 Chronic kidney disease, unspecified; E11.22 Type 2 diabetes mellitus with diabetic chronic kidney disease; I16.0 Hypertensive urgency; E78.00 Pure hypercholesterolemia, unspecified; I25.10 Atherosclerotic heart disease of native coronary artery without angina pectoris; R79.89 Other specified abnormal findings of blood chemistry; Z88.0 Allergy status to penicillin; Z79.4 Long term (current) use of insulin; Z95.5 Presence of coronary angioplasty implant and graft; Z79.82 Long term (current) use of aspirin; Z79.01 Long term (current) use of anticoagulants; Z79.899 Other long term (current) drug therapy; Z87.891 Personal history of nicotine dependence
CPT/HCPCS: 36415; 70450; 71045; 80048; 80061; 80076; 81001; 82947; 83735; 83880; 84484; 85025; 93005; 96374; 99285; J1940

== ENCOUNTER 2024-08-13 11:41 | Inpatient (IN) | payer OTHER ==
--- OUTSIDE RECORDS SUMMARY | 2024-08-13 11:44 | XMS REPORT | Continuity of Care Document ---
Author Name Unknown Address [address] [facility] [place] [id number] [facility] Address [address] [facility] [address] [place] [address] Care Team Providers Care Assistant Principal Name Role Phone KAPIL DONIS Primary Care Physician UnavailKapil Landaverde Attending Clinician Unavailable Michael Orozco Attending Clinician Loc Alcocer RN, Jose Lazo Attending Clinician Unavail Romel Martinez Attending Clinician [phone] Starla Tafoya MD Attending Clinician [phone] Kel Yin MD Attending Clinician [phone] KEL YIN Attending Clinician Unavailable Brissa Reinoso Attending Clinician Unavaila Chad Ospina Attending Clinician Unavailable Physician, No Primary or Family Admitting Clinic joe Unavailable Starla Tafoya MD Admitting Clinician [phone] STARLA TAFOYA Admitting Clinician Unavailable Payers Payer Name Policy Type Policy Number Effective Date Expirati on Date Source [place] [id number] [facility] Problems Condition Name Condition Details Condition Category Status Onset Date Resolution Date Last Treatment Date Treating Clinician Comments Source Nausea and vomiting in adult Nausea and vomiting in adult Disease Active 03-08 00:00: 00 [facility] MULLER (dyspnea on exertion) MULLER (dyspnea on exertion) Disease Active 03-08 00:00: 00 [facility] 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 Disease Active 03-08 00:00: 00 [facility] Dyslipidem ia Dyslipidem ia Disease Active 03-08 00:00: 00 [facility] Uncontroll ed hypertensi on Uncontroll ed hypertensi on Disease Active 03-08 00:00: 00 [facility] Chronic heart failure with preserved ejection fraction Chronic heart failure with preserved ejection fraction Disease Active 03-08 00:00: 00 [facility] PAF (paroxysma l atrial fibrillati on) PAF (paroxysma l atrial fibrillati on) Disease Active 03-08 00:00: 00 [facility] Type 2 diabetes mellitus with other specified complicati on Type 2 diabetes mellitus with other specified complicati on Disease Active 03-08 00:00: 00 [facility] Elevated troponin I level Elevated troponin I level Disease Active 03-08 00:00: 00 [facility] Angina of effort Angina of effort Disease Active 02-17 00:00: 00 [facility] [id number] ED (erectile dysfunctio n) of organic origin Problem Active [facility] [id number] Prostate nodule Problem Active [facility] [id number] Urge incontinen ce Problem Active [facility] [id number] Lower urinary tract symptoms (LUTS) Problem Active [facility] Allergies, Adverse Reactions, Alerts Allergy Name Allergy Type Status Severity Reaction(s) Onset Date Inactive Date Treating Clinician Comments Source Penicill ins DA Active SV HIVES 8-05 00:00: 00 EMILEE miller [facility] Penicill ins Propensi ty to adverse reaction s Active Rash 02-17 00:00: 00 [facility] PENICILL INS Drug Class Active Rash 02-17 00:00: 00 [facility] Social History Social Habit Start Date Stop Date Quantity Comments Source History of tobacco use Passive smoker [facility] History SDOH Alcohol Std Drinks [facility] History SDOH Alcohol Binge [facility] History SDOH Social Connections Get Together [facility] History SDOH Social Connections Confucianism [facility] History SDOH Social Connections Membership [facility] History SDOH Social Connections Meetings [facility] Tobacco use and exposure 2023-03-08 00:00:00 2023-03-08 00:00:00 Smokeless tobacco non-user [facility] Alcohol intake 2023-03-08 00:00:00 2023-03-08 00:00:00 3 /d [facility] History SDOH Alcohol Frequency 2023-03-08 00:00:00 2023-03-08 00:00:00 1 [facility] History SDOH Social Connections Phone 2023-03-08 00:00:00 2023-03-08 00:00:00 5 [facility] History SDOH Social Connections Living 2023-03-08 00:00:00 2023-03-08 00:00:00 3 [facility] History SDOH Financial 2023-03-08 00:00:00 2023-03-08 00:00:00 5 [facility] History SDOH Food Worry 2023-03-08 00:00:00 2023-03-08 00:00:00 1 [facility] History SDOH Food Scarcity 2023-03-08 00:00:00 2023-03-08 00:00:00 1 [facility] History SDOH Transport Med 2023-03-08 00:00:00 2023-03-08 00:00:00 2 [facility] History SDOH Transport Non-Med 2023-03-08 00:00:00 2023-03-08 00:00:00 2 [facility] History SDOH Housing Unable to Pay 2023-03-08 00:00:00 2023-03-08 00:00:00 2 [facility] History SDOH Housing Places Lived 2023-03-08 00:00:00 2023-03-08 00:00:00 1 [facility] History SDOH Housing Homeless Last Year 2023-03-08 00:00:00 2023-03-08 00:00:00 2 [facility] Tobacco Comment 2023-03-08 00:00:00 2023-03-08 00:00:00 quit smoking 20 yrs ago [facility] Sex Ass[birth year] At 1950 00:00:00 1950 00:00:00 [facility] Smoking Status Start Date Stop Date Source Ex-smoker 2023-03-08 00:00:00 [facility]23[facility] Ordered Medication Name Filled Medication Name Start Date Stop Date Current Medication? Ordering Clinician Indication Dosage Frequency Signature (SIG) Comments Components Source insulin glargine 100 unit/mL injection 03-10 00:00: 00 Yes [id number] 15U inject 15 Units under the skin in the morning. [facility] amLODIPine 10 mg tablet 03-10 00:00: 00 04-10 04:59 :00 No [id number] 10mg Take 1 tablet by mouth in the morning for 30 days. [facility] metoprolol succinate XL 50 mg 24 hr tablet 03-10 00:00: 00 04-10 04:59 :00 No [id number] 50mg Take 1 tablet by mouth in the morning for 30 days. [facility] glimepiride (AMARYL) 4 mg tablet 03-09 19:56: 26 Yes 4mg Take 4 mg by mouth daily with breakfast. [facility] ALPRAZolam (XANAX) 1 mg tablet 03-09 19:56: 26 Yes 1mg Take 1 mg by mouth 3 (three) times daily. [facility] omega-3 fatty acids-vitam in E (FISH OIL) 1,000 mg capsule 03-09 19:56: 26 Yes 1g Take 1 g by mouth daily. [facility] rosuvastati n (CRESTOR) 10 mg tablet 03-09 15:36: 42 03-09 00:00 :00 No 10mg Take 10 mg by mouth at bedtime. [facility] metoprolol succinate XL (TOPROL XL) 50 mg 24 hr tablet 03-09 15:36: 42 03-09 00:00 :00 No 50mg Take 50 mg by mouth daily. [facility] hydrochloro thiazide (ESIDRIX) 25 mg tablet 03-09 15:36: 42 03-09 00:00 :00 No 25mg Take 25 mg by mouth daily. [facility] canaglifloz in (INVOKANA) 300 mg tablet 03-09 15:36: 42 03-09 00:00 :00 No Take by mouth. [facility] metFORMIN (GLUCOPHAGE ) 1,000 mg tablet 03-09 15:36: 42 03-09 00:00 :00 No 1000mg Take 1,000 mg by mouth 2 (two) times daily with meals. [facility] Amlodipine- Olmesartan (SKYLAR) 10-40 mg per tablet 03-09 15:36: 42 03-09 00:00 :00 No Take by mouth. [facility] INSULIN DETEMIR (LEVEMIR FLEXTOUCH SC) 03-09 15:36: 42 03-09 00:00 :00 No inject under the skin. [facility] aspirin 81 mg EC tablet 03-09 15:36: 42 03-09 00:00 :00 No 81mg Take 81 mg by mouth daily. [facility] rosuvastati n (CRESTOR) tablet 10 mg 03-09 02:00: 00 Yes 10mg 10 mg, Oral, QHS, First dose on Mon03/08/23 at 2100, Until Discontinu ed, Routine [facility] aspirin 81 mg EC tablet 03-09 00:00: 00 04-09 04:59 :00 No [id number] 81mg Take 1 tablet by mouth in the morning for 30 days. [facility] hydroCHLORO thiazide 25 mg tablet 03-09 00:00: 00 04-09 04:59 :00 No [id number] 25mg Take 1 tablet by mouth in the morning for 30 days. [facility] metFORMIN 1,000 mg tablet 03-09 00:00: 00 04-09 04:59 :00 No [id number] 1000mg Take 1 tablet by mouth in the morning and 1 tablet in the evening. Take with meals. Do all this for 30 days. [facility] rosuvastati n 10 mg tablet 03-09 00:00: 00 04-09 04:59 :00 No [id number] 10mg Take 1 tablet by mouth at bedtime for 30 days. [facility] sulfur hexafluorid e microsphr (LUMASON) injection 5 mL 03-08 15:45: 00 03-08 15:45 :00 No [id number] 5mL 5 mL, Intravenou s, ONCE, 1 dose, On Mon03/08/23 at 1045, Routine
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 Restricted medication : RONALD AVILA [facility] Saline Bubble Study 03-08 15:41: 23 Yes [id number] 6mL 6 mL, Injection, SEE-INSTRU CTIONS, Starting on Mon03/08/23 at 1041, Until Discontinu ed, Routine [facility] insulin glargine (LANTUS U-100) injection 15 Units 03-08 14:15: 00 Yes 15U 15 Units, Subcutaneo us, DAILY, First dose on Mon03/08/23 at 0915, Until Discontinu ed, Routine [facility] amLODIPine (NORVASC) tablet 10 mg 03-08 14:15: 00 Yes 10mg 10 mg, Oral, DAILY, First dose on Mon03/08/23 at 0915, Until Discontinu ed, Routine [facility] metoprolol succinate XL (TOPROL XL) tablet 50 mg 03-08 14:15: 00 Yes 50mg 50 mg, Oral, DAILY, First dose on Mon03/08/23 at 0915, Until Discontinu ed, Routine [facility] hydroCHLORO thiazide (ESIDRIX) tablet 25 mg 03-08 14:15: 00 Yes 25mg 25 mg, Oral, DAILY, First dose on Mon03/08/23 at 0915, Until Discontinu ed, Routine [facility] aspirin EC tablet 81 mg 03-08 14:15: 00 Yes 81mg 81 mg, Oral, DAILY, First dose on Mon03/08/23 at 0915, Until Discontinu ed, Routine [facility] ALPRAZolam (XANAX) tablet 1 mg 03-08 14:04: 36 Yes 1mg 1 mg, Oral, TIDPRN, Starting on Mon03/08/23 at 0904, Until Discontinu ed, Routine, Anxiety [facility] Sliding Scale Insulin - Lispro (HumaLOG) 03-08 13:00: 00 Yes Subcutaneo us, TID MEALS+HS, First dose on Mon03/08/23 at 0800, Until Discontinu ed, Routine [facility] heparin (porcine) injection 5,000 Units 03-08 11:00: 00 Yes 5000U 5,000 Units, Subcutaneo us, Q8H, First dose on Mon03/08/23 at 0600, Until Discontinu ed, Routine [facility] hydralAZINE (APRESOLINE ) injection 10 mg 03-08 09:38: 44 Yes 10mg 10 mg, Slow IV Push, Q4HPRN, Starting on Mon03/08/23 at 0438, Until Discontinu ed, Routine, DBP=>100; SBP=>180 [facility] glucagon (GLUCAGEN DIAGNOSTIC KIT) injection 1 mg 03-08 09:36: 45 Yes 1mg 1 mg, Intramuscu lar, PRN, Starting on Mon03/08/23 at 0436, Until Discontinu ed, RENETTA, Blood Glucose < or = 70 mg/dL and patient is NPO, unable to swallow or has mental changes. [facility] dextrose 50 % in water (D50W) injection 25 mL 03-08 09:36: 45 Yes 25mL 25 mL, Slow IV Push, PRN, Starting on Mon03/08/23 at 0436, Until Discontinu ed, RENETTA, Blood Glucose < or = 70 mg/dL and patient is NPO, unable to swallow or has mental status changes. [facility] ondansetron (ZOFRAN (PF)) injection 4 mg 03-08 09:36: 24 Yes 4mg 4 mg, Slow IV Push, Q6HPRN, Starting on Mon03/08/23 at 0436, Until Discontinu ed, Routine, Nausea and Vomiting (N/V) [facility] HYDROcodone -acetaminop hen (NORCO 5) 5-325 mg tablet 1 tablet 03-08 09:36: 16 03-10 09:35 :16 No 1{tbl} 1 tablet, Oral, Q6HPRN, Starting on Mon03/08/23 at 0436, Until Mon03/10/23 at 0435, Routine, Pain (scale 4-6) [facility] acetaminoph en (TYLENOL) tablet 650 mg 03-08 09:36: 10 Yes 650mg 650 mg, Oral, Q6HPRN, Starting on Mon03/08/23 at 0436, Until Discontinu ed, Routine, Pain (scale 1-3), Temp > 38 C [facility] ondansetron (ZOFRAN (PF)) injection 4 mg 03-08 05:45: 00 03-08 05:40 :00 No 4mg 4 mg, Slow IV Push, ONCE, 1 dose, On Mon03/08/23 at 0045, RENETTA [facility] VESIcare 5 MG VESIcare 5 [...] Systolic blood pressure 2023-03-10 00:08:00 163 mm[Hg] [facility] Diastolic blood pressure 2023-03-10 00:08:00 90 mm[Hg] [facility] Heart rate 2023-03-10 00:08:00 70 /min [facility] Body temperature 2023-03-10 00:08:00 35.17 Teresa [facility] Respiratory rate 2023-03-10 00:08:00 16 /min [facility] Oxygen saturation in Arterial blood by Pulse oximetry 2023-03-10 00:08:00 90 /min [facility] Body weight 2023-03-09 08:37:00 102.967 kg [facility] BMI 2023-03-09 08:37:00 30.79 kg/m2 [facility] Body height 2023-03-08 09:35:00 182.9 cm [facility] height 2020-12-03 11:15:00 70 [in_i] Commo n [facility] weight 2020-12-03 11:15:00 197 [lb_av] Comm on [facility] temperature 2020-12-03 11:15:00 97.6 [degF] Com mon [facility] bmi 2020-12-03 11:15:00 28.26 kg/m2 Comm on [facility] oximetry 2020-12-03 11:15:00 97 % Commo n [facility] blood pressure systolic 2020-12-03 11:15:00 139 mm[Hg] [facility] blood pressure diastolic 2020-12-03 11:15:00 64 mm[Hg] Common [facility] height 2020-08-24 14:00:00 70 [in_i] Commo n [facility] weight 2020-08-24 14:00:00 199.6 [lb_av] Co mmon [facility] temperature 2020-08-24 14:00:00 98.4 [degF] Com mon [facility] bmi 2020-08-24 14:00:00 28.64 kg/m2 Comm on [facility] oximetry 2020-08-24 14:00:00 96 % Commo n [facility] blood pressure systolic 2020-08-24 14:00:00 197 mm[Hg] Common [facility] blood pressure diastolic 2020-08-24 14:00:00 86 mm[Hg] [facility] Procedures Procedure Date / Time Performed Performing Clinician Source POCT GLUCOSE (AUTOMATED) 2023-03-09 21:33:00 Janiya Tafoya [facility] POCT GLUCOSE (AUTOMATED) 2023-03-09 16:39:00 Janiya Tafoya [facility] POCT GLUCOSE (AUTOMATED) 2023-03-09 12:45:00 Janiya Tafoya [facility] PHOSPHORUS 2023-03-09 09:02:00 [facility] MAGNESIUM 2023-03-09 09:02:[address] [facility] TROPONIN I 2023-03-09 09:02:00 Kel Yin [facility] HEPATIC FUNCTION PANEL ([id number]) (ALB,T.PRO,BILI T,BU/BC,ALT,AST,ALK PHOS) 2023-03-09 09:02:00 Kel Yin [facility] BASIC METABOLIC PANEL (NA, K, CL, CO2, GLUCOSE, BUN, CREATININE, CA) 2023-03-09 09:02:00 Starla Tafoya [facility] CBC WITH DIFF 2023-03-09 09:02:00 Jagdish Martin [facility] N-TERMINAL PRO-BNP 2023-03-09 09:02:00 Kel Yin [facility] POCT GLUCOSE (AUTOMATED) 2023-03-09 02:08:00 Janiya Tafoya fay [facility] TROPONIN I 2023-03-08 22:51:00 Michelet [facility] GLYCOSYLATED HEMOGLOBIN (A1C) 2023-03-08 22:51:00 Jagdish Martin [facility] POCT GLUCOSE (AUTOMATED) 2023-03-08 21:22:00 Janiya Tafoya [facility] POCT GLUCOSE (AUTOMATED) 2023-03-08 16:16:00 Janiya Tafoya fay [facility] TRANSTHORACIC ECHO (TTE) COMPLETE W/ CONTRAST 2023-03-08 14:29[facility]) 2023-03-08 12:39:00 Janiya Tafoya [facility] PHOSPHORUS 2023-03-08 11:24:00 Starla Tafoya [facility] TROPONIN I 2023-03-08 11:24:00 Michelet [facility] N-TERMINAL PRO-BNP 2023-03-08 11:24:00 Candi Patel [facility] XR CHEST 1 VW 2023-03-08 06:27:00 Temi Holloway [facility] HB ECG ROUTINE & RHYTHM STRIP 2023-03-08 05:39:37 Temi Holloway [facility] LIPASE 2023-03-08 05:39:00 Temi Holloway [facility] TROPONIN I 2023-03-08 05:39:00 Temi Holloway [facility] THYROID STIMULATING HORMONE 2023-03-08 05:39:00 Starla Tafoya [facility] COMP. METABOLIC PANEL (12664) 2023-03-08 05:39:00 Temi Holloway [facility] LIPID PANEL (25563)(TOTAL CHOLESTEROL, TRIGLYCERIDES, HDL) 2023-03-08 05:39:00 Starla Tafoya [facility] CBC WITH DIFF 2023-03-08 05:39:00 Temi Holloway [facility] GLYCOSYLATED HEMOGLOBIN (A1C) 2023-03-08 05:39:00 [facility] Start Date/Time End Date/Time Encounter Type Admission Type Attending [facility] Care Facility Care Department Encounter ID Source 2021-10-27 12:15:25 Outpatient Donis, Kapil [facility] [id number] [facility] 2021-10-27 12:07:45 Outpatient [facility] [id number] Common [facility] 2023-08-08 10:16:00 2023-08-08 10:16:00 Outpatient MAGDALENE Pittelizabeth Michael [facility] EKG [id number] [facility] 2023-03-10 00:00:00 2023-03-10 00:00:00 Transition of Care Jose Alcocer [address] 1..[id number] [facility] 2023-03-08 00:29:00 2023-03-09 19:46:00 Emergency Romel Montez Jelani Abdullah, Yaman [facility] ..[id number] [facility] 2023-03-08 00:29:00 2023-03-09 19:46:00 Outpatient KEL ALVAREZ [facility] [id number] [facility] 2022-05-31 08:52:00 2022-05-31 08:52:00 Outpatient Brissa Dial [facility] [id number] [facility] 2022-05-11 10:11:00 2022-05-11 10:11:00 Outpatient Chad Rae [facility] [id number] [facility] 2022-05-11 10:11:00 2022-05-11 10:11:00 Outpatient Chad Rae [facility] [id number] [facility] 2020-12-03 00:00:00 2020-12-03 00:00:00 OFFICE VISIT ESTAB PT LEVEL 2 [facility] [id number] [facility] 2020-08-24 00:00:00 2020-08-24 00:00:00 OFFICE VISIT NEW PT LEVEL 4 [facility] [id number] [facility] Results Test Description Test Time Test Comments Results Result Co mments Source [facility] GLUCOSE (AUTOMATED)2023-03-09 16:43:52* Test Item Value Reference Range Interpretation Comme nts POCT GLU (test code = 3911646855) 138 mg/dL 70-110 H Lab Interpretation (test cod e = 33192-3) Abnormal [facility] GLUCOSE (AUTOMATED)2023-03-09 12:55:44* Test Item Value Reference Range Interpretation Comme nts POCT GLU (test code = 0587535774) 126 mg/dL 70-110 H Lab Interpretation (test cod e = 05482-4) Abnormal [facility] GLUCOSE (AUTOMATED)2023-03-09 02:09:42* Test Item Value Reference Range Interpretation Comme nts POCT GLU (test code = 0042636772) 115 mg/dL 70-110 H Lab Interpretation (test cod e = 08848-7) Abnormal [facility] GLUCOSE (AUTOMATED)2023-03-08 21:32:42* Test Item Value Reference Range Interpretation Comme nts POCT GLU (test code = 6193876097) 266 mg/dL 70-110 H Lab Interpretation (test cod e = 99019-6) Abnormal [facility] GLUCOSE (AUTOMATED)2023-03-08 16:26:44* Test Item Value Reference Range Interpretation Comme nts POCT GLU (test code = 8303231215) 195 mg/dL 70-110 H Lab Interpretation (test cod e = 98927-1) Abnormal [facility] GLUCOSE (AUTOMATED)2023-03-08 12:40:58* Test Item Value Reference Range Interpretation Comme [facility] POCT GLU (test code = 9740331467) 179 mg/dL 70-110 H Lab Interpretation (test cod e = 20328-4) Abnormal [facility] Stimulating Hormone (TSH)2023-03-08 11:56:52* Test Item Value Reference Range Interpretation Comme nts TSH (test code = 7035220112) 5.09 See_Comment H Biotin has been reported to cause a negative bias, interpret results relative to patient's use of biotin. [Automated message] The system which generated this result transmitted reference range: 0.45 - 4.70 mIU/L. The reference range was not used to interpret this result as normal/abnormal. Lab Interpretation (test code = 82732-0) Abnormal [facility]ylated Hemoglobin (A1C)2023-03-08 11:27:39* Test Item Value Reference Range Interpretation Comme [facility] HGB A1C (test code = 4548-4) 9.3 % 4.0-5.7 H TRINIDAD (test code = TRINIDAD) Reference RangesNormal: <5.7%Prediabetes: 5.7 - 6.4%Diabetes: > 6.5% Lab Interpretation (test code = 48097-2) Abnormal [facility] (Total Cholesterol, Triglycerides, HDL)2023-03-08 11:14:15* Test Item Value Reference Range Interpretation Comme nts CHOL (test code = 3235141098) 166 mg/dL 120-200 HDL (test code = 6182558630) 51 mg/dL >=40 HDLC RATIO (test code = 8295171007) 3.3 <=5.0 TRIG (test code = 8562394605) 83 mg/dL 30-170 LDL CHOL (test code = 88126-2) 98 mg/dL <=160 VLDL (test code = 2259445826) 17 mg/dL 5-60 Lab Interpretation (test cod e = 84906-6) Normal [facility] [id number] 06:21:21* Test Item Value Reference Range Interpretation Comme nts TROPONIN I (test code = 4361267224) 0.075 ng/mL <=0.034 H TRINIDAD (test code [...] of biotin. Lab Interpretation (test code = 31996-8) Abnormal [facility]. METABOLIC PANEL (44626)2023-03-08 06:10:20* Test Item Value Reference Range Interpretation Comme nts NA (test code = 6909158730) 135 mmol/L 135-145 K (test code = 6471934761) 4.3 mmol/L 3.5-5.0 CL (test code = 9973980746) 104 mmol/L 98-108 CO2 TOTAL (test code = 4406601685) 26 mmol/L 23-31 AGAP (test code = 2071201551) 5 2-16 BUN (test code = 6161759148) 27 mg/dL 7-23 H GLUCOSE (test code = 8553044040) 243 mg/dL 70-110 H CREATININE (test code = 6504353538) 2.15 mg/dL 0.60-1.25 H TOTAL BILI (test code = 8656938879) 0.8 mg/dL 0.1-1.1 CALCIUM (test code = 6361450668) 8.2 mg/dL 8.6-10.6 L T PROTEIN (test code = 2520352551) 6.0 g/dL 6.3-8.2 L ALBUMIN (test code = 2343698315) 2.5 g/dL 3.5-5.0 L ALK PHOS (test code = 5926777103) 60 U/L 34-122 ALTv (test code = 1742-6) 17 U/L 5-50 AST(SGOT) (test code = 9688020568) 26 U/L 13-40 eGFR (test code = 6064763789) 30.1 mL/min/1.73m2 TRINIDAD (test code = TRINIDAD) [...] imaging tests). Lab Interpretation (test code = 59608-7) Abnormal [facility], [id number] 06:09:44* Test Item Value Reference Range Interpretation Comme nts LIPASE (test code = 1067683474) 101 U/L 0-220 Lab Interpretation (test cod e = 07110-3) Normal [facility] WITH [id number] 05:51:59* Test Item Value Reference Range Interpretation [...] 31.9 g/dL 31.2-35.0 RDW-SD (test code = 19684-6) 56.7 fL 38.5-51.6 H RDW-CV (test code = 788-0) 19.4 % 12.1-15.4 H PLT (test code = 777-3) 232 See_Comment [Automated messa ge] The system which generated this result transmitted reference range: 150 - 328 10*3/?L. The reference range was not used to interpret this result as normal/abnormal. MPV (test code = 24732-6) 10.5 fL 9.8-13.0 NRBC/100 WBC (test code = 3838749539) 0.0 See_Comment [Automated [employer] ssage] The system which generated this result transmitted reference range: 0.0 - 10.0 /100 WBCs. The reference range was not used to interpret this result as normal/abnormal. NRBC x10^3 (test code = 4017848971) See_Comment [Automated messa ge] The system which generated this result transmitted reference range: 10*3/?L. The reference range was not used to interpret this result as normal/abnormal. GRAN MAT (NEUT) % (test code = 770-8) 68.1 % IMM GRAN % (test code = 1534543102) 0.20 % LYMPH % (test code = 736-9) 20.0 % MONO % (test code = 5905-5) 9.2 % EOS % (test code = 713-8) 1.6 % BASO % (test code = 706-2) 0.9 % GRAN MAT x10^3(ANC) (test code = 2790710572) 3.85 10*3/uL 1.99-6.95 IMM GRAN x10^3 (test code = 4845007094) 0.00-0.06 LYMPH x10^3 (test code = 731-0) 1.13 10*3/uL 1.09-3.23 MONO x10^3 (test code = 742-7) 0.52 10*3/uL 0.36-1.02 EOS x10^3 (test code = 711-2) 0.09 10*3/uL 0.06-0.53 BASO x10^3 (test code = 704-7) 0.05 10*3/uL 0.01-0.09 Lab Interpretation (test code = 82198-6) [facility]normal [facility] As[facility]omatic IH [id number] 10:17:00 * Test Item Value Reference Range [...] waivedcomplexity tests. - CTA HEART W CN ART/[id number] 00:00:00 [facility] 1950 Sex: M Name: ALBERT MARQUEZ [facility] Dagmar Jeronimo : 1950 Age/S: 72 / M [address] [place] [address] Blvd Unit #: [id number] Loc: [place] [address] Phys: Brissa Reinoso [facility] Acct: [id number] Dis Date: Status: REG [place] #: [phone] Exam Date: 05/31/2022 1012 FAX #: [phone] Reason: EXAMS: CPT CODE: [id number] CTA HEART W CN ART/GRAFTS 40925 PROCEDURE INFORMATION: Exam: CTA Heart And Coronary [...] 1 Signed Report (CONTINUED) Name: ALBERT MARQUEZ [facility] : 1950 Age/S: 72 / M [address] [place] [address] Unit #: [id number] Loc: [place] [address] Phys: Brissa Reinoso [facility] Acct: [id number] Dis Date: Status: REG CLI PHONE #: [phone] Exam Date: 05/31/2022 1012 FAX #: [phone] Reason: EXAMS: CPT CODE: [id number] CTA HEART W CN ART/GRAFTS 76388 (Continued) mitral annular calcification. 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 [...] CTA ABD PEL W CONT 2022-05-31 00:00:00 [facility] 1950 Sex: M Name: ALBERT MARQUEZ [facility] [place] : 1950 Age/S: 72 / M [address] [place] [address] Blvd Unit #: [id number] Loc: [place] [address] Phys: Brissa Reinoso Acct: [id number] Dis Date: Status: MITZY PRUITT #: [phone] Exam Date: 05/31/2022 1012 FAX #: [phone] Reason: 135.0, SEVERE AORTIC STENOSIS. 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 EXAMS: CPT CODE: [id number] CTA ABD PEL W CONT 93913 (Continued) mitral annular calcification. PERICARDIUM: No evidence [...] 2 Signed Report (CONTINUED) Name: ALBERT MARQUEZ [facility] Dagmar Jeronimo : 1950 Age/S: 72 / M [address] [place] [address] Bl Unit #: [id number] Loc: [place] [address] Phys: Brissa Reinoso Acct: [id number] Dis Date: Status: REG CLI PHONE #: [phone] Exam Date: 05/31/2022 1012 FAX #: [phone] Reason: 135.0, SEVERE AORTIC STENOSIS. EXAMS: CPT CODE: [id number] CTA ABD PEL W CONT 57662 (Continued) Small uncomplicated fat containing umbilical hernia. [...] (1724) PAGE 3 Signed Report- CT ANGIO [id number] 00:00:00[facility] : 1950 Sex: M Name: ALBERT MARQUEZ [facility] Dagmar Jeronimo : 1950 Age/S: 72 / M [address] [place] [address] Blvd Unit #: [id number] Loc: [place] [address] Phys: Brissa Reinoso REMOTE SENSING ANALYST Acct: [id number] Dis Date: Status: REG CLIPHONE #: [phone] Exam Date: 05/31/2022 1012 FAX #: [phone] Reason: 135.0 , SEVERE AORTICSTENOSIS. EXAMS: CPT CODE: [id number] CT ANGIO CHEST 85365 PROCEDURE INFORMATION: Exam: CTA Heart And Coronary [...] 1 Signed Report (CONTINUED) Name: ALBERT MARQUEZ [facility] : 1950 Age/S: 72 / M [address] [place] [address] Blvd Unit #: [id number] Loc: [place] [address] Phys: Brissa Reinoso [facility] Acct: [id number] Dis Date: Status: REG CLI PHONE #: [phone] Exam Date: 05/31/2022 1012 FAX #: [phone] Reason: 135.0 , SEVERE AORTIC STENOSIS. EXAMS: CPT CODE: [id number] CT ANGIO CHEST 25393 (Continued) mitral annular calcification. PERICARDIUM: No evidence [...] 2 Signed Report (CONTINUED) Name: ALBERT MARQUEZ [facility] : 1950 Age/S: 72 / M [address] [place] [address] Unit #: [id number] Loc: [place] [address] Phys: ChrisstephaniemikaBrissa REMOTE SENSING ANALYST Acct: [id number] Dis Date: Status: REG CLI PHONE #: [phone] Exam Date: 05/31/2022 1012 FAX #: [phone] Reason: 135.0 , SEVERE AORTIC STENOSIS. EXAMS: CPT CODE: [id number] CT ANGIO CHEST 51009 (Continued) Small uncomplicated fat containing umbilical hernia. [...] (1723) [id number] Orig Print D/T: S: 05/31/2022 (1632) PAGE 3 Signed ReportGLUCOSE [id number] 09:36:00 * Test Item Value Reference Range Interpretation Comme nts GLUCOSE BEDSIDE (test code = GLUBED) 137 MG/DL 70-110 H Performed by cer lisa fixing machine operator at [facility] BASIC METABOLIC [id number] 16:24:00* Test Item Value Reference Range Interpretation [...] = CA) 8.9 mg/dL 8.0-10.5 N PROTHROMBIN [id number] 16:19:00* Test Item Value Reference Range Interpretation [...] Infarction (to prevent recurrent infarct). CBC W/AUTO [id number] 16:09:00* Test Item Value Reference Range Interpretation [...] Notes Date/Time Note Provider Source 2023-08-08 15:06:00 [id number] [facility] [address] [place] [address] PATIENT NAME: ALBERT MARQUEZ ADMIT DATE: 08/08/23 ACCOUNT NO: [id number] ROOM NO: AGE: 73 REPORT TYPE: eECHOCARDIOGRAM REPORT SEX: M ADMITTING PHYSICIAN: ATTENDING PHYSICIAN: DO Alicia [facility]CH[facility] [address] [place] [address] Transthoracic Echocardiogram Patient: Albert Marquez Study Date: 08/08/2023 BP: Location: [facility] URN: [id number] : 1950 Age: 73 Height: 72 in / 182.9 cm Gender: M Weight: 188.6 lb / 85.7 kg BMI/BSA: 25.6 kg/m 2 / 2.08 m 2 *Ordering Physician: * Michael Orozco *Interpreting Physician: * Osmany Griffith MD *Register Of Wills: * Rachael Melo Indications: CAD. Atrial Fibrillation. [...] Value 05/11/2022 Ref PATIENT NAME: ALBERT MARQUEZ ME peak v 0.99 m/sec ----- ME peak grad 4 mm Hg ----- Tricuspid [...] 15:05 at 1506 PATIENT NAME: ALBERT MARQUEZ [facility] 2022-06-02 08:57:00 [id number] [place] [address] patient name: albert marquez admit date: 05/31/22 account no: [id number] room no: age: 72 report type: pulmonary [...] dd: 06/02/2022 08:57:29 dt: 06/02/2022 09:52:31 conf#: [id number]/did#: [id number] authenticated by dorothy baer md on 06/06/2022 08:17:48 am electronically signed by dorothy baer md on 06/06/22 at 0817 patient name: albert marquez [facility] 2022-05-11 15:06:00 [facility] ([facility]) clinical note report#:[id number] report status: signed date:05/11/22 time: 1506 patient: albert marquez unit #: [id number] room/bed: : 48 age: 72 sex: m attend: chad valadez md adm dt: 05/11/22 author: ian coates central melt specialist * all edits or amendments must be made on the electronic/computer document * clinical note note: 72-year-old -[place] male with past medical history of hypertension, [...] molina md on 05/24/22 at 0953 rpt #:[id number] end of report [facility] 2022-05-11 15:06:00 [facility] ([facility]) Clinical Note REPORT#:[id number] REPORT STATUS: Signed DATE:05/11/22 TIME: 1506 PATIENT: ALBERT MARQUEZ UNIT #: [id number] ROOM/BED: : 48 AGE: 72 SEX: M ATTEND: Chad Valadez MD ADM AUTHOR: Ian Coates NP * ALL edits or amendments must be made on the electronic/computer document * Clinical Note Note: 72-year-old -[place] Citizen male with past medical history of hypertension, [...] not want to wait. at 1522 RPT #:[id number] END OF REPORT HCACL"
--- NOTE | 2024-08-13 12:32 | RAD REPORT ---
EXAM: Chest Single View HISTORY: confusion, generalized weakness COMPARISON: 06/13/2024 FINDINGS: LUNGS/PLEURA: Mild coarsening of pulmonary interstitium similar to 06/13/2024. MEDIASTINUM: The mediastinal silhouette is within normal limits. CARDIAC: Similar size and configuration. UPPER ABDOMEN: No significant abnormality. BONES: No acute fracture. LINES/TUBES/OTHER: N/A IMPRESSION: Similar prominence of the pulmonary interstitium could reflect an infectious or inflammatory process. Edema less likely.
[2024-08-13 13:07] LABS: Sqamous Epithelial <5 /HPF (None Seen); Urine Bacteria None Seen /HPF (<20); Urine Bilirubin NEGATIVE (Negative); Urine Blood Negative (Negative); Urine Clarity Turbid (Clear); Urine Color Light-Yellow (Yellow); Urine Culture Reflex Order NOT NEEDED; Urine Glucose 3+ (Negative); Urine Ketones NEGATIVE (Negative); Urine Microscopic Reflex YN ORDER UMIC; Urine Mucus Slight /HPF (None Seen); Urine Nitrite NEGATIVE (Negative); Urine Protein 2+ (Negative); Urine RBC <5 /HPF (None Seen); Urine Urobilinogen Normal (Normal); Urine WBC <5 /HPF (<5)
[2024-08-13 13:48] LABS: Absolute Basophils 0.1 K/uL (0-0.5); Absolute Eosinophils 0.5 K/uL (0-0.5); Absolute Lymphocytes (CBC) 1.1 K/uL (0.7-4.9); Absolute Monocytes 0.6 K/uL (0.1-1.3); Basophils % 1.1 % (0-1.3); Eosinophils % 8.3 % (0-4.4); Hematocrit 56.7 % (39.6-49.0); Hemoglobin 17.7 g/dL (13.6-17.9); Lymphocytes % 16.8 % (15.3-44.8); MCH 27.5 pg (27.0-35.0); MCHC 31.2 g/dL (32.0-36.0); MCV 88.2 fL (80-100); MPV 8.3 fL (7.6-11.3); Monocytes % 10.3 % (3.3-12.3); Neutrophils % 63.5 % (41.7-73.7); Nucleated Red Blood Cells % 0.1 % (0-0); Platelets 284 thou/uL (152-406); RBC Red Blood Cell Count 6.42 M/uL (4.33-5.43); Red Cell Distribution Width 20.8 % (12.1-15.2)
[2024-08-13 13:58] LABS: ALT/SGPT 17 U/L (16-61); Albumin 2.5 g/dL (3.4-5.0); Albumin/Globulin Ratio 0.4 (1.1-1.8); Alkaline Phosphatase 74 U/L (45-117); Anion Gap 10.9 mEq/L (5.0-15.0); BUN Blood Urea Nitrogen 64 mg/dL (7-18); Bicarbonate 23 mEq/L (21-32); Bilirubin Total 0.5 mg/dL (0.2-1.0); Globulin 6.3 g/dL (2.3-3.5); Glomerular Filtration Rate 15 ml/min (=/>90); Glucose Level 140 mg/dL (74-106); NT PRO-BNP 4472 pg/mL (<450); Protein, Total 8.8 g/dL (6.4-8.2); Sodium Level 135 mEq/L (136-145)
[2024-08-13 13:59] LABS: AST/SGOT 19 U/L (15-37); Bilirubin Direct < 0.2 mg/dL (0-0.2); Bilirubin Indirect, Calculated 0.3 mg/dL (0.2-0.8); Potassium 5.9 mEq/L (3.5-5.1)
[2024-08-13 14:00] LABS: Magnesium 2.8 mg/dL (1.6-2.4); Troponin High Sensitivity 71.7 pg/mL (<58.9)
--- NOTE | 2024-08-13 14:27 | EDPHYS ---
Physician Documentation [facility] Name: Julianna Kearns Age: 74 yrs Sex: Male : 1950 Arrival Date: 08/13/2024 Time: 11:41 Bed 13 Private MD: ED Physician Tayo Wade HPI: 08/13 14:35 This 74 yrs old Black Male presents to ER via EMS with complaints of General Weakness, ms3 Wound Check. 14:35 74-year-old male with past medical history of cardiac stent, atrial fibrillation, ms3 congestive heart failure, diabetes, hyperlipidemia, hypertension presents to the emergency department via [facility] for generalized weakness that began this morning. Patient states he was unable to get out of bed prompting his to call EMS. Patient denies pain. Patient denies any alleviating or inciting factors. Patient notes he is being treated at the [facility] for bilateral lower extremity ulcers. Historical: - Allergies: 11:43 PENICILLINS; rs5 - PMHx: 11:43 caridac stent; Atrial Fib; CHF; Diabetes - NIDDM; Hypercholesterolemia; Hypertension; rs5 Chronic obstructive lung disease; - PSHx: 11:43 cardiac stent; rs5 - Immunization history:: Adult Immunizations up to date. - Infectious Disease History:: Denies. - Social history:: Smoking status: Patient/guardian denies using tobacco, but has a distant history of tobacco abuse. ROS: 14:35 Cardiovascular: Negative for chest pain, and palpitations. Respiratory: Negative for ms3 shortness of breath, cough, wheezing, and pleuritic chest pain, Abdomen/GI: Negative for abdominal pain, nausea, vomiting, diarrhea, and constipation, 14:35 MS/Extremity: Negative for injury and deformity, Skin: Negative for injury, rash, and discoloration, 14:35 Constitutional: Positive for Generalized weakness, Exam: 14:35 Constitutional: This is a well developed, well nourished patient who is awake, alert, ms3 and in no acute distress. Chest/axilla: Normal chest wall appearance and motion. Nontender with no deformity. Cardiovascular: Regular rate and rhythm with a normal S1 and S2. No gallops, murmurs, or rubs. Normal PMI, no JVD. No pulse deficits. Respiratory: Lungs have equal breath sounds bilaterally, clear to auscultation and percussion. No rales, rhonchi or wheezes noted. No increased work of breathing, no retractions or nasal flaring. Abdomen/GI: Soft, non-tender, with normal bowel sounds. No distension or tympany. No guarding or rebound. No evidence of tenderness throughout. 14:35 Skin: Appearance: rash can be described as erythematous, Weeping, on the left leg and right leg, 14:40 ECG was reviewed by the Attending Physician. ms3 Vital Signs: 11:42 BP 146 / 79; Pulse 71; Resp 17; Temp 98(O); Pulse Ox 94% on 2 lpm NC; rs5 12:30 BP 158 / 77; Pulse 64; Resp 16; Pulse Ox 94% on R/A; cm10 13:15 BP 162 / 80; Pulse 74; Resp 15; Pulse Ox 91% on R/A; cm10 14:00 BP 156 / 69; Pulse 68; Resp 13; Pulse Ox 91% on R/A; cm10 15:30 BP 162 / 81; Pulse 85; Resp 18; Pulse Ox 94% on 2 lpm NC; cm10 16:00 BP 162 / 78; Pulse 78; Resp 16; Pulse Ox 95% on 2 lpm NC; cm10 MDM: 12:04 Medical Screening Exam initiated ms3 14:35 Differential diagnosis: cellulitis, Electrolyte abnormality vs TN. Data reviewed: vital ms3 signs, nurses notes, lab test result(s), EKG, radiologic studies, and as a result, I will admit patient. Consideration of Admission/Observation Patient was admitted/placed on observation. Management of patient was discussed with the following: Hospitalist: Dr Zhang. Independent interpretation of the following test(s) in the Emergency Department EKG: See my EKG interpretation above. Care significantly affected by the following chronic conditions: Diabetes, Hypertension, Congestive Heart Failure. Counseling: I had a detailed discussion with the patient and/or guardian regarding the historical points, exam findings, and any diagnostic results supporting the discharge/admit diagnosis, lab results, radiology results, the need for further work-up and treatment in the hospital. ED course: Discussed case with Dr. Zhang and he accepts patient for admission. All questions were answered. Discussed plan for admission with patient and his . They understand and agree with plan.. 08/13 12:05 Order name: Basic Metabolic Panel; Complete Time: 14:09 ms3 08/13 12:05 Order name: CBC with Diff; Complete Time: 14:44 ms3 08/13 12:05 Order name: LFT's; Complete Time: 14:09 ms3 08/13 12:05 Order name: Magnesium; Complete Time: 14:09 ms3 08/13 12:05 Order name: NT PRO-BNP; Complete Time: 14:09 ms3 08/13 12:05 Order name: Troponin HS; Complete Time: 14:09 ms3 08/13 12:05 Order name: Urinalysis w/ reflexes; Complete Time: 14:09 ms3 08/13 14:34 Order name: CBC Smear Scan; Complete Time: 14:44 EDMS 08/13 14:51 Order name: Basic Metabolic Panel EDMS 08/13 14:51 Order name: Basic Metabolic Panel EDMS 08/13 14:51 Order name: Basic Metabolic Panel EDMS 08/13 14:51 Order name: Basic Metabolic Panel EDMS 08/13 14:51 Order name: Basic Metabolic Panel EDMS 08/13 14:51 Order name: Basic Metabolic Panel EDMS 08/13 14:51 Order name: Basic Metabolic Panel EDMS 08/13 14:51 Order name: Basic Metabolic Panel EDMS 08/13 14:51 Order name: CBC with Automated Diff EDMS 08/13 14:51 Order name: CBC with Automated Diff EDMS 08/13 14:51 Order name: CBC with Automated Diff EDMS 08/13 14:51 Order name: Urinalysis w/ reflexes EDMS 08/13 14:52 Order name: CBC with Automated Diff EDMS 08/13 14:52 Order name: CBC with Automated Diff EDMS 08/13 14:52 Order name: CBC with Automated Diff EDMS 08/13 14:52 Order name: CBC with Automated Diff EDMS 08/13 14:52 Order name: CBC with Automated Diff EDMS 08/13 14:52 Order name: Magnesium EDMS 08/13 14:52 Order name: Magnesium EDMS 08/13 14:52 Order name: Magnesium EDMS 08/13 14:52 Order name: Magnesium EDMS 08/13 14:52 Order name: Magnesium EDMS 08/13 14:52 Order name: Magnesium EDMS 08/13 14:52 Order name: Magnesium EDMS 08/13 14:52 Order name: Magnesium EDMS 08/13 14:52 Order name: Phosphorus EDMS 08/13 14:52 Order name: Phosphorus EDMS 08/13 14:52 Order name: Phosphorus EDMS 08/13 14:52 Order name: Phosphorus EDMS 08/13 14:52 Order name: Phosphorus EDMS 08/13 14:52 Order name: Phosphorus EDMS 08/13 14:52 Order name: Phosphorus EDMS 08/13 14:52 Order name: Phosphorus EDMS 08/13 14:52 Order name: Troponin High Sensitivity EDMS 08/13 14:52 Order name: Troponin High Sensitivity EDMS 08/13 14:52 Order name: Troponin High Sensitivity EDMS 08/13 12:05 Order name: XRAY Chest (1 view); Complete Time: 12:41 ms3 08/13 14:51 Order name: CONS [facility] Cons EDMS 08/13 14:51 Order name: Physical Therapy Consult EDMS 08/13 14:54 Order name: CONS Physician Consult EDMS 08/13 12:05 Order name: Cardiac monitoring; Complete Time: 12:47 ms3 08/13 12:05 Order name: EKG - Nurse/Tech; Complete Time: 12:47 ms3 08/13 12:05 Order name: IV Saline Lock; Complete Time: 12:47 ms3 08/13 12:05 Order name: Labs collected and sent; Complete Time: 12:47 ms3 08/13 12:05 Order name: O2 Per Protocol; Complete Time: 12:47 ms3 08/13 12:05 Order name: O2 Sat Monitoring; Complete Time: 12:47 ms3 08/13 13:03 Order name: Labs - recollect needed: recollect green and lavender top; Complete Time: bd 13:28 EC:40 Rate is 67 beats/min. Rhythm is regular. Left axis deviation noted. [place] interval is ms3 normal. QRS interval is normal. Clinical impression: NSR w/ Non-specific ST/T Changes. Interpreted by me. Reviewed by me. Administered Medications: No medications were administered Disposition Summary: 08/13/24 14:27 Hospitalization Ordered Notes: Hospitalization Status: Observation ms3 Provider: Wilner Zhang ms3 Location: Telemetry/MedSurg (observation) ms3 Condition: Stable ms3 Problem: new ms3 Symptoms: are unchanged ms3 Bed/Room Type: Standard ms3 Room Assignment: 202(08/13/24 16:24) ja Diagnosis - Elevated Troponin ms3 - Acute kidney failure, unspecified ms3 - Muscle weakness (generalized) ms3 Forms: - Medication Reconciliation Form ms3 - SBAR form ms3 - Leadership Thank You Letter ms3 Signatures: Dispatcher [employer] EDMS Destinee Sy Jose, RN RN ja1 Tayo Wade DO DO ms3 Michele Lewis, RN RN rs5 Corrections: (The following items were deleted from the chart) 12:06 12:06 BASIC METABOLIC PANEL+C.LAB.BRZ ordered. EDMS EDMS 12:06 12:06 CBC+H.LAB.BRZ ordered. EDMS EDMS 12:06 12:06 HEPATIC FUNCTION+C.LAB.BRZ ordered. EDMS EDMS 12:06 12:06 MAGNESIUM+C.LAB.BRZ ordered. EDMS EDMS 12:06 12:06 PROBNP+C.LAB.BRZ ordered. EDMS EDMS 12:06 12:06 Troponin High Sensitivity+C.LAB.BRZ ordered. EDMS EDMS 12:06 12:06 Urinalysis+U.LAB.BRZ ordered. EDMS EDMS 12:06 12:06 Chest Single View+RAD.RAD.BRZ ordered. EDMS EDMS 16:24 14:27 ms3 ja1
--- NOTE | 2024-08-13 14:27 | ER ---
Nurse's Notes [facility] Name: Julianna Kearns Age: 74 yrs Sex: Male : 1950 Arrival Date: 08/13/2024 Time: 11:41 Bed 13 Private MD: Diagnosis: Elevated Troponin;Acute kidney failure, unspecified;Muscle weakness (generalized) Presentation: 08/13 11:42 Chief complaint: EMS states: Toned out EMS for generalized weakness and wound check to rs5 left leg. Coronavirus screen: At this time, the client does not indicate any symptoms associated with coronavirus-19. Ebola Screen: No symptoms or risks identified at this time. Initial Sepsis Screen: Does the patient meet any 2 criteria? No. Patient's initial sepsis screen is negative. Does the patient have a suspected source of infection? No. Patient's initial sepsis screen is negative. Risk Assessment: Do you want to hurt yourself or someone else? Patient reports no desire to harm self or others. Onset of symptoms was August 13, 2024. Care prior to arrival: IV initiated. 20 GA, in the right hand. 11:42 Method Of Arrival: EMS: [facility] rs5 11:42 Acuity: VERONICA 3 rs5 Triage Assessment: 11:43 General: Appears in no apparent distress. uncomfortable, Behavior is calm, cooperative, rs5 Smells of. Pain: Denies pain. 12:30 General: Appears in no apparent distress. uncomfortable, Behavior is calm, cooperative. cm10 Neuro: No deficits noted. Level of Consciousness is awake, alert, obeys commands, Oriented to person, place, time, situation, Appropriate for age. Respiratory: No deficits noted. Airway is patent Respiratory effort is even, unlabored, Respiratory pattern is regular, symmetrical. Derm: Wound noted right leg and left leg. Historical: - Allergies: 11:43 PENICILLINS; rs5 - PMHx: 11:43 caridac stent; Atrial Fib; CHF; Diabetes - NIDDM; Hypercholesterolemia; Hypertension; rs5 Chronic obstructive lung disease; - PSHx: 11:43 cardiac stent; rs5 - Immunization history:: Adult Immunizations up to date. - Infectious Disease History:: Denies. - Social history:: Smoking status: Patient/guardian denies using tobacco, but has a distant history of tobacco abuse. Screenin:[facility] ED Fall Risk Assessment (Adult) History of falling in the last 3 months, cm10 including since admission No falls in past 3 months (0 pts) Confusion or Disorientation No (0 pts) Intoxicated or Sedated No (0 pts) Impaired Gait Yes (1 pt) Mobility Assist Device Used Yes (1 pt) Altered Elimination Yes (1 pt) Score/Fall Risk Level 3 or more points = High Risk Oriented to surroundings, Maintained a safe environment, Hourly rounding (assess needs \T\ fall precautionary measures) done. Abuse screen: Denies threats or abuse. Denies injuries from another. Nutritional screening: No deficits noted. Tuberculosis screening: No symptoms or risk factors identified. Assessment: 13:54 Reassessment: Patient appears in no apparent distress at this time. No changes from cm10 previously documented assessment. Patient and/or family updated on plan of care and expected duration. Pain level reassessed. Patient is alert, oriented x 3, equal unlabored respirations, skin warm/dry/pink. 14:40 Reassessment: Pt provided with sandwich and water at this time. cm10 Vital Signs: 11:42 BP 146 / 79; Pulse 71; Resp 17; Temp 98(O); Pulse Ox 94% on 2 lpm NC; rs5 12:30 BP 158 / 77; Pulse 64; Resp 16; Pulse Ox 94% on R/A; cm10 13:15 BP 162 / 80; Pulse 74; Resp 15; Pulse Ox 91% on R/A; cm10 14:00 BP 156 / 69; Pulse 68; Resp 13; Pulse Ox 91% on R/A; cm10 15:30 BP 162 / 81; Pulse 85; Resp 18; Pulse Ox 94% on 2 lpm NC; cm10 16:00 BP 162 / 78; Pulse 78; Resp 16; Pulse Ox 95% on 2 lpm NC; cm10 ED Course: 11:41 Patient arrived in ED. rs5 11:41 Charmaine Olmedo, ERICA is Primary Nurse. cm10 11:42 Tayo Wade DO is Attending Physician. ms3 11:43 Triage completed. rs5 12:23 Arm band placed on right wrist. Patient placed in an exam room, on a stretcher. cm10 12:23 Maintain EMS IV. Dressing intact. Good blood return noted. Site clean \T\ dry. Gauge \T\ cm 10 site: 22g right hand. Flushed with 10 mL NS. 12:28 XRAY Chest (1 view) In Process Unspecified. EDMS 12:46 Patient has correct armband on for positive identification. Bed in low position. Call cm10 light in reach. Side rails up X2. Provided Education on: ER process and procedures.. Client placed on continuous cardiac and pulse oximetry monitoring. NIBP monitoring applied. monitor car operator on. 12:47 Initial lab(s) drawn, by me, sent to lab. Urine collected: EKG done, by ED staff, cm10 reviewed by Tayo Wade DO. 12:48 Urinalysis w/ reflexes Sent. cm10 12:48 Basic Metabolic Panel Sent. cm10 12:48 CBC with Diff Sent. cm10 12:48 LFT's Sent. cm10 12:48 Magnesium Sent. cm10 12:48 NT PRO-BNP Sent. cm10 12:48 Troponin HS Sent. cm10 13:28 Lab(s) recollected, by me, sent to lab. Inserted saline lock: 22 gauge in right cm10 antecubital area, using aseptic technique. Blood collected. Flushed with 10 mL NS. 13:54 Warm blanket given. Cleaned of incontinence. Linen changed. cm10 14:26 Wilner Zhang is Hospitalizing Provider. ms3 15:15 1515 CM met with and his Justa at the bedside in the ED exam room. ane Patient identified by name and . Demographic sheet confirmed. PCP Dr. Vanessa Mendoza in [place], [place].No MPOA in place. Patient states he lives with his Justa in a 2 story home. Justa states they no longer go upstairs. DME in the home includes a walker, wheelchair, shower chair and home oxygen through [employer] [facility]. is on 2L at all times. HH for OT and wound care [facility]. Patient also has Veterans Benefits and Justa states the [facility]. Justa states patient also carries [facility]. The preferred plan is to return home upon discharge and continue with HH services. Justa states she will be 's transportation home. CM team will continue to follow and coordinate care during this hospital stay. 16:51 Report faxed at [phone], confirmed received at [id number]. cm10 16:54 No provider procedures requiring assistance completed. Patient admitted, IV remains in cm10 place. Administered Medications: No medications were administered Medication: 14:23 VIS not applicable for this client. cm10 Outcome: 14:27 Decision to Hospitalize by Provider. ms3 17:34 Admitted to Med/surg accompanied by tech, via stretcher, room 202, cm10 17:34 Condition: good 17:34 Instructed on the need for admit, 17:34 Patient left the ED. cm10 Signatures: Dispatcher [employer] EDMS Tayo Wade, DO ms3 Michele Lewis RN RN rs5 Charmaine Olmedo RN RN cm10 Alma Culp RN RN bill
[2024-08-13 14:33] LABS: Anisocytosis 1+; Blood Morphology Comment NOTED (NOT SEEN); Platelet Estimate ADEQ; White Blood Cell Scan OK (OK)
[2024-08-13] MEDS: SODIUM ZIRCONIUM CYCLOSILICATE 10 GM/PKT PO ONE (18:56)
[2024-08-13] MEDS: HEPARIN 5000 UNIT/ML 1 ML VIAL SQ SCH (18:58)
--- NOTE | 2024-08-13 20:01 | P.HP ---
Patient History Date of Service: 08/13/24 Reason for admission: Weakness, NSTEMI, CKD History of Present Illness: Julianna Kearns is a 74 year old male with Pmhx of caridac stent, Atrial Fib, CHF, Diabetes - NIDDM, Hypercholesterolemia, Hypertension, Chronic obstructive lung disease, and bilateral lower extremity ulcers who presents to the ED with weakness that started this week. [facility]. His reports he has grown weak and was not able to stand today. While in the ED, his tropnin is elevate at 71, BUN/creatinine 64/3.96, GFR 15, Serum glucose 140, Mag 2.8, Potassium 5.9, BNP 4472, UA negative for infectious process. Chest xray reports "Similar prominence of the pulmonary interstitium could reflect an infectious or inflammatory process. Edema less likely." Julianna will be admitted to hospitalist service for further evaluation and stefano tment of NSTEMI, Afib, Fluid volume overload. Allergies Penicillins Adverse Reaction (Verified 01/24/23 22:00) Hives Home Medications: Apixaban [Eliquis *] 5 mg PO BID 01/30/24 Ascorbic Acid [Vitamin C] 500 mg PO DAILY 01/30/24 Aspirin [Aspirin EC] 81 mg PO DAILY 01/30/24 Atorvastatin Calcium [Lipitor*] 80 mg PO BEDTIME 01/30/24 Cyanocobalamin (Vitamin B-12) [Vitamin B-12] 1,000 mcg PO DAILY 01/30/24 Empagliflozin [Jardiance] 25 mg PO DAILY 01/30/24 Ferrous Sulfate 324 mg PO DAILY 01/30/24 Sennosides [Senna] 8.6 mg PO DAILY 01/30/24 Ergocalciferol (Vitamin D2) [Vitamin D2] 50,000 unit PO EVERY 7TH DAY 05/09/24 Insulin Glargine-Yfgn 10 unit SQ DAILY 05/09/24 Melatonin 5 mg PO BEDTIME 05/09/24 Metoprolol Succinate [Toprol Xl*] 50 mg PO BEDTIME 05/09/24 Amlodipine [Norvasc*] 10 mg PO DAILY #30 tab 05/10/24 Gabapentin [Neurontin*] 100 mg PO TID #90 cap 05/10/24 Hydralazine [Apresoline*] 50 mg PO TID tab 05/10/24 Pantoprazole [Protonix Tab*] 40 mg PO DAILY #30 tab 05/10/24 Vits A and D/White Pet/Lanolin [A and D Ointment] 1 laquita TP BID #1 tube 05/10/24 dexAMETHasone [Dexamethasone] 2 mg PO BID #12 tab 05/10/24 Bumetanide [Bumex*] 1 mg PO BID 30 Days #60 tab 06/15/24 - Past Medical/Surgical History Diabetic: Yes -: hypertension -: hyperlipidemia -: Atrial fibrillation -: IDDM -: Coronary artery disease -: Aortic stenosis -: CHF -: Cardiac Catheterization with stent placement -: Right leg surgery Psychosocial/ Personal History: Patient is . - Family History Brother -: Heart disease, Hypertension - Social History Smoking Status: Never smoker Alcohol use: Yes CD- Drugs: No Caffeine use: Yes Review of Systems General: Weakness Physical Examination - Vital Signs Temperature: 98 F Blood Pressure: 162/78 Pulse: 78 Respirations: 16 - Physical Exam General: In no apparent distress, Oriented x3, Other (lethargic) HEENT: Atraumatic, Normocephalic, PERRLA Neck: Supple, 2+ carotid pulse no bruit Respiratory: Clear to auscultation bilaterally, Normal air movement Cardiovascular: No edema Capillary refill: <2 Seconds Gastrointestinal: Normal bowel sounds, Soft and benign Musculoskeletal: No clubbing Integumentary: No rashes, Venous stasis ulcer Neurological: Normal speech - Studies Laboratory Data (last 24 hrs) 08/13/24 08/13/24 13:25 13:25 WBC 6.30 Hgb 17.7 Hct 56.7 H Plt Count 284 Sodium 135 L Potassium 5.9 H BUN 64 H Creatinine 3.96 H Glucose 140 H Magnesium 2.8 H Total Bilirubin 0.5 AST 19 ALT 17 Alkaline Phosphatase 74 Assessment and Plan - Plan Assessment and Plan NSTEMI Fluid volume overload 2/2 congestive heart failure Chronic Pulmonary interstitium Aortic stenosis CAD with stent History of Atrial fibrillation -Chest xray reports "Similar prominence of the pulmonary interstitium could reflect an infectious or inflammatory process. Edema less likely." -Trop 71.7, serial pending -BNP 4472 -lasix BID -Cardiology consulted CKD -consult Dr. Mitchell -BUN/creatinine 64/3.96, GFR 15 -hold IVF DM-IDDM -Serum glucose 140 -acuccheck with SSI Bilateral lower extremity venous stasis ulcer -wound care consulted, Dr. Olmedo -drew BID HTN/HLD -continue home medications -hydralazine PRN Hyperkalemia Hypermagnasemia -K 5.9, mag 2.8 -Lokelma x 1 -monitor in AM labs DVT ppx heparin Full code LOS 2 day Discharge Plan: Home Plan to discharge in: 48 Hours - Advance Directives Does patient have a Living Will: Yes Does patient have a Durable POA for Healthcare: Yes
[2024-08-14 10:43] LABS: Magnesium 2.5 mg/dL (1.6-2.4); Phosphorus 4.1 mg/dL (2.5-4.9)
[2024-08-14 10:44] LABS: Troponin High Sensitivity 115.1 pg/mL (<58.9)
[2024-08-14 11:57] LABS: Absolute Basophils 0.1 K/uL (0-0.5); Absolute Eosinophils 0.2 K/uL (0-0.5); Absolute Lymphocytes (CBC) 0.9 K/uL (0.7-4.9); Absolute Neutrophil 5.4 K/uL (1.8-8.0); Basophils % 0.9 % (0-1.3); Hematocrit 53.2 % (39.6-49.0); Hemoglobin 16.7 g/dL (13.6-17.9); Lymphocytes % 12.2 % (15.3-44.8); MCH 27.4 pg (27.0-35.0); MCHC 31.5 g/dL (32.0-36.0); MPV 8.5 fL (7.6-11.3); Monocytes % 13.5 % (3.3-12.3); Neutrophils % 70.4 % (41.7-73.7); Platelets 263 thou/uL (152-406); RBC Red Blood Cell Count 6.11 M/uL (4.33-5.43); Red Cell Distribution Width 20.3 % (12.1-15.2)
[2024-08-14] MEDS: FLU (Fluarix Triv) TS24-25(6MOS UP)/PF 45 MCG/0.5 ML Syringe IM ONE (12:00)
[2024-08-14] MEDS: NA CHLORIDE 0.9% 1,000 ML IV SCH (12:17)
[2024-08-14 12:20] LABS: Blood Morphology Comment NOT SEEN (NOT SEEN); Platelet Estimate ADEQ; White Blood Cell Scan OK (OK)
--- NOTE | 2024-08-14 14:01 | P.PN ---
Date of Service: 08/14/24 Subjective Awake and conversing well slept when therapy visited No new complaints ROS 10 point ROS as noted above, otherwise negative Physical Exam General: alert and Oriented x3, NAD HEENT: Atraumatic, Normocephalic, PERRLA Neck: Supple, 2+ carotid pulse no bruit Respiratory: Clear to auscultation bilaterally, Normal air movement, on 2 LNC Cardiovascular: RRR, systolic murmur noted Capillary refill: <2 Seconds Gastrointestinal: Normal bowel sounds, Soft and benign on palpation Musculoskeletal: No clubbing Integumentary: No rashes, Venous stasis ulcer Neurological: Normal speech Vitals Reviewed Problem list NSTEMI Fluid volume overload 2/2 congestive heart failure Chronic Pulmonary interstitium Aortic stenosis CAD with stent History of Atrial fibrillation CKD DM-IDDM Bilateral lower extremity venous stasis ulcer HTN/HLD Hyperkalemia Hypermagnasemia Assessment and Plan NSTEMI Fluid volume overload 2/2 congestive heart failure Chronic Pulmonary interstitium Aortic stenosis CAD with stent History of Atrial fibrillation -Chest xray reports "Similar prominence of the pulmonary interstitium could reflect an infectious or inflammatory process. Edema less likely." -Trop 71.7, 76.6, 115.1 -BNP 4472 -lasix stopped -Cardiology consulted CKD -consult Dr. Mitchell -BUN/creatinine 5/3.41, GFR 18 -gentle IVF DM-IDDM -Serum glucose 109 -acuccheck with SSI Bilateral lower extremity venous stasis ulcer -wound care consulted, Dr. Olmedo -lasix stopped -kerlix applied HTN/HLD -continue home medications -hydralazine PRN Hyperkalemia Hypermagnasemia -K 5.0, mag 2.5 -Lokelma x 1 (08/13) -monitor in AM labs DVT ppx heparin Full code LOS 2 day Discharge Plan: Home Plan to discharge in: 48 Hours
--- NOTE | 2024-08-14 14:30 | RAD REPORT ---
EXAMINATION: US RENAL ULTRASOUND CLINICAL INDICATION: KAITLIN TECHNIQUE: Real-time ultrasonography of the abdomen was performed. COMPARISON: 11/20/2023 FINDINGS: RIGHT KIDNEY: Right renal length measurement: 9.3 x 5.5 x 3.8 cm. Normal in echogenicity and size. No calculus, solid mass or hydronephrosis. LEFT KIDNEY: Left renal length measurement: 9.6 x 5.2 x 3.5 cm. Normal in echogenicity and size. No c alculus, solid mass or hydronephrosis. URINARY BLADDER: Incompletely distended without gross abnormality detected. ADDITIONAL FINDINGS: None. IMPRESSION: Unremarkable renal ultrasound.
--- NOTE | 2024-08-14 14:31 | CON ---
Date of Consultation: 08/14/2024 Reason For Consultation: Elevated BUN and creatinine. Fluid management. 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 Echocardiogram done in 2021. 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 The patient came to the hospital secondary to weakness and recurrent fall, difficulty ambulatin g, found to have elevation in BUN, creatinine, creatinine 3.9 with GFR of 15. For that reason, we braga ve been consulted. The patient admit poor intake, admitted shortness of breath and swelling in the l eg. The patient denied taking any nonsteroidal. No recent change in his medication. The patient la st seen in the office year back. No change in medication. The patient found also to have hyperkalem ia. Past Medical History: Includes: 1.Diabetes complicated with neuropathy and nephropathy. 2.Hyperlipidemia. 3.Congestive heart failure, ejection fraction of 40%. 4.Aortic stenosis. 5.CAD. 6.Chronic kidney disease stage 3B/4. 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 Past Surgical History: Include cardiac cath, right leg surgery. Home Medications: Include Eliquis, vitamin C, atorvastatin, ergocalciferol, melatonin, metoprolol, a mlodipine, hydralazine, pantoprazole, dexamethasone, and Bumex 1 mg b.i.d. Family History: Positive for hypertension and end-stage renal disease. Social History: Denied smoking. Active alcohol. Denied drugs abuse. Review of Systems: Head and Neck: No red eye. No ear pain. GI: Decreased intake. : No polyuria, no dysuria. No hematuria. DIALYSIS PATIENT CARE TECHNICIAN: Not applicable. Respiratory: Has shortness of breath. Cardiovascular: Has leg swelling. Endocrine: No polydipsia. Skin: No rash. Neuro: Has neuropathy. Musculoskeletal: Has leg pain. Has recurrent fall. Physical Examination: Vital Signs: When I saw the patient, the patient lying in bed. Blood pressure 178/77, pulse of 78. Chest: Clear to auscultation. Heart: S1, S2. Regular. Systolic murmur. Abdomen: Soft, nontender. Extremity: Dressing both feet. Neurologic: Alert. No focality. Laboratory Data: Back in July 2024; BUN 29, creatinine 2.2, GFR of 30. On this admission, sodium 135, potassium 5.9, bicarb 23, BUN 64, creatinine 3.9, GFR of 15. WBC 6.3, hemoglobin 17.7, platele t 284. Current Medications: The patient on include heparin, hydralazine, Tylenol, Lasix, Lokelma. Assessment And Plan: 1.Acute kidney injury secondary to prerenal over diuresis/progression of the disease complicated wit h hyperkalemia. 2.I am going to hold the Bumex. 3.Start the patient on gentle hydration. We will send for basic workup and we will follow up the jeannette cheema. 4.Hyperkalemia secondary to renal failure. I agree with Angelita. We will send for TSH. We will fo llow up. We will start the patient on hydration. 5.Hypertension with the presence of acute kidney injury. Hold Bumex. 6.Congestive heart failure, looked to me currently normal volume to the dry side. Hold Bumex. Star t hydration. We will follow up with Cardiology. 7.Cellulitis of the legs. We will follow up with primary. 8.Recurrent fall as by primary. Thank you Dr. Zhang for allowing us to participate in the care of your patient. Time spent examinin g the patient [id number], reviewing data, lab and radiology, placing order, discussing the case wit h the patient, discussing the case with the user experience team lead including hospitalist and nursing staff more than 75 minutes. OSVALDO Voice ID: [id number] Report ID: [id number]
[2024-08-14] MEDS: HYDRALAZINE HCL 20 MG/ML VIAL IV PRN (16:30)
[2024-08-14] MEDS: ACETAMINOPHEN 325 MG TABLET PO PRN (16:31)
[2024-08-14] MEDS: HYDROCODONE/APAP 5/325 MG TAB PO PRN (19:15)
[2024-08-14] MEDS ORDERED: FUROSEMIDE 40 MG/4 ML VIAL IV SCH (19:56)
[2024-08-14] MEDS: METOPROLOL XL 50 MG TAB PO SCH (21:42)
[2024-08-14] MEDS: APIXABAN 2.5 MG TABLET PO SCH (21:42)
[2024-08-14] MEDS: HYDRALAZINE HCL 25 MG TABLET PO SCH (21:42)
[2024-08-14] MEDS: Mupirocin NASAL 2 APPL/1 GM TUBE NAS SCH (21:43)
[2024-08-15 06:25] LABS: Absolute Basophils 0.1 K/uL (0-0.5); Absolute Eosinophils 0.3 K/uL (0-0.5); Absolute Monocytes 0.7 K/uL (0.1-1.3); Basophils % 1.2 % (0-1.3); Eosinophils % 4.8 % (0-4.4); Hematocrit 49.7 % (39.6-49.0); Hemoglobin 15.8 g/dL (13.6-17.9); Lymphocytes % 13.5 % (15.3-44.8); MCH 27.4 pg (27.0-35.0); MCHC 31.7 g/dL (32.0-36.0); MCV 86.3 fL (80-100); MPV 8.1 fL (7.6-11.3); Monocytes % 9.9 % (3.3-12.3); Neutrophils % 70.6 % (41.7-73.7); Nucleated Red Blood Cells % 0.1 % (0-0); Platelets 275 thou/uL (152-406); RBC Red Blood Cell Count 5.76 M/uL (4.33-5.43); Red Cell Distribution Width 20.3 % (12.1-15.2)
[2024-08-15 06:48] LABS: Albumin 2.1 g/dL (3.4-5.0); Magnesium 2.4 mg/dL (1.6-2.4); Phosphorus 3.4 mg/dL (2.5-4.9); Thyroid Stimulating Hormone 2.32 uIU/mL (0.358-3.740)
--- NOTE | 2024-08-15 13:12 | P.CNS ---
Date of Consult: 08/15/24 Chief Complaint: Weakness, NSTEMI, CKD History of Present Illness: Patient with PMH of CAD, S/P PCI, CHF, , AF, presented with generlaized weakness, denies chest pain, no palpitations, no dizzy speels, no syncope, his SOB is at his baseline. Allergies Penicillins Adverse Reaction (Verified 01/24/23 22:00) Hives Home Medications: Apixaban [Eliquis *] 5 mg PO BID 01/30/24 Ascorbic Acid [Vitamin C] 500 mg PO DAILY 01/30/24 Aspirin [Aspirin EC] 81 mg PO DAILY 01/30/24 Atorvastatin Calcium [Lipitor*] 80 mg PO BEDTIME 01/30/24 Cyanocobalamin (Vitamin B-12) [Vitamin B-12] 1,000 mcg PO DAILY 01/30/24 Empagliflozin [Jardiance] 25 mg PO DAILY 01/30/24 Ferrous Sulfate 324 mg PO DAILY 01/30/24 Sennosides [Senna] 8.6 mg PO DAILY 01/30/24 Ergocalciferol (Vitamin D2) [Vitamin D2] 50,000 unit PO EVERY 7TH DAY 05/09/24 Insulin Glargine-Yfgn 10 unit SQ DAILY 05/09/24 Melatonin 5 mg PO BEDTIME 05/09/24 Metoprolol Succinate [Toprol Xl*] 50 mg PO BEDTIME 05/09/24 Amlodipine [Norvasc*] 10 mg PO DAILY #30 tab 05/10/24 Gabapentin [Neurontin*] 100 mg PO TID #90 cap 05/10/24 Hydralazine [Apresoline*] 50 mg PO TID tab 05/10/24 Pantoprazole [Protonix Tab*] 40 mg PO DAILY #30 tab 05/10/24 Vits A and D/White Pet/Lanolin [A and D Ointment] 1 laquita TP BID #1 tube 05/10/24 dexAMETHasone [Dexamethasone] 2 mg PO BID #12 tab 05/10/24 Bumetanide [Bumex*] 1 mg PO BID 30 Days #60 tab 06/15/24 - Past Medical/Surgical History Diabetic: Yes -: hypertension -: hyperlipidemia -: Atrial fibrillation -: IDDM -: Coronary artery disease -: Aortic stenosis -: CHF -: Cardiac Catheterization with stent placement -: Right leg surgery Psychosocial/ Personal History: Patient is . - Family History Brother Medical History: Heart disease, Hypertension - Social History Smoking Status: Former smoker Alcohol use: Yes CD- Drugs: No Caffeine use: Yes Place of Residence: Home Review of Systems 10-point ROS is otherwise unremarkable Physical Examination Temp Pulse Resp BP Pulse Ox 98.0 F 77 18 158/78 H 95 08/15/24 12:00 08/15/24 12:00 08/15/24 12:00 08/15/24 12:00 08/15/24 12:00 General: Alert, In no apparent distress HEENT: Atraumatic, PERRLA, Mucous membr. moist/pink, EOMI, Sclerae nonicteric Neck: Supple, 2+ carotid pulse no bruit, No LAD, Without JVD or thyroid abnormality Respiratory: Clear to auscultation bilaterally, Normal air movement Cardiovascular: Regular rate/rhythm, Normal S1 S2 Gastrointestinal: Normal bowel sounds, No tenderness Musculoskeletal: No tenderness Integumentary: No rashes Neurological: Normal gait, Normal speech, Normal tone, Normal affect Lymphatics: No axilla or inguinal lymphadenopathy - Problems (1) CHF (congestive heart failure) Current Visit: No Status: Acute Plan: Patient looks euvolemic on exam with worsening kidney function, agree with holding Bumex at this point and gentle hydration as per Nephrology recommendations. continue to monitor volume status, input and output and kidney function closley get repeated echo Qualifiers: (2) Afib Current Visit: No Status: Chronic Plan: continue Toprol XL and Eliquis. Qualifiers: (3) Coronary artery disease Current Visit: No Status: Chronic Plan: mid leak in troponin with no significant delta, ASA 81 mg daily Lipitor 40 mg daily Qualifiers:
--- NOTE | 2024-08-15 15:22 | P.PN ---
Date of Service: 08/15/24 Subjective Conversing well, very alert, more comfortable No new complaints ROS 10 point ROS as noted above, otherwise negative Physical Exam General: AAO x3, NAD HEENT: Atraumatic, Normocephalic, PERRLA Neck: Supple, 2+ carotid pulse no bruit Respiratory: Clear to auscultation bilaterally, Normal air movement, on RA Cardiovascular: RRR, systolic murmur noted, S1 S2 present Capillary refill: <2 Seconds Gastrointestinal: Normal bowel sounds, Soft on palpation, NT/ND Musculoskeletal: No clubbing Integumentary: No rashes, Venous stasis ulcer Neurological: Normal speech Vitals Reviewed Problem list NSTEMI Fluid volume overload 2/2 congestive heart failure Chronic Pulmonary interstitium Aortic stenosis CAD with stent History of Atrial fibrillation CKD DM-IDDM Bilateral lower extremity venous stasis ulcer HTN/HLD Hyperkalemia Hypermagnasemia Assessment and Plan NSTEMI Fluid volume overload 2/2 congestive heart failure Chronic Pulmonary interstitium Aortic stenosis CAD with stent History of Atrial fibrillation -Chest xray reports "Similar prominence of the pulmonary interstitium could reflect an infectious or inflammatory process. Edema less likely." -Trop 71.7, 76.6, 115.1 -BNP 4472 -lasix stopped -ICF -Cardiology consulted -ECHO results pending CKD -consult Dr. Mitchell -BUN/creatinine 53/2.91, GFR 22 -gentle IVF DM-IDDM -Serum glucose 100 -acuccheck with SSI Bilateral lower extremity venous stasis ulcer -wound care consulted, Dr. Olmedo -jenylijason applied HTN/HLD -continue home medications -hydralazine PRN Hyperkalemia Hypermagnasemia -K 5.0, mag 2.4 -Lokelma x 1 (08/13) -monitor in AM labs DVT ppx heparin Full code LOS 2 day Discharge Plan: Home Plan to discharge in: 48 Hours <Sandi Escobar - Last Filed: 08/15/24 15:06> Patient seen and examined, plan of care discussed with Ms. Baumanney. Patient states he is getting stronger. He participated with therapy today. He is tolerating diet. Patient evaluated by nephrology and started on IV hydration for KAITLIN and dehyd ration. Wound care team input appreciated. Patient has flaking dry skin which is improving. Continue PT. Nephrology to follow for KAITLIN management. Renal diet. Watch for hyperkalemia and treat with Lokelma as needed. <keith lambert - Last Filed: 08/16/24 15:57>
--- NOTE | 2024-08-15 15:51 | PN ---
Date of Progress Note: 08/15/2024 Subjective: The patient was admitted to the hospital with acute kidney injury secondary to prerenal, dehydration, over-diuresis. The patient had hyperkalemia and we started the patient on IV hydration yesterday. Kidney function has improved. Physical Examination: Vital Signs: Blood pressure 158/78, pulse of 77, afebrile. Chest: Clear to auscultation. Heart: S1, S2, regular. Abdomen: Soft, nontender. Extremities: Trace edema. Dressing on the left foot. Laboratory Data: WBC 7.1, hemoglobin 15.8. Sodium 141, potassium 5, bicarb 23, BUN 53, creatinine 2 .9. GFR 22. Calcium 9, phosphorus 3.4, magnesium 2.4. CK 346. Albumin 2.1. Current Medications: The patient on include: 1.Eliquis. 2.Hydralazine 50 t.i.d. 3.Metoprolol 50 q.h.s. 4.Hydrocodone. Assessment And Plan: 1.Acute kidney injury secondary to prerenal, over-diuresis, recovered, trending back close to his ba seleben. I am going to hold IV fluid. We will monitor on oral hydration. 2.Hypertension, controlled, optimal. Keep holding any TESSA inhibitor or ARB. 3.Diabetes, as by primary. 4.Hyperkalemia, recovered, resolved. 5.Rhabdomyolysis. Kidney function improved. Discontinue IV fluid. 6.Elevation in troponin. As by Cardiology. ROBERT/LORNE Voice ID: [id number] Report ID: [id number]
[2024-08-15 15:52] LABS: Specific Gravity 1.014 (1.005-1.030); Sqamous Epithelial None Seen /HPF (None Seen); Urine Bacteria <20 /HPF (<20); Urine Bilirubin NEGATIVE (Negative); Urine Blood Trace (Negative); Urine Clarity Turbid (Clear); Urine Color Light-Yellow (Yellow); Urine Crystals Unidentified Few /HPF (None Seen); Urine Culture Reflex Order NOT NEEDED; Urine Glucose 4+ (Negative); Urine Ketones NEGATIVE (Negative); Urine Microscopic Reflex YN ORDER UMIC; Urine Mucus Slight /HPF (None Seen); Urine Nitrite NEGATIVE (Negative); Urine Protein 3+ (Negative); Urine RBC <5 /HPF (None Seen); Urine Urobilinogen Normal (Normal); Urine WBC <5 /HPF (<5); Urine pH 5.5 (5.0-7.0)
[2024-08-15 15:53] LABS: UR PROTEIN 236.9 mg/dL (<11.9); Urine Protein/Creatinine Ratio 2.89 ratio (<0.15)
[2024-08-16 05:14] LABS: Absolute Basophils 0.1 K/uL (0-0.5); Absolute Eosinophils 0.3 K/uL (0-0.5); Absolute Lymphocytes (CBC) 1.1 K/uL (0.7-4.9); Absolute Monocytes 0.6 K/uL (0.1-1.3); Absolute Neutrophil 4.1 K/uL (1.8-8.0); Basophils % 1.3 % (0-1.3); Eosinophils % 5.3 % (0-4.4); Hematocrit 51.5 % (39.6-49.0); Hemoglobin 15.9 g/dL (13.6-17.9); MCH 27.1 pg (27.0-35.0); MCHC 30.9 g/dL (32.0-36.0); MCV 87.7 fL (80-100); MPV 8.3 fL (7.6-11.3); Monocytes % 9.7 % (3.3-12.3); Neutrophils % 65.7 % (41.7-73.7); Platelets 268 thou/uL (152-406); RBC Red Blood Cell Count 5.88 M/uL (4.33-5.43)
[2024-08-16 05:34] LABS: Albumin 2.2 g/dL (3.4-5.0); Anion Gap 11.4 mEq/L (5.0-15.0); Magnesium 2.1 mg/dL (1.6-2.4); Phosphorus 2.9 mg/dL (2.5-4.9); Potassium 5.4 mEq/L (3.5-5.1)
[2024-08-16] MEDS: PNEUMOCOCCAL VACCINE 0.5 ML IMVAC ONE (08:00)
[2024-08-16] MEDS: MEDIHONEY 44 ML TOPICAL TUBE TOP SCH (08:56)
[2024-08-16] MEDS ORDERED: FLUOCINONIDE 0.05% CREAM 30GM TOP PRN (09:00)
--- NOTE | 2024-08-16 14:37 | ECHO ---
HEIGHT: 6 ft 0 in WEIGHT: 195 lb 2 oz DATE OF STUDY: 08/15/[address]: Faraz Duque MD 2-DIMENSIONAL: YES M.MODE: YES DOPPLER: YES COLOR FLOW: YES TDS: NO PORTABLE: YES DEFINITY: NO BUBBLE STUDY: NO DIAGNOSIS: CONGESTIVE HEART FAILURE, AORTIC STENOSIS CARDIAC HISTORY: CATHERIZATION: NO SURGERY: NO PROSTHETIC VALVE: NO PACEMAKER: NO MEASUREMENTS (cm) DIASTOLIC (NORMALS) SYSTOLIC (NORMALS) IVSd 1.2 (0.6-1.2) LA Diam 3.3 (1.9-4.0) LVEF 55-60% LVIDd 3.4 (3.5-5.7) LVIDs 2.4 (2.0-3.5) %FS 29% LVPWd 1.3 (0.6-1.2) Ao Diam 3.1 (2.0-3.7) 2 DIMENSIONAL ASSESSMENT: RIGHT ATRIUM: NORMAL LEFT ATRIUM: NORMAL RIGHT VENTRICLE: NORMAL LEFT VENTRICLE: SEVERE LEFT VENTRICULAR HYPERTROPHY TRICUSPID VALVE: MILD MITRAL TRICUSPID REGURGITATION MITRAL VALVE: MILD MITRAL REGURGITATION PULMONIC VALVE: NORMAL AORTIC VALVE: HEAVILY CALCIFIED PERICARDIAL EFFUSION: NONE AORTIC ROOT: NORMAL LEFT VENTRICULAR WALL MOTION: NORMAL. DOPPLER/COLOR FLOW: SEE BELOW. COMMENTS: 1. NORMAL LEFT VENTRICULAR EJECTION FRACTION 55-60%. 2. MODERATE TO SEVERE CONCENTRIC LEFT VENTRICULAR HYPERTROPHY. 3. MILD MITRAL AND TRICUSPID REGURGITATION. 4. HEAVILY CALCIFIED AORTIC VALVE WITH LIKEY MODERATE AORTIC STENOSIS. 5. SEVERE PULMONARY HYPERTENSION WITH RIGHT VENTRICULAR SYSTOLIC PRESSURE >80 mmHg. TECHNOLOGIST: ELIZA CANALES
[2024-08-16] MEDS: SODIUM ZIRCONIUM CYCLOSILICATE 10 GM/PKT PO SCH (15:55)
--- NOTE | 2024-08-16 18:37 | P.PN ---
Subjective Date of Service: 08/16/24 Chief Complaint: Weakness, NSTEMI, CKD Patient states he feels much better today. He has good appetite and eating well. He reports improvement in itching in his legs. He ambulated with therapy yesterday. Physical Examination - Vital Signs Temperature: 96.8 F Blood Pressure: 147/71 Pulse: 85 Respirations: 18 Pulse Ox (%): 95 Assessment And Plan - Plan Physical Exam General: AAO x3, NAD HEENT: Atraumatic, Normocephalic, PERRLA Neck: Supple, 2+ carotid pulse no bruit Respiratory: Clear to auscultation bilaterally, Normal air movement, on RA Cardiovascular: RRR, systolic murmur noted, S1 S2 present Capillary refill: <2 Seconds Gastrointestinal: Normal bowel sounds, Soft on palpation, NT/ND Musculoskeletal: No clubbing Integumentary: Flaky dry xerotic skin bilateral lower extremities, venous stasis ulcer Neurological: No focal motor deficit. Vitals Reviewed Problem list NSTEMI Fluid volume overload 2/2 congestive heart failure Chronic Pulmonary interstitium Aortic stenosis CAD with stent History of Atrial fibrillation CKD DM-IDDM Bilateral lower extremity venous stasis ulcer HTN/HLD Hyperkalemia Hypermagnasemia Assessment and Plan NSTEMI Chronic diastolic heart failure Aortic stenosis CAD with stent History of Atrial fibrillation -Chest xray reports "Similar prominence of the pulmonary interstitium could reflect an infectious or inflammatory process. Edema less likely." -Trop 71.7, 76.6, 115.1 -Elevated troponin likely secondary to demand ischemia. -Cardiology input appreciated. -Patient appears compensated for CHF and appears to be dry. -Home dose Bumex on hold -Nephrology is hydrating with IV fluid. -ECHO report severe pulmonary hypertension and severe LVH. Dehydration Acute on chronic kidney disease stage IV Impaired mobility -Dr. Mitchell is following -Serum creatinine is improving with IV hydration -Continue IV fluid and monitor renal function -Functional status is slowly improving with hydration. -Continue PT -Patient desires to go home and does not want to go to any facility for rehab. -Anticipating home health with with PT. DM-IDDM -Serum glucose 100 -acuccheck with SSI Bilateral lower extremity venous stasis ulcer -wound care team input appreciated. -Wound care with Medihoney, Lidex and Edward wrap. HTN/HLD -continue home medications -hydralazine PRN Hyperkalemia Hypermagnasemia -K 5.0, mag 2.4 -Lokelma x 1 (08/13) -Monitor and administer Lokelma as needed for hyperkalemia. -Renal diet. DVT ppx heparin Full code Discharge Plan: Home
--- NOTE | 2024-08-16 20:09 | PN ---
Date of Progress Note: 08/16/2024 Subjective: Seen at the bedside. His breathing issues are improving slowly. Review of Systems: No chest pain. He has shortness of breath. No nausea, vomiting, diarrhea. No abdominal pain. All other systems reviewed are negative. Physical Examination: Vital Signs: Reviewed. Head and Neck: Pupils are equal, reactive to light. Intact eye movements. Positive JVD. No cervic al lymphadenopathy. Neck: Supple. Thyroid is not enlarged. Lungs: Clear to auscultation bilaterally. No rhonchi, rales, or crackles. No accessory muscle use. Heart: Regular with systolic ejection murmur in the aortic area. Abdomen: Soft. Bowel sounds positive. No organomegaly. No masses or hernia. No rigidity or rebou nd. Extremities: 3+ edema bilaterally with venous stasis ulceration. Neurologic: Alert, awake, oriented x3. No acute focal deficits appreciated. Investigations: BUN 49, creatinine 2.86. Assessment/recommendation: 1.Severe pulmonary hypertension. On echo, his right ventricular systolic pressure is above 80. Thi s could be primary arterial hypertension or diastolic dysfunction. Recommend right heart catheteriza tion to differentiate, to assess stability, to diurese without jeopardizing the kidney function. 2.Acute on chronic renal failure, improving and Nephrology is on the case. 3.Troponin elevation. The patient is asymptomatic. No chest pain. This is demand. SR/MODL Voice ID: [id number] Report ID: [id number]
--- NOTE | 2024-08-16 20:54 | PN ---
Date of Progress Note: 08/16/2024 Subjective: No overnight events. Creatinine is slowly improving. His potassium remains elevated. We will start the patient on daily Lokelma. Objective: Vital Signs: Temperature 96.8, pulse rate 88, blood pressure 160/80. General: Awake and alert. Looks chronically ill. Neck: Supple. No elevated JVD. Heart: Regular rhythm. Normal S1, S2. Chest: Clear to auscultation bilaterally. No rales or wheezes. Abdomen: Soft, nontender. Extremities: Trace edema. Superficial wound with chronic skin changes. Laboratory Data: Sodium 134, potassium 5.4, BUN 49, creatinine 2.8. Assessment And Plan: This is a 74-year-old male with past medical history of chroni c kidney disease, atrial fibrillation, congestive heart failure, diabetes mellitus, and chronic obstr uctive pulmonary disease who presented to the ER with complaints of lower extremity ulcers. Creatini ne upon presentation 3.9. 1.Acute kidney injury, improving, possibly due to the prerenal. Creatinine down to 2.8. IV fluid. Renal dose medication. Avoid NSAID and contrast. 2.Hyperkalemia, potassium 5.4. We will start the patient on daily Lokelma. 3.Diabetes mellitus. Continue insulin. 4.History of chronic obstructive pulmonary disease. Continue inhalers. 5.Atrial fibrillation, rate controlled. The patient is on Eliquis. 6.Lower extremity wounds. Continue care wound care. MANUEL Voice ID: [id number] Report ID: [id number]
[2024-08-16] MEDS: HYDRALAZINE HCL 25 MG TABLET PO SCH (21:01)
[2024-08-16] MEDS: APIXABAN 5 MG TABLET PO SCH (21:01)
[2024-08-16] MEDS: MELATONIN 3 MG TABLET PO PRN (22:06)
--- NOTE | 2024-08-17 11:35 | PN ---
Date of Progress Note: 08/17/2024 Subjective: The patient was admitted to the hospital with acute kidney injury secondary to prerenal. The patient was found to have severe pulmonary hypertension. Diuresis has been on hold. Kidney fu nction has been improved. The patient off oxygen. Physical Examination: Vital Signs: When I saw the patient, blood pressure 125/70, pulse of 89, afebrile. Chest: Faint rales bilateral. Heart: S1, S2. Systolic murmur. Abdomen: Soft, nontender. Extremities: Trace edema. Neurologic: Alert. No focality. No tremor. Diagnostic Data: Echocardiogram showing ejection fraction of 60%, moderate to severe concentrated ve ntricular hypertrophy, severe heavily calcified moderate aortic stenosis, severe pulmonary hypertensi on, right ventricular systolic of more than 80. Chest x-ray, cardiomegaly, mild congestion. WBC 6.2 , hemoglobin 15.9. Sodium 134, potassium 5.4, bicarb 21, BUN 49, creatinine 2.8, GFR up to 22, calci um 9.3, phosphorus 2.9, magnesium 2.1, albumin 2.2, corrected calcium is 10.9, PTH 217. PC ratio 2.9 . Assessment And Plan: 1.Acute kidney injury secondary to prerenal, over diuresis, recovered, back close to his baseline. I am going to keep holding the diuresis for the time being and we will monitor the patient. 2.Hyponatremia, depletional, recovering. Keep holding IV fluid. Hold the diuresis. 3.Hyperkalemia, marginal, secondary to renal failure. I do not see the need for any binder right no w. We will monitor. 4.Pulmonary hypertension. 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 The patient close back to his baseline. This is the best time if needed to proceed with cardiac cath. We will discuss with Cardiology. Discussed with the hospitalist. I am going to go ahead and add calcium channel abbey and we will follow up the patient. 5.Hypertension with the presence of pulmonary hypertension. I will add calcium channel abbey. De crease hydralazine. ROBERT/LORNE Voice ID: [id number] Report ID: [id number]
--- NOTE | 2024-08-17 12:54 | P.PN ---
Subjective Date of Service: 08/17/24 Chief Complaint: Weakness, NSTEMI, CKD Patient denies any new complain. He desires to go home He is eating well. Physical Examination - Vital Signs Temperature: 97.9 F Blood Pressure: 125/70 Pulse: 89 Respirations: 16 Pulse Ox (%): 92 Assessment And Plan - Plan Physical Exam General: AAO x3, NAD HEENT: Atraumatic, Normocephalic, PERRLA Neck: Supple, 2+ carotid pulse no bruit Respiratory: Clear to auscultation bilaterally, Normal air movement, on RA Cardiovascular: RRR, systolic murmur noted, S1 S2 present Gastrointestinal: Normal bowel sounds, Soft on palpation, NT/ND Musculoskeletal: No clubbing Integumentary: Flaky dry xerotic skin bilateral lower extremities, venous stasis ulcer Neurological: No focal motor deficit. Vitals Reviewed Problem list NSTEMI Fluid volume overload 2/2 congestive heart failure Severe pulmonary hypertension Aortic stenosis CAD with stent History of Atrial fibrillation CKD DM-IDDM Bilateral lower extremity venous stasis ulcer HTN/HLD Hyperkalemia Hypermagnasemia Assessment and Plan NSTEMI Chronic diastolic heart failure Aortic stenosis CAD with stent History of Atrial fibrillation Severe pulmonary hypertension -Trop 71.7, 76.6, 115.1 -Elevated troponin likely secondary to demand ischemia. -Cardiology input appreciated. -Patient appears compensated for CHF and appears to be dry. -Dr. Alvarez recommended right heart catheterization to further evaluate the severe pulmonary hypertension noted on the echocardiogram. -Home dose Bumex on hold Dehydration Acute on chronic kidney disease stage IV Impaired mobility -Dr. Mitchell is following -Serum creatinine is improved with IV hydration -Continue IV fluid and monitor renal function -Functional status is slowly improving. -Continue PT -Patient desires to go home and does not want to go to any facility for rehab. -Anticipating home health with with PT. DM-IDDM -Serum glucose 100 -acuccheck with SSI Bilateral lower extremity venous stasis ulcer -wound care team input appreciated. -Wound care with Medihoney, Lidex and Edward wrap. HTN/HLD -continue home medications -hydralazine PRN Hyperkalemia Hypermagnasemia -K 5.0, mag 2.4 -Lokelma x 1 (08/13) -Monitor and administer Lokelma as needed for hyperkalemia. -Renal diet. DVT ppx heparin Full code
[2024-08-17] MEDS: AMLODIPINE 10 MG TAB PO SCH (13:08)
--- NOTE | 2024-08-18 11:03 | PN ---
Date of Progress Note: 08/18/2024 Subjective: The patient was admitted to the hospital with acute kidney injury, rhabdomyolysis. The patient's kidney function has been improved. Physical Examination: Vital Signs: When I saw the patient, blood pressure 163/96, pulse of 78. Chest: Clear to auscultation. Heart: S1, S2. Regular. Abdomen: Soft, nontender. Extremities: Trace edema. Skin changes bilateral. Neurologic: Alert, no focality. Diagnostic Data: Latest lab data back in 08/16; hemoglobin 15.9, sodium 134, potassium 5.4, bicarb 2 1, BUN 49, creatinine 2.8, GFR 22, calcium 9.3, phosphorus 2.9, magnesium 2.1. Current Medications: The patient on include: 1.Amlodipine. 2.Metoprolol 50. 3.Tylenol. 4.Melatonin. Assessment And Plan: 1.Acute kidney injury secondary to prerenal/toxic ATN superimposed with rhabdomyolysis, recovered. Creatinine trending up. Keep holding IV fluid. We will follow up the lab today. 2.Chronic kidney disease stage 3B/4 secondary to diabetes nephropathy, hypertension, nephrosclerosis with acute kidney injury as above. 3.Hyperkalemia, resolved. 4.Rhabdomyolysis, resolved. 5.Hyperkalemia. We will follow up lab today. OSVALDO Voice ID: [id number] Report ID: [id number]
--- NOTE | 2024-08-18 12:18 | P.PN ---
Subjective Date of Service: 08/18/24 Chief Complaint: Weakness, NSTEMI, CKD Patient denies any new complain. He is eating well. No issues overnight. Physical Examination - Vital Signs Temperature: 97.8 F Blood Pressure: 163/96 Pulse: 78 Respirations: 12 Pulse Ox (%): 96 Assessment And Plan - Plan Physical Exam General: AAO x3, NAD Neck: Supple, 2+ carotid pulse no bruit Respiratory: Clear to auscultation bilaterally, Normal air movement, on RA Cardiovascular: RRR, systolic murmur noted, S1 S2 present Gastrointestinal: Normal bowel sounds, Soft on palpation, NT/ND Integumentary: Flaky dry xerotic skin bilateral lower extremities, venous stasis ulcer Neurological: No focal motor deficit. Vitals Reviewed Problem list NSTEMI Fluid volume overload 2/2 congestive heart failure Severe pulmonary hypertension Aortic stenosis CAD with stent History of Atrial fibrillation CKD DM-IDDM Bilateral lower extremity venous stasis ulcer HTN/HLD Hyperkalemia Hypermagnasemia Assessment and Plan NSTEMI Chronic diastolic heart failure Aortic stenosis CAD with stent History of Atrial fibrillation Severe pulmonary hypertension -Trop 71.7, 76.6, 115.1 -Elevated troponin likely secondary to demand ischemia. -Cardiology input appreciated. -Patient appears compensated for CHF and appears to be dry. -Dr. Alvarez recommended right heart catheterization to further evaluate the severe pulmonary hypertension noted on the echocardiogram. -Home Bumex is on hold. Dehydration Acute on chronic kidney disease stage IV Impaired mobility -Dr. Mitchell is following -Serum creatinine is improved with IV hydration -Status post IVF. -Renal function improved -Functional status is slowly improving. -Continue PT -Patient desires to go home and does not want to go to any facility for rehab. -Anticipating home health with with PT. DM-IDDM -acuccheck with SSI Bilateral lower extremity venous stasis ulcer -wound care team input appreciated. -Wound care with Medihoney, Lidex and Edward wrap. HTN/HLD -continue home medications -hydralazine PRN Hyperkalemia Hypermagnasemia -Lokelma x 1 (08/13) -Patient is on Lokelma daily for hyperkalemia. -Renal diet. DVT ppx heparin Full code
[2024-08-18 22:43] VITALS: BMI 24.4
[2024-08-19 06:11] LABS: Absolute Basophils 0.1 K/uL (0-0.5); Absolute Eosinophils 0.4 K/uL (0-0.5); Absolute Lymphocytes (CBC) 1.1 K/uL (0.7-4.9); Absolute Monocytes 0.7 K/uL (0.1-1.3); Absolute Neutrophil 4.2 K/uL (1.8-8.0); Basophils % 1.3 % (0-1.3); Eosinophils % 6.3 % (0-4.4); Hematocrit 47.9 % (39.6-49.0); Hemoglobin 15.2 g/dL (13.6-17.9); Lymphocytes % 17.1 % (15.3-44.8); MCH 27.4 pg (27.0-35.0); MCHC 31.8 g/dL (32.0-36.0); MCV 86.3 fL (80-100); MPV 8.3 fL (7.6-11.3); Monocytes % 10.7 % (3.3-12.3); Neutrophils % 64.6 % (41.7-73.7); Nucleated Red Blood Cells % 0.1 % (0-0); Platelets 280 thou/uL (152-406); RBC Red Blood Cell Count 5.55 M/uL (4.33-5.43); Red Cell Distribution Width 18.8 % (12.1-15.2)
[2024-08-19 06:24] LABS: Albumin 2.2 g/dL (3.4-5.0); Anion Gap 9.6 mEq/L (5.0-15.0); Magnesium 2.2 mg/dL (1.6-2.4); Phosphorus 3.3 mg/dL (2.5-4.9); Potassium 4.6 mEq/L (3.5-5.1)
[2024-08-19] MEDS: FLUOCINONIDE 0.05% CREAM 30GM TOP SCH (14:30)
--- NOTE | 2024-08-19 16:12 | PN ---
Date of Progress Note: 08/19/2024 Chief Complaint: Acute kidney injury, nonoliguric. Subjective: Renal function has been improving. The patient developed acute kidney injury due to ATN and rhabdomyolysis. The patient received IV fluids. He tolerates p.o. intake. Review of Systems: Denies fever, chills. Denies muscle aches or joint swelling. Objective: Lungs: Clear to auscultation bilaterally. Heart: S1, S2. Abdomen: Soft. Extremities: Minimal edema in both ankles. Laboratory Data: Blood work: Sodium 138, potassium 4.6, chloride 110, CO2 23, BUN 47, creatinine 2. 50, glucose 140, calcium 9.0, albumin 2.2. Impression And Plan: Acute kidney injury. Renal function is plateauing. Hyperkalemia, resolved. R habdomyolysis. CK level is improving. Monitor renal function. IV fluids on hold due to some volume overload. The patient has chronic kidney disease stage 3B/4 secondary to diabetes mellitus, diabeti c nephropathy, hypertension, and benign nephrosclerosis and acute kidney injury. Monitor electrolyte s closely and renal panel daily. Avoid nephrotoxic medication and avoid IV contrast procedures. EB/MODL Voice ID: [id number] Report ID: [id number]
--- NOTE | 2024-08-19 17:04 | P.PN ---
Subjective Date of Service: 08/19/24 Chief Complaint: Weakness, NSTEMI, CKD Patient denies any new complain. He is eating well. He has been able to ambulate with therapy today. Physical Examination - Vital Signs Temperature: 97.9 F Blood Pressure: 121/54 Pulse: 75 Respirations: 16 Pulse Ox (%): 94 Assessment And Plan - Plan Physical Exam General: AAO x3, NAD Neck: Supple, 2+ carotid pulse no bruit Respiratory: Clear to auscultation bilaterally, Normal air movement, on RA Cardiovascular: RRR, systolic murmur noted, S1 S2 present Gastrointestinal: Normal bowel sounds, Soft on palpation, NT/ND Integumentary: Flaky dry xerotic skin bilateral lower extremities, venous stasis ulcer Neurological: No focal motor deficit. Vitals Reviewed Diagnosis NSTEMI Fluid volume overload 2/2 congestive heart failure Severe pulmonary hypertension Aortic stenosis CAD with stent History of Atrial fibrillation CKD DM-IDDM Bilateral lower extremity venous stasis ulcer HTN/HLD Hyperkalemia Hypermagnasemia Assessment and Plan NSTEMI Chronic diastolic heart failure Aortic stenosis CAD with stent History of Atrial fibrillation Severe pulmonary hypertension -Trop 71.7, 76.6, 115.1 -Elevated troponin likely secondary to demand ischemia. -Cardiology is following. -Patient appears compensated for CHF. -Dr. Alvarez recommended right heart catheterization to further evaluate the severe pulmonary hypertension noted on the echocardiogram. -Dr. Duque is planning right heart catheterization tomorrow. -Home Bumex is on hold. Dehydration Acute on chronic kidney disease stage IV Impaired mobility -Dr. Mitchell is following -Serum creatinine is improved with IV hydration -IV fluid discontinued. -Renal function improved -Functional status is improving. Patient now able to ambulate with a walker. -Continue PT -Patient desires to go home and does not want to go to any facility for rehab. -Disposition to home health with with PT. DM-IDDM -acuccheck with SSI Bilateral lower extremity venous stasis ulcer -wound care team input appreciated. -Wound care with Medihoney, Lidex and Edward wrap. HTN/HLD -continue home medications -hydralazine PRN Hyperkalemia Hypermagnasemia -Lokelma x 1 (08/13) -Patient is on Lokelma daily for hyperkalemia. -Renal diet. DVT ppx heparin Full code
--- NOTE | 2024-08-19 17:43 | EKG ---
Test Date: 2024-08-13 Test Time: 12:40:55 [employer] Plant Superintendent: NAY MEASUREMENT RESULTS: Intervals: Rate: 67 IA: 178 QRSD: 88 QT: 442 QTc: 467 Elton: P: 82 IA: 178 QRS: -78 T: 20 INTERPRETIVE STATEMENTS: Normal sinus rhythm Left axis deviation Nonspecific ST and T wave abnormality Prolonged QT Abnormal ECG Compared to ECG 06/14/2024 06:46:56 Possible ischemia no longer present ST (T wave) deviation still present Electronically Signed On 08-19-24 17:26:36 ASSISTANT COMMUNITY DIRECTOR by Chad Alvarez
[2024-08-20 05:34] LABS: Absolute Basophils 0.1 K/uL (0-0.5); Absolute Eosinophils 0.3 K/uL (0-0.5); Absolute Monocytes 0.8 K/uL (0.1-1.3); Absolute Neutrophil 5.4 K/uL (1.8-8.0); Basophils % 0.9 % (0-1.3); Eosinophils % 4.1 % (0-4.4); Hematocrit 51.2 % (39.6-49.0); Hemoglobin 16.2 g/dL (13.6-17.9); Lymphocytes % 12.9 % (15.3-44.8); MCH 27.5 pg (27.0-35.0); MCHC 31.6 g/dL (32.0-36.0); MCV 86.8 fL (80-100); MPV 8.2 fL (7.6-11.3); Neutrophils % 71.1 % (41.7-73.7); Nucleated Red Blood Cells % 0.2 % (0-0); Platelets 272 thou/uL (152-406); Red Cell Distribution Width 19.5 % (12.1-15.2)
[2024-08-20 05:56] LABS: Albumin 2.3 g/dL (3.4-5.0); Anion Gap 9.6 mEq/L (5.0-15.0); Magnesium 2.1 mg/dL (1.6-2.4); Phosphorus 3.3 mg/dL (2.5-4.9); Potassium 4.6 mEq/L (3.5-5.1)
--- NOTE | 2024-08-20 06:58 | P.PN ---
Date of Service: 08/20/24 Subjective: feels strength, breathing have been improving daily unable to perform RHC today due patient uncooperative cannot recall why RHC wasn't done after being brought back into room Didn't want his legs to be unwrapped today afebrile ROS: 10 point ROS as noted above, otherwise negative Physical Exam: GEN: Alert, NAD, oriented x3 HEENT: Normal conjunctiva, sclera anicteric, CV: Regular rate and rhythm, trace bilateral lower extremity edema, systolic murmur Pulm: Nonlabored respirations on room air, clear bilaterally Integumentary: Flaky dry skin bilateral lower extremities, wrapped bilaterally with kerlix Neuro: Normal speech, normal affect Problem List: NSTEMI Chronic diastolic CHF CAD s/p PCI Hx A-fib on chronic anticoagulation Severe pulmonary hypertension KAITLIN on CKD4 Impaired mobility IDDM2 Bilateral lower extremity venous stasis ulcer Hypertension Hyperlipidemia NSTEMI Chronic diastolic CHF CAD s/p PCI Hx A-fib on chronic anticoagulation Severe pulmonary hypertension troponins were mildly elevated. Peak 115. Likely secondary to demand ischemia. Cardiology is following continue home metoprolol, eliquis Echo (08/16): 55-60% EF, moderate-severe LVH, mild MR/TR, severe pulmonary hypertension, heavily calcified aortic valve with moderate aortic stenosis Cardiology recommending RHC to further eval pulm HTN etiology Attempted RHC today. Unable to perform RHC today due patient uncooperative nursing staff will attempt to get a hold of and see if pt will be agreeable bumex on hold KAITLIN on CKD4 Impaired mobility Nephrology consulted KAITLIN likely related to dehydration from diuretics improved with IVF and holding bumex renal u/s unremarkable continue to monitor renal function Monitor and replete electrolytes as needed Impaired mobility Strength improving. Patient now able to ambulate with a walker. Continue PT Patient requesting to go home. Doesn't want to go to any facility anticipate DC home with HH IDDM2 accucheks, SSI Bilateral lower extremity venous stasis ulcer [facility] consulted. Continue local wound care with Medihoney, Lidex and Edward wrap. Hypertension Hyperlipidemia continue home amlodipine, metoprolol VTE: home eliquis Code: Full Dispo: Home with HH,, ~1-2 days Pending RHC, cardiology recs Time Spent Managing Pts Care (In Minutes): 41
--- NOTE | 2024-08-20 12:36 | P.CNS ---
Date of Consult: 08/20/24 Reason for Consult: Pulmonary hypertension Chief Complaint: Weakness, NSTEMI, CKD History of Present Illness: Patient is 74 years of age metabolic syndrome coronary artery disease. With weakness he is found to have a non-STEMI current echo showed severe pulmonary hypertension is scheduled to have a cardiac cath he has not smoked for a while has had stents in his heart is any shortness of breath Allergies Penicillins Adverse Reaction (Verified 01/24/23 22:00) Hives Home Medications: Apixaban [Eliquis *] 5 mg PO BID 01/30/24 Ascorbic Acid [Vitamin C] 500 mg PO DAILY 01/30/24 Aspirin [Aspirin EC] 81 mg PO DAILY 01/30/24 Atorvastatin Calcium [Lipitor*] 80 mg PO BEDTIME 01/30/24 Cyanocobalamin (Vitamin B-12) [Vitamin B-12] 1,000 mcg PO DAILY 01/30/24 Empagliflozin [Jardiance] 25 mg PO DAILY 01/30/24 Ferrous Sulfate 324 mg PO DAILY 01/30/24 Sennosides [Senna] 8.6 mg PO DAILY 01/30/24 Ergocalciferol (Vitamin D2) [Vitamin D2] 50,000 unit PO EVERY 7TH DAY 05/09/24 Insulin Glargine-Yfgn 25 unit SQ DAILY 05/09/24 Melatonin 5 mg PO BEDTIME 05/09/24 Metoprolol Succinate [Toprol Xl*] 50 mg PO BEDTIME 05/09/24 Amlodipine [Norvasc*] 10 mg PO DAILY #30 tab 05/10/24 Gabapentin [Neurontin*] 100 mg PO TID #90 cap 05/10/24 Hydralazine [Apresoline*] 50 mg PO TID tab 05/10/24 Vits A and D/White Pet/Lanolin [A and D Ointment] 1 laquita TP BID #1 tube 05/10/24 Bumetanide [Bumex*] 1 mg PO BID 30 Days #60 tab 06/15/24 - Past Medical/Surgical History Diabetic: Yes -: hypertension -: hyperlipidemia -: Atrial fibrillation -: IDDM -: Coronary artery disease -: Aortic stenosis -: CHF -: Cardiac Catheterization with stent placement -: Right leg surgery Psychosocial/ Personal History: Patient is . - Family History Brother Medical History: Heart disease, Hypertension - Social History Smoking Status: Former smoker Alcohol use: Yes CD- Drugs: No Caffeine use: Yes Place of Residence: Home Review of Systems 10-point ROS is otherwise unremarkable General: Weakness Physical Examination Temp Pulse Resp BP Pulse Ox 97.9 F 110 H 18 168/76 H 92 08/20/24 08:00 08/20/24 08:00 08/20/24 08:00 08/20/24 08:00 08/20/24 08:00 General: Alert, Oriented x3 HEENT: Atraumatic Neck: Supple Respiratory: Clear to auscultation bilaterally Cardiovascular: No edema, Regular rate/rhythm Gastrointestinal: Normal bowel sounds, Soft and benign - Problems (1) Pulmonary hypertension Current Visit: Yes Status: Acute Plan: Patient is 74 years of age denies any shortness of breath was found to have severe pulmonary hypertension I suspect is from diastolic dysfunction due to left ventricular hypertrophy in addition to chronic renal failure patient's oxygenation is satisfactory blood pressure is mildly elevated currently scheduled for a right heart cath patient does not smoke evaluate for home O2 discharge plan patient has prominent pulmonary arteries mild cardiomegaly evidence of some volume overload new with aggressive blood pressure management possible treatment for pulmonary hypertension if his pulmonary hypertension persists patient has some lower extremity ulcers
--- NOTE | 2024-08-21 02:34 | PN ---
Date of Progress Note: 08/20/2024 Chief Complaint: Acute kidney injury, nonoliguric. Subjective: Renal function has been improving gradually. The patient developed acute kidney injury due to ATN and rhabdomyolysis and he received IV fluids to treat rhabdomyolysis and prevent acute tub ular necrosis. Review of Systems: Denies chest pain, palpitation. Physical Examination: Lungs: Clear to auscultation bilaterally. Heart: S1, S2. Abdomen: Soft. Extremities: Slight edema in both ankles. Impression And Plan: 1.Acute kidney injury, renal function is plateauing. 2.Hyperkalemia, resolved. Rhabdomyolysis was treated with IV fluids. CK level is gradually improvi ng. Monitor electrolytes and renal panel. IV fluids on hold due to some volume overload. Continue p.o. fluid restriction, low-sodium diet. 3.Chronic kidney disease stage IIIB/IV secondary to diabetes mellitus, hypertension, benign nephrosc lerosis, diabetic nephropathy with recent acute kidney injury. Avoid nephrotoxic medication. Monito r electrolytes and renal panel. EB/MODL Voice ID: [id number] Report ID: [id number]
[2024-08-21 05:20] LABS: Hematocrit 49.9 % (39.6-49.0); Hemoglobin 15.4 g/dL (13.6-17.9); MCH 26.9 pg (27.0-35.0); MCHC 30.9 g/dL (32.0-36.0); MCV 87.1 fL (80-100); MPV 8.2 fL (7.6-11.3); Platelets 280 thou/uL (152-406); RBC Red Blood Cell Count 5.73 M/uL (4.33-5.43); Red Cell Distribution Width 19.4 % (12.1-15.2)
[2024-08-21 05:35] LABS: Albumin 2.1 g/dL (3.4-5.0); Albumin/Globulin Ratio 0.4 (1.1-1.8); Anion Gap 10.6 mEq/L (5.0-15.0); Bilirubin Total 0.3 mg/dL (0.2-1.0); Globulin 5.4 g/dL (2.3-3.5); Potassium 4.6 mEq/L (3.5-5.1); Protein, Total 7.5 g/dL (6.4-8.2)
[2024-08-21] MEDS: FUROSEMIDE 40 MG TABLET PO SCH ×2 (09:00→12:09)
--- NOTE | 2024-08-21 12:02 | P.PN ---
Date of Service: 08/21/24 Subjective: seems slightly confused / paranoid upset when asked him orienting questions stated he thinks I want him , which I asked why he felt that way and attempted to explain we all want the opposite - and for him to improve did not allow me to unwrap both legs to see under dressing ROS: 10 point ROS as noted above, otherwise negative Physical Exam: GEN: Alert, NAD, oriented x2-3; paranoid HEENT: Normal conjunctiva, sclera anicteric, CV: Regular rate and rhythm, trace bilateral lower extremity edema, systolic murmur Pulm: Nonlabored respirations on room air, clear bilaterally Integumentary: Flaky dry skin bilateral lower extremities, wrapped bilaterally with kerlix Neuro: Normal speech, normal affect Problem List: NSTEMI Chronic diastolic CHF CAD s/p PCI Hx A-fib on chronic anticoagulation Severe pulmonary hypertension KAITLIN on CKD4 Impaired mobility IDDM2 Bilateral lower extremity venous stasis ulcer Hypertension Hyperlipidemia NSTEMI Chronic diastolic CHF CAD s/p PCI Hx A-fib on chronic anticoagulation Severe pulmonary hypertension troponins were mildly elevated. Peak 115. Likely secondary to demand ischemia. Cardiology is following continue home metoprolol, eliquis, amlodipine Echo (08/16): 55-60% EF, moderate-severe LVH, mild MR/TR, severe pulmonary hypertension, heavily calcified aortic valve with moderate aortic stenosis Cardiology recommending RHC to further eval pulm HTN etiology Attempted RHC yesterday. Unable to perform RHC today due patient uncooperative/confusion. bumex on hold KAITLIN on CKD4 Impaired mobility Nephrology consulted KAITLIN likely related to dehydration from diuretics improved with IVF and holding bumex renal u/s unremarkable continue to monitor renal function Monitor and replete electrolytes as needed Impaired mobility Strength improving. Patient now able to ambulate with a walker. Continue PT Patient requesting to go home. Doesn't want to go to any facility anticipate DC home with HH IDDM2 accucheks, SSI Bilateral lower extremity venous stasis ulcer [facility] consulted. Continue local wound care with Medihoney, Lidex and Edward wrap. Hypertension Hyperlipidemia continue home amlodipine, metoprolol VTE: home eliquis Code: Full Dispo: Home with HH,, ~1-2 days Pending improvement Time Spent Managing Pts Care (In Minutes): 41
--- NOTE | 2024-08-21 12:45 | RAD REPORT ---
Procedure: Chest Single View HISTORY: Pulmonary hypertension COMPARISON: October 2023 FINDINGS: The lungs appear clear of acute infiltrate. No significant pleural effusion noted. The heart is moderately enlarged. Prominence of the central pulmonary arteries IMPRESSION: Prominence of the central pulmonary arteries can be seen with pulmonary arterial hypertension. No acute abnormalities displayed
[2024-08-21] MEDS: HYDRALAZINE HCL 25 MG TABLET PO SCH (14:55)
--- NOTE | 2024-08-21 16:07 | PN ---
Date of Progress Note: 08/21/2024 Subjective: The patient was admitted to the hospital with acute kidney injury secondary to over-diur esis. The patient found to have pulmonary hypertension. Physical Examination: Vital Signs: Blood pressure 182/86, pulse of 67, afebrile. Chest: Clear to auscultation. Heart: S1 and S2, regular, systolic murmur. Abdomen: Soft, nontender. Extremities: Chronic skin change, trace edema. Neurologic: Alert, no focality. Laboratory Data: Hemoglobin 15.4. Sodium 139, potassium 4.6, bicarb 24, BUN 35, creatinine 2.4. Ca lcium 9.1, albumin 2.1. Current Medications: The patient on include: 1.Amlodipine 10 mg. 2.Metoprolol 50. 3.Lokelma. 4.Melatonin. Assessment And Plan: 1.Acute kidney injury secondary to prerenal, over-diuresis, recovered, back to baseline. I will acc ept this as new baseline given the pulmonary hypertension. I am going to go ahead and resume at Lasi x 40 mg daily and we will follow up the patient. 2.Hyperkalemia. Continue Lokelma. 3.Pulmonary hypertension. We will add amlodipine. With the presence of hyperkalemia, I am going to be reluctant on adding spironolactone. We will monitor. 4.Hypertension with the presence of pulmonary hypertension. We will add amlodipine. I am going to go ahead and add hydralazine and we will follow up response for the patient. 5.Deconditioning, continue PT/OT. 6.Pulmonary hypertension. The patient refused cardiac cath. We will follow up with Cardiology. We will optimize treatment as above. ROBERT/LORNE Voice ID: [id number] Report ID: [id number]
--- NOTE | 2024-08-21 16:55 | P.PN ---
Subjective Date of Service: 08/21/24 Chief Complaint: Weakness, NSTEMI, CKD Subjective: No new changes, No C/O voiced, Tolerating diet, Ambulating, Improving Review of Systems 10-point ROS is otherwise unremarkable Physical Examination - Vital Signs Temperature: 97.0 F Blood Pressure: 182/86 Pulse: 67 Respirations: 15 Pulse Ox (%): 92 - Physical Exam General: Alert, In no apparent distress HEENT: Atraumatic, PERRLA, EOMI Neck: Supple, JVD not distended Respiratory: Clear to auscultation bilaterally, Normal air movement Cardiovascular: Regular rate/rhythm, Normal S1 S2 Gastrointestinal: Normal bowel sounds, No tenderness Musculoskeletal: No tenderness Integumentary: No rashes Neurological: Normal speech, Normal tone, Normal affect Lymphatics: No axilla or inguinal lymphadenopathy - Studies Medications List Reviewed: Yes Assessment And Plan - Current Problems (Diagnosis) (1) CHF (congestive heart failure) Current Visit: No Status: Acute Plan: advise to continue Lasix 40 mg daily spirnolactone 25 mg daily if K level is better in am Qualifiers: (2) Afib Current Visit: No Status: Chronic Plan: continue Toprol XL and Eliquis. Qualifiers: (3) Coronary artery disease Current Visit: No Status: Chronic Plan: mid leak in troponin with no significant delta, ASA 81 mg daily Lipitor 40 mg daily Qualifiers: (4) Pulmonary hypertension Current Visit: Yes Status: Acute Plan: plan was to proceed with right heart cath but patient is refusing IV line placement and explained in details to that i can not do procedure without IV line and if he is refusing to follow commands as risk will outweigh the benefit.
[2024-08-21] MEDS: MELATONIN 5 MG TABLET PO SCH (21:33)
[2024-08-22 06:02] LABS: Albumin 2.4 g/dL (3.4-5.0); Albumin/Globulin Ratio 0.4 (1.1-1.8); Anion Gap 7.7 mEq/L (5.0-15.0); Bilirubin Total 0.4 mg/dL (0.2-1.0); Globulin 5.8 g/dL (2.3-3.5); Potassium 4.7 mEq/L (3.5-5.1); Protein, Total 8.2 g/dL (6.4-8.2)
--- NOTE | 2024-08-22 11:15 | P.PN ---
Date of Service: 08/22/24 Subjective: no significant change agreeable to cath today awaiting IV access ROS: 10 point ROS as noted above, otherwise negative Physical Exam: GEN: Alert, NAD, oriented x2-3 HEENT: Normal conjunctiva, sclera anicteric, CV: Regular rate and rhythm, trace bilateral lower extremity edema, systolic murmur Pulm: Nonlabored respirations on room air, clear bilaterally Integumentary: Flaky dry skin bilateral lower extremities, wrapped bilaterally with kerlix Neuro: Normal speech, normal affect Problem List: NSTEMI Chronic diastolic CHF CAD s/p PCI Hx A-fib on chronic anticoagulation Severe pulmonary hypertension KAITLIN on CKD4 Impaired mobility IDDM2 Bilateral lower extremity venous stasis ulcer Hypertension Hyperlipidemia NSTEMI Chronic diastolic CHF CAD s/p PCI Hx A-fib on chronic anticoagulation Severe pulmonary hypertension troponins were mildly elevated. Peak 115. Likely secondary to demand ischemia. Cardiology is following continue home metoprolol, eliquis, amlodipine Echo (08/16): 55-60% EF, moderate-severe LVH, mild MR/TR, severe pulmonary hypertension, heavily calcified aortic valve with moderate aortic stenosis Cardiology recommending RHC to further eval pulm HTN etiology Have been unable to perform RHC due patient uncooperative/confusion. needs IV access but has been refusing line placements -- agreeable today bumex on hold continue oral lasix 40 mg daily; added 08/21 KAITLIN on CKD4 Impaired mobility Nephrology consulted KAITLIN likely related to dehydration from diuretics improved with IVF and holding bumex renal u/s unremarkable continue to monitor renal function Monitor and replete electrolytes as needed Impaired mobility Strength improving. Patient now able to ambulate with a walker. Continue PT Patient requesting to go home. Doesn't want to go to any facility anticipate DC home with HH IDDM2 accucheks, SSI Bilateral lower extremity venous stasis ulcer [facility] consulted. Continue local wound care with Medihoney, Lidex and Edward wrap. Hypertension Hyperlipidemia continue home amlodipine, metoprolol VTE: home eliquis Code: Full Dispo: Home with HH, ~1-2 days Pending improvement, RHC possibly later today Time Spent Managing Pts Care (In Minutes): 41
[2024-08-22] MEDS: NA CHLORIDE 0.9% 500 ML ONE (16:22)
[2024-08-22] MEDS ORDERED: HEPA 1000U/500MLS 2,000 UNIT/1,000 ML BAG IV ONE (16:32)
[2024-08-22] MEDS ORDERED: LIDOCAINE 1% 20 ML MDV ONE (16:32)
[2024-08-22] MEDS ORDERED: MIDAZOLAM HCL 2 MG/2 ML INJ ONE (16:32)
[2024-08-22] MEDS ORDERED: FENTANYL CITR 100 MCG/2 ML ONE (16:33)
--- NOTE | 2024-08-22 21:25 | PN ---
Date of Progress Note: 08/22/2024 Subjective: The patient was admitted to the hospital with acute kidney injury secondary to prerenal and overdiuresis, superimposed with ARB. The patient recovered, normal volume currently. The patien t had wound infection. Physical Examination: Vital Signs: Blood pressure 116/65, pulse of 72, afebrile. Chest: Clear to auscultation. Heart: S1, S2. Systolic murmur. Abdomen: Soft, nontender. Extremities: Dressing on the foot on the left side. Neurologic: Alert. No focality. Laboratory Data: Hemoglobin 15.4. Sodium 138, potassium 4.7, bicarb 26, BUN 41, creatinine 2.5, GFR 26, calcium 9.4. Current Medications: The patient is on include amlodipine 10 mg, hydralazine 25 t.i.d., metoprolol 5 0, Lasix 40 mg daily, Lokelma. Assessment And Plan: 1.Acute kidney injury secondary to prerenal, recovered, resolved. We resumed the Lasix yesterday. Tolerating very well. Blood pressure has been stable. We will follow up. 2.Hypertension, controlled, optimal. Continue current treatment. 3.Hyponatremia, resolved. 4.Hyperkalemia, resolved. I am going to go ahead and discontinue Lokelma. We will follow up the jeannette cheema. 5.Foot infection as by Primary. 6.Congestive heart failure. We will resume Lasix. We will follow up with Cardiology. 7.Pulmonary hypertension/diastolic dysfunction. Follow up with Cardiology. We will resume the Lasix. We will continue calcium channel abbey. ROBERT/LORNE Voice ID: [id number] Report ID: [id number]
--- NOTE | 2024-08-23 02:39 | OP ---
Date of Procedure: 08/22/2024 Surgeon: ASHLEY MONTESINOS Procedure Performed: Right heart catheterization. Indication: Pulmonary hypertension. Access: Right IJ 7-Malawian, closed with manual pressure. Complications: None. Bleeding: Less than 50 mL. Total sedation time is 30 minutes. I used fentanyl. Description Of Procedure: After risks, benefits, and alternatives were explained, the patient agreed to procedure and signed informed consent. The patient was brought into cardiac catheterization labo [facility], prepped and draped in usual sterile fashion. Then, I accessed right IJ using micropuncture k it, ultrasound guidance, and placed a 7-[place]awian PINNACLE sheath and took a balloon tipped 7-Malawian Swa n catheter through the IJ access into the right atrium, right ventricle, pulmonary artery and wedge a nd obtained a waveform and pressure and then obtained cardiac output and removed the [place] and the she ath. Manual pressure was used for closure, good hemostasis. Findings: 1.RA pressure mean of 8. RV pressure is 90/1, mean of 18, PA pressure is 115/36, mean of 59. Pulmo nary wedge pressure was ranging between 8 and 15 mmHg. Cardiac output by thermodilution method was 4 .5 L/minute with the pulmonary vascular resistance of 10 Wood units. Conclusions: Severe pulmonary arterial hypertension with mean PA pressure of 59 and his wedge is in fact normal around 10 mmHg. His pulmonary vascular resistance is 10 Wood units and the cardiac outpu t is 4.5 L/minute. This is severe pulmonary artery hypertension. Recommendation: Consult Dr. Urbina for management of pulmonary hypertension and hold diuretics. SR/MODL Voice ID: [id number] Report ID: [id number]
--- NOTE | 2024-08-23 12:18 | P.PN ---
Date of Service: 08/23/24 Subjective: feeling better s/p RHC yesterday BP improving feels legs less swollen, and improving ROS: 10 point ROS as noted above, otherwise negative Physical Exam: GEN: Alert, NAD, oriented x2-3; paranoid HEENT: Normal conjunctiva, sclera anicteric, CV: Regular rate and rhythm, trace bilateral lower extremity edema, systolic murmur Pulm: Nonlabored respirations on RA, clear bilaterally Integumentary: Flaky dry skin bilateral lower extremities, wrapped bilaterally with kerlix Neuro: Normal speech, normal affect Problem List: NSTEMI Chronic diastolic CHF CAD s/p PCI Hx A-fib on chronic anticoagulation Severe pulmonary hypertension KAITLIN on CKD4 Impaired mobility IDDM2 Bilateral lower extremity venous stasis ulcer Hypertension Hyperlipidemia NSTEMI Chronic diastolic CHF CAD s/p PCI Hx A-fib on chronic anticoagulation Severe pulmonary hypertension troponins were mildly elevated. Peak 115. Likely secondary to demand ischemia. Cardiology is following continue home metoprolol, eliquis, amlodipine Echo (08/16): 55-60% EF, moderate-severe LVH, mild MR/TR, severe pulmonary hypertension, heavily calcified aortic valve with moderate aortic stenosis Cardiology recommending RHC to further eval pulm HTN etiology underwent RHC 08/22 which noted severe pulmonary arterial hypertension. Dr. Urbina recommending sildenafil 20 mg BID; added 08/23 bumex on hold continue oral lasix 40 mg daily; added 08/21 KAITLIN on CKD4 Impaired mobility Nephrology consulted KAITLIN likely related to dehydration from diuretics improved with IVF and holding bumex renal u/s unremarkable continue to monitor renal function Monitor and replete electrolytes as needed Impaired mobility Strength improving. Patient now able to ambulate with a walker. Continue PT Patient requesting to go home. Doesn't want to go to any facility anticipate DC home with HH IDDM2 accucheks, SSI Bilateral lower extremity venous stasis ulcer [facility] consulted. Continue local wound care with Medihoney, Lidex and Edward wrap. Hypertension Hyperlipidemia continue home amlodipine, metoprolol VTE: home eliquis Code: Full Dispo: Home with HH, anticipate discharge tomorrow Family updated over the phone 08/23. Time Spent Managing Pts Care (In Minutes): 41
[2024-08-23] MEDS: SILDENAFIL CITRATE 20 MG TABLET PO SCH (12:30)
--- NOTE | 2024-08-24 01:46 | PN ---
Date of Progress Note: 08/23/2024 Chief Complaint: Acute kidney injury secondary to prerenal azotemia in setting of diuretic treatment and angiotensin receptor abbey treatment. The patient currently is treated for wound infection. Renal function has improved to baseline. Review of Systems: Denies chest pain, palpitation. Physical Examination: Lungs: Clear to auscultation bilaterally. Heart: S1, S2. Abdomen: Soft. Benign. Extremities: No edema. Dressing in place. Impression And Plan: 1.Acute kidney injury secondary to prerenal azotemia. Renal function improved. Acute kidney injury , resolved. Plan is to resume Lasix. 2.Blood pressure in stable range control. Monitor blood pressure. 3.Hypertension, controlled, optimal. Continue current treatment. 4.Hyponatremia, resolved. 5.Hyperkalemia, resolved. The patient was treated with Lokelma. Lokelma was stopped. Monitor elec nellates. EB/MODL Voice ID: [id number] Report ID: [id number]
[2024-08-24 08:45] VITALS: BP 141/78
[2024-08-24 08:46] VITALS: TEMP 97.5
--- NOTE | 2024-08-24 08:59 | P.DS ---
Admission Date: 08/13/24 Discharge Date: 08/24/24 Disposition: DC HOME/HOME HEALTH CARE Discharge Condition: GOOD Reason for Admission: Weakness, NSTEMI, CKD Consultations: Cardiology - Dr. Duque, Dr. Alvarez Nephrology - Dr. Mitchell, Dr. Bruce-Julissa, Dr. Mixon Pulmonology - Dr. Urbina Brief History of Present Illness: 74yo M, PMH: caridac stent, Atrial Fib, CHF, Diabetes - NIDDM, Hyperchole sterolemia, Hypertension, Chronic obstructive lung disease, and bilateral lower extremity ulcers Patient presents to the ED with weakness that started this week. He [place] seeing [place] [facility] for [place] to his [place]. His reports he has grown weak and was not able to stand today. While in the ED, his tropnin is elevate at 71, BUN/creatinine 64/3.96, GFR 15, Serum glucose 140, Mag 2.8, Potassium 5.9, BNP 4472, UA negative for infectious process. Chest xray reports "Similar prominence of the pulmonary interstitium could reflect an infectious or inflammatory process. Edema less likely." Hospital Course: Problem List: NSTEMI Chronic diastolic CHF CAD s/p PCI Hx A-fib on chronic anticoagulation Severe pulmonary hypertension KAITLIN on CKD4 Impaired mobility IDDM2 Bilateral lower extremity venous stasis ulcer Hypertension Hyperlipidemia Physician discharge instructions: Patient presented to the ED with weakness of 1 week duration. He reports seeing the [facility] for his wound care to his BLE. His reports he became weak to the point he was unable to stand. Patient noted to have elevated troponin in the ED. chest x-ray demonstrated prominence of the pulmonary interstitium which could reflect an infectious or inflammatory process. Patient noted to have flaky dry hyperpigmented skin, areas of excoriation ulcerations on bilateral lower extremities. Patient was admitted to the medical floor, troponin was midly elevated but trended flat. (Peak 115). Suspect elevated troponins to be a mild troponin leak secondary to volume overload / severe pulmonary hypertension. Echocardiogram (08/15/24): EF: 55-60%, moderate-severe concentric LVH, mild mitral and tricuspid regurgitation, heavily calcified arotic valve with likely moderate aortic stenosis, severe pulmonary hypertension. Cardiology recommended right heart catheterization to further define the pulmonary hypertension. Procedure delayed due to patient uncooperative/confusion and needing IV access. Patient underwent right heart cath 08/22 which noted severe pulmonary arterial hypetension. (full report below). Dr. Urbina, pulm, recommended starting sildanafil 20 mg twice daily to treat pulmonary hypertension. Follow up with Dr. Urbina / [facility] in near future for further management. Patient is on Bumex for chronic diastolic heart failure which was held due to dehydration and acute kidney injury. He was evaluated by nephrology-Dr. Mitchell and dehydration and acute kidney injury treated with IV hydration initially. Nephrology recommended switching bumex to lasix 40 mg daily on discharge. Advised to stop taking bumex. Reassess medication regimen on follow up. Patient kidney function improved with IV hydration, he became more stronger and was able to ambulate with a walker during PT. Renal function continued to improve when restarted diuretics as well. Lower extremity edema improved. Patient has wounds involving both lower extremities as well as thickened, flaky skin which was dressed with Medihoney, Lidex and Edward wrap. [facility] Patient need to follow-up with nephrology with repeat blood work (blood chemistry) within 1 to 2 weeks. Right heart cath findings: RA pressure mean of 8. RV pressure is 90/1, mean of 18, PA pressure is 115/36, mean of 59. Pulmonary wedge pressure was ranging between 8 and 15 mmHg. Cardiac output by thermodilution method was 4.5 L/minute with the pulmonary vascular resistance of 10 Wood units. Medications: sildanafil 20 mg twice daily Hydralazine decreased to 25 mg three times a day (was 50mg three times a day) Stop taking bumex -- switched to lasix 40mg once a day. Follow up: PCP 3-5 days Pulmonology 2-4 weeks Cardiology 2-4 weeks Please call to schedule / confirm appointments Physical Exam: GEN: Alert, NAD, oriented HEENT: Normal conjunctiva, sclera anicteric, CV: Regular rate and rhythm, no edema, systolic murmur Pulm: Nonlabored respirations on RA, clear bilaterally Integumentary: Flaky dry skin bilateral lower extremities, wrapped bilaterally with kerlix Neuro: Normal speech, normal affect Vital Signs/Physical Exam: Temp Pulse Resp BP Pulse Ox 97.5 F 68 16 141/78 H 98 08/24/24 08:00 08/24/24 08:45 08/24/24 08:00 08/24/24 08:45 08/24/24 08:00 Laboratory Data at Discharge: WBC 5.90 thou/uL (4.3-10.9) 08/21/24 04:51 Hgb 15.4 g/dL (13.6-17.9) 08/21/24 04:51 Hct 49.9 % (39.6-49.0) H 08/21/24 04:51 Plt Count 280 thou/uL (152-406) 08/21/24 04:51 Sodium 138 mEq/L (136-145) 08/23/24 09:37 Potassium 4.0 mEq/L (3.5-5.1) 08/23/24 09:37 BUN 40 mg/dL (7-18) H 08/23/24 09:37 Creatinine 2.35 mg/dL (0.70-1.30) H 08/23/24 09:37 Glucose 171 mg/dL (74-106) H 08/23/24 09:37 Uric Acid 9.0 mg/dL (3.5-7.2) H 08/15/24 06:00 Phosphorus 3.3 mg/dL (2.5-4.9) 08/20/24 05:04 Magnesium 2.0 mg/dL (1.6-2.4) 08/23/24 09:37 Total Bilirubin 0.4 mg/dL (0.2-1.0) 08/22/24 05:26 AST 13 U/L (15-37) L 08/22/24 05:26 ALT 18 U/L (16-61) 08/22/24 05:26 Alkaline Phosphatase 56 U/L (45-117) 08/22/24 05:26 Home Medications: Apixaban [Eliquis *] 5 mg PO BID 01/30/24 Ascorbic Acid [Vitamin C] 500 mg PO DAILY 01/30/24 Aspirin [Aspirin EC] 81 mg PO DAILY 01/30/24 Atorvastatin Calcium [Lipitor*] 80 mg PO BEDTIME 01/30/24 Cyanocobalamin (Vitamin B-12) [Vitamin B-12] 1,000 mcg PO DAILY 01/30/24 Empagliflozin [Jardiance] 25 mg PO DAILY 01/30/24 Ferrous Sulfate 324 mg PO DAILY 01/30/24 Sennosides [Senna] 8.6 mg PO DAILY 01/30/24 Ergocalciferol (Vitamin D2) [Vitamin D2] 50,000 unit PO EVERY 7TH DAY 05/09/24 Insulin Glargine-Yfgn 25 unit SQ DAILY 05/09/24 Melatonin 5 mg PO BEDTIME 05/09/24 Metoprolol Succinate [Toprol Xl*] 50 mg PO BEDTIME 05/09/24 Amlodipine [Norvasc*] 10 mg PO DAILY #30 tab 05/10/24 Gabapentin [Neurontin*] 100 mg PO TID #90 cap 05/10/24 Vits A and D/White Pet/Lanolin [A and D Ointment] 1 laquita TP BID #1 tube 05/10/24 Furosemide [Lasix*] 40 mg PO DAILY 30 Days #30 tab 08/24/24 Hydralazine [Apresoline*] 25 mg PO TID 30 Days #90 tab 08/24/24 Sildenafil Citrate [Revatio*] 20 mg PO BID 30 Days #60 tab 08/24/24 New Medications: Hydralazine [Apresoline*] 25 mg PO TID 30 Days #90 tab Furosemide [Lasix*] 40 mg PO DAILY 30 Days #30 tab Sildenafil Citrate [Revatio*] 20 mg PO BID 30 Days #60 tab Physician Discharge Instructions: Physician discharge instructions: Patient presented to the ED with weakness of 1 week duration. He reports seeing [facility] for his wound care to his B[facility]. His reports he became weak to the point he was unable to stand. Patient noted to have elevated troponin in the ED. chest x-ray demonstrated prominence of the pulmonary interstitium which could reflect an infectious or inflammatory process. Patient noted to have flaky dry hyperpigmented skin, areas of excoriation ulcerations on bilateral lower extremities. Patient was admitted to the medical floor, troponin was midly elevated but trended flat. (Peak 115). Suspect elevated troponins to be a mild troponin leak secondary to volume overload / severe pulmonary hypertension. Echocardiogram (08/15/24): EF: 55-60%, moderate-severe concentric LVH, mild mitral and tricuspid regurgitation, heavily calcified arotic valve with likely moderate aortic stenosis, severe pulmonary hypertension. Cardiology recommended right heart catheterization to further define the pulmonary hypertension. Procedure delayed due to patient uncooperative/confusion and needing IV access. Patient underwent right heart cath 08/22 which noted severe pulmonary arterial hypetension. (full report below). Dr. Urbina, pul, recommended starting sildanafil 20 mg twice daily to treat pulmonary hypertension. Follow up with Dr. Urbina / [facility] in near future for further management. Patient is on Bumex for chronic diastolic heart failure which was held due to dehydration and acute kidney injury. He was evaluated by nephrology-Dr. Mitchell and dehydration and acute kidney injury treated with IV hydration initially. Nephrology recommended switching bumex to lasix 40 mg daily on discharge. Advised to stop taking bumex. Reassess medication regimen on follow up. Patient kidney function improved with IV hydration, he became more stronger and was able to ambulate with a walker during PT. Renal function continued to improve when restarted diuretics as well. Lower extremity edema improved. Patient has wounds involving both lower extremities as well as thickened, flaky skin which was dressed with Medihoney, Lidex and Edward wrap. [facility] Patient need to follow-up with nephrology with repeat blood work (blood chemistr y) within 1 to 2 weeks. Right heart cath findings: RA pressure mean of 8. RV pressure is 90/1, mean of 18, PA pressure is 115/36, mean of 59. Pulmonary wedge pressure was ranging between 8 and 15 mmHg. Cardiac output by thermodilution method was 4.5 L/minute with the pulmonary vascular resistance of 10 Wood units. Medications: sildanafil 20 mg twice daily Hydralazine decreased to 25 mg three times a day (was 50mg three times a day) Stop taking bumex -- switched to lasix 40mg once a day. Follow up: PCP 3-5 days Pulmonology 2-4 weeks Cardiology 2-4 weeks Please call to schedule / confirm appointments Followup: Vanessa Mendoza NP [Primary Care Provider] - 1-2 Weeks Time spent managing pt's care (in minutes): 45
[2024-08-24 10:40] VITALS: O2SAT 98
--- NOTE | 2024-08-25 01:50 | PN ---
Date of Progress Note: 08/24/2024 Chief Complaint: Acute kidney injury secondary to prerenal azotemia in setting of diuretic treatment and angiotensin receptor abbey treatment. Subjective: The patient is treated for wound infection. Renal function has improved to baseline. Review of Systems: Denies chest pain, palpitation. Physical Examination: Lungs: Clear to auscultation bilaterally. Heart: S1, S2. Abdomen: Soft. Extremities: Wound dressing in place. Impression And Plan: 1.Acute kidney injury secondary to prerenal azotemia. Monitor electrolytes, renal panel, and avoid nephrotoxic medication. 2.Blood pressure is in stable range, controlled. Continue current treatment. 3.Hypertension, controlled, optimal blood pressure. 4.Hyponatremia, resolved. 5.Hyperkalemia. The patient was treated with Lokelma. Lokelma was stopped. Monitor electrolytes c losely. Avoid high potassium intake. EB/MODL Voice ID: [id number] Report ID: [id number]
== END 2024-08-24 11:12 | disposition home health service (06) | DRG 280 ==
LOC: ER 11:41 → ERHOLD 14:43 → 2ND 16:40 → 4TH 08-20 13:34 → 2ND 08-20 13:34
PROVIDERS: ADMIT Internal Medicine; ATTEND Hospitalist
PROC: 4A023N6 Measurement of Cardiac Sampling and Pressure, Right Heart, Percutaneous Approach (ICD-10-PCS; principal; 2024-08-22)
PROC: B2111ZZ Fluoroscopy of Multiple Coronary Arteries using Low Osmolar Contrast (ICD-10-PCS; 2024-08-22)
PROC: 02HV33Z Insertion of Infusion Device into Superior Vena Cava, Percutaneous Approach (ICD-10-PCS; 2024-08-22)
DX: I27.20 Pulmonary hypertension, unspecified (principal); N17.0 Acute kidney failure with tubular necrosis; I21.A1 Myocardial infarction type 2; I13.0 Hypertensive heart and chronic kidney disease with heart failure and stage 1 through stage 4 chronic kidney disease, or unspecified chronic kidney disease; I50.32 Chronic diastolic (congestive) heart failure; L03.119 Cellulitis of unspecified part of limb; N18.4 Chronic kidney disease, stage 4 (severe); M62.82 Rhabdomyolysis; I48.20 Chronic atrial fibrillation, unspecified; E87.1 Hypo-osmolality and hyponatremia; E11.621 Type 2 diabetes mellitus with foot ulcer; L97.519 Non-pressure chronic ulcer of other part of right foot with unspecified severity; L97.529 Non-pressure chronic ulcer of other part of left foot with unspecified severity; E11.22 Type 2 diabetes mellitus with diabetic chronic kidney disease; E11.40 Type 2 diabetes mellitus with diabetic neuropathy, unspecified; E78.00 Pure hypercholesterolemia, unspecified; J44.9 Chronic obstructive pulmonary disease, unspecified; I35.0 Nonrheumatic aortic (valve) stenosis; E87.5 Hyperkalemia; E86.0 Dehydration; I27.21 Secondary pulmonary arterial hypertension; E83.41 Hypermagnesemia; I83.018 Varicose veins of right lower extremity with ulcer other part of lower leg; I83.028 Varicose veins of left lower extremity with ulcer other part of lower leg; I25.10 Atherosclerotic heart disease of native coronary artery without angina pectoris; R79.89 Other specified abnormal findings of blood chemistry; Z88.0 Allergy status to penicillin; Z79.4 Long term (current) use of insulin; Z95.5 Presence of coronary angioplasty implant and graft; Z79.01 Long term (current) use of anticoagulants; Z87.891 Personal history of nicotine dependence; Z79.899 Other long term (current) drug therapy
CPT/HCPCS: 36415; 71045; 76770; 76937; 80048; 80053; 80069; 80076; 81001; 82550; 82570; 82947; 83735; 83880; 83970; 84100; 84156; 84443; 84484; 84550; 85025; 85027; 93005; 93306; 97110; 97116; 97161; 97530; 99152; 99153; 99285; C1893; J0360; J1644; J2003; J2250; J3010; J7030; J7040

== ENCOUNTER 2024-11-12 08:53 | Inpatient (IN) | payer OTHER ==
--- OUTSIDE RECORDS SUMMARY | 2024-11-12 08:57 | XMS REPORT | Continuity of Care Document ---
Author Name Unknown Address [address] [facility]. [address] [place] [address] [facility] thconnect Address [address] [facility] [address] [place] [address] Care Team Providers Care Second Crusher Name Role Phone Carlitos DURANT, Cj Hernandez Primary Care Physician Bassam Donis Attending Clinician Unavailable Michael Orozco Attending Clinician Loc Alcocer RN, Jose Lazo Attending Clinician Unavail able Romel Yu Attending Clinician [phone] Starla Tafoya MD Attending Clinician [phone] Kel Yin MD Attending Clinician [phone] KEL YIN Attending Clinician Unavailable Jose Reinoso Attending Clinician UnavailChad Penn Attending Clinician Unavailable Physician, No Primary or Family Admitting Clinic joe Unavailable Starla Tafoya MD Admitting Clinician [phone] STARLA TAFOYA Admitting Clinician Unavailable Payers Payer Name Policy Type Policy Number Effective Date Expirati on Date Source [place] [id number] [facility] Problems Condition Name Condition Details Condition Category Status Onset Date Resolution Date Last Treatment Date Treating Clinician Comments Source Nausea and vomiting in adult Nausea and vomiting in adult Disease Active 03-08 00:00: 00 [facility] MULLER (dyspnea on exertion) MULLER (dyspnea on exertion) Disease Active 03-08 00:00: 00 [facility] Coronary artery disease involving [place] coronary artery of [place] heart with angina pectoris Coronary artery disease involving [place] coronary artery of [place] heart with angina pectoris Disease Active 03-08 00:00: 00 [facility] Dyslipidem ia Dyslipidem ia Disease Active 03-08 00:00: 00 [facility] Uncontroll ed hypertensi on Uncontroll ed hypertensi on Disease Active 03-08 00:00: 00 [facility] Chronic heart failure with preserved ejection fraction Chronic heart failure with preserved ejection fraction Disease Active 03-08 00:00: 00 [facility] PAF (paroxysma l atrial fibrillati on) PAF (paroxysma l atrial fibrillati on) Disease Active 03-08 00:00: 00 [facility] Type 2 diabetes mellitus with other specified complicati on Type 2 diabetes mellitus with other specified complicati on Disease Active 03-08 00:00: 00 [facility] Elevated troponin I level Elevated troponin I level Disease Active 03-08 00:00: 00 [facility] Angina of effort Angina of effort Disease Active 02-17 00:00: 00 [facility] [id number] ED (erectile dysfunctio n) of organic origin Problem Active [facility] [id number] Prostate nodule Problem Active [facility] [id number] Urge incontinen ce Problem Active [facility] [id number] Lower urinary tract symptoms (LUTS) Problem Active [facility] Allergies, Adverse Reactions, Alerts Allergy Name Allergy Type Status Severity Reaction(s) Onset Date Inactive Date Treating Clinician Comments Source penicili n (Not Checked) Propensi ty to adverse reaction to drug Active 1-22 00:00: 00 Noe Tolentino Penicill ins DA Active SV HIVES 8-05 00:00: 00 EMILEE miller [facility] Penicill ins Propensi ty to adverse reaction s Active Rash - 00:00: 00 [facility] PENICILL INS Drug Class Active Rash 02-17 00:00: 00 [facility] Social History Social Habit Start Date Stop Date Quantity Comments Source History of tobacco use Passive smoker [facility] History SDOH Alcohol Std Drinks [facility] acute hospital History SDOH Alcohol Binge [facility] History SDOH Social Connections Get Together [facility] History SDOH Social Connections [facility] History SDOH Social Connections Membership [facility] History SDOH Social Connections Meetings [facility] Tobacco use and exposure 2023-03-08 00:00:00 2023-03-08 00:00:00 Smokeless tobacco non-user [facility] Alcohol intake 2023-03-08 00:00:00 2023-03-08 00:00:00 3 /d [facility] History SDOH Alcohol Frequency 2023-03-08 00:00:00 2023-03-08 00:00:00 1 [facility] History SDOH Social Connections Phone 2023-03-08 00:00:00 2023-03-08 00:00:00 5 [facility] History SDOH Social Connections Living 2023-03-08 00:00:00 2023-03-08 00:00:00 3 [facility] History SDOH Financial 2023-03-08 00:00:00 2023-03-08 00:00:00 5 [facility] History SDOH Food Worry 2023-03-08 00:00:00 2023-03-08 00:00:00 1 [facility] History SDOH Food Scarcity 2023-03-08 00:00:00 2023-03-08 00:00:00 1 [facility] History SDOH Transport Med 2023-03-08 00:00:00 2023-03-08 00:00:00 2 [facility] History SDOH Transport Non-Med 2023-03-08 00:00:00 2023-03-08 00:00:00 2 [facility] History SDOH Housing Unable to Pay 2023-03-08 00:00:00 2023-03-08 00:00:00 2 [facility] History SDOH Housing Places Lived 2023-03-08 00:00:00 2023-03-08 00:00:00 1 [facility] History SDOH Housing Homeless Last Year 2023-03-08 00:00:00 2023-03-08 00:00:00 2 [facility] Tobacco Comment 2023-03-08 00:00:00 2023-03-08 00:00:00 quit smoking 20 yrs ago [facility] Sex Assigned At 1950 00:00:00 1950 00:00:00 [facility] Smoking Status Start Date Stop Date Source Ex-smoker 2023-03-08 00:00:00 2023-03-08 [facility]00[facility] Ordered Medication Name Filled Medication Name Start Date Stop Date Current Medication? Ordering Clinician Indication Dosage Frequency Signature (SIG) Comments Components Source Jardiance 10 mg tablet 10-23 00:00: 00 Yes 1mg Noe Tolentino sildenafil (pulmonary hypertensio n) 20 mg tablet 10-23 00:00: 00 Yes 1mg Noe Tolentino gabapentin 300 mg capsule 10-23 00:00: 00 Yes 1mg Noe Tolentino atorvastati n 80 mg tablet 10-23 00:00: 00 Yes 1mg Noe Tolentino sennosides 8.6 mg tablet 10-23 00:00: 00 Yes 1mg Noe Tolentino metoprolol tartrate 50 mg tablet 10-23 00:00: 00 Yes 1mg Noe Tolentino Eliquis 5 mg tablet 10-23 00:00: 00 Yes 1mg Noe Tolentino amlodipine 5 mg tablet 10-04 00:00: 00 Yes mg Noe Tolentino furosemide 40 mg tablet 2023-10 00:00: 00 Yes mg Noe Tolentino hydralazine 25 mg tablet 2023-10 00:00: 00 Yes mg Noe Tolentino hydroxyzine HCl 25 mg tablet 02-07 00:00: 00 Yes mg Noe Tolentino insulin glargine 100 unit/mL injection 03-10 00:00: 00 Yes [id number] 15U inject 15 Units under the skin in the morning. [facility] amLODIPine 10 mg tablet 03-10 00:00: 00 04-10 04:59 :00 No [id number] 10mg Take 1 tablet by mouth in the morning for [address] [facility] metoprolol succinate XL 50 mg 24 hr tablet 03-10 00:00: 00 04-10 04:59 :00 No [id number] 50mg Take 1 tablet by mouth in the morning for [address] [facility] glimepiride (AMARYL) 4 mg tablet 03-09 19:56: 26 Yes 4mg Take 4 mg by mouth daily with breakfast. [facility] ALPRAZolam (XANAX) 1 mg tablet 03-09 19:56: 26 Yes 1mg Take 1 mg by mouth 3 (three) times daily. [facility] omega-3 fatty acids-vitam in E (FISH OIL) 1,000 mg capsule 03-09 19:56: 26 Yes 1g Take 1 g by mouth daily. [facility] rosuvastati n (CRESTOR) 10 mg tablet 03-09 15:36: 42 03-09 00:00 :00 No 10mg Take 10 mg by mouth at bedtime. [facility] metoprolol succinate XL (TOPROL XL) 50 mg 24 hr tablet 03-09 15:36: 42 03-09 00:00 :00 No 50mg Take 50 mg by mouth daily. [facility] hydrochloro thiazide (ESIDRIX) 25 mg tablet 03-09 15:36: 42 03-09 00:00 :00 No 25mg Take 25 mg by mouth daily. [facility] canaglifloz in (INVOKANA) 300 mg tablet 03-09 15:36: 42 03-09 00:00 :00 No Take by mouth. [facility] metFORMIN (GLUCOPHAGE ) 1,000 mg tablet 03-09 15:36: 42 03-09 00:00 :00 No 1000mg Take 1,000 mg by mouth 2 (two) times daily with meals. [facility] Amlodipine- Olmesartan (SKYLAR) 10-40 mg per tablet 03-09 15:36: 42 03-09 00:00 :00 No Take by mouth. [facility] INSULIN DETEMIR (LEVEMIR FLEXTOUCH SC) 03-09 15:36: 42 03-09 00:00 :00 No inject under the skin. [facility] aspirin 81 mg EC tablet 03-09 15:36: 42 03-09 00:00 :00 No 81mg Take 81 mg by mouth daily. [facility] rosuvastati n (CRESTOR) tablet 10 mg 03-09 02:00: 00 Yes 10mg 10 mg, Oral, QHS, First dose on Mon03/08/23 at 2100, Until Discontinu ed, Routine [facility] aspirin 81 mg EC tablet 03-09 00:00: 00 04-09 04:59 :00 No [id number] 81mg Take 1 tablet by mouth in the morning for [address] [facility] hydroCHLORO thiazide 25 mg tablet 03-09 00:00: 00 04-09 04:59 :00 No [id number] 25mg Take 1 tablet by mouth in the morning for [address] [facility] metFORMIN 1,000 mg tablet 03-09 00:00: 00 04-09 04:59 :00 No [id number] 1000mg Take 1 tablet by mouth in the morning and 1 tablet in the evening. Take with meals. Do all this for [address] [facility] rosuvastati n 10 mg tablet 03-09 00:00: 00 04-09 04:59 :00 No [id number] 10mg Take 1 tablet by mouth at bedtime for [address] [facility] sulfur hexafluorid e microsphr (LUMASON) injection 5 mL 03-08 15:45: 00 03-08 15:45 :00 No [id number] 5mL 5 mL, Intravenou s, ONCE, 1 dose, On Mon03/08/23 at 1045, Routine
engineering faculty member approving Restricted medication : RONALD AVILA [facility] Saline Bubble Study 03-08 15:41: 23 Yes [id number] 6mL 6 mL, Injection, SEE-INSTRU CTIONS, Starting on Mon03/08/23 at 1041, Until Discontinu ed, Routine [facility] insulin glargine (LANTUS U-100) injection 15 Units 03-08 14:15: 00 Yes 15U 15 Units, Subcutaneo us, DAILY, First dose on Mon03/08/23 at 0915, Until Discontinu ed, Routine [facility] amLODIPine (NORVASC) tablet 10 mg 03-08 14:15: 00 Yes 10mg 10 mg, Oral, DAILY, First dose on Mon03/08/23 at 0915, Until Discontinu ed, Routine [facility] metoprolol succinate XL (TOPROL XL) tablet 50 mg 03-08 14:15: 00 Yes 50mg 50 mg, Oral, DAILY, First dose on Mon03/08/23 at 0915, Until Discontinu ed, Routine [facility] hydroCHLORO thiazide (ESIDRIX) tablet 25 mg 03-08 14:15: 00 Yes 25mg 25 mg, Oral, DAILY, First dose on Mon03/08/23 at 0915, Until Discontinu ed, Routine [facility] aspirin EC tablet 81 mg 03-08 14:15: 00 Yes 81mg 81 mg, Oral, DAILY, First dose on Mon03/08/23 at 0915, Until Discontinu ed, Routine [facility] ALPRAZolam (XANAX) tablet 1 mg 03-08 14:04: 36 Yes 1mg 1 mg, Oral, TIDPRN, Starting on Mon03/08/23 at 0904, Until Discontinu ed, Routine, Anxiety [facility] Sliding Scale Insulin - Lispro (HumaLOG) 03-08 13:00: 00 Yes Subcutaneo us, TID MEALS+HS, First dose on Mon03/08/23 at 0800, Until Discontinu ed, Routine [facility] heparin (porcine) injection 5,000 Units 03-08 11:00: 00 Yes 5000U 5,000 Units, Subcutaneo us, Q8H, First dose on Mon03/08/23 at 0600, Until Discontinu ed, Routine [facility] hydralAZINE (APRESOLINE ) injection 10 mg 03-08 09:38: 44 Yes 10mg 10 mg, Slow IV Push, Q4HPRN, Starting on Mon03/08/23 at 0438, Until Discontinu ed, Routine, DBP=>100; SBP=>180 [facility] glucagon (GLUCAGEN DIAGNOSTIC KIT) injection 1 mg 03-08 09:36: 45 Yes 1mg 1 mg, Intramuscu lar, PRN, Starting on Mon03/08/23 at 0436, Until Discontinu ed, RENETTA, Blood Glucose < or = 70 mg/dL and patient is NPO, unable to swallow or has mental changes. [facility] dextrose 50 % in water (D50W) injection 25 mL 03-08 09:36: 45 Yes 25mL 25 mL, Slow IV Push, PRN, Starting on Mon03/08/23 at 0436, Until Discontinu ed, RENETTA, Blood Glucose < or = 70 mg/dL and patient is NPO, unable to swallow or has mental status changes. [facility] ondansetron (ZOFRAN (PF)) injection 4 mg 03-08 09:36: 24 Yes 4mg 4 mg, Slow IV Push, Q6HPRN, Starting on Mon03/08/23 at 0436, Until Discontinu ed, Routine, Nausea and Vomiting (N/V) [facility] HYDROcodone -acetaminop hen (NORCO 5) 5-325 mg tablet 1 tablet 03-08 09:36: 16 03-10 09:35 :16 No 1{tbl} 1 tablet, Oral, Q6HPRN, Starting on Mon03/08/23 at 0436, Until Mon03/10/23 at 0435, Routine, Pain (scale 4-6) [facility] acetaminoph en (TYLENOL) tablet 650 mg 03-08 09:36: 10 Yes 650mg 650 mg, Oral, Q6HPRN, Starting on Mon03/08/23 at 0436, Until Discontinu ed, Routine, Pain (scale 1-3), Temp > 38 C [facility] ondansetron (ZOFRAN (PF)) injection 4 mg 03-08 05:45: 00 03-08 05:40 :00 No 4mg 4 mg, Slow IV Push, ONCE, 1 dose, On Mon03/08/23 at 0045, RENETTA [facility] VESIcare 5 MG VESIcare 5 MG [...] Systolic blood pressure 2023-03-10 00:08:00 163 mm[Hg] [facility] Diastolic blood pressure 2023-03-10 00:08:00 90 mm[Hg] [facility] Heart rate 2023-03-10 00:08:00 70 /min [facility] Body temperature 2023-03-10 00:08:00 35.17 Teresa [facility] Respiratory rate 2023-03-10 00:08:00 16 /min [facility] Oxygen saturation in Arterial blood by Pulse oximetry 2023-03-10 00:08:00 90 /min [facility] Body weight 2023-03-09 08:37:00 102.967 kg [facility] BMI 2023-03-09 08:37:00 30.79 kg/m2 [facility] Body height 2023-03-08 09:35:00 182.9 cm [facility] height 2020-12-03 11:15:00 70 [in_i] Commo n [facility] weight 2020-12-03 11:15:00 197 [lb_av] Comm on [facility] temperature 2020-12-03 11:15:00 97.6 [degF] Com mon [facility] bmi 2020-12-03 11:15:00 28.26 kg/m2 Comm on [facility] oximetry 2020-12-03 11:15:00 97 % Commo n [facility] blood pressure systolic 2020-12-03 11:15:00 139 mm[Hg] [facility] blood pressure diastolic 2020-12-03 11:15:00 64 mm[Hg] [facility] height 2020-08-24 14:00:00 70 [in_i] Commo n [facility] weight 2020-08-24 14:00:00 199.6 [lb_av] Co mmon [facility] temperature 2020-08-24 14:00:00 98.4 [degF] Com mon [facility] bmi 2020-08-24 14:00:00 28.64 kg/m2 Comm on [facility] oximetry 2020-08-24 14:00:00 96 % Commo n [facility] blood pressure systolic 2020-08-24 14:00:00 197 mm[Hg] [facility] blood pressure diastolic 2020-08-24 14:00:00 86 mm[Hg] [facility] Procedures Procedure Date / Time Performed Performing Clinician Source POCT GLUCOSE (AUTOMATED) 2023-03-09 21:33:00 Janiya Tafoya [facility] POCT GLUCOSE (AUTOMATED) 2023-03-09 16:39:00 Janiya Tafoya [facility] POCT GLUCOSE (AUTOMATED) 2023-03-09 12:45:00 Janiya Tafoya [facility] PHOSPHORUS 2023-03-09 09:02:00 [facility] MAGNESIUM 2023-03-09 09:02:00 Starla Tafoya [facility] TROPONIN I 2023-03-09 09:02:00 Kel Yin [facility] HEPATIC FUNCTION PANEL ([id number]) (ALB,T.PRO,BILI T,BU/BC,ALT,AST,ALK PHOS) 2023-03-09 09:02:00 Kel Yin [facility] BASIC METABOLIC PANEL (NA, K, CL, CO2, GLUCOSE, BUN, CREATININE, CA) 2023-03-09 09:02:00 Starla Tafoya [facility] CBC WITH DIFF 2023-03-09 09:02:00 [facility]-BNP 2023-03-09 09:02:00 Kel Yin [facility] POCT GLUCOSE (AUTOMATED) 2023-03-09 02:08:00 Janiya Tafoya [facility] TROPONIN I 2023-03-08 22:51:00 Starla Tafoya [facility] GLYCOSYLATED HEMOGLOBIN (A1C) 2023-03-08 22:51:00 Jagdish Martin [facility] POCT GLUCOSE (AUTOMATED) 2023-03-08 21:22:00 Janiya Tafoya [facility] POCT GLUCOSE (AUTOMATED) 2023-03-08 16:16:00 Janiya Tafoya [facility] TRANSTHORACIC ECHO (TTE) COMPLETE W/ CONTRAST 2023-03-08 14:29:00 Starla Tafoya [facility] POCT GLUCOSE (AUTOMATED) 2023-03-08 12:39:00 Janiya Tafoya [facility] PHOSPHORUS 2023-03-08 11:24:00 [facility] TROPONIN I 2023-03-08 11:24:00 [facility] N-TERMINAL PRO-BNP 2023-03-08 11:24:00 Candi Patel [facility] XR CHEST 1 VW 2023-03-08 06:27:00 Temi Holloway [facility] HB ECG ROUTINE & RHYTHM STRIP 2023-03-08 05:39:37 Temi Holloway [facility] LIPASE 2023-03-08 05:39:00 Temi Holloway [facility] TROPONIN I 2023-03-08 05:39:00 Temi Holloway [facility] THYROID STIMULATING HORMONE 2023-03-08 05:39:00 Starla Tafoya [facility] COMP. METABOLIC PANEL (47117) 2023-03-08 05:39:00 Temi Holloway [facility] LIPID PANEL (01512)(TOTAL CHOLESTEROL, TRIGLYCERIDES, HDL) 2023-03-08 05:39:00 Starla Tafoya [facility] CBC WITH DIFF 2023-03-08 05:39:00 Temi Holloway [facility] GLYCOSYLATED HEMOGLOBIN (A1C) 2023-03-08 05:39:00 Starla Tafoya [facility] Encounters Start Date/Time End Date/Time Encounter Type Admission Type Attending Clinicians Care Facility Care Department Encounter ID Source 2021-10-27 12:15:25 Outpatient Bassam Donis [facility] [id number] [facility] 2021-10-27 12:07:45 Outpatient [facility] [id number] [facility] 2024-10-23 14:52:07 2024-10-23 14:52:07 Outpatient [facility] [id number] Noe Tolentino 2024-10-23 00:00:00 2024-10-23 00:00:00 Outpatient Visit [facility]FA [id number] Noe Tolentino 2023-08-08 10:16:00 2023-08-08 10:16:00 Outpatient Michael Barrett [facility] EKG [id number] [facility] 2023-03-10 00:00:00 2023-03-10 00:00:00 Transition of Care Jose Alcocer [facility] 1..[id number] [facility] 2023-03-08 00:29:00 2023-03-09 19:46:00 Emergency Romel Montez Jelani Abdullah, Yaman [facility] ..[id number] [facility] 2023-03-08 00:29:00 2023-03-09 19:46:00 Outpatient KEL ALVAREZ [facility] [id number] [facility] 2022-05-31 08:52:00 2022-05-31 08:52:00 Outpatient Jose Dial [facility] [id number] [facility] 2022-05-11 10:11:00 2022-05-11 10:11:00 Outpatient Chad Rae [facility] [id number] [facility] 2022-05-11 10:11:00 2022-05-11 10:11:00 Outpatient Chad RaeCL [facility] [id number] [facility] 2020-12-03 00:00:00 2020-12-03 00:00:00 OFFICE VISIT ESTAB PT LEVEL 2 [facility]LMLC STLMLC [id number] [facility] 2020-08-24 00:00:00 2020-08-24 00:00:00 OFFICE VISIT NEW PT LEVEL 4 STLMLC STLMLC [id number] [facility] Results Test Description Test Time Test Comments Results Result Co mments Source [facility] GLUCOSE (AUTOMATED)2023-03-09 16:43:52* Test Item Value Reference Range Interpretation Comme nts POCT GLU (test code = 3171105010) 138 mg/dL 70-110 H Lab Interpretation (test cod e = 89624-2) Abnormal [facility] GLUCOSE (AUTOMATED)2023-03-09 12:55:44* Test Item Value Reference Range Interpretation Comme nts POCT GLU (test code = 2607520446) 126 mg/dL 70-110 H Lab Interpretation (test cod e = 34373-9) Abnormal [facility] GLUCOSE (AUTOMATED)2023-03-09 02:09:42* Test Item Value Reference Range Interpretation Comme nts POCT GLU (test code = 4851043162) 115 mg/dL 70-110 H Lab Interpretation (test cod e = 40801-3) Abnormal [facility] GLUCOSE (AUTOMATED)2023-03-08 21:32:42* Test Item Value Reference Range Interpretation Comme nts POCT GLU (test code = 3009804120) 266 mg/dL 70-110 H Lab Interpretation (test cod e = 06732-6) Abnormal [facility] GLUCOSE (AUTOMATED)2023-03-08 16:26:44* Test Item Value Reference Range Interpretation Comme nts POCT GLU (test code = 8642720204) 195 mg/dL 70-110 H Lab Interpretation (test cod e = 67175-7) [facility]23-03-08 12:40:58* Test Item Value Reference Range Interpretation Comme [facility] POCT GLU (test code = 6651527838) 179 mg/dL 70-110 H Lab Interpretation (test cod e = 40485-0) Abnormal [facility] (TSH)2023-03-08 11:56:52* Test Item Value Reference Range Interpretation Comme [facility] TSH (test code = 8279521977) 5.09 See_Comment H Biotin has been reported to cause a negative bias, interpret results relative to patient's use of biotin. [Automated message] The system which generated this result transmitted reference range: 0.45 - 4.70 mIU/L. The reference range was not used to interpret this result as normal/abnormal. Lab Interpretation (test code = 85774-0) [facility]normal [facility] (A1C)2023-03-08 11:27:39* Test Item Value Reference Range Interpretation Comme [facility] HGB A1C (test code = 4548-4) 9.3 % 4.0-5.7 H TRINIDAD (test code = TRINIDAD) Reference RangesNormal: <5.7%Prediabetes: 5.7 - 6.4%Diabetes: > 6.5% Lab Interpretation (test code = 80079-8) Abnormal [facility] (Total Cholesterol, Triglycerides, HDL)2023-03-08 11:14:15* Test Item Value Reference Range Interpretation Comme nts CHOL (test code = 6237333059) 166 mg/dL 120-200 HDL (test code = 7702752105) 51 mg/dL >=40 HDLC RATIO (test code = 4150581623) 3.3 <=5.0 TRIG (test code = 1213154118) 83 mg/dL 30-170 LDL CHOL (test code = 85892-1) 98 mg/dL <=160 VLDL (test code = 8632694703) 17 mg/dL 5-60 Lab Interpretation (test cod e = 75193-9) Normal [facility] [id number] 06:21:21* Test Item Value Reference Range Interpretation Comme nts TROPONIN I (test code = 4098906663) 0.075 ng/mL <=0.034 H TRINIDAD (test code [...] of biotin. Lab Interpretation (test code = 40791-3) Abnormal [facility]. METABOLIC PANEL (53169)2023-03-08 06:10:20* Test Item Value Reference Range Interpretation Comme nts NA (test code = 1410224964) 135 mmol/L 135-145 K (test code = 1607735983) 4.3 mmol/L 3.5-5.0 CL (test code = 1789861900) 104 mmol/L 98-108 CO2 TOTAL (test code = 3901571522) 26 mmol/L 23-31 AGAP (test code = 6689559221) 5 2-16 BUN (test code = 4936503413) 27 mg/dL 7-23 H GLUCOSE (test code = 0879360959) 243 mg/dL 70-110 H CREATININE (test code = 4055696026) 2.15 mg/dL 0.60-1.25 H TOTAL BILI (test code = 9034456089) 0.8 mg/dL 0.1-1.1 CALCIUM (test code = 8546123808) 8.2 mg/dL 8.6-10.6 L T PROTEIN (test code = 6034285628) 6.0 g/dL 6.3-8.2 L ALBUMIN (test code = 0096673717) 2.5 g/dL 3.5-5.0 L ALK PHOS (test code = 6656986922) 60 U/L 34-122 ALTv (test code = 1742-6) 17 U/L 5-50 AST(SGOT) (test code = 1102050922) 26 U/L 13-40 eGFR (test code = 2828587774) 30.1 mL/min/1.73m2 TRINIDAD (test code = TRINIDAD) [...] imaging tests). Lab Interpretation (test code = 97050-0) [facility]normal [facility], [id number] 06:09:44* Test Item Value Reference Range Interpretation Comme nts LIPASE (test code = 0473857042) 101 U/L 0-220 Lab Interpretation (test cod e = 60883-0) [facility] [id number] 05:51:59* Test Item Value Reference Range Interpretation Comme nts WBC (test code = 6690-2) 5.65 See_Comment [Automated Adteractive] The system which generated this result transmitted [...] 31.9 g/dL 31.2-35.0 RDW-SD (test code = 70926-2) 56.7 fL 38.5-51.6 H RDW-CV (test code = 788-0) 19.4 % 12.1-15.4 H PLT (test code = 777-3) 232 See_Comment [Automated messa ge] The system which generated this result transmitted reference range: 150 - 328 10*3/?L. The reference range was not used to interpret this result as normal/abnormal. MPV (test code = 56638-4) 10.5 fL 9.8-13.0 NRBC/100 WBC (test code = 5311972974) 0.0 See_Comment [Automated StyleZen ssage] The system which generated this result transmitted reference range: 0.0 - 10.0 /100 WBCs. The reference range was not used to interpret this result as normal/abnormal. NRBC x10^3 (test code = 5523585168) See_Comment [Automated messa ge] The system which generated this result transmitted reference range: 10*3/?L. The reference range was not used to interpret this result as normal/abnormal. GRAN MAT (NEUT) % (test code = 770-8) 68.1 % IMM GRAN % (test code = 5481596898) 0.20 % LYMPH % (test code = 736-9) 20.0 % MONO % (test code = 5905-5) 9.2 % EOS % (test code = 713-8) 1.6 % BASO % (test code = 706-2) 0.9 % GRAN MAT x10^3(ANC) (test code = 7756671369) 3.85 10*3/uL 1.99-6.95 IMM GRAN x10^3 (test code = 9954700792) 0.00-0.06 LYMPH x10^3 (test code = 731-0) 1.13 10*3/uL 1.09-3.23 MONO x10^3 (test code = 742-7) 0.52 10*3/uL 0.36-1.02 EOS x10^3 (test code = 711-2) 0.09 10*3/uL 0.06-0.53 BASO x10^3 (test code = 704-7) 0.05 10*3/uL 0.01-0.09 Lab Interpretation (test code = 13437-9) [facility]normal [facility] I[facility] [id number] 10:17:00 * Test Item Value Reference Range [...] waivedcomplexity tests. 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 COMPARISON: No relevant prior studies avai lable. FINDINGS: CARDIAC CTA/THORACIC CTA: AORTIC VALVE: There [...] 1 Signed Report (CONTINUED) Name: ALBERT SANCHEZ [facility] : 1950 Age/S: 72 / M [address] [place] [address] Blvd Unit #: [id number] Loc: [place] [address] Phys: ChrisstephanieLiu brennanalexandria PART TIME FLEXIBLE CLERK Acct: [id number] Dis Date: Status: REGCLI PHONE #: [phone] Exam Date: 05/31/2022 1012 FAX #: [phone] Reason: EXAMS: CPT CODE:[id number] CTA HEART W CN ART/GRAFTS 33327 (Continued) mitral annular calcification. PERICARDIUM: No evidence of pericardial effusion. MEDIASTINUM: Mild enlargement of mediastinal lymph nodes in the right paratracheal region, left paratracheal region, left AP window, bilateral hilar and infracarinalstations, the largest in the right paratracheal region [...] score of the aortic valve is 1658. Aorti c annulus 26.6 x 21 mm, area of [...] seminal vesicles within normal limits. BONES AND SOFTTISSUES: There are no bony lytic or blastic lesions. PAGE 2 Signed Report (CONTINUED) Name: ALBERT SANCHEZ [facility] : 1950 Age/S: 72 / M [address] [place] [address] Blvd Unit #: [id number] Loc: [place] [address] Phys: Jose Reinoso [facility] Acct: [id number] Dis Date: Status: REG CLI PHONE #: [phone] Exam Date: 05/31/2022 1012 FAX #: [phone] Reason: EXAMS: CPT CODE: [id number] CTA HEART W CN ART/GRAFTS 14994 (Continued) Small uncomplicated fat containing umbilical hernia. [...] Technologist:RT Tripp(R)(CT) CTDI: DLP: Trnscb Date/Time: 05/31/2022 (1722) [email or web address] Orig Print D/T: S: 05/31/2022 (1722) PAGE 3 Signed Report- CTA ABD PEL W CONT 2022-05-31 00:00:00 [facility] 1950 Sex: M Name: ALBERT SANCHEZ [facility] : 1950 Age/S: 72 / M [address] [place] [address] Bl Unit #: [id number] Loc: [place] [address] Phys: Jose Reinoso Acct: [id number] Dis Date: Status: REG CLIPHONE #: [phone] Exam Date: 05/31/2022 1012 FAX #: [phone] Reason: 135.0, SEVERE AORTIC STENOSIS. EXAMS: CPT CODE: [id number] CTA ABD PEL W CONT 86976 PROCEDURE INFORMATION: Exam: CTA HeartAnd Coronary Arteries [...] one of these dose optimization techniques: automated expos ure control; mA and/or kV adjustment per patient [...] no evidence of aortic dissection. Aortic arch ves sels are patent. THORACIC AORTIC MEASUREMENTS: Thoracic aortic [...] 1 Signed Report (CONTINUED) Name: ALBERT SANCHEZ [facility] : 1950 Age/S: 72 / M [address] [place] [address] Blvd Unit #: [id number] Loc: [place] [address] Phys: Jose Reinoso [facility] Acct: [id number] Dis Date: Status: REG CLI PHONE #: [phone] Exam Date: 05/31/2022 1012 FAX #: [phone] Reason: 135.0, SEVERE AORTIC STENOSIS. EXAMS: CPT CODE: [id number] CTA ABD PEL W CONT 85052 (Continued) mitral annular calcification. PERICARDIUM: No evidence [...] arteries are patent, measuring 6 mm or greater.ABDOMEN and PELVIS: The liver, gallbladder, biliary ducts, [...] There are no bony lytic or blastic lesions.PAGE 2 Signed Report (CONTINUED) Name: ALBERT SANCHEZ [facility] : 1950 Age/S: 72 / M [address] [place] [address] Unit #: [id number] Loc: [place] [address] Phys: Jose Reinoso Acct: [id number] Dis Date: Status: REG CLI PHONE #: [phone] Exam Date: 05/31/2022 1012 FAX #: [phone] Reason: 135.0, SEVERE AORTIC STENOSIS. EXAMS: CPT CODE: [id number] CTA ABD PEL W CONT 52547 (Co ntinued) Small uncomplicated fat containing umbilical hernia. IMPRESSION: Mild atherosclerosis of the abdominal aorta which is widely patent with a minimal luminal diameter of 18 x 17 mm in the infrarenal segment. Moderate atherosclerosis of the bilateral iliofemoral branches. The bilateral common i liac, external iliac and common femoral arteries are [...] (1722) [email or web address] Orig Print D/T: S: 05/31/2022 (0931) PAGE 3 Signed Report- CT ANGIO [id number] 00:00:00[facility] DAGMAR GONSALESName: ALBERT SANCHEZ : 1950 Sex: M Name: ALBERT SANCHEZ [facility] Dag[place] : 1950 Age/S: 72 / M [address] Unit #: [id number] Loc: [place] [address] Phys: Jose Reinoso [facility] Acct: [id number] Dis Date: Status: MITZY PRUITT #: [phone] Exam Date: 05/31/2022 1012 FAX #: [phone] Reason: 135.0 , SEVERE AORTIC STENOSIS. EXAMS: CPT CODE: [id number] CT ANGIO CHEST 36354 PROCEDURE INFORMATION: Exam: CTA Heart AndCoronary Arteries With Contrast Exam date and time: 05/31/2022 10:09 AM Age: 72 years old Clinical indication: Other: Aortic stenosis TECHNIQUE: Imaging protocol: CT angiography of the heart, coronaryarteries, and bypass grafts (when present) with contrast [...] one of these dose optimization techniques: automated exposurecontrol; mA and/or kV adjustment per patient size [...] no evidence of aortic dissection. Aortic arch vesselsare patent. THORACIC AORTIC MEASUREMENTS: Thoracic aortic measurements [...] LA or LV thrombus. Mild PAGE 1 SignedReport (CONTINUED) Name: ALBERT SANCHEZ [facility] [place] : 1950 Age/S: 72 / M [address] [place] [address] Blvd Unit #: [id number] Loc: [place] [address] Phys: Jose Reinoso PART TIME FLEXIBLE CLERK Acct: [id number] Dis Date: Status: REG CLI PHONE #: [phone] Exam Date: 05/31/2022 1012 FAX #: [phone] Reason: 135.0 , SEVERE AORTIC STENOSIS. EXAMS: CPT CODE: [id number] CT ANGIO CHEST 38508 (Continued) mitral annular calcification. PERICARDIUM: No evidence [...] are patent, measuring 6 mm or greater. ABDOMENand PELVIS: The liver, gallbladder, biliary ducts, pancreas, [...] 2 Signed Report (CONTINUED) Name: ALBERT SANCHEZ [facility] : 1950 Age/S: 72 / M [address] [place] [address] Blvd Unit #: [id number] Loc: [place] [address] Phys: Jose Reinoso Acct: [id number] Dis Date: Status: REG CLI PHONE #: [phone] Exam Date: 05/31/2022 1012 FAX #: [phone] Reason: 135.0 , SEVERE AORTIC STENOSIS. EXAMS: CPT CODE: [id number] CT ANGIO CHEST 25496 (Continued) Small uncomplicated fat containing umbilical hernia. [...] (1723) [email or web address] Orig Print D/T: S: 05/31/2022 (6238) PAGE 3 Signed ReportGLUCOSE [id number] 09:36:00* Test Item Value Reference Range Interpretation Comme nts GLUCOSE BEDSIDE (test code = GLUBED) 137 MG/DL 70-110 H Performed by cer tifmillie press operator helper at [facility] BASIC METABOLIC [id number] 16:24:00* Test Item Value Reference Range Interpretation [...] = CA) 8.9 mg/dL 8.0-10.5 N PROTHROMBIN [id number] 16:19:00* Test Item Value Reference Range Interpretation [...] Infarction (to prevent recurrent infarct). CBC W/AUTO [id number] 16:09:00* Test Item Value Reference Range Interpretation [...] DIFF REQUIRED (test c ode = MDIFF) NO"
--- NOTE | 2024-11-12 09:59 | RAD REPORT ---
EXAM: CT brain without contrast HISTORY: Alteration of consciousness/confusion COMPARISON: 2023 TECHNIQUE: Multiple contiguous axial images were obtained and a CT of the brain without contrast.. Sagittal and coronal reconstruction performed. Automated exposure control, adjustment of the mA and/or kV according to patient size, and/or iterative reconstruction. Unless otherwise specified, incidental f indings do not require dedicated imaging follow-up FINDINGS: An intracranial bleed is not seen Prominence of the ventricles. No extra-axial fluid collection noted Moderate low-density paraventricular, deep and subcortical white matter probably ischemic changes sec ondary to small vessel disease. No fluid within the visualized sinuses or mastoids noted.. Chronic right maxillary sinusitis IMPRESSION: Prominence of the ventricles most likely the sequela of cerebral atrophy. Normal pressure hydrocephal us can have this appearance but is considered likely. This should be correlated clinically.. If the patient continues to have symptoms to suggest an acute intracranial abnormality then MRI of th e brain would be recommended.
--- NOTE | 2024-11-12 10:10 | RAD REPORT ---
Procedure: Chest Single View HISTORY: COPD COMPARISON: 2023 FINDINGS: The lungs appear clear of acute infiltrate. Lungs are hyperaerated. No significant pleural effusion noted. The heart is mildly to moderately enlarged IMPRESSION: No acute abnormality is displayed.
[2024-11-12 12:04] LABS: Absolute Basophils 0.1 K/uL (0-0.5); Absolute Eosinophils 0.2 K/uL (0-0.5); Absolute Lymphocytes (CBC) 0.8 K/uL (0.7-4.9); Absolute Monocytes 0.6 K/uL (0.1-1.3); Absolute Neutrophil 8.2 K/uL (1.8-8.0); Basophils % 0.9 % (0-1.3); Eosinophils % 1.5 % (0-4.4); Hematocrit 49.2 % (39.6-49.0); Lymphocytes % 8.3 % (15.3-44.8); MCH 27.7 pg (27.0-35.0); MCHC 32.5 g/dL (32.0-36.0); MCV 85.4 fL (80-100); MPV 8.3 fL (7.6-11.3); Monocytes % 6.5 % (3.3-12.3); Neutrophils % 82.8 % (41.7-73.7); Nucleated Red Blood Cells % 0.1 % (0-0); Platelets 334 thou/uL (152-406); RBC Red Blood Cell Count 5.77 M/uL (4.33-5.43); Red Cell Distribution Width 17.6 % (12.1-15.2)
[2024-11-12 13:20] LABS: Specific Gravity 1.017 (1.005-1.030); Sqamous Epithelial <5 /HPF (None Seen); Urine Bacteria None Seen /HPF (<20); Urine Bilirubin NEGATIVE (Negative); Urine Blood Negative (Negative); Urine Clarity Extremely Turbid (Clear); Urine Color Light-Yellow (Yellow); Urine Culture Reflex Order NOT NEEDED; Urine Glucose 3+ (Negative); Urine Ketones NEGATIVE (Negative); Urine Microscopic Reflex YN ORDER UMIC; Urine Nitrite NEGATIVE (Negative); Urine Protein 2+ (Negative); Urine RBC None Seen /HPF (None Seen); Urine Urobilinogen Normal (Normal); Urine WBC <5 /HPF (<5); Urine pH 5.5 (5.0-7.0)
[2024-11-12 13:29] LABS: AST/SGOT 11 U/L (15-37); Albumin 2.4 g/dL (3.4-5.0); Albumin/Globulin Ratio 0.4 (1.1-1.8); Alkaline Phosphatase 66 U/L (45-117); Anion Gap 13.4 mEq/L (5.0-15.0); BUN Blood Urea Nitrogen 106 mg/dL (7-18); Bicarbonate 18 mEq/L (21-32); Bilirubin Total 0.5 mg/dL (0.2-1.0); Globulin 6.5 g/dL (2.3-3.5); Glomerular Filtration Rate 11 ml/min (=/>90); Glucose Level 129 mg/dL (74-106); NT PRO-BNP 2814 pg/mL (<450); Potassium 5.4 mEq/L (3.5-5.1); Protein, Total 8.9 g/dL (6.4-8.2); Sodium Level 139 mEq/L (136-145)
[2024-11-12 13:32] LABS: ALT/SGPT < 14 U/L (16-61)
--- NOTE | 2024-11-12 13:47 | ER ---
Nurse's Notes [facility] Name: Julianna Kearns Age: 74 yrs Sex: Male : 1950 Arrival Date: 11/12/2024 Time: 08:53 Bed 3 Private MD: Diagnosis: Acute kidney failure, unspecified;Altered mental status, unspecified Presentation: 11/12 09:01 Chief complaint: EMS states: toned out to patient home for AMS. Pt found in recliner ld1 saturated in foul smelling urine. Coronavirus screen: At this time, the client does not indicate any symptoms associated with coronavirus-19. Ebola Screen: No symptoms or risks identified at this time. Initial Sepsis Screen: Does the patient meet any 2 criteria? No. Patient's initial sepsis screen is negative. Does the patient have a suspected source of infection? No. Patient's initial sepsis screen is negative. Risk Assessment: Do you want to hurt yourself or someone else? Patient reports no desire to harm self or others. Onset of symptoms was November 12, 2024. 09:01 Method Of Arrival: EMS: [facility] ld1 09:01 Acuity: VERONICA 3 ld1 Triage Assessment: 08:58 General: Appears in no apparent distress. comfortable, Behavior is calm, cooperative, ld1 appropriate for age. Pain: Denies pain. EENT: No signs and/or symptoms were reported regarding the EENT system. Neuro: Level of Consciousness is awake, alert, confused, Oriented to person, Appropriate for age. Cardiovascular: Capillary refill < 3 seconds Patient's skin is warm and dry. Respiratory: Airway is patent Respiratory effort is even, unlabored. GI: Abdomen is round non-distended. : No signs and/or symptoms were reported regarding the genitourinary system. Derm: No signs and/or symptoms reported regarding the dermatologic system. Musculoskeletal: No signs and/or symptoms reported regarding the musculoskeletal system. Historical: - Allergies: 08:58 PENICILLINS; ld1 - PMHx: 08:58 Atrial Fib; caridac stent; CHF; Chronic obstructive lung disease; Diabetes - NIDDM; ld1 Hypercholesterolemia; Hypertension; - PSHx: 08:58 cardiac stent; ld1 - Immunization history:: Adult Immunizations up to date. - Infectious Disease History:: Denies. - Social history:: Smoking status: Patient denies any tobacco usage or history of. - Family history:: not pertinent. - Hospitalizations: : No recent hospitalization is reported. Screenin:02 [place] ED Fall Risk Assessment (Adult) History of falling in the last 3 months, ld1 including since admission No falls in past 3 months (0 pts) Confusion or Disorientation No (0 pts) Intoxicated or Sedated No (0 pts) Impaired Gait No (0 pts) Mobility Assist Device Used No (0 pt) Altered Elimination No (0 pt) Score/Fall Risk Level 0 - 2 = Low Risk Oriented to surroundings, Hourly rounding (assess needs \T\ fall precautionary measures) done. Abuse screen: Denies threats or abuse. Denies injuries from another. Nutritional screening: No deficits noted. Tuberculosis screening: No symptoms or risk factors identified. Assessment: 09:02 Reassessment: See triage assessment. ld1 10:15 Reassessment: Patient appears in no apparent distress at this time. No changes from ld1 previously documented assessment. 11:45 Reassessment: Patient appears in no apparent distress at this time. No changes from ld1 previously documented assessment. Patient denies pain at this time. 13:00 Reassessment: Patient appears in no apparent distress at this time. No changes from ld1 previously documented assessment. Patient denies pain at this time. 13:50 Reassessment: Patient appears in no apparent distress at this time. No changes from ld1 previously documented assessment. Patient denies pain at this time. 15:40 Reassessment: Patient appears in no apparent distress at this time. No changes from ld1 previously documented assessment. Patient and/or family updated on plan of care and expected duration. Pain level reassessed. Patient is alert, oriented x 3, equal unlabored respirations, skin warm/dry/pink. Vital Signs: 08:58 BP 171 / 80; Pulse 98; Resp 18; Pulse Ox 100% on R/A; ld1 09:28 Temp 97.1(TE); Height 6 ft. 1 in. ; ld1 09:28 Pain 0/10; ld1 11:20 BP 162 / 79; Pulse 101; Resp 17; Pulse Ox 98% on R/A; ld1 11:58 Pulse 100; Resp 24; Pulse Ox 96% on R/A; ld1 13:49 BP 157 / 82; Pulse 98; Resp 18; Pulse Ox 99% on R/A; ld1 15:40 BP 162 / 72; Pulse 97; Resp 18; Pulse Ox 98% on R/A; ld1 09:28 Pain Scale: Adult ld1 ED Course: 08:58 Patient arrived in ED. ld1 08:58 Edouard Farley MD is Attending Physician. rn 08:58 Arm band placed on right wrist. ld1 09:02 Triage completed. ld1 09:02 Patient has correct armband on for positive identification. Placed in gown. Bed in low ld1 position. Call light in reach. Side rails up X2. monitoring manager on. Pulse ox on. NIBP on. Door closed. Noise minimized. Warm blanket given. 09:02 No provider procedures requiring assistance completed. Maintain EMS IV. Dressing ld1 intact. Good blood return noted. Site clean \T\ dry. Gauge \T\ site: 22 RAC. 09:28 Margarita Wade, RN is Primary Nurse. ld1 09:42 CT Head Brain wo Cont In Process Unspecified. EDMS 10:06 Chest Single View XRAY In Process Unspecified. EDMS 11:48 Accessed peripheral vein via ultrasound, utilizing dynamic ultrasound technique using ld1 20G Nexia IV catheter Clean \T\ dry. Dressing intact. Good blood return. Flushes easily. 13:13 Urine collected: PureWick. tm3 13:46 Quentin Farley MD is Hospitalizing Provider. rn 15:40 Provided Education on: admit. ko1 15:40 Patient admitted, IV remains in place. ko1 Administered Medications: No medications were administered Medication: 09:02 VIS not applicable for this client. ld1 Outcome: 13:46 Decision to Hospitalize by Provider. rn 15:40 Admitted to Med/surg accompanied by tech, via stretcher, with chart, ko1 15:40 Condition: stable 15:40 Instructed on the need for admit, 15:54 Patient left the ED. ld1 Signatures: Dispatcher [employer] EDMS Jeronimo Bailey tm3 Edouard Farley MD MD rn Sims, Lauren, RN RN ld1 Olivia Catherine RN RN ko1
--- NOTE | 2024-11-12 13:47 | EDPHYS ---
Physician Documentation [facility] Name: Julianna Kearns Age: 74 yrs Sex: Male : 1950 Arrival Date: 11/12/2024 Time: 08:53 Bed 3 Private MD: ED Physician Edouard Farley HPI: 11/12 09:16 This 74 yrs old Black Male presents to ER via EMS with complaints of AMS. rn 09:16 Possible causes: unknown. Current symptoms: In the emergency department the patient's rn symptoms are unchanged from the initial presentation. It is unknown whether or not the patient has had similar symptoms in the past. EMS reports family member called for altered mental status. Unclear as to how he was altered. No fever. No vomiting or diarrhea. No shortness of breath. Reports leg wounds have been weeping. No abdominal pain. Patient states he feels weak but not terrible. No trauma.. Historical: - Allergies: 08:58 PENICILLINS; ld1 - PMHx: 08:58 Atrial Fib; caridac stent; CHF; Chronic obstructive lung disease; Diabetes - NIDDM; ld1 Hypercholesterolemia; Hypertension; - PSHx: 08:58 cardiac stent; ld1 - Immunization history:: Adult Immunizations up to date. - Infectious Disease History:: Denies. - Social history:: Smoking status: Patient denies any tobacco usage or history of. - Family history:: not pertinent. - Hospitalizations: : No recent hospitalization is reported. ROS: 09:16 Constitutional: Negative for fever, chills, and weight loss, Cardiovascular: Negative rn for chest pain, palpitations, and edema, Respiratory: Negative for shortness of breath, cough, wheezing, and pleuritic chest pain, Abdomen/GI: Negative for abdominal pain, nausea, vomiting, diarrhea, and constipation, MS/Extremity: Negative for injury and deformity, Skin: Negative for injury, rash, and discoloration, Neuro: Negative for headache, numbness, tingling, and seizure Exam: 09:16 Constitutional: Disheveled male, no acute distress Cardiovascular: Tachycardic, rn regular. Respiratory: No increased work of breathing, no retractions or nasal flaring. Abdomen/GI: Soft, non-tender MS/ Extremity: No cyanosis. Moderate lymphedema and swelling of bilateral lower extremities with weeping wounds. No warmth. Neuro: Awake and alert, GCS 15 11:17 ECG was reviewed by the Attending Physician. rn Vital Signs: 08:58 BP 171 / 80; Pulse 98; Resp 18; Pulse Ox 100% on R/A; ld1 09:28 Temp 97.1(TE); Height 6 ft. 1 in. ; ld1 09:28 Pain 0/10; ld1 11:20 BP 162 / 79; Pulse 101; Resp 17; Pulse Ox 98% on R/A; ld1 11:58 Pulse 100; Resp 24; Pulse Ox 96% on R/A; ld1 13:49 BP 157 / 82; Pulse 98; Resp 18; Pulse Ox 99% on R/A; ld1 15:40 BP 162 / 72; Pulse 97; Resp 18; Pulse Ox 98% on R/A; ld1 09:28 Pain Scale: Adult ld1 MDM: 08:58 Medical Screening Exam initiated rn 13:45 Differential Diagnosis: electrolyte abnormality, hypoglycemia, pneumonia, UTI, volume rn depletion, Kidney failure. Data reviewed: vital signs, nurses notes, lab test result(s), radiologic studies, plain films, and as a result, I will admit patient. Consideration of Admission/Observation Patient was admitted/placed on observation. Escalation of care including admission/observation considered. Counseling: I had a detailed discussion with the patient and/or guardian regarding the historical points, exam findings, and any diagnostic results supporting the discharge/admit diagnosis, lab results, radiology results, the need for further work-up and treatment in the hospital. 11/12 09:14 Order name: Blood Culture Adult (2) rn 11/12 09:14 Order name: CBC with Diff; Complete Time: 12:56 rn 11/12 09:14 Order name: CMP; Complete Time: 13:43 rn 11/12 09:14 Order name: Lactate w/ 2H reflex if indic.; Complete Time: 12:56 rn 11/12 09:14 Order name: Protime (+inr) rn 11/12 09:14 Order name: Ptt, Activated rn 11/12 09:14 Order name: Urinalysis w/ reflexes; Complete Time: 13:43 rn 11/12 09:14 Order name: BNP; Complete Time: 13:43 rn 11/12 09:14 Order name: Chest Single View XRAY; Complete Time: 10:12 rn 11/12 09:14 Order name: CT Head Brain wo Cont; Complete Time: 10:00 rn 11/12 09:14 Order name: Accucheck; Complete Time: 13:48 rn 11/12 09:14 Order name: Cardiac monitoring; Complete Time: 09:28 rn 11/12 09:14 Order name: EKG - Nurse/Tech; Complete Time: 09:28 rn 11/12 09:14 Order name: IV Saline Lock - Large Bore; Complete Time: 13:48 rn 11/12 09:14 Order name: Labs collected and sent; Complete Time: 13:48 rn 11/12 09:14 Order name: O2 Per Protocol; Complete Time: : rn 11/12 09:14 Order name: O2 Sat Monitoring; Complete Time: : rn 11/12 09:14 Order name: Vital Signs; Complete Time: : rn 11/12 10:59 Order name: Labs - recollect needed: recollect blue green and lavender top; Complete bd Time: 12:11/12 12:06 Order name: Labs - recollect needed: recollect green and blue top; Complete Time: 13:48 bd EC:17 Rate is 106 beats/min. Rhythm is regular. Right axis deviation noted. QRS is negative rn in leads I, aVF. DE interval is normal. QRS interval is normal. QT interval is normal. No Q waves. T waves are Normal. No ST changes noted. Clinical impression: Sinus tachycardia. Interpreted by me. Reviewed by me. Administered Medications: No medications were administered Disposition Summary: 11/12/24 13:46 Hospitalization Ordered Notes: Hospitalization Status: Inpatient Admission rn Provider: Quentin Farley [facility] Condition: Stable rn Problem: new rn Symptoms: are unchanged rn Bed/Room Type: Standard rn Room Assignment: 215(11/12/24 14:59) bd Diagnosis - Acute kidney failure, unspecified rn - Altered mental status, unspecified rn Forms: - Medication Reconciliation Form rn - SBAR form rn - Leadership Thank You Letter rn Signatures: Dispatcher [employer] Destinee Garcia Roman, MD MD rn WadeMargarita RN RN ld1 Corrections: (The following items were deleted from the chart) 09:15 09:15 BLOOD CULTURE*+BA.LAB.BRZ ordered. EDMS EDMS 09:15 09:15 CBC+H.LAB.BRZ ordered. EDMS EDMS 09:15 09:15 COMPREHENSIVE METABOLIC PANEL+C.LAB.BRZ ordered. EDMS EDMS 09:15 09:15 LACTATE+C.LAB.BRZ ordered. EDMS EDMS 09:15 09:15 PROTIME (+INR)+COAG.LAB.BRZ ordered. EDMS EDMS 09:15 09:15 PTT, ACTIVATED+COAG.LAB.BRZ ordered. EDMS EDMS 09:15 09:15 Urinalysis+U.LAB.BRZ ordered. EDMS EDMS 09:15 09:15 PROBNP+C.LAB.BRZ ordered. EDMS EDMS 09:15 09:15 Chest Single View+RAD.RAD.BRZ ordered. EDMS EDMS 09:15 09:15 Head Brain Wo Cont+CT.RAD.BRZ ordered. EDMS EDMS 11:18 11:17 Rate is 106 beats/min. Rhythm is regular. Right axis deviation noted. QRS is rn negative in leads I, aVF. DE interval is normal. QRS interval is normal. QT interval is normal. No Q waves. T waves are Normal. No ST changes noted. Interpreted by me. Reviewed by me. seng 13:49 13:13 Labs - recollect needed ordered. bd ld1 14:59 13:46 seng golden
--- NOTE | 2024-11-12 15:44 | P.HP ---
Certification for Inpatient Patient admitted to: Inpatient With expected LOS: >2 Midnights Patient will require the following post-hospital care: None Practitioner: I am a practitioner with admitting privileges, knowledge of patient current condition, hospital course, and medical plan of care. Services: Services provided to patient in accordance with Admission requirements found in Title 42 Section 412.3 of the Code of Federal Regulations Patient History Date of Service: 11/12/24 Reason for admission: KAITLIN with hyperkalemia History of Present Illness: 74-year-old male with history of chronic diastolic congestive heart failure, atrial fibrillation on chronic anticoagulation, severe pulmonary hypertension, CKD 4, insulin-dependent diabetes, hypertension and hyperlipidemia presents to the emergency department with chief complaint of altered mental status and weakness. Family at the bedside report that for the past couple days he has been unable to get out of his chair, a bit confused and generally unwell. Family reports that in the last couple weeks he was taken off of amlodipine because the tobacco curer was worried about lower extremity edema, his Lasix was also reduced from 40 mg twice daily to 40 mg once daily about 2 weeks ago. Patient was evaluated in the emergency department his labs are significant for a potassium of 5.4 chloride of 113 bicarb 18 BUN 106 creatinine 4.97 BNP 2814 chest x-ray negative for acute findings. Patient does have some lower extremity edema but otherwise does not appear grossly overloaded. Discussed case with nephrology, will be admitted for acute kidney injury, hyperkalemia Allergies Penicillins Adverse Reaction (Verified 01/24/23 22:00) Hives Home Medications: Apixaban [Eliquis *] 5 mg PO BID 01/30/24 Ascorbic Acid [Vitamin C] 500 mg PO DAILY 01/30/24 Aspirin [Aspirin EC] 81 mg PO DAILY 01/30/24 Atorvastatin Calcium [Lipitor*] 80 mg PO BEDTIME 01/30/24 Cyanocobalamin (Vitamin B-12) [Vitamin B-12] 1,000 mcg PO DAILY 01/30/24 Empagliflozin [Jardiance] 25 mg PO DAILY 01/30/24 Ferrous Sulfate 324 mg PO DAILY 01/30/24 Sennosides [Senna] 8.6 mg PO DAILY 01/30/24 Ergocalciferol (Vitamin D2) [Vitamin D2] 50,000 unit PO EVERY 7TH DAY 05/09/24 Insulin Glargine-Yfgn 25 unit SQ DAILY 05/09/24 Melatonin 5 mg PO BEDTIME 05/09/24 Metoprolol Succinate [Toprol Xl*] 50 mg PO BEDTIME 05/09/24 Amlodipine [Norvasc*] 10 mg PO DAILY #30 tab 05/10/24 Gabapentin [Neurontin*] 100 mg PO TID #90 cap 05/10/24 Vits A and D/White Pet/Lanolin [A and D Ointment] 1 laquita TP BID #1 tube 05/10/24 Furosemide [Lasix*] 40 mg PO DAILY 30 Days #30 tab 08/24/24 Hydralazine [Apresoline*] 25 mg PO TID 30 Days #90 tab 08/24/24 Sildenafil Citrate [Revatio*] 20 mg PO BID 30 Days #60 tab 08/24/24 - Past Medical/Surgical History Diabetic: Yes -: hypertension -: hyperlipidemia -: Atrial fibrillation -: IDDM -: Coronary artery disease -: Aortic stenosis -: CHF-diastolic -: Severe pulmonary hypertension -: CKD 4 -: Cardiac Catheterization with stent placement -: Right leg surgery Psychosocial/ Personal History: Patient is , lives at home with family - Family History Brother -: Heart disease, Hypertension - Social History Alcohol use: Yes CD- Drugs: No Caffeine use: Yes Place of Residence: Home Review of Systems 10-point ROS is otherwise unremarkable General: Weakness, Malaise Musculoskeletal: Leg Pain Physical Examination - Physical Exam General: Alert, In no apparent distress, Oriented x2 HEENT: Atraumatic, PERRLA, EOMI Neck: Supple, 2+ carotid pulse no bruit Respiratory: Diminished Cardiovascular: Regular rate/rhythm, Normal S1 S2, Edema (2 to 3+ pitting edema lower extremities) Gastrointestinal: Normal bowel sounds Musculoskeletal: No tenderness Integumentary: Venous stasis ulcer (Ulcerations present to bilateral lower extremities) Neurological: Normal speech, Normal strength at 5/5 x4 extr - Studies Laboratory Data (last 24 hrs) 11/12/24 11/12/24 13:00 11:50 WBC 9.90 Hgb 16.0 Hct 49.2 H Plt Count 334 Sodium 139 Potassium 5.4 H BUN 106 H Creatinine 4.97 H Glucose 129 H Total Bilirubin 0.5 AST 11 L ALT < 14 L Alkaline Phosphatase 66 Assessment and Plan - Plan Assessment: KAITLIN on CKD 4 with hyperkalemia/uremia Metabolic encephalopathy secondary to above Chronic diastolic congestive heart failure CAD with previous stents Severe pulmonary hypertension Atrial fibrillation on chronic anticoagulation Diabetes mellitus type 2insulin-dependent Hypertension Hyperlipidemia Plan: KAITLNI on CKD 4 with hyperkalemia/uremia Metabolic encephalopathy secondary to above Nephrology consulted Will obtain renal ultrasound, continue gentle IV fluids overnight Repeat chemistry in the morning with CPK and uric acid No EKG changes with mild hyperkalemia currently Chronic diastolic congestive heart failure CAD with previous stents Severe pulmonary hypertension Gentle IV fluids overnight Monitor on telemetry Denies shortness of breath, chest x-ray does not show overload pattern Atrial fibrillation on chronic anticoagulation Resume home medications including NOAC when verified Diabetes mellitus type 2insulin-dependent ACHS Accu-Chek, sliding scale insulin Hypertension Hyperlipidemia Continue home medications when verified DVT PPX: Continue NOAC when verified Code status: Full code Discharge Plan: Home Plan to discharge in: Greater than 2 days - Advance Directives Does patient have a Living Will: Yes Does patient have a Durable POA for Healthcare: Yes - Code Status/Comfort Care Code Status Assessed: Yes (Full code) Critical Care: No Time Spent Managing Pts Care (In Minutes): 70
[2024-11-12] MEDS ORDERED: D10W 125 ML IV PRN (16:12)
[2024-11-12] MEDS ORDERED: GLUCAGON 1 MG/VIAL IM PRN (16:12)
[2024-11-12] MEDS: INSULIN REGULAR (HUMAN) 100 UNIT/ML SQ SCH (16:30)
[2024-11-12 16:44] VITALS: BMI 23.4
[2024-11-12] MEDS: NA CHLORIDE 0.9% 1,000 ML IV SCH (16:57)
[2024-11-12] MEDS: SODIUM BICARB 325 MG TAB PO SCH (18:05)
[2024-11-12] MEDS: APIXABAN 2.5 MG TABLET PO SCH (20:00)
[2024-11-12] MEDS: SILDENAFIL CITRATE 20 MG TABLET PO SCH (20:01)
[2024-11-12] MEDS: MELATONIN 5 MG TABLET PO SCH (20:01)
[2024-11-12] MEDS: ATORVASTATIN 80 MG TAB PO SCH (20:01)
[2024-11-12] MEDS: HYDRALAZINE HCL 25 MG TABLET PO SCH (20:58)
[2024-11-12] MEDS: METOPROLOL XL 50 MG TAB PO SCH (20:59)
[2024-11-12] MEDS: WHITE PET TOP SCH (21:00)
[2024-11-12] MEDS: LANOLIN TOP SCH (21:00)
[2024-11-12] MEDS: [UNRECOGNIZED DRUG - OTHER] TOP SCH (21:00)
[2024-11-12] MEDS: VITS A AND D TOP SCH (21:00)
--- NOTE | 2024-11-12 22:03 | RAD REPORT ---
EXAMINATION: US RETROPERITONEUM CLINICAL INDICATION: [facility] MAIN rell TECHNIQUE: Real-time ultrasonography of the abdomen was performed. COMPARISON: 08/14/2024 FINDINGS: RIGHT KIDNEY: Right renal length measurement: 7.9 cm. Normal in size. Echogenic renal cortex. No calc ulus, solid mass or hydronephrosis. LEFT KIDNEY: Left renal length measurement: 8.8 cm. Normal in size. Echogenic renal cortex. No calcul us, solid mass or hydronephrosis. URINARY BLADDER: Normal. ADDITIONAL FINDINGS: None. IMPRESSION: Echogenic renal cortex bilaterally, suggesting medical renal disease.
[2024-11-12 22:48] LABS: PT Prothrombin Time 15.4 SECONDS (9.4-12.5); PTT, Activated Partial Thromb 43.6 SECONDS (24.3-36.9); Protime INR 1.47
[2024-11-13 04:36] LABS: Absolute Basophils 0.1 K/uL (0-0.5); Absolute Eosinophils 0.3 K/uL (0-0.5); Absolute Lymphocytes (CBC) 0.7 K/uL (0.7-4.9); Absolute Monocytes 0.9 K/uL (0.1-1.3); Absolute Neutrophil 7.6 K/uL (1.8-8.0); Basophils % 0.6 % (0-1.3); Hematocrit 45.6 % (39.6-49.0); Hemoglobin 14.4 g/dL (13.6-17.9); MCH 26.8 pg (27.0-35.0); MCHC 31.6 g/dL (32.0-36.0); MCV 84.6 fL (80-100); MPV 7.7 fL (7.6-11.3); Monocytes % 9.2 % (3.3-12.3); Neutrophils % 80.2 % (41.7-73.7); Platelets 291 thou/uL (152-406); Red Cell Distribution Width 17.3 % (12.1-15.2)
[2024-11-13 04:48] LABS: AST/SGOT 14 U/L (15-37); Albumin/Globulin Ratio 0.4 (1.1-1.8); Alkaline Phosphatase 58 U/L (45-117); Anion Gap 10.7 mEq/L (5.0-15.0); BUN Blood Urea Nitrogen 98 mg/dL (7-18); Bicarbonate 21 mEq/L (21-32); Bilirubin Total 0.7 mg/dL (0.2-1.0); Creatine Phosphokinase 202 U/L (39-308); Globulin 5.7 g/dL (2.3-3.5); Glomerular Filtration Rate 14 ml/min (=/>90); Glucose Level 113 mg/dL (74-106); Magnesium 2.5 mg/dL (1.6-2.4); Potassium 4.7 mEq/L (3.5-5.1); Protein, Total 7.7 g/dL (6.4-8.2); Sodium Level 140 mEq/L (136-145); Uric Acid 10.1 mg/dL (3.5-7.2)
[2024-11-13 04:49] LABS: ALT/SGPT < 14 U/L (16-61)
[2024-11-13] MEDS: ASPIRIN EC 81 MG TAB PO SCH (08:31)
--- NOTE | 2024-11-13 11:46 | EKG ---
Test Date: 2024-11-12 Test Time: 09:11:23 El Teacher: FÉLIX MEASUREMENT RESULTS: Intervals: Rate: 106 PA: 170 QRSD: 82 QT: 350 QTc: 464 Brielle: P: 81 PA: 170 QRS: 268 T: 68 INTERPRETIVE STATEMENTS: Sinus tachycardia Possible Left atrial enlargement Right superior axis deviation Pulmonary disease pattern Nonspecific ST and T wave abnormality Abnormal ECG Compared to ECG 08/13/2024 12:40:55 Right superior axis now present Sinus rhythm no longer present Left-axis deviation no longer present Prolonged QT interval no longer present ST (T wave) deviation still present Electronically Signed On 11-13-24 11:44:24 DESTINATION COORDINATOR by Faraz Duque
[2024-11-13] MEDS: CALCITROL 0.25 MCG CAP PO SCH (13:22)
--- NOTE | 2024-11-13 15:43 | P.PN ---
Date of Service: 11/13/24 Subjective: no acute events overnight renal function improving ROS: 10 point ROS as noted above, otherwise negative Physical exam GEN: Alert, oriented, NAD HEENT: Normal conjunctiva, sclera anicteric CV: Regular rate and rhythm, no edema Pulm: Nonlabored respirations on room air ABD: Soft, nontender, nondistended MSK: No joint tenderness Integumentary: No rashes Neuro: Normal speech, normal affect Vitals reviewed Assessment: KAITLIN on CKD 4 with hyperkalemia/uremia Metabolic encephalopathy secondary to above Chronic diastolic congestive heart failure CAD with previous stents Severe pulmonary hypertension Atrial fibrillation on chronic anticoagulation Diabetes mellitus type 2insulin-dependent Hypertension Hyperlipidemia Plan: KAITLIN on CKD 4 with hyperkalemia/uremia Metabolic encephalopathy secondary to above Nephrology consulted and following Renal function improving Obtained renal ultrasound, continue gentle IV fluids Monitor chemistry daily Chronic diastolic congestive heart failure CAD with previous stents Severe pulmonary hypertension Gentle IV fluids for now Monitor on telemetry Denies shortness of breath, chest x-ray does not show overload pattern Atrial fibrillation on chronic anticoagulation Home meds continued Diabetes mellitus type 2insulin-dependent ACHS Accu-Chek, sliding scale insulin Hypertension Hyperlipidemia home medications continued DVT PPX: Eliquis continued Code status: Full code Discharge Plan: Home Plan to discharge in: Greater than 2 days Time Spent Managing Pts Care (In Minutes): 35
--- NOTE | 2024-11-13 16:29 | CON ---
Date of Consultation: 11/13/2024 Consulting Physician: Dr. Farley. Reason For Consultation: Elevated BUN and creatinine, fluid management. 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 Baseline creatinine as of August 2.3 with GFR of 28, hypertension, hyperlipidemia, congestive heart failure with ejection fraction of 40%, aortic stenosis, CAD. The patient came to the hospital complaining of poor intake, weakness and fatigue, found to have elevation in BUN and creatinine. Creatinine is 4.9 with GFR of 11, and marginal hyperkalemia. For that reason, we have been consulted. The patient has apparently been taking ibuprofen 1-2 tablets daily for the last few days. Also, the patient had been on diuretic of Lasix, was seen by Cardiology couple of weeks ago. Lasix was decreased from twice a day to once a day, but patient continued to decline. For that reason reported to the hospital. 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 Past Surgical History: Include cardiac cath and right knee surgery. Family History: Positive for hypertension and kidney disease. Home Medications: Include Revatio, metoprolol, insulin, gabapentin, Lasix, ergocalciferol, atorvastatin, aspirin, Eliquis. Social History: Denied smoking. Active alcohol. Denied drugs abuse. Review of Systems: Head and Neck: No red eye. No ear pain. GI: Decreased intake. Has nausea. : Decreased urine output. Ice Cream Freezer: Not applicable. Respiratory: No shortness of breath. Cardiovascular: No chest pain. No leg swelling. Endocrine: No polydipsia. Skin: No rash. Neuro: Has weakness and fatigue. No loss of conscious. No tremor. Skin: No rash. Physical Examination: Vital Signs: Blood pressure of 153/67, pulse of 85. Afebrile. Chest: Clear to auscultation. Heart: S1, S2 regular. Abdomen: Soft, nontender. Extremity: No edema. Neurologic: Alert. No focality. No tremor. Laboratory Data: For patient in August, creatinine 2.3, GFR 28. Yesterday, sodium 137, potassium 4.9, bicarb 23, BUN 60, creatinine 4.9, bicarb 18, potassium 5.3, GFR of 11, calcium 9.3. Lab data; sodium 140, potassium 4.7, bicarb 21, BUN 98, creatinine 4.2, GFR of 14, calcium 8.7, albumin 2, corrected calcium is 10.2. WBC 9.4, hemoglobin 14.4. Current renal ultrasound 7.9/8.8. Chest x-ray, cardiomegaly, no congestion. Urine was negative for infection. Uric acid 10.1. Assessment And Plan: 1. Acute kidney injury on advanced chronic kidney disease, possible secondary to prerenal, dehydration with mild uremic symptoms, marginal hyperkalemia and acidosis. Slight improvement in the kidney function. a. I do not see the need to initiate any renal replacement therapy for the time being. We will try with the hydration and we will see improvement. If the patient did not improve at that time, we will proceed with renal replacement therapy. I will start the patient on normal saline 50 per hour. Discontinue diuresis and we will follow up. 2. Hypertension, controlled optimal with the presence of acute kidney injury. Hold the diuresis. Start hydration. 3. Hyperkalemia secondary to renal failure, trending down. No need for treatment right now. 4. Acidosis, non-anion gap metabolic acidosis secondary to renal failure, resolved .. 5. Anemia of chronic kidney disease. No need for JEREMIAH. 6. Congestive heart failure, currently on the dry side. Hold diuresis. 7. Secondary hyperparathyroidism. I will start the patient on calcitriol and we will follow up the patient. 8. Diabetes, as by primary. Time spent examining the patient [id number] reviewing data lab and an audiology placing order discussing the case with the patient discussing the case with the receiving team member including hospitalist and nursing staff more than 75-minute ROBERT/LORNE Voice ID: [id number] Report ID: [id number] SHANTANU
[2024-11-14 06:11] LABS: Absolute Eosinophils 0.2 K/uL (0-0.5); Absolute Lymphocytes (CBC) 0.8 K/uL (0.7-4.9); Absolute Monocytes 1.1 K/uL (0.1-1.3); Absolute Neutrophil 9.6 K/uL (1.8-8.0); Basophils % 0.4 % (0-1.3); Eosinophils % 1.5 % (0-4.4); Hematocrit 45.2 % (39.6-49.0); Hemoglobin 14.7 g/dL (13.6-17.9); Lymphocytes % 6.6 % (15.3-44.8); MCH 27.2 pg (27.0-35.0); MCHC 32.6 g/dL (32.0-36.0); MCV 83.3 fL (80-100); MPV 8.3 fL (7.6-11.3); Monocytes % 9.4 % (3.3-12.3); Neutrophils % 82.1 % (41.7-73.7); Nucleated Red Blood Cells % 0.1 % (0-0); Platelets 284 thou/uL (152-406); RBC Red Blood Cell Count 5.42 M/uL (4.33-5.43); Red Cell Distribution Width 17.2 % (12.1-15.2)
[2024-11-14 06:24] LABS: Albumin 2.1 g/dL (3.4-5.0); Albumin/Globulin Ratio 0.4 (1.1-1.8); Anion Gap 14.9 mEq/L (5.0-15.0); Bilirubin Total 0.9 mg/dL (0.2-1.0); Globulin 5.5 g/dL (2.3-3.5); Magnesium 2.5 mg/dL (1.6-2.4); Phosphorus 3.5 mg/dL (2.5-4.9); Potassium 4.9 mEq/L (3.5-5.1); Protein, Total 7.6 g/dL (6.4-8.2)
--- NOTE | 2024-11-14 10:22 | P.PN ---
Date of Service: 11/14/24 Subjective: no acute events overnight renal function improving ROS: 10 point ROS as noted above, otherwise negative Physical exam GEN: Alert, oriented, NAD HEENT: Normal conjunctiva, sclera anicteric CV: Regular rate and rhythm, PAULA LE edmea with rash/ulceration Pulm: Nonlabored respirations on room air ABD: Soft, nontender, nondistended MSK: No joint tenderness Integumentary: No rashes Neuro: Normal speech, normal affect Vitals reviewed Assessment: KAITLIN on CKD 4 with hyperkalemia/uremia Metabolic encephalopathy secondary to above Chronic diastolic congestive heart failure CAD with previous stents Severe pulmonary hypertension Atrial fibrillation on chronic anticoagulation Diabetes mellitus type 2insulin-dependent Hypertension Hyperlipidemia Plan: KAITLIN on CKD 4 with hyperkalemia/uremia Metabolic encephalopathy secondary to above Nephrology consulted and following Renal function improving Obtained renal ultrasound, continue gentle IV fluids Monitor chemistry daily Chronic diastolic congestive heart failure CAD with previous stents Severe pulmonary hypertension Gentle IV fluids for now Monitor on telemetry Denies shortness of breath, chest x-ray does not show overload pattern Atrial fibrillation on chronic anticoagulation Home meds continued Diabetes mellitus type 2insulin-dependent ACHS Accu-Chek, sliding scale insulin Hypertension Hyperlipidemia home medications continued DVT PPX: Eliquis continued Code status: Full code Discharge Plan: Home Plan to discharge in: Greater than 2 days Time Spent Managing Pts Care (In Minutes): 35
--- NOTE | 2024-11-14 11:40 | PN ---
Date of Progress Note: 11/14/2024 Subjective: The patient was admitted to the hospital with acute kidney injury on advanced chronic kidney disease secondary to prerenal. The patient after hydration, kidney function has been improved. Objective: Vital Signs: Blood pressure 117/58, pulse of 98, afebrile. The patient is still on room air. Chest: Clear to auscultation. Heart: S1, S2. Systolic murmur. Abdomen: Soft, nontender. Extremities: No edema. Neurologic: Alert. No focality. No tremor. The patient had urine output of 1500. Laboratory Data: Hemoglobin 14.7, sodium 139, potassium 4.9, bicarb 16, BUN 80, creatinine 3.5, GFR of 17, calcium 8.6, phosphorus 3.5, albumin 2.1. Current Medications: The patient on include hydralazine, metoprolol, sodium bicarb 650 t.i.d., IV fluid, melatonin, calcitriol. Assessment And Plan: 1. Acute kidney injury on advanced chronic kidney disease secondary to cardiorenal, poor perfusion ATN secondary to overdiuresis, on the recovery. No hyperkalemia. Mild acidosis. I do not see the need to any renal replacement therapy. The patient started being euvolemic. I am going to go ahead and discontinue IV fluid and we will follow up the patient. 2. Acidosis, possible worsening secondary to IV fluid. I am going to increase sodium bicarb to 1300. 3. Congestive heart failure. No exacerbation. Overdiuresis. Keep holding diuresis. Discontinue IV fluid. 4. Secondary hyperparathyroidism. Continue calcitriol. 5. Diabetes, as by Primary. Time spent examining the patient [id number] reviewing data lab and an audiology placing order discussing the case with the patient discussing the case with the rn team leader including hospitalist and nursing staff more than 55-minute ROBERT/LORNE Voice ID: [id number] Report ID: [id number] SHANTANU
[2024-11-14] MEDS: SODIUM BICARB 325 MG TAB PO SCH (13:23)
[2024-11-14] MEDS: HYDROCODONE/APAP 5/325 MG TAB PO PRN (15:32)
--- NOTE | 2024-11-14 20:11 | RAD REPORT ---
EXAMINATION: US Lower Extremity Arterial Bilat CLINICAL INDICATION: Male, 74 years old. [facility] MAIN LE changes, weak pulses TECHNIQUE: Arterial duplex ultrasound of the bilateral lower extremities, with real-time, duplex, and spectral flow Doppler evaluation. COMPARISON: 05/07/2024 FINDINGS: Brachial artery systolic pressure is symmetric bilaterally. Grayscale: Grayscale: Mild to moderate plaque. Right lower extremity: The SMALL BUSINESS REPRESENTATIVE through DPA arteries are patent, with monophasic waveforms. Blunted upstroke along the right dorsalis pedis and posterior tibial arteries. Patent metallic stent along the mid right superficial femoral artery. Left lower extremity: The [employer] BUSINESS REPRESENTATIVE through DPA arteries are patent, with monophasic waveforms. Blunted upstroke along the left dorsalis pedis and posterior tibial arteries. IMPRESSION: There is symmetric bilateral peripheral vascular disease more pronounced distally. No evidence of art erial occlusion.
[2024-11-15 06:18] LABS: Absolute Eosinophils 0.1 K/uL (0-0.5); Absolute Lymphocytes (CBC) 0.9 K/uL (0.7-4.9); Absolute Monocytes 1.4 K/uL (0.1-1.3); Absolute Neutrophil 13.8 K/uL (1.8-8.0); Basophils % 0.2 % (0-1.3); Eosinophils % 0.7 % (0-4.4); Hemoglobin 16.2 g/dL (13.6-17.9); Lymphocytes % 5.4 % (15.3-44.8); MCH 26.7 pg (27.0-35.0); MCHC 31.1 g/dL (32.0-36.0); MCV 85.8 fL (80-100); MPV 8.1 fL (7.6-11.3); Monocytes % 8.8 % (3.3-12.3); Neutrophils % 84.9 % (41.7-73.7); Platelets 307 thou/uL (152-406); RBC Red Blood Cell Count 6.06 M/uL (4.33-5.43); Red Cell Distribution Width 17.1 % (12.1-15.2)
[2024-11-15 06:54] LABS: Albumin 2.2 g/dL (3.4-5.0); Albumin/Globulin Ratio 0.4 (1.1-1.8); Anion Gap 16.4 mEq/L (5.0-15.0); Bilirubin Total 0.8 mg/dL (0.2-1.0); Magnesium 2.6 mg/dL (1.6-2.4); Phosphorus 3.6 mg/dL (2.5-4.9); Potassium 5.4 mEq/L (3.5-5.1); Protein, Total 8.2 g/dL (6.4-8.2)
[2024-11-15] MEDS: MUPIROCIN 2% OINT 22GM TUBE TOP SCH (09:20)
[2024-11-15] MEDS: FLUOCINONIDE 0.05% CREAM 30GM TOP SCH (09:20)
--- NOTE | 2024-11-15 10:02 | P.PN ---
Date of Service: 11/15/24 Subjective: no acute events overnight renal function stable from yesterday WBCs elevated today temp 99 as well ROS: 10 point ROS as noted above, otherwise negative Physical exam GEN: Alert, oriented, NAD HEENT: Normal conjunctiva, sclera anicteric CV: Regular rate and rhythm, PAULA LE edmea with rash/ulceration Pulm: Nonlabored respirations on room air ABD: Soft, nontender, nondistended MSK: No joint tenderness Integumentary: No rashes Neuro: Normal speech, normal affect Vitals reviewed Assessment: KAITLIN on CKD 4 with hyperkalemia/uremia Metabolic encephalopathy secondary to above Chronic diastolic congestive heart failure CAD with previous stents Severe pulmonary hypertension Atrial fibrillation on chronic anticoagulation Diabetes mellitus type 2insulin-dependent Hypertension Hyperlipidemia Plan: KAITLIN on CKD 4 with hyperkalemia/uremia Metabolic encephalopathy secondary to above Nephrology consulted and following Renal function Stable Renal ultrasound without hydronephrosis Monitor chemistry daily CPK elevated today, WBC also up Will obtain CXR, monitor closely for sings of infection Patient denies any specific complaints, will also obtain procal Monitor for fevers Continue PT Chronic diastolic congestive heart failure CAD with previous stents Severe pulmonary hypertension Monitor on telemetry Denies shortness of breath, chest x-ray does not show overload pattern Atrial fibrillation on chronic anticoagulation Home meds continued Diabetes mellitus type 2insulin-dependent ACHS Accu-Chek, sliding scale insulin Hypertension Hyperlipidemia home medications continued DVT PPX: Eliquis continued Code status: Full code Discharge Plan: Home Plan to discharge in: Greater than 2 days Time Spent Managing Pts Care (In Minutes): 35 <Karlos Khan - Last Filed: 11/15/24 10:00> Chart has been reviewed. Events of the last 24 hours have been noted. Case discussed with INES. I performed a substantial part of the MDM during this patient's care today. I personally made or approved the documented management plan and acknowledge its risk of complications. I agree with the findings and documentation provided in the INES's note. Patient was admitted for worsening mentation. Patient still very lethargic. Patient has declined quite substantially. His lower extremities appear to have deep wounds. His was at bedside and she states she has declined crisis potentially as well. He does not want to have hemodialysis. He does not want really aggressive care at this point. However, if he continues to decline his long-term prognosis is very poor. Continue with medical management at this time and his renal function is slowly improving. However, do not expect significant improvement over the course of his life. Will get physical therapy involvement and will continue with wound care. Continue monitoring renal function closely. <Joel Garrett - Last Filed: 11/17/24 06:07>
[2024-11-15] MEDS: SODIUM ZIRCONIUM CYCLOSILICATE 10 GM/PKT PO ONE (11:18)
--- NOTE | 2024-11-15 12:49 | RAD REPORT ---
EXAMINATION: ONE VIEW CHEST XR CLINICAL INDICATION: Male, 74 years old.,leukocytosis, low grade fevers TECHNIQUE: Frontal chest projection is submitted. Examination is limited by patient positioning and t echnique. COMPARISON: 11/12/2024 FINDINGS: Retrocardiac patchy opacification. Mild left costophrenic angle blunting. Mild central interstitial p rominence. No pneumothorax or sizable effusion. Stable mild cardiomegaly. Mediastinal contours are unremarkable. IMPRESSION: Left retrocardiac opacities could reflect atelectasis or early pneumonitis. Mild central interstitial prominence may reflect central congestion or mild CHF.
[2024-11-15] MEDS ORDERED: ACETAMINOPHEN 325 MG TABLET PO PRN (15:00)
[2024-11-15] MEDS: D5W 1,000 ML with NA BICARB 8.4% 50 MEQ IV SCH (16:18)
--- NOTE | 2024-11-16 00:53 | PN ---
Date of Progress Note: 11/15/2024 Chief Complaint: Acute kidney injury on advanced chronic kidney disease. Subjective: The patient developed prerenal azotemia. He has nonoliguric urine output. Renal functi on has not improved significantly. He is treated with IV fluids for acute kidney injury. He was fou nd to have metabolic acidosis and is on IV fluids with bicarbonate additives as well as bicarbonate t ablet. The patient was found to have hyperkalemia and received Lokelma today. Review of Systems: Patient is lethargic. He denies complaints. Physical Examination: Lungs: Clear to auscultation bilaterally. Heart: S1, S2. 2/6 systolic murmur at left lower sternal border. Abdomen: Soft, benign, nontender. Extremities: No edema. Neurologic: No tremor. Laboratory Data: Sodium 139, potassium 4.9, bicarbonate 16, BUN 80, creatinine 3.5, calcium 8.6, beth sphorus 3.5, albumin 2.1. Impression And Plan: 1. The patient has multiple medical problems. He is bedbound and he has malnutrition and failure to thrive. He developed acute kidney injury on advanced chronic kidney disease due to cardiorenal syndr ome as well as due to ATN secondary to over-diuresis, and at this point, diuretic is on hold. There is no improvement of renal function. The patient may need to start hemodialysis if renal function do es not improve. 2. Mild metabolic acidosis. Bicarbonate is improving with IV drip and sodium bicarbonate. 3. Hyperkalemia persistent, although responding to treatment. Continue Lokelma. Patient may need to start hemodialysis during this admission. 4. Congestive heart failure. Currently, patient is not on diuretic due to over-diuresis and acute ki dney injury. Patient does not require diuretic at this point. IV fluids were stopped. 5. Secondary hyperparathyroidism. Continue calcitriol. EB/MODL Voice ID: [id number] Report ID: [id number]
[2024-11-16] MEDS: Oxycodone HCl/Acetaminophen 5/325 MG TAB PO PRN (02:59)
[2024-11-16] MEDS: METOPROLOL TARTRATE 5 MG/5 ML INJ IV STA ×3 (08:07→10:18)
[2024-11-16 08:30] LABS: Absolute Basophils 0.1 K/uL (0-0.5); Absolute Eosinophils 0.4 K/uL (0-0.5); Absolute Lymphocytes (CBC) 1.1 K/uL (0.7-4.9); Absolute Neutrophil 9.8 K/uL (1.8-8.0); Basophils % 0.4 % (0-1.3); Eosinophils % 2.9 % (0-4.4); Hematocrit 42.8 % (39.6-49.0); Hemoglobin 13.1 g/dL (13.6-17.9); Lymphocytes % 9.1 % (15.3-44.8); MCH 26.7 pg (27.0-35.0); MCHC 30.6 g/dL (32.0-36.0); MCV 87.4 fL (80-100); MPV 8.4 fL (7.6-11.3); Monocytes % 8.1 % (3.3-12.3); Neutrophils % 79.5 % (41.7-73.7); Nucleated Red Blood Cells % 0.2 % (0-0); Platelets 244 thou/uL (152-406); Red Cell Distribution Width 17.5 % (12.1-15.2)
[2024-11-16 11:38] LABS: Albumin/Globulin Ratio 0.3 (1.1-1.8); Anion Gap 11.5 mEq/L (5.0-15.0); Bilirubin Total 0.4 mg/dL (0.2-1.0); Globulin 5.8 g/dL (2.3-3.5); Magnesium 2.6 mg/dL (1.6-2.4); Phosphorus 4.2 mg/dL (2.5-4.9); Potassium 4.5 mEq/L (3.5-5.1); Protein, Total 7.8 g/dL (6.4-8.2)
--- NOTE | 2024-11-16 11:41 | P.PN ---
Date of Service: 11/16/24 Subjective: no acute events overnight Pending chemistry in this morning still Has been in A-fib RVR this morning Still very weak, more somnolent Did receive dose of oxycodone overnight ROS: 10 point ROS as noted above, otherwise negative Physical exam GEN: Alert, oriented, NAD HEENT: Normal conjunctiva, sclera anicteric CV: A-fib rate 140s PAULA LE edmea with rash/ulceration Pulm: Nonlabored respirations on room air ABD: Soft, nontender, nondistended MSK: No joint tenderness Integumentary: No rashes Neuro: Normal speech, normal affect Vitals reviewed Assessment: KAITLIN on CKD 4 with hyperkalemia/uremia Metabolic encephalopathy secondary to above Chronic diastolic congestive heart failure CAD with previous stents Severe pulmonary hypertension Atrial fibrillation on chronic anticoagulation Diabetes mellitus type 2insulin-dependent Hypertension Hyperlipidemia Plan: KAITLIN on CKD 4 with hyperkalemia/uremia Metabolic encephalopathy secondary to above Nephrology consulted and following Renal function Stable Renal ultrasound without hydronephrosis Monitor chemistry daily White blood cell improved from yesterday No clear pneumonia Patient denies any specific complaints, will also obtain procal-not significantly elevated Monitor for fevers Continue PT Chronic diastolic congestive heart failure CAD with previous stents Severe pulmonary hypertension Monitor on telemetry Denies shortness of breath, chest x-ray does not show overload pattern Atrial fibrillation on chronic anticoagulation with rapid ventricular response Discussed with cardiology, will bolus and drip amiodarone Continue metoprolol Plan to transition to oral amiodarone tomorrow Diabetes mellitus type 2insulin-dependent ACHS Accu-Chek, sliding scale insulin Hypertension Hyperlipidemia home medications continued DVT PPX: Eliquis continued Code status: Full code Discharge Plan: Home Plan to discharge in: Greater than 2 days Time Spent Managing Pts Care (In Minutes): 35 <Karlos Khan - Last Filed: 11/16/24 11:37> Chart has been reviewed. Events of the last 24 hours have been noted. Case dis cussed with [facility]. I performed a substantial part of the MDM during this patient's care today. I personally made or approved the documented management plan and acknowledge its risk of complications. I agree with the findings and documentation provided in the [facility]'s note. Patient was admitted for worsening mentation. Patient has declined quite substantially from when I saw him last a year ago. His lower extremities appear to have deep wounds. His was at bedside and she states she has declined as well. He does not want to have hemodialysis. He does not want aggressive surgical intervention at this point. However, if he continues to decline his long-term prognosis is very poor. Continue with medical management at this time and his renal function is slowly improving. However, do not expect significant improvement over the course of his life. Continue monitoring renal function closely. Patient also went to A-fib RVR and after speaking with cardiology we decided to proceed with amiodarone drip. Will keep patient on the floor and continue to monitor. He is actually much more awake and alert today. He appears to be much more engaging. Will get physical therapy to work with him as well on Monday and hopefully he continues to have improvement. <Joel Garrett - Last Filed: 11/17/24 06:10>
[2024-11-16] MEDS: AMIODARONE HCL 150 MG in D5W 100 ML IV STA (12:04)
[2024-11-16] MEDS: AMIODARONE HCL 900 MG in Dextrose 5%-Water 482 ML IV SCH (13:02)
[2024-11-17] MEDS: NA CHLORIDE 0.9% 500 ML IV ONE (03:51)
--- NOTE | 2024-11-17 04:34 | PN ---
Date of Progress Note: 11/16/2024 Subjective: Acute kidney injury on advanced chronic kidney disease. Patient developed prerenal azot emia. He has nonoliguric urine output. Renal function has not improved significantly over the last few days. He has been treated with IV fluids for acute kidney injury. P.o. intake is gradually impr oving. The patient was cleared and he was started on IV fluids with bicarbonate in a full advice. P corrie was found to have metabolic acidosis and he was started on IV fluids with bicarbonate __ as well as bicarbonate tablet. The patient was found to have hyperkalemia and received Lokelma ye sterday. Review of Systems: Denies chest pain or palpations. Physical Examination: Lungs: Clear to auscultation bilaterally. Heart: S1, S2 Abdomen: Soft, benign. Extremities: No edema. Impression And Plan: 1. The patient has multiple medical problems. He has malnutrition. He is bed-bound and he has failu re to thrive. He developed acute on advanced chronic kidney disease. He has cardiorenal syndrome as well as ATN secondary to overdiuresis and complicated prerenal azotemia. There is no significant im provement of the renal function. Patient may need to start hemodialysis if renal function does not i mprove over next few days. 2. Mild metabolic acidosis. Monitor renal panel. Adjust treatment. 3. Hyperkalemia persistent. Patient will continue Lokelma. 4. Congestive heart failure. Diuretic on hold due to acute kidney injury. 5. Secondary hyperparathyroidism. Continue calcitriol. EB/MODL Voice ID: [id number] Report ID: [id number]
[2024-11-17 05:46] LABS: Hematocrit 41.6 % (39.6-49.0); Hemoglobin 13.1 g/dL (13.6-17.9); MCH 26.8 pg (27.0-35.0); MCHC 31.5 g/dL (32.0-36.0); MCV 85.1 fL (80-100); MPV 8.3 fL (7.6-11.3); Platelets 230 thou/uL (152-406); RBC Red Blood Cell Count 4.88 M/uL (4.33-5.43); Red Cell Distribution Width 16.8 % (12.1-15.2)
[2024-11-17 06:03] LABS: Albumin 1.8 g/dL (3.4-5.0); Albumin/Globulin Ratio 0.3 (1.1-1.8); Anion Gap 10.6 mEq/L (5.0-15.0); Bilirubin Total 0.4 mg/dL (0.2-1.0); Globulin 5.3 g/dL (2.3-3.5); Phosphorus 4.1 mg/dL (2.5-4.9); Potassium 4.6 mEq/L (3.5-5.1); Protein, Total 7.1 g/dL (6.4-8.2)
--- NOTE | 2024-11-17 08:03 | P.PN ---
Date of Service: 11/17/24 Subjective: feeling better today in sinus rhythm, HR 80-90s no acute events overnight appetite improving ROS: 10 point ROS as noted above, otherwise negative Physical Exam: GEN: Alert, oriented, NAD CV: Regular rate and rhythm, no edema Pulm: Nonlabored respirations on room air, clear bilaterally ABD: soft, nontender, nondistended Integumentary: legs wrapped Neuro: Normal speech, normal affect Problem List: KAITLIN on CKD 4 with hyperkalemia/uremia Metabolic encephalopathy secondary to above Chronic diastolic congestive heart failure CAD with previous stents Severe pulmonary hypertension Atrial fibrillation on chronic anticoagulation Diabetes mellitus type 2insulin-dependent Hypertension Hyperlipidemia KAITLIN on CKD 4 with hyperkalemia/uremia Metabolic encephalopathy secondary to above Nephrology is following Renal u/s (11/12): no hydro. echogenic renal cortex bilaterally. He has expressed not wanting hemodialysis. He does not want aggressive surgical intervention at this point. Continue medical management, physical therapy Daily Labs. Renal function stable. CPK improving. 24hr urine collection minimal to no urine ouptut overnight. bladder scan with 215ml recheck bladder scan this morning Chronic diastolic congestive heart failure CAD with previous stents Severe pulmonary hypertension CXR (11/15): Left retrocardiac opacities could reflect atelectasis or early pneu monitis. Mild central interstitial prominence may reflect central congestion or mild CHF Prior echo (08/25/24): 55-60% EF, mild MR/TR, heavily calcified aortic valve with likely moderate aortic stenosis, severe pulmonary hypertension WBC improving. Pro-rafael normal. No clear pneumonia. Monitor for fevers. Monitor on telemetry Denies shortness of breath Atrial fibrillation on chronic anticoagulation with rapid ventricular response Cardiology consulted s/p amio drip (11/16-11/17); transition to oral amio 200 mg BID (11/17) cardiology recommending eliquis 2.5 mg BID continue oral amio, metoprolol IDDM2 ACHS Accu-Chek, SSI Hypertension Hyperlipidemia confirm home meds, restart as appropriate VTE: home eliquis Code: Full Dispo: Home, ~1-2 days Time Spent Managing Pts Care (In Minutes): 55
[2024-11-17] MEDS: AMIODARONE HCL 200 MG TAB PO SCH (11:02)
--- NOTE | 2024-11-17 13:05 | P.CNS ---
Date of Consult: 11/17/24 Chief Complaint: KAITLIN with hyperkalemia History of Present Illness: Patient with PMH of atrial fibrillation admitted for KAITLIN, cardiology were consulted as patient went into RVR, patient denies any cardiac symptoms. except for palpitations. Allergies Penicillins Adverse Reaction (Verified 01/24/23 22:00) Hives Home medications list reviewed: Yes Home Medications: Apixaban [Eliquis *] 5 mg PO BID 01/30/24 Ascorbic Acid [Vitamin C] 500 mg PO DAILY 01/30/24 Aspirin [Aspirin EC] 81 mg PO DAILY 01/30/24 Atorvastatin Calcium [Lipitor*] 80 mg PO BEDTIME 01/30/24 Cyanocobalamin (Vitamin B-12) [Vitamin B-12] 1,000 mcg PO DAILY 01/30/24 Empagliflozin [Jardiance] 25 mg PO DAILY 01/30/24 Ferrous Sulfate 324 mg PO DAILY 01/30/24 Sennosides [Senna] 8.6 mg PO DAILY 01/30/24 Ergocalciferol (Vitamin D2) [Vitamin D2] 50,000 unit PO EVERY 7TH DAY 05/09/24 Insulin Glargine-Yfgn 25 unit SQ DAILY 05/09/24 Melatonin 5 mg PO BEDTIME 05/09/24 Metoprolol Succinate [Toprol Xl*] 50 mg PO BEDTIME 05/09/24 Gabapentin [Neurontin*] 100 mg PO TID #90 cap 05/10/24 Vits A and D/White Pet/Lanolin [A and D Ointment] 1 laquita TP BID #1 tube 05/10/24 Furosemide [Lasix*] 40 mg PO DAILY 30 Days #30 tab 08/24/24 Hydralazine [Apresoline*] 25 mg PO TID 30 Days #90 tab 08/24/24 Sildenafil Citrate [Revatio*] 20 mg PO BID 30 Days #60 tab 08/24/24 - Past Medical/Surgical History Diabetic: Yes -: hypertension -: hyperlipidemia -: Atrial fibrillation -: IDDM -: Coronary artery disease -: Aortic stenosis -: CHF-diastolic -: Severe pulmonary hypertension -: CKD 4 -: Cardiac Catheterization with stent placement -: Right leg surgery Psychosocial/ Personal History: Patient is , lives at home with family - Family History Brother Medical History: Heart disease, Hypertension - Social History Smoking Status: Former smoker Alcohol use: No CD- Drugs: No Caffeine use: No Place of Residence: Home Review of Systems 10-point ROS is otherwise unremarkable Physical Examination Temp Pulse Resp BP Pulse Ox 98.0 F 96 H 17 140/74 91 11/17/24 12:00 11/17/24 12:00 11/17/24 12:00 11/17/24 12:00 11/17/24 12:00 General: Alert, In no apparent distress HEENT: Atraumatic, PERRLA, Mucous membr. moist/pink, EOMI, Sclerae nonicteric Neck: Supple, 2+ carotid pulse no bruit, No LAD, Without JVD or thyroid abnormality Respiratory: Clear to auscultation bilaterally, Normal air movement Cardiovascular: Regular rate/rhythm, Normal S1 S2 Gastrointestinal: Normal bowel sounds, No tenderness Musculoskeletal: No tenderness Integumentary: No rashes Neurological: Normal gait, Normal speech, Normal tone, Normal affect Lymphatics: No axilla or inguinal lymphadenopathy - Problems (1) Afib Current Visit: No Status: Chronic Plan: Patient converted into sinus rhythm on amiodarone drip stop drip and start amiodarone 200 mg po BID continue Eliquis 2.5 mg po BID outpatient follow up with cardiology. Qualifiers:
[2024-11-17] MEDS: HYDROCODONE/APAP 5/325 MG TAB PO ONE (20:27)
--- NOTE | 2024-11-17 22:55 | PN ---
Date of Progress Note: 11/17/2024 Chief Complaint: Acute kidney injury on advanced chronic kidney disease. The patient has congestive heart failure. The patient developed prerenal azotemia, nonoliguric ATN. Subjective: The patients denies complaints. P.o. intake is improving. He was started on bicarbonat e drip for treatment of metabolic acidosis and responded to treatment. For hyperkalemia, he received Lokelma. Review of Systems: Denies chest pain, palpitations. Physical Examination: Lungs: Diminished breath sounds at bases. Heart: S1, S2. Abdomen: Soft. Extremities: No edema. Impression And Plan: 1. The patient has multiple medical problems. He has history of malnutrition and failure to thrive. The patient is bedbound. He developed acute on advanced chronic kidney disease. He has cardiorenal syndrome as well as acute tubular necrosis secondary to overdiuresis and complicated prerenal azotem ia. There is no significant improvement of renal function. The patient may need to start hemodialys is during this admission. 2. Metabolic acidosis. Monitor renal panel. Adjust treatment. 3. Hyperkalemia, resolved. The patient will continue Lokelma as needed. 4. Congestive heart failure. Diuretic is on hold due to acute kidney injury. Plan is to resume maintenance diuretics. 5. Secondary hyperparathyroidism. Continue calcitriol. EB/MODL Voice ID: [id number] Report ID: [id number]
[2024-11-18 05:51] LABS: Hematocrit 41.4 % (39.6-49.0); Hemoglobin 13.3 g/dL (13.6-17.9); MCH 27.3 pg (27.0-35.0); MCHC 32.2 g/dL (32.0-36.0); MCV 84.9 fL (80-100); MPV 8.2 fL (7.6-11.3); Platelets 274 thou/uL (152-406); RBC Red Blood Cell Count 4.87 M/uL (4.33-5.43); Red Cell Distribution Width 16.8 % (12.1-15.2)
[2024-11-18 06:17] LABS: Albumin 1.9 g/dL (3.4-5.0); Anion Gap 11.2 mEq/L (5.0-15.0); Bilirubin Total 0.3 mg/dL (0.2-1.0); Globulin 5.1 g/dL (2.3-3.5); Phosphorus 3.9 mg/dL (2.5-4.9); Potassium 4.2 mEq/L (3.5-5.1)
[2024-11-18 06:18] LABS: Albumin/Globulin Ratio 0.4 (1.1-1.8)
[2024-11-18] MEDS: APIXABAN 2.5 MG TABLET PO SCH (09:42)
[2024-11-18] MEDS: NA CHLORIDE 0.9% 1,000 ML IV SCH (09:44)
--- NOTE | 2024-11-18 11:45 | P.PN ---
Subjective Date of Service: 11/18/24 Chief Complaint: KAITLIN with hyperkalemia Subjective: No new changes, No C/O voiced, Tolerating diet, Ambulating, Improving Review of Systems 10-point ROS is otherwise unremarkable Physical Examination - Vital Signs Temperature: 97.6 F Blood Pressure: 127/59 Pulse: 67 Respirations: 14 Pulse Ox (%): 94 - Physical Exam General: Alert, In no apparent distress HEENT: Atraumatic, PERRLA, EOMI Neck: Supple, JVD not distended Respiratory: Clear to auscultation bilaterally, Normal air movement Cardiovascular: Regular rate/rhythm, Normal S1 S2 Gastrointestinal: Normal bowel sounds, No tenderness Musculoskeletal: No tenderness Integumentary: No rashes Neurological: Normal speech, Normal tone, Normal affect Lymphatics: No axilla or inguinal lymphadenopathy - Studies Microbiology Data (last 24 hrs): 11/12/24 11:50 Blood - Blood Aerobic Blood Culture - Final No growth in 5 days. 11/12/24 11:50 Blood - Blood Anaerobic Blood Culture - Final No growth in 5 days. 11/12/24 11:40 Blood - Blood Aerobic Blood Culture - Final No growth in 5 days. 11/12/24 11:40 Blood - Blood Anaerobic Blood Culture - Final No growth in 5 days. Medications List Reviewed: Yes Assessment And Plan - Current Problems (Diagnosis) (1) Afib Current Visit: No Status: Chronic Plan: Patient tele shows sinus rhythm continue amiodarone 200 mg po BID continue Eliquis 2.5 mg po BID outpatient follow up with cardiology. Qualifiers:
--- NOTE | 2024-11-18 12:56 | P.PN ---
Date of Service: 11/18/24 Subjective: in sinus rhythm appetite improving had BM today denies SOB ROS: 10 point ROS as noted above, otherwise negative Physical Exam: GEN: Alert, oriented, NAD CV: Regular rate and rhythm, no edema Pulm: Nonlabored respirations on room air, clear bilaterally ABD: soft, nontender, nondistended Integumentary: legs wrapped Neuro: Normal speech, normal affect Problem List: KAITLIN on CKD 4 with hyperkalemia/uremia Metabolic encephalopathy secondary to above Chronic diastolic congestive heart failure CAD with previous stents Severe pulmonary hypertension Atrial fibrillation on chronic anticoagulation Diabetes mellitus type 2insulin-dependent Hypertension Hyperlipidemia KAITLIN on CKD 4 with hyperkalemia/uremia Metabolic encephalopathy secondary to above Nephrology is following Renal u/s (11/12): no hydro. echogenic renal cortex bilaterally. He has expressed not wanting hemodialysis. He does not want aggressive surgical intervention at this point. Continue medical management, physical therapy Daily Labs. Renal function stable. CPK improving. 24hr urine collection ~950 ml output overnight Chronic diastolic congestive heart failure CAD with previous stents Severe pulmonary hypertension CXR (11/15): Left retrocardiac opacities could reflect atelectasis or early pneumonitis. Mild central interstitial prominence may reflect central congestion or mild CHF Prior echo (08/25/24): 55-60% EF, mild MR/TR, heavily calcified aortic valve with likely moderate aortic stenosis, severe pulmonary hypertension WBC improving. Pro-rafael normal. No clear pneumonia. Monitor for fevers. Monitor on telemetry Denies shortness of breath Atrial fibrillation on chronic anticoagulation with rapid ventricular response Cardiology consulted s/p amio drip (11/16-11/17); transition to oral amio 200 mg BID (11/17) cardiology recommending eliquis 2.5 mg BID continue oral amio, metoprolol IDDM2 ACHS Accu-Chek, SSI Hypertension Hyperlipidemia confirm home meds, restart as appropriate VTE: home eliquis Code: Full Dispo: Home, ~1-2 days Time Spent Managing Pts Care (In Minutes): 55
--- NOTE | 2024-11-18 13:13 | ECHO ---
HEIGHT: 6 ft 0 in WEIGHT: 173 lb 0 oz DATE OF STUDY: 11/18/[address]: Karlos Khan NP 2-DIMENSIONAL: YES M.MODE: YES DOPPLER: YES COLOR FLOW: YES TDS: PORTABLE: YES DEFINITY: BUBBLE STUDY: DIAGNOSIS: ATRIAL FIBRILLATION WITH RAPID VENTRICULAR RESPONSE CARDIAC HISTORY: CATHERIZATION: YES SURGERY: NO PROSTHETIC VALVE: NO PACEMAKER: NO MEASUREMENTS (cm) DIASTOLIC (NORMALS) SYSTOLIC (NORMALS) IVSd 1.5 (0.6-1.2) LA Diam 3.6 (1.9-4.0) LVEF 55% LVIDd 3.6 (3.5-5.7) LVIDs 2.6 (2.0-3.5) %FS 27% LVPWd 1.5 (0.6-1.2) Ao Diam 3.1 (2.0-3.7) 2 DIMENSIONAL ASSESSMENT: RIGHT ATRIUM: NORMAL LEFT ATRIUM: MODERATELY DILATED RIGHT VENTRICLE: NORMAL LEFT VENTRICLE: LEFT VENTRICULAR HYPERTROPHY TRICUSPID VALVE: MODERATE TRICUSPID REGURGITATION MITRAL VALVE: CALCIFIED PULMONIC VALVE: NORMAL AORTIC VALVE: SEVERELY CALCIFIED PERICARDIAL EFFUSION: NONE AORTIC ROOT: LEFT VENTRICULAR WALL MOTION: NORMAL DOPPLER/COLOR FLOW: GRADE III DIASTOLIC DYSFUNCTION COMMENTS: 1. NORMAL LEFT VENTRICULAR SYSTOLIC FUNCTION, EJECTION FRACTION 55%, NORMAL WALL MOTION 2. GRADE II DIASTOLIC DYSFUNCTION 3. SEVERELY CALCIFIED AORTIC VALVE WITH MODERATE AORTIC STENOSIS 4. SEVERE PULMONARY HYPERTENSION (RIGHT VENTRICULAR SYSTOLIC PRESSURE GREATER THAN 60 mmHg) TECHNOLOGIST: ELIZA CANALES
[2024-11-18] MEDS: CODEINE 30MG/APAP 300MG TAB PO PRN (14:36)
--- NOTE | 2024-11-19 00:15 | PN ---
Date of Progress Note: 11/18/2024 Chief Complaint: Acute kidney injury on advanced chronic kidney disease. Subjective: The patient has congestive heart failure exacerbation. He was on Lasix. He developed p rerenal azotemia and nonoliguric ATN. Lasix is currently on hold, and the patient is started on mild hydration with IV fluids. Review of Systems: Denies chest pain, palpitations. He denies nausea, vomiting. Physical Examination: Lungs: Diminished breath sounds at bases. Heart: S1, S2. Abdomen: Soft. Extremities: Minimal peripheral edema. Impression And Plan: 1. Acute on chronic congestive heart failure. The patient was treated with Lasix. He developed prog ressively worse hyperazotemia and started on mild IV fluids for hydration. The patient refused hemod ialysis. 2. Metabolic acidosis. Monitor. Adjust treatment as needed. 3. Hyperkalemia, resolved. The patient was treated with Lokelma. 4. Congestive heart failure. Diuretic is on hold. Continue low-sodium diet. 5. For acute kidney injury, the patient is started on mild IV fluids for gentle hydration. 6. Secondary hyperparathyroidism. Continue calcitriol. EB/MODL Voice ID: [id number] Report ID: [id number]
[2024-11-19 04:40] LABS: Hematocrit 37.9 % (39.6-49.0); Hemoglobin 12.4 g/dL (13.6-17.9); MCH 27.3 pg (27.0-35.0); MCHC 32.7 g/dL (32.0-36.0); MCV 83.6 fL (80-100); MPV 8.3 fL (7.6-11.3); Platelets 262 thou/uL (152-406); RBC Red Blood Cell Count 4.53 M/uL (4.33-5.43); Red Cell Distribution Width 16.9 % (12.1-15.2)
[2024-11-19 05:20] LABS: Albumin 1.7 g/dL (3.4-5.0); Albumin/Globulin Ratio 0.4 (1.1-1.8); Anion Gap 11.2 mEq/L (5.0-15.0); Bilirubin Total 0.3 mg/dL (0.2-1.0); Globulin 4.7 g/dL (2.3-3.5); Potassium 4.2 mEq/L (3.5-5.1); Protein, Total 6.4 g/dL (6.4-8.2)
[2024-11-19] MEDS: HYDRALAZINE HCL 20 MG/ML VIAL IV PRN (12:35)
[2024-11-19 14:07] LABS: Abnormal Protein Band 1 REPORT; Alpha-1-Globulins 0.5 g/dL (0.2-0.3); Alpha-2-Globulins 0.8 g/dL (0.5-0.9); Beta 1 Globulin 0.4 g/dL (0.4-0.6); Gamma Globulins 1.8 g/dL (0.8-1.7); INTERPRETATION REPORT; Total Protein 6.2 g/dL (6.1-8.1)
[2024-11-19] MEDS: SENOSIDES 8.6 MG TAB PO SCH (17:07)
[2024-11-19] MEDS: ASCORBIC ACID 500 MG TABLET PO SCH (17:07)
[2024-11-19] MEDS: GABAPENTIN 100 MG CAP PO SCH (17:07)
[2024-11-19] MEDS: CYANOCOBALAMIN 1,000 MCG TAB PO SCH (17:07)
--- NOTE | 2024-11-19 17:24 | P.PN ---
Subjective Date of Service: 11/19/24 Chief Complaint: KAITLIN with hyperkalemia Patient denies any complaint and requesting to go home. He is not confused. Serum creatinine trended down. Physical Examination - Vital Signs Temperature: 97.9 F Blood Pressure: 158/70 Pulse: 68 Respirations: 18 Pulse Ox (%): 99 - Studies Medications List Reviewed: Yes Assessment And Plan - Plan Physical Exam: GEN: Alert, oriented, NAD CV: Regular rate and rhythm, no edema Pulm: Nonlabored respirations on room air, clear bilaterally ABD: soft, nontender, nondistended Integumentary: legs wrapped Neuro: Normal speech, normal affect Problem List: KAITLIN on CKD 4 with hyperkalemia/uremia Metabolic encephalopathy secondary to above Chronic diastolic congestive heart failure CAD with previous stents Severe pulmonary hypertension Atrial fibrillation on chronic anticoagulation Diabetes mellitus type 2insulin-dependent Hypertension Hyperlipidemia Plan: KAITLIN on CKD 4 with hyperkalemia/uremia Metabolic encephalopathy secondary to above Nephrology is following Renal u/s (11/12): no hydro. echogenic renal cortex bilaterally. He has expressed not wanting hemodialysis. He does not want aggressive surgical intervention at this point. Continue medical management, physical therapy Serum creatinine improving slowly. Chronic diastolic congestive heart failure CAD with previous stents Severe pulmonary hypertension CXR (11/15): Left retrocardiac opacities could reflect atelectasis or early pneumonitis. Mild central interstitial prominence may reflect central congestion or mild CHF Prior echo (08/25/24): 55-60% EF, mild MR/TR, heavily calcified aortic valve with likely moderate aortic stenosis, severe pulmonary hypertension Monitor on telemetry Denies shortness of breath Atrial fibrillation on chronic anticoagulation with rapid ventricular response Cardiology is following s/p amio drip (11/16-11/17); transition to oral amio 200 mg BID (11/17) cardiology recommending eliquis 2.5 mg BID continue oral amio and metoprolol IDDM2 ACHS Accu-Chek, SSI Hypertension Hyperlipidemia Continue home medications. VTE: home eliquis Code: Full Dispo: Home.
[2024-11-19 21:43] LABS: Immunofixation Electrophoresis Normal pattern.
--- NOTE | 2024-11-19 23:56 | PN ---
Date of Progress Note: 11/19/2024 Chief Complaint: Acute kidney injury on advanced chronic kidney disease. Subjective: The patient has congestive heart failure. He was treated with Lasix for cardiorenal syn drome and congestive heart failure exacerbation. He developed ATN, prerenal azotemia and mild hydrat ion was started. The patient denies PND or orthopnea. Physical Examination: Lungs: Clear to auscultation bilaterally. Heart: S1, S2. Abdomen: Soft. Extremities: Edema has improved. Impression And Plan: 1. Acute on chronic congestive heart failure with diastolic/systolic dysfunction. The patient was tr eated with Lasix. He developed progressively worse hyperazotemia and was started on mild IV fluids f or hydration. The patient refused hemodialysis. 2. Metabolic acidosis. Monitor and adjust treatment as needed. 3. Hyperkalemia, resolved. The patient was treated with Lokelma. 4. Congestive heart failure, currently diuretic on hold due to worsening of the renal function. 5. Acute kidney injury. The patient was started on mild hydration. Monitor electrolytes and fluid b alance. 6. Secondary hyperparathyroidism. Continue calcitriol. EB/MODL Voice ID: [id number] Report ID: [id number]
[2024-11-20 04:49] LABS: Hematocrit 43.6 % (39.6-49.0); Hemoglobin 13.8 g/dL (13.6-17.9); MCHC 31.8 g/dL (32.0-36.0); MCV 84.9 fL (80-100); MPV 8.2 fL (7.6-11.3); Platelets 278 thou/uL (152-406); RBC Red Blood Cell Count 5.13 M/uL (4.33-5.43); Red Cell Distribution Width 17.1 % (12.1-15.2)
[2024-11-20 05:03] LABS: Albumin 1.8 g/dL (3.4-5.0); Albumin/Globulin Ratio 0.3 (1.1-1.8); Bilirubin Total 0.3 mg/dL (0.2-1.0); Globulin 5.4 g/dL (2.3-3.5); Protein, Total 7.2 g/dL (6.4-8.2)
[2024-11-20] MEDS: ONDANSETRON 4 MG/2 ML VIAL IV PRN (06:00)
[2024-11-20] MEDS: Empagliflozin [Jardiance] 10 MG Tablet *PT OWN MED PO SCH (08:30)
[2024-11-20] MEDS ORDERED: HOME MED 1 EA UNK (Ascorbic Acid [Vitamin C] 500 MG Capsule) PO SCH (09:00)
[2024-11-20] MEDS ORDERED: HOME MED 1 EA UNK (Sennosides [Senna] 8.6 MG Capsule) PO SCH (09:00)
--- NOTE | 2024-11-20 13:38 | P.DS ---
Admission Date: 11/12/24 Discharge Date: 11/23/24 Disposition: ROUTINE DISCHARGE Discharge Condition: FAIR Reason for Admission: KAITLIN with hyperkalemia Brief History of Present Illness: 74-year-old male with history of chronic diastolic congestive heart failure, atrial fibrillation on chronic anticoagulation, severe pulmonary hypertension, CKD 4, insulin-dependent diabetes, hypertension and hyperlipidemia presents to the emergency department with chief complaint of altered mental status and weakness. Family at the bedside report that for the past couple days he has been unable to get out of his chair, a bit confused and generally unwell. 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 Patient was evaluated in the emergency department his labs are significant for a potassium of 5.4 chloride of 113 bicarb 18 BUN 106 creatinine 4.97 BNP 2814 chest x-ray negative for acute findings. Patient does have some lower extremity edema but otherwise does not appear grossly overloaded. Discussed case with nephrology, patient hospitalized for further management. Hospital Course: Problem List: KAITLIN on CKD 4 with hyperkalemia/uremia Metabolic encephalopathy secondary to above Chronic diastolic congestive heart failure CAD with previous stents Severe pulmonary hypertension Atrial fibrillation on chronic anticoagulation Diabetes mellitus type 2insulin-dependent Hypertension Hyperlipidemia Plan: KAITLIN on CKD 4 with hyperkalemia/uremia Metabolic encephalopathy secondary to above Nephrology assisted with management. Renal u/s (11/12): no hydro. echogenic renal cortex bilaterally. Patient declined hemodialysis. He does not want aggressive surgical intervention at this point. Serum creatinine improved Patient cleared for discharge by nephrology. He is prescribed Bumex 1 mg daily and discussion with nephrology Dr. Álvaro Mixon Follow-up with Dr. Mitchell as outpatient. Chronic diastolic congestive heart failure CAD with previous stents Severe pulmonary hypertension CXR (11/15): Left retrocardiac opacities could reflect atelectasis or early pneumonitis. Mild central interstitial prominence may reflect central congestion or mild CHF Prior echo (08/25/24): 55-60% EF, mild MR/TR, heavily calcified aortic valve with likely moderate aortic stenosis, severe pulmonary hypertension Patient prescribed Bumex 1 mg daily for maintenance diuresis. Atrial fibrillation on chronic anticoagulation with rapid ventricular response Cardiology evaluated and assisted with management. s/p amio drip (11/16-11/17); transition to oral amio 200 mg BID (11/17) cardiology recommending eliquis 2.5 mg BID Patient discharged with oral amio and metoprolol and Eliquis. IDDM2 Managed with insulin sliding scale. Patient blood sugar readings were within normal limits without long-acting insulin during the hospital stay. His Semglee insulin is discontinued on discharge Hypertension Hyperlipidemia Continued home medications. Vital Signs/Physical Exam: Temp Pulse Resp BP Pulse Ox 98.1 F 79 12 162/76 H 93 11/20/24 12:00 11/20/24 12:00 11/20/24 12:00 11/20/24 12:00 11/20/24 12:00 General: Alert, In no apparent distress, Oriented x3 HEENT: Mucous membr. moist/pink Neck: JVD not distended Respiratory: Clear to auscultation bilaterally, Normal air movement Cardiovascular: Regular rate/rhythm, Normal S1 S2 Gastrointestinal: Normal bowel sounds, Soft and benign, Non-distended Musculoskeletal: No swelling Integumentary: No cyanosis Neurological: Normal speech, Normal strength at 5/5 x4 extr Laboratory Data at Discharge: WBC 5.50 thou/uL (4.3-10.9) 11/20/24 04:10 Hgb 13.8 g/dL (13.6-17.9) D 11/20/24 04:10 Hct 43.6 % (39.6-49.0) 11/20/24 04:10 Plt Count 278 thou/uL (152-406) 11/20/24 04:10 PT 15.4 SECONDS (9.4-12.5) H 11/12/24 22:26 INR 1.47 11/12/24 22:26 APTT 43.6 SECONDS (24.3-36.9) H 11/12/24 22:26 Sodium 138 mEq/L (136-145) 11/20/24 04:10 Potassium 5.0 mEq/L (3.5-5.1) D 11/20/24 04:10 BUN 62 mg/dL (7-18) H 11/20/24 04:10 Creatinine 3.44 mg/dL (0.70-1.30) H 11/20/24 04:10 Glucose 130 mg/dL (74-106) H 11/20/24 04:10 Uric Acid 10.1 mg/dL (3.5-7.2) H 11/13/24 04:07 Phosphorus 3.9 mg/dL (2.5-4.9) 11/18/24 05:35 Magnesium 2.6 mg/dL (1.6-2.4) H 11/16/24 10:29 Total Bilirubin 0.3 mg/dL (0.2-1.0) 11/20/24 04:10 AST 23 U/L (15-37) 11/20/24 04:10 ALT 29 U/L (16-61) 11/20/24 04:10 Alkaline Phosphatase 54 U/L (45-117) 11/20/24 04:10 Home Medications: Ascorbic Acid [Vitamin C] 500 mg PO DAILY 01/30/24 Aspirin [Aspirin EC] 81 mg PO DAILY 01/30/24 Atorvastatin Calcium [Lipitor*] 80 mg PO BEDTIME 01/30/24 Cyanocobalamin (Vitamin B-12) [Vitamin B-12] 1,000 mcg PO DAILY 01/30/24 Empagliflozin [Jardiance] 25 mg PO DAILY 01/30/24 Ferrous Sulfate 324 mg PO DAILY 01/30/24 Sennosides [Senna] 8.6 mg PO DAILY 01/30/24 Ergocalciferol (Vitamin D2) [Vitamin D2] 50,000 unit PO EVERY 7TH DAY 05/09/24 Melatonin 5 mg PO BEDTIME 05/09/24 Metoprolol Succinate [Toprol Xl*] 50 mg PO BEDTIME 05/09/24 Gabapentin [Neurontin*] 100 mg PO TID #90 cap 05/10/24 Vits A and D/White Pet/Lanolin [A and D Ointment] 1 laquita TP BID #1 tube 05/10/24 Hydralazine [Apresoline*] 25 mg PO TID 30 Days #90 tab 08/24/24 Sildenafil Citrate [Revatio*] 20 mg PO BID 30 Days #60 tab 08/24/24 Amiodarone HCl [Cordarone*] 200 mg PO BID #60 tab 11/20/24 Apixaban [Eliquis *] 2.5 mg PO BID #60 tab 11/20/24 Calcitrol [Rocaltrol*] 0.25 mcg PO Q48H #15 cap 11/20/24 Fluocinonide [Lidex] 1 appl TOP BID #1 tube 11/20/24 Mupirocin Oint [Bactroban 2% Ointment*] 1 appl TOP DAILY #1 tube 11/20/24 Bumetanide [Bumex] 1 mg PO DAILY #30 tab 11/23/24 New Medications: Mupirocin Oint [Bactroban 2% Ointment*] 1 appl TOP DAILY #1 tube Bumetanide [Bumex] 1 mg PO DAILY #30 tab Amiodarone HCl [Cordarone*] 200 mg PO BID #60 tab Apixaban [Eliquis *] 2.5 mg PO BID #60 tab Fluocinonide [Lidex] 1 appl TOP BID #1 tube Calcitrol [Rocaltrol*] 0.25 mcg PO Q48H #15 cap Diet: Renal Activity: Fall precautions Followup: Selena Mitchell MD [ACTIVE - CAN ADMIT] - 1 Week Vanessa Mendoza NP [Primary Care Provider] - 1-2 Weeks Time spent managing pt's care (in minutes): 38
--- NOTE | 2024-11-20 15:17 | P.PN ---
Subjective Date of Service: 11/20/24 Chief Complaint: KAITLIN with hyperkalemia Patient denies any complaint. He is not confused. Physical Examination - Vital Signs Temperature: 98.1 F Blood Pressure: 162/76 Pulse: 79 Respirations: 12 Pulse Ox (%): 93 - Studies Medications List Reviewed: Yes Assessment And Plan - Plan Physical Exam: GEN: Alert, oriented, NAD CV: Regular rate and irregular rhythm, no edema Pulm: Nonlabored respirations on room air, clear bilaterally ABD: soft, nontender, nondistended Neuro: Normal speech, normal affect Problem List: KAITLIN on CKD 4 with hyperkalemia/uremia Metabolic encephalopathy secondary to above Chronic diastolic congestive heart failure CAD with previous stents Severe pulmonary hypertension Atrial fibrillation on chronic anticoagulation Diabetes mellitus type 2insulin-dependent Hypertension Hyperlipidemia Plan: KAITLIN on CKD 4 with hyperkalemia/uremia Metabolic encephalopathy secondary to above Nephrology is following Renal u/s (11/12): no hydro. echogenic renal cortex bilaterally. He has refused hemodialysis. He does not want aggressive surgical intervention at this point. Continue medical management, physical therapy Serum creatinine improving slowly. Chronic diastolic congestive heart failure CAD with previous stents Severe pulmonary hypertension CXR (11/15): Left retrocardiac opacities could reflect atelectasis or early pneumonitis. Mild central interstitial prominence may reflect central congestion or mild CHF Prior echo (08/25/24): 55-60% EF, mild MR/TR, heavily calcified aortic valve with likely moderate aortic stenosis, severe pulmonary hypertension Patient is asymptomatic. Atrial fibrillation on chronic anticoagulation with rapid ventricular response Cardiology is following s/p amio drip (11/16-11/17); transition to oral amio 200 mg BID (11/17) cardiology recommending eliquis 2.5 mg BID continue oral amio and metoprolol IDDM2 ACHS Accu-Chek, SSI Hypertension Hyperlipidemia Continue home medications. 11/20 No major changes from yesterday. Patient seen and evaluated by nephrology Dr. Mitchell. New creatinine baseline suspected. Patient cleared for discharge per Dr. Mitchell. Continue amiodarone and Eliquis for A-fib. He has not been out of bed since admit and according to report patient is somehow ambulatory with a walker. Continue PT. Social service consulted to evaluate for SNF placement. VTE: home eliquis Code: Full Dispo: SNF
--- NOTE | 2024-11-20 15:44 | PN ---
Date of Progress Note: 11/20/2024 Subjective: The patient was admitted to the hospital with acute kidney injury on advanced chronic kidney disease secondary to prerenal. The patient was dehydrated. The patient did not require dialysis yet. Patient had some mild uremic symptoms. Patient is still refusing dialysis. Objective: General: When I saw the patient, patient lying in bed. Vital Signs: Blood pressure 145/66, pulse of 70, afebrile. Chest: Clear to auscultation. Heart: S1, S2. Systolic murmur. Abdomen: Not tender. Extremities: No edema. Neurologic: Alert. No focality. Laboratory Data: Hemoglobin 13.8, sodium 138, potassium 5, bicarb 25, BUN 62, creatinine 3.4, GFR of 18, calcium 8.9. Current Medications: The patient on, include: 1. Eliquis. 2. Aspirin. 3. Hydralazine 25 t.i.d. 4. Metoprolol. 5. Gabapentin. Assessment And Plan: 1. Acute kidney injury on advanced kidney disease, nonoliguric. No hyperkalemia. No significant uremic symptoms. The patient refused dialysis. Euvolemic. I am going to keep holding the diuresis. We will continue to monitor the patient. The patient cleared from the Renal standpoint for discharge planning. Please avoid any TESSA inhibitor or ARB. No diuresis for the time being. 2. Hypertension, controlled. Continue current treatment. 3. Anemia of chronic kidney disease, stable. No need for JEREMIAH. 4. Hyperkalemia, resolved. 5. Fatigue. Decrease gabapentin to once a day. Time spent examining the patient [id number] reviewing data lab and an audiology placing order discussing the case with the patient discussing the case with the produce team member including hospitalist and nursing staff more than 55-minute OSVALDO Voice ID: [id number] Report ID: [id number] SHANTANU
[2024-11-21 04:34] LABS: Absolute Eosinophils 0.2 K/uL (0-0.5); Absolute Lymphocytes (CBC) 1.4 K/uL (0.7-4.9); Absolute Monocytes 1.3 K/uL (0.1-1.3); Absolute Neutrophil 8.1 K/uL (1.8-8.0); Basophils % 0.4 % (0-1.3); Eosinophils % 1.5 % (0-4.4); Hemoglobin 13.4 g/dL (13.6-17.9); Lymphocytes % 12.5 % (15.3-44.8); MCH 26.9 pg (27.0-35.0); MCHC 31.3 g/dL (32.0-36.0); MCV 85.9 fL (80-100); MPV 7.6 fL (7.6-11.3); Monocytes % 11.9 % (3.3-12.3); Neutrophils % 73.7 % (41.7-73.7); Nucleated Red Blood Cells % 0.2 % (0-0); Platelets 311 thou/uL (152-406)
[2024-11-21 04:52] LABS: Anion Gap 12.8 mEq/L (5.0-15.0); Potassium 4.8 mEq/L (3.5-5.1)
--- NOTE | 2024-11-21 07:19 | RAD REPORT ---
EXAM: Chest Single View HISTORY: decreased 02 sats COMPARISON: 11/15/2024 FINDINGS: LUNGS/PLEURA: Interstitial prominence slightly less pronounced. Mild improvement in retrocardiac opac ities. MEDIASTINUM: The mediastinal silhouette is within normal limits. CARDIAC: Stable size and configuration. UPPER ABDOMEN: No significant abnormality. BONES: No acute abnormality. LINES/TUBES/OTHER: N/A IMPRESSION: Mild improvement in aeration of the lungs with decreased but persistent interstitial prominence and s ome clearing of the retrocardiac opacities.
[2024-11-21] MEDS: GABAPENTIN 100 MG CAP PO SCH (09:27)
[2024-11-21 14:18] LABS: Beta Globulin 24 HR Urine 6 %; Creatinine 24 Hour Urine 0.54 g/24 h (0.50-2.15); Gamma Globulin, 24hr Urine 19 %; Protein/Crea Ratio in g 1360 mg/g creat (<100); Urine Albumin 24 Hours 68 %; Urine Alpha-1-Globulin, 24Hr 4 %; Urine Alpha-2-Globulins, 24 Hr 4 %; Urine PEP Abn Protein Band1 REPORT; Urine Total Volume 24 Hours 400 mL
--- NOTE | 2024-11-21 17:41 | P.PN ---
Subjective Date of Service: 11/21/24 Chief Complaint: KAITLIN with hyperkalemia Patient denies any complaint. He is very weak and has difficulty ambulating. Patient is finishing his meals. He was placed on oxygen last night for hypoxia. Physical Examination - Vital Signs Temperature: 97.9 F Blood Pressure: 158/69 Pulse: 72 Respirations: 18 Pulse Ox (%): 92 - Studies Medications List Reviewed: Yes Assessment And Plan - Plan Physical Exam: GEN: Alert, oriented, NAD CV: Regular rate and irregular rhythm, no edema Pulm: Nonlabored respirations on room air, clear bilaterally ABD: soft, nontender, nondistended Neuro: Normal speech, normal affect Problem List: KAITLIN on CKD 4 with hyperkalemia/uremia Metabolic encephalopathy secondary to above Chronic diastolic congestive heart failure CAD with previous stents Severe pulmonary hypertension Atrial fibrillation on chronic anticoagulation Diabetes mellitus type 2insulin-dependent Hypertension Hyperlipidemia Plan: KAITLIN on CKD 4 with hyperkalemia/uremia Metabolic encephalopathy secondary to above Nephrology is following Renal u/s (11/12): no hydro. echogenic renal cortex bilaterally. He has refused hemodialysis. He does not want aggressive surgical intervention at this point. Continue medical management, physical therapy Serum creatinine improving slowly. Chronic diastolic congestive heart failure CAD with previous stents Severe pulmonary hypertension CXR (11/15): Left retrocardiac opacities could reflect atelectasis or early pneumonitis. Mild central interstitial prominence may reflect central congestion or mild CHF Prior echo (08/25/24): 55-60% EF, mild MR/TR, heavily calcified aortic valve with likely moderate aortic stenosis, severe pulmonary hypertension Patient is asymptomatic. Atrial fibrillation on chronic anticoagulation with rapid ventricular response Cardiology is following s/p amio drip (11/16-11/17); transition to oral amio 200 mg BID (11/17) cardiology recommending eliquis 2.5 mg BID continue oral amio and metoprolol IDDM2 ACHS Accu-Chek, SSI Hypertension Hyperlipidemia Continue home medications. 11/20 No major changes from yesterday. Patient seen and evaluated by nephrology Dr. Mitchell. New creatinine baseline suspected. Patient cleared for discharge per Dr. Mitchell. Continue amiodarone and Eliquis for A-fib. He has not been out of bed since admit and according to report patient is somehow ambulatory with a walker. Continue PT. Social service consulted to evaluate for SNF placement. 11/21 Patient is very weak, needs maximal assistance to stand. PT input appreciated. He is not able to ambulate. Check x-ray done this morning shows mild improvement in aeration of the lungs with decreased but persistent interstitial prominence and some clearing of the retrocardiac opacities. Serum creatinine trended up slightly. It appears patient's new baseline is around 3.5. Patient continues to refuse dialysis. He is slated for skilled rehab. VTE: eliquis Code: Full Dispo: SNF
--- NOTE | 2024-11-21 20:01 | PN ---
Date of Progress Note: 11/21/2024 Subjective: The patient was admitted with acute kidney injury secondary to prerenal, dehydration, over diurese. The patient refused dialysis. The patient with still poor intake. IV fluid has been discontinued. Diuresis has been discontinued. Kidney function stabilized. Physical Examination: Vital Signs: Blood pressure 158/69, pulse of 72, afebrile. The patient had good urine output of 500. Chest: Clear to auscultation. Heart: S1, S2. Systolic murmur. Abdomen: Soft, nontender. Extremities: Trace edema. Neurologic: Alert. No focality. Laboratory Data: Hemoglobin 13.4, sodium 141, potassium 4.8, bicarb 22, BUN 64, creatinine 3.7, GFR 16, calcium 8.5. Current Medications: The patient on, include: 1. Amiodarone. 2. Hydralazine 25 t.i.d. 3. Metoprolol. 4. Zofran. 5. Gabapentin. 6. Senokot. 7. Melatonin. Assessment And Plan: 1. Acute kidney injury on advanced chronic kidney disease, mild uremic symptoms. No acidosis or hyperkalemia. I had long discussion with the patient regarding the patient may need renal replacement therapy in the short term and could help his uremic symptoms. The patient still on refusal for the renal replacement therapy. We will continue to monitor. The patient cleared from the Renal standpoint for discharge planning. Keep holding IV fluid. 2. Hypertension, controlled, optimal. Continue current treatment. 3. Hypernatremia, resolved. 4. Hyperkalemia, resolved. 5. Secondary hyperparathyroidism. Continue calcitriol. Time spent examining the patient [id number] reviewing data lab and an audiology placing order discussing the case with the patient discussing the case with the security team lead including hospitalist and nursing staff more than 55-minute OSVALDO Voice ID: [id number] Report ID: [id number] SHANTANU
[2024-11-22 05:21] LABS: Absolute Basophils 0.1 K/uL (0-0.5); Absolute Eosinophils 0.3 K/uL (0-0.5); Absolute Lymphocytes (CBC) 1.1 K/uL (0.7-4.9); Absolute Monocytes 0.9 K/uL (0.1-1.3); Absolute Neutrophil 5.3 K/uL (1.8-8.0); Basophils % 0.7 % (0-1.3); Eosinophils % 3.5 % (0-4.4); Hematocrit 39.7 % (39.6-49.0); Hemoglobin 12.6 g/dL (13.6-17.9); Lymphocytes % 14.3 % (15.3-44.8); MCH 26.8 pg (27.0-35.0); MCHC 31.7 g/dL (32.0-36.0); MCV 84.5 fL (80-100); MPV 7.7 fL (7.6-11.3); Monocytes % 12.1 % (3.3-12.3); Neutrophils % 69.4 % (41.7-73.7); Platelets 292 thou/uL (152-406); Red Cell Distribution Width 17.3 % (12.1-15.2)
[2024-11-22 05:29] LABS: Anion Gap 11.4 mEq/L (5.0-15.0); Potassium 4.4 mEq/L (3.5-5.1)
--- NOTE | 2024-11-22 15:19 | P.PN ---
Subjective Date of Service: 11/22/24 Chief Complaint: KAITLIN with hyperkalemia Patient has no new complaint He was seen sitting at the edge of the bed unsupported. He is tolerating room air. Physical Examination - Vital Signs Temperature: 97.7 F Blood Pressure: 155/75 Pulse: 64 Respirations: 20 Pulse Ox (%): 99 - Studies Medications List Reviewed: Yes Assessment And Plan - Plan Physical Exam: GEN: Alert, oriented, NAD CV: Regular rate and irregular rhythm, no edema Pulm: Nonlabored respirations on room air, clear bilaterally ABD: soft, nontender, nondistended Neuro: Normal speech, normal affect Problem List: KAITLIN on CKD 4 with hyperkalemia/uremia Metabolic encephalopathy secondary to above Chronic diastolic congestive heart failure CAD with previous stents Severe pulmonary hypertension Atrial fibrillation on chronic anticoagulation Diabetes mellitus type 2insulin-dependent Hypertension Hyperlipidemia Plan: KAITLIN on CKD 4 with hyperkalemia/uremia Metabolic encephalopathy secondary to above Nephrology is following Renal u/s (11/12): no hydro. echogenic renal cortex bilaterally. He has refused hemodialysis. He does not want aggressive surgical intervention at this point. Continue medical management, physical therapy Serum creatinine improving slowly. Chronic diastolic congestive heart failure CAD with previous stents Severe pulmonary hypertension CXR (11/15): Left retrocardiac opacities could reflect atelectasis or early pneumonitis. Mild central interstitial prominence may reflect central congestion or mild CHF Prior echo (08/25/24): 55-60% EF, mild MR/TR, heavily calcified aortic valve with likely moderate aortic stenosis, severe pulmonary hypertension Patient is asymptomatic. Atrial fibrillation on chronic anticoagulation with rapid ventricular response Cardiology is following s/p amio drip (11/16-11/17); transition to oral amio 200 mg BID (11/17) cardiology recommending eliquis 2.5 mg BID continue oral amio and metoprolol IDDM2 ACHS Accu-Chek, SSI Hypertension Hyperlipidemia Continue home medications. 11/20 No major changes from yesterday. Patient seen and evaluated by nephrology Dr. Mitchell. New creatinine baseline suspected. Patient cleared for discharge per Dr. Mitchell. Continue amiodarone and Eliquis for A-fib. He has not been out of bed since admit and according to report patient is somehow ambulatory with a walker. Continue PT. Social service consulted to evaluate for SNF placement. 11/21 Patient is very weak, needs maximal assistance to stand. PT input appreciated. He is not able to ambulate. Check x-ray done this morning shows mild improvement in aeration of the lungs with decreased but persistent interstitial prominence and some clearing of the retrocardiac opacities. Serum creatinine trended up slightly. It appears patient's new baseline is around 3.5. Patient continues to refuse dialysis. He is slated for skilled rehab. 11/22 It appears patient functional status is improving. He is tolerating room air. Continue metoprolol, amiodarone and Eliquis Continue PT Monitor renal function to follow-up creatinine level. Diuresis per nephrology. Blood pressure improved and patient is currently hypertensive. Monitor BP and restart antihypertensives as needed. Hydralazine IV as needed for BP spikes. Awaiting insurance authorization for SNF placement. VTE: eliquis Code: Full Dispo: SNF
--- NOTE | 2024-11-22 21:27 | PN ---
Date of Progress Note: 11/22/2024 Subjective: The patient is admitted to the hospital because of acute kidney injury. He developed se kaylynn prerenal azotemia, volume depletion due to diuretics. He was started on IV fluids. The patient refused dialysis. The patient has poor p.o. intake, fluids. IV fluids were stopped. Diuretics wer e discontinued. Renal function is stabilizing. Review of Systems: Denies chest pain, palpitation. Physical Examination: Lungs: Clear to auscultation bilaterally. Heart: S1, S2. 2/6 systolic murmur at left lower sternal border. Abdomen: Soft, nontender. Extremities: Trace edema. Impression And Plan: 1. Acute kidney injury. Renal function is plateauing, although patient has advanced chronic kidney d isease and he may need dialysis in the near future. The patient denies paroxysmal nocturnal dyspnea, orthopnea. There is no acidosis and no hyperkalemia, although he complains of generalized weakness and he is not advancing with physical therapy. IV fluids currently are on hold. 2. Hypertension, controlled. 3. Hypernatremia, resolved. 4. Hyperkalemia, resolved. 5. Secondary hyperparathyroidism. Continue calcitriol. EB/MODL Voice ID: [id number] Report ID: [id number]
[2024-11-23 04:52] LABS: Absolute Eosinophils 0.3 K/uL (0-0.5); Absolute Lymphocytes (CBC) 0.9 K/uL (0.7-4.9); Absolute Monocytes 1.1 K/uL (0.1-1.3); Absolute Neutrophil 5.2 K/uL (1.8-8.0); Basophils % 0.6 % (0-1.3); Eosinophils % 3.9 % (0-4.4); Hematocrit 39.8 % (39.6-49.0); Lymphocytes % 11.9 % (15.3-44.8); MCH 27.7 pg (27.0-35.0); MCHC 32.6 g/dL (32.0-36.0); MCV 84.9 fL (80-100); MPV 7.8 fL (7.6-11.3); Monocytes % 14.6 % (3.3-12.3); Nucleated Red Blood Cells % 0.1 % (0-0); Platelets 299 thou/uL (152-406); RBC Red Blood Cell Count 4.68 M/uL (4.33-5.43)
[2024-11-23 05:17] LABS: Anion Gap 10.8 mEq/L (5.0-15.0); Potassium 4.8 mEq/L (3.5-5.1)
[2024-11-23 12:03] VITALS: O2SAT 96
[2024-11-23 12:59] VITALS: BP 114/49; TEMP 98.5
[2024-11-25] MEDS ORDERED: DRISDOL (VITAMIN D=ERGOCALCIFEROL) 50000 UNIT CAP PO SCH (09:00)
--- NOTE | 2024-11-25 12:40 | EKG ---
Test Date: 2024-11-16 Test Time: 21:28:31 Investigations Chief: HB MEASUREMENT RESULTS: Intervals: Rate: 83 TN: 156 QRSD: 90 QT: 422 QTc: 495 [place]: P: 77 TN: 156 QRS: -68 T: -38 INTERPRETIVE STATEMENTS: Normal sinus rhythm Possible Left atrial enlargement Left axis deviation ST & T wave abnormality, consider anterolateral ischemia Prolonged QT Abnormal ECG Compared to ECG 11/12/2024 09:11:23 Left-axis deviation now present Possible ischemia now present Prolonged QT interval now present Sinus tachycardia no longer present Right superior axis no longer present ST (T wave) deviation still present Electronically Signed On 11-25-24 12:21:57 FIELD MARKETING MANAGER by Faraz Duque
== END 2024-11-23 13:44 | DRG 682 ==
LOC: ER 08:53 → ERHOLD 14:25 → 2ND 15:20
PROVIDERS: ADMIT Hospitalist; ATTEND Internal Medicine
DX: N17.0 Acute kidney failure with tubular necrosis (principal); G93.41 Metabolic encephalopathy; I13.0 Hypertensive heart and chronic kidney disease with heart failure and stage 1 through stage 4 chronic kidney disease, or unspecified chronic kidney disease; I50.32 Chronic diastolic (congestive) heart failure; E87.20 Acidosis, unspecified; E46 Unspecified protein-calorie malnutrition; I48.20 Chronic atrial fibrillation, unspecified; E87.0 Hyperosmolality and hypernatremia; N18.4 Chronic kidney disease, stage 4 (severe); E11.22 Type 2 diabetes mellitus with diabetic chronic kidney disease; D63.1 Anemia in chronic kidney disease; E87.5 Hyperkalemia; E86.0 Dehydration; N25.81 Secondary hyperparathyroidism of renal origin; E78.00 Pure hypercholesterolemia, unspecified; J44.9 Chronic obstructive pulmonary disease, unspecified; I25.10 Atherosclerotic heart disease of native coronary artery without angina pectoris; Z23 Encounter for immunization; Z88.0 Allergy status to penicillin; Z79.4 Long term (current) use of insulin; Z95.5 Presence of coronary angioplasty implant and graft; Z68.23 Body mass index [BMI] 23.0-23.9, adult; Z74.01 Bed confinement status; Z79.01 Long term (current) use of anticoagulants; Z79.82 Long term (current) use of aspirin; Z79.899 Other long term (current) drug therapy
CPT/HCPCS: 36415; 70450; 71045; 76770; 80048; 80053; 80069; 81001; 82550; 82947; 83605; 83735; 83880; 84145; 84165; 84166; 84439; 84443; 84550; 85025; 85027; 85610; 85730; 86334; 87040; 93005; 93306; 93925; 97110; 97116; 97161; 97530; 99285; J0282; J0360; J2405; J7030; J7060

== ENCOUNTER 2024-12-04 14:19 | Inpatient (IN) | payer OTHER ==
--- OUTSIDE RECORDS SUMMARY | 2024-12-04 14:23 | XMS REPORT | Continuity of Care Document ---
Author Name Unknown Address [address] [facility]. [address] [place] [address] [facility] thconnect Address [address] [facility] [address] [place] [address] Care Team Providers Care Staff Psychologist Name Role Phone Carlitos DURANT, Cj Hernandez Primary Care Physician [phone] Bassam Donis Attending Clinician Unavailable Michael Orozco Attending Clinician Loc Alcocer RN, Jose Lazo Attending Clinician Unavail able Romel Yu Attending Clinician [phone] Starla Tafoya MD Attending Clinician [phone] Kel Yin MD Attending Clinician [phone] KEL YIN Attending Clinician Unavailable Brissa Reinoso Attending Clinician UnavailChad Penn Attending Clinician Unavailable Physician, No Primary or Family Admitting Clinic joe Unavailable Starla Tafoya MD Admitting Clinician [phone] STARLA TAFOYA Admitting Clinician Unavailable Payers Payer Name Policy Type Policy Number Effective Date Expirati on Date Source [place] [id number] [facility] Problems Condition Name Condition Details Condition Category Status Onset Date Resolution Date Last Treatment Date Treating Clinician Comments Source Nausea and vomiting in adult Nausea and vomiting in adult Disease Active 03-08 00:00: 00 [facility] MULLER (dyspnea on exertion) MULLER (dyspnea on exertion) Disease Active 03-08 00:00: 00 [facility] Coronary artery disease involving [place] coronary artery of [place] heart with angina pectoris Coronary artery disease involving [place] coronary artery of [place] heart with angina pectoris Disease Active 03-08 00:00: 00 [facility] Dyslipidem ia Dyslipidem ia Disease Active 03-08 00:00: 00 [facility] Uncontroll ed hypertensi on Uncontroll ed hypertensi on Disease Active 03-08 00:00: 00 [facility] Chronic heart failure with preserved ejection fraction Chronic heart failure with preserved ejection fraction Disease Active 03-08 00:00: 00 [facility] PAF (paroxysma l atrial fibrillati on) PAF (paroxysma l atrial fibrillati on) Disease Active 03-08 00:00: 00 [facility] Type 2 diabetes mellitus with other specified complicati on Type 2 diabetes mellitus with other specified complicati on Disease Active 03-08 00:00: 00 [facility] Elevated troponin I level Elevated troponin I level Disease Active 03-08 00:00: 00 [facility] Angina of effort Angina of effort Disease Active 02-17 00:00: 00 [facility] [id number] ED (erectile dysfunctio n) of organic origin Problem Active [facility] [id number] Prostate nodule Problem Active [facility] [id number] Urge incontinen ce Problem Active [facility] [id number] Lower urinary tract symptoms (LUTS) Problem Active [facility] Allergies, Adverse Reactions, Alerts Allergy Name Allergy Type Status Severity Reaction(s) Onset Date Inactive Date Treating Clinician Comments Source penicili n (Not Checked) Propensi ty to adverse reaction to drug Active 1-22 00:00: 00 Noe Tolentino Penicill ins DA Active SV HIVES 8-05 00:00: 00 EMILEE [facility] Penicill ins Propensi ty to adverse reaction s Active Rash 02-17 00:00: 00 [facility] PENICILL INS Drug Class Active Rash 02-17 00:00: 00 [facility] Social History Social Habit Start Date Stop Date Quantity Comments Source History of tobacco use Passive smoker [facility] History SDOH Alcohol Std Drinks [facility] History SDOH Alcohol Binge [facility] History SDOH Social Connections Get Together [facility] History SDOH Social Connections Orthodox [facility] History SDOH Social Connections Membership [facility] History SDOH Social Connections Meetings [facility] Tobacco use and exposure 2023-03-08 00:00:00 2023-03-08 00:00:00 Smokeless tobacco non-user [facility] Alcohol intake 2023-03-08 00:00:00 2023-03-08 00:00:00 3 /d [facility] History SDOH Alcohol Frequency 2023-03-08 00:00:00 2023-03-08 00:00:[address] [facility] History SDOH Social Connections Phone 2023-03-08 00:00:00 2023-03-08 00:00:[address] [facility] History SDOH Social Connections Living 2023-03-08 00:00:00 2023-03-08 00:00:[address] [facility] History SDOH Financial 2023-03-08 00:00:00 2023-03-08 00:00:[address] [facility] History SDOH Food Worry 2023-03-08 00:00:00 2023-03-08 00:00:[address] [facility] History SDOH Food Scarcity 2023-03-08 00:00:00 2023-03-08 00:00:[address] [facility] History SDOH Transport Med 2023-03-08 00:00:00 2023-03-08 00:00:[address] [facility] History SDOH Transport Non-Med 2023-03-08 00:00:00 2023-03-08 00:00:[address] [facility] History SDOH Housing Unable to Pay 2023-03-08 00:00:00 2023-03-08 00:00:[address] [facility] History SDOH Housing Places Lived 2023-03-08 00:00:00 2023-03-08 00:00:[address] [facility] History SDOH Housing Homeless Last Year 2023-03-08 00:00:00 2023-03-08 00:00:[address] [facility] Tobacco Comment 2023-03-08 00:00:00 2023-03-08 00:00:00 quit smoking [address] [facility] Sex Ass[birth year] At 1950 00:00:00 1950 00:00:00 [facility] Smoking Status Start Date Stop Date Source Ex-smoker 2023-03-08 00:00:00 2023-03-08 00:00:[address] [facility] Medications Ordered Medication Name Filled [...] mg tablet 10-23 00:00: 00 Yes 1mg Neo Tolentino Eliquis 5 mg tablet 10-23 00:00: [...] 100 unit/mL injection 03-10 00:00: 00 Yes [id number] 15U inject 15 Units under the skin in the morning. [facility] amLODIPine 10 mg tablet 03-10 00:00: 00 04-10 04:59 :00 No [id number] 10mg Take 1 tablet by mouth in the morning for 30 days. [facility] metoprolol succinate XL 50 mg 24 hr tablet 03-10 00:00: 00 04-10 04:59 :00 No [id number] 50mg Take 1 tablet by mouth in the morning for 30 days. [facility] glimepiride (AMARYL) 4 mg tablet 03-09 19:56: 26 Yes 4mg Take 4 mg by mouth daily with breakfast. [facility] ALPRAZolam (XANAX) 1 mg tablet 03-09 19:56: 26 Yes 1mg Take 1 mg by mouth 3 (three) times daily. [facility] omega-3 fatty acids-vitam in E (FISH OIL) 1,000 mg capsule 03-09 19:56: 26 Yes 1g Take 1 g by mouth daily. [facility] rosuvastati n (CRESTOR) 10 mg tablet 03-09 15:36: 42 03-09 00:00 :00 No 10mg Take 10 mg by mouth at bedtime. [facility] metoprolol succinate XL (TOPROL XL) 50 mg 24 hr tablet 03-09 15:36: 42 03-09 00:00 :00 No 50mg Take 50 mg by mouth daily. [facility] hydrochloro thiazide (ESIDRIX) 25 mg tablet 03-09 15:36: 42 03-09 00:00 :00 No 25mg Take 25 mg by mouth daily. [facility] canaglifloz in (INVOKANA) 300 mg tablet 03-09 15:36: 42 03-09 00:00 :00 No Take by mouth. [facility] metFORMIN (GLUCOPHAGE ) 1,000 mg tablet 03-09 15:36: 42 03-09 00:00 :00 No 1000mg Take 1,000 mg by mouth 2 (two) times daily with meals. [facility] Amlodipine- Olmesartan (SKYLAR) 10-40 mg per tablet 03-09 15:36: 42 03-09 00:00 :00 No Take by mouth. [facility] INSULIN DETEMIR (LEVEMIR FLEXTOUCH SC) 03-09 15:36: 42 03-09 00:00 :00 No inject under the skin. [facility] aspirin 81 mg EC tablet 03-09 15:36: 42 03-09 00:00 :00 No 81mg Take 81 mg by mouth daily. [facility] rosuvastati n (CRESTOR) tablet 10 mg 03-09 02:00: 00 Yes 10mg 10 mg, Oral, QHS, First dose on Mon03/08/23 at 2100, Until Discontinu ed, Routine [facility] aspirin 81 mg EC tablet 03-09 00:00: 00 04-09 04:59 :00 No [id number] 81mg Take 1 tablet by mouth in the morning for 30 days. [facility] hydroCHLORO thiazide 25 mg tablet 03-09 00:00: 00 04-09 04:59 :00 No [id number] 25mg Take 1 tablet by mouth in the morning for 30 days. [facility] metFORMIN 1,000 mg tablet 03-09 00:00: 00 04-09 04:59 :00 No [id number] 1000mg Take 1 tablet by mouth in the morning and 1 tablet in the evening. Take with meals. Do all this for 30 days. [facility] rosuvastati n 10 mg tablet 03-09 00:00: 00 04-09 04:59 :00 No [id number] 10mg Take 1 tablet by mouth at bedtime for 30 days. [facility] sulfur hexafluorid e microsphr (LUMASON) injection 5 mL 03-08 15:45: 00 03-08 15:45 :00 No [id number] 5mL 5 mL, Intravenou s, ONCE, 1 dose, On Mon03/08/23 at 1045, Routine
juice bar team member approving Restricted medication : RONALD AVILA [facility] Saline Bubble Study 03-08 15:41: 23 Yes [id number] 6mL 6 mL, Injection, SEE-INSTRU CTIONS, Starting on Mon03/08/23 at 1041, Until Discontinu ed, Routine [facility] insulin glargine (LANTUS U-100) injection 15 Units 03-08 14:15: 00 Yes 15U 15 Units, Subcutaneo us, DAILY, First dose on Mon03/08/23 at 0915, Until Discontinu ed, Routine [facility] amLODIPine (NORVASC) tablet 10 mg 03-08 14:15: 00 Yes 10mg 10 mg, Oral, DAILY, First dose on Mon03/08/23 at 0915, Until Discontinu ed, Routine [facility] metoprolol succinate XL (TOPROL XL) tablet 50 mg 03-08 14:15: 00 Yes 50mg 50 mg, Oral, DAILY, First dose on Mon03/08/23 at 0915, Until Discontinu ed, Routine [facility] hydroCHLORO thiazide (ESIDRIX) tablet 25 mg 03-08 14:15: 00 Yes 25mg 25 mg, Oral, DAILY, First dose on Mon03/08/23 at 0915, Until Discontinu ed, Routine [facility] aspirin EC tablet 81 mg 03-08 14:15: 00 Yes 81mg 81 mg, Oral, DAILY, First dose on Mon03/08/23 at 0915, Until Discontinu ed, Routine [facility] ALPRAZolam (XANAX) tablet 1 mg 03-08 14:04: 36 Yes 1mg 1 mg, Oral, TIDPRN, Starting on Mon03/08/23 at 0904, Until Discontinu ed, Routine, Anxiety [facility] Sliding Scale Insulin - Lispro (HumaLOG) 03-08 13:00: 00 Yes Subcutaneo us, TID MEALS+HS, First dose on Mon03/08/23 at 0800, Until Discontinu ed, Routine [facility] heparin (porcine) injection 5,000 Units 03-08 11:00: 00 Yes 5000U 5,000 Units, Subcutaneo us, Q8H, First dose on Mon03/08/23 at 0600, Until Discontinu ed, Routine [facility] hydralAZINE (APRESOLINE ) injection 10 mg 03-08 09:38: 44 Yes 10mg 10 mg, Slow IV Push, Q4HPRN, Starting on Mon03/08/23 at 0438, Until Discontinu ed, Routine, DBP=>100; SBP=>180 [facility] glucagon (GLUCAGEN DIAGNOSTIC KIT) injection 1 mg 03-08 09:36: 45 Yes 1mg 1 mg, Intramuscu lar, PRN, Starting on Mon03/08/23 at 0436, Until Discontinu ed, RENETTA, Blood Glucose < or = 70 mg/dL and patient is NPO, unable to swallow or has mental changes. [facility] dextrose 50 % in water (D50W) injection 25 mL 03-08 09:36: 45 Yes 25mL 25 mL, Slow IV Push, PRN, Starting on Mon03/08/23 at 0436, Until Discontinu ed, RENETTA, Blood Glucose < or = 70 mg/dL and patient is NPO, unable to swallow or has mental status changes. [facility] ondansetron (ZOFRAN (PF)) injection 4 mg 03-08 09:36: 24 Yes 4mg 4 mg, Slow IV Push, Q6HPRN, Starting on Mon03/08/23 at 0436, Until Discontinu ed, Routine, Nausea and Vomiting (N/V) [facility] HYDROcodone -acetaminop hen (NORCO 5) 5-325 mg tablet 1 tablet 03-08 09:36: 16 03-10 09:35 :16 No 1{tbl} 1 tablet, Oral, Q6HPRN, Starting on Mon03/08/23 at 0436, Until Mon03/10/23 at 0435, Routine, Pain (scale 4-6) [facility] acetaminoph en (TYLENOL) tablet 650 mg 03-08 09:36: 10 Yes 650mg 650 mg, Oral, Q6HPRN, Starting on Mon03/08/23 at 0436, Until Discontinu ed, Routine, Pain (scale 1-3), Temp > 38 C [facility] ondansetron (ZOFRAN (PF)) injection 4 mg 03-08 05:45: 00 03-08 05:40 :00 No 4mg 4 mg, Slow IV Push, ONCE, 1 dose, On Mon03/08/23 at 0045, RENETTA [facility] VESIcare 5 MG VESIcare 5 MG [...] Signs Vital Name Observation Time Observation Value Len reed Systolic blood pressure 2023-03-10 00:08:00 163 mm[Hg] [facility] Diastolic blood pressure 2023-03-10 00:08:00 90 mm[Hg] [facility] Heart rate 2023-03-10 00:08:00 70 /min [facility] Body temperature 2023-03-10 00:08:[address] [facility] Respiratory rate 2023-03-10 00:08:00 16 /min [facility] Oxygen saturation in Arterial blood by Pulse oximetry 2023-03-10 00:08:00 90 /min [facility] Body weight 2023-03-09 08:37:00 102.967 kg [facility] BMI 2023-03-09 08:37:00 30.79 kg/m2 [facility] Body height 2023-03-08 09:35:00 182.9 cm [facility] height 2020-12-03 11:15:00 70 [in_i] Commo n [facility] weight 2020-12-03 11:15:00 197 [lb_av] Comm on [facility] temperature 2020-12-03 11:15:00 97.6 [degF] Com mon [facility] bmi 2020-12-03 11:15:00 28.26 kg/m2 Comm on [facility] oximetry 2020-12-03 11:15:00 97 % Commo n [facility] blood pressure systolic 2020-12-03 11:15:00 139 mm[Hg] [facility] blood pressure diastolic 2020-12-03 11:15:00 64 mm[Hg] [facility] height 2020-08-24 14:00:00 70 [in_i] Commo n [facility] weight 2020-08-24 14:00:00 199.6 [lb_av] Co mmon [facility] temperature 2020-08-24 14:00:00 98.4 [degF] Com mon [facility] bmi 2020-08-24 14:00:00 28.64 kg/m2 Comm on [facility] oximetry 2020-08-24 14:00:00 96 % Commo n [facility] blood pressure systolic 2020-08-24 14:00:00 197 mm[Hg] [facility] blood pressure diastolic 2020-08-24 14:00:00 86 mm[Hg] [facility] Procedures Procedure Date / Time Performed Performing Clinician Source POCT GLUCOSE (AUTOMATED) 2023-03-09 21:33:[address] [facility] POCT GLUCOSE (AUTOMATED) 2023-03-09 16:39:[address] [facility] POCT GLUCOSE (AUTOMATED) 2023-03-09 12:45:[address] [facility] PHOSPHORUS 2023-03-09 09:02:00 [facility] MAGNESIUM 2023-03-09 09:02:00 [facility] 2023-03-09 09:02:00 Kel Yin [facility] HEPATIC FUNCTION PANEL (07552) (ALB,T.PRO,BILI T,BU/BC,ALT,AST,ALK PHOS) 2023-03-09 09:02:[address] [facility] BASIC METABOLIC PANEL (NA, K, CL, CO2, GLUCOSE, BUN, CREATININE, CA) 2023-03-09 09:02:[address] [facility] CBC WITH DIFF 2023-03-09 09:02:00 Jagdish Martin [facility] N-TERMINAL PRO-BNP 2023-03-09 09:02:[address] [facility] POCT GLUCOSE (AUTOMATED) 2023-03-09 02:08:[address] [facility] TROPONIN I 2023-03-08 22:51:00 [facility] GLYCOSYLATED HEMOGLOBIN (A1C) 2023-03-08 22:51:[address] [facility] POCT GLUCOSE (AUTOMATED) 2023-03-08 21:22:[address] [facility] POCT GLUCOSE (AUTOMATED) 2023-03-08 16:16:[address] [facility] TRANSTHORACIC ECHO (TTE) COMPLETE W/ CONTRAST 2023-03-08 14:29:[facility] 2023-03-08 12:39:[address] [facility] PHOSPHORUS 2023-03-08 11:24:[facility] 2023-03-08 11:24:00 Mic[facility]let [facility] N-TERMINAL PRO-BNP 2023-03-08 11:24:[address] [facility] XR CHEST 1 VW 2023-03-08 06:27:00 Temi Holloway [facility] HB ECG ROUTINE & RHYTHM STRIP 2023-03-08 05:39:[address] [facility] LIPASE 2023-03-08 05:39:00 Temi Holloway [facility] TROPONIN I 2023-03-08 05:39:00 Temi Holloway [facility] THYROID STIMULATING HORMONE 2023-03-08 05:39:00 [facility] COMP. METABOLIC PANEL (10675) 2023-03-08 05:39:[address] [facility] LIPID PANEL (59880)(TOTAL CHOLESTEROL, TRIGLYCERIDES, HDL) 2023-03-08 05:39:[address] [facility] CBC WITH DIFF 2023-03-08 05:39:00 Temi Holloway [facility] GLYCOSYLATED HEMOGLOBIN (A1C) 2023-03-08 05:39:[address] [facility] Encounters Start Date/Time End Date/Time Encounter Type Admission Type Attending Clinicians [facility] Facility Care Department Encounter ID Source 2021-10-27 12:15:25 Outpatient Donis, Bassam [facility] [id number] [facility] 2021-10-27 12:07:45 Outpatient [facility] [id number] [facility] 2024-10-23 14:52:07 2024-10-23 14:52:07 Outpatient [facility] [id number] Noe Leone Rajan 2024-10-23 00:00:00 2024-10-23 00:00:00 Outpatient Visit [facility] [id number] Noe Leone Rajan 2023-08-08 10:16:00 2023-08-08 10:16:00 Outpatient MAGDALENE Lermamaeveelizabeth Michael [facility] [id number] [facility] 2023-03-10 00:00:00 2023-03-10 00:00:00 Transition of Care Jose Alcocer [facility] [id number]..[id number] [facility] 2023-03-08 00:29:00 2023-03-09 19:46:00 Emergency Romel Montez Jelani Abdullah, Yaman [facility] 1..840.114 [id number] [facility] 2023-03-08 00:29:00 2023-03-09 19:46:00 Outpatient KEL ALVAREZ [facility] [id number] [facility] 2022-05-31 08:52:00 2022-05-31 08:52:00 Outpatient Br[facility] [id number] [facility] 2022-05-11 10:11:00 2022-05-11 10:11:00 Outpatient [facility] [id number] [facility] 2022-05-11 10:11:00 2022-05-11 10:11:00 Outpatient [facility] [id number] [facility] 2020-12-03 00:00:00 2020-12-03 00:00:00 OFFICE VISIT ESTAB PT LEVEL 2 STLMLC STLMLC [id number] [facility] 2020-08-24 00:00:00 2020-08-24 00:00:00 OFFICE VISIT NEW PT LEVEL 4 STLMLC STLMLC [id number] [facility] Results Test Description Test Time Test Comments Results Result Co mments Source [facility] GLUCOSE (AUTOMATED)2023-03-09 16:43:52* Test Item Value Reference Range Interpretation Comme nts POCT GLU (test code = 9489044020) 138 mg/dL 70-110 H Lab Interpretation (test cod e = 98029-5) Abnormal [facility] GLUCOSE (AUTOMATED)2023-03-09 12:55:44* Test Item Value Reference Range Interpretation Comme nts POCT GLU (test code = 8492302584) 126 mg/dL 70-110 H Lab Interpretation (test cod e = 90150-9) Abnormal [facility] GLUCOSE (AUTOMATED)2023-03-09 02:09:42* Test Item Value Reference Range Interpretation Comme nts POCT GLU (test code = 5808994985) 115 mg/dL 70-110 H Lab Interpretation (test cod e = 23407-0) Abnormal [facility] GLUCOSE (AUTOMATED)2023-03-08 21:32:42* Test Item Value Reference Range Interpretation Comme nts POCT GLU (test code = 7584484168) 266 mg/dL 70-110 H Lab Interpretation (test cod e = 04897-4) Abnormal [facility] GLUCOSE (AUTOMATED)2023-03-08 16:26:44* Test Item Value Reference Range Interpretation Comme nts POCT GLU (test code = 6778454906) 195 mg/dL 70-110 H Lab Interpretation (test cod e = 69866-3) [facility]normal [facility]2023-03-08 12:40:58* Test Item Value Reference Range Interpretation Comme nts POCT GLU (test code = 3637960382) 179 mg/dL 70-110 H Lab Interpretation (test cod e = 68044-5) Abnormal [facility] Stimulating Hormone (TSH)2023-03-08 11:56:52* Test Item Value Reference Range Interpretation Comme nts TSH (test code = 1462396073) 5.09 See_Comment H Biotin has been reported to cause a negative bias, interpret results relative to patient's use of biotin. [Automated message] The system which generated this result transmitted reference range: 0.45 - 4.70 mIU/L. The reference range was not used to interpret this result as normal/abnormal. Lab Interpretation (test code = 09666-4) Abnormal [facility] Hemoglobin (A1C)2023-03-08 11:27:39* Test Item Value Reference Range Interpretation Comme nts HGB A1C (test code = 4548-4) 9.3 % 4.0-5.7 H TRINIDAD (test code = TRINIDAD) Reference RangesNormal: <5.7%Prediabetes: 5.7 - 6.4%Diabetes: > 6.5% Lab Interpretation (test code = 13430-3) Abnormal [facility] (Total Cholesterol, Triglycerides, HDL)2023-03-08 11:14:15* Test Item Value Reference Range Interpretation Comme nts CHOL (test code = 0656897876) 166 mg/dL 120-200 HDL (test code = 1618249520) 51 mg/dL >=40 HDLC RATIO (test code = 8764494268) 3.3 <=5.0 TRIG (test code = 3246012094) 83 mg/dL 30-170 LDL CHOL (test code = 25209-0) 98 mg/dL <=160 VLDL (test code = 5142256432) 17 mg/dL 5-60 Lab Interpretation (test cod e = 16462-0) Normal [facility] [id number] 06:21:21* Test Item Value Reference Range Interpretation Comme nts TROPONIN I (test code = 1591022811) 0.075 ng/mL <=0.034 H TRINIDAD (test code [...] of biotin. Lab Interpretation (test code = 60231-5) Abnormal [facility] METABOLIC PANEL (54082)2023-03-08 06:10:20* Test Item Value Reference Range Interpretation Comme nts NA (test code = 2561772108) 135 mmol/L 135-145 K (test code = 5241277445) 4.3 mmol/L 3.5-5.0 CL (test code = 2241619194) 104 mmol/L 98-108 CO2 TOTAL (test code = 6003359465) 26 mmol/L 23-31 AGAP (test code = 4985138542) 5 2-16 BUN (test code = 0474473629) 27 mg/dL 7-23 H GLUCOSE (test code = 9958435780) 243 mg/dL 70-110 H CREATININE (test code = 7896162502) 2.15 mg/dL 0.60-1.25 H TOTAL BILI (test code = 1771037235) 0.8 mg/dL 0.1-1.1 CALCIUM (test code = 1952063237) 8.2 mg/dL 8.6-10.6 L T PROTEIN (test code = 0757594899) 6.0 g/dL 6.3-8.2 L ALBUMIN (test code = 5817167853) 2.5 g/dL 3.5-5.0 L ALK PHOS (test code = 1627685515) 60 U/L 34-122 ALTv (test code = 1742-6) 17 U/L 5-50 AST(SGOT) (test code = 7155775700) 26 U/L 13-40 eGFR (test code = 4737195081) 30.1 mL/min/1.73m2 RTINIDAD (test code = TRINIDAD) Association of Glomerular [...] imaging tests). Lab Interpretation (test code = 29558-7) Abnormal [facility], [id number] 06:09:44* Test Item Value Reference Range Interpretation Comme nts LIPASE (test code = 8225890021) 101 U/L 0-220 Lab Interpretation (test cod e = 79849-2) Normal [facility] WITH [id number] 05:51:59* Test Item Value Reference Range Interpretation [...] 31.9 g/dL 31.2-35.0 RDW-SD (test code = 11765-7) 56.7 fL 38.5-51.6 H RDW-CV (test code = 788-0) 19.4 % 12.1-15.4 H PLT (test code = 777-3) 232 See_Comment [Automated messa ge] The system which generated this result transmitted reference range: 150 - 328 10*3/?L. The reference range was not used to interpret this result as normal/abnormal. MPV (test code = 37303-8) 10.5 fL 9.8-13.0 NRBC/100 WBC (test code = 7164310492) 0.0 See_Comment [Automated Crunchbutton ssage] The system which generated this result transmitted reference range: 0.0 - 10.0 /100 WBCs. The reference range was not used to interpret this result as normal/abnormal. NRBC x10^3 (test code = 7674211548) See_Comment [Automated messa ge] The system which generated this result transmitted reference range: 10*3/?L. The reference range was not used to interpret this result as normal/abnormal. GRAN MAT (NEUT) % (test code = 770-8) 68.1 % IMM GRAN % (test code = 9932902629) 0.20 % LYMPH % (test code = 736-9) 20.0 % MONO % (test code = 5905-5) 9.2 % EOS % (test code = 713-8) 1.6 % BASO % (test code = 706-2) 0.9 % GRAN MAT x10^3(ANC) (test code = 6275340601) 3.85 10*3/uL 1.99-6.95 IMM GRAN x10^3 (test code = 8872189590) 0.00-0.06 LYMPH x10^3 (test code = 731-0) 1.13 10*3/uL 1.09-3.23 MONO x10^3 (test code = 742-7) 0.52 10*3/uL 0.36-1.02 EOS x10^3 (test code = 711-2) 0.09 10*3/uL 0.06-0.53 BASO x10^3 (test code = 704-7) 0.05 10*3/uL 0.01-0.09 Lab Interpretation (test code = 98009-2) [facility]normal [facility] [id number] 10:17:00 * Test Item Value Reference Range [...] waivedcomplexity tests. - CTA HEART W CN ART/[id number] 00:00:00 [facility] DAGMAR GONSALESName: ALBERT MARQUEZ : 1950 Sex: M Name: ALBERT MARQUEZ [facility] Dagmar Gonsales : 1950 Age/S: 72 / M [address] [place] [address] Blvd Unit #: [id number] Loc: [place] [address] Phys: Brissa Reinoso [employer]SEMBL[employer] Acct: [id number] Dis Date: Status: REG CLIPHONE #: [phone] Exam Date: 05/31/20221011 FAX #: [phone] Reason: EXAMS: CPT CODE: [id number] CTA HEART W CN ART/GRAFTS 22240 PROCEDURE INFORMATION: Exam: CTA Heart And Coronary Arteries With Contrast Exam date and time: 05/31/2022 10:09 AM Age: 72 years old Clinical indication: Other: Aortic stenosis TECHNIQUE: Imaging protocol: CT angiography of the heart, coronary arteries, and bypassgrafts (when present) with contrast including 3D image [...] 1 Signed Report (CONTINUED) Name: ALBERT MARQUEZ [facility] : 1950 Age/S: 72 / M [address] [place] [address] Blvd Unit #: [id number] Loc: [place] [address] Phys: Brissa Reinoso [facility] Acct: [id number] Dis Date: Status: REG CLI PHONE #: [phone] Exam Date: 05/31/2022 1012 FAX #: [phone] Reason: EXAMS: CPT CODE: [id number] CTA HEART W CN ART/GRAFTS 71188 (Continued) mitral annular calcification. PERICARDIUM: No evidence [...] intra-abdominal or retroperitoneal adenopathy. Mild wall thickening ofthe underdistended bladder. Prostate gland and seminal vesicles within normal limits. BONES AND SOFT TISSUES: There are no bony lytic or blastic lesions. 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 [...] by: Wood Duran M.D. CC: Brissa Reinoso Technologist:RT Tripp(R)(CT) CTDI: DLP: Trnscb Date/Time: 05/31/2022 (1722) [email or web address] Orig Print D/T: S: 05/31/2022 (1722) PAGE 3 Signed Report- CTA ABD PEL W [id number] 00:[facility]00[facility] 1950 Sex: M Name: ALBERT MARQUEZ [facility] : 1950 Age/S: 72 / M [address] [place] [address] Unit #: [id number] Loc: [place] [address] Phys: Brissa Reinoso Acct: [id number] Dis Date: Status: REG CLI PHONE #: [phone] Exam Date: 05/31/2022 1012 FAX #: [phone] Reason: 135.0, SEVERE AORTIC STENOSIS. EXAMS: CPT CODE: [id number] CTA ABD PEL W CONT 21858 PROCEDURE INFORMATION: Exam: CTA Heart And Coronary [...] AORTA: There is mild atherosclerosis of the thoracicaorta. There is a left sided aortic arch. There is no evidence of aortic dissection. Aortic arch vessels are patent. THORACIC AORTIC MEASUREMENTS: Thoracic aortic measurements are obtained at 30 percent phase of the R-R interval. Aortic annulus 26.6 x 21 mm, area of 4.18 cm2 and perimeter of 73.9 mm . SOV 34.5 x 36.1 x 32.6 mm [...] 1 Signed Report (CONTINUED) Name: ALBERT MARQUEZ [facility] : 1950 Age/S: 72 / M [address] [place] [address] Blvd Unit #: [id number] Loc: [place] [address] Phys: Brissa Reinoso Acct: [id number] Dis Date: Status: REG CLI PHONE #: [phone] Exam Date: 05/31/2022 1012 FAX #: [phone] Reason: 135.0, SEVERE AORTIC STENOSIS. EXAMS: CPT CODE: [id number] CTA ABD PEL W CONT 42391 (Continued)mitral annular calcification. PERICARDIUM: No evidence of pericardial [...] 2 Signed Report (CONTINUED) Name: ALBERT MARQUEZ [facility] : 1950 Age/S: 72 / M[address] Unit #: [id number] Loc: [place] [address] Phys: ChrisstephaniemikaBrissa BAIRD Acct: [id number] Dis Date: Status: REG CLI PHONE #: [phone] Exam Date: 05/31/2022 101 FAX #: [phone] Reason: 135.0, SEVERE AORTIC STENOSIS. EXAMS: CPT CODE: [id number] CTA ABD PEL W CONT 80651 (Continued) Small uncomplicated fat containing umbilical hernia. [...] could simply be the result of underdistention howevera mild cystitis is not excluded. Clinical correlation and correlation with urinalysis recommended. at 1723 Reported and signed by: Wood Duran M.D. CC: Brissa Reinoso Technologist:Berry Hearn RT(R)(CT) CTDI: DLP: Trnscb Date/Time: 05/31/2022 (1722) [email or web address] Orig Print D/T: S: 05/31/2022 (1728) PAGE 3 Signed Report- CT ANGIO [id number] 00:00[facility]00[facility] : 1950 Sex: M Name: ALBERT MARQUEZ [facility] : 1950 Age/S: 72 / M [address] [place] [address] Blvd Unit #: [id number] Loc: [place] [address] Phys: Brissa Reinoso [employer] ASSEMBLER Acct: [id number] Dis Date: Status: REG CLI PHONE #: [phone] Exam Date: 05/31/2022 1012 FAX #: [phone] Reason: 135.0 , SEVERE AORTIC STENOSIS. EXAMS: CPT CODE: [id number] CT ANGIO CHEST 12008 PROCEDURE INFORMATION: Exam: CTA Heart And Coronary [...] size (includes targeted exams where dose is matchedto clinical indication); or iterative reconstruction. Contrast material: ISOVUE 370; Contrast volume: 100 ml; Contrast route: INTRAVENOUS (IV); Pharmacological intervention: None. COMPARISON: No relevant prior studies available. FINDINGS: CARDIAC CTA/THORACIC CTA: AORTIC VALVE: There is a trileaflet aortic valve. There is severe calcification involving the aortic valve leaflets. The total calciumscore of the aortic valve is 1658. THORACIC AORTA: There is mild atherosclerosis of the thoracic aorta. There is a left sided aortic arch. There is no evidence of aortic dissection. Aortic arch vessels are patent. THORACIC AORTIC MEASUREMENTS: Thoracic aortic measurements are obtained at 30 percentphase of the R-R interval. Aortic annulus 26.6 [...] Mild PAGE 1 Signed Report (CONTINUED) Name: ALEBRT MARQUEZ [facility] [place] : 1950 Age/S: 72 / M [address] [place] [address] Blvd Unit #: [id number] Loc: [place] [address] Phys: Brissa Reinoso [facility] Acct: [id number] Dis Date: Status: REG CLI PHONE #: [phone] Exam Date: 05/31/2022 1012 FAX #: [phone] Reason: 135.0 , SEVERE AORTIC STENOSIS. EXAMS: CPT CODE: [id number] CT ANGIO CHEST 62929 (Continued) mitral annular calcification. PERICARDIUM: No evidence [...] AND PELVIS ABDOMINAL AORTA: There is mild at herosclerosis involving the abdominal aorta and moderate atherosclerosis [...] patent, measuring 6 mm or greater. The LEFTcommon iliac, external iliac and common femoral arteries are patent, measuring 6 mm or greater. ABDOMEN and PELVIS: The liver, gallbladder, biliary ducts, pancreas, spleen, kidneys are unremarkable. M ild thickening of the bilateral adrenal glands, consistent [...] 2 Signed Report (CONTINUED) Name: ALBERT MARQUEZ [facility] : 1950 Age/S: 72 / M [address] [place] [address] Unit #: [id number] Loc: [place] [address] Phys: Brissa Reinoso Acct: [id number] Dis Date: Status: REG CLI PHONE #: [phone] Exam Date: 05/31/2022 1012 FAX #: [phone] Reason: 135.0 , SEVERE AORTIC STENOSIS. EXAMS: CPT CODE: [id number] CT ANGIO CHEST 52377 (Continued) Small uncomplicated fat containing umbilical hernia. [...] RT(R)(CT) CTDI: DLP: Trnscb Date/Time: 05/31/2022 (1723) [email or web address] Orig Print D/T: S: 05/31/2022 (9426) PAGE 3 Signed ReportGLUCOSE [id number] 09:36:00 * Test Item Value Reference Range Interpretation Comme nts GLUCOSE BEDSIDE (test code = GLUBED) 137 MG/DL 70-110 H Performed by cer tified can line operator at [facility] BASIC METABOLIC [id number] 16:24:00* Test Item Value Reference Range Interpretation [...] = CA) 8.9 mg/dL 8.0-10.5 N PROTHROMBIN [id number] 16:19:00* Test Item Value Reference Range Interpretation [...] Infarction (to prevent recurrent infarct). CBC W/AUTO [id number] 16:09:00* Test Item Value Reference Range Interpretation [...] MDIFF) NO Notes Date/Time Note Provider Source Noe Tolentino [facility]2023-11-07 15:06:[id number] [facility] [address] [place] [address] PATIENT NAME: ALBERT MARQUEZ ADMIT DATE: 08/08/23 ACCOUNT NO: [id number] ROOM NO: AGE: 73 REPORT TYPE: eECHOCARDIOGRAM REPORT SEX: M ADMITTING PHYSICIAN: ATTENDING PHYSICIAN: Michael Orozco DO *[facility]* [address] [place] [address] Transthoracic Echocardiogram Patient: Albert Marquez Study Date: 08/08/2023 BP: Location: [facility] URN: [id number] : 1950 Age: 73 Height: 72 in / 182.9 cm Gender: M Weight: 188.6 lb / 85.7 kg BMI/BSA: 25.6 kg/m 2 / 2.08 m 2 *Ordering Physician: * Michael Orozco *Interpreting Physician: * Osmany Griffith MD *Prop Maker: * Rachael Melo Indications: CAD. Atrial Fibrillation. [...] Value 05/11/2022 Ref PATIENT NAME: ALBERT MARQUEZ AR peak v 0.99 m/sec ----- AR peak grad 4 mm Hg ----- Tricuspid [...] 15:05 at 1506 PATIENT NAME: ALBERT MARQUEZ [id number] [place] [address] patient name: albert marquez admit date: 05/31/22 account no: [id number] room no: age: 72 report type: pulmonary [...] iii. dictated by: dorothy baer md wt: pft:jacques/carol/asia dd: 06/02/2022 08:57:29 dt: 06/02/2022 09:52:31 conf#: [id number]/did#: [id number] authenticated by dorothy baer md on 06/06/2022 08:17:48 am electronically signed by dorothy baer md on 06/06/22 at 0817 patient name: albert marquez 15:06:00 [facility] ([facility]) clinical note report#:[id number] report status: signed date:05/11/22 time: 1506 patient: albert marquez unit #: [id number] room/bed: : 48 age: 72 sex: m attend: chad valadez md adm dt: 05/11/22 author: ian coates flavor maker * all edits or amendments must be made on the electronic/computer document * clinical note note: 72-year-old -b[place]an male with past medical history of hypertension, [...] molina md on 05/24/22 at 0953 rpt #:[id number] end of [id number] 15:06:00 [facility] ([facility]) Clinical Note REPORT#:[id number] REPORT STATUS: Signed DATE:05/11/22 TIME: 1506 PATIENT: ALBERT MARQUEZ UNIT #: [id number] ROOM/BED: : 48 AGE: 72 SEX: M ATTEND: Chad Valadez MD ADM AUTHOR: Ian Coates STERILE SUPERVISOR * ALL edits or amendments must be made on the electronic/computer document * Clinical Note Note: 72-year-old -[place] male with past medical history of [...] not want to wait. at 1522 RPT #:[id number] END OF REPORTHCACL"
--- NOTE | 2024-12-04 15:27 | RAD REPORT ---
EXAM: Chest Single View HISTORY: 74 years Male hypoxia COMPARISON: 225 FINDINGS: LUNGS/PLEURA: Diffuse prominence of the pulmonary interstitium. CARDIAC/MEDIASTINUM: Mild cardiomegaly UPPER ABDOMEN: No significant abnormality. BONES: No acute abnormality. LINES/TUBES/OTHER: N/A IMPRESSION: Likely pulmonary edema, new from prior.
[2024-12-04] MEDS ORDERED: ACETAMINOPHEN 500 MG TAB ONE (15:55)
[2024-12-04] MEDS ORDERED: NA CHLORIDE 0.9% 100 ML ONE (15:55)
[2024-12-04] MEDS ORDERED: CEFEPIME 2 GM VIAL ONE (15:55)
[2024-12-04] MEDS ORDERED: NA CHLORIDE 0.9% 1,000 ML ONE (15:55)
--- NOTE | 2024-12-04 16:25 | RAD REPORT ---
EXAMINATION: Head Brain Wo Cont CLINICAL INDICATION: Male, 74 years old.ams TECHNIQUE: Axial CT images from the skull base to the vertex without intravenous contrast. Coronal an d sagittal reformatted images were created from the data set. One or more of the following dose reduction techniques were used: Automated exposure control, adjustment of the mA and/or kV according to patient size, and/or iterative reconstruction. Unless otherwise specified, incidental findings do not require dedicated imaging follow-up. [id number]. COMPARISON: 11/12/24 FINDINGS: INTRACRANIAL: No acute intracranial hemorrhage. Similar ventriculomegaly involving the lateral and th ird ventricle out of proportion to the degree of cerebral atrophy. No mass effect or midline shift. Moderate chronic small vessel ischemic changes.Moderate cerebral atrophy. VASCULATURE: No visualized abnormalities in the arteries or dural venous sinuses. SCALP/SKULL: No calvarial fracture identified. No acute soft tissue abnormality. SINUSES: Near complete opacification of the right maxillary sinus. No significant mastoid fluid. IMPRESSION: No acute intracranial abnormality. Chronic changes as noted above.
[2024-12-04] MEDS ORDERED: ACETAMINOPHEN 650MG/RECT SUPP PR ONE (17:59)
[2024-12-04 18:36] LABS: Specific Gravity 1.017 (1.005-1.030); Sqamous Epithelial None Seen /HPF (None Seen); Urine Bacteria <20 /HPF (<20); Urine Bilirubin NEGATIVE (Negative); Urine Blood 1+ (Negative); Urine Clarity Extremely Turbid (Clear); Urine Color Yellow (Yellow); Urine Culture Reflex Order NOT NEEDED; Urine Glucose 3+ (Negative); Urine Ketones NEGATIVE (Negative); Urine Microscopic Reflex YN ORDER UMIC; Urine Nitrite NEGATIVE (Negative); Urine Protein 2+ (Negative); Urine RBC <5 /HPF (None Seen); Urine Urobilinogen Normal (Normal); Urine WBC <5 /HPF (<5); Urine pH 5.5 (5.0-7.0)
[2024-12-04 18:44] LABS: Absolute Basophils 0.1 K/uL (0-0.5); Absolute Lymphocytes (CBC) 0.7 K/uL (0.7-4.9); Absolute Neutrophil 13.4 K/uL (1.8-8.0); Basophils % 0.6 % (0-1.3); Hematocrit 42.7 % (39.6-49.0); Lymphocytes % 4.3 % (15.3-44.8); MCH 25.9 pg (27.0-35.0); MCHC 30.5 g/dL (32.0-36.0); MPV 7.6 fL (7.6-11.3); Monocytes % 12.1 % (3.3-12.3); Platelets 407 thou/uL (152-406); RBC Red Blood Cell Count 5.02 M/uL (4.33-5.43); Red Cell Distribution Width 18.5 % (12.1-15.2)
[2024-12-04 18:48] LABS: PT Prothrombin Time 19.8 SECONDS (10.0-13.0); PTT, Activated Partial Thromb 42.6 SECONDS (24.3-36.9); Protime INR 1.79
[2024-12-04 19:16] LABS: Albumin 1.7 g/dL (3.4-5.0); Albumin/Globulin Ratio 0.3 (1.1-1.8); Anion Gap 11.6 mEq/L (5.0-15.0); Bilirubin Total 0.7 mg/dL (0.2-1.0); Globulin 6.3 g/dL (2.3-3.5); Potassium 4.6 mEq/L (3.5-5.1); Troponin High Sensitivity 237.6 pg/mL (<58.9)
--- NOTE | 2024-12-04 20:01 | ER ---
Nurse's Notes [facility] Name: Julianna Kearns Age: 74 yrs Sex: Male : 1950 Arrival Date: 12/04/2024 Time: 14:19 Bed 6 Private MD: Diagnosis: Pneumonia, unspecified organism;CHF exacerbation;Severe sepsis Presentation: 12/04 14:20 Chief complaint: EMS states: long-term ([facility]) reported the patient was no ap3 longer verbally responsive this morning which is out of his baseline. EMS states the long-term informed them the patient has been having a cough, congestion and was requiring oxygen this morning, which he does not typically require. Coronavirus screen: Client presents with at least one sign or symptom that may indicate coronavirus-19. Ebola Screen: No symptoms or risks identified at this time. Initial Sepsis Screen: Does the patient meet any 2 criteria? RR > 20 per min. Altered Mental Status. HR > 90 bpm. Yes Does the patient have a suspected source of infection? No. Patient's initial sepsis screen is negative. Risk Assessment: Do you want to hurt yourself or someone else? Patient reports no desire to harm self or others. Onset of symptoms is unknown. 14:20 Method Of Arrival: EMS: [facility] ap3 14:20 Acuity: VERONICA 2 ap3 14:24 Transition of care: patient was received from another setting of care (long-term care ap3 facility), [facility]. Triage Assessment: 14:25 General: Appears ill, Behavior is calm. Pain: Unable to use pain scale. verbally ap3 unresponsive. Neuro: Level of Consciousness is awake, alert, obeys commands, Oriented to unable to assess at this time. responds to name and follows commands appropriately. . Cardiovascular: Patient's skin is warm and dry. Respiratory: Reports cough that is Airway is patent Respiratory effort is even, unlabored, Respiratory pattern is regular, symmetrical, tachypnea. Historical: - Allergies: 14:23 PENICILLINS; ap3 - PMHx: 14:23 Atrial Fib; caridac stent; caridac stent; CHF; Chronic obstructive lung disease; ap3 Chronic obstructive lung disease; Diabetes - NIDDM; Hypercholesterolemia; Hypertension; - PSHx: 14:23 cardiac stent; ap3 - Immunization history:: Adult Immunizations unknown. - Infectious Disease History:: unknown. - Social history:: Smoking status: unknown. Screenin:26 Abuse screen: Denies threats or abuse. Nutritional screening: No deficits noted. ap3 Tuberculosis screening: No symptoms or risk factors identified. 16:31 [facility] ED Fall Risk Assessment (Adult) Altered Elimination. ap3 22:34 [facility] ED Fall Risk Assessment (Adult) History of falling in the last 3 months, cp4 including since admission No falls in past 3 months (0 pts) Confusion or Disorientation Yes (5 pts) Intoxicated or Sedated No (0 pts) Impaired Gait Yes (1 pt) Mobility Assist Device Used Yes (1 pt) Score/Fall Risk Level 3 or more points = High Risk Oriented to surroundings, Maintained a safe environment, Assessed \T\ reinforced patient's understanding of fall precautions, Hourly rounding (assess needs \T\ fall precautionary measures) done. Assessment: 16:56 General: attempted to call lab at [phone] for assistance with recollection. no ap3 answer. Vital Signs: 14:20 BP 98 / 78; Pulse 96; Resp 24; Temp 100.7(A); ap3 14:24 Pulse Ox 94% on 4 lpm NC; ap3 15:48 BP 136 / 79; Pulse 93; Pulse Ox 98% on NC; rs6 19:47 BP 135 / 61; Pulse 92; Pulse Ox 100% on NC; ap3 22:28 BP 136 / 67; Pulse 86; Resp 15; Pulse Ox 97% on 4 lpm NC; cp4 ED Course: 14:20 Patient arrived in ED. ap3 14:20 Shakir Crouch MD is Attending Physician. rt 14:23 Triage completed. ap3 14:26 Arm band placed on right wrist. ap3 14:27 Client placed on continuous cardiac and pulse oximetry monitoring. NIBP monitoring ap3 applied. sonogram technician on. Pulse ox on. NIBP on. 14:34 Emerald Newman RN is Primary Nurse. ap3 14:45 Inserted saline lock: 20 gauge in right wrist, using aseptic technique. Flushed with 10 rs6 mL NS. 14:50 Inserted saline lock: 22 gauge in left wrist, using aseptic technique. Blood collected. rs6 Flushed with 10 mL NS. 15:22 Chest Single View XRAY In Process Unspecified. EDMS 16:10 CT Head Brain wo Cont In Process Unspecified. EDMS 19:48 Report given to Chary \Amber\ Emerald MALDONADO. ap3 19:59 Chucky Arteaga MD is Hospitalizing Provider. rt 22:34 No provider procedures requiring assistance completed. Patient admitted, IV remains in cp4 place. 22:35 Bed in low position. Call light in reach. Side rails up X2. Adult w/ patient. Provided cp4 Education on: admission. 12/05 04:50 Repeat lab(s) drawn. by ma, sent to lab. [facility] Administered Medications: 12/04 16:26 Not Given (Duplicate Order): [id number] mg PO once rt 16:27 Drug: NS 0.9% IV 1000 ml IV at 1000 ml once; to be given as a bolus over 60 minutes ap3 Route: IV; Rate: 1000 ml; Site: right antecubital; 22:18 Follow up: Response: No adverse reaction; IV Status: Completed infusion cp4 16:27 Drug: Cefepime IVPB 2 grams IVPB at 200 ml/hr once over 30 mins; (mix in NS 100 mL) ap3 Route: IVPB; Rate: 200 ml/hr; Infused Over: 30 mins; Site: right wrist; 22:25 Follow up: IV Status: Completed infusion cp4 18:02 Drug: Acetaminophen ME Suppository 650 mg ME once Route: ME; ap3 22:18 Follow up: Response: No adverse reaction cp4 Medication: 12/05 19:32 VIS not applicable for this client. vc1 Outcome: 12/04 20:00 Decision to Hospitalize by Provider. rt 22:34 Condition: stable cp4 12/05 20:48 Admitted to Med/surg accompanied by nurse, via stretcher, room 201, with oxygen, with vc1 chart, Report called to Javier Instructed on the need for admit, 20:49 Patient left the ED. vc1 Signatures: Dispatcher [employer] EDEmerald Estrada RN RN ap3 Shaylee New RN RN vc1 Shakir Crouch MD MD rt Chary De La Cruz cp4 Michelle Greenbreg f Shakir Carrillo rs6
--- NOTE | 2024-12-04 20:01 | EDPHYS ---
Physician Documentation [facility] Name: Julianna Kearns Age: 74 yrs Sex: Male : 1950 Arrival Date: 12/04/2024 Time: 14:19 Bed 6 Private MD: ED Physician Shakir Crouch HPI: 12/04 15:52 This 74 yrs old Black Male presents to ER via EMS with complaints of ams. rt 15:53 History limited due to patient with altered mental status. Patient presents to the ED rt with altered mental status from fdc. He is at his baseline, reportedly is not speaking. Patient also reportedly had oxygen saturation of 83% on room air, has no baseline oxygen requirement, EMS denies other acute complaints at this time, symptoms are moderate in severity, no other aggravating alleviating factors.. Historical: - Allergies: 14:23 PENICILLINS; ap3 - PMHx: 14:23 Atrial Fib; caridac stent; caridac stent; CHF; Chronic obstructive lung disease; ap3 Chronic obstructive lung disease; Diabetes - NIDDM; Hypercholesterolemia; Hypertension; - PSHx: 14:23 cardiac stent; ap3 - Immunization history:: Adult Immunizations unknown. - Infectious Disease History:: unknown. - Social history:: Smoking status: unknown. ROS: 15:53 Unable to obtain ROS due to altered mental status, rt Exam: 15:53 Constitutional: This is a well developed, well nourished patient who is awake, alert, rt and in no acute distress. Head/Face: Normocephalic, atraumatic. Chest/axilla: Normal chest wall appearance and motion. Nontender with no deformity. No lesions are appreciated. Cardiovascular: Regular rate and rhythm with a normal S1 and S2. No gallops, murmurs, or rubs. Normal PMI, no JVD. No pulse deficits. Respiratory: Lungs have equal breath sounds bilaterally, clear to auscultation and percussion. No rales, rhonchi or wheezes noted. No increased work of breathing, no retractions or nasal flaring. Abdomen/GI: Soft, non-tender, with normal bowel sounds. No distension or tympany. No guarding or rebound. No evidence of tenderness throughout. 15:53 ECG was reviewed by the Attending Physician. 15:53 Neuro: Mumbling speech, moves all 4 extremities equally, Vital Signs: 14:20 BP 98 / 78; Pulse 96; Resp 24; Temp 100.7(A); ap3 14:24 Pulse Ox 94% on 4 lpm NC; ap3 15:48 BP 136 / 79; Pulse 93; Pulse Ox 98% on NC; rs6 19:47 BP 135 / 61; Pulse 92; Pulse Ox 100% on NC; ap3 22:28 BP 136 / 67; Pulse 86; Resp 15; Pulse Ox 97% on 4 lpm NC; cp4 MDM: 14:27 Medical Screening Exam initiated rt 20:00 Differential Diagnosis Sepsis, pneumonia, CHF. Data reviewed: vital signs, nurses rt notes, lab test result(s), EKG, radiologic studies. Consideration of Admission/Observation Patient was admitted/placed on observation. Management of patient was discussed with the following: Hospitalist: Agrees to. I considered the following discharge prescriptions or medication management in the emergency department Medications were administered in the Emergency Department. See MAR. Independent interpretation of the following test(s) in the Emergency Department X-Ray: My interpretation is Edema versus multifocal pneumonia seen on my interpretation of x-ray images. Care significantly affected by the following chronic conditions: Atrial fibrillation, CHF. Post IV fluid administration reassessment for Sepsis: Client not prescribed the 30 mL/kg IVF due to: concern for fluid overload. concern related to heart failure. Amount of IVF prescribed: 1000 Sepsis focused reassessment complete. Focused assessment performed: December 04, 2024 at 18:00 Heart: Regular rate/rhythm. Irregular rhythm. Neuro: Patient's neurological exam did not improve from previous exam. Cardio: Cardiovascular exam improved from previous exam. Heart rate and blood pressure have improved. Respiratory: Respiratory exam improved from previous exam. Counseling: I had a detailed discussion with the patient and/or guardian regarding the historical points, exam findings, and any diagnostic results supporting the discharge/admit diagnosis, lab results, radiology results, the need for further work-up and treatment in the hospital. Response to treatment: the patient's symptoms have mildly improved after treatment. 12/04 14:34 Order name: Blood Culture Adult (2) rt 12/04 14:34 Order name: CBC with Diff; Complete Time: 19:17 rt 12/04 14:34 Order name: CMP; Complete Time: 19:17 rt 12/04 14:34 Order name: Lactate w/ 2H reflex if indic.; Complete Time: 15:52 rt 12/04 14:34 Order name: Protime (+inr); Complete Time: 19:17 rt 12/04 14:34 Order name: Ptt, Activated; Complete Time: 19:17 rt 12/04 14:34 Order name: Urinalysis w/ reflexes; Complete Time: 19:17 rt 12/04 14:34 Order name: Troponin High Sensitivity; Complete Time: 19:17 rt 12/04 14:34 Order name: BNP; Complete Time: 19:17 rt 12/04 15:38 Order name: Ghost Lactate-NO COLLECT Timer; Complete Time: 19:17 EDMS 12/04 19:14 Order name: Lactate Sepsis 2 HR Follow-up; Complete Time: 19:17 EDMS 12/04 22:04 Order name: Lactate w/ 2H reflex if indic.; Complete Time: 13:18 EDMS 12/04 22:04 Order name: CBC with Automated Diff EDMS 12/04 22:04 Order name: CBC with Automated Diff; Complete Time: 13:18 EDMS 12/04 22:04 Order name: CBC with Automated Diff EDMS 12/04 22:04 Order name: CBC with Automated Diff EDMS 12/04 22:04 Order name: Comprehensive Metabolic Panel EDMS 12/04 22:04 Order name: Comprehensive Metabolic Panel; Complete Time: 13:18 EDMS 12/04 22:04 Order name: Comprehensive Metabolic Panel EDMS 12/04 22:04 Order name: Comprehensive Metabolic Panel EDMS 12/04 22:04 Order name: Troponin High Sensitivity EDMS 12/04 22:04 Order name: Troponin High Sensitivity; Complete Time: 13:18 EDMS 12/04 22:04 Order name: Troponin High Sensitivity; Complete Time: 13:18 EDMS 12/04 22:04 Order name: Troponin High Sensitivity EDMS 12/04 22:09 Order name: High Sensitivity-CRP EDMS 12/04 22:09 Order name: Procalcitonin; Complete Time: 13:18 EDMS 12/04 22:12 Order name: Thyroid Stimulating Hormone; Complete Time: 13:18 EDMS 12/05 07:56 Order name: C-Reactive Protein; Complete Time: 13:18 EDMS 12/05 08:58 Order name: Gram Stain--Aerobic Bottle EDMS 12/04 14:34 Order name: Chest Single View XRAY; Complete Time: 15:29 rt 12/04 15:53 Order name: CT Head Brain wo Cont; Complete Time: 16:27 rt 12/04 22:14 Order name: Renal Ultrasound-Complete; Complete Time: 13:18 EDMS 12/04 14:34 Order name: EKG; Complete Time: 14:34 rt 12/04 22:04 Order name: Patient Safety Orders EDOH 12/04 22:04 Order name: CONS Physician Consult EDMS 12/04 14:34 Order name: Accucheck; Complete Time: 15:53 rt 12/04 14:34 Order name: Cardiac monitoring; Complete Time: 14:34 rt 12/04 14:34 Order name: EKG - Nurse/Tech; Complete Time: 15:50 rt 12/04 14:34 Order name: IV Saline Lock - Large Bore; Complete Time: 15:50 rt 12/04 14:34 Order name: Labs collected and sent; Complete Time: 15:50 rt 12/04 14:34 Order name: O2 Per Protocol; Complete Time: 14:34 rt 12/04 14:34 Order name: O2 Sat Monitoring; Complete Time: 14:34 rt 12/04 14:34 Order name: Vital Signs; Complete Time: 14:34 rt 12/04 15:32 Order name: Labs - recollect needed: recollect green blue and lavender top; Complete bd Time: 17:34 12/04 17:46 Order name: Labs - recollect needed: recollect green,lavender and blue and redmond top; bd Complete Time: 18:33 EC:53 Rate is 94 beats/min. Rhythm is regular, Normal Sinus Rhythm with No ectopy. QRS [place] rt is Normal. ME interval is normal. QRS interval is normal. QT interval is normal. No Q waves. No ST changes noted. Interpreted by me. Administered Medications: 16:26 Not Given (Duplicate Order): [id number] mg PO once rt 16:27 Drug: NS 0.9% IV 1000 ml IV at 1000 ml once; to be given as a bolus over 60 minutes ap3 Route: IV; Rate: 1000 ml; Site: right antecubital; 22:18 Follow up: Response: No adverse reaction; IV Status: Completed infusion cp4 16:27 Drug: Cefepime IVPB 2 grams IVPB at 200 ml/hr once over 30 mins; (mix in NS 100 mL) ap3 Route: IVPB; Rate: 200 ml/hr; Infused Over: 30 mins; Site: right wrist; 22:25 Follow up: IV Status: Completed infusion cp4 18:02 Drug: Acetaminophen ME Suppository 650 mg ME once Route: ME; ap3 22:18 Follow up: Response: No adverse reaction cp4 Disposition Summary: 12/04/24 20:00 Hospitalization Ordered Notes: Hospitalization Status: Inpatient Admission rt Provider: Chucky Arteaga rt Condition: Fair rt Problem: new rt Symptoms: have improved rt Bed/Room Type: Standard rt Location: Telemetry/MedSurg (Inpatient)(12/05/24 17:55) vk Room Assignment: [facility](12/05/24 17:55) vk Diagnosis - Pneumonia, unspecified organism rt - CHF exacerbation rt - Severe sepsis rt Forms: - Medication Reconciliation Form rt - SBAR form rt - Leadership Thank You Letter rt Critical care time excluding procedures: 20:00 Critical care time: Bedside Care: 30 minutes, Consultation: 5 minutes. Total time: 35 rt minutes Signatures: Dispatcher [employer] EDMS Destinee Sy Kimberly RN Emerald Wood RN RN [email or web address] Shaylee New RN RN Shakir Huertas MD MD rt Lydia Ceron rv1 Fanta Luis Christina cp4 Corrections: (The following items were deleted from the chart) 22:09 22:04 Urinalysis w/ reflexes ordered. EDOH EDOH 22:09 20:00 rt kl 22:42 20:00 Telemetry/MedSurg (Inpatient) rt rv1 22:42 22:09 403 kl rv1 22:54 22:42 Intensive Care Unit rv1 vc1 22:54 22:42 rv1 vc1 12/05 17:55 03 22:54 [facility] ER HOLD vc1 vk 12/05 17:55 03 22:54 ERHOLD- vc1 vk
[2024-12-04] MEDS ORDERED: ONDANSETRON 4 MG/2 ML VIAL IV PRN (21:51)
[2024-12-04] MEDS: D5W 1,000 ML IV SCH (22:00)
--- NOTE | 2024-12-04 22:27 | P.HP ---
Patient History Date of Service: 12/05/24 History of Present Illness: Is a 74-year-old -Tongan male with a past medical history of COPD, A- fib, CAD, diabetes, hypertension presenting with acute metabolic encephalopathy with superimposed severe sepsis. Unable to obtain history via bedside. Patient was brought in via EMS. His speech is mumbled. Per chart review he is from a alf and this morning was found incoherent and altered. Vitals with increased respiratory rate and a fever of 100.7. Workup in the ED is concerning for sepsis. Allergies Penicillins Adverse Reaction (Verified 01/24/23 22:00) Hives Home Medications: Ascorbic Acid [Vitamin C] 500 mg PO DAILY 01/30/24 Aspirin [Aspirin EC] 81 mg PO DAILY 01/30/24 Atorvastatin Calcium [Lipitor*] 80 mg PO BEDTIME 01/30/24 Cyanocobalamin (Vitamin B-12) [Vitamin B-12] 1,000 mcg PO DAILY 01/30/24 Empagliflozin [Jardiance] 25 mg PO DAILY 01/30/24 Ferrous Sulfate 324 mg PO DAILY 01/30/24 Sennosides [Senna] 8.6 mg PO DAILY 01/30/24 Ergocalciferol (Vitamin D2) [Vitamin D2] 50,000 unit PO EVERY 7TH DAY 05/09/24 Melatonin 5 mg PO BEDTIME 05/09/24 Metoprolol Succinate [Toprol Xl*] 50 mg PO BEDTIME 05/09/24 Gabapentin [Neurontin*] 100 mg PO TID #90 cap 05/10/24 Vits A and D/White Pet/Lanolin [A and D Ointment] 1 laquita TP BID #1 tube 05/10/24 Hydralazine [Apresoline*] 25 mg PO TID 30 Days #90 tab 08/24/24 Sildenafil Citrate [Revatio*] 20 mg PO BID 30 Days #60 tab 08/24/24 Amiodarone HCl [Cordarone*] 200 mg PO BID #60 tab 11/20/24 Apixaban [Eliquis *] 2.5 mg PO BID #60 tab 11/20/24 Calcitrol [Rocaltrol*] 0.25 mcg PO Q48H #15 cap 11/20/24 Fluocinonide [Lidex] 1 appl TOP BID #1 tube 11/20/24 Mupirocin Oint [Bactroban 2% Ointment*] 1 appl TOP DAILY #1 tube 11/20/24 Bumetanide [Bumex] 1 mg PO DAILY #30 tab 11/23/24 - Past Medical/Surgical History Diabetic: Yes -: hypertension -: hyperlipidemia -: Atrial fibrillation -: IDDM -: Coronary artery disease -: Aortic stenosis -: CHF-diastolic -: Severe pulmonary hypertension -: CKD 4 -: Cardiac Catheterization with stent placement -: Right leg surgery Psychosocial/ Personal History: Patient is , lives at home with family - Family History Brother -: Heart disease, Hypertension - Social History Alcohol use: No CD- Drugs: No Caffeine use: No Review of Systems is unable to be obtained Physical Examination - Physical Exam General: Delirious HEENT: Normocephalic Neck: Supple Respiratory: Clear to auscultation bilaterally Cardiovascular: No edema, Normal pulses Gastrointestinal: Normal bowel sounds Musculoskeletal: Other (Bilateral feet wrapped in Kerlix) Integumentary: No rashes Neurological: Abnormal speech - Studies Laboratory Data (last 24 hrs) 12/04/24 12/04/24 12/04/24 18:30 18:30 18:30 WBC 16.10 H Hgb 13.0 L Hct 42.7 Plt Count 407 H PT 19.8 H INR 1.79 APTT 42.6 H Sodium 148 H Potassium 4.6 BUN 86 H Creatinine 5.20 H Glucose 131 H Total Bilirubin 0.7 AST 36 ALT 21 Alkaline Phosphatase 59 Assessment and Plan - Plan Severe sepsis Acute metabolic encephalopathy Acute kidney injury on CKD stage IV Elevated troponin Heart failure with preserved ejection with exacerbation Hypernatremia Insulin-dependent diabetes Hyperlipidemia Hypertension CAD COPD Admit to ICU Leukocytosis with left shift alongside elevated lactic and acute kidney injury Received normal saline in the ED, start D5W, strict I's and O, place urinary catheter On 4 L nasal cannula Switch antibiotics to Merrem and vancomycin Blood cultures, CRP, procalcitonin all pending Monitor kidney function, nephrology consult Troponin elevated, no EKG change, possible demand ischemia Cardiology consult Monitor for fluid overload Echocardiogram Repeat sodium in the a.m. Patient on Eliquis however unable to take p.o. meds due to metabolic encephalopathy If patient mentation improved needs speech therapy eval for swallow - Advance Directives Does patient have a Living Will: No Does patient have a Durable POA for Healthcare: No
[2024-12-05] MEDS: VANCOMYCIN 1.75 GM in NA CHLORIDE 0.9% 500 ML IVPB ONE
--- NOTE | 2024-12-05 00:04 | RAD REPORT ---
EXAM: US Retroperitoneal Limited, Renal CLINICAL HISTORY: The patient is 74 years old and is Male; Sepsis with acute kidney injury TECHNIQUE: Real-time limited ultrasound of the retroperitoneum with image documentation. COMPARISON: No relevant prior studies available. FINDINGS: Examination is limited secondary to patient's altered mental status and inability to andressa ate. RIGHT KIDNEY: The right kidney measures 9.1 cm in length and is increased in echogenicity. There is no hydronephrosis. No stones. LEFT KIDNEY: The left kidney is not visualized secondary to patient inability to cooperate. BLADDER: The bladder is moderately distended. IMPRESSION: Echogenic right kidney which can be seen with medical renal disease. Electronically signed by: Claudia Carreon MD 12/05/2024 12:00 AM [facility] Due to temporary technical issues with the PACS/EnterMedia[employer] reporting system, reports are being signed by the in-house radiologist without review as a courtesy to ensure prompt reporting the interpreting radiologist is fully responsible for the content of the report. Transcribed Date/Time: 12/05/2024 12:03 AM
[2024-12-05 00:47] LABS: Thyroid Stimulating Hormone 2.24 uIU/mL (0.358-3.740)
[2024-12-05 00:49] LABS: Troponin High Sensitivity 250.2 pg/mL (<58.9)
[2024-12-05] MEDS: HEPARIN 5000 UNIT/ML 1 ML VIAL SQ SCH (01:00)
[2024-12-05] MEDS ORDERED: NA CHLORIDE 0.9% 500 ML ONE (01:33)
[2024-12-05] MEDS ORDERED: VANCOMYCIN 1 GM/VIAL ONE (01:33)
[2024-12-05] MEDS ORDERED: HEPARIN 5000 UNIT/ML 1 ML VIAL ONE ×3 (01:33→19:46)
[2024-12-05] MEDS ORDERED: D5W 1,000 ML IV ONE (01:34)
[2024-12-05 04:38] LABS: Absolute Basophils 0.1 K/uL (0-0.5); Absolute Lymphocytes (CBC) 1.1 K/uL (0.7-4.9); Absolute Monocytes 1.6 K/uL (0.1-1.3); Absolute Neutrophil 11.3 K/uL (1.8-8.0); Basophils % 0.4 % (0-1.3); Eosinophils % 0.3 % (0-4.4); Hematocrit 46.2 % (39.6-49.0); Hemoglobin 14.4 g/dL (13.6-17.9); Lymphocytes % 7.7 % (15.3-44.8); MCH 26.3 pg (27.0-35.0); MCHC 31.1 g/dL (32.0-36.0); MCV 84.4 fL (80-100); MPV 8.1 fL (7.6-11.3); Monocytes % 11.3 % (3.3-12.3); Neutrophils % 80.3 % (41.7-73.7); Platelets 373 thou/uL (152-406); RBC Red Blood Cell Count 5.47 M/uL (4.33-5.43); Red Cell Distribution Width 18.8 % (12.1-15.2)
[2024-12-05 05:05] LABS: Albumin 1.6 g/dL (3.4-5.0); Albumin/Globulin Ratio 0.2 (1.1-1.8); Anion Gap 11.4 mEq/L (5.0-15.0); Bilirubin Total 0.7 mg/dL (0.2-1.0); Globulin 6.5 g/dL (2.3-3.5); Potassium 4.4 mEq/L (3.5-5.1); Protein, Total 8.1 g/dL (6.4-8.2)
[2024-12-05] MEDS ORDERED: Meropenem 1,000 MG in NA CHLORIDE 0.9% 100 ML IV SCH (09:00)
[2024-12-05] MEDS ORDERED: Meropenem 500 MG in NA CHLORIDE 0.9% 100 ML IV SCH (09:00)
[2024-12-05] MEDS: D5 0.45 NS 1,000 ML IV SCH (11:00)
--- NOTE | 2024-12-05 12:01 | CON ---
Date of Consultation: 12/05/2024 Reason For Consultation: Elevated BUN and creatinine, electrolyte imbalance. History Of Present Illness: All the information has been obtained from the record as the patient is confused. This is a 74-year-old gentleman with significant past medical history of chronic kidney disease stage IIIB/IV, small size kidney, nonnephrotic range of proteinuria secondary to diabetes and cardiorenal, baseline creatinine around 2.3 with GFR 28, hypertension, hyperlipidemia, congestive heart failure with ejection fraction of 40% with aortic stenosis, CAD, the patient came to the hospital with altered mental status, decreased intake, and nausea and vomiting. The patient was found to have fever and possible sepsis. For that reason, the patient was admitted. The patient was found to have elevation in BUN, creatinine, creatinine 4.8 with GFR 12. For that reason, we have been consulted. Reviewing the record for the patient when discharged the patient 2 weeks ago, creatinine 3.7 and GFR at that time was 16. On senior living medication, there is no contrast. Past Medical History: Includes: 1. Diabetes, complicated with neuropathy and nephropathy. 2. Hyperlipidemia. 3. Congestive heart failure, ejection fraction of 40%. 4. CAD with aortic stenosis, complicated with congestive heart failure. 5. Chronic kidney disease stage IV, small size kidney, baseline creatinine 2 with GFR 28, secondary to diabetes and cardiorenal with chronic obstruction. Past Surgical History: Include cardiac cath, right knee surgery. Family History: Positive for hypertension and kidney disease. Home Medications: Include Revatio, metoprolol, insulin, ferrous sulfate, ergocalciferol, melatonin, gabapentin, hydralazine, sildenafil, amiodarone, calcitriol, mupirocin, and Bumex 1 mg. Social History: Lives in senior living. Denied smoking. Denied drinking. Denied drugs abuse. Review of Systems: Unobtainable. Physical Examination: General: When I saw the patient, the patient is lying in bed, confused. Vital Signs: Blood pressure 168/68, pulse of 80, afebrile. Chest: Clear to auscultation. Heart: S1, S2. Systolic murmur. Abdomen: Soft, nontender. Extremities: No edema. Neurologic: Alert, confused. Laboratory Data: Sodium 144, potassium 4.4, bicarb 19, BUN 81, creatinine 4.8, calcium 8.4, hemoglobin 14.4. Assessment And Plan: 1. Acute kidney injury secondary to prerenal, superimposed with Bumex use. Obstructive uropathy has been ruled out. I am going to go ahead and start the patient on hydration and we will monitor the patient. The patient used to refuse dialysis. We will follow up the patient depending on his improvement. 2. Hypertension, uncontrolled. Resume amlodipine with the presence of acute kidney injury. We will hold on Bumex and start the patient on beta-abbey. 3. Encephalopathy, possible uremia. We will start the patient on hydration and we will follow up. 4. Diabetes as by primary. time spent examining the patient [id number] reviewing data lab and the radiology placing order discussing the case with the patient discussing the case with the hat steamer including hospitalist and nursing staff more than 55-minute OSVALDO Voice ID: [id number] Report ID: [id number] SHANTANU
[2024-12-05] MEDS: CEFEPIME 1 GM in NA CHLORIDE 0.9% 100 ML IV SCH (15:00)
[2024-12-05] MEDS ORDERED: NA CHLORIDE 0.9% 100 ML ONE (15:32)
[2024-12-05] MEDS ORDERED: D5 0.45 NS 1,000 ML IV ONE (15:33)
[2024-12-05] MEDS ORDERED: CEFEPIME 1 GM/VIAL ONE (15:33)
--- NOTE | 2024-12-05 17:23 | P.PN ---
Subjective Date of Service: 12/05/24 Patient remain confused. Low-grade fever with temp up to 100.7 recorded in the ED. No more fever. Patient maintained on 3 L oxygen by nasal cannula. Physical Examination - Vital Signs Temperature: 98.8 F Blood Pressure: 146/64 Pulse: 80 Respirations: 18 Pulse Ox (%): 92 - Studies Laboratory Data (last 24 hrs) 12/04/24 12/04/24 12/04/24 18:30 18:30 18:30 WBC 16.10 H Hgb 13.0 L Hct 42.7 Plt Count 407 H PT 19.8 H INR 1.79 APTT 42.6 H Sodium 148 H Potassium 4.6 BUN 86 H Creatinine 5.20 H Glucose 131 H Total Bilirubin 0.7 AST 36 ALT 21 Alkaline Phosphatase 59 Microbiology Data (last 24 hrs): 12/04/24 14:52 Blood - Blood Anaerobic Blood Culture - Final 12/04/24 15:02 Blood - Blood Anaerobic Blood Culture - Final Assessment And Plan - Plan Diagnosis KAITLIN on CKD 4 with hyperkalemia/uremia Metabolic encephalopathy secondary to above Sepsis Chronic diastolic congestive heart failure CAD with previous stents Severe pulmonary hypertension Atrial fibrillation on chronic anticoagulation Diabetes mellitus type 2insulin-dependent Hypertension Hyperlipidemia Plan: Sepsis Patient had low-grade fever with associated leukocytosis Elevated CRP. Chronic bilateral lower extremity dermatitis could be source of sepsis. IV antibiotics-vancomycin and cefepime. Renally dose antibioticss Follow cultures KAITLIN on CKD 4 with hyperkalemia/uremia Metabolic encephalopathy secondary to above Patient has consistently refused dialysis Nephrology Dr. Mitchell input appreciated. Renal u/s (11/12): no hydro. echogenic renal cortex bilaterally. Altered mental status likely secondary to uremia. Serum creatinine is worse. IV hydration per Dr. Mitchell. Case discussed with Dr. Mitchell. Patient has very poor prognosis if he does not undergo dialysis. Patient may be a candidate for hospice. Acute chronic diastolic congestive heart failure CAD with previous stents Severe pulmonary hypertension Volume overload secondary to CKD. CXR suggest pulmonary edema. Patient need dialysis however he has refused dialysis several times. Monitor Atrial fibrillation on chronic anticoagulation with rapid ventricular response Cardiology is following s/p amio drip (11/16-11/17); transition to oral amio 200 mg BID (11/17) continue oral amio and metoprolol and Eliquis if awake enough for oral intake. IDDM2 ACHS Accu-Chek, SSI Essential hypertension Metoprolol once patient can tolerate p.o. Hydralazine as needed for BP spikes Advanced directive: full code DVT prophylaxis: Heparin subQ for now
--- NOTE | 2024-12-05 17:43 | P.CNS ---
Date of Consult: 12/05/24 Chief Complaint: elevated troponin History of Present Illness: Patient with PMH of CAD, chronic diastolic heart failure, AF, CKD presented with AMS, unable to walk, N&V, decrease po intake, very poor condition, patient is laying in bed, weak, denies chest pain, no palpitations, no syncope. Allergies Penicillins Adverse Reaction (Verified 01/24/23 22:00) Hives Home medications list reviewed: Yes Home Medications: Ascorbic Acid [Vitamin C] 500 mg PO DAILY 01/30/24 Aspirin [Aspirin EC] 81 mg PO DAILY 01/30/24 Atorvastatin Calcium [Lipitor*] 80 mg PO BEDTIME 01/30/24 Cyanocobalamin (Vitamin B-12) [Vitamin B-12] 1,000 mcg PO DAILY 01/30/24 Empagliflozin [Jardiance] 25 mg PO DAILY 01/30/24 Ferrous Sulfate 324 mg PO DAILY 01/30/24 Sennosides [Senna] 8.6 mg PO DAILY 01/30/24 Ergocalciferol (Vitamin D2) [Vitamin D2] 50,000 unit PO EVERY 7TH DAY 05/09/24 Melatonin 5 mg PO BEDTIME 05/09/24 Metoprolol Succinate [Toprol Xl*] 50 mg PO BEDTIME 05/09/24 Gabapentin [Neurontin*] 100 mg PO TID #90 cap 05/10/24 Vits A and D/White Pet/Lanolin [A and D Ointment] 1 laquita TP BID #1 tube 05/10/24 Hydralazine [Apresoline*] 25 mg PO TID 30 Days #90 tab 08/24/24 Sildenafil Citrate [Revatio*] 20 mg PO BID 30 Days #60 tab 08/24/24 Amiodarone HCl [Cordarone*] 200 mg PO BID #60 tab 11/20/24 Apixaban [Eliquis *] 2.5 mg PO BID #60 tab 11/20/24 Calcitrol [Rocaltrol*] 0.25 mcg PO Q48H #15 cap 11/20/24 Fluocinonide [Lidex] 1 appl TOP BID #1 tube 11/20/24 Mupirocin Oint [Bactroban 2% Ointment*] 1 appl TOP DAILY #1 tube 11/20/24 Bumetanide [Bumex] 1 mg PO DAILY #30 tab 11/23/24 - Past Medical/Surgical History Diabetic: Yes -: hypertension -: hyperlipidemia -: Atrial fibrillation -: IDDM -: Coronary artery disease -: Aortic stenosis -: CHF-diastolic -: Severe pulmonary hypertension -: CKD 4 -: Cardiac Catheterization with stent placement -: Right leg surgery Psychosocial/ Personal History: Patient is , lives at home with family - Family History Brother Medical History: Heart disease, Hypertension - Social History Smoking Status: Former smoker Alcohol use: No CD- Drugs: No Caffeine use: No Review of Systems 10-point ROS is otherwise unremarkable Physical Examination Temp Pulse Resp BP Pulse Ox 98.8 F 80 18 146/64 H 92 12/05/24 17:35 12/05/24 17:35 12/05/24 17:35 12/05/24 17:35 12/05/24 17:35 General: Alert, In no apparent distress HEENT: Atraumatic, PERRLA, Mucous membr. moist/pink, EOMI, Sclerae nonicteric Neck: Supple, 2+ carotid pulse no bruit, No LAD, Without JVD or thyroid abnormality Respiratory: Clear to auscultation bilaterally, Normal air movement Cardiovascular: Regular rate/rhythm, Normal S1 S2 Gastrointestinal: Normal bowel sounds, No tenderness Musculoskeletal: No tenderness Integumentary: No rashes Neurological: Normal gait, Normal speech, Normal tone, Normal affect Lymphatics: No axilla or inguinal lymphadenopathy Laboratory Data (last 24 hrs) 12/04/24 12/04/24 12/04/24 18:30 18:30 18:30 WBC 16.10 H Hgb 13.0 L Hct 42.7 Plt Count 407 H PT 19.8 H INR 1.79 APTT 42.6 H Sodium 148 H Potassium 4.6 BUN 86 H Creatinine 5.20 H Glucose 131 H Total Bilirubin 0.7 AST 36 ALT 21 Alkaline Phosphatase 59 - Problems (1) Type 2 ME (myocardial infarction) Current Visit: Yes Status: Acute Plan: Patient got mild elevated troponin that is trending down, most likely type 2 ME from KAITLIN and sepsis, patient denies chest pain. ASA 81 mg daily continue Toprol XL 25 mg daily (2) Chronic diastolic heart failure Current Visit: Yes Status: Acute Plan: patient looks euvolemic on exam with KAITLIN on CKD, agree with holding Bumex and gentle Hydration. (3) Afib Current Visit: No Status: Chronic Plan: resume Amiodarone 200 mg po BID resume Eliquis 2.5 mg po BID continue to monitor on tele. Qualifiers:
[2024-12-06] MEDS: HYDRALAZINE HCL 20 MG/ML VIAL IV ONE (01:00)
[2024-12-06] MEDS: HYDRALAZINE HCL 20 MG/ML VIAL ONE (02:04)
[2024-12-06 06:32] LABS: Absolute Eosinophils 0.3 K/uL (0-0.5); Absolute Lymphocytes (CBC) 0.8 K/uL (0.7-4.9); Absolute Monocytes 1.4 K/uL (0.1-1.3); Absolute Neutrophil 9.8 K/uL (1.8-8.0); Basophils % 0.3 % (0-1.3); Eosinophils % 2.3 % (0-4.4); Hematocrit 39.3 % (39.6-49.0); Hemoglobin 12.4 g/dL (13.6-17.9); Lymphocytes % 6.8 % (15.3-44.8); MCH 26.5 pg (27.0-35.0); MCHC 31.5 g/dL (32.0-36.0); MPV 8.1 fL (7.6-11.3); Monocytes % 10.9 % (3.3-12.3); Neutrophils % 79.7 % (41.7-73.7); Nucleated Red Blood Cells % 0.3 % (0-0); Platelets 371 thou/uL (152-406); RBC Red Blood Cell Count 4.67 M/uL (4.33-5.43); Red Cell Distribution Width 18.4 % (12.1-15.2)
[2024-12-06 06:33] LABS: Albumin 1.4 g/dL (3.4-5.0); Albumin/Globulin Ratio 0.2 (1.1-1.8); Anion Gap 11.1 mEq/L (5.0-15.0); Bilirubin Total 0.6 mg/dL (0.2-1.0); Globulin 5.7 g/dL (2.3-3.5); Phosphorus 3.6 mg/dL (2.5-4.9); Potassium 4.1 mEq/L (3.5-5.1); Protein, Total 7.1 g/dL (6.4-8.2)
[2024-12-06] MEDS ORDERED: VANCOMYCIN 500 MG in NA CHLORIDE 0.9% 100 ML IVPB SCH (09:00)
[2024-12-06] MEDS: D5W 1,000 ML IV SCH (13:02)
[2024-12-06] MEDS: THIAMINE 200 MG/2 ML INJ IVP SCH (13:02)
[2024-12-06 13:07] LABS: Anion Gap 13.5 mEq/L (5.0-15.0); Potassium 4.5 mEq/L (3.5-5.1)
--- NOTE | 2024-12-06 13:25 | P.PN ---
Subjective Date of Service: 12/06/24 Chief Complaint: elevated troponin Patient is confused. He is coughing. No recorded fever today. Patient maintained on 3 L oxygen by nasal cannula. Physical Examination - Vital Signs Temperature: 98.6 F Blood Pressure: 124/57 Pulse: 90 Respirations: 14 Pulse Ox (%): 90 - Studies Microbiology Data (last 24 hrs): 12/04/24 15:02 Blood - Blood Anaerobic Blood Culture - Final 12/04/24 14:52 Blood - Blood Anaerobic Blood Culture - Final Assessment And Plan - Plan Physical examination General: Confused, NAD. HEENT: Conjunctiva not pale, anicteric sclera Neck: Supple, no elevated JVD Heart: Heart sounds 1 and 2 normal, regular rhythm, normal rate, no pedal edema Lungs: Bibasilar crackles, adequate breath sounds bilaterally, no rhonchi. Abdomen: Soft, nondistended, nontender, normal bowel sounds. Extremities: No tenderness, no deformity Skin: Normal skin turgor, bilateral lower extremity venous dermatitis, and scaly lesions. Neuro: Confused, he moves all extremities. No focal motor deficit. Psychiatry: Confused, restless Diagnosis KAITLIN on CKD 4 with hyperkalemia/uremia Metabolic encephalopathy secondary to above Sepsis Chronic diastolic congestive heart failure CAD with previous stents Severe pulmonary hypertension Atrial fibrillation on chronic anticoagulation Diabetes mellitus type 2insulin-dependent Hypertension Hyperlipidemia Plan: Sepsis Patient had low-grade fever with associated leukocytosis Elevated CRP. Leukocytosis is improving. 1 blood culture bottles growing gram-positive cocci in clusters. Chronic bilateral lower extremity dermatitis could be source of sepsis. Continue IV vancomycin and cefepime for now Renally dose antibioticss Follow cultures KAITLIN on CKD 4 with hyperkalemia/uremia Metabolic encephalopathy secondary to above Patient has consistently refused dialysis Nephrology Dr. Mitchell input appreciated. Renal u/s (11/12): no hydro. echogenic renal cortex bilaterally. Altered mental status likely secondary to uremia. Serum creatinine is worse. IV hydration per Dr. Mitchell. Case discussed with Dr. Mitchell. Patient has very poor prognosis if he does not undergo dialysis. Patient's current clinical condition, his wishes and goals of care discussed with his . Patient's wants to honor patient wishes and receptive of hospice. Social service consulted for hospice evaluation. Acute chronic diastolic congestive heart failure CAD with previous stents Severe pulmonary hypertension Volume overload secondary to CKD. CXR suggest pulmonary edema. Patient need dialysis however he has refused dialysis several times. She is a service consulted to evaluate for hospice. Atrial fibrillation on chronic anticoagulation with rapid ventricular response Cardiology is following s/p amio drip (11/16-11/17); transition to oral amio 200 mg BID (11/17) continue oral amio and metoprolol and Eliquis if awake enough for oral intake. IDDM2 ACHS Accu-Chek, SSI Essential hypertension Blood pressures is fluctuating. Metoprolol once patient can tolerate p.o. Hydralazine as needed for BP spikes. Hypernatremia Probably secondary to dehydration. Nephrology is following and managing. Advanced directive: full code. Ongoing discussion with regarding DNR. DVT prophylaxis: Heparin subQ for now
[2024-12-06] MEDS ORDERED: FENTANYL CITR 100 MCG/2 ML IV PRN (13:41)
[2024-12-06] MEDS: HYDROCODONE/APAP 5/325 MG TAB PO PRN (14:30)
--- NOTE | 2024-12-06 22:42 | PN ---
Date of Progress Note: 12/06/2024 Chief Complaint: Acute on chronic kidney injury and electrolyte imbalance. Subjective: Patient is a 74-year-old man who was admitted to the hospital because of confusion, history of chronic kidney disease stage 3B/4, small sized kidney, non-nephrotic range proteinuria secondary to diabetes mellitus, cardiorenal syndrome. Baseline creatinine 2.3, GFR 28. He has also hypertension, hyperlipidemia, congestive heart failure with ejection fraction of 40% and aortic stenosis, coronary artery disease. The patient came to the hospital because of decreased p.o. intake, nausea, vomiting, altered mental status, confusion. The patient was found to have fever and workup for sepsis is started. Nephrology consulted for acute kidney injury. Serum creatinine was up to 4.8 upon admission. BUN was elevated. The patient is long term resident. There was no recent history of nonsteroidal anti-inflammatory medication treatment and he denies contrast. Past Medical History: Diabetes mellitus with peripheral neuropathy, nephropathy, hyperlipidemia, congestive heart failure, ejection fraction 40%, coronary artery disease without stenosis, congestive heart failure, chronic kidney disease stage 4. Review of Systems: Denies chest pain, palpitation. Physical Examination: Lungs: Clear to auscultation bilaterally. Heart: S1, S2. Abdomen: Soft, benign. Extremities: No edema. Impression/plan: 1. Acute kidney injury secondary to prerenal azotemia, acute tubular necrosis, obstructive uropathy is working diagnosis. The patient had bladder retention, although he was able to void. Plan is to monitor bladder scan and insert Mayorga catheter. 2. Hypertension, uncontrolled. Monitor blood pressure and continue bp meds, beta-abbey will be started. 3. Encephalopathy, metabolic encephalopathy, further work -up pending. 4. Diabetes mellitus, monitor blood glucose, continue Insulin per sliding scale. Recommend to avoid metformin. EB/MODL Voice ID: [id number] Report ID: [id number] SHANTANU
[2024-12-07 05:26] LABS: Absolute Basophils 0.1 K/uL (0-0.5); Absolute Eosinophils 0.4 K/uL (0-0.5); Absolute Lymphocytes (CBC) 0.9 K/uL (0.7-4.9); Absolute Monocytes 1.2 K/uL (0.1-1.3); Absolute Neutrophil 9.4 K/uL (1.8-8.0); Basophils % 0.5 % (0-1.3); Eosinophils % 3.2 % (0-4.4); Hematocrit 38.6 % (39.6-49.0); Hemoglobin 12.2 g/dL (13.6-17.9); Lymphocytes % 7.9 % (15.3-44.8); MCH 26.3 pg (27.0-35.0); MCHC 31.5 g/dL (32.0-36.0); MCV 83.5 fL (80-100); MPV 8.1 fL (7.6-11.3); Neutrophils % 78.4 % (41.7-73.7); Nucleated Red Blood Cells % 0.1 % (0-0); Platelets 385 thou/uL (152-406); RBC Red Blood Cell Count 4.62 M/uL (4.33-5.43); Red Cell Distribution Width 18.2 % (12.1-15.2)
[2024-12-07 05:43] LABS: Albumin 1.4 g/dL (3.4-5.0); Anion Gap 11.3 mEq/L (5.0-15.0); Potassium 4.3 mEq/L (3.5-5.1)
[2024-12-07] MEDS: LABETALOL 20 MG/4ML SYRINGE IV ONE (06:28)
[2024-12-07] MEDS ORDERED: VANCOMYCIN 1 GM in NA CHLORIDE 0.9% 250 ML IVPB SCH (08:00)
--- NOTE | 2024-12-07 10:03 | PN ---
Date of Progress Note: 12/07/2024 Subjective: The patient was admitted to the hospital with uremic symptoms and progression of kidney disease. On previous admission, he refused dialysis. The patient had altered mental status. I spoke with the family. Family is still debating about no dialysis and possible hospice. The patient is still obtunded. Physical Examination: Vital Signs: Blood pressure 154/73, pulse of 80, afebrile. Chest: Faint rales on the left base. Heart: S1, S2. Systolic murmur. Abdomen: Soft, nontender. Extremities: Dressing on both legs. Trace edema. Neuro: Confused, obtunded. Laboratory Data: WBC 12, hemoglobin 12.2. Sodium 153, potassium 4.3, bicarb 22, BUN 68, creatinine 3.9, trending down. Calcium 8.4, phosphorus 3, albumin 1.4. Current Medications: The patient is on include: 1. Cefepime. 2. Vancomycin. 3. Zofran. 4. Fentanyl. 5. Thiamine. Assessment And Plan: 1. Acute kidney injury on advanced chronic kidney disease secondary to over diuresis with uremic symptoms, refusing dialysis. Family debating about possible hospice. I am going to continue hydrating and we will monitor the patient. Family understand risks, benefits, alternatives. 2. Hypertension, controlled, not optimal. We will continue to monitor. We will place the patient on nitroglycerin patch and we will follow up. 3. Hypernatremia, depletional, secondary to over diuresis and poor intake. We will bolus the patient with D5 and we will increase IV fluid to 125. The patient's total water deficit of 4 L and sensible loss around 500 and the patient had urine output of 1 L, so total water need around 5.5. As I mentioned, we will bolus the patient with 1 L and we will increase to 125. We will follow up. 4. Cellulitis, foot infection. Continue current antibiotic. Follow up with primary. 5. Encephalopathy, possible uremic/metabolic. We will follow up with Primary. The patient's family is still refusing dialysis. time spent examining the patient [id number] reviewing data lab and the radiology placing order discussing the case with the patient discussing the case with the steam tender including hospitalist and nursing staff more than 55-minute OSVALDO Voice ID: [id number] Report ID: [id number] MTDD
[2024-12-07] MEDS: D5W 1,000 ML IV SCH ×2 (10:22→10:23)
--- NOTE | 2024-12-07 13:27 | P.PN ---
Subjective Date of Service: 12/07/24 Chief Complaint: elevated troponin No major changes from yesterday. Patient remained confused. No recorded fever. He is not tolerating p.o. Physical Examination - Vital Signs Temperature: 97.6 F Blood Pressure: 160/78 Pulse: 87 Respirations: 20 Pulse Ox (%): 90 - Studies Microbiology Data (last 24 hrs): 12/04/24 15:02 Blood - Blood Aerobic Blood Culture - Final Staph Epidermidis 12/04/24 15:02 Blood - Blood Blood Culture Gram Stain - Final 12/04/24 15:02 Blood - Blood Anaerobic Blood Culture - Final Assessment And Plan - Plan Physical examination General: Confused, NAD. HEENT: Anicteric sclera Neck: Supple, no elevated JVD Heart: Heart sounds 1 and 2 normal, regular rhythm, normal rate, no pedal edema Lungs: Bibasilar crackles, adequate breath sounds bilaterally, no rhonchi. Abdomen: Soft, nondistended, nontender, normal bowel sounds. Skin: Normal skin turgor, bilateral lower extremity venous dermatitis and scaly lesions. Neuro: Confused, he moves all extremities. No focal motor deficit. Psychiatry: Confused, lethargic. Diagnosis KAITLIN on CKD 4 with hyperkalemia/uremia Metabolic encephalopathy secondary to above Sepsis Chronic diastolic congestive heart failure CAD with previous stents Severe pulmonary hypertension Atrial fibrillation on chronic anticoagulation Diabetes mellitus type 2insulin-dependent Hypertension Hyperlipidemia Plan: Sepsis Patient had low-grade fever with associated leukocytosis Elevated CRP. Leukocytosis is improving. 1 blood culture bottles growing gram-positive cocci in clusters. Chronic bilateral lower extremity dermatitis could be source of sepsis. Continue IV vancomycin and cefepime for now Renally dose antibioticss Follow cultures KAITLIN on CKD 4 with hypernatremia Metabolic encephalopathy secondary to above Patient has consistently refused dialysis Nephrology Dr. Mitchell input appreciated. Renal u/s (11/12): no hydro. echogenic renal cortex bilaterally. Altered mental status likely secondary to uremia. Serum creatinine is worse. IV hydration per Dr. Mitchell. Case discussed with Dr. Mitchell. Patient has very poor prognosis if he does not undergo dialysis. Patient's current clinical condition, his wishes and goals of care discussed with his . Patient's wants to honor patient wishes and receptive of hospice. Social service consulted for hospice evaluation. Acute chronic diastolic congestive heart failure CAD with previous stents Severe pulmonary hypertension Volume overload secondary to CKD. CXR suggest pulmonary edema. Patient need dialysis however he has refused dialysis several times. She is a service consulted to evaluate for hospice. Atrial fibrillation on chronic anticoagulation with rapid ventricular response Cardiology is following s/p amio drip (11/16-11/17); transition to oral amio 200 mg BID (11/17) continue oral amio and metoprolol and Eliquis if awake enough for oral intake. IDDM2 ACHS Accu-Chek, SSI Essential hypertension Blood pressures is fluctuating. Metoprolol once patient can tolerate p.o. Hydralazine as needed for BP spikes. Hypernatremia Probably secondary to dehydration. Nephrology is following and managing. 12/07 Nephrology input appreciated. Patient is on IV D5 water for hypernatremia Continue to monitor BMP 1 out of 4 blood culture bottles growing Staph epidermidis. This is likely skin contaminant Continue antibiotics for now given sepsis. Ongoing discussion with family regarding DNR and hospice as patient has refused dialysis. No hyperkalemia as of now. Patient had hyperkalemia during his previous admission. Nephrology to follow. Advanced directive: full code. Ongoing discussion with regarding DNR. DVT prophylaxis: Heparin subQ for now
[2024-12-07] MEDS: VANCOMYCIN 1 GM in NA CHLORIDE 0.9% 250 ML IVPB SCH (21:37)
[2024-12-08 05:29] LABS: Absolute Basophils 0.1 K/uL (0-0.5); Absolute Eosinophils 0.4 K/uL (0-0.5); Absolute Lymphocytes (CBC) 1.1 K/uL (0.7-4.9); Absolute Monocytes 1.1 K/uL (0.1-1.3); Absolute Neutrophil 7.4 K/uL (1.8-8.0); Basophils % 0.9 % (0-1.3); Eosinophils % 3.5 % (0-4.4); Hematocrit 37.2 % (39.6-49.0); Hemoglobin 11.6 g/dL (13.6-17.9); Lymphocytes % 11.3 % (15.3-44.8); MCH 26.2 pg (27.0-35.0); MCHC 31.1 g/dL (32.0-36.0); MCV 84.3 fL (80-100); MPV 7.6 fL (7.6-11.3); Neutrophils % 73.3 % (41.7-73.7); Platelets 400 thou/uL (152-406); RBC Red Blood Cell Count 4.42 M/uL (4.33-5.43); Red Cell Distribution Width 18.1 % (12.1-15.2)
[2024-12-08 05:52] LABS: Albumin 1.4 g/dL (3.4-5.0); Anion Gap 11.3 mEq/L (5.0-15.0); Phosphorus 2.4 mg/dL (2.5-4.9); Potassium 4.3 mEq/L (3.5-5.1)
[2024-12-08] MEDS: CLONIDINE 0.2 MG/PATCH TD SCH (10:30)
--- NOTE | 2024-12-08 14:27 | P.PN ---
Subjective Date of Service: 12/08/24 Chief Complaint: elevated troponin Patient is more awake today however still quite confused No recorded fever. He is currently tolerating manage oxygen by nasal cannula. Pulmonary tried to feed him but patient was pocketing food in his mouth. Physical Examination - Vital Signs Temperature: 98.1 F Blood Pressure: 150/72 Pulse: 86 Respirations: 24 Pulse Ox (%): 90 - Studies Microbiology Data (last 24 hrs): 12/04/24 15:02 Blood - Blood Aerobic Blood Culture - Final Staph Epidermidis 12/04/24 15:02 Blood - Blood Blood Culture Gram Stain - Final 12/04/24 15:02 Blood - Blood Anaerobic Blood Culture - Final Assessment And Plan - Plan Physical examination General: Confused, NAD. Neck: Supple, no elevated JVD Heart: Heart sounds 1 and 2 normal, regular rhythm, normal rate, no pedal edema Lungs: Bibasilar crackles, adequate breath sounds bilaterally, no rhonchi. Abdomen: Soft, nondistended, nontender, normal bowel sounds. Skin: Bilateral lower extremity venous dermatitis and scaly lesions. Neuro: Confused, No focal motor deficit. Psychiatry: Confused, lethargic. Diagnosis KAITLIN on CKD 4 with hyperkalemia/uremia Metabolic encephalopathy secondary to above Sepsis Chronic diastolic congestive heart failure CAD with previous stents Severe pulmonary hypertension Atrial fibrillation on chronic anticoagulation Diabetes mellitus type 2insulin-dependent Hypertension Hyperlipidemia Plan: Sepsis Patient had low-grade fever with associated leukocytosis Elevated CRP. Leukocytosis is improving. 1 blood culture bottles growing gram-positive cocci in clusters. Chronic bilateral lower extremity dermatitis could be source of sepsis. Continue IV vancomycin and cefepime for now Renally dose antibioticss Follow cultures KAITLIN on CKD 4 with hypernatremia Metabolic encephalopathy secondary to above Patient has consistently refused dialysis Nephrology Dr. Mitchell input appreciated. Renal u/s (11/12): no hydro. echogenic renal cortex bilaterally. Altered mental status likely secondary to uremia. Serum creatinine is worse. IV hydration per Dr. Mitchell. Case discussed with Dr. Mitchell. Patient has very poor prognosis if he does not undergo dialysis. Patient's current clinical condition, his wishes and goals of care discussed with his . Patient's wants to honor patient wishes and receptive of hospice. Social service consulted for hospice evaluation. Acute chronic diastolic congestive heart failure CAD with previous stents Severe pulmonary hypertension Volume overload secondary to CKD. CXR suggest pulmonary edema. Patient need dialysis however he has refused dialysis several times. She is a service consulted to evaluate for hospice. Atrial fibrillation on chronic anticoagulation with rapid ventricular response Cardiology is following s/p amio drip (11/16-11/17); transition to oral amio 200 mg BID (11/17) continue oral amio and metoprolol and Eliquis if awake enough for oral intake. IDDM2 ACHS Accu-Chek, SSI Essential hypertension Blood pressures is fluctuating. Metoprolol once patient can tolerate p.o. Hydralazine as needed for BP spikes. Hypernatremia Probably secondary to dehydration. Nephrology is following and managing. 12/07 Nephrology input appreciated. Patient is on IV D5 water for hypernatremia Continue to monitor BMP 1 out of 4 blood culture bottles growing Staph epidermidis. This is likely skin contaminant Continue antibiotics for now given sepsis. Ongoing discussion with family regarding DNR and hospice as patient has refused dialysis. No hyperkalemia as of now. Patient had hyperkalemia during his previous admission. Nephrology to follow. 12/08 Patient is more awake today hide advised he remain confused and lethargic. Hypernatremia improved with IV D5 water. Nephrology is following and managing hypernatremia Continue IV antibiotics. Keep n.p.o. A-fib is rate controlled. Clonidine patch started for blood pressure control. Advanced directive: full code. Ongoing discussion with regarding DNR. DVT prophylaxis: Heparin subQ for now
--- NOTE | 2024-12-08 16:33 | PN ---
Date of Progress Note: 12/08/2024 Subjective: The patient was admitted with acute kidney injury on advanced chronic kidney disease secondary to prerenal. The patient had severe hypernatremia. Yesterday, we started the patient on IV hydration. The patient today is more awake, still confused. Physical Examination: Vital Signs: Blood pressure 156/70, pulse of 88, afebrile. Chest: Clear to auscultation. Heart: S1, S2. Regular. Abdomen: Soft, nontender. Extremities: No edema. Neurologic: Alert. No focality. Confused. Laboratory Data: WBC 10, hemoglobin 11.6. Sodium 148, potassium 4.3, bicarb 20, BUN 66, creatinine down to 3.5, calcium 8.3, phosphorus 2.4, albumin 1.4, corrected calcium is 10.3. Current Medications: The patient on, include: 1. Cefepime. 2. Vancomycin. 3. Clonidine. 4. D5. 5. Thiamin. Assessment And Plan: 1. Acute kidney injury on advanced chronic kidney disease secondary to prerenal, over diuresis. The patient refused dialysis. The patient had uremic symptoms, still altered. Family still not decided. The patient looked to me, still on the dry side. I am going to continue hydration and will monitor. 2. Hypertension, controlled, better today. I am going to continue current treatment. 3. Hypernatremia has improved significantly from yesterday. The patient's total water deficit of 2.5 L and insensible loss of 500 and had urine output of 1100. Total of the deficit is around 4 L. I am going to continue current rate of hydration, and we will follow up the patient with the D5 of 125. 4. Cellulitis. Continue current antibiotic. 5. Encephalopathy, possible metabolic/uremic, improving. Continue hydration. Will follow up with primary. time spent examining the patient [id number] reviewing data lab and the radiology placing order discussing the case with the patient discussing the case with the steam finisher including hospitalist and nursing staff more than 55-minute ROBERT/LORNE Voice ID: [id number] Report ID: [id number] SHANTANU
[2024-12-09 07:09] LABS: Albumin 1.2 g/dL (3.4-5.0); Anion Gap 11.1 mEq/L (5.0-15.0); Phosphorus 2.4 mg/dL (2.5-4.9); Potassium 4.1 mEq/L (3.5-5.1)
--- NOTE | 2024-12-09 08:23 | P.PN ---
Subjective Date of Service: 12/09/24 Chief Complaint: elevated troponin Patient remains lethargic. He is less responsive today No recorded fever. He has been tolerating oxygen by nasal cannula. Physical Examination - Vital Signs Temperature: 97.7 F Blood Pressure: 126/62 Pulse: 80 Respirations: 18 Pulse Ox (%): 98 Assessment And Plan - Plan Physical examination General: Confused, NAD. Neck: Supple, no elevated JVD Heart: Heart sounds 1 and 2 normal, regular rhythm, normal rate, no pedal edema Lungs: Bibasilar crackles, adequate breath sounds bilaterally, no rhonchi. Abdomen: Soft, nondistended, nontender, normal bowel sounds. Skin: Bilateral lower extremity venous dermatitis and scaly lesions. Neuro: Less responsive, no focal motor deficit. Psychiatry: Confused, lethargic. Diagnosis KAITLIN on CKD 4 with hyperkalemia/uremia Metabolic encephalopathy secondary to above Sepsis Chronic diastolic congestive heart failure CAD with previous stents Severe pulmonary hypertension Atrial fibrillation on chronic anticoagulation Diabetes mellitus type 2insulin-dependent Hypertension Hyperlipidemia Plan: Sepsis Patient had low-grade fever with associated leukocytosis Elevated CRP. Leukocytosis is improving. 1 blood culture bottles growing gram-positive cocci in clusters. Chronic bilateral lower extremity dermatitis could be source of sepsis. Continue IV vancomycin and cefepime for now Renally dose antibioticss Follow cultures KAITLIN on CKD 4 with hypernatremia Metabolic encephalopathy secondary to above Patient has consistently refused dialysis Nephrology Dr. Mitchell input appreciated. Renal u/s (11/12): no hydro. echogenic renal cortex bilaterally. Altered mental status likely secondary to uremia. Serum creatinine is worse. IV hydration per Dr. Mitchell. Case discussed with Dr. Mitchell. Patient has very poor prognosis if he does not undergo dialysis. Patient's current clinical condition, his wishes and goals of care discussed with his . Patient's wants to honor patient wishes and receptive of hospice. Social service consulted for hospice evaluation. Acute chronic diastolic congestive heart failure CAD with previous stents Severe pulmonary hypertension Volume overload secondary to CKD. CXR suggest pulmonary edema. Patient need dialysis however he has refused dialysis several times. She is a service consulted to evaluate for hospice. Atrial fibrillation on chronic anticoagulation with rapid ventricular response Cardiology is following s/p amio drip (11/16-11/17); transition to oral amio 200 mg BID (11/17) continue oral amio and metoprolol and Eliquis if awake enough for oral intake. IDDM2 ACHS Accu-Chek, SSI Essential hypertension Blood pressures is fluctuating. Metoprolol once patient can tolerate p.o. Hydralazine as needed for BP spikes. Hypernatremia Probably secondary to dehydration. Nephrology is following and managing. 12/07 Nephrology input appreciated. Patient is on IV D5 water for hypernatremia Continue to monitor BMP 1 out of 4 blood culture bottles growing Staph epidermidis. This is likely skin contaminant Continue antibiotics for now given sepsis. Ongoing discussion with family regarding DNR and hospice as patient has refused dialysis. No hyperkalemia as of now. Patient had hyperkalemia during his previous admission. Nephrology to follow. 12/08 Patient is more awake today hide advised he remain confused and lethargic. Hypernatremia improved with IV D5 water. Nephrology is following and managing hypernatremia Continue IV antibiotics. Keep n.p.o. A-fib is rate controlled. Clonidine patch started for blood pressure control. 12/09 KAITLIN on CKD: Renal function is improving slowly, serum creatinine trended down, no metabolic acidosis, no hyperkalemia. Patient is on IV D5 water Hypernatremia: Resolved. Nephrology is managing with D5W. Sepsis: 1 out of 4 blood culture bottles grew Staph epidermidis. This is likely a skin contaminant, however patient has venous stasis dermatitis and xerosis of lower extremities which may serve as source of infection. Antibiotic sensitivity noted. Antibiotics changed from IV cefepime and vancomycin to IV Levaquin. Pharmacy to renally dose. Acute metabolic encephalopathy: Patient is less responsive today. Altered mental status is getting worse. Patient is not able to eat due to altered mental status. He has been pocketing food in his mouth when family attempted to feed him.y AMS likely secondary to uremia. Uncontrolled hypertension: Patient currently not able to tolerate p.o. Clonidine patch for BP control for now. Atrial fibrillation: Stable without amiodarone as patient is now tolerating p.o. Continue to monitor. Advanced directive: full code. Ongoing discussion with regarding DNR. Patients is [place] of [place]. She stated she will return tomorrow to continue goals of care discussion. DVT prophylaxis: Heparin subQ for now
[2024-12-09] MEDS: Levofloxacin 750mg IV 750 MG/150 ML BAG IV SCH (08:44)
--- NOTE | 2024-12-09 12:03 | RAD REPORT ---
EXAMINATION: ONE VIEW CHEST XR CLINICAL INDICATION: Male, 74 years old.,Assess for pulmonary edema TECHNIQUE: Frontal chest projection is submitted. Examination is limited by patient positioning and t echnique. COMPARISON: 12/04/2024 FINDINGS: Progressive central interstitial prominence, although patient rotation limits evaluation. Allowing fo r this, the findings appear stable. No pneumothorax or sizable effusion. The heart is normal in size. Mediastinal contours are unremarkable. IMPRESSION: Central congestive changes versus early edema. Findings appear stable allowing for suboptimal patient rotation.
--- NOTE | 2024-12-09 12:32 | P.PN ---
Subjective Date of Service: 12/09/24 Chief Complaint: elevated troponin Subjective: No new changes Review of Systems 10-point ROS is otherwise unremarkable Physical Examination - Vital Signs Temperature: 97.7 F Blood Pressure: 126/62 Pulse: 80 Respirations: 18 Pulse Ox (%): 98 - Physical Exam General: Alert, In no apparent distress HEENT: Atraumatic, PERRLA, EOMI Neck: Supple, JVD not distended Respiratory: Clear to auscultation bilaterally, Normal air movement Cardiovascular: Regular rate/rhythm, Normal S1 S2 Gastrointestinal: Normal bowel sounds, No tenderness Musculoskeletal: No tenderness Integumentary: No rashes Neurological: Normal speech, Normal tone, Normal affect Lymphatics: No axilla or inguinal lymphadenopathy - Studies Medications List Reviewed: Yes Assessment And Plan - Current Problems (Diagnosis) (1) Type 2 SC (myocardial infarction) Current Visit: Yes Status: Acute Plan: Patient got mild elevated troponin that is trending down, most likely type 2 SC from KAITLIN and sepsis, patient denies chest pain. ASA 81 mg daily continue Toprol XL 25 mg daily (2) Chronic diastolic heart failure Current Visit: Yes Status: Acute Plan: patient looks euvolemic on exam with KAITLIN on CKD, agree with holding Bumex and gentle Hydration. (3) Afib Current Visit: No Status: Chronic Plan: resume Amiodarone 200 mg po BID resume Eliquis 2.5 mg po BID continue to monitor on tele. Patient overall status is very poor, recommend comfort care. Qualifiers:
--- NOTE | 2024-12-09 23:43 | PN ---
Date of Progress Note: 12/09/2024 Chief Complaint: Acute kidney injury on advanced chronic kidney disease, prerenal azotemia, nonoligu raul ATN. Subjective: The patient is tolerating p.o. intake. The patient came to the hospital because of gene ralized weakness. He was found to have severe hypernatremia and was started on IV hydration. The pa deni is lethargic, confused. Review of Systems: Unobtainable. Physical Examination: Lungs: Clear to auscultation bilaterally. Heart: S1, S2. Abdomen: Soft. Extremities: No edema. Impression And Plan: 1. Acute kidney injury on advanced chronic kidney disease, prerenal azotemia, nonoliguric acute tubul ar necrosis. The patient refused dialysis. The patient has decreased p.o. intake. Continue IV flui ds as tolerated. 2. Hypernatremia, improved. Continue IV fluids with D5W. 3. Cellulitis of the legs. Continue antibiotics. 4. Encephalopathy, possible metabolic/uremic, improving. 5. The patient refused dialysis for uremia treatment to prevent uremia. EB/MODL Voice ID: [id number] Report ID: [id number]
[2024-12-10 07:50] LABS: Absolute Basophils 0.1 K/uL (0-0.5); Absolute Eosinophils 0.2 K/uL (0-0.5); Absolute Lymphocytes (CBC) 1.6 K/uL (0.7-4.9); Absolute Monocytes 1.4 K/uL (0.1-1.3); Absolute Neutrophil 9.6 K/uL (1.8-8.0); Albumin 1.3 g/dL (3.4-5.0); Anion Gap 12.7 mEq/L (5.0-15.0); Basophils % 0.6 % (0-1.3); Eosinophils % 1.6 % (0-4.4); Hematocrit 34.1 % (39.6-49.0); Hemoglobin 10.8 g/dL (13.6-17.9); Lymphocytes % 12.6 % (15.3-44.8); MCH 26.1 pg (27.0-35.0); MCHC 31.5 g/dL (32.0-36.0); MCV 82.9 fL (80-100); MPV 8.5 fL (7.6-11.3); Monocytes % 10.8 % (3.3-12.3); Neutrophils % 74.4 % (41.7-73.7); Nucleated Red Blood Cells % 0.1 % (0-0); Phosphorus 2.8 mg/dL (2.5-4.9); Platelets 332 thou/uL (152-406); Potassium 4.7 mEq/L (3.5-5.1); RBC Red Blood Cell Count 4.12 M/uL (4.33-5.43); Red Cell Distribution Width 17.9 % (12.1-15.2)
[2024-12-10 09:01] LABS: White Blood Cell Scan OK (OK)
[2024-12-10 09:02] LABS: Blood Morphology Comment NOT SEEN (NOT SEEN); Platelet Estimate ADEQ
--- NOTE | 2024-12-10 09:23 | P.PN ---
Date of Service: 12/10/24 Subjective: No acute events overnight Denies any new/worsening symptoms Only answering in short sentences/few words at a time seems to have some confusion ROS: 10 point ROS as noted above, otherwise negative Physical Exam: GEN: Alert, orientedx1, NAD CV: Regular rate and rhythm, no edema Pulm: Nonlabored respirations on room air, clear bilaterally ABD: soft, nontender, nondistended Problem List: KAITLIN on CKD 4 with hypernatremia Acute on chronic diastolic CHF Volume overload Metabolic encephalopathy secondary to above Sepsis, unknown etiology Bilateral venous stasis dermatitis, chronic Atrial fibrillation on chronic anticoagulation with RVR NSTEMI secondary to demand ischemia Hypertension Hyperlipidemia Hx of CAD s/p prior PCI IDDM2 Hypernatremia, resolved KAITLIN on CKD 4 with hypernatremia Acute on chronic diastolic CHF Volume overload Metabolic encephalopathy secondary to above Patient has consistently refused dialysis Case discussed with Dr. Mitchell. Patient has very poor prognosis if he does not undergo dialysis. Renal u/s (11/12): no hydro. echogenic renal cortex bilaterally. AMS likely secondary to uremia, in addition to some degree of dementia at baseline Continue to monitor renal function, electrolytes creatinine slightly improved. continue IVF; per nephrology Dr. Zhang discussed patient's clinical condition, his wishes and goals of care with pt's . Patient's wants to honor patient wishes and receptive of hospice. Social service consulted for hospice evaluation. Continue to hold diuresis Sepsis, unknown etiology Bilateral venous stasis dermatitis, chronic Patient had low-grade fever with associated leukocytosis Blood cx (12/04): 1/ bottles grew Staph Epidermidis Likely skin contaminant, however given patients chronic wounds, will cover with IV abx Chronic bilateral lower extremity dermatitis could be source of sepsis. continue IV levaquin (12/09-); deescalated from IV cefepime/vanc (12/05-12/08) Elevated CRP. +Leukocytosis Renally dose antibiotics Atrial fibrillation on chronic anticoagulation with RVR NSTEMI secondary to demand ischemia Hypertension Hyperlipidemia Hx of CAD s/p prior PCI resume home meds as appropriate continue oral amio and metoprolol and Eliquis if awake enough for oral intake. IDDM2 ACHS Accu-Chek, SSI Hypernatremia, resolved Nephrology is following Daily Labs VTE: heparin sq Code: Full nephrology social worker consulted to discuss, eval for possible hospice. Time Spent Managing Pts Care (In Minutes): 55
--- NOTE | 2024-12-10 11:28 | EKG ---
Test Date: 2024-12-04 Test Time: 15:23:55 Work Over Rig Operator: REYNOLD MEASUREMENT RESULTS: Intervals: Rate: 94 ME: 168 QRSD: 98 QT: 384 QTc: 480 [place]: P: 83 ME: 168 QRS: -90 T: 69 INTERPRETIVE STATEMENTS: Normal sinus rhythm T wave abnormality, consider anterior ischemia Prolonged QT Abnormal ECG Compared to ECG 11/16/2024 21:28:31 T-wave abnormality now present Left-axis deviation no longer present ST (T wave) deviation no longer present Possible ischemia still present Electronically Signed On 12-10-24 11:09:52 CDT by Faraz Duque
--- NOTE | 2024-12-10 13:59 | PN ---
Date of Progress Note: 12/10/2024 Subjective: The patient was admitted with acute kidney injury and uremia, severe hypernatremia. Patient after hydration, started improving. The patient is more awake. Physical Examination: Vital Signs: Blood pressure 159/74, pulse of 72, afebrile. The patient had good urine output of 1400. Chest: Clear to auscultation. Heart: S1, S2. Regular. Abdomen: Soft, nontender. Extremities: No edema. Neurologic: Alert. No focality. Laboratory Data: WBC 12.9, hemoglobin 10.8, sodium 139, potassium 4.7, bicarb 18, BUN 54, creatinine 3.1, trending down. GFR of 20, calcium 8.1, phosphorus 2.8, albumin 1.3, corrected calcium is 10. Current Medications: The patient on, it includes: 1. Cefepime. 2. Heparin. 3. Clonidine. 4. D5 at 125 per hour. Assessment And Plan: 1. Acute kidney injury on advanced chronic kidney disease secondary to prerenal, over diuresis. Continue to recover. Looked to me started getting close to normal volume. I am going to decrease the D5 to 75 per hour and we will monitor. I do not see the need for any renal replacement therapy for the time being. 2. Hypertension, controlled. Continue current treatment. Please avoid any diuresis. 3. Hypernatremia secondary to poor intake, over-diuresis, trending down currently. Total body deficit around 1 to 1.5 with insensible loss of 500 and urine output of 1900 make total water deficit around 3 L. We will decrease IV fluid to 75, and we will follow up. 4. Altered mental status secondary to uremia. Patient is still refusing any renal replacement therapy. We will continue to monitor. Follow up with the family. Keep holding diuresis for the time being. time spent examining the patient [id number] reviewing data lab and the radiology placing order discussing the case with the patient discussing the case with the steam plant operator including hospitalist and nursing staff more than 55-minute OSVALDO Voice ID: [id number] Report ID: [id number] SHANTANU
[2024-12-10] MEDS: D5W 1,000 ML IV SCH (17:20)
[2024-12-11 06:07] LABS: Absolute Basophils 0.1 K/uL (0-0.5); Absolute Eosinophils 0.2 K/uL (0-0.5); Absolute Lymphocytes (CBC) 1.4 K/uL (0.7-4.9); Absolute Neutrophil 7.2 K/uL (1.8-8.0); Basophils % 1.5 % (0-1.3); Eosinophils % 2.1 % (0-4.4); Hemoglobin 10.8 g/dL (13.6-17.9); Lymphocytes % 13.8 % (15.3-44.8); MCH 26.6 pg (27.0-35.0); MCHC 31.9 g/dL (32.0-36.0); MCV 83.4 fL (80-100); MPV 7.8 fL (7.6-11.3); Monocytes % 10.1 % (3.3-12.3); Neutrophils % 72.5 % (41.7-73.7); Nucleated Red Blood Cells % 0.2 % (0-0); Platelets 400 thou/uL (152-406); RBC Red Blood Cell Count 4.08 M/uL (4.33-5.43); Red Cell Distribution Width 17.5 % (12.1-15.2)
[2024-12-11 06:36] LABS: Albumin 1.3 g/dL (3.4-5.0); Albumin/Globulin Ratio 0.2 (1.1-1.8); Anion Gap 8.4 mEq/L (5.0-15.0); Bilirubin Total 0.5 mg/dL (0.2-1.0); Globulin 5.3 g/dL (2.3-3.5); Magnesium 1.9 mg/dL (1.6-2.4); Potassium 4.4 mEq/L (3.5-5.1); Protein, Total 6.6 g/dL (6.4-8.2)
--- NOTE | 2024-12-11 11:22 | P.PN ---
Date of Service: 12/11/24 Subjective: No acute events overnight more awake/alert this morning ROS: 10 point ROS as noted above, otherwise negative Physical Exam: GEN: Alert, orientedx2, NAD CV: Regular rate and rhythm, no edema Pulm: Nonlabored respirations on 2L NC, clear bilaterally Integumentary: legs wrapped in kerlix/mariann bandage ABD: soft, nontender, nondistended Problem List: KAITLIN on CKD 4 with hypernatremia Acute on chronic diastolic CHF Volume overload Metabolic encephalopathy secondary to above Sepsis, unknown etiology Bilateral venous stasis dermatitis, chronic Atrial fibrillation on chronic anticoagulation with RVR NSTEMI secondary to demand ischemia Hypertension Hyperlipidemia Hx of CAD s/p prior PCI IDDM2 Hypernatremia, resolved KAITLIN on CKD 4 with hypernatremia Acute on chronic diastolic CHF Volume overload Metabolic encephalopathy secondary to above Patient has consistently refused dialysis Case discussed with Dr. Mitchell. Initially felt patient has very poor prognosis if he does not undergo dialysis. renal fxn has slowly improved, seems to be plateau'ing now, worse than previous baseline he is more awake/alert initially discussions were regarding hospice since patient does not want dialysis at bedside today, states she was going to get more information regarding hospice, unsure of which route she is going to go, and will discuss with the patient Continue to hold diuresis IVF dc'd 12/11 Speech consulted to eval swallowing. Diet minced/moist for now Sepsis, unknown etiology Bilateral venous stasis dermatitis, chronic Patient had low-grade fever with associated leukocytosis Blood cx (12/04): 1/ bottles grew Staph Epidermidis Likely skin contaminant, however given patients chronic wounds, he was coverered with IV abx Chronic bilateral lower extremity dermatitis could be source of sepsis. continue IV levaquin (12/09-); deescalated from IV cefepime/vanc (12/05-12/08) Leukocytosis resolved. Renally dose antibiotics 12/11 dressing taken down, with dry cracked skin, sloughing from LLE medial wound, no purulent drainage Atrial fibrillation on chronic anticoagulation with RVR NSTEMI secondary to demand ischemia Hypertension Hyperlipidemia Hx of CAD s/p prior PCI resume home meds as appropriate continue oral amio and metoprolol and Eliquis if awake enough for oral intake. IDDM2 ACHS Accu-Chek, SSI Hypernatremia, resolved Nephrology is following Daily Labs VTE: heparin sq Code: Full social director consulted to discuss, eval for possible hospice. reviewing Time Spent Managing Pts Care (In Minutes): 55
--- NOTE | 2024-12-11 11:30 | PN ---
Date of Progress Note: 12/11/2024 Subjective: The patient was admitted to the hospital with acute kidney injury, hypernatremia. The patient was started on hydration. Diuresis has been discontinued. The patient's mental status has been recovered. Physical Examination: Vital Signs: Blood pressure 124/65, pulse of 74, afebrile. Chest: Clear to auscultation. Heart: S1, S2. Systolic murmur. Abdomen: Soft, nontender. Extremities: No edema. Neurologic: Alert. No focality. Laboratory Data: Hemoglobin 10.8. Sodium 135, potassium 4.4, bicarb 21, BUN 49, creatinine 3.2, GFR of 19, calcium 8.5, albumin 1.3, corrected calcium is 10.5. Current Medications: The patient is on include: 1. Levaquin. 2. Heparin. 3. Zofran. 4. Fentanyl. 5. Thiamine. Assessment And Plan: 1. Acute kidney injury on advanced chronic kidney disease secondary to prerenal over diuresis, recovered. We will discontinue IV fluid. We will follow up after swallow. 2. Hypertension, controlled, optimal. Continue current treatment. Keep holding diuresis. 3. Hypernatremia, recovered, resolved. Discontinue IV fluid. 4. Encephalopathy secondary to uremia, recovered back to baseline. 5. Congestive heart failure. No exacerbation. Keep holding diuresis. We will consider restarting tomorrow. time spent examining the patient [id number] reviewing data lab and the radiology placing order discussing the case with the patient discussing the case with the assembler steam and gas turbine including hospitalist and nursing staff more than 55-minute OSVALDO Voice ID: [id number] Report ID: [id number] MTDMarbella
[2024-12-11] MEDS: ACETAMINOPHEN 325 MG TABLET PO PRN (20:46)
[2024-12-12 05:20] LABS: Absolute Basophils 0.1 K/uL (0-0.5); Absolute Eosinophils 0.2 K/uL (0-0.5); Absolute Monocytes 1.2 K/uL (0.1-1.3); Absolute Neutrophil 7.5 K/uL (1.8-8.0); Basophils % 0.6 % (0-1.3); Eosinophils % 1.6 % (0-4.4); Hematocrit 33.6 % (39.6-49.0); Hemoglobin 10.7 g/dL (13.6-17.9); Lymphocytes % 10.3 % (15.3-44.8); MCH 26.4 pg (27.0-35.0); MCV 82.4 fL (80-100); MPV 8.2 fL (7.6-11.3); Monocytes % 12.4 % (3.3-12.3); Neutrophils % 75.1 % (41.7-73.7); Platelets 360 thou/uL (152-406); RBC Red Blood Cell Count 4.08 M/uL (4.33-5.43); Red Cell Distribution Width 17.5 % (12.1-15.2)
[2024-12-12 05:36] LABS: Anion Gap 11.3 mEq/L (5.0-15.0); Magnesium 1.7 mg/dL (1.6-2.4); Potassium 4.3 mEq/L (3.5-5.1)
[2024-12-12] MEDS: MAGNESIUM SULFATE 1 gm IVPB 1 GM/100 ML BAG IV ONE (06:28)
--- NOTE | 2024-12-12 12:11 | P.PN ---
Date of Service: 12/12/24 Subjective: No acute events overnight refused dressing changes this morning afebrile ROS: 10 point ROS as noted above, otherwise negative Physical Exam: GEN: Alert, orientedx2, NAD CV: Regular rate and rhythm, no edema Pulm: Nonlabored respirations on 2L NC Integumentary: legs wrapped in kerlix/mariann bandage ABD: soft, nontender, nondistended Problem List: KAITLIN on CKD 4 with hypernatremia Acute on chronic diastolic CHF Volume overload Metabolic encephalopathy secondary to above Sepsis, unknown etiology Bilateral venous stasis dermatitis, chronic Atrial fibrillation on chronic anticoagulation with RVR NSTEMI secondary to demand ischemia Hypertension Hyperlipidemia Hx of CAD s/p prior PCI IDDM2 Hypernatremia, resolved KAITLIN on CKD 4 with hypernatremia Acute on chronic diastolic CHF Volume overload Metabolic encephalopathy secondary to above KAITLIN on CKD secondary to prerenal, over diuresis. Patient has consistently refused dialysis Case discussed with Dr. Mitchell. Initially felt patient has very poor prognosis if he does not undergo dialysis. renal fxn has slowly improved, seems to be plateau'ing now, worse than previous baseline he is more awake/alert initially discussions were regarding hospice since patient does not want dialysis at bedside 12/11 states she was going to get more information regarding hospice, unsure of which route she is going to go, and will discuss with the vinh tee Speech consulted to eval swallowing. Diet minced/moist for now 12/11 - IVF dc'd. Continue to hold diuresis 12/12 - Creatinine slightly improved/stable. monitor intake Sepsis, unknown etiology Bilateral venous stasis dermatitis, chronic Patient had low-grade fever with associated leukocytosis Blood cx (12/04): 10/05 bottles grew Staph Epidermidis Likely skin contaminant, however given patients chronic wounds, he was coverered with IV abx Chronic bilateral lower extremity dermatitis could be source- but do not appear infected continue IV levaquin (12/09-); deescalated from IV cefepime/vanc (12/05-12/08) Leukocytosis resolved. Renally dose antibiotics 12/11 dressing taken down, with dry cracked skin, sloughing from LLE medial wound, no purulent drainage 12/12 ID consulted for further recs Atrial fibrillation on chronic anticoagulation with RVR NSTEMI secondary to demand ischemia Hypertension Hyperlipidemia Hx of CAD s/p prior PCI resume home meds as appropriate continue oral amio and metoprolol and Eliquis IDDM2 ACHS Accu-Chek, SSI hold metformin Hypernatremia, resolved secondary to over diuresis and poor intake Nephrology is following Daily Labs VTE: heparin sq Code: Full Dispo: may need SNF. meeting with hospice to get more info Time Spent Managing Pts Care (In Minutes): 55
--- NOTE | 2024-12-12 15:55 | CON ---
History Of Present Illness: This is a 74-year-old male I was consulted for positive blood culture wi th Staph epi and leg wounds. The patient is not a good historian. Most of the history was obtained through medical records and staff. The patient was brought into the hospital on December 04 with signifi cant past medical history of COPD, atrial fibrillation, coronary artery disease, diabetes mellitus, h ypertension. The patient was in acute metabolic encephalopathy superimposed with sepsis. The patien t also had a low-grade fever of 100.7. Denies any headache, nausea, vomiting, chest pain, abdominal pain, constipation, or diarrhea. Past Medical History: As per HPI. Social History: Nonsmoker, nondrinker. Family History: Noncontributory. Medications: Levaquin. See MARs for other medications. Allergies: PENICILLIN, EXTERNAL ALLERGIES. Review of Systems: A 10-point review was performed. Physical Examination: General: This is a 74-year-old male, lying in bed, not in any acute cardiopulmonary distress. Vital Signs: Temperature 98, pulse 74, respirations 16, blood pressure 167/68. HEENT: Unremarkable. Neck: Supple. Lungs: Basilar crackles. Heart: S1, S2. Regular. Abdomen: Soft, nontender. Bowel sounds present. Extremities: Trace edema with significant amount of xerosis on both lower extremities with superfici al ulceration noted with crusting and scaling of the skin. Laboratory Data: Shows WBC 10, hemoglobin 10.7, platelets are 360. On admission, WBC was . The patient's kidney function; creatinine which was 5.2, now down to 3.14. Chest x-ray done on [facility] 10 shows congestive changes secondary to edema. Assessment And Plan: 1. Lower extremity stasis ulcer and stasis dermatitis secondary to congestive heart failure. Recomme nd to apply Xeroform and moisturizing cream and cover with Kerlix and Edward wrap and keep legs elevated when possible. Staph bacteremia possibly contaminant as blood culture is showing Staph epi in 1 bot tle. Recommend to continue antibiotic Levaquin for total of 14 days. 2. Leukocytosis has resolved. 3. Renal acute renal failure. Monitor kidney function while the patient on antibiotic. 4. Anemia of chronic disease. 5. Continue current treatment. We will follow the patient as needed. NF/MODL Voice ID: [id number] Report ID: [id number]
--- NOTE | 2024-12-12 21:46 | PN ---
Date of Progress Note: 12/12/2024 Subjective: The patient is admitted to the hospital because of acute kidney injury enceph alopathy, altered mental status has improved. Review of Systems: Denies chest pain, palpitations. Physical Examination: Lungs: Clear to auscultation bilaterally. Heart: S1, S2. Abdomen: Soft. Extremities: No edema. Impression And Plan: 1. Acute kidney injury due to nonoliguric acute tubular necrosis secondary to prerenal azotemia . 2. Hypertension. Blood pressure controlled. Continue current treatment. . 3. Encephalopathy due to uremia. Mental status monitor fluid status. Continue p.o. hydra tion as tolerated . EB/MODL Voice ID: [id number] Report ID: [id number]
[2024-12-13 06:08] LABS: Anion Gap 11.4 mEq/L (5.0-15.0); Potassium 4.4 mEq/L (3.5-5.1)
[2024-12-13] MEDS ORDERED: levoFLOXacin 500 MG TAB PO SCH (09:00)
[2024-12-13] MEDS: levoFLOXacin 250 MG TAB PO SCH (10:00)
[2024-12-13] MEDS: MEDIHONEY 44 ML TOPICAL TUBE TOP SCH (10:14)
--- NOTE | 2024-12-13 10:48 | P.PN ---
Date of Service: 12/13/24 Subjective: Family updated at bedside no IV access, refusing new IV reinsertion no signs of overt aspiration with speech therapy yesterday ROS: 10 point ROS as noted above, otherwise negative Physical Exam: GEN: Alert, oriented, NAD CV: Regular rate and rhythm, no edema Pulm: Nonlabored respirations on 2L NC Integumentary: legs wrapped in kerlix/mariann bandage ABD: soft, nontender, nondistended Problem List: KAITLIN on CKD 4 with hypernatremia Acute on chronic diastolic CHF Volume overload Metabolic encephalopathy secondary to above Sepsis, unknown etiology Bilateral venous stasis dermatitis, chronic Atrial fibrillation on chronic anticoagulation with RVR NSTEMI secondary to demand ischemia Hypertension Hyperlipidemia Hx of CAD s/p prior PCI IDDM2 Hypernatremia, resolved KAITLIN on CKD 4 with hypernatremia Acute on chronic diastolic CHF Volume overload Metabolic encephalopathy secondary to above KAITLIN on CKD secondary to prerenal, over diuresis. Patient has consistently refused dialysis Case discussed with Dr. Mitchell. Initially felt patient has very poor prognosis if he does not undergo dialysis. renal fxn has slowly improved, seems to be plateau'ing now, worse than previous baseline he is more awake/alert initially discussions were regarding hospice since patient does not want dialysis at bedside 12/11 states she was going to get more information regarding hospice, unsure of which route she is going to go, and will discuss with the patient 12/11 - IVF dc'd. Continue to hold diuresis 12/12 - Creatinine slightly improved/stable. monitor intake no overt s/s of aspiration with speech today. Continue minced/moist with thin liquids 12/13 - Creatinine stable. No new issues. Refusing new IV reinsertion tolerated breakfast at bedside, met with hospice, and wants to discuss with [facility] before choosing Sepsis, unknown etiology Bilateral venous stasis dermatitis, chronic Patient had low-grade fever with associated leukocytosis Blood cx (12/04): 10/05 bottles grew Staph Epidermidis Likely skin contaminant, however given patients chronic wounds, he was coverered with IV abx Chronic bilateral lower extremity dermatitis could be source- but do not ap pear infected IV cefepime/vanc (12/05-12/08) deescalated to IV levaquin (12/09) 12/10 - Leukocytosis resolved. 12/11 - Dressing taken down, with dry cracked skin, sloughing from LLE medial wound, no purulent drainage 12/12 - ID consulted - recommending patient complete 2 weeks of levaquin 12/13 - Switch IV levaquin to oral Wound care instructions updated, continue daily dressing changes Continue oral levaquin for 2 weeks total (12/09-12/23) Atrial fibrillation on chronic anticoagulation with RVR NSTEMI secondary to demand ischemia Hypertension Hyperlipidemia Hx of CAD s/p prior PCI resume home meds as appropriate continue oral amio and metoprolol and Eliquis IDDM2 ACHS Accu-Chek, SSI hold metformin Hypernatremia, resolved secondary to over diuresis and poor intake Nephrology is following Daily Labs VTE: heparin sq Code: Full Dispo: likely hospice, reviewing options Time Spent Managing Pts Care (In Minutes): 45
--- NOTE | 2024-12-13 15:31 | PN ---
Date of Progress Note: 12/13/2024 Chief Complaint: Acute kidney injury on advanced chronic kidney disease stage 4. Subjective: Patient presented to the hospital because of altered mental status. He had uremia. He refused dialysis. He received IV fluids for acute kidney injury with volume depletion. Currently, daniel brennan is on p.o. intake. Encephalopathy is gradually resolving. Review of Systems: Denies chest pain, palpitation. Physical Examination: Lungs: Clear to auscultation bilaterally. Heart: S1 and S2. Abdomen: Soft. Extremities: No edema. Impression And Plan: 1. Acute kidney injury due to acute tubular necrosis and prerenal azotemia. 2. Hypertension. Blood pressure is controlled. 3. Encephalopathy due to uremia, resolving. Monitor fluid status. Continue p.o. hydration. Monitor renal . EB/MODL Voice ID: [id number] Report ID: [id number]
[2024-12-14] MEDS: NIFEDIPINE XL 60 MG TABLET PO ONE (03:32)
--- NOTE | 2024-12-14 11:20 | P.PN ---
Date of Service: 12/14/24 Subjective: no acute events overnight denies any pain tolerated some food yesterday ROS: 10 point ROS as noted above, otherwise negative Physical Exam: GEN: Alert, orientedx1-2, NAD CV: Regular rate and rhythm, no edema Pulm: Nonlabored respirations on 2L NC Integumentary: legs wrapped in kerlix/mariann bandage ABD: soft, nontender, nondistended Problem List: KAITLIN on CKD 4 with hypernatremia Acute on chronic diastolic CHF Volume overload Metabolic encephalopathy secondary to above Sepsis, unknown etiology Bilateral venous stasis dermatitis, chronic Atrial fibrillation on chronic anticoagulation with RVR NSTEMI secondary to demand ischemia Hypertension Hyperlipidemia Hx of CAD s/p prior PCI IDDM2 Hypernatremia, resolved KAITLIN on CKD 4 with hypernatremia Acute on chronic diastolic CHF Volume overload Metabolic encephalopathy secondary to above KAITLIN on CKD secondary to prerenal, over diuresis. Patient has consistently refused dialysis Case discussed with Dr. Mitchell. Initially felt patient has very poor prognosis if he does not undergo dialysis. renal fxn has slowly improved, seems to be plateau'ing now, worse than previous baseline he is more awake/alert initially discussions were regarding hospice since patient does not want dialysis at bedside 12/11 states she was going to get more information regarding hospice, unsure of which route she is going to go, and will discuss with the patient 12/11 - IVF dc'd. Continue to hold diuresis 12/12 - Creatinine slightly improved/stable. monitor intake no overt s/s of aspiration with speech today. Continue minced/moist with thin liquids 12/13 - Creatinine stable. No new issues. Refusing new IV reinsertion tolerated breakfast at bedside, met with hospice, and wants to discuss with IPH before choosing 12/14 - stable, will repeat labs in AM encourage PO intake Sepsis, unknown etiology Bilateral venous stasis dermatitis, chronic Patient had low-grade fever with associated leukocytosis Blood cx (12/04): 10/05 bottles grew Staph Epidermidis Likely skin contaminant, however given patients chronic wounds, he was coverered with IV abx Chronic bilateral lower extremity dermatitis could be source- but do not appear infected IV cefepime/vanc (12/05-12/08) deescalated to IV levaquin (12/09) 12/10 - Leukocytosis resolved. 3/12 - Dressing taken down, with dry cracked skin, sloughing from LLE medial wound, no purulent drainage 12/12 - ID consulted - recommending patient complete 2 weeks of levaquin 12/13 - Switch IV levaquin to oral Wound care instructions updated, continue daily dressing changes Continue oral levaquin for 2 weeks total (12/09-12/23) 12/14 -remains afebrile, stable Atrial fibrillation on chronic anticoagulation with RVR NSTEMI secondary to demand ischemia Hypertension Hyperlipidemia Hx of CAD s/p prior PCI continue oral amio and metoprolol and Eliquis IDDM2 ACHS Accu-Chek, SSI hold metformin Hypernatremia, resolved secondary to prerenal / hypovolemia / diuresis and poor intake Nephrology is following Daily Labs VTE: heparin sq Code: Full Dispo: likely hospice, reviewing options Time Spent Managing Pts Care (In Minutes): 45
--- NOTE | 2024-12-14 13:26 | PN ---
Date of Progress Note: 12/14/2024 Subjective: No overnight events. His creatinine is stable at 3.1. Continue antibiotics and wound c are. Objective: Vital Signs: Temperature 98.1, pulse rate of 90, blood pressure 116/55. General: Awake, alert, and oriented x1. Looks frail and chronically ill. Neck: Supple. No elevated JVD. Heart: Regular rate and rhythm. Normal S1, S2. Chest: Clear to auscultation bilaterally. No rales or wheezes. Abdomen: Soft, nontender. Extremities: Bilateral legs in dressing. Trace edema. Laboratory Data: White count of 10, hemoglobin of 10.7, sodium 139, potassium 4.4, BUN 38, creatinin e 3.1. Medications: Include clonidine, levofloxacin, nifedipine. Assessment And Plan: 1. Acute on chronic kidney disease. Creatinine was 5.1 on admission that improved to 3.1, currently improving. The patient had a creatinine stable at now 3.1. Renally dosed medication. Avoid NSAID a nd contrast. No acute indication for renal placement therapy, at this time. 2. Hypertension. Blood pressure currently controlled. Patient is currently on nifedipine. 3. Metabolic encephalopathy, stable. Continue supportive care. 4. Atrial fibrillation, rate controlled. 5. Hypernatremia, resolved. Encouraged to increase in fluid intake. 6. Fluid overload. Currently has a trace edema. Use Lasix as needed as patient had hypernatremia on admission. 7. Lower extremity wounds. Continue antibiotic and wound care. Patient overall has guarded to poor prognosis. Hospice consulted. Family to decide about goal of ca re. NICOLA/LORNE Voice ID: [id number] Report ID: [id number]
[2024-12-15 06:22] LABS: Albumin 1.5 g/dL (3.4-5.0); Anion Gap 12.5 mEq/L (5.0-15.0); Phosphorus 3.4 mg/dL (2.5-4.9); Potassium 4.5 mEq/L (3.5-5.1)
[2024-12-15] MEDS: levoFLOXacin 500 MG TAB PO SCH (08:26)
[2024-12-15] MEDS: CLONIDINE 0.1 MG/PATCH TD SCH (08:27)
--- NOTE | 2024-12-15 10:34 | P.PN ---
Date of Service: 12/15/24 Subjective: no acute events overnight lower extremity dressing changed stable ROS: 10 point ROS as noted above, otherwise negative Physical Exam: GEN: Alert, orientedx1-2, NAD CV: Regular rate and rhythm, no edema Pulm: Nonlabored respirations on 2L NC Integumentary: legs wrapped in kerlix/mariann bandage ABD: soft, nontender, nondistended Problem List: KAITLIN on CKD 4 with hypernatremia Acute on chronic diastolic CHF Volume overload Metabolic encephalopathy secondary to above Sepsis, unknown etiology Bilateral venous stasis dermatitis, chronic Atrial fibrillation on chronic anticoagulation with RVR NSTEMI secondary to demand ischemia Hypertension Hyperlipidemia Hx of CAD s/p prior PCI IDDM2 Hypernatremia, resolved KAITLIN on CKD 4 with hypernatremia Acute on chronic diastolic CHF Volume overload Metabolic encephalopathy secondary to above KAITLIN on CKD secondary to prerenal, over diuresis. Patient has consistently refused dialysis Case discussed with Dr. Mitchell. Initially felt patient has very poor prognosis if he does not undergo dialysis. renal fxn has slowly improved, seems to be plateau'ing now, worse than previous baseline he is more awake/alert initially discussions were regarding hospice since patient does not want dialysis at bedside 12/11 states she was going to get more information regarding hospice, unsure of which route she is going to go, and will discuss with the patient 12/11 - IVF dc'd. Continue to hold diuresis 12/12 - Creatinine slightly improved/stable. monitor intake no overt s/s of aspiration with speech today. Continue minced/moist with thin liquids 12/13 - Creatinine stable. No new issues. Refusing new IV reinsertion tolerated breakfast at bedside, met with hospice, and wants to discuss with IPH before choosing 12/14 - stable, will repeat labs in AM encourage PO intake 12/15 - Stable. reviewing dispo options. Sepsis, unknown etiology Bilateral venous stasis dermatitis, chronic Patient had low-grade fever with associated leukocytosis Blood cx (12/04): 10/05 bottles grew Staph Epidermidis Likely skin contaminant, however given patients chronic wounds, he was coverered with IV abx Chronic bilateral lower extremity dermatitis could be source- but do not appear infected IV cefepime/vanc (12/05-12/08) deescalated to IV levaquin (12/09) 12/10 - Leukocytosis resolved. 12/11 - Dressing taken down, with dry cracked skin, sloughing from LLE medial wound, no purulent drainage 12/12 - ID consulted - recommending patient complete 2 weeks of levaquin 12/13 - Switch IV levaquin to oral Wound care instructions updated, continue daily dressing changes Continue oral levaquin for 2 weeks total (12/09-12/23) 12/14 - remains afebrile, stable 12/15 - Dressings changed Atrial fibrillation on chronic anticoagulation with RVR NSTEMI secondary to demand ischemia Hypertension Hyperlipidemia Hx of CAD s/p prior PCI continue oral amio and metoprolol and Eliquis IDDM2 ACHS Accu-Chek, SSI hold metformin Hypernatremia, resolved secondary to prerenal / hypovolemia / diuresis and poor intake Nephrology is following Daily Labs VTE: heparin sq Code: Full Dispo: likely hospice, reviewing options Time Spent Managing Pts Care (In Minutes): 45
[2024-12-16 05:19] LABS: Anion Gap 12.4 mEq/L (5.0-15.0); Magnesium 1.9 mg/dL (1.6-2.4); Potassium 4.4 mEq/L (3.5-5.1)
--- NOTE | 2024-12-16 11:46 | P.PN ---
Date of Service: 12/16/24 Subjective: no acute events overnight low grade temps pt awake, states doing ok, nothing worse/new ROS: 10 point ROS as noted above, otherwise negative Physical Exam: GEN: Alert, orientedx1-2, NAD CV: Regular rate and rhythm, no edema Pulm: Nonlabored respirations on 2L NC Integumentary: legs wrapped in kerlix/mariann bandage's removed, no purulent drainage ABD: soft, nontender, nondistended Problem List: KAITLIN on CKD 4 with hypernatremia Acute on chronic diastolic CHF Volume overload Metabolic encephalopathy secondary to above Sepsis, unknown etiology Bilateral venous stasis dermatitis, chronic Atrial fibrillation on chronic anticoagulation with RVR NSTEMI secondary to demand ischemia Hypertension Hyperlipidemia Hx of CAD s/p prior PCI IDDM2 Hypernatremia, resolved KAITLIN on CKD 4 with hypernatremia Acute on chronic diastolic CHF Volume overload Metabolic encephalopathy secondary to above KAITLIN on CKD secondary to prerenal, over diuresis. Patient has consistently refused dialysis Case discussed with Dr. Mitchell. Initially felt patient has very poor prognosis if he does not undergo dialysis. renal fxn has slowly improved, seems to be plateau'ing now, worse than previous baseline he is more awake/alert initially discussions were regarding hospice since patient does not want dialysis at bedside 12/11 states she was going to get more information regarding hospice, unsure of which route she is going to go, and will discuss with the patient 12/11 - IVF dc'd. Continue to hold diuresis 12/12 - Creatinine slightly improved/stable. monitor intake no overt s/s of aspiration with speech today. Continue minced/moist with thin liquids 12/13 - Creatinine stable. No new issues. Refusing new IV reinsertion tolerated breakfast at bedside, met with hospice, and wants to discuss with IPH before choosing 12/14 - stable, will repeat labs in AM encourage PO intake 12/15 - Stable. reviewing dispo options. 12/16 - Creatinine uptrending, deciding between hospice providers Sepsis, unknown etiology Bilateral venous stasis dermatitis, chronic Patient had low-grade fever with associated leukocytosis Blood cx (12/04): 1/ bottles grew Staph Epidermidis Likely skin contaminant, however given patients chronic wounds, he was coverered with IV abx Chronic bilateral lower extremity dermatitis could be source- but do not appear infected IV cefepime/vanc (12/05-12/08) deescalated to IV levaquin (12/09) 12/10 - Leukocytosis resolved. 12/11 - Dressing taken down, with dry cracked skin, sloughing from LLE medial wound, no purulent drainage 12/12 - ID consulted - recommending patient complete 2 weeks of levaquin 12/13 - Switch IV levaquin to oral Wound care instructions updated, continue daily dressing changes Continue oral levaquin for 2 weeks total (12/09-12/23) 12/14 - remains afebrile, stable 12/15 - Dressings changed 12/16 - low grade temps overnight/this morning. No leukocytosis. Tmax: 100.2 no clear source of infxn at this time has been on IV levaquin will check cultures/cxr/urine if spikes fever >100.4 Atrial fibrillation on chronic anticoagulation with RVR NSTEMI secondary to demand ischemia Hypertension Hyperlipidemia Hx of CAD s/p prior PCI continue oral amio and metoprolol and Eliquis IDDM2 ACHS Accu-Chek, SSI hold metformin Hypernatremia, resolved secondary to prerenal / hypovolemia / diuresis and poor intake Nephrology is following Daily Labs VTE: heparin sq Code: Full Dispo: hospice, reviewing options Time Spent Managing Pts Care (In Minutes): 45
--- NOTE | 2024-12-16 20:48 | PN ---
Date of Progress Note: 12/16/2024 Chief Complaint: Acute kidney injury. Subjective: Renal function is plateauing. The patient has nonoliguric urine output. Creatinine lev el improved from 5.1 on admission to 3.1. Review of Systems: Denies chest pain, palpitations. Physical Examination: Lungs: Clear to auscultation bilaterally. Heart: S1, S2. Abdomen: Soft. Extremities: Trace edema. Impression And Plan: 1. Acute on chronic kidney injury. Renal function is plateauing. Serum creatinine stable at 3.1. A void nonsteroidal anti-inflammatory medication. Avoid contrast. The patient previously refused tawanna l replacement therapy. 2. Metabolic encephalopathy, stable. 3. Atrial fibrillation, rate controlled. 4. Hypernatremia, resolved. Encouraged to increase p.o. fluid intake. 5. Fluid overload. Use Lasix as needed. 6. Lower extremity wounds. Continue antibiotics and wound care recommendation from Primary team. STEPHANIE/LORNE Voice ID: [id number] Report ID: [id number]
--- NOTE | 2024-12-17 11:38 | PN ---
Subjective: The patient is lying in bed. No complaints. No new acute events overnight. The patien t denies any headache, nausea, vomiting, chest pain, abdominal pain, constipation, or diarrhea. Objective: Vital Signs: Reviewed. Lungs: Basal crackles. Heart: S1, S2. Regular. Abdomen: Soft, nontender. Bowel sounds present. Extremities: Trace edema. Laboratory Data: Reviewed. Assessment And Plan: 1. Stasis venous ulcer versus sepsis. 2. Diabetes mellitus. 3. Anemia of chronic disease. 4. Leukocytosis, resolved. The patient is off antibiotic. Continue local wound care. We will follow the patient as needed. NF/MODL Voice ID: [id number] Report ID: [id number]
--- NOTE | 2024-12-17 13:23 | P.PN ---
Subjective Date of Service: 12/17/24 Chief Complaint: elevated troponin Patient is more awake and interactive though remained confused. No recorded fever. Patient has been experiencing intermittent fever He is tolerating room air. Physical Examination - Vital Signs Temperature: 100.6 F Blood Pressure: 143/74 Pulse: 98 Respirations: 24 Pulse Ox (%): 92 - Studies Medications List Reviewed: Yes Assessment And Plan - Plan Physical Exam: GEN: Alert, oriented x 1, NAD CV: Regular rate and rhythm, no edema Pulm: Mild scattered Rales, adequate breath sounds bilaterally. Integumentary: Bilateral lower extremity venous stasis dermatitis and xerosis. n o drainage ABD: soft, nontender, nondistended Problem List: KAITLIN on CKD 4 with hypernatremia Acute on chronic diastolic CHF Volume overload Metabolic encephalopathy secondary to above Sepsis, unknown etiology Bilateral venous stasis dermatitis, chronic Atrial fibrillation on chronic anticoagulation with RVR NSTEMI secondary to demand ischemia Hypertension Hyperlipidemia Hx of CAD s/p prior PCI IDDM2 Hypernatremia, resolved KAITLIN on CKD 4 with hypernatremia Acute on chronic diastolic CHF Volume overload Metabolic encephalopathy secondary to above KAITLIN on CKD secondary to prerenal, over diuresis. Patient has consistently refused dialysis Case discussed with Dr. Mitchell. Initially felt patient has very poor prognosis if he does not undergo dialysis. renal fxn has slowly improved, seems to be plateau'ing now, worse than previous baseline he is more awake/alert initially discussions were regarding hospice since patient does not want dialysis at bedside 12/11 states she was going to get more information regarding hospice, unsure of which route she is going to go, and will discuss with the patient 12/11 - IVF dc'd. Continue to hold diuresis 12/12 - Creatinine slightly improved/stable. monitor intake no overt s/s of aspiration with speech today. Continue minced/moist with thin liquids 12/13 - Creatinine stable. No new issues. Refusing new IV reinsertion tolerated breakfast at bedside, met with hospice, and wants to discuss with IPH before choosing 12/14 - stable, will repeat labs in AM encourage PO intake 12/15 - Stable. reviewing dispo options. 12/16 - Creatinine uptrending, deciding between hospice providers 12/17 No immediate need for dialysis per nephrology. BUN and creatinine have improved and mental status has improved. Creatinine however has started trending up. Patient slated for home with hospice. Diet as tolerated. Sepsis, unknown etiology Bilateral venous stasis dermatitis, chronic Patient had low-grade fever with associated leukocytosis Blood cx (12/04): 1/4 bottles grew Staph Epidermidis Likely skin contaminant, however given patients chronic wounds, he was coverered with IV abx Chronic bilateral lower extremity dermatitis could be source- but do not appear infected IV cefepime/vanc (12/05-12/08) deescalated to IV levaquin (12/09) 12/10 - Leukocytosis resolved. 12/11 - Dressing taken down, with dry cracked skin, sloughing from LLE medial wound, no purulent drainage 12/12 - ID consulted - recommending patient complete 2 weeks of levaquin 12/13 - Switch IV levaquin to oral Wound care instructions updated, continue daily dressing changes Continue oral levaquin for 2 weeks total (12/09-12/23) 12/14 - remains afebrile, stable 12/15 - Dressings changed 12/16 - low grade temps overnight/this morning. No leukocytosis. Tmax: 100.2 no clear source of infxn at this time has been on IV levaquin will check cultures/cxr/urine if spikes fever >100. 12/17 Patient is more interactive and tolerating room air. He continues to have intermittent fever. Patient is on Levaquin for isolated Staph epidermidis in 1 out of 4 blood culture bottles. Add oral Zyvox. Patient made DNR by spouse. Patient is planning for home with hospice. Social service consulted to assist with hospice arrangements. Atrial fibrillation on chronic anticoagulation with RVR NSTEMI secondary to demand ischemia Hypertension Hyperlipidemia Hx of CAD s/p prior PCI continue oral amio and metoprolol and Eliquis IDDM2 ACHS Accu-Chek, SSI Metformin is on hold Hypernatremia, resolved secondary to prerenal / hypovolemia / diuresis and poor intake Nephrology is following Daily Labs VTE: heparin sq Code: Full Dispo: Home with hospice.
[2024-12-17] MEDS: LINEZOLID 600 MG TAB PO SCH (14:30)
--- NOTE | 2024-12-17 21:43 | PN ---
Date of Progress Note: 12/17/2024 Chief Complaint: Acute kidney injury. Subjective: Renal function has improved. The patient has advanced chronic kidney disease. The flaquito ent refused dialysis, IV fluids. Renal function is plateauing, and serum creatinine improved from 5. 1 to 3.1. Review of Systems: No new complaints. Physical Examination: Lungs: Clear to auscultation bilaterally. Heart: S1, S2. Abdomen: Soft. Extremities: Trace edema. Impression And Plan: 1. Acute on chronic kidney injury. Renal function is plateauing. Serum creatinine stable. Avoid no nsteroidal anti-inflammatory medication. 2. Metabolic encephalopathy, per Primary Team. 3. Atrial fibrillation, rate controlled. 4. Fluid overload. Lasix as needed. EB/MODL Voice ID: [id number] Report ID: [id number]
[2024-12-18 06:35] LABS: Absolute Basophils 0.1 K/uL (0-0.5); Absolute Eosinophils 0.1 K/uL (0-0.5); Absolute Lymphocytes (CBC) 1.6 K/uL (0.7-4.9); Absolute Monocytes 1.4 K/uL (0.1-1.3); Absolute Neutrophil 12.1 K/uL (1.8-8.0); Basophils % 0.7 % (0-1.3); Eosinophils % 0.7 % (0-4.4); Hematocrit 36.1 % (39.6-49.0); Hemoglobin 11.4 g/dL (13.6-17.9); Lymphocytes % 10.5 % (15.3-44.8); MCH 26.1 pg (27.0-35.0); MCHC 31.7 g/dL (32.0-36.0); MCV 82.5 fL (80-100); MPV 7.6 fL (7.6-11.3); Monocytes % 9.1 % (3.3-12.3); Platelets 369 thou/uL (152-406); RBC Red Blood Cell Count 4.37 M/uL (4.33-5.43)
[2024-12-18 07:01] LABS: Anion Gap 12.8 mEq/L (5.0-15.0); Magnesium 2.2 mg/dL (1.6-2.4); Potassium 4.8 mEq/L (3.5-5.1)
[2024-12-18] MEDS: D5W 1,000 ML IV SCH (11:44)
--- NOTE | 2024-12-18 12:20 | PN ---
Date of Progress Note: 12/18/2024 Subjective: The patient was admitted with acute kidney injury on advanced chronic kidney disease. The patient did not require dialysis. The patient was dehydrated, started on hydration. Hypernatremia resolved. Physical Examination: Vital Signs: Blood pressure 162/80, pulse of 85, afebrile. Chest: Clear to auscultation. Heart: S1, S2. Systolic murmur. Abdomen: Soft nontender. Extremities: No edema. Neuro: The patient is sleepy. No focality. Laboratory Data: WBC 15.4, hemoglobin 11.4. Sodium 147, potassium 4.8, bicarb 18, BUN 62, creatinine 4.4, calcium 9.2. Current Medications: The patient is on include: 1. Levofloxacin. 2. Linezolid. Assessment And Plan: 1. Acute kidney injury on advanced chronic kidney disease, nonoliguric, normal volume to the dry side currently. I am going to go ahead and start the patient on gentle hydration and we will follow up. 2. Hypertension, not controlled. The patient has poor intake. I am going to place the patient on clonidine patch. 3. Staphylococcus bacteremia. The patient was started on Levaquin. We will follow up with primary. 4. Altered mental status, possible secondary to encephalopathy, metabolic. We will follow up with primary. time spent examining the patient [id number] reviewing data lab and the radiology placing order discussing the case with the patient discussing the case with the staff nurse icu resource team including hospitalist and nursing staff more than 55-minute OSVALDO Voice ID: [id number] Report ID: [id number] SHANTANU
--- NOTE | 2024-12-18 12:40 | PN ---
Subjective: The patient is lying in bed. No new acute event. Refusing all treatments at this time. Objective: Vital Signs: Temperature 98, pulse 85, respiration 18, blood pressure 172/78. Lungs: Basal crackles. Heart: S1, S2. Regular. Abdomen: Soft, nontender. Bowel sounds present. Extremities: No edema. Laboratory Data: WBC 15.4, hemoglobin 11.4, platelets are 369. Chemistry: BUN of 62, creatinine 4.4 . The patient is not agreeing to dialysis, according to the staff, and refusing IV line. Assessment And Plan: 1. End-stage renal disease. The patient is refusing treatment. Consider comfort care. 2. Stasis venous ulcer. 3. Diabetes mellitus. 4. Leukocytosis as the patient is refusing treatment. 5. Anemia of chronic disease. Prognosis guarded. We will follow the patient as needed. NF/MODL Voice ID: [id number] Report ID: [id number]
--- NOTE | 2024-12-18 13:58 | P.PN ---
Subjective Date of Service: 12/18/24 Chief Complaint: elevated troponin Patient mental status appears to wax and wane. Staff report patient was pocketing food in his mouth yesterday during feeding Patient has intermittent low-grade fever He is requiring oxygen again. Physical Examination - Vital Signs Temperature: 100.8 F Blood Pressure: 164/81 Pulse: 100 Respirations: 20 Pulse Ox (%): 96 - Studies Medications List Reviewed: Yes Assessment And Plan - Plan Physical Exam: GEN: Alert, oriented x 1, NAD CV: Regular rate and rhythm, no edema Pulm: Mild scattered Rales, adequate breath sounds bilaterally. Integumentary: Bilateral lower extremity venous stasis dermatitis and xerosis. no drainage ABD: soft, nontender, nondistended Problem List: KAITLIN on CKD 4 with hypernatremia Acute on chronic diastolic CHF Volume overload Metabolic encephalopathy secondary to above Sepsis, unknown etiology Bilateral venous stasis dermatitis, chronic Atrial fibrillation on chronic anticoagulation with RVR NSTEMI secondary to demand ischemia Hypertension Hyperlipidemia Hx of CAD s/p prior PCI IDDM2 Hypernatremia, resolved KAITLIN on CKD 4 with hypernatremia Acute on chronic diastolic CHF Volume overload Metabolic encephalopathy secondary to above KAITLIN on CKD secondary to prerenal, over diuresis. Patient has consistently refused dialysis Case discussed with Dr. Mitchell. Initially felt patient has very poor prognosis if he does not undergo dialysis. renal fxn has slowly improved, seems to be plateau'ing now, worse than previous baseline he is more awake/alert initially discussions were regarding hospice since patient does not want dialysis at bedside 12/11 states she was going to get more information regarding hospice, unsure of which route she is going to go, and will discuss with the patient 12/11 - IVF dc'd. Continue to hold diuresis 12/12 - Creatinine slightly improved/stable. monitor intake no overt s/s of aspiration with speech today. Continue minced/moist with thin liquids 12/13 - Creatinine stable. No new issues. Refusing new IV reinsertion tolerated breakfast at bedside, met with hospice, and wants to discuss with IPH before choosing 12/14 - stable, will repeat labs in AM encourage PO intake 12/15 - Stable. reviewing dispo options. 12/16 - Creatinine uptrending, deciding between hospice providers 12/17 No immediate need for dialysis per nephrology. BUN and creatinine have improved and mental status has improved. Creatinine however has started trending up. Patient slated for home with hospice. Diet as tolerated. Sepsis, unknown etiology Bilateral venous stasis dermatitis, chronic Patient had low-grade fever with associated leukocytosis Blood cx (12/04): 1/ bottles grew Staph Epidermidis Likely skin contaminant, however given patients chronic wounds, he was coverered with IV abx Chronic bilateral lower extremity dermatitis could be source- but do not appear infected IV cefepime/vanc (12/05-12/08) deescalated to IV levaquin (12/09) 12/10 - Leukocytosis resolved. 12/11 - Dressing taken down, with dry cracked skin, sloughing from LLE medial wound, no purulent drainage 12/12 - ID consulted - recommending patient complete 2 weeks of levaquin 12/13 - Switch IV levaquin to oral Wound care instructions updated, continue daily dressing changes Continue oral levaquin for 2 weeks total (12/09-12/23) 12/14 - remains afebrile, stable 12/15 - Dressings changed 12/16 - low grade temps overnight/this morning. No leukocytosis. Tmax: 100.2 no clear source of infxn at this time has been on IV levaquin will check cultures/cxr/urine if spikes fever >100. 12/17 Patient is more interactive and tolerating room air. He continues to have intermittent fever. Patient is on Levaquin for isolated Staph epidermidis in 1 out of 4 blood culture bottles. Add oral Zyvox. Patient made DNR by spouse. Patient is planning for home with hospice. Social service consulted to assist with hospice arrangements. 12/17 Patient mental status waxes and wanes, less responsive today compared to yesterday. Continue current antibiotics. Patient is appropriate for hospice Social service is following and assisting with arrangement for hospice. Atrial fibrillation on chronic anticoagulation with RVR NSTEMI secondary to demand ischemia Hypertension Hyperlipidemia Hx of CAD s/p prior PCI continue oral amio and metoprolol and Eliquis if patient can tolerate p.o. IDDM2 ACHS Accu-Chek, SSI Metformin is on hold Hypernatremia secondary to prerenal / hypovolemia / diuresis and poor intake Nephrology is following Daily Labs VTE: heparin sq Code: Full Dispo: Home with hospice.
[2024-12-18] MEDS: CLONIDINE 0.2 MG/PATCH TD SCH (14:38)
[2024-12-19] MEDS: METOPROLOL TARTRATE 5 MG/5 ML INJ IV PRN (01:52)
[2024-12-19 05:22] LABS: Absolute Basophils 0.1 K/uL (0-0.5); Absolute Eosinophils 0.1 K/uL (0-0.5); Absolute Lymphocytes (CBC) 1.9 K/uL (0.7-4.9); Absolute Monocytes 1.3 K/uL (0.1-1.3); Absolute Neutrophil 13.7 K/uL (1.8-8.0); Basophils % 0.7 % (0-1.3); Eosinophils % 0.7 % (0-4.4); Hematocrit 36.1 % (39.6-49.0); Hemoglobin 11.3 g/dL (13.6-17.9); Lymphocytes % 11.1 % (15.3-44.8); MCH 26.2 pg (27.0-35.0); MCHC 31.4 g/dL (32.0-36.0); MCV 83.5 fL (80-100); MPV 7.5 fL (7.6-11.3); Monocytes % 7.3 % (3.3-12.3); Neutrophils % 80.2 % (41.7-73.7); Platelets 319 thou/uL (152-406); RBC Red Blood Cell Count 4.32 M/uL (4.33-5.43); Red Cell Distribution Width 17.9 % (12.1-15.2)
[2024-12-19] MEDS: ACETAMINOPHEN 650MG/RECT SUPP PR PRN (09:12)
[2024-12-19] MEDS ORDERED: VANCOMYCIN 1 GM in NA CHLORIDE 0.9% 250 ML IVPB SCH (11:00)
[2024-12-19] MEDS: Meropenem 500 MG in NA CHLORIDE 0.9% 100 ML IV SCH (12:10)
[2024-12-19] MEDS: VANCOMYCIN 1.5 GM in NA CHLORIDE 0.9% 500 ML IVPB ONE (12:40)
--- NOTE | 2024-12-19 14:29 | P.PN ---
Subjective Date of Service: 12/19/24 Chief Complaint: elevated troponin Patient mental status has been declining over the last couple of days. Nursing staff report poor oral intake. Patient has been experiencing intermittent fever He is requiring oxygen again. Physical Examination - Vital Signs Temperature: 100 F Blood Pressure: 143/79 Pulse: 76 Respirations: 18 Pulse Ox (%): 95 - Studies Medications List Reviewed: Yes Assessment And Plan - Plan Physical Exam: GEN: Alert, oriented x 1, NAD CV: Regular rate and rhythm, no edema Pulm: Mild scattered Rales, adequate breath sounds bilaterally. Integumentary: Bilateral lower extremity venous stasis dermatitis and xerosis. no drainage ABD: soft, nontender, nondistended Problem List: KAITLIN on CKD 4 with hypernatremia Acute on chronic diastolic CHF Volume overload Metabolic encephalopathy secondary to above Sepsis, unknown etiology Bilateral venous stasis dermatitis, chronic Atrial fibrillation on chronic anticoagulation with RVR NSTEMI secondary to demand ischemia Hypertension Hyperlipidemia Hx of CAD s/p prior PCI IDDM2 Hypernatremia, resolved KAITLIN on CKD 4 with hypernatremia Acute on chronic diastolic CHF Volume overload Metabolic encephalopathy secondary to above KAITLIN on CKD secondary to prerenal, over diuresis. Patient has consistently refused dialysis Case discussed with Dr. Mitchell. Initially felt patient has very poor prognosis if he does not undergo dialysis. renal fxn has slowly improved, seems to be plateau'ing now, worse than previous baseline he is more awake/alert initially discussions were regarding hospice since patient does not want dialysis at bedside 12/11 states she was going to get more information regarding hospice, unsure of which route she is going to go, and will discuss with the patient 12/11 - IVF dc'd. Continue to hold diuresis 12/12 - Creatinine slightly improved/stable. monitor intake no overt s/s of aspiration with speech today. Continue minced/moist with thin liquids 12/13 - Creatinine stable. No new issues. Refusing new IV reinsertion tolerated breakfast at bedside, met with hospice, and wants to discuss with IPH before choosing 12/14 - stable, will repeat labs in AM encourage PO intake 12/15 - Stable. reviewing dispo options. 12/16 - Creatinine uptrending, deciding between hospice providers 12/17 No immediate need for dialysis per nephrology. BUN and creatinine have improved and mental status has improved. Creatinine however has started trending up. Patient slated for home with hospice. Diet as tolerated. 12/19 Serum creatinine along with serum sodium are worsening. Nephrology is following IV hydration per nephrology. Sepsis, unknown etiology Bilateral venous stasis dermatitis, chronic Patient had low-grade fever with associated leukocytosis Blood cx (12/04): 1/4 bottles grew Staph Epidermidis Likely skin contaminant, however given patients chronic wounds, he was coverered with IV abx Chronic bilateral lower extremity dermatitis could be source- but do not appear infected IV cefepime/vanc (12/05-12/08) deescalated to IV levaquin (12/09) 12/10 - Leukocytosis resolved. 12/11 - Dressing taken down, with dry cracked skin, sloughing from LLE medial wound, no purulent drainage 12/12 - ID consulted - recommending patient complete 2 weeks of levaquin 12/13 - Switch IV levaquin to oral Wound care instructions updated, continue daily dressing changes Continue oral levaquin for 2 weeks total (12/09-12/23) 12/14 - remains afebrile, stable 12/15 - Dressings changed 12/16 - low grade temps overnight/this morning. No leukocytosis. Tmax: 100.2 no clear source of infxn at this time has been on IV levaquin will check cultures/cxr/urine if spikes fever >100. 12/17 Patient is more interactive and tolerating room air. He continues to have intermittent fever. Patient is on Levaquin for isolated Staph epidermidis in 1 out of 4 blood culture bottles. Add oral Zyvox. Patient made DNR by spouse. Patient is planning for home with hospice. Social service consulted to assist with hospice arrangements. 12/18 Patient mental status waxes and wanes, less responsive today compared to yesterday. Continue current antibiotics. Patient is appropriate for hospice Social service is following and assisting with arrangement for hospice. 12/19 Mental status is declining. Patient with decreased oral intake. He has intermittent fever. IV access established Start IV antibiotics-meropenem and vancomycin as we wait for decision on hospice. Nephrology seen the patient and started on IV hydration. Follow blood cultures. Social service working with patient's spouse for home hospice arrangements. Atrial fibrillation on chronic anticoagulation with RVR NSTEMI secondary to demand ischemia Hypertension Hyperlipidemia Hx of CAD s/p prior PCI continue oral amio and metoprolol and Eliquis if patient can tolerate p.o. IDDM2 ACHS Accu-Chek, SSI Metformin is on hold Hypernatremia secondary to prerenal / hypovolemia / diuresis and poor intake Nephrology is following Daily Labs 12/19 Hypernatremia is worsening. Likely secondary to dehydration VTE: heparin sq Code: Full Dispo: Home with hospice.
--- NOTE | 2024-12-19 15:03 | RAD REPORT ---
Procedure: Chest Single View HISTORY: Cough COMPARISON: December 09, 2024 FINDINGS: Mild bilateral pulmonary opacities No significant pleural effusion noted. The heart is mildly to moderately enlarged. IMPRESSION: No acute abnormality is displayed.
[2024-12-19 22:35] VITALS: O2SAT 94
[2024-12-20 01:16] VITALS: BMI 21.4
[2024-12-20 08:12] LABS: Absolute Basophils 0.1 K/uL (0-0.5); Absolute Eosinophils 0.3 K/uL (0-0.5); Absolute Lymphocytes (CBC) 1.5 K/uL (0.7-4.9); Absolute Monocytes 1.4 K/uL (0.1-1.3); Absolute Neutrophil 14.8 K/uL (1.8-8.0); Anion Gap 9.5 mEq/L (5.0-15.0); Basophils % 0.4 % (0-1.3); Eosinophils % 1.9 % (0-4.4); Hematocrit 34.6 % (39.6-49.0); Hemoglobin 10.8 g/dL (13.6-17.9); Lymphocytes % 8.5 % (15.3-44.8); MCHC 31.2 g/dL (32.0-36.0); MCV 83.4 fL (80-100); MPV 8.2 fL (7.6-11.3); Neutrophils % 81.2 % (41.7-73.7); Nucleated Red Blood Cells % 0.1 % (0-0); Platelets 250 thou/uL (152-406); Potassium 4.5 mEq/L (3.5-5.1); RBC Red Blood Cell Count 4.14 M/uL (4.33-5.43); Red Cell Distribution Width 18.1 % (12.1-15.2)
--- NOTE | 2024-12-20 12:07 | PN ---
Subjective: The patient is lying in bed, possible transfer to hospice care as the patient is refusin g all his treatment. Objective: Vital Signs: Reviewed. Lungs: Basal crackles. Heart: S1, S2. Regular. Abdomen: Soft, nontender. Bowel sounds present. Extremities: 1+ edema with wounds noted. Laboratory Data: Reviewed. Assessment And Plan: 1. Stasis dermatitis, cellulitis, and stasis ulcers. 2. Leukocytosis. Because of the patient is not getting any treatment at this time, I agree with hospice and comfort ca re as the patient is refusing dialysis and other treatment modalities. NF/MODL Voice ID: [id number] Report ID: [id number]
[2024-12-20 12:44] VITALS: BP 120/67; TEMP 98.8
--- NOTE | 2024-12-20 14:35 | P.PN ---
Subjective Date of Service: 12/20/24 Chief Complaint: elevated troponin Patient mental status unchanged from yesterday but overall declined. Nursing staff report patient is not eating. No fever today. He is requiring oxygen. Physical Examination - Vital Signs Temperature: 98.8 F Blood Pressure: 120/67 Pulse: 68 Respirations: 14 Pulse Ox (%): 94 - Studies Medications List Reviewed: Yes Assessment And Plan - Plan Physical Exam: GEN: Alert, oriented x 1, NAD CV: Regular rate and rhythm, no edema Pulm: Mild scattered Rales, adequate breath sounds bilaterally. Integumentary: Bilateral lower extremity venous stasis dermatitis and xerosis. no drainage ABD: soft, nontender, nondistended Problem List: KAITLIN on CKD 4 with hypernatremia Acute on chronic diastolic CHF Volume overload Metabolic encephalopathy secondary to above Sepsis, unknown etiology Bilateral venous stasis dermatitis, chronic Atrial fibrillation on chronic anticoagulation with RVR NSTEMI secondary to demand ischemia Hypertension Hyperlipidemia Hx of CAD s/p prior PCI IDDM2 Hypernatremia, resolved KAITLIN on CKD 4 with hypernatremia Acute on chronic diastolic CHF Volume overload Metabolic encephalopathy secondary to above KAITLIN on CKD secondary to prerenal, over diuresis. Patient has consistently refused dialysis Case discussed with Dr. Mitchell. Initially felt patient has very poor prognosis if he does not undergo dialysis. renal fxn has slowly improved, seems to be plateau'ing now, worse than previous baseline he is more awake/alert initially discussions were regarding hospice since patient does not want dialysis at bedside 12/11 states she was going to get more information regarding hospice, unsure of which route she is going to go, and will discuss with the patient 12/11 - IVF dc'd. Continue to hold diuresis 12/12 - Creatinine slightly improved/stable. monitor intake no overt s/s of aspiration with speech today. Continue minced/moist with thin liquids 12/13 - Creatinine stable. No new issues. Refusing new IV reinsertion tolerated breakfast at bedside, met with hospice, and wants to discuss with IPH before choosing 12/14 - stable, will repeat labs in AM encourage PO intake 12/15 - Stable. reviewing dispo options. 12/16 - Creatinine uptrending, deciding between hospice providers 12/17 No immediate need for dialysis per nephrology. BUN and creatinine have improved and mental status has improved. Creatinine however has started trending up. Patient slated for home with hospice. Diet as tolerated. 12/19 Serum creatinine along with serum sodium are worsening. Nephrology is following IV hydration per nephrology. Sepsis, unknown etiology Bilateral venous stasis dermatitis, chronic Patient had low-grade fever with associated leukocytosis Blood cx (12/04): 1/4 bottles grew Staph Epidermidis Likely skin contaminant, however given patients chronic wounds, he was coverered with IV abx Chronic bilateral lower extremity dermatitis could be source- but do not appear infected IV cefepime/vanc (12/05-12/08) deescalated to IV levaquin (12/09) 12/10 - Leukocytosis resolved. 12/11 - Dressing taken down, with dry cracked skin, sloughing from LLE medial wound, no purulent drainage 12/12 - ID consulted - recommending patient complete 2 weeks of levaquin 12/13 - Switch IV levaquin to oral Wound care instructions updated, continue daily dressing changes Continue oral levaquin for 2 weeks total (12/09-12/23) 12/14 - remains afebrile, stable 12/15 - Dressings changed 12/16 - low grade temps overnight/this morning. No leukocytosis. Tmax: 100.2 no clear source of infxn at this time has been on IV levaquin will check cultures/cxr/urine if spikes fever >100. 12/17 Patient is more interactive and tolerating room air. He continues to have intermittent fever. Patient is on Levaquin for isolated Staph epidermidis in 1 out of 4 blood culture bottles. Add oral Zyvox. Patient made DNR by spouse. Patient is planning for home with hospice. Social service consulted to assist with hospice arrangements. 12/18 Patient mental status waxes and wanes, less responsive today compared to yesterday. Continue current antibiotics. Patient is appropriate for hospice Social service is following and assisting with arrangement for hospice. 12/19 Mental status is declining. Patient with decreased oral intake. He has intermittent fever. IV access established Start IV antibiotics-meropenem and vancomycin as we wait for decision on hospice. Nephrology seen the patient and started on IV hydration. Follow blood cultures. Social service working with patient's spouse for home hospice arrangements. Atrial fibrillation on chronic anticoagulation with RVR NSTEMI secondary to demand ischemia Hypertension Hyperlipidemia Hx of CAD s/p prior PCI continue oral amio and metoprolol and Eliquis if patient can tolerate p.o. IDDM2 ACHS Accu-Chek, SSI Metformin is on hold Hypernatremia secondary to prerenal / hypovolemia / diuresis and poor intake Nephrology is following Daily Labs 12/19 Hypernatremia is worsening. Likely secondary to dehydration 12/20 No major changes from yesterday. Patient remains lethargic, hypernatremic and not eating. Continue IV antibiotics. Continue IV D5 water until patient accepted to hospice. VTE: heparin sq Code: Full Dispo: Home with hospice.
--- NOTE | 2024-12-20 15:22 | P.DS ---
Admission Date: 12/04/24 Discharge Date: 12/20/24 Disposition: HOSPICE-HOME Reason for Admission: elevated troponin Hospital Course: Problem List: KAITLIN on CKD 4 with hypernatremia Acute on chronic diastolic CHF Volume overload Metabolic encephalopathy secondary to above Sepsis, unknown etiology Bilateral venous stasis dermatitis, chronic Atrial fibrillation on chronic anticoagulation with RVR NSTEMI secondary to demand ischemia Hypertension Hyperlipidemia Hx of CAD s/p prior PCI IDDM2 Hypernatremia, resolved Patient presented with shortness of breath, fever associated with altered mentation. He was found to have an KAITILN (creatinine 5.2) on admission, associated with leukocytosis (16.1), elevated CRP (124). Patient refused hemodialysis previous hospitalization and this hospitalization. He was adamant on dialysis. Patient renal issue did not respond much to medical treatment. He developed altered mental status secondary to uremia and hypernatremia, poor oral intake. Patient had intermittent fever and was on several days of antibiotics. 1 out of 4 blood culture bottles grew Staph epidermidis. Repeat blood culture did not yield any growth despite intermittent fever. According to nephrology Dr. Mitchell, patient has very poor prognosis if he does not undergo dialysis and patient has been known to consistently refuse dialysis in the past. Discussed patients condition at length with family. Given his poor clinical condition, failure to thrive, family opted for hospice. Home hospice has been arranged. Patient is discharged to home with hospice. Patient's spouse made him DNR and completed out of hospital DNR. Vital Signs/Physical Exam: Temp Pulse Resp BP Pulse Ox 98.8 F 68 14 120/67 94 12/20/24 14:35 12/20/24 14:35 12/20/24 14:35 12/20/24 14:35 12/20/24 14:35 General: Other (Lethargic. Somnolent) Neck: JVD not distended Respiratory: Crackles/rales (Bilateral) Cardiovascular: Regular rate/rhythm Gastrointestinal: Normal bowel sounds, Non-distended Neurological: Other (Somnolent, moves all extremities spontaneously.) Laboratory Data at Discharge: WBC 18.20 thou/uL (4.3-10.9) H 12/20/24 07:36 Hgb 10.8 g/dL (13.6-17.9) L 12/20/24 07:36 Hct 34.6 % (39.6-49.0) L 12/20/24 07:36 Plt Count 250 thou/uL (152-406) 12/20/24 07:36 PT 19.8 SECONDS (10.0-13.0) H 12/04/24 18:30 INR 1.79 12/04/24 18:30 APTT 42.6 SECONDS (24.3-36.9) H 12/04/24 18:30 Sodium 148 mEq/L (136-145) H 12/20/24 07:36 Potassium 4.5 mEq/L (3.5-5.1) 12/20/24 07:36 BUN 72 mg/dL (7-18) H 12/20/24 07:36 Creatinine 4.34 mg/dL (0.70-1.30) H 12/20/24 07:36 Glucose 137 mg/dL (74-106) H 12/20/24 07:36 Phosphorus 3.4 mg/dL (2.5-4.9) 12/15/24 05:10 Magnesium 2.2 mg/dL (1.6-2.4) 12/18/24 06:06 Total Bilirubin 0.5 mg/dL (0.2-1.0) 12/11/24 05:57 AST 15 U/L (15-37) 12/11/24 05:57 ALT 15 U/L (16-61) L 12/11/24 05:57 Alkaline Phosphatase 53 U/L (45-117) 12/11/24 05:57 Home Medications: Ascorbic Acid [Vitamin C] 500 mg PO DAILY 01/30/24 Aspirin [Aspirin EC] 81 mg PO DAILY 01/30/24 Atorvastatin Calcium [Lipitor*] 80 mg PO BEDTIME 01/30/24 Cyanocobalamin (Vitamin B-12) [Vitamin B-12] 1,000 mcg PO DAILY 01/30/24 Empagliflozin [Jardiance] 25 mg PO DAILY 01/30/24 Ferrous Sulfate 324 mg PO DAILY 01/30/24 Sennosides [Senna] 8.6 mg PO DAILY 01/30/24 Ergocalciferol (Vitamin D2) [Vitamin D2] 50,000 unit PO EVERY 7TH DAY 05/09/24 Melatonin 5 mg PO BEDTIME 05/09/24 Metoprolol Succinate [Toprol Xl*] 50 mg PO BEDTIME 05/09/24 Vits A and D/White Pet/Lanolin [A and D Ointment] 1 laquita TP BID #1 tube 05/10/24 Hydralazine [Apresoline*] 25 mg PO TID 30 Days #90 tab 08/24/24 Sildenafil Citrate [Revatio*] 20 mg PO BID 30 Days #60 tab 08/24/24 Amiodarone HCl [Cordarone*] 200 mg PO BID #60 tab 11/20/24 Apixaban [Eliquis *] 2.5 mg PO BID #60 tab 11/20/24 Calcitrol [Rocaltrol*] 0.25 mcg PO Q48H #15 cap 11/20/24 Fluocinonide [Lidex] 1 appl TOP BID #1 tube 11/20/24 Mupirocin Oint [Bactroban 2% Ointment*] 1 appl TOP DAILY #1 tube 11/20/24 Bumetanide [Bumex*] 1 mg PO DAILY #30 tab 11/23/24 Medihoney [Medihoney Woundcare Gel*] 1 appl TOP DAILY #1 tube 12/20/24 New Medications: Medihoney [Medihoney Woundcare Gel*] 1 appl TOP DAILY #1 tube Physician Discharge Instructions: Physician discharge instructions: Patient presented with shortness of breath, fever associated with altered mentation. He was found to have an KAITLIN (creatinine 5.2) on admission, associated with leukocytosis (16.1), elevated CRP (124). Nephrology was consulted. Case was discussed with Dr. Mitchell. Patient has very poor prognosis if he does not undergo dialysis and patient has been known to consistently refuse dialysis in the past. Discussed patients condition at length with family. Given his poor clinical condition, failure to thrive, discussed possibly setting up hospice with family to which they were receptive of the idea. In regards to fever/leukocytosis, no clear source of infection. Blood cultures grew staph epidermidis in 1/4 bottles. Suspect skin contaminant, however given patients presentation of symptoms in addition to his chronic bilateral lower extremity wounds/dermaitits, patient was started on IV antibiotics to cover possible infection. IV cefepime/vanc was deescalated to IV levaquin on 12/09 and patient continued to improve. Medications: Follow up: PCP 3-5 days Please call to schedule / confirm appointments Activity: Fall precautions Followup: Mitchel Barrera MD [OUTSIDE PHYSICIAN] - 1-2 Weeks Time spent managing pt's care (in minutes): 42
[2024-12-22] MEDS ORDERED: VANCOMYCIN 1 GM in NA CHLORIDE 0.9% 250 ML IVPB SCH (12:00)
--- NOTE | 2024-12-26 08:53 | EKG ---
Test Date: 2024-12-19 Test Time: 00:16:41 Grinder Dresser: AZAM MEASUREMENT RESULTS: Intervals: Rate: 173 W[place]: QRSD: 88 QT: 276 QTc: 468 Drake: P: W[place]: QRS: -29 T: 67 INTERPRETIVE STATEMENTS: Atrial fibrillation with rapid ventricular response Low voltage QRS Abnormal ECG Compared to ECG 12/04/2024 15:23:55 Low QRS voltage now present Sinus rhythm no longer present T-wave abnormality no longer present Possible ischemia no longer present Prolonged QT interval no longer present Electronically Signed On 12-26-24 08:42:11 CDT by Faraz Duque
== END 2024-12-20 17:09 | disposition hospice, home (50) | DRG 871 ==
LOC: ER 14:19 → ERHOLD 21:51 → 2ND 12-05 20:08
PROVIDERS: ADMIT Family Medicine; ATTEND Internal Medicine
PROC: 0T9B70Z Drainage of Bladder with Drainage Device, Via Natural or Artificial Opening (ICD-10-PCS; principal; 2024-12-04)
DX: A41.1 Sepsis due to other specified staphylococcus (principal); G93.41 Metabolic encephalopathy; I50.33 Acute on chronic diastolic (congestive) heart failure; I21.A1 Myocardial infarction type 2; N17.0 Acute kidney failure with tubular necrosis; N18.6 End stage renal disease; J44.0 Chronic obstructive pulmonary disease with (acute) lower respiratory infection; E87.0 Hyperosmolality and hypernatremia; I48.20 Chronic atrial fibrillation, unspecified; I13.2 Hypertensive heart and chronic kidney disease with heart failure and with stage 5 chronic kidney disease, or end stage renal disease; L03.116 Cellulitis of left lower limb; L03.115 Cellulitis of right lower limb; R65.20 Severe sepsis without septic shock; E11.22 Type 2 diabetes mellitus with diabetic chronic kidney disease; E11.40 Type 2 diabetes mellitus with diabetic neuropathy, unspecified; D63.1 Anemia in chronic kidney disease; E87.5 Hyperkalemia; E86.0 Dehydration; I27.20 Pulmonary hypertension, unspecified; E78.00 Pure hypercholesterolemia, unspecified; I87.2 Venous insufficiency (chronic) (peripheral); F03.90 Unspecified dementia, unspecified severity, without behavioral disturbance, psychotic disturbance, mood disturbance, and anxiety; Z66 Do not resuscitate; Z51.5 Encounter for palliative care; Z88.0 Allergy status to penicillin; Z95.5 Presence of coronary angioplasty implant and graft; Z80.0 Family history of malignant neoplasm of digestive organs; Z79.01 Long term (current) use of anticoagulants; Z79.82 Long term (current) use of aspirin; Z79.899 Other long term (current) drug therapy; Z87.891 Personal history of nicotine dependence
CPT/HCPCS: 36415; 70450; 71045; 76770; 80048; 80053; 80069; 81001; 82947; 83605; 83735; 83880; 84145; 84443; 84484; 85025; 85610; 85730; 86140; 87040; 87077; 87186; 87205; 92526; 92610; 93005; 94760; 96365; 96366; 99285; J0360; J0692; J1644; J3370; J3411; J3475; J7030; J7040; J7050; J7799